=== PATIENT | female | born 1980 | race Caucasian/White ===

== ENCOUNTER 2023-05-12 13:14 | Emergency (ER) | payer OTHER, SELFPAY ==
[2023-05-12 13:31] VITALS: BP 154/104; PULSE 82; RESP 18; TEMP 36.6; O2SAT 97; BMI 54.9
--- NOTE | 2023-05-12 15:59 | ED_ITS ---
HPI - Back Pain/Injury General Chief Complaint: Back Pain/Injury Stated Complaint: BACK PAIN Time Seen by Provider: 05/12/23 15:51 Source: patient Mode of arrival: Wheelchair Limitations: no limitations History of Present Illness HPI Narrative: Patient presents to emergency department complaining of Pain. Patient states pain is worse today. Pain radiates down to the sacroiliac junction on the right side. Patient also states she has a hernia in the middle of her abdomen. She has nausea but denies any vomiting, or diarrhea. Patient has not seen a surgeon. Patient denies any hematuria, dysuria. She denies any fever, chills, cough, chest, shortness of breath. He does not radiate anywhere. She denies any rashes. She denies any trauma. She has not taking anything other than Tylenol at home for the pain. Patient has a history of chronic kidney disease. Related Data Previous Rx's Medication Instructions Recorded cyclobenzaprine 10 mg tablet 10 mg PO TID PRN muscle spasm 5 05/12/23 days #14 tabs Allergies Allergy/AdvReac Type Severity Reaction Status Date / Time Penicillins Allergy Intermediate Verified 05/12/23 13:34 Review of Systems ROS Status of ROS 10 or more systems reviewed and unremarkable except as noted in history and below Exam Narrative Exam Narrative: Nurses notes and vital signs reviewed and patient is not hypoxic. General: Nontoxic, Well-appearing and in no apparent distress. Skin: Warm, dry, no pallor noted. No Rash Head: Normocephalic, atraumatic. Neck: Supple, non-tender. Eye: Pupils are equal, round and EOMI. No scleral icterus. Ears, Nose, Mouth, and Throat: TM clear, no posterior oropharynx erythema or nasal mucosal hypertrophy, uvula is mid-line Oral mucosa is moist Cardiovascular: Regular Rate and Rhythm without murmur, gallop or rub. Respiratory: No accessory muscle use or respiratory distress. Lungs are clear to auscultation, no wheezing, rales or rhonchi Chest Wall: no tenderness Back: No midline thoracic or lumbar vertebral tenderness.Right-sided muscle spasms noted. There is no erythema, signs of trauma, infection. There is no crepitance. Range of motion is limited by pain. No CVA tenderness Musculoskeletal: normal ROM, no calf or popliteal tenderness, no lower extremity edema/swelling GI: obese, Abdomen is soft, non-distended. Normal bowel sounds. No masses appreciated. No tenderness to palpation. No rebound, guarding, or rigidity noted. Neurological: A&O x4. No cranial nerve dysfunction observed. No truncal ataxia. Moves all extremities. Sensation intact. Psychiatric: Cooperative and interactive. Normal mood and affect. Constitutional Vital Signs, click to edit/add: Last Vital Signs Temp 98 F 05/12/23 13:31 Pulse 82 05/12/23 13:31 Resp 18 05/12/23 13:31 BP 154/104 H 05/12/23 13:31 Pulse Ox 97 05/12/23 13:31 O2 Del Method Room Air 05/12/23 13:31 Course Vital Signs Vital signs: Vital Signs Temperature 98 F 05/12/23 13:31 Pulse Rate 82 05/12/23 13:31 Respiratory Rate 18 05/12/23 13:31 Blood Pressure 154/104 H 05/12/23 13:31 Pulse Oximetry 97 05/12/23 13:31 Oxygen Delivery Method Room Air 05/12/23 13:31 Temperature 98 F 05/12/23 13:31 Pulse Rate 82 05/12/23 13:31 Respiratory Rate 18 05/12/23 13:31 Blood Pressure 154/104 H 05/12/23 13:31 Pulse Oximetry 97 05/12/23 13:31 Oxygen Delivery Method Room Air 05/12/23 13:31 MDM - Back Pain/Injury MDM Narrative Medical decision making narrative: Patient had an IV established given IV fluids and analgesics. Symptoms improved. Results were discussed with patient. The patient is given a prescription for Flexeril. She is follow-up with her primary care doctor, Surgeon, and kidney doctor. At this time the patient is without objective evidence of an acute process requiring hospitalization or inpatient management. The patient has remained hemodynamically stable. No additional indication for emergent studies at this time. I answered all questions. Discussed discharge instructions including standard anticipatory guidance and what should prompt a return to the emergency department, including if they get worse are not getting better or develops any new or concerning symptoms. I've given them specific time frame in which to follow-up, and who to follow-up with. The patient demonstrates understanding. Patient is nontoxic and stable for discharge with outpatient follow-up. This note was created with the assistance of a speech recognition program. Although the intention is to generate documents that actually reflects the content of the visit, no guarantees can be provided that every mistake has been identified and corrected by editing. Lab Data Attestation: I reviewed the patient's lab results. Labs: Lab Results 05/12/23 05/12/23 Range/Units 15:59 16:20 WBC 7.1 (4.0-11.0) 10^3/uL RBC 5.12 (4.20-5.40) 10^6/uL Hgb 13.2 (12.0-16.0) g/dL Hct 41.4 (36.0-48.0) % MCV 80.9 L (81.0-99.0) fL MCH 25.8 L (26.7-34.0) pg MCHC 31.9 (29.9-35.2) g/dL RDW 15.3 H (11.0-15.0) % Plt Count 291 (150-450) 10^3/uL MPV 9.0 L (9.5-13.5) fL Neut % (Auto) 67.5 (43.0-75.0) % Lymph % (Auto) 23.2 (20.5-60.0) % [place] % (Auto) 4.2 (1.7-12.0) % Eos % (Auto) 4.1 (0.9-7.0) % Baso % (Auto) 0.7 (0.2-2.0) % Neut # (Auto) 4.8 (1.4-6.5) 10^3/uL Lymph # (Auto) 1.6 (1.2-3.8) 10^3/uL [place] # (Auto) 0.3 (0.3-0.8) 10^3/uL Eos # (Auto) 0.3 (0.0-0.7) 10^3/uL Baso # (Auto) 0.1 (0.0-0.1) 10^3/uL Abs Immat Gran (auto) 0.02 (0.00-0.03) 10^3/uL Imm/Tot Granulo (auto) 0.3 (0.0-0.5) % Sodium 137 (136-145) mmol/L Potassium 4.4 (3.5-5.1) mmol/L Chloride 103 (98-107) mmol/L Carbon Dioxide 27.3 (21.0-32.0) mmol/L Anion Gap 11.1 BUN 26.0 H (7.0-18.0) mg/dL Creatinine 2.35 H (0.55-1.02) mg/dL Est GFR ( Amer) 27 L (>=60) Est GFR (Non-Af Amer) 23 L (>=60) BUN/Creatinine Ratio 11.1 Glucose 135 H (74-106) mg/dL Calcium 9.5 (8.5-10.1) mg/dL Total Bilirubin 0.4 (0.2-1.0) mg/dL AST 20 (15-37) U/L ALT 35 (14-59) U/L Alkaline Phosphatase 80 (46-116) U/L Total Protein 8.4 H (6.4-8.2) g/dL Albumin 4.0 (3.4-5.0) g/dL Globulin 4.4 g/dL Albumin/Globulin Ratio 0.9 Urine Color Yellow (YELLOW) Urine Clarity Clear (CLEAR) Urine pH 5.5 (5.0-9.0) Ur Specific [place] 1.025 (1.005-1.025) Urine Protein >=300 A (NEG/TRACE) mg/dL Urine Glucose (UA) Negative (NEGATIVE) mg/dL Urine Ketones Negative (NEGATIVE) mg/dL Urine Occult Blood Negative (NEGATIVE) Urine Nitrite Negative (NEGATIVE) Urine Bilirubin Negative (NEGATIVE) Urine Urobilinogen 0.2 (0.2-1.0) EU/dL Ur Leukocyte Esterase Negative (NEGATIVE) Urine RBC 0-2 (0-2) #/HPF Urine WBC 0-2 A (NONE SEEN) #/HPF Ur Squamous Epith Cells Rare (NONE/RARE) #/LPF Urine Crystals None seen (None Seen) #/HPF Urine Bacteria Trace A (NONE SEEN) #/HPF Urine Casts None seen (NONE SEEN) #/LPF Urine Mucus None seen (NONE SEEN) Ur Culture Indicated? No Discharge Plan Discharge Chief Complaint: Back Pain/Injury Clinical Impression: Back pain, Ventral hernia, Chronic kidney disease (CKD) Patient Disposition: Home, Self-Care Time of Disposition Decision: 17:34 Condition: Good Mode of Transportation: Private Vehicle Prescriptions / Home Meds: New cyclobenzaprine 10 mg tablet 10 mg PO TID PRN (Reason: muscle spasm) 5 Days Qty: 14 0RF Instructions: Chronic Kidney Disease (ED), Flank Pain (ED) Stand Alone Forms: Portal Instructions Referrals: JAYESH DAVE [Primary Care Provider] - 1 week Discharge Date/Time: 05/12/23 17:57
--- NOTE | 2023-05-12 16:01 | CT_ITS ---
[address] [address] Patient Name: GUERRERO LEON MRN: [id number] date: 1980 Sex: F Assigned Patient Location: ER Current Patient Location: ER Accession/Order Number: [id number] Exam Date: 05/12/2023 16:22 Report Date: 05/12/2023 16:56 At the request of: KAIA MCDANIELS Procedure: CT abdomen pelvis wo con EXAMINATION: CT abdomen pelvis wo con, 05/12/2023 4:22 PM EDT HISTORY: abd pain, r flank pain COMPARISON: None. TECHNIQUE: CT scan of the abdomen and pelvis was performed without IV contrast. CT dose reduction technique was used, including Automated Exposure Control. FINDINGS: LOWER CHEST: The visualized lungs are clear. LIVER: There is hepatomegaly and diffuse hepatic steatosis. GALLBLADDER AND BILIARY SYSTEM: Status post cholecystectomy. SPLEEN: 13.3 cm in craniocaudal dimension. PANCREAS: Mild diffuse atrophy of the pancreas. No pancreatic ductal dilatation. ADRENAL GLANDS: Unremarkable. KIDNEYS AND URETERS: Severe atrophy of the left kidney. Moderate to severe atrophy of the right kidney. Both kidneys have a lobulated appearance with multiple lesions which are not adequately characterized on this study. There is a 1.5 cm lesion in the right kidney with peripheral calcification. No ureteral calculus. No hydronephrosis. There is a 2 mm nonobstructing calculus in the left kidney. BLADDER: Under distended. GASTROINTESTINAL TRACT: No evidence of bowel obstruction or colitis. Normal appendix. VASCULATURE: The abdominal aorta is normal in caliber. RETROPERITONEUM: No lymphadenopathy. PERITONEUM/MESENTERY: No abdominal ascites. No free air. PELVIS: No pelvic ascites or lymphadenopathy. BODY WALL: There is a large upper abdominal ventral hernia containing a portion of the transverse colon and small bowel loops. Small to moderate supraumbilical ventral hernia containing fat. There is a large umbilical hernia containing fat and nonobstructed loops of small bowel. BONES: No acute abnormality. CT/CT abdomen pelvis wo con IMPRESSION: 1. Ventral hernias as described. No evidence of bowel obstruction. 2. Nonobstructing 2 mm calculus in the left kidney. Bilateral renal atrophy. 3. Hepatomegaly and diffuse hepatic steatosis. 4. Splenomegaly. Electronically authenticated by: MARIA DEL ROSARIO HERNANDEZ Date: 05/12/2023 16:56
--- NOTE | 2023-05-12 16:01 | PC.NURSE ---
Patient here with multiple complaints. Patient c/o left sided back pain and pain at her hernia. patient states her surgeon will not fix the hernia until she loses weight. patient also states she has vertigo all the time, to where i can barely walk, but was able to drive self here.
[2023-05-12] MEDS: MORPHINE SULFATE 4 MG/ML VIAL IV (16:13)
[2023-05-12 16:27] LABS: Bilirubin Urine NEGATIVE (NEGATIVE); Blood Urine NEGATIVE (NEGATIVE); Clarity Urine CLEAR (CLEAR); Color Urine YELLOW (YELLOW); Glucose Urine UA NEGATIVE (NEGATIVE); Ketones Urine NEGATIVE (NEGATIVE); Leukocyte Esterase Urine NEGATIVE (NEGATIVE); Nitrite Urine NEGATIVE (NEGATIVE); Protein Urine >=300 mg/dL (NEG/TRACE); Specific Gravity Urine 1.025 (1.005-1.025); Urobilinogen Urine 0.2 EU/dL (0.2-1.0); pH Urine 5.5 (5.0-9.0)
[2023-05-12 16:28] LABS: Urine Microscopic Indicated YES
[2023-05-12 16:30] LABS: Basophils Absolute Auto 0.1 10^3/uL (0.0-0.1); Basophils Percent Auto 0.7 % (0.2-2.0); Eosinophils Absolute Auto 0.3 10^3/uL (0.0-0.7); Eosinophils Percent Auto 4.1 % (0.9-7.0); Hematocrit 41.4 % (36.0-48.0); Hemoglobin 13.2 g/dL (12.0-16.0); Immature Granulocytes Abs Auto 0.02 10^3/uL (0.00-0.03); Immature Granulocytes Pct Auto 0.3 % (0.0-0.5); Lymphocytes Absolute Auto 1.6 10^3/uL (1.2-3.8); Lymphocytes Percent Auto 23.2 % (20.5-60.0); Mean Corpuscular HGB Conc 31.9 g/dL (29.9-35.2); Mean Corpuscular Hemoglobin 25.8 pg (26.7-34.0); Mean Corpuscular Volume 80.9 fL (81.0-99.0); Monocytes Absolute Auto 0.3 10^3/uL (0.3-0.8); Monocytes Percent Auto 4.2 % (1.7-12.0); Neutrophils Absolute Auto 4.8 10^3/uL (1.4-6.5); Neutrophils Percent Auto 67.5 % (43.0-75.0); Platelet Count 291 10^3/uL (150-450); Red Blood Count 5.12 10^6/uL (4.20-5.40); Red Cell Distribution Width 15.3 % (11.0-15.0); White Blood Count 7.1 10^3/uL (4.0-11.0)
[2023-05-12 16:37] LABS: Bacteria Urine TRACE #/HPF (NONE SEEN); Cast Seen? NONE SEEN #/LPF (NONE SEEN); Crystals Seen? None Seen #/HPF (None Seen); Mucus Urine NONE SEEN (NONE SEEN); RBC Urine 0-2 #/HPF (0-2); Squamous Epithelial Cell Urine RARE #/LPF (NONE/RARE); Urine Culture Indicated NO; WBC Urine 0-2 #/HPF (NONE SEEN)
[2023-05-12 16:42] LABS: Alanine Aminotransferase 35 U/L (14-59); Albumin Globulin Ratio 0.9; Alkaline Phosphatase 80 U/L (46-116); Anion Gap 11.1; Aspartate Amino Transferase 20 U/L (15-37); BUN Creatinine Ratio 11.1; Bilirubin Total 0.4 mg/dL (0.2-1.0); Calcium 9.5 mg/dL (8.5-10.1); Carbon Dioxide 27.3 mmol/L (21.0-32.0); Chloride 103 mmol/L (98-107); Estimated GFR (African America 27 (>=60); Estimated GFR (Non-African Ame 23 (>=60); Globulin 4.4 g/dL; Glucose 135 mg/dL (74-106); Potassium 4.4 mmol/L (3.5-5.1); Sodium 137 mmol/L (136-145); Total Protein 8.4 g/dL (6.4-8.2)
== END 2023-05-12 17:57 | disposition home or self-care (01) ==
PROVIDERS: Emergency Provider Emergency Medicine; PCP Internal Medicine
DX: M54.9 Dorsalgia, unspecified (principal); K43.9 Ventral hernia without obstruction or gangrene; N18.9 Chronic kidney disease, unspecified
CPT/HCPCS: 36415; 74176; 80053; 81003; 81015; 85025; 96374; 99285

== ENCOUNTER 2023-06-23 15:48 | Emergency (ER) | payer OTHER, SELFPAY ==
[2023-06-23 15:53] VITALS: BP 138/86; PULSE 76; RESP 20; TEMP 36.4; BMI 55.7
--- NOTE | 2023-06-23 16:00 | CT_ITS ---
[address] [address] Patient Name: GUERRERO LEON MRN: [id number] date: 1980 Sex: F Assigned Patient Location: ER Current Patient Location: Accession/Order Number: [id number] Exam Date: 06/23/2023 16:25 Report Date: 06/23/2023 17:19 At the request of: MIGUEL ÁNGEL ALVARENGA Procedure: CT abdomen pelvis wo con EXAM: CT abdomen pelvis wo con Comparison: 05/12/2023 CLINICAL INDICATION: Right flank pain, kidney stone. TECHNIQUE: Axial images through the abdomen and pelvis were obtained without intravenous contrast. Coronal and sagittal reconstructions were obtained. Dose reduction techniques were achieved by using automated exposure control and/or adjustment of mA and/or kV according to patient size and/or use of iterative reconstruction technique. FINDINGS: Please note that evaluation of the viscera/vascular structures, and sensitivity for detection of focal lesions, is limited without intravenous contrast. LOWER CHEST: The visualized portions of the lung bases are clear. LIVER: Hepatic steatosis and hepatomegaly up to 21 cm again seen. GALLBLADDER: Prior cholecystectomy. BILE DUCTS: Unremarkable. PANCREAS: Unremarkable. SPLEEN: Splenomegaly up to 14.5 cm again seen. ADRENALS: Unremarkable. KIDNEYS/URETERS: Severe atrophy of the left kidney and moderate atrophy of the right kidney again seen. Areas of chronic cortical scarring again seen. Punctate 2 mm nonobstructing left kidney stone. Unchanged small right kidney lesion with associated small peripheral calcification. No ureteral stones. No hydronephrosis. BLADDER: Bladder is incompletely distended and not well evaluated. No bladder stones. PELVIC STRUCTURES: Unremarkable. GI TRACT: Evaluation of bowel limited by fecal contents and lack of distention. No evidence of bowel obstruction. Normal appendix. Nonspecific diffuse gaseous distention of the colon and to a lesser extent small bowel with scattered air-fluid levels, may suggest ileus. VASCULAR STRUCTURES: Unremarkable. LYMPH NODES: No pathologic lymphadenopathy by CT size criteria. PERITONEUM: No free air. No abscess. SOFT TISSUES: Large upper abdominal ventral hernia again seen containing a portion of the transverse colon and small bowel loops. Supraumbilical fat-containing ventral hernia formation again seen. Large umbilical hernia containing loops of bowel again seen. No evidence of bowel obstruction. OSSEOUS STRUCTURES: No acute osseous abnormality. No suspicious osseous lesions. 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 CT/CT abdomen pelvis wo con IMPRESSION: 1. Ventral hernias containing loops of small and large bowel again seen as described above. No evidence of bowel obstruction. 2. Nonobstructing 2 mm left kidney stone again seen. Left more severe than right renal atrophy and bilateral cortical scarring again seen. No evidence of obstructive uropathy. 3. Unchanged small right kidney lesion with associated small peripheral calcification. 4. Hepatosplenomegaly and hepatic steatosis again seen. 5. Normal appendix. 6. Nonspecific diffuse gaseous distention of the colon and to a lesser extent small bowel with scattered air-fluid levels, may suggest ileus. Electronically authenticated by: CARON OREILLY Date: 06/23/2023 17:19
--- NOTE | 2023-06-23 16:06 | ED_ITS ---
HPI - General Adult General Chief complaint: Abdominal Pain Stated complaint: RT FLANK PAIN Time Seen by Provider: 06/23/23 15:49 Source: patient Mode of arrival: Wheelchair Limitations: no limitations History of Present Illness HPI narrative: patient is a 42-year-old female presents to the emergency department for the evaluation of right flank pain that began today. She reports nausea and diarrhea but no vomiting. She denies urinary symptoms. She has had a previous cholecystectomy and previous colon resection secondary to colon cancer. She does not receive any other treatment for this. She has a ventral hernia that has not been surgically repaired. She has had no other upper respiratory symptoms. She denies any pain to the middlee the back. She is not concerned for and has had a previous Essure procedure. Related Data Previous Rx's Medication Instructions Recorded cyclobenzaprine 10 mg tablet 10 mg PO TID PRN muscle spasm 5 05/12/23 days #14 tabs dicyclomine 20 mg tablet 20 mg PO QID PRN abdominal pain 06/23/23 #12 tabs ondansetron 4 mg disintegrating 4 mg PO Q6H PRN nausea and 06/23/23 tablet vomiting #12 tabs Allergies Allergy/AdvReac Type Severity Reaction Status Date / Time Penicillins Allergy Intermediate Verified 05/12/23 13:34 Review of Systems ROS Constitutional Denies: fever or chills Ears, nose, mouth, and throat Denies: throat pain or neck pain Cardiovascular Denies: chest pain Respiratory Denies: shortness of breath or cough Gastrointestinal Reports: abdominal pain, nausea and diarrhea; Denies: vomiting Genitourinary Denies: painful urination or urinary frequency Musculoskeletal Denies: back pain or neck pain Endocrine Denies: excessive urination PFSH PFSH Social History Smoking status: Never smoker Exam Narrative Exam Narrative: Gen.: Awake, alert, in no distress Head: Normocephalic, atraumatic ENT: Moist mucous membranes Respiratory: No respiratory distress Gastrointestinal: abdomen is soft and obese, diffusely mildly tender to palpation in the right lateral abdomen with no guarding or rebound Extremities: Moves extremities equally Psych: Normal mood and affect Neuro: No focal neuro deficit Skin: Warm, dry, intact Constitutional Vital Signs, click to edit/add: Last Vital Signs Temp 97.6 F 06/23/23 15:53 Pulse 76 06/23/23 15:53 Resp 20 06/23/23 15:53 BP 138/86 06/23/23 15:53 O2 Del Method Room Air 06/23/23 15:53 Course Vital Signs Vital signs: Vital Signs Temperature 97.6 F 06/23/23 15:53 Pulse Rate 76 06/23/23 15:53 Respiratory Rate 20 06/23/23 15:53 Blood Pressure 138/86 06/23/23 15:53 Oxygen Delivery Method Room Air 06/23/23 15:53 Temperature 97.6 F 06/23/23 15:53 Pulse Rate 76 06/23/23 15:53 Respiratory Rate 20 06/23/23 15:53 Blood Pressure 138/86 06/23/23 15:53 Oxygen Delivery Method Room Air 06/23/23 15:53 Medical Decision Making MDM Narrative Medical decision making narrative: patient with plans to drive herself up from the emergency department. She was treated with IV fluids, Zofran, Levsin. Lab studies are stable, improved from previous kidney function one month ago. Urine with no evidence of infection. CT scan shows nonobstructive bowel gas pattern. No other acute abnormalities with chronic incidental findings. Patient will be discharged home on a clear liquid diet, Zofran and Bentyl given for home. Follow-up with PCP and return to the Emergency Room if symptoms change or worsen. Medical Records Medical records reviewed: Yes I reviewed the patient's medical records Lab Data Lab results reviewed: Yes I reviewed the patient's lab results Labs: Lab Results 06/23/23 06/23/23 Range/Units 16:07 16:11 WBC 5.7 (4.0-11.0) 10^3/uL RBC 4.79 (4.20-5.40) 10^6/uL Hgb 12.5 (12.0-16.0) g/dL Hct 38.6 (36.0-48.0) % MCV 80.6 L (81.0-99.0) fL MCH 26.1 L (26.7-34.0) pg MCHC 32.4 (29.9-35.2) g/dL RDW 14.4 (11.0-15.0) % Plt Count 201 (150-450) 10^3/uL MPV 9.0 L (9.5-13.5) fL Neut % (Auto) 63.7 (43.0-75.0) % Lymph % (Auto) 25.2 (20.5-60.0) % [place] % (Auto) 5.9 (1.7-12.0) % Eos % (Auto) 4.4 (0.9-7.0) % Baso % (Auto) 0.5 (0.2-2.0) % Neut # (Auto) 3.6 (1.4-6.5) 10^3/uL Lymph # (Auto) 1.4 (1.2-3.8) 10^3/uL [place] # (Auto) 0.3 (0.3-0.8) 10^3/uL Eos # (Auto) 0.3 (0.0-0.7) 10^3/uL Baso # (Auto) 0.0 (0.0-0.1) 10^3/uL Abs Immat Gran (auto) 0.02 (0.00-0.03) 10^3/uL Imm/Tot Granulo (auto) 0.3 (0.0-0.5) % Sodium 135 L (136-145) mmol/L Potassium 4.1 (3.5-5.1) mmol/L Chloride 106 (98-107) mmol/L Carbon Dioxide 26.6 (21.0-32.0) mmol/L Anion Gap 6.5 BUN 24.0 H (7.0-18.0) mg/dL Creatinine 2.02 H (0.55-1.02) mg/dL Est GFR ( Amer) 33 L (>=60) Est GFR (Non-Af Amer) 27 L (>=60) BUN/Creatinine Ratio 11.9 Glucose 172 H (74-106) mg/dL Lactate 0.8 (0.4-2.0) mmol/L Calcium 9.4 (8.5-10.1) mg/dL Total Bilirubin 0.3 (0.2-1.0) mg/dL AST 18 (15-37) U/L ALT 30 (14-59) U/L Alkaline Phosphatase 70 (46-116) U/L Total Protein 7.2 (6.4-8.2) g/dL Albumin 3.3 L (3.4-5.0) g/dL Globulin 3.9 g/dL Albumin/Globulin Ratio 0.8 Lipase 109.0 (73.0-393.0) U/L Serum HCG, Qual Negative (NEGATIVE) Urine Color Lt. yellow (YELLOW) Urine Clarity Clear (CLEAR) Urine pH 6.0 (5.0-9.0) Ur Specific [place] 1.025 (1.005-1.025) Urine Protein >=300 A (NEG/TRACE) mg/dL Urine Glucose (UA) Negative (NEGATIVE) mg/dL Urine Ketones Negative (NEGATIVE) mg/dL Urine Occult Blood Trace-i (NEGATIVE) Urine Nitrite Negative (NEGATIVE) Urine Bilirubin Negative (NEGATIVE) Urine Urobilinogen 0.2 (0.2-1.0) EU/dL Ur Leukocyte Esterase Negative (NEGATIVE) Urine RBC None seen (0-2) #/HPF Urine WBC None seen (NONE SEEN) #/HPF Ur Squamous Epith Cells Few A (NONE/RARE) #/LPF Urine Crystals None seen (None Seen) #/HPF Urine Bacteria None seen (NONE SEEN) #/HPF Urine Casts Seen A (NONE SEEN) #/LPF Fine Granular Casts Rare Urine Mucus None seen (NONE SEEN) Ur Culture Indicated? No Imaging Data CT scan - abdomen: Attestation: I have reviewed the pertinent imaging results. Radiologist's impression: Procedure: CT abdomen pelvis wo con EXAM: CT abdomen pelvis wo con Comparison: 05/12/2023 CLINICAL INDICATION: Right flank pain, kidney stone. TECHNIQUE: Axial images through the abdomen and pelvis were obtained without intravenous contrast. Coronal and sagittal reconstructions were obtained. Dose reduction techniques were achieved by using automated exposure control and/or adjustment of mA and/or kV according to patient size and/or use of iterative reconstruction technique. FINDINGS: Please note that evaluation of the viscera/vascular structures, and sensitivity for detection of focal lesions, is limited without intravenous contrast. LOWER CHEST: The visualized portions of the lung bases are clear. LIVER: Hepatic steatosis and hepatomegaly up to 21 cm again seen. GALLBLADDER: Prior cholecystectomy. BILE DUCTS: Unremarkable. PANCREAS: Unremarkable. SPLEEN: Splenomegaly up to 14.5 cm again seen. ADRENALS: Unremarkable. KIDNEYS/URETERS: Severe atrophy of the left kidney and moderate atrophy of the right kidney again seen. Areas of chronic cortical scarring again seen. Punctate 2 mm nonobstructing left kidney stone. Unchanged small right kidney lesion with associated small peripheral calcification. No ureteral stones. No hydronephrosis. BLADDER: Bladder is incompletely distended and not well evaluated. No bladder stones. PELVIC STRUCTURES: Unremarkable. GI TRACT: Evaluation of bowel limited by fecal contents and lack of distention. No evidence of bowel obstruction. Normal appendix. Nonspecific diffuse gaseous distention of the colon and to a lesser extent small bowel with scattered air-fluid levels, may suggest ileus. VASCULAR STRUCTURES: Unremarkable. LYMPH NODES: No pathologic lymphadenopathy by CT size criteria. PERITONEUM: No free air. No abscess. SOFT TISSUES: Large upper abdominal ventral hernia again seen containing a portion of the transverse colon and small bowel loops. Supraumbilical fat-containing ventral hernia formation again seen. Large umbilical hernia containing loops of bowel again seen. No evidence of bowel obstruction. OSSEOUS STRUCTURES: No acute osseous abnormality. No suspicious osseous lesions. 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 IMPRESSION: 1. Ventral hernias containing loops of small and large bowel again seen as described above. No evidence of bowel obstruction. 2. Nonobstructing 2 mm left kidney stone again seen. Left more severe than right renal atrophy and bilateral cortical scarring again seen. No evidence of obstructive uropathy. 3. Unchanged small right kidney lesion with associated small peripheral calcification. 4. Hepatosplenomegaly and hepatic steatosis again seen. 5. Normal appendix. 6. Nonspecific diffuse gaseous distention of the colon and to a lesser extent small bowel with scattered air-fluid levels, may suggest ileus. Electronically authenticated by: CARON OREILLY Date: 06/23/2023 17:19 Discharge Plan Discharge Chief Complaint: Abdominal Pain Clinical Impression: Abdominal pain, Nausea Patient Disposition: Home, Self-Care Time of Disposition Decision: 17:24 Condition: Good Prescriptions / Home Meds: New dicyclomine 20 mg tablet 20 mg PO QID PRN (Reason: abdominal pain) Qty: 12 0RF ondansetron 4 mg tablet,disintegrating 4 mg PO Q6H PRN (Reason: nausea and vomiting) Qty: 12 0RF No Action cyclobenzaprine 10 mg tablet 10 mg PO TID PRN (Reason: muscle spasm) 5 Days Qty: 14 0RF Instructions: Clear Liquid Diet (ED), Acute Nausea and Vomiting (ED), Abdominal Pain (ED) Stand Alone Forms: Portal Instructions Referrals: JAYESH DAVE [Primary Care Provider] - 1 week
[2023-06-23 16:17] LABS: Bilirubin Urine NEGATIVE (NEGATIVE); Blood Urine TRACE-I (NEGATIVE); Clarity Urine CLEAR (CLEAR); Color Urine LT. YELLOW (YELLOW); Glucose Urine UA NEGATIVE (NEGATIVE); Ketones Urine NEGATIVE (NEGATIVE); Leukocyte Esterase Urine NEGATIVE (NEGATIVE); Nitrite Urine NEGATIVE (NEGATIVE); Protein Urine >=300 mg/dL (NEG/TRACE); Specific Gravity Urine 1.025 (1.005-1.025); Urobilinogen Urine 0.2 EU/dL (0.2-1.0)
[2023-06-23 16:18] LABS: Basophils Percent Auto 0.5 % (0.2-2.0); Eosinophils Absolute Auto 0.3 10^3/uL (0.0-0.7); Eosinophils Percent Auto 4.4 % (0.9-7.0); Hematocrit 38.6 % (36.0-48.0); Hemoglobin 12.5 g/dL (12.0-16.0); Immature Granulocytes Abs Auto 0.02 10^3/uL (0.00-0.03); Immature Granulocytes Pct Auto 0.3 % (0.0-0.5); Lymphocytes Absolute Auto 1.4 10^3/uL (1.2-3.8); Lymphocytes Percent Auto 25.2 % (20.5-60.0); Mean Corpuscular HGB Conc 32.4 g/dL (29.9-35.2); Mean Corpuscular Hemoglobin 26.1 pg (26.7-34.0); Mean Corpuscular Volume 80.6 fL (81.0-99.0); Monocytes Absolute Auto 0.3 10^3/uL (0.3-0.8); Monocytes Percent Auto 5.9 % (1.7-12.0); Neutrophils Absolute Auto 3.6 10^3/uL (1.4-6.5); Neutrophils Percent Auto 63.7 % (43.0-75.0); Platelet Count 201 10^3/uL (150-450); Red Blood Count 4.79 10^6/uL (4.20-5.40); Red Cell Distribution Width 14.4 % (11.0-15.0); White Blood Count 5.7 10^3/uL (4.0-11.0)
[2023-06-23 16:19] LABS: Urine Microscopic Indicated YES
[2023-06-23 16:23] LABS: Bacteria Urine NONE SEEN #/HPF (NONE SEEN); Cast Seen? SEEN #/LPF (NONE SEEN); Crystals Seen? None Seen #/HPF (None Seen); Mucus Urine NONE SEEN (NONE SEEN); RBC Urine NONE SEEN #/HPF (0-2); Squamous Epithelial Cell Urine FEW #/LPF (NONE/RARE); WBC Urine NONE SEEN #/HPF (NONE SEEN)
[2023-06-23 16:24] LABS: Fine Granular Casts Urine RARE; Urine Culture Indicated NO
[2023-06-23 16:30] LABS: HCG Qualitative NEGATIVE (NEGATIVE)
[2023-06-23 16:31] LABS: Alanine Aminotransferase 30 U/L (14-59); Albumin Globulin Ratio 0.8; Albumin Level 3.3 g/dL (3.4-5.0); Alkaline Phosphatase 70 U/L (46-116); Anion Gap 6.5; Aspartate Amino Transferase 18 U/L (15-37); BUN Creatinine Ratio 11.9; Bilirubin Total 0.3 mg/dL (0.2-1.0); Calcium 9.4 mg/dL (8.5-10.1); Carbon Dioxide 26.6 mmol/L (21.0-32.0); Chloride 106 mmol/L (98-107); Estimated GFR (African America 33 (>=60); Estimated GFR (Non-African Ame 27 (>=60); Globulin 3.9 g/dL; Glucose 172 mg/dL (74-106); Potassium 4.1 mmol/L (3.5-5.1); Sodium 135 mmol/L (136-145); Total Protein 7.2 g/dL (6.4-8.2)
[2023-06-23 16:33] LABS: Lactate/Lactic Acid 0.8 mmol/L (0.4-2.0)
[2023-06-23] MEDS: HYOSCYAMINE SULFATE 0.125 MG TAB.SUBL SL (17:10)
[2023-06-23] MEDS: ONDANSETRON PF 4 MG/2 ML VIAL IV (17:10)
[2023-06-23] MEDS: 0.9 % SODIUM CHLORIDE 1,000 ML 999 ML IV (17:11)
== END 2023-06-23 18:29 | disposition home or self-care (01) ==
PROVIDERS: Physician Assistant; Emergency Provider Emergency Medicine Emergency Medical Services; PCP Internal Medicine
DX: R10.9 Unspecified abdominal pain (principal); R11.0 Nausea; Z90.49 Acquired absence of other specified parts of digestive tract; Z85.038 Personal history of other malignant neoplasm of large intestine
CPT/HCPCS: 36415; 74176; 80053; 81001; 83605; 83690; 84703; 85025; 96374; 99285

== ENCOUNTER 2025-03-04 12:12 | Outpatient (OUT) | payer OTHER, SELFPAY ==
[2025-03-04 12:36] LABS: Hematocrit 36.5 % (36.0-48.0); Hemoglobin 11.3 g/dL (12.0-16.0); Mean Corpuscular Volume 77.7 fL (81.0-99.0); Mean Platelet Volume 9.1 fL (9.5-13.5); Platelet Count 293 10^3/uL (150-450); Red Cell Distribution Width 15.1 % (11.0-15.0); White Blood Count 5.6 10^3/uL (4.0-11.0)
[2025-03-04 12:44] LABS: Bilirubin Urine NEGATIVE (NEGATIVE); Blood Urine NEGATIVE (NEGATIVE); Clarity Urine CLEAR (CLEAR); Color Urine LT. YELLOW (YELLOW); Glucose Urine UA >=1000 mg/dL (NEGATIVE); Ketones Urine NEGATIVE (NEGATIVE); Leukocyte Esterase Urine NEGATIVE (NEGATIVE); Nitrite Urine NEGATIVE (NEGATIVE); Protein Urine 30 mg/dL (NEG/TRACE); Specific Gravity Urine <=1.005 (1.005-1.025); Urobilinogen Urine 0.2 EU/dL (0.2-1.0)
[2025-03-04 12:51] LABS: Bacteria Urine SMALL #/HPF (NONE SEEN); RBC Urine 0-2 #/HPF (0-2); WBC Urine 0-2 #/HPF (NONE SEEN)
[2025-03-04 12:52] LABS: Cast Seen? NONE SEEN #/LPF (NONE SEEN); Crystals Seen? None Seen #/HPF (None Seen); Mucus Urine NONE SEEN (NONE SEEN); Squamous Epithelial Cell Urine MANY #/LPF (NONE/RARE)
[2025-03-04 13:13] LABS: Albumin Level 3.3 g/dL (3.4-5.0); Anion Gap 9.5; BUN Creatinine Ratio 13.7; Calcium 9.1 mg/dL (8.5-10.1); Carbon Dioxide 28.3 mmol/L (21.0-32.0); Chloride 101 mmol/L (98-107); Estimated GFR (African America 19 (>=60 mL/min/1.73m^2); Estimated GFR (Non-African Ame 16 (>=60 mL/min/1.73m^2); Glucose 238 mg/dL (74-106); Magnesium 1.9 mg/dL (1.8-2.4); Phosphorus 3.9 mg/dL (2.6-4.7); Potassium 3.8 mmol/L (3.5-5.1); Sodium 135 mmol/L (136-145)
[2025-03-04 13:34] LABS: Creatinine Urine Random 56.63 mg/dL (20.00-300.00); Protein Creatinine Ratio Urine 1.08; Total Protein Urine Random 61.3 mg/dL (<=11.9)
[2025-03-05 12:08] LABS: PTH, Intact 103 pg/mL (15-65)
[2025-03-06 14:11] LABS: Albumin 3.6 g/dL (2.9-4.4); Alpha-1-Globulin 0.2 g/dL (0.0-0.4); Alpha-2-Globulin 0.8 g/dL (0.4-1.0); Free Kappa Lt Chains,S 65.2 mg/L (3.3-19.4); Free Lambda Lt Chains,S 39.5 mg/L (5.7-26.3); Gamma Globulin 0.9 g/dL (0.4-1.8); Immunoglobulin A, Qn, Serum 316 mg/dL (87-352); Immunoglobulin G, Qn, Serum 974 mg/dL (586-1602); Immunoglobulin M, Qn, Serum 66 mg/dL (26-217); Kappa/Lambda Ratio,S 1.65 (0.26-1.65); Protein, Total 6.6 g/dL (6.0-8.5)
== END 2025-03-04 12:13 | disposition home or self-care (01) ==
PROVIDERS: PCP Nurse Practitioner; Visit Provider Internal Medicine
DX: R80.9 Proteinuria, unspecified (principal); N20.0 Calculus of kidney; E78.5 Hyperlipidemia, unspecified; N25.81 Secondary hyperparathyroidism of renal origin; N18.9 Chronic kidney disease, unspecified; D63.1 Anemia in chronic kidney disease
CPT/HCPCS: 36415; 80069; 81001; 82306; 82570; 82784; 83521; 83735; 83970; 84155; 84156; 84165; 84166; 84550; 85027; 86334; 86335

== ENCOUNTER 2025-06-09 12:28 | Outpatient (OUT) | payer OTHER, SELFPAY ==
--- OUTSIDE RECORDS SUMMARY | 2025-06-09 12:33 | XMS_ITS | Encounter Summary ---
Author Organization [employer] Address [id number] [address] [place] [address] Care Team Providers Care Supervisor Furnace Process Name Role Phone Amina Holcomb LAWYER-ECONOMIC ANALYST Primary Care Provider + Encounter Details Date Type Department Care Team (Late st Contact Info) Description 03/03/2025 Telephone [facility] Internal Medicine - Family Medicine [address] [place] [address] Leda Perez CMA Social History Tobacco Use Types Packs/Day Years Used Date Smoking Tobacco: Never Smokeless Tobacco: Never Alcohol Use Standard Drinks/Week Comments No 0 (1 standard drink = 0.6 oz pur e alcohol) PHQ-2 Answer Date Recorded Total Score 0 03/04/2025 Childcare Answer Date Recorded Childcare Unknown 04/09/2019 Employment Answer Date Recorded Employment Unknown 04/09/2019 Hunger Screening Answer Date Recorded Within the past 12 months we worried whether our food would run out before we got money to buy more. Never True 03/04/2025 Within the past 12 months th e food we bought just didn't last and we didn't have money to get more. Never True 03/04/2025 Purpose - Life Answer Date Recorded Purpose and direction in life Unknown Comments Unknown Sex and Gender Information Value Date Recorded Sex Assigned at Not on file Legal Sex Female 11:39 AM EDT Gender Identity Not on file Sexual Orientation Not on file documented as of this encounter Miscellaneous Notes * Telephone Encounter - Leda Perez CMA - 03/03/2025 1:10 PM EDT Marin called wanting to know that your aware that you have the pt on 2 medications for bladder ? The myrbetriq and toterodine * Telephone Encounter - ALESSIO Parsons - 03/03/2025 1:10 PM EDT Yes, she has been on both for years. documented in this encounter Plan of Treatment Upcoming Encounters Date Type Department Care Team (Late st Contact Info) Description 07/17/2025 9:20 AM EDT Office Visit [facility] - Family Medicine [address] [place] [address] Amina Holcomb APRN-CNP [address] [place] [address] documented as of this encounter Visit Diagnoses Not on filedocumented in this encounter Additional Health Concerns Assessment Noted Time PHQ-9 Depression Total Score: 0 02/18/20 9:34 AM EDT A Body Mass Index follow-up plan has been documented for the patient 02/17/2025 10:09 AM EDT documented as of this encounter Care Teams Supervisor Furnace Process Relationship Specialty Start Date End Date Amina Holcomb APRN-CNP [address] [place] [address] PCP - General Family Medicine 04/24/25 documented as of this encounter
--- OUTSIDE RECORDS SUMMARY | 2025-06-09 12:33 | XMS_ITS | Patient Health Record ---
Author Organization [facility] Address [address] [place] [address] [place] [address] Care Team Providers Care Sales Support Associate Name Role Phone Aleksandr Phan Unavailable [phone] Allergies Allergen (clinical drug ingredient) Drug/Non Drug Allergy documented on EMR Reaction Allergy Type Onset Date Status penicillin V Penicillin V Potassium Unknown Drug Allergy Active Reason For Referral No Information Medications Medication SIG (Take, Route, Fr equency, Duration) Notes Start Date End Date Status Thyroid Active Zoloft 50 MG 1 tablet Orally Once a day Active Nefazodone HCl 100 MG 2 tablets Orally Twice a day Active Social History Tobacco Use: Social History Observation Description Date Details (start date - stop date) Never Smoker NA - NA tobacco use Question Answer Notes Patient is a: non smoker Problems Problem Type SNOMED Code ICD Code Onset Dates Problem Status W/U Status Risk Notes Problem Pain in left foot (26107228649 9107) Pain in left foot (M79.672) Active confirmed Problem Sprain of left ankle ([id number] [id number]) Sprain of other ligament of left ankle, initial encounter (S93.492A) Active confirmed Plan Of Treatment No Information Insurance Providers Payer Name Payer Address Payer Phone Subscriber Number Group Number Insured Name Patient Relationship to Insured Coverage Start Date Coverage End Date [employer] [address] [place] [address] [id number] Carina Ramos Self - patient is the insured Medical (General) History Medical History History ICD Code thyroid disease vertigo Surgical History Surgery Date(Month/Year) gallbladder 2013 Hospitalization History Reason Date(Month/Year) lgallbladder 2013
--- OUTSIDE RECORDS SUMMARY | 2025-06-09 12:33 | XMS_ITS | Encounter Summary ---
Author Organization [facility] Address [address] [place] [address] Care Team Providers Care Skein Yard Drier Name Role Phone Dawood Clemente Unavailable [phone] Haley Melgar Unavailable Source Comments In the event this information is protected by the Federal Confidentiality of Alcohol and Drug AbusePatient Records regulations: The Federal rules restrict any use of the information to criminally investigate or prosecute any alcohol or drug abuse patient.[facility] Encounter Details Date Type Department Care Team (Late st Contact Info) Description 04/10/2024 Patient Msg General Surgery [address] [place], [place] [id number] Provider, [facility] BMI appointment reminder Social History Tobacco Use Types Packs/Day Years Used Date Smoking Tobacco: Never Smokeless Tobacco: Never Area Deprivation Index Answer Date Kvng rded National Score (1-100), lower number is lower ri sk 88 04/10/2024 State Score (1-10), lower number is lower risk 8 04/10/2024 Data from: https://www.neighborhoodatlas.medicine.[facility].edu/. Last address used for calculation [address] [place] [address] 04/10/2024 Comments No Sex and Gender Information Value Date Recorded Sex Assigned at Not on file Legal Sex Female 10:36 AM EDT Gender Identity Not on file Sexual Orientation Not on file documented as of this encounter Plan of Treatment Not on file documented as of this encounter Visit Diagnoses Not on filedocumented in this encounter Care Teams Skein Yard Drier Relationship Specialty Start Date End Date Dawood Clemente [address] [place] [address] [place] [address] Referring General Surgery 03/07/24 Allison Melgar MD [address] [place] [address] Referring Internal Medicine 04/06/25 documented as of this encounter
--- OUTSIDE RECORDS SUMMARY | 2025-06-09 12:33 | XMS_ITS | Clinical Summary ---
Author Organization [facility] Address [address] [place] [address] Care Team Providers Care Meeting Specialist Name Role Phone Dawood Clemente Unavailable [phone] Haley Melgar Unavailable Allergies Active Allergy Reactions Criticality Noted Date Comments Penicillins Rash 04/10/2024 Medications ALPRAZolam (XANAX) 0.25 mg tablet Take 0.25 mg by mouth at bedtime as needed. Active levothyroxine 75 mcg cap Take 75 mcg by mouth daily before breakfast. Active meclizine (ANTIVERT) 25 mg tab Take 25 mg by mouth three times a day. Active amLODIPine (NORVASC) 2.5 mg tablet Take by mouth once daily. Active ondansetron HCl (ZOFRAN ORAL) Take by mouth as needed. Active insulin glargine,hum.rec .anlog (TOUJEO MAX U-300 SOLOSTAR SUBCUTANEOUS) Inject subcutaneously. Active tolterodine (DETROL) 2 mg tablet Take 2 mg by mouth two times a day. Active rosuvastatin (CRESTOR) 20 mg tablet Take 20 mg by mouth once daily. Active sertraline (ZOLOFT) 50 mg tablet Take 50 mg by mouth once daily. Active ergocalciferol 50,000 unit capsule (VITAMIN D2, DRISDOL) Take 50,000 Units by mouth one time a week. Active traZODone (DESYREL) 100 mg tablet Take 100 mg by mouth two times a day. Active liraglutide (VICTOZA) 0.6 mg/ 0.1 ml subcutaneous pen injectorIndicati ons:Type 2 diabetes mellitus with chronic kidney disease, with long-term current use of insulin, unspecified CKD stage (HCC) Inject 1.8 mg subcutaneously once daily. 27 mL 03/05/20 25 Active Active Problems Problem Noted Date Diagnosed Date S/P repair of ventral hernia 01/14/2025 Acute post-operative pain 01/14/2025 Electrolyte imbalance 01/14/2025 Morbid obesity with BMI of 50.0-59.9, adult 12/27 History of ventral hernia 01/13/2025 Hernia, incisional 01/12/2025 Assessment & Plan (01/12/2025 9:59 AM EDT): Scheduled for repair. Class 3 severe obesity due t o excess calories with serious comorbidity and body mass index (BMI) of 50.0 to 59.9 in adult 05/26/2024 Assessment & Plan (01/12/2025 9:58 AM EDT): BMI 51 Snoring 05/26/2024 HTN (hypertension) Overview (01/12/2025): Managed on amlodipine Assessment & Plan (01/12/2025 9:56 AM EDT): Managed on amlodipine HLD (hyperlipidemia) Assessment & Plan (01/12/2025 9:57 AM EDT): On statin CKD (chronic kidney disease) Assessment & Plan (01/12/2025 9:57 AM EDT): Most recent sCr 2.43 from 08/2024. Electrolytes within normal limits. Will repeat BMP. Never on dialysis. Hypothyroidism Assessment & Plan (01/12/2025 9:58 AM EDT): Managed on synthroid. Encounters Date Type Department Care Team Description 04/08/2025 Telephone Transplant Center [address] [place] [address] Coordinators, Kidney Txp Return Call Request 04/08/2025 Telephone Transplant Center [address] [place] [address] Coordinators, Kidney Txp Referral - Kidney Txp 04/08/2025 Telephone Transplant Center [address] [address] Coordinators, Kidney Txp Referral - Kidney Txp from Last 3 Months Social History Tobacco Use Types Packs/Day Years Used Date Smoking Tobacco: Never Passive Smoke Exposure: Current Smokeless Tobacco: Never Tobacco Cessation:Counseling Given: Not Answered Passive Exposure Comments:Parents smoke per pt 01/12/2025 Alcohol Use Standard Drinks/Week Comments Not Currently 0 (1 standard drink = 0.6 oz pur e alcohol) Area Deprivation Index Answer Date Kvng rded National Score (1-100), lower number is lower ri sk 88 04/10/2024 State Score (1-10), lower number is lower risk 8 04/10/2024 Data from: https://www.neighborhoodatlas.medicine.[facility]/. Last address used for calculation [address] [facility] 04/10/2024 Comments No Sex and Gender Information Value Date Recorded Sex Assigned at Not on file Legal Sex Female 10:36 AM EDT Gender Identity Not on file Sexual Orientation Not on file Last Filed Vital Signs Vital Sign Reading Time Taken Comments Blood Pressure 124/84 02/13/2025 10:27 AM EDT Pulse 90 02/13/2025 10:27 AM EDT Temperature 35.8 C (96.4 F) 02/13/2025 10:27 AM EDT Respiratory Rate 20 02/13/2025 10:2 7 AM EDT Oxygen Saturation 98% 02/13/2025 10: 27 AM EDT Room Air Inhaled Oxygen Concentration - - Weight 130.3 kg (287 lb 3.2 oz) 02/13/2025 10:27 AM EDT Shoes on for balance Height 160 cm (5' 3 ) 02/13/2025 10:27 AM EDT Body Mass Index 50.88 02/13/2025 10:27 AM EDT Plan of Treatment Health Maintenance Due Date Last Done Comments Diabetic Foot Exam 1989 Dilated Retinal Exam 1989 Annual PCP Team Chronic Dise ase Visit 1997 Anxiety Screening 1997 Depression Screening 1997 HIV Screening 1997 Hepatitis C Screening 1997 LDL Cholesterol 1997 DTaP,Tdap,Td Vaccine (1 - Tdap) 1998 Hepatitis B Vaccine (1 of 3 - 19+ 3-dose series) 1998 Pneumococcal Vaccine (1 of 2 - PCV) 1998 Cervical Cancer Screening 2000 HPV Vaccine (1 - 3-dose SCDM series) 2006 Mammogram Screening 03/21/2022 03/21/2021, 03/21/2021, 03/21/2021 CT Colonography 2024 Cologuard (FIT-DNA) 2024 Colonoscopy 2024 04/01/2019 Colorectal Cancer Screening 2024 Fecal Occult Blood 2024 Sigmoidoscopy 2024 Influenza Vaccine (#1) 2025 HbA1C 10/01/2025 04/01/2025, 12/27, 12/17/2024, Additional history exists Hemoglobin/Hematocrit 01/16/2026 01/16/2025 , 01/15/2025, 01/14/2025, Additional history exists Serum Creatinine 01/16/2026 01/16/2025, , 01/14/2025, Additional history exists Medical Devices Implanted Type Area Lining Maker Device Identifier Shelf Expiration Date Model / Serial / Lot Mesh Vicryl Woven 12x12 - [id number] Implanted:Qty: 1 on 01/13/2025 at [facility] Mesh [employer] ETHICON VWML / / Mesh Prolene Square Flat [id number] Surgical Knit Nonabsorbable Nonreactive - [id number] Implanted:Qty: 1 on 01/13/2025 at [facility] Mesh N/A: Abdomen ELLEN AND ELLEN 06/28/2029 PML / / [id number] Mesh Prolene Square Flat [id number] Surgical Knit Nonabsorbable Nonreactive - [id number] Implanted:Qty: 1 on 01/13/2025 at [facility] Mesh N/A: Abdomen ELLEN AND ELLEN 06/28/2029 PML / / [id number] Mesh Prolene Square Flat [id number] Surgical Knit Nonabsorbable Nonreactive - [id number] Implanted:Qty: 1 on 01/13/2025 at [facility] Mesh N/A: Abdomen ELLEN AND ELLEN 06/28/2029 PML / / [id number] Mesh Prolene Square Flat [id number] Surgical Knit Nonabsorbable Nonreactive - [id number] Implanted:Qty: 1 on 01/13/2025 at [facility] Mesh N/A: Abdomen ELLEN AND ELLEN 06/28/2029 PML / / [id number] Mesh Prolene Square Flat [id number] Surgical Knit Nonabsorbable Nonreactive - [id number] Implanted:Qty: 1 on 01/13/2025 at [facility] Mesh N/A: Abdomen ELLEN AND ELLEN 06/28/2029 PML / / [id number] Mesh Vicryl Flat Polyglactin 910 Woven 6x6in Surgical Knit Hernia Repair - [id number] Implanted:Qty: 1 on 01/13/2025 at [facility] Mesh N/A: Abdomen J&J ETHICON DRAIN MESH 01/27/2028 [id number] / / [id number] Procedures Procedure Name Priority Date/Time Associated Diagnosis Comments COMPLETE BLOOD COUNT Routine 01/16/2025 10:53 PM EDT BASIC METABOLIC PANEL Routine 01/16/2025 10:53 PM EDT HEMOGLOBIN A1C Add-on 01/13/2025 10:39 PM EDT from Last 3 Months or Most Recently Relevant to Health Maintenance Results * (ABNORMAL) COMPLETE BLOOD COUNT (01/16/2025 10:53 PM EDT) WBC 6.18 3.70 - 11.00 k/uL 01/16/2025 11:55 PM EDT [facility] RBC 3.29(L) 3.90 - 5.20 m/uL 01/16/2025 11:55 PM EDT [facility] Hemoglobin 8.2(L) 11.5 - 15.5 g/dL 01/16/2025 11:55 PM EDT [facility] Hematocrit 27.1(L) 36.0 - 46.0 % 01/16/2025 11:55 PM EDT [facility] MCV 82.4 80.0 - 100.0 fL 01/16/2025 11:55 PM EDT [facility] MCH 24.9(L) 26.0 - 34.0 pg 01/16/2025 11:55 PM EDT [facility] MCHC 30.3(L) 30.5 - 36.0 g/dL 01/16/2025 11:55 PM EDT [facility] RDW-CV 15.4(H) 11.5 - 15.0 % 01/16/2025 11:55 PM EDT [facility] Platelet Count 218 150 - 400 k/uL 01/16/2025 11:55 PM EDT [facility] MPV 9.6 9.0 - 12.7 fL 01/16/2025 11:55 PM EDT [facility] Absolute nRBC <0.01 <0.01 k/uL 01/16/2025 11:55 PM EDT [facility] Blood BLOOD SPECIMEN / Unknown Venipuncture / Unknown 01/16/2025 10:53 PM EDT 01/16/2025 11:45 PM EDT us Alexis Nieto MD LABORATORY Final Resu lt [facility] [address] [place] [address], * (ABNORMAL) BASIC METABOLIC PANEL (01/16/2025 10:53 PM EDT) [facility] Glucose 229(H) 74 - 99 mg/dL 01/17/2025 12:57 AM EDT [facility] Comment: The [place] Diabetes Association (ADA) provides guidance for cutoff values for fasting glucose and random glucose. The ADA defines fasting as no caloric intake for at least 8 hours. Fasting plasma glucose results between 100 to 125 mg/dL indicate increased risk for diabetes (prediabetes). Fasting plasma glucose results greater than or equal to 126 mg/dL meet the criteria for diagnosis of diabetes. In the absence of unequivocal hyperglycemia, results should be confirmed by repeat testing. In a patient with classic symptoms of hyperglycemia or hyperglycemic crisis, random plasma glucose results greater than or equal to 200 mg/dL meet the criteria for diagnosis of diabetes. Reference: Standards of Medical Care in Diabetes 2016, [place] Diabetes Association. Diabetes Care. 2016.39(Suppl 1). BUN 32(H) 7 - 21 mg/dL 01/17/2025 12:57 AM EDT [facility] Creatinine 2.46(H) 0.58 - 0.96 mg/dL 01/17/2025 12:57 AM T [facility] Sodium 140 136 - 144 mmol/L 01/17/2025 12:57 AM EDT [facility] Potassium 4.0 3.7 - 5.1 mmol/L 01/17/2025 12:57 AM EDT [facility] Chloride 106 98 - 107 mmol/L 01/17/2025 12:57 AM T [facility] CO2 25 22 - 30 mmol/L 01/17/2025 12:57 AM T [facility] Anion Gap 9 8 - 15 mmol/L 01/17/2025 12:57 AM EDT [facility] Calcium, Total 9.1 8.5 - 10.2 mg/dL 01/17/2025 12:57 AM T [facility] Estimated Glomerular Filtration Rate 24(L) >=60 mL/min/1. 73m 01/17/2025 12:[address] [facility] Comment:Estimated Glomerular Filtration Rate (eGFR) is calculated using the 2020 CKD-EPI creatinine equation. This equation utilizes serum creatinine, sex, and age as parameters. The creatinine assay has traceable calibration to isotope dilution- mass spectrometry. Refer to KDIGO guidelines for clinical interpretation. In patients with unstable renal function, e.g. those with acute kidney injury, the eGFR may not accurately reflect actual GFR. Blood BLOOD SPECIMEN / Unknown Venipuncture / Unknown 01/16/2025 10:53 PM EDT 01/16/2025 11:44 PM EDT us Alexis Nieto MD LABORATORY Final Resu lt [facility] [address] [address], [place] * (ABNORMAL) HEMOGLOBIN A1C (01/13/2025 10:39 PM EDT) Hemoglobin A1C 6.1(H) 4.3 - 5.6 % 01/14/2025 5:36 PM EDT [facility] Comment:[place] Diabetes As sociation guidelines indicate that patients with HgbA1c in the range 5.7-6.4% are at increased risk for development of diabetes, and intervention by lifestyle modification may be beneficial. HgbA1c greater or equal to 6.5% is considered diagnostic of diabetes. Estimated Average Glucose 128 mg/dL 01/14/2025 5:36 PM EDT [facility] Comment:eAG: (Estimated aver age glucose) is a calculated value from HgbA1c and is circulation representative of the average blood glucose level in the last 2-3 month period. Blood BLOOD SPECIMEN / Unknown Venipuncture / Unknown 01/13/2025 10:39 PM EDT 01/13/2025 11:14 PM EDT us Rosa Cazares TRANSPORT TECHNICIAN.[facility] Final Result [facility] [address] [place] [address], from Last 3 Months or Most Recently Relevant to Health Maintenance Insurance [facility] [id number] Care Teams Meeting Specialist Relationship Specialty Start Date End Date Dawood Clemente [address] [place] [address] [place] [address] Referring General Surgery 03/07/24 Allison Melgar MD [address] [place] [address] Referring Internal Medicine 04/06/25
--- OUTSIDE RECORDS SUMMARY | 2025-06-09 12:33 | XMS_ITS | Encounter Summary ---
Author Organization [employer] Address [id number] [address] [place] [address] Care Team Providers Care Grey Roll Worker Name Role Phone Amina Holcomb HOUSEKEEPING/LAUNDRY SUPERVISOR-LIFT SUPERVISOR Primary Care Provider + Reason for Visit * Reason Onset Date Comments Med Refill 04/29/2024 Encounter Details Date Type Department Care Team (Late st Contact Info) Description 04/29/2024 Refill [facility] Internal Medicine - Family Medicine [address] [place] [address] Mami Rosales HOUSEKEEPING/LAUNDRY SUPER[facility] [address] LEFT PM 04/27/25 [place] [id number] Social anxiety disorder Social History Tobacco Use Types Packs/Day Years Used Date Smoking Tobacco: Never Smokeless Tobacco: Never Alcohol Use Standard Drinks/Week Comments No 0 (1 standard drink = 0.6 oz pur e alcohol) PHQ-2 Answer Date Recorded Total Score 0 02/21/2024 Childcare Answer Date Recorded Childcare Unknown 04/09/2019 Employment Answer Date Recorded Employment Unknown 04/09/2019 Hunger Screening Answer Date Recorded Within the past 12 months we worried whether our food would run out before we got money to buy more. Never True 02/21/2024 Within the past 12 months th e food we bought just didn't last and we didn't have money to get more. Never True 02/21/2024 Purpose - Life Answer Date Recorded Purpose and direction in life Unknown Comments Unknown Sex and Gender Information Value Date Recorded Sex Assigned at Not on file Legal Sex Female 11:39 AM EDT Gender Identity Not on file Sexual Orientation Not on file documented as of this encounter Miscellaneous Notes * Telephone Encounter - ALESSIO Parsons - 04/29/2024 1:29 PM EDT Already reordered documented in this encounter Plan of Treatment Upcoming Encounters Date Type Department Care Team (Late st Contact Info) Description 07/17/2025 9:20 AM EDT Office Visit [facility] - Family Medicine [address] [place] [address] Amina Holcomb APRN-CNP [address] [place] [address] documented as of this encounter Visit Diagnoses Diagnosis Social anxiety disorder Social phobia documented in this encounter Additional Health Concerns Assessment Noted Time PHQ-9 Depression Total Score: 0 02/21/20 24 11:07 AM EDT A Body Mass Index follow-up plan has been documented for the patient 02/05/2024 7:50 AM EDT documented as of this encounter Care Teams Grey Roll Worker Relationship Specialty Start Date End Date Amina Holcomb APRN-CNP [address] [place] [address] PCP - General Family Medicine 04/24/25 documented as of this encounter
--- OUTSIDE RECORDS SUMMARY | 2025-06-09 12:33 | XMS_ITS | Encounter Summary ---
Author Organization [facility] Address [facility] [place] [address] Care Team Providers Care Wastewater Supervisor Name Role Phone Dwaood Clemente Unavailable [phone] Haley Melgar Unavailable Source Comments In the event this information is protected by the Federal Confidentiality of Alcohol and Drug AbusePatient Records regulations: The Federal rules restrict any use of the information to criminally investigate or prosecute any alcohol or drug abuse patient.[facility] Reason for Visit * Reason Comments Return Call Request Encounter Details Date Type Department Care Team (Late st Contact Info) Description 04/08/2025 Telephone Transplant Center [address] [address] Coordinators, Kidney Txp [address] [place] [address] Return Call Request Social History Tobacco Use Types Packs/Day Years Used Date Smoking Tobacco: Never Passive Smoke Exposure: Current Smokeless Tobacco: Never Passive Exposure Comments:Pa rents smoke per pt 01/12/2025 Alcohol Use Standard Drinks/Week Comments Not Currently 0 (1 standard drink = 0.6 oz pur e alcohol) Area Deprivation Index Answer Date Kvng rded National Score (1-100), lower number is lower ri sk 88 04/10/2024 State Score (1-10), lower number is lower risk 8 04/10/2024 Data from: https://www.neighborhoodatlas.medicine.[facility] [place].[facility]/. Last address used for calculation [address] 04/10/2024 Comments No Sex and Gender Information Value Date Recorded Sex Assigned at Not on file Legal Sex Female 10:36 AM EDT Gender Identity Not on file Sexual Orientation Not on file documented as of this encounter Functional Status * Are you deaf or do you have serious difficulty hearing? Answer Date of Assessment Author No 01/17/2025 10:13 AM Martha Mcneil RN * Are you blind or do you have serious difficulty seeing, even when wearing glasses? Answer Date of Assessment Author No 01/17/2025 10:13 AM Martha Mcneil RN * Do you have serious difficulty walking or climbing stairs? Answer Date of Assessment Author No 01/17/2025 10:13 AM Martha Mcneil RN * Do you have difficulty dressing or bathing? Answer Date of Assessment Author Yes 01/17/2025 10:13 AM Martha Mcneil RN * Because of a physical, mental, or emotional condition, do you have difficulty doing errands alone such as visiting a doctor's office or shopping? Answer Date of Assessment Author Yes 01/17/2025 10:13 AM Martha Mcneil RN documented as of this encounter Mental Status * Because of a physical, mental, or emotional condition, do you have serious difficulty concentrating, remembering, or making decisions? Answer Entry Date Author No 01/17/2025 10:13 AM Martha Mcneil RN documented in this encounter Miscellaneous Notes * Telephone Encounter - Galilea Duran - 04/08/2025 4:02 PM EDT Carina called in stating that she was returning a call for kidney intake. Carina hung up before Icould transfer her. documented in this encounter Plan of Treatment Not on file documented as of this encounter Visit Diagnoses Not on filedocumented in this encounter Care Teams Wastewater Supervisor Relationship Specialty Start Date End Date Dawood Clemente [address] [address] Referring General Surgery 03/07/24 Allison Melgar MD [facility] [place] [address] Referring Internal Medicine 04/06/25 documented as of this encounter
--- OUTSIDE RECORDS SUMMARY | 2025-06-09 12:33 | XMS_ITS | Clinical Summary ---
Author Organization [facility] Address [address] [place] [address] Care Team Providers Care Manager Research Development Name Role Phone Unavailable Primary Care Provider Unavailabl e Encounters Date Type Department Care Team Description 03/24/2025 Telephone [facility] Transplant [address] [place] [address] Danni Mercer RN 03/20/2025 Telephone [facility] Transplant [address] [place] [address] Lay Monahan MA Referral - Kidney Txp from Last 3 Months Social History Tobacco Use Types Packs/Day Years Used Date Smoking Tobacco: Never Assessed Comments Unknown Sex and Gender Information Value Date Recorded Sex Assigned at Not on file Legal Sex Female 11:39 PM EDT Gender Identity Not on file Sexual Orientation Not on file Last Filed Vital Signs Vital Sign Reading Time Taken Comments Blood Pressure 132/76 08/29/2019 8:59 AM EDT Pulse 78 08/29/2019 8:59 AM EDT Temperature 36.7 C (98.1 F) 03/06/2019 8:43 AM EDT Respiratory Rate - - Oxygen Saturation - - Inhaled Oxygen Concentration - - Weight 154 kg (339 lb 15.9 oz) 04/28/2021 7:39 A M EDT Height 165.1 cm (5' 5 ) 05/04/2021 8:14 AM EDT Body Mass Index 56.58 04/28/2021 7:39 AM EDT Plan of Treatment Health Maintenance Due Date Last Done Comments CT Colonography 1979 Diabetes: Hemoglobin A1C 1979 FIT-DNA 1979 FIT 1979 FOBT 1979 Sigmoidoscopy 1979 Diabetes: Retinopathy Screening 1989 Depression Screening 1991 Hepatitis B Vaccines (1 of 3 - 19+ 3-dose series) 1998 Pap Smear 2000 Adult Tetanus 2001 Cervical Cancer Screening 2009 HPV/Cotest 2009 Mammogram 03/21/2023 03/21/2021 COVID-19 Vaccine (2023-2 5 season) 2024 Diabetes: Urine Protein Screening 06/23/2025 024 Influenza Vaccine (#1) 2025 Colonoscopy 04/01/2029 04/01/2019 Colorectal Cancer Screening 04/01/2029 Zoster Vaccines (1 of 2) 2029 HIB Vaccines Aged Out No longer eligi ble based on patient's age to complete this topic HPV Vaccines Aged Out No longer eligi ble based on patient's age to complete this topic IPV Vaccines Aged Out No longer eligi ble based on patient's age to complete this topic Meningococcal B Vaccine Aged Out No l onger eligible based on patient's age to complete this topic Meningococcal Vaccine Aged Out No bobby jacky eligible based on patient's age to complete this topic Pneumococcal Vaccine: Pediat rics (0 to 5 Years) and At-Risk Patients (6 to 64 Years) Aged Out No longer eligi ble based on patient's age to complete this topic Rotavirus Vaccines Aged Out No longer eligible based on patient's age to complete this topic Insurance GENERIC COMMERCIAL
--- OUTSIDE RECORDS SUMMARY | 2025-06-09 12:33 | XMS_ITS | Encounter Summary ---
Author Organization [employer] Address [id number] [address] [place] [address] Care Team Providers Care Computer Hardware Engineer Name Role Phone Amina Holcomb CAPTAIN CANNERY TENDER-ELECTRON GUN INSPECTOR Primary Care Provider + Reason for Visit * Reason Onset Date Comments Med Refill 04/13/2025 Encounter Details Date Type Department Care Team (Late st Contact Info) Description 04/13/2025 Refill [facility] Internal Medicine - Family Medicine [address] [place] [address] Jadyn Styles CMA Social anxiety disorder; Vertigo Social History Tobacco Use Types Packs/Day Years Used Date Smoking Tobacco: Never Smokeless Tobacco: Never Alcohol Use Standard Drinks/Week Comments No 0 (1 standard drink = 0.6 oz pur e alcohol) PHQ-2 Answer Date Recorded Total Score 0 04/01/2025 Childcare Answer Date Recorded Childcare Unknown 04/09/2019 Employment Answer Date Recorded Employment Unknown 04/09/2019 Hunger Screening Answer Date Recorded Within the past 12 months we worried whether our food would run out before we got money to buy more. Never True 04/01/2025 Within the past 12 months th e food we bought just didn't last and we didn't have money to get more. Never True 04/01/2025 Purpose - Life Answer Date Recorded Purpose and direction in life Unknown Comments Unknown Sex and Gender Information Value Date Recorded Sex Assigned at Not on file Legal Sex Female 11:39 AM EDT Gender Identity Not on file Sexual Orientation Not on file documented as of this encounter Plan of Treatment Upcoming Encounters Date Type Department Care Team (Late st Contact Info) Description 07/17/2025 9:20 AM EDT Office Visit [facility] - Family Medicine [address] [place] [address] Amina Holcomb APRN-CNP [address] [place] [address] documented as of this encounter Visit Diagnoses Diagnosis Social anxiety disorder Social phobia Vertigo Dizziness and giddiness documented in this encounter Additional Health Concerns Assessment Noted Time PHQ-9 Depression Total Score: 0 04/01/20 1:28 PM EDT A Body Mass Index follow-up plan has been documented for the patient 04/01/2025 2:12 PM EDT documented as of this encounter Care Teams Computer Hardware Engineer Relationship Specialty Start Date End Date Amina Holcomb APRN-CNP [address] [place] [address] PCP - General Family Medicine 04/24/25 documented as of this encounter
--- OUTSIDE RECORDS SUMMARY | 2025-06-09 12:33 | XMS_ITS | Encounter Summary ---
Author Organization [employer] Address [id number] [address] [place] [address] Care Team Providers Care Etl Bi Developer Name Role Phone Amina Holcomb SHIPPING WEIGHER-SURFACER OPERATOR Primary Care Provider + Encounter Details Date Type Department Care Team (Late st Contact Info) Description 01/19/2025 Telephone [facility] - Family Medicine [address] [place] [address] Leda Perez CMA Social History Tobacco Use Types Packs/Day Years Used Date Smoking Tobacco: Never Smokeless Tobacco: Never Alcohol Use Standard Drinks/Week Comments No 0 (1 standard drink = 0.6 oz pur e alcohol) PHQ-2 Answer Date Recorded Total Score 0 12/17/2024 Childcare Answer Date Recorded Childcare Unknown 04/09/2019 Employment Answer Date Recorded Employment Unknown 04/09/2019 Hunger Screening Answer Date Recorded Within the past 12 months we worried whether our food would run out before we got money to buy more. Never True 12/17/2024 Within the past 12 months th e food we bought just didn't last and we didn't have money to get more. Never True 12/17/2024 Purpose - Life Answer Date Recorded Purpose and direction in life Unknown Comments Unknown Sex and Gender Information Value Date Recorded Sex Assigned at Not on file Legal Sex Female 11:39 AM EDT Gender Identity Not on file Sexual Orientation Not on file documented as of this encounter Miscellaneous Notes * Telephone Encounter - Leda Perez CMA - 01/19/2025 12:24 PM EDT documented in this encounter Plan of Treatment Upcoming Encounters Date Type Department Care Team (Late st Contact Info) Description 07/17/2025 9:20 AM EDT Office Visit [facility] - Family Medicine [address] [place] [address] Amina Holcomb, SHIPPING WEIGHER-SURFACER OPERATOR [address] [place] [address] documented as of this encounter Visit Diagnoses Not on filedocumented in this encounter Additional Health Concerns Assessment Noted Time PHQ-9 Depression Total Score: 0 12/17/19 25 2:26 PM EST A Body Mass Index follow-up plan has been documented for the patient 12/17/2024 4:32 PM EST documented as of this encounter Care Teams Etl Bi Developer Relationship Specialty Start Date End Date Amina Holcomb, SHIPPING WEIGHER-SURFACER OPERATOR [address] [facility] [place] [address] PCP - General Family Medicine 04/24/25 documented as of this encounter
--- OUTSIDE RECORDS SUMMARY | 2025-06-09 12:33 | XMS_ITS | Encounter Summary ---
Author Organization [employer] Address [id number] [address] [place] [address] Care Team Providers Care Temporary Receptionist Name Role Phone Amina Holcomb CONTACT AND SERVICE CLERKS SUPERVISOR-AUTOMATIC CHIEF Primary Care Provider + Encounter Details Date Type Department Care Team (Late st Contact Info) Description 09/09/2024 Orders Only [facility] Internal [facility] - Family Medicine [address] [place] [address] Mami Rosales, CONTACT AND SERVICE CLERKS SUPERVISOR-AUTOMATIC CHIEF [address] LEFT PM 04/27/25 [place] [id number] Social History Tobacco Use Types Packs/Day Years Used Date Smoking Tobacco: Never Smokeless Tobacco: Never Alcohol Use Standard Drinks/Week Comments No 0 (1 standard drink = 0.6 oz pur e alcohol) PHQ-2 Answer Date Recorded Total Score 0 05/05/2024 Childcare Answer Date Recorded Childcare Unknown 04/09/2019 Employment Answer Date Recorded Employment Unknown 04/09/2019 Hunger Screening Answer Date Recorded Within the past 12 months we worried whether our food would run out before we got money to buy more. Never True 06/23/2024 Within the past 12 months th e food we bought just didn't last and we didn't have money to get more. Never True 06/23/2024 Purpose - Life Answer Date Recorded Purpose [...] Medicine - Family Medicine [address] [place] [address] Amina Holcomb APRN-CNP [address] [place] [address] documented as of this encounter Visit Diagnoses Not on filedocumented in this encounter Additional Health Concerns Assessment Noted Time PHQ-9 Depression Total Score: 0 05/05/20 24 9:42 AM EDT A Body Mass Index follow-up plan has been documented for the patient 08/25/2024 1:47 PM EDT documented as of this encounter Care Teams Temporary Receptionist Relationship Specialty Start Date End Date Amina Holcomb APRN-CNP [address] [place] [address] PCP - General Family Medicine 04/24/25 documented as of this encounter
--- OUTSIDE RECORDS SUMMARY | 2025-06-09 12:33 | XMS_ITS | Clinical Summary ---
Author Organization [facility] Address [address] [place] [address] Care Team Providers Care Hvac Maintenance Technician Name Role Phone Mami Rosales Unavailable [phone] Allergies Active Allergy Reactions Criticality Noted Date Comments Penicillin G Rash Low 03/15/2023 Penicillins Hives,Rash Low 03/09/2017 Medications traMADol (Ultram) 50 MG tablet Take 50 mg by mouth every 8 (eight) hours if needed. 10/03/20 22 Active Continuous Blood Gluc Clinical Nursing Director (Dexcom G7 Clinical Nursing Director) device USE DIRECTED 02/16/20 23 Active rosuvastatin (Crestor) 20 MG tabletIndications: Combined hyperlipidemia Take 1 tablet by mouth once daily 100 tablet 4 04/23/20 23 Active ReliOn Pen Armstrong 31G X 6 MM misc USE 1 PEN ONCE DAILY IN THE MORNING 05/10/20 23 Active sertraline (Zoloft) 50 MG tabletIndications: Panic disorder Take 1 tablet (50 mg) by mouth in the morning. 90 tablet 3 06/28/20 23 Active Continuous Blood Gluc Sensor (Dexcom G7 Sensor) misc APPLY 1 SENSOR EVERY 10 DAYS DIRECTED 06/17/20 23 Active tiZANidine (Zanaflex) 4 MG tabletIndications: Contracture, right ankle Take 1 tablet (4 mg) by mouth as needed at bedtime for muscle spasms. 30 tablet 2 07/09/20 23 Active traZODone (Desyrel) 100 MG tabletIndications: Social anxiety disorder TAKE 2 TABLETS BY MOUTH IN THE MORNING AND 2 AT BEDTIME 120 tablet 5 09/23/20 23 Active ALPRAZolam (Xanax) 0.5 MG tabletIndications: Panic disorder TAKE 1 TABLET BY MOUTH TWICE DAILY (MORNING AND BEFORE BEDTIME) 60 tablet 3 10/01/20 23 Active insulin glargine (Toujeo Max Solostar, 2 unit dial,) 300 UNIT/ML injectionIndicatio ns:Diabetes mellitus without complication (HCC) Inject 18 Units under the skin at bedtime 3 mL 3 12/12/19 24 Active tolterodine (Detrol) 2 MG tabletIndications: Overactive bladder Take 1 tablet by mouth twice daily 60 tablet 12/27/19 24 Active amLODIPine (Norvasc) 2.5 MG tablet Daily 02/14/20 24 Active levothyroxine (Synthroid, Levoxyl) 75 MCG tablet Take 75 mcg by mouth in the morning. 01/05/20 24 Active ondansetron ODT (Zofran-ODT) 4 MG disintegrating tablet 12/26/19 24 Active Mounjaro 2.5 MG/0.5ML solution pen-injector Inject 2.5 mg under the skin once a week 02/08/20 24 Active meclizine (Antivert) 25 MG tabletIndications: Ataxia TAKE 1 TABLET BY MOUTH 4 TIMES DAILY NEEDED 120 tablet 04/28/20 24 Active ergocalciferol (Vitamin D2) 1.25 MG (23984 UT) capsuleIndications :Vitamin D deficiency TAKE 1 CAPSULE BY MOUTH ONCE A WEEK EVERY SUNDAY 12 capsule 3 09/17/20 24 Active empagliflozin (Jardiance) 25 MG Take by mouth Active methylPREDNISolone (Medrol Dospak) 4 MG tabletsIndications :Peroneal tendinitis, left Follow schedule on MEDROL PACK package instructions to be used as directed 21 tablet 11/11/19 25 Active Active Problems Problem Noted Date Diagnosed Date Acute hyperglycemia 02/25/2024 Acute kidney injury superimposed on chronic kidn ey disease 02/25/2024 Acute rhinosinusitis 02/25/2024 BMI 60.0-69.9, adult 02/25/2024 Bowel obstruction 02/25/2024 Decreased bowel sounds 02/25/2024 Dizziness 02/25/2024 Partial small bowel obstruction 02/25/2024 Proteinuria 02/25/2024 Secondary hyperparathyroidism 02/25/2024 Incisional hernia, without obstruction or gangre ne 05/29/2023 Upper abdominal pain 05/29/2023 Uncontrolled type 2 diabetes mellitus with hyper glycemia 05/29/2023 Acquired absence of other sp ecified parts of digestive tract 03/15/2023 Adenocarcinoma of transverse colon 03/15/2023 Anemia, unspecified 03/15/2023 Panic disorder 03/15/2023 Ataxia 03/15/2023 Benign paroxysmal positional vertigo 03/15/2023 Chronic constipation 03/15/2023 Chronic fatigue syndrome 03/15/2023 Combined hyperlipidemia 03/15/2023 Contracture, right ankle 03/15/2023 Type 2 diabetes mellitus wit h diabetic chronic kidney disease 03/15/2023 GERD without esophagitis 03/15/2023 Hypothyroidism 03/15/2023 Intussusception of colon 03/15/2023 Loss of balance 03/15/2023 Mild recurrent major depression 03/15/2023 Morbid obesity with BMI of 50.0-59.9, adult 02/26 Nephrolithiasis 03/15/2023 OAB (overactive bladder) 03/15/2023 Obstructive sleep apnea syndrome 03/15/2023 Osteochondritis dissecans of left ankle 03/15/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 Polycystic ovaries 03/15/2023 Renal atrophy, left 03/15/2023 Renal mass 03/15/2023 Social anxiety disorder 03/15/2023 Stage 3 chronic kidney disease 03/15/2023 Sudden attack of loss of normal tone or strength 03/15/2023 Vertigo of central origin 03/15/2023 Vestibular dysfunction 03/15/2023 Vitamin D deficiency 03/15/2023 Hernia of abdominal wall 12/22/2021 Overview (05/23/2023): ileus Nephrosclerosis 08/29/2018 Iron deficiency anemia due to chronic blood loss 11/15/2017 Lower abdominal pain 10/11/2017 Malignant neoplasm of transverse colon 7 History of excision of intestinal structure 08/31 History of malignant neoplasm of colon 7 Non-refractory idiopathic generalized epilepsy 0 04/12/2017 Resolved Problems Problem Noted Date Diagnosed Date Resolved Date Anxiety disorder 03/15/2023 04/05/2023 Encounters Date Type Department Care Team Description 06/08/2025 Abstract [facility] [address] [place] [address] Unallocated, Vicky Barrera MD 06/08/2025 Abstract [facility] [address] [place] [address] Unallocated, Vicky Barrera MD 06/08/2025 Abstract [facility] [address] [place] [address] Arpit Escalante MD from Last 3 Months Family History Medical History Relation Name Comments Cancer Father Edgard wu Hypertension Mother Pascale wu Torticollis Mother Pascale wu htn Mother Pascale wu Relation Name Status Comments Father Edgard wu Alive Mother Pascale wu Alive Sister 1 Alive Social History Tobacco Use Types Packs/Day Years Used Date Smoking Tobacco: Never Smokeless Tobacco: Never Tobacco Cessation:Counseling Given: Yes Alcohol Use Standard Drinks/Week Comments Never 0 (1 standard drink = 0.6 oz pure alcohol) Caffeine intake: >4 cups per day soda, chocolate Humiliation, Afraid, Rape, and Kick questionnair e Answer Date Recorded Within the last year, have y ou been afraid of your partner or ex-partner? No 07/03/2023 Within the last year, have y ou been humiliated or emotionally abused in other ways by your partner or ex-partner? No Within the last year, have y ou been kicked, hit, slapped, or otherwise physically hurt by your partner or ex-partner? No 07/03/2023 Within the last year, have y ou been raped or forced to have any kind of sexual activity by your partner or ex-partner? No 07/03/2023 Social Connection and Isolation Panel [NHANES] A nswer Date Recorded In a typical week, how many times do you talk on the phone with family, friends, or neighbors? Three times a week 07/03/2023 How often do you get togethe r with friends or relatives? Never 07/03/2023 How often do you attend chur ch or orthodox services? Never 07/03/2023 Do you belong to any clubs o r organizations such as lutheran groups, unions, fraternal or athletic groups, or school groups? No 07/03/2023 How often do you attend meet ings of the clubs or organizations you belong to? Never 07/03/2023 Are you , , di vorced, , never , or living with a partner? 07/03/2023 AUDIT-C Answer Date Recorded Q1: How often do you have a drink containing alc ohol? Patient declined 07/03/2023 Q2: How many drinks containi ng alcohol do you have on a typical day when you are drinking? Patient declined 07/03/2023 Q3: How often do you have si x or more drinks on one occasion? Patient declined 07/03/2023 Overall Financial Resource Strain (CARDIA) Answe r Date Recorded How hard is it for you to pa y for the very basics like food, housing, medical care, and heating? Somewhat hard 07/03/2023 PHQ-2 Answer Date Recorded Patient Health Questionnaire-2 Score 1 05/21/2023 [facility] - Occupational Stress Questionnaire Answer Date Recorded Do you feel stress - tense, restless, nervous, or anxious, or unable to sleep at night because your mind is troubled all the time - these days? Not at all 07/03/2023 Exercise Vital Sign Answer Date Recorde d On average, how many days pe r week do you engage in moderate to strenuous exercise (like a brisk walk)? 0 days 07/03/2023 On average, how many minutes do you engage in exercise at this level? 0 min 07/03/2023 Hunger Vital Sign Answer Date Recorded Within the past 12 months, y ou worried that your food would run out before you got the money to buy more. Never true 07/03/20 23 Within the past 12 months, t he food you bought just didn't last and you didn't have money to get more. Never true 07/03/2023 PRAPARE - Transportation Answer Date Re corded In the past 12 months, has l ack of transportation kept you from medical appointments or from getting medications? No 02/2023 In the past 12 months, has l ack of transportation kept you from meetings, work, or from getting things needed for daily living? No 07/03/2023 Housing Stability Vital Sign Answer Ez e Recorded In the last 12 months, was t here a time when you were not able to pay the mortgage or rent on time? Patient refused 07/03/20 23 [address] of [address] Lived in the Last Year Not on f ile 07/03/2023 In the last 12 months, was t here a time when you did not have a steady place to sleep or slept in a intermediate (including now)? Patient refused 07/03/2023 Comments Unknown Sex and Gender Information Value Date Recorded Sex Assigned at Not on file Legal Sex Female 6:38 PM EDT Gender Identity Not on file Sexual Orientation Not on file Last Filed Vital Signs Vital Sign Reading Time Taken Comments Blood Pressure 146/92 02/25/2024 9:44 AM EDT Pulse 76 12/12/2023 9:32 AM EST Temperature 37.1 C (98.8 F) 07/09/2023 2:00 PM EDT Respiratory Rate 16 11/11/2024 9:54 AM EST Oxygen Saturation 95% 12/12/2023 9:32 AM EST Inhaled Oxygen Concentration - - Weight 137 kg (302 lb) 11/11/2024 9:54 AM EST Height 160 cm (5' 3 ) 11/11/2024 9:54 AM EST Body Mass Index 53.5 11/11/2024 9:54 AM EST Plan of Treatment Health Maintenance Due Date Last Done Comments CT Colonography 1979 FIT-DNA 1979 FIT 1979 FOBT 1979 Sigmoidoscopy 1979 Pap Smear 2000 Cervical Cancer Screening 2009 HPV/Cotest 2009 Mammogram 03/21/2022 03/21/2021 Influenza Vaccine (#1) 2025 Colonoscopy 04/01/2029 04/01/2019 Colorectal Cancer Screening 04/01/2029 Procedures Procedure Name Priority Date/Time Associated Diagnosis Comments BI MAMMOGRAM SCREENING TOMOSYNTHESIS BILATERAL Routine 03/21/2021 COLONOSCOPY Routine 04/01/2019 12:00 PM EDT from Last 3 Months or Most Recently Relevant to Health Maintenance Results * Bilateral screening mammogram with tomosynthesis (03/21/2021) Anatomical Region Laterality Modality Breast Bilateral Mammography Narrative 03/21/2021 12:00 AM EDT PERFORMED AT [facility] LOCATION:[place] [address] Patient: CAROLYN Juarez. Exam Date: 03/21/2021 : 1980 Gender:F Ordering : DR ARPIT ESCALANTE M.D. Admission #: [id number] Family : Order #: [id number] CLICK HERE TO VIEW EXAM RADIOLOGY REPORT PROCEDURE: MAMMOGRAM SCREENING 3D BILATERAL CAD COMPARISON: None. INDICATIONS: Screening mammography Calculator Name NCI Breast Cancer Risk Assessment Tool 5 Year Breast Cancer Risk 0.80% Lifetime Breast Cancer Risk 12.40% Personal Breast Cancer No Personal Ovarian Cancer No Treatments None Family Cancers Father with colon cancer at age 60. LOCATION: [facility] BREAST COMPOSITION: Scattered areas fibroglandular density. FINDINGS: DIAGNOSTIC CATEGORY 2--BENIGN FINDING: Scattered benign-appearing nodules are present. Scattered benign-appearing calcifications are present. Scattered benign-appearing lymph nodes are present. RIGHT BREAST: No significant suspicious finding. LEFT BREAST: No significant suspicious finding. RECOMMENDATIONS: ROUTINE MAMMOGRAM AND CLINICAL EVALUATION IN 12 MONTHS. PLEASE NOTE: A NORMAL MAMMOGRAM DOES NOT EXCLUDE THE POSSIBILITY OF BREAST CANCER. A CLINICALLY SUSPICIOUS PALPABLE LUMP SHOULD BE BIOPSIED. Dictated by: Audi Chatterjee MD on 03/21/2021 at 10:58 Approved by: Audi Chatterjee MD on 03/21/2021 at 11:12 Procedure Note CONVERSION, GENERIC - 05/04/2023 PERFORMED AT [facility] LOCATION:[place] [id number] [address] Patient: CAROLYN Juarez. Exam Date: 03/21/2021 : 1980 Gender:F Ordering : DR ARPIT ESCALANTE M.D. Admission #: [id number] Family : Order #: [id number] CLICK HERE TO VIEW EXAM RADIOLOGY REPORT PROCEDURE: MAMMOGRAM SCREENING 3D BILATERAL CAD COMPARISON: None. INDICATIONS: Screening mammography Calculator Name NCI Breast Cancer Risk Assessment Tool 5 Year Breast Cancer Risk 0.80% Lifetime Breast Cancer Risk 12.40% Personal Breast Cancer No Personal Ovarian Cancer No Treatments None Family Cancers Father with colon cancer at age 60. LOCATION: [facility] BREAST COMPOSITION: Scattered areas fibroglandular density. FINDINGS: DIAGNOSTIC CATEGORY 2--BENIGN FINDING: Scattered benign-appearing nodules are present. Scatteredbenign-appearing calcifications are present. Scattered benign-appearing lymph nodes are present. RIGHT BREAST: No significant suspicious finding. LEFT BREAST: No significant suspicious finding. RECOMMENDATIONS: ROUTINE MAMMOGRAM AND CLINICAL EVALUATION IN 12 MONTHS. PLEASE NOTE: A NORMAL MAMMOGRAM DOES NOT EXCLUDE THE POSSIBILITY OFBREAST CANCER. A CLINICALLY SUSPICIOUS PALPABLE LUMP SHOULD BE BIOPSIED. Dictated by: Audi Chatterjee MD on 03/21/2021 at 10:58 Approved by: Audi Chatterjee MD on 03/21/2021 at 11:12 Arpit Escalante MD IMG BI PROCEDURES Final Result * Colonoscopy (04/01/2019 12:00 PM EDT) Anatomical Region Laterality Modality Endoscopy 04/01/2019 12:0 0 PM EDT Narrative 04/01/2019 12:00 PM EDT PERFORMED AT [facility] LOCATION:[id number] Procedure Note CONVERSION, GENERIC - 03/14/2023 PERFORMED AT [facility] LOCATION:[id number] Kesha MARSHALL ENDOSCOPY PROCEDURE ORDERABLES Final Result from Last 3 Months or Most Recently Relevant to Health Maintenance Insurance [employer] Care Teams Hvac Maintenance Technician Relationship Specialty Start Date End Date Mami Rosales CRNP Referring Physician Nurse Practitioner 11/11/24
--- OUTSIDE RECORDS SUMMARY | 2025-06-09 12:33 | XMS_ITS | Encounter Summary ---
Author Organization [facility] [employer] [facility] [employer] Address [facility] [id number] [address] [place] [address] Care Team Providers Care Traffic Engineer Name Role Phone Amina Holcomb FIRMWARE ARCHITECT-PROPERTY CLERK Primary Care Provider + Encounter Details Date Type Department Care Team (Late Contact Info) Description 02/23/2024 Orders Only [facility] [address] [place] [id number] External, Scanning Provider Pain (Primary Dx) Social History Tobacco Use Types Packs/Day Years [...] Encounters Date Type Department Care Team (Late Contact Info) Description 07/17/2025 9:20 AM EDT Office Visit [facility] [address] [place] [address] Amina Holcomb APRN-ROBI [address] [place] [address] documented as of this encounter Results * X-ray abdomen complete series with pa chest (02/10/2024 7:10 AM EDT) us Scanning Provider External IMG DIAGNOSTIC IMAGIN G ORDERABLES Final Result * X-ray abdomen complete series with pa chest (02/09/2024 8:30 AM EDT) us Scanning Provider External IMG DIAGNOSTIC IMAGIN G ORDERABLES Final Result documented in this encounter Visit Diagnoses Diagnosis Pain- Primary Generalized pain documented in this encounter Additional Health Concerns Assessment Noted Time PHQ-9 Depression Total Score: 0 02/21/20 11:07 AM EDT A Body Mass Index follow-up plan has been documented for the patient 02/05/2024 7:50 AM EDT documented as of this encounter Care Teams Traffic Engineer Relationship Specialty Start Date End Date Amina Holcomb APRN-CNP [address] [place] [address] PCP - General Family Medicine 04/24/25 documented as of this encounter
--- OUTSIDE RECORDS SUMMARY | 2025-06-09 12:33 | XMS_ITS | Encounter Summary ---
Author Organization [facility] Address [address] [place] [address] Care Team Providers Care Yard Crane Operator Name Role Phone Mami Rosales Unavailable [phone] Encounter Details Date Type Department Care Team (Late st Contact Info) Description 04/04/2023 Abstract [facility] [address] [facility] [address] [place] [address] Arpit Escalante MD [address] [facility] [address] [place] [address] Social History Tobacco Use Types Packs/Day Years Used Date Smoking Tobacco: Never Smokeless Tobacco: Never Tobacco Cessation:Counseling Given: Not Answered Alcohol Use Standard Drinks/Week Comments Never 0 (1 standard drink = 0.6 oz pure alcohol) Caffeine intake: >4 cups per day soda, chocolate PHQ-2 Answer Date Recorded Patient Health Questionnaire-2 Score 0 04/05/2023 Comments Unknown Sex and Gender Information Value Date Recorded Sex Assigned at Not on file Legal Sex Female 6:38 PM EDT Gender Identity Not on file Sexual Orientation Not on file COVID-19 Exposure Response Date Recorded In the last 10 days, have yo u been in contact with someone who was confirmed or suspected to have Coronavirus/COVID-19? No / Unsure 03/13/2023 1:59 PM EDT documented as of this encounter Functional Status * Over the past 2 weeks, how often have you been bothered by any of the following problems? Question Answer Date of Assessment Author Little interest or pleasure in doing things Not at all 04/05/2023 1:35 PM EDT Oriana Granger LP N Feeling down, depressed, or hopeless Not at all 04/05/2023 1:35 PM JESICAT Oriana Granger LP N Patient Health Questionnaire -2 Score 0 04/05/2023 1:35 PM JESICAT Oriana Granger LP N documented as of this encounter Plan of Treatment Not on file documented as of this encounter Visit Diagnoses Not on filedocumented in this encounter Care Teams Yard Crane Operator Relationship Specialty Start Date End Date Mami Rosales CRNP Referring Physician Nurse Practitioner 11/11/24 documented as of this encounter
--- OUTSIDE RECORDS SUMMARY | 2025-06-09 12:33 | XMS_ITS | Encounter Summary ---
Author Organization [facility] Address [address] [place] [address] Care Team Providers Care Invasive Cardiovascular Technologist Name Role Phone Dawood Clemente Unavailable [phone] Haley Melgar Unavailable Source Comments In the event this information is protected by the Federal Confidentiality of Alcohol and Drug AbusePatient Records regulations: The Federal rules restrict any use of the information to criminally investigate or prosecute any alcohol or drug abuse patient.[facility] Encounter Details Date Type Department Care Team (Late st Contact Info) Description 02/14/2025 Get Medical Advice General Surgery [address] [address] Kayleen Lee, DEBORAH.INTERACTIVE DEVELOPER [address] [address] Carina Ramos Social History Tobacco Use Types Packs/Day Years [...] is lower risk 8 04/10/2024 Data from: https://www.neighborhoodatlas.medicine.[facility]/. Last address used for calculation [address] 04/10/2024 Comments No Sex and Gender Information [...] Martha Mcneil RN documented in this encounter Plan of Treatment Not on file documented as of this encounter Visit Diagnoses Not on filedocumented in this encounter Care Teams Invasive Cardiovascular Technologist Relationship Specialty Start Date End Date Dawood Clemente [address] [facility] [address] [place] [address] Referring General Surgery 03/07/24 Allison Melgar MD [address] [place] [address] Referring Internal Medicine 04/06/25 documented as of this encounter
--- OUTSIDE RECORDS SUMMARY | 2025-06-09 12:34 | XMS_ITS | Encounter Summary ---
Author Organization [facility] Address [address] [place] [address] Care Team Providers Care Tubular Riveter Name Role Phone Mami Rosales Unavailable [phone] Encounter Details Date Type Department Care Team (Late st Contact Info) Description 06/08/2025 Abstract [facility] [address] [place] [id number] Unallocated, [facility] Provider, [address] [place], [place] [id number] Social History Tobacco Use Types Packs/Day Years Used Date Smoking Tobacco: Never Smokeless Tobacco: Never Alcohol Use Standard Drinks/Week Comments Never 0 [...] often do you attend chur ch or holiness services? Never 07/03/2023 Do you belong to any clubs o r organizations such as christianity groups, unions, fraternal or athletic groups, or [...] Recorded Patient Health Questionnaire-2 Score 1 05/21/2023 [facility] - Occupational Stress Questionnaire Answer Date Recorded [...] place to sleep or slept in a retirement (including now)? Patient refused 07/03/2023 Comments Unknown Sex and Gender Information Value Date Recorded Sex Assigned at Not on file Legal Sex Female 6:38 PM EDT Gender Identity Not on file Sexual Orientation Not on file documented as of this encounter Plan of Treatment Not on file documented as of this encounter Visit Diagnoses Not on filedocumented in this encounter Care Teams Tubular Riveter Relationship Specialty Start Date End Date Mami Rosales CRNP Referring Physician Nurse Practitioner 11/11/24 documented as of this encounter
--- OUTSIDE RECORDS SUMMARY | 2025-06-09 12:34 | XMS_ITS | Encounter Summary ---
Author Organization [employer] Address [facility] [id number] [address] [place] [address] Care Team Providers Care Fruit Packer Face And Fill Name Role Phone Amina Holcomb BURR FILER-CUPOLA CHARGER INSULATION Primary Care Provider + Encounter Details Date Type Department Care Team (Late st Contact Info) Description 06/08/2025 Telephone [facility] [address] [place] [address] Edwina Jones CMA Social History Tobacco Use Types Packs/Day [...] encounter Miscellaneous Notes * Telephone Encounter - Edwina Jones CMA - 06/08/2025 11:18 AM EDT Pt called and stated that she is having issues with controlling her bowels. Pt has been to the ER [facility] and they are not finding anything. She will wake up covered in feces and doesn't know if she needs to see a specialist or what you suggest. * Telephone Encounter - ALESSIO Lindsey - 06/08/2025 11:18 AM EDT Please set her up with a provider. Possibly [facility] in case she needs scope. documented in this encounter Plan of Treatment Upcoming Encounters Date Type Department Care Team (Late st Contact Info) Description 07/17/2025 9:20 AM EDT Office Visit [facility] [address] [place] [address] Amina Holcomb APRN-CNP [address] [place] [address] documented as of this encounter Visit Diagnoses Not on filedocumented in this encounter Additional Health Concerns Assessment Noted Time PHQ-9 Depression Total Score: 0 04/01/20 1:28 PM EDT A Body Mass Index follow-up plan has been documented for the patient 04/01/2025 2:12 PM EDT documented as of this encounter Care Teams Fruit Packer Face And Fill Relationship Specialty Start Date End Date Amina Holcomb APRN-CNP [address] [place] [address] PCP - General Family Medicine 04/24/25 documented as of this encounter
--- OUTSIDE RECORDS SUMMARY | 2025-06-09 12:34 | XMS_ITS | Encounter Summary ---
Author Organization [facility] Address [facility] [place] [address] Care Team Providers Care Pushcart Peddler Name Role Phone Clemente, Dawood Tam Unavailable [phone] Haley Melgar Unavailable Source Comments In the event this information is protected by the Federal Confidentiality of Alcohol and Drug AbusePatient Records regulations: The Federal rules restrict any use of the information to criminally investigate or prosecute any alcohol or drug abuse patient.[facility] Encounter Details Date Type Department Care Team (Late st Contact Info) Description 01/06/2025 Get Medical Advice General Surgery [address] [address] Alexis Nieto MD [address] [place] [address] Carina ramos Social History Tobacco Use Types Packs/Day Years Used Date Smoking Tobacco: Never Smokeless Tobacco: Never Area Deprivation Index Answer Date Kvng rded National Score (1-100), lower number is lower ri sk 88 04/10/2024 State Score (1-10), lower number is lower risk 8 04/10/2024 Data from: https://www.neighborhoodatlas.[facility].edu/. Last address used for calculation [address] 04/10/2024 Comments No Sex and Gender Information Value Date Recorded Sex Assigned at Not on file Legal Sex Female 10:36 AM EDT Gender Identity Not on file Sexual Orientation Not on file documented as of this encounter Plan of Treatment Not on file documented as of this encounter Visit Diagnoses Not on filedocumented in this encounter Care Teams Pushcart Peddler Relationship Specialty Start Date End Date Dawood Clemente [address] [address] Referring General Surgery 03/07/24 Allison Melgar MD [address] [facility] [place] [address] Referring Internal Medicine 04/06/25 documented as of this encounter
--- OUTSIDE RECORDS SUMMARY | 2025-06-09 12:34 | XMS_ITS | Encounter Summary ---
Author Organization [facility] Address [address] [place] [address] Care Team Providers Care Mail Examiner Name Role Phone Mami Rosales Unavailable [phone] Encounter Details Date Type Department Care Team (Late st Contact Info) Description 09/15/2024 Abstract [facility] [address] [place] [id number] Unallocated, Noms Provider, [address] [place], [place] [id number] Social History Tobacco Use Types Packs/Day Years [...] often do you attend chur ch or sikhism services? Never 07/03/2023 Do you belong to any clubs o r organizations such as latter day groups, unions, fraternal or athletic groups, or [...] Recorded Patient Health Questionnaire-2 Score 1 05/21/2023 [facility] - Occupational Stress Questionnaire Answer Date Recorded [...] place to sleep or slept in a residential (including now)? Patient refused 07/03/2023 Comments Unknown Sex and Gender Information Value Date Recorded Sex Assigned at Not on file Legal Sex Female 6:38 PM EDT Gender Identity Not on file Sexual Orientation Not on file documented as of this encounter Plan of Treatment Not on file documented as of this encounter Visit Diagnoses Not on filedocumented in this encounter Care Teams Mail Examiner Relationship Specialty Start Date End Date Mami Rosales CRNP Referring Physician Nurse Practitioner 11/11/24 documented as of this encounter
--- OUTSIDE RECORDS SUMMARY | 2025-06-09 12:34 | XMS_ITS | Encounter Summary ---
Author Organization [facility] Address [address] [place] [address] Care Team Providers Care College Or University Department Head Name Role Phone Mami Rosales Unavailable [phone] Encounter Details Date Type Department Care Team (Late st Contact Info) Description 09/15/2024 Abstract [facility] [address] [place] [id number] Unallocated, Noms Provider, [address] [place], [place] [id number] Social History Tobacco Use Types Packs/Day Years [...] often do you attend chur ch or christianity services? Never 07/03/2023 Do you belong to any clubs o r organizations such as islam groups, unions, fraternal or athletic groups, or [...] Recorded Patient Health Questionnaire-2 Score 1 05/21/2023 [facility] - Occupational Stress Questionnaire Answer Date Recorded [...] place to sleep or slept in a nursing home (including now)? Patient refused 07/03/2023 Comments Unknown Sex and Gender Information Value Date Recorded Sex Assigned at Not on file Legal Sex Female 6:38 PM EDT Gender Identity Not on file Sexual Orientation Not on file documented as of this encounter Plan of Treatment Not on file documented as of this encounter Visit Diagnoses Not on filedocumented in this encounter Care Teams College Or University Department Head Relationship Specialty Start Date End Date Mami Rosales CRNP Referring Physician Nurse Practitioner 11/11/24 documented as of this encounter
--- OUTSIDE RECORDS SUMMARY | 2025-06-09 12:34 | XMS_ITS | Clinical Summary ---
Author Organization [facility] Address [address] [place] [address], [address] [place] [address] Care Team Providers Care Loan Service Officer Name Role Phone Dedrick Gilliland MD Primary Care Provider Social History Tobacco Use Types Packs/Day Years Used Date Smoking Tobacco: Never Assessed Comments Unknown Sex and Gender Information Value Date Recorded Sex Assigned at Not on file Legal Sex Female 9:24 AM EST Gender Identity Not on file Sexual Orientation Not on file Plan of Treatment Not on file Care Teams Loan Service Officer Relationship Specialty Start Date End Date Dedrick Gilliland MD [address] [place] [address] PCP - General 11/05/12
--- OUTSIDE RECORDS SUMMARY | 2025-06-09 12:34 | XMS_ITS | Encounter Summary ---
Author Organization [facility] Address [address] [place] [address] Care Team Providers Care Fish Cutting Machine Operator Name Role Phone Mami Rosales Unavailable [phone] Encounter Details Date Type Department Care Team (Late st Contact Info) Description 09/17/[address] [facility] [address] [place] [phone] Unallocated, Noms Provider, [address] [place], [place] [id number] Social History Tobacco Use Types Packs/Day Years [...] often do you attend chur ch or yarsani services? Never 07/03/2023 Do you belong to any clubs o r organizations such as moravian groups, unions, fraternal or athletic groups, or [...] Recorded Patient Health Questionnaire-2 Score 1 05/21/2023 [facility] - Occupational Stress Questionnaire Answer [...] place to sleep or slept in a [place] health care facility (including now)? Patient refused 07/03/2023 Comments Unknown Sex and Gender Information Value Date Recorded Sex Assigned at Not on file Legal Sex Female 6:38 PM EDT Gender Identity Not on file Sexual Orientation Not on file documented as of this encounter Plan of Treatment Not on file documented as of this encounter Visit Diagnoses Not on filedocumented in this encounter Care Teams Fish Cutting Machine Operator Relationship Specialty Start Date End Date Mami Rosales CRNP Referring Physician Nurse Practitioner 11/11/24 documented as of this encounter
--- OUTSIDE RECORDS SUMMARY | 2025-06-09 12:34 | XMS_ITS | Encounter Summary ---
Author Organization [facility] Address [address] [place] [address] Care Team Providers Care Tire Bladder Maker Name Role Phone Mami Rosales Unavailable [phone] Encounter Details Date Type Department Care Team (Late st Contact Info) Description 12/10/2023 Orders Only [facility] [address] [place] [phone] A, Unknown Practice [address] [phone] Social History Tobacco Use Types Packs/Day Years [...] any clubs o r organizations such as denominational groups, unions, fraternal or athletic groups, or [...] Recorded Patient Health Questionnaire-2 Score 1 05/21/2023 [facility] - Occupational Stress Questionnaire Answer Date [...] on file documented as of this encounter Procedures Procedure Name Priority Date/Time Associated Diagnosis Comments CT ABDOMEN & PELVIS WO Routine 12/07/2023 11:07 AM EST XR CHEST 1 VIEW Routine 12/07/2023 10:17 AM EST SCANNED LABS Routine 12/06/2023 10:14 AM EST SCANNED LABS Routine 12/06/2023 10:11 AM EST documented in this encounter Results * CT ABDOMEN & PELVIS WO (12/07/2023 11:07 AM EST) Anatomical Region Laterality Modality Radiographic Elizabeth ging us Unknown Practice A IMG XR PROCEDURES Final Resul t * XR chest 1 view (12/07/2023 10:17 AM EST) Anatomical Region Laterality Modality Chest Radiographic Elizabeth ging us Unknown Practice A IMG XR PROCEDURES Final Resul t * SCANNED LABS (12/06/2023 10:14 AM EST) us Unknown Practice A LAB CHG PERFORMABLES Final Re sult * SCANNED LABS (12/06/2023 10:11 AM EST) us Unknown Practice A LAB CHG PERFORMABLES Final Re sult documented in this encounter Visit Diagnoses Not on filedocumented in this encounter Care Teams Tire Bladder Maker Relationship Specialty Start Date End Date Mami Rosales CRNP Referring Physician Nurse Practitioner 11/11/24 documented as of this encounter
--- OUTSIDE RECORDS SUMMARY | 2025-06-09 12:34 | XMS_ITS | Encounter Summary ---
Author Organization [facility] Address [address] [place] [address] Care Team Providers Care Human Relations Teacher Name Role Phone Mami Rosales Unavailable [phone] Encounter Details Date Type Department Care Team (Late st Contact Info) Description 12/10/2023 Abstract [facility] [address] [facility] [address] [place] [address] Arpit Escalante MD [address] [place] [facility] [address] [place] [address] Social History Tobacco Use Types Packs/Day Years [...] often do you attend chur ch or episcopal services? Never 07/03/2023 Do you belong to any clubs o r organizations such as roman catholic groups, unions, fraternal or athletic groups, or [...] Recorded Patient Health Questionnaire-2 Score 1 05/21/2023 [facility] - Occupational Stress Questionnaire [...] on filedocumented in this encounter Care Teams Human Relations Teacher Relationship Specialty Start Date End Date Mami Rosales CRNP Referring Physician Nurse Practitioner 11/11/24 documented as of this encounter
--- OUTSIDE RECORDS SUMMARY | 2025-06-09 12:34 | XMS_ITS | Encounter Summary ---
Author Organization [facility] Address [facility] [place] [address] Care Team Providers Care Resident Care Spec Name Role Phone Dawood Clemente Unavailable [phone] Haley Melgar Unavailable Source Comments In the event this information is protected by the Federal Confidentiality of Alcohol and Drug AbusePatient Records regulations: The Federal rules restrict any use of the information to criminally investigate or prosecute any alcohol or drug abuse patient.[facility] Encounter Details Date Type Department Care Team (Late st Contact Info) Description 12/17/2024 [place] [address] Provider, [facility] [employer] [facility] Social History Tobacco Use Types Packs/Day Years Used Date Smoking Tobacco: Never Smokeless Tobacco: Never Area Deprivation Index Answer Date Kvng rded National Score (1-100), lower number is lower ri sk 88 04/10/2024 State Score (1-10), lower number is lower risk 8 04/10/2024 Data from: https://www.neighborhoodatlas.medicine.[facility].edu/. Last address used for calculation [address] [place] [address] 04/10/2024 Comments No Sex and Gender Information Value Date Recorded Sex Assigned at Not on file Legal Sex Female 10:36 AM EDT Gender Identity Not on file Sexual Orientation Not on file documented as of this encounter Plan of Treatment Not on file documented as of this encounter Visit Diagnoses Not on filedocumented in this encounter Care Teams Resident Care Spec Relationship Specialty Start Date End Date Dawood Clemente [address] Var[address] [address] Referring General Surgery 03/07/24 Allison Melgar MD [address] [place] [address] Referring Internal Medicine 04/06/25 documented as of this encounter
--- OUTSIDE RECORDS SUMMARY | 2025-06-09 12:34 | XMS_ITS | Encounter Summary ---
Author Organization [facility] Address [address] [place] [address] Care Team Providers Care Metal Finisher Name Role Phone Dawood Clemente Unavailable [phone] Haley Melgar Unavailable Source Comments In the event this information is protected by the Federal Confidentiality of Alcohol and Drug AbusePatient Records regulations: The Federal rules restrict any use of the information to criminally investigate or prosecute any alcohol or drug abuse patient.[facility] Encounter Details Date Type Department Care Team (Late st Contact Info) Description 12/18/2024 Patient Msg General Surgery [address] [place], [place] [phone] Kayleen Lee APRN.BALANCE AND HAIRSPRING ASSEMBLER [address] [place] [address] Appointment Request Social History Tobacco Use Types Packs/Day Years Used Date Smoking Tobacco: Never Smokeless Tobacco: Never Area Deprivation Index Answer Date Kvng rded National Score (1-100), lower number is lower ri sk 88 04/10/2024 State Score (1-10), lower number is lower risk 8 04/10/2024 Data from: https://www.neighborhoodatlas.[facility].edu/. Last address used for calculation [address] 04/10/2024 Comments No Sex and Gender Information Value Date Recorded Sex Assigned at Not on file Legal Sex Female 10:36 AM EDT Gender Identity Not on file Sexual Orientation Not on file documented as of this encounter Plan of Treatment Not on file documented as of this encounter Visit Diagnoses Not on filedocumented in this encounter Care Teams Metal Finisher Relationship Specialty Start Date End Date Dawood Clemente [address] [address] Referring General Surgery 03/07/24 Allison Melgar MD [address] [facility] [place] [place] [address] Referring Internal Medicine 04/06/25 documented as of this encounter
--- OUTSIDE RECORDS SUMMARY | 2025-06-09 12:34 | XMS_ITS | Clinical Summary ---
Author Organization [facility] Address [address] [place] [phone] Phone Care Team Providers Care Rust Proofer Name Role Phone Unavailable Primary Care Provider Unavailabl e Encounters Date Type Department Care Team Description 04/27/2025 Documentation [facility] [address] [facility] [address] [place] [phone] Sonja Hoyos 04/21/2025 Telephone [facility] [address] [facility] [address] [place] [phone] Sonja Hoyos 04/21/2025 Documentation [facility] [address] [facility] [address] [place] [phone] Sonja Hoyos from Last 3 Months Social History Tobacco Use Types Packs/Day Years Used Date Smoking Tobacco: Never Assessed Comments Unknown Sex and Gender Information Value Date Recorded Sex Assigned at Not on file Legal Sex Female 6:58 PM EST Gender Identity Not on file Sexual Orientation Not on file Last Filed Vital Signs Vital Sign Reading Time Taken Comments Blood Pressure - - Pulse - - Temperature - - Respiratory Rate - - Oxygen Saturation - - Inhaled Oxygen Concentration - - Weight 134 kg (295 lb) 04/21/2025 9:00 AM EDT Height 160 cm (5' 3 ) 04/21/2025 9:00 AM EDT Body Mass Index 52.26 04/21/2025 9:00 AM EDT Plan of Treatment Not on file
--- OUTSIDE RECORDS SUMMARY | 2025-06-09 12:34 | XMS_ITS | Encounter Summary ---
Author Organization [facility] Address [address] [place] [address] Care Team Providers Care Americanization Teacher Name Role Phone Mami Rosales Unavailable [phone] Encounter Details Date Type Department Care Team (Late st Contact Info) Description 06/08/[address] [facility] [address] [facility] [address] [place] [address] Arpit Escalante MD [address] [facility] [address] [place] [address] Social History Tobacco Use Types Packs/Day Years Used Date Smoking Tobacco: Never Smokeless Tobacco: Never Alcohol Use Standard Drinks/Week Comments Never 0 (1 standard drink = 0.6 oz pure alcohol) Caffeine intake: >4 cups per day soda, chocolate PHQ-2 Answer Date Recorded Patient Health Questionnaire-2 Score 1 05/21/2023 Comments Unknown Sex and Gender Information Value Date Recorded Sex Assigned at Not on file Legal Sex Female 6:38 PM EDT Gender Identity Not on file Sexual Orientation Not on file COVID-19 Exposure Response Date Recorded In the last 10 days, have yo u been in contact with someone who was confirmed or suspected to have Coronavirus/COVID-19? No / Unsure 05/28/2023 11:12 AM EDT documented as of this encounter Plan of Treatment Not on file documented as of this encounter Visit Diagnoses Not on filedocumented in this encounter Care Teams Americanization Teacher Relationship Specialty Start Date End Date Mami Rosales CRNP Referring Physician Nurse Practitioner 11/11/24 documented as of this encounter
--- OUTSIDE RECORDS SUMMARY | 2025-06-09 12:34 | XMS_ITS | Clinical Summary ---
Author Organization [facility] [facility] Address [id number] [place] [address] Care Team Providers Care Safe Expert Name Role Phone Amina Holcomb DEBORAH-BLOW MOLD OPERATOR Primary Care Provider + Allergies Active Allergy Reactions Criticality Noted Date Comments Penicillins Hives,Rash Low 03/09/2017 Medications tiZANidine (ZANAFLEX) 4 mg tablet Take 1 tablet (4 mg total) by mouth daily as needed. 07/09/20 23 Active ergocalciferol (DRISDOL) 1,250 mcg (50,000 unit) capsuleIndication s:Vitamin D deficiency TAKE 1 CAPSULE BY MOUTH EVERY SUNDAY 12 capsule 01/01/20 24 Active amLODIPine (NORVASC) 2.5 mg tablet 02/14/20 24 Active ondansetron (ZOFRAN) 4 mg tabletIndications :Nausea Take 1 tablet (4 mg total) by mouth every 8 (eight) hours as needed for nausea or vomiting. 20 tablet 2 02/21/20 24 Active rosuvastatin (CRESTOR) 20 mg tabletIndications :Mixed hyperlipidemia TAKE 1 TABLET BY MOUTH ONCE DAILY 90 tablet 3 07/23/20 24 Active ibuprofen (MOTRIN) 800 mg tablet Take 1 tablet (800 mg total) by mouth every 8 (eight) hours as needed for pain. 21 tablet 11/06/19 25 Active pen needle, diabetic 31 gauge x 1/4 needleIndications :Uncontrolled type 2 diabetes mellitus with hyperglycemia (CMS-HCC) Inject 1 Pen Needle into the skin in the morning. 90 each 3 01/20/20 25 Active docusate sodium (COLACE) 100 mg capsule 1 capsule (100 mg total). Take for 7 days 01/18/20 25 Active phentermine (ADIPEX-P) 37.5 mg tabletIndications :Morbid obesity with BMI of 50.0-59.9, adult [place] Take 1 tablet (37.5 mg total) by mouth every morning before breakfast. 30 tablet 02/05/20 25 Active sertraline (ZOLOFT) 50 mg tabletIndications :Current mild episode of major depressive disorder, unspecified whether recurrent Take 1 tablet (50 mg total) by mouth in the morning. 90 tablet 1 02/10/20 25 Active levothyroxine (SYNTHROID, LEVOTHROID) 88 MCG tabletIndications :Acquired hypothyroidism Take 1 tablet (88 mcg total) by mouth in the morning. 90 tablet 1 02/10/20 25 Active liraglutide (VICTOZA) 0.6 mg/0.1 mL (18 mg/3 mL) pen injector Inject 1.8 mg under the skin once daily. 27 mL 6 03/16/20 25 Active TOUJEO MAX U-300 SOLOSTAR 300 unit/mL (3 mL) insulin penIndications:Ty pe 2 diabetes mellitus with stage 3 chronic kidney disease, unspecified whether custodial insulin use, unspecified whether stage 3a or 3b CKD [place] Inject 30 Units under the skin in the morning. 15 mL 3 03/31/20 25 Active empagliflozin (JARDIANCE) 10 mg tablet tabletIndications :Type 2 diabetes mellitus with hyperglycemia, with long-term current use of insulin ([facility] Take 1 tablet (10 mg total) by mouth in the morning. 90 tablet 2 04/01/20 25 Active DEXCOM G7 SENSOR deviceIndications :Type 2 diabetes mellitus with hyperglycemia, without long-term current use of insulin ([facility] APPLY 1 SENSOR EVERY 10 DAYS DIRECTED 3 each 6 04/10/20 25 Active meclizine (ANTIVERT) 25 mg tabletIndications :Vertigo TAKE 1 TABLET BY MOUTH THREE TIMES DAILY NEEDED FOR DIZZINESS 90 tablet 1 04/13/20 25 Active ALPRAZolam (XANAX) 0.25 mg tabletIndications :Social anxiety disorder Take 1 tablet (0.25 mg total) by mouth nightly as needed for anxiety. 30 tablet 05/14/20 25 Active mirabegron (MYRBETRIQ) 25 mg tablet extended release 24 hrIndications:Ove ractive bladder Take 1 tablet (25 mg total) by mouth in the morning. 90 tablet 1 05/14/20 25 Active traZODone (DESYREL) 100 mg tabletIndications :Current mild episode of major depressive disorder, unspecified whether recurrent,Vertigo TAKE 2 TABLETS BY MOUTH TWICE DAILY (IN THE MORNING AND BEFORE BEDTIME) 120 tablet 05/25/20 25 Active tolterodine (DETROL) 2 mg tabletIndications :Overactive bladder TAKE 1 TABLET BY MOUTH TWICE DAILY (IN THE MORNING AND BEFORE BEDTIME) 60 tablet 05/25/20 25 Active mirabegron (MYRBETRIQ) 25 mg tablet extended release 24 hrIndications:Ove ractive bladder Take 1 tablet (25 mg total) by mouth in the morning. 90 tablet 1 11/10/19 25 2024 Discontinued(R eorder) tolterodine (DetroL) 2 mg tabletIndications :Overactive bladder Take 1 tablet (2 mg total) by mouth in the morning and 1 tablet (2 mg total) before bedtime. 180 tablet 1 11/10/19 25 2024 Discontinued traZODone (DESYREL) 100 mg tabletIndications :Current mild episode of major depressive disorder, unspecified whether recurrent,Vertigo Take 2 tablets (200 mg total) by mouth in the morning and 2 tablets (200 mg total) before bedtime. 360 tablet 1 11/10/19 25 2024 Discontinued ALPRAZolam (XANAX) 0.25 mg tabletIndications :Social anxiety disorder TAKE 1 TABLET BY MOUTH ONCE DAILY NEEDED FOR ANXIETY 30 tablet 04/13/20 25 2024 Discontinued(R eorder) Active Problems Problem Noted Date Diagnosed Date Secondary hyperparathyroidism 02/25/2024 Partial small bowel obstruction 02/25/2024 Incisional hernia 02/04/2024 Renal insufficiency 02/04/2024 Malignant neoplasm of transverse colon Overview (01/01/2024): Onset Date: Dec 14, 2015 Onset Date: Jan 09, 2017 Onset Date: Jan 09, 2017 Acquired absence of other sp ecified parts of digestive tract 03/15/2023 Anemia, unspecified 03/15/2023 Ataxia 03/15/2023 Benign paroxysmal positional vertigo 03/15/2023 Chronic constipation 03/15/2023 Chronic fatigue syndrome 03/15/2023 Combined hyperlipidemia 03/15/2023 Contracture, right ankle 03/15/2023 GERD without esophagitis 03/15/2023 Hypothyroidism 03/15/2023 Intussusception of colon 03/15/2023 Mild recurrent major depression 03/15/2023 Nephrolithiasis 03/15/2023 OAB (overactive bladder) 03/15/2023 Obstructive sleep apnea syndrome 03/15/2023 Osteochondritis dissecans of left ankle 03/15/20 Polycystic ovaries 03/15/2023 Renal atrophy, left 03/15/2023 Renal mass 03/15/2023 Social anxiety disorder 03/15/2023 Stage 3 chronic kidney disease 03/15/2023 Type 2 diabetes mellitus wit h diabetic chronic kidney disease 03/15/2023 Vertigo of central origin 03/15/2023 Vestibular dysfunction 03/15/2023 Vitamin D deficiency 03/15/2023 Iron deficiency anemia due to chronic blood loss 11/15/2017 History of excision of intestinal structure 08/31 Malignant neoplasm of transverse colon 7 Cancer Staging:Clinical:Stage IIB(T4a, N0, M0) - Signed by Candelario Sanchez MD on 05/10/2017 Encounters Date Type Department Care Team Description 06/08/2025 Telephone [facility] [address] [place] [phone] Edwina Jones CMA 05/21/2025 Refill [facility] [address] [place] [address] Jadyn Styles CMA Overactive bladder; Current mild episode of major depressive disorder, unspecified whether recurrent; Vertigo 05/20/2025 Refill [facility] [address] [place] [address] Mami Rosales, SINK CUTTER-BLOW MOLD OPERATOR Overactive bladder 05/19/2025 Refill [facility] [address] [place] [address] Mami Rosales APRN-ROBI Current mild episode of major depressive disorder, unspecified whether recurrent; Vertigo 05/19/2025 Orders Only [facility] [address] [place] [address] Ref Prov, Not In System 05/14/2025 Orders Only [facility] [address] [place] [address] Amina Holcomb APRN-ROBI 05/13/2025 Refill [facility] [address] [place] [address] Susannah Conde, [facility] Social anxiety disorder; Overactive bladder 04/13/2025 Refill [facility] [address] [place] [address] Jadyn Styles, [facility] Social anxiety disorder; Vertigo 04/11/2025 Refill [facility] [address] [place] [address] Mami Rosales APRN-ROBI Social anxiety disorder; Vertigo 04/10/2025 Refill [facility] [address] [place] [address] Mami Rosales APRN-ROBI Type 2 diabetes mellitus with hyperglycemia, without long-term current use of insulin ([facility]) 04/01/2025 1:40 PM EDT Office Visit [facility] [address] [place] [address] Mami Rosales APRN-ROBI Type 2 diabetes mellitus with stage 3 chronic kidney disease, unspecified whether vehicle painter insulin use, unspecified whether stage 3a or 3b CKD [place] [place] (Primary Dx) 04/01/2025 Travel 04/01/2025 Refill [facility] [address] [place] [address] Jadyn Styles CMA Type 2 diabetes mellitus with hyperglycemia, with long-term current use of insulin ([facility] [place] 03/31/2025 Orders Only [facility] [address] [place] [address] Mami Rosales APRN-ROBI Type 2 diabetes mellitus with stage 3 chronic kidney disease, unspecified whether custodial insulin use, unspecified whether stage 3a or 3b CKD ([facility] (Primary Dx) 03/17/2025 Orders Only [facility] [address] [place] [address] Mami Rosales APRN-ROBI 03/16/2025 Refill [facility] [address] [place] [address] Mami Rosales APRN-ROBI Social anxiety disorder 03/10/2025 Refill [facility] [address] [place] [address] Mami Rosales APRN-ROBI from Last 3 Months Family History Medical History Relation Name Comments Colon cancer Father Throat cancer Father Lung cancer Maternal Grandfather Prostate cancer Paternal Grandfather Colon cancer Paternal Uncle Relation Name Status Comments Father Alive Maternal Grandfather Maternal Uncle Mother Alive Paternal Grandfather Paternal Uncle Social History Tobacco Use Types Packs/Day Years Used Date Smoking Tobacco: Never Smokeless Tobacco: Never Tobacco Cessation:Counseling Given: Not Answered Alcohol Use Standard Drinks/Week Comments No 0 [...] Sign Reading Time Taken Comments Blood Pressure 138/84 04/01/2025 1:28 PM EDT Pulse 80 04/01/2025 1:28 PM EDT Temperature 36.3 C (97.4 F) 04/01/2025 1:28 PM EDT Respiratory Rate 18 04/01/2025 1:28 PM EDT Oxygen Saturation 97% 04/01/2025 1:28 PM EDT Inhaled Oxygen Concentration - - Weight 131.5 kg (290 lb) 04/01/2025 1:28 PM EDT Height 160 cm (5' 2.99 ) 04/01/2025 1:28 PM EDT Body Mass Index 51.38 04/01/2025 1:28 PM EDT Plan of Treatment Upcoming Encounters Date Type Department Care Team (Late st Contact Info) Description 07/17/2025 9:20 AM EDT Office Visit [facility] [address] [place] [phone] Amina Holcomb, SINK CUTTER-BLOW MOLD OPERATOR [address] [place] [address] Health Maintenance Due Date Last Done Comments Diabetic Ophthalmology Exam 1979 DTaP,Tdap and Td Vaccines (1 - Tdap) 1998 Pap Smear 2000 Mammogram 03/21/2022 03/21/2021 COVID-19 Vaccine ( season) 2024 11/07/2021, 04/19/2021, 03/21/2021 Diabetic Foot Exam 05/05/2025 05/05/2024 Influenza Vaccine 06/29/2025 Adult BMI Follow Up Plan 04/01/2026 04/01/2025 Adult BMI Screening 04/01/2026 04/01/2025 Depression Screening 04/01/2026 04/01/2025 Tobacco Screening 04/01/2026 04/01/2025 Medical Devices Not on file Procedures Procedure Name Priority Date/Time Associated Diagnosis Comments , URINE Routine 04/29/2025 8:51 AM EDT POCT HEMOGLOBIN A1C Routine 04/01/2025 2 :11 PM EDT Type 2 diabetes mellitus with stage 3 chronic kidney disease, unspecified whether vehicle painter insulin use, unspecified whether stage 3a or 3b CKD ([facility]) from Last 3 Months Results * , urine (04/29/2025 8:51 AM EDT) us Not In System Ref Prov URINE ORDERABLES Final Re sult Performing Organization Address City/[facility]/ZIP Co de Phone Number MANUALLY TRANSCRIBED RESULTS * POCT Hemoglobin A1c (04/01/2025 2:11 PM EDT) External Poct Hgb A1C 6.0 4 - 7 % MANUALLY TRANSCRIBED RESULTS Blood 04/01/2025 2:11 PM EDT us Mami Rosales APRN-BLOW MOLD OPERATOR POINT OF CARE TEST O RDERABLES Final Result Performing Organization Address City/[facility]/ZIP Co de Phone Number MANUALLY TRANSCRIBED RESULTS from Last 3 Months Insurance [employer] Care Teams Safe Expert Relationship Specialty Start Date End Date Amina Holcomb, SINK CUTTER-BLOW MOLD OPERATOR [address] [place] [address] PCP - General Family Medicine 04/24/25
--- OUTSIDE RECORDS SUMMARY | 2025-06-09 12:34 | XMS_ITS | Encounter Summary ---
Author Organization [facility] Address [address] [place] [address] Care Team Providers Care Rigging Supervisor Name Role Phone Mami Rosales Unavailable [phone] Encounter Details Date Type Department Care Team (Late st Contact Info) Description 05/14/2023 Orders Only [facility] [address] [place] [address] Gilda Alvarez, [address] [place] [address] Social History Tobacco Use Types Packs/Day Years Used Date Smoking Tobacco: Never Smokeless Tobacco: Never Alcohol Use Standard Drinks/Week Comments Never 0 (1 standard drink = 0.6 oz pure alcohol) Caffeine intake: >4 cups per day soda, chocolate PHQ-2 Answer Date Recorded Patient Health Questionnaire-2 Score 1 04/09/2023 Comments Unknown Sex and Gender Information Value Date Recorded Sex Assigned at Not on file Legal Sex Female 6:38 PM EDT Gender Identity Not on file Sexual Orientation Not on file documented as of this encounter Plan of Treatment Not on file documented as of this encounter Procedures Procedure Name Priority Date/Time Associated Diagnosis Comments CT ABDOMEN & PELVIS WO Routine 05/12/2023 11:57 AM EDT documented in this encounter Results * CT ABDOMEN & PELVIS WO (05/12/2023 11:57 AM EDT) Anatomical Region Laterality Modality Radiographic Elizabeth ging us Gilda Alvarez DO IMG XR PROCEDURES Final Resu lt documented in this encounter Visit Diagnoses Not on filedocumented in this encounter Care Teams Rigging Supervisor Relationship Specialty Start Date End Date Mami Rosales CRNP Referring Physician Nurse Practitioner 11/11/24 documented as of this encounter
--- OUTSIDE RECORDS SUMMARY | 2025-06-09 12:34 | XMS_ITS | Encounter Summary ---
Author Organization [employer] Address [id number] [address] [place] [address] Care Team Providers Care Agricultural Chemicals Inspector Name Role Phone Amina Holcomb BLACKING MACHINE OPERATOR-BILINGUAL MANAGER Primary Care Provider + Reason for Visit * Reason Onset Date Comments Med Refill 05/21/2025 Encounter Details Date Type Department Care Team (Late st Contact Info) Description 05/21/2025 Refill [facility] [address] [place] [address] Jadyn Styles CMA Overactive bladder; Current mild episode of major depressive disorder, unspecified whether recurrent; Vertigo Social History Tobacco Use Types Packs/Day [...] Medicine - Family Medicine [address] [place] [address] Amina Holcomb APRN-BILINGUAL MANAGER [address] [place] [address] documented as of this encounter Visit Diagnoses Diagnosis Overactive bladder Hypertonicity of bladder Current mild episode of major depressive disorder, unspecified whether recurrent Vertigo Dizziness and giddiness documented in this encounter Additional Health Concerns Assessment Noted Time PHQ-9 Depression Total Score: 0 04/01/20 1:28 PM EDT A Body Mass Index follow-up plan has been documented for the patient 04/01/2025 2:12 PM EDT documented as of this encounter Care Teams Agricultural Chemicals Inspector Relationship Specialty Start Date End Date Amina Holcomb, DEBORAH-BILINGUAL MANAGER [address] [place] [address] PCP - General Family Medicine 04/24/25 documented as of this encounter
--- OUTSIDE RECORDS SUMMARY | 2025-06-09 12:34 | XMS_ITS | Encounter Summary ---
Author Organization [facility] Address [address] [place] [address] Care Team Providers Care Assistant Center Manager Name Role Phone Dawood Clemente Unavailable Haley Melgar Unavailable Source Comments In the event this information is protected by the Federal Confidentiality of Alcohol and Drug AbusePatient Records regulations: The Federal rules restrict any use of the information to criminally investigate or prosecute any alcohol or drug abuse patient.[facility] Encounter Details Date Type Department Care Team (Late st Contact Info) Description 12/17/2024 Patient Msg General Surgery [address] [place], [place] [id number] Kayleen Lee APRN.PLATE STRAIGHTENER [address] [place] [address] Appointment Request Social History Tobacco Use Types Packs/Day Years Used Date Smoking Tobacco: Never Smokeless Tobacco: Never Area Deprivation Index Answer Date Kvng rded National Score (1-100), lower number is lower ri sk 88 04/10/2024 State Score (1-10), lower number is lower risk 8 04/10/2024 Data from: https://www.neighborhoodatlas.[facility].edu/. Last address used for calculation [address] 04/10/2024 Comments No Sex and Gender Information Value Date Recorded Sex Assigned at Not on file Legal Sex Female 10:36 AM EDT Gender Identity Not on file Sexual Orientation Not on file documented as of this encounter Plan of Treatment Not on file documented as of this encounter Visit Diagnoses Not on filedocumented in this encounter Care Teams Assistant Center Manager Relationship Specialty Start Date End Date Dawood Clemente [address] [address] Referring General Surgery 03/07/24 Allison Melgar MD [address] [facility] [address] Referring Internal Medicine 04/06/25 documented as of this encounter
--- OUTSIDE RECORDS SUMMARY | 2025-06-09 12:34 | XMS_ITS | Encounter Summary ---
Author Organization [facility] Address [address] [place] [address] Care Team Providers Care Cardiovascular Technician Name Role Phone Dawood Clemente Unavailable [phone] Haley Melgar Unavailable Source Comments In the event this information is protected by the Federal Confidentiality of Alcohol and Drug AbusePatient Records regulations: The Federal rules restrict any use of the information to criminally investigate or prosecute any alcohol or drug abuse patient.[facility] Encounter Details Date Type Department Care Team (Late st Contact Info) Description 11/21/2024 Patient Msg Neurology [address] [place], [place] [phone] Provider, [facility] sleep study Social History Tobacco Use Types Packs/Day Years Used Date Smoking Tobacco: Never Smokeless Tobacco: Never Area Deprivation Index Answer Date Kvng rded National Score (1-100), lower number is lower ri sk 88 04/10/2024 State Score (1-10), lower number is lower risk 8 04/10/2024 Data from: https://www.neighborhoodatlas.medicine.[facility].edu/. Last address used for calculation [address] [place] [address] 04/10/2024 Comments No Sex and Gender Information Value Date Recorded Sex Assigned at Not on file Legal Sex Female 10:36 AM EDT Gender Identity Not on file Sexual Orientation Not on file documented as of this encounter Plan of Treatment Not on file documented as of this encounter Visit Diagnoses Not on filedocumented in this encounter Care Teams Cardiovascular Technician Relationship Specialty Start Date End Date Dawood Clemente [address] [address] [place] [address] Referring General Surgery 03/07/24 Allison Melgar MD [address] [place] [address] Referring Internal Medicine 04/06/25 documented as of this encounter
--- OUTSIDE RECORDS SUMMARY | 2025-06-09 12:34 | XMS_ITS | Encounter Summary ---
Author Organization [facility] Address [address] [place] [address] Care Team Providers Care Edge Stainer Name Role Phone Dawood Clemente Unavailable [phone] Haley Melgar Unavailable Source Comments In the event this information is protected by the Federal Confidentiality of Alcohol and Drug AbusePatient Records regulations: The Federal rules restrict any use of the information to criminally investigate or prosecute any alcohol or drug abuse patient.[facility] Encounter Details Date Type Department Care Team (Late st Contact Info) Description 12/08/2024 Get Medical Advice General Surgery [address] [place] [address] Kayleen Lee APRN.PROGRAM EVALUATOR [address] [address] Carina ramos Social History Tobacco Use Types Packs/Day Years Used Date Smoking Tobacco: Never Smokeless Tobacco: Never Area Deprivation Index Answer Date Kvng rded National Score (1-100), lower number is lower ri sk 88 04/10/2024 State Score (1-10), lower number is lower risk 8 04/10/2024 Data from: https://www.neighborhoodatlas.medicine.[facility]/. Last address used for calculation [address] 04/10/2024 Comments No Sex and Gender Information Value Date Recorded Sex Assigned at Not on file Legal Sex Female 10:36 AM EDT Gender Identity Not on file Sexual Orientation Not on file documented as of this encounter Plan of Treatment Not on file documented as of this encounter Visit Diagnoses Not on filedocumented in this encounter Care Teams Edge Stainer Relationship Specialty Start Date End Date Dawood Clemente [address] [place] [address] [place] [address] Referring General Surgery 03/07/24 Allison Melgar MD [address] [facility] [address] Referring Internal Medicine 04/06/25 documented as of this encounter
--- OUTSIDE RECORDS SUMMARY | 2025-06-09 12:34 | XMS_ITS | Encounter Summary ---
Author Organization [facility] Address [address] [place] [address] Care Team Providers Care Hydraulic Lift Operator Name Role Phone Mami Rosales Unavailable [phone] Encounter Details Date Type Department Care Team (Late st Contact Info) Description 12/26/2023 Abstract [facility] [address] [facility] [address] [place] [address] Arpit Escalante MD [address] [place] [address] [place] [address] Social History Tobacco Use Types Packs/Day Years [...] often do you attend chur ch or taoism services? Never 07/03/2023 Do you belong to any clubs o r organizations such as nondenominational groups, unions, fraternal or athletic groups, or [...] Recorded Patient Health Questionnaire-2 Score 1 [facility]20[facility] - [facility]ational Stress Questionnaire Answer [...] place to sleep or slept in a half-way (including now)? Patient refused 07/03/2023 Comments Unknown Sex and Gender Information Value Date Recorded Sex Assigned at Not on file Legal Sex Female 6:38 PM EDT Gender Identity Not on file Sexual Orientation Not on file documented as of this encounter Plan of Treatment Not on file documented as of this encounter Visit Diagnoses Not on filedocumented in this encounter Care Teams Hydraulic Lift Operator Relationship Specialty Start Date End Date Mami Rosales CRNP Referring Physician Nurse Practitioner 11/11/24 documented as of this encounter
--- OUTSIDE RECORDS SUMMARY | 2025-06-09 12:34 | XMS_ITS | Encounter Summary ---
Author Organization [facility] Address [address] [place] [address] Care Team Providers Care Focuser Name Role Phone Mami Rosales Unavailable [phone] Encounter Details Date Type Department Care Team (Late st Contact Info) Description 02/10/2024 External Result Encounter [facility] External Department Unsolicited Dawood Clemente MD [address] [address] Social History Tobacco Use Types Packs/Day Years [...] often do you attend chur ch or bahai services? Never 07/03/2023 Do you belong to any clubs o r organizations such as worship groups, unions, fraternal or athletic groups, or [...] Recorded Patient Health Questionnaire-2 Score 1 05/21/2023 [facility] - Occupational Stress Questionnaire Answer Date Recorded [...] place to sleep or slept in a senior living (including now)? Patient refused 07/03/2023 Comments Unknown Sex and Gender Information Value Date Recorded Sex Assigned at Not on file Legal Sex Female 6:38 PM EDT Gender Identity Not on file Sexual Orientation Not on file documented as of this encounter Plan of Treatment Not on file documented as of this encounter Procedures Procedure Name Priority Date/Time Associated Diagnosis Comments XR ABDOMEN 2 VIEW 02/10/2024 8:4 2 AM EDT documented in this encounter Results * XR ABDOMEN 2 VIEW (02/10/2024 8:42 AM EDT) Anatomical Region Laterality Modality Abdomen Radiographic Elizabeth ging 02/10/2024 8:42 AM EDT Impressions 02/10/2024 8:46 AM EDT Dilated air-filled colon is redemonstrated with a few mildly prominent loops of small bowel. Stool and bowel gas reaches the rectum. The enteric tube is in satisfactory position. Impression dictated by: Chaz Fitzgerald M.D.02/10/2024 8:44 AM Dictation Location: [place] [address] Transcribed By: [facility] 02/10/24843 Dictated By: Chaz Fitzgerald II, MD 02/10/24841 Signed By: <Electronically signed by Chaz Fitzgerald II, MD in OV> 02/10/24843 Narrative 02/10/2024 8:46 AM EDT [address] [address] XRay Report Signed Patient: Carina Ramos MR#: [id number] 102 : 1980 Acct:[id number] Age/Sex: 43 / F ADM Date: 02/08/24 Loc: 4N Room: [address] [place] [address] Type: ADM IN Attending Dr: Jayro Bucio MD Copies to: MD Jayro Gilmore MD Ordering Provider: Dawood Clemente MD Date of Service: 02/10/24 XR/XR abdomen min 2V: Follow-up bowel obstruction XR abdomen min 2V 02/09/2024 1:00 PM SIGNS AND SYMPTOMS: Follow-up bowel obstruction PROTOCOL: Frontal radiograph of the abdomen COMPARISON: 02/09/2024 FINDINGS: Dilated air-filled colon is redemonstrated with a few mildly prominent loops of small bowel. Stool and bowel gas reaches the rectum. Vascular calcifications are present in the pelvis. There is evidence of prior cholecystectomy. Enteric tube is in satisfactory position. XR/XR abdomen min 2V Procedure Note Radiology, Radiologist, MD - 02/10/2024 [place] [address] XRay Report Signed Patient: Carina Ramos AMR#: [id number] 102 : 1980Acct:[id number] Age/Sex: 43 / FADM Date: 02/08/24 Loc: 4N Room: [id number]: ADM IN Attending Dr: Jayro Bucio MD Copies to: MD Jayro Gilmore MD Ordering Provider: Dawood Clemente MD Date of Service: 02/10/24 XR/XR abdomen min 2V: Follow-up bowelobstruction XR abdomen min 2V 02/09/2024 1:00 PM SIGNS AND SYMPTOMS: Follow-up bowel obstruction PROTOCOL: Frontal radiograph of the abdomen COMPARISON: 02/09/2024 FINDINGS: Dilated air-filled colon is redemonstrated with a few mildly prominentloops of small bowel. Stool and bowel gas reaches the rectum. Vascular calcifications are present inthe pelvis. There is evidence of prior cholecystectomy. Enteric tube is in satisfactoryposition. XR/XR abdomen min 2V IMPRESSION: Dilated air-filled colon is redemonstrated with a few mildly prominentloops of small bowel. Stool and bowel gas reaches the rectum. The enteric tube is in satisfactory position. Impression dictated by: Chaz Fitzgerald M.D.02/10/2024 8:44 AM Dictation Location: [place] [address] Transcribed By: [facility] 02/10/24 0844 Dictated By: Chaz Fitzgerald II, MD 02/10/24 0842 Signed By: <Electronically signed by Chaz Fitzgerald II, MD inOV> 02/10/24 0844 Dawood Quiroz MD IMG XR PROCEDURES Final Resu lt documented in this encounter Visit Diagnoses Not on filedocumented in this encounter Care Teams Focuser Relationship Specialty Start Date End Date Mami Rosales CRNP Referring Physician Nurse Practitioner 11/11/24 documented as of this encounter
--- OUTSIDE RECORDS SUMMARY | 2025-06-09 12:34 | XMS_ITS | Encounter Summary ---
Author Organization [employer] Address [facility] [id number] [address] [place] [address] Care Team Providers Care Ror Engineer Name Role Phone Amina Holcomb BLASTING HELPER-ONLINE MERCHANDISING COORDINATOR Primary Care Provider + Encounter Details Date Type Department Care Team (Late Contact Info) Description 05/19/2025 Orders Only [facility] - Family Medicine [address] [place] [address] Ref Prov, [place] [address] Social History Tobacco Use Types Packs/Day Years [...] Medicine - Family Medicine [address] [place] [address] Amina Holcomb APRN-CNP [address] [place] [address] documented as of this encounter Procedures Procedure Name Priority Date/Time Associated Diagnosis Comments , URINE Routine 04/29/2025 8:51 AM EDT documented in this encounter Results * , urine (04/29/2025 8:51 AM EDT) us Not In System Ref Prov URINE ORDERABLES Final Re sult MANUALLY TRANSCRIBED RESULTS documented in this encounter Visit Diagnoses Not on filedocumented in this encounter Additional Health Concerns Assessment Noted Time PHQ-9 Depression Total Score: 0 04/01/20 1:28 PM EDT A Body Mass Index follow-up plan has been documented for the patient 04/01/2025 2:12 PM EDT documented as of this encounter Care Teams Ror Engineer Relationship Specialty Start Date End Date Amina Holcomb APRN-CNP [address] [place] [address] PCP - General Family Medicine 04/24/25 documented as of this encounter
--- OUTSIDE RECORDS SUMMARY | 2025-06-09 12:34 | XMS_ITS | Encounter Summary ---
Author Organization [facility] Address [address] [place] [address] Care Team Providers Care Program Management Specialist Name Role Phone Dawood Clemente Unavailable [phone] Haley Melgar Unavailable Source Comments In the event this information is protected by the Federal Confidentiality of Alcohol and Drug AbusePatient Records regulations: The Federal rules restrict any use of the information to criminally investigate or prosecute any alcohol or drug abuse patient.[facility] Encounter Details Date Type Department Care Team (Late st Contact Info) Description 12/08/2024 Get Medical Advice General Surgery [address] [place] [address] Kayleen Lee APRN.COCONUT CANDY MAKER [address] [address] Carina Ramos Social History Tobacco Use Types Packs/Day Years Used Date Smoking Tobacco: Never Smokeless Tobacco: Never Area Deprivation Index Answer Date Kvng rded National Score (1-100), lower number is lower ri sk 88 04/10/2024 State Score (1-10), lower number is lower risk 8 04/10/2024 Data from: https://www.neighborhoodatlas.medicine.[facility]/. Last address used for calculation [address] 04/10/2024 Comments No Sex and Gender Information Value Date Recorded Sex Assigned at Not on file Legal Sex Female 10:36 AM EDT Gender Identity Not on file Sexual Orientation Not on file documented as of this encounter Plan of Treatment Not on file documented as of this encounter Visit Diagnoses Not on filedocumented in this encounter Care Teams Program Management Specialist Relationship Specialty Start Date End Date Dawood Clemente [address] [place] [address] [place] [address] Referring General Surgery 03/07/24 Allison Melgar MD [address] [facility] [place] [address] Referring Internal Medicine 04/06/25 documented as of this encounter
--- OUTSIDE RECORDS SUMMARY | 2025-06-09 12:34 | XMS_ITS | Encounter Summary ---
Author Organization [facility] Address [address] [place] [address] Care Team Providers Care Tire Trucker Name Role Phone Mami Rosales Unavailable [phone] Encounter Details Date Type Department Care Team (Late st Contact Info) Description 08/21/2023 Abstract [facility] [address] [facility] [address] [place] [address] Arpit Escalante MD [address] [place] [facility] 110 [place] [address] Social History Tobacco Use Types Packs/Day Years [...] any clubs o r organizations such as hoahaoism groups, unions, fraternal or athletic groups, or [...] Recorded Patient Health Questionnaire-2 Score 1 05/21/2023 [facility] - Occupational Stress Questionnaire Answer Date [...] place to sleep or slept in a usp (including now)? Patient refused 07/03/2023 Comments Unknown Sex and Gender Information Value Date Recorded Sex Assigned at Not on file Legal Sex Female 6:38 PM EDT Gender Identity Not on file Sexual Orientation Not on file documented as of this encounter Plan of Treatment Not on file documented as of this encounter Visit Diagnoses Not on filedocumented in this encounter Care Teams Tire Trucker Relationship Specialty Start Date End Date Mami Rosales CRNP Referring Physician Nurse Practitioner 11/11/24 documented as of this encounter
--- OUTSIDE RECORDS SUMMARY | 2025-06-09 12:34 | XMS_ITS | Encounter Summary ---
Author Organization [employer] Address [id number] [address] [place] [address] Care Team Providers Care Transformer Molder Name Role Phone Amina Holcomb VENETIAN BLIND CLEANER-STILL TENDER Primary Care Provider + Encounter Details Date Type Department Care Team (Late st Contact Info) Description 08/27/2024 Telephone [facility] [address] [place] [address] Susannah Conde CMA Social History Tobacco Use Types Packs/Day [...] encounter Miscellaneous Notes * Telephone Encounter - Susannah Conde CMA - 08/27/2024 8:36 AM EDT ----- Message from ALESSIO Sharma sent at 08/26/2024 8:24 AM EDT ----- Reviewed. Inform patient TSH is 4.45, right at the border of abnormal. I sent over new order to increase levothyroxine to 88 mcg oral daily documented in this encounter Plan of Treatment Upcoming Encounters Date Type Department Care Team (Late st Contact Info) Description 07/17/2025 9:20 AM EDT Office Visit [facility] Internal Medicine - Family Medicine [address] [place] [address] Amina Holcomb APRN-CNP [address] [place] [address] documented as of this encounter Visit Diagnoses Not on filedocumented in this encounter Additional Health Concerns Assessment Noted Time PHQ-9 Depression Total Score: 0 05/05/20 24 9:42 AM EDT A Body Mass Index follow-up plan has been documented for the patient 08/25/2024 1:47 PM EDT documented as of this encounter Care Teams Transformer Molder Relationship Specialty Start Date End Date Amina Holcomb APRN-CNP [address] [place] [address] PCP - General Family Medicine 04/24/25 documented as of this encounter
--- OUTSIDE RECORDS SUMMARY | 2025-06-09 12:34 | XMS_ITS | Encounter Summary ---
Author Organization [facility] Address [address] [place] [address] Care Team Providers Care Automatic Vulcanizing Lead Operator Name Role Phone Mami Rosales Unavailable [phone] Encounter Details Date Type Department Care Team (Late st Contact Info) Description 12/06/2023 Abstract [facility] [address] [facility] 110 [place] [address] Arpit Escalante MD [address] [place] [facility] 110 [place] [address] Social History Tobacco Use Types Packs/Day Years [...] often do you attend chur ch or restoration services? Never 07/03/2023 Do you belong to any clubs o r organizations such as scientology groups, unions, fraternal or athletic groups, or [...] Recorded Patient Health Questionnaire-2 Score 1 05/21/2023 [facility] - Occupational Stress Questionnaire Answer Date [...] place to sleep or slept in a alf (including now)? Patient refused 07/03/2023 Comments Unknown Sex and Gender Information Value Date Recorded Sex Assigned at Not on file Legal Sex Female 6:38 PM EDT Gender Identity Not on file Sexual Orientation Not on file documented as of this encounter Plan of Treatment Not on file documented as of this encounter Visit Diagnoses Not on filedocumented in this encounter Care Teams Automatic Vulcanizing Lead Operator Relationship Specialty Start Date End Date Mami Rosales CRNP Referring Physician Nurse Practitioner 11/11/24 documented as of this encounter
--- OUTSIDE RECORDS SUMMARY | 2025-06-09 12:34 | XMS_ITS | Encounter Summary ---
Author Organization [facility] Address [address] [place] [address] Care Team Providers Care Graining Press Operator Name Role Phone Mami Rosales Unavailable [phone] Encounter Details Date Type Department Care Team (Late st Contact Info) Description 06/08/2025 Abstract [facility] [address] [place] [address] [place] [address] Unallocated, Noms Provider, [address] [place], [place] [address] Social History Tobacco Use Types Packs/Day Years [...] Recorded Patient Health Questionnaire-2 Score 1 05/21/2023 [facility] - Occupational Stress Questionnaire Answer [...] on filedocumented in this encounter Care Teams Graining Press Operator Relationship Specialty Start Date End Date Mami Rosales CRNP Referring Physician Nurse Practitioner 11/11/24 documented as of this encounter
--- OUTSIDE RECORDS SUMMARY | 2025-06-09 12:34 | XMS_ITS | Encounter Summary ---
Author Organization [facility] Address [address] [place] [address] Care Team Providers Care Sanding Line Operator Name Role Phone Mami Rosales Unavailable [phone] Encounter Details Date Type Department Care Team (Late st Contact Info) Description 09/16/2024 Abstract [facility] [address] [place] [address] [place] [address] Unallocated, Noms Provider, [address] [place], [place] [address] Social History Tobacco Use Types Packs/Day Years [...] any clubs o r organizations such as yarsanism groups, unions, fraternal or athletic groups, or [...] Recorded Patient Health Questionnaire-2 Score 1 05/21/2023 [facility] - Occupational Stress Questionnaire Answer [...] place to sleep or slept in a correction (including now)? Patient refused 07/03/2023 Comments Unknown Sex and Gender Information Value Date Recorded Sex Assigned at Not on file Legal Sex Female 6:38 PM EDT Gender Identity Not on file Sexual Orientation Not on file documented as of this encounter Plan of Treatment Not on file documented as of this encounter Visit Diagnoses Not on filedocumented in this encounter Care Teams Sanding Line Operator Relationship Specialty Start Date End Date Mami oRsales CRNP Referring Physician Nurse Practitioner 11/11/24 documented as of this encounter
--- OUTSIDE RECORDS SUMMARY | 2025-06-09 12:34 | XMS_ITS | Encounter Summary ---
Author Organization [facility] Address [address] [place] [address] Care Team Providers Care Security Rep Name Role Phone Mami Rosales Unavailable [phone] Encounter Details Date Type Department Care Team (Late st Contact Info) Description 02/09/2024 External Result Encounter [facility] External Department Unsolicited Dawood Clemente MD [address] [address] Social History Tobacco Use Types Packs/Day Years [...] often do you attend chur ch or zoroastrianism services? Never 07/03/2023 Do you belong to any clubs o r organizations such as rastafarian groups, unions, fraternal or athletic groups, or [...] Recorded Patient Health Questionnaire-2 Score 1 05/21/2023 [facility] [...] Associated Diagnosis Comments XR ABDOMEN 2 VIEW 02/09/2024 10: 57 AM EDT documented in this encounter Results * XR ABDOMEN 2 VIEW (02/09/2024 10:57 AM EDT) Anatomical Region Laterality Modality Abdomen Radiographic Elizabeth ging 02/09/2024 10:5 7 AM EDT Impressions 02/09/2024 11:02 AM EDT Satisfactory positioning of the enteric tube. Redemonstration of air-filled loops of dilated colon. Impression dictated by: Chaz Fitzgerald M.D.02/09/2024 10:59 AM Dictation Location: [place] [address] Transcribed By: [facility] 02/09/24 1059 Dictated By: Chaz Fitzgerald II, MD 02/09/24 1057 Signed By: <Electronically signed by Chaz Fitzgerald II, MD in OV> 02/09/24 1059 Narrative 02/09/2024 11:02 AM EDT [facility] [place] [id number] XRay Report Signed Patient: Carina Ramos MR#: [id number] 102 : 1980 Acct:[id number] Age/Sex: 43 / F ADM Date: 02/08/24 Loc: 4N Room: [address] [place] [address] Type: ADM IN Attending Dr: Jayro Bucio MD Copies to: MD Jayro Gilmore MD Ordering Provider: Dawood Clemente MD Date of Service: 02/09/24 XR/XR abdomen min 2V: Follow-up bowel obstruction XR abdomen min 2V 02/08/2024 5:23 PM SIGNS AND SYMPTOMS: Enteric tube placement PROTOCOL: Frontal radiographs of the abdomen and pelvis COMPARISON: 02/08/2024 FINDINGS: The enteric tube has been placed with the tip in the left upper quadrant satisfactory position. Dilated loops of air-filled colon are redemonstrated. There is no radiographic evidence of free air. Surgical clips are noted in the right upper quadrant consistent with prior cholecystectomy. XR/XR abdomen min 2V Procedure Note Radiology, Radiologist, - 02/09/2024 [facility] [place] [address] [place], [place] [address] XRay Report Signed Patient: Carina Ramos AMR#: [id number] 102 : 1980Acct:[id number] Age/Sex: 43 / FADM Date: 02/08/24 Loc: 4N Room: [id number]: ADM IN Attending Dr: Jayro Bucio MD Copies to: MD Jayro Gilmore MD Ordering Provider: Dawood Clemente MD Date of Service: 02/09/24 XR/XR abdomen min 2V: Follow-up bowelobstruction XR abdomen min 2V 02/08/2024 5:23 PM SIGNS AND SYMPTOMS: Enteric tube placement PROTOCOL: Frontal radiographs of the abdomen and pelvis COMPARISON: 02/08/2024 FINDINGS: The enteric tube has been placed with the tip in the left upper quadrantsatisfactory position. Dilated loops of air-filled colon are redemonstrated. There is noradiographic evidence of free air. Surgical clips are noted in the right upper quadrant consistent with priorcholecystectomy. XR/XR abdomen min 2V IMPRESSION: Satisfactory positioning of the enteric tube. Redemonstration of air-filled loops of dilated colon. Impression dictated by: Chaz Fitzgerald M.D.02/09/2024 10:59 AM Dictation Location: [place] [address] Transcribed By: [facility] 02/09/24 1059 Dictated By: Chaz Fitzgerald II, MD 02/09/24 1057 Signed By: <Electronically signed by Chaz Fitzgerald II, MD inOV> 02/09/24 1059 us Dawood Quiroz MD IMG XR PROCEDURES Final Resu lt documented in this encounter Visit Diagnoses Not on filedocumented in this encounter Care Teams Security Rep Relationship Specialty Start Date End Date Mami Rosales CRNP Referring Physician Nurse Practitioner 11/11/24 documented as of this encounter
--- OUTSIDE RECORDS SUMMARY | 2025-06-09 12:34 | XMS_ITS | Encounter Summary ---
Author Organization [facility] Address [address] [place] [address] Care Team Providers Care Customs Appraiser Name Role Phone Mami Rosales Unavailable [phone] Encounter Details Date Type Department Care Team (Late st Contact Info) Description 06/27/2023 Abstract [facility] [address] [facility] 110 [place] [address] Arpit Escalante MD [address] [facility] 110 [place] [address] Social History Tobacco Use Types Packs/Day Years [...] on filedocumented in this encounter Care Teams Customs Appraiser Relationship Specialty Start Date End Date Mami Rosales CRNP Referring Physician Nurse Practitioner 11/11/24 documented as of this encounter
--- OUTSIDE RECORDS SUMMARY | 2025-06-09 12:34 | XMS_ITS | Encounter Summary ---
Author Organization [employer] Address [id number] [address] [place] [address] Care Team Providers Care Manager Athletics Name Role Phone Amina Holcomb WIND POWER PROJECT MANAGER-HOURLY MANAGER Primary Care Provider + Encounter Details Date Type Department Care Team (Late st Contact Info) Description 09/10/2024 Telephone [facility] Internal Medicine - Family Medicine [address] [place] [address] Susannah Conde CMA Social History Tobacco Use [...] Telephone Encounter - Susannah Conde CMA - 09/10/2024 2:45 PM EST Message from ALESSIO Sharma sent at 08/26/2024 [...] Medicine - Family Medicine [address] [place] [address] Amina Holcomb APRN-CNP [address] [place] [address] documented as of this encounter Visit Diagnoses Not on filedocumented in this encounter Additional Health Concerns Assessment Noted Time PHQ-9 Depression Total Score: 0 05/05/20 24 9:42 AM EDT A Body Mass Index follow-up plan has been documented for the patient 08/25/2024 1:47 PM EDT documented as of this encounter Care Teams Manager Athletics Relationship Specialty Start Date End Date Amina Holcomb APRN-CNP [address] [place] [address] PCP - General Family Medicine 04/24/25 documented as of this encounter
--- OUTSIDE RECORDS SUMMARY | 2025-06-09 12:34 | XMS_ITS | Encounter Summary ---
Author Organization [facility] Address [address] [place] [address] Care Team Providers Care Patternmaker Pressure Cast Name Role Phone Mami Rosales Unavailable [phone] Encounter Details Date Type Department Care Team (Late st Contact Info) Description 06/25/2023 Orders Only [facility] [address] [place] [address] [place] [address] A, Unknown Practice [address] [place] [phone] Social History Tobacco Use Types Packs/Day Years [...] Comments CT ABDOMEN & PELVIS WO Routine 06/23/2023 1:38 PM EDT documented in this encounter Results * CT ABDOMEN & PELVIS WO (06/23/2023 1:38 PM EDT) Anatomical Region Laterality Modality Radiographic Elizabeth ging us Unknown Practice A IMG XR PROCEDURES Final Resul t documented in this encounter Visit Diagnoses Not on filedocumented in this encounter Care Teams Patternmaker Pressure Cast Relationship Specialty Start Date End Date Mami Rosales CRNP Referring Physician Nurse Practitioner 11/11/24 documented as of this encounter
--- OUTSIDE RECORDS SUMMARY | 2025-06-09 12:34 | XMS_ITS | Encounter Summary ---
Author Organization [facility] Address [address] [place] [address] Care Team Providers Care Cash Application Representative Name Role Phone Mami Rosales Unavailable [phone] Encounter Details Date Type Department Care Team (Late st Contact Info) Description 06/08/2025 Abstract [facility] [address] [facility] 110 [place] [address] Arpit Escalante MD [address] [place] [facility] 110 [place] [address] Social History Tobacco Use Types Packs/Day Years [...] any clubs o r organizations such as jewish groups, unions, fraternal or athletic groups, or [...] Recorded Patient Health Questionnaire-2 Score 1 05/21/2023 [facility] - Occupational Stress Questionnaire Answer Date Recorded [...] on filedocumented in this encounter Care Teams Cash Application Representative Relationship Specialty Start Date End Date Mami Rosales CRNP Referring Physician Nurse Practitioner 11/11/24 documented as of this encounter
--- OUTSIDE RECORDS SUMMARY | 2025-06-09 12:34 | XMS_ITS | Encounter Summary ---
Author Organization [facility] Address [address] [place] [address] Care Team Providers Care Terrazzo Mechanic Name Role Phone Mami Rosales Unavailable [phone] Encounter Details Date Type Department Care Team (Late st Contact Info) Description 12/26/2023 Orders Only [facility] [address] [place] [id number] Unallocated, N[facility] Provider, [address] [place], [place] [id number] Social History Tobacco Use Types Packs/Day Years [...] often do you attend chur ch or catholic services? Never 07/03/2023 Do you belong to any clubs o r organizations such as pentecostalism groups, unions, fraternal or athletic groups, or [...] Recorded Patient Health Questionnaire-2 Score 1 05/21/2023 [facility] - Occupational Stress Questionnaire Answer Date [...] place to sleep or slept in a longterm (including now)? Patient refused 07/03/2023 Comments Unknown Sex and Gender Information Value Date Recorded Sex Assigned at Not on file Legal Sex Female 6:38 PM EDT Gender Identity Not on file Sexual Orientation Not on file documented as of this encounter Plan of Treatment Not on file documented as of this encounter Procedures Procedure Name Priority Date/Time Associated Diagnosis Comments SCANNED LABS Routine 12/26/2023 2:11 PM EST documented in this encounter Results * SCANNED LABS (12/26/2023 2:11 PM EST) us Noms Provider Unallocated MD LAB CHG PERFORMABLE S Final Result documented in this encounter Visit Diagnoses Not on filedocumented in this encounter Care Teams Terrazzo Mechanic Relationship Specialty Start Date End Date Mami Rosales CRNP Referring Physician Nurse Practitioner 11/11/24 documented as of this encounter
--- OUTSIDE RECORDS SUMMARY | 2025-06-09 12:35 | XMS_ITS | Encounter Summary ---
Author Organization [facility] Address [address] [place] [address] Care Team Providers Care Wire Frame Lamp Shade Maker Name Role Phone Mami Rosales Unavailable [phone] Encounter Details Date Type Department Care Team ([facility] st Contact Info) Description 11/13/2023 Abstract [facility] [address] [facility] [address] [place] [id number] Allen Majano, DPAnastasiia [address] [facility] [address] [place] [address] Social History Tobacco Use Types Packs/Day Years [...] often do you attend chur ch or adventism services? Never 07/03/2023 Do you belong to any clubs o r organizations such as faith groups, unions, fraternal or athletic groups, or [...] Patient Health Questionnaire-2 Score 1 05/21/2023 [facility] - Occupational Stress Questionnaire Answer Date [...] place to sleep or slept in a assisted (including now)? Patient refused 07/03/2023 Comments Unknown Sex and Gender Information Value Date Recorded Sex Assigned at Not on file Legal Sex Female 6:38 PM EDT Gender Identity Not on file Sexual Orientation Not on file documented as of this encounter Plan of Treatment Not on file documented as of this encounter Visit Diagnoses Not on filedocumented in this encounter Care Teams Wire Frame Lamp Shade Maker Relationship Specialty Start Date End Date Mami Rosales CRNP Referring Physician Nurse Practitioner 11/11/24 documented as of this encounter
--- OUTSIDE RECORDS SUMMARY | 2025-06-09 12:35 | XMS_ITS ---
Author Organization [facility] Address [address] [place] [address] Care Team Providers Care Occasional Babysitter Name Role Phone Unavailable Primary Care Provider Unavailabl e Transplant Episode Kidney Candidate [facility] ([place], [place]) - [facility] Referred on 03/19/2025 Marked as Deferred on 04/06/2025 Reason: Financial/Insurance Complications Kidney CoordinatorLay Monahan MA Phone: N/A Fax: N/A Email: N/A Scores Score Value Updated Exceptions/Reas ons CPRA Not available EPTS (Calc) 12 06/09/2025 Care Team Name Role Phone Fax Email Lay Monahan MA Kidney Coordinator N/A N/A N/A Allison Melgar MD Referring Physician [phone] N/A Events Pre-Transplant Referred: 03/19/2025
--- OUTSIDE RECORDS SUMMARY | 2025-06-09 12:59 | XMS_ITS | CCD ---
Author Organization [facility] Care Team Providers Care Inside Sales Advisor Name Role Phone GAYLA ROQUE Admitting Unavailable GAYLA ROQUE Attending Unavailable MIREYA LANDERS Referring Unavailable [place] Procedure Practitioner Unavailab GAYLA Diamond Surgeon Unavailable KESHA FISHMAN Primary Care Unavailab le [place] Procedure Practitioner Unavailab MILAGROS Berg Surgeon Unavailable JAYESH ESCALANTE Primary Care Physician Gayla Paris Unavailable HARIS Escalante Primary Care Provider MING Paris Attending Provider DO Ham Castano Emergency Provider Jocelyn Garland Unavailable DR JAYESH ESCALANTE Primary Care Unavailable ARSLAN .KAIA Admitting Unavailable ARSLAN Rolon, KAIA Attending Unavailable ROLANDO RIVERA Consulting UnavailSHRUTHI Turner Consulting Unavailable DR JAYESH ESCALANTE Admitting Unavailable JOLIE, DR MCCONNELL Attending Unavailable JOLEI, DR MCCONNELL Primary Care Unavailable DR JAYESH ESCALANTE Consulting Unavailable DR CARYN DOYLE Consulting Unavailable DR JAYESH ESCALANTE Primary Care Unavailable ANIKET Rolon, DR LANCE Admitting Unavailable ANIKET Rolon, DR LANCE Attending Unavailable ANIKET Rolon, DR LANCE Consulting Unavailable Allison Melgar Unavailable HARIS Escalante Primary Care Provider [phone] KIERA Rose Emergency Provider Jayesh Escalante MD Primary Care Provider [phone] DO Jorge Doshi Emergency Provider NON STAFF Primary Care Provider UnavailMD Jayro Hirsch Admit Provider MD Jayro Bucio Attending Provider DO Bhavin Calderón Other Provider MD Dawood Clemente Other Provider DO Charbel Patel Other Provider MD Jocelyn Garland Other Provider NANCY Vargas Other Provider Unavailable MD Allison Melgar Other Provider MD Hector Cornejo Other Provider MD Steph Rollins Attending Provider NNACY Rosales Primary Care Provider Dawood Clemente Unavailable DO Cem De Souza Emergency Provider NANCY Rosales Primary Care Provider MD Marcelle Simmons Emergency Provider MD Jayro Bucio Admit Provider MD Jayro Bucio Attending Provider MD Marcelle Simmons Emergency Provider MD Jayro Bucio Admit Provider MD Allison Melgar Other Provider DO Dontae Hernandez Attending Provider LILY ROSALES Referring Unavailable LILY ROSALES Primary Care Unavailable DANIEL VILLAGOMEZ Attending Unavailable KARSTEN MACEDO Referring Unavailable LILY ROSALES Primary Care Unavailable LILY ROSALES Referring Unavailable ROSALES, LILY J Primary Care Unavailable ROSALES, LILY J Referring Unavailable ROSALES, LILY J Primary Care Unavailable Rosales HOSPICE DIRECTOR-TAN ROOM SUPERVISOR, Lily J Primary Care Provid er Thomas Ferrera Attending Unavailable Fernando Espinoza Attending Unavailable Manuel Shaikh Attending Unavailable Hossein Hoyos Attending Unavailable Rosales TOY ELECTRIC TRAIN REPAIRER-C, Lily Sims Primary Care Provider Marcelle Simmons MD Emergency Provider [phone] Hossein Hoyos Attending Unavailable Unavailable Primary Care Provider UnavailVlad MATA, Lily Unavailable ROSALES, LILY J Referring Unavailable ROSALES, LILY J Primary Care Unavailable KATH VILLAGOMEZ Referring Unavailable ROSALES, LILY J Primary Care Unavailable ROSALES, LILY J Primary Care Unavailable ADELAIDE SOLORIO Attending Unavailable ALLEN ROCHA Attending Unavailable LAINA TREVIZO Attending Unavailable DAWOOD PAZ Attending Unavailable REBECCA SCHRADER Attending Unavailable REBECCA SCHRADER Referring Unavailable ALLEN ROCHA Attending Unavailable Rosales HOSPICE DIRECTOR-TAN ROOM SUPERVISOR, Lily Sims Primary Care Provid er Bobby TOY ELECTRIC TRAIN REPAIRER-C, Lily Bethany Primary Care Provider Ernie Herrera MD Emergency Provider [phone] Allison Melgar MD Attending Provider KAILYN ROSALESERIE J Attending Unavailable ROSALES, LILY J Referring Unavailable ROSALES, LILY J Primary Care Unavailable ROSALES, LILY J Attending Unavailable ROSALES, LILY J Referring Unavailable ROSALES, LILY J Primary Care Unavailable ROSALES, LILY J Attending Unavailable ROSALES, LILY J Referring Unavailable ROSALES, LILY J Primary Care Unavailable ROSALES, LILY J Attending Unavailable ROSALES, LILY J Referring Unavailable ROSALES, LILY J Primary Care Unavailable ROSALES, LILY J Attending Unavailable ROSALES, LILY J Referring Unavailable ROSALES, LILY J Primary Care Unavailable ROSALES, LILY J Attending Unavailable ROSALES, LILY J Referring Unavailable ROSALES, LILY J Primary Care Unavailable ROSALES, LILY J Attending Unavailable ROSALES, LILY J Referring Unavailable ROSALES, LILY J Primary Care Unavailable ROSALES, LILY J Attending Unavailable ROSALES, LILY J Referring Unavailable ROSALES, LILY J Primary Care Unavailable ROSALES, LILY J Attending Unavailable ROSALES, LILY J Referring Unavailable ROSALES, LILY J Primary Care Unavailable ROSALES, LILY J Attending Unavailable ROSALES, LILY J Referring Unavailable ROSALES, LILY J Primary Care Unavailable ROSALES, LILY J Attending Unavailable ROSALES, LILY J Referring Unavailable RSOALES, LILY J Primary Care Unavailable ROSALES, LILY J Attending Unavailable ROSALES, LILY J Referring Unavailable ROSALES, LILY J Primary Care Unavailable ROSALES, LILY J Attending Unavailable ROSALES, LILY J Referring Unavailable ROSALES, LILY J Primary Care Unavailable Rosales HOSPICE DIRECTOR-TAN ROOM SUPERVISOR, Lily J Primary Care Provid er Allison Melgar MD Unavailable MIGUEL ÁNGEL HOPSON Attending Unavailable SATHYA CAZARES Referring Unavailable MARK ANTHONY, MIGUEL ÁNGEL Referring Unavailable JERAMIE FRANCO Admitting Unavailable JERAMIE FRANCO Attending Unavailable MARK ANTHONY, MIGUEL ÁNGEL Referring Unavailable MARK ANTHONY, MIGUEL ÁNGEL Attending Unavailable MARK ANTHONY, MIGUEL ÁNGEL Referring Unavailable MARK ANTHONY, MIGUEL ÁNGEL Attending Unavailable JERAMIE FRANCO Referring Unavailable MARK ANTHONY, MIGUEL ÁNGEL Attending Unavailable MARK ANTHONY, MIGUEL ÁNGEL Attending Unavailable JERAMIE FRANCO Referring Unavailable MARK ANTHONY, MIGUEL ÁNGEL Attending Unavailable SELF Referring Unavailable MARK ANTHONY, MIGUEL ÁNGEL Referring Unavailable SELF Referring Unavailable JERAMIE FRANCO Attending Unavailable JODI ZHOU Attending Unavailable DEANNE BUTLER Referring Unavailable MARK NATHONY, MIGUEL ÁNGEL Referring Unavailable Allison Melgar MD Attending Provider Vega Neville MD Attending Provider Vega Neville MD Other Provider [phone] Zhang HOSPICE DIRECTOR-TAN ROOM SUPERVISORAmina Primary Care Provider Bobby TOY ELECTRIC TRAIN REPAIRER-C, Lily Sims Primary Care Provider Marcelle Smimons MD Emergency Provider Lily Rosales Primary Care Unavailable MelogeevidalJayro Admitting UnavailDontae Nicholson Attending Unavailabl e Talia, Allison Consulting Unavailable Marcelle Simmons Admitting Unavailable Marcelle Simmons Attending Unavailable Lily Rosales Primary Care Unavailable Lily Rosales Primary Care Unavailable Ernie Herrera Admitting Unavailable Ernie Herrera Attending Unavailable Marcelle Simmons Admitting Unavailable Lily Rosales Primary Care Unavailable Marcelle Simmons Attending Unavailable Lily Rosales Primary Care Unavailable Talia, Allison Admitting Unavailable Talia, Allison Attending Unavailable Vega Neville Admitting Unavailable Vega Neville Attending Unavailable Lily Rosales Primary Care Unavailable Vega Neville Admitting Unavailable Vega Neville Attending Unavailable Lily Rosales Primary Care Unavailable Elias Bryant Attending Unavailable Elias Bryant Attending Unavailable Allergies Allergy Classification Reported Allergen(s) Allergy Type Date of Onset Reaction(s) Facility (17 sources) Penicillins; Translations: [PENICILLINS] Drug allergy (disorder) 3 Rash, Hives [facility] Repository (17 sources) Penicillin; Translations: [penicillin] Drug Allergy [facility] (9 sources) Penicillin G Drug Allergy 3 Rash [facility] (9 sources) Penicillins Drug Allergy 7 Hives, Rash [facility] (17 sources) Penicillins Drug Intolerance 7 Rash, Hives [facility] (20 sources) Penicillins Propensity to adverse reactions to drug 7 Hives, Rash [facility] (1 source) Penicillins Drug allergy (disorder) 5 [facility] Repository Medications Current Medications Medication Drug Class(es) Dates Sig (Normalized) Sig (Original) 3 ML semaglutide 1.34 MG/ML Pen Injector [Ozempic] (8 sources) Start: 10-25-2022 Ozempic (1 mg dose) 4 mg/3 mL subcutaneous solution Refills(s) 0, Blood glucose Start Date: 10/25/22 Status: Ordered Start: 10-25-2022 Ozempic (1 mg dose) 4 mg/3 mL subcutaneous solution Refills(s) 0 Start Date: 10/25/22 Status: Ordered acetaminophen 325 mg oral tablet (9 sources) Start: 09-16-2024 take 2 tablets by mouth every six hours as needed for pain ALPRAZolam 0.25 mg oral tablet (20 sources) Benzodiazepine Start: 10-08-2024 End: 05-13-2025 take 1 tablet by mouth once daily as needed for anxiety ALPRAZolam (XANAX) 0.25 mg tablet Indications: Social anxiety disorder Take 1 tablet (0.25 mg total) by mouth nightly as needed for anxiety. 30 tablet 05/14/2025 Active Start: 09-09-2024 take 1 tablet by shagufta th once daily in the morning as needed for anxiety ALPRAZolam (XANAX) 0.25 mg tablet Indications: Social anxiety disorder TAKE 1 TABLET BY MOUTH ONCE DAILY IN THE MORNING NEEDED FOR ANXIETY FOR 30 DAYS 30 tablet 09/09/2024 Active Start: 06-19-2024 take 1 tablet by shagufta th once daily in the morning Start: 10-01-2023 take 1 tablet by shagufta th twice daily at bedtime ALPRAZolam (Xanax) 0.5 MG tablet Indications: Panic disorder (CMS/HCC) TAKE 1 TABLET BY MOUTH TWICE DAILY (MORNING AND BEFORE BEDTIME) 60 tablet 3 10/01/2023 Active Start: 10-25-2022 take 1 tablet by shagufta th three times daily as needed for anxiety alprazolam 0.5 mg Tab 0.5 mg = 1 tab(s), Oral, TID, PRN for anxiety, Refills(s) 0, Anxiety Start Date: 10/25/22 Status: Ordered Start: 09-23-2017 End: 06-19-2024 take 1 tablet by mouth once daily Alprazolam (Xanax) 0.5 mg Tablet Discontinued 0.5 MG PO Daily September 23, 2017 1:00am June 19, 2024 10:06am Start: 09-23-2017 take 1 tablet by shagufta th twice daily Alprazolam (Xanax) 0.5 mg Tablet Active 0.5 MG PO Twice daily September 23, 2017 1:00am amLODIPine 2.5 mg oral tablet (20 sources) Dihydropyridine Calcium Channel Shabnam Start: 03-16-2025 take 1 tablet by mouth once daily Start: 09-14-2024 End: 03-12-2025 take 1 tablet by mouth once daily Amlodipine 2.5 mg tablet Discontinued 0 .ROUTE .COMPLEX 90 September 14, 2024 1:17pm March 12, 2025 12:55pm Take 1 tablet by mouth once daily Start: 02-14-2024 End: 03-16-2025 take 1 tablet by mouth once daily Amlodipine 2.5 mg tablet Discontinued 2.5 MG PO Daily March 12, 2025 12:54pm March 16, 2025 9:37am bisacodyl 5 mg delayed release oral tablet (2 sources) Stimulant Laxative Start: 08-24-2022 take 1 tablet by mouth every twenty-four hours Bisacodyl EC 5 MG 1 tab(s) Orally Once a day for 30 day(s) Jul, Active cephalexin 500 mg oral capsule (1 source) Cephalosporin Antibacterial Start: 09-14-2024 End: 09-21-2024 take 1 capsule by mouth every twelve hours Keflex 500 mg Cap 500 mg = 1 cap(s), Oral, q12hr, X 7 day(s), # 14 cap(s), Refills(s) 0, Pharmacy: [id number], 160, cm, 09/13/24 21:52:00 EST, Height/Length Dosing, 141, kg, 09/13/24 21:52:00 EST, Weight Dosing Start Date: 09/14/24 Stop Date: 09/21/24 Status: Ordered ciprofloxacin 500 mg oral tablet (2 sources) Quinolone Antimicrobial Start: 12-12-2023 End: 12-22-2023 take 1 tablet by mouth in the morning ciprofloxacin (Cipro) 500 MG tablet Indications: Acute cystitis with hematuria Take 1 tablet (500 mg) by mouth in the morning and 1 tablet (500 mg) before bedtime. Do all this for 10 days. 20 tablet 0 12/12/2023 12/22/2023 Active Continuous Blood Gluc Epic Prelude Analyst (Dexcom G7 Epic Prelude Analyst) device (9 sources) Start: 02-15-2023 Continuous Blood Gluc Epic Prelude Analyst (Dexcom G7 Epic Prelude Analyst) device USE DIRECTED 02/15/2023 Active Start: 02-15-2023 Continuous Blo od Gluc Epic Prelude Analyst (Dexcom G7 Epic Prelude Analyst) device USE DIRECTED 0 02/15/2023 Active Continuous Blood Gluc Sensor (Dexcom G7 Sensor) misc (9 sources) Start: 06-17-2023 Continuous Blo od Gluc Sensor (Dexcom G7 Sensor) misc APPLY 1 SENSOR EVERY 10 DAYS DIRECTED 06/17/2023 Active Start: 06-17-2023 Continuous Blo od Gluc Sensor (Dexcom G7 Sensor) misc APPLY 1 SENSOR EVERY 10 DAYS DIRECTED 0 06/17/2023 Active DEXCOM G7 SENSOR device (20 sources) Start: 04-10-2025 DEXCOM G7 SENS OR device Indications: Type 2 diabetes mellitus with hyperglycemia, without long-term current use of insulin ([facility]) APPLY 1 SENSOR EVERY 10 DAYS DIRECTED 3 each 6 04/10/2025 Active Start: 09-02-2024 End: 04-10-2025 DEXCOM G7 SENSOR device Nayeli cations: Type 2 diabetes mellitus with hyperglycemia, without long-term current use of insulin ([facility]) APPLY 1 SENSOR EVERY 10 DAYS DIRECTED 3 each 6 09/02/2024 04/10/2025 Discontinued (Reorder) Start: 09-02-2024 DEXCOM G7 SENS OR device Indications: Type 2 diabetes mellitus with hyperglycemia, without long-term current use of insulin ([facility]) APPLY 1 SENSOR EVERY 10 DAYS DIRECTED 3 each 6 09/02/2024 Active dicyclomine hydrochloride 20 mg oral tablet (7 sources) Anticholinergic Start: 12-26-2023 take 1 tablet by mouth four times daily dicyclomine 20 mg Tab 20 mg = 1 tab(s), Oral, QID, # 12 tab(s), Refills(s) 0, Pharmacy: [id number], 164, cm, 12/25/23 22:51:00 EST, Height/Length Dosing, 158.7, kg, 12/25/23 22:51:00 EST, Weight Dosing Start Date: 12/26/23 Status: Ordered Start: 12-07-2023 End: 12-14-2023 take 1 capsule by mouth four times daily Bentyl 10 mg Cap 10 mg = 1 cap(s), Oral, QID, X 7 day(s), # 14 cap(s), Refills(s) 0, Pharmacy: [id number], 165, cm, 12/06/23 22:28:00 EST, Height/Length Dosing, 153.6, kg, 12/06/23 22:32:00 EST, Weight Dosing Start Date: 12/07/23 Stop Date: 12/14/23 Status: Ordered Start: 01-19-2023 End: 01-26-2023 take 1 capsule by mouth four times daily Bentyl 10 mg Cap 10 mg = 1 cap(s), Oral, QID, X 7 day(s), # 28 cap(s), Refills(s) 0, Pharmacy: [id number], 165, cm, 01/19/23 9:55:00 EDT, Height/Length Dosing, 150, kg, 01/19/23 9:55:00 EDT, Weight Dosing Start Date: 01/19/23 Stop Date: 01/26/23 Status: Ordered Start: 10-23-2022 End: 11-02-2022 take 1 tablet by mouth four times daily dicyclomine 20 mg Tab 20 mg = 1 tab(s), Oral, QID, X 10 day(s), # 40 tab(s), Refills(s) 0, Pharmacy: [id number], 165, cm, 10/23/22 10:00:00 EST, Height/Length Dosing, 151, kg, 10/23/22 10:00:00 EST, Weight Dosing Start Date: 10/23/22 Stop Date: 11/02/22 Status: Ordered Start: 04-14-2022 End: 04-21-2022 take 1 tablet by mouth three times daily dicyclomine 20 mg Tab 20 mg = 1 tab(s), Oral, TID, X 7 day(s), # 21 tab(s), Refills(s) 0, Pharmacy: [id number], 165, cm, 04/14/22 12:06:00 EDT, Height/Length Dosing, 151, kg, 04/14/22 12:06:00 EDT, Weight Dosing Start Date: 04/14/22 Stop Date: 04/21/22 Status: Ordered docusate sodium 100 mg oral capsule (18 sources) Start: 01-16-2025 End: 01-23-2025 docusate sodium (COLACE) 100 mg capsule 1 capsule (100 mg total). Take for 7 days 01/17/2025 Active ergocalciferol 1.25 mg oral capsule (20 sources) Provitamin D2 Compound Start: 01-01-2024 take 1 capsule by mouth once ergocalciferol (DRISDOL) 1,250 mcg (50,000 unit) capsule Indications: Vitamin D deficiency TAKE 1 CAPSULE BY MOUTH EVERY SUNDAY 12 capsule 01/01/2024 Active Start: 08-20-2023 take 1 capsule by mo uth every week Start: 10-25-2022 ergocalciferol 50,000 intl units Cap Refills(s) 0, Prophylaxis Start Date: 10/25/22 Status: Ordered Start: 10-25-2022 ergocalciferol 50,000 intl units Cap Refills(s) 0, Prophylaxis Start Date: 10/25/22 Status: Ordered Start: 09-23-2017 End: 08-20-2022 take 1 capsule by mouth every week Ergocalciferol (Vitamin D2) (Vitamin D2) 50,000 unit Capsule Discontinued 29876 UNIT PO every week September 23, 2017 1:00am August 20, 2022 5:02pm famotidine 20 mg oral tablet (2 sources) Histamine-2 Receptor Antagonist Start: 12-26-2023 take 1 tablet by mouth twice daily Pepcid 20 mg Tab 20 mg = 1 tab(s), Oral, BID, # 15 tab(s), Refills(s) 0, Pharmacy: [id number], 164, cm, 12/25/23 22:51:00 EST, Height/Length Dosing, 158.7, kg, 12/25/23 22:51:00 EST, Weight Dosing Start Date: 12/26/23 Status: Ordered fluticasone propionate 0.05 mg/actuat metered dose nasal spray (3 sources) Corticosteroid Start: 10-26-2023 End: 12-12-2023 take 2 spray(s) nasal route in the morning fluticasone (Flonase) 50 MCG/ACT nasal spray Indications: Non-recurrent acute serous otitis media of right ear Administer 2 sprays into each nostril in the morning for 15 days. Shake gently. Before first use, prime pump. After use, clean tip and replace cap.. 16 g 0 10/26/2023 12/12/2023 Discontinued (Other) ibuprofen 600 mg oral tablet (20 sources) Nonsteroidal Anti-inflammatory Drug Start: 11-06-2024 take 1 tablet by mouth every eight hours as needed for pain ibuprofen (MOTRIN) 800 mg tablet Take 1 tablet (800 mg total) by mouth every 8 (eight) hours as needed for pain. 21 tablet 11/06/2024 Active Start: 09-16-2024 take 1 tablet by mouth every s ix hours as needed for pain 3 ml insulin glargine 300 unt/ml pen injector (20 sources) Insulin Analog Start: 03-31-2025 TOUJEO MAX U-3 00 SOLOSTAR 300 unit/mL (3 mL) insulin pen Indications: Type 2 diabetes mellitus with stage 3 chronic kidney disease, unspecified whether roasterman insulin use, unspecified whether stage 3a or 3b CKD ([facility]) Inject 30 Units under the skin in the morning. 15 mL 3 03/31/2025 Active Start: 09-29-2024 inject 30 [IU] by mart bcutaneous injection once daily in the morning Start: 09-22-2024 End: 03-31-2025 inject 30 [IU] by subcutaneous injection in the morning insulin glargine U-300 conc (TOUJEO MAX U-300 SOLOSTAR) 300 unit/mL (3 mL) insulin pen Indications: Type 2 diabetes mellitus with hyperglycemia, with long-term current use of insulin ([facility]) Inject 30 Units under the skin in the morning. 15 mL 3 01/22/2025 03/31/2025 Discontinued Start: 05-05-2024 insulin glargi ne U-300 conc (TOUJEO MAX U-300 SOLOSTAR) 300 unit/mL (3 mL) insulin pen Indications: Uncontrolled type 2 diabetes mellitus with hyperglycemia ([facility]) Inject 50 Units under the skin in the morning. 15 mL 1 05/05/2024 Active Start: 12-12-2023 End: 01-15-2025 inject 18 [IU] by subcutaneous injection at bedtime insulin glargine (Toujeo Max Solostar, 2 unit dial,) 300 UNIT/ML injection Indications: Diabetes mellitus without complication ([facility]) Inject 18 Units under the skin at bedtime 3 mL 3 12/12/2023 01/15/2025 Active Start: 10-08-2023 End: 11-11-2024 inject 15 [IU] by subcutaneous injection at bedtime insulin glargine (Toujeo Max Solostar, 2 unit dial,) 300 UNIT/ML injection Indications: Diabetes mellitus without complication (CMS/HCC) Inject 15 Units under the skin at bedtime 3 mL 3 10/08/2023 12/12/2023 Discontinued (Reorder) Start: 08-20-2023 End: 09-29-2024 Insulin Glargine U-300 Conc (Toujeo Solostar U-300 Insulin) 300 unit/mL (1.5 mL) Insulin Pen Discontinued 50 UNIT SUBCUT Daily August 20, 2023 12:00am September 29, 2024 11:12am Start: 08-20-2023 inject 10 [IU] by mart bcutaneous injection once daily Insulin Glargine U-300 Conc (Toujeo Solostar U-300 Insulin) 300 unit/mL (1.5 mL) Insulin Pen Active 10 UNIT SUBCUT Daily August 20, 2023 12:00am inject 10 [IU] by mart bcutaneous injection once daily Toujeo Max SoloStar 300 UNIT/ML as directed Subcutaneous 10 UNITS ONCE A DAY Active Insulin Glargine U-300 Conc (Toujeo Solostar U-300 Insulin) 300 unit/mL (1.5 mL) insulin pen (4 sources) Start: 09-29-2024 inject 30 [IU] by subcutaneous injection once daily Insulin Glargine U-300 Conc (Toujeo Solostar U-300 Insulin) 300 unit/mL (1.5 mL) insulin pen Active 30 UNIT SUBCUT Daily September 29, 2024 11:10am insulin glargine,hum.rec.anlo g (TOUJEO MAX U-300 SOLOSTAR SUBCUTANEOUS) (17 sources) insulin glargine,hum.rec.anl og (TOUJEO MAX U-300 SOLOSTAR SUBCUTANEOUS) Inject subcutaneously. Active insulin glargine ,hum.rec.anlog (TOUJEO MAX U-300 SOLOSTAR SUBCUTANEOUS) Inject subcutaneously. 0 Active levothyroxine sodium 0.088 m g oral capsule (20 sources) l-Thyroxine Start: 09-29-2024 take 1 capsule by [facility] once daily Start: 08-26-2024 End: 02-08-2025 take 1 tablet by mouth in the morning levothyroxine (SYNTHROID, LEVOTHROID) 88 MCG tablet Indications: Acquired hypothyroidism Take 1 tablet (88 mcg total) by mouth in the morning. 90 tablet 1 02/09/2025 Active Start: 01-05-2024 End: 09-29-2024 take 1 tablet by mouth once daily in the morning Levothyroxine 75 mcg tablet Discontinued 75 MCG PO Every morning February 08, 2024 12:00am September 29, 2024 11:11am Start: 09-23-2017 End: 08-20-2022 take 1 tablet by mouth once daily Levothyroxine (Synthroid) 75 mcg Tablet Discontinued 75 MCG PO Daily September 23, 2017 1:00am August 20, 2022 5:02pm take 1 capsule by [facility] once daily before breakfast levothyroxine 75 mcg cap Take 75 mcg by mouth daily before breakfast. Active take 1 tablet by [facility] once daily in the morning Levothyroxine Sodium 75 MCG 1 tablet on an empty stomach in the morning Orally Once a day for 30 day(s) Active lidocaine 0.05 mg/mg medicated patch (1 source) Antiarrhythmic, Amide Local Anesthetic Start: 05-29-2025 apply 1 dose topically once daily 3 ml liraglutide 6 mg/ml pen injector (20 sources) GLP-1 Receptor Agonist Start: 09-29-2024 Liraglutide (Victoza 2-Fantasma) 0.6 mg/0.1 mL (18 mg/3 mL) pen injector Active 0.6 MG SUBCUT Daily September 29, 2024 1:00am Start: 09-03-2024 End: 03-16-2025 Start: 07-30-2024 End: 08-29-2024 liraglutide (VICTOZA) 0.6 mg / 0.1 ml subcutaneous pen injector Indications: Class 3 severe obesity due to excess calories with serious comorbidity and body mass index (BMI) of 50.0 to 59.9 in adult (HCC) , Type 2 diabetes mellitus with chronic kidney disease, with long-term current use of insulin, unspecified CKD stage ([facility]) Inject 1.2 mg subcutaneously once daily. 6 mL 07/30/2024 08/29/2024 Active Start: 07-07-2024 End: 08-06-2024 liraglutide (VICTOZA) 0.6 mg / 0.1 ml subcutaneous pen injector Indications: Class 3 severe obesity due to excess calories with serious comorbidity and body mass index (BMI) of 50.0 to 59.9 in adult ([facility]) , Type 2 diabetes mellitus with chronic kidney disease, with long-term current use of insulin, unspecified CKD stage ([facility]) Inject 0.6 mg subcutaneously once daily. 3 mL 07/07/2024 07/30/2024 Discontinued {2 (480 ML Magnesium Sulfate 0.0277 MEQ/ML / potassium sulfate 0.0374 MEQ/ML / sodium sulfate 0.257 MEQ/ML Oral Solution) } Pack [Suprep Bowel Prep Kit] (2 sources) Start: 10-25-2022 Suprep Bowel P rep Kit oral liquid See Instructions, 1 kit(s), Refill(s) 0, 177 mL Oral As Directed 2 dose(s), [facility], 165, cm, 10/25/22 13:49:00 EST, Height/Length Dosing, 157.9, kg, 10/25/22 13:49:00 EST, Weight Dosing Start Date: 10/25/22 Status: Ordered meclizine hydrochloride 25 mg oral tablet (20 sources) Antiemetic Start: 04-28-2024 take 1 tablet by mouth four times daily as needed meclizine (Antivert) 25 MG tablet Indications: Ataxia TAKE 1 TABLET BY MOUTH 4 TIMES DAILY NEEDED 120 tablet 04/28/2024 Active Start: 11-19-2023 take 1 tablet by shagufta th four times daily as needed meclizine (Antivert) 25 MG tablet Indications: Ataxia TAKE 1 TABLET BY MOUTH 4 TIMES DAILY NEEDED 120 tablet 0 11/19/2023 Active Start: 10-25-2022 End: 04-13-2025 take 1 tablet by mouth three times daily as needed for dizziness meclizine (ANTIVERT) 25 mg tablet Indications: Vertigo TAKE 1 TABLET BY MOUTH THREE TIMES DAILY NEEDED FOR DIZZINESS 90 tablet 1 04/13/2025 Active Start: 10-25-2022 meclizine 25 m g Tab Refills(s) 0, Dizziness Start Date: 10/25/22 Status: Ordered Start: 10-25-2022 meclizine 25 m g Tab Refills(s) 0 Start Date: 10/25/22 Status: Ordered Start: 09-23-2017 take 1 tablet by shagufta th twice daily Start: 09-23-2017 take 25 mg by mouth four times daily Meclizine Active 25 MG PO Four times daily September 23, 2017 1:00am take 1 tablet by shagufta th every six hours Meclizine HCl 25 MG 1 tablet as needed Orally day 4 times a day for 30 day(s) taking twice daily Active methylPREDNISolone (3 sources) Corticosteroid Start: 11-11-2024 methylPREDNISo lone (Medrol Dospak) 4 MG tablets Indications: Peroneal tendinitis, left Follow schedule on MEDROL PACK package instructions to be used as directed 21 tablet 11/11/2024 Active Start: 06-05-2022 methylPREDNISo lone 4 MG as directed Orally Once a day for 6 days May, Active 24 hr mirabegron 25 mg extended release oral tablet (20 sources) beta3-Adrenergic Agonist Start: 02-08-2024 take 1 tablet b y mouth once daily Start: 12-12-2023 End: 05-13-2025 take 1 tablet by mouth every twenty-four hours in the morning mirabegron (MYRBETRIQ) 25 mg tablet extended release 24 hr Indications: Overactive bladder Take 1 tablet (25 mg total) by mouth in the morning. 90 tablet 1 05/14/2025 Active Mounjaro 2.5 MG/0.5ML solution pen-injector (6 sources) Start: 02-08-2024 inject 2.5 mg by subcutaneous injection every week Mounjaro 2.5 MG/0.5ML solution pen-injector Inject 2.5 mg under the skin once a week 02/08/2024 Active Pen Needle, Diabetic (7 sources) Start: 02-08-2024 Pen Needle, Diabetic Active EACH MISCELLANE February 08, 2024 12:00am phentermine hydrochloride 37.5 mg oral tablet (20 sources) Sympathomimetic Amine Anorectic Start: 10-20-2024 End: 02-04-2025 take 1 tablet by mouth once daily before breakfast phentermine (ADIPEX-P) 37.5 mg tablet Indications: Morbid obesity with BMI of 50.0-59.9, adult (CMS-HCC) Take 1 tablet (37.5 mg total) by mouth every morning before breakfast. 30 tablet 02/04/2025 Active Start: 08-25-2024 take 1 tablet by shagufta th once daily before breakfast phentermine (ADIPEX-P) 37.5 mg tablet Indications: Morbid obesity with BMI of 50.0-59.9, adult (CMS-HCC) Take 1 tablet (37.5 mg total) by mouth every morning before breakfast. 30 tablet 08/25/2024 Active Start: 06-12-2024 End: 04-15-2025 Phentermine 37.5 mg tablet Discontinued 18.75 MG PO Daily June 12, 2024 12:00am April 15, 2025 11:45am Start: 06-12-2024 take 18.75 mg by shagufta th once daily Phentermine Active 18.75 MG PO Daily June 12, 2024 12:00am polyethylene glycol [id number] mg powder for oral solution (11 sources) Osmotic Laxative Start: 09-16-2024 End: 04-15-2025 promethazine hydrochloride 25 mg oral tablet (6 sources) Phenothiazine Start: 12-26-2023 take 1 tablet by mouth every four hours as needed for nausea promethazine 25 mg Tab 25 mg = 1 tab(s), Oral, q4hr, PRN for nausea/vomiting, # 10 tab(s), Refills(s) 0, Pharmacy: [id number], 164, cm, 12/25/23 22:51:00 EST, Height/Length Dosing, 158.7, kg, 12/25/23 22:51:00 EST, Weight Dosing Start Date: 12/26/23 Status: Ordered Start: 02-25-2023 take 1 tablet by shagufta th every four hours promethazine 12.5 mg oral tablet 12.5 mg = 1 tab(s), Oral, q4hr, # 60 tab(s), Refills(s) 0, Pharmacy: [id number], 165, cm, 02/25/23 14:45:00 EDT, Height/Length Dosing, 150, kg, 02/25/23 14:45:00 EDT, Weight Dosing Start Date: 02/25/23 Status: Ordered pseudoephedrine hydrochloride 60 mg oral tablet (3 sources) alpha-Adrenergic Agonist Start: 10-26-2023 End: 12-12-2023 take 1 tablet by mouth once pseudoephedrine (Sudafed) 60 MG tablet Indications: Non-recurrent acute serous otitis media of right ear Take 1 tablet (60 mg) by mouth every 12 (twelve) hours for 15 days 30 tablet 0 10/26/2023 12/12/2023 Discontinued (Other) rosuvastatin calcium 20 mg oral tablet (20 sources) HMG-CoA Reductase Inhibitor Start: 08-20-2022 take 1 tablet by mouth at bedtime tiZANidine 4 mg oral tablet (20 sources) Central alpha-2 Adrenergic Agonist Start: 07-09-2023 take 1 tablet by mouth once daily as needed tiZANidine (ZANAFLEX) 4 mg tablet Take 1 tablet (4 mg total) by mouth daily as needed. 07/09/2023 Active tolterodine tartrate 2 mg oral tablet (20 sources) Cholinergic Muscarinic Antagonist Start: 05-25-2025 take 1 tablet by mouth twice daily at bedtime tolterodine (DETROL) 2 mg tablet Indications: Overactive bladder TAKE 1 TABLET BY MOUTH TWICE DAILY (IN THE MORNING AND BEFORE BEDTIME) 60 tablet 05/25/2025 Active Start: 12-27-2023 End: 05-25-2025 take 1 tablet by mouth twice daily Start: 10-25-2022 End: 12-12-2023 tolterodine (Detrol) 2 MG ta blet traMADol hydrochloride 50 mg oral tablet (17 sources) Opioid Agonist Start: 10-03-2022 take 1 tablet by mouth every eight hours as needed traMADol (Ultram) 50 MG tablet Take 50 mg by mouth every 8 (eight) hours if needed. 10/03/2022 Active traZODone hydrochloride 100 mg oral tablet (20 sources) Serotonin Reuptake Inhibitor Start: 05-25-2025 take 2 tablets by mouth twice daily at bedtime traZODone (DESYREL) 100 mg tablet Indications: Current mild episode of major depressive disorder, unspecified whether recurrent , Vertigo TAKE 2 TABLETS BY MOUTH TWICE DAILY (IN THE MORNING AND BEFORE BEDTIME) 120 tablet 05/25/2025 Active Start: 05-25-2025 take 2 tablets by mo ut twice daily at bedtime traZODone (DESYREL) 100 mg tablet Indications: Current mild episode of major depressive disorder, unspecified whether recurrent , Vertigo TAKE 2 TABLETS BY MOUTH TWICE DAILY (IN THE MORNING AND BEFORE BEDTIME) 120 tablet 05/25/2025 Active Start: 08-20-2022 End: 05-25-2025 take 2 tablets by mouth twice daily Start: 08-20-2022 traZODONE 100 mg Tab Refills(s) 0, Sleep Start Date: 10/25/22 Status: Ordered Start: 08-20-2022 take 200 mg by mouth twice daily Trazodone Active 200 MG PO Twice daily August 20, 2022 12:00am take 1 tablet by shagufta th twice daily traZODone (DESYREL) 100 mg tablet Take 100 mg by mouth two times a day. Active Zofran ODT 4 mg Tab-Dis (20 sources) Start: 12-26-2023 take 1 tablet by mouth every eight hours Zofran ODT 4 mg Tab-Dis 4 mg = 1 tab(s), Oral, q8hr, # 10 tab(s), Refills(s) 0, Pharmacy: [id number], 164, cm, 12/25/23 22:51:00 EST, Height/Length Dosing, 158.7, kg, 12/25/23 22:51:00 EST, Weight Dosing Start Date: 12/26/23 Status: Ordered Start: 12-07-2023 take 1 tablet by shagufta th every eight hours Zofran ODT 4 mg Tab-Dis 4 mg = 1 tab(s), Oral, q8hr, # 12 tab(s), Refills(s) 0, Pharmacy: [id number], 165, cm, 12/06/23 22:28:00 EST, Height/Length Dosing, 153.6, kg, 12/06/23 22:32:00 EST, Weight Dosing Start Date: 12/07/23 Status: Ordered Start: 10-23-2022 take 1 tablet by shagufta th every eight hours as needed for nausea Zofran ODT 4 mg Tab-Dis 4 mg = 1 tab(s), Oral, q8hr, PRN Nausea/Vomiting, # 12 tab(s), Refills(s) 0, Pharmacy: [id number], 165, cm, 10/23/22 10:00:00 EST, Height/Length Dosing, 151, kg, 10/23/22 10:00:00 EST, Weight Dosing Start Date: 10/23/22 Status: Ordered Start: 04-14-2022 take 1 tablet by shagufta th three times daily Zofran ODT 4 mg Tab-Dis 4 mg = 1 tab(s), Oral, TID, # 15 tab(s), Refills(s) 0, Pharmacy: [id number], 165, cm, 04/14/22 12:06:00 EDT, Height/Length Dosing, 151, kg, 04/14/22 12:06:00 EDT, Weight Dosing Start Date: 04/14/22 Status: Ordered Completed/Discontinued Medications Medication Drug Class(es) Dates Sig (Normalized) Sig (Original) acetaminophen 325 mg / HYDROcodone bitartrate 5 mg oral tablet (20 sources) Opioid Agonist Start: 07-06-2018 End: 07-09-2018 Hydrocodone-Acetami nophen (Teaberry) 5-325 mg tablet Discontinued 1 TAB PO every 6 to 8 hours as needed for pain 10 July 06, 2018 July 08, 2018 12:00am July 09, 2018 12:04am Start: 09-23-2017 End: 07-06-2018 take 1 tablet by mouth every four hours Hydrocodone-Acetaminophen (Teaberry) 5-325 mg tablet Discontinued 1 TAB PO Q4H September 23, 2017 1:00am July 06, 2018 5:49pm cefdinir 300 mg oral capsule (14 sources) Cephalosporin Antibacterial Start: 02-11-2024 End: 05-10-2024 take 1 capsule by mouth twice daily Cefdinir 300 mg capsule Discontinued 300 MG PO Twice daily 6 February 11, 2024 12:00am May 10, 2024 9:09pm cyclobenzaprine hydrochloride 10 mg oral tablet (20 sources) Muscle Relaxant Start: 09-14-2024 End: 12-17-2024 take 1 tablet by mouth three times daily as needed for pain cyclobenzaprine (FLEXERIL) 10 mg tablet TAKE 1 TABLET BY MOUTH THREE TIMES DAILY FOR 5 DAYS NEEDED FOR MUSCLE PAIN 09/14/2024 12/17/2024 Discontinued (Therapy completed) Start: 12-02-2018 End: 01-16-2019 take 1 tablet by mouth three times daily as needed for muscle spasms Cyclobenzaprine 10 mg tablet Discontinued 10 MG PO Three times daily as needed for muscle spasm December 02, 2018 1:00am January 16, 2019 9:28am dapagliflozin 10 mg oral tablet (5 sources) Sodium-Glucose Cotransporter 2 Inhibitor take 1 tablet by mouth every twenty-four hours Farxiga 10 MG 1 tablet Orally Once a day Not-Taking empagliflozin 10 mg oral tablet (20 sources) Sodium-Glucose Cotransporter 2 Inhibitor Start: 024 End: 025 take 1 tablet by mouth once daily in the morning Empagliflozin (Jardiance) 10 mg tablet Discontinued 10 MG PO Every morning May 10, 2024 12:00am April 15, 2025 11:43am empagliflozin (J ardiance) 25 MG Take by mouth Active ferrous sulfate 325 mg oral tablet (19 sources) Start: 09-23-2017 End: 08-20-2022 take 1 tablet by mouth once daily Ferrous Sulfate (Feosol) 325 mg (65 mg iron) Tablet Discontinued 1 TAB PO Daily September 23, 2017 1:00am August 20, 2022 5:02pm take 1 tablet by shagufta th every twenty-four hours Feosol 200 (65 Fe) MG 1 tablet Orally once daily Not-Taking Insulin Glargine U-300 Conc (Toujeo Solostar U-300 Insulin) 300 unit/mL (1.5 mL) Insulin Pen (12 sources) Start: 08-20-2023 End: 09-29-2024 Insulin Glargine U-300 Conc (Toujeo Solostar U-300 Insulin) 300 unit/mL (1.5 mL) Insulin Pen Discontinued 50 UNIT SUBCUT Daily August 20, 2023 12:00am September 29, 2024 11:12am Start: 08-20-2023 Insulin Glargi ne U-300 Conc (Toujeo Solostar U-300 Insulin) 300 unit/mL (1.5 mL) Insulin Pen Active 50 UNIT SUBCUT Daily August 19, 2023 11:00pm Start: 08-20-2023 Insulin Glargi ne U-300 Conc (Toujeo Solostar U-300 Insulin) 300 unit/mL (1.5 mL) Insulin Pen Active 50 UNIT SUBCUT Daily August 20, 2023 12:00am Start: 08-20-2023 inject 30 [IU] by mart bcutaneous injection once daily Insulin Glargine U-300 Conc (Toutrinidad Solostar U-300 Insulin) 300 unit/mL (1.5 mL) Insulin Pen Active 30 UNIT SUBCUT Daily August 20, 2023 12:00am lisinopril 5 mg oral tablet (17 sources) Angiotensin Converting Enzyme Inhibitor Start: 08-20-2022 End: 08-20-2022 take 1 tablet by mouth once daily Lisinopril 5 mg tablet Discontinued 5 MG PO Daily August 20, 2022 12:00am August 20, 2022 7:12pm meloxicam 7.5 mg oral tablet (20 sources) Nonsteroidal Anti-inflammatory Drug Start: 06-12-2024 End: 06-16-2024 take 1 tablet by mouth once daily Meloxicam 7.5 mg tablet Discontinued 7.5 MG PO Daily June 12, 2024 12:00am June 16, 2024 12:14pm Start: 02-08-2024 End: 02-11-2024 take 1 tablet by mouth once daily in the morning Meloxicam 7.5 mg tablet Discontinued 7.5 MG PO Every morning February 08, 2024 12:00am February 11, 2024 2:44pm Start: 12-12-2023 End: 12-11-2024 take 0.5 tablet by mouth in the morning meloxicam (Mobic) 15 MG tablet Indications: Primary osteoarthritis of left knee Take 0.5 tablets (7.5 mg) by mouth in the morning. 45 tablet 3 12/12/2023 12/11/2024 Active Meloxicam 7.5 mg /5 mL susp Take by mouth. Active nefazodone hydrochloride 250 mg oral tablet (19 sources) Serotonin Reuptake Inhibitor Start: 09-23-2017 End: 08-20-2022 take 1 tablet by mouth twice daily Nefazodone 250 mg Tablet Discontinued 250 MG PO Twice daily September 23, 2017 1:00am August 20, 2022 5:02pm omeprazole 40 mg delayed release oral capsule (19 sources) Proton Pump Inhibitor Start: 09-23-2017 End: 08-20-2022 take 1 capsule by mouth once daily Omeprazole 40 mg Capsule,Delayed Release(/Ec) Discontinued 40 MG PO Daily September 23, 2017 1:00am August 20, 2022 5:02pm ondansetron 4 mg oral tablet (20 sources) Serotonin-3 Receptor Antagonist Start: 12-26-2023 ondansetron ODT (Zofran-ODT) 4 MG disintegrating tablet 12/26/2023 Active Start: 01-19-2023 End: 04-15-2025 take 1 tablet by mouth every eight hours Ondansetron Hcl 4 mg tablet Discontinued 4 MG PO Every 8 hours 6 2 September 16, 2024 1:00am April 15, 2025 11:47am Start: 08-16-2018 End: 08-19-2018 take 1 tablet by mouth every eight hours as needed for nausea and vomiting Ondansetron (Zofran Odt) 4 mg tablet,disintegrating Discontinued 4 MG PO Q8H as needed for nausea and vomiting 3 August 16, 2018 12:00am August 18, 2018 12:00am August 19, 2018 12:01am Start: 09-23-2017 End: 07-09-2018 take 1 tablet by mouth every eight hours Ondansetron (Zofran Odt) 4 mg tablet,disintegrating Discontinued 4 MG PO Q8H 9 July 06, 2018 12:00am July 08, 2018 12:00am July 09, 2018 12:04am ondansetron HCl (ZOFRAN ORAL) Take by mouth as needed. Active ondansetron HCl (ZOFRAN ORAL) Take by mouth as needed. 0 Active oseltamivir 30 mg oral capsule (18 sources) Neuraminidase Inhibitor Start: 01-16-2019 End: 01-21-2019 take 1 capsule by mouth twice daily Oseltamivir (Tamiflu) 30 mg capsule Discontinued 30 MG PO Twice daily 10 January 16, 2019 12:00am January 20, 2019 12:00am January 21, 2019 12:02am pravastatin sodium 80 mg oral tablet (19 sources) HMG-CoA Reductase Inhibitor Start: 09-23-2017 End: 08-20-2022 take 1 tablet by mouth once daily Pravastatin 80 mg Tablet Discontinued 80 MG PO Daily September 23, 2017 1:00am August 20, 2022 5:02pm 1 mg dose 1.5 ml semaglutide 1.34 mg/ml pen injector (11 sources) Start: 05-24-2020 End: 08-20-2022 inject 1 mg by subcutaneous injection every week Semaglutide (Ozempic) 1 mg/dose (2 mg/1.5 mL) Pen Injector Discontinued 1 MG SUBCUT every week May 23, 2020 11:00pm August 20, 2022 4:02pm Semaglutide (Ozempic) 1 mg/dose (2 mg/1.5 mL) Pen Injector (7 sources) Start: 05-24-2020 End: 08-20-2022 inject 1 mg by subcutaneous injection every week Semaglutide (Ozempic) 1 mg/dose (2 mg/1.5 mL) Pen Injector Discontinued 1 MG SUBCUT every week May 24, 2020 12:00am August 20, 2022 5:02pm sertraline 50 mg oral tablet (20 sources) Serotonin Reuptake Inhibitor Start: 09-23-2017 End: 02-08-2025 take 1 tablet by mouth once daily Sertraline 50 mg tablet Discontinued 50 MG PO Daily February 08, 2024 12:00am February 11, 2024 2:44pm SITagliptin 25 mg oral tablet (20 sources) Dipeptidyl Peptidase 4 Inhibitor Start: 11-23-2022 End: 02-14-2024 take 1 tablet by mouth once daily Sitagliptin Phosphate (Januvia) 25 mg tablet Discontinued 25 MG PO Daily August 20, 2023 12:00am February 14, 2024 10:00am Tirzepatide (15 sources) Start: 02-08-2024 End: 05-10-2024 Tirzepatide (Mounjaro) 2.5 mg/0.5 mL pen injector Discontinued 2.5 MG SUBCUT every week February 07, 2024 11:00pm May 10, 2024 8:10pm Start: 02-08-2024 End: 05-10-2024 Tirzepatide (Mounjaro) 2.5 m g/0.5 mL pen injector Discontinued 2.5 MG SUBCUT every week February 08, 2024 12:00am May 10, 2024 9:10pm Start: 02-08-2024 Tirzepatide (M ouvictor hugojaro) 2.5 mg/0.5 mL pen injector Active 2.5 MG SUBCUT every week February 08, 2024 12:00am Problems Active Problems Problem Classification Problem Date Documented Date Episodic/Chronic Abdominal hernia (20 sources) Incisional hernia; Translations: [Incisional hernia without obstruction or gangrene] Onset: 2 Episodic Administrative/social admission (7 sources) Patient encounter status; Translations: [Dietary counseling and surveillance] Onset: 4 07-07-2024 Episodic Anxiety disorders (20 sources) Panic disorder; Translations: [Panic disorder [episodic paroxysmal anxiety]] Onset: 3 Resolved: 3 03-15-2023 Chronic Calculus of urinary tract (20 sources) Kidney stone; Translations: [Calculus of kidney] Onset: 3 Episodic Cancer of colon (20 sources) Adenocarcinoma of large intestine; Translations: [Malignant neoplasm of transverse colon] Onset: 5 03-15-2023 Chronic Cancer of colon (20 sources) History of malignant neoplasm of colon; Translations: [Personal history of other malignant neoplasm of large intestine] Onset: 7 Episodic Chronic kidney disease (20 sources) Chronic kidney disease stage 4; Translations: [Chronic kidney disease, stage 4 (severe)] Onset: 2 Chronic Chronic kidney disease (3 sources) Chronic kidney disease; Translations: [Chronic kidney disease, stage 3 unspecified] Onset: 4 Conditions associated with dizziness or vertigo (20 sources) Dizziness; Translations: [Dizziness and giddiness] Onset: 3 08-20-2023 Episodic Deficiency and other anemia (20 sources) Iron deficiency anemia due to blood loss; Translations: [Iron deficiency anemia secondary to blood loss (chronic)] Onset: 8 03-23-2023 Chronic Diabetes mellitus with complications (20 sources) Disorder of kidney due to diabetes mellitus; Translations: [Type 2 diabetes mellitus with diabetic nephropathy] Onset: 2 Chronic Diabetes mellitus without complication (16 sources) Diabetes mellitus without complication; Translations: [Type 2 diabetes mellitus without complications] Onset: 4 12-12-2023 Chronic Diabetes mellitus without complication (20 sources) Acute hyperglycemia; Translations: [Hyperglycemia, unspecified] Onset: 4 08-20-2023 Episodic Disorders of lipid metabolism (20 sources) Dyslipidemia; Translations: [Hyperlipidemia, unspecified] Onset: 3 Chronic Epilepsy; convulsions (18 sources) Generalized idiopathic epilepsy and epileptic syndromes, not intractable, without status epilepticus; Translations: [Generalized nonconvulsive epilepsy, without mention of intractable epilepsy] Onset: 7 03-15-2023 Chronic Esophageal disorders (20 sources) Gastroesophageal reflux disease without esophagitis; Translations: [Gastro-esophageal reflux disease without esophagitis] Onset: 3 03-15-2023 Chronic Essential hypertension (13 sources) Hypertensive disorder; Translations: [Essential (primary) hypertension] 07-07-2024 Chronic Genitourinary congenital anomalies (9 sources) Congenital anomaly of the kidney; Translations: [Other specified congenital malformations of kidney] Onset: 3 03-15-2023 Chronic Genitourinary symptoms and ill-defined conditions (20 sources) Proteinuria; Translations: [Proteinuria, unspecified] Onset: 4 02-09-2024 Episodic Headache; including migraine (4 sources) Headache; including migraine; Translations: [HEADACHE UNSPECIFIED] Onset: 2 Hypertension with complications and secondary hypertension (20 sources) Chronic kidney disease due to hypertension; Translations: [Hypertensive chronic kidney disease with stage 1 through stage 4 chronic kidney disease, or unspecified chronic kidney disease] Onset: 8 Chronic Intestinal obstruction without hernia (20 sources) Intussusception of colon; Translations: [Intussusception] Onset: 3 03-15-2023 Episodic Malaise and fatigue (20 sources) Chronic fatigue syndrome; Translations: [Chronic fatigue syndrome] Onset: 3 03-15-2023 Chronic Mood disorders (20 sources) Recurrent major depressive episodes, mild ; Translations: [Major depressive disorder, recurrent, mild] Onset: 3 03-15-2023 Chronic Mycoses (2 sources) Pain in toe; Translations: [Tinea unguium] 11-11-2024 Episodic Nausea and vomiting (3 sources) Nausea; Translations: [Nausea] Onset: 3 Episodic Nephritis; nephrosis; renal sclerosis (20 sources) Atrophy of left kidney; Translations: [Atrophy of kidney (terminal)] Onset: 3 03-15-2023 Chronic Nutritional deficiencies (20 sources) Vitamin D deficiency; Translations: [Vitamin D deficiency, unspecified] Onset: 3 03-15-2023 Chronic Osteoarthritis (6 sources) Osteoarthritis of left knee joint; Translations: [Unilateral primary osteoarthritis, left knee] 12-12-2023 Chronic Other acquired deformities (20 sources) Contracture of joint of right ankle; Translations: [Contracture, right ankle] Onset: 3 03-15-2023 Chronic Other acquired deformities (2 sources) Contracture of joint of left ankle; Translations: [Contracture, left ankle] 11-11-2024 Chronic Other aftercare (1 source) Postoperative visit; Translations: [Encounter for other specified surgical aftercare] 02-13-2025 Episodic Other aftercare (2 sources) custodial (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; Translations: [parts counterman (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] Onset: 5 Episodic Other aftercare (1 source) Encounter for other specified surgical aftercare; Translations: [Postoperative visit] Onset: 5 Episodic Other bone disease and musculoskeletal deformities (20 sources) Osteochondritis dissecans of left ankle; Translations: [Osteochondritis dissecans, left ankle and joints of left foot] Onset: 3 03-15-2023 Chronic Other connective tissue disease (2 sources) Tendinitis of right posterior tibial tendon; Translations: [Posterior tibial tendinitis, right leg] 10-03-2024 Episodic Other connective tissue disease (2 sources) Peroneal tendinitis of left lower limb; Translations: [Peroneal tendinitis, left leg] 11-11-2024 Episodic Other diseases of bladder and urethra (20 sources) Overactive bladder; Translations: [Overactive bladder] Onset: 3 03-15-2023 Chronic Other diseases of bladder and urethra (1 source) Overactive bladder; Translations: [Overactive bladder] Onset: 4 Chronic Other diseases of kidney and ureters (20 sources) Secondary hyperparathyroidism; Translations: [Secondary hyperparathyroidism of renal origin] Onset: 4 02-14-2024 Chronic Other diseases of kidney and ureters (9 sources) Secondary hyperparathyroidism of renal origin; Translations: [Secondary hyperparathyroidism (of renal origin)] Onset: 4 Chronic Other diseases of kidney and ureters (20 sources) Renal mass; Translations: [Other specified disorders of kidney and ureter] Onset: 3 03-15-2023 Chronic Other diseases of kidney and ureters (1 source) Disorder of kidney and/or ureter; Translations: [Disorder of kidney and ureter, unspecified] Onset: 2 Episodic Other diseases of kidney and ureters (20 sources) Renal impairment; Translations: [Disorder of kidney and ureter, unspecified] Onset: 4 09-23-2017 Episodic Other endocrine disorders (20 sources) Polycystic ovary; Translations: [Polycystic ovarian syndrome] Onset: 3 03-15-2023 Chronic Other gastrointestinal disorders (20 sources) Decreased bowel sounds; Translations: [Other abnormal bowel sounds] Onset: 4 05-24-2020 Episodic Other gastrointestinal disorders (13 sources) Constipation; Translations: [Constipation, unspecified] 09-16-2024 Episodic Other gastrointestinal disorders (6 sources) H/O: abdominal hernia; Translations: [Personal history of other diseases of the digestive system] Onset: 5 01-14-2025 Episodic Other gastrointestinal disorders (1 source) Diarrhea; Translations: [Diarrhea, unspecified] 05-29-2025 Episodic Other nervous system disorders (6 sources) Acute postoperative pain; Translations: [Other acute postprocedural pain] Onset: 5 01-14-2025 Episodic Other nervous system disorders (1 source) Postoperative pain ; Translations: [Other acute postprocedural pain] 02-17-2025 Episodic Other nervous system disorders (1 source) Other acute postprocedural pain; Translations: [Acute post-operative pain] Onset: 5 Episodic Other non-traumatic joint disorders (4 sources) Sinus tarsi syndrome of right ankle; Translations: [Pain in right ankle and joints of right foot] 10-03-2024 Episodic Other non-traumatic joint disorders (4 sources) Instability of joint of right ankle; Translations: [Other instability, right ankle] 10-03-2024 Episodic Other non-traumatic joint disorders (1 source) Pain in right ankle and joints of right foot; Translations: [Pain in right ankle and joints of right foot] Onset: 5 Episodic Other non-traumatic joint disorders (1 source) Ankle pain Onset: 5 Episodic Other nutritional; endocrine; and metabolic disorders (20 sources) Body mass index 40+ - severely obese; Translations: [Body mass index (BMI) 50.0-59.9, adult] Onset: 3 Chronic Other nutritional; endocrine; and metabolic disorders (16 sources) Morbid obesity; Translations: [Morbid (severe) obesity due to excess calories] Onset: 4 02-08-2024 Chronic Other nutritional; endocrine; and metabolic disorders (2 sources) Body mass index (BMI) 60.0-69.9, adult; Translations: [Body Mass Index 60.0-69.9, adult] 02-11-2024 Chronic Other nutritional; endocrine; and metabolic disorders (20 sources) Severe obesity; Translations: [Morbid (severe) obesity due to excess calories] Onset: 4 05-26-2024 Chronic Other nutritional; endocrine; and metabolic disorders (6 sources) Body mass index (BMI) 50.0-59.9, adult; Translations: [Body Mass Index 50.0-59.9, adult] Onset: 4 06-16-2024 Chronic Other nutritional; endocrine; and metabolic disorders (3 sources) Morbid (severe) obesity due to excess calories; Translations: [Morbid (severe) obesity due to excess calories] Onset: 4 Chronic Other upper respiratory infections (20 sources) Acute rhinosinusitis; Translations: [Acute sinusitis, unspecified] Onset: 4 08-20-2023 Episodic Residual codes; unclassified (20 sources) Obstructive sleep apnea syndrome; Translations: [Obstructive sleep apnea (adult) (pediatric)] Onset: 3 03-15-2023 Chronic Residual codes; unclassified (2 sources) Family history of malignant neoplasm of digestive organ; Translations: [Family history of malignant neoplasm of digestive organs] Onset: 2 Episodic Residual codes; unclassified (8 sources) Family history of cancer of colon 10-25-2022 Episodic Residual codes; unclassified (6 sources) History of hernia repair; Translations: [Other specified postprocedural states] Onset: 5 01-14-2025 Episodic Residual codes; unclassified (3 sources) History of cardiovascular surgery; Translations: [Other specified postprocedural states] 05-19-2025 Episodic Spondylosis; intervertebral disc disorders; other back problems (9 sources) Backache; Translations: [Dorsalgia, unspecified] Onset: 4 Episodic Syncope (1 source) Syncope and collapse; Translations: [Syncope and collapse] Onset: 4 Episodic Thyroid disorders (20 sources) Hypothyroidism, unspecified; Translations: [Hypothyroidism] Onset: 2 03-15-2023 Chronic Unclassified (4 sources) Cyclical vomiting syndrome unrelated to migraine; Translations: [CYCLICL VOMTNG SYN UNRELTD MIGRAINE] Onset: 3 Unclassified (1 source) New Patient Onset: 4 Unclassified (1 source) EMS Onset: 5 Unclassified (1 source) Weight Check Onset: 4 Unclassified (1 source) narcotic agreement Onset: 4 Unclassified (1 source) Class 3 severe obesity due to excess calories with serious comorbidity and body mass index (BMI) of 50.0 to 59.9 in adult (HCC); Translations: [Class 3 severe obesity due to excess calories with serious comorbidity and body mass index (BMI) of 50.0 to 59.9 in adult (HCC)] Onset: 4 Unclassified (3 sources) Call for appointment. I would like to see you in 2 to 3 weeks if no problems before hand Unclassified (1 source) Low back pain, unspecified; Translations: [Low back pain, unspecified] Onset: 5 Past or Other Problems Problem Classification Problem Date Documented Da te Episodic/Chronic Abdominal pain (20 sources) Abdominal pain; Translations: [Unspecified abdominal pain] Onset: 10-11-2017 Episodic Acute and unspecified renal failure (20 sources) Acute renal failure syndrome; Translations: [Acute kidney failure, unspecified] Onset: 02-25-2024 08-20-2022 Episodic Bacterial infection; unspecified site (1 source) Bacterial infection, unspecified; Translations: [Bacterial infection, unspecified] Onset: 06-14-2024 Episodic Contraceptive and procreative management (1 source) Tubal ligation status; Translations: [TUBAL LIGATION STATUS] Onset: 08-01-2022 Episodic Deficiency and other anemia (20 sources) Anemia; Translations: [Anemia, unspecified] Onset: 03-15-2023 03-15-2023 Episodic Fluid and electrolyte disorders (19 sources) Dehydration; Translations: [Dehydration] Onset: 06-14-2024 06-13-2024 Episodic Malaise and fatigue (1 source) Other fatigue; Translations: [Other fatigue] Onset: 01-28-2024 Episodic Mood disorders (20 sources) Mood disorders Onset: 05-05-2024 Resolved: 04-01-2025 05-05-2024 Other connective tissue disease (1 source) Enthesopathy, unspecified Onset: 06-05-2022 Resolved: 06-05-2022 Episodic Other gastrointestinal disorders (6 sources) Constipation, unspecified; Translations: [CONSTIPATION UNSPECIFIED] Onset: 07-30-2022 Episodic Other gastrointestinal disorders (20 sources) Chronic constipation; Translations: [Other constipation] Onset: 03-15-2023 03-15-2023 Episodic Other injuries and conditions due to external causes (1 source) Unspecified injury of right wrist, hand and finger(s), initial encounter Onset: 06-05-2022 Resolved: 06-05-2022 Episodic Other injuries and conditions due to external causes (1 source) History of falling; Translations: [HISTORY OF FALLING] Onset: 08-28-2022 Episodic Other lower respiratory disease (18 sources) Snoring; Translations: [Snoring] Onset: 05-26-2024 05-26-2024 Episodic Other lower respiratory disease (1 source) Snoring; Translations: [Snoring] Onset: 05-26-2024 Episodic Other nervous system disorders (20 sources) Ataxia; Translations: [Ataxia, unspecified] Onset: 03-15-2023 03-15-2023 Episodic Other nervous system disorders (9 sources) Impairment of balance; Translations: [Other abnormalities of gait and mobility] Onset: 03-15-2023 03-15-2023 Episodic Other nutritional; endocrine; and metabolic disorders (1 source) Weight loss Onset: 07-21-2024 Episodic Residual codes; unclassified (1 source) Patient's other noncompliance with medication regimen; Translations: [PT OTH NONCOMPLIANCE W/ MED REGIMEN] Onset: 08-28-2022 Episodic Residual codes; unclassified (1 source) Acquired absence of other specified parts of digestive tract; Translations: [ACQ ABSENCE OTH PART DIGESTV TRACT] Onset: 08-01-2022 Episodic Residual codes; unclassified (20 sources) Disorder of digestive tract; Translations: [Acquired absence of other specified parts of digestive tract] Onset: 03-15-2023 03-15-2023 Episodic Residual codes; unclassified (20 sources) History of excision of intestinal structure; Translations: [Other specified postprocedural states] Onset: 09-27-2017 03-23-2023 Episodic Unclassified (20 sources) Onset: 08-25-2024 Resolved: 04-01-2025 08-25-2024 Urinary tract infections (20 sources) Acute cystitis; Translations: [Acute cystitis with hematuria] Onset: 06-14-2024 12-12-2023 Episodic Results Test Name Value Interpretation Reference Range Facility CT Abdomen/Pelvis w/o Contra ston 06-08-2025 CT Abdomen/Pelvis w/o Contrast Exam Date/Time: 06/07/2025 21:44 EDT Reason for Exam: ABDOMINAL PAIN, ACUTE, NONLOCALIZED;Other (please specify) Report IMPRESSION: No acute process in the unenhanced abdomen/pelvis. Interval postsurgical changes of repair of the prior ventral hernias. HISTORY: Diarrhea. Abdominal pain. Dizziness. History of hernia, cholecystectomy, colon cancer. TECHNIQUE: Non-IV contrast imaging of the abdomen and pelvis was performed. Unenhanced imaging is limited for the evaluation of some intra-abdominal and pelvic pathology. Unless otherwise stated, incidental findings in this report do not require further routine follow-up imaging. All CT scans at this facility use dose modulation, iterative reconstruction, and/or weight based dosing when appropriate to reduce radiation dose to as low as reasonably achievable. COMPARISON: CT 09/13/2024. RESULT: Liver: Unenhanced liver grossly unremarkable. Biliary: Cholecystectomy. No abnormal bile duct dilation. Pancreas: Unremarkable. Spleen: No splenomegaly. Adrenals: Tiny benign-appearing left adrenal nodule, unchanged. Right jugular gland unremarkable. Kidneys and urinary tract: Severe atrophy involving both kidneys with lobular contour and areas of parenchymal thinning, similar to prior. Multiple simple appearing bilateral renal cysts, grossly unchanged. No hydronephrosis. Possible small left renal calculus. GI Tract: No bowel dilation. Appendix unremarkable. No evidence for diverticulitis. Lymph Nodes: No lymphadenopathy. Mesentery/peritoneum/retr operitoneum: No ascites or mass. Vasculature: Mild arterial atherosclerotic disease without aneurysm. Pelvis: No significant free fluid. Bladder unremarkable. Coils in the adnexal Report regions. Bones/Soft Tissues: No acute osseous findings. Degenerative changes. DISH. Interval postsurgical changes involving the ventral tissues with the prior ventral hernias no longer visualized. Minimal areas of stranding within the ventral tissues, likely postsurgical. Lower thorax: Unremarkable. Tech Comments: Rectal Contrast Given? No Ordering Provider: Elias Bryant FINAL REPORT Dictated: 06/08/2025 8:59 am Jayesh Araya MD Signed (Electronic Signature): 06/08/2025 8:59 am Signed by: Jayesh Araya MD Transcribed by: ORIN Technologist: WILSON Breaux [facility] ED Clinical Summaryon 2024 ED Clinical Summary ED Clinical Summary [place] [id number] ED Clinical Summary Person Information Name: GUERRERO RAMOS/[facility] Age: 44 Years : 1980 Sex: Female Language: Syrian PCP: JAYESH ESCALANTE MD Marital Status: Single Visit Id: Visit Reason: Dizziness; Diarrhea; Abdominal pain; DIZZINESS, ACID REFLUX, LOOSE BOWELS Speciality: Acuity: 3 Enc Type: Emergency Med Service: Emergency Arrival: 06/07/2025 20:42:19 Discharge: 06/08/2025 02:49:15 LOS: 000 06:07 Checkin: 06/07/2025 20:42:19 Checkout: 06/08/2025 02:49:15 Dispo Type: Home (Routine DC) EVENTS: Event Name Event Status Request Date/Time Start Date/Time Complete Date/Time Arrive Complete 06/07/2025 20:42:19 06/07/2025 20:42:19 06/07/2025 20:42:19 Document Home Meds Request 06/07/2025 20:42:19 Triage Complete 06/07/2025 20:42:19 06/07/2025 20:51:51 06/07/2025 20:51:51 Bed Assign Complete 06/07/2025 20:45:39 06/07/2025 20:45:39 06/07/2025 20:45:39 Dr Exam Complete 06/07/2025 20:45:39 06/07/2025 20:53:42 06/07/2025 20:53:42 RN Exam Complete 06/07/2025 20:45:39 06/07/2025 21:35:13 06/07/2025 21:35:13 EKG Complete 06/07/2025 20:50:09 06/07/2025 20:58:20 Registration Complete 06/07/2025 20:53:15 06/07/2025 20:53:15 06/07/2025 20:53:15 Reg Complete Request 06/07/2025 20:53:15 Reg Bed Request Complete 06/07/2025 20:53:15 06/07/2025 20:53:15 06/07/2025 20:53:15 Registration Request 06/07/2025 20:53:42 Pending Labs Complete 06/07/2025 20:58:12 06/07/2025 20:58:12 06/07/2025 20:58:12 Dr Exam Complete 06/07/2025 20:59:07 06/07/2025 20:59:07 06/07/2025 20:59:07 CT Complete 06/07/2025 21:12:09 06/07/2025 21:29:27 06/07/2025 21:44:29 NPO Request 06/07/2025 21:12:09 Meds Admin Complete 06/07/2025 21:12:09 06/07/2025 21:26:00 Pending Labs Complete 06/07/2025 21:12:09 06/08/2025 01:55:58 Lab Complete 06/07/2025 21:12:09 06/07/2025 21:54:39 Pending Labs Request 06/07/2025 21:12:21 Pending Labs Complete 06/07/2025 21:15:46 06/07/2025 21:15:46 06/07/2025 21:44:07 Lab Complete 06/07/2025 21:15:46 06/07/2025 21:15:46 06/07/2025 21:44:07 Meds Admin Request 06/07/2025 21:17:46 EKG Complete 06/07/2025 22:12:39 06/07/2025 22:20:50 Pending Labs Complete 06/08/2025 00:59:15 06/08/2025 00:59:15 06/08/2025 00:59:15 Pending Labs Collected 06/08/2025 01:55:58 06/08/2025 01:55:58 Lab Collected 06/08/2025 01:55:58 06/08/2025 01:55:58 Discharge Complete 06/08/2025 02:32:51 06/08/2025 02:49:20 06/08/2025 02:49:20 Transfer Complete 06/08/2025 02:49:20 06/08/2025 02:49:20 06/08/2025 02:49:20 ADDRESS: [address] [place] [phone] PHYS DOC NOTES: MEDICAL INFORMATION: Prescriptions Given: New Medications [facility] [id number] [address] [phone], [phone] simethicone (simethicone 125 mg oral capsule) 1 Capsules By Mouth 4 times a day. Refills: 0. Medications to Continue Taking That Have Changed [facility] [id number] [place] [phone], [phone] START: ondansetron (Zofran 4 mg Tab) 1 Tablets By Mouth every 8 hours as needed Nausea/Vomiting. Refills: 0. Other Medications START: ondansetron (Zofran 4 mg Tab) 1 Tablets By Mouth every 8 hours as needed Nausea/Vomiting. Refills: 0. START: ondansetron (Zofran ODT 4 mg Tab-Dis) 1 Tablets By Mouth every 8 hours. Refills: 0. START: ondansetron (Zofran ODT 4 mg Tab-Dis) 1 Tablets By Mouth every 8 hours as needed Nausea/Vomiting. Refills: 0. START: ondansetron (Zofran ODT 4 mg Tab-Dis) 1 Tablets By Mouth every 8 hours. Refills: 0. START: ondansetron (Zofran ODT 4 mg Tab-Dis) 1 Tablets By Mouth 3 times a day. Refills: 0. Medications to Continue with No Changes Other Medications alprazolam (alprazolam 0.5 mg Tab) 1 Tablets By Mouth 3 times a day as needed for anxiety. dicyclomine (dicyclomine 20 mg Tab) 1 Tablets By Mouth 4 times a day. Refills: 0. ergocalciferol (ergocalciferol 50,000 intl units Cap) famotidine (Pepcid 20 mg Tab) 1 Tablets By Mouth 2 times a day. Refills: 0. meclizine (meclizine 25 mg Tab) promethazine (promethazine 12.5 mg oral tablet) 1 Tablets By Mouth every 4 hours. Refills: 0. promethazine (promethazine 25 mg Tab) 1 Tablets By Mouth every 4 hours as needed for nausea/vomiting. Refills: 0. rosuvastatin (rosuvastatin 20 mg Tab) semaglutide (Ozempic (1 mg dose) 4 mg/3 mL subcutaneous solution) sertraline (sertraline 50 mg Tab) tramadol (traMADOL 50 mg Tab) trazodone (traZODONE 100 mg Tab) PATIENT EDUCATION INFORMATION: Instructions: Abdominal Pain, Adult; Diarrhea, Adult Follow up: With: Address: When: JAYESH ESCALANTE [address] [place] [id number] Business (1) In 3 days DIAGNOSIS: 1:Abdominal pain; 2:Diarrhea; 3:Nausea Normal [facility] ED Note-Physicianon 06-08-20 ED Note-Physician ED Note-Physician Basic Information Time Seen: Elias Bryant DO 06/07/2025 20:53 Chief Complaint pt presetns through triage from home with c/o diarrhea, abd pain, and acid reflux that started last night. pt also has c/o dizziness that started this afternoon. History of Present Illness Patient is a 44-year-old female history of stage IV chronic kidney disease of colon cancer status post partial colectomy, colon cancer reportedly in remission, history of reported ventral hernia status post surgical repair status post cholecystectomy. Presenting for evaluation of symptoms of right upper quadrant abdominal pain that is radiating down to her right lower abdomen. Started last night. She admits to nausea but no vomiting with this. No fevers or chills. Pain has been constant since it started. She admits to moderate intensity pain. She also admits to having loose stool mostly in the morning for about a couple of weeks now. Denies any melena hematochezia. Denies any chest pain or shortness of breath. Patient admits that she is in the process of following with Dr. Maloney for dialysis for her chronic kidney disease. She did have a fistula created in the left upper extremity and she is following with vascular, I do not going to have some imaging done in a couple of weeks to see if it is ready to use. She has not yet had any dialysis. Review of Systems Constitutional: no fever, no chills, no sweats, no weakness HEENT: no sore throat, ear pain, sinus congestion Respiratory: no SOB, no cough, no orthopnea, no wheezing Cardiovascular: no chest pain, no palpitations, no edema Abdomen: Positive for abdominal pain, nausea and diarrhea Extremities: no swelling Neurological: no dizziness, confusion, headache Additional ROS info: Except as noted above in the above review of systems and in the history of present illness all other systems have been reviewed and are negative or noncontributory Physical Exam Vitals & Measurements T: 36.8 ???C(Oral) HR: 86(Peripheral) RR: 20 BP: 164/94 SpO2: 98% HT: 160.02 cm WT: 142.2 kg BMI: 55.53 Constitutional: No acute distress, nontoxic, non ill appearing Heart: Regular rate and rhythm without murmurs, gallops or rubs Lungs: clear to auscultation bilaterally without wheezes, rales or rhonchi Abdomen: Soft, distended, minimally tender in the right upper quadrant right lower quadrant. Negative Rao sign. Extremities: warm and dry bilaterally without pitting edema Neurological: awake, alert answers questions appropriately Medical Decision Making Patient given 500 mL of IV fluid for hydration, Zofran for nausea and quadrant pain. Will obtain lab work and CT scan abdomen pelvis to evaluate for any evidence of obstruction intra-abdominal infectious etiology. Will see if she is able to give a stool sample to check for C. difficile colitis. Labs showing anemia, new compared to prior study in August 2024 likely secondary to chronic kidney disease. Kidney function is stable. LFTs and lipase unremarkable. CAT scan of the pelvis not show any acute pathology. Awaiting patient's urinalysis testing results. Discussed results of the workup. She can follow-up with her primary care physician for outpatient stool testing to check for C. difficile colitis. No acute emergent conditions were identified. Will treat her abdominal discomfort with Gas-X and give her prescription for Zofran for nausea. She is agreeable with plan. Urinalysis does not show any evidence of infection. Patient discharged home. Assessment/Plan 1. Abdominal pain (R10.9: Unspecified abdominal pain) 2. Diarrhea (R19.7: Diarrhea, unspecified) 3. Nausea (R11.0: Nausea) Orders: HYDROmorphone, 0.5 mg = 0.5 mL, Injection, IV Push, Once, Stop date 06/07/25 21:11:00 EDT, STAT, Start date 06/07/25 21:11:00 EDT, 06/07/25 21:11:00 EDT ondansetron, 4 mg = 2 mL, Injection, IV Push, Once, Stop date 06/07/25 21:11:00 EDT, STAT, Start date 06/07/25 21:11:00 EDT, 06/07/25 21:11:00 EDT ondansetron, 4 mg = 1 tab(s), Oral, q8hr, PRN Nausea/Vomiting, # 12 tab(s), Refills(s) 0, Pharmacy: [facility] 1429, 160, cm, 06/07/25 20:51:00 EDT, Height/Length Dosing, 142.2, kg, 06/07/25 20:51:00 EDT, Weight Dosing simethicone, 125 mg = 1 cap(s), Oral, QID, # 30 cap(s), Refills(s) 0, Pharmacy: [facility], 160, cm, 06/07/25 20:51:00 EDT, Height/Length Dosing, 142.2, kg, 06/07/25 20:51:00 EDT, Weight Dosing Sodium Chloride 0.9% intravenous solution 500 mL, 500 mL, IV, 1,000 mL/hr, STAT, Start date 06/07/25 21:17:00 EDT, 0.5 hour(s), Total volume (mL): 500, 142.2 kg, 2.51, m2 Basic Metabolic Panel Capillary Glucose POC CBC w/ Auto Diff Clostridium Difficile PCR CT Abdomen/Pelvis w/o Contrast ECG 12 Lead Adult eGFR Extra Blue Tube Hepatic Function Panel Lipase Level NPO Diet UA with Cult Rflx Urine Culture Disposition Plan Discharge Prescription List Prescriptions No active prescription medications Follow-up No qualifying data available (more content not included)... Normal [facility] Comment on above: Result Comment: Elec tronically Signed By: Elias Bryant DO\.br\Date and Time Signed: 06/08/25 02:33 EDT ED Patient Summaryon 025 ED Patient Summary ED Patient Summary [place] [id number] Patient Discharge Instructions Person Information Name: GUERRERO RAMOS Age: 44 Years Arrival Date: 06/07/2025 20:42:19 Discharge Diagnosis: 1:Abdominal pain; 2:Diarrhea; 3:Nausea Primary Care Physician: JAYESH ESCALANTE MD Provider Information Primary Provider: Elias Bryant DO Advanced Office Cashier:None The exam and treatment you received in the Emergency Department were for an urgent problem and are not intended as complete care. It is important that you follow up with a doctor, nurse practitioner, or physician???s surgical assistant certified for ongoing care. If your symptoms become worse or you do not improve as expected and you are unable to reach your usual health care provider, you should return to the Emergency Department. We are available 24 hours a day. GUERRERO RAMOS has been given the following list of patient education materials, prescriptions and follow-up instructions: Follow-up Instructions: With: Address: When: JAYESH ESCALANTE [address] [place] [id number] Business (1) In 3 days In the event that this physician does not participate in your insurance network, please consult with your insurance company to find a nearby participating provider. Patient Education Materials: Abdominal Pain, Adult; Diarrhea, Adult A MESSAGE TO ALL PATIENTS REGARDING OPIOIDS PRESCRIPTION OPIOIDS: WHAT YOU NEED TO KNOW Prescription opioids can be used to help relieve [id number] pain and are often prescribed following a surgery or injury, or for certain health conditions. These medications can be an important part of the treatment but also come with serious risks. It is important to work with your healthcare provider to make sure you are getting the safest, most effective care. WHAT ARE THE RISKS AND SIDE EFFECTS OF OPIOID USE? Prescription opioids carry serious risks of addiction and overdose, especially with prolonged use. An opioid overdose, often marked by slowed breathing, can cause sudden . The use of prescription opioids can have a number of side effects as well, even when taken as directed: ??? Tolerance???meaning you might need to take more of the medication for the same pain relief ??? Physical dependence???meaning you have symptoms of withdrawal when a medication is stopped ??? Increased sensitivity to pain ??? Constipation ??? Nausea, vomiting, and dry mouth ??? Sleepiness and dizziness ??? Confusion ??? Depression ??? Low levels of testosterone that can result in lower sex drive, energy, and strength ??? Itching and sweating RISKS ARE GREATER WITH: ??? History of drug misuse, substance use disorder, or overdose ??? Mental health conditions (such as depression or anxiety) ??? Sleep apnea ??? Older age (65 years and older) ??? Avoid alcohol while taking prescription opioids. Also, unless specifically advised by your health care provider, medications to avoid include: ??? Benzodiazepines (such as Xanax or Valium) ??? Muscle relaxants (such as Soma or Flexeril) ??? Hypnotics (such as Ambien or Lunesta) ??? Other prescription opioids KNOW YOUR OPTIONS Talk to your health care provider about ways to manage your pain that don???t involve prescription opioids. Some of these options may actually work better and have fewer risks and side effects. Options may include: ??? Pain relievers such as acetaminophen, ibuprofen, and naproxen ??? Some medication that are also used for depression or seizures ??? Physical therapy and exercise ??? Cognitive behavioral therapy, a psychological, goal-directed approach, in which patients learn how to modify physical, behavioral, and emotional triggers of pain and stress. IF YOU ARE PRESCRIBED OPIOIDS FOR PAIN: ??? Never take opioids in greater amounts or more often than prescribed. ??? Follow up with your primary health care provider. o Work together to create a plan on how to manage your pain. o Talk about ways to help manage your pain that don???t involve prescription opioids. o Talk about any and all concerns and side effects. ??? Help prevent misuse and abuse o Never sell or share prescription opioids. o Never use another person???s prescription opioids. ??? Store prescription opioids in a secure place and out of reach of others (this may include visitors, children, friends, and family). ??? Safely dispose of unused prescription opioids: Find your community drug take-back program or your pharmacy mail-back program, or flush them down the toilet, following guidance from the Food and Drug Administration (www.fda.gov/Drugs/Resour cesForYou). ??? Visit www.cdc.gov/drugoverdose to learn about the risks of opioids abuse and overdose. ??? If you believe you may be struggling with addiction, tell your health care profession (more content not included)... Normal [facility] Extra Blueon 06-08-2025 Tube Collected Plasma Yes Invalid Interpretation Code [facility] Comment on above: Performed By: #### [id number] #### [facility] [address] [place] [address] UA with Cult Rflxon 06-08-20 25 Color (U) Light-Yellow Normal Yellow [facility] Comment on above: Result Comment: Micr oscopic readings are only performed on those samples that meet specific criteria set forth by [facility]. Performed By: #### 4 [id number] #### [facility] [address] [place] [address] Glucose (U) [Mass/Vol] Negative Normal Negative Fi [facility] Comment on above: Performed By: #### 4 [id number] #### [facility] [address] [place] [address] Ketones Ql (U) Negative Normal Negative [facility] Comment on above: Performed By: #### 4 [id number] #### [facility] [address] [place] [address] UA Blood Negative Normal Negative [facility] Comment on above: Performed By: #### 4 [id number] #### [facility] [address] [place] [address] UA Amorph Jessica Present Abnormal [facility] Comment on above: Performed By: #### 4 [id number] #### [facility] [address] [place] [address] UA Bacteria 2+ /HPF Abnormal Trace [facility] Comment on above: Performed By: #### 4 [id number] #### [facility] [address] [place] [address] UA Clarity Clear Normal Clear [facility] Comment on above: Performed By: #### 4 [id number] #### [facility] [address] [place] [address] UA Leuk Est Negative Normal Negative [facility] Comment on above: Performed By: #### 4 [id number] #### [facility] [address] [place] [address] UA Mucous Trace Normal Negative [facility] Comment on above: Performed By: #### 4 [id number] #### [facility] [address] [place] [address] UA Nitrite Negative Normal Negative [facility] Comment on above: Performed By: #### 4 [id number] #### [facility] [address] [place] [address] UA pH 6.0 Invalid Interpretation Code 5.0-9.0 [facility] Comment on above: Performed By: #### 4 [id number] #### [facility] [address] [place] [address] UA Protein 2+ mg/dL Abnormal Negative [facility] Comment on above: Performed By: #### 4 [id number] #### [facility] [address] [place] [address] UA RBC 0-3 Normal 0-3 [facility] Comment on above: Performed By: #### 4 [id number] #### [facility] [address] [place] [address] UA Spec Grav 1.014 Invalid Interpretation Code 1.005-1.03 0 [facility] Comment on above: Performed By: #### 4 [id number] #### [facility] [address] [place] [address] UA Squam Epithelial 5-8 Invalid Interpretation Code [facility] Comment on above: Performed By: #### 4 [id number] #### [facility] [address] [place] [address] UA Urobilinogen Negative Normal Negative [facility] Comment on above: Performed By: #### 4 [id number] #### [facility] [address] [place] [address] UA WBC 0-5 Normal 0-5 [facility] Comment on above: Performed By: #### 4 [id number] #### [facility] [address] [place] [address] Urobilinogen (U) [Mass/Vol] Negative Normal Negative [facility] Comment on above: Performed By: #### 4 [id number] #### [facility] [address] [place] [address] BMPon 06-07-2025 Anion gap [Moles/Vol] 12 mmol/L Normal 6-16 [facility] Comment on above: Performed By: #### 2 [id number] #### [facility] [address] [place] [address] BUN/Creat Ratio 13 No Units Normal 10-20 [facility] Comment on above: Performed By: #### 2 [id number] #### [facility] [address] [place] [address] Calcium [Mass/Vol] 8.8 mg/dL Low 8.9-11.1 [facility] Comment on above: Performed By: #### 2 [id number] #### [facility] [address] [place] [address] Chloride [Moles/Vol] 108 mmol/L Normal 101-111 [facility] Comment on above: Performed By: #### 2 [id number] #### [facility] [address] [place] [address] CO2 [Moles/Vol] 20 mmol/L Low 21-31 [facility] Comment on above: Performed By: #### 2 [id number] #### [facility] [address] [place] [address] Creatinine [Mass/Vol] 2.2 mg/dL High 0.5-1.3 [facility] Comment on above: Performed By: #### 2 [id number] #### [facility] [address] [place] [address] Glucose [Mass/Vol] 177 mg/dL Normal 55-199 [facility] Comment on above: Performed By: #### 2 [id number] #### [facility] [address] [place] [address] Potassium [Moles/Vol] 3.8 mmol/L Normal 3.5-5.3 [facility] Comment on above: Performed By: #### 2 [id number] #### [facility] [address] [place] [address] Sodium [Moles/Vol] 136 mmol/L Normal 135-145 [facility] Comment on above: Performed By: #### 2 [id number] #### [facility] [address] [place] [address] Urea nitrogen [Mass/Vol] 29 mg/dL High 5-21 [facility] Comment on above: Performed By: #### 2 [id number] #### [facility] [address] [place] [address] CBC w/ Auto Diffon 5 Anisocytosis Ql (Bld) PRESENT Invalid Interpretation [facility] Comment on above: Performed By: #### 2 [id number] #### [facility] [address] [place] [address] Basophil Absolute 0.0 E9/L Normal 0.0-0.2 [facility] Comment on above: Performed By: #### 2 [id number] #### [facility] [address] [place] [address] Basophils/100 WBC (Bld) 0.5 % Normal 0.0-2.0 [facility] Comment on above: Performed By: #### 2 [id number] #### [facility] [address] [place] [address] Eos Absolute 0.3 E9/L Normal 0.0-0.5 [facility] Comment on above: Performed By: #### 2 [id number] #### [facility] [address] [place] [address] Eosinophils/100 WBC (Bld) 4.2 % Normal 0.0-8.0 [facility] Comment on above: Performed By: #### 2 [id number] #### [facility] [address] [place] [address] Erythrocyte distribution width (RBC) [Ratio] 17.2 % High 10.9-14.2 [facility] Comment on above: Performed By: #### 2 [id number] #### [facility] [address] [place] [address] Hematocrit (Bld) [Volume fraction] 33.0 % Low 34.0-46.0 [facility] Comment on above: Performed By: #### 2 [id number] #### [facility] [address] [place] [address] Hemoglobin (Bld) [Mass/Vol] 10.9 g/dL Low 12.0-16.0 [facility] Comment on above: Performed By: #### 2 [id number] #### [facility] [address] [place] [address] Lymph Absolute 1.9 E9/L Normal 1.0-4.0 [facility] Comment on above: Performed By: #### 2 [id number] #### [facility] [address] [place] [address] Lymphocytes/100 WBC (Bld) 26.6 % Normal 14.0-50.0 [facility] Comment on above: Performed By: #### 2 [id number] #### [facility] [address] [place] [address] MCH (RBC) [Entitic mass] 23.9 pg Low 27.0-34.0 [facility] Comment on above: Performed By: #### 2 [id number] #### [facility] [address] [place] [address] MCHC (RBC) [Mass/Vol] 33.2 g/dL Normal 31.4-36.0 [facility] Comment on above: Performed By: #### 2 [id number] #### [facility] [address] [place] [address] MCV (RBC) [Entitic vol] 72.1 fL Low 80.0-100.0 [facility] Comment on above: Performed By: #### 2 [id number] #### [facility] [address] [place] [address] Microcyte PRESENT Invalid Interpretation Code [facility] Comment on above: Performed By: #### 2 [id number] #### [facility] [address] [place] [address] [place] Absolute 0.5 E9/L Normal 0.2-1.[address] [facility] Comment on above: Performed By: #### 2 [id number] #### [facility] [address] [place] [address] Monocytes/100 WBC (Bld) 6.6 % Normal 4.0-14.0 [facility] Comment on above: Performed By: #### 2 [id number] #### [facility] [address] [place] [address] Neutro Absolute 4.5 E9/L Normal 2.0-7.5 [facility] Comment on above: Performed By: #### 2 [id number] #### [facility] [address] [place] [address] Neutro Auto 62.1 % Normal 36.0-75.0 [facility] Comment on above: Performed By: #### 2 [id number] #### [facility] [address] [place] [address] Platelet 264.0 E9/L Normal 150.0-500. 0 [facility] Comment on above: Performed By: #### 2 [id number] #### [facility] [address] [place] [address] Platelet mean volume (Bld) [Entitic vol] 7.0 fL Normal 6.4-10.8 [facility] Comment on above: Performed By: #### 2 [id number] #### [facility] [address] [place] [address] RBC 4.6 E12/L Normal 4.3-5.9 [facility] Comment on above: Performed By: #### 2 [id number] #### [facility] [address] [place] [address] RBC morphology finding Nom (Bld) SEE MORPHOLOGY Invalid Interpretation Code [facility] Comment on above: Performed By: #### 2 [id number] #### [facility] [address] [place] [address] WBC 7.3 E9/L Normal 4.0-11.0 [facility] Comment on above: Performed By: #### 2 [id number] #### [facility] [address] [place] [address] Capillary Glucose POCon 05-29 Glucose [Mass/Vol] 165 mg/dL High 55-99 [facility] Comment on above: Result Comment: Chai gutiérrez RN/ Performed By: #### 2 [id number] #### [facility] [address] [place] [address] Hep Func Panelon 06-07-2025 Albumin [Mass/Vol] 3.9 g/dL Normal 3.3-5.0 [facility] Comment on above: Performed By: #### 2 [id number] #### [facility] [address] [place] [address] Albumin/Globulin [Mass ratio] 1.3 {ratio} Normal 1.1-2.2 [facility] Comment on above: Performed By: #### 2 [id number] #### [facility] [address] [place] [address] Alk Phos 77 Int._Unit/L Normal 21-98 [facility] Comment on above: Performed By: #### 2 [id number] #### [facility] [address] [place] [address] ALT 13 Int._Unit/L Normal 6-46 [facility] Comment on above: Performed By: #### 2 [id number] #### [facility] [address] [place] [address] AST 13 Int._Unit/L Normal 5-43 [facility] Comment on above: Performed By: #### 2 [id number] #### [facility] [address] [place] [address] Bili Direct 0.1 mg/dL Normal 0.0-0.4 [facility] Comment on above: Performed By: #### 2 [id number] #### [facility] [address] [place] [address] Bili Indirect 0.2 mg/dL Normal 0.1-0.[address] [facility] Comment on above: Performed By: #### 2 [id number] #### [facility] [address] [place] [address] Bili Total 0.3 mg/dL Normal 0.0-1.1 [facility] Comment on above: Performed By: #### 2 [id number] #### [facility] [address] [place] [address] Globulin (S) [Mass/Vol] 3.1 g/dL Normal 1.4-4.0 [facility] Comment on above: Performed By: #### 2 [id number] #### [facility] [address] [place] [address] Protein [Mass/Vol] 7.0 g/dL Normal 6.0-7.8 [facility] Comment on above: Performed By: #### 2 [id number] #### [facility] [address] [place] [address] Lipase Levelon 06-07-2025 Lipase Lvl 28 unit/L Normal 13-58 [facility] Comment on above: Performed By: #### 2 [id number] #### [facility] [address] [place] [address] UA with Cult Rflxon 06-07-20 25 UA Spec Desc Clean Catch Normal [facility] Comment on above: Performed By: #### 4 [id number] #### [facility] [address] [place] [address] eGFRon 06-07-2025 eGFR 27 mL/min/1.73 m2 Low >=59 [facility] Comment on above: Performed By: #### 1 [id number] #### [facility] [address] [place] [address] Alanine aminotransferase [En zymatic activity/volume] in Serum or PlasmaOrdered By: Marcelle Simmons on 05-29-2025 ALT [Catalytic activity/Vol] 19 U/L Normal 7-52 [facility] Comment on above: Performed By: #### P TT, MG, CBC, PT, CMP #### [facility] [address] [place] [id number] [place] Albumin [Mass/volume] in Ser um or Plasma by Bromocresol green (BCG) dye binding methoOrdered By: Marcelle Simmons on 05-29-2025 Albumin BCG dye [Mass/Vol] 3.5 g/dL 3.5-5.7 [facility] Alkaline phosphatase [Enzyma tic activity/volume] in Serum or PlasmaOrdered By: Marcelle Simmons on 05-29-2025 ALP [Catalytic activity/Vol] 84 U/L Normal 34-104 [facility] Comment on above: Performed By: #### P TT, MG, CBC, PT, CMP #### [facility] [address] [place] [id number] [place] Appearance of UrineOrdered B y: Marcelle Simmons on 05-29-2025 Appearance (U) Clear Normal Clear [facility] Comment on above: Order Comment: Name Collection Type:: Clean-Voided Midstream Performed By: #### G LUWAN #### Point of Care testing , Aspartate aminotransferase [ Enzymatic activity/volume] in Serum or PlasmaOrdered By: Marcelle Simmons on 05-29-2025 AST [Catalytic activity/Vol] 20 U/L Normal 13-39 [facility] Comment on above: Performed By: #### P TT, MG, CBC, PT, CMP #### [facility] [address] [place] [address] [place] BNP ser/plasOrdered By: Jean Simmons on 05-29-2025 Natriuretic peptide B (Bld) [Mass/Vol] 72.0 pg/mL Normal 5-100 [facility] Comment on above: Result Comment: PERF ORMED BY: [facility] [address] [place] [address] PATHOLOGIST PRODUCTION CHECKER DARA ZEPEDA M.D. Performed By: #### P TT, MG, CBC, PT, CMP #### [facility] [address] [place] [address] [place] Bacteria [Presence] in Urine by AutomatedOrdered By: Marcelle Simmons on 05-29-2025 Bacteria Auto Ql (U) 1+ [HPF] High None Seen [facility] Basophils [#/volume] in Bloo d by Automated countOrdered By: Marcelle Simmons on 05-29-2025 Basophils (Bld) [#/Vol] 0.1 10*3/uL Normal 0.0-0.2 [facility] Comment on above: Result Comment: PERF ORMED BY: [facility] [address] [place] [address] PATHOLOGIST PRODUCTION CHECKER DARA ZEPEDA M.D. Performed By: #### P TT, MG, CBC, PT, CMP #### [facility] [address] [place] [address] [place] Basophils/100 leukocytes in Blood by Automated countOrdered By: Marcelle Simmons on 05-29-2025 Basophils/100 WBC (Bld) 0.9 % Normal . [facility] Comment on above: Performed By: #### P TT, MG, CBC, PT, CMP #### [facility] [address] Bilirubin Test strip Ql (U)O rdered By: Marcelle Simmons on 05-29-2025 Bilirubin Ql (U) Negative Negative [facility] Bilirubin.total [Mass/volume ] in Serum or PlasmaOrdered By: Marcelle Simmons on 05-29-2025 Bilirubin [Mass/Vol] 0.4 mg/dL Normal 0.3-1.0 [facility] Comment on above: Performed By: #### P TT, MG, CBC, PT, CMP #### [facility] [address] [place] [address] CT abdomen pelvis wo conon 0 05-29-2025 CT abdomen pelvis wo con [facility] [place] [address] [place] [address] CT Scan Report Signed Patient: Guerrero Ramos MR#: [id number] : 1980 Acct:[id number] Age/Sex: 44 / F ADM Date: 05/29/25 Loc: ER Room: Type: [facility] ER Attending Dr: Copies to: Marcelle Simmons MD Ordering Provider: Marcelle Simmons MD Date of Service: 05/29/25 CT/CT abdomen pelvis wo con: r/o stone, R flank pain CT ABDOMEN AND PELVIS WITHOUT INTRAVENOUS CONTRAST: CLINICAL HISTORY: Right-sided flank pain COMPARISON: 09/16/2024 TECHNIQUE: Spiral images were obtained through the abdomen and pelvis without intravenous contrast. This CT exam was performed using one or more following dose reduction techniques: Automated exposure control, adjustment of the mA and/or kV according to patient size, or use of iterative reconstruction technique. FINDINGS: Lung Bases: [Hypoventilatory changes greatest left lung base.] Organs:Gallbladder absent. Liver, spleen, right adrenal gland and pancreas are unremarkable. Left adrenal nodule likely adenoma. Lobular appearance of the kidneys. Left renal calculus, nonobstructive. No hydronephrosis. No definite ureterolithiasis.[ GI: Mild retained stool colon. No bowel obstruction. Appendix is normal.[ Pelvis:[Mild bladder distention. Uterus grossly unremarkable. No suspicious adnexal mass. Tubal ligation devices.] Peritoneum/Retroperitoneu m:No free air or free fluid. Mild to moderate aortic vascular disease.[ Abd wall/Bones:Interval ventral abdominal wall herniorrhaphy. No suspicious osseous lesion.[ CT/CT abdomen pelvis wo con IMPRESSION: Negative acute inflammatory process or bowel obstruction. Left-sided calculus, nonobstructive. No hydronephrosis or obstructive uropathy. Impression dictated by: Fabian Mike M.D. 05/29/2025 3:05 PM Dictation Location: [place] [address] Transcribed By: [facility] 05/29/25 1505 Dictated By: Fabian Mike MD 05/29/25 1501 Signed By: 05/29/25 1505 Normal [facility] Calcium [Mass/volume] in Ser um or PlasmaOrdered By: Marcelle Simmons on 05-29-2025 Calcium [Mass/Vol] 9.1 mg/dL Normal 8.6-10.3 [facility] Comment on above: Performed By: #### P TT, MG, CBC, PT, CMP #### [facility] [address] [place] [address] [place] Carbon dioxide, total [Moles /volume] in Serum or PlasmaOrdered By: Marcelle Simmons on 05-29-2025 CO2 [Moles/Vol] 25.1 mmol/L Normal 21.0-31.0 [facility] Comment on above: Performed By: #### P TT, MG, CBC, PT, CMP #### [facility] [address] [place] [address] [place] Chloride [Moles/volume] in S prabhjot or PlasmaOrdered By: Marcelle Simmons on 05-29-2025 Chloride [Moles/Vol] 107 mmol/L Normal 98-107 [facility] Comment on above: Performed By: #### P TT, MG, CBC, PT, CMP #### [facility] [address] [place] [address] [place] Choriogonadotropin.beta subu nit [Units/volume] in Serum or PlasmaOrdered By: Marcelle Simmons on 08-01-2025 HCG.beta subunit Qn Negative [facility] Color of Urine by AutoOrdere d By: Marcelle Simmons on 05-29-2025 Color (U) Light-yellow Normal Yellow [facility] Comment on above: Order Comment: Name Collection Type:: Clean-Voided Midstream Performed By: #### G DANE #### Point of Care testing , Complete Blood Count Auto Di ffon 05-29-2025 Mean Corpuscular HGB Conc 33.6 g/dL Normal 32.0-35.0 [facility] Comment on above: Performed By: #### P TT, MG, CBC, PT, CMP #### [address] Monocytes/100 WBC (Bld) 17.76 % Normal 0.00-20.00 [facility] Comment on above: Performed By: #### P TT, MG, CBC, PT, CMP #### [address] NRBC% 0.1 /100{WBC} Normal 0-0.5 [facility] Comment on above: Performed By: #### P TT, MG, CBC, PT, CMP #### [address] White Blood Count 6.4 [CFU]/mL Normal 3.8-11.6 [facility] Comment on above: Performed By: #### P TT, MG, CBC, PT, CMP #### [facility] [address] [place] [address] Comprehensive Metabolic Pane bobby 05-29-2025 Albumin [Mass/Vol] 3.5 g/dL Normal 3.5-5.7 [facility] Comment on above: Performed By: #### P TT, MG, CBC, PT, CMP #### [address] Creatinine Clr Calc Pharmacy 49.06 Normal [facility] Comment on above: Performed By: #### P TT, MG, CBC, PT, CMP #### [place] [address] [place] GFR/1.73 sq M.predicted MDRD (S/P/Bld) [Vol rate/Area] 32.164 mL/min/{1.73_m2} Normal [facility] Comment on above: Performed By: #### P TT, MG, CBC, PT, CMP #### [facility] [address] [place] [address] [place] Creatinine [Mass/volume] in Serum or PlasmaOrdered By: Marcelle Simmons on 05-29-2025 Creatinine [Mass/Vol] 1.93 mg/dL High 0.60-1.20 [facility] Comment on above: Performed By: #### P TT, MG, CBC, PT, CMP #### [facility] [address] Dipstick and Microscopicon 0 05-29-2025 Bacteria,Urine 1+ [HPF] Normal None Seen [facility] Comment on above: Order Comment: Name Collection Type:: Clean-Voided Midstream Performed By: #### G LULS #### Point of Care testing , Bilirubin,Urine Negative Normal Negative [facility] Comment on above: Order Comment: Name Collection Type:: Clean-Voided Midstream Performed By: #### G LULS #### Point of Care testing , Glucose Ql (U) Normal Normal Normal [facility] Comment on above: Order Comment: Name Collection Type:: Clean-Voided Midstream Performed By: #### G LULS #### Point of Care testing , Hyaline Casts,Urine None Normal 0-8 [facility] Comment on above: Order Comment: Name Collection Type:: Clean-Voided Midstream Result Comment: PERF ORMED BY: [place] [address] PATHOLOGIST PRODUCTION CHECKER DARA ZEPEDA M.D. Performed By: #### G LULS #### Point of Care testing , Nitrite,Urine Negative Normal Negative [facility] Comment on above: Order Comment: Name Collection Type:: Clean-Voided Midstream Performed By: #### G LULS #### Point of Care testing , Occult Blood,Urine Negative Normal Negative [facility] Comment on above: Order Comment: Name Collection Type:: Clean-Voided Midstream Result Comment: PERF ORMED BY: [place] [address] PATHOLOGIST PRODUCTION CHECKER DARA ZEPEDA M.D. Performed By: #### G LULS #### Point of Care testing , RBC,Urine 1-2 Normal 0-4 [facility] Comment on above: Order Comment: Name Collection Type:: Clean-Voided Midstream Performed By: #### G LULS #### Point of Care testing , Specificy [place],Urine 1.010 Normal 1.001-1.03 0 [facility] Comment on above: Order Comment: Name Collection Type:: Clean-Voided Midstream Performed By: #### G LULS #### Point of Care testing , Squamous Epithelial Cell,Urine 3-4 Normal 0-2 [facility] Comment on above: Order Comment: Name Collection Type:: Clean-Voided Midstream Performed By: #### G LULS #### Point of Care testing , Urobilinogen,Urine Normal Normal Normal [facility] Comment on above: Order Comment: Name Collection Type:: Clean-Voided Midstream Performed By: #### G LULS #### Point of Care testing , WBC,Urine 1-2 Normal 0-4 [facility] Comment on above: Order Comment: Name Collection Type:: Clean-Voided Midstream Performed By: #### G LULS #### Point of Care testing , ECG 12 lead ECGon 05-29-2025 ECG 12 lead ECG [facility] [place] [address] Electrocardiograph Report Signed Patient: Guerrero Ramos MR#: [id number] 102 : 1980 Acct:[id number] Age/Sex: 44 / F ADM Date: 05/29/25 Loc: ER Room: Type: [facility] ER Attending Dr: Ordering Provider: Marcelle Simmons MD Date of Service: 05/29/2511/22/1254 ECG/ECG 12 lead ECG: Back Pain/Injury Copies to: Test Reason : Blood Pressure : 134/77 mmHG Vent. Rate : 78 BPM Atrial Rate : 78 BPM P-R Int : 160 ms QRS Dur : 82 ms QT Int : 404 ms P-R-T Axes : 46 16 21 degrees QTcB Int : 460 ms Normal sinus rhythm Confirmed by Marcelle Simmons MD ([id number]) on 05/29/2025 6:21:45 PM Referred By: Electronically Signed By: Marcelle Simmons MD Transcribed By: MUS Signed By Marcelle Simmons MD 11/22 1821 Normal [facility] Eosinophils [#/volume] in Bl ood by Automated countOrdered By: Marcelle Simmons on 05-29-2025 Eosinophils (Bld) [#/Vol] 0.3 10*3/uL Normal 0.0-0.45 [facility] Comment on above: Performed By: #### P TT, MG, CBC, PT, CMP #### [facility] [address] [place] [address] Eosinophils/100 leukocytes i n Blood by Automated countOrdered By: Marcelle Simmons on 05-29-2025 Eosinophils/100 WBC (Bld) 4.2 % Normal . [facility] Comment on above: Performed By: #### P TT, MG, CBC, PT, CMP #### [facility] [address] Epithelial cells.squamous [# /area] in Urine sediment by Automated countOrdered By: Marcelle Simmons on 05-29-2025 Epithelial cells.squamous Auto (Urine sed) [#/Area] 3-4 [HPF] High 0-2 [facility] Erythrocyte distribution wid th [Ratio] by Automated countOrdered By: Marcelle Simmons on 05-29-2025 Erythrocyte distribution width (RBC) [Ratio] 17.3 % High 11.9-15.3 [facility] Comment on above: Performed By: #### P TT, MG, CBC, PT, CMP #### [facility] [address] [place] [address] [place] Erythrocytes [#/area] in Uri ne sediment by Automated countOrdered By: Marcelle Simmons on 05-29-2025 RBC Auto (Urine sed) [#/Area] 1-2 [HPF] 0-4 [facility] Erythrocytes [#/volume] in B lood by Automated countOrdered By: Marcelle Simmons on 05-29-2025 RBC (Bld) [#/Vol] 4.60 10*6/uL Normal 3.60-5.00 [facility] Comment on above: Performed By: #### P TT, MG, CBC, PT, CMP #### [facility] [address] Glucose [Mass/volume] in Ser um or PlasmaOrdered By: Marcelle Simmons on 05-29-2025 Glucose [Mass/Vol] 96 mg/dL Normal 70-100 [facility] Comment on above: ADA recommended refe rence rangeRandom Glucose Reference Range is dependent on time and content of last meal. Glucose of more than 200 mg/dL in a nonstressed, ambulatory subject supports the diagnosis of Diabetes Mellitus. Result Comment: [place] Glucose Reference Range is dependent on time and content of last meal. Glucose of more than 200 mg/dL in a nonstressed, ambulatory subject supports the diagnosis of Diabetes Mellitus. ADA recommended reference range Performed By: #### P TT, MG, CBC, PT, CMP #### [facility] [address] Glucose [Mass/volume] in Uri ne by Test stripOrdered By: Marcelle Simmons on 05-29-2025 Glucose Test strip (U) [Mass/Vol] Normal mg/dL Normal [facility] HCG,Qualitative Serumon HCG,Qualitative Serum Negative Normal [facility] Comment on above: Result Comment: PERF ORMED BY: [facility] [address] [place] [address] PATHOLOGIST PRODUCTION CHECKER DARA ZEPEDA M.D. Performed By: #### P TT, MG, CBC, PT, CMP #### [facility] [address] Hematocrit [Volume Fraction] of Blood by Automated countOrdered By: Marcelle Simmons on 05-29-2025 Hematocrit (Bld) [Volume fraction] 33.3 % Low 34.0-46.4 [facility] Comment on above: Performed By: #### P TT, MG, CBC, PT, CMP #### [facility] [address] [place] [address] [place] Hemoglobin Test strip Ql (U) Ordered By: Marcelle Simmons on 05-29-2025 Hemoglobin Ql (U) Negative Negative [facility] Hemoglobin [Mass/volume] in BloodOrdered By: Marcelle Simmons on 05-29-2025 Hemoglobin (Bld) [Mass/Vol] 11.2 g/dL Low 11.8-15.4 [facility] Comment on above: Performed By: #### P TT, MG, CBC, PT, CMP #### [facility] [address] [place] [address] [place] Hyaline casts [#/area] in Ur ine sediment by Automated countOrdered By: Marcelle Simmons on 05-29-2025 Hyaline casts Auto (Urine sed) [#/Area] None [LPF] 0-8 [facility] Ketones [Presence] in Urine by Test stripOrdered By: Marcelle Simmons on 05-29-2025 Ketones Ql (U) Negative Normal Negative [facility] Comment on above: Order Comment: Name Collection Type:: Clean-Voided Midstream Performed By: #### G DANE #### Point of Care testing , Leukocyte esterase [Presence ] in Urine by Test stripOrdered By: Marcelle Simmons on 05-29-2025 Leukocyte esterase Test strip Ql (U) Negative Normal Negative [facility] Comment on above: Order Comment: Name Collection Type:: Clean-Voided Midstream Performed By: #### G LUWAN #### Point of Care testing , Leukocytes [#/area] in Urine sediment by Automated countOrdered By: Marcelle Simmons on 05-29-2025 WBC Auto (Urine sed) [#/Area] 1-2 [HPF] 0-4 [facility] Leukocytes [#/volume] correc macros for nucleated erythrocytes in Blood by Automated counOrdered By: Marcelle Simmons on 05-29-2025 WBC corrected for nucl RBC Auto (Bld) [#/Vol] 6.4 10*3/uL 3.8-11.6 [facility] Leukocytes [#/volume] in Blo od by Automated countOrdered By: Marcelle Simmons on 05-29-2025 WBC (Bld) [#/Vol] 6.4 10*3/uL Normal 3.8-11.6 [facility] Comment on above: Performed By: #### P TT, MG, CBC, PT, CMP #### [address] Lymphocytes [#/volume] in Bl ood by Automated countOrdered By: Marcelle Simmons on 05-29-2025 Lymphocytes (Bld) [#/Vol] 1.5 10*3/uL Normal 1.00-4.8 [facility] Comment on above: Performed By: #### P TT, MG, CBC, PT, CMP #### [address] Lymphocytes/100 leukocytes i n Blood by Automated countOrdered By: Marcelle Simmons on 05-29-2025 Lymphocytes/100 WBC (Bld) 23.0 % Normal . [facility] Comment on above: Performed By: #### P TT, MG, CBC, PT, CMP #### [address] MCH [Entitic mass] by Automa marcos countOrdered By: Marcelle Simmons on 05-29-2025 MCH (RBC) [Entitic mass] 24.3 pg Low 24.7-34.3 [facility] Comment on above: Performed By: #### P TT, MG, CBC, PT, CMP #### [address] MCHC Auto (RBC) [Mass/Vol]Or dered By: Marcelle Simmons on 05-29-2025 MCHC (RBC) [Mass/Vol] 33.6 g/dL 32.0-35.0 [facility] MCV [Entitic volume] by Auto mated countOrdered By: Marcelle Simmons on 05-29-2025 MCV (RBC) [Entitic vol] 72.5 fL Low 80-100 [facility] Comment on above: Performed By: #### P TT, MG, CBC, PT, CMP #### [address] Monocyte distribution width [Entitic volume] in Blood by AutomatedOrdered By: Marcelle Simmons on 05-29-2025 Monocyte distribution width Auto (Bld) [Entitic vol] 17.76 % 0.00-20.00 [facility] Monocytes [#/volume] in Bloo d by Automated countOrdered By: Marcelle Simmons on 05-29-2025 Monocytes (Bld) [#/Vol] 0.3 10*3/uL Normal 0.0-0.8 [facility] Comment on above: Performed By: #### P TT, MG, CBC, PT, CMP #### [address] Monocytes/100 leukocytes in Blood by Automated countOrdered By: Marcelle Simmons on 05-29-2025 Monocytes/100 WBC (Bld) 5.4 % Normal . [facility] Comment on above: Performed By: #### P TT, MG, CBC, PT, CMP #### [address] Neutrophils [#/volume] in Bl ood by Automated countOrdered By: Marcelle Simmons on 05-29-2025 Neutrophils (Bld) [#/Vol] 4.3 10*3/uL Normal 1.8-7.7 [facility] Comment on above: Performed By: #### P TT, MG, CBC, PT, CMP #### [address] Neutrophils/100 leukocytes i n Blood by Automated countOrdered By: Marcelle Simmons on 05-29-2025 Neutrophils/100 WBC (Bld) 66.5 % Normal . [facility] Comment on above: Performed By: #### P TT, MG, CBC, PT, CMP #### [address] Nitrite Test strip Ql (U)Ord ered By: Marcelle Simmons on 05-29-2025 Nitrite Ql (U) Negative Negative [facility] No Panel InformationOrdered By: Marcelle Simmons on 05-29-2025 Estimated GFR (CKD-EPI) 32.164 mL/Min [facility] Creatinine Clearance (Chem 49.06 [facility] Nucleated erythrocytes [Pres ence] in Blood by Automated countOrdered By: Marcelle Simmons on 05-29-2025 Nucleated RBC Auto Ql (Bld) 0.1 /100{WBC} 0-0.5 [facility] Platelet mean volume [Entiti c volume] in Blood by Automated countOrdered By: Marcelle Simmons on 05-29-2025 Platelet mean volume (Bld) [Entitic vol] 6.9 fL Normal 6.3-10.7 [facility] Comment on above: Performed By: #### P TT, MG, CBC, PT, CMP #### [facility] [address] [place] [address] [place] Platelets [#/volume] in Bloo d by Automated countOrdered By: Marcelle Simmons on 05-29-2025 Platelets (Bld) [#/Vol] 241 10*3/uL Normal 150-450 [facility] Comment on above: Performed By: #### P TT, MG, CBC, PT, CMP #### [facility] [address] [place] [address] [place] Potassium [Moles/volume] in Serum or PlasmaOrdered By: Marcelle Simmons on 05-29-2025 Potassium [Moles/Vol] 4.1 mmol/L Normal 3.5-5.1 [facility] Comment on above: Performed By: #### P TT, MG, CBC, PT, CMP #### [facility] [address] [place] [address] [place] Protein [Mass/volume] in Ser um or PlasmaOrdered By: Marcelle Simmons on 05-29-2025 Protein [Mass/Vol] 6.7 g/dL Normal 6.4-8.9 [facility] Comment on above: Performed By: #### P TT, MG, CBC, PT, CMP #### [facility] [address] [place] [address] [place] Protein [Mass/volume] in Uri ne by Test stripOrdered By: Marcelle Simmons on 05-29-2025 Protein (U) [Mass/Vol] 100 mg/dL Normal Negative [facility] Comment on above: Order Comment: Name Collection Type:: Clean-Voided Midstream Performed By: #### G LULS #### Point of Care testing , Serum globulin measurement b y calculation (mass/volume)Ordered By: Marcelel Simmons on 05-29-2025 Globulin (S) [Mass/Vol] 3.2 g/dL [facility] Comment on above: Performed By: #### P TT, MG, CBC, PT, CMP #### [facility] [address] [place] [address] Serum or plasma albumin/glob ulin mass ratioOrdered By: Marcelle Simmons on 05-29-2025 Albumin/Globulin [Mass ratio] 1.1 {ratio} [facility] Comment on above: Performed By: #### P TT, MG, CBC, PT, CMP #### [facility] [address] [place] [address] Serum or plasma anion gap de terminationOrdered By: Marcelle Simmons on 05-29-2025 Anion gap [Moles/Vol] 10.0 mmol/L Normal 6.0-15.0 [facility] Comment on above: Performed By: #### P TT, MG, CBC, PT, CMP #### [facility] [address] [place] [address] Sodium [Moles/volume] in Ser um or PlasmaOrdered By: Marcelle Simmons on 05-29-2025 Sodium [Moles/Vol] 138 mmol/L Normal 136-145 [facility] Comment on above: Performed By: #### P TT, MG, CBC, PT, CMP #### [facility] [address] [place] [address] Specific gravity Test strip (U) [Rel density]Ordered By: Marcelle Simmons on 05-29-2025 Specific gravity (U) [Rel density] 1.010 1.001-1.03 0 [facility] Stool Occult Blood (Guaiac)o n 05-29-2025 Stool Occult Blood (Guaiac) Occult Blood Negative for Occult Blood by Guaiac Methodology ---- Reference range = Negative PERFORMED BY: [place] [address] PATHOLOGIST PRODUCTION CHECKER DARA ZEPEDA M.D. Normal [facility] Comment on above: Performed By: #### P TT, MG, CBC, PT, CMP #### [facility] [address] [place] [address] Stool gastrointestinal hemog lobin detectionOrdered By: Marcelle Simmons on 05-29-2025 Hemoglobin.gastrointes tinal Ql (Stl) [facility] Troponin I High Sensitivityo n 05-29-2025 Troponin I High Sensitivity <3 Normal 0-15 [facility] Comment on above: Result Comment: The Troponin units of report have been changed to meet the Chest Pain Accreditation requirement, element EC5.M1l2. Troponin units are changed from pg/ml to ng/L. Also, the decimal is removed and results are in whole numbers. PERFORMED BY: [place] [address] PATHOLOGIST PRODUCTION CHECKER DARA ZEPEDA M.D. Performed By: #### P TT, MG, CBC, PT, CMP #### [address] Troponin I.cardiac [Mass/vol ume] in Serum or Plasma by Detection limit <= 0.01 ng/mLOrdered By: Marcelle Simmons on 05-29-2025 Troponin I.cardiac DL <= 0.01 ng/mL [Mass/Vol] < 3 ng/L 0-15 [facility] Comment on above: The Troponin units o f report have been changed to meet the Chest Pain Accreditation requirement, element EC5.M1l2. Troponin units are changed from pg/ml to ng/L. Also, the decimal is removed and results are in whole numbers. Urea nitrogen [Mass/volume] in Serum or PlasmaOrdered By: Marcelle Simmons on 05-29-2025 Urea nitrogen [Mass/Vol] 23 mg/dL Normal 7-25 [facility] Comment on above: Performed By: #### P TT, MG, CBC, PT, CMP #### [address] Urobilinogen Test strip (U) [Mass/Vol]Ordered By: Marcelle Simmons on 05-29-2025 Urobilinogen (U) [Mass/Vol] Normal mg/dL Normal [facility] X-ray reportOrdered By: Jarrod Mike on 05-29-2025 Study report [facility] [place] [address] XRay Report Signed Patient: Guerrero Ramos MR#: [id number] : 1980 Acct:[id number] Age/Sex: 44 / F ADM Date: 5 Loc: ER Room: Type: [facility] ER Attending Dr: Copies to: Marcelle Simmons MD~ Ordering Provider: Marcelle Simmons MD Date of Service: 05/29/25 XR/XR chest 2V*: Back Pain/Injury PA AND LATERAL CHEST: CLINICAL HISTORY: Back pain status post injury COMPARISON: 02/14/2025 FINDINGS: Unremarkable cardiomediastinal. Lungs clear. No effusion or pneumothorax. XR/XR chest 2V* IMPRESSION: NO ACUTE CARDIOPULMONARY ABNORMALITY. Impression dictated by: Fabian Mike M.D. 05/29/2025 3:17 PM Dictation Location: [place] [address] Transcribed By: [facility] 05/29/25 151 Dictated By: Fabian Mike MD 05/29/25 151 Signed By: 05/29/25 [facility] Work Phone: XR chest 2V*on 05-29-2025 XR chest 2V* [facility] [place] [address] XRay Report Signed Patient: Guerrero Ramos MR#: [id number] 102 : 1980 Acct:[id number] Age/Sex: 44 / F ADM Date: 05/29/25 Loc: ER Room: Type: [facility] ER Attending Dr: Copies to: Marcelle Simmons MD Ordering Provider: Marcelle Simmons MD Date of Service: 05/29/25 XR/XR chest 2V*: Back Pain/Injury PA AND LATERAL CHEST: CLINICAL HISTORY: Back pain status post injury COMPARISON: 02/14/2025 FINDINGS: Unremarkable cardiomediastinal. Lungs clear. No effusion or pneumothorax. XR/XR chest 2V* IMPRESSION: NO ACUTE CARDIOPULMONARY ABNORMALITY. Impression dictated by: Fabian Mike M.D. 05/29/2025 3:17 PM Dictation Location: [facility]- Transcribed By: TREMAYNE 05/29/251516 Dictated By: Fabian Mike MD 05/29/251515 Signed By: 05/29/251516 Normal [facility] pH of Urine by Test stripOrd ered By: Marcelle Simmons on 05-29-2025 pH (U) 6.0 [pH] Normal 5.0-9.0 [facility] Comment on above: Order Comment: Name Collection Type:: Clean-Voided Midstream Performed By: #### G LULS #### Point of Care testing , Glucose Poct Glucometerson 0 04-29-2025 Commemt1 Glu2: Cleaned Meter Normal [facility] Comment on above: Result Comment: PERF ORMED BY: [place] [address] PATHOLOGIST PRODUCTION CHECKER DARA ZEPEDA M.D. Performed By: #### P TT, MG, CBC, PT, CMP #### [facility] [address] [place] [address] Glucose [Mass/Vol] 153 mg/dL Normal [facility] Comment on above: Result Comment: [place] Glucose Reference Range is dependent on time and content of last meal. Glucose of more than 200 mg/dL in a nonstressed, ambulatory subject supports the diagnosis of Diabetes Mellitus. Performed By: #### P TT, MG, CBC, PT, CMP #### [facility] [address] [place] [address] Glucose [Mass/Vol] 116 mg/dL Normal [facility] Comment on above: Result Comment: [place] Glucose Reference Range is dependent on time and content of last meal. Glucose of more than 200 mg/dL in a nonstressed, ambulatory subject supports the diagnosis of Diabetes Mellitus. PERFORMED BY: [place] [address] PATHOLOGIST PRODUCTION CHECKER DARA ZEPEDA M.D. Performed By: #### P TT, MG, CBC, PT, CMP #### [facility] [address] [place] [address] HCG,Urineon 04-29-2025 Beta HCG ( test) Ql (U) Negative Normal [facility] Comment on above: Result Comment: PERF ORMED BY: [place] [address] PATHOLOGIST PRODUCTION CHECKER DARA ZEPEDA M.D. Performed By: #### P TT, MG, CBC, PT, CMP #### [address] Basic Metabolic Panelon 03-29 GFR/1.73 sq M.predicted MDRD (S/P/Bld) [Vol rate/Area] 21.215 mL/min/{1.73_m2} Normal [facility] Comment on above: Performed By: #### G LULS #### Point of Care testing , Basophils [#/volume] in Bloo d by Automated countOrdered By: Vega Neville on 04-15-2025 Basophils (Bld) [#/Vol] 0.1 10*3/uL Normal 0.0-0.2 [facility] Comment on above: Result Comment: PERF ORMED BY: [place] [address] PATHOLOGIST PRODUCTION CHECKER DARA ZEPEDA M.D. Performed By: #### G LULS #### Point of Care testing , Basophils/100 leukocytes in Blood by Automated countOrdered By: Vega Neville on 04-15-2025 Basophils/100 WBC (Bld) 1.1 % Normal . [facility] Comment on above: Performed By: #### G LULS #### Point of Care testing , Calcium [Mass/volume] in Ser um or PlasmaOrdered By: Vega Neville on 04-15-2025 Calcium [Mass/Vol] 9.4 mg/dL Normal 8.6-10.3 [facility] Comment on above: Result Comment: PERF ORMED BY: [facility] [place] [address] PATHOLOGIST PRODUCTION CHECKER DARA ZEPEDA M.D. Performed By: #### G LULS #### Point of Care testing , Carbon dioxide, total [Moles /volume] in Serum or PlasmaOrdered By: Vega Neville on 04-15-2025 CO2 [Moles/Vol] 25.8 mmol/L Normal 21.0-31.0 [facility] Comment on above: Performed By: #### G LULS #### Point of Care testing , Chloride [Moles/volume] in S prabhjot or PlasmaOrdered By: Vega Neville on 04-15-2025 Chloride [Moles/Vol] 109 mmol/L High 98-107 [facility] Comment on above: Performed By: #### G LULS #### Point of Care testing , Complete Blood Count Auto Di ffon 04-15-2025 Mean Corpuscular HGB Conc 32.6 g/dL Normal 32.0-35.0 [facility] Comment on above: Performed By: #### G LULS #### Point of Care testing , NRBC% 0.1 /100{WBC} Normal 0-0.5 [facility] Comment on above: Performed By: #### G LULS #### Point of Care testing , White Blood Count 5.2 [CFU]/mL Normal 3.8-11.6 [facility] Comment on above: Performed By: #### G LULS #### Point of Care testing , Creatinine [Mass/volume] in Serum or PlasmaOrdered By: Vega Neville on 04-15-2025 Creatinine [Mass/Vol] 2.73 mg/dL High 0.60-1.20 [facility] Comment on above: Performed By: #### G LULS #### Point of Care testing , Eosinophils [#/volume] in Bl ood by Automated countOrdered By: Vega Neville on 04-15-2025 Eosinophils (Bld) [#/Vol] 0.3 10*3/uL Normal 0.0-0.45 [facility] Comment on above: Performed By: #### G LULS #### Point of Care testing , Eosinophils/100 leukocytes i n Blood by Automated countOrdered By: Vega Neville on 04-15-2025 Eosinophils/100 WBC (Bld) 5.1 % Normal . [facility] Comment on above: Performed By: #### G LULS #### Point of Care testing , Erythrocyte distribution wid th [Ratio] by Automated countOrdered By: Vega Neville on 04-15-2025 Erythrocyte distribution width (RBC) [Ratio] 16.9 % High 11.9-15.3 [facility] Comment on above: Performed By: #### G LULS #### Point of Care testing , Erythrocytes [#/volume] in B lood by Automated countOrdered By: Vega Neville on 04-15-2025 RBC (Bld) [#/Vol] 5.12 10*6/uL High 3.60-5.00 [facility] Comment on above: Performed By: #### G LULS #### Point of Care testing , Glucose [Mass/volume] in Ser um or PlasmaOrdered By: Vega Neville on 04-15-2025 Glucose [Mass/Vol] 95 mg/dL Normal 70-100 [facility] Comment on above: ADA recommended refe rence rangeRandom Glucose Reference Range is dependent on time and content of last meal. Glucose of more than 200 mg/dL in a nonstressed, ambulatory subject supports the diagnosis of Diabetes Mellitus. Result Comment: [place] Glucose Reference Range is dependent on time and content of last meal. Glucose of more than 200 mg/dL in a nonstressed, ambulatory subject supports the diagnosis of Diabetes Mellitus. ADA recommended reference range Performed By: #### G LULS #### Point of Care testing , Hematocrit [Volume Fraction] of Blood by Automated countOrdered By: Vega Neville on 04-15-2025 Hematocrit (Bld) [Volume fraction] 37.6 % Normal 34.0-46.4 [facility] Comment on above: Performed By: #### G DANE #### Point of Care testing , Hemoglobin [Mass/volume] in BloodOrdered By: Vega Neville on 04-15-2025 Hemoglobin (Bld) [Mass/Vol] 12.3 g/dL Normal 11.8-15.4 [facility] Comment on above: Performed By: #### G HAROLDOLS #### Point of Care testing , Leukocytes [#/volume] correc marcos for nucleated erythrocytes in Blood by Automated counOrdered By: Vega Neville on 04-15-2025 WBC corrected for nucl RBC Auto (Bld) [#/Vol] 5.2 10*3/uL 3.8-11.6 [facility] Leukocytes [#/volume] in Blo od by Automated countOrdered By: Vega Neville on 04-15-2025 WBC (Bld) [#/Vol] 5.2 10*3/uL Normal 3.8-11.6 [facility] Comment on above: Performed By: #### G DANE #### Point of Care testing , Lymphocytes [#/volume] in Bl ood by Automated countOrdered By: Vega Neville on 04-15-2025 Lymphocytes (Bld) [#/Vol] 1.3 10*3/uL Normal 1.00-4.8 [facility] Comment on above: Performed By: #### G HAROLDOLS #### Point of Care testing , Lymphocytes/100 leukocytes i n Blood by Automated countOrdered By: Vega Neville on 04-15-2025 Lymphocytes/100 WBC (Bld) 25.0 % Normal . [facility] Comment on above: Performed By: #### G HAROLDOLS #### Point of Care testing , MCH [Entitic mass] by Automa marcos countOrdered By: Vega Neville on 04-15-2025 MCH (RBC) [Entitic mass] 24.0 pg Low 24.7-34.3 [facility] Comment on above: Performed By: #### G LULS #### Point of Care testing , MCHC Auto (RBC) [Mass/Vol]Or dered By: Vega Neville on 04-15-2025 MCHC (RBC) [Mass/Vol] 32.6 g/dL 32.0-35.0 [facility] MCV [Entitic volume] by Auto mated countOrdered By: Vega Neville on 04-15-2025 MCV (RBC) [Entitic vol] 73.5 fL Low 80-100 [facility] Comment on above: Performed By: #### G LULS #### Point of Care testing , Monocytes [#/volume] in Bloo d by Automated countOrdered By: Vega Neville on 04-15-2025 Monocytes (Bld) [#/Vol] 0.3 10*3/uL Normal 0.0-0.8 [facility] Comment on above: Performed By: #### G LULS #### Point of Care testing , Monocytes/100 leukocytes in Blood by Automated countOrdered By: Vega Neville on 04-15-2025 Monocytes/100 WBC (Bld) 5.3 % Normal . [facility] Comment on above: Performed By: #### G LULS #### Point of Care testing , Neutrophils [#/volume] in Bl ood by Automated countOrdered By: Vega Neville on 04-15-2025 Neutrophils (Bld) [#/Vol] 3.3 10*3/uL Normal 1.8-7.7 [facility] Comment on above: Performed By: #### G LULS #### Point of Care testing , Neutrophils/100 leukocytes i n Blood by Automated countOrdered By: Vega Neville on 04-15-2025 Neutrophils/100 WBC (Bld) 63.5 % Normal . [facility] Comment on above: Performed By: #### G LULS #### Point of Care testing , No Panel InformationOrdered By: Vega Neville on 04-15-2025 Estimated GFR (CKD-EPI) 21.215 mL/Min [facility] Creatinine Clearance (Chem N/A [facility] Nucleated erythrocytes [Pres ence] in Blood by Automated countOrdered By: Vega Neville on 04-15-2025 Nucleated RBC Auto Ql (Bld) 0.1 /100{WBC} 0-0.5 [facility] Platelet mean volume [Entiti c volume] in Blood by Automated countOrdered By: Vega Neville on 04-15-2025 Platelet mean volume (Bld) [Entitic vol] 7.0 fL Normal 6.3-10.7 [facility] Comment on above: Performed By: #### G LULS #### Point of Care testing , Platelets [#/volume] in Bloo d by Automated countOrdered By: Vega Neville on 04-15-2025 Platelets (Bld) [#/Vol] 249 10*3/uL Normal 150-450 [facility] Comment on above: Performed By: #### G LULS #### Point of Care testing , Potassium [Moles/volume] in Serum or PlasmaOrdered By: Vega Neville on 04-15-2025 Potassium [Moles/Vol] 4.6 mmol/L Normal 3.5-5.1 [facility] Comment on above: Performed By: #### G LULS #### Point of Care testing , Serum or plasma anion gap de terminationOrdered By: Vega Neville on 04-15-2025 Anion gap [Moles/Vol] 9.8 mmol/L Normal 6.0-15.0 [facility] Comment on above: Performed By: #### G LULS #### Point of Care testing , Sodium [Moles/volume] in Ser um or PlasmaOrdered By: Vega Neville on 04-15-2025 Sodium [Moles/Vol] 140 mmol/L Normal 136-145 [facility] Comment on above: Performed By: #### G LULS #### Point of Care testing , Urea nitrogen [Mass/volume] in Serum or PlasmaOrdered By: Vega Neville on 04-15-2025 Urea nitrogen [Mass/Vol] 39 mg/dL High 7-25 [facility] Comment on above: Performed By: #### G DANE #### Point of Care testing , Venus 04-08-2025 CNPVictor Hugo Telephone (TXCTGL) ----- GUERRERO RAMOS ([id number]) 1980 F Date Time Provider Department 04/08[facility] During your visit today, we recorded the following information about you: Isis Coburn 04/08/2025 4:09 PM Signed Patient call back to get started with the kidney intake, however patients BMI is 51.4. Pt did explain that her BMI was to high for the [facility] program. Pt understood. Referral closed. Isis Allergies As of Date: 04/08/2025 Noted Allergy Reaction PENICILLINS 04/10/2024 2 - Rash Date Reviewed: 02/13/2025 Reviewed by: Jian Snell LPN - Fully Assessed Reason for Visit: Referral - Kidney Txp [[id number]] Prescriptions as of 04/08/2025 - liraglutide (VICTOZA) 0.6 mg/ 0.1 ml subcutaneous pen injector Inject 1.8 mg subcutaneously once daily. - traZODone (DESYREL) 100 mg tablet Take 100 mg by mouth two times a day. - ALPRAZolam (XANAX) 0.25 mg tablet Take 0.25 mg by mouth at bedtime as needed. - levothyroxine 75 mcg cap Take 75 mcg by mouth daily before breakfast. - meclizine (ANTIVERT) 25 mg tab Take 25 mg by mouth three times a day. - amLODIPine (NORVASC) 2.5 mg tablet Take by mouth once daily. - ondansetron HCl (ZOFRAN ORAL) Take by mouth as needed. - insulin glargine,hum.rec.anlog (TOUJEO MAX U-300 SOLOSTAR SUBCUTANEOUS) Inject subcutaneously. - tolterodine (DETROL) 2 mg tablet Take 2 mg by mouth two times a day. - rosuvastatin (CRESTOR) 20 mg tablet Take 20 mg by mouth once daily. - sertraline (ZOLOFT) 50 mg tablet Take 50 mg by mouth once daily. - ergocalciferol 50,000 unit capsule (VITAMIN D2, DRISDOL) Take 50,000 Units by mouth one time a week. Problem List As Of Date 04/08/2025 Noted Resolved Class 3 severe obesity due to excess calories w*05/26/2024 Snoring [R06.83] 05/26/2024 HTN (hypertension) [I10] HLD (hyperlipidemia) [E78.5] CKD (chronic kidney disease) [N18.9] Hypothyroidism [E03.9] Hernia, incisional [K43.2] 01/12/2025 History of ventral hernia [Z87.19] 01/13/2025 S/P repair of ventral hernia [Z98.890, Z87.19] 01/14/2025 Acute post-operative pain [G89.18] 01/14/2025 Electrolyte imbalance [E87.8] 01/14/2025 Morbid obesity with BMI of 50.0-59.9, adult (HC*01/14/2025 Encounter Status:Closed by ISIS COBURN on 04/08/25 [facility] Telephone (TXCTGL) ----- GUERRERO RAMOS ([id number]) 1980 F Date Time Provider Department 04/08/25 KIDNEY TXP COORDINATORS [facility] During your visit today, we recorded the following information about you: Isis Coburn 04/08/2025 3:57 PM Signed I called patient to start the kidney referral intake process. I left a voicemail for patient to call us back. Isis Allergies As of Date: 04/08/2025 Noted Allergy Reaction PENICILLINS 04/10/2024 2 - Rash Date Reviewed: 02/13/2025 Reviewed by: Jian Snell LPN - Fully Assessed Reason for Visit: Referral - Kidney Txp [[id number]] Prescriptions as of 04/08/2025 - liraglutide (VICTOZA) 0.6 mg/ 0.1 ml subcutaneous pen injector Inject 1.8 mg subcutaneously once daily. - traZODone (DESYREL) 100 mg tablet Take 100 mg by mouth two times a day. - ALPRAZolam (XANAX) 0.25 mg tablet Take 0.25 mg by mouth at bedtime as needed. - levothyroxine 75 mcg cap Take 75 mcg by mouth daily before breakfast. - meclizine (ANTIVERT) 25 mg tab Take 25 mg by mouth three times a day. - amLODIPine (NORVASC) 2.5 mg tablet Take by mouth once daily. - ondansetron HCl (ZOFRAN ORAL) Take by mouth as needed. - insulin glargine,hum.rec.anlog (TOUJEO MAX U-300 SOLOSTAR SUBCUTANEOUS) Inject subcutaneously. - tolterodine (DETROL) 2 mg tablet Take 2 mg by mouth two times a day. - rosuvastatin (CRESTOR) 20 mg tablet Take 20 mg by mouth once daily. - sertraline (ZOLOFT) 50 mg tablet Take 50 mg by mouth once daily. - ergocalciferol 50,000 unit capsule (VITAMIN D2, DRISDOL) Take 50,000 Units by mouth one time a week. Problem List As Of Date 04/08/2025 Noted Resolved Class 3 severe obesity due to excess calories w*05/26/2024 Snoring [R06.83] 05/26/2024 HTN (hypertension) [I10] HLD (hyperlipidemia) [E78.5] CKD (chronic kidney disease) [N18.9] Hypothyroidism [E03.9] Hernia, incisional [K43.2] 01/12/2025 History of ventral hernia [Z87.19] 01/13/2025 S/P repair of ventral hernia [Z98.890, Z87.19] 01/14/2025 Acute post-operative pain [G89.18] 01/14/2025 Electrolyte imbalance [E87.8] 01/14/2025 Morbid obesity with BMI of 50.0-59.9, adult (HC*01/14/2025 Encounter Status:Closed by [employer] COBURN on 04/08/25 Normal [facility] POCT Hemoglobin A1con 2024 HbA1c (Bld) [Mass fraction] 6 % 4 - 7 % [facility] US map hemodial access BILon 03-27-2025 US map hemodial access LIANET [facility] Main [place] [address] [place] [address] Ultrasound Report Signed Patient: Guerrero Ramos MR#: [id number] : 1980 Acct:[id number] Age/Sex: 44 / F ADM Date: 03/26/25 Loc: Room: Type: [facility] Attending Dr: Allison Melgar MD Ordering Provider: Allison Melgar MD Date of Service: 03/26/25 US/US map hemodial access LIANET: N18.4 - Chronic kidney disease, stage 4 (severe) Copies to: Allison Melgar MD Bilateral upper cavity vein mapping examination Indication for study: Renal failure with need for dialysis access PROCEDURE: B-mode imaging is used to to interrogate the venous anatomy of both upper extremities. In the patient's right arm the forearm basilic and cephalic veins are less than 2 mm. The upper arm cephalic vein is 3 mm throughout its course and potentially usable for creation of a fistula. The upper arm basilic vein is 3 to 4 mm and also potential usable for fistula. Brachial artery is small at just under 4 mm. The radial artery is less than 2 mm. The axillary and subclavian veins are patent. In the patient's left upper extremity again the forearm vessels are less than 2 mm. Left upper arm cephalic vein is fairly good throughout its course at 3 mm. The first portion of the left upper extremity basilic vein is smaller but distally becomes 3 to 4 mm. Brachial artery is again quite small at 3 mm and the radial artery is less than 2 mm. The subclavian and axillary veins are patent. US/US map hemodial access LIANET IMPRESSION: Options for creation of autologous fistula in this patient include the right basilic vein or upper arm cephalic vein. These would require an antecubital level anastomosis. The left upper extremity cephalic vein is somewhat better particularly at the antecubital space and is probably the best conduit for creation of a fistula. Left upper arm basilic vein is potential usable but smaller proximally. Impression dictated by: Vega Neville M.D. 03/27/2025 10:35 AM Dictation Location: [place] [address] Tech: Marcelle Cardozo Transcribed By: TREMAYNE 03/27/25 1035 Dictated By: Vega Neville MD 03/27/25 1033 Signed By: 03/27/25 1035 Normal [facility] Albumin [Mass/volume] in Ser um or Plasmaon 03-04-2025 Albumin [Mass/Vol] Albumin [Mass/volume ] in Serum or Plasma 2.9-4.4 [facility] Albumin [Mass/Vol] 3.6 g/dL 2.9-4.4 [facility] Erythrocyte distribution wid th Auto (RBC) [Ratio]on 03-04-2025 Erythrocyte distribution width (RBC) [Ratio] Erythrocyte distribution width [Ratio] by Automated count High 11.0-15.0 [facility] Erythrocyte distribution width (RBC) [Ratio] 15.1 % High 11.0-15.0 [facility] Estimated glomerular filtrat ion rate (GFR) non- Americanon 03-04-2025 GFR/1.73 sq M.predicted among non-blacks MDRD (S/P/Bld) [Vol rate/Area] Estimated glomerular filtration rate (GFR) non- Low >=60 mL/min/1.7 3m 2 [facility] GFR/1.73 sq M.predicted among non-blacks MDRD (S/P/Bld) [Vol rate/Area] 16 mL/min/{1.73_m2} Low >=60 mL/min/1.7 3m 2 [facility] Hematocrit Auto (Bld) [Volum e fraction]on 03-04-2025 Hematocrit (Bld) [Volume fraction] Hematocrit [Volume Fraction] of Blood by Automated count 36.0-48.0 [facility] Hematocrit (Bld) [Volume fraction] 36.5 % 36.0-48.0 [facility] Hemoglobin [Mass/volume] in Bloodon 03-04-2025 Hemoglobin (Bld) [Mass/Vol] Hemoglobin [Mass/volume] in Blood Low 12.0-16.0 [facility] Hemoglobin (Bld) [Mass/Vol] 11.3 g/dL Low 12.0-16.0 [facility] IgA [Mass/volume] in Serum o r Plasmaon 03-04-2025 IgA [Mass/Vol] IgA [Mass/volume] in Serum or Plasma 87-352 [facility] IgA [Mass/Vol] 316 mg/dL 87-352 [facility] IgG [Mass/volume] in Serum o r Plasmaon 03-04-2025 IgG [Mass/Vol] IgG [Mass/volume] in Serum or Plasma 586-1602 [facility] IgG [Mass/Vol] 974 mg/dL 586-1602 [facility] IgM [Mass/volume] in Serum o r Plasmaon 03-04-2025 IgM [Mass/Vol] IgM [Mass/volume] in Serum or Plasma 26-217 [facility] IgM [Mass/Vol] 66 mg/dL -217 [facility] Immunofixation for Urineon 0 03-04-2025 Interpretation Immunofixation (U) [Interp] Immunofixation for Urine . [facility] Comment on above: No monoclonality det ected.Performed at: [employer] [address] [id number] Director: Everardo Hernandez PhD, Phone: [phone] Interpretation Immunofixation (U) [Interp] Comment . [facility] Comment on above: No monoclonality det ected.Performed at: [employer] [address] [id number] Director: Everardo Hernandez PhD, Phone: [phone] Immunoglobulin light chains. kappa.free [Mass/volume] in Serumon 03-04-2025 Immunoglobulin light chains.kappa.free (S) [Mass/Vol] Immunoglobulin light chains.kappa.free [Mass/volume] in Serum Abnormal 3.3-19.4 [facility] Immunoglobulin light chains.kappa.free (S) [Mass/Vol] 65.2 mg/L Abnormal 3.3-19.4 [facility] Immunoglobulin light chains. kappa.free/Immunoglobulin light chains.lambda.free [[place]rington 03-04-2025 Immunoglobulin light chains.kappa.free/Immu noglobulin light chains.lambda.free (S) [Mass ratio] Immunoglobulin light chains.kappa.free/Immunog lobulin light chains.lambda.free [Mass 0.26-1.65 [facility] Comment on above: Performed at: [employer] [place] [address] [id number] Director: Everardo Hernandez PhD, Phone: [employer] Immunoglobulin light chains.kappa.free/Immu noglobulin light chains.lambda.free (S) [Mass ratio] 1.65 0.26-1.65 [facility] Comment on above: Performed at: [employer] [place] [address] [id number] Director: Everardo Hernandez PhD, Phone: [employer] Immunoglobulin light chains. lambda.free [Mass/volume] in Serum or Plasmaon 03-04-2025 Immunoglobulin light chains.lambda.free [Mass/Vol] Immunoglobulin light chains.lambda.free [Mass/volume] in Serum or Plasma Abnormal 5.7-26.3 [facility] Immunoglobulin light chains.lambda.free [Mass/Vol] 39.5 mg/L Abnormal 5.7-26.3 [facility] Laboratory - Chemistry and C hemistry - challengeon 03-04-2025 Albumin [Mass/Vol] 3.3 g/dL Low 3.4-5.0 [facility] Calcium [Mass/Vol] 9.1 mg/dL 8.5-10.1 [facility] Chloride [Moles/Vol] 101 mmol/L 98-107 [facility] CO2 [Moles/Vol] 28.3 mmol/L 21.0-32.0 [facility] Creatinine [Mass/Vol] 3.14 mg/dL High 0.55-1.02 [facility] GFR/1.73 sq M.predicted MDRD (S/P/Bld) [Vol rate/Area] 19 mL/min/{1.73_m2} Low >=60 mL/min/1.7 3m 2 [facility] Glucose [Mass/Vol] 238 mg/dL High 74-106 [facility] Magnesium [Mass/Vol] 1.9 mg/dL 1.8-2.4 [facility] Potassium [Moles/Vol] 3.8 mmol/L 3.5-5.1 [facility] Sodium [Moles/Vol] 135 mmol/L Low 136-145 [facility] Urate [Mass/Vol] 8.0 mg/dL High 2.6-6.0 [facility] Urea nitrogen [Mass/Vol] 43.0 mg/dL High 7.0-18.0 [facility] Urea nitrogen/Creatinine [Mass ratio] 13.7 mg/mg [facility] Bilirubin Ql (U) Negative NEGATIVE [facility] Glucose (U) [Mass/Vol] mg/dL Abnormal NEGATIVE [facility] Ketones Ql (U) Negative NEGATIVE [facility] pH (U) 6.0 [pH] 5.0-9.0 [facility] Specific gravity (U) [Rel density] <=1.005 Abnormal 1.005-1.02 5 [facility] Urobilinogen Qn (U) 0.2 {Jesu'U}/dL 0.2-1.0 [facility] Laboratory - Specimen inform ationon 03-04-2025 Appearance (U) CLEAR CLEAR [facility] Color (U) LT. YELLOW YELLOW [facility] Laboratory - Urinalysison Leukocyte esterase Test strip Ql (U) Negative NEGATIVE [facility] Mucus Ql (Urine sed) NONE SEEN NONE SEEN [facility] Nitrite Ql (U) Negative NEGATIVE [facility] Protein (U) [Mass/Vol] 61.3 mg/dL High <=11.9 [facility] Protein Ql (U) 30 mg/dL Abnormal NEG/TRACE [facility] Leukocytes [#/volume] correc marcos for nucleated erythrocytes in Blood by Automated counon 03-04-2025 WBC corrected for nucl RBC Auto (Bld) [#/Vol] Leukocytes [#/volume] corrected for nucleated erythrocytes in Blood by Automated coun 4.0-11.0 [facility] WBC corrected for nucl RBC Auto (Bld) [#/Vol] 5.6 10 3/uL 4.0-11.0 [facility] MCH Auto (RBC) [Entitic mass ]on 03-04-2025 MCH (RBC) [Entitic mass] MCH [Entitic mass] by Automated count Low 26.7-34.0 [facility] MCH (RBC) [Entitic mass] 24.0 pg Low 26.7-34.0 [facility] MCHC Auto (RBC) [Mass/Vol]on 03-04-2025 MCHC (RBC) [Mass/Vol] MCHC [Mass/volume] by Automated count 29.9-35.2 [facility] MCHC (RBC) [Mass/Vol] 31.0 g/dL 29.9-35.2 [facility] MCV Auto (RBC) [Entitic vol] on 03-04-2025 MCV (RBC) [Entitic vol] MCV [Entitic volume] by Automated count Low 81.0-99.0 [facility] MCV (RBC) [Entitic vol] 77.7 fL Low 81.0-99.0 [facility] No Panel Informationon 03-04 25-Hydroxy Vitamin D Total 32.8 ng/mL [facility] Comment on above: <20 ng/mL Vit D defi cient20-<30 ng/mL Vit D [id number] ng/mL Vit D sufficient>100 ng/mL Potential Toxicity Parathyroid Hormone (Intact) 103 pg/mL Abnormal 15-65 [facility] Comment on above: Performed at: - [facility] [employer] [address] [id number] Director: Everardo Hernandez PhD, Phone: [phone] Phosphorus Level 3.9 mg/dL 2.6-4.7 [facility] Protein Electrophoresis M-Payam Not Observed g/dL Not Observed [facility] Protein Electrophoresis Note Comment . [facility] Comment on above: Protein electrophore sis scan will follow via computer,mail, or tactical debriefer delivery. Urine Bacteria SMALL #/HPF Abnormal NONE SEEN [facility] Urine Occult Blood Negative NEGATIVE [facility] Urine Other Casts NONE SEEN #/LPF NONE SEEN [facility] Urine Other Crystals None Seen #/HPF None Seen [facility] Urine Random Creatinine 56.63 mg/dL 20.00-300. 00 [facility] Urine RBC 0-2 #/HPF 0-2 [facility] Urine Squamous Epithelial Cells MANY #/LPF Abnormal NONE/RARE [facility] Urine WBC 0-2 #/HPF Abnormal NONE SEEN [facility] Platelet mean volume Auto (B ld) [Entitic vol]on 03-04-2025 Platelet mean volume (Bld) [Entitic vol] Platelet mean volume [Entitic volume] in Blood by Automated count Low 9.5-13.5 [facility] Platelet mean volume (Bld) [Entitic vol] 9.1 fL Low 9.5-13.5 [facility] Platelets Auto (Bld) [#/Vol] on 03-04-2025 Platelets (Bld) [#/Vol] Platelets [#/volume] in Blood by Automated count 150-450 [facility] Platelets (Bld) [#/Vol] 293 10 3/uL 150-450 [facility] Protein [Mass/volume] in Ser um or Plasmaon 03-04-2025 Protein [Mass/Vol] Protein [Mass/volume ] in Serum or Plasma 6.0-8.5 [facility] Protein [Mass/Vol] 6.6 g/dL 6.0-8.5 [facility] RBC Auto (Bld) [#/Vol]on RBC (Bld) [#/Vol] Erythrocytes [#/volu me] in Blood by Automated count 4.20-5.40 [facility] RBC (Bld) [#/Vol] 4.70 10 6/uL 4.20-5.40 [facility] Serum globulin measurement ( mass/volume)on 03-04-2025 Globulin (S) [Mass/Vol] Serum globulin measurement (mass/volume) 2.2-3.9 [facility] Globulin (S) [Mass/Vol] 3.0 g/dL 2.2-3.9 [facility] Serum or plasma albumin/glob ulin mass ratioon 03-04-2025 Albumin/Globulin [Mass ratio] Serum or plasma albumin/globulin mass ratio 0.7-1.7 [facility] Albumin/Globulin [Mass ratio] 1.3 {ratio} 0.7-1.7 [facility] Serum or plasma alpha 1 glob ulin measurement by electrophoresis (mass/volume)on 03-04-2025 Alpha 1 globulin Elph [Mass/Vol] Serum or plasma alpha 1 globulin measurement by electrophoresis (mass/volume) 0.0-0.4 [facility] Alpha 1 globulin Elph [Mass/Vol] 0.2 g/dL 0.0-0.4 [facility] Serum or plasma alpha 2 glob ulin measurement by electrophoresis (mass/volume)on 03-04-2025 Alpha 2 globulin Elph [Mass/Vol] Serum or plasma alpha 2 globulin measurement by electrophoresis (mass/volume) 0.4-1.0 [facility] Alpha 2 globulin Elph [Mass/Vol] 0.8 g/dL 0.4-1.0 [facility] Serum or plasma anion gap de terminationon 03-04-2025 Anion gap [Moles/Vol] Serum or plasma an ion gap determination [facility] Anion gap [Moles/Vol] 9.5 mmol/L [facility] Serum or plasma beta globuli n measurement by electrophoresis (mass/volume)on 03-04-2025 Beta globulin Elph [Mass/Vol] Serum or plasma beta globulin measurement by electrophoresis (mass/volume) 0.7-1.3 [facility] Beta globulin Elph [Mass/Vol] 1.1 g/dL 0.7-1.3 [facility] Serum or plasma gamma globul in measurement by electrophoresis (mass/volume)on 03-04-2025 Gamma globulin Elph [Mass/Vol] Serum or plasma gamma globulin measurement by electrophoresis (mass/volume) 0.4-1.8 [facility] Gamma globulin Elph [Mass/Vol] 0.9 g/dL 0.4-1.8 [facility] Serum or plasma immunoelectr ophoresis interpretationon 03-04-2025 Interpretation IEP [Interp] Serum or plasma immunoelectrophoresis interpretation . [facility] Comment on above: No monoclonality det ected. Interpretation IEP [Interp] Comment . [facility] Comment on above: No monoclonality det ected. Urine protein/creatinine vineet gomez 03-04-2025 Protein/Creatinine (U) [Ratio] Urine protein/creatinine ratio [facility] Protein/Creatinine (U) [Ratio] 1.08 [facility] X-ray reportOrdered By: Waqas Zepeda on 02-15-2025 Study report [facility] [place] [address] XRay Report Signed Patient: Guerrero Ramos MR#: [id number] : 1980 Acct:[id number] Age/Sex: 44 / F ADM Date: 5 Loc: ER Room: Type: DEP ER Attending Dr: Copies to: Ernie Herrera MD~ Ordering Provider: Ernie Herrera MD Date of Service: 02/14/25 XR/XR chest 2V*: Dizziness Chest 2 views CLINICAL HISTORY: Dizziness shortness of breath low back pain fever. COMPARISON: Chest 01/16/2019 FINDINGS: Heart normal in size. Lungs are clear. No free air. XR/XR chest 2V* IMPRESSION: NO ACUTE CARDIOPULMONARY ABNORMALITY. Impression dictated by: Tod Zepeda Jr., D.O.02/15/2025 8:54 AM Dictation Location: [place] [address] Transcribed By: [facility] 02/15/25 0854 Dictated By: Tod Zepeda Jr, DO 02/15/25 0853 Signed By: 02/15/25 0854 [facility] XR chest 2V*on 02-15-2025 XR chest 2V* [facility] [place] [address] XRay Report Signed Patient: Guerrero Ramos MR#: [id number] : 1980 Acct:[id number] Age/Sex: 44 / F ADM Date: 02/14/25 Loc: ER Room: Type: DEP ER Attending Dr: Copies to: Ernie Herrera MD Ordering Provider: Ernie Herrera MD Date of Service: 02/14/25 XR/XR chest 2V*: Dizziness Chest 2 views CLINICAL HISTORY: Dizziness shortness of breath low back pain fever. COMPARISON: Chest 01/16/2019 FINDINGS: Heart normal in size. Lungs are clear. No free air. XR/XR chest 2V* IMPRESSION: NO ACUTE CARDIOPULMONARY ABNORMALITY. Impression dictated by: Tod Zepeda Jr., D.OОльга02/15/2025 8:54 AM Dictation Location: [facility] Transcribed By: [facility] 02/15/25 0854 Dictated By: Tod Zepeda Jr, DO 02/15/25 0853 Signed By: 02/15/25 0854 Normal [facility] Alanine aminotransferase [En zymatic activity/volume] in Serum or PlasmaOrdered By: Ernie Herrera on 02-14-2025 ALT [Catalytic activity/Vol] Alanine aminotransferase [Enzymatic activity/volume] in Serum or Plasma [facility] ALT [Catalytic activity/Vol] 13 U/L Normal [facility] Comment on above: Performed By: #### C K, CMP, HS TROP, CBC ####[facility] [id number] Albumin [Mass/volume] in Ser um or Plasma by Bromocresol green (BCG) dye binding methoOrdered By: Ernie Herrera on 02-14-2025 Albumin BCG dye [Mass/Vol] Albumin [Mass/volume] in Serum or Plasma by Bromocresol green (BCG) dye binding metho 3.5-5.7 [facility] Albumin BCG dye [Mass/Vol] 4.1 g/dL 3.5-5.7 [facility] Alkaline phosphatase [Enzyma tic activity/volume] in Serum or PlasmaOrdered By: Ernie Herrera on 02-14-2025 ALP [Catalytic activity/Vol] Alkaline phosphatase [Enzymatic activity/volume] in Serum or Plasma 34-104 [facility] [facility] ALP [Catalytic activity/Vol] 84 U/L Normal 34-104 [facility] Comment on above: Performed By: #### C K, CMP, HS TROP, CBC ####[facility] Appearance of UrineOrdered B y: Ernie Herrera on 02-14-2025 Appearance (U) Urine appearance Abnormal Clear [facility] Appearance (U) Cloudy Critically abnormal Clear [facility] Comment on above: Order Comment: Name Collection Type:: Clean-Voided Midstream Performed By: #### P TT, MG, CBC, PT, CMP #### [facility] [address] Aspartate aminotransferase [ Enzymatic activity/volume] in Serum or PlasmaOrdered By: Ernie Herrera on 02-14-2025 AST [Catalytic activity/Vol] Aspartate aminotransferase [Enzymatic activity/volume] in Serum or Plasma [address] [place] [address] AST [Catalytic activity/Vol] 19 U/L Normal [address] [place] [address] Comment on above: Performed By: #### C K, CMP, HS TROP, CBC ####[address] [place] [address] [place] Bacteria [Presence] in Urine by AutomatedOrdered By: Ernie Herrera on 02-14-2025 Bacteria Auto Ql (U) Bacteria [Presence] in Urine by Automated High None Seen [facility] Bacteria Auto Ql (U) 1+ [HPF] High None Seen [facility] Basophils Auto (Bld) [#/Vol] Ordered By: Ernie Herrera on 02-14-2025 Basophils (Bld) [#/Vol] Automated basophil count 0.0-0.2 [facility] Basophils [#/volume] in Bloo d by Automated countOrdered By: Ernie Herrera on 02-14-2025 Basophils (Bld) [#/Vol] 0.1 10*3/uL Normal 0.0-0.2 [facility] Comment on above: Result Comment: PERF ORMED BY: [facility] [address] [place] [address] PATHOLOGIST PRODUCTION CHECKER MATHEW ESPARZA M.D. Performed By: #### C K, CMP, HS TROP, CBC #### [facility] [address] [place] [address] [place] Basophils/100 WBC Auto (Bld) Ordered By: Ernie Herrera on 02-14-2025 Basophils/100 WBC (Bld) Automated basophil % . [facility] Basophils/100 leukocytes in Blood by Automated countOrdered By: Ernie Herrera on 02-14-2025 Basophils/100 WBC (Bld) 0.9 % Normal . [facility] Comment on above: Performed By: #### C K, CMP, HS TROP, CBC #### [facility] [address] Bilirubin Test strip Ql (U)O rdered By: Ernie eHrrera on 02-14-2025 Bilirubin Ql (U) Bilirubin.total [Presence] in Urine by Test strip Negative [facility] Bilirubin Ql (U) Negative Negative [facility] Bilirubin.total [Mass/volume ] in Serum or PlasmaOrdered By: Ernie Herrera on 02-14-2025 Bilirubin [Mass/Vol] Bilirubin.total [Mass/volume] in Serum or Plasma 0.3-1.0 [facility] Bilirubin [Mass/Vol] 0.3 mg/dL Normal 0.3-1.0 [facility] Comment on above: Performed By: #### C K, CMP, HS TROP, CBC ####[facility] Bap[address] Calcium [Mass/volume] in Ser um or PlasmaOrdered By: Ernie Herrera on 02-14-2025 Calcium [Mass/Vol] Calcium [Mass/volume ] in Serum or Plasma 8.6-10.3 [facility] Calcium [Mass/Vol] 9.8 mg/dL Normal 8.6-10.3 [facility] Comment on above: Performed By: #### C K, CMP, HS TROP, CBC ####[facility] Ayr[address] Capillary blood glucose darryn urement by glucometer (mass/volume)Ordered By: FLASH GARRETT on 02-14-2025 Glucose [Mass/Vol] 147 mg/dL Normal [facility] Comment on above: Random Glucose Refer ence Range is dependent on time and content of last meal. Glucose of more than 200 mg/dL in a nonstressed, ambulatory subject supports the diagnosis of Diabetes Mellitus. Result Comment: [facility] [place] Glucose Reference Range is dependent on time and content of last meal. Glucose of more than 200 mg/dL in a nonstressed, ambulatory subject supports the diagnosis of Diabetes Mellitus. PERFORMED BY: [facility] [address] [place] [address] PATHOLOGIST PRODUCTION CHECKER MATHEW ESPARZA M.D. Performed By: #### G LULS ####Point of Care testing, Carbon dioxide, total [Moles /volume] in Serum or PlasmaOrdered By: Ernie Herrera on 02-14-2025 CO2 [Moles/Vol] Carbon dioxide, tota l [Moles/volume] in Serum or Plasma 21.0-31.0 [facility] CO2 [Moles/Vol] 22.1 mmol/L Normal 21.0-31.0 [facility] Comment on above: Performed By: #### C K, CMP, HS TROP, CBC ####[facility] Dev[address] Chloride [Moles/volume] in S prabhjot or PlasmaOrdered By: Ernie Herrera on 02-14-2025 Chloride [Moles/Vol] Chloride [Moles/vol ume] in Serum or Plasma 98-107 [facility] Chloride [Moles/Vol] 103 mmol/L Normal 98-107 [facility] Comment on above: Performed By: #### C K, CMP, HS TROP, CBC ####[place] [id number] Color Auto (U)Ordered By: Vy Herrera on 02-14-2025 Color (U) Color of Urine by Auto Yellow [facility] Color of Urine by AutoOrdere d By: Ernie Herrera on 02-14-2025 Color (U) Yellow Normal Yellow [facility] Comment on above: Order Comment: Name Collection Type:: Clean-Voided Midstream Performed By: #### P TT, MG, CBC, PT, CMP #### [facility] [address] Complete Blood Count Auto Di ffon 02-14-2025 Mean Corpuscular HGB Conc 33.5 g/dL Normal 32.0-35.0 [facility] Comment on above: Performed By: #### C K, CMP, HS TROP, CBC #### [address] Monocytes/100 WBC (Bld) 18.24 % Normal 0.00-20.00 [facility] Comment on above: Performed By: #### C K, CMP, HS TROP, CBC #### [address] NRBC% 0.2 /100{WBC} Normal 0-0.5 [facility] Comment on above: Performed By: #### C K, CMP, HS TROP, CBC #### [address] Comprehensive Metabolic Pane bobby 02-14-2025 Albumin [Mass/Vol] 4.1 g/dL Normal 3.5-5.7 [facility] Comment on above: Performed By: #### C K, CMP, HS TROP, CBC ####[address] Creatinine Clr Calc Pharmacy 30.12 Normal [facility] Comment on above: Result Comment: PERF ORMED BY: [place] [address] PATHOLOGIST PRODUCTION CHECKER MATHEW ESPARZA M.D. Performed By: #### C K, CMP, HS TROP, CBC ####[address] Estimated GFR 18.143 mL/Min Normal [facility] Comment on above: Performed By: #### C K, CMP, HS TROP, CBC ####[address] Creatine kinase [Enzymatic a ctivity/volume] in Serum or PlasmaOrdered By: Ernie Herrera on 02-14-2025 CK [Catalytic activity/Vol] Creatine kinase [Enzymatic activity/volume] in Serum or Plasma 30-223 [facility] CK [Catalytic activity/Vol] 56 U/L Normal 30-223 [facility] Comment on above: Performed By: #### C K, CMP, HS TROP, CBC ####[facility] [place] [address] Creatinine [Mass/volume] in Serum or PlasmaOrdered By: Ernie Herrera on 02-14-2025 Creatinine [Mass/Vol] Creatinine [Mass/v olume] in Serum or Plasma High 0.60-1.20 [facility] Creatinine [Mass/Vol] 3.11 mg/dL High 0.60-1.20 [facility] Comment on above: Performed By: #### C K, CMP, HS TROP, CBC ####[facility] [place] [address] Dipstick and Microscopicon 0 02-14-2025 Bacteria,Urine 1+ High None Seen [facility] Comment on above: Order Comment: Name Collection Type:: Clean-Voided Midstream Performed By: #### P TT, MG, CBC, PT, CMP #### [facility] [address] Bilirubin,Urine Negative Normal Negative [facility] Comment on above: Order Comment: Name Collection Type:: Clean-Voided Midstream Performed By: #### P TT, MG, CBC, PT, CMP #### [address] Glucose Ql (U) >= High Normal [facility] Comment on above: Order Comment: Name Collection Type:: Clean-Voided Midstream Performed By: #### P TT, MG, CBC, PT, CMP #### [facility] [address] Hyaline Casts,Urine None Normal 0-8 [facility] Comment on above: Order Comment: Name Collection Type:: Clean-Voided Midstream Performed By: #### P TT, MG, CBC, PT, CMP #### [address] Mucus,Urine Rare Normal [facility] Comment on above: Order Comment: Name Collection Type:: Clean-Voided Midstream Result Comment: PERF ORMED BY: [facility] [address] [place] [address] PATHOLOGIST PRODUCTION CHECKER MATHEW ESPARZA M.D. Performed By: #### P TT, MG, CBC, PT, CMP #### [address] Nitrite,Urine Negative Normal Negative [facility] Comment on above: Order Comment: Name Collection Type:: Clean-Voided Midstream Performed By: #### P TT, MG, CBC, PT, CMP #### [address] Occult Blood,Urine Negative Normal Negative [facility] Comment on above: Order Comment: Name Collection Type:: Clean-Voided Midstream Result Comment: PERF ORMED BY: [place] [address] PATHOLOGIST PRODUCTION CHECKER MATHEW ESPARZA M.D. Performed By: #### P TT, MG, CBC, PT, CMP #### [address] RBC,Urine 1-2 Normal 0-4 [facility] Comment on above: Order Comment: Name Collection Type:: Clean-Voided Midstream Performed By: #### P TT, MG, CBC, PT, CMP #### [address] Specificy [place],Urine 1.018 Normal 1.001-1.03 0 [facility] Comment on above: Order Comment: Name Collection Type:: Clean-Voided Midstream Performed By: #### P TT, MG, CBC, PT, CMP #### [address] Squamous Epithelial Cell,Urine 5-9 High 0-2 [facility] Comment on above: Order Comment: Name Collection Type:: Clean-Voided Midstream Performed By: #### P TT, MG, CBC, PT, CMP #### [address] Urobilinogen,Urine Normal Normal Normal [facility] Comment on above: Order Comment: Name Collection Type:: Clean-Voided Midstream Performed By: #### P TT, MG, CBC, PT, CMP #### [address] WBC,Urine 3-4 Normal 0-4 [facility] Comment on above: Order Comment: Name Collection Type:: Clean-Voided Midstream Performed By: #### P TT, MG, CBC, PT, CMP #### [facility] [address] [place] [address] ECG 12 lead ECGon 02-14-2025 ECG 12 lead ECG [facility] Main [place] [address] [place] [address] Electrocardiograph Report Signed Patient: Guerrero Ramos MR#: [id number] 102 : 1980 Acct:[id number] Age/Sex: 44 / F ADM Date: 02/14/25 Loc: ER Room: Type: [facility] ER Attending Dr: Ordering Provider: Ernie Herrera MD Date of Service: 02/14/25 ECG/ECG 12 lead ECG: Dizziness Copies to: Test Reason : Blood Pressure : */* mmHG Vent. Rate : 89 BPM Atrial Rate : 89 BPM P-R Int : 154 ms QRS Dur : 80 ms QT Int : 362 ms P-R-T Axes : 38 17 29 degrees QTcB Int : 440 ms Normal sinus rhythm Low voltage QRS Cannot rule out Anterior infarct (cited on or before 20-Aug-2023) Abnormal ECG When compared with ECG of 20-Aug-2023 15:38, Nonspecific T wave abnormality no longer evident in Anterolateral leads Confirmed by ERNIE HERRERA MD ([id number]) on 02/15/2025 1:18:15 AM Referred By: Electronically Signed By: ERNIE HERRERA MD Transcribed By: MUS Signed By Ernie Herrera MD 01/28 0118 Normal [facility] Eosinophils Auto (Bld) [#/Vo l]Ordered By: Ernie Herrera on 02-14-2025 Eosinophils (Bld) [#/Vol] Automated eosinophil count 0.0-0.45 [facility] Eosinophils [#/volume] in Bl ood by Automated countOrdered By: Ernie Herrera on 02-14-2025 Eosinophils (Bld) [#/Vol] 0.2 10*3/uL Normal 0.0-0.45 [facility] Comment on above: Performed By: #### C K, CMP, HS TROP, CBC #### [facility] [address] Eosinophils/100 WBC Auto (Bl d)Ordered By: Ernie Herrera on 02-14-2025 Eosinophils/100 WBC (Bld) Automated eosinophil % . [facility] Eosinophils/100 leukocytes i n Blood by Automated countOrdered By: Ernie Herrera on 02-14-2025 Eosinophils/100 WBC (Bld) 1.8 % Normal . [facility] Comment on above: Performed By: #### C K, CMP, HS TROP, CBC #### [facility] [address] Epithelial cells.squamous [# /area] in Urine sediment by Automated countOrdered By: Ernie Herrera on 02-14-2025 Epithelial cells.squamous Auto (Urine sed) [#/Area] Epithelial cells.squamous [#/area] in Urine sediment by Automated count High 0-2 [facility] Epithelial cells.squamous Auto (Urine sed) [#/Area] 5-9 [HPF] High 0-2 [facility] Erythrocyte distribution wid th Auto (RBC) [Ratio]Ordered By: Ernie Herrera on 02-14-2025 Erythrocyte distribution width (RBC) [Ratio] Erythrocyte distribution width [Ratio] by Automated count High 11.9-15.3 [facility] Erythrocyte distribution wid th [Ratio] by Automated countOrdered By: Ernie Herrera on 02-14-2025 Erythrocyte distribution width (RBC) [Ratio] 16.8 % High 11.9-15.3 [facility] Comment on above: Performed By: #### C K, CMP, HS TROP, CBC #### [facility] [address] Erythrocytes [#/area] in Uri ne sediment by Automated countOrdered By: Ernie Herrera on 02-14-2025 RBC Auto (Urine sed) [#/Area] Erythrocytes [#/area] in Urine sediment by Automated count 0-4 [facility] RBC Auto (Urine sed) [#/Area] 1-2 [HPF] 0-4 [facility] Erythrocytes [#/volume] in B lood by Automated countOrdered By: Ernie Herrera on 02-14-2025 RBC (Bld) [#/Vol] 4.90 10*6/uL Normal 3.60-5.00 [facility] Comment on above: Performed By: #### C K, CMP, HS TROP, CBC #### [facility] [address] Globulin Calc (S) [Mass/Vol] Ordered By: Ernie Herrera on 02-14-2025 Globulin (S) [Mass/Vol] Serum globulin measurement by calculation (mass/volume) [facility] Glucose Glucometer (BldC) [M ass/Vol]Ordered By: FLASH GARRETT on 02-14-2025 Glucose [Mass/Vol] Capillary blood gluc ose measurement by glucometer (mass/volume) [facility] Comment on above: Random Glucose Refer ence Range is dependent on time and content of last meal. Glucose of more than 200 mg/dL in a nonstressed, ambulatory subject supports the diagnosis of Diabetes Mellitus. Glucose [Mass/volume] in Ser um or PlasmaOrdered By: Ernie Herrera on 02-14-2025 Glucose [Mass/Vol] Glucose [Mass/volume ] in Serum or Plasma High 70-100 [facility] Comment on above: ADA recommended refe rence rangeRandom Glucose Reference Range is dependent on time and content of last meal. Glucose of more than 200 mg/dL in a nonstressed, ambulatory subject supports the diagnosis of Diabetes Mellitus. Glucose [Mass/Vol] 137 mg/dL High 70-100 [facility] Comment on above: ADA recommended refe rence rangeRandom Glucose Reference Range is dependent on time and content of last meal. Glucose of more than 200 mg/dL in a nonstressed, ambulatory subject supports the diagnosis of Diabetes Mellitus. Result Comment: [place] Glucose Reference Range is dependent on time and content of last meal. Glucose of more than 200 mg/dL in a nonstressed, ambulatory subject supports the diagnosis of Diabetes Mellitus. ADA recommended reference range Performed By: #### C K, CMP, HS TROP, CBC ####[facility] Kvf[address] Glucose [Mass/volume] in Uri ne by Test stripOrdered By: Ernie Herrera on 02-14-2025 Glucose Test strip (U) [Mass/Vol] Glucose [Mass/volume] in Urine by Test strip High Normal [facility] Glucose Test strip (U) [Mass/Vol] >=1000 mg/dL High Normal [facility] Hematocrit Auto (Bld) [Volum e fraction]Ordered By: Ernie Herrera on 02-14-2025 Hematocrit (Bld) [Volume fraction] Hematocrit [Volume Fraction] of Blood by Automated count 34.0-46.4 [facility] Hematocrit [Volume Fraction] of Blood by Automated countOrdered By: Ernie Herrera on 02-14-2025 Hematocrit (Bld) [Volume fraction] 36.7 % Normal 34.0-46.4 [facility] Comment on above: Performed By: #### C K, CMP, HS TROP, CBC #### [facility] [address] Hemoglobin Test strip Ql (U) Ordered By: Ernie Herrera on 02-14-2025 Hemoglobin Ql (U) Hemoglobin [Presence ] in Urine by Test strip Negative [facility] Hemoglobin Ql (U) Negative Negative [facility] Hemoglobin [Mass/volume] in BloodOrdered By: Ernie Herrera on 02-14-2025 Hemoglobin (Bld) [Mass/Vol] Hemoglobin [Mass/volume] in Blood 11.8-15.4 [facility] Hemoglobin (Bld) [Mass/Vol] 12.3 g/dL Normal 11.8-15.4 [facility] Comment on above: Performed By: #### C K, CMP, HS TROP, CBC #### [facility] [address] Hyaline casts [#/area] in Ur ine sediment by Automated countOrdered By: Ernie Herrera on 02-14-2025 Hyaline casts Auto (Urine sed) [#/Area] Hyaline casts [#/area] in Urine sediment by Automated count 0-8 [facility] Hyaline casts Auto (Urine sed) [#/Area] None [LPF] 0-8 [facility] Ketones Test strip Ql (U)Ord ered By: Ernie Herrera on 02-14-2025 Ketones Ql (U) Ketones [Presence] i n Urine by Test strip Negative [facility] Ketones [Presence] in Urine by Test stripOrdered By: Ernie Herrera on 02-14-2025 Ketones Ql (U) Negative Normal Negative [facility] Comment on above: Order Comment: Name Collection Type:: Clean-Voided Midstream Performed By: #### P TT, MG, CBC, PT, CMP #### [facility] [address] Leukocyte esterase [Presence ] in Urine by Test stripOrdered By: Ernie Herrera on 02-14-2025 Leukocyte esterase Test strip Ql (U) Leukocyte esterase [Presence] in Urine by Test strip Negative [facility] Leukocyte esterase Test strip Ql (U) Negative Normal Negative [facility] Comment on above: Order Comment: Name Collection Type:: Clean-Voided Midstream Performed By: #### P TT, MG, CBC, PT, CMP #### [facility] [address] Leukocytes [#/area] in Urine sediment by Automated countOrdered By: Ernie Herrera on 02-14-2025 WBC Auto (Urine sed) [#/Area] Leukocytes [#/area] in Urine sediment by Automated count 0-4 [facility] WBC Auto (Urine sed) [#/Area] 3-4 [HPF] 0-4 [facility] Leukocytes [#/volume] correc marcos for nucleated erythrocytes in Blood by Automated counOrdered By: Ernie Herrera on 02-14-2025 WBC corrected for nucl RBC Auto (Bld) [#/Vol] Leukocytes [#/volume] corrected for nucleated erythrocytes in Blood by Automated coun 3.8-11.6 [facility] WBC corrected for nucl RBC Auto (Bld) [#/Vol] 8.9 10*3/uL 3.8-11.6 [facility] Leukocytes [#/volume] in Blo od by Automated countOrdered By: Ernie Herrera on 02-14-2025 WBC (Bld) [#/Vol] 8.9 10*3/uL Normal 3.8-11.6 [facility] Comment on above: Performed By: #### C K, CMP, HS TROP, CBC #### [facility] [address] Lymphocytes Auto (Bld) [#/Vo l]Ordered By: Ernie Herrera on 02-14-2025 Lymphocytes (Bld) [#/Vol] Lymphocytes [#/volume] in Blood by Automated count 1.00-4.8 [facility] Lymphocytes [#/volume] in Bl ood by Automated countOrdered By: Ernie Herrera on 02-14-2025 Lymphocytes (Bld) [#/Vol] 1.8 10*3/uL Normal 1.00-4.8 [facility] Comment on above: Performed By: #### C Alex, CMP, HS TROP, CBC #### [address] Lymphocytes/100 WBC Auto (Bl d)Ordered By: Ernie Herrera on 02-14-2025 Lymphocytes/100 WBC (Bld) Lymphocytes/100 leukocytes in Blood by Automated count . [facility] Lymphocytes/100 leukocytes i n Blood by Automated countOrdered By: Ernie Herrera on 02-14-2025 Lymphocytes/100 WBC (Bld) 19.7 % Normal . [facility] Comment on above: Performed By: #### C Alex, CMP, HS TROP, CBC #### [address] MCH Auto (RBC) [Entitic mass ]Ordered By: Ernie Herrera on 02-14-2025 MCH (RBC) [Entitic mass] MCH [Entitic mass] by Automated count 24.7-34.3 [facility] MCH [Entitic mass] by Automa marcos countOrdered By: Ernie Herrera on 02-14-2025 MCH (RBC) [Entitic mass] 25.1 pg Normal 24.7-34.3 [facility] Comment on above: Performed By: #### C K, CMP, HS TROP, CBC #### [address] MCHC Auto (RBC) [Mass/Vol]Or dered By: Ernie Herrera on 02-14-2025 MCHC (RBC) [Mass/Vol] MCHC [Mass/volume] by Automated count 32.0-35.0 [facility] MCHC (RBC) [Mass/Vol] 33.5 g/dL 32.0-35.0 [facility] MCV Auto (RBC) [Entitic vol] Ordered By: Ernie Herrera on 02-14-2025 MCV (RBC) [Entitic vol] MCV [Entitic volume] by Automated count Low 80-100 [facility] MCV [Entitic volume] by Auto mated countOrdered By: Ernie Herrera on 02-14-2025 MCV (RBC) [Entitic vol] 74.9 fL Low 80-100 [facility] Comment on above: Performed By: #### C K, CMP, HS TROP, CBC #### [facility] [address] Monocyte distribution width [Entitic volume] in Blood by AutomatedOrdered By: Ernie Herrera on 02-14-2025 Monocyte distribution width Auto (Bld) [Entitic vol] Monocyte distribution width [Entitic volume] in Blood by Automated 0.00-20.00 [facility] Monocyte distribution width Auto (Bld) [Entitic vol] 18.24 % 0.00-20.00 [facility] Monocytes Auto (Bld) [#/Vol] Ordered By: Ernie Herrera on 02-14-2025 Monocytes (Bld) [#/Vol] Automated blood monocyte count 0.0-0.8 [facility] Monocytes [#/volume] in Bloo d by Automated countOrdered By: Ernie Herrera on 02-14-2025 Monocytes (Bld) [#/Vol] 0.5 10*3/uL Normal 0.0-0.8 [facility] Comment on above: Performed By: #### C K, CMP, HS TROP, CBC #### [facility] [address] [place] [address] [place] Monocytes/100 WBC Auto (Bld) Ordered By: Ernie Herrera on 02-14-2025 Monocytes/100 WBC (Bld) Automated monocyte % . [facility] Monocytes/100 leukocytes in Blood by Automated countOrdered By: Ernie Herrera on 02-14-2025 Monocytes/100 WBC (Bld) 5.5 % Normal . [facility] Comment on above: Performed By: #### C K, CMP, HS TROP, CBC #### [facility] [address] Mucus [Presence] in Urine by AutomatedOrdered By: Ernie Herrera on 02-14-2025 Mucus Auto Ql (U) Mucus [Presence] in Urine by Automated [facility] Mucus Auto Ql (U) Rare [LPF] [facility] Neutrophils Auto (Bld) [#/Vo l]Ordered By: Ernie Herrera on 02-14-2025 Neutrophils (Bld) [#/Vol] Neutrophils [#/volume] in Blood by Automated count 1.8-7.7 [facility] Neutrophils [#/volume] in Bl ood by Automated countOrdered By: Ernie Herrera on 02-14-2025 Neutrophils (Bld) [#/Vol] 6.4 10*3/uL Normal 1.8-7.7 [facility] Comment on above: Performed By: #### C K, CMP, HS TROP, CBC #### [facility] [address] [place] [address] Neutrophils/100 WBC Auto (Bl d)Ordered By: Ernie Herrera on 02-14-2025 Neutrophils/100 WBC (Bld) Automated neutrophil % . [facility] Neutrophils/100 leukocytes i n Blood by Automated countOrdered By: Ernie Herrera on 02-14-2025 Neutrophils/100 WBC (Bld) 72.1 % Normal . [facility] Comment on above: Performed By: #### C K, CMP, HS TROP, CBC #### [facility] [facility] [address] [place] [address] Nitrite Test strip Ql (U)Ord ered By: Ernie Herrera on 02-14-2025 Nitrite Ql (U) Nitrite [Presence] i n Urine by Test strip Negative [facility] Nitrite Ql (U) Negative Negative [facility] No Panel InformationOrdered By: Ernie Herrera on 02-14-2025 Estimated GFR (CKD-EPI) 18.143 mL/Min [facility] Creatinine Clearance (Chem 30.12 [facility] Nucleated erythrocytes [Pres ence] in Blood by Automated countOrdered By: Ernie Herrera on 02-14-2025 Nucleated RBC Auto Ql (Bld) Nucleated erythrocytes [Presence] in Blood by Automated count 0-0.5 [facility] Nucleated RBC Auto Ql (Bld) 0.2 /100{WBC} 0-0.5 [facility] Platelet mean volume Auto (B ld) [Entitic vol]Ordered By: Ernie Herrera on 02-14-2025 Platelet mean volume (Bld) [Entitic vol] Platelet mean volume [Entitic volume] in Blood by Automated count 6.3-10.7 [facility] Platelet mean volume [Entiti c volume] in Blood by Automated countOrdered By: Ernie Herrera on 02-14-2025 Platelet mean volume (Bld) [Entitic vol] 7.5 fL Normal 6.3-10.7 [facility] Comment on above: Performed By: #### C K, CMP, HS TROP, CBC #### [facility] [address] Platelets Auto (Bld) [#/Vol] Ordered By: Ernie Herrera on 02-14-2025 Platelets (Bld) [#/Vol] Platelets [#/volume] in Blood by Automated count 150-450 [facility] Platelets [#/volume] in Bloo d by Automated countOrdered By: Ernie Herrera on 02-14-2025 Platelets (Bld) [#/Vol] 227 10*3/uL Normal 150-450 [facility] Comment on above: Performed By: #### C K, CMP, HS TROP, CBC #### [facility] [address] [place] [address] [place] Potassium [Moles/volume] in Serum or PlasmaOrdered By: Ernie Herrera on 02-14-2025 Potassium [Moles/Vol] Potassium [Moles/v olume] in Serum or Plasma 3.5-5.1 [facility] Potassium [Moles/Vol] 4.3 mmol/L Normal 3.5-5.1 [facility] Comment on above: Performed By: #### C K, CMP, HS TROP, CBC ####[facility] [id number] [address] Protein Test strip (U) [Mass /Vol]Ordered By: Ernie Herrera on 02-14-2025 Protein (U) [Mass/Vol] Protein [Mass/vol ume] in Urine by Test strip High Negative [facility] Protein [Mass/volume] in Ser um or PlasmaOrdered By: Ernie Herrera on 02-14-2025 Protein [Mass/Vol] Protein [Mass/volume ] in Serum or Plasma 6.4-8.9 [facility] Protein [Mass/Vol] 8.0 g/dL Normal 6.4-8.9 [facility] Comment on above: Performed By: #### C K, CMP, HS TROP, CBC ####[place] [id number] [address] Protein [Mass/volume] in Uri ne by Test stripOrdered By: Ernie Herrera on 02-14-2025 Protein (U) [Mass/Vol] 200 mg/dL High Negative [facility] Comment on above: Order Comment: Name Collection Type:: Clean-Voided Midstream Performed By: #### P TT, MG, CBC, PT, CMP #### [facility] [address] RBC Auto (Bld) [#/Vol]Ordere d By: Ernie Herrera on 02-14-2025 RBC (Bld) [#/Vol] Erythrocytes [#/volu me] in Blood by Automated count 3.60-5.00 [facility] Serum globulin measurement b y calculation (mass/volume)Ordered By: Ernie Herrera on 02-14-2025 Globulin (S) [Mass/Vol] 3.9 g/dL Normal [facility] Comment on above: Performed By: #### C K, CMP, HS TROP, CBC ####[facility] [id number] Serum or plasma albumin/glob ulin mass ratioOrdered By: Ernie Herrera on 02-14-2025 Albumin/Globulin [Mass ratio] Serum or plasma albumin/globulin mass ratio [facility] Albumin/Globulin [Mass ratio] 1.1 {ratio} [facility] Comment on above: Performed By: #### C K, CMP, HS TROP, CBC ####[facility] [address] Serum or plasma anion gap de terminationOrdered By: Ernie Herrera on 02-14-2025 Anion gap [Moles/Vol] Serum or plasma an ion gap determination 6.0-15.0 [facility] Anion gap [Moles/Vol] 14.2 mmol/L Normal 6.0-15.0 [facility] Comment on above: Performed By: #### C K, CMP, HS TROP, CBC ####[address] Sodium [Moles/volume] in Ser um or PlasmaOrdered By: Ernie Herrera on 02-14-2025 Sodium [Moles/Vol] Sodium [Moles/volume ] in Serum or Plasma Low 136-145 [facility] Sodium [Moles/Vol] 135 mmol/L Low 136-145 [facility] Comment on above: Performed By: #### C K, CMP, HS TROP, CBC ####[address] Specific gravity Test strip (U) [Rel density]Ordered By: Ernie Herrera on 02-14-2025 Specific gravity (U) [Rel density] Specific gravity of Urine by Test strip 1.001-1.03 0 [facility] Specific gravity (U) [Rel density] 1.018 1.001-1.03 0 [facility] Troponin I High Sensitivityo n 02-14-2025 Troponin I High Sensitivity 4 Normal 0-15 [facility] Comment on above: Result Comment: The Troponin units of report have been changed to meet the Chest Pain Accreditation requirement, element EC5.M1l2. Troponin units are changed from pg/ml to ng/L. Also, the decimal is removed and results are in whole numbers. PERFORMED BY: [facility] [address] [place] [address] PATHOLOGIST PRODUCTION CHECKER MATHEW ESPARZA M.D. Performed By: #### C K, CMP, HS TROP, CBC ####[address] Troponin I.cardiac [Mass/vol ume] in Serum or Plasma by Detection limit <= 0.01 ng/Ordered By: Ernie Herrera on 02-14-2025 Troponin I.cardiac DL <= 0.01 ng/mL [Mass/Vol] Troponin I.cardiac [Mass/volume] in Serum or Plasma by Detection limit <= 0.01 ng/ 015 [facility] Comment on above: The Troponin units o f report have been changed to meet the Chest Pain Accreditation requirement, element EC5.M1l2. Troponin units are changed from pg/ml to ng/L. Also, the decimal is removed and results are in whole numbers. Troponin I.cardiac [Mass/vol ume] in Serum or Plasma by Detection limit <= 0.01 ng/mLOrdered By: Ernie Herrera on 02-14-2025 Troponin I.cardiac DL <= 0.01 ng/mL [Mass/Vol] 4 ng/L [facility] Comment on above: The Troponin units o f report have been changed to meet the Chest Pain Accreditation requirement, element EC5.M1l2. Troponin units are changed from pg/ml to ng/L. Also, the decimal is removed and results are in whole numbers. Urea nitrogen [Mass/volume] in Serum or PlasmaOrdered By: Ernie Herrera on 02-14-2025 Urea nitrogen [Mass/Vol] Urea nitrogen [Mass/volume] in Serum or Plasma High 7-25 [facility] Urea nitrogen [Mass/Vol] 43 mg/dL High 7-25 [facility] Comment on above: Performed By: #### C K, CMP, HS TROP, CBC ####[facility] [id number] [place] [id number] [facility] Urobilinogen Test strip (U) [Mass/Vol]Ordered By: Ernie Herrera on 02-14-2025 Urobilinogen (U) [Mass/Vol] Urobilinogen [Mass/volume] in Urine by Test strip Normal [facility] Urobilinogen (U) [Mass/Vol] Normal mg/dL Normal [facility] WBC Auto (Bld) [#/Vol]Ordere d By: Ernie Herrera on 02-14-2025 WBC (Bld) [#/Vol] Leukocytes [#/volume ] in Blood by Automated count 3.8-11.6 [facility] pH Test strip (U)Ordered By: Ernie Herrera on 02-14-2025 pH (U) pH of Urine by Test strip 5.0-9.0 [facility] pH of Urine by Test stripOrd ered By: Ernie Herrera on 02-14-2025 pH (U) 5.5 [pH] Normal 5.0-9.0 [facility] Comment on above: Order Comment: Name Collection Type:: Clean-Voided Midstream Performed By: #### P TT, MG, CBC, PT, CMP #### [facility] [address] CNOVon 02-13-2025 CNOV Office Visit (GENSMN ) ----- GUERRERO RAMOS ([id number]) 1980 F Date Time Provider Department 02/13/25 10:30 AM MIGUEL ÁNGEL HOPSON During your visit today, we recorded the following information about you: Temperature Pulse Respiration Blood pressure 96.4 degrees 90/minute 20/minute 124/84 Weight Height Last Period 130.3 kg 1.6 m 01/14/25 Jian Snell LPN 02/13/2025 12:28 PM Signed What is the reason for your visit today? Follow Up/Post Op Who is your referring physician? N/A Are you having poor oral intake? YES Have you had unintentional weight loss of 15 lbs/7 Kg in the last 3-6 months? NO Bowels: constipated or regular Wound: clean AND dry,no openings on incisional line Temperature: No Drains: No CHARAN Greene Kimberly, APRN.TAN ROOM SUPERVISOR 02/13/2025 12:28 PM Signed [facility] Clinic Date: February 13, 2025 Guerrero Ramos 44 year old female CHIEF COMPLAINT: Patient presents for follow up from surgery. HPI: Here for follow up after open bilateral TAR, incisional hernia repair with mesh on 01/13/[address] Franco. Doing well overall, and post operative recovery has been uncomplicated. On exam, the incision(s) is/are doing well and there is no evidence of infection or hernia recurrence. Patient is pleased with repair. Pain: Denies Incisional Drainage: Denies Incisional Erythema: Denies Fever/Chills: Denies Increased Heart Rate: Denies Constipation: Endorses - stool softener Diarrhea: Denies Nausea/Vomiting: Denies Difficulty Voiding: Denies Decreased Urine Output: Denies Shortness of Breath: Denies Cough / Wheezing: Denies Calf/Thigh pain or swelling: Denies Current Diet: Regular Present Activity level: Walking - plans to return to work tomorrow Surgery Date and Procedure: 01/13/2025 1. Open right myofascial advancement flap 2. Open left myofascial advancement flap 3. Repair of incarcerated incisional hernia Randomized Controlled Trial: Preoperative weight loss for open abdominal wall reconstruction Current Medications: Current Outpatient Medications Medication Sig Dispense Refill traZODone (DESYREL) 100 mg tablet Take 100 mg by mouth two times a day. ALPRAZolam (XANAX) 0.25 mg tablet Take 0.25 mg by mouth at bedtime as needed. levothyroxine 75 mcg cap Take 75 mcg by mouth daily before breakfast. meclizine (ANTIVERT) 25 mg tab Take 25 mg by mouth three times a day. amLODIPine (NORVASC) 2.5 mg tablet Take by mouth once daily. ondansetron HCl (ZOFRAN ORAL) Take by mouth as needed. insulin glargine,hum.rec.anlog (TOUJEO MAX U-300 SOLOSTAR SUBCUTANEOUS) Inject subcutaneously. tolterodine (DETROL) 2 mg tablet Take 2 mg by mouth two times a day. rosuvastatin (CRESTOR) 20 mg tablet Take 20 mg by mouth once daily. sertraline (ZOLOFT) 50 mg tablet Take 50 mg by mouth once daily. ergocalciferol 50,000 unit capsule (VITAMIN D2, DRISDOL) Take 50,000 Units by mouth one time a week. No current facility-administered medications for this visit. REVIEW OF SYSTEMS: CONSTITUTIONAL: Patient denies fevers, chills, sweats CARDIOVASCULAR: Patient denies chest pains, palpitations RESPIRATORY: No dyspnea on exertion, no wheezing or cough. GI: No diarrhea. Constipation. No nausea/vomiting. MUSCULOSKELETAL: No new myalgias or arthralgias. DERMATOLOGIC: Patient denies any rashes or skin changes. PHYSICAL EXAM: BP 124/84 (BP Site: Left Arm, BP Position: Sitting, BP Cuff Size: Large Adult) Pulse 90 Temp (!) 35.8 ?C (96.4 ?F) (Tympanic) Resp 20 Ht 160 cm (5' 3 ) Wt 130.3 kg (287 lb 3.2 oz) LMP 01/14/2025 (Approximate) SpO2 98% BMI 50.88 kg/m? GENERAL: No apparent distress. Pt is alert and oriented x3. LUNGS: Lungs clear and equal. No wheezing HEART: Regular rate and rhythm without murmur. No leg edema ABDOMEN: Soft, nontender, and nondistended. Positive bowel sounds. EXTREMITIES: Without any cyanosis, clubbing, rash, lesions or edema. INCISIONS: Clean, dry, intact, well approximated. No s/s of infection. SURGICAL PATHOLOGY: N/A ASSESSMENT/PLAN: 1. Postoperative visit - ICD9: V58.49, ICD10: Z48.89 (primary diagnosis) -Recovering appropriately, incision healing well -Increase activity as tolerated -Encouraged to try Miralax daily for constipation -Plan for follow up in 1 year, CT abd/pel to be completed prior to appointment 2. Type 2 diabetes mellitus with chronic kidney disease, with long-term current use of insulin, unspecified CKD stage (HCC) - ICD9: 250.40, 585.9, V58.67, ICD10: E11.22, Z79.4 -Controlled -Last hba1c was 6.1 (12/2024) - LIRAGLUTIDE 0.6 MG/0.1 ML (18 MG/3 ML) SUBCUTANEOUS PEN INJECTOR -Follow up in 3 months virtually Miguel Ángel Hopson, MSN, TAN ROOM SUPERVISOR February 13, 2025 Referring Provider: SATHYA CAZARES [[id number]] Allergies As of Date: 02/13/2025 Noted Allergy Reaction PENICIL (more content not included)... Normal [facility] CNPNon 01-23-2025 CNPN Telephone ([employer]) ----- GUERRERO RAMOS ([id number]) 1980 F Date Time Provider Department 01/23/25 SATHYA CAZARES During your visit today, we recorded the following information about you: Allergies As of Date: 01/23/2025 Noted Allergy Reaction PENICILLINS 04/10/2024 2 - Rash Date Reviewed: 01/17/2025 Reviewed by: Radha Franco RN - Fully Assessed Prescriptions as of 01/23/2025 - docusate sodium (COLACE) 100 mg capsule Take 1 capsule by mouth two times a day for 7 days. - traZODone (DESYREL) 100 mg tablet Take 100 mg by mouth two times a day. - ALPRAZolam (XANAX) 0.25 mg tablet Take 0.25 mg by mouth at bedtime as needed. - levothyroxine 75 mcg cap Take 75 mcg by mouth daily before breakfast. - meclizine (ANTIVERT) 25 mg tab Take 25 mg by mouth three times a day. - amLODIPine (NORVASC) 2.5 mg tablet Take by mouth once daily. - ondansetron HCl (ZOFRAN ORAL) Take by mouth as needed. - insulin glargine,hum.rec.anlog (TOUJEO MAX U-300 SOLOSTAR SUBCUTANEOUS) Inject subcutaneously. - tolterodine (DETROL) 2 mg tablet Take 2 mg by mouth two times a day. - rosuvastatin (CRESTOR) 20 mg tablet Take 20 mg by mouth once daily. - sertraline (ZOLOFT) 50 mg tablet Take 50 mg by mouth once daily. - ergocalciferol 50,000 unit capsule (VITAMIN D2, DRISDOL) Take 50,000 Units by mouth one time a week. Problem List As Of Date 01/23/2025 Noted Resolved Class 3 severe obesity due to excess calories w*05/26/2024 Snoring [R06.83] 05/26/2024 HTN (hypertension) [I10] HLD (hyperlipidemia) [E78.5] CKD (chronic kidney disease) [N18.9] Hypothyroidism [E03.9] Hernia, incisional [K43.2] 01/12/2025 History of ventral hernia [Z87.19] 01/13/2025 S/P repair of ventral hernia [Z98.890, Z87.19] 01/14/2025 Acute post-operative pain [G89.18] 01/14/2025 Electrolyte imbalance [E87.8] 01/14/2025 Morbid obesity with BMI of 50.0-59.9, adult (HC*01/14/2025 Encounter Status:Closed by SATHYA CA[facility]ARES [facility]23/[facility] HNO ID: [id number] Author: JERAMIE FRANCO MD Service: General Surgery Author Type: Resident Type: Discharge Summary Filed: 01/24/2025 17:01 Note Text: ----- Attestation signed by Jeramie Franco MD at 01/24/2025 5:01 PM Jeramie Franco MD ----- GENERAL SURGERY DISCHARGE SUMMARY PATIENT NAME: Guerrero Ramos ADMISSION DATE: 01/13/2025 DISCHARGE DATE: 01/17/2025 ATTENDING PHYSICIAN: Jeramie Franco MD Code Status: Not on file Highest Readmission Risk Score: 17 The 30 day readmissions risk score is derived from an internally validated risk model which evaluates patient level characteristics, utilization history, medication orders and lab results up until the day of discharge. Patients with a score of 39 or above are considered highest risk for readmission. Specific patient level drivers will be listed at the bottom of the summary. REASON FOR HOSPITALIZATION: Elective hernia repair OPERATIONS DURING HOSPITALIZATION: 1. Open right myofascial advancement flap 2. Open left myofascial advancement flap 3. Repair of incarcerated incisional hernia PROCEDURES DURING HOSPITALIZATION: IV access Intubation for surgery Anesthesia administration HOSPITAL COURSE: Guerrero Ramos is a 44 yo F with morbid obesity (BMI 52), CKD (baseline scr 2.4), HTN, hypothyroidism who presented 01/13/25 for a bilateral TAR by Dr. Franco. The patient tolerated the procedure well, and surgery went as expected. See separate operative report for full OR details. The patient recovered in the PACU, and then was transferred to a [facility]. Hospital course as follows: 01/14- POD 1. Duncan removed. Started on bariatric DVT ppx dosing. PT/OT consulted. Advanced to CLD. 01/15- Passing flatus, advanced to full liquids in AM and GIS in PM. Transitioned to PO pain medications. 01/16- Tolerating GIS diet. Given suppository. Weaning O2. Planning for discharge home tomorrow. 01/17- Stable for discharge home. JENI x3 removed. Active Hospital Problems Diagnosis Date Noted S/P repair of ventral hernia 01/14/2025 Acute post-operative pain 01/14/2025 Electrolyte imbalance 01/14/2025 Morbid obesity with BMI of 50.0-59.9, adult (HCC) 01/14/2025 HTN (hypertension) Overview Note: Managed on amlodipine Hypothyroidism Resolved Hospital Problems No resolved problems to display. Transitions of Care Critical Issues: - Follow up in 2-4 weeks. LABS AND PROCEDURES PENDING AT DISCHARGE: No pending results. CONSULTING TEAMS DURING HOSPITALIZATION: None Treatment Team: Attending Provider: Jeramie Franco MD Primary Service: MULUGETA REA PATIENT CONDITION AT DISCHARGE: Stable DISCHARGE DISPOSITION: Home with family INFORMATION PROVIDED TO PATIENT: DCI DIET: Low soft-fiber diet: No fresh fruits, whole grains, foods difficult to digest, or vegetables (unless they are well-cooked) ACTIVITY: Lifting restricted to < 10 lbs for 4-6 weeks May shower, do not scrub incision No driving while on narcotics May walk and use stairs as tolerated WOUND/SURGICAL SITE CARE: None ALLERGIES Allergen Reactions Penicillins Rash DISCHARGE MEDICATION: Medication List START taking these medications acetaminophen 500 mg tablet Commonly known as: TYLENOL Take 2 tablets by mouth every 6 hours as needed for pain for up to 5 days. docusate sodium 100 mg capsule Commonly known as: COLACE Take 1 capsule by mouth two times a day for 7 days. oxyCODONE IR 5 mg immediate release tablet Commonly known as: ROXICODONE Take 1 tablet by mouth every 6 hours as needed for up to 5 days. CONTINUE taking these medications ALPRAZolam 0.25 mg tablet Commonly known as: XANAX amLODIPine 2.5 mg tablet Commonly known as: NORVASC ergocalciferol (vitamin D2) 50,000 unit capsule Commonly known as: DRISDOL levothyroxine 75 mcg Cap meclizine 25 mg Tab Commonly known as: ANTIVERT rosuvastatin 20 mg tablet Commonly known as: CRESTOR sertraline 50 mg tablet Commonly known as: ZOLOFT tolterodine 2 mg tablet Commonly known as: DETROL TOUJEO MAX U-300 SOLOSTAR SUBCUTANEOUS traZODone 100 mg tablet Commonly known as: DESYREL ZOFRAN ORAL STOP taking these medications Meloxicam 7.5 mg/5 mL Susp MYRBETRIQ 25 mg Tb24 Generic drug: mirabegron Where to Get Your Medications These medications were sent to [facility] [address] [place] [address] [address] [phone] [facility]ly [facility], [facility] [place] [id number] docusate sodium 100 mg capsule oxyCODONE IR 5 mg immediate release tablet You can get these medications from any pharmacy You don't need a prescription for these medications acetaminophen 500 mg tablet PLAN OF CARE: Plan of care discussed with Provider, RN, Patient and Care Management FUTURE APPOINTME (more content not included)... Normal [facility] THERAPY NTon 01-17-2025 THERAPY NT HNO ID: [id number] Author: JANIE ACUÑA, AIR BRUSH DECORATOR Service: ? Author Type: Respiratory Therapist Type: Therapy (PT/OT/Speech/Resp) Filed: 01/17/2025 11:26 Note Text: 01/17/25 1115 Procedures Procedure Type A-M Home Oxygen Qualification Test Home Oxygen Qualification Test $Home Oxygen Qualification Test $Performed Patient Currently On Home Oxygen No Baseline SpO2 at Rest on Room Air 92 SpO2 < or = to 88% at Rest on RA No Patient Ambulated on Room Air? Yes SpO2 < or = to 88% when Ambulating on Room Air No Lowest SpO2 while Ambulating on Room Air 90 Based on Medicare Guidelines Patient Does Not Qualify For home oxygen Total Time Spent for Home Oxygen Qualification Test 15 minutes RESPIRATORY THERAPY PROGRESS NOTE SERVICE DATE: 01/17/2025 SERVICE TIME: SIGNATURE: Janie Acuña RRT PATIENT NAME: Guerrero Ramos DATE: January 17, 2025 TIME: 11:26 AM PAGER/CONTACT #: Normal [facility] Basic metabolic 2000 panelon 01-16-2025 Anion gap [Moles/Vol] 9 mmol/L Normal 8-15 [facility] Comment on above: Order Comment: Speci men Type: BLOOD SPECIMENOrdering Facility: [facility] Address: [address] [place] [address] Performed By: #### 1 9123-9, 63148-4, 27704-28 ####[facility] LABCLIA [id number] [place] [address] [place] Calcium [Mass/Vol] 9.1 mg/dL Normal 8.5-10.2 [facility] Comment on above: Order Comment: Speci men Type: BLOOD SPECIMENOrdering Facility: [facility] Address: [address] [place] [address] Performed By: #### 1 9123-9, 55664-0, 27704-28 ####[facility] LABCLIA [id number] [place] [id number] [place] Chloride [Moles/Vol] 106 mmol/L Normal 98-107 [facility] Comment on above: Order Comment: Speci men Type: BLOOD SPECIMENOrdering Facility: [facility] Address: [address] [place] [address] Performed By: #### 1 9123-9, 60353-8, 277- ####[facility] LABCLIA [id number] [place] [id number] [place] CO2 [Moles/Vol] 25 mmol/L Normal 22-30 [facility] Comment on above: Order Comment: Speci men Type: BLOOD SPECIMENOrdering Facility: [facility] Address: [address] [place] [address] Performed By: #### 1 9123-9, 94650-4, 2776- ####[facility] LABIA [id number] [address] [address] [place] Creatinine [Mass/Vol] 2.46 mg/dL High 0.58-0.96 [facility] Comment on above: Order Comment: Speci men Type: BLOOD SPECIMENOrdering Facility: [facility] Address: [address] [place] [address] Performed By: #### 1 91239, , 2776-10 ####[facility] [id number] [place] [address] [place] Creatinine and Glomerular filtration rate.predicted panel (S/P/Bld) 24 mL/min/1.73m??? Low >=60 [facility] Comment on above: Order Comment: Speci men Type: BLOOD SPECIMENOrdering Facility: [facility] Address: [address] [place] [address] Result Comment: Flori mated Glomerular Filtration Rate (eGFR) is calculated using the 2020 CKD-EPI creatinine equation. This equation utilizes serum creatinine, sex, and age as parameters. The creatinine assay has traceable calibration to isotope dilution-mass spectrometry. Refer to KDIGO guidelines for clinical interpretation. In patients with unstable renal function, e.g. those with acute kidney injury, the eGFR may not accurately reflect actual GFR. Performed By: #### 1 9123-9, 81447-8, 2776-10 ####[facility] LABIA [id number] [address] [address] [place] Glucose [Mass/Vol] 229 mg/dL High 74-99 [facility] Comment on above: Order Comment: Speci men Type: BLOOD SPECIMENOrdering Facility: [facility] Address: [address] [place] [address] Result Comment: The [place] Diabetes [employer] (ADA) provides guidance for cutoff [...] Standards of Medical Care in Diabetes 2016, [place] [employer]. Diabetes Care. 2016.39(Suppl 1). Performed By: #### 1 9123-9, 04342-1, 2776- ####[facility] LABCLIA [id number] [place] [address] [place] Potassium [Moles/Vol] 4.0 mmol/L Normal 3.7-5.1 [facility] Comment on above: Order Comment: Jigneshi men Type: BLOOD SPECIMENOrdering Facility: [facility] Address: [address] [place] [address] Performed By: #### 1 9123-9, 10562-4, 2776-10 ####[facility] LABCLIA [id number] [place] [address] [place] Sodium [Moles/Vol] 140 mmol/L Normal 136-144 [facility] Comment on above: Order Comment: Speci men Type: BLOOD SPECIMENOrdering Facility: [facility] Address: [address] [place] [address] Performed By: #### 1 9123-9, 26228-0, 2776- ####[facility] LABCLIA [id number] [place] [address] [place] Urea nitrogen [Mass/Vol] 32 mg/dL High 7- [facility] Comment on above: Order Comment: Speci men Type: BLOOD SPECIMENOrdering Facility: [facility] Address: [address] [place] [address] Performed By: #### 1 9123-9, 48979-2, 2777-1 ####[facility] LABCLIA [id number] [place] [address] [place] CBC panel Auto (Bld)on 01-16 Erythrocyte distribution width (RBC) [Ratio] 15.4 % High 11.5-15.0 [facility] Comment on above: Order Comment: Speci men Type: BLOOD SPECIMENOrdering Facility: [facility] Address: [address] [place] [address] Performed By: #### 5 8410-2 ####[facility] LABCLIA [id number] [place] [address] [place] Hematocrit (Bld) [Volume fraction] 27.1 % Low 36.0-46.0 [facility] Comment on above: Order Comment: Speci men Type: BLOOD SPECIMENOrdering Facility: [facility] Address: [address] [place] [address] Performed By: #### 5 8410-2 ####[facility] LABCLIA [id number] [place] [address] [place] Hemoglobin (Bld) [Mass/Vol] 8.2 g/dL Low 11.5-15.5 [facility] Comment on above: Order Comment: Speci men Type: BLOOD SPECIMENOrdering Facility: [facility] Address: [address] [place] [address] Performed By: #### 5 8410-2 ####[facility] LABCLIA [id number] [facility] [place] [id number] [place] MCH (RBC) [Entitic mass] 24.9 pg Low 26.0-34.0 [facility] Comment on above: Order Comment: Speci men Type: BLOOD SPECIMENOrdering Facility: [facility] Address: [address] [place] [address] Performed By: #### 5 8410-2 ####[facility] LABIA [id number] [place] [address] [place] MCHC (RBC) [Mass/Vol] 30.3 g/dL Low 30.5-36.0 [facility] Comment on above: Order Comment: Speci men Type: BLOOD SPECIMENOrdering Facility: [facility] Address: [address] [place] [address] Performed By: #### 5 8410-2 ####[facility] LABIA [id number] [place] [address] [place] MCV (RBC) [Entitic vol] 82.4 fL Normal 80.0-100.0 [facility] Comment on above: Order Comment: Speci men Type: BLOOD SPECIMENOrdering Facility: [facility] Address: [address] [place] [address] Performed By: #### 5 8410-2 ####[facility] LABIA [id number] [place] [address] [place] Nucleated RBC (Bld) [#/Vol] 10*3/uL Normal <0.01 [facility] Comment on above: Order Comment: Speci men Type: BLOOD SPECIMENOrdering Facility: [facility] Address: [address] [place] [address] Performed By: #### 5 8410-2 ####[facility] LABIA [id number] [place] [address] [place] Platelet mean volume (Bld) [Entitic vol] 9.6 fL Normal 9.0-12.7 [facility] Comment on above: Order Comment: Speci men Type: BLOOD SPECIMENOrdering Facility: [facility] Address: [address] [place] [address] Performed By: #### 5 8410-2 ####[facility] LABCLIA [id number] [address] [address] [place] Platelets (Bld) [#/Vol] 218 10*3/uL Normal 150-400 [facility] Comment on above: Order Comment: Speci men Type: BLOOD SPECIMENOrdering Facility: [facility] Address: [address] [place] [address] Performed By: #### 5 8410-2 ####[facility] LABCLIA [id number] [address] [address] [place] RBC (Bld) [#/Vol] 3.29 10*6/uL Low 3.90-5.20 [facility] Comment on above: Order Comment: Speci men Type: BLOOD SPECIMENOrdering Facility: [facility] Address: [address] [place] [address] Performed By: #### 5 8410-2 ####[facility] LABIA [id number] [place] [address] [place] WBC (Bld) [#/Vol] 6.18 10*3/uL Normal 3.70-11.00 [facility] Comment on above: Order Comment: Speci men Type: BLOOD SPECIMENOrdering Facility: [facility] Address: [address] [place] [address] Performed By: #### 5 8410-2 ####[facility] LABIA [id number] [place] [id number] [place] Magnesium SerPl-mCncon 01-16 Magnesium [Mass/Vol] 1.9 mg/dL Normal 1.7-2.3 [facility] Comment on above: Order Comment: Speci men Type: BLOOD SPECIMENOrdering Facility: [facility] Address: [address] [place] [address] Performed By: #### 1 9123-9, 55207-4, 2777-1 ####[facility] LABCLIA [id number] [place] [id number] [place] Phosphate SerPl-mCncon 01-16 Phosphate [Mass/Vol] 2.4 mg/dL Low 2.7-4.8 [facility] Comment on above: Order Comment: Speci men Type: BLOOD SPECIMENOrdering Facility: [facility] Address: [address] [place] [address] Performed By: #### 1 9123-9, 74340-0, 2777-1 ####[facility] LABCLIA [id number] [address] [facility] THERAPY NTon 01-16-2025 THERAPY NT HNO ID: [id number] Author: JASON KAUR, PT Service: Physical Therapy Author Type: Physical Therapist Type: Therapy (PT/OT/Speech/Resp) Filed: 01/16/2025 13:57 Note Text: Physical Therapy Treatment Summary SERVICE DATE: 01/16/2025 SERVICE TIME: 1330 to 1353 ROOM: [place] [address] PT 6 Clicks Score: 22 DISCHARGE RECOMMENDATIONS Home Recommended Discharge Disposition Comments: pending progression with mobility and stairs training Anticipated Discharge Needs: Physical Assist at Home Physical Assist at Home for: Transportation, Cleaning, Laundry, Shopping Recommended Discharge Equipment: To Be Determined ASSESSMENT Response to Therapy Interventions: Good Participation in Activities Patient tolerated therapy visit well. Patient completed ~150ft ambulation bout with FWW and Supervision. Patient progressed to stair training this date which was completed at Supervision level. PT reviewed log roll bed mobility technique with patient which was performed well. PRECAUTIONS Abdominal CURRENT HOSPITAL COURSE Admitted on 01/13 for Open right myofascial advancement flap, open left myofascial advancement flap, Repair of incarcerated incisional hernia Relevant Past Medical History: 44 yo female with PMH of ventral hernia, HTN, hypothyroidism, electrolyte imbalance HOME LIVING Patient Lives With: Family (mom and dad) Assistance Available: 24-Hour Entry To Home: Stairs, With Rail Number Of Stairs Into Home: 3 Number Of Stairs To Bed/Bath: stays on the first floor Tub/Shower Type: tub shower with a grab bar Laundry: family can assist Equipment Owned: Rollator PRIOR FUNCTIONAL LEVEL Within Functional Limits FABRIC NORMALIZER, patient IND with ADLs and iADLs. 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 Lives with parents who can assist post op. Lesvia has a rollator at home that she used PRN prior to surgery SUBJECTIVE Patient agreeable to PT. THERAPY DIAGNOSIS Reduced mobility-other TREATMENT INTERVENTIONS Therapeutic Activity (17799), Gait Training (04555) Timed Code Treatment (minutes): 23 Skilled Treatment Time (minutes): 23 TRAINING AND EDUCATION PROVIDED Assistive Device Use, Bed Mobility, Discharge Planning, Energy Conservation, Equipment, Falls Prevention, Home Safety THERAPEUTIC SKILLS USED Cuing Tactile, Cuing Verbal, Movement Facilitation, Physical Assist FUNCTIONAL STATUS Bed Mobility Rolling: Supervision Supine To Sit: Supervision Sit to Supine: Supervision Scooting: Moderate Assistance Transfers Sit To Stand: Supervision Stand To Sit: Supervision Bed to Chair Gait Supervision Gait Device: Wheeled Walker General Deviations/Observations: Ramandeep decreased Gait Distance (feet): 150ft Stairs Supervision Stairs Device: Rail Number of Stairs: 3 GOALS Patient will demonstrate progress with functional mobility to allow safe discharge to home with available support and/or physical assistance. Rehab Potential: Excellent Progress Toward Goals: Progressing as expected PLAN PT Frequency: 3 Times Per Week Treatment Interventions: Education, Strengthening, Functional Mobility Training Plan for Next Visit: Gait Training, Stair Training SIGNATURE: Jason Kaur PT PATIENT NAME: Guerrero Ramos DATE: January 16, 2025 TIME: 1:57 PM Normal [facility] Basic metabolic 2000 panelon 01-15-2025 Anion gap [Moles/Vol] 9 mmol/L Normal 8-15 [facility] Comment on above: Order Comment: Speci men Type: BLOOD SPECIMENOrdering Facility: [facility] Address: [address] [place] [address] Performed By: #### 2 777-1, 71650-1, 03424-0 ####[facility] LABCLIA [id number] [place] [address] [place] Calcium [Mass/Vol] 8.9 mg/dL Normal 8.5-10.2 [facility] Comment on above: Order Comment: Speci men Type: BLOOD SPECIMENOrdering Facility: [facility] Address: [address] [place] [address] Performed By: #### 2 777-1, , ####[facility] LABCLIA [id number] [address] [address] [place] Chloride [Moles/Vol] 104 mmol/L Normal 98-107 [facility] Comment on above: Order Comment: Speci men Type: BLOOD SPECIMENOrdering Facility: [facility] Address: [address] [place], [place] [address] Performed By: #### 2 777-1, , ####[facility] LABCLIA [id number] [place] [id number] [place] CO2 [Moles/Vol] 24 mmol/L Normal 22-30 [facility] Comment on above: Order Comment: Speci men Type: BLOOD SPECIMENOrdering Facility: [facility] Address: [address] [place], [place] [address] Performed By: #### 2 777-1, , ####[facility] LABIA [id number] [place] [id number] [place] Creatinine [Mass/Vol] 2.46 mg/dL High 0.58-0.96 [facility] Comment on above: Order Comment: Speci men Type: BLOOD SPECIMENOrdering Facility: [facility] Address: [address] [place], [place] [address] Performed By: #### 2 777-1, , ####[facility] LABIA [id number] [address] [address] [place] Creatinine and Glomerular filtration rate.predicted panel (S/P/Bld) 24 mL/min/1.73m??? Low >=60 [facility] Comment on above: Order Comment: Speci men Type: BLOOD SPECIMENOrdering Facility: [facility] Address: [address] [place] [address] Result Comment: Flori mated Glomerular Filtration Rate (eGFR) is calculated using the 2020 CKD-EPI creatinine equation. This equation utilizes serum creatinine, sex, and age as parameters. The creatinine assay has traceable calibration to isotope dilution-mass spectrometry. Refer to KDIGO guidelines for clinical interpretation. In patients with unstable renal function, e.g. those with acute kidney injury, the eGFR may not accurately reflect actual GFR. Performed By: #### 2 777-1, 27559-0, ####[facility] LABCLIA [id number] [address] [address] [place] Glucose [Mass/Vol] 190 mg/dL High 74-99 [facility] Comment on above: Order Comment: Speci men Type: BLOOD SPECIMENOrdering Facility: [facility] Address: [address] [place] [address] Result Comment: The [place] [employer] (ADA) provides guidance for cutoff [...] Standards of Medical Care in Diabetes 2016, [place] [employer]. Diabetes Care. 2016.39(Suppl 1). Performed By: #### 2 777-1, 75263-2, ####[facility] LABCLIA [id number] [address] [address] [place] Potassium [Moles/Vol] 4.3 mmol/L Normal 3.7-5.1 [facility] Comment on above: Order Comment: Speci men Type: BLOOD SPECIMENOrdering Facility: [facility] Address: [address] [place] [id number] Performed By: #### 2 777-1, 49793-2, ####[facility] LABCLIA [id number] [address] [address] [place] Sodium [Moles/Vol] 137 mmol/L Normal 136-144 [facility] Comment on above: Order Comment: Speci men Type: BLOOD SPECIMENOrdering Facility: [facility] Address: [address] [place] [address] Performed By: #### 2 777-1, 09528-6, ####[facility] LABIA [id number] [place] [address] [place] Urea nitrogen [Mass/Vol] 33 mg/dL High 7-21 [facility] Comment on above: Order Comment: Speci men Type: BLOOD SPECIMENOrdering Facility: [facility] Address: [address] [place] [address] Performed By: #### 2 777-1, 52488-4, ####[facility] LABIA [id number] [place] [id number] [place] CBC panel Auto (Bld)on 01-15 Erythrocyte distribution width (RBC) [Ratio] 15.2 % High 11.5-15.0 [facility] Comment on above: Order Comment: Speci men Type: BLOOD SPECIMENOrdering Facility: [facility] Address: [address] [place] [address] Performed By: #### 5 8410-2 ####[facility] LABIA [id number] [address] [address] [place] Hematocrit (Bld) [Volume fraction] 29.0 % Low 36.0-46.0 [facility] Comment on above: Order Comment: Speci men Type: BLOOD SPECIMENOrdering Facility: [facility] Address: [address] [place] [address] Performed By: #### 5 8410-2 ####[facility] LABIA [id number] [place] [address] [place] Hemoglobin (Bld) [Mass/Vol] 9.0 g/dL Low 11.5-15.5 [facility] Comment on above: Order Comment: Speci men Type: BLOOD SPECIMENOrdering Facility: [facility] Address: [address] [place] [address] Performed By: #### 5 8410-2 ####[facility] LABIA [id number] [place] [address] [place] MCH (RBC) [Entitic mass] 25.4 pg Low 26.0-34.0 [facility] Comment on above: Order Comment: Speci men Type: BLOOD SPECIMENOrdering Facility: [facility] Address: [address] [place] [address] Performed By: #### 5 8410-2 ####[facility] [id number] [place] [address] [place] MCHC (RBC) [Mass/Vol] 31.0 g/dL Normal 30.5-36.0 [facility] Comment on above: Order Comment: Speci men Type: BLOOD SPECIMENOrdering Facility: [facility] Address: [address] [place] [address] Performed By: #### 5 8410-2 ####[facility] LABIA [id number] [place] [address] [place] MCV (RBC) [Entitic vol] 81.9 fL Normal 80.0-100.0 [facility] Comment on above: Order Comment: Speci men Type: BLOOD SPECIMENOrdering Facility: [facility] Address: [address] [place] [address] Performed By: #### 5 8410-2 ####[facility] [id number] [place] [address] [place] Nucleated RBC (Bld) [#/Vol] 10*3/uL Normal <0.01 [facility] Comment on above: Order Comment: Speci men Type: BLOOD SPECIMENOrdering Facility: [facility] Address: [address] [place] [address] Performed By: #### 5 8410-2 ####[facility] LABCLIA [id number] [place] [address] [place] Platelet mean volume (Bld) [Entitic vol] 9.9 fL Normal 9.0-12.7 [facility] Comment on above: Order Comment: Speci men Type: BLOOD SPECIMENOrdering Facility: [facility] Address: [address] [place] [address] Performed By: #### 5 8410-2 ####[facility] LABCLIA [id number] [place] [address] [place] Platelets (Bld) [#/Vol] 222 10*3/uL Normal 150-400 [facility] Comment on above: Order Comment: Speci men Type: BLOOD SPECIMENOrdering Facility: [facility] Address: [address] [place] [address] Performed By: #### 5 8410-2 ####[facility] LABCLIA [id number] [place] [address] [place] RBC (Bld) [#/Vol] 3.54 10*6/uL Low 3.90-5.20 [facility] Comment on above: Order Comment: Speci men Type: BLOOD SPECIMENOrdering Facility: [facility] Address: [address] [place] [address] Performed By: #### 5 8410-2 ####[facility] LABCLIA [id number] [place] [address] [place] WBC (Bld) [#/Vol] 7.82 10*3/uL Normal 3.70-11.00 [facility] Comment on above: Order Comment: Speci men Type: BLOOD SPECIMENOrdering Facility: [facility] Address: [address] [place] [address] Performed By: #### 5 8410-2 ####[facility] LABIA [id number] [place] [id number] [facility] Magnesium SerPl-ncon 01-15 Magnesium [Mass/Vol] 1.8 mg/dL Normal 1.7-2.3 [facility] Comment on above: Order Comment: Speci men Type: BLOOD SPECIMENOrdering Facility: [facility] Address: [address] [place] [address] Performed By: #### 2 777-1, 84538-4, 02563-0 ####[facility] [id number] [place] [id number] [facility] Phosphate SerPl-ncon 01-15 Phosphate [Mass/Vol] 2.9 mg/dL Normal 2.7-4.8 [facility] Comment on above: Order Comment: Speci men Type: BLOOD SPECIMENOrdering Facility: [facility] Address: [address] [place] [address] Performed By: #### 2 777-1, 81932-7, ####[facility] [id number] [place] [id number] [facility] THERAPY NTon 01-15-2025 THERAPY NT HNO ID: [id number] Author: JACKSON MAC OTR/L Service: Occupational Therapy Author Type: Occupational Therapist Type: Therapy (PT/OT/Speech/Resp) Filed: 01/15/2025 14:14 Note Text: OCCUPATIONAL THERAPY MISSED VISIT SERVICE DATE: 01/15/2025 SERVICE TIME: 1413 ROOM: [place] [address] Patient not seen due to Clinical Appropriateness. No skilled needs. SIGNATURE: GENO Bright PATIENT NAME: Guerrero Ramos DATE: January 15, 2025 TIME: 2:14 PM Normal [facility] THERAPY NT HNO ID: [id number] Author: TASIA ROWLEY, PT Service: Physical Therapy Author Type: Physical Therapist Type: Therapy (PT/OT/Speech/Resp) Filed: 01/15/2025 12:19 Note Text: Physical Therapy Evaluation Summary SERVICE DATE: 01/15/2025 SERVICE TIME: 1037 to 1101 ROOM: [place] [address] PT 6 Clicks Score: 19 DISCHARGE RECOMMENDATIONS Home Recommended Discharge Disposition Comments: pending progression with mobility and stairs training Anticipated Discharge Needs: Physical Assist at Home Physical Assist at Home for: Transportation, Cleaning, Laundry, Shopping Recommended Discharge Equipment: To Be Determined ASSESSMENT Response to Therapy Interventions: Good Participation in Activities RN approves of PT session. Patient able to ambulate to bathroom and in hallway with PT with close SBA for safety. Patient preferring to use IV pole vs walker this date. Will need to perform stairs training prior to DC home. PRECAUTIONS Abdominal, Fall Risk CURRENT HOSPITAL COURSE Admitted on 01/13 for Open right myofascial advancement flap, open left myofascial advancement flap, Repair of incarcerated incisional hernia Relevant Past Medical History: 44 yo female with PMH of ventral hernia, HTN, hypothyroidism, electrolyte imbalance HOME LIVING Patient Lives With: Family (mom and dad) Assistance Available: 24-Hour Entry To Home: Stairs, With Rail Number Of Stairs Into Home: 3 Number Of Stairs To Bed/Bath: stays on the first floor Tub/Shower Type: tub shower with a grab bar Laundry: family can assist Equipment Owned: Rollator PRIOR FUNCTIONAL LEVEL Within Functional Limits FABRIC NORMALIZER, patient IND with ADLs and iADLs. 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 Lives with parents who can assist post op. Lesvia has a rollator at home that she used PRN prior to surgery SUBJECTIVE Agreeable to eval THERAPY DIAGNOSIS Reduced mobility-other TREATMENT INTERVENTIONS Evaluation, Therapeutic Activity (32696) Timed Code Treatment (minutes): 9 Skilled Treatment Time (minutes): 24 TRAINING AND EDUCATION PROVIDED Advanced Balance Activities, Anatomy and Impact on Deficits, Assistive Device Use, Bed Mobility, Discharge Planning, Equipment, Exercise Program, Falls Prevention, Handout Issued, Modalities, Precautions/Restrictions, Pre-gait Activities, Sitting Balance, Standing Balance, Transfers THERAPEUTIC SKILLS USED Cuing Tactile, Cuing Verbal, Cuing Visual, Cues for Sequencing/Proper Technique for Activity, Activity Dosing, Management of Critical Lines, Tubes and/or Drains, Physical Assist, Teach-Back for Education FUNCTIONAL STATUS Bed Mobility Supine To Sit: Minimal Assistance Sit to Supine: Contact Guard Assistance Scooting: Moderate Assistance Transfers Sit To Stand: Stand By Assistance Stand To Sit: Stand By Assistance Bed to Chair Gait Stand By Assistance Gait Device: Wheeled Walker General Deviations/Observations: Raamndeep decreased, Flexed trunk posture, Path Deviation Gait Distance (feet): 150 feet Stairs GOALS Patient will demonstrate progress with functional mobility to allow safe discharge to home with available support and/or physical assistance. Rehab Potential: Excellent PLAN PT Frequency: 3 Times Per Week Treatment Interventions: Education, Strengthening, Functional Mobility Training Plan for Next Visit: Stair Training SIGNATURE: Tasia Rowlye PT PATIENT NAME: Guerrero Ramos DATE: January 15, 2025 TIME: 12:19 PM Normal [facility] Basic metabolic 2000 panelon 01-14-2025 Anion gap [Moles/Vol] 9 mmol/L Normal 8-15 [facility] Comment on above: Order Comment: Speci men Type: BLOOD SPECIMENOrdering Facility: [facility] Address: [address] [place] [address] Performed By: #### 1 988-5, 2777-1, , 05342-3 ####[facility] LABCLIA [id number] [place] [id number] [place] Calcium [Mass/Vol] 9.1 mg/dL Normal 8.5-10.2 [facility] Comment on above: Order Comment: Speci men Type: BLOOD SPECIMENOrdering Facility: [facility] Address: [address] [place] [address] Performed By: #### 1 988-5, 2777-1, , 89720-8 ####[facility] LABCLIA [id number] [address] [address] [place] Chloride [Moles/Vol] 104 mmol/L Normal 98-107 [facility] Comment on above: Order Comment: Speci men Type: BLOOD SPECIMENOrdering Facility: [facility] Address: [address] [place], [place] [address] Performed By: #### 1 988-5, 2777-1, , 96650-2 ####[facility] LABIA [id number] [address] [address] [place] CO2 [Moles/Vol] 23 mmol/L Normal 22-30 [facility] Comment on above: Order Comment: Speci men Type: BLOOD SPECIMENOrdering Facility: [facility] Address: [address] [place], [place] [address] Performed By: #### 1 988-5, 2777-1, , 26324-7 ####[facility] LABIA [id number] [address] [address] [place] Creatinine [Mass/Vol] 2.52 mg/dL High 0.58-0.96 [facility] Comment on above: Order Comment: Speci men Type: BLOOD SPECIMENOrdering Facility: [facility] Address: [address] [place], [place] [address] Performed By: #### 1 988-5, 2777-1, , 29413-0 ####[facility] [id number] [address] [address] [place] Creatinine and Glomerular filtration rate.predicted panel (S/P/Bld) 23 mL/min/1.73m??? Low >=60 [facility] Comment on above: Order Comment: Speci men Type: BLOOD SPECIMENOrdering Facility: [facility] Address: [address] [place] [address] Result Comment: Flori mated Glomerular Filtration Rate (eGFR) is calculated using the 2020 CKD-EPI creatinine equation. This equation utilizes serum creatinine, sex, and age as parameters. The creatinine assay has traceable calibration to isotope dilution-mass spectrometry. Refer to KDIGO guidelines for clinical interpretation. In patients with unstable renal function, e.g. those with acute kidney injury, the eGFR may not accurately reflect actual GFR. Performed By: #### 1 988-5, 2777-, , 57089-5 ####[facility] LABCLIA [id number] [address] [address] [place] Glucose [Mass/Vol] 169 mg/dL High 74-99 [facility] Comment on above: Order Comment: Speci sharan Type: BLOOD SPECIMENOrdering Facility: [facility] Address: [address] [place] [address] Result Comment: The [place] [employer] (ADA) provides guidance for cutoff [...] Standards of Medical Care in Diabetes 2016, [place] [employer]. Diabetes Care. 2016.39(Suppl 1). Performed By: #### 1 988-5, 2777-, , 94286-0 ####[facility] LABCLIA [id number] [address] [address] [place] Potassium [Moles/Vol] 3.9 mmol/L Normal 3.7-5.1 [facility] Comment on above: Order Comment: Speci men Type: BLOOD SPECIMENOrdering Facility: [facility] Address: [address] [place] [address] Performed By: #### 1 988-5, 2777-, , 06292-7 ####[facility] LABCLIA [id number] [address] [address] [place] Sodium [Moles/Vol] 136 mmol/L Normal 136-144 [facility] Comment on above: Order Comment: Speci men Type: BLOOD SPECIMENOrdering Facility: [facility] Address: [address] [place] [address] Performed By: #### 1 988-5, 2777-1, , 95228-3 ####[facility] LABCLIA [id number] [address] [address] [place] Urea nitrogen [Mass/Vol] 29 mg/dL High 7-21 [facility] Comment on above: Order Comment: Speci men Type: BLOOD SPECIMENOrdering Facility: [facility] Address: [address] [place] [address] Performed By: #### 1 988-5, 2777-1, , 15565-0 ####[facility] LABCLIA [id number] [address] [address] [place] Anion gap [Moles/Vol] 10 mmol/L Normal 8-15 [facility] Comment on above: Order Comment: Speci men Type: BLOOD SPECIMENOrdering Facility: [facility] Address: [address] [place], [place] [address] Performed By: #### 2 4321-2, HSTNT ####[facility] LABCLIA [id number] [address] [address] [place] Calcium [Mass/Vol] 9.5 mg/dL Normal 8.5-10.2 [facility] Comment on above: Order Comment: Speci men Type: BLOOD SPECIMENOrdering Facility: [facility] Address: [address] [place] [id number] Performed By: #### 2 4321-2, HSTNT ####[facility] LABCLIA [id number] [address] [address] [place] Chloride [Moles/Vol] 104 mmol/L Normal 98-107 [facility] Comment on above: Order Comment: Speci men Type: BLOOD SPECIMENOrdering Facility: [facility] Address: [address] [place] [address] Performed By: #### 2 4321-2, HSTNT ####[facility] LABCLIA [id number] [place] [id number] [place] CO2 [Moles/Vol] 24 mmol/L Normal 22-30 [facility] Comment on above: Order Comment: Speci men Type: BLOOD SPECIMENOrdering Facility: [facility] Address: [address] [place] [address] Performed By: #### 2 4321-2, HSTNT ####[facility] LABIA [id number] [place] [address] [place] Creatinine [Mass/Vol] 2.61 mg/dL High 0.58-0.96 [facility] Comment on above: Order Comment: Speci men Type: BLOOD SPECIMENOrdering Facility: [facility] Address: [address] [place] [address] Performed By: #### 2 4321-2, HSTNT ####[facility] LABIA [id number] [address] STATES OF [facility] Creatinine and Glomerular filtration rate.predicted panel (S/P/Bld) 22 mL/min/1.73m??? Low >=60 [facility] Comment on above: Order Comment: Speci men Type: BLOOD SPECIMENOrdering Facility: [facility] Address: [address] [place] [address] Result Comment: Flori mated Glomerular Filtration Rate (eGFR) is calculated using the 2020 CKD-EPI creatinine equation. This equation utilizes serum creatinine, sex, and age as parameters. The creatinine assay has traceable calibration to isotope dilution-mass spectrometry. Refer to KDIGO guidelines for clinical interpretation. In patients with unstable renal function, e.g. those with acute kidney injury, the eGFR may not accurately reflect actual GFR. Performed By: #### 2 4321-2, HSTNT ####[facility] LABCLIA [id number] [place] [id number] [place] Glucose [Mass/Vol] 175 mg/dL High 74-99 [facility] Comment on above: Order Comment: Speci men Type: BLOOD SPECIMENOrdering Facility: [facility] Address: [address] [place] [address] Result Comment: The [place] Diabetes Association (ADA) provides guidance for cutoff [...] Standards of Medical Care in Diabetes 2016, [place] [employer]. Diabetes Care. 2016.39(Suppl 1). Performed By: #### 2 4321-2, HSTNT ####[facility] LABCLIA [id number] [place] [address] [place] Potassium [Moles/Vol] 4.6 mmol/L Normal 3.7-5.1 [facility] Comment on above: Order Comment: Speci men Type: BLOOD SPECIMENOrdering Facility: [facility] Address: [address] [place] [address] Performed By: #### 2 4321-2, HSTNT ####[facility] LABCLIA [id number] [place] [address] [place] Sodium [Moles/Vol] 138 mmol/L Normal 136-144 [facility] Comment on above: Order Comment: Speci men Type: BLOOD SPECIMENOrdering Facility: [facility] Address: [address] [place] [address] Performed By: #### 2 4321-2, HSTNT ####[facility] LABCLIA [id number] [place] [address] [place] Urea nitrogen [Mass/Vol] 31 mg/dL High 7-21 [facility] Comment on above: Order Comment: Speci men Type: BLOOD SPECIMENOrdering Facility: [facility] Address: [address] [place] [address] Performed By: #### 2 4321-2, HSTNT ####[facility] LABCLIA [id number] [place] [address] [place] CBC W Auto Differential pane l (Bld)on 01-14-2025 Basophils (Bld) [#/Vol] 0.03 10*3/uL Normal <0.11 [facility] Comment on above: Order Comment: Speci men Type: BLOOD SPECIMENOrdering Facility: [facility] Address: [address] [place] [address] Performed By: #### 5 7021-8 ####[facility] LABCLIA [id number] [place] [address] [place] Basophils/100 WBC (Bld) 0.4 % Normal [facility] Comment on above: Order Comment: Speci men Type: BLOOD SPECIMENOrdering Facility: [facility] Address: [address] [place] [address] Performed By: #### 5 7021-8 ####[facility] LABCLIA [id number] [place] [address] [place] Differential cell count method Nom (Bld) Auto Normal [facility] Comment on above: Order Comment: Speci men Type: BLOOD SPECIMENOrdering Facility: [facility] Address: [address] [place] [address] Performed By: #### 5 7021-8 ####[facility] LABCLIA [id number] [place] [address] [place] Eosinophils (Bld) [#/Vol] 0.08 10*3/uL Normal <0.46 [facility] Comment on above: Order Comment: Speci men Type: BLOOD SPECIMENOrdering Facility: [facility] Address: [address] [place] [address] Performed By: #### 5 7021-8 ####[facility] LABIA [id number] [place] [address] [place] Eosinophils/100 WBC (Bld) 1.0 % Normal [facility] Comment on above: Order Comment: Speci men Type: BLOOD SPECIMENOrdering Facility: [facility] Address: [address] [place] [address] Performed By: #### 5 7021-8 ####[facility] LABIA [id number] [place] [address] [place] Erythrocyte distribution width (RBC) [Ratio] 15.2 % High 11.5-15.0 [facility] Comment on above: Order Comment: Speci men Type: BLOOD SPECIMENOrdering Facility: [facility] Address: [address] [place] [address] Performed By: #### 5 7021-8 ####[facility] LABIA [id number] [place] [address] [place] Hematocrit (Bld) [Volume fraction] 29.8 % Low 36.0-46.0 [facility] Comment on above: Order Comment: Speci men Type: BLOOD SPECIMENOrdering Facility: [facility] Address: [address] [place] [address] Performed By: #### 5 7021-8 ####[facility] LABIA [id number] [place] [address] [place] Hemoglobin (Bld) [Mass/Vol] 9.1 g/dL Low 11.5-15.5 [facility] Comment on above: Order Comment: Speci men Type: BLOOD SPECIMENOrdering Facility: [facility] Address: [address] [place] [address] Performed By: #### 5 7021-8 ####[facility] LABIA [id number] [place] [address] [place] Immature granulocytes (Bld) [#/Vol] 0.05 10*3/uL Normal <0.10 [facility] Comment on above: Order Comment: Speci men Type: BLOOD SPECIMENOrdering Facility: [facility] Address: [address] [place] [address] Performed By: #### 5 7021-8 ####[facility] LABCLIA [id number] [place] [address] [place] Immature granulocytes/100 WBC (Bld) 0.6 % Normal [facility] Comment on above: Order Comment: Speci men Type: BLOOD SPECIMENOrdering Facility: [facility] Address: [address] [place] [address] Performed By: #### 5 7021-8 ####[facility] LABCLIA [id number] [place] [address] [place] Lymphocytes (Bld) [#/Vol] 1.21 10*3/uL Normal 1.00-4.00 [facility] Comment on above: Order Comment: Speci men Type: BLOOD SPECIMENOrdering Facility: [facility] Address: [address] [place] [address] Performed By: #### 5 7021-8 ####[facility] LABCLIA [id number] [place] [address] [place] Lymphocytes/100 WBC (Bld) 14.9 % Normal [facility] Comment on above: Order Comment: Speci men Type: BLOOD SPECIMENOrdering Facility: [facility] Address: [address] [place] [address] Performed By: #### 5 7021-8 ####[facility] LABCLIA [id number] [place] [address] [place] MCH (RBC) [Entitic mass] 25.3 pg Low 26.0-34.0 [facility] Comment on above: Order Comment: Speci men Type: BLOOD SPECIMENOrdering Facility: [facility] Address: [address] [place] [address] Performed By: #### 5 7021-8 ####[facility] LABCLIA [id number] [place] [address] [place] MCHC (RBC) [Mass/Vol] 30.5 g/dL Normal 30.5-36.0 [facility] Comment on above: Order Comment: Speci men Type: BLOOD SPECIMENOrdering Facility: [facility] Address: [address] [place] [address] Performed By: #### 5 7021-8 ####[facility] LABCLIA [id number] [place] [address] [place] MCV (RBC) [Entitic vol] 82.8 fL Normal 80.0-100.0 [facility] Comment on above: Order Comment: Speci men Type: BLOOD SPECIMENOrdering Facility: [facility] Address: [address] [place] [address] Performed By: #### 5 7021-8 ####[facility] LABIA [id number] [place] [address] [place] Monocytes (Bld) [#/Vol] 0.52 10*3/uL Normal <0.87 [facility] Comment on above: Order Comment: Speci men Type: BLOOD SPECIMENOrdering Facility: [facility] Address: [address] [place] [address] Performed By: #### 5 7021-8 ####[facility] LABCLIA [id number] [place] [address] [place] Monocytes/100 WBC (Bld) 6.4 % Normal [facility] Comment on above: Order Comment: Speci men Type: BLOOD SPECIMENOrdering Facility: [facility] Address: [address] [place] [address] Performed By: #### 5 7021-8 ####[facility] LABCLIA [id number] [address] [address] [place] Neutrophils (Bld) [#/Vol] 6.21 10*3/uL Normal 1.45-7.50 [facility] Comment on above: Order Comment: Speci men Type: BLOOD SPECIMENOrdering Facility: [facility] Address: [address] [place] [address] Performed By: #### 5 7021-8 ####[facility] LABCLIA [id number] [place] [address] [place] Neutrophils/100 WBC (Bld) 76.7 % Normal [facility] Comment on above: Order Comment: Speci men Type: BLOOD SPECIMENOrdering Facility: [facility] Address: [address] [place] [address] Performed By: #### 5 7021-8 ####[facility] LABCLIA [id number] [place] [address] [place] Nucleated RBC (Bld) [#/Vol] 10*3/uL Normal <0.01 [facility] Comment on above: Order Comment: Speci men Type: BLOOD SPECIMENOrdering Facility: [facility] Address: [address] [place] [address] Performed By: #### 5 7021-8 ####[facility] LABCLIA [id number] [place] [address] [place] Nucleated RBC/100 WBC (Bld) [Ratio] 0.0 /100 WBC Normal [facility] Comment on above: Order Comment: Speci men Type: BLOOD SPECIMENOrdering Facility: [facility] Address: [address] [place] [address] Performed By: #### 5 7021-8 ####[facility] LABCLIA [id number] [address], [facility] [place] Platelet mean volume (Bld) [Entitic vol] 9.5 fL Normal 9.0-12.7 [facility] Comment on above: Order Comment: Speci men Type: BLOOD SPECIMENOrdering Facility: [facility] Address: [address] [place] [address] Performed By: #### 5 7021-8 ####[facility] LABCLIA [id number] [place] [address] [place] Platelets (Bld) [#/Vol] 197 10*3/uL Normal 150-400 [facility] Comment on above: Order Comment: Speci men Type: BLOOD SPECIMENOrdering Facility: [facility] Address: [address] [place] [address] Performed By: #### 5 7021-8 ####[facility] LABCLIA [id number] [place] [address] [place] RBC (Bld) [#/Vol] 3.60 10*6/uL Low 3.90-5.20 [facility] Comment on above: Order Comment: Speci men Type: BLOOD SPECIMENOrdering Facility: [facility] Address: [address] [place] [address] Performed By: #### 5 7021-8 ####[facility] LABCLIA [id number] [place] [address] [place] WBC (Bld) [#/Vol] 8.10 10*3/uL Normal 3.70-11.00 [facility] Comment on above: Order Comment: Speci men Type: BLOOD SPECIMENOrdering Facility: [facility] Address: [address] [place] [address] Performed By: #### 5 7021-8 ####[facility] LABCLIA [id number] [place] [address] [place] CRP SerPl-mCncon 01-14-2025 CRP [Mass/Vol] 19.6 mg/dL High <0.9 [facility] Comment on above: Order Comment: Speci men Type: BLOOD SPECIMENOrdering Facility: [facility] Address: [address] [place] [address] Performed By: #### 1 988-5, 2777-1, , 14015-5 ####[facility] LABCLIA [id number] [place] [id number] [place] HIGH SENSITIVITY TROPONIN To n 01-14-2025 Troponin T.cardiac High sensitivity method [Mass/Vol] 8 ng/L Normal <12 [facility] Comment on above: Order Comment: Speci men Type: BLOOD SPECIMENOrdering Facility: [facility] Address: [address] [place] [address] Performed By: #### 2 4321-2, HSTNT ####[facility] LABIA [id number] [place] [id number] [place] Magnesium SerPl-ncon 01-14 Magnesium [Mass/Vol] 1.8 mg/dL Normal 1.7-2.3 [facility] Comment on above: Order Comment: Speci men Type: BLOOD SPECIMENOrdering Facility: [facility] Address: [address] [place] [address] Performed By: #### 1 988-5, 2777, , 47105-2 ####[facility] LABIA [id number] [place] [id number] [place] Phosphate SerPl-mCncon 01-14 Phosphate [Mass/Vol] 3.3 mg/dL Normal 2.7-4.8 [facility] Comment on above: Order Comment: Speci men Type: BLOOD SPECIMENOrdering Facility: [facility] Address: [address] [place] [address] Performed By: #### 1 988-5, 2777-1, , ####[facility] LABCLIA [id number] [place] [id number] [place] ANES POSTPROC EVALon 025 ANES POSTPROC EVAL HNO ID: [id number] Author: DRAKE HAGEN MD Service: ? Author Type: Anesthesiologist Type: Anesthesia Postprocedure Evaluation Filed: 01/13/2025 13:27 Note Text: POST ANESTHESIA EVALUATION NOTE : 1980 Procedure Summary Date: 01/13/25 Room / Location: [address] [facility] Anesthesia Start: 720 Anesthesia Stop: 1058 Procedure: HERNIORRHAPHY VENTRAL RECURRENT REDUCIBLE GREATER THAN 10cm (Abdomen) Diagnosis: Preoperative examination Incisional hernia, without obstruction or gangrene (Preoperative examination [Z01.818]) (Incisional hernia, without obstruction or gangrene [K43.2]) Surgeons: Jeramie Franco MD Responsible Provider: Drake Hagen MD Anesthesia Type: general ASA Status: 3 Anesthesia Type: general Airway Type: ETT Last Vitals Vitals Value Taken Time BP 106/63 01/13/25 1315 Temp 36.8 ?C (98.2 ?F) 01/13/25 1058 Pulse 86 01/13/25 1324 Resp 15 01/13/25 1324 SpO2 97 % 01/13/25 1324 Vitals shown include unfiled device data. Post Anesthesia Patient Status Patient Evaluation: PACU. PACU/ICU Patient Condition: stable. Anticipated Disposition: phase 2 then home. Neurological Status: sleepy but arousable. Pulmonary Status: breathing comfortably on supplemental oxygen Airway Control: returned to baseline unsupported. Cardiovascular Status: stable. Pain Management: clinically adequate Postoperative Hydration: acceptable. Intraoperative Events: no significant anesthesia events Post Operative Nausea/Vomiting Status: no significant post operative nausea or vomiting Recommendation: continue current plan of care. Anesthesia Observations No Documentation SIGNATURE: Drake Hagen MD PATIENT NAME: Guerrero Ramos DATE: January 13, 2025 TIME: 1:26 PM CSN: [id number] Normal [facility] ANES PRE-OPon 01-13-2025 ANES PRE-OP HNO ID: [id number] Author: DRAKE HAGEN MD Service: ? Author Type: Anesthesiologist Type: Anesthesia Preprocedure Evaluation Filed: 01/13/2025 06:42 Note Text: ANESTHESIOLOGY DAY OF SURGERY NOTE : 1980 Procedure Information Date/Time: 01/13/25 0730 Procedure: HERNIORRHAPHY VENTRAL RECURRENT REDUCIBLE GREATER THAN 10cm (Abdomen) Location: [facility] Surgeons: Jeramie Franco MD Estimated body mass index is 51.74 kg/m? as calculated from the following: Height as of 01/12/25: 160 cm (5' 3 ). Weight as of 01/12/25: 132.5 kg (292 lb 1.8 oz). Most recent hematocrit and potassium results: Hematocrit 41.9 01/12/2025 Potassium 5.0 01/12/2025 Relevant Problems CARDIO (+) HTN (hypertension) ENDO (+) Hypothyroidism -RENAL (+) CKD (chronic kidney disease) NEURO-PSYCH (+) History of ventral hernia I - PHYSICAL EVALUATION AIRWAY Patient intubated: No. Tracheostomy tube not present Mallampati: III. TM distance: >3 FB. Neck ROM: full ROM without neurological symptoms. Mouth opening: adequate. Short neck: yes. Thick neck: yes Bain present: no Microretrognathia/Microna gthia/Recessed Chin: No DENTAL Dental findings: missing tooth/teeth and teeth intact. Additional exam findings: yes. Other findings: denies regurg, reflux, anesthesia problems or motion sickness did not take glargine this morning, off Victoza for almost one month glucose 184 this AM HTN controlled on meds creat 2.58, CKD since ? per patient, never n dialysis . II - ANESTHESIA PLAN ASA Score: 3 Anesthetic Plan: general Airway type: ETT The patient is not a current smoker. NPO Status: adequate Beta Shabnam Monitoring Plan Monitoring plan: standard ASA. Post Procedure Analgesic Plan Postoperative analgesic plan: parenteral or oral opioids. Informed Consent Anesthetic risks, benefits, alternatives, personnel and consent discussed: yes. Patient / Responsible Alliance Party agrees to proceed: yes Patient / Surrogate agrees to blood products: Yes Significant changes in the patient condition since the History and Physical, not otherwise documented in primary service progress note: no. Potential Anesthesia issues that may suggest increased risk of complications or contraindication to planned procedure: potential difficult intubation. No vitals data found for the desired time range. Facility-Administered Medications as of 01/13/2025 Medication Dose Route Frequency [COMPLETED] lidocaine (PF) 10 mg/mL (1 %) 1-2 mg injection (XYLOCAINE) 0.1-0.2 mL INTRADERMAL PRN Or [COMPLETED] lidocaine 1% 0.25 mL subcutaneous j-tip syringe (XYLOCAINE) 0.25 mL SUBCUTANEOUS PRN lactated ringers iv infusion 5-30 mL/hr INTRAVENOUS CONTINUOUS NaCl 0.9% iv flush bag 20 mL INTRAVENOUS PRN vancomycin iv piggyback 1.5 g in D5W 300 mL (VANCOCIN) 1.5 g INTRAVENOUS Pre-Op Once heparin 5,000 Units injection 5,000 Units SUBCUTANEOUS ONCE [COMPLETED] acetaminophen 1,000 mg tab(s) (TYLENOL) 1,000 mg ORAL Pre-Op Once [COMPLETED] promethazine 12.5 mg tab(s) (PHENERGAN) 12.5 mg ORAL Pre-Op Once Outpatient Medications as of 01/13/2025 Medication Sig traZODone (DESYREL) 100 mg tablet Take 100 mg by mouth two times a day. ALPRAZolam (XANAX) 0.25 mg tablet Take 0.25 mg by mouth at bedtime as needed. levothyroxine 75 mcg cap Take 75 mcg by mouth daily before breakfast. meclizine (ANTIVERT) 25 mg tab Take 25 mg by mouth three times a day. amLODIPine (NORVASC) 2.5 mg tablet Take by mouth once daily. ondansetron HCl (ZOFRAN ORAL) Take by mouth as needed. insulin glargine,hum.rec.anlog (TOUJEO MAX U-300 SOLOSTAR SUBCUTANEOUS) Inject subcutaneously. tolterodine (DETROL) 2 mg tablet Take 2 mg by mouth two times a day. rosuvastatin (CRESTOR) 20 mg tablet Take 20 mg by mouth once daily. sertraline (ZOLOFT) 50 mg tablet Take 50 mg by mouth once daily. ergocalciferol 50,000 unit capsule (VITAMIN D2, DRISDOL) Take 50,000 Units by mouth one time a week. Meloxicam 7.5 mg/5 mL susp Take by mouth. mirabegron (MYRBETRIQ) 25 mg Tb24 Take by mouth. (Patient not taking: Reported on 01/12/2025) I have interviewed and examined the patient. I have reviewed the medical record and/or the pre-anesthesia evaluation, pertinent labs, and test results. This contains updated information obtained within 48 hours of Surgery/Procedure. SIGNATURE: Drake Hagen MD PATIENT NAME: Guerrero Ramos DATE: January 13, 2025 TIME: 6:40 AM CSN: [id number] Normal [facility] Basic metabolic 2000 panelon 01-13-2025 Anion gap [Moles/Vol] 14 mmol/L Normal 8-15 [facility] Comment on above: Order Comment: Speci men Type: BLOOD SPECIMENOrdering Facility: [facility] Address: [address] [place] [address] Performed By: #### 1 988-5, 71264-9, 2777-1, 89642-0 ####[facility] LABCLIA [id number] [place] [address] [place] Calcium [Mass/Vol] 9.3 mg/dL Normal 8.5-10.2 [facility] Comment on above: Order Comment: Speci men Type: BLOOD SPECIMENOrdering Facility: [facility] Address: [address] [place] [address] Performed By: #### 1 988-5, 49610-5, 2777-1, 91075-8 ####[facility] LABCLIA [id number] [place] [address] [place] Chloride [Moles/Vol] 104 mmol/L Normal 98-107 [facility] Comment on above: Order Comment: Speci men Type: BLOOD SPECIMENOrdering Facility: [facility] Address: [address] [place] [address] Performed By: #### 1 988-5, 20349-5, 2777-1, 07980-8 ####[facility] LABCLIA [id number] [place] [id number] [place] CO2 [Moles/Vol] 20 mmol/L Low 22-30 [facility] Comment on above: Order Comment: Speci men Type: BLOOD SPECIMENOrdering Facility: [facility] Address: [address] [place] [address] Performed By: #### 1 988-5, 88574-6, 2777-1, 39835-8 ####[facility] [id number] [place] [id number] [place] Creatinine [Mass/Vol] 2.42 mg/dL High 0.58-0.96 [facility] Comment on above: Order Comment: Speci men Type: BLOOD SPECIMENOrdering Facility: [facility] Address: [address] [place] [address] Performed By: #### 1 988-5, 16914-3, 2777-, 22942-4 ####[facility] [id number] [place] [address] [place] Creatinine and Glomerular filtration rate.predicted panel (S/P/Bld) 25 mL/min/1.73m??? Low >=60 [facility] Comment on above: Order Comment: Jigneshi men Type: BLOOD SPECIMENOrdering Facility: [facility] Address: [address] [place] [address] Result Comment: Flori mated Glomerular Filtration Rate (eGFR) is calculated using the 2020 CKD-EPI creatinine equation. This equation utilizes serum creatinine, sex, and age as parameters. The creatinine assay has traceable calibration to isotope dilution-mass spectrometry. Refer to KDIGO guidelines for clinical interpretation. In patients with unstable renal function, e.g. those with acute kidney injury, the eGFR may not accurately reflect actual GFR. Performed By: #### 1 988-5, 03520-6, 2777-, 98373-7 ####[facility] [id number] [place] [id number] [place] Glucose [Mass/Vol] 193 mg/dL High 74-99 [facility] Comment on above: Order Comment: Jigneshi men Type: BLOOD SPECIMENOrdering Facility: [facility] Address: [address] [place] [address] Result Comment: The [place] Diabetes Association (ADA) provides guidance for cutoff [...] Standards of Medical Care in Diabetes 2016, [place] Diabetes Association. Diabetes Care. 2016.39(Suppl 1). Performed By: #### 1 988-5, 02229-7, 2777-1, 77588-7 ####[facility] LABIA [id number] [place] [address] [place] Potassium [Moles/Vol] 5.2 mmol/L High 3.7-5.1 [facility] Comment on above: Order Comment: Speci men Type: BLOOD SPECIMENOrdering Facility: [facility] Address: [address] [place] [address] Performed By: #### 1 988-5, 92679-1, 277-, 78801-9 ####[facility] [id number] [place] [address] [place] Sodium [Moles/Vol] 138 mmol/L Normal 136-144 [facility] Comment on above: Order Comment: Speci men Type: BLOOD SPECIMENOrdering Facility: [facility] Address: [address] [place] [address] Performed By: #### 1 988-5, 48249-5, 2777-, 67950-2 ####[facility] LABIA [id number] [place] [address] [place] Urea nitrogen [Mass/Vol] 31 mg/dL High 7-21 [facility] Comment on above: Order Comment: Speci men Type: BLOOD SPECIMENOrdering Facility: [facility] Address: [address] [place] [address] Performed By: #### 1 988-5, 06690-4, 2777-1, 28661-5 ####[facility] LABCLIA [id number] [address], [place] [address] [place] CBC W Auto Differential pane l (Bld)on 01-13-2025 Basophils (Bld) [#/Vol] 10*3/uL Normal <0.11 [facility] Comment on above: Order Comment: Speci men Type: BLOOD SPECIMENOrdering Facility: [facility] Address: [address] [place] [address] Performed By: #### 5 7021-8, 96814-7 ####[facility] LABCLIA [id number] [place] [address] [place] Basophils/100 WBC (Bld) 0.2 % Normal [facility] Comment on above: Order Comment: Speci men Type: BLOOD SPECIMENOrdering Facility: [facility] Address: [address] [place] [address] Performed By: #### 5 7021-8, 62899-1 ####[facility] LABCLIA [id number] [place] [address] [place] Differential cell count method Nom (Bld) Auto Normal [facility] Comment on above: Order Comment: Speci men Type: BLOOD SPECIMENOrdering Facility: [facility] Address: [address] [place] [address] Performed By: #### 5 7021-8, 41168-8 ####[facility] LABCLIA [id number] [place] [id number] [place] Eosinophils (Bld) [#/Vol] 10*3/uL Normal <0.46 [facility] Comment on above: Order Comment: Speci men Type: BLOOD SPECIMENOrdering Facility: [facility] Address: [address] [place] [address] Performed By: #### 5 7021-8, 45694-6 ####[facility] LABIA [id number] [place] [address] [place] Eosinophils/100 WBC (Bld) 0.0 % Normal [facility] Comment on above: Order Comment: Speci men Type: BLOOD SPECIMENOrdering Facility: [facility] Address: [address] [place] [address] Performed By: #### 5 7021-8, 64116-0 ####[facility] LABIA [id number] [place] [address] [place] Erythrocyte distribution width (RBC) [Ratio] 15.3 % High 11.5-15.0 [facility] Comment on above: Order Comment: Speci men Type: BLOOD SPECIMENOrdering Facility: [facility] Address: [address] [place] [address] Performed By: #### 5 7021-8, 51621-8 ####[facility] LABIA [id number] [place] [address] [place] Hematocrit (Bld) [Volume fraction] 34.6 % Low 36.0-46.0 [facility] Comment on above: Order Comment: Speci men Type: BLOOD SPECIMENOrdering Facility: [facility] Address: [address] [place] [address] Performed By: #### 5 7021-8, 42535-4 ####[facility] LABIA [id number] [place] [id number] [place] Hemoglobin (Bld) [Mass/Vol] 10.8 g/dL Low 11.5-15.5 [facility] Comment on above: Order Comment: Speci men Type: BLOOD SPECIMENOrdering Facility: [facility] Address: [address] [place] [address] Performed By: #### 5 7021-8, 32473-8 ####[facility] LABCLIA [id number] [address] [place] Immature granulocytes (Bld) [#/Vol] 0.03 10*3/uL Normal <0.10 [facility] Comment on above: Order Comment: Speci men Type: BLOOD SPECIMENOrdering Facility: [facility] Address: [address] [place] [address] Performed By: #### 5 7021-8, 71277-3 ####[facility] LABCLIA [id number] [address] [place] Immature granulocytes/100 WBC (Bld) 0.3 % Normal [facility] Comment on above: Order Comment: Speci men Type: BLOOD SPECIMENOrdering Facility: [facility] Address: [address] [place] [address] Performed By: #### 5 7021-8, 49425-9 ####[facility] LABCLIA [id number] [place] [address] [place] Lymphocytes (Bld) [#/Vol] 0.55 10*3/uL Low 1.00-4.00 [facility] Comment on above: Order Comment: Speci men Type: BLOOD SPECIMENOrdering Facility: [facility] Address: [address] [place] [address] Performed By: #### 5 7021-8, 95473-5 ####[facility] LABCLIA [id number] [place] [address] [place] Lymphocytes/100 WBC (Bld) 5.3 % Normal [facility] Comment on above: Order Comment: Speci men Type: BLOOD SPECIMENOrdering Facility: [facility] Address: [address] [place] [address] Performed By: #### 5 7021-8, 00069-0 ####[facility] LABCLIA [id number] [place] [address] [place] MCH (RBC) [Entitic mass] 25.3 pg Low 26.0-34.0 [facility] Comment on above: Order Comment: Speci men Type: BLOOD SPECIMENOrdering Facility: [facility] Address: [address] [place] [address] Performed By: #### 5 7021-8, 10796-7 ####[facility] LABCLIA [id number] [place] [address] [place] MCHC (RBC) [Mass/Vol] 31.2 g/dL Normal 30.5-36.0 [facility] Comment on above: Order Comment: Speci men Type: BLOOD SPECIMENOrdering Facility: [facility] Address: [address] [place] [address] Performed By: #### 5 7021-8, 48124-9 ####[facility] LABCLIA [id number] [place] [address] [place] MCV (RBC) [Entitic vol] 81.0 fL Normal 80.0-100.0 [facility] Comment on above: Order Comment: Speci men Type: BLOOD SPECIMENOrdering Facility: [facility] Address: [address] [place] [address] Performed By: #### 5 7021-8, 48534-1 ####[facility] LABIA [id number] [place] [address] [place] Monocytes (Bld) [#/Vol] 0.61 10*3/uL Normal <0.87 [facility] Comment on above: Order Comment: Speci men Type: BLOOD SPECIMENOrdering Facility: [facility] Address: [address] [place] [address] Performed By: #### 5 7021-8, 94493-5 ####[facility] LABCLIA [id number] [place] [address] [place] Monocytes/100 WBC (Bld) 5.9 % Normal [facility] Comment on above: Order Comment: Speci men Type: BLOOD SPECIMENOrdering Facility: [facility] Address: [address] [place] [address] Performed By: #### 5 7021-8, 91846-0 ####[facility] LABCLIA [id number] [place] [address] [place] Neutrophils (Bld) [#/Vol] 9.16 10*3/uL High 1.45-7.50 [facility] Comment on above: Order Comment: Speci men Type: BLOOD SPECIMENOrdering Facility: [facility] Address: [address] [place] [address] Performed By: #### 5 7021-8, 37592-0 ####[facility] LABCLIA [id number] [place] [address] [place] Neutrophils/100 WBC (Bld) 88.3 % Normal [facility] Comment on above: Order Comment: Speci men Type: BLOOD SPECIMENOrdering Facility: [facility] Address: [address] [place] [address] Performed By: #### 5 7021-8, 30858-9 ####[facility] LABIA [id number] [place] [address] [place] Nucleated RBC (Bld) [#/Vol] 10*3/uL Normal <0.01 [facility] Comment on above: Order Comment: Speci men Type: BLOOD SPECIMENOrdering Facility: [facility] Address: [address] [place] [address] Performed By: #### 5 7021-8, 61254-6 ####[facility] LABCLIA [id number] [place] [address] [place] Nucleated RBC/100 WBC (Bld) [Ratio] 0.0 /100 WBC Normal [facility] Comment on above: Order Comment: Speci men Type: BLOOD SPECIMENOrdering Facility: [facility] Address: [address] [place] [address] Performed By: #### 5 7021-8, 73715-5 ####[facility] LABCLIA [id number] [place] [id number] [place] Platelet mean volume (Bld) [Entitic vol] 9.7 fL Normal 9.0-12.7 [facility] Comment on above: Order Comment: Speci men Type: BLOOD SPECIMENOrdering Facility: [facility] Address: [address] [place] [address] Performed By: #### 5 7021-8, 94797-7 ####[facility] LABIA [id number] [place] [address] [place] Platelets (Bld) [#/Vol] 234 10*3/uL Normal 150-400 [facility] Comment on above: Order Comment: Speci men Type: BLOOD SPECIMENOrdering Facility: [facility] Address: [address] [place] [address] Performed By: #### 5 7021-8, 42424-4 ####[facility] [id number] [place] [address] [place] RBC (Bld) [#/Vol] 4.27 10*6/uL Normal 3.90-5.20 [facility] Comment on above: Order Comment: Speci men Type: BLOOD SPECIMENOrdering Facility: [facility] Address: [address] [place] [address] Performed By: #### 5 7021-8, 62010-7 ####[facility] LABIA [id number] [place] [id number] [place] WBC (Bld) [#/Vol] 10.37 10*3/uL Normal 3.70-11.00 [facility] Comment on above: Order Comment: Speci men Type: BLOOD SPECIMENOrdering Facility: [facility] Address: [address] [place] [address] Performed By: #### 5 7021-8, 06389-7 ####[facility] LABIA [id number] [place] [id number] [place] CRP SerPl-mCncon 01-13-2025 CRP [Mass/Vol] 7.7 mg/dL High <0.9 [facility] Comment on above: Order Comment: Speci men Type: BLOOD SPECIMENOrdering Facility: [facility] Address: [address] [place] [address] Performed By: #### 1 988-5, 55590-3, 2777-1, 75528-4 ####[facility] LABIA [id number] [address] [place] HIGH SENSITIVITY TROPONIN To n 01-13-2025 Troponin T.cardiac High sensitivity method [Mass/Vol] 7 ng/L Normal <12 [facility] Comment on above: Order Comment: Speci men Type: BLOOD SPECIMENOrdering Facility: [facility] Address: [address] [place] [address] Performed By: #### H STNT ####[facility] [id number] [place] [address] [place] HbA1c (Bld)on 01-13-2025 Average glucose Estimated from glycated hemoglobin (Bld) [Mass/Vol] 128 mg/dL Normal [facility] Comment on above: Order Comment: Speci men Type: BLOOD SPECIMENOrdering Facility: [facility] Address: [address] [place] [address] Result Comment: eAG: (Estimated average glucose) is a calculated value from HgbA1c and is unit support representative of the average blood glucose level in the last 2-3 month period. Performed By: #### 5 7021-8, 19857-0 ####[facility] LABIA [id number] [place] [id number] [place] HbA1c (Bld) [Mass fraction] 6.1 % High 4.3-5.6 [facility] Comment on above: Order Comment: Speci men Type: BLOOD SPECIMENOrdering Facility: [facility] Address: [address] [place] [address] Result Comment: [place] Diabetes Association guidelines indicate that patients with HgbA1c in the range 5.7-6.4% are at increased risk for development of diabetes, and intervention by lifestyle modification may be beneficial. HgbA1c greater or equal to 6.5% is considered diagnostic of diabetes. Performed By: #### 5 7021-8, 06533-2 ####[facility] LABCLIA [id number] [place] [address] [place] Magnesium SerPl-mCncon 01-13 Magnesium [Mass/Vol] 1.9 mg/dL Normal 1.7-2.3 [facility] Comment on above: Order Comment: Sandy tsang Type: BLOOD SPECIMENOrdering Facility: [facility] Address: [address] [place] [address] Performed By: #### 1 988-5, 98090-5, 2777-1, 36289-3 ####[facility] LABCLIA [id number] [place] [address] [place] OPERATIVE NOon 01-13-2025 OPERATIVE NO HNO ID: [id number] Author: JERAMIE FRANCO MD Service: General Surgery Author Type: Physician Type: Operative Report Filed: 01/13/2025 10:15 Note Text: OPERATIVE REPORT Name: Guerrero Ramos : 1980 MR#: [id number] Date of service: January 13, 2025 Start time: 0800 Stop time: 1013 Surgeon(s): Jeramie Franco MD [employer] Operator(s): Roger Bueno MD Procedure(s): 1. Open right myofascial advancement flap 2. Open left myofascial advancement flap 3. Repair of incarcerated incisional hernia Anesthesia: general Pre-Op/Pre-Procedure Diagnosis: incarcerated incisional hernia Post-Op/Post-Procedure Diagnosis: incarcerated incisional hernia Operative Findings: Incisional hernia measuring 15 cm wide by 26 cm long Omental adhesions to the anterior abdominal wall Estimated Blood Loss: 100 mL Specimens: none Implantable Devices: 30 cm x 30 cm Prolene mesh Drains: 2 retromuscular drains, 1 subcutaneous drain Complications: none Indication for Operation: Guerrero Ramos is a 44 year old female who presents with a symptomatic incisional hernia, having undergone no previous repairs. Current symptoms include pain and a bulge. We discussed the risks and benefits of the operation and the patient agreed to proceed. They were enrolled in the weight loss trial. Procedure Details: The patient was transported to the operating room and placed supine on the operating table. A preoperative safety huddle was performed. The patient received pre-operative IV antibiotics and subcutaneous heparin. Sequential compression devices were placed on the patient's lower extremities. General anesthesia was induced and an endotracheal tube was placed in the patient's airway. A Duncan catheter was placed in the bladder. The patient was then appropriately positioned with padding and safety belts. The abdomen was prepped and draped in a sterile fashion. A time out was performed before incision. We began with a midline incision, entering the abdomen sharply. The bowel and omentum were taken down off of the anterior abdominal wall. Intra-abdominal adhesions were mostly omentum. There were no serosal tears or enterotomies. After carefully inspecting the bowel, a towel was placed over the viscera. The defect was 15 cm wide by 26 cm long. The fascia would not come back together primarily, so we performed posterior components separation. We started on the right side. The posterior rectus sheath was incised and from the rectus muscle, carefully preserving lateral neurovascular bundles. The posterior lamella of the internal oblique aponeuroris and transversus abdominis muscle were divided to enter the preperitoneal plane. The dissection continued laterally, superiorly along the costal margin to the xiphoid, and into the space of Retzius inferiorly. This gave us excellent advancement of the fascial elements. Next, the same dissection was performed on the contralateral side. The posterior rectus sheath was incised and from the rectus muscle, carefully preserving lateral neurovascular bundles. The posterior lamella of the internal oblique aponeuroris and transversus abdominis muscle were divided to enter the preperitoneal plane. The dissection continued laterally, superiorly along the costal margin to the xiphoid, and into the space of Retzius inferiorly. This gave us excellent advancement of the fascial elements. We then closed posterior rectus sheath with running 2-0 Vicryl, completely excluding the viscera from the large preperitoneal pocket. We policed for hemostasis. A 30 cm x 30 cm Prolene mesh was placed in a ines configuration in the retromuscular space, tucking it under the xiphoid, pubis, and costal margins. This gave us excellent mesh coverage of the defect. Two drains were placed above the mesh and secured at the skin before closing the anterior fascia. The midline was closed with interrupted [id number] sutures using #1 PDS. Excess skin and hernia sac was removed. A subcutaneous drain was placed. After confirming that all final counts were correct, the skin was closed in two layers with a 3-0 chromic and a 4-0 Monocryl in a running, subcuticular fashion. Skin glue and sterile dressings were applied. Anesthesia was reversed and the patient was taken to the recovery room in stable condition. Please note, Dr. Jeramie Franco, the attending surgeon was present and scrubbed for the procedure. Normal [facility] Phosphate SerPl-mCncon 01-13 Phosphate [Mass/Vol] 3.9 mg/dL Normal 2.7-4.8 [facility] Comment on above: Order Comment: Speci men Type: BLOOD SPECIMENOrdering Facility: [facility] Address: [address] [place] [address] Performed By: #### 1 988-5, 11719-3, 2777-1, 57039-8 ####[facility] LABIA [id number] [place] [address] [place] CBC W Auto Differential pane l (Bld)on 01-12-2025 Basophils (Bld) [#/Vol] 0.05 10*3/uL Normal <0.11 [facility] Comment on above: Order Comment: Speci men Type: BLOOD SPECIMENOrdering Facility: [facility] Address: [address] [place] [address] Performed By: #### 5 7021-8 ####[facility] LABIA [id number] [address] [place] Basophils/100 WBC (Bld) 0.6 % Normal [facility] Comment on above: Order Comment: Speci men Type: BLOOD SPECIMENOrdering Facility: [facility] Address: [address] [place] [address] Performed By: #### 5 7021-8 ####[facility] LABCLIA [id number] [place] [address] [place] Differential cell count method Nom (Bld) Auto Normal [facility] Comment on above: Order Comment: Speci men Type: BLOOD SPECIMENOrdering Facility: [facility] Address: [address] [place] [address] Performed By: #### 5 7021-8 ####[facility] LABCLIA [id number] [place] [address] [place] Eosinophils (Bld) [#/Vol] 0.22 10*3/uL Normal <0.46 [facility] Comment on above: Order Comment: Speci men Type: BLOOD SPECIMENOrdering Facility: [facility] Address: [address] [place] [address] Performed By: #### 5 7021-8 ####[facility] LABCLIA [id number] [address] [place] Eosinophils/100 WBC (Bld) 2.6 % Normal [facility] Comment on above: Order Comment: Speci men Type: BLOOD SPECIMENOrdering Facility: [facility] Address: [address] [place] [address] Performed By: #### 5 7021-8 ####[facility] LABCLIA [id number] [place] [address] [place] Erythrocyte distribution width (RBC) [Ratio] 15.3 % High 11.5-15.0 [facility] Comment on above: Order Comment: Speci men Type: BLOOD SPECIMENOrdering Facility: [facility] Address: [address] [place] [address] Performed By: #### 5 7021-8 ####[facility] LABCLIA [id number] [address], [place] [address] [place] Hematocrit (Bld) [Volume fraction] 41.9 % Normal 36.0-46.0 [facility] Comment on above: Order Comment: Speci men Type: BLOOD SPECIMENOrdering Facility: [facility] Address: [address] [place] [address] Performed By: #### 5 7021-8 ####[facility] LABCLIA [id number] [address], [place] [address] [place] Hemoglobin (Bld) [Mass/Vol] 13.1 g/dL Normal 11.5-15.5 [facility] Comment on above: Order Comment: Speci men Type: BLOOD SPECIMENOrdering Facility: [facility] Address: [address] [place] [address] Performed By: #### 5 7021-8 ####[facility] LABIA [id number] [address], [place] [address] [place] Immature granulocytes (Bld) [#/Vol] 10*3/uL Normal <0.10 [facility] Comment on above: Order Comment: Speci men Type: BLOOD SPECIMENOrdering Facility: [facility] Address: [address] [place] [address] Performed By: #### 5 7021-8 ####[facility] LABCLIA [id number] [place] [address] [place] Immature granulocytes/100 WBC (Bld) 0.2 % Normal [facility] Comment on above: Order Comment: Speci men Type: BLOOD SPECIMENOrdering Facility: [facility] Address: [address] [place] [address] Performed By: #### 5 7021-8 ####[facility] LABCLIA [id number] [address], [facility]95 [place] Lymphocytes (Bld) [#/Vol] 1.65 10*3/uL Normal 1.00-4.00 [facility] Comment on above: Order Comment: Speci men Type: BLOOD SPECIMENOrdering Facility: [facility] Address: [address] [place] [address] Performed By: #### 5 7021-8 ####[facility] LABIA [id number] [place] [address] [place] Lymphocytes/100 WBC (Bld) 19.6 % Normal [facility] Comment on above: Order Comment: Speci men Type: BLOOD SPECIMENOrdering Facility: [facility] Address: [address] [place] [address] Performed By: #### 5 7021-8 ####[facility] LABIA [id number] [place] [address] [place] MCH (RBC) [Entitic mass] 24.9 pg Low 26.0-34.0 [facility] Comment on above: Order Comment: Speci men Type: BLOOD SPECIMENOrdering Facility: [facility] Address: [address] [place] [address] Performed By: #### 5 7021-8 ####[facility] LABIA [id number] [place] [address] [place] MCHC (RBC) [Mass/Vol] 31.3 g/dL Normal 30.5-36.0 [facility] Comment on above: Order Comment: Speci men Type: BLOOD SPECIMENOrdering Facility: [facility] Address: [address] [place] [address] Performed By: #### 5 7021-8 ####[facility] LABIA [id number] [place] [address] [place] MCV (RBC) [Entitic vol] 79.7 fL Low 80.0-100.0 [facility] Comment on above: Order Comment: Speci men Type: BLOOD SPECIMENOrdering Facility: [facility] Address: [address] [place] [address] Performed By: #### 5 7021-8 ####[facility] LABCLIA [id number] [address], [facility]95 [place] Monocytes (Bld) [#/Vol] 0.35 10*3/uL Normal <0.87 [facility] Comment on above: Order Comment: Speci men Type: BLOOD SPECIMENOrdering Facility: [facility] Address: [address] [place] [address] Performed By: #### 5 7021-8 ####[facility] LABCLIA [id number] [address], [facility]95 [place] Monocytes/100 WBC (Bld) 4.2 % Normal [facility] Comment on above: Order Comment: Speci men Type: BLOOD SPECIMENOrdering Facility: [facility] Address: [address] [place] [address] Performed By: #### 5 7021-8 ####[facility] LABCLIA [id number] [address], [facility]95 [place] Neutrophils (Bld) [#/Vol] 6.12 10*3/uL Normal 1.45-7.50 [facility] Comment on above: Order Comment: Speci men Type: BLOOD SPECIMENOrdering Facility: [facility] Address: [address] [place] [address] Performed By: #### 5 7021-8 ####[facility] LABCLIA [id number] [address], [facility]95 [place] Neutrophils/100 WBC (Bld) 72.8 % Normal [facility] Comment on above: Order Comment: Speci men Type: BLOOD SPECIMENOrdering Facility: [facility] Address: [address] [place] [address] Performed By: #### 5 7021-8 ####[facility] LABCLIA [id number] [address] [place] [address] [place] Nucleated RBC (Bld) [#/Vol] 10*3/uL Normal <0.01 [facility] Comment on above: Order Comment: Speci men Type: BLOOD SPECIMENOrdering Facility: [facility] Address: [address] [place] [address] Performed By: #### 5 7021-8 ####[facility] LABCLIA [id number] [place] [address] [place] Nucleated RBC/100 WBC (Bld) [Ratio] 0.0 /100 WBC Normal [facility] Comment on above: Order Comment: Speci men Type: BLOOD SPECIMENOrdering Facility: [facility] Address: [address] [place] [address] Performed By: #### 5 7021-8 ####[facility] LABIA [id number] [place] [address] [place] Platelet mean volume (Bld) [Entitic vol] 9.0 fL Normal 9.0-12.7 [facility] Comment on above: Order Comment: Speci men Type: BLOOD SPECIMENOrdering Facility: [facility] Address: [address] [place] [address] Performed By: #### 5 7021-8 ####[facility] [id number] [place] [address] [place] Platelets (Bld) [#/Vol] 267 10*3/uL Normal 150-400 [facility] Comment on above: Order Comment: Speci men Type: BLOOD SPECIMENOrdering Facility: [facility] Address: [address] [place] [address] Performed By: #### 5 7021-8 ####[facility] LABIA [id number] [place] [address] [place] RBC (Bld) [#/Vol] 5.26 10*6/uL High 3.90-5.20 [facility] Comment on above: Order Comment: Speci men Type: BLOOD SPECIMENOrdering Facility: [facility] Address: [address] [place] [address] Performed By: #### 5 7021-8 ####[facility] LABCLIA [id number] [place] [address] [place] WBC (Bld) [#/Vol] 8.41 10*3/uL Normal 3.70-11.00 [facility] Comment on above: Order Comment: Speci men Type: BLOOD SPECIMENOrdering Facility: [facility] Address: [address] [place] [address] Performed By: #### 5 7021-8 ####[facility] LABCLIA [id number] [place] [address] [place] CONFIRM BLOOD TYPEon 025 ABO O Normal [facility] Comment on above: Order Comment: Speci men Type: BLOOD SPECIMENOrdering Facility: [facility] Address: [address] [place] [address] Performed By: #### C ONABO ####[facility] BLO[facility] BANKCLIA [id number] [place] [address] [place] Rh Nom (Bld) Positive Normal [facility] Comment on above: Order Comment: Speci men Type: BLOOD SPECIMENOrdering Facility: [facility] Address: [address] [place] [address] Performed By: #### C ONABO ####[facility] BLOOD BANKCLIA [id number] [place] [address] [place] Comprehensive metabolic 2000 panelon 01-12-2025 Albumin [Mass/Vol] 4.2 g/dL Normal 3.9-4.9 [facility] Comment on above: Order Comment: Speci men Type: BLOOD SPECIMENOrdering Facility: [facility] Address: [address] [place] [address] Performed By: #### 2 4323-8 ####[facility] LABCLIA [id number] [facility] [address] [place] [address] [place] ALP [Catalytic activity/Vol] 89 U/L Normal 34-123 [facility] Comment on above: Order Comment: Speci men Type: BLOOD SPECIMENOrdering Facility: [facility] Address: [address] [place] [address] Performed By: #### 2 4323-8 ####[facility] LABCLIA [id number] [facility] [address] [place] [address] [place] ALT [Catalytic activity/Vol] 14 U/L Normal 7-38 [facility] Comment on above: Order Comment: Speci men Type: BLOOD SPECIMENOrdering Facility: [facility] Address: [address] [place] [address] Performed By: #### 2 4323-8 ####[facility] LABCLIA [id number] [address], [facility]95 [place] Anion gap [Moles/Vol] 9 mmol/L Normal 8-15 [facility] Comment on above: Order Comment: Speci men Type: BLOOD SPECIMENOrdering Facility: [facility] Address: [address] [place] [address] Performed By: #### 2 4323-8 ####[facility] LABCLIA [id number] [address], [facility]95 [place] AST [Catalytic activity/Vol] 20 U/L Normal 13-35 [facility] Comment on above: Order Comment: Speci men Type: BLOOD SPECIMENOrdering Facility: [facility] Address: [address] [place], [place] [address] Performed By: #### 2 4323-8 ####[facility] LABCLIA [id number] [place] [id number] [place] Bilirubin [Mass/Vol] 0.3 mg/dL Normal 0.2-1.3 [facility] Comment on above: Order Comment: Speci men Type: BLOOD SPECIMENOrdering Facility: [facility] Address: [address] [place] [address] Performed By: #### 2 4323-8 ####[facility] LABCLIA [id number] [address] [place] [address] [place] Calcium [Mass/Vol] 10.0 mg/dL Normal 8.5-10.2 [facility] Comment on above: Order Comment: Speci men Type: BLOOD SPECIMENOrdering Facility: [facility] Address: [address] [place] [id number] Performed By: #### 2 4323-8 ####[facility] LABCLIA [id number] [facility] [address] [place] [address] [place] Chloride [Moles/Vol] 102 mmol/L Normal 98-107 [facility] Comment on above: Order Comment: Speci men Type: BLOOD SPECIMENOrdering Facility: [facility] Address: [address] [place] [address] Performed By: #### 2 4323-8 ####[facility] LABCLIA [id number] [facility] [address] [place] [address] [place] CO2 [Moles/Vol] 26 mmol/L Normal 22-30 [facility] Comment on above: Order Comment: Speci men Type: BLOOD SPECIMENOrdering Facility: [facility] Address: [address] [place] [address] Performed By: #### 2 4323-8 ####[facility] LABCLIA [id number] [facility] [address] [place] [address] [place] Creatinine [Mass/Vol] 2.58 mg/dL High 0.58-0.96 [facility] Comment on above: Order Comment: Speci men Type: BLOOD SPECIMENOrdering Facility: [facility] Address: [address] [place] [address] Performed By: #### 2 4323-8 ####[facility] LABCLIA [id number] [facility] [place] [address] [place] Creatinine and Glomerular filtration rate.predicted panel (S/P/Bld) 23 mL/min/1.73m??? Low >=60 [facility] Comment on above: Order Comment: Sandy tsang Type: BLOOD SPECIMENOrdering Facility: [facility] Address: [address] [place] [address] Result Comment: Flori mated Glomerular Filtration Rate (eGFR) is calculated using the 2020 CKD-EPI creatinine equation. This equation utilizes serum creatinine, sex, and age as parameters. The creatinine assay has traceable calibration to isotope dilution-mass spectrometry. Refer to KDIGO guidelines for clinical interpretation. In patients with unstable renal function, e.g. those with acute kidney injury, the eGFR may not accurately reflect actual GFR. Performed By: #### 2 4323-8 ####[facility] LABCLIA [id number] [place] [address] [place] Glucose [Mass/Vol] 149 mg/dL High 74-99 [facility] Comment on above: Order Comment: Sandy tsang Type: BLOOD SPECIMENOrdering Facility: [facility] Address: [address] [place] [address] Result Comment: The [place] [employer] (ADA) provides guidance for cutoff [...] Standards of Medical Care in Diabetes 2016, [place] [employer]. Diabetes Care. 2016.39(Suppl 1). Performed By: #### 2 4323-8 ####[facility] LABCLIA [id number] [place] [id number] [place] Potassium [Moles/Vol] 5.0 mmol/L Normal 3.7-5.1 [facility] Comment on above: Order Comment: Speci men Type: BLOOD SPECIMENOrdering Facility: [facility] Address: [address] [place] [address] Performed By: #### 2 4323-8 ####[facility] LABCLIA [id number] [address] [place] [address] [place] Protein [Mass/Vol] 7.7 g/dL Normal 6.3-8.0 [facility] Comment on above: Order Comment: Speci men Type: BLOOD SPECIMENOrdering Facility: [facility] Address: [address] [place] [address] Performed By: #### 2 4323-8 ####[facility] LABCLIA [id number] [address] [address] [place] Sodium [Moles/Vol] 137 mmol/L Normal 136-144 [facility] Comment on above: Order Comment: Speci men Type: BLOOD SPECIMENOrdering Facility: [facility] Address: [address] [place] [address] Performed By: #### 2 4323-8 ####[facility] LABCLIA [id number] [place] [id number] [place] Urea nitrogen [Mass/Vol] 28 mg/dL High 7-21 [facility] Comment on above: Order Comment: Speci men Type: BLOOD SPECIMENOrdering Facility: [facility] Address: [address] [place] [address] Performed By: #### 2 4323-8 ####[facility] LABCLIA [id number] [address] [place] [address] [place] ECG COMPLETEon 01-12-2025 ECG COMPLETE Ventricular Rate : 8 4 BPM Atrial Rate : 84 BPM P-R Interval : 142 ms QRS Duration : 80 ms Q-T Interval : 374 ms QTC Calculation(Bazett) : 441 ms Calculated P [place] : 28 degrees Calculated R [place] : -1 degrees Calculated T [place] : 17 degrees NORMAL SINUS RHYTHM NORMAL ECG Confirmed by ЮЛИЯ RESENDEZ MD ([id number]) on 02/10/2025 10:36:26 PM NAME : GUERRERO RAMOS PID : [id number] : 1980 Gender : Female Race : Unknown ORD : [id number] Procedure Date : Jan 12 2025 08:31:48 Edit Date : Feb 10 2025 22:36:28 Diagnosis: NORMAL SINUS RHYTHM NORMAL ECG Confirmed by ЮЛИЯ RESENDEZ MD ([id number]) on 02/10/2025 10:36:26 PM Test Reason : Location : 119 : A17 A17 Overread By : ЮЛИЯ RESENDEZ MD Edited By : ЮЛИЯ RESENDEZ MD Referred By : MIGUEL ÁNGEL HOPSON Acquired by : MIREYA LANGE [facility] HISTORY PHYSICALon HISTORY PHYSICAL HNO ID: [id number] Author: DAGMAR DIAZ MD Service: ? Author Type: Resident Type: H&P Filed: 01/12/2025 12:26 Note Text: [facility] HISTORY AND PHYSICAL EXAMINATION SERVICE DATE: 01/12/2025 SERVICE TIME: 9:59 AM PRIMARY CARE PHYSICIAN: No primary care provider on file. Assessment Patient has the following medical conditions which may affect annie-operative course: HTN (hypertension) Managed on amlodipine HLD (hyperlipidemia) On statin CKD (chronic kidney disease) Most recent sCr 2.43 from 08/2024. Electrolytes within normal limits. Will repeat BMP. Never on dialysis. Hypothyroidism Managed on synthroid. Class 3 severe obesity due to excess calories with serious comorbidity and body mass index (BMI) of 50.0 to 59.9 in adult (HCC) BMI 51 Hernia, incisional Scheduled for repair. ANESTHESIA FINDINGS: Intubation History: No history of difficult intubation Significant Anesthesia Considerations: none Airway History: No history of difficult airway Oakley Activity Status Index: METS: Walk indoors, such as around the house (1.75 METs) Cannot do light work around the house, such as dusting or washing dishes Cannot take care of self; that is eating, dressing, bathing, using the toilet Cannot walk a block or two on level ground Cannot do moderate work around the house, such as vacuuming, sweeping floors, or carrying in groceries Cannot do yardwork, such as raking leaves, weeding, or pushing a power mower DASI Score: 1.75 Patient is limited most or all of the time (uses scooter, mobility device). Clinical Frailty Scale: 6. Moderately frail STOP-Bang Score: Has or is being treated for high blood pressure BMI greater than 35 kg/m2 Denies snoring loudly Denies feeling tired, fatigued, or sleepy during the daytime Has not been observed to stop breathing or choking/gasping during sleep Patient 50 years old or younger Non-male patient STOP-Bang Score: 2 I - PHYSICAL EVALUATION AIRWAY Patient intubated: No. Tracheostomy tube not present Mallampati: III. TM distance: >3 FB. Neck ROM: full ROM without neurological symptoms. Mouth opening: adequate. Short neck: no. Thick neck: no Bain present: no DENTAL Dental findings: teeth intact. II - ANESTHESIA PLAN Anesthetic plan additional comments: *PACC/TCI - anesthesia choice. Beta Shabnam Monitoring Plan Post Procedure Analgesic Plan Prepared for Surgery: optimally prepared for surgery, pending [see comment]. Labs per surgical service CONSULTS: Patient does not require consults for optimization at this time Planned Anesthetic: anesthesia choice The Following Tests/Procedures Have Been Initiated: No orders of the defined types were placed in this encounter. REASON FOR VISIT: Guerrero Ramos is a 44 year old female who is scheduled for Procedure(s): HERNIORRHAPHY VENTRAL RECURRENT REDUCIBLE GREATER THAN 10cm (N/A) at the request of @REFPROV2@ for consultation. My final recommendation will be communicated back to the requesting physician by way of shared medical record or letter. Subjective The patient has the following: COVID-19 Immunization Status Current Care Gaps Covid-19 Vaccine ( season) Overdue since 06/29/2024 11/07/2021 Imm Admin: COVID-19 original vaccine, full dose, monovalent (MODERNA) 04/19/2021 Imm Admin: COVID-19 original vaccine, full dose, monovalent (MODERNA) 03/21/2021 Imm Admin: COVID-19 original vaccine, full dose, monovalent (MODERNA) Only the first 3 history entries have been loaded, but more history exists. CHIEF COMPLAINT: Pre-op evaluation HPI: Patient is a 44 year old year old female who is scheduled for above case on 01/13/2025. Patient has two hernias that have been causing pain, no rescheduled for repair. Denies any fevers, chills, nausea, vomiting, SOB or chest pain. REVIEW OF SYSTEMS: General: Negative for: weight loss >10% of BW in last 6 months, malaise and fever. Neurological: Negative for: delirium, dementia, headaches, seizures, TIA and strokes. Respiratory: Negative for: asthma, COPD, current cough, dyspnea, home oxygen, pneumonia within 6 weeks, tobacco use and obstructive sleep apnea. Cardiovascular: Negative for: angina, arrhythmia, CAD, chest pain, CHF, DVT/PE, hypertension, recent SC, murmur/valvular heart disease and PVD. GI: Negative for: abdominal pain, GERD, heartburn, hepatitis, inflammatory bowel disease, liver disease and ETOH >2 drinks/day. : Negative for: on dialysis, dysuria, hematuria and nephrolithiasis. Endocrine: Negative for: diabetes mellitus, hyperthyroidism, hypothyroidism and steroid for chronic problem. Hematology: Negative for: anemia, thrombocytopenia and chronic anti-coagulation/platelet meds. Oncology: Colon cancer in 2016. Psych: Negative for: ADD, anxiety, bipolar disorder, depression and drug depend (more content not included)... Normal [facility] PT panel Coag (PPP)on 2024 INR Coag (PPP) [Relative time] 1.0 {INR} Normal 0.9-1.3 [facility] Comment on above: Order Comment: Speci men Type: BLOOD SPECIMENOrdering Facility: [facility] Address: [address] [place] [address] Result Comment: Svetlana min K Antagonist (VKA) Therapeutic Range: INR 2 to 3 (Target INR of 2.5) Note: For patients treated with VKA drugs, such as warfarin, the [place] [employer] 2012 Guideline recommends a therapeutic INR range of 2 to 3 (target INR of 2.5). This recommendation includes high-risk patients with antiphospholipid syndrome with previous arterial or venous thromboembolism, current-generation mechanical or bioprosthetic aortic heart valve replacement. Note: Patients with mechanical aortic valve replacement and additional risk factors for thromboembolic events (atrial fibrillation, previous thromboembolism, LV dysfunction, hypercoagulable conditions) or an older generation mechanical AVR (i.e., ball in-Cage) or any mechanical MVR should have a INR therapeutic range of 2.5 to 3.5 (target INR of 3). Matilda GH, et al. Chest 2012, 141:7S-47S Cassandra RA, et al. [facility] 2017, 70: 252-289 Performed By: #### 3 4528-0, 40174-3 ####[facility] [id number] [place] [id number] [place] PT Coag (PPP) [Time] 10.9 s Normal 9.7-13.0 [facility] Comment on above: Order Comment: Speci men Type: BLOOD SPECIMENOrdering Facility: [facility] Address: [address] [place] [address] Performed By: #### 3 4528-0, 78153-2 ####[facility] [id number] [place] [id number] [place] aPTT PPPon 01-12-2025 aPTT Coag (PPP) [Time] 27.4 s Normal 23.0-32.4 [facility] Comment on above: Order Comment: Speci men Type: BLOOD SPECIMENOrdering Facility: [facility] Address: [address] [place] [address] Performed By: #### 3 4528-0, 01596-9 ####[facility] [id number] [place] [address] [place] POCT Hemoglobin A1con 2024 HbA1c (Bld) [Mass fraction] 5.8 % 4 - 7 % [employer] XR ANKLE RT MIN 3 VWSon XR ANKLE RT MIN 3 VWS XR ANKLE RT MIN 3 VWS Exam: 3 views of the right ankle dated 11/06/2024. HISTORY: Lateral right ankle pain and foot for 2 days. No known injury COMPARISON: Right foot radiographs obtained on the same day FINDINGS: No acute fractures or dislocations of the right ankle. Contours of the tibial plafond and the talar dome are normal. Ankle mortise is intact. Small enthesophyte formation at the calcaneal attachment sites of Achilles tendon and plantar fascia. Possible cortical erosions along the inferior cuboid of indeterminate etiology. IMPRESSION: Possible cortical erosions along the inferior cuboid of indeterminate etiology. Finalized by Claudia Farrar MD on 11/06/2024 9:09 PM Normal [facility] XR FOOT RT MIN 3 VWSon 11-06 XR FOOT RT MIN 3 VWS XR FOOT RT MIN 3 VW S EXAM: 3 views of the right foot dated 11/06/2024. HISTORY: Pain in the base of the right fifth metatarsal. COMPARISON: None. FINDINGS: No radiographic evidence for acute fractures in the right foot. No dislocations. Mild degenerative changes in the mid foot. Small enthesophyte formation at the calcaneal attachment sites of plantar fascia and Achilles tendon. Possible cortical erosions along the inferior cuboid. IMPRESSION: No acute osseous abnormalities in the right foot. Possible cortical erosions along the inferior cuboid. Finalized by Claudia Farrar MD on 11/06/2024 9:08 PM Normal [facility] XR Foot - right 3 [facility] Result: 3 views foot: AP, MO, and lateral of the right foot were taken and show no fractures or dislocations. There is Joint space narrowing with dorsal osteophyte formation noted at the 4th tarsometatarsal joint, navicular cuneiform joint, talonavicular joint. Incidental finding of accessory ossicle noted at the cuboid groove. Mild degenerative changes noted of the subtalar joint. Decrease in calcaneal pitch. Patient guarding on lateral view, not fully weight-bearing. [facility] Study observation (narrative) [facility] CBC AND AUTO DIFFon 09-23-20 Erythrocyte distribution width (RBC) [Ratio] 16.0 % High 11.5-15.0 [facility] Comment on above: Performed By: #### 3 084-1, CBCA, 81760-0, FEPR, 2276-4, 2731- 8, 35612-6 #### [facility] ([id number]) [address], [address] [place] [address] Hematocrit (Bld) [Volume fraction] 39.8 % Normal 35-47 [facility] Comment on above: Performed By: #### 3 084-1, CBCA, 21422-4, FEPR, 2276-4, 2731- 8, 40181-9 #### [facility] ([id number]) [address], [facility] [address] [place] [address] Hemoglobin (Bld) [Mass/Vol] 13.1 g/dL Normal 11.7-15.5 [facility] Comment on above: Performed By: #### 3 084-1, CBCA, 83756-8, FEPR, 2276-4, 2731- 8, 46137-4 #### [facility] ([id number]) [address] [facility] [address] [place] [address] MCH (RBC) [Entitic mass] 25.6 pg Low 27-34 [facility] Comment on above: Performed By: #### 3 084-1, CBCA, 55754-5, FEPR, 2276-4, 2731- 8, 79342-4 #### [facility] ([id number]) [address] [facility] [address] [place] [address] MCHC (RBC) [Mass/Vol] 32.8 g/dL Normal 32-36 [facility] Comment on above: Performed By: #### 3 084-1, CBCA, 53206-8, FEPR, 2276-4, 2731- 8, 17417-7 #### [facility] ([id number]) [address] [facility] [address] [place] [address] MCV (RBC) [Entitic vol] 78 fL Low 80-100 [facility] Comment on above: Performed By: #### 3 084-1, CBCA, 36442-9, FEPR, 2276-4, 2731- 8, 05211-9 #### [facility] ([id number]) [address], [address] [place] [address] Platelet mean volume (Bld) [Entitic vol] 7.6 fL Normal 7-12 [facility] Comment on above: Performed By: #### 3 084-1, CBCA, 17081-5, FEPR, 2276-4, 2731- 8, 42515-8 #### [facility] ([id number]) [address], [address] [place] [address] Platelets (Bld) [#/Vol] 281 10*3/uL Normal 150-450 [facility] Comment on above: Performed By: #### 3 084-1, CBCA, 58115-3, FEPR, 2276-4, 2731- 8, 91024-6 #### [facility] ([id number]) [address], [address] [place] [address] RBC COUNT 5.12 X10E12/L Normal 3.80-5.20 [facility] Comment on above: Performed By: #### 3 084-1, CBCA, 01295-7, FEPR, 2276-4, 2731- 8, 14352-9 #### [facility] ([id number]) [address], [facility] [address] [place] [address] WBC (Bld) [#/Vol] 6.3 10*3/uL Normal 4.0-11.0 [facility] Comment on above: Performed By: #### 3 084-1, CBCA, 69328-3, FEPR, 2276-4, 2731- 8, 59460-0 #### [facility] ([id number]) [address], [address] [place] [address] FERRITINon 09-23-2024 Ferritin [Mass/Vol] 38 ng/mL Normal 11-307 [facility] Comment on above: Performed By: #### 3 5365-6, 64022-9, RENAL, 3084-1, 2731-8, CBC #### [facility] ([id number]) [address], [address] [place] [address] IRON PROFILEon 09-23-2024 Iron [Mass/Vol] 37 ug/dL Low 50-170 [facility] Comment on above: Performed By: #### 3 084-1, CBCA, 56851-1, FEPR, 2276-4, 2731- 8, 20618-8 #### [facility] ([id number]) [address], [address] [place] [address] IRON BINDING 322 ug/dL Normal 250-425 [facility] Comment on above: Performed By: #### 3 084-1, CBCA, 07845-4, FEPR, 2276-4, 1- 8, 17854-7 #### [facility] ([id number]) [address], [address] [place] [address] IRON SATURATION 11 % SATURATION Low 15-50 [facility] Comment on above: Performed By: #### 3 084-1, CBCA, 40899-2, FEPR, 2276-4, 2730- 8, 79755-0 #### [facility] ([id number]) [address], [address] [place] [address] MAGNESIUMon 09-23-2024 Magnesium [Mass/Vol] 1.9 mg/dL Normal 1.8-2.6 [facility] Comment on above: Performed By: #### 3 5365-6, 39724-2, RENAL, 4-1, 2731-8, CBC #### [facility] ([id number]) [address], [address] [place] [address] PROTEIN CREAT RATIOon 2023 RANDOM URINE PROTEIN 1480 mg/L High <120 [facility] Comment on above: Performed By: #### 3 5365-6, 24526-4, RENAL, 4-1, 2731-8, CBC #### [facility] ([id number]) [address], [address] [place] [address] U/PRO/BRILLIANDEER LOOPER RATIO CALC 1.63 High <0.2 [facility] Comment on above: Result Comment: Neph rotic Syndrome is associated with ratios >3.5 Performed By: #### 3 5365-6, 92833-2, RENAL, 4-1, 2730-8, CBC #### [facility] ([id number]) [address], [address] [place] [address] URINE CREATININE,RDM 90.72 mg/dL Normal [facility] Comment on above: Performed By: #### 3 5365-6, 66245-8, RENAL, 3083-, 2730-8, CBC #### [facility] ([id number]) [address], [address] [place] [address] Parathyrin.intact [Mass/Vol] on 09-23-2024 PTH INTACT 91 pg/mL High 12-88 [facility] Comment on above: Performed By: #### 3 5365-6, 55149-8, RENAL, 3083-, 2730-8, CBC #### [facility] ([id number]) [address], [address] [place] [address] RENAL PANELon 09-23-2024 Albumin [Mass/Vol] 4.1 g/dL Normal 3.2-5.3 [facility] Comment on above: Performed By: #### 3 5365-6, 75498-2, RENAL, 3083-, 2730-8, CBC #### [facility] ([id number]) [address], [address] [place] [address] Anion gap [Moles/Vol] 7 mmol/L Normal 5-15 [facility] Comment on above: Performed By: #### 3 5365-6, 62402-4, RENAL, 3083-, 2730-8, CBC #### [facility] ([id number]) [address], [address] [place] [address] Calcium [Mass/Vol] 9.8 mg/dL Normal 8.5-10.5 [facility] Comment on above: Performed By: #### 3 5365-6, 84193-1, RENAL, 3084-1, 2731-8, CBC #### [facility] ([id number]) [address], [address] [place] [address] Chloride [Moles/Vol] 108 mmol/L Normal 98-109 [facility] Comment on above: Performed By: #### 3 5365-6, 32644-4, RENAL, 3084-1, 2731-8, CBC #### [facility] ([id number]) [address], [address] [place] [address] CO2 [Moles/Vol] 24 mmol/L Normal 22-32 [facility] Comment on above: Performed By: #### 3 5365-6, 46915-1, RENAL, 3084-1, 2731-8, CBC #### [facility] ([id number]) [address], [address] [place] [address] Creatinine [Mass/Vol] 2.43 mg/dL High 0.40-1.00 [facility] Comment on above: Result Comment: METH OD TRACEABLE TO IDMS STANDARD Performed By: #### 3 5365-6, 97666-2, RENAL, 3084-1, 2731-8, CBC #### [facility] ([id number]) [address], [address] [place] [address] GFR/1.73 sq M.predicted among non-blacks MDRD (S/P/Bld) [Vol rate/Area] 24 mL/min/{1.73_m2} Low >59 [facility] Comment on above: Result Comment: Reported eGFR is based on the CKD-EPI 2020 equation that does not use a race coefficient. Performed By: #### 3 5365-6, 58590-9, RENAL, 3084-1, 2731-8, CBC #### [facility] ([id number]) [address] [place] [address] Glucose [Mass/Vol] 113 mg/dL High 65-99 [facility] Comment on above: Performed By: #### 3 5365-6, 51869-8, RENAL, 3084-1, 2731-8, CBC #### [facility] ([id number]) [address], [address] [place] [address] Phosphate [Mass/Vol] 3.8 mg/dL Normal 2.4-4.9 [facility] Comment on above: Performed By: #### 3 5365-6, 65977-1, RENAL, 3084-1, 2731-8, CBC #### [facility] ([id number]) [address], [address] [place] [address] Potassium [Moles/Vol] 4.8 mmol/L Normal 3.5-5.0 [facility] Comment on above: Performed By: #### 3 5365-6, 36685-8, RENAL, 4-1, 2731-8, CBC #### [facility] ([id number]) [address], [address] [place] [address] Sodium [Moles/Vol] 139 mmol/L Normal 134-146 [facility] Comment on above: Performed By: #### 3 5365-6, 84840-2, RENAL, 3084-1, 2731-8, CBC #### [facility] ([id number]) [address], [address] [place] [address] Urea nitrogen [Mass/Vol] 26 mg/dL High 5-23 [facility] Comment on above: Performed By: #### 3 5365-6, 25837-0, RENAL, 3084-1, 2731-8, CBC #### [facility] ([id number]) [address], [address] [place] [address] URIC ACIDon 09-23-2024 Urate [Mass/Vol] 8.3 mg/dL High 2.6-7.2 [facility] Comment on above: Performed By: #### 3 5365-6, 22637-9, RENAL, 3084-1, 2731-8, CBC #### [facility] ([id number]) [address], [address] [place] [address] URINALYSISon 09-23-2024 Bilirubin Ql (U) Negative Normal NEG [facility] Comment on above: Performed By: #### 3 5365-6, 40834-4, RENAL, 3084-1, 2731-8, CBC #### [facility] ([id number]) [address], [address] [place] [address] BLOOD/HGB Negative Normal NEG [facility] Comment on above: Performed By: #### 3 5365-6, 35052-4, RENAL, 3084-1, 2731-8, CBC #### [facility] ([id number]) [address], [address] [place] [address] Color (U) YELLOW Normal YELLOW [facility] Comment on above: Performed By: #### 3 5365-6, 39427-4, RENAL, 3084-1, 2731-8, CBC #### [facility] ([id number]) [address], [address] [place] [address] Glucose Ql (U) 100 mg/dL Abnormal NEG [facility] Comment on above: Performed By: #### 3 5365-6, 11310-3, RENAL, 3084-1, 2731-8, CBC #### [facility] ([id number]) [address], [address] [place] [address] Ketones Ql (U) Negative Normal NEG [facility] Comment on above: Performed By: #### 3 5365-6, 00836-8, RENAL, 3084-1, 2731-8, CBC #### [facility] ([id number]) [address], [address] [place] [address] Leukocyte esterase Test strip Ql (U) Negative Normal NEG [facility] Comment on above: Performed By: #### 3 5365-6, 00272-3, RENAL, 3084-1, 2731-8, CBC #### [facility] ([id number]) [address], [address] [place] [address] MUCOUS PRESENT Abnormal NONE [facility] Comment on above: Performed By: #### 3 5365-6, 28337-7, RENAL, 3084-1, 2731-8, CBC #### [facility] ([id number]) [address], [address] [place] [address] Nitrite Ql (U) Negative Normal NEG [facility] Comment on above: Performed By: #### 3 5365-6, 60906-8, RENAL, 3084-1, 2731-8, CBC #### [facility] ([id number]) [address], [facility] [address] [place] [address] pH (U) 6.0 [pH] Normal 5.0-8.5 [facility] Comment on above: Performed By: #### 3 5365-6, 63327-6, RENAL, 3084-1, 2731-8, CBC #### [facility] ([id number]) [address], [address] [place] [address] Protein Ql (U) 100 mg/dL Abnormal NEG [facility] Comment on above: Performed By: #### 3 5365-6, 67470-1, RENAL, 3084-1, 2731-8, CBC #### [facility] ([id number]) [address], [address] [place] [address] R.B.CELLS 0 /hpf Normal 0-5 [facility] Comment on above: Performed By: #### 3 5365-6, 53485-3, RENAL, 3084-1, 2731-8, CBC #### [facility] ([id number]) [address], [address] [place] [address] Specific gravity (U) [Rel density] 1.015 Normal 1.003-1.03 5 [facility] Comment on above: Performed By: #### 3 5365-6, 98483-5, RENAL, 3084-1, 2731-8, CBC #### [facility] ([id number]) [address], [address] [place] [address] SQUAMOUS EPITHELIUM 8 /hpf High 0-5 [facility] Comment on above: Performed By: #### 3 5365-6, 96342-1, RENAL, 3084-1, 2731-8, CBC #### [facility] ([id number]) [address], [address] [place] [address] TURBIDITY CLEAR Normal CLEAR [facility] Comment on above: Performed By: #### 3 5365-6, 63365-6, RENAL, 3084-1, 2731-8, CBC #### [facility] ([id number]) [address], [address] [place] [address] Urobilinogen (U) [Mass/Vol] mg/dL Normal <1.1 [facility] Comment on above: Performed By: #### 3 5365-6, 37596-8, RENAL, 3084-1, 2731-8, CBC #### [facility] ([id number]) [address], [address] [place] [address] W.B.CELLS 2 /hpf Normal 0-5 [facility] Comment on above: Performed By: #### 3 5365-6, 14663-1, RENAL, 3084-1, 2731-8, CBC #### [facility] ([id number]) [address] [place] [address], [address] [place] [address] Vitamin D+Metabolites [Mass/ Vol]on 09-23-2024 VITAMIN D 25 HYD TOT 48.5 ng/mL Normal 30-100 [facility] Comment on above: Result Comment: Vitamin D status 25 [place] Vitamin D Deficiency <20 ng/mL Insufficiency 20-29 ng/mL Sufficiency 30-100 ng/mL Toxicity >100 ng/mL NOTE: A pediatric reference range has not been established by the prefabricator of this kit. The [place] [employer] [employer] recommends a Vitamin D level of = or >20ng/mL in infants and children. Performed By: #### 3 5365-6, 24013-9, RENAL, 3084-1, 2731-8, CBC #### [facility] ([id number]) [address] [place] [address], [address] [place] [address] C Urineon 09-16-2024 Bacteria identified Cx Nom (U) Microbiology PROCEDURE: Urine Culture [R1] SOURCE: U CleanCatch BODY SITE: COLLECTED DATE/TIME: 09/14/2024 01:00 EST RECEIVED DATE/TIME: 09/14/2024 03:55 EST START DATE/TIME: 09/14/2024 03:55 EST FREE TEXT SOURCE: Hossein Hoyos DO, DO, Kevin M. FINAL REPORTS Final Report [] Verified Date/Time: 09/16/2024 10:05 EST <10,000 cfu/ml Mixed skin contaminants Performing Locations R1: This test was performed at: [facility], [address] [place] [address], [address]- , , [facility] Comment on above: Performed By: #### 2 [id number] #### [facility] [address] [place] [address] abdomen pelvis w con[facility] CT [facility] [place] [address] [place] [address] CT Scan Report Signed Patient: Guerrero Ramos MR#: [id number] 102 : 1980 Acct:[id number] Age/Sex: 44 / F ADM Date: 09/15/24 Loc: ER Room: Type: [facility] ER Attending Dr: Copies to: Marcelle Simmons MD Ordering Provider: Marcelle Simmons MD Date of Service: 09/15/24 CT/CT abdomen pelvis w con: constipation, flank pain, r/o obstruction CT ABDOMEN AND PELVIS WITH CONTRAST COMPARISON: 06/12/2024 CLINICAL DATA: Flank pain and constipation. Spiral images were obtained through the abdomen and pelvis following 90 mL Isovue-300. This CT exam was performed using one or more following dose reduction techniques: Automated exposure control, adjustment of the mA and/or kV according to patient size, or use of iterative reconstruction technique. Limited cuts through the lung bases show no contributory findings. There is some artifact related to large body habitus and technique. The gallbladder is surgically absent. The liver, spleen and pancreas show no acute findings. There is thickening of the right and slight nodularity to the left adrenal limbs. The left kidney is atrophic. The kidneys are lobulated bilaterally. No renal stones or hydronephrosis are seen. The abdominal aorta is normal caliber. There are small lymph nodes. No ascites is present. There is redemonstration of a large upper abdominal ventral wall hernia containing fat, knuckle of transverse colon and nondistended small bowel loops. There is also a second small supraumbilical ventral hernia containing only fat. The intra-abdominal small bowel loops are not distended. There is stool at the right colon. The left colon is decompressed. There is slight levoscoliotic curvature and degenerative changes at the spine. Images through the pelvis show no appendiceal inflammation. There is no dilated small bowel. There is mild distal colonic stool. No diverticular disease is present. There is an additional infraumbilical, multi lobulated ventral hernia containing mostly fat though there is also a nondistended small bowel loop. There are Essure sterilization inserts. The urinary bladder is not well distended for assessment. No free fluid is seen. CT/CT abdomen pelvis w con IMPRESSION: MULTIPLE VENTRAL HERNIAS SOME OF WHICH CONTAIN NONDISTENDED BOWEL, SIMILAR TO THE PRIOR. ATROPHIC LEFT KIDNEY AND BILATERAL RENAL LOBULATION. NO OBSTRUCTIVE UROPATHY. NO ACUTE FINDINGS. Impression dictated by: Kesha Andre M.D.09/16/2024 12:10 AM Dictation Location: [place] [address] Transcribed By: [facility] 09/16/24 001 Dictated By: Kesha Andre MD 09/16/24 0004 Signed By: 09/16/249 Normal [facility] Alanine aminotransferase [En zymatic activity/volume] in Serum or PlasmaOrdered By: Marcelle Simmons on 09-15-2024 ALT [Catalytic activity/Vol] Alanine aminotransferase [Enzymatic activity/volume] in Serum or Plasma 7-52 [facility] Albumin [Mass/volume] in Ser um or Plasma by Bromocresol green (BCG) dye binding methoOrdered By: Marcelle Simmons on 09-15-2024 Albumin BCG dye [Mass/Vol] Albumin [Mass/volume] in Serum or Plasma by Bromocresol green (BCG) dye binding metho 3.5-5.7 [facility] Alkaline phosphatase [Enzyma tic activity/volume] in Serum or PlasmaOrdered By: Marcelle Simmons on 09-15-2024 ALP [Catalytic activity/Vol] Alkaline phosphatase [Enzymatic activity/volume] in Serum or Plasma 34-104 [facility] Appearance of UrineOrdered B y: Marcelle Simmons on 09-15-2024 Appearance (U) Urine appearance Abnormal Clear [facility] Aspartate aminotransferase [ Enzymatic activity/volume] in Serum or PlasmaOrdered By: Marcelle Simmons on 09-15-2024 AST [Catalytic activity/Vol] Aspartate aminotransferase [Enzymatic activity/volume] in Serum or Plasma 13-39 [facility] Bacteria [Presence] in Urine by AutomatedOrdered By: Marcelle Simmons on 09-15-2024 Bacteria Auto Ql (U) Bacteria [Presence] in Urine by Automated None Seen [facility] Basic Metabolic Panelon 08-29 Anion gap [Moles/Vol] 12.4 mmol/L Normal 6.0-15.0 [facility] Comment on above: Performed By: #### P TT, MG, CBC, PT, CMP #### [facility] [address] Calcium [Mass/Vol] 9.5 mg/dL Normal 8.6-10.3 [facility] Comment on above: Performed By: #### P TT, MG, CBC, PT, CMP #### [facility] [address] Chloride [Moles/Vol] 107 mmol/L Normal 98-107 [facility] Comment on above: Performed By: #### P TT, MG, CBC, PT, CMP #### [address] CO2 [Moles/Vol] 22.6 mmol/L Normal 21.0-31.0 [facility] Comment on above: Performed By: #### P TT, MG, CBC, PT, CMP #### [address] Creatinine [Mass/Vol] 2.50 mg/dL High 0.60-1.20 [facility] Comment on above: Performed By: #### P TT, MG, CBC, PT, CMP #### [address] Creatinine Clr Calc Pharmacy 39.34 Normal [facility] Comment on above: Performed By: #### P TT, MG, CBC, PT, CMP #### [address] Estimated GFR 23.578 mL/Min Normal [facility] Comment on above: Performed By: #### P TT, MG, CBC, PT, CMP #### [address] Glucose [Mass/Vol] 95 mg/dL Normal 70-100 [facility] Comment on above: Result Comment: [place] Glucose Reference Range is dependent on time and content of last meal. Glucose of more than 200 mg/dL in a nonstressed, ambulatory subject supports the diagnosis of Diabetes Mellitus. ADA recommended reference range Performed By: #### P TT, MG, CBC, PT, CMP #### [address] Potassium [Moles/Vol] 4.0 mmol/L Normal 3.5-5.1 [facility] Comment on above: Performed By: #### P TT, MG, CBC, PT, CMP #### [facility] [address] Sodium [Moles/Vol] 138 mmol/L Normal 136-145 [facility] Comment on above: Performed By: #### P TT, MG, CBC, PT, CMP #### [facility] [address] Urea nitrogen [Mass/Vol] 28 mg/dL High 7-25 [facility] Comment on above: Performed By: #### P TT, MG, CBC, PT, CMP #### [facility] [address] Basophils Auto (Bld) [#/Vol] Ordered By: Marcelle Simmons on 09-15-2024 Basophils (Bld) [#/Vol] Automated basophil count 0.0-0.2 [facility] Basophils/100 WBC Auto (Bld) Ordered By: Marcelle Simmons on 09-15-2024 Basophils/100 WBC (Bld) Automated basophil % . [facility] Bilirubin Test strip Ql (U)O rdered By: Marcelle Simmons on 09-15-2024 Bilirubin Ql (U) Bilirubin.total [Presence] in Urine by Test strip Negative [facility] Bilirubin.direct [Mass/volum e] in Serum or PlasmaOrdered By: Marcelle Simmons on 09-15-2024 Bilirubin.direct [Mass/Vol] Bilirubin.direct [Mass/volume] in Serum or Plasma 0.03-0.18 [facility] Bilirubin.total [Mass/volume ] in Serum or PlasmaOrdered By: Marcelle Simmons on 09-15-2024 Bilirubin [Mass/Vol] Bilirubin.total [Mass/volume] in Serum or Plasma 0.3-1.0 [facility] Calcium [Mass/volume] in Ser um or PlasmaOrdered By: Marcelle Simmons on 09-15-2024 Calcium [Mass/Vol] Calcium [Mass/volume ] in Serum or Plasma 8.6-10.3 [facility] Carbon dioxide, total [Moles /volume] in Serum or PlasmaOrdered By: Marcelle Simmons on 09-15-2024 CO2 [Moles/Vol] Carbon dioxide, tota l [Moles/volume] in Serum or Plasma 21.0-31.0 [facility] Chloride [Moles/volume] in S prabhjot or PlasmaOrdered By: Marcelle Simmons on 09-15-2024 Chloride [Moles/Vol] Chloride [Moles/vol ume] in Serum or Plasma 98-107 [facility] Color Auto (U)Ordered By: As dennise Simmons on 09-15-2024 Color (U) Color of Urine by Auto Yellow [facility] Complete Blood Count Auto Di ffon 09-15-2024 Basophils (Bld) [#/Vol] 0.1 10*3/uL Normal 0.0-0.2 [facility] Comment on above: Result Comment: PERF ORMED BY: [facility] [address] [place] [address] PATHOLOGIST PRODUCTION CHECKER MATHEW ESPARZA M.D. Performed By: #### P TT, MG, CBC, PT, CMP #### [facility] [address] Basophils/100 WBC (Bld) 0.8 % Normal . [facility] [facility] Comment on above: Performed By: #### P TT, MG, CBC, PT, CMP #### [facility] [address] [place] [address] [place] Eosinophils (Bld) [#/Vol] 0.2 10*3/uL Normal 0.0-0.45 [facility] Comment on above: Performed By: #### P TT, MG, CBC, PT, CMP #### [facility] [address] [place] [address] [place] Eosinophils/100 WBC (Bld) 3.0 % Normal . [facility] Comment on above: Performed By: #### P TT, MG, CBC, PT, CMP #### [facility] [address] Erythrocyte distribution width (RBC) [Ratio] 15.5 % High 11.9-15.3 [facility] Comment on above: Performed By: #### P TT, MG, CBC, PT, CMP #### [address] Hematocrit (Bld) [Volume fraction] 37.0 % Normal 34.0-46.4 [facility] Comment on above: Performed By: #### P TT, MG, CBC, PT, CMP #### [address] Hemoglobin (Bld) [Mass/Vol] 12.4 g/dL Normal 11.8-15.4 [facility] Comment on above: Performed By: #### P TT, MG, CBC, PT, CMP #### [address] Lymphocytes (Bld) [#/Vol] 1.7 10*3/uL Normal 1.00-4.8 [facility] Comment on above: Performed By: #### P TT, MG, CBC, PT, CMP #### [address] Lymphocytes/100 WBC (Bld) 22.9 % Normal . [facility] Comment on above: Performed By: #### P TT, MG, CBC, PT, CMP #### [address] MCH (RBC) [Entitic mass] 25.4 pg Normal 24.7-34.3 [facility] Comment on above: Performed By: #### P TT, MG, CBC, PT, CMP #### [address] MCV (RBC) [Entitic vol] 76.0 fL Low 80-100 [facility] Comment on above: Performed By: #### P TT, MG, CBC, PT, CMP #### [address] Mean Corpuscular HGB Conc 33.5 g/dL Normal 32.0-35.0 [facility] Comment on above: Performed By: #### P TT, MG, CBC, PT, CMP #### [address] Monocytes (Bld) [#/Vol] 0.4 10*3/uL Normal 0.0-0.8 [facility] Comment on above: Performed By: #### P TT, MG, CBC, PT, CMP #### [address] Monocytes/100 WBC (Bld) 17.35 % Normal 0.00-20.00 [facility] Comment on above: Performed By: #### P TT, MG, CBC, PT, CMP #### [place] [address] [place] Monocytes/100 WBC (Bld) 5.5 % Normal . [facility] Comment on above: Performed By: #### P TT, MG, CBC, PT, CMP #### [address] Neutrophils (Bld) [#/Vol] 4.9 10*3/uL Normal 1.8-7.7 [facility] Comment on above: Performed By: #### P TT, MG, CBC, PT, CMP #### [address] Neutrophils/100 WBC (Bld) 67.8 % Normal . [facility] Comment on above: Performed By: #### P TT, MG, CBC, PT, CMP #### [address] NRBC% 0.2 /100{WBC} Normal 0-0.5 [facility] Comment on above: Performed By: #### P TT, MG, CBC, PT, CMP #### [address] Platelet mean volume (Bld) [Entitic vol] 7.0 fL Normal 6.3-10.7 [facility] Comment on above: Performed By: #### P TT, MG, CBC, PT, CMP #### [place] [address] [place] Platelets (Bld) [#/Vol] 244 10*3/uL Normal 150-450 [facility] Comment on above: Performed By: #### P TT, MG, CBC, PT, CMP #### [facility] [address] RBC (Bld) [#/Vol] 4.87 10*6/uL Normal 3.60-5.00 [facility] Comment on above: Performed By: #### P TT, MG, CBC, PT, CMP #### [facility] [address] WBC (Bld) [#/Vol] 7.2 10*3/uL Normal 3.8-11.6 [facility] Comment on above: Performed By: #### P TT, MG, CBC, PT, CMP #### [address] Creatinine [Mass/volume] in Serum or PlasmaOrdered By: Marcelle Simmons on 09-15-2024 Creatinine [Mass/Vol] Creatinine [Mass/v olume] in Serum or Plasma High 0.60-1.20 [facility] Crystals [Presence] in Urine by AutomatedOrdered By: Marcelle Simmons on 09-15-2024 Crystals Auto Ql (U) Crystals [Presence] in Urine by Automated [facility] Dipstick and Microscopicon 1 11-15-2023 Appearance (U) Cloudy Critically abnormal Clear [facility] Comment on above: Order Comment: Name Collection Type:: Clean-Voided Midstream Performed By: #### G LULS #### Point of Care testing , Bacteria,Urine None Seen Normal None Seen [facility] Comment on above: Order Comment: Name Collection Type:: Clean-Voided Midstream Performed By: #### G LULS #### Point of Care testing , Bilirubin,Urine Negative Normal Negative [facility] Comment on above: Order Comment: Name Collection Type:: Clean-Voided Midstream Performed By: #### G LULS #### Point of Care testing , Color (U) Yellow Normal Yellow [facility] Comment on above: Order Comment: Name Collection Type:: Clean-Voided Midstream Performed By: #### G LULS #### Point of Care testing , Glucose Ql (U) >= High Normal [facility] Comment on above: Order Comment: Name Collection Type:: Clean-Voided Midstream Performed By: #### G LULS #### Point of Care testing , Hyaline Casts,Urine None Normal 0-8 [facility] Comment on above: Order Comment: Name Collection Type:: Clean-Voided Midstream Performed By: #### G LULS #### Point of Care testing , Ketones Ql (U) Negative Normal Negative [facility] Comment on above: Order Comment: Name Collection Type:: Clean-Voided Midstream Performed By: #### G LULS #### Point of Care testing , Leukocyte esterase Test strip Ql (U) 2+ High Negative [facility] Comment on above: Order Comment: Name Collection Type:: Clean-Voided Midstream Performed By: #### G LULS #### Point of Care testing , Mucus,Urine Rare Normal [facility] Comment on above: Order Comment: Name Collection Type:: Clean-Voided Midstream Performed By: #### G LULS #### Point of Care testing , Nitrite,Urine Negative Normal Negative [facility] Comment on above: Order Comment: Name Collection Type:: Clean-Voided Midstream Performed By: #### G LULS #### Point of Care testing , Occult Blood,Urine 3+ High Negative [facility] Comment on above: Order Comment: Name Collection Type:: Clean-Voided Midstream Performed By: #### G LULS #### Point of Care testing , Othe Crystals,Urine 1+ Normal [facility] Comment on above: Order Comment: Name Collection Type:: Clean-Voided Midstream Performed By: #### G LULS #### Point of Care testing , pH (U) 6.0 [pH] Normal 5.0-9.0 [facility] Comment on above: Order Comment: Name Collection Type:: Clean-Voided Midstream Performed By: #### G LULS #### Point of Care testing , Protein (U) [Mass/Vol] 200 mg/dL High Negative [facility] Comment on above: Order Comment: Name Collection Type:: Clean-Voided Midstream Performed By: #### G LULS #### Point of Care testing , RBC,Urine Innumerable High 0-4 [facility] Comment on above: Order Comment: Name Collection Type:: Clean-Voided Midstream Performed By: #### G LULS #### Point of Care testing , Specificy [place],Urine 1.016 Normal 1.001-1.03 0 [facility] Comment on above: Order Comment: Name Collection Type:: Clean-Voided Midstream Performed By: #### G LULS #### Point of Care testing , Squamous Epithelial Cell,Urine 3 [HPF] High 0-2 [facility] Comment on above: Order Comment: Name Collection Type:: Clean-Voided Midstream Performed By: #### G LULS #### Point of Care testing , Urobilinogen,Urine Normal Normal Normal [facility] Comment on above: Order Comment: Name Collection Type:: Clean-Voided Midstream Performed By: #### G LULS #### Point of Care testing , WBC,Urine 20 [HPF] High 0-4 [facility] Comment on above: Order Comment: Name Collection Type:: Clean-Voided Midstream Performed By: #### G LULS #### Point of Care testing , Eosinophils Auto (Bld) [#/Vo l]Ordered By: Marcelle Simmons on 09-15-2024 Eosinophils (Bld) [#/Vol] Automated eosinophil count 0.0-0.45 [facility] Eosinophils/100 WBC Auto (Bl d)Ordered By: Marcelle Simmons on 09-15-2024 Eosinophils/100 WBC (Bld) Automated eosinophil % . [facility] Epithelial cells.squamous [# /area] in Urine sediment by Automated countOrdered By: Marcelle Simmons on 09-15-2024 Epithelial cells.squamous Auto (Urine sed) [#/Area] Epithelial cells.squamous [#/area] in Urine sediment by Automated count High 0-2 [facility] Erythrocyte distribution wid th Auto (RBC) [Ratio]Ordered By: Marcelle Simmons on 09-15-2024 Erythrocyte distribution width (RBC) [Ratio] Erythrocyte distribution width [Ratio] by Automated count High 11.9-15.3 [facility] Erythrocytes [#/area] in Uri ne sediment by Automated countOrdered By: Marcelle Simmons on 09-15-2024 RBC Auto (Urine sed) [#/Area] Erythrocytes [#/area] in Urine sediment by Automated count High 0-4 [facility] Globulin Calc (S) [Mass/Vol] Ordered By: Marcelle Simmons on 09-15-2024 Globulin (S) [Mass/Vol] Serum globulin measurement by calculation (mass/volume) [facility] Glucose [Mass/volume] in Ser um or PlasmaOrdered By: Marcelle Simmons on 09-15-2024 Glucose [Mass/Vol] Glucose [Mass/volume ] in Serum or Plasma 70-100 [facility] Comment on above: ADA recommended refe rence rangeRandom Glucose Reference Range is dependent on time and content of last meal. Glucose of more than 200 mg/dL in a nonstressed, ambulatory subject supports the diagnosis of Diabetes Mellitus. Glucose [Mass/volume] in Uri ne by Test stripOrdered By: Marcelle Simmons on 09-15-2024 Glucose Test strip (U) [Mass/Vol] Glucose [Mass/volume] in Urine by Test strip High Normal [facility] HCG ( test) IA.rapi d Ql (U)Ordered By: Marcelle Simmons on 09-15-2024 HCG ( test) Ql (U) Urine human chorionic gonadotropin (hCG) detection by immunoassay [facility] HCG,Urineon 09-15-2024 Beta HCG ( test) Ql (U) Negative Normal [facility] Comment on above: Order Comment: Name Collection Type:: Clean-Voided Midstream Result Comment: PERF ORMED BY: [address] [place] [address] PATHOLOGIST PRODUCTION CHECKER MATHEW ESPARZA M.D. Performed By: #### P TT, MG, CBC, PT, CMP #### [address] Hematocrit Auto (Bld) [Volum e fraction]Ordered By: Marcelle Simmons on 09-15-2024 Hematocrit (Bld) [Volume fraction] Hematocrit [Volume Fraction] of Blood by Automated count 34.0-46.4 [facility] Hemoglobin Test strip Ql (U) Ordered By: Marcelle Troy on 09-15-2024 Hemoglobin Ql (U) Hemoglobin [Presence ] in Urine by Test strip High Negative [facility] Hemoglobin [Mass/volume] in BloodOrdered By: Marcelle Simmons on 09-15-2024 Hemoglobin (Bld) [Mass/Vol] Hemoglobin [Mass/volume] in Blood 11.8-15.4 [facility] Hepatic Panelon 09-15-2024 Albumin [Mass/Vol] 4.1 g/dL Normal 3.5-5.7 [facility] Comment on above: Performed By: #### P TT, MG, CBC, PT, CMP #### [facility] [address] Albumin/Globulin [Mass ratio] 1.2 {ratio} Normal [facility] Comment on above: Performed By: #### P TT, MG, CBC, PT, CMP #### [facility] [address] [place] [address] [place] ALP [Catalytic activity/Vol] 73 U/L Normal 34-104 [facility] Comment on above: Performed By: #### P TT, MG, CBC, PT, CMP #### [facility] [address] [place] [address] [place] ALT [Catalytic activity/Vol] 17 U/L Normal 7-52 [facility] Comment on above: Performed By: #### P TT, MG, CBC, PT, CMP #### [facility] [address] [place] [id number] [place] AST [Catalytic activity/Vol] 17 U/L Normal 13-39 [facility] Comment on above: Performed By: #### P TT, MG, CBC, PT, CMP #### [facility] [address] [place] [address] [place] Bilirubin [Mass/Vol] 0.4 mg/dL Normal 0.3-1.0 [facility] Comment on above: Performed By: #### P TT, MG, CBC, PT, CMP #### [facility] [address] Bilirubin,Indirect 0.3 mg/dL Normal [facility] Comment on above: Performed By: #### P TT, MG, CBC, PT, CMP #### [facility] [address] Bilirubin.indirect [Mass/Vol] 0.10 mg/dL Normal 0.03-0.18 [facility] Comment on above: Performed By: #### P TT, MG, CBC, PT, CMP #### [facility] [address] Globulin (S) [Mass/Vol] 3.3 g/dL Normal [facility] Comment on above: Performed By: #### P TT, MG, CBC, PT, CMP #### [facility] [address] Protein [Mass/Vol] 7.4 g/dL Normal 6.4-8.9 [facility] Comment on above: Performed By: #### P TT, MG, CBC, PT, CMP #### [facility] [address] Hyaline casts [#/area] in Ur ine sediment by Automated countOrdered By: Marcelle Simmons on 09-15-2024 Hyaline casts Auto (Urine sed) [#/Area] Hyaline casts [#/area] in Urine sediment by Automated count 0-8 [facility] Ketones Test strip Ql (U)Ord ered By: Marcelle Simmons on 09-15-2024 Ketones Ql (U) Ketones [Presence] i n Urine by Test strip Negative [facility] Leukocyte esterase [Presence ] in Urine by Test stripOrdered By: Marcelle Simmons on 09-15-2024 Leukocyte esterase Test strip Ql (U) Leukocyte esterase [Presence] in Urine by Test strip High Negative [facility] Leukocytes [#/area] in Urine sediment by Automated countOrdered By: Marcelle Simmons on 09-15-2024 WBC Auto (Urine sed) [#/Area] Leukocytes [#/area] in Urine sediment by Automated count High 0-4 [facility] Leukocytes [#/volume] correc marcos for nucleated erythrocytes in Blood by Automated counOrdered By: Marcelle Simmons on 09-15-2024 WBC corrected for nucl RBC Auto (Bld) [#/Vol] Leukocytes [#/volume] corrected for nucleated erythrocytes in Blood by Automated coun 3.8-11.6 [facility] Lipaseon 09-15-2024 Lipase [Catalytic activity/Vol] 13.0 U/L Normal 11.0-82.0 [facility] Comment on above: Result Comment: PERF ORMED BY: [place] [address] PATHOLOGIST PRODUCTION CHECKER MATHEW ESPARZA M.D. Performed By: #### P TT, MG, CBC, PT, CMP #### [address] Lipase [Enzymatic activity/v olume] in Serum or PlasmaOrdered By: Marcelle Simmons on 09-15-2024 Lipase [Catalytic activity/Vol] Lipase [Enzymatic activity/volume] in Serum or Plasma 11.0-82.0 [facility] Lymphocytes Auto (Bld) [#/Vo l]Ordered By: Marcelle Simmons on 09-15-2024 Lymphocytes (Bld) [#/Vol] Lymphocytes [#/volume] in Blood by Automated count 1.00-4.8 [facility] Lymphocytes/100 WBC Auto (Bl d)Ordered By: Marcelle Simmons on 09-15-2024 Lymphocytes/100 WBC (Bld) Lymphocytes/100 leukocytes in Blood by Automated count . [facility] MCH Auto (RBC) [Entitic mass ]Ordered By: Marcelle Simmons on 09-15-2024 MCH (RBC) [Entitic mass] MCH [Entitic mass] by Automated count 24.7-34.3 [facility] MCHC Auto (RBC) [Mass/Vol]Or dered By: Marcelle Simmons on 09-15-2024 MCHC (RBC) [Mass/Vol] MCHC [Mass/volume] by Automated count 32.0-35.0 [facility] MCV Auto (RBC) [Entitic vol] Ordered By: Marcelle Simmons on 09-15-2024 MCV (RBC) [Entitic vol] MCV [Entitic volume] by Automated count Low 80-100 [facility] Monocyte distribution width [Entitic volume] in Blood by AutomatedOrdered By: Marcelle Simmons on 09-15-2024 Monocyte distribution width Auto (Bld) [Entitic vol] Monocyte distribution width [Entitic volume] in Blood by Automated 0.00-20.00 [facility] Monocytes Auto (Bld) [#/Vol] Ordered By: Marcelle Simmons on 09-15-2024 Monocytes (Bld) [#/Vol] Automated blood monocyte count 0.0-0.8 [facility] Monocytes/100 WBC Auto (Bld) Ordered By: Marcelle Simmons on 09-15-2024 Monocytes/100 WBC (Bld) Automated monocyte % . [facility] Mucus [Presence] in Urine by AutomatedOrdered By: Marcelle Simmons on 09-15-2024 Mucus Auto Ql (U) Mucus [Presence] in Urine by Automated [facility] Neutrophils Auto (Bld) [#/Vo l]Ordered By: Marcelle Simmons on 09-15-2024 Neutrophils (Bld) [#/Vol] Neutrophils [#/volume] in Blood by Automated count 1.8-7.7 [facility] Neutrophils/100 WBC Auto (Bl d)Ordered By: Marcelle Simmons on 09-15-2024 Neutrophils/100 WBC (Bld) Automated neutrophil % . [facility] Nitrite Test strip Ql (U)Ord ered By: Marcelle Simmons on 09-15-2024 Nitrite Ql (U) Nitrite [Presence] i n Urine by Test strip Negative [facility] No Panel InformationOrdered By: Marcelle Simmons on 09-15-2024 Estimated GFR (CKD-EPI) 23.578 mL/Min [facility] Creatinine Clearance (Chem 39.34 [facility] Nucleated erythrocytes [Pres ence] in Blood by Automated countOrdered By: Marcelle Simmons on 09-15-2024 Nucleated RBC Auto Ql (Bld) Nucleated erythrocytes [Presence] in Blood by Automated count 0-0.5 [facility] Platelet mean volume Auto (B ld) [Entitic vol]Ordered By: Marcelle Simmons on 09-15-2024 Platelet mean volume (Bld) [Entitic vol] Platelet mean volume [Entitic volume] in Blood by Automated count 6.3-10.7 [facility] Platelets Auto (Bld) [#/Vol] Ordered By: Marcelle Simmons on 09-15-2024 Platelets (Bld) [#/Vol] Platelets [#/volume] in Blood by Automated count 150-450 [facility] Potassium [Moles/volume] in Serum or PlasmaOrdered By: Marcelle Simmons on 09-15-2024 Potassium [Moles/Vol] Potassium [Moles/v olume] in Serum or Plasma 3.5-5.1 [facility] Protein Test strip (U) [Mass /Vol]Ordered By: Marcelle Simmons on 09-15-2024 Protein (U) [Mass/Vol] Protein [Mass/vol ume] in Urine by Test strip High Negative [facility] Protein [Mass/volume] in Ser um or PlasmaOrdered By: Marcelle Simmons on 09-15-2024 Protein [Mass/Vol] Protein [Mass/volume ] in Serum or Plasma 6.4-8.9 [facility] RBC Auto (Bld) [#/Vol]Ordere d By: Marcelle Simmons on 09-15-2024 RBC (Bld) [#/Vol] Erythrocytes [#/volu me] in Blood by Automated count 3.60-5.00 [facility] Serum or plasma albumin/glob ulin mass ratioOrdered By: Marcelle Simmons on 09-15-2024 Albumin/Globulin [Mass ratio] Serum or plasma albumin/globulin mass ratio [facility] Serum or plasma anion gap de terminationOrdered By: Marcelle Simmons on 09-15-2024 Anion gap [Moles/Vol] Serum or plasma an ion gap determination 6.0-15.0 [facility] Serum or plasma non-glucuron idated bilirubin measurement (mass/volume)Ordered By: Marcelle Simmons on 09-15-2024 Bilirubin.indirect [Mass/Vol] Serum or plasma non-glucuronidated bilirubin measurement (mass/volume) [facility] Sodium [Moles/volume] in Ser um or PlasmaOrdered By: Marcelle Simmons on 09-15-2024 Sodium [Moles/Vol] Sodium [Moles/volume ] in Serum or Plasma 136-145 [facility] Specific gravity Test strip (U) [Rel density]Ordered By: Marcelle Simmons on 09-15-2024 Specific gravity (U) [Rel density] Specific gravity of Urine by Test strip 1.001-1.03 0 [facility] Urea nitrogen [Mass/volume] in Serum or PlasmaOrdered By: Marcelle Simmons on 09-15-2024 Urea nitrogen [Mass/Vol] Urea nitrogen [Mass/volume] in Serum or Plasma High 7-25 [facility] Urine Cultureon 09-15-2024 Bacteria identified Cx Nom (U) <9,000 colonies/ml mixed bacterial skin contaminants 2 Days PERFORMED BY: [place] [address] PATHOLOGIST PRODUCTION CHECKER MATHEW ESPARZA M.D. Normal [facility] Comment on above: Performed By: #### P TT, MG, CBC, PT, CMP #### [address] Urobilinogen Test strip (U) [Mass/Vol]Ordered By: Marcelle Simmons on 09-15-2024 Urobilinogen (U) [Mass/Vol] Urobilinogen [Mass/volume] in Urine by Test strip Normal [facility] WBC Auto (Bld) [#/Vol]Ordere d By: Marcelle Simmons on 09-15-2024 WBC (Bld) [#/Vol] Leukocytes [#/volume ] in Blood by Automated count 3.8-11.6 [facility] pH Test strip (U)Ordered By: Marcelle Simmons on 09-15-2024 pH (U) pH of Urine by Test strip 5.0-9.[address] [facility] [address] Abdomen/Pelvis w/o Contra ston 09-14-2024 CT Abdomen/Pelvis w/o Contrast Exam Date/Time: 09/13/2024 23:32 EST Reason for Exam: ABDOMINAL PAIN, ACUTE, NONLOCALIZED;Other (please specify) Report IMPRESSION: MULTIPLE VENTRAL WALL HERNIAS DISCUSSED, CONTAINING FAT, SMALL BOWEL, AND COLON. INTERVAL DEVELOPMENT OF SMALL BOWEL DILATATION PROXIMAL TO SUPRAUMBILICAL HERNIA WITH TRANSITION OCCURRING WITHIN HERNIA. FINDINGS SUGGESTIVE OF SMALL BOWEL OBSTRUCTION. SMALL BILATERAL KIDNEYS, LEFT GREATER THAN RIGHT, UNCHANGED. NONOBSTRUCTING LEFT RENAL CALCULUS, UNCHANGED. CHOLECYSTECTOMY. CT OF THE ABDOMEN AND PELVIS WITHOUT INTRAVENOUS CONTRAST MEDIUM. HISTORY: ABDOMINAL PAIN, ACUTE, NONLOCALIZED. BILATERAL BACK PAIN RADIATING TO BILATERAL FLANK PAIN. Technical Factors: CT imaging of the abdomen and pelvis were obtained and formatted as 5 mm contiguous axial images from the domes of the diaphragm to the symphysis pubis. Sagittal and coronal reconstructions were also obtained. Oral contrast medium: None. Intravenous contrast medium: None. Comparison: CT abdomen pelvis, December 07, 2023 Findings: Lower chest: Lung bases clear. Cardiac size normal. No pericardial. No coronary artery calcified. Liver: Normal in size, shape, and attenuation. Bile Ducts: Normal in caliber. Gallbladder: Surgically absent. Pancreas: Normal without masses, cysts, ductal dilatation or calcification. Spleen: Normal in size without masses or calcifications. No splenules. Kidneys: Cranial caudal dimensions right and left kidneys, 2 cm, and 6.1 cm, unchanged. No hydronephrosis, or masses. 2 mm calculus, mid pole left kidney, unchanged.. Adrenals: Normal. Small bowel: Normal in caliber. Report Appendix: Normal. Colon: Normal in caliber. Peritoneum: No ascites, free air, or fluid collections. Vessels: Aorta normal in course and caliber. Lymph nodes: Retroperitoneal: No enlarged retroperitoneal lymph nodes. Mesenteric: No enlarged mesenteric lymph nodes. Pelvic: No enlarged pelvic lymph nodes. Ureters: Normal in course and caliber. No calcifications. Bladder: No wall thickening. Reproductive organs: No pelvic masses. Bilateral Essure devices. Abdominal Wall: Supraumbilical fat-containing 1 cm ventral wall defect, unchanged. Supraumbilical 6.3 cm ventral wall defect just inferior to aforementioned finding containing fat, small bowel, and in colon. Small bowel dilatation. Proximal to entering ventral wall hernia and transition occurring within ventral wall hernia. Supraumbilical fat-containing 6.3 cm defect, containing fat, just inferior to aforementioned finding, unchanged. 7.2 cm periumbilical anterior abdominal wall defect containing fat and small bowel, unchanged. No associated bowel dilatation or fat stranding with above findings. No diastasis of rectus musculature. No edema or masses. Bones: No bone lesions. No degenerative changes. No post operative changes. All CT scans at this facility use dose modulation, iterative reconstruction, and/or weight based dosing when appropriate to reduce radiation dose to as low as reasonably achievable. Ordering Provider: Hossein Hoyos FINAL REPORT Dictated: 09/14/2024 12:32 pm Jeramie Hare MD Signed (Electronic Signature): 09/14/2024 12:32 pm Signed by: Jeramie Hare MD Transcribed by: ORIN Technologist: OLIVIA Technical Comments Rectal Contrast Given? No Oral contrast amount in ml's: 0 Normal [facility] ED Clinical Summaryon 2023 ED Clinical Summary ED Clinical Summary [place] [id number] ED Clinical Summary Person Information Name: GUERRERO RAMOS/[facility] Age: 44 Years : 1980 Sex: Female Language: Syrian PCP: JAYESH ESCALANTE MD Marital Status: Single Visit Id: Visit Reason: Abdominal pain; Flank pain; BACK PAIN Speciality: Acuity: 3 Enc Type: Emergency Med Service: Emergency Arrival: 09/13/2024 21:44:00 Discharge: 09/14/2024 01:45:20 LOS: 000 04:01 Checkin: 09/13/2024 21:44:00 Checkout: 09/14/2024 01:45:20 Dispo Type: Home (Routine DC) EVENTS: Event Name Event Status Request Date/Time Start Date/Time Complete Date/Time Arrive Complete 09/13/2024 21:44:00 09/13/2024 21:44:00 09/13/2024 21:44:00 Document Home Meds Request 09/13/2024 21:44:00 Triage Complete 09/13/2024 21:44:00 09/13/2024 21:52:09 09/13/2024 21:52:09 Bed Assign Complete 09/13/2024 21:54:00 09/13/2024 21:54:00 09/13/2024 21:54:00 Dr Exam Complete 09/13/2024 21:54:00 09/13/2024 21:56:02 09/13/2024 21:56:02 RN Exam Complete 09/13/2024 21:54:00 09/13/2024 23:00:59 09/13/2024 23:00:59 Registration Complete 09/13/2024 21:56:02 09/13/2024 22:33:49 09/13/2024 22:33:49 Reg Complete Request 09/13/2024 22:33:49 Reg Bed Request Complete 09/13/2024 22:33:49 09/13/2024 22:33:49 09/13/2024 22:33:49 CT Complete 09/13/2024 22:43:55 09/13/2024 23:22:58 09/13/2024 23:32:03 Pending Labs Complete 09/13/2024 22:43:55 09/14/2024 01:14:48 Lab Complete 09/13/2024 22:43:55 09/13/2024 23:33:42 Meds Admin Complete 09/13/2024 22:43:55 09/13/2024 22:58:11 Pending Labs Complete 09/13/2024 23:03:09 09/13/2024 23:03:09 09/13/2024 23:33:42 Lab Complete 09/13/2024 23:03:09 09/13/2024 23:03:09 09/13/2024 23:33:42 Meds Admin Request 09/13/2024 23:40:20 Pending Labs Collected 09/14/2024 01:14:48 09/14/2024 01:14:48 Lab Collected 09/14/2024 01:14:48 09/14/2024 01:14:48 Meds Admin Complete 09/14/2024 01:21:23 09/14/2024 01:39:02 Discharge Complete 09/14/2024 01:21:28 09/14/2024 01:45:26 09/14/2024 01:45:26 Transfer Complete 09/14/2024 01:45:26 09/14/2024 01:45:26 09/14/2024 01:45:26 ADDRESS: [address] [place] [id number] PHYS DOC NOTES: MEDICAL INFORMATION: Prescriptions Given: New Medications [facility] [address] [place], [place] [id number], [phone] cephalexin (Keflex 500 mg Cap) 1 Capsules By Mouth every 12 hours for 7 Days. Refills: 0. cyclobenzaprine (cyclobenzaprine 10 mg Tab) 1 Tablets By Mouth 3 times a day as needed Muscle pain for 5 Days. Refills: 0. Medications to Continue with No Changes Other Medications alprazolam (alprazolam 0.5 mg Tab) 1 Tablets By Mouth 3 times a day as needed for anxiety. dicyclomine (dicyclomine 20 mg Tab) 1 Tablets By Mouth 4 times a day. Refills: 0. ergocalciferol (ergocalciferol 50,000 intl units Cap) famotidine (Pepcid 20 mg Tab) 1 Tablets By Mouth 2 times a day. Refills: 0. meclizine (meclizine 25 mg Tab) ondansetron (Zofran 4 mg Tab) 1 Tablets By Mouth every 8 hours as needed Nausea/Vomiting. Refills: 0. ondansetron (Zofran ODT 4 mg Tab-Dis) 1 Tablets By Mouth every 8 hours. Refills: 0. ondansetron (Zofran ODT 4 mg Tab-Dis) 1 Tablets By Mouth every 8 hours. Refills: 0. ondansetron (Zofran ODT 4 mg Tab-Dis) 1 Tablets By Mouth every 8 hours as needed Nausea/Vomiting. Refills: 0. ondansetron (Zofran ODT 4 mg Tab-Dis) 1 Tablets By Mouth 3 times a day. Refills: 0. promethazine (promethazine 12.5 mg oral tablet) 1 Tablets By Mouth every 4 hours. Refills: 0. promethazine (promethazine 25 mg Tab) 1 Tablets By Mouth every 4 hours as needed for nausea/vomiting. Refills: 0. rosuvastatin (rosuvastatin 20 mg Tab) semaglutide (Ozempic (1 mg dose) 4 mg/3 mL subcutaneous solution) sertraline (sertraline 50 mg Tab) tramadol (traMADOL 50 mg Tab) trazodone (traZODONE 100 mg Tab) PATIENT EDUCATION INFORMATION: Instructions: Dehydration, Adult; Urinary Tract Infection, Adult Follow up: With: Address: When: JAYESH ESCALANTE [address] [place] [id number] Business (1) In 3 days 09/17/2024 Comments: Call the office of your primary care doctor to arrange for follow-up within the above-stated timeframe. Follow-up with your primary care doctor about this ED visit. You should review your labs, imaging, and diagnoses from this ED visit with your primary care physician. There are occasionally non-emergent findings that require additional follow-up after your ED visit. If you were prescribed medications you should discuss possible side-effects and drug interactions with your pharmacist. Call 911 or go to the nearest Emergency Department if you develop any new or worsening symptoms. Seek immediate medical attention if you develop: worsening abdominal pain, new or worsening nausea, new or worsening vomiting, new or worsening diarrhea, chest pain, sh (more content not included)... Normal [facility] ED Note-Physicianon 09-14-20 24 ED Note-Physician ED Note-Physician Basic Information Time Seen: Hossein Hoyos DO 09/13/2024 21:56 Chief Complaint Bilateral back pain with radiation to bilateral flanks. Denies urinary complaints. States hospitalization in the past for kidney issues, unsure of specifics. History of Present Illness 44-year-old female to the emergency department chief complaint of bilateral flank pain. She reports the symptoms began over the last 2 to 3 days. She denies any nausea or vomiting. She denies any fever, sweats, chills. Is worse when she moves. She has normal intake. She is having bowel movements and passing gas. She denies any chest pain or shortness of breath. She reports she has some chronic kidney disease. Review of Systems A 10 point review of systems is negative except as noted above. Medical and Surgical History: Reviewed and noted Social history: Lives at home Tobacco: Denies Physical Exam Vitals & Measurements T: 36.3 ???C(Oral) HR: 75(Monitored) RR: 20 BP: 167/114 SpO2: 94% HT: 160 cm WT: 141 kg BMI: 55.08 VITALS: I have reviewed the triage vital signs. GENERAL: Well developed, well appearing adult in no acute distress. NEURO: Alert and oriented. Moves all extremities. Face is symmetric and expressive. EYES: PERRL. No scleral icterus or conjunctival injection. No discharge. HENT: Normocephalic, atraumatic. Hearing is grossly intact. Nares grossly patent and without discharge. Mucous membranes moist. NECK: No JVD. Patient moves neck without restriction. CARDIO: Rhythm regular. Normal rate. No murmur, rub, or gallop. Pulses equal bilaterally in the upper and lower extremity. No lower extremity edema. PULM: Lungs clear to auscultation in all osborn. No wheezes, rales, or rhonchi. No conversational dyspnea. No splinting, stridor, or accessory muscle use. GI/: Abdomen is soft and non-tender. Normoactive bowel sounds. EXTREMITIES: Symmetric muscle bulk. No joint swelling. No clubbing, cyanosis, or deformity. Bilateral lower lumbar tenderness/increased tone. SKIN: Warm and dry. Normal turgor. No rash or lesions appreciated. PSYCH: Mood, affect, and interaction is appropriate to the setting. Medical Decision Making 44-year-old female to the emergency department chief complaint of back pain. Vital stable, the patient is afebrile. Her abdominal examination is benign. She has reducible hernias ventrally. CT scan to rule out stone. Basic labs. Patient agrees with this plan. She did drive, Toradol for discomfort. CBC and chemistry are unremarkable. She does have some renal insufficiency at baseline, slightly worse today although her previous labs were months ago. Fluids were ordered for the patient. Recommended repeat renal function test with her primary care doctor as an outpatient to establish current baseline. UA questionable for UTI. CT scan without acute findings. There is a question of some dilated loop of small bowel and a ventral hernia cannot exclude small bowel obstruction. Clinically the patient is not obstructed. She has no nausea or vomiting. She is having bowel movements. She has no pain in this area. The hernia is easily reducible and nontender. Findings were discussed with the patient. We will treat her for UTI given the flank pain and questionable urinalysis. I do not believe this represents pyelonephritis however. She is allergic to penicillin, had a flat rash mild reaction. She is appropriate for cephalosporin use. I do not want to put her on Bactrim or Cipro due to her renal function. Patient agrees with this plan. First dose given in the ER. I do believe that the back pain seems more musculoskeletal by history and exam. Will try a course of Flexeril to see if this helps. Return precautions were discussed. All questions were answered. The patient was discharged home. Assessment/Plan Acute bilateral back pain (M54.9: Dorsalgia, unspecified) Acute urinary tract infection (N39.0: Urinary tract infection, site not specified) Orders: cephalexin, 500 mg = 1 cap(s), Cap, Oral, Once, Stop date 09/14/24 1:21:00 EST, STAT, Start date 09/14/24 1:21:00 EST, 09/14/24 1:21:00 EST cephalexin, 500 mg = 1 cap(s), Oral, q12hr, X 7 day(s), # 14 cap(s), Refills(s) 0, Pharmacy: [facility], 160, cm, 09/13/24 21:52:00 EST, Height/Length Dosing, 141, kg, 09/13/24 21:52:00 EST, Weight Dosing cyclobenzaprine, 10 mg = 1 tab(s), Oral, TID, PRN Muscle pain, X 5 day(s), # 15 tab(s), Refills(s) 0, Pharmacy: [facility], 160, cm, 09/13/24 21:52:00 EST, Height/Length Dosing, 141, kg, 09/13/24 21:52:00 EST, Weight Dosing ketorolac, 60 mg = 2 mL, Injection, IntraMuscular, Once, Stop date 09/13/24 22:43:00 EST, STAT, Start date 09/13/24 22:43:00 EST, 09/13/24 22:43:00 EST Sodium Chloride 0.9% intravenous solution 1,000 mL, 1,000 mL, IV, 999 mL/hr, STAT, Start date 09/13/24 23:40:00 EST, 1 hour(s), Total volume (mL): 1,000, 141 kg, 2.5, m2 Basic Metabolic Panel Beta hCG Qual CBC w/ Auto Diff CT Abdomen/Pelvis w/o Contrast eGFR (more content not included)... Normal [facility] Comment on above: Result Comment: Elec tronically Signed By: Hossein Hoyos DO\.br\Date and Time Signed: 09/14/24 01:36 EST ED Patient Summaryon 024 ED Patient Summary ED Patient Summary [address] [address] Patient Discharge Instructions Person Information Name: GUERRERO RAMOS Age: 44 Years Arrival Date: 09/13/2024 21:44:00 Discharge Diagnosis: Acute bilateral back pain; Acute urinary tract infection Primary Care Physician: JOLIE GUZMAN, JAYESH Foss Provider Information Primary Provider: Hossein Hoyos DO Advanced Office Cashier:Ankur The exam and treatment you received in the Emergency Department were for an urgent problem and are not intended as complete care. It is important that you follow up with a doctor, nurse practitioner, or physician???s surgical assistant certified for ongoing care. If your symptoms become worse or you do not improve as expected and you are unable to reach your usual health care provider, you should return to the Emergency Department. We are available 24 hours a day. GUERRERO RAMOS has been given the following list of patient education materials, prescriptions and follow-up instructions: Follow-up Instructions: With: Address: When: JAYESH ESCALANTE [address] [place] [id number] [facility] (1) In 3 days 09/17/2024 Comments: Call the office of your primary care doctor to arrange for follow-up within the above-stated timeframe. Follow-up with your primary care doctor about this ED visit. You should review your labs, imaging, and diagnoses from this ED visit with your primary care physician. There are occasionally non-emergent findings that require additional follow-up after your ED visit. If you were prescribed medications you should discuss possible side-effects and drug interactions with your pharmacist. Call 911 or go to the nearest Emergency Department if you develop any new or worsening symptoms. Seek immediate medical attention if you develop: worsening abdominal pain, new or worsening nausea, new or worsening vomiting, new or worsening diarrhea, chest pain, shortness of breath, pain with urination, problems urinating, fever, chills, weakness, or any new or worsening symptoms. Take antibiotic as prescribed. Follow-up with your doctor to discuss your ED visit. He will need repeat renal function testing within the next week. In the event that this physician does not participate in your insurance network, please consult with your insurance company to find a nearby participating provider. Patient Education Materials: Dehydration, Adult; Urinary Tract Infection, Adult A MESSAGE TO ALL PATIENTS REGARDING OPIOIDS PRESCRIPTION OPIOIDS: WHAT YOU NEED TO KNOW Prescription opioids can be used to help relieve ieqviweh-uc-mxjijy pain and are often prescribed following a surgery or injury, or for certain health conditions. These medications can be an important part of the treatment but also come with serious risks. It is important to work with your healthcare provider to make sure you are getting the safest, most effective care. WHAT ARE THE RISKS AND SIDE EFFECTS OF OPIOID USE? Prescription opioids carry serious risks of addiction and overdose, especially with prolonged use. An opioid overdose, often marked by slowed breathing, can cause sudden . The use of prescription opioids can have a number of side effects as well, even when taken as directed: ??? Tolerance???meaning you might need to take more of the medication for the same pain relief ??? Physical dependence???meaning you have symptoms of withdrawal when a medication is stopped ??? Increased sensitivity to pain ??? Constipation ??? Nausea, vomiting, and dry mouth ??? Sleepiness and dizziness ??? Confusion ??? Depression ??? Low levels of testosterone that can result in lower sex drive, energy, and strength ??? Itching and sweating RISKS ARE GREATER WITH: ??? History of drug misuse, substance use disorder, or overdose ??? Mental health conditions (such as depression or anxiety) ??? Sleep apnea ??? Older age (65 years and older) ??? Avoid alcohol while taking prescription opioids. Also, unless specifically advised by your health care provider, medications to avoid include: ??? Benzodiazepines (such as Xanax or Valium) ??? Muscle relaxants (such as Soma or Flexeril) ??? Hypnotics (such as Ambien or Lunesta) ??? Other prescription opioids KNOW YOUR OPTIONS Talk to your health care provider about ways to manage your pain that don???t involve prescription opioids. Some of these options may actually work better and have fewer risks and side effects. Options may include: ??? Pain relievers such as acetaminophen, ibuprofen, and naproxen ??? Some medication that are also used for depression or seizures ??? Physical therapy and exercise ??? Cognitive behavioral therapy, a psychological, goal-directed approach, in which patients learn how to modify physical, behavioral, and emotional triggers of pain and stress. IF YOU ARE (more content not included)... Normal [facility] UA with Cult Rflxon 09-14-20 24 Bacteria Auto Ql (U) 1+ /HPF Abnormal Trace Fish er [facility] Comment on above: Performed By: #### 4 [id number] #### [facility] [address] [place] [address] Clarity (U) Clear Normal Clear [facility] Comment on above: Performed By: #### 4 [id number] #### [facility] [address] [place] [address] Color (U) Light-Yellow Normal Yellow [facility] Comment on above: Result Comment: Micr oscopic readings are only performed on those samples that meet specific criteria set forth by [facility]. Performed By: #### 4 [id number] #### [facility] [address] [place] [address] Epithelial cells.squamous Auto (Urine sed) [#/Area] 3-4 Invalid Interpretation Code [facility] Comment on above: Performed By: #### 4 [id number] #### [facility] [address] [place] [address] Glucose Ql (U) 3+ mg/dL Abnormal Negative [facility] Comment on above: Performed By: #### 4 [id number] #### [facility] [address] [place] [address] Leukocyte esterase Auto test strip Ql (U) 75 Waylon/uL Abnormal Negative [facility] Comment on above: Performed By: #### 4 [id number] #### [facility] [address] [place] [address] pH (U) 6.0 [pH] Invalid Interpretation Code 5.0-9.0 [facility] Comment on above: Performed By: #### 4 [id number] #### [facility] [address] [place] [address] Protein Ql (U) 2+ mg/dL Abnormal Negative [facility] Comment on above: Performed By: #### 4 [id number] #### [facility] [address] [place] [address] RBC Ql (U) 0-3 Normal 0-3 [facility] Comment on above: Performed By: #### 4 [id number] #### [facility] [address] [place] [address] Specific gravity (U) [Rel density] 1.016 Invalid Interpretation Code 1.005-1.03 0 [facility] Comment on above: Performed By: #### 4 [id number] #### [facility] [address] [place] [address] WBC Auto (Urine sed) [#/Area] 31-75 Abnormal 0-5 [facility] Comment on above: Performed By: #### 4 [id number] #### [facility] [address] [place] [address] UA with Cult RflxOrdered By: SYSTEM SYSTEM on 09-14-2024 Bilirubin Ql (U) Negative Normal Negative [facility] UA Auto SS Comment on above: Performed By: #### 4 [id number] #### [facility] [address] [place] [address] Hemoglobin Auto test strip (U) [Mass/Vol] Negative Normal Negative [facility] UA Aut o SS Comment on above: Performed By: #### 4 [id number] #### [facility] [address] [place] [address] Ketones Auto test strip Ql (U) Negative Normal Negative [facility] UA Auto SS Comment on above: Performed By: #### 4 [id number] #### [facility] [address] [place] [address] Mucus Auto Ql (U) Negative Normal Negative [facility] UA Auto SS Comment on above: Performed By: #### 4 [id number] #### [facility] [address] [place] [address] Nitrite Auto test strip Ql (U) Negative Normal Negative [facility] UA Auto SS Comment on above: Performed By: #### 4 [id number] #### [facility] [address] [place] [address] Urobilinogen (U) [Mass/Vol] Negative Normal Negative [facility]A Auto SS Comment on above: Performed By: #### 4 [id number] #### [facility] [address] [place] [address] URINALYSISOrdered By: SYSTEM SYSTEM on 09-14-2024 Bacteria Auto Ql (U) 1+ /HPF Invalid Interpretation Code Trace/HPF [facility] UA Auto SS Clarity (U) Clear (09/14/24 1:00 AM) Normal Clear [facility] UA Auto SS Color (U) Light-Yellow 1 (09/14/24 1:00 AM) Normal Yellow [facility] UA Auto SS Comment on above: Interpretive Data: M icroscopic readings are only performed on those samples that meet specific criteria set forth by [facility]. Epithelial cells.squamous Auto (Urine sed) [#/Area] 3-4 graded/HPF Invalid Interpretation Code FT UA Auto SS Glucose Ql (U) 3+ mg/dL Invalid Interpretation Code Negativemg /dL [facility] UA Auto SS Leukocyte esterase Auto test strip Ql (U) 75 Waylon/uL Waylon/uL Invalid Interpretation Code NegativeLe u/uL FT UA Auto SS pH (U) 6.0 *NA* (09/14/24 1:00 AM) Invalid Interpretation Code 5.0 - 9.0 [facility] UA Auto SS Protein Ql (U) 2+ mg/dL Invalid Interpretation Code Negativemg /dL FT UA Auto SS RBC Ql (U) 0-3 graded/HPF Normal 0-3graded/ HPF [facility] UA Auto SS Specific gravity (U) [Rel density] 1.016 *NA* (09/14/24 1:00 AM) Invalid Interpretation Code 1.005 - 1.030 [facility] UA Auto SS WBC Auto (Urine sed) [#/Area] 31-75 graded/HPF Invalid Interpretation Code 0-5graded/ HPF [facility] UA Auto SS URINALYSISOrdered By: Hossein Hoyos on 09-14-2024 UA Spec Desc Clean Catch (09/14/24 1:00 AM) Normal [facility] UA Auto SS B hCG Qualon 09-13-2024 Beta HCG ( test) Ql Negative Normal [facility] Comment on above: Performed By: #### 2 [id number] #### [facility] [address] [facility] [place] [address] BMPon 09-13-2024 Anion gap [Moles/Vol] 13 mmol/L Normal 6-16 [facility] Comment on above: Performed By: #### 2 [id number] #### [facility] [address] [facility] [place] [address] Calcium [Mass/Vol] 9.5 mg/dL Normal 8.9-11.1 [facility] Comment on above: Performed By: #### 2 [id number] #### [facility] [address] [place] [address] Chloride [Moles/Vol] 104 mmol/L Normal 101-111 [facility] Comment on above: Performed By: #### 2 [id number] #### [facility] [address] [place] [address] CO2 [Moles/Vol] 25 mmol/L Normal 21-31 [facility] Comment on above: Performed By: #### 2 [id number] #### [facility] [address] [place] [address] Creatinine [Mass/Vol] 2.6 mg/dL High 0.5-1.3 [facility] Comment on above: Performed By: #### 2 [id number] #### [facility] [address] [place] [address] Glucose [Mass/Vol] 97 mg/dL Normal 55-199 [facility] Comment on above: Performed By: #### 2 [id number] #### [facility] [address] [facility] [place] [address] Potassium [Moles/Vol] 3.8 mmol/L Normal 3.5-5.3 [facility] Comment on above: Performed By: #### 2 [id number] #### [facility] [address] [place] [address] Sodium [Moles/Vol] 138 mmol/L Normal 135-145 [facility] Comment on above: Performed By: #### 2 [id number] #### [facility] [address] [place] [address] Urea nitrogen [Mass/Vol] 35 mg/dL High 5-21 [facility] Comment on above: Performed By: #### 2 [id number] #### [facility] [address] [place] [address] Urea nitrogen/Creatinine [Mass ratio] 14 No Units Normal 10-20 [facility] Comment on above: Performed By: #### 2 [id number] #### [facility] [address] [place] [address] CBC w/ Auto Diffon 4 Basophils/100 WBC (Bld) 0.8 % Normal 0.0-2.0 [facility] Comment on above: Performed By: #### 2 [id number] #### [facility] [address] [place] [address] Basophils/Leukocytes Auto (Bld) [Pure # fraction] 0.1 E9/L Normal 0.0-0.2 [facility] Comment on above: Performed By: #### 2 [id number] #### [facility] [address] [place] [address] Eosinophils (Bld) [#/Vol] 0.2 E9/L Normal 0.0-0.5 [facility] Comment on above: Performed By: #### 2 [id number] #### [facility] [address] [place] [address] Eosinophils/100 WBC (Bld) 2.5 % Normal 0.0-8.0 [facility] Comment on above: Performed By: #### 2 [id number] #### [facility] [address] [place] [address] Erythrocyte distribution width (RBC) [Ratio] 15.9 % High 10.9-14.2 [facility] Comment on above: Performed By: #### 2 780330 #### [facility] [address] [place] [address] Hematocrit (Bld) [Volume fraction] 37.1 % Normal 34.0-46.0 [facility] Comment on above: Performed By: #### 2 [id number] #### [facility] [address] [place] [address] Hemoglobin (Bld) [Mass/Vol] 12.5 g/dL Normal 12.0-16.0 [facility] Comment on above: Performed By: #### 2 [id number] #### [facility] [address] [place] [address] Lymphocytes (Bld) [#/Vol] 1.7 E9/L Normal 1.0-4.0 [facility] Comment on above: Performed By: #### 2 [id number] #### [facility] [address] [place] [address] Lymphocytes/100 WBC (Bld) 21.8 % Normal 14.0-50.0 [facility] Comment on above: Performed By: #### 2 [id number] #### [facility] [address] [place] [address] MCH (RBC) [Entitic mass] 26.0 pg Low 27.0-34.0 [facility] Comment on above: Performed By: #### 2 [id number] #### [facility] [address] [place] [address] MCHC (RBC) [Mass/Vol] 33.8 g/dL Normal 31.4-36.0 [facility] Comment on above: Performed By: #### 2 [id number] #### [facility] [address] [place] [address] MCV (RBC) [Entitic vol] 77.0 fL Low 80.0-100.0 [facility] Comment on above: Performed By: #### 2 [id number] #### [facility] [address] [place] [address] Monocytes (Bld) [#/Vol] 0.4 E9/L Normal 0.2-1.0 [facility] Comment on above: Performed By: #### 2 [id number] #### [facility] [address] [place] [address] Neutrophils (Bld) [#/Vol] 5.5 E9/L Normal 2.0-7.5 [facility] Comment on above: Performed By: #### 2 [id number] #### [facility] [address] [place] [address] Neutrophils/100 WBC (Bld) 69.6 % Normal 36.0-75.0 [facility] Comment on above: Performed By: #### 2 [id number] #### [facility] [address] [place] [address] Platelet mean volume (Bld) [Entitic vol] 7.2 fL Normal 6.4-10.8 [facility] Comment on above: Performed By: #### 2 [id number] #### [facility] [address] [place] [address] Platelets (Bld) [#/Vol] 243.0 E9/L Normal 150.0-500. 0 [facility] Comment on above: Performed By: #### 2 143911 #### [facility] [address] [place] [address] RBC (Bld) [#/Vol] 4.8 E12/L Normal 4.3-5.9 [facility] Comment on above: Performed By: #### 2 [id number] #### [facility] [address] [place] [address] WBC corrected for nucl RBC Auto (Bld) [#/Vol] 7.9 E9/L Normal 4.0-11.0 [facility] Comment on above: Performed By: #### 2 [id number] #### [facility] [address] [place] [address] CHEMISTRYOrdered By: Milton hidalgo on 09-13-2024 Anion gap [Moles/Vol] 13 mmol/L Normal 6 - 16 mEq/L Remisol Chem Calcium [Mass/Vol] 9.5 mg/dL Normal 8.9 - 11. 1 mg/dL [facility] Chloride [Moles/Vol] 104 mmol/L Normal 101 - 1 11 mmol/L [facility] CO2 [Moles/Vol] 25 mmol/L Normal 21 - 31 mmol/L [facility] Creatinine [Mass/Vol] 2.6 mg/dL High 0.5 - 1.3 mg/dL [facility] Chem eGFR 22 mL/min/1.73 m2 Low >=59mL/min /1.73 m2 [facility] Glucose [Mass/Vol] 97 mg/dL Normal 55 - 199 mg/dL [facility] Potassium [Moles/Vol] 3.8 mmol/L Normal 3.5 - 5.3 mmol/L [facility] Sodium [Moles/Vol] 138 mmol/L Normal 135 - 145 mmol/L [facility] Chem Urea nitrogen [Mass/Vol] 35 mg/dL High 5 - 21 mg/dL [facility] Urea nitrogen/Creatinine [Mass ratio] 14 mg/mg Normal 10 - 20 Rem[facility] Chem HEMATOLOGYOrdered By: SYSTEM SYSTEM on 09-13-2024 Basophils/100 WBC (Bld) 0.8 % Normal 0.0 - 2.0 % Remisol Heme Basophils/Leukocytes Auto (Bld) [Pure # fraction] 0.1 E9/L Normal 0.0 - 0.2 E9/L Remisol Heme Eosinophils (Bld) [#/Vol] 0.2 E9/L Normal 0.0 - 0.5 E9/L Remisol Heme Eosinophils/100 WBC (Bld) 2.5 % Normal 0.0 - 8.0 % Remisol Heme Erythrocyte distribution width (RBC) [Ratio] 15.9 % High 10.9 - 14.2 % Remisol Heme Hematocrit (Bld) [Volume fraction] 37.1 % Normal 34.0 - 46.0 % Remisol Heme Hemoglobin (Bld) [Mass/Vol] 12.5 g/dL Normal 12.0 - 16.0 gm/dL [facility] Heme Lymphocytes (Bld) [#/Vol] 1.7 E9/L Normal 1.0 - 4.0 E9/L Rem[facility] Heme Lymphocytes/100 WBC (Bld) 21.8 % Normal 14.0 - 50.0 % Remisol Heme MCH (RBC) [Entitic mass] 26.0 pg Low 27.0 - 34.0 pg Remisol Heme MCHC (RBC) [Mass/Vol] 33.8 g/dL Normal 31.4 - 36.0 gm/dL Remisol Heme MCV (RBC) [Entitic vol] 77.0 fL Low 80.0 - 100.0 fL Remisol Heme Monocytes (Bld) [#/Vol] 0.4 E9/L Normal 0.2 - 1.0 E9/L Remisol Heme Monocytes/100 WBC (Bld) 5.3 % Normal 4.0 - 14.0 % Rem[facility] Heme Neutrophils (Bld) [#/Vol] 5.5 E9/L Normal 2.0 - 7.5 E9/L Rem[facility] Heme Neutrophils/100 WBC (Bld) 69.6 % Normal 36.0 - 75.0 % [facility] Heme Platelet mean volume (Bld) [Entitic vol] 7.2 fL Normal 6.4 - 10.8 fL Remisol Heme Platelets (Bld) [#/Vol] 243.0 E9/L Normal 150.0 - 500.0 E9/L Remisol Heme RBC (Bld) [#/Vol] 4.8 E12/L Normal 4.3 - 5.9 E12/L Remisol Heme WBC corrected for nucl RBC Auto (Bld) [#/Vol] 7.9 E9/L Normal 4.0 - 11.0 E9/L Remisol Heme SEROLOGYOrdered By: Milton weber on 09-13-2024 Beta HCG ( test) Ql Negative (09/13/24 10:55 PM) Normal [facility] Man Sero UA with Cult Rflxon 09-13-20 Type of Urine collection method Clean Catch Normal [facility] Comment on above: Performed By: #### 4 [id number] #### [facility] [address] [place] [address] eGFRon 09-13-2024 eGFR 22 mL/min/1.73 m2 Low >=59 [facility] Comment on above: Performed By: #### 1 [id number] #### [facility] [address] [place] [address] TSH Qnon 08-25-2024 TSH 4.45 uIU/mL Normal 0.49-4.67 [facility] Comment on above: Performed By: #### 3 016-3 #### [facility] ([id number]) [address], [address] [place] [address] 25(OH)D3 SerPl-mCncon 2023 25-hydroxyvitamin D3 [Mass/Vol] 48.1 ng/mL Normal 31.0-80.0 [facility] Comment on above: Order Comment: Speci men Type: BLOOD SPECIMENOrdering Facility: [facility] Address: [address] [place] [address] Performed By: #### 1 989-3 ####[facility] LABCLIA [id number] [facility] [id number] [id number] [place] 25-hydroxyvitamin D3 [Mass/V ol]on 07-07-2024 Interpretation and review of laboratory results Normal [facility] CNOVon 07-07-2024 CNOV Office Visit (GENNAOMIN ) ----- GUERRERO RAMOS ([id number]) 1980 F Date Time Provider Department 07/07/24 8:50 AM JERAMIE FRANCO During your visit today, we recorded the following information about you: Temperature Pulse Blood pressure Weight 98.1 degrees 93/minute 150/83 141.1 kg Height 1.6 m Tessa Desai MA 07/07/2024 8:18 AM Signed What is the reason for your visit today? Est Who is your referring physician? Dr. Franco Are you having poor oral intake? NO Have you had unintentional weight loss of 15 lbs/7 Kg in the last 3-6 months? NO Bowels: regular Wound: clean AND dry Temperature: No Drains: No Rashida Joyner MD 07/07/2024 10:01 AM Signed [facility] Abdominal [facility] - HISTORY AND PHYSICAL Chief Complaint: Two incisional hernias- abdominal pain HPI: Guerrero Ramos is a 43 year old female who presents for a follow-up appointment with Dr Franco for the management of two incisional ventral hernias associated with moderate abdominal pain. Patient history is significant for BMI 59, T2DM, Colon cancer c/b intussusception s/p L. Hemicolectomy and partial omentectomy (2015) and lap cholecystectomy (2004) . The patient came to the clinic on 03/2024 for the management of a 10 x 10cm R. Epigastric hernia lateral to midline incision of her colectomy as well as another incisional/umbilical hernia. A CT A/P at the time confirmed two ventral hernias containing fat and bowel. Due to her high BMI, patient was counseled to follow-up with the [facility] for BMI optimization (Goal BMI 55) and follow-up in 3 months for further evaluation. Since then, her course has been complicated by an admission to an OSH ED for lower abdominal pain in 05/2024 which she tought was related to her hernias. She was diagnosed with an UTI and was discharged. No other complications related to her hernias. The patient reports she is now tolerating Phentermine 18.75 mg with a weight loss estimated at 20 lbs. Of note, she had a hx of not tolerating other weight loss medications such as Ozempic, Farxega and Mounjaro due to GI upset. She is motivated to lose more weight and reports there has been no changes in her symptoms. CT A/P from her admission in May showed no changes in hernia size or number. Current BMI 55.09 (311 lbs). Relevant previous operations include: Colon cancer c/b intussusception s/p L. Hemicolectomy and partial omentectomy (2015), lap cholecystectomy (2004) No history of Psychiatric Disorders or Opioid Use Independent Light physical labor Sporadic (once/month) Diabetes Mellitus History of open abdomen No past medical history on file. No past surgical history on file. Social History Tobacco Use Smoking status: Never Smokeless tobacco: Never Additional social history not relevant to the patient's HPI No family history on file. Additional family history not relevant to the patient's HPI ALLERGIES Allergen Reactions Penicillins Rash Current Outpatient Medications Medication Sig Dispense Refill ALPRAZolam (XANAX) 0.25 mg tablet Take 0.25 mg by mouth at bedtime as needed. Meloxicam 7.5 mg/5 mL susp Take by mouth. levothyroxine 75 mcg cap Take 75 mcg by mouth daily before breakfast. meclizine (ANTIVERT) 25 mg tab Take 25 mg by mouth three times a day. amLODIPine (NORVASC) 2.5 mg tablet Take by mouth once daily. ondansetron HCl (ZOFRAN ORAL) Take by mouth as needed. insulin glargine,hum.rec.anlog (TOUJEO MAX U-300 SOLOSTAR SUBCUTANEOUS) Inject subcutaneously. tolterodine (DETROL) 2 mg tablet Take 2 mg by mouth two times a day. mirabegron (MYRBETRIQ) 25 mg Tb24 Take by mouth. rosuvastatin (CRESTOR) 20 mg tablet Take 20 mg by mouth once daily. sertraline (ZOLOFT) 50 mg tablet Take 50 mg by mouth once daily. ergocalciferol 50,000 unit capsule (VITAMIN D2, DRISDOL) Take 50,000 Units by mouth one time a week. No current facility-administered medications for this visit. REVIEW OF SYSTEMS GENERAL: No fevers. RESPIRATORY: No cough or shortness of breath CARDIOVASCULAR: No chest pain GI: No nausea, vomiting, or diarrhea The remainder of the review of systems is negative. BP 150/83 Pulse 93 Temp 36.7 ?C (98.1 ?F) (Oral) Ht 160 cm (5' 3 ) Wt (!) 141.1 kg (311 lb) LMP 03/24/2024 (Approximate) BMI 55.09 kg/m? Physical findings of this patient are as follows (COMPLETE 10 INCLUDING HEART AND LUNG EXAM OR CHOOSE NORMAL EXAM IF APPROPRIATE): Physical Exam Physical Exam Constitutional: The patient is well-developed and in no distress. Cardiovascular: Regular rate. Pulmonary/Chest: Effort normal and breathing comfortably on room air. Abdominal: Soft, mildly tender on palpation of the hernias, non distended Neurological: Alert. Skin: Skin is warm and dry. Psychiatric: Affect and judgment normal. Relevant Hernia Findings - 10 x 10cm R. Epigas (more content not included)... Normal [facility] CNOV Office Visit (GENSMN ) ----- GUERRERO RAMOS ([id number]) 1980 F Date Time Provider Department 07/07/24 MIGUEL ÁNGEL GARZA During your visit today, we recorded the following information about you: Temperature Pulse Blood pressure Weight 98.1 degrees 93/minute 150/83 141.1 kg Height 1.6 m Miguel Ángel Garza APRN.[facility] 07/07/2024 11:53 AM Signed BMI Obesity Medicine Consultation Date of Service: 07/07/24 Reason for Consultation: Obesity. CC/HPI: Subjective Guerrero Ramos is a 43 year old female with obesity who presents to the [facility] for an initial evaluation of her obesity. Primary reason for wanting obesity treatment: Hernia surgery. Treatment options of interest: Medical. Overall goal: 250 lbs. Have you tried weight loss medications? If so, which ones? Greg Tirado Weight History: Causes of Weight Gain: Family history of obesity:No Post weight retention: No Menopause associated weight gain:N/A Past/Current medication-induced weight gain: No Tobacco cessation associated weight gain:No Weight gain associated with reduced physical activity:Yes Adult or Childhood Obesity: Adult Lifestyle Factors: Diet: 24 Hour Recall: Breakfast: Special K Cereal Lunch: Lean Cuisine Dinner: Fruit Snacks: 1 month ago - cut out Water: 3 bottles per day Do you think that you have a healthy diet? No. Overall characterization of present diet:Unstructured, unhealthy snacking, evening snacking, and skip meals. How have you tried to lose weight in the past? Yes. What worked? Kassandra. Exercise: Do you exercise ? No Are you able to walk up a flight of stairs or a small hill? No If no, why not? Vertigo. Have you tried exercise programs in the past for weight loss? Self-directed What worked? None Stress: Stress level during the last year: 0 out of ten. Sleep: Inadequate sleep duration(<6hr/night): No. 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 Poor quality, unrestful sleep:Yes. Wakes: 9 AM Bedtime: 11:30 PM LOUIS: Yes CPAP: Tried in the past and had claustrophobia Past Medical and Surgical History: ACTIVE PROBLEM LIST Class 3 Severe Obesity Due to Excess Calories With Serious Comorbidity and Body Mass Index (Bmi) of 50.0 to 59.9 in Adult (Hcc) Snoring No past surgical history on file. Obesity Related Comorbidities/ROS/ FHx: Fatigue: No h/o shortness of breath, BAHENA, PND, edema: No h/o uncontrolled blood pressure: No h/o palpitations/cardiac arrhythmia: No h/o chest pain: No h/o CV event (SC, arrhythmias, CVA, TIA): No h/o of PE, bleeding diathesis, hypercoaguable syndrome, excessive bleeding, > 1 DVT, on chronic anticoagulation:No. Stress incontinence:No. GERD: Occasionally .- Once every 6 months Fatty liver disease:No. Migraine MORSE and visual changes:No. Glaucoma: No Seizures: No. h/o: hyperthyroidism: No h/o drug or alcohol abuse: No MAOIs use: No Loop diuretic use: No h/o kidney disease: Renal insufficiency h/o kidney stones: Yes h/o pancreatitis: No h/o gallstones: No Sexually Active? No Gastroparesis: No Medullary thyroid cancern or MEN-2? No Symptoms of diabetes: Hba1c was 7.2 (06/2024) . Symptoms of hypothyroidism: On Synthroid . Symptoms of Cushings disease:No. Symptoms of PCOS:No. Family history of diabetes: Grandma Family history of cancer: Throat Cancer and Colon Cancer . Family history of blood clots/ blood disorder:No. 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 Current Smoker w/in 1 year:No. Vital Signs BP 150/83 Pulse 93 Temp 36.7 ?C (98.1 ?F) Ht 160 cm (5' 3 ) Wt (!) 141.1 kg (311 lb) LMP 03/24/2024 (Approximate) BMI 55.09 kg/m? PE: NAD:Mixed central and gluteofemoral adiposity. No acanthosis, no lipoma, no pallor. No supraclavicular adiposity. No dorsal adiposity. PERRL. Tongue moist, pink. No OP crowding. Good dental hygiene Lungs: Lungs clear to auscultation. No wheezing, rhonchi, rales Heart: RRR without murmur, gallop, or rubs. No ectopy Abdomen: Soft:Large pannus No striae. Nontender. Non distended. Peripheral pulses: Normal Extremities: No clubbing, cyanosis, or edema. Results: reviewed with the patient No visits with results within 3 Month(s) from this visit. Latest known visit with results is: No results found for any previous visit. Impression: Guerrero Ramos is a 43 year old female with Class III obesity who presents to the [facility] and interested in the combination of behavioral and pharmacological for treatment. She has adult onset obesity with several periods of weight loss followed by weight gain . The causes of her obesity are multifactorial and may include increased consumption of high calorie/process foods, irregular eating pat (more content not included)... Normal [facility] THYROID STIMULATING HORMONEo n 07-07-2024 TSH Qn 6.110 m[IU]/L High [facility] Comment on above: If the patient is pr egnant, TSH reference range varies by gestational period: First Trimester (weeks 9-12): 0.180-2.990 mIU/L Second Trimester: 0.110-3.980 mIU/L Third Trimester: 0.480-4.710 mIU/L Vicente Nash et al. A Practical Approach for the Verifications and Determination of Site- and Trimester-Specific Reference Intervals for Thyroid Function tests in . Thyroid, 2019:29:3:412-420. Ham E, et al. 2017 Guidelines of the [place] Thyroid Association for the Diagnosis and Management of Thyroid Disease during and the . Thyroid, 2017:27:3:315-389. TSH Qnon 07-07-2024 Interpretation and review of laboratory results Abnormal [facility] TSH SerPl-aCncon 07-07-2024 TSH Qn 6.110 m[IU]/L High 0.270-4.20 0 [facility] Comment on above: Order Comment: Speci men Type: BLOOD SPECIMENOrdering Facility: [facility] Address: [address] [place] [address] Result Comment: If t he patient is , TSH reference range varies by gestational period: First Trimester (weeks 9-12): 0.180-2.990 mIU/L Second Trimester: 0.110-3.980 mIU/L Third Trimester: 0.480-4.710 mIU/L Vicente Nash et al. A Practical Approach for the Verifications and Determination of Site- and Trimester-Specific Reference Intervals for Thyroid Function tests in . Thyroid, 2019:29:3:412-420. Ham E, et al. 2017 Guidelines of the [place] Thyroid Association for the Diagnosis and Management of Thyroid Disease during and the . Thyroid, 2017:27:3:315-389. Performed By: #### 3 016-3 ####[facility] LABCLIA [id number] [place] [id number] [place] VITAMIN D 25 HYDROXYon 07-07 25-hydroxyvitamin D3 [Mass/Vol] 48.1 ng/mL 31.0 - 80.0 ng/mL [facility] MICROALBUMIN - ALBUMIN:CREAT ININE URINE RATIOon 06-23-2024 ALB/CREAT RATIO 2061.0 mg/g creat High 0.0-30.0 Pr [facility] Comment on above: Performed By: #### M ALBU #### [facility] ([id number]) [address] [place] [address] Albumin DL <= 20 mg/L (U) [Mass/Vol] 177.7 mg/dL High 0.0-1.9 [facility] Comment on above: Performed By: #### M ALBU #### [facility] ([id number]) [address] [place] [address] URINE CREAT 86.22 mg/dL Normal [facility] Comment on above: Performed By: #### M ALBU #### [facility] ([id number]) [address] [place] [address] Automated basophil %Ordered By: Libra Li on 06-16-2024 Basophils/100 WBC (Bld) 0.7 % Normal . [facility] Comment on above: Performed By: #### P TT, MG, CBC, PT, CMP #### [address] Automated basophil countOrde red By: Libra Li on 06-16-2024 Basophils (Bld) [#/Vol] 0.0 10*3/uL Normal 0.0-0.2 [facility] Comment on above: Result Comment: PERF ORMED BY: [place] [address] PATHOLOGIST PRODUCTION CHECKER HELDER CASTELLANOS M.D. Performed By: #### P TT, MG, CBC, PT, CMP #### [address] Automated blood monocyte cou ntOrdered By: Libra Li on 06-16-2024 Monocytes (Bld) [#/Vol] 0.4 10*3/uL Normal 0.0-0.8 [facility] Comment on above: Performed By: #### P TT, MG, CBC, PT, CMP #### [address] Automated eosinophil %Ordere d By: Libra Li on 06-16-2024 Eosinophils/100 WBC (Bld) 4.9 % Normal . [facility] Comment on above: Performed By: #### P TT, MG, CBC, PT, CMP #### [address] Automated eosinophil countOr dered By: Libra Li on 06-16-2024 Eosinophils (Bld) [#/Vol] 0.3 10*3/uL Normal 0.0-0.45 [facility] Comment on above: Performed By: #### P TT, MG, CBC, PT, CMP #### [address] Automated monocyte %Ordered By: Libra Li on 06-16-2024 Monocytes/100 WBC (Bld) 6.4 % Normal . [facility] Comment on above: Performed By: #### P TT, MG, CBC, PT, CMP #### [address] Automated neutrophil %Ordere d By: Libravictor hugo Li on 06-16-2024 Neutrophils/100 WBC (Bld) 60.7 % Normal . [facility] Comment on above: Performed By: #### P TT, MG, CBC, PT, CMP #### [address] Basic Metabolic Panelon 05-29 Creatinine Clr Calc Pharmacy 44.42 Normal [facility] Comment on above: Result Comment: PERF ORMED BY: [place] [address] PATHOLOGIST PRODUCTION CHECKER HELDER CASTELLANOS M.D. Performed By: #### P TT, MG, CBC, PT, CMP #### [address] GFR/1.73 sq M.predicted MDRD (S/P/Bld) [Vol rate/Area] 25.168 mL/min/{1.73_m2} Normal [facility] Comment on above: Performed By: #### P TT, MG, CBC, PT, CMP #### [address] Calcium [Mass/volume] in Ser um or PlasmaOrdered By: Libra Li on 06-16-2024 Calcium [Mass/Vol] 8.8 mg/dL Normal 8.6-10.3 [facility] Comment on above: Performed By: #### P TT, MG, CBC, PT, CMP #### [address] Capillary blood glucose darryn urement by glucometer (mass/volume)Ordered By: Dontae Hernandez on 06-16-2024 Glucose [Mass/Vol] 175 mg/dL Normal [facility] Comment on above: Random Glucose Refer ence Range is dependent on time and content of last meal. Glucose of more than 200 mg/dL in a nonstressed, ambulatory subject supports the diagnosis of Diabetes Mellitus. Result Comment: [facility] Glucose Reference Range is dependent on time and content of last meal. Glucose of more than 200 mg/dL in a nonstressed, ambulatory subject supports the diagnosis of Diabetes Mellitus. PERFORMED BY: [place] [address] PATHOLOGIST PRODUCTION CHECKER HELDER CASTELLANOS M.D. Performed By: #### P TT, MG, CBC, PT, CMP #### [address] Carbon dioxide, total [Moles /volume] in Serum or PlasmaOrdered By: Libra Li on 06-16-2024 CO2 [Moles/Vol] 23.2 mmol/L Normal 21.0-31.0 [facility] Comment on above: Performed By: #### P TT, MG, CBC, PT, CMP #### [address] Chloride [Moles/volume] in S prabhjot or PlasmaOrdered By: Libra Li on 06-16-2024 Chloride [Moles/Vol] 113 mmol/L High 98-107 [facility] Comment on above: Performed By: #### P TT, MG, CBC, PT, CMP #### [address] Complete Blood Count Auto Di ffon 06-16-2024 Mean Corpuscular HGB Conc 33.5 g/dL Normal 32.0-35.0 [facility] Comment on above: Performed By: #### P TT, MG, CBC, PT, CMP #### [address] NRBC% 0.1 /100{WBC} Normal 0-0.5 [facility] Comment on above: Performed By: #### P TT, MG, CBC, PT, CMP #### [address] [address] Creatinine [Mass/volume] in Serum or PlasmaOrdered By: Libra Li on 06-16-2024 Creatinine [Mass/Vol] 2.38 mg/dL High 0.60-1.20 [facility] Comment on above: Performed By: #### P TT, MG, CBC, PT, CMP #### [facility] [address] Erythrocyte distribution wid th [Ratio] by Automated countOrdered By: Libra Li on 06-16-2024 Erythrocyte distribution width (RBC) [Ratio] 16.0 % High 11.9-15.3 [facility] Comment on above: Performed By: #### P TT, MG, CBC, PT, CMP #### [facility] [address] Erythrocytes [#/volume] in B lood by Automated countOrdered By: Libra Corea on 06-16-2024 RBC (Bld) [#/Vol] 4.19 10*6/uL Normal 3.60-5.00 [facility] Comment on above: Performed By: #### P TT, MG, CBC, PT, CMP #### [facility] [address] Glucose Poct Glucometerson 0 06-16-2024 Glucose [Mass/Vol] 121 mg/dL Normal [facility] Comment on above: Result Comment: [place] Glucose Reference Range is dependent on time and content of last meal. Glucose of more than 200 mg/dL in a nonstressed, ambulatory subject supports the diagnosis of Diabetes Mellitus. PERFORMED BY: [place] [address] PATHOLOGIST PRODUCTION CHECKER HELDER CASTELLANOS M.D. Performed By: #### P TT, MG, CBC, PT, CMP #### [facility] [address] Glucose [Mass/volume] in Ser um or PlasmaOrdered By: Libra Li on 06-16-2024 Glucose [Mass/Vol] 102 mg/dL High 70-100 [facility] Comment on above: ADA recommended refe rence rangeRandom Glucose Reference Range is dependent on time and content of last meal. Glucose of more than 200 mg/dL in a nonstressed, ambulatory subject supports the diagnosis of Diabetes Mellitus. Result Comment: [facility] Glucose Reference Range is dependent on time and content of last meal. Glucose of more than 200 mg/dL in a nonstressed, ambulatory subject supports the diagnosis of Diabetes Mellitus. ADA recommended reference range Performed By: #### P TT, MG, CBC, PT, CMP #### [facility] [address] [place] [address] Hematocrit [Volume Fraction] of Blood by Automated countOrdered By: Libra Li on 06-16-2024 Hematocrit (Bld) [Volume fraction] 33.4 % Low 34.0-46.4 [facility] Comment on above: Performed By: #### P TT, MG, CBC, PT, CMP #### [address] Hemoglobin [Mass/volume] in BloodOrdered By: Libra Li on 06-16-2024 Hemoglobin (Bld) [Mass/Vol] 11.2 g/dL Low 11.8-15.4 [facility] Comment on above: Performed By: #### P TT, MG, CBC, PT, CMP #### [address] Leukocytes [#/volume] correc marcos for nucleated erythrocytes in Blood by Automated counOrdered By: Libra Li on 06-16-2024 WBC corrected for nucl RBC Auto (Bld) [#/Vol] 5.6 10*3/uL 3.8-11.6 [facility] Leukocytes [#/volume] in Blo od by Automated countOrdered By: Libra Corea on 06-16-2024 WBC (Bld) [#/Vol] 5.6 10*3/uL Normal 3.8-11.6 [facility] Comment on above: Performed By: #### P TT, MG, CBC, PT, CMP #### [place] [address] [place] Lymphocytes [#/volume] in Bl ood by Automated countOrdered By: Libra Corea on 06-16-2024 Lymphocytes (Bld) [#/Vol] 1.5 10*3/uL Normal 1.00-4.8 [facility] Comment on above: Performed By: #### P TT, MG, CBC, PT, CMP #### [facility] [address] Lymphocytes/100 leukocytes i n Blood by Automated countOrdered By: Libra Li on 06-16-2024 Lymphocytes/100 WBC (Bld) 27.3 % Normal . [facility] Comment on above: Performed By: #### P TT, MG, CBC, PT, CMP #### [address] MCH [Entitic mass] by Automa marcos countOrdered By: Libra Li on 06-16-2024 MCH (RBC) [Entitic mass] 26.7 pg Normal 24.7-34.3 [facility] Comment on above: Performed By: #### P TT, MG, CBC, PT, CMP #### [address] MCHC Auto (RBC) [Mass/Vol]Or dered By: Libra Li on 06-16-2024 MCHC (RBC) [Mass/Vol] 33.5 g/dL 32.0-35.0 [facility] MCV [Entitic volume] by Auto mated countOrdered By: Libra Li on 06-16-2024 MCV (RBC) [Entitic vol] 79.7 fL Low 80-100 [facility] Comment on above: Performed By: #### P TT, MG, CBC, PT, CMP #### [facility] [address] [place] [address] Neutrophils [#/volume] in Bl ood by Automated countOrdered By: Libra Corea on 06-16-2024 Neutrophils (Bld) [#/Vol] 3.4 10*3/uL Normal 1.8-7.7 [facility] Comment on above: Performed By: #### P TT, MG, CBC, PT, CMP #### [facility] [address] No Panel InformationOrdered By: Libra Li on 06-16-2024 Estimated GFR (CKD-EPI) 25.168 mL/Min [facility] Creatinine Clearance (Chem 44.42 [facility] Nucleated erythrocytes [Pres ence] in Blood by Automated countOrdered By: Libra Li on 06-16-2024 Nucleated RBC Auto Ql (Bld) 0.1 /100{WBC} 0-0.5 [facility] Platelet mean volume [Entiti c volume] in Blood by Automated countOrdered By: Libra Li on 06-16-2024 Platelet mean volume (Bld) [Entitic vol] 7.5 fL Normal 6.3-10.7 [facility] Comment on above: Performed By: #### P TT, MG, CBC, PT, CMP #### [facility] [address] [place] [address] Platelets [#/volume] in Bloo d by Automated countOrdered By: Libra Li on 06-16-2024 Platelets (Bld) [#/Vol] 197 10*3/uL Normal 150-450 [facility] Comment on above: Performed By: #### P TT, MG, CBC, PT, CMP #### [address] Potassium [Moles/volume] in Serum or PlasmaOrdered By: Libra Li on 06-16-2024 Potassium [Moles/Vol] 3.9 mmol/L Normal 3.5-5.1 [facility] Comment on above: Performed By: #### P TT, MG, CBC, PT, CMP #### [facility] [address] [place] [address] Serum or plasma anion gap de terminationOrdered By: Libra Li on 06-16-2024 Anion gap [Moles/Vol] 8.7 mmol/L Normal 6.0-15.0 [facility] Comment on above: Performed By: #### P TT, MG, CBC, PT, CMP #### [facility] [address] Sodium [Moles/volume] in Ser um or PlasmaOrdered By: Libra Guillermo on 06-16-2024 Sodium [Moles/Vol] 141 mmol/L Normal 136-145 [facility] Comment on above: Performed By: #### P TT, MG, CBC, PT, CMP #### [facility] [address] [place] [address] Urea nitrogen [Mass/volume] in Serum or PlasmaOrdered By: Libravictor hugo Li on 06-16-2024 Urea nitrogen [Mass/Vol] 25 mg/dL Normal 7-25 [facility] Comment on above: Performed By: #### P TT, MG, CBC, PT, CMP #### [address] A1C with Estimated Average Nicolas tirado 06-15-2024 Glucose [Mass/Vol] 160 mg/dL Normal [facility] Comment on above: Result Comment: PERF ORMED BY: [place] [address] PATHOLOGIST PRODUCTION CHECKER HELDER CASTELLANOS M.D. Performed By: #### P TT, MG, CBC, PT, CMP #### [address] Basic Metabolic Panelon 05-29 Anion gap [Moles/Vol] 11.7 mmol/L Normal 6.0-15.0 [facility] Comment on above: Performed By: #### G LULS #### Point of Care testing , Calcium [Mass/Vol] 8.6 mg/dL Normal 8.6-10.3 [facility] Comment on above: Performed By: #### G LULS #### Point of Care testing , Chloride [Moles/Vol] 110 mmol/L High 98-107 [facility] Comment on above: Performed By: #### G LULS #### Point of Care testing , CO2 [Moles/Vol] 22.2 mmol/L Normal 21.0-31.0 [facility] Comment on above: Performed By: #### G LULS #### Point of Care testing , Creatinine [Mass/Vol] 2.48 mg/dL High 0.60-1.20 [facility] Comment on above: Performed By: #### G LULS #### Point of Care testing , Creatinine Clr Calc Pharmacy 42.30 Normal [facility] Comment on above: Result Comment: PERF ORMED BY: [facility] [place] [address] PATHOLOGIST PRODUCTION CHECKER HELDER CASTELLANOS M.D. Performed By: #### G LULS #### Point of Care testing , GFR/1.73 sq M.predicted MDRD (S/P/Bld) [Vol rate/Area] 23.956 mL/min/{1.73_m2} Normal [facility] Comment on above: Performed By: #### G LULS #### Point of Care testing , Glucose [Mass/Vol] 96 mg/dL Normal 70-100 [facility] Comment on above: Result Comment: [facility] Glucose Reference Range is dependent on time and content of last meal. Glucose of more than 200 mg/dL in a nonstressed, ambulatory subject supports the diagnosis of Diabetes Mellitus. ADA recommended reference range Performed By: #### G LULS #### Point of Care testing , Potassium [Moles/Vol] 3.9 mmol/L Normal 3.5-5.1 [facility] Comment on above: Performed By: #### G LULS #### Point of Care testing , Sodium [Moles/Vol] 140 mmol/L Normal 136-145 [facility] Comment on above: Performed By: #### G LULS #### Point of Care testing , Urea nitrogen [Mass/Vol] 28 mg/dL High 7-25 [facility] Comment on above: Performed By: #### G LULS #### Point of Care testing , Complete Blood Count Auto Di ffon 06-15-2024 Basophils (Bld) [#/Vol] 0.0 10*3/uL Normal 0.0-0.2 [facility] Comment on above: Result Comment: PERF ORMED BY: [facility] [place] [address] PATHOLOGIST PRODUCTION CHECKER HELDER CASTELLANOS M.D. Performed By: #### B MP, CBC ####[address] Basophils/100 WBC (Bld) 0.4 % Normal . [facility] Comment on above: Performed By: #### B MP, CBC ####[address] Eosinophils (Bld) [#/Vol] 0.2 10*3/uL Normal 0.0-0.45 [facility] Comment on above: Performed By: #### B MP, CBC ####[address] Eosinophils/100 WBC (Bld) 4.1 % Normal . [facility] Comment on above: Performed By: #### B MP, CBC ####[address] Erythrocyte distribution width (RBC) [Ratio] 15.4 % High 11.9-15.3 [facility] Comment on above: Performed By: #### B MP, CBC ####[address] Hematocrit (Bld) [Volume fraction] 34.5 % Normal 34.0-46.4 [facility] Comment on above: Performed By: #### B MP, CBC ####[address] Hemoglobin (Bld) [Mass/Vol] 11.6 g/dL Low 11.8-15.4 [facility] Comment on above: Performed By: #### B MP, CBC ####[address] Lymphocytes (Bld) [#/Vol] 1.4 10*3/uL Normal 1.00-4.8 [facility] Comment on above: Performed By: #### B MP, CBC ####[address] Lymphocytes/100 WBC (Bld) 24.1 % Normal . [facility] Comment on above: Performed By: #### B MP, CBC ####[address] MCH (RBC) [Entitic mass] 27.2 pg Normal 24.7-34.3 [facility] Comment on above: Performed By: #### B MP, CBC ####[address] MCV (RBC) [Entitic vol] 81.0 fL Normal 80-100 [facility] Comment on above: Performed By: #### B MP, CBC ####[address] Mean Corpuscular HGB Conc 33.6 g/dL Normal 32.0-35.0 [facility] Comment on above: Performed By: #### B MP, CBC ####[address] Monocytes (Bld) [#/Vol] 0.3 10*3/uL Normal 0.0-0.8 [facility] Comment on above: Performed By: #### B MP, CBC ####[address] Monocytes/100 WBC (Bld) 6.2 % Normal . [facility] Comment on above: Performed By: #### B MP, CBC ####[address] Neutrophils (Bld) [#/Vol] 3.7 10*3/uL Normal 1.8-7.7 [facility] Comment on above: Performed By: #### B MP, CBC ####[address] Neutrophils/100 WBC (Bld) 65.2 % Normal . [facility] Comment on above: Performed By: #### B MP, CBC ####[address] NRBC% 0.1 /100{WBC} Normal 0-0.5 [facility] Comment on above: Performed By: #### B MP, CBC ####[place] [id number] [facility] Platelet mean volume (Bld) [Entitic vol] 7.4 fL Normal 6.3-10.7 [facility] Comment on above: Performed By: #### B MP, CBC ####[place] [id number] [facility] Platelets (Bld) [#/Vol] 190 10*3/uL Normal 150-450 [facility] Comment on above: Performed By: #### B MP, CBC ####[address] RBC (Bld) [#/Vol] 4.26 10*6/uL Normal 3.60-5.00 [facility] Comment on above: Performed By: #### B MP, CBC ####[place] [id number] [facility] WBC (Bld) [#/Vol] 5.6 10*3/uL Normal 3.8-11.6 [facility] Comment on above: Performed By: #### B MP, CBC ####[place] [id number] [facility] Glucose Poct Glucometerson 0 06-15-2024 Glucose [Mass/Vol] 132 mg/dL Normal [facility] Comment on above: Result Comment: [facility] [place] Glucose Reference Range is dependent on time and content of last meal. Glucose of more than 200 mg/dL in a nonstressed, ambulatory subject supports the diagnosis of Diabetes Mellitus. PERFORMED BY: [facility] [address] [place] [id number] PATHOLOGIST PRODUCTION CHECKER HELDER CASTELLANOS M.D. Performed By: #### G DANE ####Point of Care testing, Glucose [Mass/Vol] 135 mg/dL Normal [facility] Comment on above: Result Comment: [facility] Glucose Reference Range is dependent on time and content of last meal. Glucose of more than 200 mg/dL in a nonstressed, ambulatory subject supports the diagnosis of Diabetes Mellitus. PERFORMED BY: [facility] [address] [place] [address] PATHOLOGIST PRODUCTION CHECKER HELDER CASTELLANOS M.D. Performed By: #### G LULS ####Point of Care testing, Glucose [Mass/Vol] 166 mg/dL Normal [facility] Comment on above: Result Comment: [facility] Glucose Reference Range is dependent on time and content of last meal. Glucose of more than 200 mg/dL in a nonstressed, ambulatory subject supports the diagnosis of Diabetes Mellitus. PERFORMED BY: [address] [place] [address] PATHOLOGIST PRODUCTION CHECKER HELDER CASTELLANOS M.D. Performed By: #### G LULS ####Point of Care testing, Glucose [Mass/Vol] 105 mg/dL Normal [facility] Comment on above: Result Comment: [facility] Glucose Reference Range is dependent on time and content of last meal. Glucose of more than 200 mg/dL in a nonstressed, ambulatory subject supports the diagnosis of Diabetes Mellitus. PERFORMED BY: [place] [address] [place] [address] PATHOLOGIST PRODUCTION CHECKER HELDER CASTELLANOS M.D. Performed By: #### G LULS #### Point of Care testing , Glucose mean value [Mass/vol ume] in Blood Estimated from glycated hemoglobinOrdered By: Libra Li on 06-15-2024 Average glucose Estimated from glycated hemoglobin (Bld) [Mass/Vol] 160 mg/dL [facility] Hemoglobin A1c percentageOrd ered By: Libra Li on 06-15-2024 HbA1c (Bld) [Mass fraction] 7.2 % High 4.3-5.6 [facility] Comment on above: Increased risk for d iabetes: 5.7 - 6.4diabetes: >6.4glycemic control for adults with diabetes: <7.0 Result Comment: Incr eased risk for diabetes: 5.7 - 6.4 diabetes: >6.4 glycemic control for adults with diabetes: <7.0 Performed By: #### P TT, MG, CBC, PT, CMP #### [address] Basic Metabolic Panelon 08 Anion gap [Moles/Vol] Not performed Normal 6.0-15.0 [facility] Comment on above: Performed By: #### P TT, MG, CBC, PT, CMP #### [address] Calcium [Mass/Vol] 9.2 mg/dL Normal 8.6-10.3 [facility] Comment on above: Performed By: #### P TT, MG, CBC, PT, CMP #### [address] Chloride [Moles/Vol] 108 mmol/L High 98-107 [facility] Comment on above: Performed By: #### P TT, MG, CBC, PT, CMP #### [address] CO2 [Moles/Vol] 24.0 mmol/L Normal 21.0-31.0 [facility] Comment on above: Performed By: #### P TT, MG, CBC, PT, CMP #### [address] Creatinine [Mass/Vol] 2.83 mg/dL High 0.60-1.20 [facility] Comment on above: Performed By: #### P TT, MG, CBC, PT, CMP #### [address] Creatinine Clr Calc Pharmacy 36.99 Normal [facility] Comment on above: Result Comment: PERF ORMED BY: [place] [address] PATHOLOGIST PRODUCTION CHECKER HELDER CASTELLANOS M.D. Performed By: #### P TT, MG, CBC, PT, CMP #### [address] GFR/1.73 sq M.predicted MDRD (S/P/Bld) [Vol rate/Area] 20.446 mL/min/{1.73_m2} Normal [facility] Comment on above: Performed By: #### P TT, MG, CBC, PT, CMP #### [address] Glucose [Mass/Vol] 110 mg/dL High 70-100 [facility] Comment on above: Result Comment: [place] Glucose Reference Range is dependent on time and content of last meal. Glucose of more than 200 mg/dL in a nonstressed, ambulatory subject supports the diagnosis of Diabetes Mellitus. ADA recommended reference range Performed By: #### P TT, MG, CBC, PT, CMP #### [address] Potassium Normal 3.5-5.1 [facility] Comment on above: Result Comment: Spec imen hemolyzed, redraw requested Results called at [phone] on 06/14/24 Performed By: #### P TT, MG, CBC, PT, CMP #### [address] Sodium [Moles/Vol] 137 mmol/L Normal 136-145 [facility] Comment on above: Performed By: #### P TT, MG, CBC, PT, CMP #### [address] Urea nitrogen [Mass/Vol] 37 mg/dL High 7-25 [facility] Comment on above: Performed By: #### P TT, MG, CBC, PT, CMP #### [address] Complete Blood Count Auto Di ffon 06-14-2024 Basophils (Bld) [#/Vol] 0.0 10*3/uL Normal 0.0-0.2 [facility] Comment on above: Result Comment: PERF ORMED BY: [place] [address] PATHOLOGIST PRODUCTION CHECKER HELDER CASTELLANOS M.D. Performed By: #### P TT, MG, CBC, PT, CMP #### [address] Basophils/100 WBC (Bld) 0.7 % Normal . [facility] Comment on above: Performed By: #### P TT, MG, CBC, PT, CMP #### [address] Eosinophils (Bld) [#/Vol] 0.3 10*3/uL Normal 0.0-0.45 [facility] Comment on above: Performed By: #### P TT, MG, CBC, PT, CMP #### [address] Eosinophils/100 WBC (Bld) 4.4 % Normal . [facility] Comment on above: Performed By: #### P TT, MG, CBC, PT, CMP #### [address] Erythrocyte distribution width (RBC) [Ratio] 15.5 % High 11.9-15.3 [facility] Comment on above: Performed By: #### P TT, MG, CBC, PT, CMP #### [address] Hematocrit (Bld) [Volume fraction] 37.1 % Normal 34.0-46.4 [facility] Comment on above: Performed By: #### P TT, MG, CBC, PT, CMP #### [address] Hemoglobin (Bld) [Mass/Vol] 12.4 g/dL Normal 11.8-15.4 [facility] Comment on above: Performed By: #### P TT, MG, CBC, PT, CMP #### [address] Lymphocytes (Bld) [#/Vol] 1.5 10*3/uL Normal 1.00-4.8 [facility] Comment on above: Performed By: #### P TT, MG, CBC, PT, CMP #### [place] [address] [place] Lymphocytes/100 WBC (Bld) 25.7 % Normal . [facility] Comment on above: Performed By: #### P TT, MG, CBC, PT, CMP #### [address] MCH (RBC) [Entitic mass] 26.8 pg Normal 24.7-34.3 [facility] Comment on above: Performed By: #### P TT, MG, CBC, PT, CMP #### [address] MCV (RBC) [Entitic vol] 80.0 fL Normal 80-100 [facility] Comment on above: Performed By: #### P TT, MG, CBC, PT, CMP #### [address] Mean Corpuscular HGB Conc 33.5 g/dL Normal 32.0-35.0 [facility] Comment on above: Performed By: #### P TT, MG, CBC, PT, CMP #### [address] Monocytes (Bld) [#/Vol] 0.4 10*3/uL Normal 0.0-0.8 [facility] Comment on above: Performed By: #### P TT, MG, CBC, PT, CMP #### [address] Monocytes/100 WBC (Bld) 6.9 % Normal . [facility] Comment on above: Performed By: #### P TT, MG, CBC, PT, CMP #### [address] Neutrophils (Bld) [#/Vol] 3.7 10*3/uL Normal 1.8-7.7 [facility] Comment on above: Performed By: #### P TT, MG, CBC, PT, CMP #### [address] Neutrophils/100 WBC (Bld) 62.3 % Normal . [facility] Comment on above: Performed By: #### P TT, MG, CBC, PT, CMP #### [address] NRBC% 0.4 /100{WBC} Normal 0-0.5 [facility] Comment on above: Performed By: #### P TT, MG, CBC, PT, CMP #### [address] Platelet mean volume (Bld) [Entitic vol] 7.4 fL Normal 6.3-10.7 [facility] Comment on above: Performed By: #### P TT, MG, CBC, PT, CMP #### [address] Platelets (Bld) [#/Vol] 197 10*3/uL Normal 150-450 [facility] Comment on above: Performed By: #### P TT, MG, CBC, PT, CMP #### [address] RBC (Bld) [#/Vol] 4.63 10*6/uL Normal 3.60-5.00 [facility] Comment on above: Performed By: #### P TT, MG, CBC, PT, CMP #### [address] WBC (Bld) [#/Vol] 6.0 10*3/uL Normal 3.8-11.6 [facility] Comment on above: Performed By: #### P TT, MG, CBC, PT, CMP #### [address] Glucose Poct Glucometerson 0 - Glucose [Mass/Vol] 127 mg/dL Normal [facility] Comment on above: Result Comment: [place] Glucose Reference Range is dependent on time and content of last meal. Glucose of more than 200 mg/dL in a nonstressed, ambulatory subject supports the diagnosis of Diabetes Mellitus. PERFORMED BY: [place] [address] PATHOLOGIST PRODUCTION CHECKER HELDER CASTELLANOS M.D. Performed By: #### P TT, MG, CBC, PT, CMP #### [address] Glucose [Mass/Vol] 138 mg/dL Normal [facility] Comment on above: Result Comment: [place] om Glucose Reference Range is dependent on time and content of last meal. Glucose of more than 200 mg/dL in a nonstressed, ambulatory subject supports the diagnosis of Diabetes Mellitus. PERFORMED BY: [place] [address] PATHOLOGIST PRODUCTION CHECKER HELDER CASTELLANOS M.D. Performed By: #### P TT, MG, CBC, PT, CMP #### [address] Glucose [Mass/Vol] 137 mg/dL Normal [facility] Comment on above: Result Comment: [place] om Glucose Reference Range is dependent on time and content of last meal. Glucose of more than 200 mg/dL in a nonstressed, ambulatory subject supports the diagnosis of Diabetes Mellitus. PERFORMED BY: [place] [address] PATHOLOGIST PRODUCTION CHECKER HELDER CASTELLANOS M.D. Performed By: #### P TT, MG, CBC, PT, CMP #### [address] Glucose [Mass/Vol] 125 mg/dL Normal [facility] Comment on above: Result Comment: [place] Glucose Reference Range is dependent on time and content of last meal. Glucose of more than 200 mg/dL in a nonstressed, ambulatory subject supports the diagnosis of Diabetes Mellitus. PERFORMED BY: [place] [address] PATHOLOGIST PRODUCTION CHECKER HELDER CASTELLANOS M.D. Performed By: #### G LULS #### Point of Care testing , Redraw Potassiumon 4 Potassium [Moles/Vol] 4.4 mmol/L Normal 3.5-5.1 [facility] Comment on above: Result Comment: Hemo lysis is present at a level that could interfere with the result. Contact lab if redraw is required PERFORMED BY: [place] [address] PATHOLOGIST PRODUCTION CHECKER HELDER CASTELLANOS M.D. Performed By: #### P TT, MG, CBC, PT, CMP #### [address] Activated partial thrombopla stin time (aPTT) in platelet poor plasma by coagulation aOrdered By: Jayro Bucio on 06-13-2024 aPTT Coag (PPP) [Time] 30.8 s 25.1-36.5 [facility] Comment on above: A hematocrit value g reater than 55% may lead to inaccurate results in coagulation testing. Patients having hematocrit values >55% require a special collection tube for coagulation studies. Please contact the laboratory at [phone] for redraw instructions. Alanine aminotransferase [En zymatic activity/volume] in Serum or PlasmaOrdered By: Jayro Bucio on 06-13-2024 ALT [Catalytic activity/Vol] 20 U/L Normal 7-52 [facility] Comment on above: Performed By: #### P TT, MG, CBC, PT, CMP #### [facility] [address] [place] [address] [place] Albumin [Mass/volume] in Ser um or Plasma by Bromocresol green (BCG) dye binding methoOrdered By: Jayro Bucio on 06-13-2024 Albumin BCG dye [Mass/Vol] 3.5 g/dL 3.5-5.7 [facility] Alkaline phosphatase [Enzyma tic activity/volume] in Serum or PlasmaOrdered By: Jayro Bucio on 06-13-2024 ALP [Catalytic activity/Vol] 50 U/L Normal 34-104 [facility] Comment on above: Performed By: #### P TT, MG, CBC, PT, CMP #### [facility] [address] [place] [address] [place] Aspartate aminotransferase [ Enzymatic activity/volume] in Serum or PlasmaOrdered By: Jayro Bucio on 06-13-2024 AST [Catalytic activity/Vol] 18 U/L Normal 13-39 [facility] Comment on above: Performed By: #### P TT, MG, CBC, PT, CMP #### [address] Bilirubin.total [Mass/volume ] in Serum or PlasmaOrdered By: Jayro Bucio on 06-13-2024 Bilirubin [Mass/Vol] 0.4 mg/dL Normal 0.3-1.0 [facility] Comment on above: Performed By: #### P TT, MG, CBC, PT, CMP #### [address] Complete Blood Count Auto Di ffon 06-13-2024 Basophils (Bld) [#/Vol] 0.0 10*3/uL Normal 0.0-0.2 [facility] Comment on above: Result Comment: PERF ORMED BY: [place] [address] PATHOLOGIST PRODUCTION CHECKER HELDER CASTELLANOS M.D. Performed By: #### P TT, MG, CBC, PT, CMP #### [address] Basophils/100 WBC (Bld) 0.5 % Normal . [facility] Comment on above: Performed By: #### P TT, MG, CBC, PT, CMP #### [address] Eosinophils (Bld) [#/Vol] 0.2 10*3/uL Normal 0.0-0.45 [facility] Comment on above: Performed By: #### P TT, MG, CBC, PT, CMP #### [address] Eosinophils/100 WBC (Bld) 3.9 % Normal . [facility] Comment on above: Performed By: #### P TT, MG, CBC, PT, CMP #### [address] Erythrocyte distribution width (RBC) [Ratio] 15.2 % Normal 11.9-15.3 [facility] Comment on above: Performed By: #### P TT, MG, CBC, PT, CMP #### [address] Hematocrit (Bld) [Volume fraction] 35.0 % Normal 34.0-46.4 [facility] Comment on above: Performed By: #### P TT, MG, CBC, PT, CMP #### [address] Hemoglobin (Bld) [Mass/Vol] 11.6 g/dL Low 11.8-15.4 [facility] Comment on above: Performed By: #### P TT, MG, CBC, PT, CMP #### [address] Lymphocytes (Bld) [#/Vol] 1.7 10*3/uL Normal 1.00-4.8 [facility] Comment on above: Performed By: #### P TT, MG, CBC, PT, CMP #### [address] Lymphocytes/100 WBC (Bld) 32.9 % Normal . [facility] Comment on above: Performed By: #### P TT, MG, CBC, PT, CMP #### [address] MCH (RBC) [Entitic mass] 26.6 pg Normal 24.7-34.3 [facility] Comment on above: Performed By: #### P TT, MG, CBC, PT, CMP #### [address] MCV (RBC) [Entitic vol] 79.9 fL Low 80-100 [facility] Comment on above: Performed By: #### P TT, MG, CBC, PT, CMP #### [address] Mean Corpuscular HGB Conc 33.3 g/dL Normal 32.0-35.0 [facility] Comment on above: Performed By: #### P TT, MG, CBC, PT, CMP #### [address] Monocytes (Bld) [#/Vol] 0.3 10*3/uL Normal 0.0-0.8 [facility] Comment on above: Performed By: #### P TT, MG, CBC, PT, CMP #### [address] Monocytes/100 WBC (Bld) 6.4 % Normal . [facility] Comment on above: Performed By: #### P TT, MG, CBC, PT, CMP #### [address] Neutrophils (Bld) [#/Vol] 2.8 10*3/uL Normal 1.8-7.7 [facility] Comment on above: Performed By: #### P TT, MG, CBC, PT, CMP #### [address] Neutrophils/100 WBC (Bld) 56.3 % Normal . [facility] Comment on above: Performed By: #### P TT, MG, CBC, PT, CMP #### [address] NRBC% 0.0 /100{WBC} Normal 0-0.5 [facility] Comment on above: Performed By: #### P TT, MG, CBC, PT, CMP #### [address] Platelet mean volume (Bld) [Entitic vol] 7.3 fL Normal 6.3-10.7 [facility] Comment on above: Performed By: #### P TT, MG, CBC, PT, CMP #### [address] Platelets (Bld) [#/Vol] 202 10*3/uL Normal 150-450 [facility] Comment on above: Performed By: #### P TT, MG, CBC, PT, CMP #### [address] RBC (Bld) [#/Vol] 4.37 10*6/uL Normal 3.60-5.00 [facility] Comment on above: Performed By: #### P TT, MG, CBC, PT, CMP #### [address] WBC (Bld) [#/Vol] 5.1 10*3/uL Normal 3.8-11.6 [facility] Comment on above: Performed By: #### P TT, MG, CBC, PT, CMP #### [address] Comprehensive Metabolic Pane bobby 06-13-2024 Albumin [Mass/Vol] 3.5 g/dL Normal 3.5-5.7 [facility] Comment on above: Performed By: #### P TT, MG, CBC, PT, CMP #### [address] Anion gap [Moles/Vol] 10.3 mmol/L Normal 6.0-15.0 [facility] Comment on above: Performed By: #### P TT, MG, CBC, PT, CMP #### [address] Calcium [Mass/Vol] 8.4 mg/dL Low 8.6-10.3 [facility] Comment on above: Performed By: #### P TT, MG, CBC, PT, CMP #### [address] Chloride [Moles/Vol] 108 mmol/L High 98-107 [facility] Comment on above: Performed By: #### P TT, MG, CBC, PT, CMP #### [address] CO2 [Moles/Vol] 23.0 mmol/L Normal 21.0-31.0 [facility] Comment on above: Performed By: #### P TT, MG, CBC, PT, CMP #### [address] Creatinine [Mass/Vol] 2.54 mg/dL High 0.60-1.20 [facility] Comment on above: Performed By: #### P TT, MG, CBC, PT, CMP #### [address] Creatinine Clr Calc Pharmacy 41.07 Normal [facility] Comment on above: Performed By: #### P TT, MG, CBC, PT, CMP #### [place] [address] [place] GFR/1.73 sq M.predicted MDRD (S/P/Bld) [Vol rate/Area] 23.278 mL/min/{1.73_m2} Normal [facility] Comment on above: Performed By: #### P TT, MG, CBC, PT, CMP #### [address] Glucose [Mass/Vol] 116 mg/dL High 70-100 [facility] Comment on above: Result Comment: [place] Glucose Reference Range is dependent on time and content of last meal. Glucose of more than 200 mg/dL in a nonstressed, ambulatory subject supports the diagnosis of Diabetes Mellitus. ADA recommended reference range Performed By: #### P TT, MG, CBC, PT, CMP #### [address] Potassium [Moles/Vol] 4.3 mmol/L Normal 3.5-5.1 [facility] Comment on above: Performed By: #### P TT, MG, CBC, PT, CMP #### [address] Sodium [Moles/Vol] 137 mmol/L Normal 136-145 [facility] Comment on above: Performed By: #### P TT, MG, CBC, PT, CMP #### [address] Urea nitrogen [Mass/Vol] 36 mg/dL High 7-25 [facility] Comment on above: Performed By: #### P TT, MG, CBC, PT, CMP #### [address] Glucose Poct Glucometerson 0 06-13-2024 Glucose [Mass/Vol] 142 mg/dL Normal [facility] Comment on above: Result Comment: [place] Glucose Reference Range is dependent on time and content of last meal. Glucose of more than 200 mg/dL in a nonstressed, ambulatory subject supports the diagnosis of Diabetes Mellitus. PERFORMED BY: [place] [address] PATHOLOGIST PRODUCTION CHECKER HELDER CASTELLANOS M.D. Performed By: #### P TT, MG, CBC, PT, CMP #### [address] Commemt1 Glu2: Cleaned Meter Normal [facility] Comment on above: Result Comment: PERF ORMED BY: [place] [address] PATHOLOGIST PRODUCTION CHECKER HELDER CASTELLANOS M.D. Performed By: #### P TT, MG, CBC, PT, CMP #### [address] Glucose [Mass/Vol] 156 mg/dL Normal [facility] Comment on above: Result Comment: [facility] [place] Glucose Reference Range is dependent on time and content of last meal. Glucose of more than 200 mg/dL in a nonstressed, ambulatory subject supports the diagnosis of Diabetes Mellitus. Performed By: #### P TT, MG, CBC, PT, CMP #### [address] Commemt1 Glu2: Cleaned Meter Normal [facility] Comment on above: Result Comment: PERF ORMED BY: [place] [address] PATHOLOGIST PRODUCTION CHECKER HELDER CASTELLANOS M.D. Performed By: #### P TT, MG, CBC, PT, CMP #### [address] Glucose [Mass/Vol] 158 mg/dL Normal [facility] Comment on above: Result Comment: [place] Glucose Reference Range is dependent on time and content of last meal. Glucose of more than 200 mg/dL in a nonstressed, ambulatory subject supports the diagnosis of Diabetes Mellitus. Performed By: #### P TT, MG, CBC, PT, CMP #### [facility] [address] Glucose [Mass/Vol] 134 mg/dL Normal [facility] Comment on above: Result Comment: [facility] [place] Glucose Reference Range is dependent on time and content of last meal. Glucose of more than 200 mg/dL in a nonstressed, ambulatory subject supports the diagnosis of Diabetes Mellitus. PERFORMED BY: [place] [address] PATHOLOGIST PRODUCTION CHECKER HELDER CASTELLANOS M.D. Performed By: #### P TT, MG, CBC, PT, CMP #### [address] INR in Platelet poor plasma by Coagulation assayOrdered By: Jayro Bucio on 06-13-2024 INR Coag (PPP) [Relative time] 1.0 {INR} Normal [facility] Comment on above: INR Therapeutic Rang e A) Pre- and Peroperative OAT started two weeks before surgery. NOT HIP SURGERY: 1.5 - 2.5 HIP SURGERY: 2 - 3B) Primary and secondary prevention of venous THROMBOSIS: 2 - 3C) Active venous thrombosis, pulmonary embolismand prevention of recurrent venous thrombosis: 2 - 3D) Prevention of arterial thromboembolismincluding patients with mechanical heart valves: 3 - 4.5 Result Comment: INR Therapeutic Range A) Pre- and Peroperative OAT started two weeks before surgery. NOT HIP SURGERY: 1.5 - 2.5 HIP SURGERY: 2 - 3 B) Primary and secondary prevention of venous THROMBOSIS: 2 - 3 C) Active venous thrombosis, pulmonary embolism and prevention of recurrent venous thrombosis: 2 - 3 D) Prevention of arterial thromboembolism including patients with mechanical heart valves: 3 - 4.5 Performed By: #### P TT, MG, CBC, PT, CMP #### [facility] [address] Lactate [Moles/volume] in Se rum or PlasmaOrdered By: Jayro Bucio on 06-13-2024 Lactate [Moles/Vol] 0.5 mmol/L Normal 0.5-2.2 [facility] Comment on above: Result Comment: PERF ORMED BY: [place] [address] PATHOLOGIST PRODUCTION CHECKER HELDER CASTELLANOS M.D. Performed By: #### P TT, MG, CBC, PT, CMP #### [facility] [address] [place] [address] Magnesium [Mass/volume] in S prabhjot or PlasmaOrdered By: Jayro Bucio on 06-13-2024 Magnesium [Mass/Vol] 1.9 mg/dL Normal 1.9-2.7 [facility] Comment on above: Result Comment: PERF ORMED BY: [place] [address] PATHOLOGIST PRODUCTION CHECKER HELDER CASTELLANOS M.D. Performed By: #### P TT, MG, CBC, PT, CMP #### [facility] [address] [place] [address] No Panel InformationOrdered By: Promise Nova on 06-13-2024 Bedside Glucose Comment Glu2: cleaned meter [facility] Partial Thromboplastin Timeo n 06-13-2024 aPTT Coag (Bld) [Time] 30.8 s Normal 25.1-36.5 [facility] Comment on above: Result Comment: A he matocrit value greater than 55% may lead to inaccurate results in coagulation testing. Patients having hematocrit values >55% require a special collection tube for coagulation studies. Please contact the laboratory at [phone] for redraw instructions. PERFORMED BY: [place] [address] PATHOLOGIST PRODUCTION CHECKER HELDER CASTELLANOS M.D. Performed By: #### P TT, MG, CBC, PT, CMP #### [facility] [address] [place] [address] Protein [Mass/volume] in Ser um or PlasmaOrdered By: Jayro Bucio on 06-13-2024 Protein [Mass/Vol] 6.1 g/dL Low 6.4-8.9 [facility] Comment on above: Performed By: #### P TT, MG, CBC, PT, CMP #### [address] Prothrombin time (PT)Ordered By: Jayro Bucio on 06-13-2024 PT Coag (PPP) [Time] 11.3 s Normal 9.0-12.9 [facility] Comment on above: A hematocrit value g reater than 55% may lead to inaccurate results in coagulation testing. Patients having hematocrit values >55% require a special collection tube for coagulation studies. Please contact the laboratory at [phone] for redraw instructions. Result Comment: A he matocrit value greater than 55% may lead to inaccurate results in coagulation testing. Patients having hematocrit values >55% require a special collection tube for coagulation studies. Please contact the laboratory at [phone] for redraw instructions. Performed By: #### P TT, MG, CBC, PT, CMP #### [address] Serum globulin measurement b y calculation (mass/volume)Ordered By: Jayro Bucio on 06-13-2024 Globulin (S) [Mass/Vol] 2.6 g/dL Normal [facility] Comment on above: Performed By: #### P TT, MG, CBC, PT, CMP #### [address] Serum or plasma albumin/glob ulin mass ratioOrdered By: Jayro Bucio on 06-13-2024 Albumin/Globulin [Mass ratio] 1.3 {ratio} [facility] Comment on above: Performed By: #### P TT, MG, CBC, PT, CMP #### [address] Alanine aminotransferase [En zymatic activity/volume] in Serum or PlasmaOrdered By: Marcelle Simmons on 06-12-2024 ALT [Catalytic activity/Vol] 25 U/L Normal 7-52 [facility] Comment on above: Performed By: #### G LULS #### Point of Care testing , Albumin [Mass/volume] in Ser um or Plasma by Bromocresol green (BCG) dye binding methoOrdered By: Marcelle Simmons on 06-12-2024 Albumin BCG dye [Mass/Vol] 4.1 g/dL 3.5-5.7 [facility] Alkaline phosphatase [Enzyma tic activity/volume] in Serum or PlasmaOrdered By: Marcelle Simmons on 06-12-2024 ALP [Catalytic activity/Vol] 58 U/L Normal 34-104 [facility] Comment on above: Performed By: #### G LULS #### Point of Care testing , Aspartate aminotransferase [ Enzymatic activity/volume] in Serum or PlasmaOrdered By: Marcelle Simmons on 06-12-2024 AST [Catalytic activity/Vol] 19 U/L Normal 13-39 [facility] Comment on above: Performed By: #### G LULS #### Point of Care testing , Automated basophil %Ordered By: Marcelle Simmons on 06-12-2024 Basophils/100 WBC (Bld) 0.6 % Normal . [facility] Comment on above: Performed By: #### G LULS #### Point of Care testing , Automated basophil countOrde red By: Marcelle Simmons on 06-12-2024 Basophils (Bld) [#/Vol] 0.0 10*3/uL Normal 0.0-0.2 [facility] Comment on above: Result Comment: PERF ORMED BY: [facility] [address] [place] [address] PATHOLOGIST PRODUCTION CHECKER HELDER CASTELLANOS M.D. Performed By: #### G LULS #### Point of Care testing , Automated blood monocyte cou ntOrdered By: Marcelle Simmons on 06-12-2024 Monocytes (Bld) [#/Vol] 0.4 10*3/uL Normal 0.0-0.8 [facility] Comment on above: Performed By: #### G LULS #### Point of Care testing , Automated eosinophil %Ordere d By: Marcelle Simmons on 06-12-2024 Eosinophils/100 WBC (Bld) 3.2 % Normal . [facility] Comment on above: Performed By: #### G LULS #### Point of Care testing , Automated eosinophil countOr dered By: Marcelle Simmons on 06-12-2024 Eosinophils (Bld) [#/Vol] 0.2 10*3/uL Normal 0.0-0.45 [facility] Comment on above: Performed By: #### G LULS #### Point of Care testing , Automated monocyte %Ordered By: Marcelle Simmons on 06-12-2024 Monocytes/100 WBC (Bld) 6.4 % Normal . [facility] Comment on above: Performed By: #### G LULS #### Point of Care testing , Automated neutrophil %Ordere d By: Marcelle Simmons on 06-12-2024 Neutrophils/100 WBC (Bld) 65.5 % Normal . [facility] Comment on above: Performed By: #### G LULS #### Point of Care testing , Bacteria [Presence] in Urine by AutomatedOrdered By: Marcelle Simmons on 06-12-2024 Bacteria Auto Ql (U) 1+ [HPF] High None Seen [facility] Basic Metabolic Panelon 05-29 Creatinine Clr Calc Pharmacy 36.30 Normal [facility] Comment on above: Performed By: #### G LULS #### Point of Care testing , GFR/1.73 sq M.predicted MDRD (S/P/Bld) [Vol rate/Area] 20.708 mL/min/{1.73_m2} Normal [facility] Comment on above: Performed By: #### G LULS #### Point of Care testing , Bilirubin Test strip Ql (U)O rdered By: Marcelle Simmons on 06-12-2024 Bilirubin Ql (U) Negative Negative [facility] Bilirubin.direct [Mass/volum e] in Serum or PlasmaOrdered By: Marcelle Simmons on 06-12-2024 Bilirubin.direct [Mass/Vol] 0.10 mg/dL 0.03-0.18 [facility] Bilirubin.total [Mass/volume ] in Serum or PlasmaOrdered By: Marcelle Simmons on 06-12-2024 Bilirubin [Mass/Vol] 0.5 mg/dL Normal 0.3-1.0 [facility] Comment on above: Performed By: #### G DANE #### Point of Care testing , CT abdomen pelvis w conon CT abdomen pelvis w [facility] [place] [address] [place] [address] CT Scan Report Signed Patient: Guerrero Ramos MR#: [id number] : 1980 Acct:[id number] Age/Sex: 43 / F ADM Date: 06/12/24 Loc: ER Room: Type: [facility] ER Attending Dr: Copies to: Marcelle Simmons MD Ordering Provider: Marcelle Simmons MD Date of Service: 06/12/24 CT/CT abdomen pelvis w con: abd umbilical hernia, evaluate for strangulation CT abdomen pelvis w con 06/12/2024 6:22 PM SIGNS AND SYMPTOMS: Back pain, generalized abdominal and pelvic pain with nausea TECHNIQUE: Multidetector ct axial images of the abdomen and pelvis were obtained with IV contrast. Multiplanar reformats were performed and reviewed to further define anatomy and possible pathology. CT was performed with one or more of the following dose reduction techniques: Automated exposure control, adjustment of the mA and/or kV according to patient size, or use of iterative reconstruction technique. COMPARISON: 05/11/2024 FINDINGS: Lower Chest: Within normal limits. ABDOMEN: Liver: Within normal limits. Bile Ducts: Normal caliber. Gallbladder: Previously removed Pancreas: Within normal limits. Spleen: Within normal limits. Adrenals: There is an 11 mm nodule within the left adrenal gland which is unchanged. Kidneys: There is renal cortical atrophy bilaterally. Pelvis: Reproductive Organs: No pelvic masses. Ureters: Within normal limits. Bladder: Within normal limits. Bowel: Normal caliber. There is a normal appendix in the right lower quadrant. Mesenteric Lymph Nodes: No enlarged mesenteric lymph nodes. Peritoneum: No ascites or free air, no fluid collection. Vessels: Atherosclerotic changes are noted in the abdominal aorta and its branches. Retroperitoneum: Within normal limits. Abdominal Wall: There is a ventral wall hernia to the left of midline containing intraperitoneal fat and nonobstructed loop of bowel. The ostium measures 6.2 x 6.6 cm in greatest dimension. The hernia sac measures 17.0 x 5.7 x 14.0 cm in greatest dimension. Above this along the ventral wall to the left of midline is a second hernia containing a nonobstructed loop of colon. The ostium measures 6.7 x 5.8 cm in greatest dimension. The hernia sac measures 10.0 x 13.5 x 6.2 cm in greatest dimension. Bones: Degenerative changes are noted in the thoracolumbar spine and sacroiliac joints. CT/CT abdomen pelvis w con IMPRESSION: No bowel obstruction or obstructive uropathy. Similar ventral wall hernias are noted containing nonobstructed loops of bowel and intraperitoneal fat. Impression dictated by: Chaz Fitzgerald M.D.06/12/2024 9:00 PM Dictation Location: [place] [address] Transcribed By: [facility] 06/12/242099 Dictated By: Chaz Fitzgerald II, MD 06/12/242050 Signed By: 06/12/242099 Normal [facility] Calcium [Mass/volume] in Ser um or PlasmaOrdered By: Marcelle Simmons on 06-12-2024 Calcium [Mass/Vol] 9.6 mg/dL Normal 8.6-10.3 [facility] Comment on above: Performed By: #### G LULS #### Point of Care testing , Carbon dioxide, total [Moles /volume] in Serum or PlasmaOrdered By: Marcelle Simmons on 06-12-2024 CO2 [Moles/Vol] 27.2 mmol/L Normal 21.0-31.0 [facility] Comment on above: Performed By: #### G LULS #### Point of Care testing , Chloride [Moles/volume] in S prabhjot or PlasmaOrdered By: Marcelle Simmons on 06-12-2024 Chloride [Moles/Vol] 103 mmol/L Normal 98-107 [facility] Comment on above: Performed By: #### G LULS #### Point of Care testing , Color of Urine by AutoOrdere d By: Marcelle Simmons on 06-12-2024 Color (U) Light-yellow Normal Yellow [facility] Comment on above: Order Comment: Name Collection Type:: Clean-Voided Midstream Performed By: #### P TT, MG, CBC, PT, CMP #### [facility] [address] Complete Blood Count Auto Di ffon 06-12-2024 Mean Corpuscular HGB Conc 33.7 g/dL Normal 32.0-35.0 [facility] Comment on above: Performed By: #### G LULS #### Point of Care testing , Monocytes/100 WBC (Bld) 18.31 % Normal 0.00-20.00 [facility] Comment on above: Performed By: #### G LULS #### Point of Care testing , NRBC% 0.2 /100{WBC} Normal 0-0.5 [facility] Comment on above: Performed By: #### G HAROLDOLS #### Point of Care testing , Creatinine [Mass/volume] in Serum or PlasmaOrdered By: Marcelle Simmons on 06-12-2024 Creatinine [Mass/Vol] 2.80 mg/dL High 0.60-1.20 [facility] Comment on above: Performed By: #### G LULS #### Point of Care testing , Dipstick and Microscopicon 0 06-12-2024 Bacteria,Urine 1+ High None Seen [facility] Comment on above: Order Comment: Name Collection Type:: Clean-Voided Midstream Performed By: #### P TT, MG, CBC, PT, CMP #### [facility] [address] Bilirubin,Urine Negative Normal Negative [facility] Comment on above: Order Comment: Name Collection Type:: Clean-Voided Midstream Performed By: #### P TT, MG, CBC, PT, CMP #### [facility] [address] Glucose Ql (U) >=1000 High Normal [facility] Comment on above: Order Comment: Name Collection Type:: Clean-Voided Midstream Performed By: #### P TT, MG, CBC, PT, CMP #### [facility] [address] [place] [address] [place] Hyaline Casts,Urine None Normal 0-8 [facility] Comment on above: Order Comment: Name Collection Type:: Clean-Voided Midstream Performed By: #### P TT, MG, CBC, PT, CMP #### [address] Mucus,Urine Rare Normal [facility] Comment on above: Order Comment: Name Collection Type:: Clean-Voided Midstream Performed By: #### P TT, MG, CBC, PT, CMP #### [address] Nitrite,Urine Negative Normal Negative [facility] Comment on above: Order Comment: Name Collection Type:: Clean-Voided Midstream Performed By: #### P TT, MG, CBC, PT, CMP #### [address] Occult Blood,Urine Negative Normal Negative [facility] Comment on above: Order Comment: Name Collection Type:: Clean-Voided Midstream Performed By: #### P TT, MG, CBC, PT, CMP #### [address] RBC,Urine 1-2 Normal 0-4 [facility] Comment on above: Order Comment: Name Collection Type:: Clean-Voided Midstream Performed By: #### P TT, MG, CBC, PT, CMP #### [address] Specificy [place],Urine 1.018 Normal 1.001-1.03 0 [facility] Comment on above: Order Comment: Name Collection Type:: Clean-Voided Midstream Performed By: #### P TT, MG, CBC, PT, CMP #### [address] Squamous Epithelial Cell,Urine 5-9 High 0-2 [facility] Comment on above: Order Comment: Name Collection Type:: Clean-Voided Midstream Performed By: #### P TT, MG, CBC, PT, CMP #### [address] Urobilinogen,Urine Normal Normal Normal [facility] Comment on above: Order Comment: Name Collection Type:: Clean-Voided Midstream Performed By: #### P TT, MG, CBC, PT, CMP #### [facility] [address] WBC CLUMP, Urine Few High None Seen [facility] Comment on above: Order Comment: Name Collection Type:: Clean-Voided Midstream Performed By: #### P TT, MG, CBC, PT, CMP #### [facility] [address] WBC,Urine 20-49 High 0-4 [facility] Comment on above: Order Comment: Name Collection Type:: Clean-Voided Midstream Performed By: #### P TT, MG, CBC, PT, CMP #### [facility] [address] Epithelial cells.squamous [# /area] in Urine sediment by Automated countOrdered By: Marcelle Simmons on 06-12-2024 Epithelial cells.squamous Auto (Urine sed) [#/Area] 5-9 [HPF] High 0-2 [facility] Erythrocyte distribution wid th [Ratio] by Automated countOrdered By: Marcelle Simmons on 06-12-2024 Erythrocyte distribution width (RBC) [Ratio] 15.6 % High 11.9-15.3 [facility] Comment on above: Performed By: #### G LULS #### Point of Care testing , Erythrocytes [#/area] in Uri ne sediment by Automated countOrdered By: Marcelle Simmons on 06-12-2024 RBC Auto (Urine sed) [#/Area] 1-2 [HPF] 0-4 [facility] Erythrocytes [#/volume] in B lood by Automated countOrdered By: Marcelle Simmons on 06-12-2024 RBC (Bld) [#/Vol] 4.88 10*6/uL Normal 3.60-5.00 [facility] Comment on above: Performed By: #### G LULS #### Point of Care testing , Glucose [Mass/volume] in Ser um or PlasmaOrdered By: Marcelle Simmons on 06-12-2024 Glucose [Mass/Vol] 126 mg/dL High 70-100 [facility] Comment on above: ADA recommended refe rence rangeRandom Glucose Reference Range is dependent on time and content of last meal. Glucose of more than 200 mg/dL in a nonstressed, ambulatory subject supports the diagnosis of Diabetes Mellitus. Result Comment: [place] Glucose Reference Range is dependent on time and content of last meal. Glucose of more than 200 mg/dL in a nonstressed, ambulatory subject supports the diagnosis of Diabetes Mellitus. ADA recommended reference range Performed By: #### G LULS #### Point of Care testing , Glucose [Mass/volume] in Uri ne by Test stripOrdered By: Marcelle Simmons on 06-12-2024 Glucose Test strip (U) [Mass/Vol] >=1000 mg/dL High Normal [facility] HCG ( test) IA.rapi d Ql (U)Ordered By: Marcelle Simmons on 06-12-2024 HCG ( test) Ql (U) Negative [facility] HCG,Urineon 06-12-2024 Beta HCG ( test) Ql (U) Negative Normal [facility] Comment on above: Order Comment: Name Collection Type:: Clean-Voided Midstream Result Comment: PERF ORMED BY: [place] [address] PATHOLOGIST PRODUCTION CHECKER HELDER CASTELLANOS M.D. Performed By: #### P TT, MG, CBC, PT, CMP #### [facility] [address] [place] [address] Hematocrit [Volume Fraction] of Blood by Automated countOrdered By: Marcelle Simmons on 06-12-2024 Hematocrit (Bld) [Volume fraction] 38.5 % Normal 34.0-46.4 [facility] Comment on above: Performed By: #### G LULS #### Point of Care testing , Hemoglobin Test strip Ql (U) Ordered By: Marcelle Simmons on 06-12-2024 Hemoglobin Ql (U) Negative Negative [facility] Hemoglobin [Mass/volume] in BloodOrdered By: Marcelle Simmons on 06-12-2024 Hemoglobin (Bld) [Mass/Vol] 13.0 g/dL Normal 11.8-15.4 [facility] Comment on above: Performed By: #### G LULS #### Point of Care testing , Hepatic Panelon 06-12-2024 Albumin [Mass/Vol] 4.1 g/dL Normal 3.5-5.7 [facility] Comment on above: Performed By: #### G LULS #### Point of Care testing , Bilirubin,Indirect 0.4 mg/dL Normal [facility] Comment on above: Performed By: #### G LULS #### Point of Care testing , Bilirubin.indirect [Mass/Vol] 0.10 mg/dL Normal 0.03-0.18 [facility] Comment on above: Performed By: #### G LULS #### Point of Care testing , Hyaline casts [#/area] in Ur ine sediment by Automated countOrdered By: Marcelle Simmons on 06-12-2024 Hyaline casts Auto (Urine sed) [#/Area] None [LPF] 0-8 [facility] Ketones [Presence] in Urine by Test stripOrdered By: Marcelle Simmons on 06-12-2024 Ketones Ql (U) Negative Normal Negative [facility] Comment on above: Order Comment: Name Collection Type:: Clean-Voided Midstream Performed By: #### P TT, MG, CBC, PT, CMP #### [facility] [address] Leukocyte clumps [Presence] in Urine by AutomatedOrdered By: Marcelle Simmons on 06-12-2024 Leukocyte clumps Auto Ql (U) Few [LPF] High None Seen [facility] Leukocyte esterase [Presence ] in Urine by Test stripOrdered By: Marcelle Simmons on 06-12-2024 Leukocyte esterase Test strip Ql (U) 3+ High Negative [facility] Comment on above: Order Comment: Name Collection Type:: Clean-Voided Midstream Performed By: #### P TT, MG, CBC, PT, CMP #### [facility] [address] [place] [address] [place] Leukocytes [#/area] in Urine sediment by Automated countOrdered By: Marcelle Simmons on 06-12-2024 WBC Auto (Urine sed) [#/Area] 20-49 [HPF] High 0-4 [facility] Leukocytes [#/volume] correc marcos for nucleated erythrocytes in Blood by Automated counOrdered By: Marcelle Simmons on 06-12-2024 WBC corrected for nucl RBC Auto (Bld) [#/Vol] 6.4 10*3/uL 3.8-11.6 [facility] Leukocytes [#/volume] in Blo od by Automated countOrdered By: Marcelle Simmons on 06-12-2024 WBC (Bld) [#/Vol] 6.4 10*3/uL Normal 3.8-11.6 [facility] Comment on above: Performed By: #### G LULS #### Point of Care testing , Lipase [Enzymatic activity/v olume] in Serum or PlasmaOrdered By: Marcelle Simmons on 06-12-2024 Lipase [Catalytic activity/Vol] 28.0 U/L Normal 11.0-82.0 [facility] Comment on above: Result Comment: PERF ORMED BY: [facility] [address] [place] [address] PATHOLOGIST PRODUCTION CHECKER HELDER CASTELLANOS M.D. Performed By: #### G LULS #### Point of Care testing , Lymphocytes [#/volume] in Bl ood by Automated countOrdered By: Marcelle Simmons on 06-12-2024 Lymphocytes (Bld) [#/Vol] 1.5 10*3/uL Normal 1.00-4.8 [facility] Comment on above: Performed By: #### G LULS #### Point of Care testing , Lymphocytes/100 leukocytes i n Blood by Automated countOrdered By: Marcelle Simmons on 06-12-2024 Lymphocytes/100 WBC (Bld) 24.3 % Normal . [facility] Comment on above: Performed By: #### G LULS #### Point of Care testing , MCH [Entitic mass] by Automa marcos countOrdered By: Marcelle Simmons on 06-12-2024 MCH (RBC) [Entitic mass] 26.5 pg Normal 24.7-34.3 [facility] Comment on above: Performed By: #### G LULS #### Point of Care testing , MCHC Auto (RBC) [Mass/Vol]Or dered By: Marcelle Simmons on 06-12-2024 MCHC (RBC) [Mass/Vol] 33.7 g/dL 32.0-35.0 [facility] MCV [Entitic volume] by Auto mated countOrdered By: Marcelle Simmons on 06-12-2024 MCV (RBC) [Entitic vol] 78.8 fL Low 80-100 [facility] Comment on above: Performed By: #### G LULS #### Point of Care testing , Monocyte distribution width [Entitic volume] in Blood by AutomatedOrdered By: Marcelle Simmons on 06-12-2024 Monocyte distribution width Auto (Bld) [Entitic vol] 18.31 % 0.00-20.00 [facility] Mucus [Presence] in Urine by AutomatedOrdered By: Marcelle Simmons on 06-12-2024 Mucus Auto Ql (U) Rare [LPF] [facility] Neutrophils [#/volume] in Bl ood by Automated countOrdered By: Marcelle Simmons on 06-12-2024 Neutrophils (Bld) [#/Vol] 4.2 10*3/uL Normal 1.8-7.7 [facility] Comment on above: Performed By: #### G LULS #### Point of Care testing , Nitrite Test strip Ql (U)Ord ered By: Marcelle Simmons on 06-12-2024 Nitrite Ql (U) Negative Negative [facility] No Panel InformationOrdered By: Marcelle Simmons on 06-12-2024 Estimated GFR (CKD-EPI) 20.708 mL/Min [facility] Creatinine Clearance (Chem 36.30 [facility] Nucleated erythrocytes [Pres ence] in Blood by Automated countOrdered By: Marcelle Simmons on 06-12-2024 Nucleated RBC Auto Ql (Bld) 0.2 /100{WBC} 0-0.5 [facility] Platelet mean volume [Entiti c volume] in Blood by Automated countOrdered By: Marcelle Simmons on 06-12-2024 Platelet mean volume (Bld) [Entitic vol] 7.4 fL Normal 6.3-10.7 [facility] Comment on above: Performed By: #### G LULS #### Point of Care testing , Platelets [#/volume] in Bloo d by Automated countOrdered By: Marcelle Simmons on 06-12-2024 Platelets (Bld) [#/Vol] 221 10*3/uL Normal 150-450 [facility] Comment on above: Performed By: #### G LULS #### Point of Care testing , Potassium [Moles/volume] in Serum or PlasmaOrdered By: Marcelle Simmons on 06-12-2024 Potassium [Moles/Vol] 4.1 mmol/L Normal 3.5-5.1 [facility] Comment on above: Performed By: #### G LULS #### Point of Care testing , Protein [Mass/volume] in Ser um or PlasmaOrdered By: Marcelle Simmons on 06-12-2024 Protein [Mass/Vol] 7.2 g/dL Normal 6.4-8.9 [facility] Comment on above: Performed By: #### G LULS #### Point of Care testing , Protein [Mass/volume] in Uri ne by Test stripOrdered By: Marcelle Simmons on 06-12-2024 Protein (U) [Mass/Vol] 200 mg/dL High Negative [facility] Comment on above: Order Comment: Name Collection Type:: Clean-Voided Midstream Performed By: #### P TT, MG, CBC, PT, CMP #### [address] Serum globulin measurement b y calculation (mass/volume)Ordered By: Marcelle Simomns on 06-12-2024 Globulin (S) [Mass/Vol] 3.1 g/dL [facility] Comment on above: Performed By: #### G LULS #### Point of Care testing , Serum or plasma albumin/glob ulin mass ratioOrdered By: Marcelle Simmons on 06-12-2024 Albumin/Globulin [Mass ratio] 1.3 {ratio} [facility] Comment on above: Performed By: #### G LULS #### Point of Care testing , Serum or plasma anion gap de terminationOrdered By: Marcelle Simmons on 06-12-2024 Anion gap [Moles/Vol] 11.9 mmol/L Normal 6.0-15.0 [facility] Comment on above: Performed By: #### G LULS #### Point of Care testing , Serum or plasma non-glucuron idated bilirubin measurement (mass/volume)Ordered By: Marcelle Simmons on 06-12-2024 Bilirubin.indirect [Mass/Vol] 0.4 mg/dL [facility] Sodium [Moles/volume] in Ser um or PlasmaOrdered By: Marcelle Simmons on 06-12-2024 Sodium [Moles/Vol] 138 mmol/L Normal 136-145 [facility] Comment on above: Performed By: #### G LULS #### Point of Care testing , Specific gravity Test strip (U) [Rel density]Ordered By: Marcelle Simmons on 06-12-2024 Specific gravity (U) [Rel density] 1.018 1.001-1.03 0 [facility] Urea nitrogen [Mass/volume] in Serum or PlasmaOrdered By: Marcelle Simmons on 06-12-2024 Urea nitrogen [Mass/Vol] 38 mg/dL High 7-25 [facility] Comment on above: Performed By: #### G LULS #### Point of Care testing , Urine Cultureon 06-12-2024 Bacteria identified Cx Nom (U) 30,000 colonies/ml mixed bacterial skin contaminants including mixed gram negative bacilli - 2 Days PERFORMED BY: [place] [address] PATHOLOGIST PRODUCTION CHECKER HELDER CASTELLANOS M.D. Normal [facility] Comment on above: Performed By: #### P TT, MG, CBC, PT, CMP #### [facility] [address] [place] [address] Urine appearanceOrdered By: Marcelle Smimons on 06-12-2024 Appearance (U) Cloudy Critically abnormal Clear [facility] Comment on above: Order Comment: Name Collection Type:: Clean-Voided Midstream Performed By: #### P TT, MG, CBC, PT, CMP #### [facility] [address] Urine culture routineOrdered By: Marcelle Simmons on 06-12-2024 Bacteria identified Cx Nom (U) bacilli - 2 Days [facility] Urobilinogen Test strip (U) [Mass/Vol]Ordered By: Marcelle Simmons on 06-12-2024 Urobilinogen (U) [Mass/Vol] Normal mg/dL Normal [facility] pH of Urine by Test stripOrd ered By: Marcelle Simmons on 06-12-2024 pH (U) 6.0 [pH] Normal 5.0-9.0 [facility] Comment on above: Order Comment: Name Collection Type:: Clean-Voided Midstream Performed By: #### P TT, MG, CBC, PT, CMP #### [facility] [address] Alanine aminotransferase [En zymatic activity/volume] in Serum or PlasmaOrdered By: Cem De Souza on 05-11-2024 ALT [Catalytic activity/Vol] 28 U/L 7-52 [facility] Albumin [Mass/volume] in Ser um or Plasma by Bromocresol green (BCG) dye binding methoOrdered By: Cem De Souza on 05-11-2024 Albumin BCG dye [Mass/Vol] 3.9 g/dL 3.5-5.7 [facility] Alkaline phosphatase [Enzyma tic activity/volume] in Serum or PlasmaOrdered By: Cem De Souza on 05-11-2024 ALP [Catalytic activity/Vol] 57 U/L 34-104 [facility] Aspartate aminotransferase [ Enzymatic activity/volume] in Serum or PlasmaOrdered By: Cem De Souza on 05-11-2024 AST [Catalytic activity/Vol] 27 U/L 13-39 [facility] Basophils Auto (Bld) [#/Vol] Ordered By: Cem De Souza on 05-11-2024 Basophils (Bld) [#/Vol] 0.1 10*3/uL 0.0-0.2 [facility] Basophils/100 WBC Auto (Bld) Ordered By: Cem De Souza on 05-11-2024 Basophils/100 WBC (Bld) 0.8 % . [facility] Bilirubin.direct [Mass/volum e] in Serum or PlasmaOrdered By: Cem De Souza on 05-11-2024 Bilirubin.direct [Mass/Vol] 0.10 mg/dL 0.03-0.18 [facility] Bilirubin.total [Mass/volume ] in Serum or PlasmaOrdered By: Cem De Souza on 05-11-2024 Bilirubin [Mass/Vol] 0.5 mg/dL 0.3-1.0 [facility] Calcium [Mass/volume] in Ser um or PlasmaOrdered By: Cem De Souza on 05-11-2024 Calcium [Mass/Vol] 9.6 mg/dL 8.6-10.3 [facility] Carbon dioxide, total [Moles /volume] in Serum or PlasmaOrdered By: Cem De Souza on 05-11-2024 CO2 [Moles/Vol] 23.6 mmol/L 21.0-31.0 [facility] Chloride [Moles/volume] in S prabhjot or PlasmaOrdered By: Cem De Souza on 05-11-2024 Chloride [Moles/Vol] 103 mmol/L 98-107 [facility] Creatinine [Mass/volume] in Serum or PlasmaOrdered By: Cem De Souza on 05-11-2024 Creatinine [Mass/Vol] 2.35 mg/dL High 0.60-1.20 [facility] Eosinophils Auto (Bld) [#/Vo l]Ordered By: Cem De Souza on 05-11-2024 Eosinophils (Bld) [#/Vol] 0.3 10*3/uL 0.0-0.45 [facility] Eosinophils/100 WBC Auto (Bl d)Ordered By: Cem De Souza on 05-11-2024 Eosinophils/100 WBC (Bld) 3.6 % . [facility] Erythrocyte distribution wid th Auto (RBC) [Ratio]Ordered By: Cem De Souza on 05-11-2024 Erythrocyte distribution width (RBC) [Ratio] 15.8 % High 11.9-15.3 [facility] Globulin Calc (S) [Mass/Vol] Ordered By: Cem De Souza 05-11-2024 Globulin (S) [Mass/Vol] 3.3 g/dL [facility] Glucose [Mass/volume] in Ser um or PlasmaOrdered By: Cem De Souza 05-11-2024 Glucose [Mass/Vol] 175 mg/dL High 70-100 [facility] Comment on above: ADA recommended refe rence rangeRandom Glucose Reference Range is dependent on time and content of last meal. Glucose of more than 200 mg/dL in a nonstressed, ambulatory subject supports the diagnosis of Diabetes Mellitus. Hematocrit Auto (Bld) [Volum e fraction]Ordered By: Cem De Souza on 05-11-2024 Hematocrit (Bld) [Volume fraction] 38.1 % 34.0-46.4 [facility] Hemoglobin [Mass/volume] in BloodOrdered By: Cem De Souza on 05-11-2024 Hemoglobin (Bld) [Mass/Vol] 12.9 g/dL 11.8-15.4 [facility] Leukocytes [#/volume] correc marcos for nucleated erythrocytes in Blood by Automated counOrdered By: Cem De Souza on 05-11-2024 WBC corrected for nucl RBC Auto (Bld) [#/Vol] 7.3 10*3/uL 3.8-11.6 [facility] Lipase [Enzymatic activity/v olume] in Serum or PlasmaOrdered By: Cem De Souza on 05-11-2024 Lipase [Catalytic activity/Vol] 26.0 U/L 11.0-82.0 [facility] Lymphocytes Auto (Bld) [#/Vo l]Ordered By: Cem De Souza on 05-11-2024 Lymphocytes (Bld) [#/Vol] 2.1 10*3/uL 1.00-4.8 [facility] Lymphocytes/100 WBC Auto (Bl d)Ordered By: Cem De Souza on 05-11-2024 Lymphocytes/100 WBC (Bld) 29.3 % . [facility] MCH Auto (RBC) [Entitic mass ]Ordered By: Cem De Souza on 05-11-2024 MCH (RBC) [Entitic mass] 26.4 pg 24.7-34.3 [facility] MCHC Auto (RBC) [Mass/Vol]Or dered By: Cem De Souza on 05-11-2024 MCHC (RBC) [Mass/Vol] 33.8 g/dL 32.0-35.0 [facility] MCV Auto (RBC) [Entitic vol] Ordered By: Cem De Souza on 05-11-2024 MCV (RBC) [Entitic vol] 78.1 fL Low 80-100 [facility] Monocyte distribution width [Entitic volume] in Blood by AutomatedOrdered By: Cem De Souza on 05-11-2024 Monocyte distribution width Auto (Bld) [Entitic vol] 19.06 % 0.00-20.00 [facility] Monocytes Auto (Bld) [#/Vol] Ordered By: Cem De Souza on 05-11-2024 Monocytes (Bld) [#/Vol] 0.4 10*3/uL 0.0-0.8 [facility] Monocytes/100 WBC Auto (Bld) Ordered By: Cem De Souza on 05-11-2024 Monocytes/100 WBC (Bld) 5.8 % . [facility] Neutrophils Auto (Bld) [#/Vo l]Ordered By: Cem De Souza on 05-11-2024 Neutrophils (Bld) [#/Vol] 4.4 10*3/uL 1.8-7.7 [facility] Neutrophils/100 WBC Auto (Bl d)Ordered By: Cem De Souza on 05-11-2024 Neutrophils/100 WBC (Bld) 60.5 % . [facility] No Panel InformationOrdered By: Cem De Souza on 05-11-2024 Estimated GFR (CKD-EPI) 25.555 mL/Min [facility] Creatinine Clearance (Chem 44.56 [facility] Nucleated erythrocytes [Pres ence] in Blood by Automated countOrdered By: Cem De Souza on 05-11-2024 Nucleated RBC Auto Ql (Bld) 0.2 /100{WBC} 0-0.5 [facility] Platelet mean volume Auto (B ld) [Entitic vol]Ordered By: Cem De Souza on 05-11-2024 Platelet mean volume (Bld) [Entitic vol] 7.3 fL 6.3-10.7 [facility] Platelets Auto (Bld) [#/Vol] Ordered By: Cem De Souza on 05-11-2024 Platelets (Bld) [#/Vol] 216 10*3/uL 150-450 [facility] Potassium [Moles/volume] in Serum or PlasmaOrdered By: Cem De Souza on 05-11-2024 Potassium [Moles/Vol] 4.6 mmol/L 3.5-5.1 [facility] Protein [Mass/volume] in Ser um or PlasmaOrdered By: Cem De Souza on 05-11-2024 Protein [Mass/Vol] 7.2 g/dL 6.4-8.9 [facility] RBC Auto (Bld) [#/Vol]Ordere d By: Cem De Souza on 05-11-2024 RBC (Bld) [#/Vol] 4.88 10*6/uL 3.60-5.00 [facility] Serum or plasma albumin/glob ulin mass ratioOrdered By: Cem De Souza on 05-11-2024 Albumin/Globulin [Mass ratio] 1.2 {ratio} [facility] Serum or plasma anion gap de terminationOrdered By: Cem De Souza on 05-11-2024 Anion gap [Moles/Vol] 13.0 mmol/L 6.0-15.0 [facility] Serum or plasma non-glucuron idated bilirubin measurement (mass/volume)Ordered By: Cem De Souza on 05-11-2024 Bilirubin.indirect [Mass/Vol] 0.4 mg/dL [facility] Sodium [Moles/volume] in Ser um or PlasmaOrdered By: Cem De Souza on 05-11-2024 Sodium [Moles/Vol] 135 mmol/L Low 136-145 [facility] Urea nitrogen [Mass/volume] in Serum or PlasmaOrdered By: Cem De Souza on 05-11-2024 Urea nitrogen [Mass/Vol] 37 mg/dL High 7-25 [facility] WBC Auto (Bld) [#/Vol]Ordere d By: Cem De Souza on 05-11-2024 WBC (Bld) [#/Vol] 7.3 10*3/uL 3.8-11.6 [facility] Bacteria [Presence] in Urine by AutomatedOrdered By: Cem De Souza on 05-10-2024 Bacteria Auto Ql (U) None seen [HPF] None Seen [facility] Bilirubin Test strip Ql (U)O rdered By: Cem De Souza on 05-10-2024 Bilirubin Ql (U) Negative Negative [facility] Color Auto (U)Ordered By: Rolando De Souza on 05-10-2024 Color (U) Light-yellow Yellow [facility] Epithelial cells.squamous [# /area] in Urine sediment by Automated countOrdered By: Cem De Souza on 05-10-2024 Epithelial cells.squamous Auto (Urine sed) [#/Area] 1-2 [HPF] 0-2 [facility] Erythrocytes [#/area] in Uri ne sediment by Automated countOrdered By: Cem De Souza on 05-10-2024 RBC Auto (Urine sed) [#/Area] 1-2 [HPF] 0-4 [facility] Glucose Glucometer (BldC) [M ass/Vol]Ordered By: FLASH GARRETT on 05-10-2024 Glucose [Mass/Vol] 255 mg/dL [facility] Comment on above: Random Glucose Refer ence Range is dependent on time and content of last meal. Glucose of more than 200 mg/dL in a nonstressed, ambulatory subject supports the diagnosis of Diabetes Mellitus. Glucose [Mass/volume] in Uri ne by Test stripOrdered By: Cem De Souza on 05-10-2024 Glucose Test strip (U) [Mass/Vol] >=1000 mg/dL High Normal [facility] HCG ( test) IA.rapi d Ql (U)Ordered By: FLASH GARRETT on 05-10-2024 HCG ( test) Ql (U) Negative [facility] Hemoglobin Test strip Ql (U) Ordered By: Cem De Souza on 05-10-2024 Hemoglobin Ql (U) Negative Negative [facility] Hyaline casts [#/area] in Ur ine sediment by Automated countOrdered By: Cem De Souza on 05-10-2024 Hyaline casts Auto (Urine sed) [#/Area] None [LPF] 0-8 [facility] Ketones Test strip Ql (U)Ord ered By: Cem De Souza on 05-10-2024 Ketones Ql (U) Negative Negative [facility] Leukocyte clumps [Presence] in Urine by AutomatedOrdered By: Cem De Souza on 05-10-2024 Leukocyte clumps Auto Ql (U) Few [LPF] High None Seen [facility] Leukocyte esterase [Presence ] in Urine by Test stripOrdered By: Cem De Souza on 05-10-2024 Leukocyte esterase Test strip Ql (U) Negative Negative [facility] Leukocytes [#/area] in Urine sediment by Automated countOrdered By: Cem De Souza on 05-10-2024 WBC Auto (Urine sed) [#/Area] 5-9 [HPF] High 0-4 [facility] Nitrite Test strip Ql (U)Ord ered By: Cem De Souza on 05-10-2024 Nitrite Ql (U) Negative Negative [facility] Protein Test strip (U) [Mass /Vol]Ordered By: Cem De Souza on 05-10-2024 Protein (U) [Mass/Vol] 100 mg/dL High Negative [facility] Specific gravity Test strip (U) [Rel density]Ordered By: Cem De Souza on 05-10-2024 Specific gravity (U) [Rel density] 1.020 1.001-1.03 0 [facility] Urine appearanceOrdered By: Cem De Souza on 05-10-2024 Appearance (U) Clear Clear [facility] Urobilinogen Test strip (U) [Mass/Vol]Ordered By: Cem De Souza on 05-10-2024 Urobilinogen (U) [Mass/Vol] Normal mg/dL Normal [facility] pH Test strip (U)Ordered By: Cem De Souza on 05-10-2024 pH (U) 6.0 [pH] 5.0-9.0 [facility] Alanine aminotransferase [En zymatic activity/volume] in Serum or PlasmaOrdered By: Jayro Bucio on 02-11-2024 ALT [Catalytic activity/Vol] 24 U/L 7-52 [facility] Albumin [Mass/volume] in Ser um or Plasma by Bromocresol green (BCG) dye binding methoOrdered By: Jayro Bucio on 02-11-2024 Albumin BCG dye [Mass/Vol] 3.3 g/dL Low 3.5-5.7 [facility] Alkaline phosphatase [Enzyma tic activity/volume] in Serum or PlasmaOrdered By: Jayro Bucio on 02-11-2024 ALP [Catalytic activity/Vol] 62 U/L 34-104 [facility] Aspartate aminotransferase [ Enzymatic activity/volume] in Serum or PlasmaOrdered By: Jayro Bucio on 02-11-2024 AST [Catalytic activity/Vol] 30 U/L 13-39 [facility] Basophils Auto (Bld) [#/Vol] Ordered By: Jayro Bucio on 02-11-2024 Basophils (Bld) [#/Vol] 0.0 10*3/uL 0.0-0.2 [facility] Basophils/100 WBC Auto (Bld) Ordered By: Jayro Bucio on 02-11-2024 Basophils/100 WBC (Bld) 0.5 % . [facility] Bilirubin.total [Mass/volume ] in Serum or PlasmaOrdered By: Jayro Bucio on 02-11-2024 Bilirubin [Mass/Vol] 0.4 mg/dL 0.3-1.0 [facility] Calcium [Mass/volume] in Ser um or PlasmaOrdered By: Jayro Bucio on 02-11-2024 Calcium [Mass/Vol] 8.5 mg/dL Low 8.6-10.3 [facility] Carbon dioxide, total [Moles /volume] in Serum or PlasmaOrdered By: Jayro Bucio on 02-11-2024 CO2 [Moles/Vol] 27.9 mmol/L 21.0-31.0 [facility] Chloride [Moles/volume] in S prabhjot or PlasmaOrdered By: Jayro Bucio on 02-11-2024 Chloride [Moles/Vol] 106 mmol/L 98-107 [facility] Creatinine [Mass/volume] in Serum or PlasmaOrdered By: Jayro Bucio on 02-11-2024 Creatinine [Mass/Vol] 2.00 mg/dL High 0.60-1.20 [facility] Comment on above: Delta: 3.06 on 02/09 Eosinophils Auto (Bld) [#/Vo l]Ordered By: Jayro Bucio on 02-11-2024 Eosinophils (Bld) [#/Vol] 0.3 10*3/uL 0.0-0.45 [facility] Eosinophils/100 WBC Auto (Bl d)Ordered By: Jayro Bucio on 02-11-2024 Eosinophils/100 WBC (Bld) 4.9 % . [facility] Erythrocyte distribution wid th Auto (RBC) [Ratio]Ordered By: Jayro Bucio on 02-11-2024 Erythrocyte distribution width (RBC) [Ratio] 14.5 % 11.9-15.3 [facility] Globulin Calc (S) [Mass/Vol] Ordered By: Jayro Bucio on 02-11-2024 Globulin (S) [Mass/Vol] 3.0 g/dL [facility] Glucose Glucometer (BldC) [M ass/Vol]Ordered By: Jayro Bucio on 02-11-2024 Glucose [Mass/Vol] 156 mg/dL [facility] Comment on above: Random Glucose Refer ence Range is dependent on time and content of last meal. Glucose of more than 200 mg/dL in a nonstressed, ambulatory subject supports the diagnosis of Diabetes Mellitus. Glucose [Mass/volume] in Ser um or PlasmaOrdered By: Jayro Bucio on 02-11-2024 Glucose [Mass/Vol] 147 mg/dL High 70-100 [facility] Comment on above: ADA recommended refe rence rangeRandom Glucose Reference Range is dependent on time and content of last meal. Glucose of more than 200 mg/dL in a nonstressed, ambulatory subject supports the diagnosis of Diabetes Mellitus. Hematocrit Auto (Bld) [Volum e fraction]Ordered By: Jayro Bucio on 02-11-2024 Hematocrit (Bld) [Volume fraction] 33.3 % Low 34.0-46.4 [facility] Hemoglobin [Mass/volume] in BloodOrdered By: Jayro Bucio on 02-11-2024 Hemoglobin (Bld) [Mass/Vol] 11.3 g/dL Low 11.8-15.4 [facility] Leukocytes [#/volume] correc marcos for nucleated erythrocytes in Blood by Automated counOrdered By: Jayro Bucio on 02-11-2024 WBC corrected for nucl RBC Auto (Bld) [#/Vol] 5.4 10*3/uL 3.8-11.6 [facility] Lymphocytes Auto (Bld) [#/Vo l]Ordered By: Jayro Bucio on 02-11-2024 Lymphocytes (Bld) [#/Vol] 1.2 10*3/uL 1.00-4.8 [facility] Lymphocytes/100 WBC Auto (Bl d)Ordered By: Jayro Bucio on 02-11-2024 Lymphocytes/100 WBC (Bld) 21.4 % . [facility] MCH Auto (RBC) [Entitic mass ]Ordered By: Jayro Bucio on 02-11-2024 MCH (RBC) [Entitic mass] 26.4 pg 24.7-34.3 [facility] MCHC Auto (RBC) [Mass/Vol]Or dered By: Jayro Bucio on 02-11-2024 MCHC (RBC) [Mass/Vol] 33.8 g/dL 32.0-35.0 [facility] MCV Auto (RBC) [Entitic vol] Ordered By: Jayro Bucio on 02-11-2024 MCV (RBC) [Entitic vol] 78.0 fL Low 80-100 [facility] Monocytes Auto (Bld) [#/Vol] Ordered By: Jayro Bucio on 02-11-2024 Monocytes (Bld) [#/Vol] 0.4 10*3/uL 0.0-0.8 [facility] Monocytes/100 WBC Auto (Bld) Ordered By: Jayro Bucio on 02-11-2024 Monocytes/100 WBC (Bld) 6.9 % . [facility] Neutrophils Auto (Bld) [#/Vo l]Ordered By: Jayro Bucio on 02-11-2024 Neutrophils (Bld) [#/Vol] 3.6 10*3/uL 1.8-7.7 [facility] Neutrophils/100 WBC Auto (Bl d)Ordered By: Jayro Bucio on 02-11-2024 Neutrophils/100 WBC (Bld) 66.3 % . [facility] No Panel InformationOrdered By: Jayro Bucio on 02-11-2024 Estimated GFR (CKD-EPI) 31.010 mL/Min [facility] Creatinine Clearance (Chem 53.15 [facility] Nucleated erythrocytes [Pres ence] in Blood by Automated countOrdered By: Jayro Bucio on 02-11-2024 Nucleated RBC Auto Ql (Bld) 0.3 /100{WBC} 0-0.5 [facility] Platelet mean volume Auto (B ld) [Entitic vol]Ordered By: Jayro Bucio on 02-11-2024 Platelet mean volume (Bld) [Entitic vol] 7.2 fL 6.3-10.7 [facility] Platelets Auto (Bld) [#/Vol] Ordered By: Jayro Bucio on 02-11-2024 Platelets (Bld) [#/Vol] 209 10*3/uL 150-450 [facility] Potassium [Moles/volume] in Serum or PlasmaOrdered By: Jayro Bucio on 02-11-2024 Potassium [Moles/Vol] 3.4 mmol/L Low 3.5-5.1 [facility] Protein [Mass/volume] in Ser um or PlasmaOrdered By: Jayro Bucio on 02-11-2024 Protein [Mass/Vol] 6.3 g/dL Low 6.4-8.9 [facility] RBC Auto (Bld) [#/Vol]Ordere d By: Jayro Bucio on 02-11-2024 RBC (Bld) [#/Vol] 4.27 10*6/uL 3.60-5.00 [facility] Serum or plasma albumin/glob ulin mass ratioOrdered By: Jayro Bucio on 02-11-2024 Albumin/Globulin [Mass ratio] 1.1 {ratio} [facility] Serum or plasma anion gap de terminationOrdered By: Jayro Bucio on 02-11-2024 Anion gap [Moles/Vol] 9.5 mmol/L 6.0-15.0 [facility] Sodium [Moles/volume] in Ser um or PlasmaOrdered By: Jayro Bucio on 02-11-2024 Sodium [Moles/Vol] 140 mmol/L 136-145 [facility] Urea nitrogen [Mass/volume] in Serum or PlasmaOrdered By: Jayro Bucio on 02-11-2024 Urea nitrogen [Mass/Vol] 20 mg/dL 7-25 [facility] WBC Auto (Bld) [#/Vol]Ordere d By: Jayro Bucio on 02-11-2024 WBC (Bld) [#/Vol] 5.4 10*3/uL 3.8-11.6 [facility] Activated partial thrombopla stin time (aPTT) in platelet poor plasma by coagulation aOrdered By: Jayro Bucio on 02-09-2024 aPTT Coag (PPP) [Time] 31.5 s 25.1-36.5 [facility] Comment on above: A hematocrit value g reater than 55% may lead to inaccurate results in coagulation testing. Patients having hematocrit values >55% require a special collection tube for coagulation studies. Please contact the laboratory at [phone] for redraw instructions. Glucose mean value [Mass/vol ume] in Blood Estimated from glycated hemoglobinOrdered By: Jayro Bucio on 02-09-2024 Average glucose Estimated from glycated hemoglobin (Bld) [Mass/Vol] 214 mg/dL [facility] Hemoglobin A1c percentageOrd ered By: Jayro Bucio on 02-09-2024 HbA1c (Bld) [Mass fraction] 9.1 % High 4.3-5.6 [facility] Comment on above: Increased risk for d iabetes: 5.7 - 6.4diabetes: >6.4glycemic control for adults with diabetes: <7.0 INR in Platelet poor plasma by Coagulation assayOrdered By: Jayro Bucio on 02-09-2024 INR Coag (PPP) [Relative time] 1.0 {INR} [facility] Comment on above: INR Therapeutic Rang e A) Pre- and Peroperative OAT started two weeks before surgery. NOT HIP SURGERY: 1.5 - 2.5 HIP SURGERY: 2 - 3B) Primary and secondary prevention of venous THROMBOSIS: 2 - 3C) Active venous thrombosis, pulmonary embolismand prevention of recurrent venous thrombosis: 2 - 3D) Prevention of arterial thromboembolismincluding patients with mechanical heart valves: 3 - 4.5 Prothrombin time (PT)Ordered By: Jayro Bucio on 02-09-2024 PT Coag (PPP) [Time] 12.0 s 9.0-12.9 [facility] Comment on above: A hematocrit value g reater than 55% may lead to inaccurate results in coagulation testing. Patients having hematocrit values >55% require a special collection tube for coagulation studies. Please contact the laboratory at [phone] for redraw instructions. Alanine aminotransferase [En zymatic activity/volume] in Serum or PlasmaOrdered By: Jorge Doshi on 02-08-2024 ALT [Catalytic activity/Vol] 40 U/L 7-52 [facility] Albumin [Mass/volume] in Ser um or Plasma by Bromocresol green (BCG) dye binding methoOrdered By: Jorge Doshi on 02-08-2024 Albumin BCG dye [Mass/Vol] 3.8 g/dL 3.5-5.7 [facility] Alkaline phosphatase [Enzyma tic activity/volume] in Serum or PlasmaOrdered By: Jorge Doshi on 02-08-2024 ALP [Catalytic activity/Vol] 65 U/L 34-104 [facility] Aspartate aminotransferase [ Enzymatic activity/volume] in Serum or PlasmaOrdered By: Jorge Doshi on 02-08-2024 AST [Catalytic activity/Vol] 47 U/L 13-39 [facility] Automated erythrocytes count in urine sediment (number/area)Ordered By: Jorge Doshi on 02-08-2024 RBC Auto (Urine sed) [#/Area] 3-4 [HPF] 0-4 [facility] Automated leukocytes count i n urine sediment (number/area)Ordered By: Jorge Doshi on 02-08-2024 WBC Auto (Urine sed) [#/Area] 20-49 [HPF] High 0-4 [facility] Automated urine hyaline cast s count (number/volume)Ordered By: Jorge Doshi on 02-08-2024 Hyaline casts Auto (U) [#/Vol] None seen [LPF] 0-1 [facility] Basophils Auto (Bld) [#/Vol] Ordered By: Jorge Doshi on 02-08-2024 Basophils (Bld) [#/Vol] 0.1 10*3/uL 0.0-0.2 [facility] Basophils/100 WBC Auto (Bld) Ordered By: Jorge Doshi on 02-08-2024 Basophils/100 WBC (Bld) 0.9 % . [facility] Bilirubin Test strip Ql (U)O rdered By: Jogre Doshi on 02-08-2024 Bilirubin Ql (U) Negative Negative [facility] Bilirubin.direct [Mass/volum e] in Serum or PlasmaOrdered By: Jorge Doshi on 02-08-2024 Bilirubin.direct [Mass/Vol] 0.10 mg/dL 0.03-0.18 [facility] Bilirubin.total [Mass/volume ] in Serum or PlasmaOrdered By: Jorge Doshi on 02-08-2024 Bilirubin [Mass/Vol] 0.5 mg/dL 0.3-1.0 [facility] COVID CepheidOrdered By: Dayana Doshi on 02-08-2024 SARS-CoV-2 (COVID-19) Ab IA Ql Negative Negative [facility] Comment on above: This is a duplicate [employer] Xpert Xpress CoV-2/Flu/RSV Plus RNA by RT-PCR result to be used for statistical tracking purpose only. SARS-CoV-2 (COVID-19) RNA DANIEL+probe Ql (Unsp spec) [facility] Calcium [Mass/volume] in Ser um or PlasmaOrdered By: Jorge Doshi on 02-08-2024 Calcium [Mass/Vol] 9.6 mg/dL 8.6-10.3 [facility] Carbon dioxide, total [Moles /volume] in Serum or PlasmaOrdered By: Jorge Doshi on 02-08-2024 CO2 [Moles/Vol] 29.9 mmol/L 21.0-31.0 [facility] Casts typing in urine sedime nt by light microscopyOrdered By: Jorge Doshi on 02-08-2024 Casts LM Nom (Urine sed) None seen [LPF] None Seen [facility] Chloride [Moles/volume] in S prabhjot or PlasmaOrdered By: Jorge Doshi on 02-08-2024 Chloride [Moles/Vol] 101 mmol/L 98-107 [facility] Color Auto (U)Ordered By: Jorge Doshi on 02-08-2024 Color (U) Yellow Yellow [facility] Creatinine (Bld) [Mass/Vol]O rdered By: Jorge Doshi on 02-08-2024 Creatinine [Mass/Vol] 2.3 mg/dL High 0.6-1.3 [facility] Comment on above: ER/ESD physician is notified/shown all ISTAT results.Critical values may be confirmed by laboratory testing ifdeemed necessary by ER attending doctor. Creatinine [Mass/volume] in Serum or PlasmaOrdered By: Jorge Doshi on 02-08-2024 Creatinine [Mass/Vol] 2.12 mg/dL 0.60-1.20 [facility] Eosinophils Auto (Bld) [#/Vo l]Ordered By: Jorge Doshi on 02-08-2024 Eosinophils (Bld) [#/Vol] 0.3 10*3/uL 0.0-0.45 [facility] Eosinophils/100 WBC Auto (Bl d)Ordered By: Jorge Doshi on 02-08-2024 Eosinophils/100 WBC (Bld) 4.1 % . [facility] Erythrocyte distribution wid th Auto (RBC) [Ratio]Ordered By: Jorge Doshi on 02-08-2024 Erythrocyte distribution width (RBC) [Ratio] 14.5 % 11.9-15.3 [facility] Globulin Calc (S) [Mass/Vol] Ordered By: Jorge Doshi on 02-08-2024 Globulin (S) [Mass/Vol] 3.5 g/dL [facility] Glucose [Mass/volume] in Ser um or PlasmaOrdered By: Jorge Doshi on 02-08-2024 Glucose [Mass/Vol] 164 mg/dL 70-100 [facility] Comment on above: ADA recommended refe rence rangeRandom Glucose Reference Range is dependent on time and content of last meal. Glucose of more than 200 mg/dL in a nonstressed, ambulatory subject supports the diagnosis of Diabetes Mellitus. HCG ( test) IA.rapi d Ql (U)Ordered By: Jorge Doshi on 02-08-2024 HCG ( test) Ql (U) Negative [facility] Hematocrit Auto (Bld) [Volum e fraction]Ordered By: Jorge Doshi on 02-08-2024 Hematocrit (Bld) [Volume fraction] 40.5 % 34.0-46.4 [facility] Hemoglobin [Mass/volume] in BloodOrdered By: Jorge Doshi on 02-08-2024 Hemoglobin (Bld) [Mass/Vol] 13.5 g/dL 11.8-15.4 [facility] INR in Platelet poor plasma by Coagulation assayOrdered By: Jorge Doshi on 02-08-2024 INR Coag (PPP) [Relative time] 1.0 {INR} [facility] Comment on above: INR Therapeutic Rang e A) Pre- and Peroperative OAT started two weeks before surgery. NOT HIP SURGERY: 1.5 - 2.5 HIP SURGERY: 2 - 3B) Primary and secondary prevention of venous THROMBOSIS: 2 - 3C) Active venous thrombosis, pulmonary embolismand prevention of recurrent venous thrombosis: 2 - 3D) Prevention of arterial thromboembolismincluding patients with mechanical heart valves: 3 - 4.5 Ketones Auto test strip (U) [Mass/Vol]Ordered By: Jorge Doshi on 02-08-2024 Ketones (U) [Mass/Vol] Trace High [facility] Leukocytes [#/volume] correc marcos for nucleated erythrocytes in Blood by Automated counOrdered By: Jorge Doshi on 02-08-2024 WBC corrected for nucl RBC Auto (Bld) [#/Vol] 7.1 10*3/uL 3.8-11.6 [facility] Lipase [Enzymatic activity/v olume] in Serum or PlasmaOrdered By: Jorge Doshi on 02-08-2024 Lipase [Catalytic activity/Vol] 8.0 U/L Low 11.0-82.0 [facility] Lymphocytes Auto (Bld) [#/Vo l]Ordered By: Jorge Doshi on 02-08-2024 Lymphocytes (Bld) [#/Vol] 1.5 10*3/uL 1.00-4.8 [facility] Lymphocytes/100 WBC Auto (Bl d)Ordered By: Jorge Doshi on 02-08-2024 Lymphocytes/100 WBC (Bld) 21.6 % . [facility] MCH Auto (RBC) [Entitic mass ]Ordered By: Jorge Doshi on 02-08-2024 MCH (RBC) [Entitic mass] 26.1 pg 24.7-34.3 [facility] MCHC Auto (RBC) [Mass/Vol]Or dered By: Jorge Doshi on 02-08-2024 MCHC (RBC) [Mass/Vol] 33.4 g/dL 32.0-35.0 [facility] MCV Auto (RBC) [Entitic vol] Ordered By: Jorge Doshi on 02-08-2024 MCV (RBC) [Entitic vol] 78.2 fL 80-100 [facility] Monocyte distribution width [Entitic volume] in Blood by AutomatedOrdered By: Jorge Doshi on 02-08-2024 Monocyte distribution width Auto (Bld) [Entitic vol] 17.42 % 0.00-20.00 [facility] Monocytes Auto (Bld) [#/Vol] Ordered By: Jorge Doshi on 02-08-2024 Monocytes (Bld) [#/Vol] 0.4 10*3/uL 0.0-0.8 [facility] Monocytes/100 WBC Auto (Bld) Ordered By: Jorge Doshi on 02-08-2024 Monocytes/100 WBC (Bld) 5.1 % . [facility] Neutrophils Auto (Bld) [#/Vo l]Ordered By: Jorge Doshi on 02-08-2024 Neutrophils (Bld) [#/Vol] 4.8 10*3/uL 1.8-7.7 [facility] Neutrophils/100 WBC Auto (Bl d)Ordered By: Jorge Doshi on 02-08-2024 Neutrophils/100 WBC (Bld) 68.3 % . [facility] Nitrite Test strip Ql (U)Ord ered By: Jorge Doshi on 02-08-2024 Nitrite Ql (U) Negative Negative [facility] No Panel InformationOrdered By: Jorge Doshi on 02-08-2024 Bedside Estimated GFR (eGFR) 26.222 [facility] Estimated GFR (CKD-EPI) 28.916 mL/Min [facility] Creatinine Clearance (Chem 49.79 [facility] Nucleated erythrocytes [Pres ence] in Blood by Automated countOrdered By: Jorge Doshi on 02-08-2024 Nucleated RBC Auto Ql (Bld) 0.3 /100{WBC} 0-0.5 [facility] Platelet mean volume Auto (B ld) [Entitic vol]Ordered By: Jorge Doshi on 02-08-2024 Platelet mean volume (Bld) [Entitic vol] 7.5 fL 6.3-10.7 [facility] Platelets Auto (Bld) [#/Vol] Ordered By: Jorge Doshi on 02-08-2024 Platelets (Bld) [#/Vol] 259 10*3/uL 150-450 [facility] Potassium [Moles/volume] in Serum or PlasmaOrdered By: Jorge Doshi on 02-08-2024 Potassium [Moles/Vol] 4.0 mmol/L 3.5-5.1 [facility] Protein Auto test strip (U) [Mass/Vol]Ordered By: Jorge Doshi on 02-08-2024 Protein (U) [Mass/Vol] mg/dL High Negative [facility] Protein [Mass/volume] in Ser um or PlasmaOrdered By: Jorge Doshi on 02-08-2024 Protein [Mass/Vol] 7.3 g/dL 6.4-8.9 [facility] Prothrombin time (PT)Ordered By: Jorge Doshi on 02-08-2024 PT Coag (PPP) [Time] 11.4 s 9.0-12.9 [facility] Comment on above: A hematocrit value g reater than 55% may lead to inaccurate results in coagulation testing. Patients having hematocrit values >55% require a special collection tube for coagulation studies. Please contact the laboratory at [phone] for redraw instructions. RBC Auto (Bld) [#/Vol]Ordere d By: Jorge Doshi on 02-08-2024 RBC (Bld) [#/Vol] 5.18 10*6/uL 3.60-5.00 [facility] Serum or plasma albumin/glob ulin mass ratioOrdered By: Jorge Doshi on 02-08-2024 Albumin/Globulin [Mass ratio] 1.1 {ratio} [facility] Serum or plasma anion gap de terminationOrdered By: Jorge Doshi on 02-08-2024 Anion gap [Moles/Vol] 11.1 mmol/L 6.0-15.0 [facility] Serum or plasma non-glucuron idated bilirubin measurement (mass/volume)Ordered By: Jorge Doshi on 02-08-2024 Bilirubin.indirect [Mass/Vol] 0.4 mg/dL [facility] Sodium [Moles/volume] in Ser um or PlasmaOrdered By: Jorge Doshi on 02-08-2024 Sodium [Moles/Vol] 138 mmol/L 136-145 [facility] Specific gravity Auto test s trip (U) [Rel density]Ordered By: Jorge Doshi on 02-08-2024 Specific gravity (U) [Rel density] 1.025 1.001-1.03 0 [facility] Squamous epithelial cells de tection in urine sediment by light microscopyOrdered By: Jorge Doshi on 02-08-2024 Epithelial cells.squamous LM Ql (Urine sed) 10-19 [HPF] High 0-2 [facility] Urea nitrogen [Mass/volume] in Serum or PlasmaOrdered By: Jorge Doshi on 02-08-2024 Urea nitrogen [Mass/Vol] 26 mg/dL 7-25 [facility] Urine bacteria detection by automated methodOrdered By: Jorge Doshi on 02-08-2024 Bacteria Auto Ql (U) 2+ High None Seen [facility] Urine clarity by refractomet ry automatedOrdered By: Jorge Doshi on 02-08-2024 Clarity Refractometry automated (U) Cloudy Abnormal Clear [facility] Urine culture routineOrdered By: Jorge Doshi on 02-08-2024 Bacteria identified Cx Nom (U) Proteus mirabilis Abnormal [facility] Urine glucose measurement by automated test strip (mass/volume)Ordered By: Jorge Doshi on 02-08-2024 Glucose Auto test strip (U) [Mass/Vol] Normal mg/dL Normal [facility] Urine hemoglobin detection b y automated test stripOrdered By: Jorge Doshi on 02-08-2024 Hemoglobin Auto test strip Ql (U) Negative Negative [facility] Urine leukocyte esterase det ection by automated test stripOrdered By: Jorge Doshi on 02-08-2024 Leukocyte esterase Auto test strip Ql (U) 2+ High Negative [facility] Urobilinogen Auto test strip (U) [Mass/Vol]Ordered By: Jorge Doshi on 02-08-2024 Urobilinogen (U) [Mass/Vol] Normal mg/dL Normal [facility] WBC Auto (Bld) [#/Vol]Ordere d By: Jorge Doshi on 02-08-2024 WBC (Bld) [#/Vol] 7.1 10*3/uL 3.8-11.6 [facility] pH Auto test strip (U)Ordere d By: Jorge Doshi on 02-08-2024 pH (U) 5.5 [pH] 5.0-9.0 [facility] COMPLETE BLOOD COUNTon 02-04 Erythrocyte distribution width (RBC) [Ratio] 14.8 % Normal 11.5-15.0 [facility] Comment on above: Performed By: #### 3 5365-6, 43686-1, RENAL, 3084-1, 2731-8, CBC #### [facility] ([id number]) [address], [address] [place] [address] Hematocrit (Bld) [Volume fraction] 36.4 % Normal 35-47 [facility] Comment on above: Performed By: #### 3 5365-6, 04693-0, RENAL, 3084-1, 2731-8, CBC #### [facility] ([id number]) [address], [address] [place] [address] Hemoglobin (Bld) [Mass/Vol] 12.2 g/dL Normal 11.7-15.5 [facility] Comment on above: Performed By: #### 3 5365-6, 02014-5, RENAL, 3084-1, 2731-8, CBC #### [facility] ([id number]) [address], [address] [place] [address] MCH (RBC) [Entitic mass] 26.6 pg Low 27-34 [facility] Comment on above: Performed By: #### 3 5365-6, 59676-1, RENAL, 3083-, 2730-8, CBC #### [facility] ([id number]) [address], [facility] [address] [place] [address] MCHC (RBC) [Mass/Vol] 33.5 g/dL Normal 32-36 [facility] Comment on above: Performed By: #### 3 5365-6, 29823-5, RENAL, 3083-10, 2730-, CBC #### [facility] ([id number]) [address], [facility] [address] [place] [address] MCV (RBC) [Entitic vol] 80 fL Normal 80-100 [facility] Comment on above: Performed By: #### 3 5365-6, 64131-3, RENAL, 3083-10, 2731-05, CBC #### [facility] ([id number]) [address], [address] [place] [address] Platelet mean volume (Bld) [Entitic vol] 7.8 fL Normal 7-12 [facility] Comment on above: Performed By: #### 3 5365-6, 92860-8, RENAL, 3083-10, 2731-05, CBC #### [facility] ([id number]) [address], [facility] [address] [place] [address] Platelets (Bld) [#/Vol] 197 10*3/uL Normal 150-450 [facility] Comment on above: Performed By: #### 3 5365-6, 38229-2, RENAL, 3083-, 2730-, CBC #### [facility] ([id number]) [address], [facility] [address] [place] [address] RBC COUNT 4.58 X10E12/L Normal 3.80-5.20 [facility] Comment on above: Performed By: #### 3 5365-6, 96980-4, RENAL, 3084-1, 2731-8, CBC #### [facility] ([id number]) [address], [address] [place] [address] WBC (Bld) [#/Vol] 4.7 10*3/uL Normal 4.0-11.0 [facility] Comment on above: Performed By: #### 3 5365-6, 37788-5, RENAL, 3084-1, 2731-8, CBC #### [facility] ([id number]) [address], [address] [place] [address] MAGNESIUMon 02-05-2024 Magnesium [Mass/Vol] 1.6 mg/dL Low 1.8-2.6 [facility] Comment on above: Performed By: #### 3 5365-6, 03555-9, RENAL, 3083-, 2730-8, CBC #### [facility] ([id number]) [address], [address] [place] [address] PROTEIN CREAT RATIOon 2023 RANDOM URINE PROTEIN 3210 mg/L High <120 [facility] Comment on above: Performed By: #### U PCR #### [facility] ([id number]) [address], [address] [place] [address] U/PRO/BRILLIANDEER LOOPER RATIO CALC 4.82 High <0.2 [facility] Comment on above: Result Comment: Neph rotic Syndrome is associated with ratios >3.5 Performed By: #### U PCR #### [facility] ([id number]) [address], [address] [place] [address] URINE CREATININE,RDM 66.63 mg/dL Normal [facility] Comment on above: Performed By: #### U PCR #### [facility] ([id number]) [address], [address] [place] [address] Parathyrin.intact [Mass/Vol] on 02-05-2024 PTH INTACT 117 pg/mL High 12-88 [facility] Comment on above: Performed By: #### 3 5365-6, 83197-0, RENAL, 3084-1, 2731-8, CBC #### [facility] ([id number]) [address], [address] [place] [address] RENAL PANELon 02-05-2024 Albumin [Mass/Vol] 3.5 g/dL Normal 3.2-5.3 [facility] Comment on above: Performed By: #### 3 5365-6, 15776-3, RENAL, 3084-1, 2731-8, CBC #### [facility] ([id number]) [address], [address] [place] [address] Anion gap [Moles/Vol] 10 mmol/L Normal 5-15 [facility] Comment on above: Performed By: #### 3 5365-6, 40748-5, RENAL, 3084-1, 2731-8, CBC #### [facility] ([id number]) [address], [address] [place] [address] Calcium [Mass/Vol] 9.1 mg/dL Normal 8.5-10.5 [facility] Comment on above: Performed By: #### 3 5365-6, 91909-3, RENAL, 3084-1, 2731-8, CBC #### [facility] ([id number]) [address], [address] [place] [address] Chloride [Moles/Vol] 105 mmol/L Normal 98-109 [facility] Comment on above: Performed By: #### 3 5365-6, 91312-7, RENAL, 3084-1, 2731-8, CBC #### [facility] ([id number]) [address], [address] [place] [address] CO2 [Moles/Vol] 24 mmol/L Normal 22-32 [facility] Comment on above: Performed By: #### 3 5365-6, 07979-3, RENAL, 3084-1, 2731-8, CBC #### [facility] ([id number]) [address], [address] [place] [address] Creatinine [Mass/Vol] 2.02 mg/dL High 0.40-1.00 [facility] Comment on above: Result Comment: METH OD TRACEABLE TO IDMS STANDARD Performed By: #### 3 5365-6, 22106-4, RENAL, 3084-1, 2731-8, CBC #### [facility] ([id number]) [address], [address] [place] [address] GFR/1.73 sq M.predicted among non-blacks MDRD (S/P/Bld) [Vol rate/Area] 31 mL/min/{1.73_m2} Low >59 [facility] Comment on above: Result Comment: Reported eGFR is based on the CKD-EPI 2020 equation that does not use a race coefficient. Performed By: #### 3 5365-6, 03535-3, RENAL, 3084-1, 2731-8, CBC #### [facility] ([id number]) [address], [address] [place] [address] Glucose [Mass/Vol] 223 mg/dL High 65-99 [facility] Comment on above: Performed By: #### 3 5365-6, 20448-9, RENAL, 3084-1, 2731-8, CBC #### [facility] ([id number]) [address], [address] [place] [address] Phosphate [Mass/Vol] 4.2 mg/dL Normal 2.4-4.9 [facility] Comment on above: Performed By: #### 3 5365-6, 56503-2, RENAL, 3084-1, 2731-8, CBC #### [facility] ([id number]) [address], [address] [place] [address] Potassium [Moles/Vol] 4.6 mmol/L Normal 3.5-5.0 [facility] Comment on above: Performed By: #### 3 5365-6, 76462-9, RENAL, 3084-1, 2731-8, CBC #### [facility] ([id number]) [address], [address] [place] [address] Sodium [Moles/Vol] 139 mmol/L Normal 134-146 [facility] Comment on above: Performed By: #### 3 5365-6, 06529-6, RENAL, 3084-1, 2731-8, CBC #### [facility] ([id number]) [address], [address] [place] [address] Urea nitrogen [Mass/Vol] 40 mg/dL High 5-23 [facility] Comment on above: Performed By: #### 3 5365-6, 06450-9, RENAL, 3084-1, 2731-8, CBC #### [facility] ([id number]) [address], [address] [place] [address] URIC ACIDon 02-05-2024 Urate [Mass/Vol] 9.1 mg/dL High 2.6-7.2 [facility] Comment on above: Performed By: #### 3 5365-6, 32466-3, RENAL, 3084-1, 2731-8, CBC #### [facility] ([id number]) [address], [address] [place] [address] URINALYSISon 02-05-2024 Bilirubin Ql (U) Negative Normal NEG [facility] BLOOD/HGB Negative Normal NEG [facility] Color (U) YELLOW Normal YELLOW [facility] Glucose Ql (U) 50 mg/dL Abnormal NEG [facility] Ketones Ql (U) Negative Normal NEG [facility] Leukocyte esterase Test strip Ql (U) Negative Normal NEG [facility] Nitrite Ql (U) Negative Normal NEG [facility] pH (U) 6.5 [pH] Normal 5.0-8.5 [facility] Protein Ql (U) 300 mg/dL Abnormal NEG [facility] R.B.CELLS 0 /hpf Normal 0-5 [facility] Specific gravity (U) [Rel density] 1.012 Normal 1.003-1.03 5 [facility] SQUAMOUS EPITHELIUM 7 /hpf High 0-5 [facility] TURBIDITY CLEAR Normal CLEAR [facility] Urobilinogen (U) [Mass/Vol] mg/dL Normal <1.1 [facility] W.B.CELLS 7 /hpf High 0-5 [facility] Vitamin D+Metabolites [Mass/ Vol]on 02-05-2024 VITAMIN D 25 HYD TOT 23.7 ng/mL Low 30-100 [facility] Comment on above: Result Comment: Vitamin D status 25 [place] Vitamin D Deficiency <20 ng/mL Insufficiency 20-29 ng/mL Sufficiency 30-100 ng/mL Toxicity >100 ng/mL NOTE: A pediatric reference range has not been established by the prefabricator of this kit. The [place] [employer] [employer] recommends a Vitamin D level of = or >20ng/mL in infants and children. Performed By: #### 3 5365-6, 37981-7, RENAL, 3084-1, 2731-8, CBC #### [facility] ([id number]) [address] [place] [address] FREE T3on 01-01-2024 Free T3 [Mass/Vol] 2.45 pg/mL Low 2.50-3.90 [facility] Comment on above: Performed By: #### T HYR, 3051-0, 2-9, 22538-7 #### [facility] ([id number]) [address], [address] [place] [address] HGB A1C (GLYCO-HGB)on 2023 Glucose [Mass/Vol] 200 mg/dL Normal [facility] Comment on above: Performed By: #### T MARIA TERESAR, 0, 2132-06, 79878-3 #### [facility] ([id number]) [address], [facility] [address] [place] [address] HbA1c (Bld) [Mass fraction] 8.6 % High 4.4-5.6 [facility] Comment on above: Result Comment: NOTE ADA Guidelines Result HgbA1c Normal : less than 5.7 % Prediabetes : 5.7 % to 6.4 % Diabetes : > 6.4 % Use with caution in patients with abnormal hemoglobin variants as the half-life of red blood cells and in vivo glycation rates are affected. Performed By: #### T TRI, 0, 2132-06, 11437-6 #### [facility] ([id number]) [address], [facility] [address] [place] [address] THYROID PROFILEon 01-01-2024 Free T4 [Mass/Vol] 0.64 ng/dL Normal 0.61-1.60 [facility] Comment on above: Performed By: #### T MARIA TERESAR, 0, 2132-06, 27050-3 #### [facility] ([id number]) [address], [address] [place] [address] TSH 10.83 uIU/mL High 0.49-4.67 [facility] Comment on above: Performed By: #### T HYR, 0, 2132-06, 53375-3 #### [facility] ([id number]) [address], [address] [place] [address] VITAMIN B12on 01-01-2024 Cobalamin (Vitamin B12) [Mass/Vol] 301 pg/mL Normal 180-914 [facility] Comment on above: Performed By: #### Adrianne MORELMarietta, 3050-0, 2132-06, 81575-5 #### [facility] ([id number]) [address] [place] [address], [address] [place] [address] Vitamin D+Metabolites [Mass/ Vol]on 01-01-2024 VITAMIN D 25 HYD TOT 29.0 ng/mL Low 30-100 [facility] Comment on above: Result Comment: Vitamin D status 25 [place] Vitamin D Deficiency <20 ng/mL Insufficiency 20-29 ng/mL Sufficiency 30-100 ng/mL Toxicity >100 ng/mL NOTE: A pediatric reference range has not been established by the prefabricator of this kit. The [place] [employer] recommends a Vitamin D level of = or >20ng/mL in infants and children. Performed By: #### Adrianne TRI, 3050-0, 2132-06, 98206-0 #### [facility] ([id number]) [address] [place] [address], [address] [place] [address] Amylaseon 12-26-2023 Amylase [Catalytic activity/Vol] 27 U/L Normal 25-157 [facility] Comment on above: Performed By: #### 2 885392, 9640224, 46164547, 311264221, 4053154, 1396835, 0895717 ####[facility] [address] [place] [address] BMPon 12-26-2023 Anion gap [Moles/Vol] 12 mmol/L Normal 6-16 [facility] Comment on above: Performed By: #### 2 471516, 6141185, 70018056, 312044295, 2965838, 1674546, 7708392 ####[facility] [address] [place] [address] Calcium [Mass/Vol] 9.1 mg/dL Normal 8.9-11.1 [facility] Comment on above: Performed By: #### 2 724294, 4558548, 99404270, 917658343, 8236404, 3918191, 5062690 ####[facility] [address] [place] [address] Chloride [Moles/Vol] 102 mmol/L Normal 101-111 [facility] Comment on above: Performed By: #### 2 299468, 4599870, 78111184, 044000014, 9890457, 1460946, 0530765 ####[facility] [address] [place] [address] CO2 [Moles/Vol] 27 mmol/L Normal 21-31 [facility] Comment on above: Performed By: #### 2 660775, 0341310, 73584802, 502419614, 4427926, 1037706, 7870747 ####[facility] [address] [place] [address] Creatinine [Mass/Vol] 2.1 mg/dL High 0.5-1.3 [facility] Comment on above: Performed By: #### 2 486852, 1241367, 22398869, 008772361, 8439028, 6476096, 7524347 ####[facility] [address] [place] [address] Glucose [Mass/Vol] 259 mg/dL High 55-199 [facility] Comment on above: Performed By: #### 2 816139, 5935322, 87011128, 602181464, 1001924, 7277055, 5575302 ####[facility] [address] [place] [address] Potassium [Moles/Vol] 4.0 mmol/L Normal 3.5-5.3 [facility] Comment on above: Performed By: #### 2 223347, 3229460, 58039183, 694096346, 9641693, 4244436, 7135037 ####[facility] [address] [place] [address] Sodium [Moles/Vol] 137 mmol/L Normal 135-145 [facility] Comment on above: Performed By: #### 2 391577, 9037211, 73396618, 614105217, 6291112, 9120182, 5778789 ####[facility] [address] [place] [address] Urea nitrogen [Mass/Vol] 33 mg/dL High 5-21 [facility] Comment on above: Performed By: #### 2 629433, 3204455, 08987413, 438789394, 9268192, 6488946, 2189334 ####[facility] [address] [place] [address] Urea nitrogen/Creatinine [Mass ratio] 16 No Units Normal 10-20 [facility] Comment on above: Performed By: #### 2 819162, 0513844, 50899194, 713305373, 7633521, 9349860, 6454053 ####[address] [place] [address] BOHBon 12-26-2023 Beta HB Qnt 0.10 mmol/L Normal 0.02-0.27 [facility] Comment on above: Performed By: #### 2 097777, 2159691, 35507791, 829198988, 4703670, 2785306, 6616375 ####[address] [place] [address] Discharge Instructionson Discharge Instructions [id number] Normal [facility] ED Clinical Summaryon 2023 ED Clinical Summary (Inserted Image. Kendal ble to display) [address] [address] ED Clinical Summary Person Information Name: GUERRERO RAMOS/[place] Age: 43 Years : 1980 Sex: Female Language: Syrian PCP: ESCALANTE MD, JAYESH B Marital Status: Single Visit Id: Visit Reason: Nausea; Abdominal pain; ABD PAIN, MID BACK PAIN Speciality: Acuity: 3 Enc Type: Emergency Med Service: Emergency Arrival: 12/25/2023 22:43:16 Discharge: 12/26/2023 02:07:55 LOS: 000 03:24 Checkin: 12/25/2023 22:43:16 Checkout: 12/26/2023 02:07:55 Dispo Type: Home (Routine DC) EVENTS: Event Name Event Status Request Date/Time Start Date/Time Complete Date/Time Arrive Complete 12/25/2023 22:43:16 12/25/2023 22:43:16 12/25/2023 22:43:16 Document Home Meds Request 12/25/2023 22:43:16 Triage Complete 12/25/2023 22:43:16 12/25/2023 22:51:48 12/25/2023 22:51:48 Registration Complete 12/25/2023 22:47:03 12/25/2023 22:47:03 12/25/2023 22:47:03 Reg Complete Request 12/25/2023 22:47:03 Reg Bed Request Complete 12/25/2023 22:47:03 12/25/2023 22:47:03 12/25/2023 22:47:03 Bed Assign Complete 12/25/2023 22:52:02 12/25/2023 22:52:02 12/25/2023 22:52:02 Dr Exam Complete 12/25/2023 22:52:02 12/25/2023 23:46:55 12/25/2023 23:46:55 RN Exam Complete 12/25/2023 22:52:02 12/26/2023 00:54:51 12/26/2023 00:54:51 Pending Labs Complete 12/25/2023 23:45:35 12/26/2023 00:05:38 Lab Complete 12/25/2023 23:45:35 12/26/2023 00:05:38 Meds Admin Complete 12/25/2023 23:46:24 12/25/2023 23:49:42 Registration Request 12/25/2023 23:46:55 Pending Labs Complete 12/25/2023 23:53:49 12/25/2023 23:53:49 12/26/2023 00:05:38 Lab Complete 12/25/2023 23:53:49 12/25/2023 23:53:49 12/26/2023 00:05:38 Meds Admin Complete 12/25/2023 23:55:14 12/26/2023 00:05:37 Pending Labs Request 12/25/2023 23:55:14 Lab Request 12/25/2023 23:55:14 Urine Collect Request 12/25/2023 23:55:14 Pending Labs Complete 12/26/2023 00:02:26 12/26/2023 00:02:26 12/26/2023 00:18:22 Lab Complete 12/26/2023 00:02:26 12/26/2023 00:02:26 12/26/2023 00:18:09 Meds Admin Request 12/26/2023 01:41:09 Discharge Complete 12/26/2023 01:55:39 12/26/2023 02:08:06 12/26/2023 02:08:06 Transfer Complete 12/26/2023 02:08:06 12/26/2023 02:08:06 12/26/2023 02:08:06 ADDRESS: [address] [place] [id number] PHYS DOC NOTES: MEDICAL INFORMATION: Prescriptions Given: New Medications [facility] [address] [id number], [phone] dicyclomine (dicyclomine 20 mg Tab) 1 Tablets By Mouth 4 times a day. Refills: 0. famotidine (Pepcid 20 mg Tab) 1 Tablets By Mouth 2 times a day. Refills: 0. Medications to Continue Taking That Have Changed [facility] [address] [phone], [phone] START: ondansetron (Zofran ODT 4 mg Tab-Dis) 1 Tablets By Mouth every 8 hours. Refills: 0. START: promethazine (promethazine 25 mg Tab) 1 Tablets By Mouth every 4 hours as needed for nausea/vomiting. Refills: 0. Other Medications START: ondansetron (Zofran 4 mg Tab) 1 Tablets By Mouth every 8 hours as needed Nausea/Vomiting. Refills: 0. START: ondansetron (Zofran ODT 4 mg Tab-Dis) 1 Tablets By Mouth every 8 hours as needed Nausea/Vomiting. Refills: 0. START: ondansetron (Zofran ODT 4 mg Tab-Dis) 1 Tablets By Mouth 3 times a day. Refills: 0. START: ondansetron (Zofran ODT 4 mg Tab-Dis) 1 Tablets By Mouth every 8 hours. Refills: 0. START: promethazine (promethazine 12.5 mg oral tablet) 1 Tablets By Mouth every 4 hours. Refills: 0. Medications to Continue with No Changes Other Medications alprazolam (alprazolam 0.5 mg Tab) 1 Tablets By Mouth 3 times a day as needed for anxiety. ergocalciferol (ergocalciferol 50,000 intl units Cap) meclizine (meclizine 25 mg Tab) rosuvastatin (rosuvastatin 20 mg Tab) semaglutide (Ozempic (1 mg dose) 4 mg/3 mL subcutaneous solution) sertraline (sertraline 50 mg Tab) tramadol (traMADOL 50 mg Tab) trazodone (traZODONE 100 mg Tab) PATIENT EDUCATION INFORMATION: Instructions: Nausea, Adult; Abdominal Pain, Adult, Zivt-pl-Ebyv Follow up: With: Address: When: JAYESH ESCALANTE [address] [place] [address] Business (1) Within 1 to 2 days DIAGNOSIS: 1:Right upper quadrant abdominal pain; 2:Nausea in adult Normal [facility] ED Note-Physicianon 12-26-19 ED Note-Physician Basic Information Time Seen: Manuel Shaikh MD 12/25/2023 23:46 Chief Complaint abd pain for a couple days. nausea. denies vomiting or fever. History of Present Illness 43-year-old female presents with a complaint of right upper quadrant abdominal pain and nausea. Patient states that the pain started about 3 days ago and the nausea shortly thereafter. There has been no vomiting but her appetite is diminished. She states that she is still having bowel movements but has to strain to some degree. She states that the pain is located at her ventral hernia. The ventral hernia was postsurgical when she had colon resection for colon cancer about 10 years ago. Her only other abdominal surgery was a cholecystectomy. There are no plans to operate on her hernia. Patient is a diabetic. She has renal disease. She denies heart disease. There is no complaint of any dysuria here. Patient states that she does have nausea medicine at home and it has not helped. Review of Systems A 10 point review of systems is negative except as noted above. Medical and Surgical History: Reviewed and noted Social history: Lives at home Tobacco: Denies Physical Exam Vitals & Measurements T: 36.8 ?C(Oral) HR: 72(Monitored) RR: 16 BP: 120/87 SpO2: 96% HT: 164 cm WT: 158.7 kg BMI: 59.01 This is a pleasant morbidly obese 43-year-old female she is alert and oriented skin is warm and dry color is pink on room air. Heart sounds are somewhat distant but regular. Breath sounds again somewhat diminished but equal left and right without adventitious sounds. There is no respiratory guarding. The abdomen is obese there is a palpable hernia in the right upper quadrant that appears to be soft mildly tender but without induration it does not appear to be incarcerated. The remainder the abdomen is relatively nontender. Medical Decision Making Patient's laboratory studies are at baseline. I reviewed her chart from December 07 with similar complaints at that time. Patient had a CT abdomen and pelvis did not show any evidence of obstruction. Patient is feeling better here we will continue hydration and then consider discharge on Bentyl Zofran and or Phenergan. Patient feels much improved and successfully passed a fluid challenge. Assessment/Plan 1. Right upper quadrant abdominal pain (R10.11: Right upper quadrant pain) 2. Nausea in adult (R11.0: Nausea) Orders: dicyclomine, 20 mg = 2 mL, Injection, IntraMuscular, Once, Stop date 12/25/23 23:54:00 EST, STAT, Start date 12/25/23 23:54:00 EST, 12/25/23 23:54:00 EST dicyclomine, 20 mg = 1 tab(s), Oral, QID, # 12 tab(s), Refills(s) 0, Pharmacy: [facility], 164, cm, 12/25/23 22:51:00 EST, Height/Length Dosing, 158.7, kg, 12/25/23 22:51:00 EST, Weight Dosing famotidine, 20 mg = 2 mL, Soln-IV, IV Push, Once, Stop date 12/25/23 23:54:00 EST, STAT, Start date 12/25/23 23:54:00 EST, 12/25/23 23:54:00 EST famotidine, 20 mg = 1 tab(s), Oral, BID, # 15 tab(s), Refills(s) 0, Pharmacy: [facility], 164, cm, 12/25/23 22:51:00 EST, Height/Length Dosing, 158.7, kg, 12/25/23 22:51:00 EST, Weight Dosing ondansetron, 4 mg = 1 tab(s), Oral, q8hr, # 10 tab(s), Refills(s) 0, Pharmacy: [facility], 164, cm, 12/25/23 22:51:00 EST, Height/Length Dosing, 158.7, kg, 12/25/23 22:51:00 EST, Weight Dosing ondansetron, 4 mg = 2 mL, Injection, IV Push, Once, Stop date 12/25/23 23:46:00 EST, STAT, Start date 12/25/23 23:46:00 EST, 12/25/23 23:46:00 EST promethazine, 25 mg = 1 tab(s), Oral, q4hr, PRN for nausea/vomiting, # 10 tab(s), Refills(s) 0, Pharmacy: [facility], 164, cm, 12/25/23 22:51:00 EST, Height/Length Dosing, 158.7, kg, 12/25/23 22:51:00 EST, Weight Dosing promethazine, 25 mg = 1 tab(s), Tab, Oral, q4hr PRN Nausea, STAT, Start date 12/26/23 1:40:00 EST, 12/26/23 1:40:00 EST Sodium Chloride 0.9% intravenous solution, 1,000 mL, Soln-IV, IV, Once, Stop date 12/25/23 23:54:00 EST, STAT, Start date 12/25/23 23:54:00 EST, Infuse over 61, minute(s) Amylase Level Basic Metabolic Panel Beta-hydroxybutyrate CBC w/ Auto Diff eGFR Hepatic Function Panel Lipase Level UA With Cult Reflex Medications Administered Given dicyclomine 10 mg/mL Inj, 20 mg, IntraMuscular famotidine 10 mg/mL IV Lisa, 20 mg, IV Push NS 1000 ml Bolus, 1000 mL, IV Zofran 4 mg/2 mL Injection, 4 mg, IV Push Disposition Plan Patient Discharge Condition Improved Discharge Disposition Home Discharge Prescription List Prescriptions dicyclomine 20 mg Tab, 20 mg= 1 tab(s), Oral, QID Pepcid 20 mg Tab, 20 mg= 1 tab(s), Oral, BID promethazine 25 mg Tab, 25 mg= 1 tab(s), Oral, q4hr, PRN Zofran ODT 4 mg Tab-Dis, 4 mg= 1 tab(s), Oral, q8hr Follow-up With When Contact Information JAYESH JOLIE Within 1 to 2 days [address] [place] [address] [facility] (1) Additional Instructions: Patient Education Nausea, Adult Abdominal Pain, Adult, Ppos-cx-Uecr Problem List/Past Medical History Ongoing Abdominal pain (more content not included)... Normal [facility] Comment on above: Result Comment: Elec tronically Signed By: Neel GUZMAN, Manuel\.br\Date and Time Signed: 12/26/23 01:56 EST ED Patient Education Noteon 12-26-2023 ED Patient Education Note Gastroenterology Nausea, Adult Nausea is the feeling of having an upset stomach or that you are about to vomit. Nausea on its own is not usually a serious concern, but it may be an early sign of a more serious medical problem. As nausea gets worse, it can lead to vomiting. If vomiting develops, or if you are not able to drink enough fluids, you are at risk of becoming dehydrated. Dehydration can make you tired and thirsty, cause you to have a dry mouth, and decrease how often you urinate. Older adults and people with other diseases or a weak disease-fighting system (immune system) are at higher risk for dehydration. The main goals of treating your nausea are: ? To relieve your nausea. ? To limit repeated nausea episodes. ? To prevent vomiting and dehydration. Follow these instructions at home: Watch your symptoms for any changes. Tell your health care provider about them. Eating and drinking ? Take an oral rehydration solution (ORS). This is a drink that is sold at pharmacies and retail stores. ? Drink clear fluids slowly and in small amounts as you are able. Clear fluids include water, ice chips, low-calorie sports drinks, and fruit juice that has water added (diluted fruit juice). ? Eat bland, stlv-ml-pruuhl foods in small amounts as you are able. These foods include bananas, applesauce, rice, lean meats, toast, and crackers. ? Avoid drinking fluids that contain a lot of sugar or caffeine, such as energy drinks, sports drinks, and soda. ? Avoid alcohol. ? Avoid spicy or fatty foods. General instructions ? Take qcza-fzr-hantawz and prescription medicines only as told by your health care provider. ? Rest at home while you recover. ? Drink enough fluid to keep your urine pale yellow. ? Breathe slowly and deeply when you feel nauseous. ? Avoid smelling things that have strong odors. ? Wash your hands often using soap and water for at least 20 seconds. If soap and water are not available, use hand nurse infection control. ? Make sure that everyone in your household washes their hands well and often. ? Keep all follow-up visits. This is important. Contact a health care provider if: ? Your nausea gets worse. ? Your nausea does not go away after two days. ? You vomit multiple times. ? You cannot drink fluids without vomiting. ? You have any of the following: ? New symptoms. ? A fever. ? A headache. ? Muscle cramps. ? A rash. ? Pain while urinating. ? You feel light-headed or dizzy. Get help right away if: ? You have pain in your chest, neck, arm, or jaw. ? You feel extremely weak or you faint. ? You have vomit that is bright red or looks like coffee grounds. ? You have bloody or black stools (feces) or stools that look like tar. ? You have a severe headache, a stiff neck, or both. ? You have severe pain, cramping, or bloating in your abdomen. ? You have difficulty breathing or are breathing very quickly. ? Your heart is beating very quickly. ? Your skin feels cold and clammy. ? You feel confused. ? You have signs of dehydration, such as: ? Dark urine, very little urine, or no urine. ? Cracked lips. ? Dry mouth. ? Sunken eyes. ? Sleepiness. ? Weakness. These symptoms may be an emergency. Get help right away. Call 911. ? Do not wait to see if the symptoms will go away. ? Do not drive yourself to the hospital. Summary ? Nausea is the feeling that you have an upset stomach or that you are about to vomit. Nausea on its own is not usually a serious concern, but it may be an early sign of a more serious medical problem. ? If vomiting develops, or if you are not able to drink enough fluids, you are at risk of becoming dehydrated. ? Follow recommendations for eating and drinking and take oetj-beb-sujliaw and prescription medicines only as told by your health care provider. ? Contact a health care provider right away if your symptoms worsen or you have new symptoms. ? Keep all follow-up visits. This is important. This information is not intended to replace advice given to you by your health care provider. Make sure you discuss any questions you have with your health care provider. Document Revised: 04/21/2022 Document Reviewed: 04/21/2022 [employer] Patient Education ? 2022 [employer] Abdominal Pain, Adult Many things can cause belly (abdominal) pain. Most times, belly pain is not dangerous. Many cases of belly pain can be watched and treated at home. Sometimes, though, belly pain is serious. Your doctor will try to find the cause of your belly pain. Follow these instructions at home: Medicines ? Take joec-phu-zrykeaz and prescription medicines only as told by your doctor. ? Do not take medicines that help you poop (laxatives) unless told by your doctor. General instructions ? Watch your belly pain for any changes. ? Drink enough fluid to keep your pee (urine) pale yellow. ? (more content not included)... Normal [facility] ED Patient Summaryon 024 ED Patient Summary (Inserted Image. Ekndal ble to display) [address] [address] Patient Discharge Instructions Person Information Name: GUERRERO RAMOS Age: 43 Years Arrival Date: 12/25/2023 22:43:16 Discharge Diagnosis: 1:Right upper quadrant abdominal pain; 2:Nausea in adult Primary Care Physician: JYAESH ESCALANTE MD Provider Information Primary Provider: Manuel Shaikh MD Advanced Office Cashier:None The exam and treatment you received in the Emergency Department were for an urgent problem and are not intended as complete care. It is important that you follow up with a doctor, nurse practitioner, or physician?s surgical assistant certified for ongoing care. If your symptoms become worse or you do not improve as expected and you are unable to reach your usual health care provider, you should return to the Emergency Department. We are available 24 hours a day. GUERRERO RAMOS has been given the following list of patient education materials, prescriptions and follow-up instructions: Follow-up Instructions: With: Address: When: JAYESH ESCALANTE [address] [place] [address] [facility] (1) Within 1 to 2 days In the event that this physician does not participate in your insurance network, please consult with your insurance company to find a nearby participating provider. Patient Education Materials: Nausea, Adult; Abdominal Pain, Adult, Gxom-il-Rtpj A MESSAGE TO ALL PATIENTS REGARDING OPIOIDS PRESCRIPTION OPIOIDS: WHAT YOU NEED TO KNOW Prescription opioids can be used to help relieve uevnmhec-kl-kqhpau pain and are often prescribed following a surgery or injury, or for certain health conditions. These medications can be an important part of the treatment but also come with serious risks. It is important to work with your healthcare provider to make sure you are getting the safest, most effective care. WHAT ARE THE RISKS AND SIDE EFFECTS OF OPIOID USE? Prescription opioids carry serious risks of addiction and overdose, especially with prolonged use. An opioid overdose, often marked by slowed breathing, can cause sudden . The use of prescription opioids can have a number of side effects as well, even when taken as directed: ? Tolerance?meaning you might need to take more of the medication for the same pain relief ? Physical dependence?meaning you have symptoms of withdrawal when a medication is stopped ? Increased sensitivity to pain ? Constipation ? Nausea, vomiting, and dry mouth ? Sleepiness and dizziness ? Confusion ? Depression ? Low levels of testosterone that can result in lower sex drive, energy, and strength ? Itching and sweating RISKS ARE GREATER WITH: ? History of drug misuse, substance use disorder, or overdose ? Mental health conditions (such as depression or anxiety) ? Sleep apnea ? Older age (65 years and older) ? Avoid alcohol while taking prescription opioids. Also, unless specifically advised by your health care provider, medications to avoid include: ? Benzodiazepines (such as Xanax or Valium) ? Muscle relaxants (such as Soma or Flexeril) ? Hypnotics (such as Ambien or Lunesta) ? Other prescription opioids KNOW YOUR OPTIONS Talk to your health care provider about ways to manage your pain that don?t involve prescription opioids. Some of these options may actually work better and have fewer risks and side effects. Options may include: ? Pain relievers such as acetaminophen, ibuprofen, and naproxen ? Some medication that are also used for depression or seizures ? Physical therapy and exercise ? Cognitive behavioral therapy, a psychological, goal-directed approach, in which patients learn how to modify physical, behavioral, and emotional triggers of pain and stress. IF YOU ARE PRESCRIBED OPIOIDS FOR PAIN: ? Never take opioids in greater amounts or more often than prescribed. ? Follow up with your primary health care provider. o Work together to create a plan on how to manage your pain. o Talk about ways to help manage your pain that don?t involve prescription opioids. o Talk about any and all concerns and side effects. ? Help prevent misuse and abuse o Never sell or share prescription opioids. o Never use another person?s prescription opioids. ? Store prescription opioids in a secure place and out of reach of others (this may include visitors, children, friends, and family). ? Safely dispose of unused prescription opioids: Find your community drug take-back program or your pharmacy mail-back program, or flush them down the toilet, following guidance from the Food and Drug Administration (www.fda.gov/Drugs/Resour cesForYou). ? Visit www.cdc.gov/drugoverdose to learn about the risks of opioids abuse and overdose. ? If you believe you may be struggling with addiction, tell your health healthcare network consultant and ask for guidance or call SAMHSA?S National Helpline at 1 (more content not included)... Normal [facility] Hep Func Panelon 12-26-2023 Albumin [Mass/Vol] 3.7 g/dL Normal 3.3-5.0 [facility] Comment on above: Performed By: #### 2 731946, 8443505, 90695145, 833531206, 8773494, 6214263, 2219493 ####[facility] [address] [place] [address] Albumin/Globulin (S) [Mass conc ratio] 1.1 Normal 1.1-2.2 [facility] Comment on above: Performed By: #### 2 396065, 6146329, 04778275, 034043036, 7237359, 8124720, 6686799 ####[address] [place] [address] ALP [Catalytic activity/Vol] 64 Int._Unit/L Normal 21-98 [facility] Comment on above: Performed By: #### 2 547088, 0697545, 31084084, 579526783, 4567602, 4018017, 6242218 ####[address] [address] ALT No additional P-5'-P [Catalytic activity/Vol] 44 Int._Unit/L Normal 6-46 [facility] Comment on above: Performed By: #### 2 906289, 3201023, 99174279, 713997615, 7789192, 9630435, 7442304 ####[address] [place] [address] AST [Catalytic activity/Vol] 42 Int._Unit/L Normal 5-43 [facility] Comment on above: Performed By: #### 2 060510, 9643225, 06297752, 941534835, 9218997, 8017137, 5045867 ####[address] [place] [address] Bili Direct 0.1 mg/dL Normal 0.0-0.4 [facility] Comment on above: Performed By: #### 2 954777, 8668721, 47028058, 150995775, 0139348, 7435807, 5901228 ####[facility] [address] [place] [address] Bili Indirect 0.3 mg/dL Normal 0.1-0.[address] [facility] Comment on above: Performed By: #### 2 530136, 6794349, 99826524, 129847909, 9681543, 8854559, 2665628 ####[facility] [address] [place] [address] Bilirubin [Mass/Vol] 0.4 mg/dL Normal 0.0-1.1 [facility] Comment on above: Performed By: #### 2 348766, 0892925, 27991861, 511274880, 3831315, 6743244, 6376671 ####[facility] [address] [place] [address] Globulin (S) [Mass/Vol] 3.3 g/dL Normal 1.4-4.0 [facility] Comment on above: Performed By: #### 2 660424, 5673693, 19640860, 653283724, 4021197, 2232210, 9206862 ####[facility] [address] [place] [address] Protein [Mass/Vol] 7.0 g/dL Normal 6.0-7.8 [facility] Comment on above: Performed By: #### 2 320200, 4953472, 26465263, 567033333, 6201401, 8424193, 7945312 ####[facility] [address] [place] [address] Lipase Levelon 12-26-2023 Lipase Lvl 18 unit/L Normal 13-58 [facility] Comment on above: Performed By: #### 2 834862, 2384884, 15358383, 173765273, 6967912, 9576567, 5126810 ####[facility] [address] [place] [address] eGFRon 12-26-2023 eGFR 29 mL/min/1.73 m2 Low >=59 [facility] Comment on above: Order Comment: Order added by Discern Expert. Performed By: #### 2 744369, 5169697, 24071918, 954170669, 1887522, 7831364, 5692260 ####[address] [address] CBC w/ Auto Diffon 4 Basophils/100 WBC (Bld) 0.4 % Normal 0.0-2.0 [facility] Comment on above: Performed By: #### 2 770913, 5430660, 74134692, 912379935, 6273132, 6020748, 0632651 ####[address] [address] Basophils/Leukocytes Auto (Bld) [Pure # fraction] 0.0 E9/L Normal 0.0-0.2 [facility] Comment on above: Performed By: #### 2 068420, 3162978, 34934808, 575701853, 4408292, 2379923, 8836856 ####[address] [address] Eosinophils (Bld) [#/Vol] 0.3 E9/L Normal 0.0-0.5 [facility] Comment on above: Performed By: #### 2 697374, 7863841, 26482217, 513826292, 8253453, 6677581, 4514151 ####[address] [address] Eosinophils/100 WBC (Bld) 4.9 % Normal 0.0-8.0 [facility] Comment on above: Performed By: #### 2 398016, 4792492, 08997897, 326251589, 2292812, 8968576, 0046779 ####[address] [address] Erythrocyte distribution width (RBC) [Ratio] 15.1 % High 10.9-14.2 [facility] Comment on above: Performed By: #### 2 527911, 8708294, 27548098, 754338664, 7889320, 1061533, 7208706 ####[address] [place] [address] Hematocrit (Bld) [Volume fraction] 37.1 % Normal 34.0-46.0 [facility] Comment on above: Performed By: #### 2 491027, 1051522, 93681996, 421891178, 9831602, 8610622, 0561704 ####[address] [address] Hemoglobin (Bld) [Mass/Vol] 12.3 g/dL Normal 12.0-16.0 [facility] Comment on above: Performed By: #### 2 120303, 3251023, 91625815, 527310181, 4792769, 0879591, 4718659 ####[address] [address] Lymphocytes (Bld) [#/Vol] 1.2 E9/L Normal 1.0-4.0 [facility] Comment on above: Performed By: #### 2 249283, 1319530, 75366355, 279467587, 8988770, 4491797, 4620085 ####[address] [address] Lymphocytes/100 WBC (Bld) 20.8 % Normal 14.0-50.0 [facility] Comment on above: Performed By: #### 2 821567, 9528784, 21621843, 114073500, 6174539, 6429076, 3283434 ####[address] [address] MCH (RBC) [Entitic mass] 26.2 pg Low 27.0-34.0 [facility] Comment on above: Performed By: #### 2 945984, 2701879, 20761162, 730233631, 6942991, 9109507, 3733779 ####[address] [address] MCHC (RBC) [Mass/Vol] 33.1 g/dL Normal 31.4-36.0 [facility] Comment on above: Performed By: #### 2 508962, 5810552, 31704764, 206582072, 0033027, 9933678, 1919124 ####[facility] [address] [place] [address] MCV (RBC) [Entitic vol] 79.0 fL Low 80.0-100.0 [facility] Comment on above: Performed By: #### 2 354657, 8314211, 35458043, 528723814, 2600199, 2242577, 5858773 ####[address] [address] Monocytes (Bld) [#/Vol] 0.4 E9/L Normal 0.2-1.0 [facility] Comment on above: Performed By: #### 2 306459, 2707618, 77659626, 977888928, 2978662, 0353698, 6154229 ####[address] [address] Neutro Absolute 4.0 E9/L Normal 2.0-7.5 [facility] Comment on above: Performed By: #### 2 365813, 4236911, 52537549, 411069221, 2143442, 0515649, 4101106 ####[address] [address] Neutro Auto 67.5 % Normal 36.0-75.0 [facility] Comment on above: Performed By: #### 2 324265, 9291218, 73704907, 697225386, 0010757, 6172510, 0881219 ####[address] [place] [address] Platelet 192.0 E9/L Normal 150.0-500. 0 [facility] Comment on above: Performed By: #### 2 596745, 3720410, 67788099, 354393438, 5195173, 3182306, 3440654 ####[facility] [address] [place] [address] Platelet mean volume (Bld) [Entitic vol] 7.4 fL Normal 6.4-10.8 [facility] Comment on above: Performed By: #### 2 988366, 0642322, 10116673, 606213329, 8960989, 5534290, 0180980 ####[facility] [address] [place] [address] RBC 4.7 E12/L Normal 4.3-5.9 [facility] Comment on above: Performed By: #### 2 309227, 8670657, 20250234, 324681494, 4338336, 1922135, 7878412 ####[facility] [address] [place] [address] WBC 5.9 E9/L Normal 4.0-11.0 [facility] Comment on above: Performed By: #### 2 235544, 1918186, 34592638, 213218353, 3644463, 2303969, 4493105 ####[facility] [address] [place] [address] CHEMISTRYOrdered By: SYSTEM SYSTEM on 12-25-2023 Albumin [Mass/Vol] 3.7 g/dL Normal 3.3 - 5.0 gm/dL Remisol Chem Albumin/Globulin [Mass ratio] 1.1 {ratio} Normal 1.1 - 2.2 [facility] ALP [Catalytic activity/Vol] 64 [iU]/d Normal 21 - 98 Int._Unit/ L Rem[facility] Chem ALT No additional P-5'-P [Catalytic activity/Vol] 44 [iU]/d Normal 6 - 46 Int._Unit/ L [facility] Amylase [Catalytic activity/Vol] 27 U/L Normal 25 - 157 unit/L [facility] Anion gap [Moles/Vol] 12 mmol/L Normal 6 - 16 mEq/L [facility] AST [Catalytic activity/Vol] 42 [iU]/d Normal 5 - 43 Int._Unit/ L [facility] Beta HB Qnt 0.10 mmol/L Normal 0.02 - 0.27 mmol/L [facility] Bili Direct 0.1 mg/dL Normal 0.0 - 0.4 mg/dL [facility] Bili Indirect 0.3 mg/dL Normal 0.1 - 0.9 mg/dL [facility] Bilirubin [Mass/Vol] 0.4 mg/dL Normal 0.0 - 1 .1 mg/dL [facility] Calcium [Mass/Vol] 9.1 mg/dL Normal 8.9 - 11. 1 mg/dL [facility] Chloride [Moles/Vol] 102 mmol/L Normal 101 - 1 11 mmol/L [facility] CO2 [Moles/Vol] 27 mmol/L Normal 21 - 31 mmol/L [facility] Creatinine [Mass/Vol] 2.1 mg/dL High 0.5 - 1.3 mg/dL [facility] eGFR 29 mL/min/1.73 m2 Low >=59mL/min /1.73 m2 [facility] Globulin (S) [Mass/Vol] 3.3 g/dL Normal 1.4 - 4.0 gm/dL [facility] Glucose [Mass/Vol] 259 mg/dL High 55 - 199 mg/dL [facility] Lipase Lvl 18 unit/L Normal 13 - 58 unit/L [facility] Potassium [Moles/Vol] 4.0 mmol/L Normal 3.5 - 5.3 mmol/L [facility] Protein [Mass/Vol] 7.0 g/dL Normal 6.0 - 7.8 gm/dL [facility] Sodium [Moles/Vol] 137 mmol/L Normal 135 - 145 mmol/L [facility] Urea nitrogen [Mass/Vol] 33 mg/dL High 5 - 21 mg/dL [facility] Urea nitrogen/Creatinine [Mass ratio] 16 mg/mg Normal 10 - 20 Rem[facility] Chem Consent for Treatmenton 11-30 Consent for Treatment [id number] Normal [facility] HEMATOLOGYOrdered By: SYSTEM SYSTEM on 12-25-2023 Basophils/100 WBC (Bld) 0.4 % Normal 0.0 - 2.0 % Remisol Heme Basophils/Leukocytes Auto (Bld) [Pure # fraction] 0.0 E9/L Normal 0.0 - 0.2 E9/L Remisol Heme Eosinophils (Bld) [#/Vol] 0.3 E9/L Normal 0.0 - 0.5 E9/L Remisol Heme Eosinophils/100 WBC (Bld) 4.9 % Normal 0.0 - 8.0 % Remisol Heme Erythrocyte distribution width (RBC) [Ratio] 15.1 % High 10.9 - 14.2 % Rem[facility] Heme Hematocrit (Bld) [Volume fraction] 37.1 % Normal 34.0 - 46.0 % Rem[facility] Heme Hemoglobin (Bld) [Mass/Vol] 12.3 g/dL Normal 12.0 - 16.0 gm/dL Remisol Heme Lymphocytes (Bld) [#/Vol] 1.2 E9/L Normal 1.0 - 4.0 E9/L Rem[facility] Heme Lymphocytes/100 WBC (Bld) 20.8 % Normal 14.0 - 50.0 % Remisol Heme MCH (RBC) [Entitic mass] 26.2 pg Low 27.0 - 34.0 pg Remisol Heme MCHC (RBC) [Mass/Vol] 33.1 g/dL Normal 31.4 - 36.0 gm/dL Remisol Heme MCV (RBC) [Entitic vol] 79.0 fL Low 80.0 - 100.0 fL Rem[facility] Heme Monocytes (Bld) [#/Vol] 0.4 E9/L Normal 0.2 - 1.0 E9/L Rem[facility] Heme Monocytes/100 WBC (Bld) 6.4 % Normal 4.0 - 14.0 % Rem[facility] Heme Neutro Absolute 4.0 E9/L Normal 2.0 - 7.5 E9/L Remisol Heme Neutro Auto 67.5 % Normal 36.0 - 75.0 % Rem[facility] Heme Platelet 192.0 E9/L Normal 150.0 - 500.0 E9/L Remisol Heme Platelet mean volume (Bld) [Entitic vol] 7.4 fL Normal 6.4 - 10.8 fL Remisol Heme RBC 4.7 E12/L Normal 4.3 - 5.9 E12/L Remisol Heme WBC 5.9 E9/L Normal 4.0 - 11.0 E9/L Remisol Heme C Urineon 12-09-2023 Bacteria identified Cx Nom (U) Microbiology PROCEDURE: Urine Culture [R1] SOURCE: U CleanCatch BODY SITE: COLLECTED DATE/TIME: 12/07/2023 00:00 EST RECEIVED DATE/TIME: 12/07/2023 00:52 EST START DATE/TIME: 12/07/2023 00:52 EST FREE TEXT SOURCE: Thomas Ferrera DO, DO, Kaylinn A FINAL REPORTS Final Report [] Verified Date/Time: 12/09/2023 09:56 EST <10,000 cfu/ml Mixed skin contaminants Performing Locations R1: This test was performed at: [facility], [address] [place] [address], [address] [place] [address], [facility] Comment on above: Performed By: #### 2 010765, [id number] ####[facility] [address] [place] [address] ED Note-Physicianon 12-08-19 ED Note-Physician Basic Information Time Seen: Vidya Macario PA-C 12/07/2023 15:55 Chief Complaint Pt reports she feels like she is going to pass out. She reports it happened yest and she was evaluated in ED overnight but s/s have not subsided. Denies chest pain/SOB/blurry vision/speech changes. History of Present Illness This patient presents emergency department chief complaint of feeling like she is in a pass out. She states she was evaluated here in the ER last night. She states that today the symptoms returned again. The patient is a diabetic. She states her blood sugars have been running high. She denies any fevers chills or sweats. She denies any nausea or vomiting. She denies any urinary or bowel complaints. She denies any chest pain or shortness of breath. The patient does not smoke, drink alcohol, or use any street drugs. She lives with her parents. Review of Systems Constitutional: Denies weight loss, fevers, chills, sweats, malaise Eyes: Denies visual changes, eye pain, double vision, scotomas, floaters ENT: Denies runny nose, epistaxis, sinus pain, ear pain, ringing in ears, tooth ache, sore throat, pain with swallowing Cardiovascular: Denies chest pain, shortness of breath, orthopnea, edema, palpitations, loss of consciousness, claudication Respiratory: Denies cough, sputum production, wheezing, hemoptysis, shortness of breath, dyspnea on exertion Gastrointestinal: Denies abdominal pain, unintentional weight loss, difficulty swallowing, indigestion, bloating, cramping, loss of appetite, nausea, vomiting, diarrhea, constipation, hematochezia, melena Genitourinary: Denies any incontinence of urine, dysuria, hematuria, nocturia, polyuria, hesitancy, frequency, urgency, burning Musculoskeletal: Denies joint pain, morning stiffness, joint swelling, decreased range of motion, crepitus Integumentary: Denies any pruritus, rashes, lesions, wounds, petechiae Neurologic: Denies any changes in sight, smell, hearing, taste, seizures, headache, paresthesia, numbness, weakness, balance disturbance Psychiatric denies any depression, change in sleep patterns, anxiety, difficulty concentrating, paranoia, anhedonia, lack of energy, sophia Hematologic/lymphatic: Denies any purpura, petechiae, excessive bleeding, bruising Physical Exam Vitals & Measurements T: 36.7 ?C(Oral) HR: 82(Monitored) RR: 16 BP: 157/94 SpO2: 97% HT: 165.1 cm WT: 150 kg BMI: 55.03 Vital signs and nursing notes reviewed. General: Awake, alert, NAD. Obese. HEENT: Head is normocephalic, atraumatic. PERRL. EOMI. Sclerae are anicteric. External ears are normal. TMs are intact bilaterally. Canals are clear bilaterally. Nares are patent bilaterally. Oral mucosa is pink and moist. No lesions noted. Tongue protrudes in midline. Uvula rises with phonation. Neck is supple, no no palpable adenopathy. No JVD. Trachea is midline. Thorax: Symmetrical rise and fall Lungs: Clear to auscultation throughout all osborn, no wheezes, no crackles Heart: Regular rate and rhythm. No murmur, gallop, or rub Abdomen: No tenderness on palpation. Bowel sounds are present active and normal. No organomegaly. No palpable masses. No CVA tenderness. Extremities: Motor sensory pulses intact x4 extremities. No lower extremity edema. Skin: No lesions, rashes, ulcerations. No bruising or petechiae. Color appropriate, warm and dry Neuro: No oriented x3, no focal neuro deficits Psych: Mood and affect are normal Medical Decision Making MEDICAL DECISION MAKING Number and Complexity of Problems Differential Diagnosis: Dehydration, DKA, acute lower urinary tract infection, electrolyte imbalance MDM Data External documents reviewed: Not applicable My EKG interpretation: Noted in chart if applicable My CT interpretation: Noted in chart if applicable My X-ray interpretation: Noted in chart if applicable My Ultrasound interpretation: Not applicable Decision rules/scores evaluated: Noted in chart if applicable Discussed with not applicable: Treatment and Disposition ED Course: Patient was interviewed and examined. The appropriate ER workup was initiated. EKG was sinus rhythm rate 81, no STEMI white blood count 6.1, hemoglobin 13.2, hematocrit 41.0, platelets 261. Pro time 10.9, INR 1.0, PTT 34.2, troponin 3.40. Sodium 137, potassium 4.1, chloride 105, CO2 24, BUN 30, creatinine 2.0, glucose 226, calcium 8.9. Troponin 3.40. Patient was given a total of 2 L of normal saline wide open. UA was unremarkable for ketones, there was 3+ protein, trace blood. Repeat troponin at 3 hours 3.0, at 6-hour it was 2.80. Chest x-ray is no active lung disease. Discussed the results of the workup with the patient. The patient will be discharged home in stable condition. She is to follow-up with her primary care physician. She is to return to the emergency department for any further problems or concerns. Shared decision making: I discussed the discharge diagnosis and plan of care with the patient. She is in agreement with the p (more content not included)... Normal [facility] Comment on above: Result Comment: Elec tronically Signed By: Vidya Macario PA-C\.br\Date and Time Signed: 12/07/23 23:52 EST\.br\Electronically Co-Signed By: Fernando Espinoza DO\.tristen\Date and Time Co-Signed: 12/08/23 07:12 EST BMPon 12-07-2023 Anion gap [Moles/Vol] 12 mmol/L Normal 6-16 [facility] Comment on above: Performed By: #### 2 801917, 22709800, 7236882, 09104197, 37404500 ####[facility] [address] [place] [address] BUN/Creat Ratio 15 No Units Normal 10-20 [facility] Comment on above: Performed By: #### 2 832789, 54469027, 7096488, 75861280, 97120728 ####[facility] [address] [place] [address] Calcium [Mass/Vol] 8.9 mg/dL Normal 8.9-11.1 [facility] Comment on above: Performed By: #### 2 556047, 91912956, 4212968, 66321387, 38574952 ####[facility] [address] [place] [address] Chloride [Moles/Vol] 105 mmol/L Normal 101-111 [facility] Comment on above: Performed By: #### 2 441739, 88090697, 4437943, 15973813, 82465911 ####[facility] [address] [place] [address] CO2 [Moles/Vol] 24 mmol/L Normal 21-31 [facility] Comment on above: Performed By: #### 2 776597, 35555913, 3048970, 45057663, 57241379 ####[facility] [address] [place] [address] Creatinine [Mass/Vol] 2.0 mg/dL High 0.5-1.3 [facility] Comment on above: Performed By: #### 2 772486, 45589025, 9842528, 12655461, 77457699 ####[facility] [address] [place] [address] Glucose [Mass/Vol] 226 mg/dL High 55-199 [facility] Comment on above: Performed By: #### 2 726812, 73835911, 1290847, 43240040, 26659081 ####[facility] [address] [place] [address] Potassium [Moles/Vol] 4.1 mmol/L Normal 3.5-5.3 [facility] Comment on above: Performed By: #### 2 643857, 25898081, 8942967, 94363086, 45708316 ####[place] [address] [place] [address] Sodium [Moles/Vol] 137 mmol/L Normal 135-145 [facility] Comment on above: Performed By: #### 2 713106, 05096668, 3952288, 18876031, 30812856 ####[address] [address] Urea nitrogen [Mass/Vol] 30 mg/dL High 5-21 [facility] Comment on above: Performed By: #### 2 451819, 84348170, 5863800, 68771523, 83095041 ####[address] [address] BUN/Creat Ratio 15 No Units Normal 10-20 [facility] Comment on above: Performed By: #### 2 015450, 8196201, 5391493, 2084736, 83852359, 7261072 ####[address] [address] BMPOrdered By: SYSTEM SYSTEM on 12-07-2023 Anion gap [Moles/Vol] 13 mmol/L Normal 6-16 [facility] Comment on above: Performed By: #### 2 638356, 2624468, 6262764, 8741227, 11676618, 9835125 ####[address] [place] [address] Calcium [Mass/Vol] 9.5 mg/dL Normal 8.9-11.1 [facility] Comment on above: Performed By: #### 2 991588, 9102874, 4658772, 1788675, 16054680, 8168896 ####[address] [place] [address] Chloride [Moles/Vol] 98 mmol/L Low 101-111 [facility] Comment on above: Performed By: #### 2 527130, 2915943, 6685650, 4179046, 00478988, 3921458 ####[address] [address] CO2 [Moles/Vol] 25 mmol/L Normal 21-31 [facility] Comment on above: Performed By: #### 2 813250, 7902509, 1105892, 0294431, 85501249, 6108898 ####[address] [address] Creatinine [Mass/Vol] 2.1 mg/dL High 0.5-1.3 [facility] Comment on above: Performed By: #### 2 450714, 1441345, 4507160, 1643397, 51787216, 4743802 ####[address] [address] Glucose [Mass/Vol] 358 mg/dL High 55-199 [facility] Comment on above: Performed By: #### 2 635966, 6465652, 0027377, 2160163, 83428747, 4961298 ####[address] [address] Potassium [Moles/Vol] 4.1 mmol/L Normal 3.5-5.3 [facility] Comment on above: Performed By: #### 2 341775, 3222818, 2501667, 7436843, 66607394, 2659045 ####[facility] [address] [place] [address] Sodium [Moles/Vol] 132 mmol/L Low 135-145 [facility] Comment on above: Performed By: #### 2 527387, 7144694, 0301676, 0813873, 23023270, 7777182 ####[address] [address] Urea nitrogen [Mass/Vol] 32 mg/dL High 5-21 [facility] Comment on above: Performed By: #### 2 570887, 1796544, 5322110, 6946861, 64170927, 3687369 ####[facility] [address] [place] [address] CBC w/ Auto Diffon 4 Basophil Absolute 0.0 E9/L Normal 0.0-0.2 [facility] Comment on above: Performed By: #### 2 533786, 60168683, 1258049, 63931911, 18094372 ####[facility] [address] [place] [address] Basophils/100 WBC (Bld) 0.6 % Normal 0.0-2.0 [facility] Comment on above: Performed By: #### 2 610435, 89494709, 8419247, 46796866, 40128950 ####[address] [address] Eos Absolute 0.2 E9/L Normal 0.0-0.5 [facility] Comment on above: Performed By: #### 2 516948, 95821524, 9593852, 16177198, 47730961 ####[address] [address] Eosinophils/100 WBC (Bld) 3.6 % Normal 0.0-8.0 [facility] Comment on above: Performed By: #### 2 610110, 02134264, 4275861, 96348461, 27242908 ####[facility] [address] [place] [address] Erythrocyte distribution width (RBC) [Ratio] 15.4 % High 10.9-14.2 [facility] Comment on above: Performed By: #### 2 199422, 01900208, 7242741, 25927683, 12615076 ####[address] [place] [address] Hematocrit (Bld) [Volume fraction] 41.0 % Normal 34.0-46.0 [facility] Comment on above: Performed By: #### 2 557264, 51671362, 1730699, 53324140, 93042951 ####[facility] [address] [place] [address] Hemoglobin (Bld) [Mass/Vol] 13.2 g/dL Normal 12.0-16.0 [facility] Comment on above: Performed By: #### 2 598513, 21033762, 6859299, 20171593, 26110727 ####[facility] [address] [place] [address] Lymph Absolute 1.4 E9/L Normal 1.0-4.0 [facility] Comment on above: Performed By: #### 2 243630, 70158546, 3475752, 22705813, 92662007 ####[address] [address] Lymphocytes/100 WBC (Bld) 22.3 % Normal 14.0-50.0 [facility] Comment on above: Performed By: #### 2 837207, 81578023, 4569306, 68275251, 65420123 ####[facility] [address] [place] [address] MCH (RBC) [Entitic mass] 26.0 pg Low 27.0-34.0 [facility] Comment on above: Performed By: #### 2 653070, 49246354, 2205140, 06183981, 52627218 ####[facility] [address] [place] [address] MCHC (RBC) [Mass/Vol] 32.6 g/dL Normal 31.4-36.0 [facility] Comment on above: Performed By: #### 2 020868, 83653728, 2264187, 01954232, 12259444 ####[facility] [address] [place] [address] MCV (RBC) [Entitic vol] 79.8 fL Low 80.0-100.0 [facility] Comment on above: Performed By: #### 2 368300, 16968283, 3731369, 42920053, 83954427 ####[facility] [address] [place] [address] [place] Absolute 0.3 E9/L Normal 0.2-1.[address] [facility] Comment on above: Performed By: #### 2 061481, 05481866, 0682833, 48087593, 24674074 ####[facility] [address] [place] [address] Monocytes/100 WBC (Bld) 5.6 % Normal 4.0-14.0 [facility] Comment on above: Performed By: #### 2 110922, 07417996, 5214521, 65818625, 77802968 ####[address] [address] Neutro Absolute 4.2 E9/L Normal 2.0-7.5 [facility] Comment on above: Performed By: #### 2 040084, 85588096, 7042612, 88169805, 77807624 ####[facility] [address] [place] [address] Neutro Auto 67.9 % Normal 36.0-75.0 [facility] Comment on above: Performed By: #### 2 857859, 24739561, 8942982, 81929450, 57263549 ####[facility] [address] [place] [address] Platelet 261.0 E9/L Normal 150.0-500. 0 [facility] Comment on above: Performed By: #### 2 500575, 50450292, 4907426, 05098531, 60420662 ####[facility] [address] [place] [address] Platelet mean volume (Bld) [Entitic vol] 6.9 fL Normal 6.4-10.8 [facility] Comment on above: Performed By: #### 2 036375, 29342122, 1250482, 36405479, 19434234 ####[address] [address] RBC 5.1 E12/L Normal 4.3-5.9 [facility] Comment on above: Performed By: #### 2 639180, 25824433, 3253436, 86324148, 13155790 ####[address] [address] WBC 6.1 E9/L Normal 4.0-11.0 [facility] Comment on above: Performed By: #### 2 259639, 43093028, 3408717, 52270400, 22246267 ####[address] [address] CBC w/ Auto DiffOrdered By: SYSTEM SYSTEM on 12-07-2023 Basophil Absolute 0.1 E9/L Normal 0.0-0.2 [facility] Comment on above: Performed By: #### 2 449100, 1653028, 3780038, 6061142, 96335521, 0857488 ####[address] [address] Basophils/100 WBC (Bld) 0.8 % Normal 0.0-2.0 [facility] Comment on above: Performed By: #### 2 199144, 8032755, 4410432, 8875161, 96526491, 2920756 ####[address] [address] Eos Absolute 0.2 E9/L Normal 0.0-0.5 [facility] Comment on above: Performed By: #### 2 631553, 5028193, 8313252, 1645902, 02322262, 9774577 ####[address] [address] Eosinophils/100 WBC (Bld) 2.0 % Normal 0.0-8.0 [facility] Comment on above: Performed By: #### 2 270616, 8977980, 7130095, 0512386, 54171334, 9451487 ####[address] [address] Erythrocyte distribution width (RBC) [Ratio] 15.2 % High 10.9-14.2 [facility] Comment on above: Performed By: #### 2 866939, 5192880, 8484763, 7559266, 36772725, 4187800 ####[place] [address] Hematocrit (Bld) [Volume fraction] 41.0 % Normal 34.0-46.0 [facility] Comment on above: Performed By: #### 2 284470, 1049594, 8619695, 7749438, 77002006, 8460982 ####[address] [address] Hemoglobin (Bld) [Mass/Vol] 13.8 g/dL Normal 12.0-16.0 [facility] Comment on above: Performed By: #### 2 861384, 0568019, 3764877, 9474197, 66975350, 6537155 ####[address] [address] Lymph Absolute 1.8 E9/L Normal 1.0-4.0 [facility] Comment on above: Performed By: #### 2 067274, 1246893, 7622860, 6258058, 11546696, 5380548 ####[address] [address] Lymphocytes/100 WBC (Bld) 16.7 % Normal 14.0-50.0 [facility] Comment on above: Performed By: #### 2 837475, 1501292, 9767438, 2345817, 30866917, 6115704 ####[address] [address] MCH (RBC) [Entitic mass] 26.4 pg Low 27.0-34.0 [facility] Comment on above: Performed By: #### 2 436186, 6562287, 4838004, 2023752, 14051701, 6920534 ####[place] [address] MCHC (RBC) [Mass/Vol] 33.5 g/dL Normal 31.4-36.0 [facility] Comment on above: Performed By: #### 2 802722, 2930360, 5653157, 1398844, 85892405, 5953551 ####[place] [address] MCV (RBC) [Entitic vol] 78.6 fL Low 80.0-100.0 [facility] Comment on above: Performed By: #### 2 196109, 5728756, 1968439, 0595420, 94317932, 1391731 ####[place] [address] [place] Absolute 0.5 E9/L Normal 0.2-1.0 [facility] Comment on above: Performed By: #### 2 653939, 9794865, 7365975, 9312914, 98783065, 6716901 ####[place] [address] Monocytes/100 WBC (Bld) 4.3 % Normal 4.0-14.0 [facility] Comment on above: Performed By: #### 2 906393, 8147619, 0846001, 8951694, 06704288, 2621877 ####[place] [address] Neutro Absolute 8.4 E9/L High 2.0-7.5 [facility] Comment on above: Performed By: #### 2 119207, 7090222, 2430974, 4318831, 08527367, 6071292 ####[address] [address] Neutro Auto 76.2 % High 36.0-75.0 [facility] Comment on above: Performed By: #### 2 942341, 0787932, 5181194, 8927571, 54892943, 5696593 ####[facility] [address] [place] [address] Platelet 327.0 E9/L Normal 150.0-500. 0 [facility] Comment on above: Performed By: #### 2 692361, 0861950, 0466119, 1871073, 31238095, 4729271 ####[facility] [address] [place] [address] Platelet mean volume (Bld) [Entitic vol] 7.3 fL Normal 6.4-10.8 [facility] Comment on above: Performed By: #### 2 076511, 4679511, 0420335, 5547852, 90748094, 4220540 ####[facility] [address] [place] [address] RBC 5.2 E12/L Normal 4.3-5.9 [facility] Comment on above: Performed By: #### 2 997018, 7488289, 9374901, 1962701, 89571072, 3891312 ####[facility] [address] [place] [address] WBC 11.1 E9/L High 4.0-11.0 [facility] Comment on above: Performed By: #### 2 035458, 8519140, 8793820, 2848836, 17533386, 8159444 ####[facility] [address] [place] [address] CHEMISTRYOrdered By: SYSTEM SYSTEM on 12-07-2023 Troponin 2.80 pg/mL Low 10.10 - 27.10 pg/mL [facility] Comment on above: Interpretive Data: T he 95% CI (Confidence Interval) PPV (Positive Predictive Value) for myocardial infarction in females is 38 pg/mL, in males 51 pg/mL. The results should be used in conjunction with clinical conditions of myocardial infarction. (Access High Sensitivity Troponin I Instructions For Use, Josse Megan, May 2018) Troponin 3.00 pg/mL Low 10.10 - 27.10 pg/mL [facility] Comment on above: Interpretive Data: T he 95% CI (Confidence Interval) PPV (Positive Predictive Value) for myocardial infarction in females is 38 pg/mL, in males 51 pg/mL. The results should be used in conjunction with clinical conditions of myocardial infarction. (Access High Sensitivity Troponin I Instructions For Use, [place], May 2018) Anion gap [Moles/Vol] 12 mmol/L Normal 6 - 16 mEq/L [facility] Calcium [Mass/Vol] 8.9 mg/dL Normal 8.9 - 11. 1 mg/dL [facility] Chloride [Moles/Vol] 105 mmol/L Normal 101 - 1 11 mmol/L [facility] CO2 [Moles/Vol] 24 mmol/L Normal 21 - 31 mmol/L [facility] Creatinine [Mass/Vol] 2.0 mg/dL High 0.5 - 1.3 mg/dL [facility] eGFR 31 mL/min/1.73 m2 Low >=59mL/min /1.73 m2 [facility] Glucose [Mass/Vol] 226 mg/dL High 55 - 199 mg/dL [facility] Potassium [Moles/Vol] 4.1 mmol/L Normal 3.5 - 5.3 mmol/L [facility] Sodium [Moles/Vol] 137 mmol/L Normal 135 - 145 mmol/L [facility] Troponin 3.40 pg/mL Low 10.10 - 27.10 pg/mL [facility] Comment on above: Interpretive Data: T he 95% CI (Confidence Interval) PPV (Positive Predictive Value) for myocardial infarction in females is 38 pg/mL, in males 51 pg/mL. The results should be used in conjunction with clinical conditions of myocardial infarction. (Access High Sensitivity Troponin I Instructions For Use, [place], May 2018) Urea nitrogen [Mass/Vol] 30 mg/dL High 5 - 21 mg/dL [facility] Urea nitrogen/Creatinine [Mass ratio] 15 mg/mg Normal 10 - 20 [facility] Alk Phos 78 [iU]/d Normal 21 - 98 Int._Unit/ L [facility] ALT 34 [iU]/d Normal 6 - 46 Int._Unit/ L [facility] AST 27 [iU]/d Normal 5 - 43 Int._Unit/ L [facility] Urea nitrogen/Creatinine [Mass ratio] 15 mg/mg Normal 10 - 20 [facility] COAGULATIONOrdered By: Jhoana Cash on 12-07-2023 aPTT Coag (PPP) [Time] 34.2 s Normal 25.1 - 36.5 second(s) [facility] Auto Coag Comment on above: Interpretive Data: Cathryn valdivia 15 days - 4 weeks 1 - 5 months 6 - 11 months 1 - 5 years 6 - 10 years 11 - 17 years PTT Mean: 35.4 (27.6-45.6) Mean: 33.5 (24.8-40.7) Mean: 32.4 (25.1-40.7) Mean: 31.6 (24.0-39.2) Mean: 31.6 (26.9-38.7) Mean: 31.0 (24.6-38.4) Pediatric Reference ranges were obtained from a study by sergei Garcia prepared from 1437 samples obtained at 7 different centers using the same coagulation reagent and instrumentation as [facility]. Currently there are no coagulation studies available worldwide for children to 14 days, and no normal ranges. Heparin therapeutic range (represented by Anti-Factor Xa activity of 0.2 - 0.4 U/mL) corresponds to PTT of 56.6 - 109.0 sec. INR Coag (PPP) [Relative time] 1.0 {INR} Invalid Interpretation Code [facility] Auto Coag Comment on above: Interpretive Data: I NR results are specifically intended to assess patients stabilized on long-term Anticoagulation therapy suggested INR s Less Intensive Anticoagulation 2.0 3.0 Conventional Range 3.0 4.5 PT Coag (PPP) [Time] 10.9 s Normal 9.4 - 1 2.5 second(s) [facility] Auto Coag Comment on above: Interpretive Data: 1 5 days - 4 weeks 1 - 5 months 6 -11 months 1 5 years 6 10 years 11 -17 years Mean: 11.2 (9.5 12.6) Mean: 11.0 (9.7 12.8) Mean: 11.0 (9.8 13.0) Mean: 11.3 (9.9 13.4) Mean: 11.7 (10.0 14.6) Mean: 11.8 (10.0 - 14.1) Pediatric Reference ranges were obtained from a study by sergei Garcia prepared from 1437 samples obtained at 7 different centers using the same coagulation reagent and instrumentation as [facility]. Currently there are no coagulation studies available worldwide for children to 14 days, and no normal ranges. CT Abdomen/Pelvis w/o Gennaro lozano 12-07-2023 CT Abdomen/Pelvis w/o Contrast Exam Date/Time: 12/07/2023 01:02 EST Reason for Exam: Abdominal pain, acute, nonlocalized Report IMPRESSION: MULTIPLE VENTRAL WALL HERNIAS CONTAINING FAT, SMALL BOWEL, AND COLON IS DISCUSSED. NO CT EVIDENCE OF INCARCERATION OR OBSTRUCTION. SMALL BILATERAL KIDNEYS WITH CORTICAL ATROPHY, GREATER ON LEFT, UNCHANGED. CHOLECYSTECTOMY. 3.0 CM RIGHT ADNEXAL CYST, MOST LIKELY OVARIAN IN ETIOLOGY. CT OF THE ABDOMEN AND PELVIS WITHOUT INTRAVENOUS CONTRAST MEDIUM. History: Abdominal pain, acute, nonlocalized. Painful hernia. No change in appearance. Technical Factors: CT imaging of the abdomen and pelvis were obtained and formatted as 5 mm contiguous axial images from the domes of the diaphragm to the symphysis pubis. Sagittal and coronal reconstructions were also obtained. Oral contrast medium: None. Intravenous contrast medium: None. Comparison: CT abdomen and pelvis, January 19, 2023 Findings: Lungs: Lung bases are clear. Liver: Normal in size, shape, and attenuation. Bile Ducts: Normal in caliber. Gallbladder: Surgically absent. Pancreas: Normal without masses, cysts, ductal dilatation or calcification. Spleen: Normal in size without masses or calcifications. No splenules. Kidneys: Cranial caudal dimensions, right left kidneys, 7.4 cm, and spine 7 cm, respectively. 1.9 cm cortical cyst mid pole right kidney with eccentric 1.2 mm calcification, unchanged. Left kidney shows diffuse cortical irregularity and thinning, greater in mid and upper poles, stable. 2 mm calculus, upper pole left kidney unchanged. No hydronephrosis bilaterally. Adrenals: Normal. Small bowel: Normal in caliber. Report Appendix: Normal. Colon: Normal in caliber. Peritoneum: No ascites, free air, or fluid collections. Vessels: Aorta normal in course and caliber. Lymph nodes: Retroperitoneal: No enlarged retroperitoneal lymph nodes. Mesenteric: No enlarged mesenteric lymph nodes. Pelvic: No enlarged pelvic lymph nodes. Ureters: Normal in course and caliber. No calcifications. Bladder: Shiley decompressed. Reproductive organs: 3 centimeter right adnexal cyst. Abdominal Wall: Left paramedian periumbilical anterior abdominal wall defect containing small bowel and fat (series 2, image 66). Supraumbilical left paramedian fat-containing abdominal wall defect measuring 3.2 cm (series 2, image 99). Left upper paramedian 5.6 cm abdominal wall defect containing fat and transverse colon (series 2, image 36). No associated bowel dilatation or fat stranding identified. No diastasis of rectus musculature. No edema or masses. Bones: No bone lesions. No degenerative changes. No post operative changes. All CT scans at this facility use dose modulation, iterative reconstruction, and/or weight based dosing when appropriate to reduce radiation dose to as low as reasonably achievable. Ordering Provider: Thomas Ferrera FINAL REPORT Dictated: 12/07/2023 9:46 am Jeramie Hare MD Signed (Electronic Signature): 12/07/2023 9:46 am Signed by: Jeramie Hare MD Transcribed by: ORIN Technologist: FRED Technical Comments GFR (mL/min/1/73m2) na Contrast: None Contrast amount in ml's: 0 Rectal Contrast Given? No Normal [facility] Consent for Treatmenton Consent for Treatment [id number] Normal [facility] Discharge Instructionson Discharge Instructions [id number] Normal [facility] Discharge Instructions [id number] Normal [facility] ED Clinical Summaryon 2023 ED Clinical Summary (Inserted Image. Kendal ble to display) [place] [id number] ED Clinical Summary Person Information Name: GUERRERO RAMOS/[place] Age: 43 Years : 1980 Sex: Female Language: Syrian PCP: JAYESH ESCALANTE MD Marital Status: Single Visit Id: Visit Reason: Syncope/Near syncope; NEAR SYNCOPE Speciality: Acuity: 3 Enc Type: Emergency Med Service: Emergency Arrival: 12/07/2023 14:31:10 Discharge: 12/07/2023 20:47:55 LOS: 000 06:16 Checkin: 12/07/2023 14:31:10 Checkout: 12/07/2023 20:47:55 Dispo Type: Home (Routine DC) EVENTS: Event Name Event Status Request Date/Time Start Date/Time Complete Date/Time Arrive Complete 12/07/2023 14:31:10 12/07/2023 14:31:10 12/07/2023 14:31:10 Document Home Meds Request 12/07/2023 14:31:10 Triage Complete 12/07/2023 14:31:10 12/07/2023 14:45:19 12/07/2023 14:45:19 Registration Complete 12/07/2023 14:33:07 12/07/2023 14:33:07 12/07/2023 14:33:07 Reg Complete Request 12/07/2023 14:33:07 Reg Bed Request Complete 12/07/2023 14:33:07 12/07/2023 14:33:07 12/07/2023 14:33:07 EKG Complete 12/07/2023 14:42:09 12/07/2023 14:46:51 Pending Labs Request 12/07/2023 14:46:00 Lab Complete 12/07/2023 14:46:00 12/07/2023 15:35:43 X-Ray Complete 12/07/2023 14:46:00 12/07/2023 15:07:31 12/07/2023 16:24:40 Pending Labs Complete 12/07/2023 14:58:07 12/07/2023 14:58:07 12/07/2023 15:35:43 Lab Complete 12/07/2023 14:58:07 12/07/2023 14:58:07 12/07/2023 15:35:43 Pending Labs Complete 12/07/2023 14:58:48 12/07/2023 14:58:48 12/07/2023 14:58:49 Bed Assign Complete 12/07/2023 15:54:46 12/07/2023 15:54:46 12/07/2023 15:54:46 Dr Exam Complete 12/07/2023 15:54:46 12/07/2023 15:55:00 12/07/2023 15:55:00 RN Exam Complete 12/07/2023 15:54:46 12/07/2023 16:06:39 12/07/2023 16:06:39 Registration Complete 12/07/2023 15:55:00 12/07/2023 17:19:15 12/07/2023 17:19:15 Dr Exam Complete 12/07/2023 15:56:00 12/07/2023 15:56:00 12/07/2023 15:56:00 Wet Read Complete 12/07/2023 16:24:40 12/07/2023 16:44:41 12/07/2023 16:44:41 Meds Admin Request 12/07/2023 16:46:22 Meds Admin Request 12/07/2023 19:00:05 Pending Labs Complete 12/07/2023 19:13:49 12/07/2023 20:08:46 Lab Complete 12/07/2023 19:13:49 12/07/2023 20:08:46 Urine Collect Complete 12/07/2023 19:13:49 12/07/2023 20:08:46 Discharge Complete 12/07/2023 20:24:35 12/07/2023 20:48:02 12/07/2023 20:48:02 Transfer Complete 12/07/2023 20:48:02 12/07/2023 20:48:02 12/07/2023 20:48:02 ADDRESS: [address] [place] [id number] [facility] DOC NOTES: MEDICAL INFORMATION: Prescriptions Given: Medications to Continue with No Changes Other Medications alprazolam (alprazolam 0.5 mg Tab) 1 Tablets By Mouth 3 times a day as needed for anxiety. dicyclomine (Bentyl 10 mg Cap) 1 Capsules By Mouth 4 times a day for 7 Days. Refills: 0. ergocalciferol (ergocalciferol 50,000 intl units Cap) meclizine (meclizine 25 mg Tab) ondansetron (Zofran 4 mg Tab) 1 Tablets By Mouth every 8 hours as needed Nausea/Vomiting. Refills: 0. ondansetron (Zofran ODT 4 mg Tab-Dis) 1 Tablets By Mouth every 8 hours. Refills: 0. ondansetron (Zofran ODT 4 mg Tab-Dis) 1 Tablets By Mouth every 8 hours as needed Nausea/Vomiting. Refills: 0. ondansetron (Zofran ODT 4 mg Tab-Dis) 1 Tablets By Mouth 3 times a day. Refills: 0. promethazine (promethazine 12.5 mg oral tablet) 1 Tablets By Mouth every 4 hours. Refills: 0. rosuvastatin (rosuvastatin 20 mg Tab) semaglutide (Ozempic (1 mg dose) 4 mg/3 mL subcutaneous solution) sertraline (sertraline 50 mg Tab) tramadol (traMADOL 50 mg Tab) trazodone (traZODONE 100 mg Tab) PATIENT EDUCATION INFORMATION: Instructions: Near-Syncope, Lisc-tu-Hpkc Follow up: With: Address: When: JAYESH ESCALANTE [address] [place] [address] [employer] (1) In 3 days 12/10/2023 DIAGNOSIS: 1:Near syncope Normal [facility] ED Clinical Summary (Inserted Image. Kendal ble to display) [place] [id number] ED Clinical Summary Person Information [facility]: [facility] Age[facility] 43 Years : 1980 Sex: Female Language: Syrian PCP: JAYESH ESCALANTE MD Marital Status: Single Visit Id: Visit Reason: Abdominal pain; Nausea; Dizziness; NAUSEA, BACK PAIN, DIZZINESS Speciality: Acuity: 3 Enc Type: Emergency Med Service: Emergency Arrival: 12/06/2023 22:03:34 Discharge: 12/07/2023 04:47:05 LOS: 000 06:44 Checkin: 12/06/2023 22:03:34 Checkout: 12/07/2023 04:47:05 Dispo Type: Home (Routine DC) EVENTS: Event Name Event Status Request Date/Time Start Date/Time Complete Date/Time Arrive Complete 12/06/2023 22:03:34 12/06/2023 22:03:34 12/06/2023 22:03:34 Document Home Meds Request 12/06/2023 22:03:34 Triage Complete 12/06/2023 22:03:34 12/06/2023 22:28:03 12/06/2023 22:28:03 EKG Complete 12/06/2023 22:26:46 12/06/2023 22:31:16 Registration Complete 12/06/2023 22:29:43 12/06/2023 22:29:43 12/06/2023 22:29:43 Reg Complete Request 12/06/2023 22:29:43 Reg Bed Request Complete 12/06/2023 22:29:43 12/06/2023 22:29:43 12/06/2023 22:29:43 Meds Admin Request 12/06/2023 23:26:22 Pending Labs Complete 12/06/2023 23:26:22 12/07/2023 00:38:02 Lab Complete 12/06/2023 23:26:22 12/07/2023 00:38:02 Urine Collect Complete 12/06/2023 23:26:22 12/07/2023 00:29:05 Bed Assign Complete 12/06/2023 23:47:29 12/06/2023 23:47:29 12/06/2023 23:47:29 Dr Exam Complete 12/06/2023 23:47:29 12/06/2023 23:51:21 12/06/2023 23:51:21 RN Exam Complete 12/06/2023 23:47:29 12/07/2023 00:12:16 12/07/2023 00:12:16 Registration Request 12/06/2023 23:51:21 Fall Risk Request 12/07/2023 00:12:17 Pending Labs Complete 12/07/2023 00:12:56 12/07/2023 00:12:56 12/07/2023 00:37:56 Lab Complete 12/07/2023 00:12:56 12/07/2023 00:12:56 12/07/2023 00:37:56 CT Cancel 12/07/2023 00:17:35 12/07/2023 00:24:00 12/07/2023 00:52:23 Meds Admin Request 12/07/2023 00:17:35 Pending Labs Inlab 12/07/2023 00:29:06 12/07/2023 00:29:06 Lab Inlab 12/07/2023 00:29:06 12/07/2023 00:29:06 CT Complete 12/07/2023 00:52:19 12/07/2023 00:52:19 12/07/2023 01:02:07 Pending Labs Complete 12/07/2023 00:53:58 12/07/2023 00:53:58 12/07/2023 00:53:58 Pending Labs Complete 12/07/2023 00:54:59 12/07/2023 00:54:59 12/07/2023 00:55:00 Discharge Complete 12/07/2023 02:53:54 12/07/2023 04:47:15 12/07/2023 04:47:15 Transfer Complete 12/07/2023 04:47:15 12/07/2023 04:47:15 12/07/2023 04:47:15 ADDRESS: [address] [place] [id number] [facility] DOC NOTES: MEDICAL INFORMATION: Prescriptions Given: New Medications [place] [phone] [address] [phone], [phone] dicyclomine (Bentyl 10 mg Cap) 1 Capsules By Mouth 4 times a day for 7 Days. Refills: 0. Medications to Continue Taking That Have Changed [facility] [address] [facility] [address] [place] [phone], [phone] START: ondansetron (Zofran ODT 4 mg Tab-Dis) 1 Tablets By Mouth every 8 hours. Refills: 0. Other Medications START: ondansetron (Zofran 4 mg Tab) 1 Tablets By Mouth every 8 hours as needed Nausea/Vomiting. Refills: 0. START: ondansetron (Zofran ODT 4 mg Tab-Dis) 1 Tablets By Mouth every 8 hours as needed Nausea/Vomiting. Refills: 0. START: ondansetron (Zofran ODT 4 mg Tab-Dis) 1 Tablets By Mouth 3 times a day. Refills: 0. Medications to Continue with No Changes Other Medications promethazine (promethazine 12.5 mg oral tablet) 1 Tablets By Mouth every 4 hours. Refills: 0. PATIENT EDUCATION INFORMATION: Instructions: Nausea and Vomiting, Adult, Ntvt-ki-Wszl; Abdominal Pain, Adult, Tdpl-md-Ianj Follow up: With: Address: When: JAYESH ESCALANTE [address] [place] [id number] [employer] ([employer] In 3 days 12/10/2023 Comments: You can Use the Bentyl, Zofran as prescribed as needed for nausea and vomiting. Please follow-up with your primary care doctor in the next 2 to 3 days for further evaluation management. Please return to the ED for any new or worsening symptoms. DIAGNOSIS: Abdominal pain, acute; Hyperglycemia; N&V (nausea and vomiting) Normal [facility] ED Note-Physicianon 12-07-19 ED Note-Physician Basic Information Time Seen: Thomas Ferrera DO 12/06/2023 23:51 Chief Complaint States hernia is painful since this afternoon. Denies any change in appearance. Nausea, vomiting, and dizziness since this afternoon. History of Present Illness Patient is a 43-year-old female with past medical history of diabetes, hypertension, incisional hernia presenting to the ED for evaluation of abdominal pain, nausea vomiting and dizziness. Patient states that symptoms started this afternoon, has progressively worsened. Patient states that she has not noted any change in the size of the hernia. Patient denies any chest pain or shortness of breath. Patient states she has seen a surgeon for the hernia however they have not offered operative intervention at this time. Review of Systems A 10 point review of systems is negative except as noted above. Medical and Surgical History: Reviewed and noted Social history: Lives at home Tobacco: Denies Physical Exam Vitals & Measurements T: 36.6 ?C(Oral) HR: 68(Monitored) RR: 16 BP: 167/106 SpO2: 95% HT: 165 cm WT: 153.6 kg BMI: 56.42 General: Well developed, non toxic appearing, no acute distress HEENT: Head atraumatic, Mucosa moist, hearing grossly normal Neck: No JVD, tracheal deviation Cardiac: Regular rate, rhythm, no murmurs, or gallops, 2+ radial pulses Respiratory: Lungs clear to auscultation B/L, normal respiratory effort Abdomen: Soft diffuse abdominal tenderness on examination there is a soft reducible hernia noted just to the right of the midline, no rebound or guarding, no peritoneal signs Extremities: No edema noted in the LE B/L, no tenderness to palpation Neurologic: Alert and oriented, speech clear Skin: No rashes or lesions Psych: Appropriate mood and behavior Medical Decision Making MEDICAL DECISION MAKING Number and Complexity of Problems Differential Diagnosis: [] [facility] Data External documents reviewed: [] My EKG interpretation: [] My CT interpretation: [] My X-ray interpretation: [] My Ultrasound interpretation: [] Decision rules/scores evaluated: [] Discussed with: [] Treatment and Disposition ED Course: Patient is a 43-year-old female presenting to the ED for evaluation of abdominal pain, nausea, dizziness. Patient is nontoxic-appearing on arrival, no acute distress. Laboratory evaluation is obtained, CT and pelvis is ordered. Patient is given morphine, Zofran, IV fluids. Patient's laboratory evaluation reveals slight leukocytosis with a white blood cell count of 11.1, glucose is elevated at 350 however patient does have history of diabetes. Patient's creatinine is 2.1 on review this is patient's baseline. Urinalysis without signs of infection. CT of the abdomen pelvis is obtained which shows findings consistent with a hernia but no evidence of bowel obstruction, strangulation. There are atrophic appearance of the kidneys that are unchanged. Otherwise no acute intra-abdominal pathology. Discussed findings with patient she is comfortable with discharge home. Patient is discharged home with prescription for Bentyl, Zofran. She is to follow-up with her primary care doctor in the next 2 to 3 days. She is to return to ED for any new or worsening symptoms. Shared decision making: [] Code status: [] Assessment/Plan Abdominal pain, acute (R10.9: Unspecified abdominal pain) Hyperglycemia (R73.9: Hyperglycemia, unspecified) N&V (nausea and vomiting) (R11.2: Nausea with vomiting, unspecified) Orders: dicyclomine, 10 mg = 1 cap(s), Oral, QID, X 7 day(s), # 14 cap(s), Refills(s) 0, Pharmacy: [id number], 165, cm, 12/06/23 22:28:00 EST, Height/Length Dosing, 153.6, kg, 12/06/23 22:32:00 EST, Weight Dosing morphine, 4 mg = 1 mL, Injection, IV Push, Once, Stop date 12/07/23 0:17:00 EST, STAT, Start date 12/07/23 0:17:00 EST, 12/07/23 0:17:00 EST ondansetron, 4 mg = 2 mL, Injection, IV Push, Once, Stop date 12/07/23 0:17:00 EST, STAT, Start date 12/07/23 0:17:00 EST, 12/07/23 0:17:00 EST ondansetron, 4 mg = 1 tab(s), Oral, q8hr, # 12 tab(s), Refills(s) 0, Pharmacy: [id number], 165, cm, 12/06/23 22:28:00 EST, Height/Length Dosing, 153.6, kg, 12/06/23 22:32:00 EST, Weight Dosing Sodium Chloride 0.9% intravenous solution 1,000 mL, 1,000 mL, IV, 20 mL/hr, STAT, Start date 12/06/23 23:25:00 EST, 50 hour(s), Total volume (mL): 1,000, 153.6 kg, 2.65, m2 Sodium Chloride 0.9% intravenous solution 1,000 mL, 1,000 mL, IV, 983.61 mL/hr, for 30 day(s), Stop date 01/06/24 0:16:00 EST, STAT, Start date 12/07/23 0:17:00 EST, 61 minute(s), Total volume (mL): 1,000, 153.6 kg, 2.65, m2 Basic Metabolic Panel CBC w/ Auto Diff CT Abdomen/Pelvis w/o Contrast eGFR Extra Blue Tube Extra SST Tube Hepatic Function Panel Lactic Acid Lipase Level UA With Cult Reflex Urine Culture Medications Administered Given Sodium Chloride 0.9% IV Lisa 1000 mL 1,000 mL, 1000 mL, IV morphine 4 mg/mL Inj, 4 mg, IV Push Zofran 4 m (more content not included)... Normal [facility] Comment on above: Result Comment: Inge toyally Signed By: Thomas Ferrera DO.tristen\Date and Time Signed: 12/07/23 03:56 EST ED Patient Education Noteon 12-07-2023 ED Patient Education Note Neurology Near-Syncope Near-syncope is when you suddenly feel like you might pass out or faint. This may also be called presyncope. During an episode of near-syncope, you may: ? Feel dizzy, weak, or light-headed. It may feel like the room is spinning. ? Feel like you may vomit (nauseous). ? See spots or see all white or all black. ? Have cold, clammy skin. ? Feel warm and sweaty. ? Hear ringing in your ears. This condition is caused by a sudden decrease in blood flow to the brain. This can result from many causes, but most of those causes are not dangerous. However, near-syncope may be a sign of a serious medical problem, so it is important to seek medical care. Follow these instructions at home: Medicines ? Take koop-pqy-mwzwlmk and prescription medicines only as told by your doctor. ? If you are taking blood pressure or heart medicine, get up slowly and spend many minutes getting ready to sit and then stand. This can help with dizziness. Lifestyle ? Do not drive, use machinery, or play sports until your doctor says it is okay. ? Do not drink alcohol. ? Do not smoke or use any products that contain nicotine or tobacco. If you need help quitting, ask your doctor. ? Avoid hot tubs and saunas. General instructions ? Be aware of any changes in your symptoms. ? Talk with your doctor about your symptoms. You may need to have testing to help find the cause. ? If you start to feel like you might pass out, sit or lie down right away. If sitting, lower your head down between your legs. If lying down, raise (elevate) your feet above the level of your heart. ? Breathe deeply and steadily. Wait until all of the symptoms are gone. ? Have someone stay with you until you feel better. ? Drink enough fluid to keep your pee (urine) pale yellow. ? Avoid standing for a long time. If you must stand for a long time, do movements such as: ? Moving your legs. ? Crossing your legs. ? Flexing and stretching your leg muscles. ? Squatting. ? Keep all follow-up visits. Contact a doctor if: ? You continue to have episodes of near fainting. Get help right away if: ? You pass out or faint. ? You have any of these symptoms: ? Fast or uneven heartbeats (palpitations). ? Pain in your chest, belly, or back. ? Shortness of breath. ? You have a seizure. ? You have a very bad headache. ? You are confused. ? You have trouble seeing. ? You are very weak. ? You have trouble walking. ? You are bleeding from your mouth or butt. ? You have black or tarry poop (stool). These symptoms may be an emergency. Get help right away. Call your local emergency services (911 in the [place] ? Do not wait to see if the symptoms will go away. ? Do not drive yourself to the hospital. Summary ? Near-syncope is when you suddenly feel like you might pass out or faint. ? This condition is caused by a sudden decrease in blood flow to the brain. ? Near-syncope may be a sign of a serious medical problem, so it is important to seek medical care. ? If you start to feel like you might pass out, sit or lie down right away. If sitting, lower your head down between your legs. If lying down, raise (elevate) your feet above the level of your heart. ? Talk with your doctor about your symptoms. You may need to have testing to help find the cause. This information is not intended to replace advice given to you by your health care provider. Make sure you discuss any questions you have with your health care provider. Document Revised: 02/23/2022 Document Reviewed: 02/23/2022 Elsevier Patient Education ? 2022 [employer]. [facility] ED Patient Education Note Gastroenterology Nausea and Vomiting, Adult Nausea is feeling that you have an upset stomach and that you are about to vomit. Vomiting is when food in your stomach forcefully comes out of your mouth. Vomiting can make you feel weak. If you vomit, or if you are not able to drink enough fluids, you may not have enough water in your body (get dehydrated). If you do not have enough water in your body, you may: ? Feel tired. ? Feel thirsty. ? Have a dry mouth. ? Have cracked lips. ? Pee (urinate) less often. Older adults and people with other diseases or a weak body defense system (immune system) are at higher risk for not having enough water in the body. If you feel like you may vomit or you vomit, it is important to follow instructions from your doctor about how to take care of yourself. Follow these instructions at home: Watch your symptoms for any changes. Tell your doctor about them. Eating and drinking ? Take an ORS (oral rehydration solution). This is a drink that is sold at pharmacies and stores. ? Drink clear fluids in small amounts as you are able, such as: ? Water. ? Ice chips. ? Fruit juice that has water added (diluted fruit juice). ? Low-calorie sports drinks. ? Eat bland, omdc-da-fgarna foods in small amounts as you are able, such as: ? Bananas. ? Applesauce. ? Rice. ? Low-fat (lean) meats. ? [place]. ? Crackers. ? Avoid drinking fluids that have a lot of sugar or caffeine in them. This includes energy drinks, sports drinks, and soda. ? Avoid alcohol. ? Avoid spicy or fatty foods. General instructions ? Take qovp-cfc-bwjtehk and prescription medicines only as told by your doctor. ? Drink enough fluid to keep your pee (urine) pale yellow. ? Wash your hands often with soap and water for at least 20 seconds. If you cannot use soap and water, use hand nurse infection control. ? Make sure that everyone in your home washes their hands well and often. ? Rest at home until you feel better. ? Watch your condition for any changes. ? Take slow and deep breaths when you feel like you may vomit. ? Keep all follow-up visits. Contact a doctor if: ? Your symptoms get worse. ? You have new symptoms. ? You have a fever. ? You cannot drink fluids without vomiting. ? You feel like you may vomit for more than 2 days. ? You feel light-headed or dizzy. ? You have a headache. ? You have muscle cramps. ? You have a rash. ? You have pain while peeing. Get help right away if: ? You have pain in your chest, neck, arm, or jaw. ? You feel very weak or you faint. ? You vomit again and again. ? You have vomit that is bright red or looks like black coffee grounds. ? You have bloody or black poop (stools) or poop that looks like tar. ? You have a very bad headache, a stiff neck, or both. ? You have very bad pain, cramping, or bloating in your belly (abdomen). ? You have trouble breathing. ? You are breathing very quickly. ? Your heart is beating very quickly. ? Your skin feels cold and clammy. ? You feel confused. ? You have signs of losing too much water in your body, such as: ? Dark pee, very little pee, or no pee. ? Cracked lips. ? Dry mouth. ? Sunken eyes. ? Sleepiness. ? Weakness. These symptoms may be an emergency. Get help right away. Call 911. ? Do not wait to see if the symptoms will go away. ? Do not drive yourself to the hospital. Summary ? Nausea is feeling that you have an upset stomach and that you are about to vomit. Vomiting is when food in your stomach comes out of your mouth. ? Follow instructions from your doctor about eating and drinking. ? Take desb-ubk-eaqpekw and prescription medicines only as told by your doctor. ? Contact your doctor if your symptoms get worse or you have new symptoms. ? Keep all follow-up visits. This information is not intended to replace advice given to you by your health care provider. Make sure you discuss any questions you have with your health care provider. Document Revised: 04/21/2022 Document Reviewed: 04/21/2022 [employer] Patient Education ? 2022 [employer] Abdominal Pain, Adult Many things can cause belly (abdominal) pain. Most times, belly pain is not dangerous. Many cases of belly pain can be watched and treated at home. Sometimes, though, belly pain is serious. Your doctor will try to find the cause of your belly pain. Follow these instructions at home: Medicines ? Take niim-yry-wvhsnce and prescription medicines only as told by your doctor. ? Do not take medicines that help you poop (laxatives) unless told by your doctor. General instructions ? Watch your belly pain for any changes. ? Drink enough fluid to keep your pee (urine) pale yellow. ? Keep all follow-up visits as told by your doctor. This is important. Contact a doctor if: ? Your belly pain changes or gets worse. ? You are not hungry, or y (more content not included)... Normal [facility] ED Patient Summaryon 024 ED Patient Summary (Inserted Image. Kendal ble to display) [address] [id number] Patient Discharge Instructions Person Information Name: GUERRERO RAMOS Age: 43 Years Arrival Date: 12/07/2023 14:31:10 Discharge Diagnosis: 1:Near syncope Primary Care Physician: JAYESH ESCALANTE MD Provider Information Primary Provider: Fernando Espinoza DO Advanced Office Cashier:None The exam and treatment you received in the Emergency Department were for an urgent problem and are not intended as complete care. It is important that you follow up with a doctor, nurse practitioner, or physician?s surgical assistant certified for ongoing care. If your symptoms become worse or you do not improve as expected and you are unable to reach your usual health care provider, you should return to the Emergency Department. We are available 24 hours a day. GUERRERO RAMOS has been given the following list of patient education materials, prescriptions and follow-up instructions: Follow-up Instructions: With: Address: When: JAYESH ESCALANTE [address] [place] [id number] [facility] (1) In 3 days 12/10/2023 In the event that this physician does not participate in your insurance network, please consult with your insurance company to find a nearby participating provider. Patient Education Materials: Near-Syncope, Zacm-dj-Huvl A MESSAGE TO ALL PATIENTS REGARDING OPIOIDS PRESCRIPTION OPIOIDS: WHAT YOU NEED TO KNOW Prescription opioids can be used to help relieve pajhfaar-mz-sawimi pain and are often prescribed following a surgery or injury, or for certain health conditions. These medications can be an important part of the treatment but also come with serious risks. It is important to work with your healthcare provider to make sure you are getting the safest, most effective care. WHAT ARE THE RISKS AND SIDE EFFECTS OF OPIOID USE? Prescription opioids carry serious risks of addiction and overdose, especially with prolonged use. An opioid overdose, often marked by slowed breathing, can cause sudden . The use of prescription opioids can have a number of side effects as well, even when taken as directed: ? Tolerance?meaning you might need to take more of the medication for the same pain relief ? Physical dependence?meaning you have symptoms of withdrawal when a medication is stopped ? Increased sensitivity to pain ? Constipation ? Nausea, vomiting, and dry mouth ? Sleepiness and dizziness ? Confusion ? Depression ? Low levels of testosterone that can result in lower sex drive, energy, and strength ? Itching and sweating RISKS ARE GREATER WITH: ? History of drug misuse, substance use disorder, or overdose ? Mental health conditions (such as depression or anxiety) ? Sleep apnea ? Older age (65 years and older) ? Avoid alcohol while taking prescription opioids. Also, unless specifically advised by your health care provider, medications to avoid include: ? Benzodiazepines (such as Xanax or Valium) ? Muscle relaxants (such as Soma or Flexeril) ? Hypnotics (such as Ambien or Lunesta) ? Other prescription opioids KNOW YOUR OPTIONS Talk to your health care provider about ways to manage your pain that don?t involve prescription opioids. Some of these options may actually work better and have fewer risks and side effects. Options may include: ? Pain relievers such as acetaminophen, ibuprofen, and naproxen ? Some medication that are also used for depression or seizures ? Physical therapy and exercise ? Cognitive behavioral therapy, a psychological, goal-directed approach, in which patients learn how to modify physical, behavioral, and emotional triggers of pain and stress. IF YOU ARE PRESCRIBED OPIOIDS FOR PAIN: ? Never take opioids in greater amounts or more often than prescribed. ? Follow up with your primary health care provider. o Work together to create a plan on how to manage your pain. o Talk about ways to help manage your pain that don?t involve prescription opioids. o Talk about any and all concerns and side effects. ? Help prevent misuse and abuse o Never sell or share prescription opioids. o Never use another person?s prescription opioids. ? Store prescription opioids in a secure place and out of reach of others (this may include visitors, children, friends, and family). ? Safely dispose of unused prescription opioids: Find your community drug take-back program or your pharmacy mail-back program, or flush them down the toilet, following guidance from the Food and Drug Administration (www.fda.gov/Drugs/Resour cesForYou). ? Visit www.cdc.gov/drugoverdose to learn about the risks of opioids abuse and overdose. ? If you believe you may be struggling with addiction, tell your health healthcare network consultant and ask for guidance or call [facility]?S National Helpline at 7-291-502-SourceNinja. H?REL Source: [facility] [facility] [place] [facility] (more content not included)... Normal [facility] ED Patient Summary (Inserted Image. Kendal ble to display) [address] [address] Patient Discharge Instructions Person Information Name: GUERRERO RAMOS Age: 43 Years Arrival Date: 12/06/2023 22:03:34 Discharge Diagnosis: Abdominal pain, acute; Hyperglycemia; N&V (nausea and vomiting) Primary Care Physician: JAYESH ESCALANTE MD Provider Information Primary Provider: Thomas Ferrera DO Advanced Office Cashier:None The exam and treatment you received in the Emergency Department were for an urgent problem and are not intended as complete care. It is important that you follow up with a doctor, nurse practitioner, or physician?s surgical assistant certified for ongoing care. If your symptoms become worse or you do not improve as expected and you are unable to reach your usual health care provider, you should return to the Emergency Department. We are available 24 hours a day. GUERRERO RAMOS has been given the following list of patient education materials, prescriptions and follow-up instructions: Follow-up Instructions: With: Address: When: JAYESH ESCALANTE [address] [place] [id number] Business (1) In 3 days 12/10/2023 Comments: You can Use the Bentyl, Zofran as prescribed as needed for nausea and vomiting. Please follow-up with your primary care doctor in the next 2 to 3 days for further evaluation management. Please return to the ED for any new or worsening symptoms. In the event that this physician does not participate in your insurance network, please consult with your insurance company to find a nearby participating provider. Patient Education Materials: Nausea and Vomiting, Adult, Spoi-xy-Mgci; Abdominal Pain, Adult, Fyqt-qs-Twqs A MESSAGE TO ALL PATIENTS REGARDING OPIOIDS PRESCRIPTION OPIOIDS: WHAT YOU NEED TO KNOW Prescription opioids can be used to help relieve lnsybpyy-hw-gopvky pain and are often prescribed following a surgery or injury, or for certain health conditions. These medications can be an important part of the treatment but also come with serious risks. It is important to work with your healthcare provider to make sure you are getting the safest, most effective care. WHAT ARE THE RISKS AND SIDE EFFECTS OF OPIOID USE? Prescription opioids carry serious risks of addiction and overdose, especially with prolonged use. An opioid overdose, often marked by slowed breathing, can cause sudden . The use of prescription opioids can have a number of side effects as well, even when taken as directed: ? Tolerance?meaning you might need to take more of the medication for the same pain relief ? Physical dependence?meaning you have symptoms of withdrawal when a medication is stopped ? Increased sensitivity to pain ? Constipation ? Nausea, vomiting, and dry mouth ? Sleepiness and dizziness ? Confusion ? Depression ? Low levels of testosterone that can result in lower sex drive, energy, and strength ? Itching and sweating RISKS ARE GREATER WITH: ? History of drug misuse, substance use disorder, or overdose ? Mental health conditions (such as depression or anxiety) ? Sleep apnea ? Older age (65 years and older) ? Avoid alcohol while taking prescription opioids. Also, unless specifically advised by your health care provider, medications to avoid include: ? Benzodiazepines (such as Xanax or Valium) ? Muscle relaxants (such as Soma or Flexeril) ? Hypnotics (such as Ambien or Lunesta) ? Other prescription opioids KNOW YOUR OPTIONS Talk to your health care provider about ways to manage your pain that don?t involve prescription opioids. Some of these options may actually work better and have fewer risks and side effects. Options may include: ? Pain relievers such as acetaminophen, ibuprofen, and naproxen ? Some medication that are also used for depression or seizures ? Physical therapy and exercise ? Cognitive behavioral therapy, a psychological, goal-directed approach, in which patients learn how to modify physical, behavioral, and emotional triggers of pain and stress. IF YOU ARE PRESCRIBED OPIOIDS FOR PAIN: ? Never take opioids in greater amounts or more often than prescribed. ? Follow up with your primary health care provider. o Work together to create a plan on how to manage your pain. o Talk about ways to help manage your pain that don?t involve prescription opioids. o Talk about any and all concerns and side effects. ? Help prevent misuse and abuse o Never sell or share prescription opioids. o Never use another person?s prescription opioids. ? Store prescription opioids in a secure place and out of reach of others (this may include visitors, children, friends, and family). ? Safely dispose of unused prescription opioids: Find your community drug take-back program or your pharmacy mail-back program, or flush them down the toilet, following guidance from the Food and D (more content not included)... Normal [facility] HEMATOLOGYOrdered By: SYSTEM SYSTEM on 12-07-2023 Basophil Absolute 0.0 E9/L Normal 0.0 - 0.2 E9/L Remisol Heme Basophils/100 WBC (Bld) 0.6 % Normal 0.0 - 2.0 % Remisol Heme Eos Absolute 0.2 E9/L Normal 0.0 - 0.5 E9/L Remisol Heme Eosinophils/100 WBC (Bld) 3.6 % Normal 0.0 - 8.0 % Remisol Heme Erythrocyte distribution width (RBC) [Ratio] 15.4 % High 10.9 - 14.2 % Remisol Heme Hematocrit (Bld) [Volume fraction] 41.0 % Normal 34.0 - 46.0 % Remisol Heme Hemoglobin (Bld) [Mass/Vol] 13.2 g/dL Normal 12.0 - 16.0 gm/dL Remisol Heme Lymph Absolute 1.4 E9/L Normal 1.0 - 4.0 E9/L Remisol Heme Lymphocytes/100 WBC (Bld) 22.3 % Normal 14.0 - 50.0 % Remisol Heme MCH (RBC) [Entitic mass] 26.0 pg Low 27.0 - 34.0 pg Remisol Heme MCHC (RBC) [Mass/Vol] 32.6 g/dL Normal 31.4 - 36.0 gm/dL Remisol Heme MCV (RBC) [Entitic vol] 79.8 fL Low 80.0 - 100.0 fL Remisol Heme [place] Absolute 0.3 E9/L Normal 0.2 - 1.0 E9/L Remisol Heme Monocytes/100 WBC (Bld) 5.6 % Normal 4.0 - 14.0 % Remisol Heme Neutro Absolute 4.2 E9/L Normal 2.0 - 7.5 E9/L Remisol Heme Neutro Auto 67.9 % Normal 36.0 - 75.0 % Remisol Heme Platelet 261.0 E9/L Normal 150.0 - 500.0 E9/L Remisol Heme Platelet mean volume (Bld) [Entitic vol] 6.9 fL Normal 6.4 - 10.8 fL Remisol Heme RBC 5.1 E12/L Normal 4.3 - 5.9 E12/L Remisol Heme WBC 6.1 E9/L Normal 4.0 - 11.0 E9/L Remisol Heme Hep Func PanelOrdered By: [employer] SYSTEM on 12-07-2023 Albumin [Mass/Vol] 4.0 g/dL Normal 3.3-5.0 Remiso l Chem Comment on above: Performed By: #### 2 236824, 7495143, 5282001, 5424195, 88593369, 4257201 ####[facility] [address] [place] [address] Albumin/Globulin [Mass ratio] 1.0 {ratio} Low 1.1-2.2 Remisol Chem Comment on above: Performed By: #### 2 231224, 0596051, 7944864, 0085155, 15952967, 8791012 ####[facility] [address] [place] [address] Bili Direct 0.1 mg/dL Normal 0.0-0.4 Remisol Chem Comment on above: Performed By: #### 2 937853, 3588618, 5052011, 6209968, 85876135, 9071306 ####[facility] [address] [place] [address] Bili Indirect 0.3 mg/dL Normal 0.1-0.9 Remisol Harini m Comment on above: Performed By: #### 2 351965, 6881517, 6483566, 9255373, 12000737, 0644329 ####[facility] [address] [place] [address] Bili Total 0.4 mg/dL Normal 0.0-1.1 Remisol Chem Comment on above: Performed By: #### 2 638470, 6987046, 4770938, 8288817, 48393558, 2636068 ####[place] [place] [address] Globulin (S) [Mass/Vol] 3.9 g/dL Normal 1.4-4.0 Remisol Chem Comment on above: Performed By: #### 2 222409, 5531352, 0715353, 9801673, 20756246, 8292522 ####[address] [address] Protein [Mass/Vol] 7.9 g/dL High 6.0-7.8 Remiso l Chem Comment on above: Performed By: #### 2 725446, 3888484, 2229299, 8909550, 16964617, 0814959 ####[address] [address] Hep Func Panelon 12-07-2023 Alk Phos 78 Int._Unit/L Normal 21-98 [facility] Comment on above: Performed By: #### 2 827859, 2534918, 9728052, 8302121, 77680564, 7620187 ####[address] [place] [address] ALT 34 Int._Unit/L Normal 6-46 [facility] Comment on above: Performed By: #### 2 933549, 1373442, 0067189, 3097689, 70835848, 7491420 ####[address] [place] [address] AST 27 Int._Unit/L Normal 5-43 [facility] Comment on above: Performed By: #### 2 137600, 6247166, 3552595, 4022718, 39786524, 4496294 ####[facility] [address] [place] [address] Lactic AcidOrdered By: Carilo[employer]E [employer] SYSTEM on 12-07-2023 Lactic Acid Lvl 1.2 mmol/L Normal 0.5-2.2 Remisol C hem Comment on above: Performed By: #### 2 229190, 6215257, 9910157, 4674571, 29797811, 3315764 ####[facility] [address] [place] [address] Lipase LevelOrdered By: Cariloop EM SYSTEM on 12-07-2023 Lipase Lvl 24 unit/L Normal 13-58 Remisol Chem Comment on above: Performed By: #### 2 213431, 6711233, 5948288, 2203568, 02844977, 0425671 ####[facility] [address] [place] [address] PT & PTTon 12-07-2023 aPTT Coag (PPP) [Time] 34.2 second(s) Normal 25.1-36.5 [facility] Comment on above: Result Comment: Para meter 15 days - 4 weeks 1 - 5 months 6 - 11 months 1 - 5 years 6 - 10 years 11 - 17 years PTT Mean: 35.4 (27.6-45.6) Mean: 33.5 (24.8-40.7) Mean: 32.4 (25.1-40.7) Mean: 31.6 (24.0-39.2) Mean: 31.6 (26.9-38.7) Mean: 31.0 (24.6-38.4) Pediatric Reference ranges were obtained from a study by Karlos Goyal et al. prepared from 1437 samples obtained at 7 different centers using the same coagulation reagent and instrumentation as [facility]. Currently there are no coagulation studies available worldwide for children to 14 days, and no normal ranges. Heparin therapeutic range (represented by Anti-Factor Xa activity of 0.2 - 0.4 U/mL) corresponds to PTT of 56.6 - 109.0 sec. Performed By: #### 2 837941, 23492889, 5787710, 36119826, 21899575 ####[facility] [address] [place] [address] INR Coag (PPP) [Relative time] 1.0 {INR} Invalid Interpretation Code [facility] Comment on above: Result Comment: INR results are specifically intended to assess patients stabilized on long-term Anticoagulation therapy suggested INR?s ?Less Intensive Anticoagulation? 2.0 ? 3.0 Conventional Range 3.0 ? 4.5 Performed By: #### 2 084178, 44965022, 5608506, 84387986, 74391923 ####[facility] [address] [place] [address] PT Coag (PPP) [Time] 10.9 second(s) Normal 9.4-12.5 [facility] Comment on above: Result Comment: 15 d ays - 4 weeks 1 - 5 months 6 -11 months 1 ? 5 years 6 ? 10 years 11 -17 years Mean: 11.2 (9.5 ? 12.6) Mean: 11.0 (9.7 ? 12.8) Mean: 11.0 (9.8 ? 13.0) Mean: 11.3 (9.9 ? 13.4) Mean: 11.7 (10.0 ? 14.6) Mean: 11.8 (10.0 - 14.1) Pediatric Reference ranges were obtained from a study by Karlos Goyal et al. prepared from 1437 samples obtained at 7 different centers using the same coagulation reagent and instrumentation as [facility]. Currently there are no coagulation studies available worldwide for children to 14 days, and no normal ranges. Performed By: #### 2 470507, 26347626, 3870077, 12594139, 17364597 ####[facility] [address] [place] [address] RAD - Preliminary Cat Scan R eporton 12-07-2023 RAD - Preliminary Cat Scan Report [id number] Normal [facility] Troponin 0 Hr.on 12-07-2023 Troponin 3.40 pg/mL Low 10.10-27.1 0 [facility] Comment on above: Result Comment: The 95% CI (Confidence Interval) PPV (Positive Predictive Value) for myocardial infarction in females is 38 pg/mL, in males 51 pg/mL. The results should be used in conjunction with clinical conditions of myocardial infarction. (Access High Sensitivity Troponin I Instructions For Use, [place], May 2018) Performed By: #### 2 586045, 96832646, 6666915, 36851395, 90337116 ####[facility] [address] [place] [address] Troponin 3 Hr.on 12-07-2023 Troponin 3.00 pg/mL Low 10.10-27.1 0 [facility] Comment on above: Result Comment: The 95% CI (Confidence Interval) PPV (Positive Predictive Value) for myocardial infarction in females is 38 pg/mL, in males 51 pg/mL. The results should be used in conjunction with clinical conditions of myocardial infarction. (Access High Sensitivity Troponin I Instructions For Use, [place], May 2018) Performed By: #### 1 3509817 ####[address] [address] Troponin 6 Hr.on 12-07-2023 Troponin 2.80 pg/mL Low 10.10-27.1 0 [facility] Comment on above: Result Comment: The 95% CI (Confidence Interval) PPV (Positive Predictive Value) for myocardial infarction in females is 38 pg/mL, in males 51 pg/mL. The results should be used in conjunction with clinical conditions of myocardial infarction. (Access High Sensitivity Troponin I Instructions For Use, [place], May 2018) Performed By: #### 1 [id number] ####[address] [address] UA With Cult Reflexon 2023 Bacteria LM Ql (Urine sed) TRACE Normal Trace [facility] Comment on above: Performed By: #### 1 7124379 ####[address] [address] Bilirubin Ql (U) Negative Normal Negative [facility] Comment on above: Performed By: #### 1 9847050 ####[facility] [address] [place] [address] Clarity (U) CLEAR Normal Clear [facility] Comment on above: Performed By: #### 1 7235340 ####[facility] [address] [place] [address] Color (U) YELLOW Normal Yellow [facility] Comment on above: Performed By: #### 1 3130182 ####[facility] [address] [place] [address] Crystals LM Ql (Urine sed) Present Normal [facility] Comment on above: Performed By: #### 1 4898026 ####[address] [address] Epithelial cells.squamous LM.HPF (Urine sed) [#/Area] 0-2 Normal 0-[address] [facility] Comment on above: Performed By: #### 1 0393263 ####[address] [address] Glucose Test strip (U) [Mass/Vol] Negative Normal Negative [facility] Comment on above: Performed By: #### 1 1265032 ####[address] [address] Hemoglobin Ql (U) TRACE Abnormal Negative [facility] Comment on above: Performed By: #### 1 0055160 ####[facility] [address] [place] [address] Ketones (U) [Mass/Vol] Negative Normal Negative Fi [facility] Comment on above: Performed By: #### 1 3853402 ####[address] [address] [place].plasma/[place] .RBC (Bld) [Mass ratio] 0-3 Normal 0-3 [facility] Comment on above: Performed By: #### 1 3636272 ####[facility] [address] [place] [address] Nitrite Ql (U) Negative Normal Negative [facility] Comment on above: Performed By: #### 1 1825684 ####[facility] [address] [place] [address] pH (U) 6.0 [pH] Invalid Interpretation Code 5.0-9.0 [facility] Comment on above: Performed By: #### 1 3927214 ####[facility] [address] [place] [address] Protein (U) [Mass/Vol] 3+ Abnormal Negative Fi [facility] Comment on above: Performed By: #### 1 7214564 ####[address] [address] Specific gravity (U) [Rel density] 1.020 Invalid Interpretation Code 1.005-1.03 0 [facility] Comment on above: Performed By: #### 1 2707434 ####[address] [address] Type of Urine collection method Clean Catch Normal [facility] Comment on above: Performed By: #### 1 4256444 ####[address] [address] Urobilinogen Qn (U) 0.2 {Jesu'U}/dL Normal 0.0-1.0 [facility] Comment on above: Performed By: #### 1 7430033 ####[address] [address] WBC Auto Ql (U) Negative Normal Negative [facility] Comment on above: Performed By: #### 1 1133661 ####[address] [address] WBC LM.HPF (Urine sed) [#/Area] 0-5 Normal 0-5 [facility] Comment on above: Performed By: #### 1 7877818 ####[facility] [address] [place] [address] Bacteria LM Ql (Urine sed) TRACE Normal Trace [facility] Comment on above: Performed By: #### 2 316195, 27877756 ####[address] [address] Bilirubin Ql (U) Negative Normal Negative [facility] Comment on above: Performed By: #### 2 205219, 05548803 ####[address] [place] [address] Clarity (U) CLEAR Normal Clear [facility] Comment on above: Performed By: #### 2 542330, 95383010 ####[facility] [address] [place] [address] Color (U) YELLOW Normal Yellow [facility] Comment on above: Performed By: #### 2 215143, 02670274 ####[facility] [address] [place] [address] Crystals LM Ql (Urine sed) Present Normal [facility] Comment on above: Performed By: #### 2 496228, 83566405 ####[address] [address] Epithelial cells.squamous LM.HPF (Urine sed) [#/Area] 3-4 Normal 0-[address] [facility] Comment on above: Performed By: #### 2 539890, 02972135 ####[address] [address] Fine Granular Casts LM Ql (Urine sed) 0-3 Normal [facility] Comment on above: Performed By: #### 2 300682, 40930897 ####[facility] [address] [place] [address] Glucose Test strip (U) [Mass/Vol] 2+ Abnormal Negative [facility] Comment on above: Performed By: #### 2 933457, 98470532 ####[facility] [address] [place] [address] Hemoglobin Ql (U) TRACE Abnormal Negative [facility] Comment on above: Performed By: #### 2 431354, 39344600 ####[facility] [address] [place] [address] Ketones (U) [Mass/Vol] Negative Normal Negative Fi [facility] Comment on above: Performed By: #### 2 790309, 92719357 ####[address] [address] [place].plasma/[place] .RBC (Bld) [Mass ratio] 0-3 Normal 0-3 [facility] Comment on above: Performed By: #### 2 281803, 72621575 ####[address] [address] Nitrite Ql (U) Negative Normal Negative [facility] Comment on above: Performed By: #### 2 924406, 42360447 ####[address] [address] pH (U) 5.5 [pH] Invalid Interpretation Code 5.0-9.0 [facility] Comment on above: Performed By: #### 2 491057, 75114898 ####[place] [address] Protein (U) [Mass/Vol] 3+ Abnormal Negative [facility] Comment on above: Performed By: #### 2 081932, 86068229 ####[place] [address] Specific gravity (U) [Rel density] 1.025 Invalid Interpretation Code 1.005-1.03 0 [facility] Comment on above: Performed By: #### 2 191205, 33866390 ####[place] [address] Type of Urine collection method Clean Catch Normal [facility] Comment on above: Performed By: #### 2 964688, 23995152 ####[address] [address] Urobilinogen Qn (U) 0.2 {Jesu'U}/dL Normal 0.0-1.0 [facility] Comment on above: Performed By: #### 2 448396, 76194966 ####[address] [address] WBC Auto Ql (U) Negative Normal Negative [facility] Comment on above: Performed By: #### 2 939628, 90944100 ####[address] [address] WBC casts LM.LPF (Urine sed) [#/Area] 0-[address] [facility] Comment on above: Performed By: #### 2 841168, 22838130 ####[facility] [address] [place] [address] WBC LM.HPF (Urine sed) [#/Area] 6-15 Abnormal 0-5 [facility] Comment on above: Performed By: #### 2 247337, 13272231 ####[facility] [address] [place] [address] URINALYSISOrdered By: Milton Williamson on 12-07-2023 Bacteria LM Ql (Urine sed) Trace /HPF Normal Trace/HPF [facility] UA Auto SS Bilirubin Ql (U) Negative (12/07/23 7:39 PM) Normal Negative [facility] UA Auto SS Clarity (U) Clear (12/07/23 7:39 PM) Normal Clear [facility] UA Auto SS Color (U) Yellow (12/07/23 7:39 PM) Normal Yellow [facility] UA Auto SS Crystals LM Ql (Urine sed) Present (12/07/23 7:39 PM) Normal [facility] UA Auto SS Epithelial cells.squamous LM.HPF (Urine sed) [#/Area] 0-2 /HPF Normal 0-2/HPF [facility] UA Aut o SS Glucose Test strip (U) [Mass/Vol] Negative (12/07/23 7:39 PM) Normal Negative [facility] UA Auto SS Hemoglobin Ql (U) Trace *ABN* (12/07/23 7:39 PM) Invalid Interpretation Code Negative [facility] UA Auto SS Ketones (U) [Mass/Vol] Negative (12/07/23 7:39 PM) Normal Negative [facility] UA Auto SS [place].plasma/[place] .RBC (Bld) [Mass ratio] 0-3 /HPF Normal 0-3/HPF [facility] UA Auto SS Nitrite Ql (U) Negative (12/07/23 7:39 PM) Normal Negative [facility] UA Auto SS pH (U) 6.0 *NA* (12/07/23 7:39 PM) Invalid Interpretation Code 5.0 - 9.0 [facility] UA Auto SS Protein (U) [Mass/Vol] 3+ *ABN* (12/07/23 7:39 PM) Invalid Interpretation Code Negative [facility] UA Auto SS Specific gravity (U) [Rel density] 1.020 *NA* (12/07/23 7:39 PM) Invalid Interpretation Code 1.005 - 1.030 [facility] UA Auto SS UA Spec Desc Clean Catch (12/07/23 7:39 PM) Normal [facility] UA Auto SS Urobilinogen Qn (U) 0.5417248 {Jesu'U}/dL Normal 0.0 - 1.0 EU/dL [facility] UA Auto SS WBC Auto Ql (U) Negative (12/07/23 7:39 PM) Normal Negative [facility] UA Auto SS WBC LM.HPF (Urine sed) [#/Area] 0-5 /HPF Normal 0-5/HPF [facility] UA Auto SS URINALYSISOrdered By: Neo Arriaga on 12-07-2023 Bacteria LM Ql (Urine sed) Trace /HPF Normal Trace/HPF [facility] UA Auto SS Bilirubin Ql (U) Negative (12/07/23 12:00 AM) Normal Negative [facility] UA Auto SS Clarity (U) Clear (12/07/23 12:00 AM) Normal Clear [facility] UA Auto SS Color (U) Yellow (12/07/23 12:00 AM) Normal Yellow [facility] UA Auto SS Crystals LM Ql (Urine sed) Present (12/07/23 12:00 AM) Normal [facility] UA Auto SS Epithelial cells.squamous LM.HPF (Urine sed) [#/Area] 3-4 /HPF Normal 0-2/HPF [facility] UA Aut o SS Fine Granular Casts LM Ql (Urine sed) 0-3 (12/07/23 12:00 AM) Normal [facility] UA Auto SS Glucose Test strip (U) [Mass/Vol] 2+ *ABN* (12/07/23 12:00 AM) Invalid Interpretation Code Negative [facility] UA Auto SS Hemoglobin Ql (U) Trace *ABN* (12/07/23 12:00 AM) Invalid Interpretation Code Negative [facility] UA Auto SS Ketones (U) [Mass/Vol] Negative (12/07/23 12:00 AM) Normal Negative [facility] UA Auto SS [place].plasma/[place] .RBC (Bld) [Mass ratio] 0-3 /HPF Normal 0-3/HPF [facility] UA Auto SS Nitrite Ql (U) Negative (12/07/23 12:00 AM) Normal Negative [facility] UA Auto SS pH (U) 5.5 *NA* (12/07/23 12:00 AM) Invalid Interpretation Code 5.0 - 9.0 [facility] UA Auto SS Protein (U) [Mass/Vol] 3+ *ABN* (12/07/23 12:00 AM) Invalid Interpretation Code Negative [facility] UA Auto SS Specific gravity (U) [Rel density] 1.025 *NA* (12/07/23 12:00 AM) Invalid Interpretation Code 1.005 - 1.030 [facility] UA Auto SS UA Spec Desc Clean Catch (12/07/23 12:00 AM) Normal [facility] UA Auto SS Urobilinogen Qn (U) [id number] {Jesu'U}/dL Normal 0.0 - 1.0 EU/dL [facility] UA Auto SS WBC Auto Ql (U) Negative (12/07/23 12:00 AM) Normal Negative [facility] UA Auto SS WBC casts LM.LPF (Urine sed) [#/Area] 0-3 (12/07/23 12:00 AM) Normal [facility] UA Auto SS WBC LM.HPF (Urine sed) [#/Area] 6-15 /HPF Invalid Interpretation Code 0-5/HPF [facility] UA Auto SS XR Chest Single Viewon 12-07 XR Chest Single View Exam Date/Time: 12/07/2023 16:24 EST Reason for Exam: Chest pain Report IMPRESSION: NO EVIDENCE OF ACTIVE CARDIOPULMONARY DISEASE, BY PORTABLE CHEST RADIOGRAPHY. EXAM: XR Chest Single View DATE: 12/07/2023 4:12 PM CLINICAL HISTORY: Chest pain. COMPARISON: CT abdomen and pelvis from earlier 12/07/2023. TECHNIQUE: A portable upright AP radiograph of the chest was obtained. FINDINGS: There is no significant pulmonary infiltrate, cardiomegaly, vascular congestion, sizable pleural effusion, pneumothorax, or displaced fractures identified. Ordering Provider: Fernando Espinoza FINAL REPORT Dictated: 12/07/2023 5:13 pm Daniel Sinha MD Signed (Electronic Signature): 12/07/2023 5:13 pm Signed by: Daniel Sinha MD Transcribed by: ORIN Technologist: MICHELLE Technical Comments Radiation Dose: Kar in mGy = na DAP = na Normal [facility] eGFRon 12-07-2023 eGFR 31 mL/min/1.73 m2 Low >=59 [facility] Comment on above: Order Comment: Order added by Discern Expert. Performed By: #### [id number] ####[facility] [id number] [place] [address] eGFROrdered By: SYSTEM SYSTE M on 12-07-2023 eGFR 29 mL/min/1.73 m2 Low >=59 [facility] Comment on above: Order Comment: Order added by Discern Expert. Performed By: #### [id number] ####[facility] [id number] [place] [address] Consent for Treatmenton Consent for Treatment [id number] Normal [facility] Activated partial thrombopla stin time (aPTT) in platelet poor plasma by coagulation aOrdered By: Noé Rose on 08-20-2023 aPTT Coag (PPP) [Time] 20.8 s 25.1-36.5 [facility] Comment on above: A hematocrit value g reater than 55% may lead to inaccurate results in coagulation testing. Patients having hematocrit values >55% require a special collection tube for coagulation studies. Please contact the laboratory at [phone] for redraw instructions. Alanine aminotransferase [En zymatic activity/volume] in Serum or PlasmaOrdered By: Noé Rose on 08-20-2023 ALT [Catalytic activity/Vol] 26 U/L 7-52 [facility] Albumin [Mass/volume] in Ser um or Plasma by Bromocresol green (BCG) dye binding methoOrdered By: Noé Rose on 08-20-2023 Albumin BCG dye [Mass/Vol] 3.6 g/dL 3.5-5.7 [facility] Alkaline phosphatase [Enzyma tic activity/volume] in Serum or PlasmaOrdered By: Noé Rose on 08-20-2023 ALP [Catalytic activity/Vol] 70 U/L 34-104 [facility] Aspartate aminotransferase [ Enzymatic activity/volume] in Serum or PlasmaOrdered By: Noé Rose on 08-20-2023 AST [Catalytic activity/Vol] 25 U/L 13-39 [facility] Automated erythrocytes count in urine sediment (number/area)Ordered By: Noé Rose on 08-20-2023 RBC Auto (Urine sed) [#/Area] 3-4 [HPF] 0-4 [facility] Automated leukocytes count i n urine sediment (number/area)Ordered By: Noé Rose on 08-20-2023 WBC Auto (Urine sed) [#/Area] 5-9 [HPF] 0-4 [facility] Basophils Auto (Bld) [#/Vol] Ordered By: Noé Rose on 08-20-2023 Basophils (Bld) [#/Vol] 0.1 10*3/uL 0.0-0.2 [facility] Basophils/100 WBC Auto (Bld) Ordered By: Noé Rose on 08-20-2023 Basophils/100 WBC (Bld) 1.1 % . [facility] Beta hydroxybutyrate [Moles/ volume] in Serum or PlasmaOrdered By: Noé Rose on 08-20-2023 Beta hydroxybutyrate [Moles/Vol] < 0.10 mmol/L 0.02-0.27 [facility] Bilirubin Test strip Ql (U)O rdered By: Noé Rose on 08-20-2023 Bilirubin Ql (U) Negative Negative [facility] Bilirubin.total [Mass/volume ] in Serum or PlasmaOrdered By: Noé Rose on 08-20-2023 Bilirubin [Mass/Vol] 0.4 mg/dL 0.3-1.0 [facility] COVID CepheidOrdered By: Rickey Rose on 08-20-2023 SARS-CoV-2 (COVID-19) Ab IA Ql Negative Negative [facility] Comment on above: This is a duplicate Explore[employer]To [employer] Xpert Xpress CoV-2/Flu/RSV Plus RNA by RT-PCR result to be used for statistical tracking purpose only. SARS-CoV-2 (COVID-19) RNA DANIEL+probe Ql (Unsp spec) [facility] Calcium [Mass/volume] in Ser um or PlasmaOrdered By: Noé Rose on 08-20-2023 Calcium [Mass/Vol] 9.1 mg/dL 8.6-10.3 [facility] Carbon dioxide, total [Moles /volume] in Serum or PlasmaOrdered By: Noé Rose on 08-20-2023 CO2 [Moles/Vol] 27.7 mmol/L 21.0-31.0 [facility] Chloride [Moles/volume] in S prabhjot or PlasmaOrdered By: Noé Rose on 08-20-2023 Chloride [Moles/Vol] 99 mmol/L 98-107 [facility] Color Auto (U)Ordered By: Enrike Rose on 08-20-2023 Color (U) Yellow Yellow [facility] Creatine kinase [Enzymatic a ctivity/volume] in Serum or PlasmaOrdered By: Noé Rose on 08-20-2023 CK [Catalytic activity/Vol] 42 U/L 30-223 [facility] Creatinine [Mass/volume] in Serum or PlasmaOrdered By: Noé Rose on 08-20-2023 Creatinine [Mass/Vol] 1.83 mg/dL 0.60-1.20 [facility] Eosinophils Auto (Bld) [#/Vo l]Ordered By: Noé Rose on 08-20-2023 Eosinophils (Bld) [#/Vol] 0.3 10*3/uL 0.0-0.45 [facility] Eosinophils/100 WBC Auto (Bl d)Ordered By: Noé Rose on 08-20-2023 Eosinophils/100 WBC (Bld) 3.2 % . [facility] Erythrocyte distribution wid th Auto (RBC) [Ratio]Ordered By: Noé Rose on 08-20-2023 Erythrocyte distribution width (RBC) [Ratio] 15.2 % 11.9-15.3 [facility] Globulin Calc (S) [Mass/Vol] Ordered By: Noé Rose on 08-20-2023 Globulin (S) [Mass/Vol] 3.7 g/dL [facility] Glucose Glucometer (BldC) [M ass/Vol]Ordered By: Noé Rose on 08-20-2023 Glucose [Mass/Vol] 150 mg/dL [facility] Comment on above: Random Glucose Refer ence Range is dependent on time and content of last meal. Glucose of more than 200 mg/dL in a nonstressed, ambulatory subject supports the diagnosis of Diabetes Mellitus. Glucose [Mass/volume] in Ser um or PlasmaOrdered By: Noé Rose on 08-20-2023 Glucose [Mass/Vol] 222 mg/dL 70-100 [facility] Comment on above: ADA recommended refe rence rangeRandom Glucose Reference Range is dependent on time and content of last meal. Glucose of more than 200 mg/dL in a nonstressed, ambulatory subject supports the diagnosis of Diabetes Mellitus. Hematocrit Auto (Bld) [Volum e fraction]Ordered By: Noé Rose on 08-20-2023 Hematocrit (Bld) [Volume fraction] 38.2 % 34.0-46.4 [facility] Hemoglobin [Mass/volume] in BloodOrdered By: Noé Rose on 08-20-2023 Hemoglobin (Bld) [Mass/Vol] 13.0 g/dL 11.8-15.4 [facility] INR in Platelet poor plasma by Coagulation assayOrdered By: Noé Rose on 08-20-2023 INR Coag (PPP) [Relative time] 0.9 {INR} [facility] Comment on above: INR Therapeutic Rang e A) Pre- and Peroperative OAT started two weeks before surgery. NOT HIP SURGERY: 1.5 - 2.5 HIP SURGERY: 2 - 3B) Primary and secondary prevention of venous THROMBOSIS: 2 - 3C) Active venous thrombosis, pulmonary embolismand prevention of recurrent venous thrombosis: 2 - 3D) Prevention of arterial thromboembolismincluding patients with mechanical heart valves: 3 - 4.5 Ketones Auto test strip (U) [Mass/Vol]Ordered By: Noé Rose on 08-20-2023 Ketones (U) [Mass/Vol] Negative Negative [facility] - UrinalysisOrder ed By: Noé Rose on 08-20-2023 Hyaline casts LM Ql (Urine sed) 0-8 [LPF] 0-8 [facility] Leukocytes [#/volume] correc marcos for nucleated erythrocytes in Blood by Automated counOrdered By: Noé Rose on 08-20-2023 WBC corrected for nucl RBC Auto (Bld) [#/Vol] 9.1 10*3/uL 3.8-11.6 [facility] Lymphocytes Auto (Bld) [#/Vo l]Ordered By: Noé Rose on 08-20-2023 Lymphocytes (Bld) [#/Vol] 1.8 10*3/uL 1.00-4.8 [facility] Lymphocytes/100 WBC Auto (Bl d)Ordered By: Noé Rose on 08-20-2023 Lymphocytes/100 WBC (Bld) 19.3 % . [facility] MCH Auto (RBC) [Entitic mass ]Ordered By: Noé Rose on 08-20-2023 MCH (RBC) [Entitic mass] 26.3 pg 24.7-34.3 [facility] MCHC Auto (RBC) [Mass/Vol]Or dered By: Noé Rose on 08-20-2023 MCHC (RBC) [Mass/Vol] 33.9 g/dL 32.0-35.0 [facility] MCV Auto (RBC) [Entitic vol] Ordered By: Noé Rose on 08-20-2023 MCV (RBC) [Entitic vol] 77.6 fL 80-100 [facility] Monocyte distribution width [Entitic volume] in Blood by AutomatedOrdered By: Noé Rose on 08-20-2023 Monocyte distribution width Auto (Bld) [Entitic vol] 20.00 % 0.00-20.00 [facility] Monocytes Auto (Bld) [#/Vol] Ordered By: Noé Rose on 08-20-2023 Monocytes (Bld) [#/Vol] 0.4 10*3/uL 0.0-0.8 [facility] Monocytes/100 WBC Auto (Bld) Ordered By: Noé Rose on 08-20-2023 Monocytes/100 WBC (Bld) 4.8 % . [facility] Neutrophils Auto (Bld) [#/Vo l]Ordered By: Noé Rose on 08-20-2023 Neutrophils (Bld) [#/Vol] 6.5 10*3/uL 1.8-7.7 [facility] Neutrophils/100 WBC Auto (Bl d)Ordered By: Noé Rose on 08-20-2023 Neutrophils/100 WBC (Bld) 71.6 % . [facility] Nitrite Test strip Ql (U)Ord ered By: Noé Rose on 08-20-2023 Nitrite Ql (U) Negative Negative [facility] No Panel InformationOrdered By: Noé Rose on 08-20-2023 Estimated GFR (CKD-EPI) 34.499 mL/Min [facility] Creatinine Clearance (Chem 59.28 [facility] No Panel InformationOrdered By: PROVIDER TEMP on 08-20-2023 Bedside Glucose Comment See comment [facility] Comment on above: Glu2: WILL NOTIFY /RN Nucleated erythrocytes [Pres ence] in Blood by Automated countOrdered By: Noé Rose on 08-20-2023 Nucleated RBC Auto Ql (Bld) 0.4 /100{WBC} 0-0.5 [facility] Platelet adequacy [Presence] in Blood by Light microscopyOrdered By: Noé Rose on 08-20-2023 Platelets LM Ql (Bld) Normal Normal [facility] Platelet mean volume Auto (B ld) [Entitic vol]Ordered By: Noé Rose on 08-20-2023 Platelet mean volume (Bld) [Entitic vol] 7.7 fL 6.3-10.7 [facility] Platelet morphology finding [Identifier] in BloodOrdered By: Noé Rose on 08-20-2023 Platelet morphology finding Nom (Bld) Normal Normal [facility] Platelets Auto (Bld) [#/Vol] Ordered By: Noé Rose on 08-20-2023 Platelets (Bld) [#/Vol] 226 10*3/uL 150-450 [facility] Potassium [Moles/volume] in Serum or PlasmaOrdered By: Noé Rose on 08-20-2023 Potassium [Moles/Vol] 4.2 mmol/L 3.5-5.1 [facility] Protein Auto test strip (U) [Mass/Vol]Ordered By: Noé Rose on 08-20-2023 Protein (U) [Mass/Vol] 300 mg/dL Negative [facility] Protein [Mass/volume] in Ser um or PlasmaOrdered By: Noé Rose on 08-20-2023 Protein [Mass/Vol] 7.3 g/dL 6.4-8.9 [facility] Prothrombin time (PT)Ordered By: Noé Rose on 08-20-2023 PT Coag (PPP) [Time] 11.2 s 9.0-12.9 [facility] Comment on above: A hematocrit value g reater than 55% may lead to inaccurate results in coagulation testing. Patients having hematocrit values >55% require a special collection tube for coagulation studies. Please contact the laboratory at [phone] for redraw instructions. RBC Auto (Bld) [#/Vol]Ordere d By: Noé Rose on 08-20-2023 RBC (Bld) [#/Vol] 4.93 10*6/uL 3.60-5.00 [facility] RBC morphologyOrdered By: Enrike Rose on 08-20-2023 RBC morphology finding Nom (Bld) Normal Normal [facility] Serum or plasma albumin/glob ulin mass ratioOrdered By: Noé Rose on 08-20-2023 Albumin/Globulin [Mass ratio] 1.0 {ratio} [facility] Serum or plasma anion gap de terminationOrdered By: Noé Rose on 08-20-2023 Anion gap [Moles/Vol] 11.5 mmol/L 6.0-15.0 [facility] Sodium [Moles/volume] in Ser um or PlasmaOrdered By: Noé Rose on 08-20-2023 Sodium [Moles/Vol] 134 mmol/L 136-145 [facility] Specific gravity Auto test s trip (U) [Rel density]Ordered By: Noé Rose on 08-20-2023 Specific gravity (U) [Rel density] 1.013 1.001-1.03 0 [facility] Squamous epithelial cells de tection in urine sediment by light microscopyOrdered By: Noé Rose on 08-20-2023 Epithelial cells.squamous LM Ql (Urine sed) 1-2 [HPF] 0-2 [facility] Troponin I.cardiac [Mass/vol ume] in Serum or Plasma by Detection limit <= 0.01 ng/Ordered By: Noé Rose on 08-20-2023 Troponin I.cardiac DL <= 0.01 ng/mL [Mass/Vol] < 2.3 pg/mL 0.0-15.0 [facility] Urea nitrogen [Mass/volume] in Serum or PlasmaOrdered By: Noé Rose on 08-20-2023 Urea nitrogen [Mass/Vol] 24 mg/dL 7-25 [facility] Urine bacteria detection by automated methodOrdered By: Noé Rose on 08-20-2023 Bacteria Auto Ql (U) 1+ None Seen [facility] Urine clarity by refractomet ry automatedOrdered By: Noé Rose on 08-20-2023 Clarity Refractometry automated (U) Clear Clear [facility] Urine glucose measurement by automated test strip (mass/volume)Ordered By: Noé Rose on 08-20-2023 Glucose Auto test strip (U) [Mass/Vol] Normal mg/dL Normal [facility] Urine hemoglobin detection b y automated test stripOrdered By: Noé Rose on 08-20-2023 Hemoglobin Auto test strip Ql (U) Negative Negative [facility] Urine leukocyte esterase det ection by automated test stripOrdered By: Noé Rose on 08-20-2023 Leukocyte esterase Auto test strip Ql (U) Negative Negative [facility] Urobilinogen Auto test strip (U) [Mass/Vol]Ordered By: Noé Rose on 08-20-2023 Urobilinogen (U) [Mass/Vol] Normal mg/dL Normal [facility] WBC Auto (Bld) [#/Vol]Ordere d By: Noé Rose on 08-20-2023 WBC (Bld) [#/Vol] 10.4 10*3/uL 3.8-11.6 [facility] pH Auto test strip (U)Ordere d By: Noé Rose on 08-20-2023 pH (U) 6.0 [pH] 5.0-9.0 [facility] NM GASTRIC EMPTYon 3 NM GASTRIC EMPTY EXAMINATION: NM FRANSISCO TSERING EMPTY HISTORY: Cyclical vomiting syndrome ; abdominal pain, nausea and vomiting after eating COMPARISON: No relevant comparison available. TECHNIQUE: The patient ingested 0.9 mCi Tc-99m sulfur colloid mixed with egg. Anterior and posterior images were obtained at one minute intervals. Data were acquired for plotting and determination of gastric emptying. FINDINGS: STOMACH: Normal appearance. Gastric retention: 88% at 30 minutes 30% at 1 hour 9% at 2 hours IMPRESSION: 1. Normal gastric emptying. Electronically authenticated by: CARYN DOYLE Date: 2023-03-06 10:05 Normal [facility] CHEMISTRYOrdered By: SYSTEM SYSTEM on 01-19-2023 Albumin [Mass/Vol] 3.7 g/dL Normal 3.3 - 5.0 gm/dL [facility] Remisol Albumin/Globulin [Mass ratio] 0.9 {ratio} Low 1.1 - 2.2 [facility] ALP [Catalytic activity/Vol] 76 [iU]/d Normal 21 - 98 Int._Unit/ L [facility] ALT No additional P-5'-P [Catalytic activity/Vol] 27 [iU]/d Normal 6 - 46 Int._Unit/ L [facility] Anion gap [Moles/Vol] 12 mmol/L Normal 6 - 16 mEq/L [facility] AST [Catalytic activity/Vol] 25 [iU]/d Normal 5 - 43 Int._Unit/ L [facility] Bilirubin [Mass/Vol] 0.5 mg/dL Normal 0.0 - 1 .1 mg/dL [facility] Bilirubin.direct [Mass/Vol] 0.1 mg/dL Normal 0.1 - 0.4 mg/dL [facility] Bilirubin.indirect [Mass or moles/Vol] 0.4 mg/dL Normal 0.1 - 0.9 mg/dL [facility] Calcium [Mass/Vol] 9.3 mg/dL Normal 8.9 - 11. 1 mg/dL [facility] Chloride [Moles/Vol] 100 mmol/L Low 101 - 1 11 mmol/L [facility] CO2 [Moles/Vol] 25 mmol/L Normal 21 - 31 mmol/L [facility] Creatinine [Mass/Vol] 1.8 mg/dL High 0.5 - 1.3 mg/dL [facility] GFR/1.73 sq M.predicted among blacks MDRD (S/P/Bld) [Vol rate/Area] 37 mL/min/1.73 m2 Low >=59mL/min /1.73 m2 [facility] Chem S GFR/1.73 sq M.predicted among non-blacks MDRD (S/P/Bld) [Vol rate/Area] 31 mL/min/1.73 m2 Low >=59mL/min /1.73 m2 [facility] Chem S Globulin (S) [Mass/Vol] 4.2 g/dL High 1.4 - 4.0 gm/dL [facility] Glucose [Mass/Vol] 219 mg/dL High 55 - 199 mg/dL [facility] Lipase [Catalytic activity/Vol] 34 U/L Normal 13 - 58 unit/L [facility] Potassium [Moles/Vol] 4.3 mmol/L Normal 3.5 - 5.3 mmol/L [facility] Protein [Mass/Vol] 7.9 g/dL High 6.0 - 7.8 gm/dL [facility] Sodium [Moles/Vol] 133 mmol/L Low 135 - 145 mmol/L [facility] Urea nitrogen [Mass/Vol] 27 mg/dL High 5 - 21 mg/dL [facility] Urea nitrogen/Creatinine [Mass ratio] 15 mg/mg Normal 10 - 20 [facility] HEMATOLOGYOrdered By: SYSTEM SYSTEM on 01-19-2023 Basophils/100 WBC (Bld) 0.8 % Normal 0.0 - 2.0 % [facility] HemeAutoSS Basophils/Leukocytes Auto (Bld) [Pure # fraction] 0.1 E9/L Normal 0.0 - 0.2 E9/L [facility] HemeAutoSS Eosinophils/100 WBC (Bld) 2.1 % Normal 0.0 - 8.0 % [facility] HemeAutoSS Eosinophils/Leukocytes Auto (Bld) [Pure # fraction] 0.2 E9/L Normal 0.0 - 0.5 E9/L [facility]eAutoSS Lymphocytes/100 WBC (Bld) 16.1 % Normal 14.0 - 50.0 % [facility] HemeAutoSS Lymphocytes/Leukocytes Auto (Bld) [Pure # fraction] 1.3 E9/L Normal 1.0 - 4.0 E9/L [facility] HemeAutoSS Monocytes/100 WBC (Bld) 4.7 % Normal 4.0 - 14.0 % [facility] HemeAutoSS Monocytes/Leukocytes Auto (Bld) [Pure # fraction] 0.4 E9/L Normal 0.2 - 1.0 E9/L [facility]eAutoSS Neutrophils/100 WBC (Bld) 76.3 % High 36.0 - 75.0 % [facility] HemeAutoSS Neutrophils/Leukocytes Auto (Bld) [Pure # fraction] 6.3 E9/L Normal 2.0 - 7.5 E9/L [facility] HemeAutoSS HEMATOLOGYOrdered By: Carmela Lloyd on 01-19-2023 Erythrocyte distribution width (RBC) [Ratio] 15.5 % High 10.9 - 14.2 % [facility] HemeAutoSS Hematocrit (Bld) [Volume fraction] 40.2 % Normal 34.0 - 46.0 % [facility] HemeAutoSS Hemoglobin (Bld) [Mass/Vol] 13.2 g/dL Normal 12.0 - 16.0 gm/dL [facility]eAutoSS MCH (RBC) [Entitic mass] 24.9 pg Low 27.0 - 34.0 pg [facility]eAutoSS MCHC (RBC) [Mass/Vol] 32.7 g/dL Normal 31.4 - 36.0 gm/dL [facility]eAutoSS MCV (RBC) [Entitic vol] 76.2 fL Low 80.0 - 100.0 fL [facility]eAutoSS Platelet mean volume (Bld) [Entitic vol] 7.0 fL Normal 6.4 - 10.8 fL [facility]eAutoSS Platelets (Bld) [#/Vol] 264.0 E9/L Normal 150.0 - 500.0 E9/L [facility]eAutoSS RBC (Bld) [#/Vol] 5.3 E12/L Normal 4.3 - 5.9 E12/L [facility]eAutoSS WBC corrected for nucl RBC Auto (Bld) [#/Vol] 8.3 E9/L Normal 4.0 - 11.0 E9/L [facility]eAutoSS SEROLOGYOrdered By: Althea larry on 01-19-2023 Beta hCG Ql Negative (01/19/23 10:11 AM) Normal [facility] URINALYSISOrdered By: Althea Cespedes on 01-19-2023 Bacteria LM Ql (Urine sed) Trace /HPF Normal Trace/HPF [facility] UA Auto SS Bilirubin Ql (U) Negative (01/19/23 10:44 AM) Normal Negative [facility] UA Auto SS Clarity (U) Clear (01/19/23 10:44 AM) Normal Clear [facility] UA Auto SS Color (U) Yellow (01/19/23 10:44 AM) Normal Yellow [facility] UA Auto SS Epithelial cells.squamous LM.HPF (Urine sed) [#/Area] 3-4 /HPF Normal 0-2/HPF [facility] UA Aut o SS Glucose Test strip (U) [Mass/Vol] Negative (01/19/23 10:44 AM) Normal Negative [facility] UA Auto SS Hemoglobin Ql (U) Trace *ABN* (01/19/23 10:44 AM) Invalid Interpretation Code Negative [facility] UA Auto SS Ketones (U) [Mass/Vol] Negative (01/19/23 10:44 AM) Normal Negative [facility] UA Auto SS [place].plasma/[place] .RBC (Bld) [Mass ratio] 0-3 /HPF Normal 0-3/HPF [facility] UA Auto SS Nitrite Ql (U) Negative (01/19/23 10:44 AM) Normal Negative [facility] UA Auto SS pH (U) 6.0 *NA* (01/19/23 10:44 AM) Invalid Interpretation Code 5.0 - 9.0 [facility] UA Auto SS Protein (U) [Mass/Vol] 3+ *ABN* (01/19/23 10:44 AM) Invalid Interpretation Code Negative [facility] UA Auto SS Specific gravity (U) [Rel density] 1.025 *NA* (01/19/23 10:44 AM) Invalid Interpretation Code 1.005 - 1.030 [facility] UA Auto SS UA Spec Desc Clean Catch (01/19/23 10:44 AM) Normal [facility] UA Auto SS Urobilinogen Qn (U) 0.0877506 {Jesu'U}/dL Normal 0.0 - 1.0 EU/dL [facility] UA Auto SS WBC Auto Ql (U) Negative (01/19/23 10:44 AM) Normal Negative [facility] UA Auto SS WBC LM.HPF (Urine sed) [#/Area] 0-5 /HPF Normal 0-5/HPF [facility] UA Auto SS Activated partial thrombopla stin time (aPTT) in platelet poor plasma by coagulation aOrdered By: Ham Castano on 08-20-2022 aPTT Coag (PPP) [Time] 33.1 s 25.1-36.5 [facility] Albumin [Mass/volume] in Ser um or PlasmaOrdered By: Ham Castano on 08-20-2022 Albumin [Mass/Vol] 4.0 g/dL 3.2-5.5 [facility] Automated erythrocytes count in urine sediment (number/area)Ordered By: Ham Castano on 08-20-2022 RBC Auto (Urine sed) [#/Area] 1-2 [HPF] 0-4 [facility] Automated leukocytes count i n urine sediment (number/area)Ordered By: Ham Castano on 08-20-2022 WBC Auto (Urine sed) [#/Area] 10-19 [HPF] 0-4 [facility] Automated urine hyaline cast s count (number/volume)Ordered By: Ham Castano on 08-20-2022 Hyaline casts Auto (U) [#/Vol] None seen [LPF] 0-1 [facility] Basophils Auto (Bld) [#/Vol] Ordered By: Ham Castano on 08-20-2022 Basophils (Bld) [#/Vol] 0.1 10*3/uL 0.0-0.2 [facility] Basophils/100 WBC Auto (Bld) Ordered By: Ham Castano on 08-20-2022 Basophils/100 WBC (Bld) 0.9 % . [facility] Bilirubin Test strip Ql (U)O rdered By: Ham Castano on 08-20-2022 Bilirubin Ql (U) Negative Negative [facility] Casts typing in urine sedime nt by light microscopyOrdered By: Ham Castano on 08-20-2022 Casts LM Nom (Urine sed) None seen [LPF] None Seen [facility] Color Auto (U)Ordered By: Bro Castano on 08-20-2022 Color (U) Yellow Yellow [facility] Creatinine and Glomerular fi ltration rate.predicted panel (S/P/Bld)Ordered By: Ham Castano on 08-20-2022 Creatinine [Mass/Vol] 3.11 mg/dL 0.44-1.03 [facility] Direct bilirubin measurement Ordered By: Ham Castano on 08-20-2022 Bilirubin.direct [Mass/Vol] mg/dL 0.0-0.4 [facility] Eosinophils Auto (Bld) [#/Vo l]Ordered By: Ham Castano on 08-20-2022 Eosinophils (Bld) [#/Vol] 0.2 10*3/uL 0.0-0.45 [facility] Eosinophils/100 WBC Auto (Bl d)Ordered By: Ham Castano on 08-20-2022 Eosinophils/100 WBC (Bld) 1.7 % . [facility] Erythrocyte distribution wid th Auto (RBC) [Ratio]Ordered By: Ham Castano on 08-20-2022 Erythrocyte distribution width (RBC) [Ratio] 15.1 % 11.9-15.3 [facility] Estimated glomerular filtrat ion rate (GFR) non- AmericanOrdered By: Ham Castano on 08-20-2022 GFR/1.73 sq M.predicted among non-blacks MDRD (S/P/Bld) [Vol rate/Area] 16 mL/Min [facility] Globulin Calc (S) [Mass/Vol] Ordered By: Ham Castano on 08-20-2022 Globulin (S) [Mass/Vol] 4.2 g/dL [facility] HCG ( test) IA.rapi d Ql (U)Ordered By: Ham Castano on 08-20-2022 HCG ( test) Ql (U) Negative [facility] Hematocrit Auto (Bld) [Volum e fraction]Ordered By: Ham Castano on 08-20-2022 Hematocrit (Bld) [Volume fraction] 41.5 % 34.0-46.4 [facility] Hemoglobin [Mass/volume] in BloodOrdered By: Ham Castano on 08-20-2022 Hemoglobin (Bld) [Mass/Vol] 13.6 g/dL 11.8-15.4 [facility] Ketones Auto test strip (U) [Mass/Vol]Ordered By: Ham Castano on 08-20-2022 Ketones (U) [Mass/Vol] Trace Negative [facility] - Chemistry and C hemistry - challengeOrdered By: Ham Castano on 08-20-2022 Lipase [Catalytic activity/Vol] 36.0 U/L [facility] Laboratory - CoagulationOrde red By: Ham Castano on 08-20-2022 PT Coag (PPP) [Time] 12.1 s 9.0-12.9 [facility] - Hematology and Cell countsOrdered By: Ham Castano on 08-20-2022 Nucleated RBC/100 WBC (Bld) [Ratio] 0.2 % 0-0.5 [facility] Leukocytes [#/volume] in Blo od by Automated countOrdered By: Ham Castano on 08-20-2022 WBC (Bld) [#/Vol] 10.4 10*3/uL 4.5-11.0 [facility] Lymphocytes Auto (Bld) [#/Vo l]Ordered By: Ham Castano on 08-20-2022 Lymphocytes (Bld) [#/Vol] 2.1 10*3/uL 1.00-4.8 [facility] Lymphocytes/100 WBC Auto (Bl d)Ordered By: Ham Castano on 08-20-2022 Lymphocytes/100 WBC (Bld) 20.6 % . [facility] MCH Auto (RBC) [Entitic mass ]Ordered By: Ham Castano on 08-20-2022 MCH (RBC) [Entitic mass] 26.2 pg 24.7-34.3 [facility] MCHC Auto (RBC) [Mass/Vol]Or dered By: Ham Castano on 08-20-2022 MCHC (RBC) [Mass/Vol] 32.7 g/dL 32.0-35.0 [facility] MCV Auto (RBC) [Entitic vol] Ordered By: Ham Castano on 08-20-2022 MCV (RBC) [Entitic vol] 80.0 fL 80-100 [facility] Monocytes Auto (Bld) [#/Vol] Ordered By: Ham Castano on 08-20-2022 Monocytes (Bld) [#/Vol] 0.6 10*3/uL 0.0-0.8 [facility] Monocytes/100 WBC Auto (Bld) Ordered By: Ham Castano on 08-20-2022 Monocytes/100 WBC (Bld) 5.3 % . [facility] Neutrophils Auto (Bld) [#/Vo l]Ordered By: Ham Castano on 08-20-2022 Neutrophils (Bld) [#/Vol] 7.4 10*3/uL 1.8-7.7 [facility] Neutrophils/100 WBC Auto (Bl d)Ordered By: aHm Castano on 08-20-2022 Neutrophils/100 WBC (Bld) 71.5 % . [facility] Nitrite Test strip Ql (U)Ord ered By: Ham Castano on 08-20-2022 Nitrite Ql (U) Negative Negative [facility] No Panel InformationOrdered By: Ham Castano on 08-20-2022 Estimated GFR () 20 mL/Min [facility] Comment on above: GFR estimated refere nce range: According to KDOQI guidelines, <60 ml/min/1.73m2 is sufficient to diagnose a patient with chronic kidney disease. Pharmacy Creatinine Clearance (Chem 34.64 [facility] Platelet mean volume Auto (B ld) [Entitic vol]Ordered By: Ham Castano on 08-20-2022 Platelet mean volume (Bld) [Entitic vol] 7.2 fL 6.3-10.7 [facility] Platelet poor plasma interna tional normalized ratio (INR) by coagulation assay (relatOrdered By: Ham Castano on 08-20-2022 INR Coag (PPP) [Relative time] 1.1 {INR} [facility] Comment on above: INR Therapeutic Rang e A) Pre- and Peroperative OAT started two weeks before surgery. NOT HIP SURGERY: 1.5 - 2.5 HIP SURGERY: 2 - 3B) Primary and secondary prevention of venous THROMBOSIS: 2 - 3C) Active venous thrombosis, pulmonary embolismand prevention of recurrent venous thrombosis: 2 - 3D) Prevention of arterial thromboembolismincluding patients with mechanical heart valves: 3 - 4.5 Platelets Auto (Bld) [#/Vol] Ordered By: Ham Castano on 08-20-2022 Platelets (Bld) [#/Vol] 342 10*3/uL 150-450 [facility] Protein Auto test strip (U) [Mass/Vol]Ordered By: Ham Castano on 08-20-2022 Protein (U) [Mass/Vol] 100 mg/dL Negative [facility] Protein [Mass/volume] in Ser um or PlasmaOrdered By: Ham Castano on 08-20-2022 Protein [Mass/Vol] 8.2 g/dL 6.1-7.9 [facility] RBC Auto (Bld) [#/Vol]Ordere d By: Ham Castano on 08-20-2022 RBC (Bld) [#/Vol] 5.19 10*6/uL 3.60-5.00 [facility] Serum or plasma alanine pfeiffer otransferase measurement without P-5'-P (enzymatic activiOrdered By: Ham Castano on 08-20-2022 ALT No additional P-5'-P [Catalytic activity/Vol] 22 U/L [facility] Serum or plasma albumin/glob ulin mass ratioOrdered By: Ham Castano on 08-20-2022 Albumin/Globulin [Mass ratio] 1.0 {ratio} [facility] Serum or plasma alkaline julien sphatase measurement (enzymatic activity/volume)Ordered By: Ham Castano on 08-20-2022 ALP [Catalytic activity/Vol] 72 U/L 32-92 [facility] Serum or plasma anion gap de terminationOrdered By: Ham Castano on 08-20-2022 Anion gap [Moles/Vol] 15.0 mmol/L 6.0-15.0 [facility] Serum or plasma aspartate am inotransferase measurement (enzymatic activity/volume)Ordered By: Ham Castano on 08-20-2022 AST [Catalytic activity/Vol] 18 U/L [facility] Serum or plasma calcium darryn urement (mass/volume)Ordered By: Ham Castano on 08-20-2022 Calcium [Mass/Vol] 9.9 mg/dL 8.2-10.2 [facility] Serum or plasma chloride anil surement (moles/volume)Ordered By: Ham Castano on 08-20-2022 Chloride [Moles/Vol] 102 mmol/L 95-114 [facility] Serum or plasma glucose darryn urement (mass/volume)Ordered By: Ham Castano on 08-20-2022 Glucose [Mass/Vol] 126 mg/dL 70-100 [facility] Comment on above: ADA recommended refe rence rangeRandom Glucose Reference Range is dependent on time and content of last meal. Glucose of more than 200 mg/dL in a nonstressed, ambulatory subject supports the diagnosis of Diabetes Mellitus. Serum or plasma non-glucuron idated bilirubin measurement (mass/volume)Ordered By: Ham Castano on 08-20-2022 Bilirubin.indirect [Mass/Vol] TNP [facility] Comment on above: Test not performed Serum or plasma potassium me asurement (moles/volume)Ordered By: Ham Castano on 08-20-2022 Potassium [Moles/Vol] 4.0 mmol/L 3.5-5.1 [facility] Serum or plasma sodium measu rement (moles/volume)Ordered By: Ham Castano on 08-20-2022 Sodium [Moles/Vol] 137 mmol/L 136-146 [facility] Serum or plasma total biliru bin measurement (mass/volume)Ordered By: Ham Castano on 08-20-2022 Bilirubin [Mass/Vol] 0.6 mg/dL 0.3-1.2 [facility] Serum or plasma total carbon dioxide measurement (moles/volume)Ordered By: Ham Castano on 08-20-2022 CO2 [Moles/Vol] 24.0 mmol/L 22.0-30.0 [facility] Serum or plasma urea nitroge n measurement (mass/volume)Ordered By: Ham Castano on 08-20-2022 Urea nitrogen [Mass/Vol] 38 mg/dL 07-21 [facility] Specific gravity Auto test s trip (U) [Rel density]Ordered By: Ham Castano on 08-20-2022 Specific gravity (U) [Rel density] 1.020 1.001-1.03 0 [facility] Squamous epithelial cells de tection in urine sediment by light microscopyOrdered By: Ham Castano on 08-20-2022 Epithelial cells.squamous LM Ql (Urine sed) 5-9 [HPF] 0-2 [facility] Urine bacteria detection by automated methodOrdered By: Ham Castano on 08-20-2022 Bacteria Auto Ql (U) 1+ None Seen [facility] Urine clarity by refractomet ry automatedOrdered By: Ham Castano on 08-20-2022 Clarity Refractometry automated (U) Clear Clear [facility] Urine glucose measurement by automated test strip (mass/volume)Ordered By: Ham Castano on 08-20-2022 Glucose Auto test strip (U) [Mass/Vol] >=1000 mg/dL Normal [facility] Urine hemoglobin detection b y automated test stripOrdered By: Ham Castano on 08-20-2022 Hemoglobin Auto test strip Ql (U) Negative Negative [facility] Urine leukocyte esterase det ection by automated test stripOrdered By: Ham Castano on 08-20-2022 Leukocyte esterase Auto test strip Ql (U) 1+ Negative [facility] Urobilinogen Auto test strip (U) [Mass/Vol]Ordered By: Ham Castano on 08-20-2022 Urobilinogen (U) [Mass/Vol] Normal mg/dL Normal [facility] pH Auto test strip (U)Ordere d By: Ham Castano on 08-20-2022 pH (U) 5.5 [pH] 5.0-9.0 [facility] CBC AUTO DIFFon 08-14-2022 BASO # 0.0 103/ul Normal 0.0-0.1 [facility] Comment on above: Performed By: #### C BC #### [facility] [address] [place] [address] Dr. Carolann Palomino Basophils/100 WBC (Bld) 0.3 % Normal 0.2-2.0 [facility] Comment on above: Performed By: #### C BC #### [facility] [address] [place] [address] Dr. Carolann Palomino EO # 0.2 103/ul Normal 0.0-0.7 [facility] Comment on above: Performed By: #### C BC #### [facility] [address] [place] [address] Dr. Carolann Palomino Eosinophils/100 WBC (Bld) 2.3 % Normal 0.9-7.0 [facility] Comment on above: Performed By: #### C BC #### [facility] [address] [place] [address] Dr. Carolann Palomino Erythrocyte distribution width (RBC) [Ratio] 14.9 % Normal 11.0-15.0 [facility] Comment on above: Performed By: #### C BC #### [facility] [address] [place] [address] Dr. Carolann Palomino Hematocrit (Bld) [Volume fraction] 40.5 % Normal 36.0-48.0 [facility] Comment on above: Performed By: #### C BC #### [facility] [address] [place] [address] Dr. Carolann Palomino Hemoglobin (Bld) [Mass/Vol] 12.8 g/dL Normal 12.0-16.0 [facility] Comment on above: Performed By: #### C BC #### [facility] [address] [place] [address] Dr. Carolann Palomino IG # 0.01 10e3/ul Normal 0.00-0.03 [facility] Comment on above: Performed By: #### C BC #### [facility] [address] [place] [address] Dr. Carolann Palomino IG % 0.1 % Normal 0.0-0.5 [facility] Comment on above: Performed By: #### C BC #### [facility] [address] [place] [address] Dr. Carolann Palomino LYMPH # 1.2 103/ul Normal 1.2-3.8 [facility] Comment on above: Performed By: #### C BC #### [facility] [address] [place] [address] Dr. Carolann Palomino Lymphocytes/100 WBC (Bld) 17.6 % Critically low 20.5-60.0 [facility] Comment on above: Performed By: #### C BC #### [facility] [address] [place] [address] Dr. Carolann Palomino MANUAL DIFF REQ NO Normal [facility] Comment on above: Performed By: #### C BC #### [facility] [address] [place] [address] Dr. Carolann Palomino MCH (RBC) [Entitic mass] 26.3 pg Critically low 26.7-34.0 [facility] Comment on above: Performed By: #### C BC #### [facility] [address] [place] [address] Dr. Carolann Palomino MCHC (RBC) [Mass/Vol] 31.6 g/dL Normal 29.9-35.2 [facility] Comment on above: Performed By: #### C BC #### [facility] [address] [place] [address] Dr. Carolann Palomino MCV (RBC) [Entitic vol] 83.3 fL Normal 81.0-99.0 [facility] Comment on above: Performed By: #### C BC #### [facility] [address] [place] [address] Dr. Carolann Palomino MONO # 0.4 103/ul Normal 0.3-0.8 [facility] Comment on above: Performed By: #### C BC #### [facility] [address] [place] [address] Dr. Carolann Palomino Monocytes/100 WBC (Bld) 5.8 % Normal 1.7-12.0 [facility] Comment on above: Performed By: #### C BC #### [facility] [address] [place] [address] Dr. Carolann Palomino NEUT # 5.1 103/ul Normal 1.4-6.5 [facility] Comment on above: Performed By: #### C BC #### [facility] [address] [place] [address] Dr. Carolann Palomino Neutrophils/100 WBC (Bld) 73.9 % Normal 43.0-75.0 [facility] Comment on above: Performed By: #### C BC #### [facility] [address] [place] [address] Dr. Carolann Palomino Platelet mean volume (Bld) [Entitic vol] 9.2 fL Critically low 9.5-13.5 [facility] Comment on above: Performed By: #### C BC #### [facility] [address] [place] [address] Dr. Carolann Palomino PLT 226 103/ul Normal 150-450 [facility] Comment on above: Performed By: #### C BC #### [facility] [address] [place] [address] Dr. Carolann Palomino RBC 4.86 106/ul Normal 4.20-5.40 [facility] Comment on above: Performed By: #### C BC #### [facility] [address] [place] [address] Dr. Carolann Palomino WBC 7.0 103/ul Normal 4.0-11.0 [facility] Comment on above: Performed By: #### C BC #### [facility] [address] [place] [address] Dr. Carolann Palomino PROF 14(COMP METB)on 022 Albumin [Mass/Vol] 3.6 g/dL Normal 3.4-5.0 [facility] Comment on above: Performed By: #### C MP #### [facility] [address] [place] [address] Dr. Carolann Palomino Albumin/Globulin [Mass ratio] 0.9 {ratio} Normal [facility] Comment on above: Performed By: #### C MP #### [facility] [address] [place] [address] Dr. Carolann Palomino ALP [Catalytic activity/Vol] 78 U/L Normal 46-116 [facility] Comment on above: Performed By: #### C MP #### [facility] [address] [place] [address] Dr. Carolann Palomino ALT [Catalytic activity/Vol] 28 U/L Normal 14-59 [facility] Comment on above: Performed By: #### C MP #### [facility] [address] [place] [address] Dr. Carolann Palomino Anion gap [Moles/Vol] 10.9 mmol/L Normal [facility] Comment on above: Performed By: #### C MP #### [facility] [address] [place] [address] Dr. Carolann Palomino AST [Catalytic activity/Vol] 14 U/L Critically low 15-37 [facility] Comment on above: Performed By: #### C MP #### [facility] [address] [place] [address] Dr. Carolann Palomino Bilirubin [Mass/Vol] 0.3 mg/dL Normal 0.2-1.0 [facility] Comment on above: Performed By: #### C MP #### [facility] [address] [address] [address] Carolann Palomino Calcium [Mass/Vol] 9.0 mg/dL Normal 8.5-10.1 [facility] Comment on above: Performed By: #### C MP #### [facility] [address] [address] [address] Carolann Palomino Chloride [Moles/Vol] 104 mmol/L Normal 98-107 [facility] Comment on above: Performed By: #### C MP #### [facility] [address] [address] [address] Carolann Palomino CO2 [Moles/Vol] 26.9 mmol/L Normal 21.0-32.0 [facility] Comment on above: Performed By: #### C MP #### [facility] [address] [address] [address] Carolann Palomino Creatinine [Mass/Vol] 2.81 mg/dL Critically high 0.55-1.02 [facility] Comment on above: Performed By: #### C MP #### [facility] [address] [address] [address] Carolann Palomino EGFR-AF TUVALUAN 22 mL/min/1.73m2 Critically low >=60 [facility] Comment on above: Performed By: #### C MP #### [facility] [address] [address] [address] Carolann Palomino EGFR-NON AF TUVALUAN 18 mL/min/1.73m2 Critically low >=60 [facility] Comment on above: Performed By: #### C MP #### [facility] [address] [address] [address] Carolann Palomino Globulin (S) [Mass/Vol] 4.0 g/dL Normal [facility] Comment on above: Performed By: #### C MP #### [facility] [address] [address] [address] Carolann Palomino Glucose [Mass/Vol] 190 mg/dL Critically high 74-[address] [facility] Comment on above: Performed By: #### C MP #### [facility] [address] [address] [address] Carolann Palomino Potassium [Moles/Vol] 4.8 mmol/L Normal 3.5-5.1 [facility] Comment on above: Performed By: #### C MP #### [facility] [address] [address] [address] Carolann Palomino Protein [Mass/Vol] 7.6 g/dL Normal 6.4-8.2 [facility] Comment on above: Performed By: #### C MP #### [facility] [address] [address] [address] Carolann Palomino Sodium [Moles/Vol] 137 mmol/L Normal 136-145 [facility] Comment on above: Performed By: #### C MP #### [facility] [address] [place] [address] Dr. Carolann Palomino Urea nitrogen [Mass/Vol] 41.0 mg/dL Critically high 7.0-18.0 [facility] Comment on above: Performed By: #### C MP #### [facility] [address] [place] [address] Dr. Carolann Palomino Urea nitrogen/Creatinine [Mass ratio] 14.6 mg/mg Normal [facility] Comment on above: Performed By: #### C MP #### [facility] [address] [place] [address] Dr. Carolann Palomino CBC AUTO DIFFon 07-30-2022 BASO # 0.0 103/ul Normal 0.0-0.1 [facility] Comment on above: Performed By: #### C BC #### [facility] [address] [place] [address] Dr. Carolann Palomino Basophils/100 WBC (Bld) 0.5 % Normal 0.2-2.0 [facility] Comment on above: Performed By: #### C BC #### [facility] [address] [place] [address] Dr. Carolann Palomino EO # 0.2 103/ul Normal 0.0-0.7 [facility] Comment on above: Performed By: #### C BC #### [facility] [address] [place] [address] Dr. Carolann Palomino Eosinophils/100 WBC (Bld) 2.8 % Normal 0.9-7.0 [facility] Comment on above: Performed By: #### C BC #### [facility] [address] [place] [address] Dr. Carolann Palomino Erythrocyte distribution width (RBC) [Ratio] 15.1 % Critically high 11.0-15.0 [facility] Comment on above: Performed By: #### C BC #### [facility] [address] [place] [address] Dr. Carolann Palomino Hematocrit (Bld) [Volume fraction] 39.2 % Normal 36.0-48.0 [facility] Comment on above: Performed By: #### C BC #### [facility] [address] [place] [address] Dr. Carolann Palomino Hemoglobin (Bld) [Mass/Vol] 12.1 g/dL Normal 12.0-16.0 [facility] Comment on above: Performed By: #### C BC #### [facility] [address] [place] [address] Dr. Carolann Palomino IG # 0.02 10e3/ul Normal 0.00-0.03 [facility] Comment on above: Performed By: #### C BC #### [facility] [address] [place] [address] Dr. Carolann Palomino IG % 0.3 % Normal 0.0-0.5 [facility] Comment on above: Performed By: #### C BC #### [facility] [address] [place] [address] Dr. Carolann Palomino LYMPH # 1.5 103/ul Normal 1.2-3.8 [facility] Comment on above: Performed By: #### C BC #### [facility] [address] [place] [address] Dr. Carolann Palomino Lymphocytes/100 WBC (Bld) 19.9 % Critically low 20.5-60.0 [facility] Comment on above: Performed By: #### C BC #### [facility] [address] [place] [address] Dr. Carolann Palomino MANUAL DIFF REQ NO Normal [facility] Comment on above: Performed By: #### C BC #### [facility] [address] [place] [address] Dr. Carolann Palomino MCH (RBC) [Entitic mass] 26.0 pg Critically low 26.7-34.0 [facility] Comment on above: Performed By: #### C BC #### [facility] [address] [place] [address] Dr. Carolann Palomino MCHC (RBC) [Mass/Vol] 30.9 g/dL Normal 29.9-35.2 [facility] Comment on above: Performed By: #### C BC #### [facility] [address] [place] [address] Dr. Carolann Palomino MCV (RBC) [Entitic vol] 84.1 fL Normal 81.0-99.0 [facility] Comment on above: Performed By: #### C BC #### [facility] [address] [place] [address] Dr. Carolann Palomino MONO # 0.4 103/ul Normal 0.3-0.8 [facility] Comment on above: Performed By: #### C BC #### [facility] [address] [place] [address] Dr. Carolann Palomnio Monocytes/100 WBC (Bld) 5.7 % Normal 1.7-12.0 [facility] Comment on above: Performed By: #### C BC #### [facility] [address] [place] [address] Dr. Carolann Palomino NEUT # 5.5 103/ul Normal 1.4-6.5 [facility] Comment on above: Performed By: #### C BC #### [facility] [address] [place] [address] Dr. Carolann Palomino Neutrophils/100 WBC (Bld) 70.8 % Normal 43.0-75.0 [facility] Comment on above: Performed By: #### C BC #### [facility] [address] [place], [place] [id number] Dr. Carolann Palomino Platelet mean volume (Bld) [Entitic vol] 9.0 fL Critically low 9.5-13.5 [facility] Comment on above: Performed By: #### C BC #### [facility] [address] [place] [address] Dr. Carolann Palomino PLT 215 103/ul Normal 150-450 [facility] Comment on above: Performed By: #### C BC #### [facility] [address] [place] [address] Dr. Carolann Palomino RBC 4.66 106/ul Normal 4.20-5.40 [facility] Comment on above: Performed By: #### C BC #### [facility] [address] [place] [address] Dr. Carolann Palomino WBC 7.7 103/ul Normal 4.0-11.0 [facility] Comment on above: Performed By: #### C BC #### [facility] [address] [place] [address] ABD/PELVIS WO CONon 07-30 CT ABD/PELVIS WO CON EXAMINATION: CT ABD/PELVIS WO CON, 07/30/2022 4:28 PM EDT HISTORY: Constipation , no bowel movement for 4 weeks COMPARISON: 12/22/2021 TECHNIQUE: CT scan of the abdomen and pelvis was performed without IV contrast. CT dose reduction technique was used, including Automated Exposure Control. FINDINGS: There is considerable artifact given apposition of patient to the CT gantry. CT ABDOMEN: No acute lower lung pathology is evident. The liver, adrenal glands, spleen and pancreas demonstrate normal noncontrast morphology. The stomach is nondistended. Mild calcified plaque normal size aorta is seen. Inferior vena cava unremarkable. There is lobular parenchymal scarring the kidneys bilaterally. Study is nondiagnostic for differentiation of renal parenchymal lobulation and isodense cortical mass. 1.8 cm indeterminate midpole right kidney lesion with 0.9 cm calcification is stable. Nephrolithiasis, urinary tract calculus, obstructive uropathy is not evident. There are multiple abdominal wall hernias, no incarceration or obstructive pattern is evident.; * Ventral midline supraumbilical, fat-containing, 4.1 x 1.6 x 5.4 cm, 1.8 x 3.9 cm hiatus * Right periumbilical, containing nondistended colon and small bowel, 6.8 x 5 cm hiatus. * Lower left periumbilical, fat-containing, 3.7 x 2.2 x 5 cm. 3.2 x 3.6 cm hiatus * Left infraumbilical, containing small bowel and fat, 16.7 x 7.2 x 13.2 cm, 6.2 x 7[address] PELVIS: Urinary bladder is unremarkable. Uterus deviated to the left. Bilateral tubal occlusion devices are seen. Convincing adnexal pathology is not evident. Pelvic phleboliths are seen. Localized distention of the mid sigmoid colon with stool up to 6.9 x 5.9 cm. Previous partial left colectomy, primary anastomosis. Normal appendix. Bowel pattern nonobstructive. Lymphadenopathy, free fluid, abscess, ectopic gas are not evident. 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 Lower thoracic, lumbosacral disc degeneration spondylosis is seen. Acute osseous pathology is not evident. Gallbladder surgically absent. Biliary tree normal. IMPRESSION: 1. Rectal fecal stasis with stool filled rectosigmoid junction up to 6.9 cm. Bowel pattern nonobstructive. 2. Severe lobular morphology of the kidneys bilaterally with areas of parenchymal scarring. There is stable morphology. 1.8 cm midpole right kidney lesion with mural calcification noted. This study cannot differentiate persistent lobular parenchymal scarring versus multiple isoechoic solid renal masses. MRI renal mass protocol recommended in this regard. 3. Multiple abdominal wall hernias as described without incarceration or obstructive pattern 4. Nonspecific bilateral sacroiliac arthropathy Electronically authenticated by: SHRUTHI GAYTAN Date: 2022-07-30 17:27 Normal [facility] LIPASEon 07-30-2022 Lipase [Catalytic activity/Vol] 148.0 U/L Normal 73.0-393.0 [facility] Comment on above: Performed By: #### L IPA, CMP #### [facility] [address] [place], [place] [address] Dr. Carolann Palomino PREG HCG QUALon 07-30-2022 , QUAL Negative Normal NEGATIVE [facility] Comment on above: Performed By: #### P REG #### [facility] [address] [address] [address] Carolann Palomino PROF 14(COMP METB)on 022 Albumin [Mass/Vol] 3.9 g/dL Normal 3.4-5.0 [facility] Comment on above: Performed By: #### L IPA, CMP #### [facility] [address] [place] [address] Dr. Carolann Palomino Albumin/Globulin [Mass ratio] 0.9 {ratio} Normal [facility] Comment on above: Performed By: #### L IPA, CMP #### [facility] [address] [place] [address] Dr. Carolann Palomino ALP [Catalytic activity/Vol] 72 U/L Normal 46-116 [facility] Comment on above: Performed By: #### L IPA, CMP #### [facility] [address] [place] [address] Dr. Carolann Palomino ALT [Catalytic activity/Vol] 17 U/L Normal 14-59 [facility] Comment on above: Performed By: #### L IPA, CMP #### [facility] [address] [place] [address] Dr. Carolann Palomino Anion gap [Moles/Vol] 15.0 mmol/L Normal [facility] Comment on above: Performed By: #### L IPA, CMP #### [facility] [address] [place] [address] Dr. Carolann Palomino AST [Catalytic activity/Vol] 10 U/L Critically low 15-37 [facility] Comment on above: Performed By: #### L IPA, CMP #### [facility] [address] [place] [address] Dr. Carolann Palomino Bilirubin [Mass/Vol] 0.2 mg/dL Normal 0.2-1.0 [facility] Comment on above: Performed By: #### L IPA, CMP #### [facility] [address] [place] [address] Dr. Carolann Palomino Calcium [Mass/Vol] 9.3 mg/dL Normal 8.5-10.1 [facility] Comment on above: Performed By: #### L IPA, CMP #### [facility] [address] [address] [address] Carolann Palomino Chloride [Moles/Vol] 107 mmol/L Normal 98-107 [facility] Comment on above: Performed By: #### L IPA, CMP #### [facility] [address] [address] [address] Carolann Palomino CO2 [Moles/Vol] 23.7 mmol/L Normal 21.0-32.0 [facility] Comment on above: Performed By: #### L IPA, CMP #### [facility] [address] [address] [address] Carolann Palomino Creatinine [Mass/Vol] 2.90 mg/dL Critically high 0.55-1.02 [facility] Comment on above: Performed By: #### L IPA, CMP #### [facility] [address] [place] [address] Dr. Carolann Palomino EGFR-AF TUVALUAN 22 mL/min/1.73m2 Critically low >=60 [facility] Comment on above: Performed By: #### L IPA, CMP #### [facility] [address] [place] [address] Dr. Carolann Palomino EGFR-NON AF TUVALUAN 18 mL/min/1.73m2 Critically low >=60 [facility] Comment on above: Performed By: #### L IPA, CMP #### [facility] [address] [place] [address] Dr. Carolann Palomino Globulin (S) [Mass/Vol] 4.3 g/dL Normal [facility] Comment on above: Performed By: #### L IPA, CMP #### [facility] [address] [place] [address] Dr. Carolann Palomino Glucose [Mass/Vol] 118 mg/dL Critically high 74-[address] [facility] Comment on above: Performed By: #### L IPA, CMP #### [facility] [address] [address] [address] Carolann Palomino Potassium [Moles/Vol] 4.7 mmol/L Normal 3.5-5.1 [facility] Comment on above: Performed By: #### L IPA, CMP #### [facility] [address] [address] [address] Carolann Palomino Protein [Mass/Vol] 8.2 g/dL Normal 6.4-8.2 [facility] Comment on above: Performed By: #### L IPA, CMP #### [facility] [address] [address] [address] Carolann Plaomino Sodium [Moles/Vol] 141 mmol/L Normal 136-145 [facility] Comment on above: Performed By: #### L IPA, CMP #### [facility] [address] [address] [address] Carolann Palomino Urea nitrogen [Mass/Vol] 40.0 mg/dL Critically high 7.0-18.0 [facility] Comment on above: Performed By: #### L IPA, CMP #### [facility] [address] [address] [address] Carolann Palomino Urea nitrogen/Creatinine [Mass ratio] 13.8 mg/mg Normal [facility] Comment on above: Performed By: #### L IPA, CMP #### [facility] [address] [address] [address] Carolann Palomino XR hand RT min 3V*on 022 XR hand RT min 3V* [facility] [employer] [place] Other XR hand RT min 3V* [facility] [employer] [place] Other XR hand RT min 3V* [address] [place] [address] [employer] [place] Other XR hand RT min 3V* [address] [employer] [place] Other XR hand RT min 3V* XRay Report [employer] Other XR hand RT min 3V* Signed [employer] Other XR hand RT min 3V* Patient: To Ramos MR#: [id number] [facility] [employer] [place] Other XR hand RT min 3V* 102 [employer] Other XR hand RT min 3V* : 1980 Acct:[id number] [employer] Other XR hand RT min 3V* Age/Sex: 41 / F ADM Date: 06/05/22 [employer] Other XR hand RT min 3V* Loc: XDUCLY Room: Ty pe: REG CLI [employer] Other XR hand RT min 3V* Attending Dr: Merna Paris [facility] [employer] Other XR hand RT min 3V* Copies to: GAYLA PARIS [employer] Other XR hand RT min 3V* Ordering Provider: GAYLA PARIS [facility] [employer] Other XR hand RT min 3V* Date of Service: 06/05/22 [employer] Other XR hand RT min 3V* XR/XR hand RT min 3V*: Injury of right hand, initial encounter [employer] Other XR hand RT min 3V* RIGHT HAND - 3 views [employer] Other XR hand RT min 3V* REASON FOR EXAM: Neelima n right hand for 10 days. No known injury. [employer] Other XR hand RT min 3V* COMPARISON: None [employer] Other XR hand RT min 3V* FINDINGS: [employer] Other XR hand RT min 3V* No focal soft tissue abnormality. No acute bony process is seen. There appears to be negative ulnar [employer] Other XR hand RT min 3V* variance of approxim ately 3 mm. Joint spaces appear maintained without bony erosion. [employer] Other XR hand RT min 3V* X R/XR hand RT min 3V* [employer] Other XR hand RT min 3V* IMPRESSION: [employer] Other XR hand RT min 3V* NO ACUTE BONY PROCESS. [employer] Other XR hand RT min 3V* Impression dictated by: Tod Zepeda Jr., D.O.06/05/2022 12:25 PM [employer] Other XR hand RT min 3V* Dictation Location: [facility]- [employer] Other XR hand RT min 3V* Transcribed By: [facility] 06/05/22 1225 [employer] Other XR hand RT min 3V* Dictated By: Tod Zepeda Jr, DO 06/05/22 1223 [employer] Other XR hand RT min 3V* Signed By: [employer] Other XR hand RT min 3V* 06/05/[address] [place] [address] [employer] Other CHEMISTRYOrdered By: SYSTEM SYSTEM on 04-14-2022 Albumin [Mass/Vol] 4.1 g/dL Normal 3.3 - 5.0 gm/dL [facility] Albumin/Globulin [Mass ratio] 1.0 {ratio} Low 1.1 - 2.2 [facility] ALP [Catalytic activity/Vol] 64 [iU]/d Normal 21 - 98 Int._Unit/ L [facility] ALT No additional P-5'-P [Catalytic activity/Vol] 18 [iU]/d Normal 6 - 46 Int._Unit/ L [facility] Anion gap [Moles/Vol] 13 mmol/L Normal 6 - 16 mEq/L [facility] AST [Catalytic activity/Vol] 18 [iU]/d Normal 5 - 43 Int._Unit/ L [facility] Bilirubin [Mass/Vol] 0.7 mg/dL Normal 0.0 - 1 .1 mg/dL [facility] Bilirubin.direct [Mass/Vol] 0.1 mg/dL Normal 0.1 - 0.4 mg/dL [facility] Bilirubin.indirect [Mass or moles/Vol] 0.6 mg/dL Normal 0.1 - 0.9 mg/dL [facility] Calcium [Mass/Vol] 9.4 mg/dL Normal 8.9 - 11. 1 mg/dL [facility] Chloride [Moles/Vol] 102 mmol/L Normal 101 - 1 11 mmol/L [facility] CO2 [Moles/Vol] 24 mmol/L Normal 21 - 31 mmol/L [facility] Creatinine [Mass/Vol] 2.2 mg/dL High 0.5 - 1.3 mg/dL [facility] GFR/1.73 sq M.predicted among blacks MDRD (S/P/Bld) [Vol rate/Area] 30 mL/min/1.73 m2 Low >=59mL/min /1.73 m2 [facility] Chem S GFR/1.73 sq M.predicted among non-blacks MDRD (S/P/Bld) [Vol rate/Area] 24 mL/min/1.73 m2 Low >=59mL/min /1.73 m2 [facility] Chem S Globulin (S) [Mass/Vol] 4.0 g/dL Normal 1.4 - 4.0 gm/dL [facility] Glucose [Mass/Vol] 111 mg/dL Normal 55 - 199 mg/dL [facility] Lipase [Catalytic activity/Vol] 36 U/L Normal 13 - 58 unit/L [facility] Potassium [Moles/Vol] 4.5 mmol/L Normal 3.5 - 5.3 mmol/L [facility] Protein [Mass/Vol] 8.1 g/dL High 6.0 - 7.8 gm/dL [facility] Sodium [Moles/Vol] 134 mmol/L Low 135 - 145 mmol/L [facility] Urea nitrogen [Mass/Vol] 28 mg/dL High 5 - 21 mg/dL [facility] Urea nitrogen/Creatinine [Mass ratio] 13 mg/mg Normal 10 - 20 [facility] HEMATOLOGYOrdered By: SYSTEM SYSTEM on 04-14-2022 Basophils/100 WBC (Bld) 0.6 % Normal 0.0 - 2.0 % [facility] Basophils/Leukocytes Auto (Bld) [Pure # fraction] 0.1 E9/L Normal 0.0 - 0.2 E9/L [facility] Eosinophils/100 WBC (Bld) 1.8 % Normal 0.0 - 8.0 % [facility] Eosinophils/Leukocytes Auto (Bld) [Pure # fraction] 0.2 E9/L Normal 0.0 - 0.5 E9/L [facility] Lymphocytes/100 WBC (Bld) 17.2 % Normal 14.0 - 50.0 % [facility] Lymphocytes/Leukocytes Auto (Bld) [Pure # fraction] 1.4 E9/L Normal 1.0 - 4.0 E9/L [facility] Monocytes/100 WBC (Bld) 4.8 % Normal 4.0 - 14.0 % [facility] Monocytes/Leukocytes Auto (Bld) [Pure # fraction] 0.4 E9/L Normal 0.2 - 1.0 E9/L [facility] Neutrophils/100 WBC (Bld) 75.6 % High 36.0 - 75.0 % [facility] Neutrophils/Leukocytes Auto (Bld) [Pure # fraction] 6.4 E9/L Normal 2.0 - 7.5 E9/L [facility] HEMATOLOGYOrdered By: Franca Angelo on 04-14-2022 Erythrocyte distribution width (RBC) [Ratio] 14.8 % High 10.9 - 14.2 % [facility] Hematocrit (Bld) [Volume fraction] 38.1 % Normal 34.0 - 46.0 % [facility] Hemoglobin (Bld) [Mass/Vol] 12.7 g/dL Normal 12.0 - 16.0 gm/dL [facility] MCH (RBC) [Entitic mass] 26.1 pg Low 27.0 - 34.0 pg [facility] MCHC (RBC) [Mass/Vol] 33.4 g/dL Normal 31.4 - 36.0 gm/dL [facility] MCV (RBC) [Entitic vol] 78.3 fL Low 80.0 - 100.0 fL [facility] Platelet mean volume (Bld) [Entitic vol] 7.2 fL Normal 6.4 - 10.8 fL [facility] Platelets (Bld) [#/Vol] 252.0 E9/L Normal 150.0 - 500.0 E9/L [facility] RBC (Bld) [#/Vol] 4.9 E12/L Normal 4.3 - 5.9 E12/L [facility] WBC corrected for nucl RBC Auto (Bld) [#/Vol] 8.4 E9/L Normal 4.0 - 11.0 E9/L [facility] SEROLOGYOrdered By: Paula evans on 04-14-2022 Beta hCG Ql Negative (04/14/22 12:45 PM) Normal [facility] URINALYSISOrdered By: Gerald vaughn on 04-14-2022 Bilirubin Ql (U) Negative (04/14/22 2:35 PM) Normal Negative [facility] UA Auto SS Clarity (U) Clear (04/14/22 2:35 PM) Normal Clear [facility]A Auto SS Color (U) Yellow (04/14/22 2:35 PM) Normal Yellow [facility] UA Auto SS Crystals LM Ql (Urine sed) Present (04/14/22 2:35 PM) Normal [facility] UA Auto SS Epithelial cells.squamous LM.HPF (Urine sed) [#/Area] 5-8 /HPF Normal 0-2/HPF [facility] UA Aut o SS Glucose Test strip (U) [Mass/Vol] Negative (04/14/22 2:35 PM) Normal Negative [facility] UA Auto SS Hemoglobin Ql (U) Negative (04/14/22 2:35 PM) Normal Negative [facility] UA Auto SS Ketones (U) [Mass/Vol] Negative (04/14/22 2:35 PM) Normal Negative [facility] UA Auto SS [place].plasma/[place] .RBC (Bld) [Mass ratio] 0-3 /HPF Normal 0-3/HPF [facility] UA Auto SS Nitrite Ql (U) Negative (04/14/22 2:35 PM) Normal Negative [facility] UA Auto SS pH (U) 6.0 *NA* (04/14/22 2:35 PM) Invalid Interpretation Code 5.0 - 9.0 [facility] UA Auto SS Protein (U) [Mass/Vol] 2+ *ABN* (04/14/22 2:35 PM) Invalid Interpretation Code Negative [facility] UA Auto SS Specific gravity (U) [Rel density] 1.010 *NA* (04/14/22 2:35 PM) Invalid Interpretation Code 1.005 - 1.030 [facility] UA Auto SS UA Spec Desc Clean Catch (04/14/22 2:35 PM) Normal [facility] UA Auto SS Urobilinogen Qn (U) [id number] {Jesu'U}/dL Normal 0.0 - 1.0 EU/dL [facility] UA Auto SS WBC Auto Ql (U) Negative (04/14/22 2:35 PM) Normal Negative [facility] UA Auto SS WBC LM.HPF (Urine sed) [#/Area] 0-5 /HPF Normal 0-5/HPF [facility] UA Auto SS Q - COMPREHENSIVE METABOLIC PANEL W/EGFRon 04-05-2022 Albumin [Mass/Vol] 3.9 g/dL Normal 3.6-5.1 [facility] [employer] Comment on above: Order Comment: [facility] Testing performed at: [employer] [facility], [address] [place] [address], [address] [place] [address], [address] [place] [address], Septic Tank Setter: Jam Quintana MD [facility] Date/Time: [facility] Results Received Date/Time: [facility] Reported Date/Time: Performed By: #### 1 [id number], [id number], [id number] #### [facility] Default [address] [place] [address] Albumin/Globulin [Mass ratio] 1.4 {ratio} Normal 1.0-2.5 [facility] [employer] Comment on above: Order Comment: [facility] performed at: [employer] [facility], [facility], [address] [place] [address], [address] [place] [address], Septic Tank Setter: Jam Quintana MD [facility] Date/Time: [facility] Results Received Date/Time: [facility] Reported Date/Time: Performed By: #### 1 [id number], 968T, [id number] #### [facility] Default [address] [place] [address] ALP [Catalytic activity/Vol] 63 U/L Normal 31-125 [facility] Comment on above: Order Comment: [facility] performed at: [employer] [facility], [address] [place] [address], [address] [place] [address], [address] [place] [address], Septic Tank Setter: Jam Quintana MD [facility] Date/Time: [facility] Results Received Date/Time: [facility] Reported Date/Time: Performed By: #### 1 [id number], 968T, [id number] #### [facility] Default [address] [place] [address] ALT [Catalytic activity/Vol] 15 U/L Normal 6-29 [facility] Specialist Comment on above: Order Comment: [facility] performed at: [employer] [facility], [address] [place] [address], [address] [place] [address], [address] [place] [address], Septic Tank Setter: Jma Quintana MD [facility] Date/Time: [facility] Results Received Date/Time: [facility] Reported Date/Time: Performed By: #### 1 [id number], 968T, [id number] #### [facility] Default [address] [place] [address] AST [Catalytic activity/Vol] 14 U/L Normal 10-30 [facility] Specialist Comment on above: Order Comment: [facility] performed at: [employer] [facility], [address] [place] [address], [address] [place] [address], [address] [place] [address], [employer] Tank Setter: Jam Quintana MD [facility] Date/Time: [facility] Results Received Date/Time: [facility] Reported Date/Time: Performed By: #### 1 0231A, 968T, [id number] #### [facility] Default [address] [place] [address] Bilirubin [Mass/Vol] 0.4 mg/dL Normal 0.2-1.2 [facility] Comment on above: Order Comment: [facility] performed at: [employer] [facility], [address], [address] [place] [address], [phone], Septic Tank Setter: Jam Quintana MD [facility] Date/Time: [facility] Results Received Date/Time: [facility] Reported Date/Time: Performed By: #### 1 [id number], 968T, [id number] #### [facility] Default [address] [place] [address] Calcium [Mass/Vol] 9.2 mg/dL Normal 8.6-10.2 [facility] Specialist Comment on above: Order Comment: [facility] performed at: [employer] [facility], [address] , [address] [place] [address], [phone], Septic Tank Setter: Jam Quintana MD [facility] Date/Time: [facility] Results Received Date/Time: [facility] Reported Date/Time: Performed By: #### 1 0231A, 968T, [id number] #### [facility] Default [address] [place] [address] Chloride [Moles/Vol] 107 mmol/L Normal 98-110 [facility] Specialist Comment on above: Order Comment: [facility] performed at: [employer] [facility], [address], [address] [place] [address], [phone], Septic Tank Setter: Jam Quintana MD [facility] Date/Time: [facility] Results Received Date/Time: [facility] Reported Date/Time: Performed By: #### 1 0231A, 968T, [id number] #### [facility] Default [address] [place] [address] CO2 [Moles/Vol] 28 mmol/L Normal 20-32 [facility] [employer] Comment on above: Order Comment: [facility] performed at: [employer] [facility], [address] , [address] [place] [address], [address] [place] [address], Septic Tank Setter: Jam Quintana MD [facility] Date/Time: [facility] Results Received Date/Time: [facility] Reported Date/Time: Performed By: #### 1 0231A, 968T, [id number] #### [facility] Default [address] [place] [address] Creatinine [Mass/Vol] 1.92 mg/dL High 0.50-1.10 [facility] [employer] Comment on above: Order Comment: [facility] performed at: [employer] [facility], [address] [facility], [address] [place] [address], , Septic Tank Setter: Jam Quintana MD [facility] Date/Time: [facility] Results Received Date/Time: [facility] Reported Date/Time: Performed By: #### 1 0231A, 968T, [id number] #### [facility] Default [address] [place] [address] eGFRAA ([facility]) 37 mL/min/1.73m2 Low > OR = 60 [facility] [employer] Comment on above: Order Comment: [facility] performed at: [employer] [facility], [address] [place] [address], [address] [place] [address], [phone], Septic Tank Setter: Jam Quintana MD [facility] Date/Time: [facility] Results Received Date/Time: [facility] Reported Date/Time: Performed By: #### 1 0231A, 968T, [id number] #### [facility] Default [address] [place] [address] eGFRNAA ([facility]) 32 mL/min/1.73m2 Low > OR = 60 [facility] [employer] Comment on above: Order Comment: [facility] performed at: [employer] [facility], [address] , [address] [place] [address], [phone], Septic Tank Setter: Jam Quintana MD [facility] Date/Time: [facility] Results Received Date/Time: [facility] Reported Date/Time: Performed By: #### 1 0231A, 968T, [id number] #### [facility] Default [address] [place] [address] Globulin (S) [Mass/Vol] 2.8 g/dL Normal 1.9-3.7 [facility] Specialist Comment on above: Order Comment: [facility] performed at: [employer] [facility], [address] [facility], [address] [place] [address], [address] [place] [address], Septic Tank Setter: Jam Quintana MD [facility] Date/Time: [facility] Results Received Date/Time: [facility] Reported Date/Time: Performed By: #### 1 0231A, 968T, [id number] #### [facility] Default [address] [place] [address] Glucose [Mass/Vol] 129 mg/dL High 65-99 [facility] Comment on above: Order Comment: [facility] performed at: [employer] [facility], [facility], [address] [place] [address], [address] [place] [address], Septic Tank Setter: Jam Quintana MD [facility] Date/Time: [facility] Results Received Date/Time: [facility] Reported Date/Time: Result Comment: Fasting reference interval For someone without known diabetes, a glucose value >125 mg/dL indicates that they may have diabetes and this should be confirmed with a follow-up test. Performed By: #### 1 0231A, 968T, [id number] #### [facility] Default [address] [place] [address] Potassium [Moles/Vol] 4.9 mmol/L Normal 3.5-5.3 [facility] Specialist Comment on above: Order Comment: [facility] performed at: [employer] [facility], [address] [facility], [address] [place] [address], [address] [place] [address], [employer]ic Tank Setter: Jam Quintana MD [facility] Date/Time: [facility] Results Received Date/Time: [facility] Reported Date/Time: Performed By: #### 1 0231A, 968T, [id number] #### [facility] Default [address] [place] [address] Protein [Mass/Vol] 6.7 g/dL Normal 6.1-8.1 [facility] [place] [employer] Comment on above: Order Comment: [facility] performed at: [employer] [facility], [address] [facility], [address] [place] [address], [address] [place] [address], [employer]ic Tank Setter: Jam Quintana MD [facility] Date/Time: [facility] Results Received Date/Time: [facility] Reported Date/Time: Performed By: #### 1 0231A, 968T, [id number] #### [facility] Default [address] [place] [address] Sodium [Moles/Vol] 140 mmol/L Normal 135-146 [facility] [place] [employer] Comment on above: Order Comment: [facility] performed at: [facility], [address] [place] [address], [address] [place] [address], [address] [place] [address], [employer] Setter: Jam Quintana MD [facility] Date/Time: [facility] Results Received Date/Time: [facility] Reported Date/Time: Performed By: #### 1 [id number], 968T, [id number] #### [facility] Default [address] [place] [address] Urea nitrogen [Mass/Vol] 21 mg/dL Normal 7-25 [facility] [employer] Comment on above: Order Comment: [facility] performed at: [facility], [facility], [address] [place] [address], [address] [place] [address], [employer] Setter: Jam Quintana MD [facility] Date/Time: [facility] Results Received Date/Time: [facility] Reported Date/Time: Performed By: #### 1 [id number], 968T, [id number] #### [facility] Default [address] [place] [address] Urea nitrogen/Creatinine [Mass ratio] 11 mg/mg Normal 6-22 [facility] [employer] Comment on above: Order Comment: [facility] performed at: [employer] [facility], [address] , [address] [place] [address], [address] [place] [address], Septic Tank Setter: Jam Quintana MD [facility] Collection Date/Time: [facility] Results Received Date/Time: [facility] Reported Date/Time: Performed By: #### 1 0231A, 968T, [id number] #### [facility] [address] [place] [address] Q - Lipid Panelon 04-05-2022 Cholesterol [Mass/Vol] 139 mg/dL Normal <200 No [facility] [place] Comment on above: Order Comment: [facility] Testing performed at: [facility], [address] , [address] [place] [address], [address] [place] [address], Septic Tank Setter: Jam Quintana MD [facility] Collection Date/Time: [facility] Results Received Date/Time: [facility] Reported Date/Time: Performed By: #### 1 0231A, 968T, [id number] #### [facility] Default [address] [place] [address] Cholesterol in HDL [Mass/Vol] 43 mg/dL Low > OR = 50 [facility] Specialist Comment on above: Order Comment: [facility] Testing performed at: [facility], [address] , [address] [place] [address], [phone], Septic Tank Setter: Jam Quintana MD [facility] Collection Date/Time: [facility] Results Received Date/Time: [facility] Reported Date/Time: Performed By: #### 1 0231A, 968T, [id number] #### [facility] Default [address] [place] [address] Cholesterol in LDL [Mass/Vol] 74 mg/dL Normal [facility] [employer] Comment on above: Order Comment: [facility] Testing performed at: [employer], [employer] [facility], [address] [facility], [address] [place] [address], [address], Septic Tank Setter: Jam Quitnana MD [facility] Collection Date/Time: [facility] Results Received Date/Time: [facility] Reported Date/Time: Result Comment: Refe rence range: <100 Desirable range <100 mg/dL for primary prevention; <70 mg/dL for patients with CHD or diabetic patients with > or = 2 CHD risk factors. LDL-C is now calculated using the Nora calculation, which is a validated novel method providing better accuracy than the Friedewald equation in the estimation of LDL-C. Aleksandr ROSA et al. JAEL. 2013;310(19): 4459-1609 (http://education.[employer] That Talk.[employer]/faq/ZFC105) Performed By: #### 1 0231A, 968T, 6517X #### [facility] Default [address] [place] [address] Cholesterol.total/Chol esterol in HDL [Mass ratio] 3.2 {ratio} Normal <5.0 [facility] [employer] Comment on above: Order Comment: [facility] Testing performed at: [employer], [employer] [facility], [address] [facility], [address] [place] [address], [address], Septic Tank Setter: Jam Quintana MD [facility] Collection Date/Time: [facility] Results Received Date/Time: [facility] Reported Date/Time: Performed By: #### 1 0231A, 968T, [id number] #### [facility] Default [address] [place] [address] NON HDL CHOLESTEROL 96 mg/dL (calc) Normal <130 [facility] [employer] Comment on above: Order Comment: [facility] Testing performed at: [employer], [employer] [facility], [address] , [address] [place], [address], Septic Tank Setter: Jam Quintana MD [facility] Collection Date/Time: [facility] Results Received Date/Time: [facility] Reported Date/Time: Result Comment: For patients with diabetes plus 1 major ASCVD risk factor, treating to a non-HDL-C goal of <100 mg/dL (LDL-C of <70 mg/dL) is considered a therapeutic option. Performed By: #### 1 0231A, 968T, [id number] #### [facility] Default [address] [place] [address] Triglyceride [Mass/Vol] 135 mg/dL Normal <150 [facility] [employer] Comment on above: Order Comment: [facility] Testing performed at: [facility], [address] [place] [address], [address] [place] [address], [address] [place] [address], Septic Tank Setter: Jam Quintana MD [facility] Collection Date/Time: [facility] Results Received Date/Time: [facility] Reported Date/Time: Performed By: #### 1 0231A, 968T, [id number] #### [facility] Default [address] [place] [address] Q - MICROALBUMIN,RANDOM URIN E (W/CREAT)on 04-05-2022 Albumin DL <= 20 mg/L (U) [Mass/Vol] 85.3 mg/dL Normal See Note: [facility] [employer] Comment on above: Order Comment: [facility] Testing performed at: [facility], [address] [place] [address], [address] [place] [address], [address] [place] [address], Septic Tank Setter: Jam Quintana MD [facility] Collection Date/Time: [facility] Results Received Date/Time: [facility] Reported Date/Time: Result Comment: Refe rence Range: Reference Range Not established Results verified by repeat analysis on dilution. Performed By: #### 1 0231A, 968T, [id number] #### [facility] Default [address] [place] [address] Creatinine (U) [Mass/Vol] 99 mg/dL Normal 20-275 [place] [employer] Comment on above: Order Comment: [facility] Testing performed at: [employer], [employer] [facility], [address] [place] [address], [address] [place] [address], [phone], Septic Tank Setter: Jam Quintana MD [facility] Collection Date/Time: [id number] [facility] Results Received Date/Time: [facility] Reported Date/Time: Performed By: #### 1 0231A, 968T, [id number] #### [facility] Default [address] [place] [address] MICROALBUMIN/CREATININ E RATIO, RANDOM URINE 862 mcg/mg creat High <30 [facility] [employer] Comment on above: Order Comment: [facility] Testing performed at: [employer], [employer] [facility], [address] [place] [address], [address] [place] [address], [phone], Septic Tank Setter: Jam Quintana MD [facility] Collection Date/Time: [facility] Results Received Date/Time: [facility] Reported Date/Time: Result Comment: The ADA defines abnormalities in albumin excretion as follows: Albuminuria Category Result (mcg/mg creatinine) Normal to Mildly increased <30 Moderately increased 30-299 Severely increased > OR = 300 The ADA recommends that at least two of three specimens collected within a 3-6 month period be abnormal before considering a patient to be within a diagnostic category. Performed By: #### 1 0231A, 968T, [id number] #### [facility] Default [address] [place] [address] Q - SUREPATH PAP AND HPV E6/ E7 REFL HPV 16/18/45on 03-07-2022 CLINICAL INFORMATION: None given Normal Nor [facility] [place] Comment on above: Order Comment: [facility] Testing performed at: [place], [address] [place] [address], [address] [place] [address] [place], [address], Septic Tank Setter: Jam Quintana MD Testing performed at: [facility], [facility], [address] [place] [address], [phone], Septic Tank Setter: Vega Alfaro MD [facility] Collection Date/Time: [id number] [facility] Results Received Date/Time: [facility] Reported Date/Time: Result Comment: [QAC ] Performed By: #### 1 8829 #### [facility] Default [address] [place] [address] COMMENT SEE NOTE Normal [facility] [employer] Comment on above: Order Comment: [facility] Testing performed at: [facility], [address] [place] [address], [address] [place] [address], [address] [place] [address], Septic Tank Setter: Jam Quintana MD Testing performed at: [facility], [facility])-[address], [address], Septic Tank Setter: Vega Alfaro MD [facility] Collection Date/Time: [facility] Results Received Date/Time: [facility] Reported Date/Time: Result Comment: EXPL ANATORY NOTE: The Pap is a screening test for cervical cancer. It is not a diagnostic test and is subject to false negative and false positive results. It is most reliable when a satisfactory sample, regularly obtained, is submitted with relevant clinical findings and history, and when the Pap result is evaluated along with historic and current clinical information. [QAC] Performed By: #### 1 [id number] #### [facility] Default [address] [place] [address] COMMENT: This Pap test has be en evaluated with computer assisted technology. Normal [facility] [employer] Comment on above: Order Comment: [facility] Testing performed at: [employer], [employer], [address] [place] [address], [address] [place] [address], [phone], Septic Tank Setter: Jam Quintana MD Testing performed at: [facility], [facility], [address], Septic Tank Setter: Vega Alfaro MD [facility] Collection Date/Time: [facility] Results Received Date/Time: [facility] Reported Date/Time: Result Comment: [QAC ] Performed By: #### 1 [id number] #### [facility] Default [address] [place] [address] TRAINING PROGRAM MANAGER: SEE NOTE Normal [facility] Comment on above: Order Comment: [facility] Testing performed at: [facility], [address], Septic Tank Setter: Jam Quintana MD Testing performed at: [facility], [facility], , Septic Tank Setter: Vega Alfaro MD [facility] Collection Date/Time: [facility] Results Received Date/Time: [facility] Reported Date/Time: Result Comment: MARIFER TORRES(ASCP) For informational purposes: All Cytology specimens are processed and screened at [facility]. [address] [place] [address] [[facility]] Performed By: #### 1 [id number] #### [facility] Default [address] [place] [address] HPV mRNA E6/E7, SUREPATH VIAL Not detected Normal NOT DETECTED [facility] Comment on above: Order Comment: [facility] Testing performed at: [facility], [address], Septic Tank Setter: Jam Quintana MD Testing performed at: [facility], , Septic Tank Setter: Vega Alfaro MD [facility] Collection Date/Time: [facility] Results Received Date/Time: [facility] Reported Date/Time: Result Comment: Meth odology: An Employee Sponsor Or Advocate And-Mediated Amplification This assay detects E6/E7 viral messenger RNA (mRNA) from 14 high-risk HPV types (16,18,31,33,35,39,45,51,52,56,58,59,66,68). The analytical performance characteristics of this assay have been determined by [employer]. The modifications have not been cleared or approved by the FDA. This assay has been validated pursuant to the CLIA regulations and is used for clinical purposes. For additional information, please refer to http://education.[employer]/faq/CAA093p4 (This link if provided for information/ educational purposes only.) [O6K] Performed By: #### 1 [id number] #### [facility] Default [address] [place] [address] INTERPRETATION/RESULT: Negative Normal [facility] Comment on above: Order Comment: [facility] Testing performed at: [facility], [address] [place] [address], [address] [place] [address], Septic Tank Setter: Jma Quintana MD Testing performed at: [facility], [address], Septic Tank Setter: Vega Alfaro MD [facility] Collection Date/Time: [facility] Results Received Date/Time: [facility] Reported Date/Time: Result Comment: [QAC ] Performed By: #### 1 [id number] #### [facility] Default [address] [place] [id number] LMP: None given Normal [facility] Comment on above: Order Comment: [facility] Testing performed at: [facility], [address] [place] [address], [address] [place] [address], [address] [place] [address], Septic Tank Setter: Jam Quintana MD Testing performed at: [facility], [address], Septic Tank Setter: Vega Alfaro MD [facility] Collection Date/Time: [facility] Results Received Date/Time: [facility] Reported Date/Time: Result Comment: [QAC ] Performed By: #### 1 [id number] #### [facility] Default [address] [place] [address] PREV. BX: None given Normal [facility] Comment on above: Order Comment: [facility] Testing performed at: [facility], [address] [place] [address], [address] [place] [address], [address], Septic Tank Setter: Jam Quintaan MD Testing performed at: [facility], [facility], [address], Septic Tank Setter: Vega Alfaro MD [facility] Collection Date/Time: [facility] Results Received Date/Time: [facility] Reported Date/Time: Result Comment: [QAC ] Performed By: #### 1 [id number] #### [facility] Default [address] [place] [address] PREV. PAP: None given Normal [facility] Comment on above: Order Comment: [facility] Testing performed at: [employer], [address], Septic Tank Setter: Jam Quintana MD Testing performed at: [facility], , Septic Tank Setter: Vega Alfaro MD [facility] Collection Date/Time: [facility] Results Received Date/Time: [facility] Reported Date/Time: Result Comment: [QAC ] Performed By: #### 1 [id number] #### [facility] Default [address] [place] [address] SOURCE: None given Normal [facility] Comment on above: Order Comment: [facility] Testing performed at: [employer]-[address], [address], Septic Tank Setter: Jam Quintana MD Testing performed at: [facility], , Septic Tank Setter: Vega Alfaro MD [facility] Collection Date/Time: [facility] Results Received Date/Time: [facility] Reported Date/Time: Result Comment: [QAC ] Performed By: #### 1 [id number] #### [facility] Default [address] [place] [address] STATEMENT OF ADEQUACY: SEE NOTE Normal No [facility] [place] [employer] Comment on above: Order Comment: [facility] Testing performed at: [employer], [facility], [address] [place] [address], [address] [place] [address], [phone], Septic Tank Setter: Jam Quintana MD Testing performed at: [facility], [facility], [address], Septic Tank Setter: Vega Alfaro MD [facility] Collection Date/Time: [facility] Results Received Date/Time: [id number] [facility] Reported Date/Time: Result Comment: Sati sfactory for evaluation. Endocervical/transformation zone component absent. [QA] Performed By: #### 1 [id number] #### [facility] Default [address] [place] [address] Free T4on 01-31-2022 Free T4 [Mass/Vol] 1.0 ng/dL Normal 0.8-1.8 [facility] [place] [facility] [facility] Comment on above: Order Comment: [facility] Testing performed at: [employer], [employer] [facility], [address] [place] [address], [phone], Septic Tank Setter: Jam Quintana MD [facility] Collection Date/Time: [facility] Results Received Date/Time: [facility] Reported Date/Time: Performed By: #### F T4, TSH #### [facility] Default [address] [place] [address] TSHon 01-31-2022 TSH Qn 1.97 m[IU]/L Normal [facility] [employer] Comment on above: Order Comment: [facility] Testing performed at: [employer], [employer] [facility], [address] [place] [address], [address] [place] [address], [address], Septic Tank Setter: Jam Quintana MD [facility] Collection Date/Time: [facility] Results Received Date/Time: [facility] Reported Date/Time: Result Comment: Refe rence Range > or = 20 Years 0.40-4.50 Ranges First trimester 0.26-2.66 Second trimester 0.55-2.73 Third trimester 0.43-2.91 Performed By: #### F T4, TSH #### [facility] Default [address] [place] [address] Complete Blood Counton 12-08 Erythrocyte distribution width (RBC) [Ratio] 14.0 % Normal 11.0-15.0 [facility] [employer] Comment on above: Order Comment: [facility] Testing performed at: [employer], [employer] [facility], [address] [place] [address], [address] [place] [address], [address] [place] [address], Septic Tank Setter: Jam Quintana MD [facility] Collection Date/Time: [facility] Results Received Date/Time: [facility] Reported Date/Time: Performed By: #### F T4, TSH #### [facility] Default [address] [place] [address] Hematocrit (Bld) [Volume fraction] 36.9 % Normal 35.0-45.0 [facility] [employer] Comment on above: Order Comment: [facility] Testing performed at: [facility], [address] [place] [address], [address] [place] [address], [address] [place] [address], Septic Tank Setter: Jam Quintana MD [facility] Collection Date/Time: [facility] Results Received Date/Time: [facility] Reported Date/Time: Performed By: #### F T4, TSH #### [facility] Default [address] [place] [address] Hemoglobin (Bld) [Mass/Vol] 12.2 g/dL Normal 11.7-15.5 [facility] [employer] Comment on above: Order Comment: [facility] Testing performed at: [facility], [address] [place] [address], [address] [place] [address], [address], Septic Tank Setter: Jam Quintana MD [facility] Collection Date/Time: [facility] Results Received Date/Time: [facility] Reported Date/Time: Performed By: #### F T4, TSH #### [facility] Default [address] [place] [address] MCH (RBC) [Entitic mass] 26.8 pg Low 27.0-33.0 [facility] Specialist Comment on above: Order Comment: [facility] Testing performed at: [employer], [employer] [facility], [facility], [address] [place] [address], [address] [place] [address], Septic Tank Setter: Jam Quintana MD [facility] Collection Date/Time: [facility] Results Received Date/Time: [facility] Reported Date/Time: Performed By: #### F T4, TSH #### [facility] Default [address] [place] [address] MCHC (RBC) [Mass/Vol] 33.1 g/dL Normal 32.0-36.0 [facility] Comment on above: Order Comment: [facility] Testing performed at: [employer], [employer] [facility], [facility], [address] [place] [address], [address] [place] [address], Septic Tank Setter: Jam Quintana MD [facility] Collection Date/Time: [facility] Results Received Date/Time: [facility] Reported Date/Time: Performed By: #### F T4, TSH #### [facility] Default [address] [place] [address] MCV (RBC) [Entitic vol] 80.9 fL Normal 80.0-100.0 [facility] [employer] Comment on above: Order Comment: [facility] Testing performed at: [employer], [employer] [facility], [address] [place] [address], [address] [place] [address], [address] [place] [address], Septic Tank Setter: Jam Quintana MD [facility] Collection Date/Time: [facility] Results Received Date/Time: [facility] Reported Date/Time: Performed By: #### F T4, TSH #### [facility] Default [address] [place] [address] Platelet mean volume (Bld) [Entitic vol] 9.5 fL Normal 7.5-12.5 [facility] Comment on above: Order Comment: [facility] Testing performed at: [employer], [employer] [facility], [address] [facility], [address] [place] [address], [address] [place] [address], Septic Tank Setter: Jam Quintana MD [facility] Collection Date/Time: [facility] Results Received Date/Time: [facility] Reported Date/Time: Performed By: #### F T4, TSH #### [facility] Default [address] [place] [address] Platelets (Bld) [#/Vol] 330 10*3/uL Normal 140-400 [facility] Comment on above: Order Comment: [facility] Testing performed at: [employer], [employer] [facility], [address] [place] [address], [address] [place] [address], [address] [place] [address], Septic Tank Setter: Jam Quintana MD [facility] Collection Date/Time: [facility] Results Received Date/Time: [facility] Reported Date/Time: Performed By: #### F T4, TSH #### [facility] Default [address] [place] [address] RBC (Bld) [#/Vol] 4.56 10*6/uL Normal 3.80-5.10 [facility] Comment on above: Order Comment: [facility] Testing performed at: [facility], [address] [facility], [address] [place] [address], [address] [place] [address], Septic Tank Setter: Jam Quintana MD [facility] Collection Date/Time: [facility] Results Received Date/Time: [facility] Reported Date/Time: Performed By: #### F T4, TSH #### [facility] Default [address] [place] [address] WBC (Bld) [#/Vol] 6.8 10*3/uL Normal 3.8-10.8 [facility] [place] [facility] [facility] Comment on above: Order Comment: [facility] Testing performed at: [employer], [employer] [facility], [address] [place] [address], [address] [place] [address], [address] [place] [address], Septic Tank Setter: Jam Quintana MD [facility] Collection Date/Time: [facility] Results Received Date/Time: [facility] Reported Date/Time: Performed By: #### F T4, TSH #### [facility] Default [address] [place] [address] Comprehensive Metabolic Pane [facility] 12-08-2021 Albumin [Mass/Vol] 4.2 g/dL Normal 3.6-5.1 [facility] [employer] Comment on above: Order Comment: [facility] Testing performed at: [employer], [employer] [facility], [address] [place] [address], [address] [place] [address], [address] [place] [address], Septic Tank Setter: Jam Quintana MD [facility] Date/Time: [facility] Results Received Date/Time: [facility] Reported Date/Time: Performed By: #### F T4, FT3, CMP, CBC, TSH #### [facility] Default [address] [place] [address] Albumin/Globulin [Mass ratio] 1.4 {ratio} Normal 1.0-2.5 [facility] [employer] Comment on above: Order Comment: [facility] Testing performed at: [employer], [employer] [facility], [address] [place] [address], [address] [place] [address], [address] [place] [address], Septic Tank Setter: Jam Quintana MD [facility] Date/Time: [facility] Results Received Date/Time: [facility] Reported Date/Time: Performed By: #### F T4, FT3, CMP, CBC, TSH #### [facility] Default [address] [place] [address] ALP [Catalytic activity/Vol] 62 U/L Normal 31-125 [facility] [employer] Comment on above: Order Comment: [facility] Testing performed at: [employer], [employer] [facility], [address] [place] [address], [address] [place] [address], [address] [place] [address], Septic Tank Setter: Jam Quintana MD [facility] Collection Date/Time: [facility] Results Received Date/Time: [facility] Reported Date/Time: Performed By: #### F T4, FT3, CMP, CBC, TSH #### [facility] Default [address] [place] [address] ALT [Catalytic activity/Vol] 22 U/L Normal 6-29 [facility] [employer] Comment on above: Order Comment: [facility] Testing performed at: [employer], [employer] [facility], [address] [place] [address], [address] [place] [address], [address] [place] [address], Septic Tank Setter: Jam Quintana MD [facility] Collection Date/Time: [facility] Results Received Date/Time: [facility] Reported Date/Time: Performed By: #### F T4, FT3, CMP, CBC, TSH #### [facility] Default [address] [place] [address] Anion gap [Moles/Vol] 15 mmol/L Normal 12-20 [facility] Comment on above: Order Comment: [facility] Testing performed at: [employer], [employer] [facility], [address] [place] [address], [address] [place] [address], [address] [place] [address], Septic Tank Setter: Jam Quintana MD [facility] Date/Time: [facility] Results Received Date/Time: [facility] Reported Date/Time: Result Comment: Effe ctive 11/03/2019 reference range changed. Performed By: #### F T4, FT3, CMP, CBC, TSH #### [facility] Default [address] [place] [address] AST [Catalytic activity/Vol] 20 U/L Normal 10-30 [facility] Doll Wig Maker Comment on above: Order Comment: [facility] Testing performed at: [employer] [facility], [address] [place] [address], [address] [place] [address], [address] [place] [address], Septic Tank Setter: Jam Quintana MD [facility] Date/Time: [facility] Results Received Date/Time: [facility] Reported Date/Time: Performed By: #### F T4, FT3, CMP, CBC, TSH #### [facility] Default [address] [place] [address] Bilirubin [Mass/Vol] 0.4 mg/dL Normal 0.2-1.2 [facility] Doll Wig Maker Comment on above: Order Comment: [facility] Testing performed at: [employer] [facility], [address] [place] [address], [address] [place] [address], [address] [place] [address], Septic Tank Setter: Jam Quintana MD [facility] Date/Time: [facility] Results Received Date/Time: [facility] Reported Date/Time: Performed By: #### F T4, FT3, CMP, CBC, TSH #### [facility] [address] [place] [address] Calcium [Mass/Vol] 9.7 mg/dL Normal 8.6-10.2 [facility] Specialist Comment on above: Order Comment: [facility] Testing performed at: [employer] [facility], [address] [place] [address], [address] [place] [address], [address] [place] [address], Septic Tank Setter: Jam Quintana MD [facility] Date/Time: [facility] Results Received Date/Time: [facility] Reported Date/Time: Performed By: #### F T4, FT3, CMP, CBC, TSH #### [facility] [address] [place] [address] Chloride [Moles/Vol] 108 mmol/L Normal 98-110 [facility] Doll Wig Maker Comment on above: Order Comment: [facility] Testing performed at: [employer] [facility], [address] [place] [address], [address] [place] [address], [address] [place] [address], Septic Tank Setter: Jam Quintana MD [facility] Date/Time: [facility] Results Received Date/Time: [facility] Reported Date/Time: Performed By: #### F T4, FT3, CMP, CBC, TSH #### [facility] Default [address] [place] [address] CO2 [Moles/Vol] 21 mmol/L Normal 20-32 [facility] Specialist Comment on above: Order Comment: [facility] Testing performed at: [employer] [facility], [facility] [facility], [address] [place] [address], [address] [place] [address], Septic Tank Setter: Jam Quintana MD [facility] Date/Time: [facility] Results Received Date/Time: [facility] Reported Date/Time: Performed By: #### F T4, FT3, CMP, CBC, TSH #### [facility] Default [address] [place] [address] Creatinine [Mass/Vol] 2.60 mg/dL High 0.50-1.10 [facility] Comment on above: Order Comment: [facility] Testing performed at: [employer] [facility], [address] [place] [address], [address] [place] [address], [address] [place] [address], Septic Tank Setter: Jam Quintana MD [facility] Date/Time: [facility] Results Received Date/Time: [facility] Reported Date/Time: Performed By: #### F T4, FT3, CMP, CBC, TSH #### [facility] Default [address] [place] [address] eGFRAA 24 mL/min/1.73m2 Low > OR = 60 [facility] Specialist Comment on above: Order Comment: [facility] Testing performed at: [employer] [facility], [address] [place] [address], [address] [place] [address], [address] [place] [address], Septic Tank Setter: Jam Quintana MD [facility] Date/Time: [facility] Results Received Date/Time: [facility] Reported Date/Time: Performed By: #### F T4, FT3, CMP, CBC, TSH #### [facility] Default [address] [place] [address] eGFRNAA 20 mL/min/1.73m2 Low > OR = 60 [facility] Specialist Comment on above: Order Comment: [facility] Testing performed at: [employer] [facility], [address] [place] [address], [address] [place] [address], [address] [place] [address], Septic Tank Setter: Jam Quintana MD [facility] Date/Time: [facility] Results Received Date/Time: [facility] Reported Date/Time: Performed By: #### F T4, FT3, CMP, CBC, TSH #### [facility] Default [address] [place] [address] Globulin (S) [Mass/Vol] 3.0 g/dL Normal 1.9-3.7 [facility] Specialist Comment on above: Order Comment: [facility] Testing performed at: [employer] [facility], [address] [place] [address], [address] [place] [address], [address] [place] [address], Septic Tank Setter: Jam Quintana MD [facility] Date/Time: [facility] Results Received Date/Time: [facility] Reported Date/Time: Performed By: #### F T4, FT3, CMP, CBC, TSH #### [facility] Default [address] [place] [address] Glucose [Mass/Vol] 100 mg/dL High 65-99 [facility] Comment on above: Order Comment: [facility] performed at: [employer] [facility], [address] [place] [address], [address] [place] [address], [address] [place] [address], Septic Tank Setter: Jam Quintana MD [facility] Date/Time: [facility] Results Received Date/Time: [facility] Reported Date/Time: Result Comment: Fasting reference interval For someone without known diabetes, a glucose value between 100 and 125 mg/dL is consistent with prediabetes and should be confirmed with a follow-up test. Performed By: #### F T4, FT3, CMP, CBC, TSH #### [facility] Default [address] [place] [address] Potassium [Moles/Vol] 4.7 mmol/L Normal 3.5-5.3 Rishi mireles [place] Doll [facility]ig Maker Comment on above: Order Comment: [facility] Testing performed at: [employer] [facility], [address] [place] [address], [address] [place] [address], [address] [place] [address], Septic Tank Setter: Jam Quintana MD [facility] Date/Time: [facility] Results Received Date/Time: [facility] Reported Date/Time: Performed By: #### F T4, FT3, CMP, CBC, TSH #### [facility] Default [address] [place] [address] Protein [Mass/Vol] 7.2 g/dL Normal 6.1-8.1 [facility] m[facility] [place] [employer] Maker Comment on above: Order Comment: [facility] Testing performed at: [employer] [facility], [address] [place] [address], [address] [place] [address], [address] [place] [address], Septic Tank Setter: Jam Quintana MD [facility] Date/Time: [facility] Results Received Date/Time: [facility] Reported Date/Time: Performed By: #### F T4, FT3, CMP, CBC, TSH #### [facility] Default [address] [place] [address] Sodium [Moles/Vol] 139 mmol/L Normal 135-146 [facility] m[facility] [place] [employer] Maker Comment on above: Order Comment: [facility] Testing performed at: [employer] [facility], [address] [place] [address], [address] [place] [address], [address] [place] [address], Septic Tank Setter: Jam Quintana MD [facility] Date/Time: [facility] Results Received Date/Time: [facility] Reported Date/Time: Performed By: #### F T4, FT3, CMP, CBC, TSH #### [facility] Default [address] [place] [address] Urea nitrogen [Mass/Vol] 47 mg/dL High 7-25 [facility] Doll [employer] Maker Comment on above: Order Comment: [facility] Testing performed at: [employer] [facility], [address] [place] [address], [address] [place] [address], [address] [place] [address], Septic Tank Setter: Jam Quintana MD [facility] Date/Time: [facility] Results Received Date/Time: [facility] Reported Date/Time: Performed By: #### F T4, FT3, CMP, CBC, TSH #### [facility] Default [address] [place] [address] Urea nitrogen/Creatinine [Mass ratio] 18 mg/mg Normal 6-22 [facility] Doll Wig Maker Comment on above: Order Comment: [facility] Testing performed at: [employer] [facility], [address] [place] [address], [address] [place] [address], [address] [place] [address], Septic Tank Setter: Jam Quintana MD [facility] Date/Time: [facility] Results Received Date/Time: [facility] Reported Date/Time: Performed By: #### F T4, FT3, CMP, CBC, TSH #### [facility] Default [address] [place] [address] Free T3on 12-08-2021 Free T3 [Mass/Vol] 2.6 pg/mL Normal 2.3-4.2 [facility] Doll Wig Maker Comment on above: Order Comment: [facility] Testing performed at: [employer] [facility], [address] [place] [address], [address] [place] [address], [address] [place] [address], Septic Tank Setter: Jam Quintana MD [facility] Date/Time: [facility] Results Received Date/Time: [facility] Reported Date/Time: Performed By: #### F T4, FT3, CMP, CBC, TSH #### [facility] Default [address] [place] [address] Free T4on 12-08-2021 Free T4 [Mass/Vol] 0.8 ng/dL Normal 0.8-1.8 [facility] mendez [place] [employer] Maker Comment on above: Order Comment: [facility] performed at: [employer] [facility], [address] [place] [address], [address] [place], [address], Septic Tank Setter: Jam Quintana MD [facility] Date/Time: [facility] Results Received Date/Time: [facility] Reported Date/Time: Performed By: #### F T4, FT3, CMP, CBC, TSH #### [facility] Default [address] [place] [address] TSHon 12-08-2021 TSH Qn 10.37 m[IU]/L [facility] Doll [employer]ig Maker Comment on above: Order Comment: [facility] Testing performed at: [employer] [facility], [facility], [address] [place] [address], [address], Septic Tank Setter: Jam Quintana MD [facility] Date/Time: [facility] Results Received Date/Time: [facility] Reported Date/Time: Result Comment: Refe rence Range > or = 20 Years 0.40-4.50 Ranges First trimester 0.26-2.66 Second trimester 0.55-2.73 Third trimester 0.43-2.91 Performed By: #### F T4, FT3, CMP, CBC, TSH #### [facility] Default [address] [place] [address] Operative Reporton 9 Operative Report MR#: [id number] S [facility] Pt. Name: Guerrero Ramos Room #: 0 Discharge Date: Birthdate: 1980 OPERATIVE REPORT DATE OF SURGERY: 04/01/2019 SURGEON: Gayla Roque MD PREOPERATIVE DIAGNOSIS: Colon cancer. POSTOPERATIVE DIAGNOSIS: Normal surgical change. PROCEDURE: Diagnostic colonoscopy. ESTIMATED BLOOD LOSS: Zero. ANESTHESIA: MAC. COMPLICATIONS: None. INDICATION FOR PROCEDURE: This is a 38-year-old female, who had a left colectomy with Dr. Landers 3 years ago. I scoped her last year and it was normal. She did not have her followup chemotherapy after surgery like she was instructed for a T4 lesion, so she is on a rigorous screening schedule. Her father has a history of colon cancer, but she has not been genetically tested. She was scheduled for colonoscopy. DESCRIPTION OF PROCEDURE: Preoperatively, consent was obtained. She was brought to the operating room and placed in the left lateral decubitus position under MAC anesthesia. On digital rectal exam, no other masses or lesions were palpated. On entrance of the scope, the patient has a fair prep. She had normal postsurgical changes for the left colectomy and the cecum was reached without difficulty. On removal of the scope, no other masses or lesions were seen. She was taken to postanesthesia care unit in stable condition. We will repeat scope in 3 years. Electronically Signed by: Gayla Roque MD 04/02/2019 02:06 P Gayla Roque MD Date Dict: 04/01/2019/10:02 Larry/Gayla Roque MD Date Trans: 04/01/2019 11:10 Larry/rich [id number] cc: Kesha Fishman, N.P. [address] [place] [address] A [facility] [address] Mireya Landers MD [address] [facility] [address] Normal [facility] POC URINE PREGNANCYon 2018 HCG.beta subunit ( test) Ql (U) Negative Normal NEGATIVE [facility] Comment on above: Result Comment: Perf ormed in PACU Performed By: #### [id number] #### [facility] [address] [facility]. [address] Vital Signs Date Time Vital Sign Value Performing Clinician Facility 05-29-2025 18:00-0400 Diastolic blood pressure 100 mm[Hg] Lily Rosales NP-C Work Phone: [facility] 05-29-2025 18:00-0400 Heart rate 77 /min Lily Rosales TOY ELECTRIC TRAIN REPAIRER-C Work Phone: [facility] 05-29-2025 18:00-0400 Respiratory rate 16 /min Lily Rosales NP-C Work Phone: [facility] 05-29-2025 18:00-0400 SaO2% (BldA) [Mass fraction] 97 % Lily Rosales TOY ELECTRIC TRAIN REPAIRER-C Work Phone: [facility] 05-29-2025 18:00-0400 Systolic blood pressure 164 mm[Hg] Lily Rosales TOY ELECTRIC TRAIN REPAIRER-C Work Phone: [facility] 05-29-2025 12:08-0400 Body height 160.02 cm Lily Rosales TOY ELECTRIC TRAIN REPAIRER-C Work Phone: [facility] 05-29-2025 12:08-0400 Body temperature 98.1 [degF] Lily Rosales TOY ELECTRIC TRAIN REPAIRER-C Work Phone: [facility] 05-29-2025 12:08-0400 Body weight 132.44 kg Lily Rosales TOY ELECTRIC TRAIN REPAIRER-C Work Phone: [facility] 05-19-2025 10:36-0400 Body temperature 97.4 [degF] Lily Rosales TOY ELECTRIC TRAIN REPAIRER-C Work Phone: [facility] 05-19-2025 10:36-0400 Diastolic blood pressure 78 mm[Hg] Lily Rosales TOY ELECTRIC TRAIN REPAIRER-C Work Phone: [facility] 05-19-2025 10:36-0400 Heart rate 83 /min Lily Rosales TOY ELECTRIC TRAIN REPAIRER-C Work Phone: [facility] 05-19-2025 10:36-0400 SaO2% (BldA) [Mass fraction] 94 % Lily Rosales TOY ELECTRIC TRAIN REPAIRER-C Work Phone: [facility] 05-19-2025 10:36-0400 Systolic blood pressure 138 mm[Hg] Lily Rosales TOY ELECTRIC TRAIN REPAIRER-C Work Phone: [facility] 04-29-2025 13:21-0400 Diastolic blood pressure 91 mm[Hg] Lily Rosales TOY ELECTRIC TRAIN REPAIRER-C Work Phone: [facility] 04-29-2025 13:21-0400 Heart rate 71 /min Lily Rosales TOY ELECTRIC TRAIN REPAIRER-C Work Phone: [facility] 04-29-2025 13:21-0400 Respiratory rate 16 /min Lily Rosales TOY ELECTRIC TRAIN REPAIRER-C Work Phone: [facility] 04-29-2025 13:21-0400 SaO2% (BldA) [Mass fraction] 99 % Lily Rosales TOY ELECTRIC TRAIN REPAIRER-C Work Phone: [facility] 04-29-2025 13:21-0400 Systolic blood pressure 150 mm[Hg] Lily Rosales TOY ELECTRIC TRAIN REPAIRER-C Work Phone: [facility] 04-29-2025 12:06-0400 Inhaled oxygen flow rate 6 L/min Lily Rosales TOY ELECTRIC TRAIN REPAIRER-C Work Phone: [facility] 04-29-2025 08:15-0400 Body height 160.02 cm Lily Rosales TOY ELECTRIC TRAIN REPAIRER-C Work Phone: [facility] 04-29-2025 08:15-0400 Body temperature 98.1 [degF] Lily Rosales TOY ELECTRIC TRAIN REPAIRER-C Work Phone: [facility] 04-29-2025 08:15-0400 Body weight 132.44 kg Lily Rosales TOY ELECTRIC TRAIN REPAIRER-C Work Phone: [facility] 04-06-2025 14:13-0400 Body height 160.02 cm Lily Rosales TOY ELECTRIC TRAIN REPAIRER-C Work Phone: [facility] 04-06-2025 14:13-0400 Body mass index (BMI) [Ratio] 51.3 kg/m2 Lily Rosales TOY ELECTRIC TRAIN REPAIRER-C Work Phone: [facility] 04-06-2025 14:13-0400 Body temperature 97.8 [degF] Lily Rosales TOY ELECTRIC TRAIN REPAIRER-C Work Phone: [facility] 04-06-2025 14:130400 Body weight 131.54 kg Lilysoledad Kovacsillo TOY ELECTRIC TRAIN REPAIRER-C Work Phone: [facility] 04-06-2025 14:13-0400 Diastolic blood pressure 78 mm[Hg] Lily Rosales TOY ELECTRIC TRAIN REPAIRER-C Work Phone: [facility] 04-06-2025 14:130400 Heart rate 95 /min Lily Rosales TOY ELECTRIC TRAIN REPAIRER-C Work Phone: [facility] 04-06-2025 14:130400 SaO2% (BldA) [Mass fraction] 97 % Lily Rosales TOY ELECTRIC TRAIN REPAIRER-C Work Phone: [facility] 04-06-2025 14:130400 Systolic blood pressure 136 mm[Hg] Lily Rosales TOY ELECTRIC TRAIN REPAIRER-C Work Phone: [facility] 04-01-2025 13:28-0400 Body height 160 cm Lily Rosales HOSPICE DIRECTOR-TAN ROOM SUPERVISOR Work Phone: [facility] 04-01-2025 13:28-0400 Body mass index (BMI) [Ratio] 51.38 kg/m2 Lily Rosales HOSPICE DIRECTOR-TAN ROOM SUPERVISOR Work Phone: [facility] 04-01-2025 13:28-0400 Body temperature 97.39 [degF] Lily Rosales HOSPICE DIRECTOR-TAN ROOM SUPERVISOR Work Phone: [facility] 04-01-2025 13:28-0400 Body weight 131.54 kg Lily Rosales HOSPICE DIRECTOR-TAN ROOM SUPERVISOR Work Phone: [facility] 04-01-2025 13:28-0400 Diastolic blood pressure 84 mm[Hg] Lily Rosales HOSPICE DIRECTOR-TAN ROOM SUPERVISOR Work Phone: [facility] 04-01-2025 13:28-0400 Heart rate 80 /min Lily Rosales HOSPICE DIRECTOR-TAN ROOM SUPERVISOR Work Phone: [facility] 04-01-2025 13:28-0400 Respiratory rate 18 /min Lilysoledad Kovacsillo HOSPICE DIRECTOR-TAN ROOM SUPERVISOR Work Phone: [facility] 04-01-2025 13:28-0400 SaO2% (BldA) [Mass fraction] 97 % Lily Rosales HOSPICE DIRECTOR-TAN ROOM SUPERVISOR Work Phone: [facility] 04-01-2025 13:28-0400 Systolic blood pressure 138 mm[Hg] Lily Rosales HOSPICE DIRECTOR-TAN ROOM SUPERVISOR Work Phone: [facility] 03-12-2025 12:51-0400 Body height 160.02 cm Lily Rosales TOY ELECTRIC TRAIN REPAIRER-C Work Phone: [facility] 03-12-2025 12:51-0400 Body mass index (BMI) [Ratio] 52.2 kg/m2 Lily Rosales TOY ELECTRIC TRAIN REPAIRER-C Work Phone: [facility] 03-12-2025 12:51-0400 Body temperature 96.5 [degF] Lily Rosales TOY ELECTRIC TRAIN REPAIRER-C Work Phone: [facility] 03-12-2025 12:51-0400 Body weight 133.8 kg Lily Rosales TOY ELECTRIC TRAIN REPAIRER-C Work Phone: [facility] 03-12-2025 12:51-0400 Diastolic blood pressure 77 mm[Hg] Lily Rosales TOY ELECTRIC TRAIN REPAIRER-C Work Phone: [facility] 03-12-2025 12:51-0400 Heart rate 76 /min Lily Rosales TOY ELECTRIC TRAIN REPAIRER-C Work Phone: [facility] 03-12-2025 12:51-0400 Respiratory rate 18 /min Lily Rosales TOY ELECTRIC TRAIN REPAIRER-C Work Phone: [facility] 03-12-2025 12:51-0400 SaO2% (BldA) [Mass fraction] 95 % Lily Rosales TOY ELECTRIC TRAIN REPAIRER-C Work Phone: [facility] 03-12-2025 12:51-0400 Systolic blood pressure 126 mm[Hg] Lily Rosales TOY ELECTRIC TRAIN REPAIRER-C Work Phone: [facility] 03-04-2025 13:34-0400 Body height 160 cm Lily Rosales HOSPICE DIRECTOR-TAN ROOM SUPERVISOR Work Phone: [facility] 03-04-2025 13:34-0400 Body mass index (BMI) [Ratio] 51.03 kg/m2 Lily Rosales HOSPICE DIRECTOR-TAN ROOM SUPERVISOR Work Phone: [facility] 03-04-2025 13:34-0400 Body temperature 97.39 [degF] Lily Rosales HOSPICE DIRECTOR-TAN ROOM SUPERVISOR Work Phone: [facility] 03-04-2025 13:34-0400 Body weight 130.64 kg Lily Rosales HOSPICE DIRECTOR-TAN ROOM SUPERVISOR Work Phone: [facility] 03-04-2025 13:34-0400 Diastolic blood pressure 68 mm[Hg] Lily Kovacsillo HOSPICE DIRECTOR-TAN ROOM SUPERVISOR Work Phone: [facility] 03-04-2025 13:34-0400 Heart rate 85 /min Lily Rosales HOSPICE DIRECTOR-TAN ROOM SUPERVISOR Work Phone: [facility] 03-04-2025 13:34-0400 Respiratory rate 18 /min Lily Rosales HOSPICE DIRECTOR-TAN ROOM SUPERVISOR Work Phone: [facility] 03-04-2025 13:34-0400 SaO2% (BldA) [Mass fraction] 94 % Lily Kovacsillo HOSPICE DIRECTOR-TAN ROOM SUPERVISOR Work Phone: [facility] 03-04-2025 13:34-0400 Systolic blood pressure 128 mm[Hg] Lily Rosales HOSPICE DIRECTOR-TAN ROOM SUPERVISOR Work Phone: [facility] 02-17-2025 09:34-0400 Body height 160 cm Lily Rosales HOSPICE DIRECTOR-TAN ROOM SUPERVISOR Work Phone: [facility] 02-17-2025 09:34-0400 Body mass index (BMI) [Ratio] 51.21 kg/m2 Lily Kovacsillo HOSPICE DIRECTOR-TAN ROOM SUPERVISOR Work Phone: [facility] 02-17-2025 09:34-0400 Body temperature 98.6 [degF] Lily Kovacsillo HOSPICE DIRECTOR-TAN ROOM SUPERVISOR Work Phone: [facility] 02-17-2025 09:34-0400 Body weight 131.09 kg Lily Kovacsillo HOSPICE DIRECTOR-TAN ROOM SUPERVISOR Work Phone: [facility] 02-17-2025 09:34-0400 Diastolic blood pressure 80 mm[Hg] Lily Rosales HOSPICE DIRECTOR-TAN ROOM SUPERVISOR Work Phone: [facility] 02-17-2025 09:34-0400 Heart rate 79 /min Lily Rosales HOSPICE DIRECTOR-TAN ROOM SUPERVISOR Work Phone: [facility] 02-17-2025 09:34-0400 Respiratory rate 18 /min Lily Rosales HOSPICE DIRECTOR-TAN ROOM SUPERVISOR Work Phone: [facility] 02-17-2025 09:34-0400 SaO2% (BldA) [Mass fraction] 92 % Lily Rosales HOSPICE DIRECTOR-TAN ROOM SUPERVISOR Work Phone: [facility] 02-17-2025 09:34-0400 Systolic blood pressure 130 mm[Hg] Lily Rosales HOSPICE DIRECTOR-TAN ROOM SUPERVISOR Work Phone: [facility] 02-15-2025 00:13-0400 Diastolic blood pressure 80 mm[Hg] Lily Rosales TOY ELECTRIC TRAIN REPAIRER-C Work Phone: [facility] 02-15-2025 00:13-0400 Heart rate 70 /min Lily Rosales TOY ELECTRIC TRAIN REPAIRER-C Work Phone: [facility] 02-15-2025 00:13-0400 Respiratory rate 20 /min Lily Rosales TOY ELECTRIC TRAIN REPAIRER-C Work Phone: [facility] 02-15-2025 00:13-0400 SaO2% (BldA) [Mass fraction] 98 % Lily Kovacsillo TOY ELECTRIC TRAIN REPAIRER-C Work Phone: [facility] 02-15-2025 00:13-0400 Systolic blood pressure 149 mm[Hg] Lily Kovacsillo TOY ELECTRIC TRAIN REPAIRER-C Work Phone: [facility] 02-14-2025 19:33-0400 Body height 160.02 cm Lily Rosales TOY ELECTRIC TRAIN REPAIRER-C Work Phone: [facility] 02-14-2025 19:33-0400 Body temperature 98 [degF] Lily Rosales TOY ELECTRIC TRAIN REPAIRER-C Work Phone: [facility] 02-14-2025 19:33-0400 Body weight 130.18 kg Lily Rosales TOY ELECTRIC TRAIN REPAIRER-C Work Phone: [facility] 02-13-2025 10:27-0400 Body height 160 cm Miguel Ángel Miles HOSPICE DIRECTOR.TAN ROOM SUPERVISOR Work Phone: [facility] 02-13-2025 10:27-0400 Body mass index (BMI) [Ratio] 50.88 kg/m2 Miguel Ángel Miles HOSPICE DIRECTOR.TAN ROOM SUPERVISOR Work Phone: [facility] 02-13-2025 10:27-0400 Body temperature 96.4 [degF] Miguel Ángel Miles HOSPICE DIRECTOR.TAN ROOM SUPERVISOR Work Phone: [facility] 02-13-2025 10:27-0400 Body weight 130.27 kg Miguel Ángel Miles HOSPICE DIRECTOR.TAN ROOM SUPERVISOR Work Phone: [facility] Comment on above: Shoes on for balance 02-13-2025 10:27-0400 Diastolic blood pressure 84 mm[Hg] Miguel Ángel Miles HOSPICE DIRECTOR.TAN ROOM SUPERVISOR Work Phone: [facility] 02-13-2025 10:27-0400 Heart rate 90 /min Miguel Ángel Miles HOSPICE DIRECTOR.TAN ROOM SUPERVISOR Work Phone: [facility] 02-13-2025 10:27-0400 Respiratory rate 20 /min Miguel Ángel Hopson APRN.TAN ROOM SUPERVISOR Work Phone: [facility] 02-13-2025 10:27-0400 SaO2% (BldA) [Mass fraction] 98 % Miguel Ángel Hopson APRN.TAN ROOM SUPERVISOR Work Phone: [facility] Comment on above: [employer] 02-13-2025 10:27-0400 Systolic blood pressure 124 mm[Hg] Miguel Ángel Hopson APRN.TAN ROOM SUPERVISOR Work Phone: [facility] 02-04-2025 13:00-0400 Body height 160 cm Lily Rosales HOSPICE DIRECTOR-TAN ROOM SUPERVISOR Work Phone: [facility] 02-04-2025 13:00-0400 Body mass index (BMI) [Ratio] 51.07 kg/m2 Lily Rosales HOSPICE DIRECTOR-TAN ROOM SUPERVISOR Work Phone: [facility] 02-04-2025 13:00-0400 Body temperature 98.01 [degF] Lily Rosales HOSPICE DIRECTOR-TAN ROOM SUPERVISOR [facility]-04-[facility] 13:00-0400 Body weight 130.73 kg Lily Rosales HOSPICE DIRECTOR-TAN ROOM SUPERVISOR [facility] Phone: [facility] 02-04-2025 13:00-0400 Diastolic blood pressure 70 mm[Hg] Lily Rosales HOSPICE DIRECTOR-TAN ROOM SUPERVISOR Work Phone: [facility] 02-04-2025 13:00-0400 Heart rate 95 /min Lily Rosales HOSPICE DIRECTOR-TAN ROOM SUPERVISOR [facility] 02-04-2025 13:00-0400 Respiratory rate 18 /min Lily Rosales HOSPICE DIRECTOR-TAN ROOM SUPERVISOR Work Phone: [facility] 02-04-2025 13:00-0400 SaO2% (BldA) [Mass fraction] 98 % Lily Rosales HOSPICE DIRECTOR-TAN ROOM SUPERVISOR Work Phone: [facility] 02-04-2025 13:00-0400 Systolic blood pressure 124 mm[Hg] Lily Rosales HOSPICE DIRECTOR-TAN ROOM SUPERVISOR Work Phone: [facility] 01-12-2025 09:11-0400 Body height 160 cm Pacc 8 Work Phone: [facility] 01-12-2025 09:11-0400 Body mass index (BMI) [Ratio] 51.74 kg/m2 Pacc 8 Work Phone: [facility] 01-12-2025 09:11-0400 Body temperature 98.01 [degF] Pacc 8 Work Phone: [facility] 01-12-2025 09:11-0400 Body weight 132.5 kg Pacc 8 Work Phone: [facility] 01-12-2025 09:11-0400 Diastolic blood pressure 76 mm[Hg] Pacc 8 Work Phone: [facility] 01-12-2025 09:11-0400 Heart rate 81 /min Pacc 8 Work Phone: [facility] 01-12-2025 09:11-0400 SaO2% (BldA) [Mass fraction] 98 % Pac 8 Work Phone: [facility] 01-12-2025 09:11-0400 Systolic blood pressure 132 mm[Hg] Pac 8 Work Phone: [facility] 12-31-2024 09:53-0500 Body height 160 cm [employer] HOSPICE DIRECTOR.TAN ROOM SUPERVISOR Work Phone: [facility] 12-31-2024 09:53-0500 Body mass index (BMI) [Ratio] 50.84 kg/m2 [employer] HOSPICE DIRECTOR.TAN ROOM SUPERVISOR Work Phone: [facility] 12-31-2024 09:53-0500 Body weight 130.18 kg [employer] HOSPICE DIRECTOR.TAN ROOM SUPERVISOR Work Phone: [facility] 12-31-2024 09:53-0500 Diastolic blood pressure 80 mm[Hg] Miguel Ángel Hopson APRN.TAN ROOM SUPERVISOR Work Phone: [facility] 12-31-2024 09:53-0500 Heart rate 70 /min Miguel Ángel Hopson APRN.TAN ROOM SUPERVISOR Work Phone: [facility] 12-31-2024 09:53-0500 Systolic blood pressure 110 mm[Hg] Miguel Ángel Hopson APRN.TAN ROOM SUPERVISOR Work Phone: [facility] 12-17-2024 14:27-0500 Body height 160 cm Lily Rosales APRN-TAN ROOM SUPERVISOR Work Phone: [facility] 12-17-2024 14:27-0500 Body mass index (BMI) [Ratio] 51.58 kg/m2 Lily Rosales APRN-TAN ROOM SUPERVISOR Work Phone: [facility] 12-17-2024 14:27-0500 Body temperature 97.7 [degF] Lily Rosales APRN-TAN ROOM SUPERVISOR Work Phone: [facility] 12-17-2024 14:27-0500 Body weight 132.09 kg Lily Rosales APRN-TAN ROOM SUPERVISOR Work Phone: [facility] 12-17-2024 14:27-0500 Diastolic blood pressure 80 mm[Hg] Lily Rosales HOSPICE DIRECTOR-TAN ROOM SUPERVISOR Work Phone: [facility] 12-17-2024 14:27-0500 Heart rate 86 /min Lily Rosales APRN-TAN ROOM SUPERVISOR Work Phone: [facility] 12-17-2024 14:27-0500 Respiratory rate 16 /min Lily Rosales HOSPICE DIRECTOR-TAN ROOM SUPERVISOR Work Phone: [facility] 12-17-2024 14:27-0500 SaO2% (BldA) [Mass fraction] 97 % Lily Rosales HOSPICE DIRECTOR-TAN ROOM SUPERVISOR Work Phone: [facility] 12-17-2024 14:27-0500 Systolic blood pressure 110 mm[Hg] Lily Rosales APRN-TAN ROOM SUPERVISOR Work Phone: [facility] 11-19-2024 14:35-0500 Body height 160 cm Lily Rosales APRN-TAN ROOM SUPERVISOR Work Phone: [facility] 11-19-2024 14:35-0500 Body mass index (BMI) [Ratio] 51.76 kg/m2 Lily Rosales APRN-TAN ROOM SUPERVISOR Work Phone: [facility] 11-19-2024 14:35-0500 Body temperature 97.7 [degF] Lily Rosales APRN-TAN ROOM SUPERVISOR Work Phone: [facility] 11-19-2024 14:35-0500 Body weight 132.54 kg Lily Rosales APRN-TAN ROOM SUPERVISOR Work Phone: [facility] 11-19-2024 14:35-0500 Diastolic blood pressure 80 mm[Hg] Lily Rosales APRN-TAN ROOM SUPERVISOR Work Phone: [facility] 11-19-2024 14:35-0500 Heart rate 80 /min Lily Rosales APRN-TAN ROOM SUPERVISOR Work Phone: [facility] 11-19-2024 14:35-0500 Respiratory rate 18 /min Lily Rosales APRN-TAN ROOM SUPERVISOR Work Phone: [facility] 11-19-2024 14:35-0500 SaO2% (BldA) [Mass fraction] 96 % Lily Rosales APRN-TAN ROOM SUPERVISOR Work Phone: [facility] 11-19-2024 14:35-0500 Systolic blood pressure 110 mm[Hg] Lily Rosales HOSPICE DIRECTOR-TAN ROOM SUPERVISOR Work Phone: [facility] 11-11-2024 09:54-0500 Body height 160 cm Allen Rocha [facility] Work Phone: [facility] 11-11-2024 09:54-0500 Body mass index (BMI) [Ratio] 53.5 kg/m2 Allen Melecio DPM Work Phone: [facility] 11-11-2024 09:54-0500 Body weight 136.99 kg Allen Melecio DPM Work Phone: [facility] 11-11-2024 09:54-0500 Respiratory rate 16 /min Allen Melecio DPM Work Phone: [facility] 11-07-2024 11:40-0500 Body height 160 cm Miguel Ángel Miles HOSPICE DIRECTOR.TAN ROOM SUPERVISOR Work Phone: [facility] 11-07-2024 11:40-0500 Body mass index (BMI) [Ratio] 51.02 kg/m2 Miguel Ángel Miles HOSPICE DIRECTOR.TAN ROOM SUPERVISOR Work Phone: [facility] 11-07-2024 11:40-0500 Body weight 130.64 kg Miguel Ángel Miles HOSPICE DIRECTOR.TAN ROOM SUPERVISOR Work Phone: [facility] 10-08-2024 12:57-0500 Body height 160 cm Miguel Ángel Greg HOSPICE DIRECTOR.TAN ROOM SUPERVISOR Work Phone: [facility] 10-08-2024 12:57-0500 Body mass index (BMI) [Ratio] 53.5 kg/m2 Miguel Ángel Greg HOSPICE DIRECTOR.TAN ROOM SUPERVISOR Work Phone: [facility] 10-08-2024 12:57-0500 Body weight 136.99 kg Miguel Ángel Greg HOSPICE DIRECTOR.TAN ROOM SUPERVISOR Work Phone: [facility] 10-08-2024 12:57-0500 Diastolic blood pressure 70 mm[Hg] Miguel Ángel Greg HOSPICE DIRECTOR.TAN ROOM SUPERVISOR Work Phone: [facility] 10-08-2024 12:57-0500 Systolic blood pressure 110 mm[Hg] Miguel Ángel Greg HOSPICE DIRECTOR.TAN ROOM SUPERVISOR Work Phone: [facility] 10-03-2024 08:53-0500 Body height 160 cm Rebecca Schrader DPM Work Phone: [facility] 10-03-2024 08:53-0500 Body mass index (BMI) [Ratio] 53.5 kg/m2 Rebecca Schrader DPM Work Phone: [facility] 10-03-2024 08:53-0500 Body weight 136.99 kg Rebecca Schrader DPM Work Phone: [facility] 09-16-2024 01:15-0500 Diastolic blood pressure 66 mm[Hg] Lily Rosales TOY ELECTRIC TRAIN REPAIRER-C Work Phone: [facility] 09-16-2024 01:15-0500 Heart rate 73 /min Lily Rosales TOY ELECTRIC TRAIN REPAIRER-C Work Phone: [facility] 09-16-2024 01:15-0500 SaO2% (BldA) [Mass fraction] 95 % Lily Rosales TOY ELECTRIC TRAIN REPAIRER-C Work Phone: [facility] 09-16-2024 01:15-0500 Systolic blood pressure 160 mm[Hg] Lily Rosales TOY ELECTRIC TRAIN REPAIRER-C Work Phone: [facility] 09-15-2024 22:02-0500 Body height 160.02 cm Lily Rosales TOY ELECTRIC TRAIN REPAIRER-C Work Phone: [facility] 09-15-2024 22:02-0500 Body temperature 97.9 [degF] Lily Rosales TOY ELECTRIC TRAIN REPAIRER-C Work Phone: [facility] 09-15-2024 22:02-0500 Body weight 140.61 kg Lily Rosales TOY ELECTRIC TRAIN REPAIRER-C Work Phone: [facility] 09-15-2024 22:02-0500 Respiratory rate 20 /min Lily Rosales TOY ELECTRIC TRAIN REPAIRER-C Work Phone: [facility] 09-14-2024 01:30-0500 Blood Pressure Location Hossein Hoyos [facility] 09-14-2024 01:30-0500 Diastolic blood pressure 79 mm[Hg] Hossein Hoyos [facility] 09-14-2024 01:30-0500 Heart rate 76 /min Hossein Romain [facility] 09-14-2024 01:30-0500 Mean blood pressure 111 mm[Hg] Hossein Romain [facility] 09-14-2024 01:30-0500 Respiratory rate 18 /min Hossein Romain [facility] 09-14-2024 01:30-0500 SaO2% (BldA) [Mass fraction] 98 % Hossein Romain [facility] 09-14-2024 01:30-0500 Systolic blood pressure 176 mm[Hg] Hossein Romain [facility] 09-14-2024 01:00-0500 Diastolic blood pressure 137 mm[Hg] Hossein Romain [facility] 09-14-2024 01:00-0500 Heart rate 72 /min Hossein Romain [facility] 09-14-2024 01:00-0500 Mean blood pressure 169 mm[Hg] Hossein Romain [facility] 09-14-2024 01:00-0500 Respiratory rate 20 /min Hossein Romain [facility] 09-14-2024 01:00-0500 SaO2% (BldA) [Mass fraction] 100 % Hossein Romain [facility] 09-14-2024 01:00-0500 Systolic blood pressure 234 mm[Hg] Hossein Romain [facility] 09-14-2024 00:00-0500 Diastolic blood pressure 114 mm[Hg] Hossein Romain [facility] 09-14-2024 00:00-0500 Heart rate 75 /min Hossein Hoyos [facility] 09-14-2024 00:00-0500 Mean blood pressure 132 mm[Hg] Hossein Hoyos [facility] 09-14-2024 00:00-0500 SaO2% (BldA) [Mass fraction] 94 % Hossein Hoyos [facility] 09-14-2024 00:00-0500 Systolic blood pressure 167 mm[Hg] Hossein Hoyos [facility] 09-13-2024 21:47-0500 Body temperature 97.34 [degF] Hossein Hoyos [facility] 09-13-2024 21:47-0500 Heart rate 80 /min Hossein Hoyos [facility] 09-03-2024 10:57-0500 Body height 160 cm Miguel Ángel Greg HOSPICE DIRECTOR.TAN ROOM SUPERVISOR Work Phone: [facility] 09-03-2024 10:57-0500 Body mass index (BMI) [Ratio] 54.38 kg/m2 Miguel Ángel Greg HOSPICE DIRECTOR.TAN ROOM SUPERVISOR Work Phone: [facility] 09-03-2024 10:57-0500 Body weight 139.25 kg Miguel Ángel Greg HOSPICE DIRECTOR.TAN ROOM SUPERVISOR Work Phone: [facility] 09-03-2024 10:57-0500 Diastolic blood pressure 70 mm[Hg] Miguel Ángel Greg HOSPICE DIRECTOR.TAN ROOM SUPERVISOR Work Phone: [facility] 09-03-2024 10:57-0500 Heart rate 85 /min Miguel Ángel Greg HOSPICE DIRECTOR.TAN ROOM SUPERVISOR Work Phone: [facility] 09-03-2024 10:57-0500 Systolic blood pressure 110 mm[Hg] Miguel Ángel Greg HOSPICE DIRECTOR.TAN ROOM SUPERVISOR Work Phone: [facility] 07-30-2024 11:44-0400 Body height 160 cm Miguel Ángel Greg HOSPICE DIRECTOR.TAN ROOM SUPERVISOR Work Phone: [facility] 07-30-2024 11:44-0400 Body mass index (BMI) [Ratio] 54.56 kg/m2 Miguel Ángel Greg HOSPICE DIRECTOR.TAN ROOM SUPERVISOR Work Phone: [facility] 07-30-2024 11:44-0400 Body weight 139.71 kg Miguel Ángel Greg HOSPICE DIRECTOR.TAN ROOM SUPERVISOR Work Phone: [facility] 07-07-2024 09:17-0400 Body height 160 cm Miguel Ángel Greg HOSPICE DIRECTOR.TAN ROOM SUPERVISOR Work Phone: [facility] 07-07-2024 09:17-0400 Body mass index (BMI) [Ratio] 55.09 kg/m2 Miguel Ángel Greg HOSPICE DIRECTOR.TAN ROOM SUPERVISOR Work Phone: [facility] 07-07-2024 09:17-0400 Body temperature 98.1 [degF] Miguel Ángel Greg HOSPICE DIRECTOR.TAN ROOM SUPERVISOR Work Phone: [facility] 07-07-2024 09:17-0400 Body weight 141.07 kg Miguel Ángel Greg HOSPICE DIRECTOR.TAN ROOM SUPERVISOR Work Phone: [facility] 07-07-2024 09:17-0400 Diastolic blood pressure 83 mm[Hg] Miguel Ángel Greg HOSPICE DIRECTOR.TAN ROOM SUPERVISOR Work Phone: [facility] 07-07-2024 09:17-0400 Heart rate 93 /min Miguel Ángel Greg HOSPICE DIRECTOR.TAN ROOM SUPERVISOR Work Phone: [facility] 07-07-2024 09:17-0400 Systolic blood pressure 150 mm[Hg] Miguel Ángel Greg HOSPICE DIRECTOR.TAN ROOM SUPERVISOR Work Phone: [facility] 07-07-2024 08:14-0400 Body height 160 cm Jeramie Franco MD Work Phone: [facility] 07-07-2024 08:14-0400 Body mass index (BMI) [Ratio] 55.09 kg/m2 Jeramie Franco MD Work Phone: [facility] 07-07-2024 08:14-0400 Body temperature 98.1 [degF] Jeramie Franco MD Work Phone: [facility] 07-07-2024 08:14-0400 Body weight 141.07 kg Jeramie Franco MD Work Phone: [facility] 07-07-2024 08:14-0400 Diastolic blood pressure 83 mm[Hg] Jeramie Franco MD Work Phone: [facility] 07-07-2024 08:14-0400 Heart rate 93 /min Jeramie Franco MD Work Phone: [facility] 07-07-2024 08:14-0400 Systolic blood pressure 150 mm[Hg] Jeramie Franco MD Work Phone: [facility] 06-19-2024 10:04-0400 Body height 160.02 cm TOY ELECTRIC TRAIN REPAIRER-C Lily Rosales Work Phone: [facility] 06-19-2024 10:04-0400 Body mass index (BMI) [Ratio] 57.2 kg/m2 TOY ELECTRIC TRAIN REPAIRER-C Lily Rosales Work Phone: [facility] 06-19-2024 10:04-0400 Body temperature 96.2 [degF] TOY ELECTRIC TRAIN REPAIRER-C Lily Rosales Work Phone: [facility] 06-19-2024 10:04-0400 Body weight 146.62 kg TOY ELECTRIC TRAIN REPAIRER-C Lily Rosales Work Phone: [facility] 06-19-2024 10:04-0400 Diastolic blood pressure 91 mm[Hg] TOY ELECTRIC TRAIN REPAIRER-C Lily Rosales Work Phone: [facility] 06-19-2024 10:04-0400 Heart rate 83 /min TOY ELECTRIC TRAIN REPAIRER-C Lily Rosales Work Phone: [facility] 06-19-2024 10:04-0400 Respiratory rate 18 /min TOY ELECTRIC TRAIN REPAIRER-C Lily Rosales Work Phone: [address]22-2024 10:04-0400 SaO2% (BldA) [Mass fraction] 97 % TOY ELECTRIC TRAIN REPAIRER-C Lily Rosales Work Phone: [facility] 06-19-2024 10:04-0400 Systolic blood pressure 139 mm[Hg] TOY ELECTRIC TRAIN REPAIRER-C Lily Rosales Work Phone: [facility] 06-16-2024 11:51-0400 Diastolic blood pressure 85 mm[Hg] TOY ELECTRIC TRAIN REPAIRER-C Lily Rosales Work Phone: [facility] 06-16-2024 11:51-0400 Heart rate 77 /min TOY ELECTRIC TRAIN REPAIRER-C Lily Rosales Work Phone: [facility] 06-16-2024 11:51-0400 Respiratory rate 20 /min TOY ELECTRIC TRAIN REPAIRER-C Lily Rosales Work Phone: [facility] 06-16-2024 11:51-0400 SaO2% (BldA) [Mass fraction] 98 % TOY ELECTRIC TRAIN REPAIRER-C Lily Rosales Work Phone: [facility] 06-16-2024 11:51-0400 Systolic blood pressure 131 mm[Hg] TOY ELECTRIC TRAIN REPAIRER-C Lily Rosales Work Phone: [facility] 06-16-2024 08:21-0400 Body temperature 98 [degF] TOY ELECTRIC TRAIN REPAIRER-C Lily Rosales Work Phone: [facility] 06-16-2024 06:00-0400 Body weight 154.6 kg TOY ELECTRIC TRAIN REPAIRER-C Lily Rosales Work Phone: [facility] 06-12-2024 22:47-0400 Body height 160.02 cm TOY ELECTRIC TRAIN REPAIRER-C Lily Rosales Work Phone: [facility] 06-12-2024 22:47-0400 Body temperature 97.6 [degF] TOY ELECTRIC TRAIN REPAIRER-C Lily Rosales Work Phone: [facility] 06-12-2024 22:47-0400 Body weight 150.8 kg TOY ELECTRIC TRAIN REPAIRER-C Lily Rosales Work Phone: [facility] 06-12-2024 22:47-0400 Diastolic blood pressure 90 mm[Hg] TOY ELECTRIC TRAIN REPAIRER-C Lily Rosales Work Phone: [facility] 06-12-2024 22:47-0400 Heart rate 89 /min TOY ELECTRIC TRAIN REPAIRER-C Lily Rosales Work Phone: [facility] 06-12-2024 22:47-0400 Respiratory rate 18 /min TOY ELECTRIC TRAIN REPAIRER-C Lily Rosales Work Phone: [facility] 06-12-2024 22:47-0400 SaO2% (BldA) [Mass fraction] 100 % TOY ELECTRIC TRAIN REPAIRER-C Lily Rosales Work Phone: [facility] 06-12-2024 22:47-0400 Systolic blood pressure 145 mm[Hg] TOY ELECTRIC TRAIN REPAIRER-C Lily Rosales Work Phone: [facility] 06-12-2024 19:26-0400 Inhaled oxygen flow rate 2 L/min TOY ELECTRIC TRAIN REPAIRER-C Lily Rosales Work Phone: [facility] 05-20-2024 08:05-0400 Body mass index (BMI) [Ratio] 59.52 kg/m2 Jodi Zhou APRN.TAN ROOM SUPERVISOR Work Phone: [facility] 05-20-2024 08:05-0400 Body weight 152.41 kg Jodi Zhou APRN.TAN ROOM SUPERVISOR Work Phone: [facility] 05-11-2024 05:52-0400 Diastolic blood pressure 85 mm[Hg] DO Jorge Doshi Work Phone: [facility] 05-11-2024 05:52-0400 Heart rate 74 /min DO Jorge Doshi Work Phone: [facility] 05-11-2024 05:52-0400 Respiratory rate 18 /min DO Jorge Doshi Work Phone: [facility] 05-11-2024 05:52-0400 SaO2% (BldA) [Mass fraction] 94 % DO Jorge Doshi Work Phone: [facility] 05-11-2024 05:52-0400 Systolic blood pressure 177 mm[Hg] DO Jorge Doshi Work Phone: [facility] 05-10-2024 21:10-0400 Body height 160.02 cm DO Jorge Doshi Work Phone: [facility] 05-10-2024 21:10-0400 Body temperature 97.9 [degF] DO Jorge Doshi Work Phone: [facility] 05-10-2024 21:10-0400 Body weight 152.4 kg DO Jorge Doshi Work Phone: [facility] 04-10-2024 09:07-0400 Body height 160 cm Jeramie Franco MD Work Phone: [facility] 04-10-2024 09:07-0400 Body mass index (BMI) [Ratio] 59.38 kg/m2 Jeramie Franco MD Work Phone: [facility] 04-10-2024 09:07-0400 Body temperature 97.5 [degF] Jeramie Franco MD Work Phone: [facility] 04-10-2024 09:07-0400 Body weight 152.05 kg Jeramie Franco MD Work Phone: [facility] 04-10-2024 09:07-0400 Diastolic blood pressure 77 mm[Hg] Jeramie Franco MD Work Phone: [facility] 04-10-2024 09:07-0400 Heart rate 82 /min Jeramie Franco MD Work Phone: [facility] 04-10-2024 09:07-0400 Systolic blood pressure 145 mm[Hg] Jeramie Franco MD Work Phone: [facility] 02-14-2024 09:57-0400 Body height 160.02 cm DO Jorge Doshi Work Phone: [facility] 02-14-2024 09:57-0400 Body mass index (BMI) [Ratio] 60.7 kg/m2 DO Jorge Doshi Work Phone: [facility] 02-14-2024 09:57-0400 Body temperature 97 [degF] DO Jorge Doshi Work Phone: [facility] 02-14-2024 09:57-0400 Body weight 155.58 kg DO Jorge Doshi Work Phone: [facility] 02-14-2024 09:57-0400 Diastolic blood pressure 90 mm[Hg] DO Jorge Doshi Work Phone: [facility] 02-14-2024 09:57-0400 Heart rate 97 /min DO Jorge Doshi Work Phone: [facility] 02-14-2024 09:57-0400 Respiratory rate 18 /min DO Jorge Doshi Work Phone: [facility] 02-14-2024 09:57-0400 SaO2% (BldA) [Mass fraction] 97 % DO Jorge Doshi Work Phone: [facility] 02-14-2024 09:57-0400 Systolic blood pressure 152 mm[Hg] DO Jorge Doshi Work Phone: [facility] 02-11-2024 10:45-0400 Body height 160.02 cm DO Jorge Doshi Work Phone: [facility] 02-11-2024 10:26-0400 Body temperature 98 [degF] DO Jorge Doshi Work Phone: [facility] 02-11-2024 10:26-0400 Diastolic blood pressure 100 mm[Hg] DO Jorge Doshi Work Phone: [facility] 02-11-2024 10:26-0400 Heart rate 87 /min DO Jorge Doshi Work Phone: [facility] 02-11-2024 10:26-0400 SaO2% (BldA) [Mass fraction] 97 % DO Jorge Doshi Work Phone: [facility] 02-11-2024 10:26-0400 Systolic blood pressure 159 mm[Hg] DO Jorge Doshi Work Phone: [facility] 02-11-2024 08:00-0400 Inhaled oxygen flow rate 2 L/min DO Jorge Doshi Work Phone: [facility] 02-11-2024 06:00-0400 Body weight 155.9 kg DO Jorge Doshi Work Phone: [facility] 02-11-2024 03:11-0400 Respiratory rate 17 /min DO Jorge Doshi Work Phone: [facility] 02-08-2024 16:04-0400 Diastolic blood pressure 98 mm[Hg] DO Jorge Doshi Work Phone: [facility] 02-08-2024 16:04-0400 Heart rate 88 /min DO Jorge Doshi Work Phone: [facility] 02-08-2024 16:04-0400 Respiratory rate 20 /min DO Jorge Doshi Work Phone: [facility] 02-08-2024 16:04-0400 SaO2% (BldA) [Mass fraction] 92 % DO Jorge Doshi Work Phone: [facility] 02-08-2024 16:04-0400 Systolic blood pressure 180 mm[Hg] DO Jorge Doshi Work Phone: [facility] 02-08-2024 14:27-0400 Inhaled oxygen flow rate 2 L/min DO Jorge Doshi Work Phone: [facility] 02-08-2024 10:05-0400 Body height 160.02 cm DO Jorge Doshi Work Phone: [facility] 02-08-2024 10:05-0400 Body temperature 97.9 [degF] DO Jorge Doshi Work Phone: [facility] 02-08-2024 10:05-0400 Body weight 154.22 kg DO Jorge Doshi Work Phone: [facility] 12-26-2023 01:54-0500 Diastolic blood pressure 87 mm[Hg] Manuel Neel [facility] 12-26-2023 01:54-0500 Heart rate 72 /min Manuel Neel [facility] 12-26-2023 01:54-0500 Mean blood pressure 98 mm[Hg] Manuel Neel [facility] 12-26-2023 01:54-0500 SaO2% (BldA) [Mass fraction] 96 % Manuel Neel [facility] 12-26-2023 01:54-0500 Systolic blood pressure 120 mm[Hg] Manuel Neel [facility] 12-26-2023 01:00-0500 Diastolic blood pressure 78 mm[Hg] Manuel Neel [facility] 12-26-2023 01:00-0500 Heart rate 67 /min Manuel Neel [facility] 12-26-2023 01:00-0500 Mean blood pressure 96 mm[Hg] Manuel Neel [facility] 12-26-2023 01:00-0500 SaO2% (BldA) [Mass fraction] 94 % Manuel Neel [facility] 12-26-2023 01:00-0500 Systolic blood pressure 132 mm[Hg] Manuel Neel [facility] 12-26-2023 00:00-0500 Diastolic blood pressure 73 mm[Hg] Manuel Neel [facility] 12-26-2023 00:00-0500 Heart rate 68 /min Manuel Shiakh [facility] 12-26-2023 00:00-0500 Mean blood pressure 93 mm[Hg] Manuel Shaikh [facility] 12-25-2023 22:48-0500 Body temperature 98.24 [degF] Manuel Shaikh [facility] 12-25-2023 22:48-0500 Heart rate 77 /min Manuel Shaikh [facility] 12-25-2023 22:48-0500 Respiratory rate 16 /min Manuel Shaikh [facility] 12-12-2023 09:32-0500 Body mass index (BMI) [Ratio] 57.04 kg/m2 Laina Trevizo TOY ELECTRIC TRAIN REPAIRER Work Phone: [facility] 12-12-2023 09:32-0500 Body weight 155.49 kg Laina Trevizo TOY ELECTRIC TRAIN REPAIRER Work Phone: [facility] 12-12-2023 09:32-0500 Diastolic blood pressure 73 mm[Hg] Laina Trevizo TOY ELECTRIC TRAIN REPAIRER Work Phone: [facility] 12-12-2023 09:32-0500 Heart rate 76 /min Laina Trevizo TOY ELECTRIC TRAIN REPAIRER Work Phone: [facility] 12-12-2023 09:32-0500 Respiratory rate 14 /min Laina Trevizo TOY ELECTRIC TRAIN REPAIRER Work Phone: [facility] 12-12-2023 09:32-0500 SaO2% (BldA) [Mass fraction] 95 % Laina Trevizo TOY ELECTRIC TRAIN REPAIRER Work Phone: [facility] 12-12-2023 09:32-0500 Systolic blood pressure 135 mm[Hg] Laina Trevizo TOY ELECTRIC TRAIN REPAIRER Work Phone: [facility] 12-07-2023 20:26-0500 Diastolic blood pressure 94 mm[Hg] Fernando Alexis [facility] 12-07-2023 20:26-0500 Heart rate 82 /min Fernando Alexis [facility] 12-07-2023 20:26-0500 Mean blood pressure 115 mm[Hg] Fernando Alexis [facility] 12-07-2023 20:26-0500 Respiratory rate 16 /min Fernando Alexis [facility] 12-07-2023 20:26-0500 SaO2% (BldA) [Mass fraction] 97 % Fernando Alexis [facility] 12-07-2023 20:26-0500 Systolic blood pressure 157 mm[Hg] Fernando Alexis [facility] 12-07-2023 19:40-0500 Diastolic blood pressure 108 mm[Hg] Fernando Alexis [facility] 12-07-2023 19:40-0500 Heart rate 80 /min Fernando Alexis [facility] 12-07-2023 19:40-0500 Hourly Rounding Fernando Craige [facility] 12-07-2023 19:40-0500 Mean blood pressure 123 mm[Hg] Fernando Craige [facility] 12-07-2023 19:40-0500 Promise to Return Fernando Craige [facility] 12-07-2023 19:40-0500 Respiratory rate 16 /min Fernando Craige [facility] 12-07-2023 19:40-0500 SaO2% (BldA) [Mass fraction] 92 % Fernando Alexis [facility] 12-07-2023 19:40-0500 Systolic blood pressure 152 mm[Hg] Fernando Alexis [facility] 12-07-2023 18:40-0500 Diastolic blood pressure 107 mm[Hg] Fernando Alexis [facility] 12-07-2023 18:40-0500 Heart rate 73 /min Fernando Alexis [facility] 12-07-2023 18:40-0500 Hourly Rounding Fernando Alexis [facility] 12-07-2023 18:40-0500 Mean blood pressure 125 mm[Hg] Fernando Alexis [facility] 12-07-2023 18:40-0500 Respiratory rate 16 /min Fernando Alexis [facility] 12-07-2023 18:40-0500 SaO2% (BldA) [Mass fraction] 97 % Fernando Alexis [facility] 12-07-2023 18:40-0500 Systolic blood pressure 161 mm[Hg] Fernando Alexis [facility] 12-07-2023 17:40-0500 Heart rate 82 /min Fernando Alexis [facility] 12-07-2023 17:40-0500 Hourly Rounding Fernando Craige [facility] 12-07-2023 16:40-0500 Heart rate 80 /min Fernando Alexis [facility] 12-07-2023 16:40-0500 Promise to Return Fernando Alexis [facility] 12-07-2023 15:40-0500 Heart rate 80 /min Fernando Alexis [facility] 12-07-2023 14:40-0500 Body temperature 98.06 [degF] Fernando Alexis [facility] 12-07-2023 04:43-0500 Diastolic blood pressure 126 mm[Hg] Kaylinn Dokken [facility] 12-07-2023 04:43-0500 Heart rate 65 /min Kaylinn Dokken [facility] 12-07-2023 04:43-0500 Mean blood pressure 143 mm[Hg] Kaylinn Dokken [facility] 12-07-2023 04:43-0500 SaO2% (BldA) [Mass fraction] 93 % Kaylinn Dokken [facility] 12-07-2023 04:43-0500 Systolic blood pressure 177 mm[Hg] Kaylinn Dokken [facility] 12-07-2023 04:00-0500 Diastolic blood pressure 100 mm[Hg] Kaylinn Dokken [facility] 12-07-2023 04:00-0500 Heart rate 60 /min Kaylinn Dokken [facility] 12-07-2023 04:00-0500 Mean blood pressure 118 mm[Hg] Kaylinn Dokken [facility] 12-07-2023 04:00-0500 SaO2% (BldA) [Mass fraction] 95 % Kaylinn Dokken [facility] 12-07-2023 04:00-0500 Systolic blood pressure 154 mm[Hg] Kaylinn Dokken [facility] 12-07-2023 03:00-0500 Diastolic blood pressure 106 mm[Hg] Kaylinn Dokken [facility] 12-07-2023 03:00-0500 Heart rate 68 /min Kaylinn Dokken [facility] 12-07-2023 03:00-0500 Mean blood pressure 126 mm[Hg] Kaylinn Dokken [facility] 12-07-2023 03:00-0500 Systolic blood pressure 167 mm[Hg] Kaylinn Dokken [facility] 12-07-2023 00:30-0500 Respiratory rate 16 /min Kaylinn Dokken [facility] 12-07-2023 00:04-0500 gluc 300 mg/dL Kaylinn Dokken [facility] 12-07-2023 00:04-0500 gluc Kaylinn Dokken [facility] 12-06-2023 22:24-0500 Body temperature 97.88 [degF] Kaylinn Dokken [facility] 12-06-2023 22:24-0500 Heart rate 89 /min Kaylinn Dokken [facility] 12-06-2023 22:24-0500 Respiratory rate 16 /min Kaylinn Dokken [facility] 08-20-2023 20:47-0400 Diastolic blood pressure 89 mm[Hg] II Jayesh Escalante Work Phone: [facility] 08-20-2023 20:47-0400 Heart rate 69 /min II Jayesh Escalante Work Phone: [facility] 08-20-2023 20:47-0400 Respiratory rate 18 /min II Jayesh Escalante Work Phone: [facility] 08-20-2023 20:47-0400 SaO2% (BldA) [Mass fraction] 98 % II Jayesh Escalante Work Phone: [facility] 08-20-2023 20:47-0400 Systolic blood pressure 157 mm[Hg] II Jayesh Escalante Work Phone: [facility] 08-20-2023 15:36-0400 Body height 165.1 cm II Jayesh Escalante Work Phone: [facility] 08-20-2023 15:36-0400 Body weight 153.8 kg II Jayesh Escalante Work Phone: [facility] 08-20-2023 15:35-0400 Body temperature 99.1 [degF] II Jayesh Escalante Work Phone: [facility] 06-07-2023 14:40-0400 Body height 165.1 cm Allison Talia Other [employer] Other 06-07-2023 14:40-0400 Body mass index (BMI) [Ratio] 55.77 kg/m2 Allison Talia Other [employer] Other 06-07-2023 14:40-0400 Body temperature 96.9 [degF] Allison Talia Other [employer] Other 06-07-2023 14:40-0400 Body weight 152.05 kg Allison Talia Other [employer] Other 06-07-2023 14:40-0400 Diastolic blood pressure 83 mm[Hg] Allison Talia Other [employer] Other 06-07-2023 14:40-0400 Respiratory rate 20 /min Allison Talia Other [employer] Other 06-07-2023 14:40-0400 SaO2% (BldA) [Mass fraction] 93 % Allison Talia Other [facility] Other 06-07-2023 14:40-0400 Systolic blood pressure 131 mm[Hg] Allison Talia Other [facility] Other 01-19-2023 12:05-0400 Diastolic blood pressure 85 mm[Hg] [facility] 01-19-2023 12:05-0400 Heart rate 70 /min [facility] 01-19-2023 12:05-0400 Mean blood pressure 104 mm[Hg] [facility] 01-19-2023 12:05-0400 Respiratory rate 18 /min [facility] 01-19-2023 12:05-0400 SaO2% (BldA) [Mass fraction] 93 % [facility] 01-19-2023 12:05-0400 Systolic blood pressure 143 mm[Hg] [facility] 01-19-2023 11:00-0400 Diastolic blood pressure 83 mm[Hg] [facility] 01-19-2023 11:00-0400 Heart rate 76 /min [facility] 01-19-2023 11:00-0400 Mean blood pressure 103 mm[Hg] [facility] 01-19-2023 11:00-0400 Respiratory rate 20 /min [facility] 01-19-2023 11:00-0400 SaO2% (BldA) [Mass fraction] 95 % [facility] 01-19-2023 09:52-0400 Body temperature 98.42 [degF] [facility] 01-19-2023 09:52-0400 Diastolic blood pressure 100 mm[Hg] [facility] 01-19-2023 09:52-0400 Heart rate 84 /min [facility] 01-19-2023 09:52-0400 Respiratory rate 18 /min [facility] 01-19-2023 09:52-0400 SaO2% (BldA) [Mass fraction] 97 % [facility] 01-19-2023 09:52-0400 Systolic blood pressure 129 mm[Hg] [facility] 11-27-2022 16:10-0500 Diastolic blood pressure 92 mm[Hg] Pryor SALAM [facility] 11-27-2022 16:10-0500 Heart rate 69 /min Pryor SALAM [facility] 11-27-2022 16:10-0500 Mean blood pressure 115 mm[Hg] Pryor SALAM [facility] 11-27-2022 16:10-0500 Respiratory rate 26 /min Pryor SALAM [facility] 11-27-2022 16:10-0500 SaO2% (BldA) [Mass fraction] 98 % Pryor SALAM [facility] 11-27-2022 16:10-0500 Systolic blood pressure 161 mm[Hg] Pryor SALAM [facility] 11-27-2022 16:00-0500 Diastolic blood pressure 103 mm[Hg] Pryor SALAM [facility] 11-27-2022 16:00-0500 Heart rate 68 /min Pryor SALAM [facility] 11-27-2022 16:00-0500 Mean blood pressure 121 mm[Hg] Pryor SALAM [facility] 11-27-2022 16:00-0500 Respiratory rate 14 /min Pryor SALAM [facility] 11-27-2022 16:00-0500 SaO2% (BldA) [Mass fraction] 100 % Pryor SALAM [facility] 11-27-2022 16:00-0500 Systolic blood pressure 156 mm[Hg] Pryor SALAM [facility] 11-27-2022 15:55-0500 Diastolic blood pressure 93 mm[Hg] Pryor SALAM [facility] 11-27-2022 15:55-0500 Heart rate 67 /min Pryor SALAM [facility] 11-27-2022 15:55-0500 Mean blood pressure 114 mm[Hg] Pryor SALAM [facility] 11-27-2022 15:55-0500 Respiratory rate 29 /min Pryor SALAM [facility] 11-27-2022 15:55-0500 SaO2% (BldA) [Mass fraction] 97 % Pryor SALAM [facility] 11-27-2022 15:55-0500 Systolic blood pressure 157 mm[Hg] Pryor SALAM [facility] 11-27-2022 15:45-0500 Body temperature 97.16 [degF] Pryor SALAM [facility] 11-27-2022 13:32-0500 Blood Pressure Location Pryor SALAM [facility] 11-27-2022 13:32-0500 Body temperature 97.16 [degF] Pryor SALAM [facility] 11-13-2022 11:24-0500 Blood Pressure Location Fernando Culverkev [facility] [place] 11-13-2022 11:24-0500 Diastolic blood pressure 87 mm[Hg] Fernando Geena [facility] [place] 11-13-2022 11:24-0500 Heart rate 78 /min Fernando Geena [facility] [place] 11-13-2022 11:24-0500 SaO2% (BldA) [Mass fraction] 96 % Fernando Geena [facility] [place] 11-13-2022 11:24-0500 Systolic blood pressure 138 mm[Hg] Fernando Geena [facility] 10-25-2022 13:43-0500 Blood Pressure Location Alysia Pulido [facility] 10-25-2022 13:43-0500 Body temperature 97.16 [degF] Alysia Pulido [facility] 10-25-2022 13:43-0500 Diastolic blood pressure 89 mm[Hg] Alysia Pricez [facility] 10-25-2022 13:43-0500 Heart rate 79 /min Alysia Pulido [facility] 10-25-2022 13:43-0500 Systolic blood pressure 136 mm[Hg] Alysia Pulido [facility] 09-14-2022 16:00-0500 Body height 165.1 cm Jocelyn Garland Other [employer] Other 09-14-2022 16:00-0500 Body mass index (BMI) [Ratio] 55.57 kg/m2 Jocelyn Garland Other [employer] Other 09-14-2022 16:00-0500 Body temperature 98 [degF] Jocelyn Garland Other [employer] Other 09-14-2022 16:00-0500 Body weight 151.5 kg Jocelyn Garland Other [employer] Other 09-14-2022 16:00-0500 Diastolic blood pressure 77 mm[Hg] Jocelyn Garland Other [employer] Other 09-14-2022 16:00-0500 Respiratory rate 20 /min Jocelyn Garland Other [employer] Other 09-14-2022 16:00-0500 SaO2% (BldA) [Mass fraction] 96 % Jocelyn Garland Other [employer] Other 09-14-2022 16:00-0500 Systolic blood pressure 123 mm[Hg] Jocelyn Garland Other [employer] Other 08-24-2022 13:20-0400 Body height 165.1 cm Jocelyn Garland Other [employer] Other 08-24-2022 13:20-0400 Body mass index (BMI) [Ratio] 54.28 kg/m2 Jocelyn Garland Other [employer] Other 08-24-2022 13:20-0400 Body temperature 96.8 [degF] Jocelyn Garland Other [employer] Other 08-24-2022 13:20-0400 Body weight 147.96 kg Jocelyn Garland Other [employer] Other 08-24-2022 13:20-0400 Diastolic blood pressure 84 mm[Hg] Jocelyn Garland Other [employer] Other 08-24-2022 13:20-0400 Respiratory rate 20 /min Jocelyn Garland Other [employer] Other 08-24-2022 13:20-0400 SaO2% (BldA) [Mass fraction] 98 % Jocelyn Garland Other [employer] Other 08-24-2022 13:20-0400 Systolic blood pressure 117 mm[Hg] Jocelyn Garland Other [employer] Other 08-20-2022 19:00-0400 Diastolic blood pressure 70 mm[Hg] II Jayesh Escalante Work Phone: [facility] 08-20-2022 19:00-0400 Heart rate 80 /min II Jayesh Escalante Work Phone: [facility] 08-20-2022 19:00-0400 Respiratory rate 16 /min II Jayesh Escalante Work Phone: [facility] 08-20-2022 19:00-0400 SaO2% (BldA) [Mass fraction] 96 % II Jayesh Escalante Work Phone: [facility] 08-20-2022 19:00-0400 Systolic blood pressure 149 mm[Hg] II Jayesh Escalante Work Phone: [facility] 08-20-2022 14:52-0400 Body height 165.1 cm II Jayesh Escalante Work Phone: [facility] 08-20-2022 14:52-0400 Body temperature 97.8 [degF] II Jayesh Escalante Work Phone: [facility] 08-20-2022 14:52-0400 Body weight 149.68 kg II Jayesh Escalante Work Phone: [facility] 06-05-2022 11:50-0400 Body height 165.1 cm Gayla Goldbergault Other [employer] Other 06-05-2022 11:50-0400 Body mass index (BMI) [Ratio] 54.91 kg/m2 Gayla Goldbergault Other [employer] Other 06-05-2022 11:50-0400 Body temperature 98 [degF] Gayla Wellington Other [employer] Other 06-05-2022 11:50-0400 Body weight 149.69 kg Gayla Wellington Other [employer] Other 06-05-2022 11:50-0400 Diastolic blood pressure 65 mm[Hg] Gayla Wellington Other [employer] Other 06-05-2022 11:50-0400 Respiratory rate 18 /min Gayla Wellington Other [employer] Other 06-05-2022 11:50-0400 SaO2% (BldA) [Mass fraction] 94 % Gayla Goldbergault Other [employer] Other 06-05-2022 11:50-0400 Systolic blood pressure 130 mm[Hg] Gayla Wellington Other [employer] Other 04-14-2022 15:30-0400 Diastolic blood pressure 91 mm[Hg] Fernando Espinoza [facility] 04-14-2022 15:30-0400 Heart rate 75 /min Fernando Craige [facility] 04-14-2022 15:30-0400 Mean blood pressure 110 mm[Hg] Fernando Craige [facility] 04-14-2022 15:30-0400 SaO2% (BldA) [Mass fraction] 93 % Fernando Alexis [facility] 04-14-2022 15:30-0400 Systolic blood pressure 147 mm[Hg] Fernando Craige [facility] 04-14-2022 15:00-0400 Diastolic blood pressure 93 mm[Hg] Fernando Craige [facility] 04-14-2022 15:00-0400 Heart rate 78 /min Fernando Craige [facility] 04-14-2022 15:00-0400 SaO2% (BldA) [Mass fraction] 94 % Fernando Craige [facility] 04-14-2022 15:00-0400 Systolic blood pressure 145 mm[Hg] Fernando Craige [facility] 04-14-2022 14:33-0400 Nursing Progress Note Reason Other: pt up to restroom at this time with nurse to obtain urine sample. Fernando Craige [facility] 04-14-2022 14:05-0400 Diastolic blood pressure 75 mm[Hg] Fernando Craige [facility] 04-14-2022 14:05-0400 Heart rate 80 /min Fernando Craige [facility] 04-14-2022 14:05-0400 Mean blood pressure 95 mm[Hg] Fernando Craige [facility] 04-14-2022 14:05-0400 Respiratory rate 18 /min Fernando Espinoza [facility] 04-14-2022 14:05-0400 SaO2% (BldA) [Mass fraction] 96 % Fernando Espinoza [facility] 04-14-2022 14:05-0400 Systolic blood pressure 135 mm[Hg] Fernando Espinoza [facility] 04-14-2022 12:01-0400 Body temperature 97.88 [degF] Fernando Espinoza [facility] 04-14-2022 12:01-0400 Heart rate 93 /min Fernando Espinoza [facility] Encounters Encounter Date Encounter Type Care Provider Facility Start: 06-07-2025 End: 06-08-2025 Emergency department patient visit Elias Bryant Facility:[facility] Start: 05-29-2025 End: 05-29-2025 Emergency department patient visit Lily Rosales TOY ELECTRIC TRAIN REPAIRER-C Work Phone: -Emergency Room Work Phone: Start: 05-20-2025 End: 05-25-2025 Refill Lily Rosales HOSPICE DIRECTOR-TAN ROOM SUPERVISOR Work Phone: [facility] Comment on above: Overactive bladder Start: 05-19-2025 End: 05-25-2025 ambulatory Lily Rosales TOY ELECTRIC TRAIN REPAIRER-C Work Phone: [facility] Work Phone: Comment on above: Current mild episode of major depressive disorder, unspecified whether recurrent; Vertigo Start: 05-19-2025 End: 05-19-2025 Patient encounter procedure Vega Neville MD -[facility] Work Phone: Start: 05-14-2025 End: 05-14-2025 Orders Only Amina Holcomb HOSPICE DIRECTOR-TAN ROOM SUPERVISOR [facility] Phone: [facility] Start: 05-13-2025 End: 05-14-2025 Refill Susannah Conde CMA [facility] Comment on above: Social anxiety disor judson; Overactive bladder Start: 04-29-2025 End: 04-29-2025 ambulatory Vega Neville Facility:[facility] Start: 04-29-2025 Non-patient / Non-visit Vega monreal MD -[facility] Work Phone: Start: 04-15-2025 End: 04-15-2025 Patient encounter procedure Vega Neville MD -Pre-Surgical Testing Work Phone: Start: 04-15-2025 End: 04-15-2025 ambulatory Vega Neville Facility:[facility] Start: 04-15-2025 Encounter for preprocedural laboratory examination Vega Neville [facility] Start: 04-11-2025 End: 04-13-2025 Refill Lily Rosales HOSPICE DIRECTOR-TAN ROOM SUPERVISOR Work Phone: [facility] Comment on above: Social anxiety disor judson; Vertigo Start: 04-10-2025 End: 04-10-2025 Refill Lily Rosales HOSPICE DIRECTOR-TAN ROOM SUPERVISOR Work Phone: [facility] Comment on above: Type 2 diabetes sweta itus with hyperglycemia, without long-term current use of insulin ([facility]) Start: 04-08-2025 End: 04-08-2025 Telephone encounter Kidney Txp Coordinators Work Phone: [facility] Comment on above: Referral - Kidney Tx p Start: 04-06-2025 End: 04-06-2025 ambulatory Lily Rosales NP-C Work Phone: [facility] Work Phone: Start: 04-06-2025 End: 04-06-2025 Patient encounter procedure Lily CRUZ Work Phone: [facility] [place] Work Phone: Start: 04-01-2025 End: 04-01-2025 Office outpatient visit 25 minutes Lily Rosales HOSPICE DIRECTOR-TAN ROOM SUPERVISOR Work Phone: [facility] Comment on above: Type 2 diabetes sweta itus with stage 3 chronic kidney disease, unspecified whether prison insulin use, unspecified whether stage 3a or 3b CKD ([facility]) (Primary Dx) Start: 04-01-2025 End: 04-01-2025 ambulatory LILY ROSALES [facility] Comment on above: Type 2 diabetes sweta itus with hyperglycemia, with long-term current use of insulin ([facility]) Start: 03-31-2025 End: 03-31-2025 Orders Only Lily Rosales HOSPICE DIRECTOR-TAN ROOM SUPERVISOR Work Phone: [facility] Comment on above: Type 2 diabetes sweta itus with stage 3 chronic kidney disease, unspecified whether roasterman insulin use, unspecified whether stage 3a or 3b CKD ([facility]) (Primary Dx) Start: 03-26-2025 End: 03-26-2025 Patient encounter procedure Lily Rosales NP-C Work Phone: [facility] [place] Work Phone: Start: 03-26-2025 End: 03-26-2025 ambulatory Lily Rosales TOY ELECTRIC TRAIN REPAIRER-C Work Phone: [facility] Work Phone: Start: 03-17-2025 End: 03-17-2025 Orders Only Lily Rosales HOSPICE DIRECTOR-TAN ROOM SUPERVISOR Work Phone: [facility] Start: 03-16-2025 End: 03-17-2025 Refill Lily Rosales HOSPICE DIRECTOR-TAN ROOM SUPERVISOR Work Phone: [facility] Comment on above: Social anxiety disor judson Start: 03-12-2025 End: 03-12-2025 ambulatory Lily Rosales TOY ELECTRIC TRAIN REPAIRER-C Work Phone: [facility] Work Phone: Start: 03-12-2025 End: 03-12-2025 Patient encounter procedure Lily Rosales TOY ELECTRIC TRAIN REPAIRER-C Work Phone[facility] Work Phone: Start: 03-10-2025 End: 03-16-2025 Refill Lily Rosales HOSPICE DIRECTOR-TAN ROOM SUPERVISOR Work Phone: [facility] Start: 03-05-2025 End: 03-05-2025 Orders Only Miguel Ángeledison Hopson HOSPICE DIRECTOR.TAN ROOM SUPERVISOR Work Phone: General Surgery Comment on above: Type 2 diabetes sweta itus with chronic kidney disease, with long-term current use of insulin, unspecified CKD stage ([facility]) Start: 03-04-2025 End: 03-04-2025 Office outpatient visit 15 minutes Lily Rosales HOSPICE DIRECTOR-TAN ROOM SUPERVISOR Work Phone: [facility] Comment on above: Morbid obesity with BMI of 50.0-59.9, adult ([facility]) Start: 03-04-2025 End: 03-04-2025 ambulatory [facility] Start: 03-04-2025 Non-patient / Non-visit Ellie Rosales TOY ELECTRIC TRAIN REPAIRER-C Work Phone: [facility] Work Phone: Start: 02-17-2025 End: 02-17-2025 Office outpatient visit 15 minutes Lily Rosales HOSPICE DIRECTOR-TAN ROOM SUPERVISOR Work Phone: [facility] Comment on above: Right upper quadrant abdominal pain (Primary Dx); Status post surgery; Pain at surgical site Start: 02-17-2025 End: 02-17-2025 ambulatory [facility] Start: 02-16-2025 End: 02-16-2025 Orders Only Jeramie Franco MD Work Phone: General Surgery Comment on above: Incisional hernia, w ithout obstruction or gangrene (Primary Dx) Start: 02-14-2025 End: 02-15-2025 Emergency department patient visit Lily HARDYC Work Phone: [facility] Work Phone: Start: 02-13-2025 End: 02-13-2025 Patient encounter procedure Miguel Ángel Hopson HOSPICE DIRECTOR.TAN ROOM SUPERVISOR Work Phone: General Surgery Comment on above: Postoperative visit (Primary Dx); Type 2 diabetes mellitus with chronic kidney disease, with long-term current use of insulin, unspecified CKD stage ([facility]) Start: 02-13-2025 End: 02-13-2025 ambulatory MIGUEL ÁNGEL HOPSON Facility:[facility] Start: 02-09-2025 End: 02-09-2025 Orders Only Lily Rosales HOSPICE DIRECTOR-TAN ROOM SUPERVISOR Work Phone: [facility] Start: 02-08-2025 End: 02-09-2025 Refill Lily Rosales HOSPICE DIRECTOR-TAN ROOM SUPERVISOR Work Phone: [facility] Comment on above: Current mild episode of major depressive disorder, unspecified whether recurrent; Acquired hypothyroidism; Social anxiety disorder Start: 02-04-2025 End: 02-04-2025 Office outpatient visit 15 minutes Lily Rosales HOSPICE DIRECTOR-TAN ROOM SUPERVISOR Work Phone: [facility] Comment on above: Morbid obesity with BMI of 50.0-59.9, adult ([facility]) Start: 02-04-2025 End: 02-04-2025 ambulatory LILYSOLEDAD ROSALES [facility] Start: 01-23-2025 End: 01-23-2025 Telephone encounter Sathya Cazares HOSPICE DIRECTOR.TAN ROOM SUPERVISOR Work Phone: General Surgery Start: 01-22-2025 End: 01-22-2025 Refill Lily Rosales HOSPICE DIRECTOR-TAN ROOM SUPERVISOR Work Phone: [facility] Comment on above: Type 2 diabetes sweta itus with hyperglycemia, with long-term current use of insulin ([facility]) Start: 01-19-2025 End: 01-19-2025 Refill Lily Rosales HOSPICE DIRECTOR-TAN ROOM SUPERVISOR Work Phone: [facility] Medicine - Family Medicine Comment on above: Uncontrolled type 2 diabetes mellitus with hyperglycemia ([facility]) Start: 01-13-2025 End: 01-17-2025 Evaluation and management of inpatient JERAMIE FRANCO Facility:[facility] Start: 01-12-2025 End: 01-12-2025 ambulatory [facility] Facility:[facility] Start: 01-12-2025 Encounter for other preprocedural examination MIGUEL ÁNGEL [facility] Start: 01-12-2025 End: 01-12-2025 Admission to establishment Pacc Main 8 Work Phone: Pre Anesthesia Start: 01-12-2025 End: 01-12-2025 Anesthesia consultation Pac Main 8 Work Phone: Pre Anesthesia Comment on above: Pre-op evaluation (P rimary Dx); Snoring; Class 3 severe obesity due to excess calories with serious comorbidity and body mass index (BMI) of 50.0 to 59.9 in adult ([facility]); Secondary hypertension; Hyperlipidemia, unspecified hyperlipidemia type; Stage 4 chronic kidney disease ([facility]); Hypothyroidism, unspecified type; Incisional hernia, without obstruction or gangrene Start: 01-12-2025 End: 01-12-2025 Preprocedural examination done Pac Main 8 Work Phone: [facility] Work Phone: Start: 01-12-2025 Encounter for other preprocedural examination MIGUEL ÁNGEL HOPSON [facility] Start: 01-12-2025 End: 01-12-2025 ambulatory [facility] Facility:[facility] Start: 01-08-2025 End: 01-08-2025 Refill Lily Rosales HOSPICE DIRECTOR-TAN ROOM SUPERVISOR Work Phone: [facility] Internal Medicine - Family Medicine Comment on above: Social anxiety disor judson Start: 12-31-2024 End: 12-31-2024 Admission to same day surgery center Miguel Ángel Hopson MAGGI Work Phone: General Surgery Comment on above: Class 3 severe obesi ty due to excess calories with serious comorbidity and body mass index (BMI) of 50.0 to 59.9 in adult ([facility]) (Primary Dx); Type 2 diabetes mellitus with chronic kidney disease, with long-term current use of insulin, unspecified CKD stage ([facility]); Dietary counseling and surveillance; Hypertension, unspecified type Start: 12-31-2024 End: 12-31-2024 ambulatory MIGUEL ÁNGEL HOPSON Facility:[facility] Start: 12-31-2024 End: 12-31-2024 Telemedicine consultation with patient Miguel Ángel Hopson APRSusieTAN ROOM SUPERVISOR Work Phone: General Surgery Start: 12-17-2024 End: 12-17-2024 Office outpatient visit 25 minutes Lily Rosales APRN-TAN ROOM SUPERVISOR Work Phone: [facility] Internal Medicine - Family Medicine Comment on above: Type 2 diabetes sweta itus with hyperglycemia, with long-term current use of insulin ([facility]) (Primary Dx); Morbid obesity with BMI of 50.0-59.9, adult ([facility]); Acquired hypothyroidism; Type 2 diabetes mellitus with stage 3 chronic kidney disease, unspecified whether prison insulin use, unspecified whether stage 3a or 3b CKD ([facility]); Mild recurrent major depression ([facility]); Social anxiety disorder; Mixed hyperlipidemia; Overactive bladder Start: 12-17-2024 End: 12-17-2024 ambulatory LILY ROSALES [facility] Start: 12-10-2024 End: 12-10-2024 Orders Only Lily Rosales APRN-TAN ROOM SUPERVISOR Work Phone: [facility] Internal Medicine - Family Medicine Start: 12-09-2024 End: 12-10-2024 Refill Lily Rosales APRN-TAN ROOM SUPERVISOR Work Phone: [facility] Internal Medicine - Family Medicine Comment on above: Social anxiety disor judson Start: 11-26-2024 End: 12-09-2024 Telephone encounter Lily Rosales APRN-TAN ROOM SUPERVISOR Work Phone: [facility] Internal Medicine - Family Medicine Start: 11-19-2024 End: 11-19-2024 Office outpatient visit 15 minutes Lily Rosales HOSPICE DIRECTOR-TAN ROOM SUPERVISOR Work Phone: [facility] Internal Medicine - Family Medicine Comment on above: Morbid obesity with BMI of 50.0-59.9, adult ([facility]); Vertigo Start: 11-19-2024 End: 11-19-2024 ambulatory LILY J ROSALES [facility] Start: 11-11-2024 End: 11-11-2024 Bamboo flowsheet Allen Rocha DPM Work Phone: [facility] Start: 11-11-2024 End: 11-11-2024 Bamboo flowsheet Allen Rocha DPM Work Phone: [facility] Start: 11-11-2024 End: 11-11-2024 Office outpatient visit 15 minutes Allen Rocha DPM Work Phone: [facility] Comment on above: Sinus tarsi syndrome , right (Primary Dx); DJD (degenerative joint disease), ankle and foot, right; Diabetes mellitus due to underlying condition with diabetic polyneuropathy, unspecified whether prison insulin use ([facility]); Pain due to onychomycosis of toenails of both feet; Ankle instability, right; Peroneal tendinitis, left; Contracture of left ankle Start: 11-11-2024 End: 11-11-2024 ambulatory ALLEN ROCHA Not Available Start: 11-09-2024 End: 11-10-2024 Refill Lily Rosales HOSPICE DIRECTOR-TAN ROOM SUPERVISOR Work Phone: [facility] Internal Medicine - Family Medicine Comment on above: Overactive bladder; Current mild episode of major depressive disorder, unspecified whether recurrent ([facility]); Vertigo; Social anxiety disorder Start: 11-07-2024 End: 11-07-2024 Admission to same day surgery center Miguel Ángel Hopson APRN.TAN ROOM SUPERVISOR Work Phone: General Surgery Comment on above: Class 3 severe obesi ty due to excess calories with serious comorbidity and body mass index (BMI) of 50.0 to 59.9 in adult (HCC) (Primary Dx); Type 2 diabetes mellitus with chronic kidney disease, with long-term current use of insulin, unspecified CKD stage (HCC); Dietary counseling and surveillance; Hypertension, unspecified type Start: 11-07-2024 End: 11-07-2024 ambulatory MIGUEL ÁNGEL MARK ANTHONY Facility:[facility] Start: 11-07-2024 End: 11-07-2024 Telemedicine consultation with patient Miguel Ángel Hopson APRN.TAN ROOM SUPERVISOR Work Phone: General Surgery Start: 11-06-2024 End: 11-06-2024 Emergency department patient visit [facility] Start: 11-03-2024 End: 11-13-2024 Telephone encounter Abdiaziz Girard DO Work Phone: [facility] Internal Medicine - Family Medicine Start: 10-20-2024 End: 10-20-2024 ambulatory [facility] Start: 10-08-2024 End: 10-08-2024 Admission to same day surgery center Miguel Ángel Garza APRN.TAN ROOM SUPERVISOR Work Phone: General Surgery Comment on above: Class 3 severe obesi ty due to excess calories with serious comorbidity and body mass index (BMI) of 50.0 to 59.9 in adult (HCC) (Primary Dx); Type 2 diabetes mellitus with chronic kidney disease, with long-term current use of insulin, unspecified CKD stage (HCC); Dietary counseling and surveillance; Hypertension, unspecified type Start: 10-08-2024 End: 10-08-2024 ambulatory JERAMIE FRANCO Facility:[facility] Start: 10-08-2024 End: 10-08-2024 Telemedicine consultation with patient Miguel Ángel Garza APRN.TAN ROOM SUPERVISOR Work Phone: General Surgery Start: 10-03-2024 End: 10-03-2024 Bamboo flowsheet Rebecca Lencho Schrader DPM Work Phone: [facility] Start: 10-03-2024 End: 10-03-2024 Bamboo flowsheet Rebecca Musa Schrader DPM Work Phone: [facility] Start: 10-03-2024 End: 10-03-2024 ambulatory REBECCAJOSE MARRE Not Available Start: 10-03-2024 End: 10-03-2024 Office outpatient visit 25 minutes Rebeccajose Schrader DPM Work Phone: [facility] Comment on above: Sinus tarsi syndrome , right (Primary Dx); Ankle instability, right; DJD (degenerative joint disease), ankle and foot, right; Posterior tibial tendonitis, right; Type II or unspecified type diabetes mellitus with neurological manifestations, not stated as uncontrolled(250.60) ([facility]) Start: 10-03-2024 End: 10-03-2024 ambulatory REBECCAJOSE SCHRADER Not Available Start: 09-23-2024 End: 09-23-2024 ambulatory TROY Victor Hugo [facility] Start: 09-22-2024 End: 09-22-2024 ambulatory [facility] Start: 09-15-2024 End: 09-16-2024 Emergency department patient visit Lily Rosales TOY ELECTRIC TRAIN REPAIRER-C Work Phone: [facility] Work Phone: Start: 09-13-2024 End: 09-14-2024 Emergency department patient visit Hossein Hoyos [facility] Start: 09-08-2024 End: 09-09-2024 Refill Lily Rosales APRN-TAN ROOM SUPERVISOR Work Phone: [facility] Internal Medicine - Family Medicine Comment on above: Social anxiety disor judson Start: 09-03-2024 End: 09-03-2024 Admission to same day surgery center Miguel Ángel Garza APRN.TAN ROOM SUPERVISOR Work Phone: General Surgery Comment on above: Class 3 severe obesi ty due to excess calories with serious comorbidity and body mass index (BMI) of 50.0 to 59.9 in adult (HCC) (Primary Dx); Type 2 diabetes mellitus with chronic kidney disease, with long-term current use of insulin, unspecified CKD stage (HCC); Dietary counseling and surveillance; Hypertension, unspecified type Start: 09-03-2024 End: 09-03-2024 ambulatory [facility] Facility:[facility] Start: 09-03-2024 End: 09-03-2024 Telemedicine consultation with patient Miguel Ángel Garza APRNОльгаTAN ROOM SUPERVISOR Work Phone: General Surgery Start: 08-25-2024 End: 08-25-2024 [facility] Start: 08-25-2024 End: 08-25-2024 ambulatory [facility] Start: 07-30-2024 End: 07-30-2024 Admission to same day surgery center Miguel Ángel Garza APRSusieTAN ROOM SUPERVISOR Work Phone: General Surgery Comment on above: Class 3 severe obesi ty due to excess calories with serious comorbidity and body mass index (BMI) of 50.0 to 59.9 in adult (HCC) (Primary Dx); Type 2 diabetes mellitus with chronic kidney disease, with long-term current use of insulin, unspecified CKD stage (HCC); Dietary counseling and surveillance; Hypertension, unspecified type Start: 07-30-2024 End: 07-30-2024 ambulatory [facility] Facility:[facility] Start: 07-30-2024 End: 07-30-2024 Telemedicine consultation with patient Miguel Ángel Garza APRNОльгаTAN ROOM SUPERVISOR Work Phone: General Surgery Start: 07-21-2024 End: 07-21-2024 ambulatory [facility] Start: 07-08-2024 End: 07-08-2024 ambulatory Jeramie Franco MD Work Phone: [facility] Comment on above: 01.13.25 Cure (Open Complex AWR 5 hours los 4) Start: 07-08-2024 End: 07-08-2024 Preprocedural examination done Jeramie Franco MD Work Phone: [facility] Start: 07-07-2024 End: 07-07-2024 ambulatory MIGUEL ÁNGEL HOPSON Facility:[facility] Start: 07-07-2024 End: 07-07-2024 ambulatory SELF Facility:[facility] Start: 07-07-2024 End: 07-07-2024 Patient encounter procedure Jeramie Franco MD Work Phone: General Surgery Comment on above: Incisional hernia, w ithout obstruction or gangrene (Primary Dx) Class 3 severe obesi ty due to excess calories with serious comorbidity and body mass index (BMI) of 50.0 to 59.9 in adult ([facility]) (Primary Dx); Type 2 diabetes mellitus with chronic kidney disease, with long-term current use of insulin, unspecified CKD stage ([facility]); Dietary counseling and surveillance; Hypertension, unspecified type; Obstructive sleep apnea; Vitamin D deficiency Start: 06-23-2024 End: 06-23-2024 ambulatory [facility] Start: 06-23-2024 End: 06-23-2024 ambulatory [facility] Start: 06-19-2024 End: 06-19-2024 ambulatory TOY ELECTRIC TRAIN REPAIRER-C Lily Rosales Work Phone: [facility] Work Phone: Start: 06-19-2024 End: 06-19-2024 Patient encounter procedure TOY ELECTRIC TRAIN REPAIRER-Lis Rosales Work Phone: [facility] Work Phone: Start: 06-14-2024 Non-patient / Non-visit TOY ELECTRIC TRAIN REPAIRER-C Gabriella Rosales Work Phone: [facility] Work Phone: Start: 06-14-2024 End: 06-16-2024 Evaluation and management of inpatient TOY ELECTRIC TRAIN REPAIRER-C Lily Rosales Work Phone: [facility] [place] [facility] Work Phone: Start: 06-12-2024 Evaluation and management of inpatient TOY ELECTRIC TRAIN REPAIRER-C Lily Rosales Work Phone: [facility] [place] [facility] Work Phone: Start: 06-12-2024 observation encounter TOY ELECTRIC TRAIN REPAIRER-C Kailyn Rosales Work Phone: [facility] Work Phone: Start: 05-21-2024 End: 05-21-2024 ambulatory [facility] Start: 05-20-2024 End: 05-20-2024 Admission to same day surgery center Jodi Zhou TAN ROOM SUPERVISOR Work Phone: General Surgery Comment on above: Class 3 severe obesi ty due to excess calories with serious comorbidity and body mass index (BMI) of 50.0 to 59.9 in adult (HCC) (Primary Dx); Snoring Start: 05-20-2024 End: 05-20-2024 Telemedicine consultation with patient Jodi Zhou DEBORAH.TAN ROOM SUPERVISOR Work Phone: General Surgery Start: 05-20-2024 End: 05-20-2024 ambulatory JODI ZHOU Facility:[facility] Start: 05-10-2024 End: 05-11-2024 Emergency department patient visit DO Jorge Doshi Work Phone: [facility] Work Phone: Start: 05-05-2024 End: 05-05-2024 ambulatory [facility] Start: 04-10-2024 End: 04-10-2024 Patient encounter procedure Jeramie Franco MD Work Phone: General Surgery Comment on above: Incisional hernia, w ithout obstruction or gangrene (Primary Dx) Start: 02-25-2024 End: 02-25-2024 ambulatory DAWOOD CLEMENTE V Not Available Start: 02-14-2024 End: 02-14-2024 ambulatory DO Jorge Doshi Work Phone: [facility] Work Phone: Start: 02-14-2024 End: 02-14-2024 Patient encounter procedure DO Jorge Doshi Work Phone: [facility] Work Phone: Start: 02-09-2024 Non-patient / Non-visit DO Dayana c Doshi Work Phone: [facility] Work Phone: Start: 02-08-2024 Non-patient / Non-visit DO Dayana c Doshi Work Phone: [facility] Work Phone: Start: 02-08-2024 End: 02-11-2024 Evaluation and management of inpatient DO Jorge Doshi Work Phone: [facility] [place] [facility] Work Phone: Start: 02-05-2024 End: 02-05-2024 ambulatory [facility] Start: 01-28-2024 ambulatory [facility] Start: 01-28-2024 Encounter for other preprocedural examination [facility] Start: 01-01-2024 End: 01-01-2024 ambulatory [facility] Start: 12-25-2023 End: 12-26-2023 Emergency department patient visit Manuel Shaikh [facility] Start: 12-12-2023 Chart abstracting Laina luis TOY ELECTRIC TRAIN REPAIRER Work Phone: [facility] Start: 12-12-2023 End: 12-12-2023 Office outpatient visit 25 minutes Laina Trevizo NP Work Phone: [facility] Comment on above: Acute cystitis with hematuria (Primary Dx); Diabetes mellitus without complication ([facility]); Primary osteoarthritis of left knee; Overactive bladder Start: 12-12-2023 End: 12-12-2023 ambulatory LAINA TREVIZO Not Available Start: 12-07-2023 End: 12-07-2023 Emergency department patient visit Fernando Espinoza [facility] Start: 12-06-2023 End: 12-07-2023 Emergency department patient visit Thomas Juarez Dogriselda [facility] Start: 11-19-2023 End: 11-19-2023 ambulatory ALLEN ROCHA Not Available Start: 08-20-2023 End: 08-20-2023 Emergency department patient visit II Jayesh Escalante Work Phone: [facility] Work Phone: Start: 06-07-2023 End: 06-07-2023 ambulatory Allison Talia Other [employer] Other Start: 06-07-2023 Office outpatient vi sit 25 minutes Allison Talia [facility] Start: 03-06-2023 End: 03-07-[address] JAYESH ESCALANTE Facility: Start: 02-27-2023 End: 02-27-2023 ambulatory Jocelyn Garland Other [employer] Other Start: 02-27-2023 Telephone encounter Jocelyn Garland [facility] [employer] [employer] Start: 01-19-2023 End: 01-19-2023 Emergency department patient visit Chip Buchanan [facility] Start: 11-27-2022 End: 11-27-2022 Patient encounter procedure Konstantin ROCHE [facility] Start: 11-13-2022 End: 11-13-2022 Patient encounter procedure Fernando Seay [facility] [place] Start: 10-25-2022 End: 10-25-2022 Patient encounter procedure Alysia Pulido [facility] Start: 09-14-2022 End: 09-14-2022 ambulatory Essam Elashi Other [employer] Other Start: 09-14-2022 Office outpatient vi sit 25 minutes Essam Elashi [facility] Start: 09-07-2022 End: 09-07-2022 ambulatory Essam Elashi Other [employer] Other Start: 09-07-2022 Telephone encounter Essam Elashi [facility] [employer] Start: 08-24-2022 End: 08-24-2022 ambulatory Essam Elashi Other [employer] Other Start: 08-24-2022 Office outpatient ne w 45 minutes Essam Elashi [facility] Start: 08-20-2022 End: 08-20-2022 Emergency department patient visit II Jayesh Escalante Work Phone: [facility] Start: 08-14-2022 End: 08-14-[address] JAYESH ESCALANTE Facility:[facility] Start: 07-30-2022 End: 07-30-[address] JAYESH ESCALANTE Facility:[facility] Start: 06-05-2022 End: 06-05-2022 ambulatory Gayla Paris Other [employer] Other Start: 06-05-2022 Office outpatient ne w 20 minutes Gayla Paris [facility] Start: 06-05-2022 End: 06-05-2022 Patient encounter procedure II Jayesh Escalante Work Phone: [facility] Start: 04-14-2022 End: 04-14-2022 Emergency department patient visit Fernando Espinoza [facility] Start: 04-01-2019 End: 04-02-2019 Patient encounter procedure GAYLA ROQUE Facility:[facility] Procedures Date Procedure Procedure Detail Performing Clinician Start: 05-29-2025 Screening for occult blood in feces Lily Rosales TOY ELECTRIC TRAIN REPAIRER-C Work Phone: Start: 05-29-2025 CT of abdomen and pelvis without contrast Lily Rosales TOY ELECTRIC TRAIN REPAIRER-C Work Phone: Start: 05-29-2025 Plain chest X-ray Lily Rosalse TOY ELECTRIC TRAIN REPAIRER- C Work Phone: Start: 04-01-2025 Hemoglobin glycosylated a1c Lily Sims Yi stillo HOSPICE DIRECTOR-TAN ROOM SUPERVISOR Work Phone: Start: 04-01-2025 Adult depression screening assessment Lily Rosales HOSPICE DIRECTOR-TAN ROOM SUPERVISOR Work Phone: Start: 03-26-2025 US angiography Lily Rosales TOY ELECTRIC TRAIN REPAIRER- C Work Phone: Start: 03-04-2025 Adult depression screening assessment Lily Rosales HOSPICE DIRECTOR-TAN ROOM SUPERVISOR Work Phone: Start: 02-17-2025 Adult depression screening assessment Lily Rosales HOSPICE DIRECTOR-TAN ROOM SUPERVISOR Work Phone: Start: 02-14-2025 Plain chest X-ray Lily Rosales TOY ELECTRIC TRAIN REPAIRER- C Work Phone: Start: 02-04-2025 Adult depression screening assessment Lily Rosales HOSPICE DIRECTOR-TAN ROOM SUPERVISOR Work Phone: Start: 12-17-2024 Hemoglobin glycosylated a1c Lily Bethany Richmond stillo HOSPICE DIRECTOR-TAN ROOM SUPERVISOR Work Phone: Start: 12-17-2024 Adult depression screening assessment Lily Roslaes HOSPICE DIRECTOR-TAN ROOM SUPERVISOR Work Phone: Start: 10-03-2024 Radex foot complete minimum 3 views Rebecca Marre DPM Work Phone: Start: 09-15-2024 Computed tomography of abdomen and pelvis with contrast Lily Rosales TOY ELECTRIC TRAIN REPAIRER-C Work Phone: Start: 06-23-2024 Microalbumin [Mass/volume] in Urine by Test strip Lily Rosales HOSPICE DIRECTOR-TAN ROOM SUPERVISOR Work Phone: Start: 06-12-2024 Computed tomography of abdomen and pelvis with contrast TOY ELECTRIC TRAIN REPAIRER-C Lily Rosales Work Phone: Start: 06-12-2024 Urine culture TOY ELECTRIC TRAIN REPAIRER-C Lily Kovacsamandeep o Work Phone: Start: 05-21-2024 Follow-up visit Follow-up LILY ROSALES Start: 05-11-2024 CT of abdomen and pelvis without contrast TOY ELECTRIC TRAIN REPAIRER-C Lily Rosales Work Phone: Start: 05-05-2024 Adult depression screening assessment Lily Rosales HOSPICE DIRECTOR-TAN ROOM SUPERVISOR Work Phone: Start: 02-10-2024 Plain X-ray abdomen DO Jorge Doshi Work Phone: Start: 02-09-2024 Plain X-ray abdomen DO Jorge Doshi Work Phone: Start: 02-08-2024 Diagnostic radiography of abdomen DO Jorge Doshi Work Phone: Start: 02-08-2024 SARS-CoV-2, Influenza & RSV (PCR) DO Jorge Doshi Work Phone: Start: 02-08-2024 Urine culture DO Jorge Doshi Work Phone: Start: 02-08-2024 CT of abdomen and pelvis without contrast DO Jorge Doshi Work Phone: Start: 08-20-2023 SARS-CoV-2, Influenza & RSV (PCR) II Jayesh Escalante Work Phone: Start: 11-27-2022 Colonoscopy Konstantin ROCHE Start: 08-20-2022 CT of abdomen and pelvis without contrast II Jayesh Escalante Work Phone: Start: 06-05-2022 Plain X-ray of right hand II Jayesh Barton y Work Phone: Start: 03-21-2021 Mammography Laina Trevizo TOY ELECTRIC TRAIN REPAIRER Work Phone: Start: 04-01-2019 ANES LWR INTST SCR COLSC MILAGROS MCKEON Start: 04-01-2019 Colorectal scrn; hi risk ind GAYLA Laurent MYA Start: 04-01-2019 Colonoscopy Miguel Ángeledison Garza HOSPICE DIRECTOR.TAN ROOM SUPERVISOR Work Phone: Cholecystectomy Alysia Head tz Colonoscopy Alysia Lastmetz H/O: surgery Status post surgery Lily Rosales HOSPICE DIRECTOR-TAN ROOM SUPERVISOR Work Phone: Operation on colon Alysia Raúl escobedo Plan of Treatment Date Care Activity Detail Author Start: 04-01-2029 Screening for malign ant neoplasm of colon [facility] Start: 04-01-2026 Adult BMI Follow Up Plan Adult BMI F ollow Up Plan [facility] Start: 04-01-2026 Adult BMI Screening Adult BMI Screen ing [facility] Start: 04-01-2026 Depression Screening Depression Scre ening [facility] Start: 04-01-2026 Tobacco Screening Tobacco Screening [facility] Start: 03-04-2026 Adult BMI Follow Up Plan Adult BMI F ollow Up Plan [facility] Start: 03-04-2026 Adult BMI Screening Adult BMI Screen ing [facility] Start: 03-04-2026 Depression Screening Depression Scre ening [facility] Start: 03-04-2026 Tobacco Screening Tobacco Screening [facility] Start: 02-17-2026 Adult BMI Screening Adult BMI Screen ing [facility] Start: 02-17-2026 Depression Screening Depression Scre ening [facility] Start: 02-17-2026 Tobacco Screening Tobacco Screening [facility] Start: 02-04-2026 Adult BMI Follow Up Plan Adult BMI F ollow Up Plan [facility] Start: 02-04-2026 Adult BMI Screening Adult BMI Screen ing [facility] Start: 02-04-2026 Depression Screening Depression Scre ening [facility] Start: 02-04-2026 Tobacco Screening Tobacco Screening [facility] Start: 01-16-2026 Complete blood count Hemoglobin/Edd [facility] Start: 01-16-2026 Creatinine measurement Serum Creatin ine [facility] Start: 01-12-2026 Complete blood count Hemoglobin/Edd tocnvt [facility] Start: 01-12-2026 Creatinine measurement Serum Creatin ine [facility] Start: 12-17-2025 Adult BMI Follow Up Plan Adult BMI F ollow Up Plan [facility] [facility] Start: 12-17-2025 Adult BMI Screening Adult BMI Screen ing [facility] Start: 12-17-2025 Depression Screening Depression Scre ing [facility] Start: 12-17-2025 Tobacco Screening Tobacco Screening [facility] Start: 11-19-2025 Adult BMI Follow Up Plan Adult BMI F ollow Up Plan [facility] Start: 11-19-2025 Adult BMI Screening Adult BMI Screen ing [facility] Start: 11-19-2025 Tobacco Screening Tobacco Screening [facility] Start: 11-06-2025 Adult BMI Screening Adult BMI Screen ing [facility] Start: 11-06-2025 Tobacco Screening Tobacco Screening [facility] Start: 10-20-2025 Adult BMI Follow Up Plan Adult BMI F ollow Up Plan [facility] Start: 10-08-2025 BP Controlled (<130/80) BP Controlle d (<130/80) [facility] Start: 09-23-2025 Creatinine measurement Serum Creatin ine [facility] Start: 09-23-2025 Hepatitis B screening Urine Al bumin:Creatinine Ratio [facility] Start: 08-25-2025 Adult BMI Follow Up Plan Adult BMI F ollow Up Plan [facility] Start: 08-25-2025 Adult BMI Screening Adult BMI Screen ing [facility] Start: 08-25-2025 Tobacco Screening Tobacco Screening [facility] Start: 08-06-2025 End: 08-06-2025 Patient encounter procedure 08/06/2025 10:40 AM EDT Office Visit [facility] [address] [place] [address] Amina Holcomb, HOSPICE DIRECTOR-TAN ROOM SUPERVISOR [address] [place] [address] [facility] Start: 07-17-2025 End: 07-17-2025 Patient encounter procedure 07/17/2025 9:20 AM EDT [facility] [address] [place] [address] Amina Holcomb, HOSPICE DIRECTOR-TAN ROOM SUPERVISOR [address] [place] [address] [facility] Start: 07-16-2025 Hemoglobin A1c measurement HbA1C [facility] Start: 06-29-2025 Influenza vaccination [facility] Start: 06-23-2025 Hepatitis B screening Urine Al bumin:Creatinine Ratio [facility] Start: 06-23-2025 Urine screening for protein Urine Microalbumin [facility] Start: 06-16-2025 Hemoglobin A1c measurement HbA1C [facility] Start: 05-29-2025 [facility] Start: 05-12-2025 End: 05-12-2025 Admission to same day surgery center 05/12/2025 11:30 AM EDT [facility] General Surgery [address] [id number] Miguel Ángel Hopson, HOSPICE DIRECTOR.TAN ROOM SUPERVISOR [address] [address] Virtual/Zoom Weight General Surgery Comment on above: Virtual/Zoom Weight Start: 05-05-2025 Depression Screening Depression Scre ening [facility] Start: 05-05-2025 Diabetic foot examination Diabetic Foot Exam [facility] Start: 04-29-2025 End: 04-29-2025 [facility] Start: 04-01-2025 End: 04-01-2025 Patient encounter procedure 04/01/2025 1:40 PM EDT Office Visit [facility] [address] [place] [address] Lily Rosales, HOSPICE DIRECTOR-TAN ROOM SUPERVISOR [address] [place] [address] [facility] Start: 03-26-2025 Ultrasound (US) dopp ler flow mapping of vein of upper limb US venous mapping [facility] Start: 03-26-2025 US Upper extremity v ein - [facility] Start: 03-12-2025 Patient referral [facility] Work Phone: Start: 03-04-2025 End: 03-04-2025 Patient encounter procedure 03/04/2025 1:40 PM EDT Office Visit [facility] [address] [place] [address] Lily Rosales, HOSPICE DIRECTOR-TAN ROOM SUPERVISOR [address] [place] [address] [facility] Start: 02-23-2025 Hemoglobin A1c measurement HbA1C [facility] Start: 02-14-2025 Plain chest X-ray XR chest 2V* [facility] Start: 02-14-2025 XR Chest 2 Views [facility] Start: 02-13-2025 End: 02-13-2025 Patient encounter procedure 02/13/2025 10:30 AM EDT Office Visit General Surgery [address] [id number] Miguel Ángel Hopson APRN.TAN ROOM SUPERVISOR [address] [id number] 3-[address] Franco or Michaela Hopson General Surgery Comment on above: 3-[address] Gerson Hopson Start: 02-04-2025 Creatinine measurement Serum Creatin ine [facility] Start: 02-04-2025 End: 02-04-2025 Patient encounter procedure 02/04/2025 1:00 PM EDT Office Visit [facility] [address] [place] [phone] Lily Rosales, HOSPICE DIRECTOR-TAN ROOM SUPERVISOR [address] [place] [phone] [facility] - Family [facility] Start: 01-13-2025 End: 01-13-2025 Admission to same day surgery center 01/13/2025 7:30 AM EDT - 01/13/2025 12:45 PM EDT Surgery Admitting [address] [place] [address] Jeramie Franco MD [address] [place] [address] HERNIORRHAPHY VENTRAL RECURRENT REDUCIBLE GREATER THAN 10cm Admitting Comment on above: HERNIORRHAPHY VENTRA L RECURRENT REDUCIBLE GREATER THAN 10cm Start: 01-13-2025 End: 01-13-2025 HERNIORRHAPHY VENTRAL RECURRENT REDUCIBLE GREATER THAN 10cm HERNIORRHAPHY VENTRAL RECURRENT REDUCIBLE GREATER THAN 10cm Preoperative examination Incisional hernia, without obstruction or gangrene 01/13/2025 7:30 AM EDT [facility] Start: 01-13-2025 Subsequent hospital visit by physician Admitting Comment on above: Preoperative examina tion [Z01.818] Start: 01-12-2025 End: 01-12-2025 Patient encounter procedure Cardiology Comment on above: pre op Start: 01-12-2025 End: 01-12-2025 Anesthesia consultation 01/12/2025 9:20 AM EDT PAT Pre Anesthesia [address] [place] [address] 8, Pacc [address] [place] [address] PACC Pre Anesthesia Comment on above: PACC Start: 12-17-2024 End: 12-17-2024 Patient encounter procedure 12/17/2024 2:40 PM EST Office Visit [facility] [address] [place] [address] Lily Rosales, HOSPICE DIRECTOR-TAN ROOM SUPERVISOR [address] [place] [address] [facility] Start: 11-30-2024 End: 02-17-2025 aPTT in Platelet poor plasma by Coagulation assay ACTIVATED PARTIAL THROMBOPLASTIN TIME Lab Routine Preoperative examination Incisional hernia, without obstruction or gangrene Expected: 11/30/2024, Expires: 02/17/2025 [facility] Comment on above: Expected: 11/30/2024 , Expires: 02/17/2025 Start: 11-30-2024 End: 02-17-2025 CBC W Auto Differential panel - Blood COMPLETE BLOOD COUNT AND DIFFERENTIAL Lab Routine Preoperative examination Incisional hernia, without obstruction or gangrene Expected: 11/30/2024, Expires: 02/17/2025 [facility] Comment on above: Expected: 11/30/2024 , Expires: 02/17/2025 Start: 11-30-2024 End: 02-17-2025 Comprehensive metabolic 2000 panel - Serum or Plasma COMPREHENSIVE METABOLIC PANEL Lab Routine Preoperative examination Incisional hernia, without obstruction or gangrene Expected: 11/30/2024, Expires: 02/17/2025 [facility] Comment on above: Expected: 11/30/2024 , Expires: 02/17/2025 Start: 11-30-2024 End: 02-17-2025 CONFIRM BLOOD TYPE CONFIRM BLOOD TYPE Blood Bank Routine Preoperative examination Incisional hernia, without obstruction or gangrene Expected: 11/30/2024, Expires: 02/17/2025 [facility] Comment on above: Expected: 11/30/2024 , Expires: 02/17/2025 Start: 11-30-2024 End: 02-17-2025 PT panel - Platelet poor plasma by Coagulation assay PROTHROMBIN TIME Lab Routine Preoperative examination Incisional hernia, without obstruction or gangrene Expected: 11/30/2024, Expires: 02/17/2025 [facility] Comment on above: Expected: 11/30/2024 , Expires: 02/17/2025 Start: 11-24-2024 End: 11-24-2024 Patient encounter procedure 11/24/2024 2:00 PM EST Office Visit [facility] [address] [place] [address] Yandel Charlton DPM [address] [place], [place] [phone] [facility] Start: 11-19-2024 End: 11-19-2024 Patient encounter procedure 11/19/2024 10:40 AM EST Office Visit [facility] [address] [place] [phone] Lily Rosales, HOSPICE DIRECTOR-TAN ROOM SUPERVISOR [address] [place] [phone] [facility] Start: 11-11-2024 End: 11-11-2024 Patient encounter procedure 11/11/2024 10:00 AM EST Office Visit [facility] [address] [place] [phone] Allen Rocha DPM [address] [address] Sinus tarsi syndrome, right (Primary Dx); DJD (degenerative joint disease), ankle and foot, right; Diabetes mellitus due to underlying condition with diabetic polyneuropathy, unspecified whether prison insulin use (CMS/HCC); Pain due to onychomycosis of toenails of both feet; Ankle instability, right [facility] Comment on above: Sinus tarsi syndrome , right (Primary Dx); DJD (degenerative joint disease), ankle and foot, right; Diabetes mellitus due to underlying condition with diabetic polyneuropathy, unspecified whether prison insulin use (CMS/HCC); Pain due to onychomycosis of toenails of both feet; Ankle instability, right Start: 11-06-2024 End: 11-06-2024 Patient encounter procedure 11/06/2024 8:30 AM EST Office Visit [facility] [address] [place] [phone] Rebecca Schrader, DPM [address] [place] [address] [facility] Start: 11-05-2024 Hemoglobin A1c measurement HbA1C [facility] Start: 10-03-2024 End: 10-03-2024 Patient encounter procedure 10/03/2024 9:00 AM EST Office Visit [facility] [address] [place] [address] Rebecca Schrader, DPM [address] [place], [place] [phone] Arrived [facility] Comment on above: Arrived Start: 09-22-2024 End: 09-22-2024 Patient encounter procedure 09/22/2024 1:00 PM EST Office Visit [facility] [address] [place] [address] Lily Rosales, HOSPICE DIRECTOR-TAN ROOM SUPERVISOR [address] [place] [address] [facility] Start: 09-15-2024 Urine culture [facility] Start: 09-15-2024 Bacteria identified in Urine by Culture Urine Culture [facility] Start: 2024 Screening for malign ant neoplasm of colon [facility] Start: 07-30-2024 End: 07-30-2024 Admission to same day surgery center 07/30/2024 11:30 AM EDT [facility] Surgery [address] [address] Miguel Ángel Garza, HOSPICE DIRECTOR.TAN ROOM SUPERVISOR [address] [address] Virtual/Zoom 4wk F/up Weight General Surgery Comment on above: Virtual/Zoom 4wk F/u p Weight Start: 07-07-2024 End: 07-07-2024 Patient encounter procedure 07/07/2024 8:50 AM EDT Office Visit General Surgery [address] [phone] Jeramie Franco MD [address] [place] [address] 3 MTH F/U for Incisional hernia, without obstruction or gangrene General Surgery Comment on above: 3 MTH F/U for Incisi onal hernia, without obstruction or gangrene Start: 06-29-2024 Covid-19 Vaccine ( season) Covid-19 Vaccine ( season) [facility] Start: 06-29-2024 Covid-19 Vaccine ( season) Covid-19 Vaccine ( season) [facility] Start: 06-29-2024 Influenza vaccination [facility] Start: 06-16-2024 [facility] Start: 06-14-2024 Referral to prepleater [facility] Start: 06-12-2024 Hospital admission [facility] Start: 06-12-2024 Bacteria identified in Urine by Culture [facility] Start: 05-20-2024 End: 05-20-2024 Admission to same day surgery center 05/20/2024 8:00 AM EDT [facility] General Surgery [address] [phone] Jodi Zhou APRN.TAN ROOM SUPERVISOR [address] [place], [place] [phone] Per Bul General Surgery Comment on above: Per Bulow Start: 05-11-2024 CT Abdomen and Pelvi s WO contrast [facility] Start: 05-11-2024 CT of abdomen and pe lvis without contrast CT abdomen pelvis wo con [facility] Start: 04-27-2024 Influenza vaccination Influenza Vacc ine (#1) [facility] Comment on above: Postponed from 06/29 (Patient Refused) Start: 02-11-2024 End: 02-11-2024 [facility] Start: 02-10-2024 Comprehensive metabo lic 1999 panel - Serum or Plasma [facility] Start: 02-10-2024 [facility] Start: 02-09-2024 Referral to prepleater [facility] Start: 02-09-2024 aPTT in Platelet poo r plasma by Coagulation assay [facility] Start: 02-09-2024 Comprehensive metabo lic 1999 panel - Serum or Plasma [facility] Start: 02-09-2024 [facility] Start: 02-08-2024 Physical therapy procedure [facility] Start: 02-08-2024 Referral to general surgeon [facility] Start: 02-08-2024 Referral to occupati onal therapist [facility] Start: 02-08-2024 Hospital admission [facility] Start: 02-08-2024 [facility] Start: 02-08-2024 Bacteria identified in Urine by Culture [facility] Start: 01-28-2024 End: 01-28-2024 Patient encounter procedure 01/28/2024 9:30 AM EDT Office Visit [facility] [address] [place] [phone] Allen Rocha DPM [address] [facility] [address] [place] [address] [facility] Start: 01-09-2024 End: 01-09-2024 Patient encounter procedure 01/09/2024 10:00 AM EDT Office Visit [facility] [address] [facility] [address] [place] [address] Jayesh Escalante MD [address] [place] [facility] [address] [place] [address] [facility] Start: 01-07-2024 Hemoglobin A1c measurement Diabetes: Hemoglobin A1C [facility] Start: 12-12-2023 End: 12-12-2023 Patient encounter procedure 12/12/2023 9:30 AM EST Office [facility] [address] [facility] [address] [place] [address] Laina Trevizo NP [address] [place] [facility] [address] [place] [address] [facility] Start: 10-29-2023 Behavioral Health Screening Behavioral Health Screening [facility] Start: 06-29-2023 Covid-19 Vaccine () Covid-19 Vaccine () [facility] Start: 03-21-2022 Screening for malign ant neoplasm of breast [facility] Start: 2009 Screening for malign ant neoplasm of cervix [facility] Start: 2000 Screening for malign ant neoplasm of cervix [facility] Start: 1998 DTaP,Tdap and Td Vaccines (1 - Tdap) DTaP,Tdap and Td Vaccines (1 - Tdap) [facility] Start: 1998 Hepatitis B Vaccine (1 of 3 - 19+ 3-dose series) Hepatitis B Vaccine (1 of 3 - 19+ 3-dose series) [facility] Start: 1998 Pneumococcal vaccination Pneum ococcal Vaccine (1 of 2 - PCV) [facility] Start: 1998 Urine microalbumin profile DTaP,Tdap,Td Vaccine (1 - Tdap) [facility] Start: 1997 Annual PCP Team [employer] Consultant heather Disease Visit Annual PCP Team Chronic Disease Visit [facility] Start: 1997 Anxiety Screening Anxiety Screening [facility] Start: 1997 BP Controlled (<130/80) BP Controlle d (<130/80) [facility] Start: 1997 Depression Screening Depression Scre ening [facility] Start: 1997 Hepatitis B surface antibody level LDL Cholesterol [facility] Start: 1997 Hepatitis C screening Hepatitis C Sc rosario [facility] Start: 1997 HIV screening HIV Screening [facility] Start: 1989 Diabetic foot examination Diabetic Foot Exam [facility] Start: 1989 Glaucoma screening [facility] Start: 1985 Pneumococcal vaccination Pneum ococcal Vaccine (1 of 2 - PCV) [facility] Start: 1979 Glaucoma screening Diabetic Op hthalmology Exam [facility] Start: 1979 Screening for malign ant neoplasm of colon [facility] Bacteria identified in Urine by Culture [facility] End: 03-18-2026 CT Abdomen and Pelvis WO contrast CT ABD/PEL WO IVCON Radiology Routine Incisional hernia, without obstruction or gangrene 1 Occurrences starting 02/16/2025 until 03/18/2026 [facility] Work Phone: Comment on above: 1 Occurrences starti ng 02/16/2025 until 03/18/2026 End: 07-08-2025 ECG COMPLETE ECG COMPLETE ECG Routine Preoperative examination Incisional hernia, without obstruction or gangrene 1 Occurrences starting 07/08/2024 until 07/08/2025 [facility] Comment on above: 1 Occurrences starti ng 07/08/2024 until 07/08/2025 HERNIORRHAPHY VENTRA L RECURRENT REDUCIBLE GREATER THAN 10cm HERNIORRHAPHY VENTRAL RECURRENT REDUCIBLE GREATER THAN 10cm Preoperative examination Incisional hernia, without obstruction or gangrene [facility] End: 05-26-2025 HOME SLEEP APNEA TEST (HSAT) HOME SLEEP APNEA TEST (HSAT) Procedures Routine Snoring 1 Occurrences starting 05/26/2024 until 05/26/2025 [facility] Work Phone: Comment on above: 1 Occurrences starti ng 05/26/2024 until 05/26/2025 Immunofixation for Urine [facility] Patient Education [facility] Work Phone: Patient referral [facility] Work Phone: REFER FOR ADMIT INTERVIEW REFER FOR ADMIT INTERVIEW Procedures Routine Preoperative examination Incisional hernia, without obstruction or gangrene Ordered: 07/08/2024 [facility] Work Phone: Comment on above: Ordered: 07/08/2024 Renal function 2000 panel - Serum or Plasma [facility] Renal function 1999 panel - Serum or Plasma [facility] Renal function 2000 panel - Serum or Plasma [facility] US AV fistula [facility] Immunizations Immunization Date Immunization Notes Care Provider Diana cantu 11-07-2021 SARS-CoV-2 (COVID-19 ) mRNA-1273 vaccine Alysia Pricez [facility] 04-19-2021 SARS-CoV-2 (COVID-19 ) mRNA-1273 vaccine Alysia Pulido [facility] 03-21-2021 SARS-CoV-2 (COVID-19 ) mRNA-1273 vaccine Alysia Pulido [facility] NEGATED: Highlighted row has not occurred!11-13-2022 influenza virus vaccine, unspecified formulation Fernando Seay [facility] [place] NEGATED: Highlighted row has not occurred!10-25-2022 influenza virus vaccine, unspecified formulation Alysia Pulido [facility] Payers Date Payer Category Payer Unknown [id number] 2 2024 Self-pay [id number] 2024 Unknown [id number] 2024 Unknown [id number] 2023 Managed Care Other (unspecified) [employer] Member Subscriber Plan / Payer (Effective 2023-Present) Name: Guerrero Ramos Relation to Subscriber: Self Name: Guerrero Ramos Payer ID: Not on file Type: Not on file Address: [place] [id number] 2022 Private Health Insurance [id number] .[id number]. [id number] 2015 Unknown 1.2.840.368724. 1.13.693.2. 7.3.022287.315 1979 Unknown [id number] 2.16.840.1.930127.3.579.2. 647 1979 Unknown [id number] 2.16.840.1.146391.3.579.2. 593 1979 Unknown [id number] 2.16.840.1.403302.3.579.2. 593 1979 Unknown [id number] 2.16.840.1.586524.3.579.2. 593 1979 Unknown [id number] 2.16.840.1.925860.3.579.2. 1286 1979 Unknown [id number] 2.16.840.1.203988.3.579.2. 1286 1979 Unknown [id number] 2.16.840.1.511305.3.579.2. 1286 1979 Unknown [id number] 2.16.840.1.022352.3.579.2. 1286 1979 Unknown [id number] 2.16.840.1.895601.3.579.2. 727 1979 Unknown [id number] 2.16.840.1.070206.3.579.2. 727 1979 Unknown [id number] 2.16.840.1.014505.3.579.2. 727 1979 Unknown [id number] 2.16.840.1.074580.3.579.2. 727 1979 Unknown [id number] 2.16.840.1.392391.3.579.2. 727 1979 Unknown [id number] 2.16.840.1.530736.3.579.2. 1286 1979 Unknown [id number] 2.16.840.1.612070.3.579.2. 1286 1979 Unknown [id number] 2.16.840.1.562208.3.579.2. 1286 1979 Unknown [id number] 2.16.840.1.233847.3.579.2. 1259 1979 Unknown [id number] 2.16.840.1.350990.3.579.2. 1259 1979 Unknown [id number] 2.16.840.1.436718.3.579.2. 1259 1979 Unknown [id number] 2.16.840.1.373980.3.579.2. 9 1979 Unknown [id number] 2.16.840.1.750883.3.579.2. 1259 1979 Unknown [id number] 2.16.840.1.992363.3.579.2. 1259 1979 Unknown [id number] 2.16.840.1.731739.3.579.2. 1286 1979 Unknown [id number] 2.16.840.1.213321.3.579.2. 1286 1979 Unknown [id number] 2.16.840.1.096330.3.579.2. 1286 1979 Unknown [id number] 2.16.840.1.254681.3.579.2. 1286 1979 Unknown [id number] 2.16.840.1.223570.3.579.2. 1286 1979 Unknown [id number] 2.16.840.1.800516.3.579.2. 1286 1979 Unknown [id number] 2.16.840.1.191508.3.579.2. 1286 1979 Unknown [id number] 2.16.840.1.262469.3.579.2. 1286 1979 Unknown [id number] 2.16.840.1.563371.3.579.2. 1286 1979 Unknown [id number] 2.16.840.1.732910.3.579.2. 1286 1979 Unknown [id number] 2.16.840.1.593082.3.579.2. 1286 1979 Unknown [id number] 2.16.840.1.052173.3.579.2. 1286 1979 Unknown [id number] 2.16.840.1.448085.3.579.2. 1286 1979 Unknown [id number] 2..840.1.936463.3.579.2. 727 1979 Unknown [id number] 2..840.1.055655.3.579.2. 727 1959 Unknown [id number] 1959 Unknown [id number] Unknown Regular Insurance [id number] Unknown [id number] Unknown Regular Insurance [id number] Unknown [id number] 2.16.840.1.005584.3.579.2. 531 Unknown [id number] 2.16.840.1.728767.3.579.2. 531 Unknown [id number] 2.16.840.1.822669.3.579.2. 531 Unknown [id number] 2.16.840.1.793724.3.579.2. 531 Unknown [id number] 2.16.840.1.745596.3.579.2. 531 Unknown [id number] 2.16.840.1.246182.3.579.2. 531 Unknown [id number] 2.16.840.1.002038.3.579.2. 531 Social History Date Type Detail Facility Tobacco smoking status No Smoking Status Entered [facility] Comment on above: denies Denies. Start: 12-09-2020 End: 07-03-2023 Sex Assigned At Female [facility] Start: 05-24-2020 End: 05-29-2025 Tobacco smoking status MDIS Never smoked tobacco (finding) [facility] Start: 1979 Sex Assigned At Female F [facility] Tobacco smoking status Never [facility] Tobacco smoking status No Smoking Status Entered [facility] Start: 03-23-2023 End: 01-01-2024 Tobacco use and exposure Smokeless tobacco non-user [facility] Start: 11-19-2023 End: 11-11-2024 Alcohol intake Lifetime non-drinker (finding) [facility] Start: 12-09-2020 End: 07-03-2023 History of Social function [facility] Within the last year , have you been afraid of your partner or ex-partner? No [facility] Are you now , , , , never or living with a partner? [facility] How hard is it for you to pay for the very basics like food, housing, medical care, and heating Somewhat hard [facility] Do you feel stress - tense, restless, nervous, or anxious, or unable to sleep at night because your mind is troubled all the time - these days [OSQ] Not at all [facility] (I/We) worried whether (my/our) food would run out before (I/we) got money to buy more. Never true [facility] Start: 04-04-2023 Alcohol Comment Caffeine intak e: >4 cups per day soda, chocolate [facility] Start: 1980 Sex Assigned At Not on file [facility] Start: 08-25-2024 End: 04-01-2025 Alcoholic beverage intake Current non-drinker of alcohol (finding) [facility] Start: 06-03-2015 End: 04-06-2025 Sex Female (finding) [facility] History of tobacco use Passive smoker [facility] [facility] Start: 01-12-2025 Alcoholic beverage intake Ex-drinker (finding) [facility] NEGATED: Highlighted row [facility] NEGATED: Highlighted row N [facility] Medical Equipment Procedure Code Equipment Code Equipment Origin al Text Equipment Identifier Dates USE 1 PEN ONCE D AILY IN THE MORNING [id number] Start: 05-10-2023 Inject 1 Pen Nee dle into the skin in the morning. [id number] Start: 07-07-2024 End: 01-19-2025 Pen Needle, Diab etic 31 gauge x 15/64 needle Start: 02-08-2024 Inject 1 Pen Nee dle into the skin in the morning. [id number] Start: 01-19-2025 Mesh Vicryl Wove n 12x12 - [id number] Start: 01-13-2025 Mesh Prolene Squ are Flat 45p78gq Surgical Knit Nonabsorbable Nonreactive - [id number] Start: 01-13-2025 Mesh Prolene Squ are Flat 88p51hh Surgical Knit Nonabsorbable Nonreactive - [id number] Start: 01-13-2025 Mesh Prolene Squ are Flat 57n48pw Surgical Knit Nonabsorbable Nonreactive - [id number] Start: 01-13-2025 Mesh Prolene Squ are Flat 13n28jn Surgical Knit Nonabsorbable Nonreactive - [id number] Start: 01-13-2025 Mesh Prolene Squ are Flat 04m24dv Surgical Knit Nonabsorbable Nonreactive - [id number] Start: 01-13-2025 Mesh Vicryl Flat Polyglactin 910 Woven 6x6in Surgical Knit Hernia Repair - [id number] Start: 01-13-2025 Pen Needle, Diab etic 31 gauge x 15/64 needle Start: 02-08-2024 Pen Needle, Diab etic 31 gauge x 15/64 needle Start: 02-08-2024 Pen Needle, Diab etic 31 gauge x 15/64 needle Start: 02-08-2024 Pen Needle, Diab etic 31 gauge x 15/64 needle Start: 02-08-2024 Pen Needle, Diab etic 31 gauge x 15/64 needle Start: 02-08-2024 Pen Needle, Diab etic 31 gauge x 15/64 needle Start: 02-08-2024 Pen Needle, Diab etic 31 gauge x 15/64 needle Start: 02-08-2024 Goals Date Patient Goal Desired Activity /State Functional Status Date Assessment Result Facility 01-17-2025 Are you deaf, or do you have serious difficulty hearing No 01/17/2025 10:13 AM Kath Mcneil, RN No [facility] 01-17-2025 Are you blind, or do you have serious difficulty seeing, even when wearing glasses No 01/17/2025 10:13 AM Kath Mcneil, RN No [facility] 01-17-2025 Do you have serious difficulty walking or climbing stairs No 01/17/2025 10:13 AM Kath Mcneil, RN No [facility] 01-17-2025 Do you have difficul ty dressing or bathing Yes 01/17/2025 10:13 AM Kath Mcneil, RN Yes [facility] 01-17-2025 Because of a physica l, mental, or emotional condition, do you have difficulty doing errands alone such as visiting a physician's office or shopping Yes 01/17/2025 10:13 AM Kath Mcneil, RN Yes [facility] 09-13-2024 Functional Status N/A [facility] 06-16-2024 Functional status Patient at Baseline [facility] Work Phone: 02-11-2024 Functional status Patient is Pro gressing Toward Baseline [facility] Work Phone: 02-08-2024 Functional status Patient at Baseline [facility] Work Phone: 12-25-2023 Functional Status N/A [facility] 12-07-2023 Functional Status N/A [facility] 12-06-2023 Functional Status N/A [facility] 01-19-2023 Functional Status N/A [facility] 11-27-2022 Functional Status N/A [facility] 11-13-2022 Functional Status N/A [facility] [place] 10-25-2022 Functional Status N/A [facility] 04-14-2022 Functional Status N/A [facility] Mental Status Date Assessment Result Facility 01-17-2025 Because of a physica l, mental, or emotional condition, do you have serious difficulty concentrating, remembering, or making decisions No 01/17/2025 10:13 AM EDT Kath Rocha RN No [facility] 06-16-2024 Cognitive function Cognitive Sta tus Patient at Baseline [facility] Work Phone: 02-11-2024 Cognitive function Cognitive Sta tus Patient is Progressing Toward Baseline [facility] Work Phone: 02-08-2024 Cognitive function Cognitive Sta tus Patient at Baseline [facility] Work Phone: Clinical Notes 04-14-2022 to 06-08-2025 ALESSIO Lindsey - 05/14/2025 1:13 PM EDTTelephone Encounter - ALESSIO Lindsey - 05/13/2025 10:31 AM EDTTelephone Encounter - ALESSIO Lindsey - 05/13/2025 10:31 AM EDT Note Date & Type Note Facility 06-08-2025 Note ED Patient Education Note Gastroenterology Abdominal Pain, Adult Pain in the abdomen (abdominal pain) can be caused by many things. In most cases, it gets better with no treatment or by being treated at home. But in some cases, it can be serious. Your health care provider will ask questions about your medical history and do a physical exam to try to figure out what is causing your pain. Follow these instructions at home: Medicines ??? Take clkq-pzq-fjpxgzo and prescription medicines only as told by your provider. ??? Do not take medicines that help you poop (laxatives) unless told by your provider. General instructions ??? Watch your condition for any changes. ??? Drink enough fluid to keep your pee (urine) pale yellow. Contact a health care provider if: ??? Your pain changes, gets worse, or lasts longer than expected. ??? You have severe cramping or bloating in your abdomen, or you vomit. ??? Your pain gets worse with meals, after eating, or with certain foods. ??? You are constipated or have diarrhea for more than 2?3 days. ??? You are not hungry, or you lose weight without trying. ??? You have signs of dehydration. These may include: ? Dark pee, very little pee, or no pee. ? Cracked lips or dry mouth. ? Sleepiness or weakness. ??? You have pain when you pee (urinate) or poop. ??? Your abdominal pain wakes you up at night. ??? You have blood in your pee. ??? You have a fever. Get help right away if: ??? You cannot stop vomiting. ??? Your pain is only in one part of the abdomen. Pain on the right side could be caused by appendicitis. ??? You have bloody or black poop (stool), or poop that looks like tar. ??? You have trouble breathing. ??? You have chest pain. These symptoms may be an emergency. Get help right away. Call 911. ??? Do not wait to see if the symptoms will go away. ??? Do not drive yourself to the hospital. This information is not intended to replace advice given to you by your health care provider. Make sure you discuss any questions you have with your health care provider. Document Revised: 08/01/2023 Document Reviewed: 08/01/2023 [employer] Patient Education ? 2023 [employer] Infectious Disease Diarrhea, Adult Diarrhea is frequent loose and sometimes watery bowel movements. Diarrhea can make you feel weak and cause you to become dehydrated. Dehydration is a condition in which there is not enough water or other fluids in the body. Dehydration can make you tired and thirsty, cause you to have a dry mouth, and decrease how often you urinate. Diarrhea typically lasts 2?3 days. However, it can last longer if it is a sign of something more serious. It is important to treat your diarrhea as told by your health care provider. Follow these instructions at home: Eating and drinking Follow these recommendations as told by your health care provider: ??? Take an oral rehydration solution (ORS). This is an uelv-aww-helvftj medicine that helps return your body to its normal balance of nutrients and water. It is found at pharmacies and retail stores. ??? Drink enough fluid to keep your urine pale yellow. ? Drink fluids such as water, diluted fruit juice, and low-calorie sports drinks. You can drink milk also, if desired. Sucking on ice chips is another way to get fluids. ? Avoid drinking fluids that contain a lot of sugar or caffeine, such as soda, energy drinks, and regular sports drinks. ? Avoid alcohol. ??? Eat bland, azaq-oz-svhwem foods in small amounts as you are able. These foods include bananas, applesauce, rice, lean meats, toast, and crackers. ??? Avoid spicy or fatty foods. Medicines ??? Take fame-uhy-nyxtjix and prescription medicines only as told by your health care provider. ??? If you were prescribed antibiotics, take them as told by your health care provider. Do not stop using the antibiotic even if you start to feel better. General instructions ??? Wash your hands often using soap and water for at least 20 seconds. If soap and water are not available, use hand nurse infection control. Others in the household should wash their hands as well. Hands should be washed: ? After using the toilet or changing a diaper. ? Before preparing, cooking, or serving food. ? While caring for a sick person or while visiting someone in a hospital. ??? Rest at home while you recover. ??? Take a warm bath to relieve any burning or pain from frequent diarrhea episodes. ??? Watch your condition for any changes. Contact a health care provider if: ??? You have a fever. ??? Your diarrhea gets worse. ??? You have new symptoms. ??? You vomit every time you eat or drink. ??? You feel light-headed, dizzy, or have a headache. ??? You have muscle cramps. ??? You have signs of dehydration, such as: ? Dark urine, very little urine, or no urine. ? C (more content not included)... [facility] 05-29-2025 Radiology Diagnostic study note [facility] Main [place] [address] [place] [id number] Scan Report Signed Patient: Guerrero Ramos MR#: [id number] : 1980 Acct:[id number] Age/Sex: 44 / F ADM Date: 5 Loc: ER Room: Type: [facility] ER Attending Dr: Copies to: Marcelle Simmons MD~ Ordering Provider: Marcelle Simmons MD Date of Service: 05/29/25 CT/CT abdomen pelvis wo con: r/o stone, R flank pain CT ABDOMEN AND PELVIS WITHOUT INTRAVENOUS CONTRAST: CLINICAL HISTORY: Right-sided flank pain COMPARISON: 09/16/2024 TECHNIQUE: Spiral images were obtained through the abdomen and pelvis without intravenous contrast. This CT exam was performed using one or more following dose reduction techniques: Automated exposure control, adjustment of the mA and/or kV according to patient size, or use of iterative reconstruction technique. FINDINGS: Lung Bases: [Hypoventilatory changes greatest left lung base.] Organs:Gallbladder absent. Liver, spleen, right adrenal gland and pancreas are unremarkable. Left adrenal nodule likely adenoma. Lobular appearance of the kidneys. Left renal calculus, nonobstructive. No hydronephrosis. No definite ureterolithiasis.[ GI: Mild retained stool colon. No bowel obstruction. Appendix is normal.[ Pelvis:[Mild bladder distention. Uterus grossly unremarkable. No suspicious adnexal mass. Tubal ligation devices.] Peritoneum/Retroperitoneum:No free air or free fluid. Mild to moderate aortic vascular disease.[ Abd wall/Bones:Interval ventral abdominal wall herniorrhaphy. No suspicious osseous lesion.[ CT/CT abdomen pelvis wo con IMPRESSION: Negative acute inflammatory process or bowel obstruction. Left-sided calculus, nonobstructive. No hydronephrosis or obstructive uropathy. Impression dictated by: Fabian Mike M.D. 05/29/2025 3:05 PM Dictation Location: [place] [address] Transcribed By: TREMAYNE 05/29/25 1505 Dictated By: Fabian Mike MD 05/29/25 1501 Signed By: 05/29/25 1505 [facility] Work Phone: 05-14-2025 History of Presen t illness Narrative The OARRS/MAPPS database was reviewed today and found to be appropriate. No indication of medication diversion, or non compliance. ALESSIO Lindsey 05/14/25 1313 documented in this encounter [facility] 05-13-2025 Miscellaneous Notes Pt is due for controlled substance visit in Sept - needs appt moved up documented in this encounter [facility] 05-13-2025 Telephone encounter Note Pt is due for controlled substance visit in Sept - needs appt moved up [facility] 04-08-2025 Telephone encounter Note Patient call back to get started with the kidney intake, however patients BMI is 51.4. Pt did explain that her BMI was to high for the [facility] program. Pt understood. Referral closed. Isis [facility] 04-08-2025 Miscellaneous Notes Patient call back to get started with the kidney intake, however patients BMI is 51.4. Pt did explain that her BMI was to high for the [facility] program. Pt understood. Referral closed. Isis documented in this encounter [facility] 04-08-2025 Telephone encounter Note I called patient to start the kidney referral intake process. I left a voicemail for patient to call us back. Isis [facility] 04-08-2025 Miscellaneous Notes I called patient to start the kidney referral intake process. I left a voicemail for patient to call us back. Isis documented in this encounter [facility] 04-01-2025 History of Presen t illness Narrative Images from the original note were not included. [address] [place] [address] SUBJECTIVE: Patient ID: Guerrero Ramos is a 44 y.o. female. Chief Complaint Patient presents with Diabetes weight She is currently at 46 pounds weight loss since starting phentermine 37.5 mg 1/2 tablet. Has gained two pounds this month. She is also being monitored by [facility] weight loss monthly She states her kidneys have worsened. She is monitored by nephrology, Dr Melgar. States her kidney is only functioning at 17% currently. She is preparing to go on the transplant list in [place]. Blood sugars are reported as being stable. She uses Dexcom 7 for blood glucose monitoring. Diabetes She presents for her follow-up diabetic visit. She has type 2 diabetes mellitus. Her disease course has been fluctuating. Hypoglycemia symptoms include nervousness/anxiousness. There are no diabetic associated symptoms. Pertinent negatives for diabetes include no chest pain. There are no hypoglycemic complications. Symptoms are stable. There are no diabetic complications. Risk factors for coronary artery disease include diabetes mellitus, dyslipidemia, family history and obesity. Current diabetic treatment includes intensive insulin program. She is compliant with treatment most of the time. She is following a generally healthy diet. When asked about meal planning, she reported none. She participates in exercise intermittently. Her breakfast blood glucose range is generally 140-180 mg/dl. (Dexcom) Anxiety Presents for follow-up visit. Symptoms include decreased concentration, nervous/anxious behavior and palpitations. Patient reports no chest pain or shortness of breath. Symptoms occur occasionally. The severity of symptoms is moderate. The quality of sleep is good. Nighttime awakenings: none. The following portions of the patient's history were reviewed and updated as appropriate: allergies, current medications, past family history, past medical history, past social history, past surgical history and problem list. Past Surgical History: Procedure Laterality Date CHOLECYSTECTOMY COLECTOMY 10/29/2015 HEMICOLECTOMY AND PARTIAL OMENTECTOMY PER DR. MAYFIELD COLONOSCOPY 03/29/2016 in [facility] HIATAL HERNIA REPAIR 01/13/2025 Past Medical History: Diagnosis Date Colon cancer ([facility]) 10/29/2015 STAGE II-B, PT4, N0, M0 ADENOCARCINOMA OF TRANSVERSE COLON 6.5CM AND 32 LYMPH NODES WERE NEGATIVE FOR METASTASIS Colon cancer ([facility]) 04/09/2017 Depression Disease of thyroid gland HYPOTHYROIDISM Dizziness Hernia of abdominal wall 11/09/2015 colon cancer Iron deficiency Vertigo Immunization History Administered Date(s) Administered COVID-19, mRNA, LNP-S, PF, 100mcg/0.5mL Dose 03/21/2021, 04/19/2021, 11/07/2021 REVIEW OF SYSTEMS: Review of Systems Constitutional: Negative for chills and fever. HENT: Negative. Eyes: Negative for visual disturbance. Respiratory: Negative for chest tightness and shortness of breath. Cardiovascular: Negative for palpitations. Gastrointestinal: Negative. Endocrine: Negative. Genitourinary: Negative for menstrual problem and pelvic pain. Musculoskeletal: Negative. Skin: Negative. Allergic/Immunologic: Negative. Neurological: Negative for syncope and facial asymmetry. Hematological: Does not bruise/bleed easily. Psychiatric/Behavioral: Negative. PHYSICAL EXAMINATION: Vitals: 04/01/25 1328 BP: 138/84 BP Site: Right Arm BP Postition: Sitting BP CUFF SIZE: L (13-17 inches) Pulse: 80 Resp: 18 Temp: 36.3 C (97.4 F) TempSrc: Tympanic SpO2: 97% Weight: 131.5 kg (290 lb) Height: 160 cm (5' 2.99 ) Patient noted to have elevated BMI and the following intervention(s) were applied: encouragement to exercise. Physical Exam Vitals and nursing note reviewed. Constitutional: General: She is not in acute distress. Appearance: She is well-developed. She is not diaphoretic. HENT: Head: Normocephalic and atraumatic. Right Ear: Tympanic membrane and external ear normal. Left Ear: Tympanic membrane and external ear normal. Nose: Nose normal. Mouth/Throat: Mouth: Mucous membranes are moist. Pharynx: No oropharyngeal exudate. Eyes: General: Right eye: No discharge. Left eye: No discharge. Conjunctiva/sclera: Conjunctivae normal. Pupils: Pupils are equal, round, and reactive to light. Neck: Thyroid: No thyromegaly. Vascular: No JVD. Cardiovascular: Rate and Rhythm: Normal rate and regular rhythm. Heart sounds: Normal heart sounds. No murmur heard. No friction rub. No gallop. Pulmonary: Effort: Pulmonary effort is normal. Breath sounds: Normal breath sounds. Abdominal: General: Bowel sounds are normal. There is no distension. Palpations: Abdomen is soft. There is no mass. Tenderness: There is no abdominal tenderness. Musculoskeletal: General: Normal range of motion. Cervical back: Normal range of motion and neck supple. Lymphadenopathy: Cervical: No cervical adenopathy. Skin: General: Skin is warm and dry. Capillary Refill: Capillary refill takes less than 2 seconds. Neurological: Mental Status: She is alert and oriented to person, place, and time. Deep Tendon Reflexes: Reflexes are normal and symmetric. Psychiatric: Mood and Affect: Mood normal. Behavior: Behavior normal. Thought Content: Thought content normal. Judgment: Judgment normal. ASSESSMENT/PLAN: Guerrero was seen today for diabetes. Diagnoses and all orders for this visit: Type 2 diabetes mellitus with stage 3 chronic kidney disease, unspecified whether roasterman insulin use, unspecified whether stage 3a or 3b CKD ([facility]) - POCT Hemoglobin A1c Type 2 DM A1c 6%, doing very well with blood sugars. Continue Toujeo to 30 units subcutaneous daily and Jardiance 10 mg oral daily Continue Victoza 1.8 mg daily Encourage routine home blood sugar monitoring, diet modification, and exercise regimen. Has DEXCOM Encourage yearly eye exams or as directed by eye provider Daily self skin foot exams Is taking statin. Depression With social anxiety disorder Continue sertraline 50 mg oral daily Alprazolam 0.25 mg oral daily The OARRS/MAPPS database was reviewed today and found to be appropriate. No indication of medication diversion, or non compliance. Discussed today about phentermine, is no longer losing weight. Discontinue phentermine. CKD She states her kidneys have worsened. She is monitored by nephrology, Dr Melgar. States her kidney is only functioning at 17% currently. She is preparing to go on the transplant list in [place]. ALL QUESTIONS ANSWERED Total time spent was 30 minutes: Preparing to see the patient (e.g., review of tests) Obtaining and/or reviewing separately obtained history Performing a medically appropriate examination and/or evaluation Counseling and educating the patient/family/caregiver Ordering medications, tests, or procedures Follow-up: 4 months DM, Xanax contract ALESSIO Parsons 04/01/25 1412 documented in this encounter [facility] 03-27-2025 Radiology Diagnostic study note [facility] [place] [address] Ultrasound Report Signed Patient: Guerrero Ramos MR#: [id number] : 1980 Acct:[id number] Age/Sex: 44 / F ADM Date: 5 Loc: Room: Type: [facility] Attending Dr: Allison Melgar MD Ordering Provider: Allison Melgar MD Date of Service: 03/26/25 US/US map hemodial access LIANET: N18.4 - Chronic kidneydisease, stage 4 (severe) Copies to: Allison Melgar MD~ Bilateral upper cavity vein mapping examination Indication for study: Renal failure with need for dialysis access PROCEDURE: B-mode imaging is used to to interrogate the venous anatomy of both upper extremities. In the patient's right arm the forearm basilic and cephalic veins are less than 2 mm. The upper arm cephalic vein is 3 mm throughout its course and potentially usable for creation of a fistula. The upper arm basilic vein is 3 to 4 mm and also potential usable for fistula. Brachial artery is small at just under 4 mm. The radial artery is less than 2 mm. The axillary and subclavian veins are patent. In the patient's left upper extremity again the forearm vessels are less than 2 mm. Left upper arm cephalic vein is fairly good throughout its course at 3 mm. The first portion of the left upper extremity basilic vein is smaller but distally becomes 3 to 4 mm. Brachial artery is again quite small at 3 mm and theradial artery is less than 2 mm. The subclavian and axillary veins are patent. US/US map hemodial access LIANET IMPRESSION: Options for creation of autologous fistula in this patient include the right basilic vein or upper arm cephalic vein. These would require an antecubital level anastomosis. The left upper extremity cephalic vein is somewhat better particularly at the antecubital space and is probably the best conduit for creation of a fistula. Left upper arm basilic vein is potential usable but smaller proximally. Impression dictated by: Vega Neville M.D. 03/27/2025 10:35 AM Dictation Location: [id number] Tech: Marcelle Cardozo Transcribed By: TREMAYNE 03/27/25 1035 Dictated By: Vega Neville MD 03/27/25 1033 Signed By: 03/27/25 1035 [facility] Work Phone: 03-17-2025 History of Presen t illness Narrative The OARRS/MAPPS database was reviewed today and found to be appropriate. No indication of medication diversion, or non compliance. ALESSIO Parsons 03/17/25 0724 documented in this encounter [facility] 03-12-2025 Evaluation note Diagnosis Onset Date Resolution Anemia of renal disease acute M 2024 12:40pm CKD (chronic kidney disease) stage 4, GFR 15-29 ml/min acute March 12, 2025 12:40pm Hyperlipidemia acute March 12, 2025 12:40pm Secondary hyperparathyroidism acute March 12 12:40pm Hypertensive chronic kidney disease with stage 1 through stage 4 chronic ki chronic February 262024 12:40pm Nephrolithiasis chronic March 12, 2025 12:40pm Proteinuria chronic March 12 12:40pm Type 2 diabetes mellitus with diabetic chronic kidney disease chronic March 12, 2025 12:40pm [facility] Work Phone: 1(911) 742-859305-15-2025 Evaluation note* Diagnosis Onset Date Resolution Status Admit Date Anemia of renal disease acute M ay 2024 12:40pm CKD (chronic kidney disease) stage 4, GFR 15-29 ml/min acute March 12 12:40pm Hyperlipidemia acute March 12, 2025 12:40pm Secondary hyperparathyroidism acute March 12, 2025 12:40pm Hypertensive chronic kidney disease with stage 1 through stage 4 chronic ki chronic March 12, 2025 12:40pm Nephrolithiasis chronic March 12, 2025 12:40pm Proteinuria chronic March 12 12:40pm Type 2 diabetes mellitus wit h diabetic chronic kidney disease chronic March 12, 2025 12:40pm CKD (chronic kidney disease) stage 4, GFR 15-29 ml/min acute April 06 2:03pm [facility] Work Phone: 1(902) 764-637005-15-2025 Evaluation note* Diagnosis Onset Date Resolution Status Admit Date Anemia of renal disease acute M ay 2024 12:40pm CKD (chronic kidney disease) stage 4, GFR 15-29 ml/min acute March 12 12:40pm Hyperlipidemia acute March 12, 2025 12:40pm Secondary hyperparathyroidism acute March 12, 2025 12:40pm Hypertensive chronic kidney disease with stage 1 through stage 4 chronic ki chronic March 12, 2025 12:40pm Nephrolithiasis chronic March 12, 2025 12:40pm Proteinuria chronic March 12 12:40pm Type 2 diabetes mellitus wit h diabetic chronic kidney disease chronic March 12, 2025 12:40pm CKD (chronic kidney disease) stage 4, GFR 15-29 ml/min acute April 06 2:03pm S/P arteriovenous (AV) fistu la creation acute May 19, 2025 10:20am [facility] Work Phone: [phone]) 595-935605-07-2025 History of Present illness Narrative* Lily Rosales, DEBORAH-TAN ROOM SUPERVISOR - 03/04/2025 1:40 PM EDT Images from the original note were not included. [address] [place] [address] SUBJECTIVE: Patient ID: Guerrero Ramos is a 44 y.o. female. Presents for weight loss today. Has lost 1 pound this month. Total weight loss is 48 pounds since starting phentermine 37.5 mg 1/2 tablet per day. She admits she has not been as active the past 6 weeks. She had abdominal hernia repair in December. She just returned back to work this past week. She normally takes Victoza as well for DM / weight loss. This is prescribed by F weight loss. States she has not restarted this medication since her surgery, is on back order from the pharmacy. The following portions of the patient's history were reviewed and updated as appropriate: allergies, current medications, past family history, past medical history, past social history, past surgicalhistory and problem list. Past Surgical History: Procedure Laterality Date CHOLECYSTECTOMY COLECTOMY 10/29/2015 HEMICOLECTOMY AND PARTIAL OMENTECTOMY PER DR. MAYFIELD COLONOSCOPY 03/29/2016 in [facility] HIATAL HERNIA REPAIR 01/13/2025 Past Medical History: Diagnosis Date Colon cancer ([facility]) 10/29/2015 STAGE II-B, PT4, N0, M0 ADENOCARCINOMA OF TRANSVERSE COLON 6.5CM AND 32 LYMPH NODES WERE NEGATIVE FOR METASTASIS Colon cancer ([facility]) 04/09/2017 Depression Disease of thyroid gland HYPOTHYROIDISM Dizziness Hernia of abdominal wall 11/09/2015 colon cancer Iron deficiency Vertigo Immunization History Administered Date(s) Administered COVID-19, mRNA, LNP-S, PF, 100mcg/0.5mL Dose 03/21/2021, 04/19/2021, 11/07/2021 REVIEW OF SYSTEMS: Review of Systems Constitutional: Negative for chills and fever. HENT: Negative. Eyes: Negative for visual disturbance. Respiratory: Negative for chest tightness and shortness of breath. Cardiovascular: Negative for chest pain and palpitations. Gastrointestinal: Negative. Endocrine: Negative. Genitourinary: Negative for menstrual problem and pelvic pain. Musculoskeletal: Negative. Skin: Negative. Allergic/Immunologic: Negative. Neurological: Negative for syncope and facial asymmetry. Hematological: Does not bruise/bleed easily. Psychiatric/Behavioral: Negative. PHYSICAL EXAMINATION: Vitals: 03/04/25 1334 BP: 128/68 BP Site: Left Arm BP Postition: Sitting BP CUFF SIZE: L (13-17 inches) Pulse: 85 Resp: 18 Temp: 36.3 C (97.4 F) TempSrc: Tympanic SpO2: 94% Weight: 130.6 kg (288 lb) Height: 160 cm (5' 2.99 ) Patient noted to have elevated BMI and the following intervention(s) were applied: encouragement toexercise. Physical Exam Vitals and nursing note reviewed. Constitutional: General: She is not in acute distress. Appearance: She is well-developed. She is not diaphoretic. HENT: Head: Normocephalic and atraumatic. Right Ear: Tympanic membrane and external ear normal. Left Ear: Tympanic membrane and external ear normal. Nose: Nose normal. Mouth/Throat: Mouth: Mucous membranes are moist. Pharynx: No oropharyngeal exudate. Eyes: General: Right eye: No discharge. Left eye: No discharge. Conjunctiva/sclera: Conjunctivae normal. Pupils: Pupils are equal, round, and reactive to light. Neck: Thyroid: No thyromegaly. Vascular: No JVD. Cardiovascular: Rate and Rhythm: Normal rate and regular rhythm. Heart sounds: Normal heart sounds. No murmur heard. No friction rub. No gallop. Pulmonary: Effort: Pulmonary effort is normal. Breath sounds: Normal breath sounds. Abdominal: General: Bowel sounds are normal. There is no distension. Palpations: Abdomen is soft. There is no mass. Tenderness: There is no abdominal tenderness. Musculoskeletal: General: Normal range of motion. Cervical back: Normal range of motion and neck supple. Lymphadenopathy: Cervical: No cervical adenopathy. Skin: General: Skin is warm and dry. Capillary Refill: Capillary refill takes less than 2 seconds. Neurological: Mental Status: She is alert and oriented to person, place, and time. Deep Tendon Reflexes: Reflexes are normal and symmetric. Psychiatric: Mood and Affect: Mood normal. Behavior: Behavior normal. Thought Content: Thought content normal. Judgment: Judgment normal. ASSESSMENT/PLAN: Guerrero was seen today for weight check. Diagnoses and all orders for this visit: Morbid obesity with BMI of 50.0-59.9, adult ([facility]) Has lost 1 pound this month. Total weight loss is 48 pounds since starting phentermine 37.5 mg 1/2 tablet per day. She admits she has not been as active the past 6 weeks. She had abdominal hernia repair in December. She just returned back to work this past week. She normally takes Victoza as well for DM / weight loss. This is prescribed by F weight loss. States she has not restarted this medication since her surgery, is on back order from the pharmacy. The OARRS/MAPPS database was reviewed today and found to be appropriate. No indication of medication diversion, or non compliance. Continue phentermine 37.5 mg 1/2 tablet daily ALL QUESTIONS ANSWERED Total time spent was 25 minutes: Preparing to see the patient (e.g., review of tests) Obtaining and/or reviewing separately obtained history Performing a medically appropriate examination and/or evaluation Counseling and educating the patient/family/caregiver Ordering medications, tests, or procedures Follow-up: One month Weight check ALESSIO Parsons 03/04/25 1356 documented [facility] History of Present illness Narrative* ALESSIO Parsons - 02/17/2025 9:40 AM EDT Images from the original note were not included. [address] [facility] [id number] SUBJECTIVE: Patient ID: Guerrero Ramso is a 44 y.o. female. Chief Complaint Patient presents with Abdominal Pain X3 days Patient presents today for right upper abdominal surgical pain. In December, she had ventral hernia repair done by [facility]. She has been off work and returned on Sunday. She feels she went back to work too soon. On day of work, she developed right upper abdominal pain with radiation to right thoracic back. She did leave work early and went to [facility] for evaluation. She was discharged with prescription of Teaberry for the pain. She states medication was helpful but made her too sleepy. She is requesting extension of her FMLA for 2 additional weeks. She has notified her surgeon's office in regards to pain. She has upcoming CT of abdomen for further evaluation. The following portions of the patient's history were reviewed and updated as appropriate: allergies, current medications, past family history, past medical history, past social history, past surgicalhistory and problem list. Past Surgical History: Procedure Laterality Date CHOLECYSTECTOMY COLECTOMY 10/29/2015 HEMICOLECTOMY AND PARTIAL OMENTECTOMY PER DR. MAYFIELD COLONOSCOPY 03/29/2016 in [facility] HIATAL HERNIA REPAIR 01/13/2025 Past Medical History: Diagnosis Date Colon cancer ([facility]) 10/29/2015 STAGE II-B, PT4, N0, M0 ADENOCARCINOMA OF TRANSVERSE COLON 6.5CM AND 32 LYMPH NODES WERE NEGATIVE FOR METASTASIS Colon cancer ([facility]) 04/09/2017 Depression Disease of thyroid gland HYPOTHYROIDISM Dizziness Hernia of abdominal wall 11/09/2015 colon cancer Iron deficiency Vertigo Immunization History Administered Date(s) Administered COVID-19, mRNA, LNP-S, PF, 100mcg/0.5mL Dose 03/21/2021, 04/19/2021, 11/07/2021 REVIEW OF SYSTEMS: Review of Systems Constitutional: Negative for chills and fever. HENT: Negative. Eyes: Negative for visual disturbance. Respiratory: Negative for chest tightness and shortness of breath. Cardiovascular: Negative for chest pain and palpitations. Gastrointestinal: S/P ventral hernia repair pain Endocrine: Negative. Genitourinary: Negative for menstrual problem and pelvic pain. Musculoskeletal: Negative. Skin: Negative. Allergic/Immunologic: Negative. Neurological: Negative for syncope and facial asymmetry. Hematological: Does not bruise/bleed easily. PHYSICAL EXAMINATION: Vitals: 02/17/25 0934 BP: 130/80 BP Site: Left Arm BP Postition: Sitting Pulse: 79 Resp: 18 Temp: 37 C (98.6 F) TempSrc: Oral SpO2: 92% Weight: 131.1 kg (289 lb) Height: 160 cm (5' 2.99 ) Patient noted to have elevated BMI and the following intervention(s) were applied: encouragement toexercise. Physical Exam Vitals and nursing note reviewed. Constitutional: General: She is not in acute distress. Appearance: She is well-developed. She is not diaphoretic. HENT: Head: Normocephalic and atraumatic. Right Ear: Tympanic membrane and external ear normal. Left Ear: Tympanic membrane and external ear normal. Nose: Nose normal. Mouth/Throat: Mouth: Mucous membranes are moist. Pharynx: No oropharyngeal exudate. Eyes: General: Right eye: No discharge. Left eye: No discharge. Conjunctiva/sclera: Conjunctivae normal. Pupils: Pupils are equal, round, and reactive to light. Neck: Thyroid: No thyromegaly. Vascular: No JVD. Cardiovascular: Rate and Rhythm: Normal rate and regular rhythm. Heart sounds: Normal heart sounds. No murmur heard. No friction rub. No gallop. Pulmonary: Effort: Pulmonary effort is normal. Breath sounds: Normal breath sounds. Abdominal: General: Bowel sounds are normal. There is no distension. Palpations: Abdomen is soft. There is no mass. Tenderness: There is no abdominal tenderness. Comments: Right upper quadrant pain with palpation. She is S/P right ventral hernia repair. Musculoskeletal: General: Normal range of motion. Cervical back: Normal range of motion and neck supple. Lymphadenopathy: Cervical: No cervical adenopathy. Skin: General: Skin is warm and dry. Capillary Refill: Capillary refill takes less than 2 seconds. Neurological: Mental Status: She is alert and oriented to person, place, and time. Deep Tendon Reflexes: Reflexes are normal and symmetric. Psychiatric: Mood and Affect: Mood normal. Behavior: Behavior normal. Thought Content: Thought content normal. Judgment: Judgment normal. ASSESSMENT/PLAN: Guerrero was seen today for abdominal pain. Diagnoses and all orders for this visit: Right upper quadrant abdominal pain Status post surgery Pain at surgical site Pain has improved since she is not working. She has notified her surgeon. Has upcoming CT of abdomen. Scheduled at [place] to complete. She is requesting extension of her FMLA. She feels she returned back to work to soon. Job requires frequent bending, twisting, and lifting. Note off work for 2 weeks. Return to work on March 02, 2025. Body mass index is 51.21 kg/m . Patient noted to have elevated BMI and the following intervention(s) were applied: Discussed current weight today. Consider healthy food choices, portion control. Avoid sugary beverages and high concentrated sweets. Routine exercise regimen encouraged. ALL QUESTIONS ANSWERED Total time spent was 25 minutes: Preparing to see the patient (e.g., review of tests) Obtaining and/or reviewing separately obtained history Performing a medically appropriate examination and/or evaluation Counseling and educating the patient/family/caregiver Ordering medications, tests, or procedures Follow-up: One month ALESSIO Parsons 02/17/25 1009 documented in this encounterWilson [facility]04-18-2025 NoteHNO ID: [id number] Author: MIGUEL ÁNGEL HOPSON APRN.CNP Service: ? Author Type: Nurse Practitioner Type: Progress Notes Filed: 02/13/2025 12:28 Note Text: [facility] Clinic Date: February 13, 2025 Guerrero Ramos 44 year old female CHIEF COMPLAINT: Patient presents for follow up from surgery. HPI: Here for follow up after open bilateral TAR, incisional hernia repair with mesh on 01/13/[address] Franco. Doing well overall, and post operative recovery has been uncomplicated. On exam, the incision(s) is/are doing well and there is no evidence of infection or hernia recurrence. Patient is pleased with repair. Pain: Denies Incisional Drainage: Denies Incisional Erythema: Denies Fever/Chills: Denies Increased Heart Rate: Denies Constipation: Endorses - stool softener Diarrhea: Denies Nausea/Vomiting: Denies Difficulty Voiding: Denies Decreased Urine Output: Denies Shortness of Breath: Denies Cough / Wheezing: Denies Calf/Thigh pain or swelling: Denies Current Diet: Regular Present Activity level: Walking - plans to return to work tomorrow Surgery Date and Procedure: 01/13/2025 1. Open right myofascial advancement flap 2. Open left myofascial advancement flap 3. Repair of incarcerated incisional hernia Randomized Controlled Trial: Preoperative weight loss for open abdominal wall reconstruction Current Medications: Current Outpatient Medications Medication Sig Dispense Refill traZODone (DESYREL) 100 mg tablet Take 100 mg by mouth two times a day. ALPRAZolam (XANAX) 0.25 mg tablet Take 0.25 mg by mouth at bedtime as needed. levothyroxine 75 mcg cap Take 75 mcg by mouth daily before breakfast. meclizine (ANTIVERT) 25 mg tab Take 25 mg by mouth three times a day. amLODIPine (NORVASC) 2.5 mg tablet Take by mouth once daily. ondansetron HCl (ZOFRAN ORAL) Take by mouth as needed. insulin glargine,hum.rec.anlog (TOUJEO MAX U-300 SOLOSTAR SUBCUTANEOUS) Inject subcutaneously. tolterodine (DETROL) 2 mg tablet Take 2 mg by mouth two times a day. rosuvastatin (CRESTOR) 20 mg tablet Take 20 mg by mouth once daily. sertraline (ZOLOFT) 50 mg tablet Take 50 mg by mouth once daily. ergocalciferol 50,000 unit capsule (VITAMIN D2, DRISDOL) Take 50,000 Units by mouth one time a week. No current facility-administered medications for this visit. REVIEW OF SYSTEMS: CONSTITUTIONAL: Patient denies fevers, chills, sweats CARDIOVASCULAR: Patient denies chest pains, palpitations RESPIRATORY: No dyspnea on exertion, no wheezing or cough. GI: No diarrhea. Constipation. No nausea/vomiting. MUSCULOSKELETAL: No new myalgias or arthralgias. DERMATOLOGIC: Patient denies any rashes or skin changes. PHYSICAL EXAM: BP 124/84 (BP Site: Left Arm, BP Position: Sitting, BP Cuff Size: Large Adult) Pulse 90 Temp (!) 35.8 ?C (96.4 ?F) (Tympanic) Resp 20 Ht 160 cm (5' 3 ) Wt 130.3 kg (287 lb 3.2 oz) LMP 01/14/2025 (Approximate) SpO2 98% BMI 50.88 kg/m? GENERAL: No apparent distress. Pt is alert and oriented x3. LUNGS: Lungs clear and equal. No wheezing HEART: Regular rate and rhythm without murmur. No leg edema ABDOMEN: Soft, nontender, and nondistended. Positive bowel sounds. EXTREMITIES: Without any cyanosis, clubbing, rash, lesions or edema. INCISIONS: Clean, dry, intact, well approximated. No s/s of infection. SURGICAL PATHOLOGY: N/A ASSESSMENT/PLAN: 1. Postoperative visit - ICD9: V58.49, ICD10: Z48.89 (primary diagnosis) -Recovering appropriately, incision healing well -Increase activity as tolerated -Encouraged to try Miralax daily for constipation -Plan for follow up in 1 year, CT abd/pel to be completed prior to appointment 2. Type 2 diabetes mellitus with chronic kidney disease, with long-term current use of insulin, unspecified CKD stage (HCC) - ICD9: 250.40, 585.9, V58.67, ICD10: E11.22, Z79.4 -Controlled -Last hba1c was 6.1 (12/2024) - LIRAGLUTIDE 0.6 MG/0.1 ML (18 MG/3 ML) SUBCUTANEOUS PEN INJECTOR -Follow up in 3 months virtually Miguel Ángel Hopson, MSN, TAN ROOM SUPERVISOR [facility] 13[facility] History of Present illness Narrative* Miguel Ángel Hopson, HOSPICE DIRECTOR.TAN ROOM SUPERVISOR - 02/13/2025 11:12 AM EDT [facility] Clinic Date: February 13, 2025 Guerrero Ramos 44 year old female CHIEF COMPLAINT: Patient presents for follow up from surgery. HPI: Here for follow up after open bilateral TAR, incisional hernia repair with mesh on 01/13/2025 by . Doing well overall, and post operative recovery has been uncomplicated. On exam, the incision(s) is/are doing well and there is no evidence of infection or hernia recurrence. Patient is pleased with repair. Pain: Denies Incisional Drainage: Denies Incisional Erythema: Denies Fever/Chills: Denies Increased Heart Rate: Denies Constipation: Endorses - stool softener Diarrhea: Denies Nausea/Vomiting: Denies Difficulty Voiding: Denies Decreased Urine Output: Denies Shortness of Breath: Denies Cough / Wheezing: Denies Calf/Thigh pain or swelling: Denies Current Diet: Regular Present Activity level: Walking - plans to return to work tomorrow Surgery Date and Procedure: 01/13/2025 1. Open right myofascial advancement flap 2. Open left myofascial advancement flap 3. Repair of incarcerated incisional hernia Randomized Controlled Trial: Preoperative weight loss for open abdominal wall reconstruction Current Medications: Current Outpatient Medications Medication Sig Dispense Refill traZODone (DESYREL) 100 mg tablet Take 100 mg by mouth two times a day. ALPRAZolam (XANAX) 0.25 mg tablet Take 0.25 mg by mouth at bedtime as needed. levothyroxine 75 mcg cap Take 75 mcg by mouth daily before breakfast. meclizine (ANTIVERT) 25 mg tab Take 25 mg by mouth three times a day. amLODIPine (NORVASC) 2.5 mg tablet Take by mouth once daily. ondansetron HCl (ZOFRAN ORAL) Take by mouth as needed. insulin glargine,hum.rec.anlog (TOUJEO MAX U-300 SOLOSTAR SUBCUTANEOUS) Inject subcutaneously. tolterodine (DETROL) 2 mg tablet Take 2 mg by mouth two times a day. rosuvastatin (CRESTOR) 20 mg tablet Take 20 mg by mouth once daily. sertraline (ZOLOFT) 50 mg tablet Take 50 mg by mouth once daily. ergocalciferol 50,000 unit capsule (VITAMIN D2, DRISDOL) Take 50,000 Units by mouth one time a week. No current facility-administered medications for this visit. REVIEW OF SYSTEMS: CONSTITUTIONAL: Patient denies fevers, chills, sweats CARDIOVASCULAR: Patient denies chest pains, palpitations RESPIRATORY: No dyspnea on exertion, no wheezing or cough. GI: No diarrhea. Constipation. No nausea/vomiting. MUSCULOSKELETAL: No new myalgias or arthralgias. DERMATOLOGIC: Patient denies any rashes or skin changes. PHYSICAL EXAM: BP 124/84 (BP Site: Left Arm, BP Position: Sitting, BP Cuff Size: Large Adult) Pulse 90 Temp (!) 35.8 C (96.4 F) (Tympanic) Resp 20 Ht 160 cm (5' 3 ) Wt 130.3 kg (287 lb 3.2 oz) LMP 01/14/2025 (Approximate) SpO2 98% BMI 50.88 kg/m GENERAL: No apparent distress. Pt is alert and oriented x3. LUNGS: Lungs clear and equal. No wheezing HEART: Regular rate and rhythm without murmur. No leg edema ABDOMEN: Soft, nontender, and nondistended. Positive bowel sounds. EXTREMITIES: Without any cyanosis, clubbing, rash, lesions or edema. INCISIONS: Clean, dry, intact, well approximated. No s/s of infection. SURGICAL PATHOLOGY: N/A ASSESSMENT/PLAN: 1. Postoperative visit - ICD9: V58.49, ICD10: Z48.89 (primary diagnosis) -Recovering appropriately, incision healing well -Increase activity as tolerated -Encouraged to try Miralax daily for constipation -Plan for follow up in 1 year, CT abd/pel to be completed prior to appointment 2. Type 2 diabetes mellitus with chronic kidney disease, with long-term current use of insulin, unspecified CKD stage (HCC) - ICD9: 250.40, 585.9, V58.67, ICD10: E11.22, Z79.4 -Controlled -Last hba1c was 6.1 (12/2024) - LIRAGLUTIDE 0.6 MG/0.1 ML (18 MG/3 ML) SUBCUTANEOUS PEN INJECTOR -Follow up in 3 months virtually Miguel Ángel Hopson, MSN, TAN ROOM SUPERVISOR February 13, 2025 * Jian Snell LPN - 02/13/2025 10:19 AM EDT What is the reason for your visit today? Follow Up/Post Op Who is your referring physician? N/A Are you having poor oral intake? YES Have you had unintentional weight loss of 15 lbs/7 Kg in the last 3-6 months? NO Bowels: constipated or regular Wound: clean & dry,no openings on incisional line Temperature: No Drains: No Jian Snell LPN documented in this encounterWadsworth[facility]04-18-2025 NoteHNO ID: [id number] Author: JIAN SNELL LPN Service: ? Author Type: LICENSED NURSE Type: Progress Notes Filed: 02/13/2025 12:28 Note Text: What is the reason for your visit today? Follow Up/Post Op Who is your referring physician? N/A Are you having poor oral intake? YES Have you had unintentional weight loss of 15 lbs/7 Kg in the last 3-6 months? NO Bowels: constipated or regular Wound: clean AND dry,no openings on incisional line Temperature: No Drains: No [facility] History of Present illness Narrative* ALESSIO Parsons - 02/09/2025 8:28 AM EDT The OARRS/MAPPS database was reviewed today and found to be appropriate. No indication of medication diversion, or non compliance. ALESSIO Parsons 02/09/25 0829 documented in this encounterWilson [facility]04-09-2025 History of Present illness Narrative* ALESSIO Parsons - 02/04/2025 1:00 PM EDT Images from the original note were not [place] [id number] SUBJECTIVE: Patient ID: Guerrero Ramos is a 44 y.o. female. Chief Complaint Patient presents with BP / weight loss Presents for weight loss today. Has lost 3 pounds. Total weight loss is 47 pounds since starting phentermine 37.5 mg 1/2 tablet perday. Was off of phentermine for approximately 3 weeks this past month. Has restarted. She had abdominal wall hernia repair at the [facility] on 01/13/25. States she is doing well with recovery. The following portions of the patient's history were reviewed and updated as appropriate: allergies, current medications, past family history, past medical history, past social history, past surgicalhistory and problem list. Past Surgical History: Procedure Laterality Date CHOLECYSTECTOMY COLECTOMY 10/29/2015 HEMICOLECTOMY AND PARTIAL OMENTECTOMY PER DR. MAYFIELD COLONOSCOPY 03/29/2016 in [facility] HIATAL HERNIA REPAIR 01/13/2025 Past Medical History: Diagnosis Date Colon cancer ([facility]) 10/29/2015 STAGE II-B, PT4, N0, M0 ADENOCARCINOMA OF TRANSVERSE COLON 6.5CM AND 32 LYMPH NODES WERE NEGATIVE FOR METASTASIS Colon cancer ([facility]) 04/09/2017 Depression Disease of thyroid gland HYPOTHYROIDISM Dizziness Hernia of abdominal wall 11/09/2015 colon cancer Iron deficiency Vertigo Immunization History Administered Date(s) Administered COVID-19, mRNA, LNP-S, PF, 100mcg/0.5mL Dose 03/21/2021, 04/19/2021, 11/07/2021 REVIEW OF SYSTEMS: Review of Systems Constitutional: Negative for chills and fever. HENT: Negative. Eyes: Negative for visual disturbance. Respiratory: Negative for chest tightness and shortness of breath. Cardiovascular: Negative for chest pain and palpitations. Gastrointestinal: Negative. Endocrine: Negative. Genitourinary: Negative for menstrual problem and pelvic pain. Musculoskeletal: Negative. Skin: Negative. Allergic/Immunologic: Negative. Neurological: Negative for syncope and facial asymmetry. Hematological: Does not bruise/bleed easily. Psychiatric/Behavioral: Negative. PHYSICAL EXAMINATION: Vitals: 02/04/25 1300 BP: 124/70 BP Site: Left Arm BP Postition: Sitting BP CUFF SIZE: L (13-17 inches) Pulse: 95 Resp: 18 Temp: 36.7 C (98 F) TempSrc: Oral SpO2: 98% Weight: 130.7 kg (288 lb 3.2 oz) Height: 160 cm (5' 2.99 ) Patient noted to have elevated BMI and the following intervention(s) were applied: encouragement toexercise. Physical Exam Vitals and nursing note reviewed. Constitutional: General: She is not in acute distress. Appearance: She is well-developed. She is not diaphoretic. HENT: Head: Normocephalic and atraumatic. Right Ear: Tympanic membrane and external ear normal. Left Ear: Tympanic membrane and external ear normal. Nose: Nose normal. Mouth/Throat: Mouth: Mucous membranes are moist. Pharynx: No oropharyngeal exudate. Eyes: General: Right eye: No discharge. Left eye: No discharge. Conjunctiva/sclera: Conjunctivae normal. Pupils: Pupils are equal, round, and reactive to light. Neck: Thyroid: No thyromegaly. Vascular: No JVD. Cardiovascular: Rate and Rhythm: Normal rate and regular rhythm. Heart sounds: Normal heart sounds. No murmur heard. No friction rub. No gallop. Pulmonary: Effort: Pulmonary effort is normal. Breath sounds: Normal breath sounds. Abdominal: General: Bowel sounds are normal. There is no distension. Palpations: Abdomen is soft. There is no mass. Tenderness: There is no abdominal tenderness. Musculoskeletal: General: Normal range of motion. Cervical back: Normal range of motion and neck supple. Lymphadenopathy: Cervical: No cervical adenopathy. Skin: General: Skin is warm and dry. Capillary Refill: Capillary refill takes less than 2 seconds. Comments: Midline abdominal incision is well approximated. Scabbed. Neurological: Mental Status: She is alert and oriented to person, place, and time. Deep Tendon Reflexes: Reflexes are normal and symmetric. Psychiatric: Mood and Affect: Mood normal. Behavior: Behavior normal. Thought Content: Thought content normal. Judgment: Judgment normal. ASSESSMENT/PLAN: Guerrero was seen today for bp / weight loss. Diagnoses and all orders for this visit: Morbid obesity with BMI of 50.0-59.9, adult ([facility]) - phentermine (ADIPEX-P) 37.5 mg tablet; Take 1 tablet (37.5 mg total) by mouth every morning before breakfast. Body mass index is 51.07 kg/m . Patient noted to have elevated BMI and the following intervention(s) were applied: Discussed current weight today. Consider healthy food choices, portion control. Avoid sugary beverages and high concentrated sweets. Routine exercise regimen encouraged. -Has done very well with weight loss. She is currently at 47 pound weight loss since starting phentermine 37.5 mg 1/2 tablet. She wishes to continue phentermine ALL QUESTIONS ANSWERED Total time spent was 25 minutes: Preparing to see the patient (e.g., review of tests) Obtaining and/or reviewing separately obtained history Performing a medically appropriate examination and/or evaluation Counseling and educating the patient/family/caregiver Ordering medications, tests, or procedures Follow-up: One month ALESSIO Parsons 02/04/25 1327 documented in this encounterMed[facility] HospitalArk[id number] NoteHNO ID: [id number] Author: SATHYA CAZARES APRN.CNP Service: General Surgery Author Type: Nurse Practitioner Type: Progress Notes Filed: 01/19/2025 06:45 Note Text: Documentation Query Please clarify the Stage of Chronic Kidney Disease (CKD) Other unable to be determined with 3 day hospital stay This document will become part of the patient's medical record.[facility]03-22-2025 NoteHNO ID: [id number] Author: SATHYA CAZARES APRN.TAN ROOM SUPERVISOR Service: General Surgery Author Type: Nurse Practitioner Type: Progress Notes Filed: 01/19/2025 06:45 Note Text: Documentation Query Please clarify the diagnosis associated with the clinical indicators Acute blood loss anemia This document will become part of the patient's medical record.[facility]03-22-2025 NoteHNO ID: [id number] Author: GAYLA SAN MD Service: General Surgery Author Type: Resident Type: Progress Notes Filed: 01/17/2025 08:13 Note Text: GENERAL SURGERY PROGRESS NOTE Patient name: Guerrero Ramos Date of : 1980 Admission date: 01/13/2025 POD: 4 Days Post-Op Procedure(s) and Anesthesia Type: * HERNIORRHAPHY VENTRAL RECURRENT REDUCIBLE GREATER THAN 10cm - General ASSESSMENT AND PLAN: Guerrero Ramos is a 44 yo F with morbid obesity (BMI 52), CKD (baseline scr 2.4), HTN, hypothyroidism who presented 01/13/25 for a bilateral TAR by Dr. Franco. Now POD 4, recovering on RNF. - Continue GIS, MMP regimen per DEC. - PT/OT. Encouraged to continue walking today. - IS use, wean o2. Minimize prn use. - Daily labs, replete electrolytes prn. - SCDs, bariatric dosing DVT ppx (Heparin 5000u TID) - ACHS accuchecks, SSI insulin. - Keep JENI x3 for now. - D/c home today Patient Active Hospital Problem List: S/P repair of ventral hernia Date Noted: 01/14/2025 HTN (hypertension) Date Noted: Hypothyroidism Date Noted: Acute post-operative pain Date Noted: 01/14/2025 Electrolyte imbalance Date Noted: 01/14/2025 Morbid obesity with BMI of 50.0-59.9, adult (HCC) Date Noted: 01/14/2025 Above plan of care discussed with staff. Gayla San MD PGY5 Rotating Resident Noemi Service - [id number] SUBJECTIVE: NAEO. Tolerating GIS diet. Voiding freely. + BM. Walking frequently. On room air. OBJECTIVE: Physical Exam: BP 113/66 Pulse 84 Temp 37 ?C (98.6 ?F) (Oral) Resp 17 LMP 03/24/2024 (Approximate) SpO2 92% General: Resting in bed. No acute distress. Heart: Regular rate and rhythm. Lungs: Unlabored respirations on RA. Symmetric chest rise. Abdomen: Obese, non distended, appropriately tender. Incision C/D/I with surgical glue intact. JENI x3 SS. Intake and Output (past 24h): Intake/Output Summary (Last 24 hours) at 01/17/2025 0812 Last data filed at 01/17/2025 0609 Gross per 24 hour Intake 720 ml Output 491 ml Net 229 ml LDAs: Lines, Drains, and Airways Line Duration Peripheral 01/16/25 0135 [facility] Right Forearm 20 Gauge 1 day Drain Duration Drain/Tube 01/13/25 1004 Erich Villagomez Left Upper Quadrant Abdomen Drain #1 3 days Drain/Tube 01/13/25 1005 Erich Villagomez Left Lower Quadrant Abdomen Drain #2 3 days Drain/Tube 01/13/25 1005 Erich Villagomez Right Upper Quadrant Abdomen Drain #3 3 days Recent Labs: Recent Labs 01/16/25 2253 01/15/25 2343 01/14/25 2144 WBC 6.18 7.82 8.10 HB 8.2* 9.0* 9.1* HCT 27.1* 29.0* 29.8* PLT 218 222 197 NA 140 137 136 K 4.0 4.3 3.9 CHLOR 106 104 104 CO2 25 24 23 CREAT 2.46* 2.46* 2.52* BUN 32* 33* 29* GLUC 229* 190* 169* P 2.4* 2.9 3.3 MG 1.9 1.8 1.8 CA 9.1 8.9 9.1 CRP -- -- 19.6*[facility]03-21-2025 NoteHNO ID: [id number] Author: JAYESH MANZANO, DARIUS Service: Care Management Author Type: Registered Nurse Type: Care Mgt Progress Note Filed: 01/16/2025 11:55 Note Text: CARE MANAGEMENT WEEKEND PLANNING NOTE DISCHARGE OR POSSIBLE DISCHARGE Date/Time: Sunday Disposition: Home/Self-Care Transport: Car /Parents Other Concerns: No skilled needs anticipated. 44 year old female POD#3 bilateral TAR. CM met with patient at bedside. Per patient she was independent prior to admission. Owns a wheelchair and a walker. Patient uses the wheelchair for long distances due to Vertigo. Lives with parents. Per patient, parents will transport home. CM will continue to follow for transitional care needs. Weekend Angular Js Developer Pager #: Please see Treatment Team for Care Management Weekend/iday coverage. SIGNATURE: Jayesh Manzano RN PATIENT NAME: Guerrero Ramos DATE: January 16, 2025 TIME: 11:53 [facility]03-21-2025 NoteHNO ID: [id number] Author: SATHYA CAZARES APRN.TAN ROOM SUPERVISOR Service: General Surgery Author Type: Nurse Practitioner Type: Progress Notes Filed: 01/16/2025 10:23 Note Text: GENERAL SURGERY PROGRESS NOTE Patient name: Guerrero Ramos Date of : 1980 Admission date: 01/13/2025 POD: 3 Days Post-Op Procedure(s) and Anesthesia Type: * HERNIORRHAPHY VENTRAL RECURRENT REDUCIBLE GREATER THAN 10cm - General ASSESSMENT AND PLAN: Guerrero Ramos is a 44 yo F with morbid obesity (BMI 52), CKD (baseline scr 2.4), HTN, hypothyroidism who presented 01/13/25 for a bilateral TAR by Dr. Franco. Now POD 3, recovering on RNF. - Continue GIS, MMP regimen per DEC. - PT/OT. Encouraged to continue walking today. - IS use, wean o2. Minimize prn use. - Daily labs, replete electrolytes prn. - SCDs, bariatric dosing DVT ppx (Heparin 5000u TID) - ACHS accuchecks, SSI insulin. - Keep JENI x3 for now. - Suppository x1 DISPO: - Discharge home tomorrow. No needs. Patient Active Hospital Problem List: S/P repair of ventral hernia Date Noted: 01/14/2025 HTN (hypertension) Date Noted: Hypothyroidism Date Noted: Acute post-operative pain Date Noted: 01/14/2025 Electrolyte imbalance Date Noted: 01/14/2025 Morbid obesity with BMI of 50.0-59.9, adult (HCC) Date Noted: 01/14/2025 Above plan of care discussed with staff. Sathya Cazares MSN, HOSPICE DIRECTOR.[facility] General Surgery [id number] Noemi Service - [id number] SUBJECTIVE: NAEO. Tolerating GIS diet. Voiding freely. Passing flatus, no BM yet. Walking frequently. On room air. OBJECTIVE: Physical Exam: BP 136/69 Pulse 76 Temp 36.7 ?C (98.1 ?F) (Oral) Resp 18 LMP 03/24/2024 (Approximate) SpO2 96% General: Resting in bed. No acute distress. Heart: Regular rate and rhythm. Lungs: Unlabored respirations on RA. Symmetric chest rise. Abdomen: Obese, non distended, appropriately tender. Incision C/D/I with surgical glue intact. JENI x3 SS. Intake and Output (past 24h): Intake/Output Summary (Last 24 hours) at 01/16/2025 1022 Last data filed at 01/16/2025 0904 Gross per 24 hour Intake 918 ml Output 2865 ml Net -1947 ml LDAs: Lines, Drains, and Airways Line Duration Peripheral 01/16/25 0135 [facility] Right Forearm 20 Gauge <1 day Drain Duration Drain/Tube 01/13/25 1004 Erich Villagomez Left Upper Quadrant Abdomen Drain #1 3 days Drain/Tube 01/13/25 1005 Erich Villagomez Left Lower Quadrant Abdomen Drain #2 3 days Drain/Tube 01/13/25 1005 Erich Villagomez Right Upper Quadrant Abdomen Drain #3 3 days Recent Labs: Recent Labs 01/15/25 2343 01/14/25 2144 01/14/25 1544 01/13/25 2239 WBC 7.82 8.10 -- 10.37 HB 9.0* 9.1* -- 10.8* HCT 29.0* 29.8* -- 34.6* PLT 222 197 -- 234 NA 137 136 138 138 K 4.3 3.9 4.6 5.2* CHLOR 104 104 104 104 CO2 24 23 24 20* CREAT 2.46* 2.52* 2.61* 2.42* BUN 33* 29* 31* 31* GLUC 190* 169* 175* 193* P 2.9 3.3 -- 3.9 MG 1.8 1.8 -- 1.9 CA 8.9 9.1 9.5 9.3 CRP -- 19.6* -- 7.7*[facility]03-20-2025 NoteHNO ID: [id number] Author: JAYESH MANZANO RN Service: Care Management Author Type: Registered Nurse Type: Care Mgt Initial Assessment Filed: 01/15/2025 13:02 Note Text: CARE MANAGEMENT: ASSESSMENT AND DISCHARGE PLAN SERVICE DATE: January 15, 2025 SERVICE TIME: 12:55 PM PCP: No primary care provider on file. Primary Contact: Extended Emergency Contact Information Primary Emergency Contact: Pascale Zamora Mobile Relation: Mother Admission Status: Inpatient Insurance Provider: [facility] Discharge Planning requested by: Per Department Practice Potential Transition Plans To Be Determined Advance Directives Current Advance Directive: None Border Measurer Attempted to Assist with AD Completion: Yes Action: Education Provided Current Living Arrangements and Support Lives with: Parent Type of Residence: Private Residence (House) Does the patient have to climb stairs at home?: Yes, stairs outside the home, stairs within the home Support: Parent How do you manage to accomplish the following: Independent: Ambulation, Bathe/Shower, Dress, Meals/Meal Prep, Going to the bathroom, Medication Management Current Services/Equipment Current Post-Acute Service(s): DME Current DME Type: Walker, Wheelchair-manual Discharge Planning Patient Goal(s): General wellness, Be able to go home [place] of Choice Explained: [place] of Choice Given: No Reason Not Given: No placements necessary Are you interested in bedside delivery of your medications? No (not offered on H71) Discharge Planning Participant(s): Patient Caregiver Assessment: Caregiver is ready, willing and able to meet the patient's needs as recommended by the inter-professional team: Yes Name of Caregiver: Pascale Zamora ([facility]) Transport at Discharge: Transportation Arrangements: Car Destination: Home Needs Prior to Discharge: Needs Prior to Discharge: To Be Determined Post-Acute Discharge Plan: 44 year old female POD#2 bilateral TAR. CM met with patient at bedside. Per patient she was independent prior to admission. Owns a wheelchair and a walker. Patient uses the wheelchair for long distances due to Vertigo. Lives with parents. Per patient, parents will transport home. CM will continue to follow for transitional care needs. SIGNATURE: Jayesh Manzano RN PATIENT NAME: Guerrero Ramos DATE: January 15, 2025 TIME: 12:55 [facility]03-20-2025 NoteHNO ID: [id number] Author: SATHYA CAZARES APRN.TAN ROOM SUPERVISOR Service: General Surgery Author Type: Nurse Practitioner Type: Progress Notes Filed: 01/15/2025 08:45 Note Text: GENERAL SURGERY PROGRESS NOTE Patient name: Guerrero Ramos Date of : 1980 Admission date: 01/13/2025 POD: 2 Days Post-Op Procedure(s) and Anesthesia Type: * HERNIORRHAPHY VENTRAL RECURRENT REDUCIBLE GREATER THAN 10cm - General ASSESSMENT AND PLAN: Guerrero Ramos is a 44 yo F with morbid obesity (BMI 52), CKD (baseline scr 2.4), HTN, hypothyroidism who presented 01/13/25 for a bilateral TAR by Dr. Franco. Now POD 2, recovering on RNF. - Advance to full liquids this AM. GIS later on if feeling well. - Decrease mIVF - MMP regimen including PRECISION LENS GRINDER APPRENTICE per DEC~ wean PRECISION LENS GRINDER APPRENTICE with diet advancement. - Order placed for shower. - PT/OT. Encouraged to continue walking today. - IS use, wean o2. Minimize prn use. - Daily labs, replete electrolytes prn. - SCDs, bariatric dosing DVT ppx (Heparin 5000u TID) - ACHS accuchecks, SSI insulin. DISPO: - RNF care. Discharge in 1-2 days pending diet advancement. Patient Active Hospital Problem List: S/P repair of ventral hernia Date Noted: 01/14/2025 HTN (hypertension) Date Noted: Hypothyroidism Date Noted: Acute post-operative pain Date Noted: 01/14/2025 Electrolyte imbalance Date Noted: 01/14/2025 Morbid obesity with BMI of 50.0-59.9, adult (HCC) Date Noted: 01/14/2025 Above plan of care discussed with staff. Sathya Cazares MSN, HOSPICE DIRECTOR.[facility] General Surgery [id number] Noemi Service - [id number] SUBJECTIVE: - No acute events overnight - Pain well managed. - Passing flatus, no BM yet. - No nausea this morning. Tolerating clears - Walked in hallway yesterday. OBJECTIVE: Physical Exam: BP 120/69 Pulse 71 Temp 36.7 ?C (98.1 ?F) (Oral) Resp 18 LMP 03/24/2024 (Approximate) SpO2 100% General: Resting in bed. No acute distress. Heart: Regular rate and rhythm. Lungs: Unlabored respirations on 2L O2. Symmetric chest rise. Abdomen: Obese, non distended, appropriately tender. Incision C/D/I with surgical glue intact. JENI x3 SS. Intake and Output (past 24h): Intake/Output Summary (Last 24 hours) at 01/15/2025 0845 Last data filed at 01/15/2025 0829 Gross per 24 hour Intake 2113 ml Output 1795 ml Net 318 ml LDAs: Lines, Drains, and Airways Line Duration Peripheral 01/13/25 0630 Short Right Forearm 20 Gauge 2 days Peripheral 01/13/25 0737 Left 18 Gauge 2 days Drain Duration Drain/Tube 01/13/25 1004 Erich Villagomez Left Upper Quadrant Abdomen Drain #1 1 day Drain/Tube 01/13/25 1005 Erich Villagomez Left Lower Quadrant Abdomen Drain #2 1 day Drain/Tube 01/13/25 1005 Erich Villagomez Right Upper Quadrant Abdomen Drain #3 1 day Recent Labs: Recent Labs 01/14/25 2144 01/14/25 1544 01/13/25 2239 01/12/25 1003 WBC 8.10 -- 10.37 8.41 HB 9.1* -- 10.8* 13.1 HCT 29.8* -- 34.6* 41.9 PLT 197 -- 234 267 NA 136 138 138 137 K 3.9 4.6 5.2* 5.0 CHLOR 104 104 104 102 CO2 23 24 20* 26 CREAT 2.52* 2.61* 2.42* 2.58* BUN 29* 31* 31* 28* GLUC 169* 175* 193* 149* P 3.3 -- 3.9 -- TPROT -- -- -- 7.7 ALB -- -- -- 4.2 MG 1.8 -- 1.9 -- CA 9.1 9.5 9.3 10.0 ALKPHOS -- -- -- 89 TBILI -- -- -- 0.3 AST -- -- -- 20 ALT -- -- -- 14 CRP 19.6* -- 7.7* -- Recent Labs 01/12/25 1003 INR 1.0[facility]03-20-2025 NoteHNO ID: [id number] Author: SATHYA CAZARES APRN.TAN ROOM SUPERVISOR Service: General Surgery Author Type: Nurse Practitioner Type: Progress Notes Filed: 01/15/2025 08:39 Note Text: Documentation Query Please clarify the diagnosis associated with the clinical indicators for this patient Provider Response: Hyperkalemia This document will become part of the patient's medical record.[facility]03-19-2025 NoteHNO ID: [id number] Author: SATHYA CAZARES APRN.TAN ROOM SUPERVISOR Service: General Surgery Author Type: Nurse Practitioner Type: Progress Notes Filed: 01/14/2025 11:00 Note Text: GENERAL SURGERY PROGRESS NOTE Patient name: Guerrero Ramos Date of : 1980 Admission date: 01/13/2025 POD: 1 Day Post-Op Procedure(s) and Anesthesia Type: * HERNIORRHAPHY VENTRAL RECURRENT REDUCIBLE GREATER THAN 10cm - General ASSESSMENT AND PLAN: Guerrero Ramos is a 44 yo F with morbid obesity (BMI 52), CKD (baseline scr 2.4), HTN, hypothyroidism who presented 01/13/25 for a bilateral TAR by Dr. Franco. Now POD 1, recovering on RNF. - Advance to CLD. - Continue mIVF until adequate PO intake. - MMP regimen including PRECISION LENS GRINDER APPRENTICE per MAR - Discontinue duncan - PT/OT consults. - Discussed importance of mobilizing out of bed to chair today. - IS use, wean o2. Minimize prn use. - Daily labs, replete electrolytes prn. - SCDs, bariatric dosing DVT ppx (Heparin 5000u TID) - ACHS accuchecks, SSI insulin. Added HgB A1c to labs. DISPO: - RNF care. - Dispo plans TBD pending clinical course, therapy recs. Patient Active Hospital Problem List: S/P repair of ventral hernia Date Noted: 01/14/2025 HTN (hypertension) Date Noted: Hypothyroidism Date Noted: Acute post-operative pain Date Noted: 01/14/2025 Electrolyte imbalance Date Noted: 01/14/2025 Morbid obesity with BMI of 50.0-59.9, adult (HCC) Date Noted: 01/14/2025 Above plan of care discussed with staff. Sathya Cazares MSN, HOSPICE DIRECTOR.[facility] General Surgery [id number] [facility] Service - [id number] SUBJECTIVE: - No acute events overnight - Pain well controlled with PRECISION LENS GRINDER APPRENTICE - No N/V. No return of bowel function. - Has not been out of bed yet. OBJECTIVE: Physical Exam: BP 96/53 Pulse 72 Temp 36.5 ?C (97.7 ?F) (Oral) Resp 18 LMP 03/24/2024 (Approximate) SpO2 98% General: Resting in bed. No acute distress. Heart: Regular rate and rhythm. Lungs: Unlabored respirations on 3L O2. Symmetric chest rise. Abdomen: Obese, non distended, appropriately tender. Initial post op dressing intact. JENI x3 SS. Intake and Output (past 24h): Intake/Output Summary (Last 24 hours) at 01/14/2025 1100 Last data filed at 01/14/2025 0522 Gross per 24 hour Intake 300 ml Output 1465 ml Net -1165 ml LDAs: Lines, Drains, and Airways Line Duration Peripheral 01/13/25 0630 Short Right Forearm 20 Gauge 1 day Peripheral 01/13/25 0737 Left 18 Gauge 1 day Drain Duration Drain/Tube 01/13/25 1004 Erich Villagomez Left Upper Quadrant Abdomen Drain #1 1 day Drain/Tube 01/13/25 1005 Erich Villagomez Left Lower Quadrant Abdomen Drain #2 1 day Drain/Tube 01/13/25 1005 Erich Villagomez Right Upper Quadrant Abdomen Drain #3 1 day Indwelling Urinary Catheter 01/13/25 0735 [facility] Duncan 16 Fr 1 day Recent Labs: Recent Labs 01/13/25 2239 01/12/25 1003 WBC 10.37 8.41 HB 10.8* 13.1 HCT 34.6* 41.9 PLT 234 267 NA 138 137 K 5.2* 5.0 CHLOR 104 102 CO2 20* 26 CREAT 2.42* 2.58* BUN 31* 28* GLUC 193* 149* P 3.9 -- TPROT -- 7.7 ALB -- 4.2 MG 1.9 -- CA 9.3 10.0 ALKPHOS -- 89 TBILI -- 0.3 AST -- 20 ALT -- 14 CRP 7.7* -- Recent Labs 01/12/25 1003 INR 1.0[facility]03-18-2025 NoteHNO ID: [id number] Author: VIVEK MOREIRA APRN.FOREIGN EXCHANGE TRADER Service: ? Author Type: Nurse Steam Press Tender Type: Anesthesia Procedure Notes Filed: 01/13/2025 08:03 Note Text: ANESTHESIOLOGY PROCEDURE NOTE PIV General Information Procedure Start Time/Medication Administration: 01/13/2025 7:37 AM Procedure End Time: 01/13/2025 7:39 AM Patient Location: OR Staffing FOREIGN EXCHANGE TRADER: Vivek Moreira APRN.FOREIGN EXCHANGE TRADER Performed by: FOREIGN EXCHANGE TRADER Preparation Site Prep: alcohol Procedure Details Indication: need for IV access Needle Size/Type: 18 gauge angiocath Orientation: Left Location: Wrist SIGNATURE: Vivek Moreira APRN.FOREIGN EXCHANGE TRADER PATIENT NAME: Guerrero Ramos DATE: January 13, 2025 TIME: 8:02 AM CS[facility]: [id number] NoteHNO ID: [id number] Author: VIVEK MOREIRA APRN.FOREIGN EXCHANGE TRADER Service: ? Author Type: Nurse Steam Press Tender Type: Anesthesia Procedure Notes Filed: 01/13/2025 08:02 Note Text: ANESTHESIOLOGY PROCEDURE NOTE Airway General Information Procedure Start Time/Medication Administration: 01/13/2025 7:29 AM Procedure End Time: 01/13/2025 7:32 AM Patient location during procedure: OR Timeout Performed Pre-procedure: timeout performed Consent Obtained: Yes Patient identity confirmed: arm band and patient Staffing FOREIGN EXCHANGE TRADER: Vivek Moreira APRN.FOREIGN EXCHANGE TRADER Performed by: HUANG Indications and Patient Condition Indications for airway management: anesthesia Preoxygenated: yes anesthesia circuit Patient position: sniffing Method: asleep Difficult Mask: No Final Airway Details Final airway type: endotracheal airway Final Endotracheal Airway: ETT Cuffed: yes Successful intubation technique: video laryngoscopy Devices used: [employer] Endotracheal tube insertion site: oral Blade size: #3 ETT size (mm): 7.0 Measured from: lips Measurement (cm): 21 Placement verified by: capnometry Cormack-Lehane Classification: grade I - full view of glottis Number of attempts at approach: 1 Airway not difficult SIGNATURE: Vivek Moreira APRN.CRNA PATIENT NAME: Guerrero Ramos DATE: January 13, 2025 TIME: 8:02 AM CSN: [id number] Instructions* Patient Instructions* Yandel Stevens MD - 01/12/2025 9:45 AM EDT Images from the original note were not included. [facility] PATIENT PREOPERATIVE INSTRUCTIONS No ref. provider found has scheduled you for your procedure at this surgery center: [facility] OR Scheduling Office: [phone] --[address] [place] [address]. Please read below carefully for your personalized instructions. Dietary Restrictions: - No solid food after midnight. - You may have 12 ounces of clear liquids (water, clear juices such as apple juice or gatorade, carbonated beverages, clear tea, black coffee, jello) until 2 hours before scheduled arrival at facility. Medications: Unless instructed differently below, stay on all of your medications until your surgery. If you start any new medications after today's visit, please contact your surgeon. Pre-Surgery Med Instructions Medication Instructions ALPRAZolam (XANAX) 0.25 mg tablet Take the day of surgery with a small sip of water if need. levothyroxine 75 mcg cap Take the day of surgery with a small sip of water meclizine (ANTIVERT) 25 mg tab Take the day of surgery with a small sip of water if needed amLODIPine (NORVASC) 2.5 mg tablet Take the day of surgery with a small sip of water insulin glargine,hum.rec.anlog (TOUJEO MAX U-300 SOLOSTAR SUBCUTANEOUS) Do not take the day of surgery tolterodine (DETROL) 2 mg tablet Take the day of surgery with a small sip of water rosuvastatin (CRESTOR) 20 mg tablet Take the day of surgery with a small sip of water sertraline (ZOLOFT) 50 mg tablet Take the day of surgery with a small sip of water If you start any new medications after today's visit, please contact the surgeon's office. If you are currently using a sapo-svd-wrzm injectable or oral medication for diabetes or weight loss such as Dulaglutide (Trulicity), Exenatide (Byetta, Bydureon), Liraglutide (Victoza, Saxenda), Semaglutide (Ozempic, Wegovy, Rybelsus), or Tirzepatide (Mounjaro), the medicine should be stopped at least 7 days before surgery. These medicines can cause food to remain in your stomach for a very longtime and increase the risks from surgery and anesthesia. Not stopping the medication for a long enough time may result in your surgery being rescheduled. Blood Thinning Medications: - Stop NSAIDS (Ibuprofen, Advil, Aleve, Motrin, Celebrex, Mobic, etc.) 7 days before surgery, as directed by your surgeon. - Stop Aspirin 7 days before surgery, as directed by your surgeon. - Stop ALL herbal and dietary supplements 7 days before surgery. Important Reminders: - If you use CPAP/BIPAP, bring the machine with you to the surgery center. - Candy, mints, and tobacco products are NOT permitted the morning of surgery. - Hearing aids, dentures and glasses may be worn the morning of surgery. - NO jewelry, body piercings, makeup, hairpins or contacts are to be worn the day of surgery. If you develop symptoms such as a fever, cold, or flu, or have other changes to your health within TWO DAYS of scheduled surgery or the morning of surgery, please contact the surgery center above. Personal Belongings: -Please have photo ID and insurance cards. -If you do not have a copy of advance directives on file with us, please bring a copy with you on the day of surgery. - Leave ALL valuables and money at home or with family members. - Please bring high-quality footwear, such as sneakers, to the hospital for ambulating post-surgery. Arrival Time for Surgery: - To obtain your arrival time for surgery, call your physician's office the day before your surgery. - If you have received different instructions about finding out your arrival time from your surgeon, please follow those instructions. - If your surgery is scheduled for Sunday, call the Sunday before. Your surgeon s newswriter will tell you what time to call the office. - If you have not reached the departmental newswriter by 5 P.M., call [phone] after 5 P.M. the day before your surgery. Please be aware that emergency situations arise, which may delay or change your surgical time. If this happens, we will notify you as soon as possible and regret any inconvenience. If you already have an Advance Directive, please fax a copy to [phone] or email to for it to be added to your chart. If you do not have an Advance Directive, you can find the appropriate form and more information at [email or web address]. We recommend that youcomplete the Advance Directive form found on the website and bring it with you the day of your surgery. It can be witnessed and scanned into your chart that day. Yandel Stevens MD documented in this encounterW[facility] History and physical note * Yandel Stevens MD - 01/12/2025 9:28 AM EDT Images from the original note were not included. [facility] HISTORY AND PHYSICAL EXAMINATION SERVICE DATE: 01/12/2025 SERVICE TIME: 9:59 AM PRIMARY CARE PHYSICIAN: No primary care provider on file. Assessment Patient has the following medical conditions which may affect annie-operative course: HTN (hypertension) Managed on amlodipine HLD (hyperlipidemia) On statin CKD (chronic kidney disease) Most recent sCr 2.43 from 08/2024. Electrolytes within normal limits. Will repeat BMP. Never on dialysis. Hypothyroidism Managed on synthroid. Class 3 severe obesity due to excess calories with serious comorbidity and body mass index (BMI) of50.0 to 59.9 in adult (HCC) BMI 51 Hernia, incisional Scheduled for repair. ANESTHESIA FINDINGS: Intubation History: No history of difficult intubation Significant Anesthesia Considerations: none Airway History: No history of difficult airway [place] Activity Status Index: METS: Walk indoors, such as around the house (1.75 METs) Cannot do light work around the house, such as dusting or washing dishes Cannot take care of self; that is eating, dressing, bathing, using the toilet Cannot walk a block or two on level ground Cannot do moderate work around the house, such as vacuuming, sweeping floors, or carrying in groceries Cannot do yardwork, such as raking leaves, weeding, or pushing a power mower DASI Score: 1.75 Patient is limited most or all of the time (uses scooter, mobility device). Clinical Frailty Scale: 6. Moderately frail STOP-Bang Score: Has or is being treated for high blood pressure BMI greater than 35 kg/m^2 Denies snoring loudly Denies feeling tired, fatigued, or sleepy during the daytime Has not been observed to stop breathing or choking/gasping during sleep Patient 50 years old or younger Non-male patient STOP-Bang Score: 2 I - PHYSICAL EVALUATION AIRWAY Patient intubated: No. Tracheostomy tube not present Mallampati: III. TM distance: >3 FB. Neck ROM: full ROM without neurological symptoms. Mouth opening: adequate. Short neck: no. Thick neck: no Bain present: no DENTAL Dental findings: teeth intact. II - ANESTHESIA PLAN Anesthetic plan additional comments: *PACC/TCI - anesthesia choice. Beta Shabnam Monitoring Plan Post Procedure Analgesic Plan Prepared for Surgery: optimally prepared for surgery, pending [see comment]. Labs per surgical service CONSULTS: Patient does not require consults for optimization at this time Planned Anesthetic: anesthesia choice The Following Tests/Procedures Have Been Initiated: No orders of the defined types were placed in this encounter. REASON FOR VISIT: Guerrero Ramos is a 44 year old female who is scheduled for Procedure(s): HERNIORRHAPHY VENTRAL RECURRENT REDUCIBLE GREATER THAN 10cm (N/A) at the request of @REFPROV2@ for consultation. My final recommendation will be communicated back to the requesting physician by way of shared medical record or letter. Subjective The patient has the following: COVID-19 Immunization Status Current Care Gaps Covid-19 Vaccine () Overdue since 06/29/2024 11/07/2021 Imm Admin: COVID-19 original vaccine, full dose, monovalent (MODERNA) 04/19/2021 Imm Admin: COVID-19 original vaccine, full dose, monovalent (MODERNA) 03/21/2021 Imm Admin: COVID-19 original vaccine, full dose, monovalent (MODERNA) Only the first 3 history entries have been loaded, but more history exists. CHIEF COMPLAINT: Pre-op evaluation HPI: Patient is a 44 year old year old female who is scheduled for above case on 01/13/2025. Patienthas two hernias that have been causing pain, no rescheduled for repair. Denies any fevers, chills, nausea, vomiting, SOB or chest pain. REVIEW OF SYSTEMS: General: Negative for: weight loss >10% of BW in last 6 months, malaise and fever. Neurological: Negative for: delirium, dementia, headaches, seizures, TIA and strokes. Respiratory: Negative for: asthma, COPD, current cough, dyspnea, home oxygen, pneumonia within 6 weeks, tobacco use and obstructive sleep apnea. Cardiovascular: Negative for: angina, arrhythmia, CAD, chest pain, CHF, DVT/PE, hypertension, recent SC, murmur/valvular heart disease and PVD. GI: Negative for: abdominal pain, GERD, heartburn, hepatitis, inflammatory bowel disease, liver diseaseand ETOH >2 drinks/day. : Negative for: on dialysis, dysuria, hematuria and nephrolithiasis. Endocrine: Negative for: diabetes mellitus, hyperthyroidism, hypothyroidism and steroid for chronic problem. Hematology: Negative for: anemia, thrombocytopenia and chronic anti-coagulation/platelet meds. Oncology: Colon cancer in 2016. Psych: Negative for: ADD, anxiety, bipolar disorder, depression and drug dependency. Musculoskeletal: Negative for joint pain or swelling, back pain or muscle pain. Skin: Negative for lesions, rash and itching. PAST MEDICAL HISTORY Diagnosis Date CKD (chronic kidney disease) HLD (hyperlipidemia) HTN (hypertension) Hypothyroidism Obesity Overactive bladder PAST SURGICAL HISTORY Procedure Laterality Date PAST SURGICAL HISTORY OF Colon cancer resection PAST SURGICAL HISTORY OF gallbladder removal No family history on file. Social History Tobacco Use Smoking status: Never Passive exposure: Current (Parents smoke per pt 01/12/2025) Smokeless tobacco: Never Substance Use Topics Alcohol use: Not Currently Drug use: Never Prior to Admission medications as of 01/12/25 0953 Medication Sig Last Dose Taking ALPRAZolam (XANAX) 0.25 mg tablet Take 0.25 mg by mouth at bedtime as needed. Yes levothyroxine 75 mcg cap Take 75 mcg by mouth daily before breakfast. Yes meclizine (ANTIVERT) 25 mg tab Take 25 mg by mouth three times a day. Yes amLODIPine (NORVASC) 2.5 mg tablet Take by mouth once daily. Yes insulin glargine,hum.rec.anlog (TOUJEO MAX U-300 SOLOSTAR SUBCUTANEOUS) Inject subcutaneously. Yes tolterodine (DETROL) 2 mg tablet Take 2 mg by mouth two times a day. Yes rosuvastatin (CRESTOR) 20 mg tablet Take 20 mg by mouth once daily. Yes sertraline (ZOLOFT) 50 mg tablet Take 50 mg by mouth once daily. Yes Meloxicam 7.5 mg/5 mL susp Take by mouth. ondansetron HCl (ZOFRAN ORAL) Take by mouth as needed. mirabegron (MYRBETRIQ) 25 mg Tb24 Take by mouth. Patient not taking: Reported on 01/12/2025 ergocalciferol 50,000 unit capsule (VITAMIN D2, DRISDOL) Take 50,000 Units by mouth one time a week. No medication comments found. ALLERGIES Allergen Reactions Penicillins Rash Objective PHYSICAL EXAM: General: alert and oriented and healthy appearance. Pertinent negatives noted - not distressed. Skin: normal color, no rash or lesions. HEENT: pupils equal round. Pertinent negatives noted - no carotid bruit. Cardiovascular: regular rate and rhythm, normal S1 and S2, no rub, murmurs, or gallop. Respiratory: normal breath sounds, no wheezes or crackles. Abdomen: Non-distended.. Extremities: no deformity, no edema or tenderness, no joint swelling or clubbing. Neurological: normal cognition and motor skills. PAIN ASSESSMENT: VITALS: BP 132/76 Pulse 81 Temp (Src) 98 (Oral) Ht 5' 3 (1.60m) Wt 292 lb 1.8 oz (132.5kg) SpO2 98% LMP 12/21/2024 BMI 51.76 kg/(m^2). Diagnostic tests reviewed for today's visit: Lab Value Units Date High Low HB No results within date range. HCT No results within date range. WBC No results within date range. PLT No results within date range. NA No results within date range. K No results within date range. GLUC No results within date range. BUN No results within date range. CREAT No results within date range. PTSEC No results within date range. INR No results within date range. APTT No results within date range. ALT No results within date range. AST No results within date range. TBILI No results within date range. TSH No results within date range. Lab Value Units Date High Low HCGQT No results within date range. UHCG No results within date range. HCG, BODY* No results within date range. Lab Value Units Date High Low ABORHD No results within date range. ABSCREEN No results within date range. No results found for: HBA1C Recent Results (from the past 8760 hours) ECG COMPLETE Collection Time: 01/12/25 8:31 AM Result Value Ventricular Rate 84 Atrial Rate 84 P-R Interval 142 QRS Duration 80 QT Interval 374 QTC Calculation (Bazett) 441 Calculated P [place] 28 Calculated R [place] -1 Calculated T [place] 17 Impression NORMAL SINUS RHYTHM NORMAL ECG No results found for this or any previous visit (from the past 56849 hours). Instructions Given to Patient: Instructions located in the after visit summary. Patient given verbal and written preop instructions and voices comprehension and compliance. SIGNATURE: Yandel Stevens MD PATIENT NAME: Guerrero Ramos DATE: January 12, 2025 TIME: 9:28 AM PAGER/CONTACT #: Attending Note I evaluated the patient and personally participated in the zarate components. I agree with the resident's findings and plan as documented and have discussed the case and management of the patient's carewith the resident. Signature: Dagmar Diaz MD Date: 01/12/2025 Time: 12:26 PM [facility]03[facility] History and physical note* Yandel Stevens MD - 01/12/2025 9:28 AM EDT Images from the original note were not included. [facility] HISTORY AND PHYSICAL EXAMINATION SERVICE DATE: 01/12/2025 SERVICE TIME: 9:59 AM PRIMARY CARE PHYSICIAN: No primary care provider on file. Assessment Patient has the following medical conditions which may affect annie-operative course: HTN (hypertension) Managed on amlodipine HLD (hyperlipidemia) On statin CKD (chronic kidney disease) Most recent sCr 2.43 from 08/2024. Electrolytes within normal limits. Will repeat BMP. Never on dialysis. Hypothyroidism Managed on synthroid. Class 3 severe obesity due to excess calories with serious comorbidity and body mass index (BMI) of50.0 to 59.9 in adult (HCC) BMI 51 Hernia, incisional Scheduled for repair. ANESTHESIA FINDINGS: Intubation History: No history of difficult intubation Significant Anesthesia Considerations: none Airway History: No history of difficult airway [place] Activity Status Index: METS: Walk indoors, such as around the house (1.75 METs) Cannot do light work around the house, such as dusting or washing dishes Cannot take care of self; that is eating, dressing, bathing, using the toilet Cannot walk a block or two on level ground Cannot do moderate work around the house, such as vacuuming, sweeping floors, or carrying in groceries Cannot do yardwork, such as raking leaves, weeding, or pushing a power mower DASI Score: 1.75 Patient is limited most or all of the time (uses scooter, mobility device). Clinical Frailty Scale: 6. Moderately frail STOP-Bang Score: Has or is being treated for high blood pressure BMI greater than 35 kg/m^2 Denies snoring loudly Denies feeling tired, fatigued, or sleepy during the daytime Has not been observed to stop breathing or choking/gasping during sleep Patient 50 years old or younger Non-male patient STOP-Bang Score: 2 I - PHYSICAL EVALUATION AIRWAY Patient intubated: No. Tracheostomy tube not present Mallampati: III. TM distance: >3 FB. Neck ROM: full ROM without neurological symptoms. Mouth opening: adequate. Short neck: no. Thick neck: no Bain present: no DENTAL Dental findings: teeth intact. II - ANESTHESIA PLAN Anesthetic plan additional comments: *PACC/TCI - anesthesia choice. Beta Shabnam Monitoring Plan Post Procedure Analgesic Plan Prepared for Surgery: optimally prepared for surgery, pending [see comment]. Labs per surgical service CONSULTS: Patient does not require consults for optimization at this time Planned Anesthetic: anesthesia choice The Following Tests/Procedures Have Been Initiated: No orders of the defined types were placed in this encounter. REASON FOR VISIT: Guerrero Ramos is a 44 year old female who is scheduled for Procedure(s): HERNIORRHAPHY VENTRAL RECURRENT REDUCIBLE GREATER THAN 10cm (N/A) at the request of @REFPROV2@ for consultation. My final recommendation will be communicated back to the requesting physician by way of shared medical record or letter. Subjective The patient has the following: COVID-19 Immunization Status Current Care Gaps Covid-19 Vaccine ( season) Overdue since 06/29/2024 11/07/2021 Imm Admin: COVID-19 original vaccine, full dose, monovalent (MODERNA) 04/19/2021 Imm Admin: COVID-19 original vaccine, full dose, monovalent (MODERNA) 03/21/2021 Imm Admin: COVID-19 original vaccine, full dose, monovalent (MODERNA) Only the first 3 history entries have been loaded, but more history exists. CHIEF COMPLAINT: Pre-op evaluation HPI: Patient is a 44 year old year old female who is scheduled for above case on 01/13/2025. Patienthas two hernias that have been causing pain, no rescheduled for repair. Denies any fevers, chills, nausea, vomiting, SOB or chest pain. REVIEW OF SYSTEMS: General: Negative for: weight loss >10% of BW in last 6 months, malaise and fever. Neurological: Negative for: delirium, dementia, headaches, seizures, TIA and strokes. Respiratory: Negative for: asthma, COPD, current cough, dyspnea, home oxygen, pneumonia within 6 weeks, tobacco use and obstructive sleep apnea. Cardiovascular: Negative for: angina, arrhythmia, CAD, chest pain, CHF, DVT/PE, hypertension, recent SC, murmur/valvular heart disease and PVD. GI: Negative for: abdominal pain, GERD, heartburn, hepatitis, inflammatory bowel disease, liver diseaseand ETOH >2 drinks/day. : Negative for: on dialysis, dysuria, hematuria and nephrolithiasis. Endocrine: Negative for: diabetes mellitus, hyperthyroidism, hypothyroidism and steroid for chronic problem. Hematology: Negative for: anemia, thrombocytopenia and chronic anti-coagulation/platelet meds. Oncology: Colon cancer in 2016. Psych: Negative for: ADD, anxiety, bipolar disorder, depression and drug dependency. Musculoskeletal: Negative for joint pain or swelling, back pain or muscle pain. Skin: Negative for lesions, rash and itching. PAST MEDICAL HISTORY Diagnosis Date CKD (chronic kidney disease) HLD (hyperlipidemia) HTN (hypertension) Hypothyroidism Obesity Overactive bladder PAST SURGICAL HISTORY Procedure Laterality Date PAST SURGICAL HISTORY OF Colon cancer resection PAST SURGICAL HISTORY OF gallbladder removal No family history on file. Social History Tobacco Use Smoking status: Never Passive exposure: Current (Parents smoke per pt 01/12/2025) Smokeless tobacco: Never Substance Use Topics Alcohol use: Not Currently Drug use: Never Prior to Admission medications as of 01/12/25 0953 Medication Sig Last Dose Taking ALPRAZolam (XANAX) 0.25 mg tablet Take 0.25 mg by mouth at bedtime as needed. Yes levothyroxine 75 mcg cap Take 75 mcg by mouth daily before breakfast. Yes meclizine (ANTIVERT) 25 mg tab Take 25 mg by mouth three times a day. Yes amLODIPine (NORVASC) 2.5 mg tablet Take by mouth once daily. Yes insulin glargine,hum.rec.anlog (TOUJEO MAX U-300 SOLOSTAR SUBCUTANEOUS) Inject subcutaneously. Yes tolterodine (DETROL) 2 mg tablet Take 2 mg by mouth two times a day. Yes rosuvastatin (CRESTOR) 20 mg tablet Take 20 mg by mouth once daily. Yes sertraline (ZOLOFT) 50 mg tablet Take 50 mg by mouth once daily. Yes Meloxicam 7.5 mg/5 mL susp Take by mouth. ondansetron HCl (ZOFRAN ORAL) Take by mouth as needed. mirabegron (MYRBETRIQ) 25 mg Tb24 Take by mouth. Patient not taking: Reported on 01/12/2025 ergocalciferol 50,000 unit capsule (VITAMIN D2, DRISDOL) Take 50,000 Units by mouth one time a week. No medication comments found. ALLERGIES Allergen Reactions Penicillins Rash Objective PHYSICAL EXAM: General: alert and oriented and healthy appearance. Pertinent negatives noted - not distressed. Skin: normal color, no rash or lesions. HEENT: pupils equal round. Pertinent negatives noted - no carotid bruit. Cardiovascular: regular rate and rhythm, normal S1 and S2, no rub, murmurs, or gallop. Respiratory: normal breath sounds, no wheezes or crackles. Abdomen: Non-distended.. Extremities: no deformity, no edema or tenderness, no joint swelling or clubbing. Neurological: normal cognition and motor skills. PAIN ASSESSMENT: VITALS: BP 132/76 Pulse 81 Temp (Src) 98 (Oral) Ht 5' 3 (1.60m) Wt 292 lb 1.8 oz (132.5kg) SpO2 98% LMP 12/21/2024 BMI 51.76 kg/(m^2). Diagnostic tests reviewed for today's visit: Lab Value Units Date High Low HB No results within date range. HCT No results within date range. WBC No results within date range. PLT No results within date range. NA No results within date range. K No results within date range. GLUC No results within date range. BUN No results within date range. CREAT No results within date range. PTSEC No results within date range. INR No results within date range. APTT No results within date range. ALT No results within date range. AST No results within date range. TBILI No results within date range. TSH No results within date range. Lab Value Units Date High Low HCGQT No results within date range. UHCG No results within date range. HCG, BODY* No results within date range. Lab Value Units Date High Low ABORHD No results within date range. ABSCREEN No results within date range. No results found for: HBA1C Recent Results (from the past 8760 hours) ECG COMPLETE Collection Time: 01/12/25 8:31 AM Result Value Ventricular Rate 84 Atrial Rate 84 P-R Interval 142 QRS Duration 80 QT Interval 374 QTC Calculation (Bazett) 441 Calculated P [place] 28 Calculated R [place] -1 Calculated T [place] 17 Impression NORMAL SINUS RHYTHM NORMAL ECG No results found for this or any previous visit (from the past 74187 hours). Instructions Given to Patient: Instructions located in the after visit summary. Patient given verbal and written preop instructions and voices comprehension and compliance. SIGNATURE: Yandel Stevens MD PATIENT NAME: Guerrero Ramos DATE: January 12, 2025 TIME: 9:28 AM PAGER/CONTACT #: Attending Note I evaluated the patient and personally participated in the zarate components. I agree with the resident's findings and plan as documented and have discussed the case and management of the patient's carewith the resident. Signature: Dagmar Diaz MD Date: 01/12/2025 Time: 12:26 PM documented in this encounterWad[facility]03-[facility] History of Present illness Narrative* ALESSIO Parsons - 01/08/2025 12:23 PM EDT The OARRS/MAPPS database was reviewed today and found to be appropriate. No indication of medication diversion, or non compliance. ALESSIO Parsons 01/08/25 1225 [facility] in [facility]25 NoteHNO ID: [id number] Author: MIGUEL ÁNGEL HOPSON APRN.CNP Service: ? Author Type: Nurse Practitioner Type: Progress Notes Filed: 12/31/2024 10:26 Note Text: BMI Obesity Medicine Follow-Up Note- Distance Health Visit December 31, 2024 This Team Access Model visit is a virtual encounter. It required patient-provider interaction for the medical decision making as documented below. I have communicated my name and active licensure. The patient's identity and physical location were verified at the time of this visit. Either the patient or their legal unit support representative has been informed of the risks and benefits of -- and alternatives to -- treatment through a remote evaluation and consents to proceed with the evaluation remotely. Patient Summary: is a 44 year old female who presents for follow-up evaluation of her obesity and related complications to the [facility] [place]. Initial program weight: 311 lb (June 2024) Recent Weight history: Last Wt 12/31/24 : 130.2 kg (287 lb) 11/07/24 : 130.6 kg (288 lb) 10/08/24 : (!) 137 kg (302 lb) 09/03/24 : (!) 139.3 kg (307 lb) Assessement/plan from last visit: 1. Class 3 severe obesity due to excess calories with serious comorbidity and body mass index (BMI) of 50.0 to 59.9 in adult ([facility]) - ICD9: 278.01, V85.43, ICD10: E66.813, Z68.43, E66.01 (primary diagnosis) -Weight decreasing, TBW loss: 7.40% -Continue to increase physical activity with goal of 200 min/week (discussed adding in aerobic training) - LIRAGLUTIDE 0.6 MG/0.1 ML (18 MG/3 ML) SUBCUTANEOUS PEN INJECTOR -Continue Phentermine 37.5 mg daily as prescribed by PCP -Follow up in 4 weeks 2. Type 2 diabetes mellitus with chronic kidney disease, with long-term current use of insulin, unspecified CKD stage ([facility]) - ICD9: 250.40, 585.9, V58.67, ICD10: E11.22, Z79.4 -Last hba1c was 5.8 (08/25/2024) - LIRAGLUTIDE 0.6 MG/0.1 ML (18 MG/3 ML) SUBCUTANEOUS PEN INJECTOR -Continue with lifestyle changes -Will redraw before surgery with [facility] labs 3. Dietary counseling and surveillance - ICD9: V65.3, ICD10: Z71.3 -Continue to eat a high protein, low calorie, low carb eating plan -Continue with increase water intake with goal of 64 ounces per day -Continue with decreased snacking 4. Hypertension, unspecified type - ICD9: 401.9, ICD10: I10 -Controlled -Continue home medications Interval History: PT specifies the following items as new or significant updates since the last appointment: Last visit was with me in October. Reports weight is stable since last visit. Anti-obesity medications: Phentermine 37.5 mg daily Benefit: Appetite Suppressant Adverse effects: None No BP or HR issues : Controlled on BP meds Victoza 1.8 mg subq daily Benefits: DM - last hba1c was 5.8 (11/2024) Adverse effects: none *Completed but not refilling since she has surgery coming up Dietary changes: Continues to avoid snacking Breakfast: Eggs Lunch: Lean Cuisine Dinner: Healthier choices at work Water: About 4 bottles per day Barriers: Continues to have vertigo which affects aerobic physical activity Physical Activity: Barbell weights - (About 3x/week - 30 minutes). No change Stress: Stable Sleep: No change - Sleeping about 8-9 hours. No past medical history on file. Current Outpatient Medications Medication Sig Dispense Refill ALPRAZolam (XANAX) 0.25 mg tablet Take 0.25 mg by mouth at bedtime as needed. Meloxicam 7.5 mg/5 mL susp Take by mouth. levothyroxine 75 mcg cap Take 75 mcg by mouth daily before breakfast. meclizine (ANTIVERT) 25 mg tab Take 25 mg by mouth three times a day. amLODIPine (NORVASC) 2.5 mg tablet Take by mouth once daily. ondansetron HCl (ZOFRAN ORAL) Take by mouth as needed. insulin glargine,hum.rec.anlog (TOUJEO MAX U-300 SOLOSTAR SUBCUTANEOUS) Inject subcutaneously. tolterodine (DETROL) 2 mg tablet Take 2 mg by mouth two times a day. mirabegron (MYRBETRIQ) 25 mg Tb24 Take by mouth. rosuvastatin (CRESTOR) 20 mg tablet Take 20 mg by mouth once daily. sertraline (ZOLOFT) 50 mg tablet Take 50 mg by mouth once daily. ergocalciferol 50,000 unit capsule (VITAMIN D2, DRISDOL) Take 50,000 Units by mouth one time a week. No current facility-administered medications for this visit. Physical exam:BP 110/80 Pulse 70 Ht 160 cm (5' 3 ) Wt 130.2 kg (287 lb) LMP 03/24/2024 (Approximate) BMI 50.84 kg/m? VIDEO EXAM: (if done, performed via video enabled technology) NAD, physical assessment not performed. Results: recent labs reviewed with the patient. No results found for: GLUC , K , NA , CHLOR , CO2 , CREAT , BUN , ANION , CA , TPROT , ALB , TBILI , ALKPHOS , AST , ALT No results found for: WBC , RBC , HB , HCT , MCV , MCH , MCHC , RDWCV , PLT , MPV No results found for: CHOL , HDL , LDL , TG HBA1C No results found for: HBA1C Computed FIB-4 Calculation unavailable. One or more value (more content not included)...[facility]03-05-2025 History of Present illness Narrative* Miguel Ángel Hopson APRN.TAN ROOM SUPERVISOR - 12/31/2024 9:49 AM EST BMI Obesity Medicine Follow-Up Note- Distance Health Visit December 31, 2024 This Team Access Model visit is a virtual encounter. It required patient- provider interaction for the medical decision making as documented below. I have communicated my name and active licensure. The patient's identity and physical location were verified at the time of this visit. Either the patient or their legal unit support representative has been informed of the risks and benefits of -- and alternatives to -- treatment through a remote evaluation and consents to proceed with the evaluation remotely. Patient Summary: is a 44 year old female who presents for follow-up evaluation of her obesity and related complications to the [facility] [place]. Initial program weight: 311 lb (June 2024) Recent Weight history: Last Wt 12/31/24 : 130.2 kg (287 lb) 11/07/24 : 130.6 kg (288 lb) 10/08/24 : (!) 137 kg (302 lb) 09/03/24 : (!) 139.3 kg (307 lb) Assessement/plan from last visit: 1. Class 3 severe obesity due to excess calories with serious comorbidity and body mass index (BMI)of 50.0 to 59.9 in adult (HCC) - ICD9: 278.01, V85.43, ICD10: E66.813, Z68.43, E66.01 (primary diagnosis) -Weight decreasing, TBW loss: 7.40% -Continue to increase physical activity with goal of 200 min/week (discussed adding in aerobic training) - LIRAGLUTIDE 0.6 MG/0.1 ML (18 MG/3 ML) SUBCUTANEOUS PEN INJECTOR -Continue Phentermine 37.5 mg daily as prescribed by PCP -Follow up in 4 weeks 2. Type 2 diabetes mellitus with chronic kidney disease, with long-term current use of insulin, unspecified CKD stage (HCC) - ICD9: 250.40, 585.9, V58.67, ICD10: E11.22, Z79.4 -Last hba1c was 5.8 (08/25/2024) - LIRAGLUTIDE 0.6 MG/0.1 ML (18 MG/3 ML) SUBCUTANEOUS PEN INJECTOR -Continue with lifestyle changes -Will redraw before surgery with [facility] labs 3. Dietary counseling and surveillance - ICD9: V65.3, ICD10: Z71.3 -Continue to eat a high protein, low calorie, low carb eating plan -Continue with increase water intake with goal of 64 ounces per day -Continue with decreased snacking 4. Hypertension, unspecified type - ICD9: 401.9, ICD10: I10 -Controlled -Continue home medications Interval History: PT specifies the following items as new or significant updates since the last appointment: Last visit was with me in October. Reports weight is stable since last visit. Anti-obesity medications: Phentermine 37.5 mg daily Benefit: Appetite Suppressant Adverse effects: None No BP or HR issues : Controlled on BP meds Victoza 1.8 mg subq daily Benefits: DM - last hba1c was 5.8 (11/2024) Adverse effects: none *Completed but not refilling since she has surgery coming up Dietary changes: Continues to avoid snacking Breakfast: Eggs Lunch: Lean Cuisine Dinner: Healthier choices at work Water: About 4 bottles per day Barriers: Continues to have vertigo which affects aerobic physical activity Physical Activity: Barbell weights - (About 3x/week - 30 minutes). No change Stress: Stable Sleep: No change - Sleeping about 8-9 hours. No past medical history on file. Current Outpatient Medications Medication Sig Dispense Refill ALPRAZolam (XANAX) 0.25 mg tablet Take 0.25 mg by mouth at bedtime as needed. Meloxicam 7.5 mg/5 mL susp Take by mouth. levothyroxine 75 mcg cap Take 75 mcg by mouth daily before breakfast. meclizine (ANTIVERT) 25 mg tab Take 25 mg by mouth three times a day. amLODIPine (NORVASC) 2.5 mg tablet Take by mouth once daily. ondansetron HCl (ZOFRAN ORAL) Take by mouth as needed. insulin glargine,hum.rec.anlog (TOUJEO MAX U-300 SOLOSTAR SUBCUTANEOUS) Inject subcutaneously. tolterodine (DETROL) 2 mg tablet Take 2 mg by mouth two times a day. mirabegron (MYRBETRIQ) 25 mg Tb24 Take by mouth. rosuvastatin (CRESTOR) 20 mg tablet Take 20 mg by mouth once daily. sertraline (ZOLOFT) 50 mg tablet Take 50 mg by mouth once daily. ergocalciferol 50,000 unit capsule (VITAMIN D2, DRISDOL) Take 50,000 Units by mouth one time a week. No current facility-administered medications for this visit. Physical exam:BP 110/80 Pulse 70 Ht 160 cm (5' 3 ) Wt 130.2 kg (287 lb) LMP 03/24/2024 (Approximate) BMI 50.84 kg/m VIDEO EXAM: (if done, performed via video enabled technology) NAD, physical assessment not performed. Results: recent labs reviewed with the patient. No results found for: GLUC , K , NA , CHLOR , CO2 , CREAT , BUN , ANION , CA , TPROT , ALB , TBILI , ALKPHOS , AST , ALT No results found for: WBC , RBC , HB , HCT , MCV , MCH , MCHC , RDWCV , PLT , MPV No results found for: CHOL , HDL , LDL , TG HBA1C No results found for: HBA1C Computed FIB-4 Calculation unavailable. One or more values for this score either were not found within the given timeframe or did not fit some other criterion. ACTIVE PROBLEM LIST Class 3 Severe Obesity Due to Excess Calories With Serious Comorbidity and Body Mass Index (Bmi) of50.0 to 59.9 in Adult ([facility]) Snoring Assessment/Plan: 1. Class 3 severe obesity due to excess calories with serious comorbidity and body mass index (BMI)of 50.0 to 59.9 in adult ([facility]) - ICD9: 278.01, V85.43, ICD10: E66.813, Z68.43, E66.01 (primary diagnosis) -Weight decreasing, TBW loss: 7.7% -Continue to increase physical activity with goal of 200 min/week -Continue Phentermine 37.5 mg daily as prescribed by PCP (stop 1 week before surgery) -Follow up after hernia surgery to discuss restarting Victoza if desired 2. Type 2 diabetes mellitus with chronic kidney disease, with long-term current use of insulin, unspecified CKD stage (HCC) - ICD9: 250.40, 585.9, V58.67, ICD10: E11.22, Z79.4 -Last hba1c was 5.8 (11/2024) -Continue with lifestyle changes -will discuss restarting Victoza once hernia repair completed 3. Dietary counseling and surveillance - ICD9: V65.3, ICD10: Z71.3 -Continue to eat a high protein, low calorie, low carb eating plan -Continue with increase water intake with goal of 64 ounces per day 4. Hypertension, unspecified type - ICD9: 401.9, ICD10: I10 -Controlled -Continue home medications I spent a total of 15 minutes on the date of the service which included preparing to see the patient, [id number] patient care, completing clinical documentation, obtaining and/or reviewing separately obtained history, performing a medically appropriate examination, counseling and educating the pat ient/family/caregiver, and ordering medications, tests, or procedures. Weight Loss Trial: Today's weight management visit (1-6): 6 Today's date: 12/31/2024 Last weight (from last visit): 288 lb Medication regimen established at last visit: Victoza 1.8 mg subq daily and Phentermine 37.5 mg daily Any changes to regimen since last visit? If yes, please describe: - Today's weight: 287 lb Medication regimen established at the end of today's visit: Phentermine 37.5 mg daily Any changes to regimen? If yes, please describe: Stopped Victoza before surgery - Insurance/coverage notes: [facility] History of Present illness Narrative* ALESSIO Parsons - 12/17/2024 2:40 PM EST Images from the original note were not included. [address] [place] [id number] SUBJECTIVE: Patient ID: Guerrero Ramos is a 44 y.o. female. Chief Complaint Patient presents with Diabetes Weight Check She is currently at 44 pound weight loss since starting phentermine 37.5 mg 1/2 tablet. Has lost 1 pound this month. She is also being monitored by [facility] weight loss monthly States her blood sugars vary, depending on what she eats. She did have on low blood sugar of in the60's since last seen. She contributes this to not eating a bedtime snack. Diabetes She presents for her follow-up diabetic visit. She has type 2 diabetes mellitus. Her disease coursehas been fluctuating. Hypoglycemia symptoms include nervousness/anxiousness. There are no diabetic associated symptoms. Pertinent negatives for diabetes include no chest pain. There are no hypoglycemic complications. Symptoms are stable. There are no diabetic complications. Risk factors for coronary artery disease include diabetes mellitus, dyslipidemia, family history and obesity. Current diabetic treatment includes intensive insulin program. She is compliant with treatment most of the time. She is following a generally healthy diet. When asked about meal planning, she reported none. She participates in exercise intermittently. Her breakfast blood glucose range is generally 140-180 mg/dl. (Dexcom) Anxiety Presents for follow-up visit. Symptoms include decreased concentration, nervous/anxious behavior and palpitations. Patient reports no chest pain or shortness of breath. Symptoms occur occasionally. The severity of symptoms is moderate. The quality of sleep is good. Nighttime awakenings: none. The following portions of the patient's history were reviewed and updated as appropriate: allergies, current medications, past family history, past medical history, past social history, past surgicalhistory and problem list. Past Surgical History: Procedure Laterality Date CHOLECYSTECTOMY COLECTOMY 10/29/2015 HEMICOLECTOMY AND PARTIAL OMENTECTOMY PER DR. MAYFIELD COLONOSCOPY 03/29/2016 in [facility] Past Medical History: Diagnosis Date Colon cancer ([facility]) 10/29/2015 STAGE II-B, PT4, N0, M0 ADENOCARCINOMA OF TRANSVERSE COLON 6.5CM AND 32 LYMPH NODES WERE NEGATIVE FOR METASTASIS Colon cancer ([facility]) 04/09/2017 Depression Disease of thyroid gland HYPOTHYROIDISM Dizziness Hernia of abdominal wall 11/09/2015 colon cancer Iron deficiency Vertigo Immunization History Administered Date(s) Administered COVID-19, mRNA, LNP-S, PF, 100mcg/0.5mL Dose 03/21/2021, 04/19/2021, 11/07/2021 REVIEW OF SYSTEMS: Review of Systems Constitutional: Negative for chills and fever. HENT: Negative. Eyes: Negative for visual disturbance. Respiratory: Negative for chest tightness and shortness of breath. Cardiovascular: Negative for chest pain and palpitations. Gastrointestinal: Negative. Endocrine: Negative. Genitourinary: Negative for menstrual problem and pelvic pain. Musculoskeletal: Negative. Skin: Negative. Allergic/Immunologic: Negative. Neurological: Negative for syncope and facial asymmetry. Hematological: Does not bruise/bleed easily. Psychiatric/Behavioral: Negative. PHYSICAL EXAMINATION: Vitals: 12/17/24 1427 BP: 110/80 BP Site: Left Arm BP Postition: Sitting Pulse: 86 Resp: 16 Temp: 36.5 C (97.7 F) TempSrc: Tympanic SpO2: 97% Weight: 132.1 kg (291 lb 3.2 oz) Height: 160 cm (5' 3 ) Patient noted to have elevated BMI and the following intervention(s) were applied: encouragement toexercise. Physical Exam Vitals and nursing note reviewed. Constitutional: General: She is not in acute distress. Appearance: She is well-developed. She is not diaphoretic. HENT: Head: Normocephalic and atraumatic. Right Ear: Tympanic membrane and external ear normal. Left Ear: Tympanic membrane and external ear normal. Nose: Nose normal. Mouth/Throat: Mouth: Mucous membranes are moist. Pharynx: No oropharyngeal exudate. Eyes: General: Right eye: No discharge. Left eye: No discharge. Conjunctiva/sclera: Conjunctivae normal. Pupils: Pupils are equal, round, and reactive to light. Neck: Thyroid: No thyromegaly. Vascular: No JVD. Cardiovascular: Rate and Rhythm: Normal rate and regular rhythm. Heart sounds: Normal heart sounds. No murmur heard. No friction rub. No gallop. Pulmonary: Effort: Pulmonary effort is normal. Breath sounds: Normal breath sounds. Abdominal: General: Bowel sounds are normal. There is no distension. Palpations: Abdomen is soft. There is no mass. Tenderness: There is no abdominal tenderness. Musculoskeletal: General: Normal range of motion. Cervical back: Normal range of motion and neck supple. Lymphadenopathy: Cervical: No cervical adenopathy. Skin: General: Skin is warm and dry. Capillary Refill: Capillary refill takes less than 2 seconds. Neurological: Mental Status: She is alert and oriented to person, place, and time. Deep Tendon Reflexes: Reflexes are normal and symmetric. Psychiatric: Mood and Affect: Mood normal. Behavior: Behavior normal. Thought Content: Thought content normal. Judgment: Judgment normal. ASSESSMENT/PLAN: Guerrero was seen today for diabetes and weight check. Diagnoses and all orders for this visit: Type 2 diabetes mellitus with hyperglycemia, with long-term current use of insulin ([facility]) - POCT Hemoglobin A1c - empagliflozin (JARDIANCE) 10 mg tablet tablet; Take 1 tablet (10 mg total) by mouth in the morning. - insulin glargine U-300 conc (TOUJEO MAX U-300 SOLOSTAR) 300 unit/mL (3 mL) insulin pen; Inject 30Units under the skin in the morning. Morbid obesity with BMI of 50.0-59.9, adult ([facility]) - phentermine (ADIPEX-P) 37.5 mg tablet; Take 1 tablet (37.5 mg total) by mouth every morning before breakfast. Acquired hypothyroidism - levothyroxine (SYNTHROID, LEVOTHROID) 88 MCG tablet; Take 1 tablet (88 mcg total) by mouth in themorning. Type 2 diabetes mellitus with stage 3 chronic kidney disease, unspecified whether roasterman insulinuse, unspecified whether stage 3a or 3b CKD ([facility]) Mild recurrent major depression ([facility]) Social anxiety disorder Mixed hyperlipidemia Overactive bladder Type 2 DM A1c 5.8%. Was 9.3% April 2024. Doing very well with blood sugars. Continue Toujeo to 30 units subcutaneous daily and Jardiance 10 mg oral daily Encourage routine home blood sugar monitoring, diet modification, and exercise regimen. Has DEXCOM Encourage yearly eye exams or as directed by eye provider Daily self skin foot exams Is taking statin. Depression With social anxiety disorder Continue sertraline 50 mg oral daily Alprazolam 0.25 mg oral daily Overactive bladder Continue mirabegron and tolterodine Vertigo Continue trazodone 200 mg oral twice daily Meclizine 25 mg oral TID PRN Mixed hyperlipidemia Continue rosuvastatin 20 mg oral daily History of CKD. Is monitored by Dr. Melgar, nephrology Acquired hypothyroidism Continue levothyroxine 88 mcg oral daily Last TSH 4.45 Body mass index is 51.58 kg/m . Patient noted to have elevated BMI and the following intervention(s) were applied: Discussed current weight today. Consider healthy food choices, portion control. Avoid sugary beverages and high concentrated sweets. Routine exercise regimen encouraged. -Has done very well with weight loss. She is currently at 44 pound weight loss since starting phentermine 37.5 mg 1/2 tablet. She wishes to continue phentermine ALL QUESTIONS ANSWERED Total time spent was 30 minutes: Preparing to see the patient (e.g., review of tests) Obtaining and/or reviewing separately obtained history Performing a medically appropriate examination and/or evaluation Counseling and educating the patient/family/caregiver Ordering medications, tests, or procedures Follow-up: One month ALESSIO Parsons 12/17/24 1632 documented in this encounterWilson [facility] History of Present illness Narrative* ALESSIO Parsons - 12/10/2024 8:17 AM EST The OARRS/MAPPS database was reviewed today and found to be appropriate. No indication of medication diversion, or non compliance. ALESSIO Parsons 12/10/24 0817 documented in this encounterWilson Memorial Hospital01-29-2025 Miscellaneous Notes* Telephone Encounter - Sindy Torres - 11/26/2024 3:52 PM EST PATIENT CALLS, SHE IS HAVING TROUBLES AT WORK WITH STANDING AND HAVING TROUBLE BREATHING. SHE WAS WONDERING IF YOU WOULD BE ABLE TO GET HER A NOTE SO SHE WOULD BE ABLE TO SIT WHILE ON THE JOB documented in this encounterMount Ascutney HospitalStrongSteam [facility] [id number] Telephone encounter Note* Telephone Encounter - Sindy Melissa - 11/26/2024 3:52 PM EST PATIENT CALLS, SHE IS HAVING TROUBLES AT WORK WITH STANDING AND HAVING TROUBLE BREATHING. SHE WAS WONDERING IF YOU WOULD BE ABLE TO GET HER A NOTE SO SHE WOULD BE ABLE TO SIT WHILE ON THE JOB [facility] [id number] History of Present illness Narrative* Lily Rosales, DEBORAH-TAN ROOM SUPERVISOR - 11/19/2024 2:40 PM EST Images from the original note were not included. [address] [facility] [id number] SUBJECTIVE: Patient ID: Guerrero Ramos is a 44 y.o. female. Chief Complaint Patient presents with Weight Check Presents for follow up visit She is currently at 43 pound weight loss since starting phentermine 37.5 mg 1/2 tablet. Has lost 5 additional pounds this month. She is also being monitored by [facility] weight loss monthly. She is planning on having hernia repair by [facility] but she has to loose 30 pounds first. She has now reached this goal. Surgery is planned for January 13. States she is still doing her barbell exercises. Unable to to much more than this, due to chronic dizziness. The following portions of the patient's history were reviewed and updated as appropriate: allergies, current medications, past family history, past medical history, past social history, past surgicalhistory and problem list. Past Surgical History: Procedure Laterality Date CHOLECYSTECTOMY COLECTOMY 10/29/2015 HEMICOLECTOMY AND PARTIAL OMENTECTOMY PER DR. MAYFIELD COLONOSCOPY 03/29/2016 in [facility] Past Medical History: Diagnosis Date Colon cancer ([facility]) 10/29/2015 STAGE II-B, PT4, N0, M0 ADENOCARCINOMA OF TRANSVERSE COLON 6.5CM AND 32 LYMPH NODES WERE NEGATIVE FOR METASTASIS Colon cancer ([facility]) 04/09/2017 Depression Disease of thyroid gland HYPOTHYROIDISM Dizziness Hernia of abdominal wall 11/09/2015 colon cancer Iron deficiency Vertigo Immunization History Administered Date(s) Administered COVID-19, mRNA, LNP-S, PF, 100mcg/0.5mL Dose 03/21/2021, 04/19/2021, 11/07/2021 REVIEW OF SYSTEMS: Review of Systems Constitutional: Negative for chills and fever. HENT: Negative. Eyes: Negative for visual disturbance. Respiratory: Negative for chest tightness and shortness of breath. Cardiovascular: Negative for chest pain and palpitations. Gastrointestinal: Negative. Endocrine: Negative. Genitourinary: Negative for menstrual problem and pelvic pain. Musculoskeletal: Negative. Skin: Negative. Allergic/Immunologic: Negative. Neurological: Negative for syncope and facial asymmetry. Hematological: Does not bruise/bleed easily. Psychiatric/Behavioral: Negative. PHYSICAL EXAMINATION: Vitals: 11/19/24 1435 BP: 110/80 BP Site: Left Arm BP Postition: Sitting Pulse: 80 Resp: 18 Temp: 36.5 C (97.7 F) TempSrc: Oral SpO2: 96% Weight: 132.5 kg (292 lb 3.2 oz) Height: 160 cm (5' 3 ) Patient noted to have elevated BMI and the following intervention(s) were applied: encouragement toexercise. Physical Exam Vitals and nursing note reviewed. Constitutional: General: She is not in acute distress. Appearance: She is well-developed. She is not diaphoretic. HENT: Head: Normocephalic and atraumatic. Right Ear: Tympanic membrane and external ear normal. Left Ear: Tympanic membrane and external ear normal. Nose: Nose normal. Mouth/Throat: Mouth: Mucous membranes are moist. Pharynx: No oropharyngeal exudate. Eyes: General: Right eye: No discharge. Left eye: No discharge. Conjunctiva/sclera: Conjunctivae normal. Pupils: Pupils are equal, round, and reactive to light. Neck: Thyroid: No thyromegaly. Vascular: No JVD. Cardiovascular: Rate and Rhythm: Normal rate and regular rhythm. Heart sounds: Normal heart sounds. No murmur heard. No friction rub. No gallop. Pulmonary: Effort: Pulmonary effort is normal. Breath sounds: Normal breath sounds. Abdominal: General: Bowel sounds are normal. There is no distension. Palpations: Abdomen is soft. There is no mass. Tenderness: There is no abdominal tenderness. Musculoskeletal: General: Normal range of motion. Cervical back: Normal range of motion and neck supple. Lymphadenopathy: Cervical: No cervical adenopathy. Skin: General: Skin is warm and dry. Capillary Refill: Capillary refill takes less than 2 seconds. Neurological: Mental Status: She is alert and oriented to person, place, and time. Deep Tendon Reflexes: Reflexes are normal and symmetric. Psychiatric: Mood and Affect: Mood normal. Behavior: Behavior normal. Thought Content: Thought content normal. Judgment: Judgment normal. ASSESSMENT/PLAN: Guerrero was seen today for weight check. Diagnoses and all orders for this visit: Morbid obesity with BMI of 50.0-59.9, adult ([facility]) Body mass index is 51.76 kg/m . Patient noted to have elevated BMI and the following intervention(s) were applied: Discussed current weight today. Consider healthy food choices, portion control. Avoid sugary beverages and high concentrated sweets. Routine exercise regimen encouraged. She is currently at 43 pound weight loss since starting phentermine 37.5 mg 1/2 tablet. Has lost 5 additional pounds this month. She is also being monitored by [facility] weight loss monthly. [facility] is prescribing Victoza for additional weight loss. She is planning on having hernia repair by [facility] but she has to loose 30 pounds first. She has now reached this goal. Surgery is planned for January 13. States she is still doing her barbell exercises. Unable to to much more than this, due to chronic dizziness. ALL QUESTIONS ANSWERED Total time spent was 25 minutes: Preparing to see the patient (e.g., review of tests) Obtaining and/or reviewing separately obtained history Performing a medically appropriate examination and/or evaluation Counseling and educating the patient/family/caregiver Ordering medications, tests, or procedures Follow-up: One month Weight loss, DM ALESSIO Parsons 11/19/24 5569 documented in this encounterWilson Memorial Hospital01-14-2025 History of Present illness Narrative* lAlen Rocha DPM - 11/11/2024 10:00 AM EST Patient: Guerrero Ramos : 1980 PCP: No primary care provider on file. SUBJECTIVE Patient presents today for follow up of capsulitis and synovitis to the left ankle synovium Currently they rate their pain on a 1-10 scale a 3 States prior treatments of steroid injection and nsaids with positive relief and has wearing ankle brace with taking NSAIDs. States pain is aggrevated with WB. Patient is type 2 diabetic and states burning and tingling feet from time to time with some numbness with recent hospitalization for sugars over 400 mg/dL Patient also presents today with history of venous stasis and presents today for follow-up Patient presents today with a CC of elongated, thick nails. Pt states nails have been elongated and thick for many years and cause pain with ambulation in shoegear. Pt has tried previous treatment with minimal relief. Pt presents today for nail care and treatment. Patient is DM2 Patient also has pain to the outer aspect of her left foot that is painful with ambulation rates upto an 8/10 denies any trauma and states she is taking anti- inflammatories with minimal improvement hurts with 1st steps in the morning Allergies: Allergies Allergen Reactions Penicillin G Rash Penicillins Hives and Rash Past Medical History: Past Medical History: Diagnosis Date Anemia Anxiety Chronic kidney disease Colon cancer (CMS/HCC) 11/18/15 Depression (CMS/HCC) Diabetes mellitus (CMS/HCC) Disease of thyroid gland (CMS/HCC) Family history of cancer History of transfusion Hypercholesteremia (CMS/HCC) Intussusception of colon (CMS/HCC) R/P mass Mucinous adenocarcinoma of colon (HCC) (CMS/HCC) [address] [facility] gen surg [facility] Polycystic disease, ovaries Ventral hernia 12/22/2021 ileus Vertigo Vitamin D deficiency Medications: Current Outpatient Medications: ALPRAZolam (Xanax) 0.5 MG tablet, TAKE 1 TABLET BY MOUTH TWICE DAILY (MORNING AND BEFORE BEDTIME), Disp: 60 tablet, Rfl: 3 amLODIPine (Norvasc) 2.5 MG tablet, Daily, Disp: , Rfl: Continuous Blood Gluc Epic Prelude Analyst (Dexcom G7 Epic Prelude Analyst) device, USE DIRECTED, Disp: , Rfl: Continuous Blood Gluc Sensor (Dexcom G7 Sensor) mis, APPLY 1 SENSOR EVERY 10 DAYS DIRECTED, Disp: , Rfl: empagliflozin (Jardiance) 25 MG, Take by mouth, Disp: , Rfl: ergocalciferol (Vitamin D2) 1.25 MG (59526 UT) capsule, TAKE 1 CAPSULE BY MOUTH ONCE A WEEK EVERY SUNDAY, Disp: 12 capsule, Rfl: 3 insulin glargine (Toujeo Max Solostar, 2 unit dial,) 300 UNIT/ML injection, Inject 18 Units under the skin at bedtime, Disp: 3 mL, Rfl: 3 levothyroxine (Synthroid, Levoxyl) 75 MCG tablet, Take 75 mcg by mouth in the morning., Disp: , Rfl: meclizine (Antivert) 25 MG tablet, TAKE 1 TABLET BY MOUTH 4 TIMES DAILY NEEDED, Disp: 120 tablet, Rfl: 0 meloxicam (Mobic) 15 MG tablet, Take 0.5 tablets (7.5 mg) by mouth in the morning. (Patient not taking: Reported on 10/03/2024), Disp: 45 tablet, Rfl: 3 mirabegron ER (Myrbetriq) 25 MG 24 hr tablet, Take 1 tablet (25 mg) by mouth at bedtime Do not crush, chew, or split., Disp: 30 tablet, Rfl: 11 Mounjaro 2.5 MG/0.5ML solution pen-injector, Inject 2.5 mg under the skin once a week (Patient not taking: Reported on 10/03/2024), Disp: , Rfl: ondansetron ODT (Zofran-ODT) 4 MG disintegrating tablet, , Disp: , Rfl: ReliOn Pen [place] 31G X 6 MM [facility] [place], USE 1 PEN ONCE DAILY IN THE MORNING, Disp: , Rfl: rosuvastatin (Crestor) 20 MG tablet, Take 1 tablet by mouth once daily, Disp: 100 tablet, Rfl: 4 sertraline (Zoloft) 50 MG tablet, Take 1 tablet (50 mg) by mouth in the morning., Disp: 90 tablet, Rfl: 3 tiZANidine (Zanaflex) 4 MG tablet, Take 1 tablet (4 mg) by mouth as needed at bedtime for muscle spasms., Disp: 30 tablet, Rfl: 2 tolterodine (Detrol) 2 MG tablet, Take 1 tablet by mouth twice daily, Disp: 60 tablet, Rfl: 0 traMADol (Ultram) 50 MG tablet, Take 50 mg by mouth every 8 (eight) hours if needed. (Patient not taking: Reported on 10/03/2024), Disp: , Rfl: traZODone (Desyrel) 100 MG tablet, TAKE 2 TABLETS BY MOUTH IN THE MORNING AND 2 AT BEDTIME, Disp: 120 tablet, Rfl: 5 Social History: Social History Socioeconomic History Marital status: Legally Spouse name: Not on file Number of children: Not on file Years of education: Not on file Highest education level: Not on file Occupational History Not on file Tobacco Use Smoking status: Never Smokeless tobacco: Never Vaping Use Vaping status: Unknown Substance and Sexual Activity Alcohol use: Never Comment: Caffeine intake: >4 cups per day soda, chocolate Drug use: Never Sexual activity: Not Currently Partners: Decline to Answer control/protection: Surgical Other Topics Concern Not on file Social History Narrative Not on file Social Drivers of Health Financial Resource Strain: Medium Risk (07/03/2023) Overall Financial Resource Strain (CARDIA) Difficulty of Paying Living Expenses: Somewhat hard Food Insecurity: No Food Insecurity (11/06/2024) Received from [facility] Hunger Screening Within the past 12 months we worried whether our food would run out before we got money to buy more.: Never True Within the past 12 months the food we bought just didn't last and we didn't have money to get more.: Never True Transportation Needs: No Transportation Needs (07/03/2023) PRAPARE - Transportation Lack of Transportation (Medical): No Lack of Transportation (Non-Medical): No Physical Activity: Inactive (07/03/2023) Exercise Vital Sign Days of Exercise per Week: 0 days Minutes of Exercise per Session: 0 min Stress: No Stress Concern Present (07/03/2023) [employer] [place] [employer] - Occupational Stress Questionnaire Feeling of Stress : Not at all Social Connections: Socially Isolated (07/03/2023) Social Connection and Isolation Panel [NHANES] Frequency of Communication with Friends and Family: Three times a week Frequency of Social Gatherings with Friends and Family: Never Attends Quaker Services: Never Active Member of Clubs or Organizations: No Attends Club or Organization Meetings: Never Marital Status: Intimate Partner Violence: Not At Risk (07/03/2023) Humiliation, Afraid, Rape, and Kick questionnaire Fear of Current or Ex-Partner: No Emotionally Abused: No Physically Abused: No Sexually Abused: No Housing Stability: Unknown (07/03/2023) Housing Stability Vital Sign Unable to Pay for Housing in the Last Year: Patient refused Number of Places Lived in the Last Year: Not on file Unstable Housing in the Last Year: Patient refused ROS: GI: denies abdominal pain or ulcerations with anti-inflammatory medication OBJECTIVE LE EXAM: DERM: Elongated thick yellow crumbly nails digits 1 through 10. Diminished hair growth b/l feet. Plus one pitting edema to bilateral ankles VASC: Positive palpable pedal pulses bilaterally NEURO: 5.07 [place] Blank monofilament test intact to digits and forefoot bilaterally 125Hz tuning fork diminished to 1st MPJ bilaterally ORTHO: Ankle ROM less than 10 degrees b/l. Positive palpate patient to the anterior and left lateral tibiotalar joint capsule region Positive pain on palpation to the left peroneal tendon near insertion of the 5th metatarsal base ASSESSMENT 1. Sinus tarsi syndrome, right 2. DJD (degenerative joint disease), ankle and foot, right 3. Diabetes mellitus due to underlying condition with diabetic polyneuropathy, unspecified whether roasterman insulin use ([facility]) 4. Pain due to onychomycosis of toenails of both feet 5. Ankle instability, right 6. Peroneal tendinitis, left 7. Contracture of left ankle PLAN Patient to continue with oral anti - inflammatories as needed for pain and recommended OTC medications such as tylenol or Ibuprofen Discussed proper foot care with patient today. Debride nails in length and thickness digits 1 through 10 Patient educated today on proper diabetic foot care including monitoring feet daily for any signs of infection openings in the skin or irregularities to both feet. Patient had a diabetic neurologicalexam today to both their feet and discussed proper shoe gear. Patient placed on Medrol pack today Pt dispensed pneumatic CAM walker ([id number]) today to maintain 90 degree foot to ankle position. Pt informed to only remove walker when at rest or bathing. ABN signed and in chart for device if warranted. The boot was assembled and adjusted liner and straps and pneumatically inflated for proper customfitting by Allen Rocha DPM and staff. A verbal order was given for dispensing of device. The patient is ambulatory and may benefit functionally from this device. It may be used for the following conditions as noted per medical diagnosis. Allen Rocha DPM documented in this encounterCarondelet [id number] NoteHNO ID: [id number] Author: MIGUEL ÁNGEL HOPSON APRN.TAN ROOM SUPERVISOR Service: ? Author Type: Nurse Practitioner Type: Progress Notes Filed: 11/07/2024 12:42 Note Text: BMI Obesity Medicine Follow-Up Note- Distance Health Visit November 07, 2024 This Team Access Model visit is a virtual encounter. It required patient-provider interaction for the medical decision making as documented below. I have communicated my name and active licensure. The patient's identity and physical location were verified at the time of this visit. Either the patient or their legal unit support representative has been informed of the risks and benefits of -- and alternatives to -- treatment through a remote evaluation and consents to proceed with the evaluation remotely. Patient Summary: is a 44 year old female who presents for follow-up evaluation of her obesity and related complications to the [facility] [place]. Initial program weight: 311 lb (June 2024) Recent Weight history: Last Wt 10/08/24 : (!) 137 kg (302 lb) 09/03/24 : (!) 139.3 kg (307 lb) 07/30/24 : (!) 139.7 kg (308 lb) 07/07/24 : (!) 141.1 kg (311 lb) Assessement/plan from last visit: 1. Class 3 severe obesity due to excess calories with serious comorbidity and body mass index (BMI) of 50.0 to 59.9 in adult (HCC) - ICD9: 278.01, V85.43, ICD10: E66.813, Z68.43, E66.01 (primary diagnosis) -Weight decreasing, lost 1 pounds -Continue to increase physical activity with goal of 200 min/week (discussed adding in aerobic training) - LIRAGLUTIDE 0.6 MG/0.1 ML (18 MG/3 ML) SUBCUTANEOUS PEN INJECTOR -Continue Phentermine 37.5 mg daily as prescribed by PCP -Follow up in 4 weeks 2. Type 2 diabetes mellitus with chronic kidney disease, with long-term current use of insulin, unspecified CKD stage (HCC) - ICD9: 250.40, 585.9, V58.67, ICD10: E11.22, Z79.4 -Last hba1c was 5.8 (08/25/2024) - LIRAGLUTIDE 0.6 MG/0.1 ML (18 MG/3 ML) SUBCUTANEOUS PEN INJECTOR -Continue with lifestyle changes 3. Dietary counseling and surveillance - ICD9: V65.3, ICD10: Z71.3 -Continue to eat a high protein, low calorie, low carb eating plan -Discussed increasing her protein as she is only eating one meal with protein (idea of eggs and romanian yogurt in AM instead of Special K cereal) -Discussed decreasing 0 sugar pop intake and replacing with water intake 4. Hypertension, unspecified type - ICD9: 401.9, ICD10: I10 -Controlled -Continue home medications Interval History: PT specifies the following items as new or significant updates since the last appointment: Last visit was with me in September. Reports weight is decreased since last visit. Clothes are baggier. Anti-obesity medications: Phentermine 37.5 mg daily Benefit: Appetite Suppressant Adverse effects: None No BP or HR issues Victoza 1.8 mg subq daily Benefits: DM, not eating a lot. Adverse effects: none *No refill needed Dietary changes: Avoided snacks Couple bottles of water per day Breakfast: Eggs Lunch: Chicken breast, fruit Dinner: Random (what she can find at work but typically healthier choices) Barriers: Vertigo related to aerobic physical activity Physical Activity: Barbell weights - (About 3x/week - 30 minutes). No change since last visit Stress: Stable. Sleep: No changes. Sleeping about 8-9 hours. No past medical history on file. Current Outpatient Medications Medication Sig Dispense Refill liraglutide (VICTOZA) 0.6 mg/ 0.1 ml subcutaneous pen injector Inject 1.8 mg subcutaneously once daily. 9 mL 2 ALPRAZolam (XANAX) 0.25 mg tablet Take 0.25 mg by mouth at bedtime as needed. Meloxicam 7.5 mg/5 mL susp Take by mouth. levothyroxine 75 mcg cap Take 75 mcg by mouth daily before breakfast. meclizine (ANTIVERT) 25 mg tab Take 25 mg by mouth three times a day. amLODIPine (NORVASC) 2.5 mg tablet Take by mouth once daily. ondansetron HCl (ZOFRAN ORAL) Take by mouth as needed. insulin glargine,hum.rec.anlog (TOUJEO MAX U-300 SOLOSTAR SUBCUTANEOUS) Inject subcutaneously. tolterodine (DETROL) 2 mg tablet Take 2 mg by mouth two times a day. mirabegron (MYRBETRIQ) 25 mg Tb24 Take by mouth. rosuvastatin (CRESTOR) 20 mg tablet Take 20 mg by mouth once daily. sertraline (ZOLOFT) 50 mg tablet Take 50 mg by mouth once daily. ergocalciferol 50,000 unit capsule (VITAMIN D2, DRISDOL) Take 50,000 Units by mouth one time a week. No current facility-administered medications for this visit. Physical exam:[facility] 03/24/2024 (Approximate) VIDEO EXAM: (if done, performed via video enabled technology) NAD, physical assessment not performed. Results: recent labs reviewed with the patient. No results found for: GLUC , K , NA , CHLOR , CO2 , CREAT , BUN , ANION , CA , TPROT , ALB , TBILI , ALKPHOS , AST , ALT No results found for: WBC , RBC , HB , HCT , MCV , MCH , MCHC , RDWCV , PLT , MPV No results found for: CHOL , HDL , LDL , TG HBA (more content not included)...[facility]01-10-2025 History of Present illness Narrative* Miguel Ángel Hopson APRN.TAN ROOM SUPERVISOR - 11/07/2024 11:35 AM EST BMI Obesity Medicine Follow-Up Note- Distance Health Visit November 07, 2024 This Team Access Model visit is a virtual encounter. It required patient- provider interaction for the medical decision making as documented below. I have communicated my name and active licensure. The patient's identity and physical location were verified at the time of this visit. Either the patient or their legal unit support representative has been informed of the risks and benefits of -- and alternatives to -- treatment through a remote evaluation and consents to proceed with the evaluation remotely. Patient Summary: is a 44 year old female who presents for follow-up evaluation of her obesity and related complications to the [facility] [place]. Initial program weight: 311 lb (June 2024) Recent Weight history: Last Wt 10/08/24 : (!) 137 kg (302 lb) 09/03/24 : (!) 139.3 kg (307 lb) 07/30/24 : (!) 139.7 kg (308 lb) 07/07/24 : (!) 141.1 kg (311 lb) Assessement/plan from last visit: 1. Class 3 severe obesity due to excess calories with serious comorbidity and body mass index (BMI)of 50.0 to 59.9 in adult ([facility]) - ICD9: 278.01, V85.43, ICD10: E66.813, Z68.43, E66.01 (primary diagnosis) -Weight decreasing, lost 1 pounds -Continue to increase physical activity with goal of 200 min/week (discussed adding in aerobic training) - LIRAGLUTIDE 0.6 MG/0.1 ML (18 MG/3 ML) SUBCUTANEOUS PEN INJECTOR -Continue Phentermine 37.5 mg daily as prescribed by PCP -Follow up in 4 weeks 2. Type 2 diabetes mellitus with chronic kidney disease, with long-term current use of insulin, unspecified CKD stage ([facility]) - ICD9: 250.40, 585.9, V58.67, ICD10: E11.22, Z79.4 -Last hba1c was 5.8 (08/25/2024) - LIRAGLUTIDE 0.6 MG/0.1 ML (18 MG/3 ML) SUBCUTANEOUS PEN INJECTOR -Continue with lifestyle changes 3. Dietary counseling and surveillance - ICD9: V65.3, ICD10: Z71.3 -Continue to eat a high protein, low calorie, low carb eating plan -Discussed increasing her protein as she is only eating one meal with protein (idea of eggs and romanian yogurt in AM instead of Special K cereal) -Discussed decreasing 0 sugar pop intake and replacing with water intake 4. Hypertension, unspecified type - ICD9: 401.9, ICD10: I10 -Controlled -Continue home medications Interval History: PT specifies the following items as new or significant updates since the last appointment: Last visit was with me in September. Reports weight is decreased since last visit. Clothes are baggier. Anti-obesity medications: Phentermine 37.5 mg daily Benefit: Appetite Suppressant Adverse effects: None No BP or HR issues Victoza 1.8 mg subq daily Benefits: DM, not eating a lot. Adverse effects: none *No refill needed Dietary changes: Avoided snacks Couple bottles of water per day Breakfast: Eggs Lunch: Chicken breast, fruit Dinner: Random (what she can find at work but typically healthier choices) Barriers: Vertigo related to aerobic physical activity Physical Activity: Barbell weights - (About 3x/week - 30 minutes). No change since last visit Stress: Stable. Sleep: No changes. Sleeping about 8-9 hours. No past medical history on file. Current Outpatient Medications Medication Sig Dispense Refill liraglutide (VICTOZA) 0.6 mg/ 0.1 ml subcutaneous pen injector Inject 1.8 mg subcutaneously once daily. 9 mL 2 ALPRAZolam (XANAX) 0.25 mg tablet Take 0.25 mg by mouth at bedtime as needed. Meloxicam 7.5 mg/5 mL susp Take by mouth. levothyroxine 75 mcg cap Take 75 mcg by mouth daily before breakfast. meclizine (ANTIVERT) 25 mg tab Take 25 mg by mouth three times a day. amLODIPine (NORVASC) 2.5 mg tablet Take by mouth once daily. ondansetron HCl (ZOFRAN ORAL) Take by mouth as needed. insulin glargine,hum.rec.anlog (TOUJEO MAX U-300 SOLOSTAR SUBCUTANEOUS) Inject subcutaneously. tolterodine (DETROL) 2 mg tablet Take 2 mg by mouth two times a day. mirabegron (MYRBETRIQ) 25 mg Tb24 Take by mouth. rosuvastatin (CRESTOR) 20 mg tablet Take 20 mg by mouth once daily. sertraline (ZOLOFT) 50 mg tablet Take 50 mg by mouth once daily. ergocalciferol 50,000 unit capsule (VITAMIN D2, DRISDOL) Take 50,000 Units by mouth one time a week. No current facility-administered medications for this visit. Physical exam:[facility] 03/24/2024 (Approximate) VIDEO EXAM: (if done, performed via video enabled technology) NAD, physical assessment not performed. Results: recent labs reviewed with the patient. No results found for: GLUC , K , NA , CHLOR , CO2 , CREAT , BUN , ANION , CA , TPROT , ALB , TBILI , ALKPHOS , AST , ALT No results found for: WBC , RBC , HB , HCT , MCV , MCH , MCHC , RDWCV , PLT , MPV No results found for: CHOL , HDL , LDL , TG HBA1C No results found for: HBA1C Computed FIB-4 Calculation unavailable. One or more values for this score either were not found within the given timeframe or did not fit some other criterion. ACTIVE PROBLEM LIST Class 3 Severe Obesity Due to Excess Calories With Serious Comorbidity and Body Mass Index (Bmi) of50.0 to 59.9 in Adult ([facility]) Snoring Assessment/Plan: 1. Class 3 severe obesity due to excess calories with serious comorbidity and body mass index (BMI)of 50.0 to 59.9 in adult ([facility]) - ICD9: 278.01, V85.43, ICD10: E66.813, Z68.43, E66.01 (primary diagnosis) -Weight decreasing, TBW loss: 7.40% -Continue to increase physical activity with goal of 200 min/week (discussed adding in aerobic training) - LIRAGLUTIDE 0.6 MG/0.1 ML (18 MG/3 ML) SUBCUTANEOUS PEN INJECTOR -Continue Phentermine 37.5 mg daily as prescribed by PCP -Follow up in 4 weeks 2. Type 2 diabetes mellitus with chronic kidney disease, with long-term current use of insulin, unspecified CKD stage ([facility]) - ICD9: 250.40, 585.9, V58.67, ICD10: E11.22, Z79.4 -Last hba1c was 5.8 (08/25/2024) - LIRAGLUTIDE 0.6 MG/0.1 ML (18 MG/3 ML) SUBCUTANEOUS PEN INJECTOR -Continue with lifestyle changes -Will redraw before surgery with [facility] labs 3. Dietary counseling and surveillance - ICD9: V65.3, ICD10: Z71.3 -Continue to eat a high protein, low calorie, low carb eating plan -Continue with increase water intake with goal of 64 ounces per day -Continue with decreased snacking 4. Hypertension, unspecified type - ICD9: 401.9, ICD10: I10 -Controlled -Continue home medications I spent a total of 10 minutes on the date of the service which included preparing to see the patient, [id number] patient care, completing clinical documentation, obtaining and/or reviewing separately obtained history, performing a medically appropriate examination, counseling and educating the pat ient/family/caregiver, and ordering medications, tests, or procedures. Weight Loss Trial: Today's weight management visit (1-6): 5 Today's date: 11/07/2023 Last weight (from last visit): 302 lb Medication regimen established at last visit: Victoza 1.8 mg subq daily and Phentermine 37.5 mg daily Any changes to regimen since last visit? If yes, please describe: - Today's weight: 288 lb Medication regimen established at the end of today's visit: Victoza 1.8 mg subq daily and Phentermine 37.5 mg daily Any changes to regimen? If yes, please describe: - Insurance/coverage notes: [facility] Miscellaneous Notes* Telephone Encounter - Sindy Torres - 11/03/2024 3:39 PM EST Patient is vals, she called wanting time off work for mental health, she was crying on the phone saying that she can't do this anymore can we get her in or what should I do * Telephone Encounter - Abdiaziz Girard DO - 11/03/2024 3:39 PM EST See if Kailyn can do a telehealth appointment with her from home * Telephone Encounter - Sindy Torres - 11/03/2024 3:39 PM EST She's not answering messages * Telephone Encounter - Lily Rosales APRN-ROBI - 11/03/2024 3:39 PM EST I spoke with patient. She is having difficulties with work, employer, and her dizziness. She would like to start FMLA. I informed her she will need the information sent to the office for us to complete for her. * Telephone Encounter - Sindy Torres - 11/03/2024 3:39 PM EST Will start FMLA as soon as I get it, she comes in 11/19 to see you as well [facility] Tele[facility] encounter Note* Telephone Encounter - Sindy Torres - 11/03/2024 3:39 PM EST Patient is tito, she called wanting time off work for mental health, she was crying on the phone saying that she can't do this anymore can we get her in or what should I do [facility]01-06-2025 Telephone encounter Note* Telephone Encounter - Abdiaziz Girard DO - 11/03/2024 3:39 PM EST See if Kailyn can do a telehealth appointment with her from home [facility]01-06-2025 Telephone encounter Note* Telephone Encounter - Sindy Torres - 11/03/2024 3:39 PM EST She's not answering messages [facility]01-06-2025 Telephone encounter Note* Telephone Encounter - ALESSIO Parsons - 11/03/2024 3:39 PM EST I spoke with patient. She is having difficulties with work, employer, and her dizziness. She would like to start FMLA. I informed her she will need the information sent to the office for us to complete for her. [employer]01-06-2025 Telephone encounter Note* Telephone Encounter - Sindy Torres - 11/03/2024 3:39 PM EST Will start FMLA as soon as I get it, she comes in 11/19 to see you as well [employer]12-11-2024 NoteHNO ID: [id number] Author: MIGUEL ÁNGEL GARZA APRN.ROBI Service: ? Author Type: Nurse Practitioner Type: Progress Notes Filed: 10/08/2024 13:20 Note Text: BMI Obesity Medicine Follow-Up Note- Distance Health Visit October 08, 2024 This Team Access Model visit is a virtual encounter. It required patient-provider interaction for the medical decision making as documented below. I have communicated my name and active licensure. The patient's identity and physical location were verified at the time of this visit. Either the patient or their legal unit support representative has been informed of the risks and benefits of -- and alternatives to -- treatment through a remote evaluation and consents to proceed with the evaluation remotely. Patient Summary: is a 44 year old female who presents for follow-up evaluation of her obesity and related complications to the [facility] [place]. Initial program weight: 311 lb lb (June 2024) Recent Weight history: Last Wt 09/03/24 : (!) 139.3 kg (307 lb) 07/30/24 : (!) 139.7 kg (308 lb) 07/07/24 : (!) 141.1 kg (311 lb) 07/07/24 : (!) 141.1 kg (311 lb) Assessement/plan from last visit: 1. Class 3 severe obesity due to excess calories with serious comorbidity and body mass index (BMI) of 50.0 to 59.9 in adult (HCC) - ICD9: 278.01, V85.43, ICD10: E66.813, Z68.43, E66.01 (primary diagnosis) -Weight decreasing, lost 1 pounds -Continue to increase physical activity with goal of 200 min/week (discussed adding in aerobic training) - LIRAGLUTIDE 0.6 MG/0.1 ML (18 MG/3 ML) SUBCUTANEOUS PEN INJECTOR -Continue Phentermine 37.5 mg daily as prescribed by PCP -Follow up in 4 weeks 2. Type 2 diabetes mellitus with chronic kidney disease, with long-term current use of insulin, unspecified CKD stage (HCC) - ICD9: 250.40, 585.9, V58.67, ICD10: E11.22, Z79.4 -Last hba1c was 5.8 (08/25/2024) - LIRAGLUTIDE 0.6 MG/0.1 ML (18 MG/3 ML) SUBCUTANEOUS PEN INJECTOR -Continue with lifestyle changes 3. Dietary counseling and surveillance - ICD9: V65.3, ICD10: Z71.3 -Continue to eat a high protein, low calorie, low carb eating plan -Discussed increasing her protein as she is only eating one meal with protein (idea of eggs and romanian yogurt in AM instead of Special K cereal) -Discussed decreasing 0 sugar pop intake and replacing with water intake 4. Hypertension, unspecified type - ICD9: 401.9, ICD10: I10 -Controlled -Continue home medications Interval History: PT specifies the following items as new or significant updates since the last appointment: Last visit was with me in August. Reports weight is decreased since last visit. She feels that her clothes are feeling baggier since starting this program. Anti-obesity medications: Phentermine 37.5 mg daily Benefit: Appetite Suppressant Adverse effects: None No BP or HR issues Victoza 1.8 mg subq daily Benefits: DM, not eating a lot. Adverse effects: none Dietary changes: Breakfast: Eggs Lunch and dinner varies: Choosing healthier options - protein/vegetables No significant snacking Water about 3 bottles per day Barriers: No aerobic training due vertigo Physical Activity: Barbell weights - (About 3x/week - 30 minutes) Stress: Stable. Sleep: No changes. Sleeping about 8-9 hours. No past medical history on file. Current Outpatient Medications Medication Sig Dispense Refill liraglutide (VICTOZA) 0.6 mg/ 0.1 ml subcutaneous pen injector Inject 1.8 mg subcutaneously once daily. 9 mL 2 ALPRAZolam (XANAX) 0.25 mg tablet Take 0.25 mg by mouth at bedtime as needed. Meloxicam 7.5 mg/5 mL susp Take by mouth. levothyroxine 75 mcg cap Take 75 mcg by mouth daily before breakfast. meclizine (ANTIVERT) 25 mg tab Take 25 mg by mouth three times a day. amLODIPine (NORVASC) 2.5 mg tablet Take by mouth once daily. ondansetron HCl (ZOFRAN ORAL) Take by mouth as needed. insulin glargine,hum.rec.anlog (TOUJEO MAX U-300 SOLOSTAR SUBCUTANEOUS) Inject subcutaneously. tolterodine (DETROL) 2 mg tablet Take 2 mg by mouth two times a day. mirabegron (MYRBETRIQ) 25 mg Tb24 Take by mouth. rosuvastatin (CRESTOR) 20 mg tablet Take 20 mg by mouth once daily. sertraline (ZOLOFT) 50 mg tablet Take 50 mg by mouth once daily. ergocalciferol 50,000 unit capsule (VITAMIN D2, DRISDOL) Take 50,000 Units by mouth one time a week. No current facility-administered medications for this visit. Physical exam:[facility] 03/24/2024 (Approximate) VIDEO EXAM: (if done, performed via video enabled technology) NAD, physical assessment not performed. Results: recent labs reviewed with the patient. No results found for: GLUC , K , NA , CHLOR , CO2 , CREAT , BUN , ANION , CA , TPROT , ALB , TBILI , ALKPHOS , AST , ALT No results found for: WBC , RBC , HB , HCT , MCV , MCH , MCHC , RDWCV , PLT , MPV No results found for: CHOL , HDL , LDL , TG HBA1C No results found for: (more content not included)...[facility] 10-08-2024 History of Present illness Narrative* Miguel Ángel Garza APRN.TAN ROOM SUPERVISOR - 10/08/2024 12:54 PM EST BMI Obesity Medicine Follow-Up Note- Distance Health Visit October 08, 2024 This Team Access Model visit is a virtual encounter. It required patient- provider interaction for the medical decision making as documented below. I have communicated my name and active licensure. The patient's identity and physical location were verified at the time of this visit. Either the patient or their legal unit support representative has been informed of the risks and benefits of -- and alternatives to -- treatment through a remote evaluation and consents to proceed with the evaluation remotely. Patient Summary: is a 44 year old female who presents for follow-up evaluation of her obesity and related complications to the [facility] [place]. Initial program weight: 311 lb lb (June 2024) Recent Weight history: Last Wt 09/03/24 : (!) 139.3 kg (307 lb) 07/30/24 : (!) 139.7 kg (308 lb) 07/07/24 : (!) 141.1 kg (311 lb) 07/07/24 : (!) 141.1 kg (311 lb) Assessement/plan from last visit: 1. Class 3 severe obesity due to excess calories with serious comorbidity and body mass index (BMI)of 50.0 to 59.9 in adult ([facility]) - ICD9: 278.01, V85.43, ICD10: E66.813, Z68.43, E66.01 (primary diagnosis) -Weight decreasing, lost 1 pounds -Continue to increase physical activity with goal of 200 min/week (discussed adding in aerobic training) - LIRAGLUTIDE 0.6 MG/0.1 ML (18 MG/3 ML) SUBCUTANEOUS PEN INJECTOR -Continue Phentermine 37.5 mg daily as prescribed by PCP -Follow up in 4 weeks 2. Type 2 diabetes mellitus with chronic kidney disease, with long-term current use of insulin, unspecified CKD stage ([facility]) - ICD9: 250.40, 585.9, V58.67, ICD10: E11.22, Z79.4 -Last hba1c was 5.8 (08/25/2024) - LIRAGLUTIDE 0.6 MG/0.1 ML (18 MG/3 ML) SUBCUTANEOUS PEN INJECTOR -Continue with lifestyle changes 3. Dietary counseling and surveillance - ICD9: V65.3, ICD10: Z71.3 -Continue to eat a high protein, low calorie, low carb eating plan -Discussed increasing her protein as she is only eating one meal with protein (idea of eggs and romanian yogurt in AM instead of Special K cereal) -Discussed decreasing 0 sugar pop intake and replacing with water intake 4. Hypertension, unspecified type - ICD9: 401.9, ICD10: I10 -Controlled -Continue home medications Interval History: PT specifies the following items as new or significant updates since the last appointment: Last visit was with me in August. Reports weight is decreased since last visit. She feels that her clothes are feeling baggier since starting this program. Anti-obesity medications: Phentermine 37.5 mg daily Benefit: Appetite Suppressant Adverse effects: None No BP or HR issues Victoza 1.8 mg subq daily Benefits: DM, not eating a lot. Adverse effects: none Dietary changes: Breakfast: Eggs Lunch and dinner varies: Choosing healthier options - protein/vegetables No significant snacking Water about 3 bottles per day Barriers: No aerobic training due vertigo Physical Activity: Barbell weights - (About 3x/week - 30 minutes) Stress: Stable. Sleep: No changes. Sleeping about 8-9 hours. No past medical history on file. Current Outpatient Medications Medication Sig Dispense Refill liraglutide (VICTOZA) 0.6 mg/ 0.1 ml subcutaneous pen injector Inject 1.8 mg subcutaneously once daily. 9 mL 2 ALPRAZolam (XANAX) 0.25 mg tablet Take 0.25 mg by mouth at bedtime as needed. Meloxicam 7.5 mg/5 mL susp Take by mouth. levothyroxine 75 mcg cap Take 75 mcg by mouth daily before breakfast. meclizine (ANTIVERT) 25 mg tab Take 25 mg by mouth three times a day. amLODIPine (NORVASC) 2.5 mg tablet Take by mouth once daily. ondansetron HCl (ZOFRAN ORAL) Take by mouth as needed. insulin glargine,hum.rec.anlog (TOUJEO MAX U-300 SOLOSTAR SUBCUTANEOUS) Inject subcutaneously. tolterodine (DETROL) 2 mg tablet Take 2 mg by mouth two times a day. mirabegron (MYRBETRIQ) 25 mg Tb24 Take by mouth. rosuvastatin (CRESTOR) 20 mg tablet Take 20 mg by mouth once daily. sertraline (ZOLOFT) 50 mg tablet Take 50 mg by mouth once daily. ergocalciferol 50,000 unit capsule (VITAMIN D2, DRISDOL) Take 50,000 Units by mouth one time a week. No current facility-administered medications for this visit. Physical exam:[facility] 03/24/2024 (Approximate) VIDEO EXAM: (if done, performed via video enabled technology) NAD, physical assessment not performed. Results: recent labs reviewed with the patient. No results found for: GLUC , K , NA , CHLOR , CO2 , CREAT , BUN , ANION , CA , TPROT , ALB , TBILI , ALKPHOS , AST , ALT No results found for: WBC , RBC , HB , HCT , MCV , MCH , MCHC , RDWCV , PLT , MPV No results found for: CHOL , HDL , LDL , TG HBA1C No results found for: HBA1C Computed FIB-4 Calculation unavailable. One or more values for this score either were not found within the given timeframe or did not fit some other criterion. ACTIVE PROBLEM LIST Class 3 Severe Obesity Due to Excess Calories With Serious Comorbidity and Body Mass Index (Bmi) of50.0 to 59.9 in Adult ([facility]) Snoring Assessment/Plan: 1. Class 3 severe obesity due to excess calories with serious comorbidity and body mass index (BMI)of 50.0 to 59.9 in adult ([facility]) - ICD9: 278.01, V85.43, ICD10: E66.813, Z68.43, E66.01 (primary diagnosis) -Weight decreasing, TBW loss: 2.8% -Continue to increase physical activity with goal of 200 min/week (discussed adding in aerobic training) - LIRAGLUTIDE 0.6 MG/0.1 ML (18 MG/3 ML) SUBCUTANEOUS PEN INJECTOR -Continue Phentermine 37.5 mg daily as prescribed by PCP -Follow up in 4 weeks 2. Type 2 diabetes mellitus with chronic kidney disease, with long-term current use of insulin, unspecified CKD stage ([facility]) - ICD9: 250.40, 585.9, V58.67, ICD10: E11.22, Z79.4 -Last hba1c was 5.8 (08/25/2024) - LIRAGLUTIDE 0.6 MG/0.1 ML (18 MG/3 ML) SUBCUTANEOUS PEN INJECTOR -Continue with lifestyle changes -Will redraw before surgery with [facility] labs 3. Dietary counseling and surveillance - ICD9: V65.3, ICD10: Z71.3 -Continue to eat a high protein, low calorie, low carb eating plan -Discussed decreasing her root beer intake and increasing her water intake 4. Hypertension, unspecified type - ICD9: 401.9, ICD10: I10 -Controlled -Continue home medications I spent a total of 10 minutes on the date of the service which included preparing to see the patient, [id number] patient care, completing clinical documentation, obtaining and/or reviewing separately obtained history, performing a medically appropriate examination, counseling and educating the pat ient/family/caregiver, and ordering medications, tests, or procedures. Weight Loss Trial: Today's weight management visit (1-6): 4 Today's date: 10/08/2024 Last weight (from last visit): 307 lb Medication regimen established at last visit: Victoza 1.8 mg subq daily and Phentermine 37.5 mg daily Any changes to regimen since last visit? If yes, please describe: - Today's weight: 302 lb Medication regimen established at the end of today's visit: Victoza 1.8 mg subq daily and Phentermine 37.5 mg daily Any changes to regimen? If yes, please describe: - Insurance/coverage notes[facility] History of Present illness Narrative* Rebecca Schrader DPM - 10/03/2024 9:00 AM EST Images from the original note were not included. Subjective Patient ID: Guerrero Ramos is a 44 y.o. female who presents for Foot Pain (Guerrero Ramos 44yo, NewPatient presents with her Mother. Patient is type 2 diabetic and states burning and tingling in herright foot with weightbearing. Taking Tylenol prn. Started about 2 weeks ago. Patient relates vertigo problems since a teenager.BS 112 A1C 5.8 PCP Lily Rosales 09/22/24. SS11.5.). HPI Patient presents with her mother complaining of right lateral foot pain for 2-3 weeks. She denies injury, bruising, redness. 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 She wears tennis shoes at work and is typically barefoot at home. She has tried Tylenol with minimal relief. She is a diabetic with neuropathy. She typically sees Dr. Rocha for nail care, but that he was unable to see her due to his schedule. Review of Systems Medications Current Outpatient Medications: ALPRAZolam (Xanax) 0.5 MG tablet, TAKE 1 TABLET BY MOUTH TWICE DAILY (MORNING AND BEFORE BEDTIME), Disp: 60 tablet, Rfl: 3 amLODIPine (Norvasc) 2.5 MG tablet, Daily, Disp: , Rfl: Continuous Blood Gluc Epic Prelude Analyst (Dexcom G7 Epic Prelude Analyst) device, USE DIRECTED, Disp: , Rfl: Continuous Blood Gluc Sensor (Dexcom G7 Sensor) misc, APPLY 1 SENSOR EVERY 10 DAYS DIRECTED, Disp: , Rfl: empagliflozin (Jardiance) 25 MG, Take by mouth, Disp: , Rfl: ergocalciferol (Vitamin D2) 1.25 MG (02898 UT) capsule, TAKE 1 CAPSULE BY MOUTH ONCE A WEEK EVERY SUNDAY, Disp: 12 capsule, Rfl: 3 insulin glargine (Toujeo Max Solostar, 2 unit dial,) 300 UNIT/ML injection, Inject 18 Units under the skin at bedtime, Disp: 3 mL, Rfl: 3 levothyroxine (Synthroid, Levoxyl) 75 MCG tablet, Take 75 mcg by mouth in the morning., Disp: , Rfl: meclizine (Antivert) 25 MG tablet, TAKE 1 TABLET BY MOUTH 4 TIMES DAILY NEEDED, Disp: 120 tablet, Rfl: 0 meloxicam (Mobic) 15 MG tablet, Take 0.5 tablets (7.5 mg) by mouth in the morning. (Patient not taking: Reported on 10/03/2024), Disp: 45 tablet, Rfl: 3 mirabegron ER (Myrbetriq) 25 MG 24 hr tablet, Take 1 tablet (25 mg) by mouth at bedtime Do not crush, chew, or split., Disp: 30 tablet, Rfl: 11 Mounjaro 2.5 MG/0.5ML solution pen-injector, Inject 2.5 mg under the skin once a week (Patient not taking: Reported on 10/03/2024), Disp: , Rfl: ondansetron ODT (Zofran-ODT) 4 MG disintegrating tablet, , Disp: , Rfl: ReliOn Pen [place] 31G X 6 MM [facility] [place], USE 1 PEN ONCE DAILY IN THE MORNING, Disp: , Rfl: rosuvastatin (Crestor) 20 MG tablet, Take 1 tablet by mouth once daily, Disp: 100 tablet, Rfl: 4 sertraline (Zoloft) 50 MG tablet, Take 1 tablet (50 mg) by mouth in the morning., Disp: 90 tablet, Rfl: 3 tiZANidine (Zanaflex) 4 MG tablet, Take 1 tablet (4 mg) by mouth as needed at bedtime for muscle spasms., Disp: 30 tablet, Rfl: 2 tolterodine (Detrol) 2 MG tablet, Take 1 tablet by mouth twice daily, Disp: 60 tablet, Rfl: 0 traMADol (Ultram) 50 MG tablet, Take 50 mg by mouth every 8 (eight) hours if needed. (Patient not taking: Reported on 10/03/2024), Disp: , Rfl: traZODone (Desyrel) 100 MG tablet, TAKE 2 TABLETS BY MOUTH IN THE MORNING AND 2 AT BEDTIME, Disp: 120 tablet, Rfl: 5 Allergies Penicillin g and Penicillins Past Surgical History Past Surgical History: Procedure Laterality Date CHOLECYSTECTOMY COLECTOMY 10/2015 COLON SURGERY 2016 colectomy COLONOSCOPY 04/01/2019 COLONOSCOPY 2022 GALLBLADDER SURGERY IUD INSERTION 2007 mirena IUD INSERTION essure CA LAP,CHOLECYSTECTOMY 2013 Family History Family History Problem Relation Name Age of Onset Torticollis Mother Pascale zamora Other (htn) Mother Pascale zamora Hypertension Mother Pascale zamora Cancer Father Edgard zamora Objective Physical Exam Cardiovascular: Comments: Pedal pulses: DP 2/4 bilateral, PT 2/4 bilateral. Skin temp is warm to warm. Varicosities: absent Hair growth: sparse Moderate edema noted bilateral lower extremity Pulmonary: Effort: Pulmonary effort is normal. Musculoskeletal: General: No tenderness. Right lower leg: No edema. Left lower leg: No edema. Comments: ROM: Ankle joint dorsiflexion is limited with knee extended and improves with knee flexed, AJ ROM is non painful. STJ ROM is full, but painful. MUSCLE STRENGTH: 5/5 for dorsiflexion, plantarflexion, inversion, eversion. PAIN: Right foot: There is pain at the sinus tarsi, along metatarsals 2, 3, and 5th met head. Thereis pain at the tarsometatarsal joint line, most significantly at the 2nd, 3rd, 4th metatarsals. There is also pain at the talar navicular joint and navicular cuneiform joint. There is pain with palpation at the insertion of the posterior tibial tendon of the medial navicular. No pain at the posterior tibial tendon more proximally at the medial malleolus. Feet: Comments: Last diabetic foot exam: 10/03/2024 Skin: General: Skin is warm. Capillary Refill: Capillary refill takes 2 to 3 seconds. Findings: No bruising or erythema. Comments: SKIN FINDINGS: Webspaces are clean and dry. Skin is dry, turgor is diminished. HYPERKERATOSIS: hyperkeratotic tissue noted sub met head 1 right foot NAIL PATHOLOGY: multiple nails are fungal and dystrophic. Neurological: Mental Status: She is alert and oriented to person, place, and time. Comments: Light touch sensation intact Vibratory sensation: diminished IPJ, MPJ, intact at medial malleolus. [place] Blank monofilament: Intact at 10/10 sites Psychiatric: Mood and Affect: Mood normal. Behavior: Behavior normal. XR foot 3+ views right Imaging Result: 3 views foot: AP, MO, and lateral of the right foot were taken and show no fractures or dislocations. There is Joint space narrowing with dorsal osteophyte formation noted at the 4th tarsometatarsal joint, navicular cuneiform joint, talonavicular joint. Incidental finding of accessory ossicle notedat the cuboid groove. Mild degenerative changes noted of the subtalar joint. Decrease in calcaneal pitch. Patient guarding on lateral view, not fully weight-bearing. Assessment/Plan ICD-10-CM 1. 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 Ankle instability, right M25.371 3. DJD (degenerative joint disease), ankle and foot, right M19.071 XR foot 3+ views right 4. Posterior tibial tendonitis, right M76.821 XR foot 3+ views right 5. Type II or unspecified type diabetes mellitus with neurological manifestations, not stated as uncontrolled(250.60) (CMS/[facility]) E11.49 Patient was examined and evaluated. I reviewed radiographic and clinical findings with her. I discussed the diagnosis of midfoot arthritis, sinus tarsi syndrome, metatarsalgia, posterior tibial tendonitis. Patient reports the pain started at the lateral foot. This is likely the sinus tarsi pain andthe other issues she is experiencing today are likely due to gait prolonged compensation. Stress the importance of good supportive tie shoes. Advise no flip flops, slippers nor bare feet. Explain theanatomy of the involved structures. Patient tried Powerstep orthotics and will take them; they feltcomfortable. Reviewed break in period. After explaining the benefit of stabilization and limitationof motion of the ankle and rearfoot via the ASO ankle brace, patient agreed and was fitted for the appropriate brace. Goals of therapy include prevent further injury, stabilization, reduction of stress and pressure to the ankle joint, STJ, and tendon. Anticipated time of use - at least 6 months. Atthe time of dispensing it is suitable and not substandard. Patient is able to apply the brace independently. It is comfortable to walk and fits inside the shoe. Rest, ice, elevate. Wear inserts and ASO consistently until next appointment. Patient is unable to take NSAIDs due to her kidneys and unable to take prednisone due to diabetes. She is to take Tylenol as needed for discomfort. I also discussed the use of Voltaren gel as needed. I recommended pt follow up with Dr. Rocha in 1 month for this issue, she states she would prefer to follow up here, as it is closer to her house. RTO 4 weeks This note was created with the assistance of a speech recognition program. While intending to generate a timely document that accurately reflects the content of the visit, no guarantee can be provided that every grammatical or spelling mistake has been or will be identified or corrected. Thank you for your understanding. Rebecca Schrader DPM documented in this [facility]11-19-[address] [facility] [place] [address] [place] [address] CT Scan Report Signed Patient: Guerrero Ramos MR#: [id number] : 1980 Acct:[id number] Age/Sex: 44 / F ADM Date: 4 Loc: ER Room: Type: [facility] ER Attending Dr: Copies to: Marcelle Simmons MD~ Ordering Provider: Marcelle Simmons MD Date of Service: 09/15/24 CT/CT abdomen pelvis w con: constipation, flank pain,r/o obstruction CT ABDOMEN AND PELVIS WITH CONTRAST COMPARISON: 06/12/2024 CLINICAL DATA: Flank pain and constipation. Spiral images were obtained through the abdomen and pelvis following 90 mL Isovue-300. This CT examwas performed using one or more following dose reduction techniques: Automated exposure control, adjustment of the mA and/or kV accordingto patient size, or use of iterative reconstruction technique. Limited cuts through the lung bases show no contributory findings. There is some artifact related to large body habitus and technique. The gallbladder is surgically absent. The liver, spleen and pancreas show no acute findings. There is thickening of the right and slight nodularity to the left adrenal limbs. The left kidney is atrophic. The kidneys are lobulated bi laterally. No renal stones or hydronephrosis are seen. The abdominal aorta is normal caliber. Thereare small lymph nodes. No ascites is present. There is redemonstration of a large upper abdominal ventral wall hernia containing fat, knuckle of transverse colon and nondistended small bowel loops. There is also asecond small supraumbilical ventral hernia containing only fat. The intra- abdominal small bowel loops are not distended. There is stool at the right colon. The left colon is decompressed. There is slight levoscoliotic curvature and degenerative changes at the spine. Images through the pelvis show no appendiceal inflammation. There is no dilatedsmall bowel. There is mild distal colonic stool. No diverticular disease is present. There is an additional infraumbilical, multi lobulated ventral hernia containing mostly fat though there is also a nondistended small bowel loop. There are Essure sterilization inserts. The urinary bladder is not well distended for assessment. No free fluid is seen. CT/CT abdomen pelvis w con IMPRESSION: MULTIPLE VENTRAL HERNIAS SOME OF WHICH CONTAIN NONDISTENDED BOWEL, SIMILAR TO THE PRIOR. ATROPHIC LEFT KIDNEY AND BILATERAL RENAL LOBULATION. NO OBSTRUCTIVE UROPATHY. NO ACUTE FINDINGS. Impression dictated by: Kesha Andre M.D.09/16/2024 12:10 AM Dictation Location: [place] [address] Transcribed By: [facility] 09/16/24 001 Dictated By: Kesha Andre MD 09/16/24 0004 Signed By: 09/16/24 0010 [facility] Work Phone: [phone] 430-239711-17-2024 Evaluation + Plan noteExtracted from: Title:ED Note Author:Hossein Hoyos DO Date:11/14/23 Acute bilateral back pain (M 54.9: Dorsalgia, unspecified) Acute urinary tract infection (N39.0: Urinary tract infection, site not specified) Orders: cephalexin, 500 mg = 1 cap(s), Cap, Oral, Once, Stop date 09/14/24 1:21:00 EST, STAT, Start date 09/14/24 1:21:00 EST, 09/14/24 1:21:00 EST cephalexin, 500 mg = 1 cap(s), Oral, q12hr, X 7 day(s), # 14 cap(s), Refills(s) 0, Pharmacy: [id number], 160, cm, 09/13/24 21:52:00 EST, Height/Length Dosing, 141, kg, 09/13/24 21:52:00 EST, Weight Dosing cyclobenzaprine, 10 mg = 1 tab(s), Oral, TID, PRN Muscle pain, X 5 day(s), # 15 tab(s), Refills(s) 0, Pharmacy: [id number], 160, cm, 09/13/24 21:52:00 EST, Height/Length Dosing, 141, kg, 09/13/24 21:52:00 EST, Weight Dosing ketorolac, 60 mg = 2 mL, Injection, IntraMuscular, Once, Stop date 09/13/24 22:43:00 EST, STAT, Start date 09/13/24 22:43:00 EST, 09/13/24 22:43:00 EST Sodium Chloride 0.9% intravenous solution 1,000 mL, 1,000 mL, IV, 999 mL/hr, STAT, Start date 09/13/24 23:40:00 EST, 1 hour(s), Total volume (mL): 1,000, 141 kg, 2.5, m2 Basic Metabolic Panel Beta hCG Qual CBC w/ Auto Diff CT Abdomen/Pelvis w/o Contrast eGFR UA with Cult Rflx Urine Culture Diagnostic Tests Pending * Urine Culture 09/14/24 [facility] 11-17-2024 Hospital Discharge instructions Patient Education 09/14/2024 01:23:02 Dehydration, Adult Dehydration, Adult Dehydration is a condition in which there is not enough water or other fluids in the body. This happens when a person loses more fluids than they take in. Important organs, such as the kidneys, brain, and heart, cannot function without a proper amount of fluids. Any loss of fluids from the body canlead to dehydration. Dehydration can be mild, moderate, or severe. It should be treated right away to prevent it from becoming severe. What are the causes? Dehydration may be caused by: Health conditions, such as diarrhea, vomiting, fever, infection, or sweating or urinating a lot. Not drinking enough fluids. Certain medicines, such as medicines that remove excess fluid from the body (diuretics). Lack of safe drinking water. Not being able to get enough water and food. What increases the risk? The following factors may make you more likely to develop this condition: Having a long-term (chronic) illness that has not been treated properly, such as diabetes, heart disease, or kidney disease. Being 65 years of age or older. Having a disability. Living in a place that is high in altitude, where thinner, stock drier tender air causes more fluid loss. Doing exercises that put stress on your body for a long time (endurance sports). Being active in a hot climate. What are the signs or symptoms? Symptoms of dehydration depend on how severe it is. Mild or moderate dehydration Thirst. Dry lips or dry mouth. Dizziness or light-headedness. Muscle cramps. Dark urine. Urine may be the color of tea. Less urine or tears produced than usual. Headache. Severe dehydration Changes in skin. Your skin may be cold and clammy, blotchy, or pale. Your skin also may not return to normal after being lightly pinched and released. Little or no tears, urine, or sweat. Rapid breathing and low blood pressure. Your pulse may be weak or may be faster than 100 beats per minute when you are sitting still. Other changes, such as: ?Feeling very thirsty. ?Sunken eyes. ?Cold hands and feet. ?Confusion. ?Being very tired (lethargic) or having trouble waking from sleep. ?Short-term weight loss. ?Loss of consciousness. How is this diagnosed? This condition is diagnosed based on your symptoms and a physical exam. You may have blood and urine tests to help confirm the diagnosis. How is this treated? Treatment for this condition depends on how severe it is. Treatment should be started right away. Do not wait until dehydration becomes severe. Severe dehydration is an emergency and needs to be treated in a hospital. Mild or moderate dehydration can be treated at home. You may be asked to: ?Drink more fluids. ?Drink an oral rehydration solution (ORS). This drink restores fluids, salts, and minerals in the blood (electrolytes). ?Stop any activities that caused dehydration, such as exercise. ?Cool off with cool compresses, cool mist, or cool fluids, if heat or too much sweat caused your condition. ?Take medicine to treat fever, if fever caused your condition. ?Take medicine to treat nausea and diarrhea, if vomiting or diarrhea caused your condition. Severe dehydration can be treated: ?With IV fluids. ?By correcting abnormal levels of electrolytes in your body. ?By treating the underlying cause of dehydration. Follow these instructions at home: Oral rehydration solution If told by your health care provider, drink an ORS: Make an ORS by following instructions on the package. Start by drinking small amounts, about cup (120 mL) every 5 10 minutes. Slowly increase how much you drink until you have taken the amount recommended by your health care provider. Eating and drinking Drink enough clear fluid to keep your urine pale yellow. If you were told to drink an ORS, finish the ORS first and then start slowly drinking other clear fluids. Drink fluids such as: ?Water. Do not drink only water. Doing that can lead to hyponatremia, which is having too little salt (sodium) in the body. ?Water from ice chips you suck on. ?Diluted fruit juice. This is fruit juice that you have added water to. ?Low-calorie sports drinks. Eat foods that contain a healthy balance of electrolytes, such as bananas, oranges, potatoes, tomatoes, and spinach. Do not drink alcohol. Avoid the following: ?Drinks that contain a lot of sugar. These include high-calorie sports drinks, fruit juice that is not diluted, and soda. ?Caffeine. ?Foods that are greasy or contain a lot of fat or sugar. General instructions Take ydfk-lta-bjefpyq and prescription medicines only as told by your health care provider. Do not take sodium tablets. Doing that can lead to having too much sodium in the body (hypernatremia). Return to your normal activities as told by your health care provider. Ask your health care provider what activities are safe for you. Keep all follow-up visits. Your health care provider may need to check your progress and suggest new ways to treat your condition. Contact a health care provider if: You have muscle cramps, pain, or discomfort, such as: ?Pain in your abdomen and the pain gets worse or stays in one area. ?Stiff neck. You have a rash. You are more irritable than usual. You are sleepier or have a harder time waking. You feel weak or dizzy. You feel very thirsty. Get help right away if: You have symptoms of severe dehydration. You vomit every time you eat or drink. Your vomiting gets worse, does not go away, or includes blood or green matter (bile). You are getting treatment but symptoms are getting worse. You have a fever. You have a severe headache. You have: ?Diarrhea that gets worse or does not go away. ?Blood in your stool. This may cause stool to look black and tarry. ?Not urinating, or urinating only a small amount of very dark urine, within 6 8 hours. You have trouble breathing. These symptoms may be an emergency. Get help right away. Do not wait to see if the symptoms will go away. Do not drive yourself to the hospital. Call 911. This information is not intended to replace advice given to you by your health care provider. Make sure you discuss any questions you have with your health care provider. Document Revised: 05/14/2023 Document Reviewed: 05/14/2023 [employer] Patient Education 2023 [employer]. 09/14/2024 01:23:02 Urinary Tract Infection, Adult Urinary Tract Infection, Adult A urinary tract infection (UTI) is an infection of any part of the urinary tract. The urinary tractincludes the kidneys, ureters, bladder, and urethra. These organs make, store, and get rid of urinein the body. An upper UTI affects the ureters and kidneys. A lower UTI affects the bladder and urethra. What are the causes? Most urinary tract infections are caused by bacteria in your genital area around your urethra, where urine leaves your body. These bacteria grow and cause inflammation of your urinary tract. What increases the risk? You are more likely to develop this condition if: You have a urinary catheter that stays in place. You are not able to control when you urinate or have a bowel movement (incontinence). You are female and you: ?Use a spermicide or diaphragm for control. ?Have low estrogen levels. ?Are . You have certain genes that increase your risk. You are sexually active. You take antibiotic medicines. You have a condition that causes your flow of urine to slow down, such as: ?An enlarged prostate, if you are male. ?Blockage in your urethra. ?A kidney stone. ?A nerve condition that affects your bladder control (neurogenic bladder). ?Not getting enough to drink, or not urinating often. You have certain medical conditions, such as: ?Diabetes. ?A weak disease-fighting system (immunesystem). ?Sickle cell disease. ?Gout. ?Spinal cord injury. What are the signs or symptoms? Symptoms of this condition include: Needing to urinate right away (urgency). Frequent urination. This may include small amounts of urine each time you urinate. Pain or burning with urination. Blood in the urine. Urine that smells bad or unusual. Trouble urinating. Cloudy urine. Vaginal discharge, if you are female. Pain in the abdomen or the lower back. You may also have: Vomiting or a decreased appetite. Confusion. Irritability or tiredness. A fever or chills. Diarrhea. The first symptom in older adults may be confusion. In some cases, they may not have any symptoms until the infection has worsened. How is this diagnosed? This condition is diagnosed based on your medical history and a physical exam. You may also have other tests, including: Urine tests. Blood tests. Tests for STIs (sexually transmitted infections). If you have had more than one UTI, a cystoscopy or imaging studies may be done to determine the cause of the infections. How is this treated? Treatment for this condition includes: Antibiotic medicine. Jjsq-khd-ewpsaze medicines to treat discomfort. Drinking enough water to stay hydrated. If you have frequent infections or have other conditions such as a kidney stone, you may need to see a health care provider who specializes in the urinary tract (urologist). In rare cases, urinary tract infections can cause sepsis. Sepsis is a life- threatening condition that occurs when the body responds to an infection. Sepsis is treated in the hospital with IV antibiotics, fluids, and other medicines. Follow these instructions at home: Medicines Take yjof-rzu-nqbcdjp and prescription medicines only as told by your health care provider. If you were prescribed an antibiotic medicine, take it as told by your health care provider. Do notstop using the antibiotic even if you start to feel better. General instructions Make sure you: ?Empty your bladder often and completely. Do not hold urine for long periods of time. ?Empty your bladder after sex. ?Wipe from front to back after urinating or having a bowel movement if you are female. Use each tissue only one time when you wipe. Drink enough fluid to keep your urine pale yellow. Keep all follow-up visits. This is important. Contact a health care provider if: Your symptoms do not get better after 1 2 days. Your symptoms go away and then return. Get help right away if: You have severe pain in your back or your lower abdomen. You have a fever or chills. You have nausea or vomiting. Summary A urinary tract infection (UTI) is an infection of any part of the urinary tract, which includes the kidneys, ureters, bladder, and urethra. Most urinary tract infections are caused by bacteria in your genital area. Treatment for this condition often includes antibiotic medicines. If you were prescribed an antibiotic medicine, take it as told by your health care provider. Do notstop using the antibiotic even if you start to feel better. Keep all follow-up visits. This is important. This information is not intended to replace advice given to you by your health care provider. Make sure you discuss any questions you have with your health care provider. Document Revised: 05/22/2021 Document Reviewed: 05/27/2021 [employer] Patient Education 2023 [employer]. Follow Up Care 09/13/2024 21:45:06 With:JAYESH ESCALANTE Address: [address] [place] [address] [facility] (1) When:09/17/2024 Comments:Call the office of your primary care doctor to arrange for follow-up within the above-stated timeframe. Follow-up with your primary care doctor about this ED visit. You should review your labs, imaging, and diagnoses from this ED visit with your primary care physician. There are occasionally non-emergent findings that require additional follow-up after your ED visit. If you were prescribed medications you should discuss possible side-effects and drug interactions with your pharmacist. Call 911 or go to the nearest Emergency Department if you develop any new or worsening symptoms.Seek immediate medical attention if you develop:worsening abdominal pain, new or worsening nausea, new or worsening vomiting, new or worsening diarrhea, chest pain, shortness of breath, pain with urination, problems urinating, fever, chills, weakness, or any new or worsening symptoms.Take antibiotic as prescribed. Follow-up with your doctor to discuss your ED visit. He will need repeat renal function testing wi thin the next week. [facility] 11-17-2024 Hospital Discharge instructions Additional Instructions Please return to emergency department for any new or worrisome symptoms including any vomiting, fever, worsening abdominal pain, chest pain, shortness of breath. Continue to take all of your antibiotics as they were prescribed 2 days ago even if you start feeling better. Continue MiraLAX for the next 4 days as directed. Follow-up with your family physician within the next 1 to [address] Work Phone: [phone] 955-567811-17-2024 NoteED Patient Education Note Nutrition Dehydration, Adult Dehydration is a condition in which there is not enough water or other fluids in the body. This happens when a person loses more fluids than they take in. Important organs, such as the kidneys, brain, and heart, cannot function without a proper amount of fluids. Any loss of fluids from the body canlead to dehydration. Dehydration can be mild, moderate, or severe. It should be treated right away to prevent it from becoming severe. What are the causes? Dehydration may be caused by: ??? Health conditions, such as diarrhea, vomiting, fever, infection, or sweating or urinating a lot. ??? Not drinking enough fluids. ??? Certain medicines, such as medicines that remove excess fluid from the body (diuretics). ??? Lack of safe drinking water. ??? Not being able to get enough water and food. What increases the risk? The following factors may make you more likely to develop this condition: ??? Having a long-term (chronic) illness that has not been treated properly, such as diabetes, heart disease, or kidney disease. ??? Being 65 years of age or older. ??? Having a disability. ??? Living in a place that is high in altitude, where thinner, stock drier tender air causes more fluid loss. ??? Doing exercises that put stress on your body for a long time (endurance sports). ??? Being active in a hot climate. What are the signs or symptoms? Symptoms of dehydration depend on how severe it is. Mild or moderate dehydration ??? Thirst. ??? Dry lips or dry mouth. ??? Dizziness or light-headedness. ??? Muscle cramps. ??? Dark urine. Urine may be the color of tea. ??? Less urine or tears produced than usual. ??? Headache. Severe dehydration ??? Changes in skin. Your skin may be cold and clammy, blotchy, or pale. Your skin also may not return to normal after being lightly pinched and released. ??? Little or no tears, urine, or sweat. ??? Rapid breathing and low blood pressure. Your pulse may be weak or may be faster than 100 beats per minute when you are sitting still. ??? Other changes, such as: ? Feeling very thirsty. ? Sunken eyes. ? Cold hands and feet. ? Confusion. ? Being very tired (lethargic) or having trouble waking from sleep. ? Short-term weight loss. ? Loss of consciousness. How is this diagnosed? This condition is diagnosed based on your symptoms and a physical exam. You may have blood and urine tests to help confirm the diagnosis. How is this treated? Treatment for this condition depends on how severe it is. Treatment should be started right away. Do not wait until dehydration becomes severe. Severe dehydration is an emergency and needs to be treated in a hospital. ??? Mild or moderate dehydration can be treated at home. You may be asked to: ? Drink more fluids. ? Drink an oral rehydration solution (ORS). This drink restores fluids, salts, and minerals in the blood (electrolytes). ? Stop any activities that caused dehydration, such as exercise. ? Cool off with cool compresses, cool mist, or cool fluids, if heat or too much sweat caused your condition. ? Take medicine to treat fever, if fever caused your condition. ? Take medicine to treat nausea and diarrhea, if vomiting or diarrhea caused your condition. ??? Severe dehydration can be treated: ? With IV fluids. ? By correcting abnormal levels of electrolytes in your body. ? By treating the underlying cause of dehydration. Follow these instructions at home: Oral rehydration solution If told by your health care provider, drink an ORS: ??? Make an ORS by following instructions on the package. ??? Start by drinking small amounts, about ? cup (120 mL) every 5?10 minutes. ??? Slowly increase how much you drink until you have taken the amount recommended by your health care provider. Eating and drinking ??? Drink enough clear fluid to keep your urine pale yellow. If you were told to drink an ORS, finish the ORS first and then start slowly drinking other clear fluids. Drink fluids such as: ? Water. Do not drink only water. Doing that can lead to hyponatremia, which is having too little salt (sodium) in the body. ? Water from ice chips you suck on. ? Diluted fruit juice. This is fruit juice that you have added water to. ? Low-calorie sports drinks. ??? Eat foods that contain a healthy balance of electrolytes, such as bananas, oranges, potatoes, tomatoes, and spinach. ??? Do not drink alcohol. ??? Avoid the following: ? Drinks that contain a lot of sugar. These include high-calorie sports drinks, fruit juice that isnot diluted, and soda. ? Caffeine. ? Foods that are greasy or contain a lot of fat or sugar. General instructions ??? Take jxex-qfd-ymodvjd and prescription medicines only as told by your health care provider. ??? Do not take sodium tablets. Doing that can lead t (more content not included)...[facility]11-06-2024 NoteHNO ID: [id number] Author: MIGUEL ÁNGEL GARZA APRN.ROBI Service: ? Author Type: Nurse Practitioner Type: Progress Notes Filed: 09/03/2024 11:18 Note Text: BMI Obesity Medicine Follow-Up Note- Distance Health Visit September 03, 2024 This Team Access Model visit is a virtual encounter. It required patient-provider interaction for the medical decision making as documented below. I have communicated my name and active licensure. The patient's identity and physical location were verified at the time of this visit. Either the patient or their legal unit support representative has been informed of the risks and benefits of -- and alternatives to -- treatment through a remote evaluation and consents to proceed with the evaluation remotely. Patient Summary: is a 44 year old female who presents for follow-up evaluation of her obesity and related complications to the [facility] [place]. Initial program weight: 311 lb lb (June 2024) Recent Weight history: Last Wt 07/30/24 : (!) 139.7 kg (308 lb) 07/07/24 : (!) 141.1 kg (311 lb) 07/07/24 : (!) 141.1 kg (311 lb) 05/20/24 : (!) 152.4 kg (336 lb) Assessement/plan from last visit: 1. Class 3 severe obesity due to excess calories with serious comorbidity and body mass index (BMI) of 50.0 to 59.9 in adult ([facility]) - ICD9: 278.01, V85.43, ICD10: E66.813, Z68.43, E66.01 (primary diagnosis) -Weight decreasing, lost 3 pounds -Continue to increase physical activity with goal of 200 min/week (continue weights and and in food cycling) - LIRAGLUTIDE 0.6 MG/0.1 ML (18 MG/3 ML) SUBCUTANEOUS PEN INJECTOR -Continue Phentermine 37.5 mg daily as prescribed by PCP -Follow up in 4 weeks 2. Type 2 diabetes mellitus with chronic kidney disease, with long-term current use of insulin, unspecified CKD stage ([facility]) - ICD9: 250.40, 585.9, V58.67, ICD10: E11.22, Z79.4 -Last hba1c was 7.2 (06/2024) -PCP will draw next hba1c - LIRAGLUTIDE 0.6 MG/0.1 ML (18 MG/3 ML) SUBCUTANEOUS PEN INJECTOR 3. Dietary counseling and surveillance - ICD9: V65.3, ICD10: Z71.3 -Continue to eat a high protein, low calorie, low carb eating plan -Encouraged to increase protein intake to et to calorie intake of about 1,000-1,200 -Continue to aim for water intake of at least 64 ounces per day 4. Hypertension, unspecified type - ICD9: 401.9, ICD10: I10 -Controlled -Last BP: 140/82 and last HR: 77 at PCP office -Continue home medications Interval History: PT specifies the following items as new or significant updates since the last appointment: Last visit was with me in July. Reports weight is stable/decreased since the last visit. Nausea a lot from her hernia. Taking Zofran. Having bowel movements regularly. No laxatives or stool softeners. She really just is waiting until December for the hernia surgery. Discussed importance of continuing to try and lose weight to hopefully improve postsurgical outcomes. Anti-obesity medications: Phentermine 37.5 mg daily Benefit: Appetite Suppressant Adverse effects: None BP: 140/82 HR: 77 Victoza 1.2 mg subq daily Benefits: DM, not eating a lot. Adverse effects: none She would be interested in increasing the dose Dietary changes: -Special K cereal -A lot of frit -Protein for one meal -Water intake is about 3 bottles per day Barriers: Skipping dinner sometimes. No aerobic training. Physical Activity: Barbell weights (3x/week about 15 minutes) Stress: No stress. Sleep: No changes. Sleeping about 8-9 hours. Feeling rested. No past medical history on file. Current Outpatient Medications Medication Sig Dispense Refill ALPRAZolam (XANAX) 0.25 mg tablet Take 0.25 mg by mouth at bedtime as needed. Meloxicam 7.5 mg/5 mL susp Take by mouth. levothyroxine 75 mcg cap Take 75 mcg by mouth daily before breakfast. meclizine (ANTIVERT) 25 mg tab Take 25 mg by mouth three times a day. amLODIPine (NORVASC) 2.5 mg tablet Take by mouth once daily. ondansetron HCl (ZOFRAN ORAL) Take by mouth as needed. insulin glargine,hum.rec.anlog (TOUJEO MAX U-300 SOLOSTAR SUBCUTANEOUS) Inject subcutaneously. tolterodine (DETROL) 2 mg tablet Take 2 mg by mouth two times a day. mirabegron (MYRBETRIQ) 25 mg Tb24 Take by mouth. rosuvastatin (CRESTOR) 20 mg tablet Take 20 mg by mouth once daily. sertraline (ZOLOFT) 50 mg tablet Take 50 mg by mouth once daily. ergocalciferol 50,000 unit capsule (VITAMIN D2, DRISDOL) Take 50,000 Units by mouth one time a week. No current facility-administered medications for this visit. Physical exam:LMP 03/24/2024 (Approximate) VIDEO EXAM: (if done, performed via video enabled technology) NAD, physical assessment not performed. Results: recent labs reviewed with the patient. No results found for: GLUC , K , NA , CHLOR , CO2 , CREAT , BUN , ANION , CA , TPROT , ALB , TBILI , ALKPHOS , AST , ALT No results found for: WBC , RBC , HB , HCT , MCV , MCH , MCHC , (more content not included)...[facility]11-06-2024 History of Present illness Narrative* Miguel Ángel Garza APRN.TAN ROOM SUPERVISOR - 09/03/2024 10:53 AM EST BMI Obesity Medicine Follow-Up Note- Distance Health Visit September 03, 2024 This Team Access Model visit is a virtual encounter. It required patient- provider interaction for the medical decision making as documented below. I have communicated my name and active licensure. The patient's identity and physical location were verified at the time of this visit. Either the patient or their legal unit support representative has been informed of the risks and benefits of -- and alternatives to -- treatment through a remote evaluation and consents to proceed with the evaluation remotely. Patient Summary: is a 44 year old female who presents for follow-up evaluation of her obesity and related complications to the [facility] [place]. Initial program weight: 311 lb lb (June 2024) Recent Weight history: Last Wt 07/30/24 : (!) 139.7 kg (308 lb) 07/07/24 : (!) 141.1 kg (311 lb) 07/07/24 : (!) 141.1 kg (311 lb) 05/20/24 : (!) 152.4 kg (336 lb) Assessement/plan from last visit: 1. Class 3 severe obesity due to excess calories with serious comorbidity and body mass index (BMI)of 50.0 to 59.9 in adult ([facility]) - ICD9: 278.01, V85.43, ICD10: E66.813, Z68.43, E66.01 (primary diagnosis) -Weight decreasing, lost 3 pounds -Continue to increase physical activity with goal of 200 min/week (continue weights and and in foodcycling) - LIRAGLUTIDE 0.6 MG/0.1 ML (18 MG/3 ML) SUBCUTANEOUS PEN INJECTOR -Continue Phentermine 37.5 mg daily as prescribed by PCP -Follow up in 4 weeks 2. Type 2 diabetes mellitus with chronic kidney disease, with long-term current use of insulin, unspecified CKD stage ([facility]) - ICD9: 250.40, 585.9, V58.67, ICD10: E11.22, Z79.4 -Last hba1c was 7.2 (06/2024) -PCP will draw next hba1c - LIRAGLUTIDE 0.6 MG/0.1 ML (18 MG/3 ML) SUBCUTANEOUS PEN INJECTOR 3. Dietary counseling and surveillance - ICD9: V65.3, ICD10: Z71.3 -Continue to eat a high protein, low calorie, low carb eating plan -Encouraged to increase protein intake to et to calorie intake of about 1,000-1,200 -Continue to aim for water intake of at least 64 ounces per day 4. Hypertension, unspecified type - ICD9: 401.9, ICD10: I10 -Controlled -Last BP: 140/82 and last HR: 77 at PCP office -Continue home medications Interval History: PT specifies the following items as new or significant updates since the last appointment: Last visit was with me in July. Reports weight is stable/decreased since the last visit. Nausea a lot from her hernia. Taking Zofran. Having bowel movements regularly. No laxatives or stool softeners. She really just is waiting until December for the hernia surgery. Discussed importance of continuing to try and lose weight to hopefully improve postsurgical outcomes. Anti-obesity medications: Phentermine 37.5 mg daily Benefit: Appetite Suppressant Adverse effects: None BP: 140/82 HR: 77 Victoza 1.2 mg subq daily Benefits: DM, not eating a lot. Adverse effects: none She would be interested in increasing the dose Dietary changes: -Special K cereal -A lot of frit -Protein for one meal -Water intake is about 3 bottles per day Barriers: Skipping dinner sometimes. No aerobic training. Physical Activity: Barbell weights (3x/week about 15 minutes) Stress: No stress. Sleep: No changes. Sleeping about 8-9 hours. Feeling rested. No past medical history on file. Current Outpatient Medications Medication Sig Dispense Refill ALPRAZolam (XANAX) 0.25 mg tablet Take 0.25 mg by mouth at bedtime as needed. Meloxicam 7.5 mg/5 mL susp Take by mouth. levothyroxine 75 mcg cap Take 75 mcg by mouth daily before breakfast. meclizine (ANTIVERT) 25 mg tab Take 25 mg by mouth three times a day. amLODIPine (NORVASC) 2.5 mg tablet Take by mouth once daily. ondansetron HCl (ZOFRAN ORAL) Take by mouth as needed. insulin glargine,hum.rec.anlog (TOUJEO MAX U-300 SOLOSTAR SUBCUTANEOUS) Inject subcutaneously. tolterodine (DETROL) 2 mg tablet Take 2 mg by mouth two times a day. mirabegron (MYRBETRIQ) 25 mg Tb24 Take by mouth. rosuvastatin (CRESTOR) 20 mg tablet Take 20 mg by mouth once daily. sertraline (ZOLOFT) 50 mg tablet Take 50 mg by mouth once daily. ergocalciferol 50,000 unit capsule (VITAMIN D2, DRISDOL) Take 50,000 Units by mouth one time a week. No current facility-administered medications for this visit. Physical exam:[facility] 03/24/2024 (Approximate) VIDEO EXAM: (if done, performed via video enabled technology) NAD, physical assessment not performed. Results: recent labs reviewed with the patient. No results found for: GLUC , K , NA , CHLOR , CO2 , CREAT , BUN , ANION , CA , TPROT , ALB , TBILI , ALKPHOS , AST , ALT No results found for: WBC , RBC , HB , HCT , MCV , MCH , MCHC , RDWCV , PLT , MPV No results found for: CHOL , HDL , LDL , TG HBA1C No results found for: HBA1C Computed FIB-4 Calculation unavailable. One or more values for this score either were not found within the given timeframe or did not fit some other criterion. ACTIVE PROBLEM LIST Class 3 Severe Obesity Due to Excess Calories With Serious Comorbidity and Body Mass Index (Bmi) of50.0 to 59.9 in Adult ([facility]) Snoring Assessment/Plan: 1. Class 3 severe obesity due to excess calories with serious comorbidity and body mass index (BMI)of 50.0 to 59.9 in adult ([facility]) - ICD9: 278.01, V85.43, ICD10: E66.813, Z68.43, E66.01 (primary diagnosis) -Weight decreasing, lost 1 pounds -Continue to increase physical activity with goal of 200 min/week (discussed adding in aerobic training) - LIRAGLUTIDE 0.6 MG/0.1 ML (18 MG/3 ML) SUBCUTANEOUS PEN INJECTOR -Continue Phentermine 37.5 mg daily as prescribed by PCP -Follow up in 4 weeks 2. Type 2 diabetes mellitus with chronic kidney disease, with long-term current use of insulin, unspecified CKD stage (HCC) - ICD9: 250.40, 585.9, V58.67, ICD10: E11.22, Z79.4 -Last hba1c was 5.8 (08/25/2024) - LIRAGLUTIDE 0.6 MG/0.1 ML (18 MG/3 ML) SUBCUTANEOUS PEN INJECTOR -Continue with lifestyle changes 3. Dietary counseling and surveillance - ICD9: V65.3, ICD10: Z71.3 -Continue to eat a high protein, low calorie, low carb eating plan -Discussed increasing her protein as she is only eating one meal with protein (idea of eggs and romanian yogurt in AM instead of Special K cereal) -Discussed decreasing 0 sugar pop intake and replacing with water intake 4. Hypertension, unspecified type - ICD9: 401.9, ICD10: I10 -Controlled -Continue home medications I spent a total of 13 minutes on the date of the service which included preparing to see the patient, [id number] patient care, completing clinical documentation, obtaining and/or reviewing separately obtained history, performing a medically appropriate examination, counseling and educating the pat ient/family/caregiver, and ordering medications, tests, or procedures. Weight Loss Trial: Today's weight management visit (1-): 3 Today's date: 09/03/2024 - Last weight (from last visit): 308 lb Medication regimen established at last visit: Victoza 1.2 mg subq daily and Phentermine 37.5 mg daily Any changes to regimen since last visit? If yes, please describe: - Today's weight: 307 lb Medication regimen established at the end of today's visit: Victoza 1.8 mg subq daily and Phentermine 37.5 mg daily Any changes to regimen? If yes, please describe: - Insurance/coverage notes: [facility] NoteHNO ID: [id number] Author: MIGUEL ÁNGEL GARZA APRN.CNP Service: ? Author Type: Nurse Practitioner Type: Progress Notes Filed: 07/30/2024 12:30 Note Text: BMI Obesity Medicine Follow-Up Note- Distance Health Visit July 30, 2024 This Team Access Model visit is a virtual encounter. It required patient-provider interaction for the medical decision making as documented below. I have communicated my name and active licensure. The patient's identity and physical location were verified at the time of this visit. Either the patient or their legal unit support representative has been informed of the risks and benefits of -- and alternatives to -- treatment through a remote evaluation and consents to proceed with the evaluation remotely. Patient Summary: is a 43 year old female who presents for follow-up evaluation of her obesity and related complications to [facility] [place]. Initial program weight: 311 lb lb (June 2024) Recent Weight history: Last Wt 07/30/24 : (!) 139.7 kg (308 lb) 07/07/24 : (!) 141.1 kg (311 lb) 07/07/24 : (!) 141.1 kg (311 lb) 05/20/24 : (!) 152.4 kg (336 lb) Assessement/plan from last visit: 1. Class 3 severe obesity due to excess calories with serious comorbidity and body mass index (BMI) of 50.0 to 59.9 in adult (HCC) - ICD9: 278.01, V85.43, ICD10: E66.01, Z68.43 (primary diagnosis) -Adulthood onset of obesity -Discussed physical activity of at least 200 min/week (light weights while seating or foot pedaling due to vertigo) -Continue Phentermine at prescribed by PCP - THYROID STIMULATING HORMONE - VITAMIN D 25 HYDROXY - LIRAGLUTIDE 0.6 MG/0.1 ML (18 MG/3 ML) SUBCUTANEOUS PEN INJECTOR -Follow up in 4 weeks virtually 2. Type 2 diabetes mellitus with chronic kidney disease, with long-term current use of insulin, unspecified CKD stage ([facility]) - ICD9: 250.40, 585.9, V58.67, ICD10: E11.22, Z79.4 - Uncontrolled -Last hba1c was 7.2 (06/2024) -Continue home medications as prescribed by PCP - LIRAGLUTIDE 0.6 MG/0.1 ML (18 MG/3 ML) SUBCUTANEOUS PEN INJECTOR 3. Dietary counseling and surveillance - ICD9: V65.3, ICD10: Z71.3 -Discussed eating a high protein, low calorie, low carb eating plan -Discussed drinking at least 64 ounces of water per day -Discussed importance of no skipping meals 4. Hypertension, unspecified type - ICD9: 401.9, ICD10: I10 -Negatively affected by the disease of obesity -Controlled on medications -Continue to monitor HR and BP while on Phentermine -Continue home BP meds prescribed by PCP 5. Obstructive sleep apnea - ICD9: 327.23, ICD10: G47.33 -Diagnosed years ago -Cannot tolerate CPAP due to claustrophobia -Continue to work on weight loss/management for intervention of LOUIS 6. Vitamin D deficiency - ICD9: 268.9, ICD10: E55.9 -Last Vitamin D was 23.7 (02/05/2024) -Continue taking Vitamin D 50,000 units weekly - VITAMIN D 25 HYDROXY Interval History: PT specifies the following items as new or significant updates since the last appointment: Last visit was with me in June. Reports weight is decreased since the last visit. Anti-obesity medications: Phentermine 37.5 mg daily Benefit:Appetite Suppressant Adverse effects: None BP: 140/82 HR: 77 Victoza 0.6 mg subq daily Benefits: Appetite Suppresant Adverse effects: none She would be interested in increasing the dose Dietary changes: -Special K cereal for breakfast -Lean Cuisine for lunch -No skipping meals -Small portion sizes Barriers: Only eating about 800 calories. No aerobic training Physical Activity: Barbell weights (3x/week). Stress: No stress. Sleep: No changes. Sleeping about 9 hours. No past medical history on file. Current Outpatient Medications Medication Sig Dispense Refill liraglutide (VICTOZA) 0.6 mg/ 0.1 ml subcutaneous pen injector Inject 0.6 mg subcutaneously once daily. 3 mL 0 ALPRAZolam (XANAX) 0.25 mg tablet Take 0.25 mg by mouth at bedtime as needed. Meloxicam 7.5 mg/5 mL susp Take by mouth. levothyroxine 75 mcg cap Take 75 mcg by mouth daily before breakfast. meclizine (ANTIVERT) 25 mg tab Take 25 mg by mouth three times a day. amLODIPine (NORVASC) 2.5 mg tablet Take by mouth once daily. ondansetron HCl (ZOFRAN ORAL) Take by mouth as needed. insulin glargine,hum.rec.anlog (TOUJEO MAX U-300 SOLOSTAR SUBCUTANEOUS) Inject subcutaneously. tolterodine (DETROL) 2 mg tablet Take 2 mg by mouth two times a day. mirabegron (MYRBETRIQ) 25 mg Tb24 Take by mouth. rosuvastatin (CRESTOR) 20 mg tablet Take 20 mg by mouth once daily. sertraline (ZOLOFT) 50 mg tablet Take 50 mg by mouth once daily. ergocalciferol 50,000 unit capsule (VITAMIN D2, DRISDOL) Take 50,000 Units by mouth one time a week. No current facility-administered medications for this visit. Physical exam:Ht 160 cm (5' 3 ) Wt (!) 139.7 kg (308 lb) LMP 03/24/2024 (Approximate) BMI 54.56 kg/m? VIDEO EXAM: (if done, perform (more content not included)...[facility]10-02-2024 History of Present illness Narrative* Miguel Ángel Garza APRN.TAN ROOM SUPERVISOR - 07/30/2024 11:43 AM EDT BMI Obesity Medicine Follow-Up Note- Distance Health Visit July 30, 2024 This Team Access Model visit is a virtual encounter. It required patient- provider interaction for the medical decision making as documented below. I have communicated my name and active licensure. The patient's identity and physical location were verified at the time of this visit. Either the patient or their legal unit support representative has been informed of the risks and benefits of -- and alternatives to -- treatment through a remote evaluation and consents to proceed with the evaluation remotely. Patient Summary: is a 43 year old female who presents for follow-up evaluation of her obesity and related complications to the [facility] [place]. Initial program weight: 311 lb lb (June 2024) Recent Weight history: Last Wt 07/30/24 : (!) 139.7 kg (308 lb) 07/07/24 : (!) 141.1 kg (311 lb) 07/07/24 : (!) 141.1 kg (311 lb) 05/20/24 : (!) 152.4 kg (336 lb) Assessement/plan from last visit: 1. Class 3 severe obesity due to excess calories with serious comorbidity and body mass index (BMI)of 50.0 to 59.9 in adult ([facility]) - ICD9: 278.01, V85.43, ICD10: E66.01, Z68.43 (primary diagnosis) -Adulthood onset of obesity -Discussed physical activity of at least 200 min/week (light weights while seating or foot pedalingdue to vertigo) -Continue Phentermine at prescribed by PCP - THYROID STIMULATING HORMONE - VITAMIN D 25 HYDROXY - LIRAGLUTIDE 0.6 MG/0.1 ML (18 MG/3 ML) SUBCUTANEOUS PEN INJECTOR -Follow up in 4 weeks virtually 2. Type 2 diabetes mellitus with chronic kidney disease, with long-term current use of insulin, unspecified CKD stage ([facility]) - ICD9: 250.40, 585.9, V58.67, ICD10: E11.22, Z79.4 - Uncontrolled -Last hba1c was 7.2 (06/2024) -Continue home medications as prescribed by PCP - LIRAGLUTIDE 0.6 MG/0.1 ML (18 MG/3 ML) SUBCUTANEOUS PEN INJECTOR 3. Dietary counseling and surveillance - ICD9: V65.3, ICD10: Z71.3 -Discussed eating a high protein, low calorie, low carb eating plan -Discussed drinking at least 64 ounces of water per day -Discussed importance of no skipping meals 4. Hypertension, unspecified type - ICD9: 401.9, ICD10: I10 -Negatively affected by the disease of obesity -Controlled on medications -Continue to monitor HR and BP while on Phentermine -Continue home BP meds prescribed by PCP 5. Obstructive sleep apnea - ICD9: 327.23, ICD10: G47.33 -Diagnosed years ago -Cannot tolerate CPAP due to claustrophobia -Continue to work on weight loss/management for intervention of [place] 6. Vitamin D deficiency - ICD9: 268.9, ICD10: E55.9 -Last Vitamin D was 23.7 (02/05/2024) -Continue taking Vitamin D 50,000 units weekly - VITAMIN D 25 HYDROXY Interval History: PT specifies the following items as new or significant updates since the last appointment: Last visit was with me in June. Reports weight is decreased since the last visit. Anti-obesity medications: Phentermine 37.5 mg daily Benefit:Appetite Suppressant Adverse effects: None BP: 140/82 HR: 77 Victoza 0.6 mg subq daily Benefits: Appetite Suppresant Adverse effects: none She would be interested in increasing the dose Dietary changes: -Special K cereal for breakfast -Lean Cuisine for lunch -No skipping meals -Small portion sizes Barriers: Only eating about 800 calories. No aerobic training Physical Activity: Barbell weights (3x/week). Stress: No stress. Sleep: No changes. Sleeping about 9 hours. No past medical history on file. Current Outpatient Medications Medication Sig Dispense Refill liraglutide (VICTOZA) 0.6 mg/ 0.1 ml subcutaneous pen injector Inject 0.6 mg subcutaneously once daily. 3 mL 0 ALPRAZolam (XANAX) 0.25 mg tablet Take 0.25 mg by mouth at bedtime as needed. Meloxicam 7.5 mg/5 mL susp Take by mouth. levothyroxine 75 mcg cap Take 75 mcg by mouth daily before breakfast. meclizine (ANTIVERT) 25 mg tab Take 25 mg by mouth three times a day. amLODIPine (NORVASC) 2.5 mg tablet Take by mouth once daily. ondansetron HCl (ZOFRAN ORAL) Take by mouth as needed. insulin glargine,hum.rec.anlog (TOUJEO MAX U-300 SOLOSTAR SUBCUTANEOUS) Inject subcutaneously. tolterodine (DETROL) 2 mg tablet Take 2 mg by mouth two times a day. mirabegron (MYRBETRIQ) 25 mg Tb24 Take by mouth. rosuvastatin (CRESTOR) 20 mg tablet Take 20 mg by mouth once daily. sertraline (ZOLOFT) 50 mg tablet Take 50 mg by mouth once daily. ergocalciferol 50,000 unit capsule (VITAMIN D2, DRISDOL) Take 50,000 Units by mouth one time a week. No current facility-administered medications for this visit. Physical exam:Ht 160 cm (5' 3 ) Wt (!) 139.7 kg (308 lb) LMP 03/24/2024 (Approximate) BMI 54.56 kg/m VIDEO EXAM: (if done, performed via video enabled technology) NAD, physical assessment not performed. Results: recent labs reviewed with the patient. No results found for: GLUC , K , NA , CHLOR , CO2 , CREAT , BUN , ANION , CA , TPROT , ALB , TBILI , ALKPHOS , AST , ALT No results found for: WBC , RBC , HB , HCT , MCV , MCH , MCHC , RDWCV , PLT , MPV No results found for: CHOL , HDL , LDL , TG HBA1C No results found for: HBA1C Computed FIB-4 Calculation unavailable. One or more values for this score either were not found within the given timeframe or did not fit some other criterion. ACTIVE PROBLEM LIST Class 3 Severe Obesity Due to Excess Calories With Serious Comorbidity and Body Mass Index (Bmi) of50.0 to 59.9 in Adult ([facility]) Snoring Assessment/Plan: 1. Class 3 severe obesity due to excess calories with serious comorbidity and body mass index (BMI)of 50.0 to 59.9 in adult ([facility]) - ICD9: 278.01, V85.43, ICD10: E66.813, Z68.43, E66.01 (primary diagnosis) -Weight decreasing, lost 3 pounds -Continue to increase physical activity with goal of 200 min/week (continue weights and and in foodcycling) - LIRAGLUTIDE 0.6 MG/0.1 ML (18 MG/3 ML) SUBCUTANEOUS PEN INJECTOR -Continue Phentermine 37.5 mg daily as prescribed by PCP -Follow up in 4 weeks 2. Type 2 diabetes mellitus with chronic kidney disease, with long-term current use of insulin, unspecified CKD stage ([facility]) - ICD9: 250.40, 585.9, V58.67, ICD10: E11.22, Z79.4 -Last hba1c was 7.2 (06/2024) -PCP will draw next hba1c - LIRAGLUTIDE 0.6 MG/0.1 ML (18 MG/3 ML) SUBCUTANEOUS PEN INJECTOR 3. Dietary counseling and surveillance - ICD9: V65.3, ICD10: Z71.3 -Continue to eat a high protein, low calorie, low carb eating plan -Encouraged to increase protein intake to et to calorie intake of about 1,000-1,200 -Continue to aim for water intake of at least 64 ounces per day 4. Hypertension, unspecified type - ICD9: 401.9, ICD10: I10 -Controlled -Last BP: 140/82 and last HR: 77 at PCP office -Continue home medications I spent a total of 12 minutes on the date of the service which included preparing to see the patient, [id number] patient care, completing clinical documentation, obtaining and/or reviewing separately obtained history, performing a medically appropriate examination, counseling and educating the pat ient/family/caregiver, and ordering medications, tests, or procedures. Weight Loss Trial: Today's weight management visit (1-6): 2 Today's date: 07/30/2024 - Last weight (from last visit): 311 lb Medication regimen established at last visit: Victoza 0.6 mg subq daily and Phentermine 37.5 mg daily Any changes to regimen since last visit? If yes, please describe: - Today's weight: 308 lb Medication regimen established at the end of today's visit: Victoza 1.2 mg subq daily and Phentermine 37.5 mg daily Any changes to regimen? If yes, please describe: - Insurance/coverage notes: documented in this encounterW[facility] NoteHNO ID: [id number] Author: JERAMIE FRANCO MD Service: ? Author Type: Physician Type: Progress Notes Filed: 07/07/2024 10:01 Note Text: Guerrero Ramos is a 43 year old female who returns to clinic for incisional hernia after partial colectomy for colon cancer. She has lost 25 lbs and her BMI is now 55. She was randomized to weight loss. I have seen and evaluated the patient and discussed the case with the resident physician. I agree with the assessment and plan as documented in the resident?s note including a ROS that was reviewed and negative other than what was indicated in our notes. Patient consented for study? Yes STUDY TITLE: Preoperative weight loss for open abdominal wall reconstruction IRB NO.: #[id number] CUSTOMER SERVICE DISPATCHER: Jeramie Franco MD COORDINATOR/Research Nurse/Sprayer Insecticide: Daniel Hanson MD Phone/email: [phone], [email or web address] Consenting was performed by the attending surgeon, in a [id number] manner, during preoperative evaluation at the General Surgery clinic. The study protocol was discussed in detail with the patient. All study procedures were explained to the subject, including randomization, the two possible study interventions for all patients participating in the study. The importance of follow up compliance was stressed. The risks, benefits, alternatives to participation and potential costs were discussed. All patient questions were addressed and answered. Patient has read and understood the study procedures and requirements. Patient has agreed to proceed with trial participation and consent signed. Copy of the signed consent provided to the patient. INCLUSION CRITERIA Yes No 1. The patient is > 18 years of age [x] [] 2. Open retromuscular ventral hernia repair with an anticipated posterior component separation with transversus abdominis release and synthetic mesh [x] [] 3. BMI 40-55 kg/m2 [x] [] 4. The patient is willing and able to give written informed consent [x] [] EXCLUSION CRITERIA Yes No 1. The patient lacks Syrian language fluency or cannot understand the consent form/study procedures [] [x] 2. Urgent need for repair as determined by surgeon judgement [] [x] 3. Permanent stoma in place or isolated flank hernia [] [x] 4. Anticipated need for staged operation [] [x][facility] 07-07-2024 History of Present illness Narrative* Jeramie Franco MD - 07/07/2024 9:19 AM EDT Guerrero Ramos is a 43 year old female who returns to clinic for incisional hernia after partial colectomy for colon cancer. She has lost 25 lbs and her BMI is now 55. She was randomized to weight loss. I have seen and evaluated the patient and discussed the case with the resident physician. I agree with the assessment and plan as documented in the resident s note including a ROS that was reviewed and negative other than what was indicated in our notes. Patient consented for study? Yes STUDY TITLE: Preoperative weight loss for open abdominal wall reconstruction IRB NO.: #[id number] CUSTOMER SERVICE DISPATCHER: Jeramie Franco MD COORDINATOR/Research Nurse/Sprayer Insecticide: Daniel Hanson MD Phone/email: [phone], [email or web address] Consenting was performed by the attending surgeon, in a [id number] manner, during preoperative evaluation at the General Surgery clinic. The study protocol was discussed in detail with the patient. All study procedures were explained tothe subject, including randomization, the two possible study interventions for all patients participating in the study. \The importance of follow up compliance was stressed. The risks, benefits, alter natives to participation and potential costs were discussed. All patient questions were addressed and answered. Patient has read and understood the study procedures and requirements. Patient has agreed to proceed with trial participation and consent signed. Copy of the signed consent provided to the patient. INCLUSION CRITERIA Yes No 1. The patient is > 18 years of age [x] [] 2. Open retromuscular ventral hernia repair with an anticipated posterior component separation withtransversus abdominis release and synthetic mesh [x] [] 3. BMI 40-55 kg/m2 [x] [] 4. The patient is willing and able to give written informed consent [x] [] EXCLUSION CRITERIA Yes No 1. The patient lacks Syrian language fluency or cannot understand the consent form/study procedures [] [x] 2. Urgent need for repair as determined by surgeon judgement [] [x] 3. Permanent stoma in place or isolated flank hernia [] [x] 4. Anticipated need for staged operation [] [x] * Rashida Joyner MD - 07/07/2024 8:25 AM EDT [facility] - HISTORY AND PHYSICAL Chief Complaint: Two incisional hernias- abdominal pain HPI: Guerrero Ramos is a 43 year old female who presents for a follow-up appointment with Dr Franco for the management of two incisional ventral hernias associated with moderate abdominal pain. Patient history is significant for BMI 59, T2DM, Colon cancer c/b intussusception s/p L. Hemicolectomy andpartial omentectomy (2015) and lap cholecystectomy (2004) . The patient came to the clinic on 03/2024 for the management of a 10 x 10cm R. Epigastric hernia lateral to midline incision of her colectomy as well as another incisional/umbilical hernia. A CT A/P at the time confirmed two ventral hernias containing fat and bowel. Due to her high BMI, patient was counseled to follow-up with the [facility] for BMI optimization (Goal BMI 55) and follow-up in 3 months for further evaluation. Since then, her course has been complicated by an admission to an OSH ED for lower abdominal pain in 05/2024 which she tought was related to her hernias. She was diagnosed with an UTI and was discharged. No other complications related to her hernias. The patient reports she is now tolerating Phentermine 18.75 mg with a weight loss estimated at 20 lbs. Of note, she had a hx of not tolerating otherweight loss medications such as Ozempic, Farxega and Mounjaro due to GI upset. She is motivated to lose more weight and reports there has been no changes in her symptoms. CT A/P from her admission [facility] showed no changes in hernia size or number. Current BMI 55.09 (311 lbs). Relevant previous operations include: Colon cancer c/b intussusception s/p L. Hemicolectomy and partial omentectomy (2015), lap cholecystectomy (2004) No history of Psychiatric Disorders or Opioid Use Independent Light physical labor Sporadic (once/month) Diabetes Mellitus History of open abdomen No past medical history on file. No past surgical history on file. Social History Tobacco Use Smoking status: Never Smokeless tobacco: Never Additional social history not relevant to the patient's HPI No family history on file. Additional family history not relevant to the patient's HPI ALLERGIES Allergen Reactions Penicillins Rash Current Outpatient Medications Medication Sig Dispense Refill ALPRAZolam (XANAX) 0.25 mg tablet Take 0.25 mg by mouth at bedtime as needed. Meloxicam 7.5 mg/5 mL susp Take by mouth. levothyroxine 75 mcg cap Take 75 mcg by mouth daily before breakfast. meclizine (ANTIVERT) 25 mg tab Take 25 mg by mouth three times a day. amLODIPine (NORVASC) 2.5 mg tablet Take by mouth once daily. ondansetron HCl (ZOFRAN ORAL) Take by mouth as needed. insulin glargine,hum.rec.anlog (TOUJEO MAX U-300 SOLOSTAR SUBCUTANEOUS) Inject subcutaneously. tolterodine (DETROL) 2 mg tablet Take 2 mg by mouth two times a day. mirabegron (MYRBETRIQ) 25 mg Tb24 Take by mouth. rosuvastatin (CRESTOR) 20 mg tablet Take 20 mg by mouth once daily. sertraline (ZOLOFT) 50 mg tablet Take 50 mg by mouth once daily. ergocalciferol 50,000 unit capsule (VITAMIN D2, DRISDOL) Take 50,000 Units by mouth one time a week. No current facility-administered medications for this visit. REVIEW OF SYSTEMS GENERAL: No fevers. RESPIRATORY: No cough or shortness of breath CARDIOVASCULAR: No chest pain GI: No nausea, vomiting, or diarrhea The remainder of the review of systems is negative. BP 150/83 Pulse 93 Temp 36.7 C (98.1 F) (Oral) Ht 160 cm (5' 3 ) Wt (!) 141.1 kg (311 lb) LMP 03/24/2024 (Approximate) BMI 55.09 kg/m Physical findings of this patient are as follows (COMPLETE 10 INCLUDING HEART AND LUNG EXAM OR CHOOSE NORMAL EXAM IF APPROPRIATE): Physical Exam Physical Exam Constitutional: The patient is well-developed and in no distress. Cardiovascular: Regular rate. Pulmonary/Chest: Effort normal and breathing comfortably on room air. Abdominal: Soft, mildly tender on palpation of the hernias, non distended Neurological: Alert. Skin: Skin is warm and dry. Psychiatric: Affect and judgment normal. Relevant Hernia Findings - 10 x 10cm R. Epigastric hernia lateral to midline incision. Incision extends from sub-xiphoid to just inferior to umbilicus. Hernia is soft but mildly tender to palpation, LABS: No results found for: HBA1C IMAGING - Reviewed with staff CT - 1x 6cm ventral hernia containing fat and bowel, 1x 7cm ventral hernia containing fat and bowel Assessment: Guerrero Ramos is a 43 year old female who presents with two unchanged incisional ventral hernias. Patient asymptomatic. She is currently tolerating Phentermine and was able to lose 20 lbs. BMI optimization ongoing (currently BMI 55) is necessary prior to any surgical intervention. Plan: Discussed with the patient that she now meets criteria for surgical intervention She was randomized to the 6 months weight loss program and consented for abdominal wall reconstruction with Dr Franco. Rashida Joyner MD General Surgery PGY1 documented in this encounterWadsworth-[facility] NoteHNO ID: [id number] Author: MIGUEL ÁNGEL GARZA APRN.TAN ROOM SUPERVISOR Service: ? Author Type: Nurse Practitioner Type: Progress Notes Filed: 07/07/2024 11:53 Note Text: BMI Obesity Medicine Consultation Date of Service: 07/07/24 Reason for Consultation: Obesity. CC/HPI: Subjective Guerrero Ramos is a 43 year old female with obesity who [facility] [place] for an initial evaluation of her obesity. Primary reason for wanting obesity treatment: Hernia surgery. Treatment options of interest: Medical. Overall goal: 250 lbs. Have you tried weight loss medications? If so, which ones? Greg Tirado Weight History: Causes of Weight Gain: Family history of obesity:No Post weight retention: No Menopause associated weight gain:N/A Past/Current medication-induced weight gain: No Tobacco cessation associated weight gain:No Weight gain associated with reduced physical activity:Yes Adult or Childhood Obesity: Adult Lifestyle Factors: Diet: 24 Hour Recall: Breakfast: Special K Cereal Lunch: Lean Cuisine Dinner: Fruit Snacks: 1 month ago - cut out Water: 3 bottles per day Do you think that you have a healthy diet? No. Overall characterization of present diet:Unstructured, unhealthy snacking, evening snacking, and skip meals. How have you tried to lose weight in the past? Yes. What worked? Kassandra. Exercise: Do you exercise ? No Are you able to walk up a flight of stairs or a small hill? No If no, why not? Vertigo. Have you tried exercise programs in the past for weight loss? Self-directed What worked? None Stress: Stress level during the last year: 0 out of ten. Sleep: Inadequate sleep duration(<6hr/night): No. 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 Poor quality, unrestful sleep:Yes. Wakes: 9 AM Bedtime: 11:30 PM LOUIS: Yes CPAP: Tried in the past and had claustrophobia Past Medical and Surgical History: ACTIVE PROBLEM LIST Class 3 Severe Obesity Due to Excess Calories With Serious Comorbidity and Body Mass Index (Bmi) of 50.0 to 59.9 in Adult ([facility]) Snoring No past surgical history on file. Obesity Related Comorbidities/ROS/ FHx: Fatigue: No h/o shortness of breath, BAHENA, PND, edema: No h/o uncontrolled blood pressure: No h/o palpitations/cardiac arrhythmia: No h/o chest pain: No h/o CV event (SC, arrhythmias, CVA, TIA): No h/o of PE, bleeding diathesis, hypercoaguable syndrome, excessive bleeding, > 1 DVT, on chronic anticoagulation:No. Stress incontinence:No. GERD: Occasionally .- Once every 6 months Fatty liver disease:No. Migraine MORSE and visual changes:No. Glaucoma: No Seizures: No. h/o: hyperthyroidism: No h/o drug or alcohol abuse: No MAOIs use: No Loop diuretic use: No h/o kidney disease: Renal insufficiency h/o kidney stones: Yes h/o pancreatitis: No h/o gallstones: No Sexually Active? No Gastroparesis: No Medullary thyroid cancern or MEN-2? No Symptoms of diabetes: Hba1c was 7.2 (06/2024) . Symptoms of hypothyroidism: On Synthroid . Symptoms of Cushings disease:No. Symptoms of PCOS:No. Family history of diabetes: Grandma Family history of cancer: Throat Cancer and Colon Cancer . Family history of blood clots/ blood disorder:No. 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 Current Smoker w/in 1 year:No. Vital Signs BP 150/83 Pulse 93 Temp 36.7 ?C (98.1 ?F) Ht 160 cm (5' 3 ) Wt (!) 141.1 kg (311 lb) LMP 03/24/2024 (Approximate) BMI 55.09 kg/m? PE: NAD:Mixed central and gluteofemoral adiposity. No acanthosis, no lipoma, no pallor. No supraclavicular adiposity. No dorsal adiposity. PERRL. Tongue moist, pink. No OP crowding. Good dental hygiene Lungs: Lungs clear to auscultation. No wheezing, rhonchi, rales Heart: RRR without murmur, gallop, or rubs. No ectopy Abdomen: Soft:Large pannus No striae. Nontender. Non distended. Peripheral pulses: Normal Extremities: No clubbing, cyanosis, or edema. Results: reviewed with the patient No visits with results within 3 Month(s) from this visit. Latest known visit with results is: No results found for any previous visit. Impression: Guerrero Ramos is a 43 year old female with Class III obesity who presents to the [facility] and interested in the combination of behavioral and pharmacological for treatment. She has adult onset obesity with several periods of weight loss followed by weight gain . The causes of her obesity are multifactorial and may include increased consumption of high calorie/process foods, irregular eating patterns , and suboptimal physical activity. In addition to her obesity, there are few weight-related medical comorbidities which increase her cardiovascular mortality risk. New obesity comorbidities include the following:type 2 diabetes mellitus, hypertension, obstruct (more content not included)...[facility]09-09-2024 History of Present illness Narrative* Miguel Ángel Garza APRN.[facility] - 07/07/2024 9:17 AM EDT [facility] Obesity Medicine Consultation Date of Service: 07/07/24 Reason for Consultation: Obesity. CC/HPI: Subjective Guerrero Ramos is a 43 year old female with obesity who presents to the [facility] [place] for an initial evaluation of her obesity. Primary reason for wanting obesity treatment: Hernia surgery. Treatment options of interest: Medical. Overall goal: 250 lbs. Have you tried weight loss medications? If so, which ones? Greg Tirado Weight History: Causes of Weight Gain: Family history of obesity:No Post weight retention: No Menopause associated weight gain:N/A Past/Current medication-induced weight gain: No Tobacco cessation associated weight gain:No Weight gain associated with reduced physical activity:Yes Adult or Childhood Obesity: Adult Lifestyle Factors: Diet: 24 Hour Recall: Breakfast: Special K Cereal Lunch: Lean Cuisine Dinner: Fruit Snacks: 1 month ago - cut out Water: 3 bottles per day Do you think that you have a healthy diet? No. Overall characterization of present diet:Unstructured, unhealthy snacking, evening snacking, and skip meals. How have you tried to lose weight in the past? Yes. What worked? Ozempleti and Mounmarilinro. Exercise: Do you exercise ? No Are you able to walk up a flight of stairs or a small hill? No If no, why not? Vertigo. Have you tried exercise programs in the past for weight loss? Self-directed What worked? None Stress: Stress level during the last year: 0 out of ten. Sleep: Inadequate sleep duration(<6hr/night): No. 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 Poor quality, unrestful sleep:Yes. Wakes: 9 AM Bedtime: 11:30 PM LOUIS: Yes CPAP: Tried in the past and had claustrophobia Past Medical and Surgical History: ACTIVE PROBLEM LIST Class 3 Severe Obesity Due to Excess Calories With Serious Comorbidity and Body Mass Index (Bmi) of50.0 to 59.9 in Adult (Hcc) Snoring No past surgical history on file. Obesity Related Comorbidities/ROS/ FHx: Fatigue: No h/o shortness of breath, BAHENA, PND, edema: No h/o uncontrolled blood pressure: No h/o palpitations/cardiac arrhythmia: No h/o chest pain: No h/o CV event (SC, arrhythmias, CVA, TIA): No h/o of PE, bleeding diathesis, hypercoaguable syndrome, excessive bleeding, > 1 DVT, on chronic anticoagulation:No. Stress incontinence:No. GERD: Occasionally .- Once every 6 months Fatty liver disease:No. Migraine MORSE and visual changes:No. Glaucoma: No Seizures: No. h/o: hyperthyroidism: No h/o drug or alcohol abuse: No MAOIs use: No Loop diuretic use: No h/o kidney disease: Renal insufficiency h/o kidney stones: Yes h/o pancreatitis: No h/o gallstones: No Sexually Active? No Gastroparesis: No Medullary thyroid cancern or MEN-2? No Symptoms of diabetes: Hba1c was 7.2 (06/2024) . Symptoms of hypothyroidism: On Synthroid . Symptoms of Cushings disease:No. Symptoms of PCOS:No. Family history of diabetes: Grandma Family history of cancer: Throat Cancer and Colon Cancer . Family history of blood clots/ blood disorder:No. 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 Current Smoker w/in 1 year:No. Vital Signs BP 150/83 Pulse 93 Temp 36.7 C (98.1 F) Ht 160 cm (5' 3 ) Wt (!) 141.1 kg (311 lb) LMP 03/24/2024 (Approximate) BMI 55.09 kg/m PE: NAD:Mixed central and gluteofemoral adiposity. No acanthosis, no lipoma, no pallor. No supraclavicular adiposity. No dorsal adiposity. PERRL. Tongue moist, pink. No OP crowding. Good dental hygiene Lungs: Lungs clear to auscultation. No wheezing, rhonchi, rales Heart: RRR without murmur, gallop, or rubs. No ectopy Abdomen: Soft:Large pannus No striae. Nontender. Non distended. Peripheral pulses: Normal Extremities: No clubbing, cyanosis, or edema. Results: reviewed with the patient No visits with results within 3 Month(s) from this visit. Latest known visit with results is: No results found for any previous visit. Impression: Guerrero Ramos is a 43 year old female with Class III obesity who presents to the [facility] and interestedin the combination of behavioral and pharmacological for treatment. She has adult onset obesity with several periods of weight loss followed by weight gain . The causes of her obesity are multifactorial and may include increased consumption of high calorie/process foods, irregular eating patterns ,and suboptimal physical activity. In addition to her obesity, there are few weight-related medical comorbidities which increase her cardiovascular mortality risk. New obesity comorbidities include the following:type 2 diabetes mellitus, hypertension, obstructive sleep apnea, and vitamin D deficiency. In addition to the medical conditions, there are a few behavioral contributors . which include,foodcravings, grazing/irregular meal patterns, lack of motivation, and reduced physical activity. Patient has completed 6 months of comprehensive lifestyle interventions and has been unable to haveweight loss of at least 5% of body weight. Although there are areas in her diet that need improvement and the current physical activity is less than the recommended 150-200 min/ week, it is unlikely that behavioral modification alone will be effective in [place] weight loss. It is clear that her overall quality of life is compromised by her weight. Regardless, she is motivated to lose weight and open to our recommendations. Assessment/Plan: 1. Class 3 severe obesity due to excess calories with serious comorbidity and body mass index (BMI)of 50.0 to 59.9 in adult ([facility]) - ICD9: 278.01, V85.43, ICD10: E66.01, Z68.43 (primary diagnosis) -Adulthood onset of obesity -Discussed physical activity of at least 200 min/week (light weights while seating or foot pedalingdue to vertigo) -Continue Phentermine at prescribed by PCP - THYROID STIMULATING HORMONE - VITAMIN D 25 HYDROXY - LIRAGLUTIDE 0.6 MG/0.1 ML (18 MG/3 ML) SUBCUTANEOUS PEN INJECTOR -Follow up in 4 weeks virtually 2. Type 2 diabetes mellitus with chronic kidney disease, with long-term current use of insulin, unspecified CKD stage ([facility]) - ICD9: 250.40, 585.9, V58.67, ICD10: E11.22, Z79.4 - Uncontrolled -Last hba1c was 7.2 (06/2024) -Continue home medications as prescribed by PCP - LIRAGLUTIDE 0.6 MG/0.1 ML (18 MG/3 ML) SUBCUTANEOUS PEN INJECTOR 3. Dietary counseling and surveillance - ICD9: V65.3, ICD10: Z71.3 -Discussed eating a high protein, low calorie, low carb eating plan -Discussed drinking at least 64 ounces of water per day -Discussed importance of no skipping meals 4. Hypertension, unspecified type - ICD9: 401.9, ICD10: I10 -Negatively affected by the disease of obesity -Controlled on medications -Continue to monitor HR and BP while on Phentermine -Continue home BP meds prescribed by PCP 5. Obstructive sleep apnea - ICD9: 327.23, ICD10: G47.33 -Diagnosed years ago -Cannot tolerate CPAP due to claustrophobia -Continue to work on weight loss/management for intervention of LOUIS 6. Vitamin D deficiency - ICD9: 268.9, ICD10: E55.9 -Last Vitamin D was 23.7 (02/05/2024) -Continue taking Vitamin D 50,000 units weekly - VITAMIN D 25 HYDROXY I have communicated my name and active licensure. The patient's identity and physical location wereverified at the time of this visit. Either the patient or their legal unit support representative has been informed of the risks and benefits of -- and alternatives to -- treatment through a remote evaluation andconsents to proceed with the evaluation remotely. Miguel Ángel Garza, MSN, HOSPICE DIRECTOR, HERBARIUM CURATOR-C July 07, 2024 9:17 AM Weight Loss Trial: Today's weight management visit (1-6): 1 Today's date: 07/07/2024 - Last weight (from last visit): N/A Medication regimen established at last visit: Any changes to regimen since last visit? If yes, please describe: - Today's weight: 311 lb Medication regimen established at the end of today's visit: Victoza 0.6 mg subQ daily and Phentermine 37.5 mg daily Any changes to regimen? If yes, please describe: - Insurance/coverage notes: documented in this encounterWadsworth-[facility]09-09-2024 NoteHNO ID: [id number] Author: RASHIDA JOYNER MD Service: ? Author Type: Resident Type: Progress Notes Filed: 07/07/2024 10:01 Note Text: [facility] Abdominal Core [facility] - HISTORY AND PHYSICAL Chief Complaint: Two incisional hernias- abdominal pain HPI: Guerrero Ramos is a 43 year old female who presents for a follow-up appointment with Dr Franco for the management of two incisional ventral hernias associated with moderate abdominal pain. Patient history is significant for BMI 59, T2DM, Colon cancer c/b intussusception s/p L. Hemicolectomy and partial omentectomy (2015) and lap cholecystectomy (2004) . The patient came to the clinic on 03/2024 for the management of a 10 x 10cm R. Epigastric hernia lateral to midline incision of her colectomy as well as another incisional/umbilical hernia. A CT A/P at the time confirmed two ventral hernias containing fat and bowel. Due to her high BMI, patient was counseled to follow-up with the [facility] [place] for BMI optimization (Goal BMI 55) and follow-up in 3 months for further evaluation. Since then, her course has been complicated by an admission to an OSH ED for lower abdominal pain in 05/2024 which she tought was related to her hernias. She was diagnosed with an UTI and was discharged. No other complications related to her hernias. The patient reports she is now tolerating Phentermine 18.75 mg with a weight loss estimated at 20 lbs. Of note, she had a hx of not tolerating other weight loss medications such as Ozempic, Farxega and Mounjaro due to GI upset. She is motivated to lose more weight and reports there has been no changes in her symptoms. CT A/P from her admission in May showed no changes in hernia size or number. Current BMI 55.09 (311 lbs). Relevant previous operations include: Colon cancer c/b intussusception s/p L. Hemicolectomy and partial omentectomy (2015), lap cholecystectomy (2004) No history of Psychiatric Disorders or Opioid Use Independent Light physical labor Sporadic (once/month) Diabetes Mellitus History of open abdomen No past medical history on file. No past surgical history on file. Social History Tobacco Use Smoking status: Never Smokeless tobacco: Never Additional social history not relevant to the patient's HPI No family history on file. Additional family history not relevant to the patient's HPI ALLERGIES Allergen Reactions Penicillins Rash Current Outpatient Medications Medication Sig Dispense Refill ALPRAZolam (XANAX) 0.25 mg tablet Take 0.25 mg by mouth at bedtime as needed. Meloxicam 7.5 mg/5 mL susp Take by mouth. levothyroxine 75 mcg cap Take 75 mcg by mouth daily before breakfast. meclizine (ANTIVERT) 25 mg tab Take 25 mg by mouth three times a day. amLODIPine (NORVASC) 2.5 mg tablet Take by mouth once daily. ondansetron HCl (ZOFRAN ORAL) Take by mouth as needed. insulin glargine,hum.rec.anlog (TOUJEO MAX U-300 SOLOSTAR SUBCUTANEOUS) Inject subcutaneously. tolterodine (DETROL) 2 mg tablet Take 2 mg by mouth two times a day. mirabegron (MYRBETRIQ) 25 mg Tb24 Take by mouth. rosuvastatin (CRESTOR) 20 mg tablet Take 20 mg by mouth once daily. sertraline (ZOLOFT) 50 mg tablet Take 50 mg by mouth once daily. ergocalciferol 50,000 unit capsule (VITAMIN D2, DRISDOL) Take 50,000 Units by mouth one time a week. No current facility-administered medications for this visit. REVIEW OF SYSTEMS GENERAL: No fevers. RESPIRATORY: No cough or shortness of breath CARDIOVASCULAR: No chest pain GI: No nausea, vomiting, or diarrhea The remainder of the review of systems is negative. BP 150/83 Pulse 93 Temp 36.7 ?C (98.1 ?F) (Oral) Ht 160 cm (5' 3 ) Wt (!) 141.1 kg (311 lb) LMP 03/24/2024 (Approximate) BMI 55.09 kg/m? Physical findings of this patient are as follows (COMPLETE 10 INCLUDING HEART AND LUNG EXAM OR CHOOSE NORMAL EXAM IF APPROPRIATE): Physical Exam Physical Exam Constitutional: The patient is well-developed and in no distress. Cardiovascular: Regular rate. Pulmonary/Chest: Effort normal and breathing comfortably on room air. Abdominal: Soft, mildly tender on palpation of the hernias, non distended Neurological: Alert. Skin: Skin is warm and dry. Psychiatric: Affect and judgment normal. Relevant Hernia Findings - 10 x 10cm R. Epigastric hernia lateral to midline incision. Incision extends from sub-xiphoid to just inferior to umbilicus. Hernia is soft but mildly tender to palpation, LABS: No results found for: HBA1C IMAGING - Reviewed with staff CT - 1x 6cm ventral hernia containing fat and bowel, 1x 7cm ventral hernia containing fat and bowel Assessment: Guerrero Ramos is a 43 year old female who presents with two unchanged incisional ventral hernias. Patient asymptomatic. She is currently tolerating Phentermine and was able to lose 20 lbs. BMI optimization ongoing (currently BMI 55) is necessary prior to any surgical inter (more content not included)...[facility]09-09-2024 Nurse Note* Tessa Desai MA - 07/07/2024 8:14 AM EDT What is the reason for your visit today? Est Who is your referring physician? Dr. Franco Are you having poor oral intake? NO Have you had unintentional weight loss of 15 lbs/7 Kg in the last 3-6 months? NO Bowels: regular Wound: clean & dry Temperature: No Drains: No [facility]09-09-2024 Nurse Note* Tessa Desai MA - 07/07/2024 8:14 AM EDT What is the reason for your visit today? Est Who is your referring physician? Dr. Franco Are you having poor oral intake? NO Have you had unintentional weight loss of 15 lbs/7 Kg in the last 3-6 months? NO Bowels: regular Wound: clean & dry Temperature: No Drains: No documented in this encounterWadsworth-[facility]ittman [facility]08-22-20[facility] Evaluation note* Diagnosis Onset Date Resolution Status Admit Date Anemia of renal disease acute A ugust 2023 9:58am Hyperlipidemia acute May 9:58am Secondary hyperparathyroidism acute June 19, 2024 9:58am Nephrolithiasis chronic June 192023 9:58am Proteinuria chronic June 19, 2024 9:58am CKD (chronic kidney disease) stage 3, GFR 30-59 ml/min inactive June 19, 2024 9:58am Hypertensive chronic kidney disease with stage 1 through stage 4 chronic ki inactive June 19 9:58am Type 2 diabetes mellitus wit h diabetic chronic kidney disease inactive June 19, 2024 9:58am [facility] Work Phone: 1(600) 670-890808-19-2024 Progress note Author Jocelyn [facility] June 16, 2024 11:09am Note Date/Time June 16, 2024 11 :05am [facility] [address] [place] [address] Nephrology Progress Note Signed Patient: Guerrero Ramos MR#: [id number] : 1980 Acct:[id number] Age/Sex: 43 / F Adm Date: 4 Loc: Room: [address] [place] [address] Type: ADM IN Attending Dr: Dontae Hernandez DO Copies to: ~ Date of Service: 06/16/2024 Subjective Subjective Narrative: This is a 43-year-old female with history of CKD3 presented to the emergency room for abdominal pain ,nausea and vomiting. Patient has multiple comorbidities including morbid obesity, anxiety, depression, ventral hernia, DM,HTN, HLD, colon cancer s/p resection and secondary hyperparathyroidism. On evaluation in emergency room patient was found to have RIO with elevated serum creatinine 2.8 g/dL above her baseline 2.0 mg/dL. She had a CAT scan abdomen pelvis which did not show any bowel obstruction or obstructive uropathy. Patient was started on gentle fluid resuscitation by the admitting team. Her serum creatinine went down to 2.5 mg/dL with fluid resuscitation so it was stopped. Her serum creatinine went up again to 2.8 mg/dL so IV fluid was started and nephrology is consulted. Interim history Patient is up in the bed. She feels comfortable with no more nausea or vomiting. She stated that she is able to eat and drink. Patient still on IV fluid normal saline at rate of 60 cc/h. Renal function slowly improving down to 2.38 mg/dL closer to the baseline. Patient has reasonable urine output. Bladder scan showed no urine retention Exam Physical Exam Vital Signs: Temp Pulse Resp BP Pulse Ox O2 Del Method O2 Flow Rate 36.7 C 72 20 164/86 H 99 Room Air 2 06/16/24 08:21 06/16/24 08:21 06/16/24 08:21 06/16/24 08:21 06/16/24 08:21 06/16/24 08:21 06/12/24 19:26 Narrative: General: Morbidly obese, appears comfortable and not in distress Heart: Regular, S1-S2, no rub Lung: Bilateral air entry, no wheezing or crackles Abdomen: Soft, positive bowel sounds. No palpable organs or masses. No rebound. Extremities: 1+ edema Skin: No rashes , warm to touch PROJECT ACCOUNTANT: Awake,Alert, following simple command Musculoskeletal: No swelling or limitation of movement of the large joints Psychiatric: Cooperative, normal mood and affect Objective Intake and Output I&O: Intake & Output 06/13/24 06/14/24 06/15/24 06/16/24 23:59 23:59 23:59 23:59 Intake Total 550 / 550 1600 / 1600 3040 / 3040 1240 / 1240 Balance 550 / 550 1600 / 1600 3040 / 3040 1240 / 1240 Weight 151.5 kg 152.3 kg 152.8 kg 154.6 kg Meds and Allergies Meds: Active Medications Acetaminophen (Acetaminophen 325 Mg Tablet) 650 mg PO Q6HR PRN PRN Reason: Pain Scale 1 - 3 or fever Stop: 06/13/25 00:30 Last Admin: 06/15/24 09:01 Dose: 650 mg Alprazolam (Alprazolam 0.5 Mg Tablet) 0.5 mg PO DAILY [facility] Stop: 12/10/24 08:59 Last Admin: 06/16/24 09:08 Dose: 0.5 mg Amlodipine Besylate (Amlodipine 2.5 Mg Tablet) 2.5 mg PO DAILY [facility] Stop: 06/13/25 08:59 Last Admin: 06/16/24 09:08 Dose: 2.5 mg Atorvastatin Calcium (Atorvastatin 40 Mg Tablet) 40 mg PO HS [facility] Stop: 06/13/25 21:59 Last Admin: 06/15/24 21:13 Dose: 40 mg Calcium Carbonate (Calcium Carbonate 500 Mg Tab.Chew) 1,000 mg PO Q4H PRN PRN Reason: Dyspepsia Stop: 06/13/25 12:29 Dextrose (Dextrose 50% In Water 25 Gm/50 Ml Syringe) 0 gm IV-PUSH PRN PRN PRN Reason: Hypoglycemia Stop: 06/13/25 01:18 Empagliflozin (Empagliflozin 10 Mg Tablet) 10 mg PO QAM [facility]; Protocol Stop: 06/13/25 08:59 Last Admin: 06/16/24 09:08 Dose: 10 mg Enoxaparin Sodium (Enoxaparin 40 Mg/0.4 Ml Syringe) 40 mg SUBCUT DAILY@10 [facility] Stop: 06/13/25 09:59 Last Admin: 06/16/24 09:09 Dose: 40 mg Ergocalciferol (Ergocalciferol 1,250 Mcg (50,000 Units) Capsule) 1,250 mcg PO Mo@0800 [facility] Stop: 06/16/25 07:59 Last Admin: 06/16/24 09:08 Dose: 1,250 mcg Famotidine (Famotidine 20 Mg Tablet) 20 mg PO BID [facility] Stop: 06/13/25 12:44 Last Admin: 06/16/24 09:08 Dose: 20 mg Glucose (Dextrose 40% Gel 15 Gm Tube) 0 gm PO PRN PRN PRN Reason: Hypoglycemia Stop: 06/13/25 01:18 Magnesium Sulfate (Magnesium Sulf 2gm-*Swfi*) 2 gm in 50 mls @ 25 mls/hr IV DAILY PRN PRN Reason: Magnesium Level < 1.7 Stop: 06/13/25 00:33 Sodium Chloride (0.9% Sodium Chloride 1,000 Ml) 1,000 mls @ 75 mls/hr IV .[id number] [facility] Stop: 06/14/25 09:44 Last Admin: 06/16/24 03:04 Dose: 75 mls/hr Insulin Aspart (Insulin Aspart 300 Units/3 Ml Insuln.Pen) 0 units SUBCUT TID.WM.HS [facility]; Protocol Stop: 06/13/25 07:59 Last Admin: 06/16/24 09:07 Dose: Not Given Insulin Glargine (Insulin Glargine 300 Units/3 Ml Insuln.Pen) 40 units SUBCUT DAILY [facility] Stop: 06/13/25 08:59 Last Admin: 06/16/24 09:08 Dose: 40 units Levothyroxine Sodium (Levothyroxine 75 Mcg Tablet) 75 mcg PO DAILY.0630 [facility] Stop: 06/13/25 06:29 Last Admin: 06/16/24 06:32 Dose: 75 mcg Mirabegron (Mirabegron 25 Mg Tab.Er.24h) 25 mg PO DAILY [facility] Stop: 06/13/25 08:59 Last Admin: 06/16/24 09:08 Dose: 25 mg Ondansetron HCl (Ondansetron 4 Mg/2 Ml Vial) 4 mg IV-PUSH Q6H PRN PRN Reason: Nausea And Vomiting Stop: 06/13/25 00:33 Last Admin: 06/13/24 01:10 Dose: 4 mg Oxycodone/Acetaminophen (Oxycodone/Acetaminophen 5-325 Mg Tablet) 1 tab PO Q6H PRN PRN Reason: Pain Scale 4 - 7 Last Admin: 06/15/24 17:03 Dose: 1 tab Potassium Chloride (Potassium Chloride Er 20 Meq Tab.Er.Prt) 40 meq PO DAILY PRN PRN Reason: Hypokalemia Stop: 06/13/25 00:33 Sertraline HCl (Sertraline 50 Mg Tablet) 50 mg PO DAILY [facility] Stop: 06/13/25 08:59 Last Admin: 06/16/24 09:08 Dose: 50 mg Sodium Chloride (Sodium Chloride 0.9 % 10 Ml Syringe) 0 ml IV-PUSH PRN PRN PRN Reason: Flush Stop: 06/12/25 15:30 Last Admin: 06/13/24 01:02 Dose: 10 ml Sodium Chloride (Sodium Chloride 0.9 % 10 Ml Syringe) 0 ml IV-PUSH QSHIFT [facility] Stop: 06/13/25 05:59 Last Admin: 06/16/24 06:32 Dose: 10 ml Tolterodine Tartrate (Tolterodine 2 Mg Tablet) 2 mg PO BID [facility] Stop: 06/13/25 08:59 Last Admin: 06/16/24 09:08 Dose: 2 mg Trazodone HCl (Trazodone 100 Mg Tablet) 200 mg PO BID [facility] Stop: 06/13/25 08:59 Last Admin: 06/16/24 09:08 Dose: 200 mg Allergies Penicillins Allergy (Unknown, Verified 06/12/24 15:31) Hives Results - Nephrology Labs 06/16/24 06:40 06/16/24 06:40 Labs: 06/16/24 06:40 BUN 25 Creatinine 2.38 H Radiology Impressions Impressions - last 24 hours: Any impression(s) listed above is documentation that was entered by the reading physician into a diagnostic report(s) for Guerrero Ramos. I have reviewed the report(s) and am incorporating any findings in the treatment plan of this patient where applicable. A&P - Nephrology Assessment/Plan (1) Acute kidney injury superimposed on chronic kidney disease: Assessment/Problem Details: She has RIO likely due to the ATN in setting of prolonged hypovolemia. She has no evidence of obstructive uropathy on CAT scan. (2) CKD (chronic kidney disease) stage 3, GFR 30-59 ml/min: Assessment/Problem Details: She has a longstanding CKD due to DM and HTN baseline serum creatinine around 1.8 to 2.2 mg/dL. (3) Type 2 diabetes mellitus with diabetic chronic kidney disease: Assessment/Problem Details: She has insulin-dependent type 2 diabetes mellitus and takes insulin glargine athome. (4) Hypertensive chronic kidney disease with stage 1 through stage 4 chronic kidney disease, or unspecified chronic kidney disease: Assessment/Problem Details: Blood pressure is up with edema on IV fluid. She was taking amlodipine at home. Plan * Renal function is improving slowly over baseline. * Since blood pressure is elevated with edema, will stop IV fluid at this point. Patient stated that she is able to eat and drink. Advance diet as tolerated * Continue DM management as per the primary hospitalist team. The goal of blood sugar is between 100 to 150 mg/dL. * Continue amlodipine 2.5 mg daily, blood pressure is elevated however she still on IV fluid with edema. IV fluid was stopped. Amlodipine can be increased if systolic blood pressure still elevated after discontinuation of IV fluid Patient is able to eat and drink and she has no other symptoms. She can be discharged home from [facility] at any time and follow-up with Dr. Melgar in theoffice for CKD stage III/stage IV she may continue empagliflozin however will recommend discontinuation of meloxicam that she takes as outpatient Documented By: Jocelyn Garland MD 06/16/24 1051 Signed By: <Electronically signed by MD Jocelyn Garland> 06/16/24 1103 [facility] Work Phone: 1(371) 504-725708-18-2024 Progress note Author Promise Nova [facility] June 15, 2024 2:11pm Note Date/Time June 14, 2024 9: 38am [facility] [address] [place] [address] Hospitalist Progress Note Signed Patient: Guerrero Ramos MR#: [id number] : 1980 Acct:[id number] Age/Sex: 43 / F Adm Date: 4 Loc: Room: [address] [place] [address] Type: ADM IN Attending Dr: Promise Nova MD Copies to: ~ Date of Service: 06/14/2024 Subjective Subjective Narrative: Patient seen and examined. Today endorsing abdominal pain again. Lacking appetite and had only cereal for breakfast- no emesis or nausea. Does not complain of indigestions today. States passing flatus, last BM 06/12. No dysuria. Exam Physical Exam Vital Signs: Temp Pulse Resp BP Pulse Ox O2 Del Method O2 Flow Rate 97.8 F 79 18 146/99 H 99 Room Air 2 06/14/24 08:00 06/14/24 08:00 06/14/24 08:00 06/14/24 08:00 06/14/24 08:00 06/14/24 08:00 06/12/24 19:26 Narrative: CONST- alert, in bed, no distress at rest CARD- RRR no abnormal heart tones PULM- dimin without wheeze or rhonchi, RA ABD- S/NT, NABS, morbidly obese EXTREM- no edema BLE, calves nontender Objective Lab Results 06/14/24 04:59 06/14/24 06:46 Microbiology Results Microbiology 06/12/24 19:30 Urine - Clean-Voided Midstream Urine Culture - Final 30,000 colonies/ml mixed bacterial skin contaminants including mixed gram negative bacilli - 2 Days Meds Allergies and Active Meds Allergies Penicillins Allergy (Unknown, Verified 06/12/24 15:31) Hives Active Meds: Active Medications Generic Name Dose Route Start Last Admin Trade Name Freq PRN Reason Stop Dose Admin Acetaminophen 650 mg 06/13/24 00:31 06/14/24 09:11 Acetaminophen 325 Mg Tablet PO 06/13/25 00:30 650 mg Q6HR PRN Administration Pain Scale 1 - 3 or fever Alprazolam 0.5 mg 06/13/24 09:00 06/14/24 09:13 Alprazolam 0.5 Mg Tablet PO 12/10/24 08:59 0.5 mg DAILY [facility] Administration Amlodipine Besylate 2.5 mg 06/13/24 09:00 06/14/24 09:12 Amlodipine 2.5 Mg Tablet PO 06/13/25 08:59 2.5 mg DAILY [facility] Administration Atorvastatin Calcium 40 mg 06/13/24 22:00 06/13/24 21:10 Atorvastatin 40 Mg Tablet PO 06/13/25 21:59 40 mg HS [facility] Administration Calcium Carbonate 1,000 mg 06/13/24 12:30 Calcium Carbonate 500 Mg Tab.Chew PO 06/13/25 12:29 Q4H PRN Dyspepsia Dextrose 0 gm 06/13/24 01:19 Dextrose 50% In Water 25 Gm/50 Ml Syringe IV-PUSH 06/13/25 01:18 PRN PRN Hypoglycemia Empagliflozin 10 mg 06/13/24 09:00 06/14/24 09:12 Empagliflozin 10 Mg Tablet PO 06/13/25 08:59 10 mg QAM [facility] Administration Protocol Enoxaparin Sodium 40 mg 06/13/24 10:00 06/13/24 09:17 Enoxaparin 40 Mg/0.4 Ml Syringe SUBCUT 06/13/25 09:59 Not Given DAILY@10 [facility] Ergocalciferol 1,250 mcg 06/16/24 08:00 Ergocalciferol 1,250 Mcg (50,000 Units) Capsule PO 06/16/25 07:59 Mo@0800 [facility] Famotidine 20 mg 06/13/24 12:45 06/14/24 09:12 Famotidine 20 Mg Tablet PO 06/13/25 12:44 20 mg BID [facility] Administration Glucose 0 gm 06/13/24 01:19 Dextrose 40% Gel 15 Gm Tube PO 06/13/25 01:18 PRN PRN Hypoglycemia Magnesium Sulfate 2 gm in 50 mls @ 25 mls/hr 06/13/24 00:34 Magnesium Sulf 2gm-*Swfi* IV 06/13/25 00:33 DAILY PRN Magnesium Level < 1.7 Ceftriaxone Sodium 1 gm in 50 mls @ 100 mls/hr 06/13/24 09:00 06/14/24 09:14 Rocephin IV 100 mls/hr Q24H [facility] Administration Insulin Aspart 0 units 06/13/24 08:00 06/14/24 09:13 Insulin Aspart 300 Units/3 Ml Insuln.Pen SUBCUT 06/13/25 07:59 Not Given TID.WM.HS [facility] Protocol Insulin Glargine 40 units 06/13/24 09:00 06/14/24 09:15 Insulin Glargine 300 Units/3 Ml Insuln.Pen SUBCUT 06/13/25 08:59 40 units DAILY [facility] Administration Levothyroxine Sodium 75 mcg 06/13/24 06:30 06/14/24 05:34 Levothyroxine 75 Mcg Tablet PO 06/13/25 06:29 Not Given DAILY.0630 [facility] Mirabegron 25 mg 06/13/24 09:00 06/14/24 09:13 Mirabegron 25 Mg Tab.Er.24h PO 06/13/25 08:59 25 mg DAILY [facility] Administration Phentermine 37.5 Mg 18.75 mg 06/13/24 09:00 06/13/24 09:17 Tablet PO 06/13/25 08:59 Not Given DAILY [facility] Ondansetron HCl 4 mg 06/13/24 00:34 06/13/24 01:10 Ondansetron 4 Mg/2 Ml Vial IV-PUSH 06/13/25 00:33 4 mg Q6H PRN Administration Nausea And Vomiting Oxycodone/Acetaminophen 1 tab 06/13/24 00:34 06/14/24 05:03 Oxycodone/Acetaminophen 5-325 Mg Tablet PO 1 tab Q6H PRN Administration Pain Scale 4 - 7 Potassium Chloride 40 meq 06/13/24 00:34 Potassium Chloride Er 20 Meq Tab.Er.Prt PO 06/13/25 00:33 DAILY PRN Hypokalemia Sertraline HCl 50 mg 06/13/24 09:00 06/14/24 09:12 Sertraline 50 Mg Tablet PO 06/13/25 08:59 50 mg DAILY [facility] Administration Sodium Chloride 0 ml 06/12/24 15:31 06/13/24 01:02 Sodium Chloride 0.9 % 10 Ml Syringe IV-PUSH 06/12/25 15:30 10 ml PRN PRN Administration Flush Sodium Chloride 0 ml 06/13/24 06:00 06/14/24 05:04 Sodium Chloride 0.9 % 10 Ml Syringe IV-PUSH 06/13/25 05:59 10 ml QSHIFT [facility] Administration Tolterodine Tartrate 2 mg 06/13/24 09:00 06/13/24 20:36 Tolterodine 2 Mg Tablet PO 06/13/25 08:59 2 mg BID [facility] Administration Trazodone HCl 200 mg 06/13/24 09:00 06/14/24 09:12 Trazodone 100 Mg Tablet PO 06/13/25 08:59 200 mg BID [facility] Administration A&P - Hospitalist Assessment/Plan (1) Acute kidney injury superimposed on chronic kidney disease: (2) Dehydration: (3) UTI (urinary tract infection), bacterial: (4) GERD (gastroesophageal reflux disease): (5) BMI 50.0-59.9, adult: (6) Type 2 diabetes mellitus: Plan RIO on CKD stage IV baseline Cr~1.8 Dehydration -IVF restarted with worsening renal function, could be contrast induced, good POintake, trend labs -nephrology consult pending UTI ruled out Abdominal pain GERD Ventral hernia History of colon cancer s/p bowel resection -Ceftriaxone stopped- recd 3 doses. Note patient also on empagliflozin as well with glucosuria -pending surgery [facility] for ventral hernia once achieves 30# weight loss (last [facility] visit 04/10/24- follow up in June) -CT abd/pelvis- no bowel obstruction or obstructive uropathy, ventral wall hernias nonobstructed loops of bowel and intraperitoneal fat- similar to previous -Famotine and prn Tums Chronic conditions Morbid obesity (BMI 60)-phentermine held Anxiety/depression-alprazolam Hyperlipidemia- atorvastatin Hypertension- amlodipine. BP reveiwed and elevated today, pain may be contributory Diabetes- empagliflozin. check A1c Documented By: Libra Li APRN 05/29 05/21 0934 Signed By: <Electronically signed by DEBORAH Li> 06/14/24 1219 <Electronically signed by Promise Nova MD> 06/15/24 14[address] [facility] Work Phone: [phone]) 552-414908-18-2024 Progress note Author Promise Nova [facility] June 15, 2024 2:11pm Note Date/Time June 15, 2024 10 :50am [facility] [address] [place] [address] Hospitalist Progress Note Signed Patient: Guerrero Ramos MR#: [id number] : 1980 Acct:[id number] Age/Sex: 43 / F Adm Date: 4 Loc: Room: [address] [place] [address] Type: ADM IN Attending Dr: Promise Nova MD Copies to: ~ Date of Service: 06/15/2024 Subjective Subjective Narrative: Patient seen and examined. She is in bed, states she is only getting up for going to bathroom. Nursing indicates she sleeps alot. States she only ate cereal again today. Encouraged her to drink water, she has 2 cans of pop on table currently. Still with abdominal pain but improved from yesterday- generalized. Denies shortness of breath of chest pain. Exam Physical Exam Vital Signs: Temp Pulse Resp BP Pulse Ox O2 Del Method O2 Flow Rate 97.6 F 88 17 161/98 H 99 Room Air 2 06/15/24 08:00 06/15/24 08:00 06/15/24 08:00 06/15/24 08:00 06/15/24 08:00 06/15/24 08:00 06/12/24 19:26 Narrative: CONST- alert, in bed CARD- RRR no abnormal heart tones PULM- dimin without wheeze or rhonchi, RA ABD- Soft, generalized tenderness,, NABS, morbidly obese EXTREM- no edema BLE, calves nontender Objective Lab Results 06/15/24 06:24 06/15/24 06:24 Microbiology Results Microbiology 06/12/24 19:30 Urine - Clean-Voided Midstream Urine Culture - Final 30,000 colonies/ml mixed bacterial skin contaminants including mixed gram negative bacilli - 2 Days Meds Allergies and Active Meds Allergies Penicillins Allergy (Unknown, Verified 06/12/24 15:31) Hives Active Meds: Active Medications Generic Name Dose Route Start Last Admin Trade Name Freq PRN Reason Stop Dose Admin Acetaminophen 650 mg 06/13/24 00:31 06/15/24 09:01 Acetaminophen 325 Mg Tablet PO 06/13/25 00:30 650 mg Q6HR PRN Administration Pain Scale 1 - 3 or fever Alprazolam 0.5 mg 06/13/24 09:00 06/15/24 08:55 Alprazolam 0.5 Mg Tablet PO 12/10/24 08:59 0.5 mg DAILY [facility] Administration Amlodipine Besylate 2.5 mg 06/13/24 09:00 06/15/24 08:55 Amlodipine 2.5 Mg Tablet PO 06/13/25 08:59 2.5 mg DAILY [facility] Administration Atorvastatin Calcium 40 mg 06/13/24 22:00 06/14/24 21:08 Atorvastatin 40 Mg Tablet PO 06/13/25 21:59 40 mg HS [facility] Administration Calcium Carbonate 1,000 mg 06/13/24 12:30 Calcium Carbonate 500 Mg Tab.Chew PO 06/13/25 12:29 Q4H PRN Dyspepsia Dextrose 0 gm 06/13/24 01:19 Dextrose 50% In Water 25 Gm/50 Ml Syringe IV-PUSH 06/13/25 01:18 PRN PRN Hypoglycemia Empagliflozin 10 mg 06/13/24 09:00 06/15/24 08:54 Empagliflozin 10 Mg Tablet PO 06/13/25 08:59 10 mg QAM [facility] Administration Protocol Enoxaparin Sodium 40 mg 06/13/24 10:00 06/15/24 09:01 Enoxaparin 40 Mg/0.4 Ml Syringe SUBCUT 06/13/25 09:59 40 mg DAILY@10 [facility] Administration Ergocalciferol 1,250 mcg 06/16/24 08:00 Ergocalciferol 1,250 Mcg (50,000 Units) Capsule PO 06/16/25 07:59 Mo@0800 [facility] Famotidine 20 mg 06/13/24 12:45 06/15/24 08:55 Famotidine 20 Mg Tablet PO 06/13/25 12:44 20 mg BID [facility] Administration Glucose 0 gm 06/13/24 01:19 Dextrose 40% Gel 15 Gm Tube PO 06/13/25 01:18 PRN PRN Hypoglycemia Magnesium Sulfate 2 gm in 50 mls @ 25 mls/hr 06/13/24 00:34 Magnesium Sulf 2gm-*Swfi* IV 06/13/25 00:33 DAILY PRN Magnesium Level < 1.7 Sodium Chloride 1,000 mls @ 75 mls/hr 06/14/24 09:45 06/15/24 02:36 0.9% Sodium Chloride 1,000 Ml IV 06/14/25 09:44 125 mls/hr .[id number] [facility] Administration Insulin Aspart 0 units 06/13/24 08:00 06/15/24 08:53 Insulin Aspart 300 Units/3 Ml Insuln.Pen SUBCUT 06/13/25 07:59 Not Given TID.WM.HS [facility] Protocol Insulin Glargine 40 units 06/13/24 09:00 06/15/24 09:02 Insulin Glargine 300 Units/3 Ml Insuln.Pen SUBCUT 06/13/25 08:59 40 units DAILY [facility] Administration Levothyroxine Sodium 75 mcg 06/13/24 06:30 06/15/24 06:02 Levothyroxine 75 Mcg Tablet PO 06/13/25 06:29 75 mcg DAILY.0630 [facility] Administration Mirabegron 25 mg 06/13/24 09:00 06/15/24 08:53 Mirabegron 25 Mg Tab.Er.24h PO 06/13/25 08:59 25 mg DAILY [facility] Administration Ondansetron HCl 4 mg 06/13/24 00:34 06/13/24 01:10 Ondansetron 4 Mg/2 Ml Vial IV-PUSH 06/13/25 00:33 4 mg Q6H PRN Administration Nausea And Vomiting Oxycodone/Acetaminophen 1 tab 06/13/24 00:34 06/15/24 03:42 Oxycodone/Acetaminophen 5-325 Mg Tablet PO 1 tab Q6H PRN Administration Pain Scale 4 - 7 Potassium Chloride 40 meq 06/13/24 00:34 Potassium Chloride Er 20 Meq Tab.Er.Prt PO 06/13/25 00:33 DAILY PRN Hypokalemia Sertraline HCl 50 mg 06/13/24 09:00 06/15/24 08:55 Sertraline 50 Mg Tablet PO 06/13/25 08:59 50 mg DAILY [facility] Administration Sodium Chloride 0 ml 06/12/24 15:31 06/13/24 01:02 Sodium Chloride 0.9 % 10 Ml Syringe IV-PUSH 06/12/25 15:30 10 ml PRN PRN Administration Flush Sodium Chloride 0 ml 06/13/24 06:00 06/15/24 06:01 Sodium Chloride 0.9 % 10 Ml Syringe IV-PUSH 06/13/25 05:59 10 ml QSHIFT [facility] Administration Tolterodine Tartrate 2 mg 06/13/24 09:00 06/15/24 08:55 Tolterodine 2 Mg Tablet PO 06/13/25 08:59 2 mg BID [facility] Administration Trazodone HCl 200 mg 06/13/24 09:00 06/15/24 08:54 Trazodone 100 Mg Tablet PO 06/13/25 08:59 200 mg BID [facility] Administration A&P - Hospitalist Assessment/Plan (1) Acute kidney injury superimposed on chronic kidney disease: (2) Dehydration: (3) UTI (urinary tract infection), bacterial: (4) GERD (gastroesophageal reflux disease): (5) BMI 50.0-59.9, adult: (6) Type 2 diabetes mellitus: Plan RIO on CKD stage IV baseline Cr~1.8-2.2 Dehydration -IVF, could be contrast induced from 06/12, adequate PO intake, trend labs -nephrology consult appreciated UTI ruled out Abdominal pain GERD Ventral hernia History of colon cancer s/p bowel resection -Ceftriaxone stopped- recd 3 doses. Note patient also on empagliflozin as well with glucosuria -pending surgery [facility] for ventral hernia once achieves 30# weight loss (last [facility] visit 04/10/24- follow up in June) -CT abd/pelvis- no bowel obstruction or obstructive uropathy, ventral wall hernias nonobstructed loops of bowel and intraperitoneal fat- similar to previous -Famotine and prn Tums Chronic conditions Morbid obesity (BMI 60)-phentermine held Anxiety/depression-alprazolam Hyperlipidemia- atorvastatin Hypertension- amlodipine. BP reveiwed and elevated today, pain may be contributory Diabetes- empagliflozin. check A1c DISCHARGE planning- dependent on renal function, therapy ordered 06/15 with patient remaining in bed, previous plan was homegoing Documented By: Libra Li APRN 05/29 06/21 1050 Signed By: <Electronically signed by DEBORAH Li> 06/15/24 1235 <Electronically signed by Promise Nova MD> 06/15/24 1415 [facility] Work Phone: 1(113) 560-499508-18-2024 Progress note Author Allison Melgar [facility] June 15, 2024 12:07pm Note Date/Time June 15, 2024 12 :07pm [facility] [address] [place] [address] Nephrology Progress Note Signed Patient: Guerrero Ramos MR#: [id number] : 1980 Acct:[id number] Age/Sex: 43 / F Adm Date: 4 Loc: Room: [address] [place] [address] Type: ADM IN Attending Dr: Promise Nova MD Copies to: ~ Date of Service: 06/15/2024 Subjective Subjective Narrative: This is a 43-year-old female well-known to me from outpatient clinic follows in our office for CKD care was presented to the emergency room for abdominal pain nausea vomiting. Patient has multiple comorbidities including morbid obesity, anxiety depression, ventral hernia, DM, HTN, HLD, colon cancer s/p resection andsecondary hyperparathyroidism. On evaluation in emergency room patient was found to have RIO with elevated serum creatinine 2.8 g/dL above her baseline 2.0mg/dL. She had a CAT scan abdomen pelvis which did not show any bowel obstruction or obstructive uropathy. Patient was started on gentle fluid resuscitation by the admitting team. Her serum creatinine went down to 2.5 mg/dL with fluid resuscitation so it was stopped. Her serum creatinine went up again to 2.8 mg/dL so IV fluid was started and nephrology is consulted. Interim history Patient was seen and examined at bedside. As she is feeling better denies any chest pain palpation cough nausea vomit diarrhea and shortness of breath. She reported that she has voided multiple times. Her bladder scan showed no evidence of urinary retention. She likely has RIO due to the ATN in setting of prolonged hypovolemia. Renal function is slowly improving with IV fluid resuscitation. Exam Physical Exam Vital Signs: Temp Pulse Resp BP Pulse Ox O2 Del Method O2 Flow Rate 97.6 F 71 17 122/84 96 Room Air 2 06/15/24 08:00 06/15/24 11:11 06/15/24 11:11 06/15/24 11:11 06/15/24 11:11 06/15/24 11:11 06/12/24 19:26 Narrative: General: Appears comfortable and not in distress Heart: S1-S2, no rub Lung: Bilateral air entry, no wheezing or crackles Abdomen: Soft, positive bowel sounds Extremities: No edema, no cyanosis Head: Atraumatic, normocephalic Ear: No gross hearing Deficit or external ear redness Eyes: No pallor or redness Neck: No JVD or visible mass Skin: No rashes , warm to touch PROJECT ACCOUNTANT: Awake,Alert, following simple command Musculoskeletal: No swelling or limitation of movement of the large joints Psychiatric: Cooperative, normal mood and affect Objective Intake and Output I&O: Intake & Output 06/12/24 06/13/24 06/14/24 06/15/24 23:59 23:59 23:59 23:59 Intake Total 550 / 550 1600 / 1600 2240 / 2240 Balance 550 / 550 1600 / 1600 2240 / 2240 Weight 150.8 kg 151.5 kg 152.3 kg 152.8 kg Meds and Allergies Meds: Active Medications Acetaminophen (Acetaminophen 325 Mg Tablet) 650 mg PO Q6HR PRN PRN Reason: Pain Scale 1 - 3 or fever Stop: 06/13/25 00:30 Last Admin: 06/15/24 09:01 Dose: 650 mg Alprazolam (Alprazolam 0.5 Mg Tablet) 0.5 mg PO DAILY [facility]ANTASMA Stop: 12/10/24 08:59 Last Admin: 06/15/24 08:55 Dose: 0.5 mg Amlodipine Besylate (Amlodipine 2.5 Mg Tablet) 2.5 mg PO DAILY [facility] Stop: 06/13/25 08:59 Last Admin: 06/15/24 08:55 Dose: 2.5 mg Atorvastatin Calcium (Atorvastatin 40 Mg Tablet) 40 mg PO HS [facility] Stop: 06/13/25 21:59 Last Admin: 06/14/24 21:08 Dose: 40 mg Calcium Carbonate (Calcium Carbonate 500 Mg Tab.Chew) 1,000 mg PO Q4H PRN PRN Reason: Dyspepsia Stop: 06/13/25 12:29 Dextrose (Dextrose 50% In Water 25 Gm/50 Ml Syringe) 0 gm IV-PUSH PRN PRN PRN Reason: Hypoglycemia Stop: 06/13/25 01:18 Empagliflozin (Empagliflozin 10 Mg Tablet) 10 mg PO QAM [facility]; Protocol Stop: 06/13/25 08:59 Last Admin: 06/15/24 08:54 Dose: 10 mg Enoxaparin Sodium (Enoxaparin 40 Mg/0.4 Ml Syringe) 40 mg SUBCUT DAILY@10 [facility] Stop: 06/13/25 09:59 Last Admin: 06/15/24 09:01 Dose: 40 mg Ergocalciferol (Ergocalciferol 1,250 Mcg (50,000 Units) Capsule) 1,250 mcg PO Mo@0800 [facility] Stop: 06/16/25 07:59 Famotidine (Famotidine 20 Mg Tablet) 20 mg PO BID [facility] Stop: 06/13/25 12:44 Last Admin: 06/15/24 08:55 Dose: 20 mg Glucose (Dextrose 40% Gel 15 Gm Tube) 0 gm PO PRN PRN PRN Reason: Hypoglycemia Stop: 06/13/25 01:18 Magnesium Sulfate (Magnesium Sulf 2gm-*Swfi*) 2 gm in 50 mls @ 25 mls/hr IV DAILY PRN PRN Reason: Magnesium Level < 1.7 Stop: 06/13/25 00:33 Sodium Chloride (0.9% Sodium Chloride 1,000 Ml) 1,000 mls @ 75 mls/hr IV .[id number] [facility] Stop: 06/14/25 09:44 Last Admin: 06/15/24 11:10 Dose: 75 mls/hr Insulin Aspart (Insulin Aspart 300 Units/3 Ml Insuln.Pen) 0 units SUBCUT TID.WM.HS [facility]; Protocol Stop: 06/13/25 07:59 Last Admin: 06/15/24 08:53 Dose: Not Given Insulin Glargine (Insulin Glargine 300 Units/3 Ml Insuln.Pen) 40 units SUBCUT DAILY [facility] Stop: 06/13/25 08:59 Last Admin: 06/15/24 09:02 Dose: 40 units Levothyroxine Sodium (Levothyroxine 75 Mcg Tablet) 75 mcg PO DAILY.0630 [facility] Stop: 06/13/25 06:29 Last Admin: 06/15/24 06:02 Dose: 75 mcg Mirabegron (Mirabegron 25 Mg Tab.Er.24h) 25 mg PO DAILY [facility] Stop: 06/13/25 08:59 Last Admin: 06/15/24 08:53 Dose: 25 mg Ondansetron HCl (Ondansetron 4 Mg/2 Ml Vial) 4 mg IV-PUSH Q6H PRN PRN Reason: Nausea And Vomiting Stop: 06/13/25 00:33 Last Admin: 06/13/24 01:10 Dose: 4 mg Oxycodone/Acetaminophen (Oxycodone/Acetaminophen 5-325 Mg Tablet) 1 tab PO Q6H PRN PRN Reason: Pain Scale 4 - 7 Last Admin: 06/15/24 03:42 Dose: 1 tab Potassium Chloride (Potassium Chloride Er 20 Meq Tab.Er.Prt) 40 meq PO DAILY PRN PRN Reason: Hypokalemia Stop: 06/13/25 00:33 Sertraline HCl (Sertraline 50 Mg Tablet) 50 mg PO DAILY [facility] Stop: 06/13/25 08:59 Last Admin: 06/15/24 08:55 Dose: 50 mg Sodium Chloride (Sodium Chloride 0.9 % 10 Ml Syringe) 0 ml IV-PUSH PRN PRN PRN Reason: Flush Stop: 06/12/25 15:30 Last Admin: 06/13/24 01:02 Dose: 10 ml Sodium Chloride (Sodium Chloride 0.9 % 10 Ml Syringe) 0 ml IV-PUSH QSHIFT [facility] Stop: 06/13/25 05:59 Last Admin: 06/15/24 06:01 Dose: 10 ml Tolterodine Tartrate (Tolterodine 2 Mg Tablet) 2 mg PO BID [facility] Stop: 06/13/25 08:59 Last Admin: 06/15/24 08:55 Dose: 2 mg Trazodone HCl (Trazodone 100 Mg Tablet) 200 mg PO BID [facility] Stop: 06/13/25 08:59 Last Admin: 06/15/24 08:54 Dose: 200 mg Allergies Penicillins Allergy (Unknown, Verified 06/12/24 15:31) Hives Results - Nephrology Labs 06/15/24 06:24 06/15/24 06:24 Labs: 06/15/24 06:24 BUN 28 H Creatinine 2.48 H Radiology Impressions Impressions - last 24 hours: Any impression(s) listed above is documentation that was entered by the reading physician into a diagnostic report(s) for Guerrero Ramos. I have reviewed the report(s) and am incorporating any findings in the treatment plan of this patient where applicable. A&P - Nephrology Assessment/Plan (1) Acute kidney injury superimposed on chronic kidney disease: Assessment/Problem Details: She has RIO likely due to the ATN in setting of prolonged hypovolemia. She has no evidence of obstructive uropathy on CAT scan. (2) CKD (chronic kidney disease) stage 3, GFR 30-59 ml/min: Assessment/Problem Details: She has a longstanding CKD due to DM and HTN baseline serum creatinine around 1.8 to 2.2 mg/dL. (3) Type 2 diabetes mellitus with diabetic chronic kidney disease: Assessment/Problem Details: She has insulin-dependent type 2 diabetes mellitus and takes insulin glargine athome. (4) Hypertensive chronic kidney disease with stage 1 through stage 4 chronic kidney disease, or unspecified chronic kidney disease: Assessment/Problem Details: Blood pressure is controlled. She was taking amlodipine at home. Plan * Continue to fluid resuscitation but will reduce rate at 75 mL/h.. * Continue DM management as per the primary hospitalist team. The goal of blood sugar is between 100 to 150 mg/dL. * Continue amlodipine * Check renal function daily and monitor input output * Documented By: Allison Melgar MD 06/15/24 1202 Signed By: <Electronically signed by Allison Melgar MD> 06/15/24 1209 [facility] Work Phone: 1(852) 270-491008-17-2024 Consult note Author Allison Melgar [facility] June 14, 2024 10:59am Note Date/Time June 14, 2024 10 :37am [facility] [address] [place] [address] Nephrology Consult Note Signed Patient: Guerrero Ramos MR#: [id number] : 1980 Acct:[id number] Age/Sex: 43 / F Adm Date: 4 Loc: Room: [address] [place] [address] Type: ADM INOo Attending Dr: Promise Nova MD Copies to: MD Promise Person MD Valerie J Castillo NP-C~ Providers Consult Date: 06/14/24 Requesting Provider: Promise Nova MD Primary Care Provider: NANCY Sharma HPI Reason for Consult: RIO on CKD History of Present Illness: This is a 43-year-old female well-known to me from outpatient clinic follows in our office for CKD care was presented to the emergency room for abdominal pain nausea vomiting. Patient has multiple comorbidities including morbid obesity, anxiety depression, ventral hernia, DM, HTN, HLD, colon cancer s/p resection andsecondary hyperparathyroidism. On evaluation in emergency room patient was found to have RIO with elevated serum creatinine 2.8 g/dL above her baseline 2.0mg/dL. She had a CAT scan abdomen pelvis which did not show any bowel obstruction or obstructive uropathy. Patient was started on gentle fluid resuscitation by the admitting team. Her serum creatinine went down to 2.5 mg/dL with fluid resuscitation so it was stopped. Her serum creatinine went up again to 2.8 mg/dL so IV fluid was started and nephrology is consulted. Patientwas seen and examined at bedside reported that she is voiding to 3 times a day. Review of Systems Review of Systems All other systems reviewed & are negative unless noted below or in HPI Review of systems: General: denies any weakness, weight loss Cardiovascular: denies any chest pain, palpitation Pulmonary: denies any cough, hemoptysis Gastrointestinal: denies any nausea, vomiting, diarrhea Neurological :denies any headache, numbness, weakness Endocrine: denies any polyuria, polydipsia Musculoskeletal: denies any joint pain, muscle ache Dermatological: denies any itching or rash Psychological: Denies any suicidal homicidal ideation All the other review of systems were reviewed in detail and negative [facility] Medical History (Updated 06/14/24 @ 10:48 by Allison Melgar MD) Type 2 diabetes mellitus with diabetic chronic kidney disease CKD (chronic kidney disease) stage 3, GFR 30-59 ml/min Nephrolithiasis Anemia of renal disease BMI 50.0-59.9, adult Sleep apnea Proteinuria History of colon cancer Hyperlipidemia Anxiety Depression Vertigo Hernia of abdominal cavity Colon cancer 2016, currently in remission Surgical History Hx of cholecystectomy Family History Father Cancer Legacy FamHx Problem: Diagnosed with Cancer Mother Hypertension Social History Smoking Status: Never smoker Substance Use Type: None Meds Medications & Allergies Allergies Penicillins Allergy (Unknown, Verified 06/12/24 15:31) Hives Home Medications alprazolam 0.5 mg tablet (Xanax) 0.5 mg PO DAILY 09/23/17 [History Confirmed 06/12/24] meclizine 25 mg tablet 25 mg PO BID 09/23/17 [History Confirmed 06/12/24] sertraline 50 mg tablet (Zoloft) 50 mg PO DAILY 09/23/17 [History Confirmed 06/12/24] rosuvastatin 20 mg tablet 20 mg PO HS 08/20/22 [History Confirmed 06/12/24] trazodone 100 mg tablet 200 mg PO BID 08/20/22 [History Confirmed 06/12/24] ergocalciferol (vitamin D2) 1,250 mcg (50,000 unit) capsule 1,250 mcg PO QWEEK 08/20/23 [History Confirmed 06/12/24] insulin glargine U-300 conc 300 unit/mL (1.5 mL) subcutaneous pen (Toutrinidad SoloStar U-300 Insulin) 50 unit subcut DAILY 08/20/23 [History Confirmed 06/12/24] levothyroxine 75 mcg tablet 75 mcg PO QAM 02/08/24 [History Confirmed 06/12/24] mirabegron 25 mg tablet,extended release 24 hr (Myrbetriq) 25 mg PO DAILY 02/08/24 [History Confirmed 06/12/24] pen needle, diabetic 31 gauge x 15/64 02/08/24 [History Confirmed 06/12/24] tolterodine 2 mg tablet 2 mg PO BID 02/08/24 [History Confirmed 06/12/24] amlodipine 2.5 mg tablet 2.5 mg PO DAILY #90 tabs 02/14/24 [Rx Confirmed 06/12/24] empagliflozin 10 mg tablet (Jardiance) 10 mg PO QAM 05/10/24 [History Confirmed 06/12/24] meloxicam 7.5 mg tablet 7.5 mg PO DAILY 06/12/24 [History Confirmed 06/12/24] phentermine 37.5 mg tablet 18.75 mg PO DAILY 06/12/24 [History Confirmed 06/12/24] Active Medications: Active Medications Acetaminophen (Acetaminophen 325 Mg Tablet) 650 mg PO Q6HR PRN PRN Reason: Pain Scale 1 - 3 or fever Stop: 06/13/25 00:30 Last Admin: 06/14/24 09:11 Dose: 650 mg Alprazolam (Alprazolam 0.5 Mg Tablet) 0.5 mg PO DAILY [facility] Stop: 12/10/24 08:59 Last Admin: 06/14/24 09:13 Dose: 0.5 mg Amlodipine Besylate (Amlodipine 2.5 Mg Tablet) 2.5 mg PO DAILY [facility] Stop: 06/13/25 08:59 Last Admin: 06/14/24 09:12 Dose: 2.5 mg Atorvastatin Calcium (Atorvastatin 40 Mg Tablet) 40 mg PO HS [facility] Stop: 06/13/25 21:59 Last Admin: 06/13/24 21:10 Dose: 40 mg Calcium Carbonate (Calcium Carbonate 500 Mg Tab.Chew) 1,000 mg PO Q4H PRN PRN Reason: Dyspepsia Stop: 06/13/25 12:29 Dextrose (Dextrose 50% In Water 25 Gm/50 Ml Syringe) 0 gm IV-PUSH PRN PRN PRN Reason: Hypoglycemia Stop: 06/13/25 01:18 Empagliflozin (Empagliflozin 10 Mg Tablet) 10 mg PO [facility]; Protocol Stop: 06/13/25 08:59 Last Admin: 06/14/24 09:12 Dose: 10 mg Enoxaparin Sodium (Enoxaparin 40 Mg/0.4 Ml Syringe) 40 mg SUBCUT DAILY@10 [facility] Stop: 06/13/25 09:59 Last Admin: 06/14/24 10:04 Dose: 40 mg Ergocalciferol (Ergocalciferol 1,250 Mcg (50,000 Units) Capsule) 1,250 mcg PO Mo@0800 [facility] Stop: 06/16/25 07:59 Famotidine (Famotidine 20 Mg Tablet) 20 mg PO BID [facility] Stop: 06/13/25 12:44 Last Admin: 06/14/24 09:12 Dose: 20 mg Glucose (Dextrose 40% Gel 15 Gm Tube) 0 gm PO PRN PRN PRN Reason: Hypoglycemia Stop: 06/13/25 01:18 Magnesium Sulfate (Magnesium Sulf 2gm-*Swfi*) 2 gm in 50 mls @ 25 mls/hr IV DAILY PRN PRN Reason: Magnesium Level < 1.7 Stop: 06/13/25 00:33 Ceftriaxone Sodium (Rocephin) 1 gm in 50 mls @ 100 mls/hr IV Q24H [facility] Last Admin: 06/14/24 09:14 Dose: 100 mls/hr Sodium Chloride (0.9% Sodium Chloride 1,000 Ml) 1,000 mls @ 125 mls/hr IV .Q8H [facility] Stop: 06/14/25 09:44 Last Admin: 06/14/24 10:04 Dose: 125 mls/hr Insulin Aspart (Insulin Aspart 300 Units/3 Ml Insuln.Pen) 0 units SUBCUT TID..[facility]; Protocol Stop: 06/13/25 07:59 Last Admin: 06/14/24 09:13 Dose: Not Given Insulin Glargine (Insulin Glargine 300 Units/3 Ml Insuln.Pen) 40 units SUBCUT DAILY [facility] Stop: 06/13/25 08:59 Last Admin: 06/14/24 09:15 Dose: 40 units Levothyroxine Sodium (Levothyroxine 75 Mcg Tablet) 75 mcg PO DAILY.0630 [facility] Stop: 06/13/25 06:29 Last Admin: 06/14/24 05:34 Dose: Not Given Mirabegron (Mirabegron 25 Mg Tab.Er.24h) 25 mg PO DAILY [facility] Stop: 06/13/25 08:59 Last Admin: 06/14/24 09:13 Dose: 25 mg Ondansetron HCl (Ondansetron 4 Mg/2 Ml Vial) 4 mg IV-PUSH Q6H PRN PRN Reason: Nausea And Vomiting Stop: 06/13/25 00:33 Last Admin: 06/13/24 01:10 Dose: 4 mg Oxycodone/Acetaminophen (Oxycodone/Acetaminophen 5-325 Mg Tablet) 1 tab PO Q6H PRN PRN Reason: Pain Scale 4 - 7 Last Admin: 06/14/24 05:03 Dose: 1 tab Potassium Chloride (Potassium Chloride Er 20 Meq Tab.Er.Prt) 40 meq PO DAILY PRN PRN Reason: Hypokalemia Stop: 06/13/25 00:33 Sertraline HCl (Sertraline 50 Mg Tablet) 50 mg PO DAILY [facility] Stop: 06/13/25 08:59 Last Admin: 06/14/24 09:12 Dose: 50 mg Sodium Chloride (Sodium Chloride 0.9 % 10 Ml Syringe) 0 ml IV-PUSH PRN PRN PRN Reason: Flush Stop: 06/12/25 15:30 Last Admin: 06/13/24 01:02 Dose: 10 ml Sodium Chloride (Sodium Chloride 0.9 % 10 Ml Syringe) 0 ml IV-PUSH QSHIFT [facility] Stop: 06/13/25 05:59 Last Admin: 06/14/24 05:04 Dose: 10 ml Tolterodine Tartrate (Tolterodine 2 Mg Tablet) 2 mg PO BID [facility] Stop: 06/13/25 08:59 Last Admin: 06/14/24 10:03 Dose: 2 mg Trazodone HCl (Trazodone 100 Mg Tablet) 200 mg PO BID [facility] Stop: 06/13/25 08:59 Last Admin: 06/14/24 09:12 Dose: 200 mg Exam Physical Exam Vital Signs: Temp Pulse Resp BP Pulse Ox O2 Del Method O2 Flow Rate 97.8 F 79 18 146/99 H 99 Room Air 2 06/14/24 08:00 06/14/24 08:00 06/14/24 08:00 06/14/24 08:00 06/14/24 08:00 06/14/24 08:00 06/12/24 19:26 Narrative: General: Appears comfortable and not in distress Heart: S1-S2, no rub Lung: Bilateral air entry, no wheezing or crackles Abdomen: Soft, positive bowel sounds Extremities: No edema, no cyanosis Head: Atraumatic, normocephalic Ear: No gross hearing Deficit or external ear redness Eyes: No pallor or redness Neck: No JVD or visible mass Skin: No rashes , warm to touch PROJECT ACCOUNTANT: Awake,Alert, following simple command Musculoskeletal: No swelling or limitation of movement of the large joints Psychiatric: Cooperative, normal mood and affect Results - Nephrology Labs 06/14/24 04:59 06/14/24 06:46 Labs: 06/14/24 04:59 BUN 37 H Creatinine 2.83 H Radiology Impressions Impressions - last 24 hours: Any impression(s) listed above is documentation that was entered by the reading physician into a diagnostic report(s) for Guerrero Larry Ramos. I have reviewed the report(s) and am incorporating any findings in the treatment plan of this patient where applicable. A&P - Nephrology Assessment/Plan (1) Acute kidney injury superimposed on chronic kidney disease: Assessment/Problem Details: She has RIO possibly due to the hypovolemia in setting of poor oral intake or urinary retention. She has no evidence of obstructive uropathy on CAT scan. (2) CKD (chronic kidney disease) stage 3, GFR 30-59 ml/min: Assessment/Problem Details: She has a longstanding CKD due to DM and HTN baseline serum creatinine around 1.8 to 2.2 mg/dL. (3) Type 2 diabetes mellitus with diabetic chronic kidney disease: Assessment/Problem Details: She has insulin-dependent type 2 diabetes mellitus and takes insulin glargine athome. (4) Hypertensive chronic kidney disease with stage 1 through stage 4 chronic kidney disease, or unspecified chronic kidney disease: Assessment/Problem Details: Blood pressure is controlled. She was taking amlodipine at home. Plan * Agree with fluid resuscitation with normal saline. * Will check bladder scan to rule out urinary retention. * Continue DM management as per the primary hospitalist team. The goal of blood sugar is between 100 to 150 mg/dL. * Continue amlodipine * Check renal function daily and monitor input output * Thanks for consult. Will continue follow-up with you. Please feel free to call us with any question. Documented By: Allison Melgar MD 06/14/24 1028 Signed By: <Electronically signed by Allison Melgar MD> 06/14/[address] [facility] Work Phone: 1(300) 862-332108-17-2024 Progress note Author Promise Nova [facility] June 14, 2024 10:20am Note Date/Time June 13, 2024 2: 33pm [facility] [address] [place], [place] [id number] Hospitalist Progress Note Signed Patient: Guerrero Ramos MR#: [id number] : 1980 Acct:[id number] Age/Sex: 43 / F Adm Date: 4 Loc: 3T Room: [address] [place] [address] Type: ADM INOo Attending Dr: Promise Nova MD Copies to: ~ Date of Service: 06/13/2024 Subjective Subjective Narrative: Patient seen and examined. Recumbant in bed. Indicates prior nausea but no emesis, resolved. Now with reflux and burning symptoms- asking for med, does not routinely take at home. Abdominal pain resolved. No BM today. Eating well. Denies chest pain or dyspnea. Exam Physical Exam Vital Signs: Temp Pulse Resp BP Pulse Ox O2 Del Method O2 Flow Rate 97.8 F 76 18 133/85 98 Room Air 2 06/13/24 08:00 06/13/24 08:00 06/13/24 08:00 06/13/24 08:00 06/13/24 08:00 06/13/24 08:00 06/12/24 19:26 Narrative: CONST- alert, in bed, no distress at rest CARD- RRR no abnormal heart tones PULM- dimin without wheeze or rhonchi, RA ABD- S/NT, NABS, morbidly obese EXTREM- no edema BLE, calves nontender Objective Lab Results 06/14/24 04:59 06/14/24 06:46 Meds Allergies and Active Meds Allergies Penicillins Allergy (Unknown, Verified 06/12/24 15:31) Hives Active Meds: Active Medications Generic Name Dose Route Start Last Admin Trade Name Freq PRN Reason Stop Dose Admin Acetaminophen 650 mg 06/13/24 00:31 Acetaminophen 325 Mg Tablet PO 06/13/25 00:30 Q6HR PRN Pain Scale 1 - 3 or fever Alprazolam 0.5 mg 06/13/24 09:00 06/13/24 08:53 Alprazolam 0.5 Mg Tablet PO 12/10/24 08:59 0.5 mg DAILY FANTASMA Administration Amlodipine Besylate 2.5 mg 06/13/24 09:00 06/13/24 08:53 Amlodipine 2.5 Mg Tablet PO 06/13/25 08:59 2.5 mg DAILY FANTASMA Administration Atorvastatin Calcium 40 mg 06/13/24 22:00 Atorvastatin 40 Mg Tablet PO 06/13/25 21:59 HS [facility] Dextrose 0 gm 06/13/24 01:19 Dextrose 50% In Water 25 Gm/50 Ml Syringe IV-PUSH 06/13/25 01:18 PRN PRN Hypoglycemia Empagliflozin 10 mg 06/13/24 09:00 06/13/24 08:53 Empagliflozin 10 Mg Tablet PO 06/13/25 08:59 10 mg QAM FANTASMA Administration Protocol Enoxaparin Sodium 40 mg 06/13/24 10:00 06/13/24 09:17 Enoxaparin 40 Mg/0.4 Ml Syringe SUBCUT 06/13/25 09:59 Not Given DAILY@10 FANTASMA Ergocalciferol 1,250 mcg 06/16/24 08:00 Ergocalciferol 1,250 Mcg (50,000 Units) Capsule PO 06/16/25 07:59 Mo@0800 [facility] Glucose 0 gm 06/13/24 01:19 Dextrose 40% Gel 15 Gm Tube PO 06/13/25 01:18 PRN PRN Hypoglycemia Magnesium Sulfate 2 gm in 50 mls @ 25 mls/hr 06/13/24 00:34 Magnesium Sulf 2gm-*Swfi* IV 06/13/25 00:33 DAILY PRN Magnesium Level < 1.7 Ceftriaxone Sodium 1 gm in 50 mls @ 100 mls/hr 06/13/24 09:00 06/13/24 09:22 Rocephin IV Infused Q24H [facility] Infusion Insulin Aspart 0 units 06/13/24 08:00 06/13/24 08:53 Insulin Aspart 300 Units/3 Ml Insuln.Pen SUBCUT 06/13/25 07:59 Not Given TID.WM.HS [facility] Protocol Insulin Glargine 40 units 06/13/24 09:00 06/13/24 08:57 Insulin Glargine 300 Units/3 Ml Insuln.Pen SUBCUT 06/13/25 08:59 40 units DAILY FANTASMA Administration Levothyroxine Sodium 75 mcg 06/13/24 06:30 06/13/24 05:33 Levothyroxine 75 Mcg Tablet PO 06/13/25 06:29 75 mcg DAILY.0630 FANTASMA Administration Mirabegron 25 mg 06/13/24 09:00 06/13/24 08:53 Mirabegron 25 Mg Tab.Er.24h PO 06/13/25 08:59 25 mg DAILY [facility]ANTASMA Administration Phentermine 37.5 Mg 18.75 mg 06/13/24 09:00 06/13/24 09:17 Tablet PO 06/13/25 08:59 Not Given DAILY FANTASMA Ondansetron HCl 4 mg 06/13/24 00:34 06/13/24 01:10 Ondansetron 4 Mg/2 Ml Vial IV-PUSH 06/13/25 00:33 4 mg Q6H PRN Administration Nausea And Vomiting Oxycodone/Acetaminophen 1 tab 06/13/24 00:34 06/13/24 01:02 Oxycodone/Acetaminophen 5-325 Mg Tablet PO 1 tab Q6H PRN Administration Pain Scale 4 - 7 Potassium Chloride 40 meq 06/13/24 00:34 Potassium Chloride Er 20 Meq Tab.Er.Prt PO 06/13/25 00:33 DAILY PRN Hypokalemia Sertraline HCl 50 mg 06/13/24 09:00 06/13/24 08:53 Sertraline 50 Mg Tablet PO 06/13/25 08:59 50 mg DAILY FANTASMA Administration Sodium Chloride 0 ml 06/12/24 15:31 06/13/24 01:02 Sodium Chloride 0.9 % 10 Ml Syringe IV-PUSH 06/12/25 15:30 10 ml PRN PRN Administration Flush Sodium Chloride 0 ml 06/13/24 06:00 06/13/24 05:19 Sodium Chloride 0.9 % 10 Ml Syringe IV-PUSH 06/13/25 05:59 Not Given QSHIFT FANTASMA Tolterodine Tartrate 2 mg 06/13/24 09:00 06/13/24 08:53 Tolterodine 2 Mg Tablet PO 06/13/25 08:59 2 mg BID FANTASMA Administration Trazodone HCl 200 mg 06/13/24 09:00 06/13/24 08:53 Trazodone 100 Mg Tablet PO 06/13/25 08:59 200 mg BID [facility]ANTASMA Administration A&P - Hospitalist Assessment/Plan (1) Acute kidney injury superimposed on chronic kidney disease: (2) Dehydration: (3) UTI (urinary tract infection), bacterial: (4) GERD (gastroesophageal reflux disease): (5) BMI 50.0-59.9, adult: (6) Type 2 diabetes mellitus: Plan RIO on CKD stage III-IV Dehydration -IVF stopped, good PO intake, trend labs UTI Abdominal pain, resolved GERD Ventral hernia History of colon cancer status post bowel resection -Ceftriaxone -pending surgery outside hospital for ventral hernia once achieves 30# weight loss Chronic conditions Morbid obesity (BMI 60)-phentermine Anxiety/depression-alprazolam Hyperlipidemia- atorvastatin Hypertension- amlodipine Diabetes- empagliflozin Documented By: Libra Li APRN 05/29 04/21 1110 Signed By: <Electronically signed by DEBORAH Li> 06/14/24 0938 <Electronically signed by Promise Nova MD> 06/14/[address] [facility] Work Phone: 1(406) 788-871708-16-2024 History and physical note Author Jayro Bucio [facility] June 13, 2024 1:18am Note Date/Time June 13, 2024 12 :49am [facility] [address] [place] [address] Hospitalist H&P Signed with Addenda Patient: Guerrero Ramos MR#: [id number] : 1980 Acct:[id number] Age/Sex: 43 / F Adm Date: 4 Loc: Room: [address] [place] [address] Type: ADM INOo Attending Dr: Jayro Bucio MD Copies to: MD Lily Linares [employer] TRA[employer] REPAIRERAkbarC~ ADDENDUM1 Further assessment and plan: [id number] bolus insulin, corrective scale and Jardiance HTN?continue home BP meds Addendum Documented By: Jayro Bucio MD 06/13/24 0118 Addendum Signed By: <Electronically signed by Jayro Bucio MD> 06/13/24 0118 HPI DATE OF EXAMINATION: 06/12/24 CHIEF COMPLAINT: Abdominal pain, nausea HISTORY OF PRESENT ILLNESS: Ms. Ramos is a 43-year-old female with PMH of morbid obesity (BMI 60), anxiety/depression, ventral hernias, CKD stage III (baseline creatinine ~2.0), colon CA status post resection who presents to the emergency department with complaints of abdominal discomfort. Patient reports 1 day of bilateral lower abdominal radiating into the right upper quadrant sharp and cramping pain that increased throughout the last 24 hours. Patient has a history of multiple ventral hernias, but notes that this pain feels different than pain she has had when she had partial bowel obstructions related to her hernia in the recent past. She was admitted here in January of this year for partial bowel obstructionrelated to nonreducible hernia. She did have nausea and somewhat less of an appetite, but still able to eat 3 meals per day. She is passing gas and bowel movements, notes that the bowel movements are more loose today than in previous days. She denies any fever/chill, chest pain, shortness of breath, emesis, palpitations, dysuria, hematuria. In the emergency department, lab work noteworthy for BUN/creatinine above baseline at 38/2.8. Lipase within normal limits. Urinalysis did demonstrate WBCs, 3+ leuk esterase. CT imaging of the abdomen pelvis did not demonstrate acute bowel obstruction. Ventral hernias were noted with nonobstructed loops ofbowel and intraperitoneal fat. There was also no evidence of obstructive uropathy. Patient was started on oral Keflex per ED attending. Given that patient had some dehydration with creatinine above baseline, she was recommendedfor hospitalization. Case was discussed between myself and ED attending and patient was admitted to hospitalist service for further management. Review of Systems Review of Systems Review of systems: 10 point ROS reviewed and is negative except for that which is noted above in HPI [facility] Medical History Proteinuria Type 2 diabetes mellitus with diabetic chronic kidney disease CKD (chronic kidney disease) stage 3, GFR 30-59 ml/min BMI 60.0-69.9, adult History of colon cancer Bowel obstruction Pre-diabetes Hyperlipidemia Anxiety Depression Vertigo Hernia of abdominal cavity Colon cancer 2016, currently in remission Surgical History Hx of cholecystectomy Family History Father Cancer Legacy FamHx Problem: Diagnosed with Cancer Mother Hypertension Social History Smoking Status: Never smoker Substance Use Type: None Meds Medications and Allergies Allergies Penicillins Allergy (Unknown, Verified 06/12/24 15:31) Hives Home Medications alprazolam 0.5 mg tablet (Xanax) 0.5 mg PO DAILY 09/23/17 [History Confirmed 06/12/24] meclizine 25 mg tablet 25 mg PO BID 09/23/17 [History Confirmed 06/12/24] sertraline 50 mg tablet (Zoloft) 50 mg PO DAILY 09/23/17 [History Confirmed 06/12/24] rosuvastatin 20 mg tablet 20 mg PO HS 08/20/22 [History Confirmed 06/12/24] trazodone 100 mg tablet 200 mg PO BID 08/20/22 [History Confirmed 06/12/24] ergocalciferol (vitamin D2) 1,250 mcg (50,000 unit) capsule 1,250 mcg PO QWEEK 08/20/23 [History Confirmed 06/12/24] insulin glargine U-300 conc 300 unit/mL (1.5 mL) subcutaneous pen (Toujeo SoloStar U-300 Insulin) 50 unit subcut DAILY 08/20/23 [History Confirmed 06/12/24] levothyroxine 75 mcg tablet 75 mcg PO QAM 02/08/24 [History Confirmed 06/12/24] mirabegron 25 mg tablet,extended release 24 hr (Myrbetriq) 25 mg PO DAILY 02/08/24 [History Confirmed 06/12/24] pen needle, diabetic 31 gauge x 02/08/24 [History Confirmed 06/12/24] tolterodine 2 mg tablet 2 mg PO BID 02/08/24 [History Confirmed 06/12/24] amlodipine 2.5 mg tablet 2.5 mg PO DAILY #90 tabs 02/14/24 [Rx Confirmed 06/12/24] empagliflozin 10 mg tablet (Jardiance) 10 mg PO QAM 05/10/24 [History Confirmed 06/12/24] meloxicam 7.5 mg tablet 7.5 mg PO DAILY 06/12/24 [History Confirmed 06/12/24] phentermine 37.5 mg tablet 18.75 mg PO DAILY 06/12/24 [History Confirmed 06/12/24] Exam Physical Exam Vital Signs: Temp Pulse Resp BP Pulse Ox O2 Del Method O2 Flow Rate 97.6 F 89 18 145/90 H 100 Room Air 2 06/12/24 22:47 06/12/24 22:47 06/12/24 22:47 06/12/24 22:47 06/12/24 22:47 06/12/24 22:59 06/12/24 19:26 Narrative: Constitutional: Morbidly obese, middle-aged WF HEENT: Dry mucous membranes, neck supple Cardiovascular: RRR, no M/R/G, normal S1 and S2, no JVD Respiratory: Lungs clear to auscultation bilaterally, no wheezes, rales or rhonchi GI: Soft, ventral hernia is present. Patient with obese abdomen. Ventral hernias are soft and reasonably reducible. They are nontender. She does have tenderness in the right lower and right upper quadrants, but this is minimal. : Deferred Neuro: AAO x3, no focal deficits. CN III-XII grossly intact, Strength 5/5 throughout Extremities: Trace edema noted in the bilateral lower extremities distally Psych: Patient calm, cooperative and conversant Results - Hospitalist H&P Lab Results Labs: Laboratory Last Values Corrected WBC 6.4 X10E3/uL (3.8-11.6) 06/12/24 19:00 Uncorrected WBC Count 6.4 x10E3/uL (3.8-11.6) 06/12/24 19:00 RBC 4.88 X10E6/uL (3.60-5.00) 06/12/24 19:00 Hgb 13.0 g/dL (11.8-15.4) 06/12/24 19:00 Hct 38.5 % (34.0-46.4) 06/12/24 19:00 MCV 78.8 fl (80-100) L 06/12/24 19:00 MCH 26.5 pg (24.7-34.3) 06/12/24 19:00 MCHC 33.7 g/dL (32.0-35.0) 06/12/24 19:00 RDW 15.6 % (11.9-15.3) H 06/12/24 19:00 Plt Count 221 x10E3/uL (150-450) 06/12/24 19:00 MPV 7.4 fl (6.3-10.7) 06/12/24 19:00 Neut % (Auto) 65.5 % (.) 06/12/24 19:00 Lymph % (Auto) 24.3 % (.) 06/12/24 19:00 [place] % (Auto) 6.4 % (.) 06/12/24 19:00 Eos % (Auto) 3.2 % (.) 06/12/24 19:00 Baso % (Auto) 0.6 % (.) 06/12/24 19:00 Nucleat RBC Rel Count 0.2 /100 WBC (0-0.5) 06/12/24 19:00 Neut # (Auto) 4.2 x10E3/uL (1.8-7.7) 06/12/24 19:00 Lymph # (Auto) 1.5 x10E3/uL (1.00-4.8) 06/12/24 19:00 [place] # (Auto) 0.4 x10E3/uL (0.0-0.8) 06/12/24 19:00 Eos # (Auto) 0.2 x10E3/uL (0.0-0.45) 06/12/24 19:00 Baso # (Auto) 0.0 x10E3/uL (0.0-0.2) 06/12/24 19:00 Monocyte Dist Width 18.31 % (0.00-20.00) 06/12/24 19:00 PHA Creatinine Clear 36.30 06/12/24 19:00 Sodium 138 mmol/L (136-145) 06/12/24 19:00 Potassium 4.1 mmol/L (3.5-5.1) 06/12/24 19:00 Chloride 103 mmol/L (98-107) 06/12/24 19:00 Carbon Dioxide 27.2 mmol/L (21.0-31.0) 06/12/24 19:00 Anion Gap 11.9 mEq/L (6.0-15.0) 06/12/24 19:00 BUN 38 mg/dL (7-25) H 06/12/24 19:00 Creatinine 2.80 mg/dL (0.60-1.20) H 06/12/24 19:00 Est GFR (CKD-EPI) 20.708 mL/Min 06/12/24 19:00 Glucose 126 mg/dL (70-100) H 06/12/24 19:00 Calcium 9.6 mg/dL (8.6-10.3) 06/12/24 19:00 Total Bilirubin 0.5 mg/dl (0.3-1.0) 06/12/24 19:00 Direct Bilirubin 0.10 mg/dL (0.03-0.18) 06/12/24 19:00 Indirect Bilirubin 0.4 mg/dL 06/12/24 19:00 AST 19 U/L (13-39) 06/12/24 19:00 ALT 25 U/L (7-52) 06/12/24 19:00 Alkaline Phosphatase 58 U/L (34-104) 06/12/24 19:00 Total Protein 7.2 gm/dL (6.4-8.9) 06/12/24 19:00 Albumin 4.1 gm/dL (3.5-5.7) 06/12/24 19:00 Globulin 3.1 gm/dL 06/12/24 19:00 Albumin/Globulin Ratio 1.3 06/12/24 19:00 Lipase 28.0 U/L (11.0-82.0) 06/12/24 19:00 Urine Color Light-yellow (Yellow) 06/12/24 19:30 Urine Appearance Cloudy (Clear) A 06/12/24 19:30 Urine pH 6.0 (5.0-9.0) 06/12/24 19:30 Ur Specific [place] 1.018 (1.001-1.030) 06/12/24 19:30 Urine Protein 200 mg/dL (Negative) H 06/12/24 19:30 Urine Glucose (UA) >=1000 mg/dL (Normal) H 06/12/24 19:30 Urine Ketones Negative (Negative) 06/12/24 19:30 Urine Occult Blood Negative (Negative) 06/12/24 19:30 Urine Nitrite Negative (Negative) 06/12/24 19:30 Urine Bilirubin Negative (Negative) 06/12/24 19: Urine Urobilinogen Normal mg/dL (Normal) 06/12/24 19:30 Ur Leukocyte Esterase 3+ (Negative) H 06/12/24 19:30 Urine RBC 1-2 /HPF (0-4) 06/12/24 19:30 Urine WBC 20-49 /HPF (0-4) H 06/12/24 19:30 Urine WBC Clumps Few /LPF (None Seen) H 06/12/24 19:30 Ur Squamous Epith Cells 5-9 /HPF (0-2) H 06/12/24 19:30 Urine Bacteria 1+ /HPF (None Seen) H 06/12/24 19:30 Hyaline Casts None /LPF (0-8) 06/12/24 19:30 Urine Mucus Rare /LPF 06/12/24 19:30 Urine HCG, Qual Negative 06/12/24 19:30 Assessment & Plan Assessment/Plan (1) Acute kidney injury superimposed on chronic kidney disease: Plan RIO on CKD stage III-IV Dehydration In the setting of mild volume depletion. Patient did receive contrast with CT imaging in the ED as well. -IV hydration overnight -Monitor BMP closely Possible acute nonhemorrhagic cystitis Urinalysis does suggest UTI. Patient does not have dysuria, but does have suprapubic and right flank pain. No CVA tenderness. Given patient's generalized systemic and abdominal symptoms, could be related to infection -Continue with IV ceftriaxone for now -May need to reconsider Jardiance therapy if this is indeed another UTI Abdominal pain Ventral hernia History of colon cancer status post bowel resection Patient is passing flatus and bowel movements. She feels her abdominal pain is different than her previous partial bowel obstruction. Suspect this may be related to urinary tract infection, but may also be intermittent pains related to her chronic hernia issues -Monitor with serial abdominal examinations -Supportive care otherwise -Consider general surgery consult if patient no longer has flatus, bowel movements, increasing/persistent pain Chronic conditions, continue home regimens unless otherwise specified: Morbid obesity (BMI 60) Anxiety/depression Hyperlipidemia CODE STATUS: Full code IP vs OBS Justification Based on differential dx, clinical care plan, and risk of adverse events, if untreated, in my clinical judgement this patient requires an acute care setting as: OBSERVATION because of an expectation of an under 2 midnight stay. Estimated length of stay (# of days): 2 Documented By: Jayro Bucio MD [id number] Signed By: <Electronically signed by Jayro Bucio MD> 06/13/[address] [facility] Work Phone: [phone] [phone] Instructions* Patient Instructions* Jodi Zhou DEBORAH.TAN ROOM SUPERVISOR - 05/26/2024 2:33 PM EDT Images from the original note were not included. Goals: -- Eating Plan: [employer] MARBELLA - Log intake 3-4 days per week. Replace skipped meals with a protein supplement - check with prepleater due to impaired kidney function for protein recommendations. -- Schedule with one of our BMI dieticians. To schedule this appointment please call [phone] -- Diabetes Healthy Plate, see below. -- Activity: Apple Watch or FitBit tracker. Try to increase steps 5,000-8,000 steps per day. See a list of fitness resources below -- Sleep: Complete sleep study. The home study was ordered for you today. -- Stress: MARBELLA for meditation - Mindful Moments by [facility] Hairbobo. [email or web address]/health/mental-health/swl-ackodyfgod-tgfpfg-android-apps#our-picks -- Restart Mounjaro once insulin regime is discussed with PCP. We will closely monitor for GI side effects and treat them if needed. -- Schedule a follow up visit with me in 2 months. To schedule this appointment please call [phone] Fitness apps [employer] (WCG) club on OneEyeAnt It s not always easy to motivate yourself to exercise, but the optionto feel the burn and then directly transition into one of your favorite shows does have a certain appeal. And now, that s exactly what you can do: Just before the new year, OneEyeAnt members will be able to stream fitness content from [employer] Training Club for the first time ever. oBn Welcome to [employer], an independent global fitness resource. [employer] is a non-profit and also an ad-free and product placement-free website. Click here to get started. 7 Minute Workout: Professionally designed workouts that are short and effective. Workouts you can do anytime anywhere. 30 day Fitness Challenge: Workout at home, suited for anybody at any time. The 30 Day Fit ChallengeWorkout, designed by a professional middle school coach, and is scientifically proven to help improve fitness and health. Also, this marbella can synchronize with burned calorie data on [employer] GenieDB. Don't need to go to gym, just use your bodyweight and take a few minutes a day. Map My Fitness by Under [employer]gs: Do you love a sense of community? Then you re going to love this marbella. Not only is it free, but you can interact with other members, share completed workouts, and receive/give encouragement from people on similar fitness journeys. Plus, you can join challenges and compete with other members. Freeletics: Customize your daily workouts and decide how you d like to achieve your goals whether it s with gym equipment or using your own body weight. This free marbella allows you to have access to anddownload free HIIT routines which you can even monitor through your Apple watch. After creating a profile, you can start your journey working out wherever, whenever! HubHuman Marbella: You may not have a fancy HubHuman bike or treadmill, but there is still a lot for you on the HubHuman Marbella. Normally $12.99, but they offer the first month free. HubHuman offers a variety oflive fitness classes that you can filter by type, length, time and fitness level. You must registerwith a credit card, and will be charged after 30 days if you don't cancel. Chaz it on the calendar or set an alert for the trial period is up. If you aren't good at remembering to cancel after trial periods, you may want to skip this one. [employer] Training Club Marbella: Offering everything from bodyweight-only to full- equipment workouts for everyone at all fitness levels. There is a free plan with 200+ workouts, or a premium plan for $14.99/mo. Walkathome: The Walk at Home Marbella is a monthly calendar of workouts starting at $4.99 a month. Each month, receive a new set of workouts curated by the Walk at Home Team. It is made up of full-length titles, special edits, and exclusive content. You can swipe left or right and choose any workout youwant, all you do is tap and walk. ?FitOn: Fitness Workout Plans Marbella: Take your FREE workout wherever you go with the Filecubed marbella. Thereare live classes, on demand, challenges, and more. You can select time, intensity, target area and more. They'll even set up a fitness plan based on your goals and stats - with optional reminders so you can't just say that you forgot. [employer] Adjunct Professor Of [place]. History: SO MANY FREE workouts on Buedaer. You can narrow your search by choosing difficulty level, body focus, training type (HIIT, strength, pilates, cardio, etc), equipment available, length of time, and more! There are no excuses! You can ask for a 10 minute workout with no equipment, and you'll have 126 choices! Let's face it .you have 10 minutes these days. GoNoodle: Do kids need a break to get the wiggles our in between at-home school work or boredom? Turn on GoNoodle! The website and marbella provide movement and mindfulness videos created by child development experts to help get kids moving! You'll find creative movement, Kids Bop videos, kids Mayra, Think about It lessons, and more. We use the marbella on MEETiiN to stream the videos on our TV, and the kids LOVE dancing along. [place] Fitness Team Body Project: On demand workouts at home. Enjoy over 400 HIIT cardio, resistance, circuit, Pilates and boxing workouts. Programs that guarantee safe, healthy and sustainable fat loss and muscle tone with workouts that are easy to follow and fun. Also an marbella available. Yoga with Sharon: Her yoga is for all abilities, and is there is truly something for everyone. There are short and long options, yoga focusing on specific areas of the body, or that is for dealing with specific injuries or emotional needs. Pick any, or work your way through one of her 30 day programs. Exercising with Charbel Ayers: Inspiring the world to fitness in body, soul and spirit. There are workouts, stories of inspiration, courage and more. So subscribe now to be a better you. Burn Fat! BurnCalories! Lose weight! Face life challenges and be an overcomer. [employer] Systems: [employer] offers all types of workouts on [place], including Mayra, HIIT, Standing [place], Core, and more. Mireya Ovalle Fitness: This channel offers a HUGE library of fitness videos. You find all typesof workouts, including no-equipment, weights, kettlebell, yoga, Pilates, kickboxing, cardio, and somuch more. You can also join fitness challenges and use workout calendars that will tell you exactly what videos to do each day. Cosmic Kids Yoga: Fun themed yoga workouts for kids, including Frozen, Trolls, Star Wars, Animals, and kid-friendly resources for dealing with life situations and more! The workouts are around 30 minutes, and may hold school aged kids attention a little better. My 6 year old loves them, but my 4 year old only joins in occasionally. Adapted from: https://www.[employer]/bnom-qa-sjtm-workout-options/ Chair fitness Team body project https://www.SnapLayoutube.com/watch?v=w0jsQI-KuLk Charbel Ayers https://www.SnapLayoutube.com/watch?v=4bStn4wr8S7 Yoga with Sharon https://www.SnapLayoutube.com/watch?v=-Tm38DD5nVh Gaston Chi https://www.youTransfluentube.com/watch?v=XAi_6syHmlw Chair One- Fitness Choreography https://www.SnapLayoutube.com/watch?v=_b911Zezn2I Plate Method Dzxeoi-Vphc-Ysymw: Simplify Meal Planning with the Plate Method (diabetesfoodhub.org) documented in this [facility] NoteHNO ID: [id number] Author: JODI ZHOU APRN.ROBI Service: ? Author Type: Nurse Practitioner Type: Progress Notes Filed: 05/26/2024 14:38 Note Text: BMI Obesity Medicine Consult Distance Health Visit 05/20/24 I have communicated my name and active licensure. The patient's identity and physical location were verified at the time of this visit. Either the patient or their legal unit support representative has been informed of the risks and benefits of -- and alternatives to -- treatment through a remote evaluation and consents to proceed with the evaluation remotely. Patient Summary: Guerrero Ramos is a 43 year old female with obesity who presents to the [facility] [place] for an initial evaluation of her obesity and is interested in behavioral , pharmacological, and non-surgical weight loss approaches. Primary reason for wanting obesity treatment : to become healthier Overall goal: 200 lbs Needs to lose 30lbs for ventral hernia repair - Surgeon request BMI to be 55 or below to proceed. States that insurance will not cover weight loss surgery. History of uncontrolled type 2 diabetes - managed by her PCP Has tried Farxiga in the past, states she had intolerable side effects of falling. Tried Ozempic and Mounjaro as well. Unable to tolerate GI side effects. Current Diabetes Regime: - Jardiance 10 mg oral daily - Toujeo to 50 units subcutaneous daily Weight History: She reports no family history of obesity and early onset weight gain. She states her weight gain is related to the following factors, including unhealthy eating habits, lack of physical activity, sedentary lifestyle. States that she started struggling with her weight as early as her high school years - weight continued to gradually increase over the past several years with her current weight being 336 lbs, which is her highest weight point. Weight Graph: (please see graph scanned in chart) Obesigenic Medications: NO Diet: Quality of diet: 24hr recall suggests unhealthy diet. B: eggs or skips L: chicken sandwich or skips D: fruit Snacks: ice cream bar, oreos Beverages: root beer ETOH: denies Characterization of diet:Unstructured, unhealthy snacking, evening snacking, increased consumption of sugar sweetened beverages, and skip meals. Watch Repairer of impaired eating habits:mindlessness and boredom Eating Disorder no Diet History: Past weight loss attempts? self-directed and anti-obesity medications Semaglutide (Ozempic) and Tirzepatide (Mounjaro). Both GLP1s/GIPs - struggled with continuous nausea. Exercise: Regular exercise: No Strength/resistance exercise:No Barriers to regular exercise? Vertigo Work-related activity:Sedentary ?Sleep: Duration: 12 hours. LOUIS NO ; CPAP NO Quality:poor, Few awakenings :Sleep-wake cycle disruption:No Works 2pm-10pm STOP BANG 1. Snoring : Do you snore loudly (louder than talking, through closed doors)? YES 2. Tired : Do you often feel tired, fatigued, or sleepy during daytime? YES 3. Observed : Has anyone observed you stop breathing during sleep?NO 4. Blood Pressure: treated for high blood pressure?YES 5. BMI : BMI more than 35 kg/m2? YES 6. Age : Age over 50 yr old? NO 7. Neck circumference: Neck circumference greater than 40 cm?YES 8. Gender : Gender male? NO STOP BANG Score 5 , high ??Stress: None , Cause:None Obesity Related Comorbidities: Prior Weight Loss Surgery:No There is no problem list on file for this patient. PMH: Colon cancer ([facility] [place]) 10/29/2015 STAGE II-B, PT4, N0, M0 ADENOCARCINOMA OF TRANSVERSE COLON 6.5CM AND 32 LYMPH NODES WERE NEGATIVE FOR METASTASIS Colon cancer ([facility]) 04/09/2017 Depression Disease of thyroid gland HYPOTHYROIDISM Dizziness Hernia of abdominal wall 11/09/2015 colon cancer Iron deficiency No history of SC, COPD, asthma, peptic ulcer dx, +hyperlipidemia, +gallstones, +hypothyroidism, +hypertension, cancer, DVT, PE, CVA, T2DM, gout, kidney stones, +CKD and smoking history. History reviewed. No pertinent surgical history. CHOLECYSTECTOMY COLECTOMY 10/29/2015 HEMICOLECTOMY AND PARTIAL OMENTECTOMY PER DR. [facility] COLONOSCOPY 03/29/2016 [facility] Obesity ROS/ FHx GEN: Fatigue:+Yes CV: h/o palpitations/cardiac arrhythmia, CP:No PULM: Asthma:No GI: GERD:No; Gallstones: No; Fatty liver disease:No; H/o hernia:Yes, upper abdomen MSK: Joint Pain:+Yes, arthritis in bilateral knees : Nephrolithiasis:+Yes; Stress incontinence:No Symptoms of PCOS(women):No ENDO: +thyroid disorder (hypo) and diabetes NEURO: Migraines/MORSE:No; H/o seizures: No Glaucoma:No; Cataracts No Symptoms of pseudotumor cerebri:No The physical systems reviewed reveal no pathological symptoms that are pertinent to this visit History reviewed. No pertinent family history. PREV: PAP Not UTD, Mammogram Not UTD and Colonoscopy UTD Social History Social History Tobacco U (more content not included)...[place] [id number] History of Present illness Narrative* Jodi ZhouDEBORAH.TAN ROOM SUPERVISOR - 05/20/2024 8:04 AM EDT Images from the original note were not included. BMI Obesity Medicine Consult Distance Health Visit 05/20/24 I have communicated my name and active licensure. The patient's identity and physical location wereverified at the time of this visit. Either the patient or their legal unit support representative has been informed of the risks and benefits of -- and alternatives to -- treatment through a remote evaluation andconsents to proceed with the evaluation remotely. Patient Summary: Guerrero Ramos is a 43 year old female with obesity who presents to the [facility] [place] for an initial evaluation of her obesity and is interested in behavioral , pharmacological, and non-surgical weight loss approaches. Primary reason for wanting obesity treatment : to become healthier Overall goal: 200 lbs Needs to lose 30lbs for ventral hernia repair - Surgeon request BMI to be 55 or below to proceed. States that insurance will not cover weight loss surgery. History of uncontrolled type 2 diabetes - managed by her PCP Has tried Farxiga in the past, states she had intolerable side effects of falling. Tried Ozempic and Mounjaro as well. Unable to tolerate GI side effects. Current Diabetes Regime: - Jardiance 10 mg oral daily - Toujeo to 50 units subcutaneous daily Weight History: She reports no family history of obesity and early onset weight gain. She states her weight gain isrelated to the following factors, including unhealthy eating habits, lack of physical activity, sedentary lifestyle. States that she started struggling with her weight as early as her high school years - weight continued to gradually increase over the past several years with her current weight being 336 lbs, which is her highest weight point. Weight Graph: (please see graph scanned in chart) Obesigenic Medications: NO Diet: Quality of diet: 24hr recall suggests unhealthy diet. B: eggs or skips L: chicken sandwich or skips D: fruit Snacks: ice cream bar, oreos Beverages: root beer ETOH: denies Characterization of diet:Unstructured, unhealthy snacking, evening snacking, increased consumption of sugar sweetened beverages, and skip meals. Watch Repairer of impaired eating habits:mindlessness and boredom Eating Disorder no Diet History: Past weight loss attempts? self-directed and anti-obesity medications Semaglutide (Ozempic) and Tirzepatide (Mounjaro). Both GLP1s/GIPs - struggled with continuous nausea. Exercise: Regular exercise: No Strength/resistance exercise:No Barriers to regular exercise? Vertigo Work-related activity:Sedentary ?Sleep: Duration: 12 hours. LOUIS NO ; CPAP NO Quality:poor, Few awakenings :Sleep-wake cycle disruption:No Works 2pm-10pm [employer] 1. Snoring : Do you snore loudly (louder than talking, through closed doors)? YES 2. Tired : Do you often feel tired, fatigued, or sleepy during daytime? YES 3. Observed : Has anyone observed you stop breathing during sleep?NO 4. Blood Pressure: treated for high blood pressure?YES 5. BMI : BMI more than 35 kg/m2? YES 6. Age : Age over 50 yr old? NO 7. Neck circumference: Neck circumference greater than 40 cm?YES 8. Gender : Gender male? NO STOP BANG Score 5 , high ??Stress: None , Cause:None Obesity Related Comorbidities: Prior Weight Loss Surgery:No There is no problem list on file for this patient. PMH: Colon cancer ([facility] [place]) 10/29/2015 STAGE II-B, PT4, N0, M0 ADENOCARCINOMA OF TRANSVERSE COLON 6.5CM AND 32 LYMPH NODES WERE NEGATIVE FOR METASTASIS Colon cancer ([facility]) 04/09/2017 Depression Disease of thyroid gland HYPOTHYROIDISM Dizziness Hernia of abdominal wall 11/09/2015 colon cancer Iron deficiency No history of SC, COPD, asthma, peptic ulcer dx, +hyperlipidemia, +gallstones, +hypothyroidism, +hypertension, cancer, DVT, PE, CVA, T2DM, gout, kidney stones, +CKD and smoking history. History reviewed. No pertinent surgical history. CHOLECYSTECTOMY COLECTOMY 10/29/2015 HEMICOLECTOMY AND PARTIAL OMENTECTOMY PER DR. MAYFIELD COLONOSCOPY 03/29/2016 [facility] Obesity ROS/ FHx GEN: Fatigue:+Yes CV: h/o palpitations/cardiac arrhythmia, CP:No PULM: Asthma:No GI: GERD:No; Gallstones: No; Fatty liver disease:No; H/o hernia:Yes, upper abdomen MSK: Joint Pain:+Yes, arthritis in bilateral knees : Nephrolithiasis:+Yes; Stress incontinence:No Symptoms of PCOS(women):No ENDO: +thyroid disorder (hypo) and diabetes NEURO: Migraines/MORSE:No; H/o seizures: No Glaucoma:No; Cataracts No Symptoms of pseudotumor cerebri:No The physical systems reviewed reveal no pathological symptoms that are pertinent to this visit History reviewed. No pertinent family history. 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 Results: reviewed with the patient No visits with results within 3 Month(s) from this visit. Latest known visit with results is: No results found for any previous visit. Impression: Guerrero Ramos is a 43 year old female with Class III obesity (Body mass index is 59.52 kg/m .) who has early onset obesity with gradual weight gain. The causes of her obesity are multifactorial, biological, psychological and social and environmental. Specific factors include increased consumption of high calorie/process foods, irregular eating patterns , suboptimal physical activity, inadequate sleep duration, poor sleep quality, and circadian disruption. She has several weight-related medical comorbidities which increase her cardiovascular mortality risk. There are additional metabolic obesity complications including type 2 diabetes mellitus, dyslipidemia, hypertension, metabolic syndrome, and vitamin D deficiency. Other medical conditions as above. Regarding her lifestyle, as above, she has several behavioral contributors; her physical activity is non-existent. Overall, it is clear that her quality of life is severely compromised by her weight. It is likely acombination of weight loss therapies will be needed. She appears motivated today. Plan: -- Based on the severity and resistance of the obesity to more conservative weight loss approaches,I believe a combination of behavioral and pharmacological intervention is the best and most appropriate roasterman therapeutic option. -- We discussed several strategies to track food intake and increase mindfulness around eating. Shewas counseled on Food records, Meal replacements, Time restricted feeding, Intermittent fasting, and Low carbohydrate diet -- Encouraged the patient to improve her physical activity. Although cardiovascular exercise is most beneficial for weight loss initially, we discussed healthy muscle from a combination of resistancetraining and cardiovascular exercise is the best roasterman plan. An overall goal of 200 minutes perweek of exercise has been effective in weight loss and maintenance. -- Insurance does not cover bariatric surgery. She is limited on AOMs due to PMH and current medications. She has trialed many of the AOMs and had to discontinue due to intolerance. She is willing totry Mounjaro again if benefits outweigh risks, I explained the importance of having her PCP adjust insulin regime and will need to closely monitor for potential GI side effects and treat as needed. -- Will update lab work to screen for obesity related comorbidities / for medication management. All other lab work up to date and reviewed. - In discussion of anti-obesity medication options: Incretin agents such as GLP-1 RA/GIP [Mounjaro, Ozempic, Wegovy, Saxenda] are reasonable as she denies any personal or family history of medullary thyroid cancer or MEN 2, pancreatitis, cholecystitis, suicide attempt, or significant thyroid nodules. However, likely limited by insurance coverage/cost. She does have uncontrolled diabetes, however was unable to tolerate Ozempic or Mounjaro due to intolerable GI SE. Has not tried Trulicity Phentermine is contraindicated as she does not have history of hyperthyroidism, tachyarrhythmia, cardiac history, stroke/TIA, +anxiety disorder, +uncontrolled BP, bipolar or mood disorders, insomnia,or seizure disorder. Topiramate is reasonable as she does not have history of mood disorder, seizure disorder, renal dysfunction, glaucoma, or kidney stones. She is on anti- cholinergics - use in caution Bupropion/naltrexone is contraindicated as she does not have history of seizures, glaucoma, uncontrolled hypertension, anorexia nervosa, bulimia, drug or +opioid use, alcohol use, or mood/bipolar disorder. She has tried Metformin in the past and was unable to tolerate the GI side effects. She has a hx ofCKD- follows with OS prepleater - Shared decision made to re-start Mounjaro at low dose once discussing with Grinder Machine Setter as insulin regime will likely need adjusted to avoid hypoglycemia. She is checking blood glucoses frequently at home with DEXCOM. We discussed medication instructions, proper administration, potential side e ffects, cautions, and average potential weight loss in detail. Provided written medication information via [employer] and AVS. Patient will contact office if any issues with insurance coverage or cost. - Reviewed need for contraception with AOMs, patient is not and aware of this contraindication. - Advised to monitor BP and HR while initiating this medication provide updated readings at follow up visits. Instructed to hold medication and notify office if blood pressure is >140/90 or heart rate is >100 bpm. Provided written instructions on how to monitor this at home. Mutually Agreed Upon Goals: -- Eating Plan: [employer] MARBELLA - Log intake 3-4 days per week. Replace skipped meals with a protein supplement - she was encouraged to check with her prepleater due to impaired kidney function for protein recommendations. -- Schedule with one of our BMI dieticians. -- Diabetes Healthy Plate. -- Activity: Apple Watch or FitBit tracker. Try to increase steps 5,000-8,000 steps per day. -- Sleep: Complete sleep study -- Stress: MARBELLA for meditation - Mindful Moments by [facility] [employer]. [email or web address]-[email or web address] -- Restart Mounjaro once insulin regime is discussed with PCP -- follow-up visit for management of above interventions in 2 months I spent a total of 50 minutes on the date of the service which included preparing to see the patient, completing clinical documentation, obtaining and/or reviewing separately obtained history, counseling and educating the patient/family/caregiver, ordering medications, tests, or procedures, independ ently interpreting results (not separately reported), communicating results to the patient/family/caregiver, and care coordination (not separately reported). Jodi Zhou APRN.ROBI documented in this encounterWadsworth-[facility]man [facility]06-13-[facility]24 History of Present illness Narrative* Jeramie Franco MD - 04/10/2024 9:17 AM EDT Consultation requested by Dr. Dawood Clemente for an opinion regarding incisional hernia. My final recommendations will be communicated back to the requesting physician by way of shared medical record or letter via US mail. Guerrero Ramos is a 43 year old female who presents with incisional hernia after left colectomy for colon cancer. She has also undergone laparoscopic cholecystectomy. She has multiple midline defects on CT scan, the largest is about 8 cm. Her BMI is 59 today. We discussed weight loss and our weight loss trial. I will set up a referral to the weight loss clinic and see her back in 3 months. If we can get her BMI down to 55, we can enroll her in our weight loss trial. I have seen and evaluated the patient and discussed the case with the resident physician. I agree with the assessment and plan as documented in the resident s note including a ROS that was reviewed and negative other than what was indicated in our notes. Patient consented for study? Not applicable documented in this encounterWadsworth-[facility]06-13-2024 History and physical note * Christine Dorsey - 04/10/2024 9:13 AM EDT [facility] [place] - HISTORY AND PHYSICAL Chief Complaint: abdominal pain associated with bulge HPI: Guerrero Ramos is a 43 year old female who presents with an abdominal bulge associated with moderate pain. Patient history is significant for BMI 59, T2DM. Bulge first noticed 3 years ago but pain and size had gotten progressively worse in the past year. Hospitalized for SBO in 01/2024 managed non-operatively. Patient denies any nausea, vomiting, constipation since the hospitalization. 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 Weight loss has been refractory to diet and ozempic/ mounjaro (patient does not tolerate side effects), and bariatric surgery is not currently covered by insurance for patient. Relevant previous operations include: Colon cancer c/b intussusception s/p L. Hemicolectomy and partial omentectomy (2015), lap cholecystectomy (2004) No history of Psychiatric Disorders or Opioid Use Independent Light physical labor Sporadic (once/month) N/A No past medical history on file. No past surgical history on file. Social History Tobacco Use Smoking status: Never Smokeless tobacco: Never Additional social history not relevant to the patient's HPI No family history on file. Additional family history not relevant to the patient's HPI ALLERGIES Allergen Reactions Penicillins Rash Current Outpatient Medications Medication Sig Dispense Refill ALPRAZolam (XANAX) 0.25 mg tablet Take 0.25 mg by mouth at bedtime as needed. Meloxicam 7.5 mg/5 mL susp Take by mouth. levothyroxine 75 mcg cap Take 75 mcg by mouth daily before breakfast. meclizine (ANTIVERT) 25 mg tab Take 25 mg by mouth three times a day. amLODIPine (NORVASC) 2.5 mg tablet Take by mouth once daily. ondansetron HCl (ZOFRAN ORAL) Take by mouth as needed. insulin glargine,hum.rec.anlog (TOUJEO MAX U-300 SOLOSTAR SUBCUTANEOUS) Inject subcutaneously. tolterodine (DETROL) 2 mg tablet Take 2 mg by mouth two times a day. mirabegron (MYRBETRIQ) 25 mg Tb24 Take by mouth. rosuvastatin (CRESTOR) 20 mg tablet Take 20 mg by mouth once daily. sertraline (ZOLOFT) 50 mg tablet Take 50 mg by mouth once daily. ergocalciferol 50,000 unit capsule (VITAMIN D2, DRISDOL) Take 50,000 Units by mouth one time a week. No current facility-administered medications for this visit. BP 145/77 Pulse 82 Temp 36.4 C (97.5 F) (Temporal) Ht 160 cm (5' 3 ) Wt (!) 152 kg (335 lb 3.2 oz) LMP 03/24/2024 (Approximate) BMI 59.38 kg/m Physical Exam Constitutional: The patient is well-developed, well-nourished, and in no distress. Abdominal: Soft, non-distended, mildly tender to palpation over hernia. Musculoskeletal: Normal range of motion. Neurological: She is alert. GCS score is 15. Skin: Skin is warm and dry. Psychiatric: Affect and judgment normal. Relevant Hernia Findings - 10 x 10cm R. Epigastric hernia lateral to midline incision. Incision extends from sub-xiphoid to just inferior to umbilicus. Hernia is soft but mildly tender to palpation, LABS: No results found for: HBA1C IMAGING - Reviewed with staff CT - 1x 6cm ventral hernia containing fat and bowel, 1x 7cm ventral hernia containing fat and bowel Assessment: Guerrero Ramos is a 43 year old female who presents with two incisional ventral hernias.BMI optimization is necessary prior to any surgical intervention. Plan: - Refer patient to [facility] for BMI optimization (Goal BMI 55) - Follow up in 3 months for further evaluation. Patient was seen and discussed with the attending physician, Dr. Franco. Christine Loo, MS4 [facility]06-13-2024 History and physical note* Christine Dorsey - 04/10/2024 9:13 AM EDT [facility] - HISTORY AND PHYSICAL Chief Complaint: abdominal pain associated with bulge HPI: Guerrero Raoms is a 43 year old female who presents with an abdominal bulge associated with moderate pain. Patient history is significant for BMI 59, T2DM. Bulge first noticed 3 years ago but pain and size had gotten progressively worse in the past year. Hospitalized for SBO in 01/2024 managed non-operatively. Patient denies any nausea, vomiting, constipation since the hospitalization. 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 Weight loss has been refractory to diet and ozempic/ mounjaro (patient does not tolerate side effects), and bariatric surgery is not currently covered by insurance for patient. Relevant previous operations include: Colon cancer c/b intussusception s/p L. Hemicolectomy and partial omentectomy (2015), lap cholecystectomy (2004) No history of Psychiatric Disorders or Opioid Use Independent Light physical labor Sporadic (once/month) N/A No past medical history on file. No past surgical history on file. Social History Tobacco Use Smoking status: Never Smokeless tobacco: Never Additional social history not relevant to the patient's HPI No family history on file. Additional family history not relevant to the patient's HPI ALLERGIES Allergen Reactions Penicillins Rash Current Outpatient Medications Medication Sig Dispense Refill ALPRAZolam (XANAX) 0.25 mg tablet Take 0.25 mg by mouth at bedtime as needed. Meloxicam 7.5 mg/5 mL susp Take by mouth. levothyroxine 75 mcg cap Take 75 mcg by mouth daily before breakfast. meclizine (ANTIVERT) 25 mg tab Take 25 mg by mouth three times a day. amLODIPine (NORVASC) 2.5 mg tablet Take by mouth once daily. ondansetron HCl (ZOFRAN ORAL) Take by mouth as needed. insulin glargine,hum.rec.anlog (TOUJEO MAX U-300 SOLOSTAR SUBCUTANEOUS) Inject subcutaneously. tolterodine (DETROL) 2 mg tablet Take 2 mg by mouth two times a day. mirabegron (MYRBETRIQ) 25 mg Tb24 Take by mouth. rosuvastatin (CRESTOR) 20 mg tablet Take 20 mg by mouth once daily. sertraline (ZOLOFT) 50 mg tablet Take 50 mg by mouth once daily. ergocalciferol 50,000 unit capsule (VITAMIN D2, DRISDOL) Take 50,000 Units by mouth one time a week. No current facility-administered medications for this visit. BP 145/77 Pulse 82 Temp 36.4 C (97.5 F) (Temporal) Ht 160 cm (5' 3 ) Wt (!) 152 kg (335 lb 3.2 oz) LMP 03/24/2024 (Approximate) BMI 59.38 kg/m Physical Exam Constitutional: The patient is well-developed, well-nourished, and in no distress. Abdominal: Soft, non-distended, mildly tender to palpation over hernia. Musculoskeletal: Normal range of motion. Neurological: She is alert. GCS score is 15. Skin: Skin is warm and dry. Psychiatric: Affect and judgment normal. Relevant Hernia Findings - 10 x 10cm R. Epigastric hernia lateral to midline incision. Incision extends from sub-xiphoid to just inferior to umbilicus. Hernia is soft but mildly tender to palpation, LABS: No results found for: HBA1C IMAGING - Reviewed with staff CT - 1x 6cm ventral hernia containing fat and bowel, 1x 7cm ventral hernia containing fat and bowel Assessment: Guerrero Ramos is a 43 year old female who presents with two incisional ventral hernias.BMI optimization is necessary prior to any surgical intervention. Plan: - Refer patient to [facility] for BMI optimization (Goal BMI 55) - Follow up in 3 months for further evaluation. Patient was seen and discussed with the attending physician, Dr. Franco. JEY Ham documented in this encounterWadsworth-[facility]06-13-2024 Nurse Note* Gisele Case MA - 04/10/2024 9:00 AM EDT What is the reason for your visit today? Consult Who is your referring physician? Self Are you having poor oral intake? NO Have you had unintentional weight loss of 15 lbs/7 Kg in the last 3-6 months? NO Bowels: regular Wound: clean & dry Temperature: No Drains: No [facility]06-13-2024 Nurse Note* Gisele Case MA - 04/10/2024 9:00 AM EDT What is the reason for your visit today? Consult Who is your referring physician? Self Are you having poor oral intake? NO Have you had unintentional weight loss of 15 lbs/7 Kg in the last 3-6 months? NO Bowels: regular Wound: clean & dry Temperature: No Drains: No documented in this encounterWadsworth-[facility]04-15-2024 Progress note Author Dawood Clemente [facility] February 11, 2024 7:59am Note Date/Time February 11, 2024 7:5 9am [facility] [address] [place] [address] General Surgery Progress Note Signed Patient: Guerrero Ramos MR#: [id number] : 1980 Acct:[id number] Age/Sex: 43 / F Adm Date: 4 Loc: 4 Room: [address] [place] [address] Type: ADM IN Attending Dr: Jayro Bucio MD Copies to: ~ Date of Service: 02/11/2024 Subjective Subjective HPI: Patient being followed for bowel obstruction. Patient tolerating liquids. Denies nausea or vomiting. Passing flatus and having bowel movement. Allergies & Medications Medications and Allergies Allergies Penicillins Allergy (Unknown, Verified 02/08/24 10:19) Hives Home Medications alprazolam 0.5 mg tablet (Xanax) 0.5 mg PO DAILY 09/23/17 [History Confirmed 02/08/24] meclizine 25 mg tablet 25 mg PO BID 09/23/17 [History Confirmed 02/08/24] sertraline 50 mg tablet (Zoloft) 50 mg PO DAILY 09/23/17 [History Confirmed 02/08/24] rosuvastatin 20 mg tablet 20 mg PO HS 08/20/22 [History Confirmed 02/08/24] trazodone 100 mg tablet 200 mg PO BID 08/20/22 [History Confirmed 02/08/24] ergocalciferol (vitamin D2) 1,250 mcg (50,000 unit) capsule 1,250 mcg PO QWEEK 08/20/23 [History Confirmed 02/08/24] insulin glargine U-300 conc 300 unit/mL (1.5 mL) subcutaneous pen (Toujeo SoloStar U-300 Insulin) 30 unit subcut DAILY 08/20/23 [History Confirmed 02/08/24] sitagliptin phosphate 25 mg tablet (Januvia) 25 mg PO DAILY 08/20/23 [History Confirmed 02/08/24] levothyroxine 75 mcg tablet 75 mcg PO QAM 02/08/24 [History Confirmed 02/08/24] meloxicam 7.5 mg tablet 7.5 mg PO QAM 02/08/24 [History Confirmed 02/08/24] mirabegron 25 mg tablet,extended release 24 hr (Myrbetriq) 25 mg PO DAILY 02/08/24 [History Confirmed 02/08/24] pen needle, diabetic 31 gauge x 15/64 02/08/24 [History Confirmed 02/08/24] sertraline 50 mg tablet 50 mg PO DAILY 02/08/24 [History Confirmed 02/08/24] tirzepatide 2.5 mg/0.5 mL subcutaneous pen injector (Palomounmarilinro) 2.5 mg subcut QWEEK 02/08/24 [History Confirmed 02/08/24] tolterodine 2 mg tablet 2 mg PO BID 02/08/24 [History Confirmed 02/08/24] Active Medications Dextrose (Dextrose 50% In Water 25 Gm/50 Ml Syringe) 0 gm IV-PUSH PRN PRN PRN Reason: Hypoglycemia Stop: 02/07/25 15:24 Glucose (Dextrose 40% Gel 15 Gm Tube) 0 gm PO PRN PRN PRN Reason: Hypoglycemia Stop: 02/07/25 15:24 Heparin Sodium (Porcine) (Heparin 5,000 Unit/Ml Vial) 5,000 unit SUBCUT Q8HR FANTASMA Stop: 02/07/25 21:59 Last Admin: 02/11/24 06:05 Dose: 5,000 unit Hydromorphone HCl (Hydromorphone 0.5 Mg/0.5 Ml Syringe) 0.5 mg IV-PUSH Q4H PRN PRN Reason: Pain Scale 8 - 10 Last Admin: 02/09/24 15:55 Dose: 0.5 mg Magnesium Sulfate (Magnesium Sulf 2gm-*Swfi*) 2 gm in 50 mls @ 25 mls/hr IV DAILY PRN PRN Reason: Magnesium Level < 1.7 Stop: 02/07/25 15:21 Sodium Chloride (0.9% Sodium Chloride 1,000 Ml) 1,000 mls @ 125 mls/hr IV .Q8H [facility] Stop: 02/08/25 10:59 Last Admin: 02/11/24 02:36 Dose: 125 mls/hr Ceftriaxone Sodium (Rocephin) 1 gm in 50 mls @ 100 mls/hr IV Q24H [facility] Last Admin: 02/10/24 12:12 Dose: 100 mls/hr Insulin Aspart (Insulin Aspart 300 Units/3 Ml Insuln.Pen) 0 units SUBCUT ACHS [facility]; Protocol Stop: 02/09/25 16:29 Last Admin: 02/10/24 21:47 Dose: Not Given Insulin Glargine (Insulin Glargine 300 Units/3 Ml Insuln.Pen) 15 units SUBCUT DAILY [facility] Stop: 02/08/25 08:59 Last Admin: 02/10/24 10:46 Dose: Not Given Ondansetron HCl (Ondansetron 4 Mg/2 Ml Vial) 4 mg IV-PUSH Q4H PRN PRN Reason: Nausea And Vomiting Stop: 02/07/25 15:16 Potassium Chloride (Potassium Chloride Er 20 Meq Tab.Er.Prt) 40 meq PO DAILY PRN PRN Reason: Hypokalemia Stop: 02/07/25 15:21 Sodium Chloride (Sodium Chloride 0.9 % 10 Ml Syringe) 0 ml IV-PUSH PRN PRN PRN Reason: Flush Stop: 02/07/25 09:57 Last Admin: 02/09/24 15:56 Dose: 10 ml Sodium Chloride (Sodium Chloride 0.9 % 10 Ml Syringe) 0 ml IV-PUSH QSHIFT [facility] Stop: 02/07/25 21:59 Last Admin: 02/11/24 06:07 Dose: Not Given Exam Physical Exam Vital Signs: Temp Pulse Resp BP Pulse Ox O2 Del Method O2 Flow Rate 98.4 F 80 17 136/77 94 L Room Air 2 02/11/24 03:11 02/11/24 03:11 02/11/24 03:11 02/11/24 03:11 02/11/24 03:11 02/11/24 03:11 02/11/24 00:02 Const General: cooperative and no acute distress GI Palpation: soft, no guarding and tender (Minimal tenderness over her midline hernia) in the RUQ Neuro General: patient alert and patient awake Objective Pain Assessment Abdomen: Pain Intensity: 2 Head: Pain Description: Aching Pain Intensity: 5 Intake & Output 24 hour I&O: Intake & Output 02/10/24 02/10/24 02/11/24 15:59 23:59 07:59 Intake Total 1000 / 2000 800 / 2800 1300 / 1300 Output Total 400 / 800 750 / 750 Balance 1000 / 1600 400 / 2000 550 / 550 Weight 155.9 kg Labs 02/11/24 06:47 02/10/24 05:24 Laboratory Results - Last 48 hrs. 02/11/24 06:47: Corrected WBC 5.4, Uncorrected WBC Count 5.4, RBC 4.27, Hgb 11.3L, Hct 33.3 L, MCV 78.0 L, MCH 26.4, MCHC 33.8, RDW 14.5, Plt Count 209, MPV 7.2, Neut % (Auto) 66.3, Lymph % (Auto) 21.4, [place] % (Auto) 6.9, Eos % (Auto) 4.9, Baso % (Auto) 0.5, Nucleat RBC Rel Count 0.3, Neut # (Auto) 3.6, Lymph # (Auto) 1.2, [place] # (Auto) 0.4, Eos # (Auto) 0.3, Baso # (Auto) 0.0 02/10/24 21:35: POC Glucose 127 02/10/24 15:57: POC Glucose 160 02/10/24 12:00: POC Glucose 127 02/10/24 06:12: POC Glucose 140 02/10/24 05:24: Corrected WBC 5.3, Uncorrected WBC Count 5.3, RBC 4.35, Hgb 11.5L, Hct 34.4, MCV 79.0 L, MCH 26.4, MCHC 33.4, RDW 14.4, Plt Count 209, MPV 7.5, Neut % (Auto) 66.3, Lymph % (Auto) 20.8, [place] % (Auto) 7.4, Eos % (Auto) 5.0, Baso % (Auto) 0.5, Nucleat RBC Rel Count 0.3, Neut # (Auto) 3.5, Lymph # (Auto) 1.1, [place] # (Auto) 0.4, Eos # (Auto) 0.3, Baso # (Auto) 0.0, PHA Creatinine Clear 34.65, Sodium 145 D, Potassium 3.8, Chloride 106, Carbon Dioxide 29.9, Anion Gap 12.9, BUN 31 H, Creatinine 3.06 H, Est GFR (CKD-EPI) 18.615, Glucose 135 H, Calcium 8.3 L, Total Bilirubin 0.4, AST 25, ALT 27, Alkaline Phosphatase 62, Total Protein 5.8 L, Albumin 3.3 L, Globulin 2.5, Albumin/Globulin Ratio 1.3 02/09/24 23:58: POC Glucose 127 02/09/24 17:26: POC Glucose 138 02/09/24 12:00: POC Glucose 145 02/09/24 05:29: Estimat Average Glucose 214, Hemoglobin A1c 9.1 H Microbiology Microbiology 02/08/24 10:57 Urine - Clean-Voided Midstream Urine Culture - Final Proteus mirabilis A&P - General Surgery Assessment/Plan (1) Bowel obstruction: Qualifiers: Intestinal obstruction type: unspecified Intestinal obstruction extent:partial Qualified Code(s): K56.600 - Partial intestinal obstruction, unspecified as to cause (2) History of colon cancer: (3) BMI 60.0-69.9, adult: Plan Advance diet. If tolerates, can consider discharge. Continue to increase activity, ambulate. At some point, patient may require repair of her ventral hernias. Because of the multiple hernias and her size, this is probably best done at a tertiary [facility]. Documented By: Dawood Clemente MD 02/11/24 0758 Signed By: <Electronically signed by MD Dawood Clemente> 02/11/24 0759 [facility] Work Phone: 1([phone] Progress note Author Jayro Bucio [facility] February 10, 2024 12:18pm Note Date/Time February 10, 2024 12: 18pm [facility] [address] [place] [address] Hospitalist Progress Note Signed Patient: Guerrero Ramos MR#: [id number] : 1980 Acct:[id number] Age/Sex: 43 / F Adm Date: 4 Loc: Room: 6M6312-7 Type: ADM IN Attending Dr: Jayro Bucio MD Copies to: ~ Date of Service: 02/10/2024 Subjective Subjective Narrative: Patient feeling somewhat improved today. She is having small bowel movements and passing flatus. NG tube was removed today by general surgery. Patient notes no nausea or abdominal pain since NG tube was removed. She has been taking sips of water. Exam Physical Exam Vital Signs: Temp Pulse Resp BP Pulse Ox O2 Del Method O2 Flow Rate 97.9 F 83 20 147/95 H 94 L Nasal Cannula 2 02/10/24 07:40 02/10/24 07:40 02/10/24 07:40 02/10/24 07:40 02/10/24 07:40 02/10/24 08:44 02/10/24 00:00 Narrative: GEN: Alert, Oriented, No distress, elevated BMI HEAD: NC/AT, EOMI, Pupils equal and reactive NECK: Supple, non-tender, no meningismus CARDIO: RRR RESP: Clear bilaterally, no distress ABD: Right mid abdominal and upper abdominal pain with palpation, there is a palpable ventral hernia that is large no obvious signs of incarceration or strangulation, there is no skin discoloration over the abdomen BACK: No midline tenderness, no paraspinal tenderness EXT: Atraumatic, full ROM x4 extremities, palpable/symmetric DP/RP B/L Skin: No rash, intact NEURO: No focal neurologic deficits Objective Lab Results 02/10/24 05:24 02/10/24 05:24 Microbiology Results Microbiology 02/08/24 10:57 Urine - Clean-Voided Midstream Urine Culture - Final Proteus mirabilis Meds Allergies and Active Meds Allergies Penicillins Allergy (Unknown, Verified 02/08/24 10:19) Hives Active Meds: Active Medications Generic Name Dose Route Start Last Admin Trade Name Freq PRN Reason Stop Dose Admin Dextrose 0 gm 02/08/24 15:25 Dextrose 50% In Water 25 Gm/50 Ml Syringe IV-PUSH 02/07/25 15:24 PRN PRN Hypoglycemia Glucose 0 gm 02/08/24 15:25 Dextrose 40% Gel 15 Gm Tube PO 02/07/25 15:24 PRN PRN Hypoglycemia Heparin Sodium (Porcine) 5,000 unit 02/08/24 22:00 02/10/24 05:37 Heparin 5,000 Unit/Ml Vial SUBCUT 02/07/25 21:59 5,000 unit Q8HR FANTASMA Administration Hydromorphone HCl 0.5 mg 02/08/24 15:17 02/09/24 15:55 Hydromorphone 0.5 Mg/0.5 Ml Syringe IV-PUSH 0.5 mg Q4H PRN Administration Pain Scale 8 - 10 Magnesium Sulfate 2 gm in 50 mls @ 25 mls/hr 02/08/24 15:22 Magnesium Sulf 2gm-*Swfi* IV 02/07/25 15:21 DAILY PRN Magnesium Level < 1.7 Sodium Chloride 1,000 mls @ 125 mls/hr 02/09/24 11:00 02/10/24 05:36 0.9% Sodium Chloride 1,000 Ml IV 02/08/25 10:59 125 mls/hr .Q8H FANTASMA Administration Ceftriaxone Sodium 1 gm in 50 mls @ 100 mls/hr 02/09/24 12:00 02/09/24 12:06 Rocephin IV 100 mls/hr Q24H FANTASMA Administration Insulin Aspart 0 units 02/10/24 16:30 Insulin Aspart 300 Units/3 Ml Insuln.Pen SUBCUT 02/09/25 16:29 ACHS [facility] Protocol Insulin Glargine 15 units 02/09/24 09:00 02/10/24 10:46 Insulin Glargine 300 Units/3 Ml Insuln.Pen SUBCUT 02/08/25 08:59 Not Given DAILY FANTASMA Ondansetron HCl 4 mg 02/08/24 15:17 Ondansetron 4 Mg/2 Ml Vial IV-PUSH 02/07/25 15:16 Q4H PRN Nausea And Vomiting Potassium Chloride 40 meq 02/08/24 15:22 Potassium Chloride Er 20 Meq Tab.Er.Prt PO 02/07/25 15:21 DAILY PRN Hypokalemia Sodium Chloride 0 ml 02/08/24 09:58 02/09/24 15:56 Sodium Chloride 0.9 % 10 Ml Syringe IV-PUSH 02/07/25 09:57 10 ml PRN PRN Administration Flush Sodium Chloride 0 ml 02/08/24 22:00 02/10/24 05:38 Sodium Chloride 0.9 % 10 Ml Syringe IV-PUSH 02/07/25 21:59 10 ml QSHIFT FANTASMA Administration A&P - Hospitalist Assessment/Plan (1) Partial small bowel obstruction: Plan Partial Small Bowel Obstruction Multiple Ventral Hernias History of Colon Cancer s/p Resection NG tube removed today. Patient is passing bowel movements and flatus. -Serial abdominal examinations -Currently on liquid diet, advance as tolerated -Continue strict intake and output -Appreciate general surgery assessment and management Acute complicated UTI Initiated on IV ceftriaxone given Proteus growing in the urine. -Plan for 5-day course of IV ceftriaxone Other chronic medical conditions noted below, continue home regimens unless otherwise specified: Morbid obesity (BMI 60) Depressive disorder NOS HLD CKD III CODE STATUS: Full Code Documented By: Jayro Bucio MD 4 1210 Signed By: <Electronically signed by Jayro Bucio MD> 02/10/24 1218 [facility] Work Phone: 1(607) [phone] Progress note Author Allison Melgar [facility] February 10, 2024 11:50am Note Date/Time February 10, 2024 11: 49am [facility] [address] [place] [address] Nephrology Progress Note Signed Patient: Guerrero Ramos MR#: [id number] : 1980 Acct:[id number] Age/Sex: 43 / F Adm Date: 4 Loc: 4N Room: [address] [place] [address] Type: ADM IN Attending Dr: Jayro Bucio MD Copies to: ~ Date of Service: 02/10/2024 Subjective Subjective Narrative: This is a 43-year female with a medical history of CKD, colon cancer status postsurgical resection, multiple ventral hernias, HLD, CKD, DM and proteinuria was presented with intractable nausea and vomiting. In the emergency room patient had a CAT scan abdomen pelvis done which showed mild bowel distention of loop ofsmall bowel concerning for partial obstruction. General surgery was consulted and recommended NG tube decompression. Patient was also found to have elevated serum creatinine 2.1 mg/dL. She was started on gentle fluid situation and renalfunction continues decline and serum creatinine went up 3.5 mg/dL. Patient has a known history of CKD and follows in our office for CKD care. She recently missed her appointment. 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 Nephrology is consulted for RIO on CKD management. Interim history She has RIO likely due to the hypovolemia in setting of bowel obstruction. Renal function is improving with fluid resuscitation. She was followed by general surgery for SBO and NG decompression was discontinued today. She started on clear liquid. Patient seen and examined bedside. She is feeling better today denies any abdominal pain or nausea vomiting. She reported she passed gas. Denies any chest pain palpitation or shortness of breath. Exam Physical Exam Vital Signs: Temp Pulse Resp BP Pulse Ox O2 Del Method O2 Flow Rate 97.9 F 83 20 147/95 H 94 L Nasal Cannula 2 02/10/24 07:40 02/10/24 07:40 02/10/24 07:40 02/10/24 07:40 02/10/24 07:40 02/10/24 08:44 02/10/24 00:00 Narrative: General: Appears comfortable and not in distress Heart: S1-S2, no rub Lung: Bilateral air entry, no wheezing or crackles Abdomen: Soft, positive bowel sounds Extremities: No edema, no cyanosis Head: Atraumatic, normocephalic Ear: No gross hearing Deficit or external ear redness Eyes: No pallor or redness Neck: No JVD or visible mass Skin: No rashes , warm to touch PROJECT ACCOUNTANT: Awake,Alert, following simple command Musculoskeletal: No swelling or limitation of movement of the large joints Psychiatric: Cooperative, normal mood and affect Objective Intake and Output I&O: Intake & Output 02/07/24 02/08/24 02/09/24 02/10/24 23:59 23:59 23:59 23:59 Intake Total 2310 / 2310 1000 / 1000 Output Total 50 / 50 1750 / 1750 400 / 400 Balance -50 / -50 560 / 560 600 / 600 Weight 154.221 kg 156 kg 155.3 kg Meds and Allergies Meds: Active Medications Dextrose (Dextrose 50% In Water 25 Gm/50 Ml Syringe) 0 gm IV-PUSH PRN PRN PRN Reason: Hypoglycemia Stop: 02/07/25 15:24 Glucose (Dextrose 40% Gel 15 Gm Tube) 0 gm PO PRN PRN PRN Reason: Hypoglycemia Stop: 02/07/25 15:24 Heparin Sodium (Porcine) (Heparin 5,000 Unit/Ml Vial) 5,000 unit SUBCUT Q8HR [facility] Stop: 02/07/25 21:59 Last Admin: 02/10/24 05:37 Dose: 5,000 unit Hydromorphone HCl (Hydromorphone 0.5 Mg/0.5 Ml Syringe) 0.5 mg IV-PUSH Q4H PRN PRN Reason: Pain Scale 8 - 10 Last Admin: 02/09/24 15:55 Dose: 0.5 mg Magnesium Sulfate (Magnesium Sulf 2gm-*Swfi*) 2 gm in 50 mls @ 25 mls/hr IV DAILY PRN PRN Reason: Magnesium Level < 1.7 Stop: 02/07/25 15:21 Sodium Chloride (0.9% Sodium Chloride 1,000 Ml) 1,000 mls @ 125 mls/hr IV .Q8H [facility] Stop: 02/08/25 10:59 Last Admin: 02/10/24 05:36 Dose: 125 mls/hr Ceftriaxone Sodium (Rocephin) 1 gm in 50 mls @ 100 mls/hr IV Q24H [facility] Last Admin: 02/09/24 12:06 Dose: 100 mls/hr Insulin Aspart (Insulin Aspart 300 Units/3 Ml Insuln.Pen) 0 units SUBCUT Q6HR [facility]; Protocol Stop: 02/07/25 17:59 Last Admin: 02/10/24 08:59 Dose: Not Given Insulin Glargine (Insulin Glargine 300 Units/3 Ml Insuln.Pen) 15 units SUBCUT DAILY [facility] Stop: 02/08/25 08:59 Last Admin: 02/10/24 10:46 Dose: Not Given Ondansetron HCl (Ondansetron 4 Mg/2 Ml Vial) 4 mg IV-PUSH Q4H PRN PRN Reason: Nausea And Vomiting Stop: 02/07/25 15:16 Potassium Chloride (Potassium Chloride Er 20 Meq Tab.Er.Prt) 40 meq PO DAILY PRN PRN Reason: Hypokalemia Stop: 02/07/25 15:21 Sodium Chloride (Sodium Chloride 0.9 % 10 Ml Syringe) 0 ml IV-PUSH PRN PRN PRN Reason: Flush Stop: 02/07/25 09:57 Last Admin: 02/09/24 15:56 Dose: 10 ml Sodium Chloride (Sodium Chloride 0.9 % 10 Ml Syringe) 0 ml IV-PUSH QSHIFT FANTASMA Stop: 02/07/25 21:59 Last Admin: 02/10/24 05:38 Dose: 10 ml Allergies Penicillins Allergy (Unknown, Verified 02/08/24 10:19) Hives Results - Nephrology Labs 02/10/24 05:24 02/10/24 05:24 Labs: 02/10/24 05:24 BUN 31 H Creatinine 3.06 H Albumin 3.3 L Radiology Impressions Impressions - last 24 hours: Impressions Abdomen X-Ray 02/10/24 05:00 IMPRESSION: Dilated air-filled colon is redemonstrated with a few mildly prominent loops of small bowel. Stool and bowel gas reaches the rectum. The enteric tube is in satisfactory position. Impression dictated by: Chaz Fitzgerald M.D.02/10/2024 8:44 AM Dictation Location: [place] [address] Any impression(s) listed above is documentation that was entered by the reading physician into a diagnostic report(s) for Guerrero Juarez Ramos. I have reviewed the report(s) and am incorporating any findings in the treatment plan of this patient where applicable. A&P - Nephrology Assessment/Plan (1) Acute kidney injury superimposed on chronic kidney disease: Assessment/Problem Details: She has acute kidney injury likely due to hypovolemia in setting of bowel obstruction. She has no evidence of obstructive uropathy on CAT scan (2) CKD (chronic kidney disease) stage 3, GFR 30-59 ml/min: Assessment/Problem Details: She has a CKD due to the diabetic nephropathy and hypertensive nephrosclerosis with baseline serum creatinine 1.8 mg/dL. (3) Bowel obstruction: Assessment/Problem Details: Patient has a bowel obstruction and currently on NG decompression. General surgery has been following the patient. (4) Type 2 diabetes mellitus with diabetic chronic kidney disease: Assessment/Problem Details: She has insulin-dependent type 2 diabetes mellitus. She takes insulin glargine at home (5) Proteinuria: Assessment/Problem Details: She has a proteinuria likely due to diabetic kidney disease. Plan * Continue IV fluid to NS and increase the rate to 125 mL/h * Continue DM management as per the primary hospitalist team. * Check renal function daily and monitor input output * Continue management of the bowel obstruction as per the general surgery. * Documented By: Allison Melgar MD 02/10/24 1147 Signed By: <Electronically signed by Allison Melgar MD> 02/10/24 1150 [facility] Work Phone: [phone]) [phone] Progress note Author Dawood Clemente [facility] February 10, 2024 10:01am Note Date/Time February 10, 2024 10: 01am [facility] [address] [place] [address] General Surgery Progress Note Signed Patient: Guerrero Ramos MR#: [id number] : 1980 Acct:[id number] Age/Sex: 43 / F Adm Date: 4 Loc: 4N Room: [address] [place] [address] Type: ADM IN Attending Dr: Jayro Bucio MD Copies to: ~ Date of Service: 02/10/2024 Subjective Subjective HPI: Patient being followed by obstruction. Patient having less pain. Passing some flatus and had small bowel movement. Allergies & Medications Medications and Allergies Allergies Penicillins Allergy (Unknown, Verified 02/08/24 10:19) Hives Home Medications alprazolam 0.5 mg tablet (Xanax) 0.5 mg PO DAILY 09/23/17 [History Confirmed 02/08/24] meclizine 25 mg tablet 25 mg PO BID 09/23/17 [History Confirmed 02/08/24] sertraline 50 mg tablet (Zoloft) 50 mg PO DAILY 09/23/17 [History Confirmed 02/08/24] rosuvastatin 20 mg tablet 20 mg PO HS 08/20/22 [History Confirmed 02/08/24] trazodone 100 mg tablet 200 mg PO BID 08/20/22 [History Confirmed 02/08/24] ergocalciferol (vitamin D2) 1,250 mcg (50,000 unit) capsule 1,250 mcg PO QWEEK 08/20/23 [History Confirmed 02/08/24] insulin glargine U-300 conc 300 unit/mL (1.5 mL) subcutaneous pen (Toujeo SoloStar U-300 Insulin) 30 unit subcut DAILY 08/20/23 [History Confirmed 02/08/24] sitagliptin phosphate 25 mg tablet (Januvia) 25 mg PO DAILY 08/20/23 [History Confirmed 02/08/24] levothyroxine 75 mcg tablet 75 mcg PO QAM 02/08/24 [History Confirmed 02/08/24] meloxicam 7.5 mg tablet 7.5 mg PO QAM 02/08/24 [History Confirmed 02/08/24] mirabegron 25 mg tablet,extended release 24 hr (Myrbetriq) 25 mg PO DAILY 02/08/24 [History Confirmed 02/08/24] pen needle, diabetic 31 gauge x 15/64 02/08/24 [History Confirmed 02/08/24] sertraline 50 mg tablet 50 mg PO DAILY 02/08/24 [History Confirmed 02/08/24] tirzepatide 2.5 mg/0.5 mL subcutaneous pen injector (Mounjaro) 2.5 mg subcut QWEEK 02/08/24 [History Confirmed 02/08/24] tolterodine 2 mg tablet 2 mg PO BID 02/08/24 [History Confirmed 02/08/24] Active Medications Bisacodyl (Bisacodyl 10 Mg Supp.Rect) 10 mg CA ONCE ONE Stop: 02/10/24 09:59 Dextrose (Dextrose 50% In Water 25 Gm/50 Ml Syringe) 0 gm IV-PUSH PRN PRN PRN Reason: Hypoglycemia Stop: 02/07/25 15:24 Glucose (Dextrose 40% Gel 15 Gm Tube) 0 gm PO PRN PRN PRN Reason: Hypoglycemia Stop: 02/07/25 15:24 Heparin Sodium (Porcine) (Heparin 5,000 Unit/Ml Vial) 5,000 unit SUBCUT Q8HR [facility] Stop: 02/07/25 21:59 Last Admin: 02/10/24 05:37 Dose: 5,000 unit Hydromorphone HCl (Hydromorphone 0.5 Mg/0.5 Ml Syringe) 0.5 mg IV-PUSH Q4H PRN PRN Reason: Pain Scale 8 - 10 Last Admin: 02/09/24 15:55 Dose: 0.5 mg Magnesium Sulfate (Magnesium Sulf 2gm-*Swfi*) 2 gm in 50 mls @ 25 mls/hr IV DAILY PRN PRN Reason: Magnesium Level < 1.7 Stop: 02/07/25 15:21 Sodium Chloride (0.9% Sodium Chloride 1,000 Ml) 1,000 mls @ 125 mls/hr IV .Q8H [facility] Stop: 02/08/25 10:59 Last Admin: 02/10/24 05:36 Dose: 125 mls/hr Ceftriaxone Sodium (Rocephin) 1 gm in 50 mls @ 100 mls/hr IV Q24H [facility] Last Admin: 02/09/24 12:06 Dose: 100 mls/hr Insulin Aspart (Insulin Aspart 300 Units/3 Ml Insuln.Pen) 0 units SUBCUT Q6HR [facility]; Protocol Stop: 02/07/25 17:59 Last Admin: 02/10/24 08:59 Dose: Not Given Insulin Glargine (Insulin Glargine 300 Units/3 Ml Insuln.Pen) 15 units SUBCUT DAILY [facility] Stop: 02/08/25 08:59 Last Admin: 02/09/24 09:05 Dose: 15 units Ondansetron HCl (Ondansetron 4 Mg/2 Ml Vial) 4 mg IV-PUSH Q4H PRN PRN Reason: Nausea And Vomiting Stop: 02/07/25 15:16 Potassium Chloride (Potassium Chloride Er 20 Meq Tab.Er.Prt) 40 meq PO DAILY PRN PRN Reason: Hypokalemia Stop: 02/07/25 15:21 Sodium Chloride (Sodium Chloride 0.9 % 10 Ml Syringe) 0 ml IV-PUSH PRN PRN PRN Reason: Flush Stop: 02/07/25 09:57 Last Admin: 02/09/24 15:56 Dose: 10 ml Sodium Chloride (Sodium Chloride 0.9 % 10 Ml Syringe) 0 ml IV-PUSH QSHIFT [facility] Stop: 02/07/25 21:59 Last Admin: 02/10/24 05:38 Dose: 10 ml Exam Physical Exam Vital Signs: Temp Pulse Resp BP Pulse Ox O2 Del Method O2 Flow Rate 97.9 F 83 20 147/95 H 94 L Nasal Cannula 2 02/10/24 07:40 02/10/24 07:40 02/10/24 07:40 02/10/24 07:40 02/10/24 07:40 02/10/24 08:44 02/10/24 00:00 Const General: cooperative and no acute distress GI Inspection: obesity Palpation: soft, no guarding and tender (Much less tender over her midline hernia) in the RUQ Neuro General: patient alert and patient awake Objective Pain Assessment Abdomen: Pain Intensity: 2 Head: Pain Description: Aching Pain Intensity: 5 Intake & Output 24 hour I&O: Intake & Output 02/09/24 02/10/24 02/10/24 23:59 07:59 15:59 Intake Total 1160 / 2310 1000 / 1000 Output Total 1450 / 1750 400 / 400 Balance -290 / 560 600 / 600 Weight 155.3 kg Labs 02/10/24 05:24 02/10/24 05:24 Laboratory Results - Last 48 hrs. 02/10/24 06:12: POC Glucose 140 02/10/24 05:24: Corrected WBC 5.3, Uncorrected WBC Count 5.3, RBC 4.35, Hgb 11.5L, Hct 34.4, MCV 79.0 L, MCH 26.4, MCHC 33.4, RDW 14.4, Plt Count 209, MPV 7.5, Neut % (Auto) 66.3, Lymph % (Auto) 20.8, [place] % (Auto) 7.4, Eos % (Auto) 5.0, Baso % (Auto) 0.5, Nucleat RBC Rel Count 0.3, Neut # (Auto) 3.5, Lymph # (Auto) 1.1, [place] # (Auto) 0.4, Eos # (Auto) 0.3, Baso # (Auto) 0.0, PHA Creatinine Clear 34.65, Sodium 145 D, Potassium 3.8, Chloride 106, Carbon Dioxide 29.9, Anion Gap 12.9, BUN 31 H, Creatinine 3.06 H, Est GFR (CKD-EPI) 18.615, Glucose 135 H, Calcium 8.3 L, Total Bilirubin 0.4, AST 25, ALT 27, Alkaline Phosphatase 62, Total Protein 5.8 L, Albumin 3.3 L, Globulin 2.5, Albumin/Globulin Ratio 1.3 02/09/24 23:58: POC Glucose 127 02/09/24 17:26: POC Glucose 138 02/09/24 12:00: POC Glucose 145 02/09/24 05:29: Corrected WBC 6.8, Uncorrected WBC Count 6.8, RBC 4.91, Hgb 12.7, Hct 39.0, MCV 79.4 L, MCH 25.9, MCHC 32.6, RDW 14.7, Plt Count 231, MPV 7.5, Neut % (Auto) 62.6, Lymph % (Auto) 22.9, [place] % (Auto) 8.7, Eos % (Auto) 5.3, Baso % (Auto) 0.5, Nucleat RBC Rel Count 0.3, Neut # (Auto) 4.2, Lymph # (Auto) 1.6, [place] # (Auto) 0.6, Eos # (Auto) 0.4, Baso # (Auto) 0.0, PT 12.0, INR1.0, APTT 31.5, PHA Creatinine Clear 30.39, Sodium 139, Potassium 3.9, Chloride 100, Carbon Dioxide 31.6 H, Anion Gap 11.3, BUN 32 H, Creatinine 3.50 H D, Est GFR (CKD-EPI) 15.844, Glucose 154 H, Estimat Average Glucose 214, Hemoglobin A1c9.1 H, Calcium 9.1, Total Bilirubin 0.6, AST 35, ALT 36, Alkaline Phosphatase 70, Total Protein 6.4, Albumin 3.6, Globulin 2.8, Albumin/Globulin Ratio 1.3 02/09/24 05:28: POC Glucose 164 02/09/24 00:39: POC Glucose 165 02/08/24 17:39: POC Glucose 129 02/08/24 12:05: POC Creatinine 2.3 H, POC Estimated GFR (eGFR) 26.222 02/08/24 10:57: Urine Color Yellow, Urine Appearance Cloudy A, Urine pH 5.5, Ur Specific [place] 1.025, Urine Protein >=1000 H, Urine Glucose (UA) Normal, UrineKetones Trace H, Urine Occult Blood Negative, Urine Nitrite Negative, Urine Bilirubin Negative, Urine Urobilinogen Normal, Ur Leukocyte Esterase 2+ H, UrineRBC 3-4, Urine WBC 20-49 H, Ur Squamous Epith Cells 10-19 H, Urine Bacteria 2+ H, Hyaline Casts None seen, Other Casts None seen, Urine HCG, Qual Negative 02/08/24 10:55: SARS-CoV-2 Rap RNA(RT-PCR) Negative 02/08/24 10:15: Corrected WBC 7.1, Uncorrected WBC Count 7.1, RBC 5.18 H, Hgb 13.5, Hct 40.5, MCV 78.2 L, MCH 26.1, MCHC 33.4, RDW 14.5, Plt Count 259, MPV 7.5, Neut % (Auto) 68.3, Lymph % (Auto) 21.6, [place] % (Auto) 5.1, Eos % (Auto) 4.1, Baso % (Auto) 0.9, Nucleat RBC Rel Count 0.3, Neut # (Auto) 4.8, Lymph # (Auto) 1.5, [place] # (Auto) 0.4, Eos # (Auto) 0.3, Baso # (Auto) 0.1, Monocyte Dist Width 17.42, PT 11.4, INR 1.0, PHA Creatinine Clear 49.79, Sodium 138, Potassium 4.0, Chloride 101, Carbon Dioxide 29.9, Anion Gap 11.1, BUN 26 H, Creatinine 2.12 H, Est GFR (CKD-EPI) 28.916, Glucose 164 H, Calcium 9.6, Total Bilirubin 0.5, Direct Bilirubin 0.10, Indirect Bilirubin 0.4, AST 47 H, ALT 40, Alkaline Phosphatase 65, Total Protein 7.3, Albumin 3.8, Globulin 3.5, Albumin/Globulin Ratio 1.1, Lipase 8.0 L Microbiology Microbiology 02/08/24 10:57 Urine - Clean-Voided Midstream Urine Culture - Final Proteus mirabilis A&P - General Surgery Assessment/Plan (1) Bowel obstruction: Qualifiers: Intestinal obstruction type: unspecified Intestinal obstruction extent:partial Qualified Code(s): K56.600 - Partial intestinal obstruction, unspecified as to cause (2) History of colon cancer: (3) BMI 60.0-69.9, adult: Plan Discontinue nasogastric tube. Clear liquids. Continue to increase activity, ambulate. At some point, patient may require repair of her ventral hernias. Because of the multiple hernias and her size, this is probably best done at a tertiary [facility]. Documented By: Dawood Clemente MD 02/10/24 1000 Signed By: <Electronically signed by MD Dawood Clemente> 02/10/24 1001 [facility] Work Phone: [phone]) [phone] Progress note Author Jayro Bucio [facility] February 09, 2024 8:04pm Note Date/Time February 09, 2024 6:0 7pm [facility] [address] [place] [address] Hospitalist Progress Note Signed with Addenda Patient: Guerrero Ramos MR#: [id number] : 1980 Acct:[id number] Age/Sex: 43 / F Adm Date: 4 Loc: Room: [address] [place] [address] Type: ADM IN Attending Dr: Jayro Bucio MD Copies to: ~ ADDENDUM1 RIO on CKD Renal function worsened from baseline. Will start on IV antibiotic therapy for UTI. Consulted nephrology for comanagement including IV hydration recs Addendum Documented By: Jayro Bucio MD 02/09/242003 Addendum Signed By: <Electronically signed by Jayro Bucio MD> 02/09/242003 Date of Service: 02/09/2024 Subjective Subjective Narrative: NG tube in place, significant output still with approximately 600 cc from 6 AM to 4 PM. Patient did have bowel movement after enema today which was mostly liquid. Otherwise, pain is reasonably well-controlled at this time. Exam Physical Exam Vital Signs: Temp Pulse Resp BP Pulse Ox O2 Del Method O2 Flow Rate 98.7 F 92 20 114/41 L 92 L Room Air 2 02/09/24 15:47 02/09/24 15:47 02/09/24 15:47 02/09/24 15:47 02/09/24 15:47 02/09/24 16:00 02/09/24 11:35 Narrative: GEN: Alert, Oriented, No distress, elevated BMI HEAD: NC/AT, EOMI, Pupils equal and reactive NECK: Supple, non-tender, no meningismus CARDIO: RRR RESP: Clear bilaterally, no distress ABD: Right mid abdominal and upper abdominal pain with palpation, there is a palpable ventral hernia that is large no obvious signs of incarceration or strangulation, there is no skin discoloration over the abdomen BACK: No midline tenderness, no paraspinal tenderness EXT: Atraumatic, full ROM x4 extremities, palpable/symmetric DP/RP B/L Skin: No rash, intact NEURO: No focal neurologic deficits Objective Lab Results 02/09/24 05:29 02/09/24 05:29 Microbiology Results Microbiology 02/08/24 10:57 Urine - Clean-Voided Midstream Urine Culture - Preliminary Proteus mirabilis Meds Allergies and Active Meds Allergies Penicillins Allergy (Unknown, Verified 02/08/24 10:19) Hives Active Meds: Active Medications Generic Name Dose Route Start Last Admin Trade Name Freq PRN Reason Stop Dose Admin Dextrose 0 gm 02/08/24 15:25 Dextrose 50% In Water 25 Gm/50 Ml Syringe IV-PUSH 02/07/25 15:24 PRN PRN Hypoglycemia Glucose 0 gm 02/08/24 15:25 Dextrose 40% Gel 15 Gm Tube PO 02/07/25 15:24 PRN PRN Hypoglycemia Heparin Sodium (Porcine) 5,000 unit 02/08/24 22:00 02/09/24 14:21 Heparin 5,000 Unit/Ml Vial SUBCUT 02/07/25 21:59 5,000 unit Q8HR FANTASMA Administration Hydromorphone HCl 0.5 mg 02/08/24 15:17 02/09/24 15:55 Hydromorphone 0.5 Mg/0.5 Ml Syringe IV-PUSH 0.5 mg Q4H PRN Administration Pain Scale 8 - 10 Magnesium Sulfate 2 gm in 50 mls @ 25 mls/hr 02/08/24 15:22 Magnesium Sulf 2gm-*Swfi* IV 02/07/25 15:21 DAILY PRN Magnesium Level < 1.7 Sodium Chloride 1,000 mls @ 125 mls/hr 02/09/24 11:00 02/09/24 12:45 0.9% Sodium Chloride 1,000 Ml IV 02/08/25 10:59 125 mls/hr .Q8H FANTASMA Administration Ceftriaxone Sodium 1 gm in 50 mls @ 100 mls/hr 02/09/24 12:00 02/09/24 12:06 Rocephin IV 100 mls/hr Q24H FANTASMA Administration Insulin Aspart 0 units 02/08/24 18:00 02/09/24 17:51 Insulin Aspart 300 Units/3 Ml Insuln.Pen SUBCUT 02/07/25 17:59 Not Given Q6HR [facility] Protocol Insulin Glargine 15 units 02/09/24 09:00 02/09/24 09:05 Insulin Glargine 300 Units/3 Ml Insuln.Pen SUBCUT 02/08/25 08:59 15 units DAILY FANTASMA Administration Ondansetron HCl 4 mg 02/08/24 15:17 Ondansetron 4 Mg/2 Ml Vial IV-PUSH 02/07/25 15:16 Q4H PRN Nausea And Vomiting Potassium Chloride 40 meq 02/08/24 15:22 Potassium Chloride Er 20 Meq Tab.Er.Prt PO 02/07/25 15:21 DAILY PRN Hypokalemia Sodium Chloride 0 ml 02/08/24 09:58 02/09/24 15:56 Sodium Chloride 0.9 % 10 Ml Syringe IV-PUSH 02/07/25 09:57 10 ml PRN PRN Administration Flush Sodium Chloride 0 ml 02/08/24 22:00 02/09/24 14:23 Sodium Chloride 0.9 % 10 Ml Syringe IV-PUSH 02/07/25 21:59 10 ml QSHIFT FANTASMA Administration A&P - Hospitalist Assessment/Plan (1) Partial small bowel obstruction: Plan Partial Small Bowel Obstruction Multiple Ventral Hernias History of Colon Cancer s/p Resection NG tube in place. Patient continues to have a lot of NG tube output. -NG tube to low intermittent suction -Continue strict intake and output -Appreciate general surgery assessment and management Acute complicated UTI Initiated on IV ceftriaxone given Proteus growing in the urine. -Plan for 5-day course of IV ceftriaxone while inpatient Other chronic medical conditions noted below, continue home regimens unless otherwise specified: Morbid obesity (BMI 60) Depressive disorder NOS HLD CKD III CODE STATUS: Full Code Documented By: Jayro Bucio MD 4 [id number] Signed By: <Electronically signed by Jayro Bucio MD> 02/09/242000 [facility] Work Phone: 1(212) 276-128804-13-2024 Consult note Author Allison Melgar [facility] February 09, 2024 12:36pm Note Date/Time February 09, 2024 10: 56am [facility] [address] [place] [address] Nephrology Consult Note Signed Patient: Guerrero Ramos MR#: [id number] : 1980 Acct:[id number] Age/Sex: 43 / F Adm Date: 4 Loc: 4N Room: [address] [place] [address] Type: ADM IN Attending Dr: Jayro Bucio MD Copies to: NON STAFF MD Jayro Person MD~ Providers Consult Date: 02/09/24 Requesting Provider: Jayro Bucio MD Primary Care Provider: NON STAFF HPI Reason for Consult: RIO on CKD management History of Present Illness: This is a 43-year female with a medical history of CKD, colon cancer status postsurgical resection, multiple ventral hernias, HLD, CKD, DM and proteinuria was presented with intractable nausea and vomiting. In the emergency room patient had a CAT scan abdomen pelvis done which showed mild bowel distention of loop ofsmall bowel concerning for partial obstruction. General surgery was consulted and recommended NG tube decompression. Patient was also found to have elevated serum creatinine 2.1 mg/dL. She was started on gentle fluid situation and renalfunction continues decline and serum creatinine went up 3.5 mg/dL. Patient has a known history of CKD and follows in our office for CKD care. She recently missed her appointment. 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 Nephrology is consulted for RIO on CKD management. Patient was seen and examined at bedside reported to have some abdominal discomfort. She did not have a bowel movement or passing flatus. She reported she voided only once. Review of Systems Review of Systems All other systems reviewed & are negative unless noted below or in HPI Review of systems: Cardiovascular: denies any chest pain, palpitation Pulmonary: denies any cough, hemoptysis Gastrointestinal: Reported to have abdominal discomfort but denies any vomiting. Neurological :denies any headache, numbness, weakness Endocrine: denies any polyuria, polydipsia Dermatological: denies any itching or rash [facility] Medical History (Updated 02/09/24 @ 12:28 by Allison Melgar MD) Pre-diabetes Hyperlipidemia Anxiety Depression Vertigo Hernia of abdominal cavity Colon cancer 2016, currently in remission Surgical History Hx of cholecystectomy Family History Father Cancer Legacy FamHx Problem: Diagnosed with Cancer Mother Hypertension Social History Smoking Status: Never smoker Substance Use Type: None Meds Medications & Allergies Allergies Penicillins Allergy (Unknown, Verified 02/08/24 10:19) Hives Home Medications alprazolam 0.5 mg tablet (Xanax) 0.5 mg PO DAILY 09/23/17 [History Confirmed 02/08/24] meclizine 25 mg tablet 25 mg PO BID 09/23/17 [History Confirmed 02/08/24] sertraline 50 mg tablet (Zoloft) 50 mg PO DAILY 09/23/17 [History Confirmed 02/08/24] rosuvastatin 20 mg tablet 20 mg PO HS 08/20/22 [History Confirmed 02/08/24] trazodone 100 mg tablet 200 mg PO BID 08/20/22 [History Confirmed 02/08/24] ergocalciferol (vitamin D2) 1,250 mcg (50,000 unit) capsule 1,250 mcg PO QWEEK 08/20/23 [History Confirmed 02/08/24] insulin glargine U-300 conc 300 unit/mL (1.5 mL) subcutaneous pen (Toujeo SoloStar U-300 Insulin) 30 unit subcut DAILY 08/20/23 [History Confirmed 02/08/24] sitagliptin phosphate 25 mg tablet (Januvia) 25 mg PO DAILY 08/20/23 [History Confirmed 02/08/24] levothyroxine 75 mcg tablet 75 mcg PO QAM 02/08/24 [History Confirmed 02/08/24] meloxicam 7.5 mg tablet 7.5 mg PO QAM 02/08/24 [History Confirmed 02/08/24] mirabegron 25 mg tablet,extended release 24 hr (Myrbetriq) 25 mg PO DAILY 02/08/24 [History Confirmed 02/08/24] pen needle, diabetic 31 gauge x 15/64 02/08/24 [History Confirmed 02/08/24] sertraline 50 mg tablet 50 mg PO DAILY 02/08/24 [History Confirmed 02/08/24] tirzepatide 2.5 mg/0.5 mL subcutaneous pen injector (Mounjaro) 2.5 mg subcut QWEEK 02/08/24 [History Confirmed 02/08/24] tolterodine 2 mg tablet 2 mg PO BID 02/08/24 [History Confirmed 02/08/24] Active Medications: Active Medications Dextrose (Dextrose 50% In Water 25 Gm/50 Ml Syringe) 0 gm IV-PUSH PRN PRN PRN Reason: Hypoglycemia Stop: 02/07/25 15:24 Glucose (Dextrose 40% Gel 15 Gm Tube) 0 gm PO PRN PRN PRN Reason: Hypoglycemia Stop: 02/07/25 15:24 Heparin Sodium (Porcine) (Heparin 5,000 Unit/Ml Vial) 5,000 unit SUBCUT Q8HR [facility] Stop: 02/07/25 21:59 Last Admin: 02/09/24 06:08 Dose: 5,000 unit Hydromorphone HCl (Hydromorphone 0.5 Mg/0.5 Ml Syringe) 0.5 mg IV-PUSH Q4H PRN PRN Reason: Pain Scale 8 - 10 Last Admin: 02/09/24 08:57 Dose: 0.5 mg Lactated Ringer's (Lactated Ringers) 1,000 mls @ 75 mls/hr IV .[id number] [facility] Stop: 02/07/25 15:29 Last Admin: 02/09/24 05:01 Dose: 75 mls/hr Magnesium Sulfate (Magnesium Sulf 2gm-*Swfi*) 2 gm in 50 mls @ 25 mls/hr IV DAILY PRN PRN Reason: Magnesium Level < 1.7 Stop: 02/07/25 15:21 Insulin Aspart (Insulin Aspart 300 Units/3 Ml Insuln.Pen) 0 units SUBCUT Q6HR [facility]; Protocol Stop: 02/07/25 17:59 Last Admin: 02/09/24 06:21 Dose: 1 units Insulin Glargine (Insulin Glargine 300 Units/3 Ml Insuln.Pen) 15 units SUBCUT DAILY [facility] Stop: 02/08/25 08:59 Last Admin: 02/09/24 09:05 Dose: 15 units Ondansetron HCl (Ondansetron 4 Mg/2 Ml Vial) 4 mg IV-PUSH Q4H PRN PRN Reason: Nausea And Vomiting Stop: 02/07/25 15:16 Potassium Chloride (Potassium Chloride Er 20 Meq Tab.Er.Prt) 40 meq PO DAILY PRN PRN Reason: Hypokalemia Stop: 02/07/25 15:21 Sodium Chloride (Sodium Chloride 0.9 % 10 Ml Syringe) 0 ml IV-PUSH PRN PRN PRN Reason: Flush Stop: 02/07/25 09:57 Last Admin: 02/08/24 18:23 Dose: 10 ml Sodium Chloride (Sodium Chloride 0.9 % 10 Ml Syringe) 0 ml IV-PUSH QSHIFT [facility] Stop: 02/07/25 21:59 Last Admin: 02/09/24 06:09 Dose: 10 ml Exam Physical Exam Vital Signs: Temp Pulse Resp BP Pulse Ox O2 Del Method O2 Flow Rate 98.2 F 78 19 132/82 98 Nasal Cannula 2 02/09/24 07:54 02/09/24 07:54 02/09/24 07:54 02/09/24 07:54 02/09/24 07:54 02/09/24 08:00 02/09/24 08:00 Narrative: General: Appears comfortable and not in distress Heart: S1-S2, no rub Lung: Bilateral air entry, no wheezing or crackles Abdomen: Distended, tender to touch Extremities: No edema, no cyanosis Head: Atraumatic, normocephalic Ear: No gross hearing Deficit or external ear redness Eyes: No pallor or redness Neck: No JVD or visible mass Skin: No rashes , warm to touch PROJECT ACCOUNTANT: Awake,Alert, following simple command Musculoskeletal: No swelling or limitation of movement of the large joints Psychiatric: Cooperative, normal mood and affect Results - Nephrology Labs 02/09/24 05:29 02/09/24 05:29 Labs: 02/08/24 02/08/24 02/09/24 10:15 10:57 05:29 BUN 26 H 32 H Creatinine 2.12 H 3.50 H D Albumin 3.8 3.6 Urine Color Yellow Urine Appearance Cloudy A Urine pH 5.5 Ur Specific [place] 1.025 Urine Protein >=1000 H Urine Glucose (UA) Normal Urine Ketones Trace H Urine Occult Blood Negative Urine Nitrite Negative Ur Leukocyte Esterase 2+ H Urine RBC 3-4 Urine WBC 20-49 H Urine Bacteria 2+ H Radiology Impressions Impressions - last 24 hours: Impressions Abdomen/Pelvis CT 02/08/24 12:09 IMPRESSION: Multiple large anterior abdominal wall hernias as described above. Mild distention of loop of small bowel in the upper mid anterior wall hernia appears may suggest partial obstruction. Remaining small bowel nondistended. The gaseous distention of the ascending and transverse colon with transition in the distal portion of the descending colon. May consider at least partial obstruction in region of distal descending colon. Impression dictated by: Vega Pedraza M.D.02/08/2024 1:33 PM Dictation Location: [place] [address] Abdomen X-Ray 02/08/24 14:38 IMPRESSION: NG tube in stomach. Impression dictated by: Vega Pedraza M.D.02/08/2024 3:20 PM Dictation Location: [place] [address] Any impression(s) listed above is documentation that was entered by the reading physician into a diagnostic report(s) for Guerrero A Ramos. I have reviewed the report(s) and am incorporating any findings in the treatment plan of this patient where applicable. A&P - Nephrology Assessment/Plan (1) Acute kidney injury superimposed on chronic kidney disease: Assessment/Problem Details: She has acute kidney injury likely due to hypovolemia in setting of bowel obstruction. She has no evidence of obstructive uropathy on CAT scan (2) CKD (chronic kidney disease) stage 3, GFR 30-59 ml/min: Assessment/Problem Details: She has a CKD due to the diabetic nephropathy and hypertensive nephrosclerosis with baseline serum creatinine 1.8 mg/dL. (3) Bowel obstruction: Assessment/Problem Details: Patient has a bowel obstruction and currently on NG decompression. General surgery has been following the patient. (4) Type 2 diabetes mellitus with diabetic chronic kidney disease: Assessment/Problem Details: She has insulin-dependent type 2 diabetes mellitus. She takes insulin glargine at home (5) Proteinuria: Assessment/Problem Details: She has a proteinuria likely due to diabetic kidney disease. Plan * No need for emergent hemodialysis now. Will continue to assess its needs on regular basis. * Will give IV fluid bolus of normal saline. * Will change IV fluid to NS and increase the rate to 125 mL/h * Continue DM management as per the primary hospitalist team. * Check renal function daily and monitor input output * Continue management of the bowel obstruction as per the general surgery. * Thanks for consult. Will continue to follow with you. Please feel free to call us with any question. Documented By: Allison Melgar MD 02/09/24 1055 Signed By: <Electronically signed by Allison Melgar MD> 02/09/[address] [facility] Work Phone: [phone]) 955-850604-13-2024 Progress note Author Dawood Clemente [facility] February 09, 2024 10:40am Note Date/Time February 09, 2024 10: 39am [facility] [address] [place] [address] General Surgery Progress Note Signed Patient: Guerrero Ramos MR#: [id number] : 1980 Acct:[id number] Age/Sex: 43 / F Adm Date: 4 Loc: Room: [address] [place] [address] Type: ADM IN Attending Dr: Jayro Bucio MD Copies to: ~ Date of Service: 02/09/2024 Subjective Subjective HPI: Patient being followed by obstruction. There is about 100 cc out of NG recorded. Patient denies flatus or bowel movement. Denies nausea or vomiting. Abdominal x-rays still show some dilated bowel loops. Allergies & Medications Medications and Allergies Allergies Penicillins Allergy (Unknown, Verified 02/08/24 10:19) Hives Home Medications alprazolam 0.5 mg tablet (Xanax) 0.5 mg PO DAILY 09/23/17 [History Confirmed 02/08/24] meclizine 25 mg tablet 25 mg PO BID 09/23/17 [History Confirmed 02/08/24] sertraline 50 mg tablet (Zoloft) 50 mg PO DAILY 09/23/17 [History Confirmed 02/08/24] rosuvastatin 20 mg tablet 20 mg PO HS 08/20/22 [History Confirmed 02/08/24] trazodone 100 mg tablet 200 mg PO BID 08/20/22 [History Confirmed 02/08/24] ergocalciferol (vitamin D2) 1,250 mcg (50,000 unit) capsule 1,250 mcg PO QWEEK 08/20/23 [History Confirmed 02/08/24] insulin glargine U-300 conc 300 unit/mL (1.5 mL) subcutaneous pen (Toujeo SoloStar U-300 Insulin) 30 unit subcut DAILY 08/20/23 [History Confirmed 02/08/24] sitagliptin phosphate 25 mg tablet (Januvia) 25 mg PO DAILY 08/20/23 [History Confirmed 02/08/24] levothyroxine 75 mcg tablet 75 mcg PO QAM 02/08/24 [History Confirmed 02/08/24] meloxicam 7.5 mg tablet 7.5 mg PO QAM 02/08/24 [History Confirmed 02/08/24] mirabegron 25 mg tablet,extended release 24 hr (Myrbetriq) 25 mg PO DAILY 02/08/24 [History Confirmed 02/08/24] pen needle, diabetic 31 gauge x 15/64 02/08/24 [History Confirmed 02/08/24] sertraline 50 mg tablet 50 mg PO DAILY 02/08/24 [History Confirmed 02/08/24] tirzepatide 2.5 mg/0.5 mL subcutaneous pen injector (Palomounmarilinro) 2.5 mg subcut QWEEK 02/08/24 [History Confirmed 02/08/24] tolterodine 2 mg tablet 2 mg PO BID 02/08/24 [History Confirmed 02/08/24] Active Medications Bisacodyl (Bisacodyl 10 Mg Supp.Rect) 10 mg CA ONCE ONE Stop: 02/09/24 10:37 Dextrose (Dextrose 50% In Water 25 Gm/50 Ml Syringe) 0 gm IV-PUSH PRN PRN PRN Reason: Hypoglycemia Stop: 02/07/25 15:24 Glucose (Dextrose 40% Gel 15 Gm Tube) 0 gm PO PRN PRN PRN Reason: Hypoglycemia Stop: 02/07/25 15:24 Heparin Sodium (Porcine) (Heparin 5,000 Unit/Ml Vial) 5,000 unit SUBCUT Q8HR [facility] Stop: 02/07/25 21:59 Last Admin: 02/09/24 06:08 Dose: 5,000 unit Hydromorphone HCl (Hydromorphone 0.5 Mg/0.5 Ml Syringe) 0.5 mg IV-PUSH Q4H PRN PRN Reason: Pain Scale 8 - 10 Last Admin: 02/09/24 08:57 Dose: 0.5 mg Lactated Ringer's (Lactated Ringers) 1,000 mls @ 75 mls/hr IV .[id number] [facility] Stop: 02/07/25 15:29 Last Admin: 02/09/24 05:01 Dose: 75 mls/hr Magnesium Sulfate (Magnesium Sulf 2gm-*Swfi*) 2 gm in 50 mls @ 25 mls/hr IV DAILY PRN PRN Reason: Magnesium Level < 1.7 Stop: 02/07/25 15:21 Insulin Aspart (Insulin Aspart 300 Units/3 Ml Insuln.Pen) 0 units SUBCUT Q6HR [facility]; Protocol Stop: 02/07/25 17:59 Last Admin: 02/09/24 06:21 Dose: 1 units Insulin Glargine (Insulin Glargine 300 Units/3 Ml Insuln.Pen) 15 units SUBCUT DAILY [facility] Stop: 02/08/25 08:59 Last Admin: 02/09/24 09:05 Dose: 15 units Ondansetron HCl (Ondansetron 4 Mg/2 Ml Vial) 4 mg IV-PUSH Q4H PRN PRN Reason: Nausea And Vomiting Stop: 02/07/25 15:16 Potassium Chloride (Potassium Chloride Er 20 Meq Tab.Er.Prt) 40 meq PO DAILY PRN PRN Reason: Hypokalemia Stop: 02/07/25 15:21 Sodium Chloride (Sodium Chloride 0.9 % 10 Ml Syringe) 0 ml IV-PUSH PRN PRN PRN Reason: Flush Stop: 02/07/25 09:57 Last Admin: 02/08/24 18:23 Dose: 10 ml Sodium Chloride (Sodium Chloride 0.9 % 10 Ml Syringe) 0 ml IV-PUSH QSHIFT [facility] Stop: 02/07/25 21:59 Last Admin: 02/09/24 06:09 Dose: 10 ml Exam Physical Exam Vital Signs: Temp Pulse Resp BP Pulse Ox O2 Del Method O2 Flow Rate 98.2 F 78 19 132/82 98 Nasal Cannula 2 02/09/24 07:54 02/09/24 07:54 02/09/24 07:54 02/09/24 07:54 02/09/24 07:54 02/09/24 08:00 02/09/24 08:00 Const General: cooperative and no acute distress GI Inspection: obesity Palpation: soft, no guarding and tender (Upper midline over hernia) in the RUQ Neuro General: patient alert and patient awake Objective Pain Assessment Abdomen: Pain Intensity: 2 Intake & Output 24 hour I&O: Intake & Output 02/08/24 02/09/24 02/09/24 23:59 07:59 15:59 Intake Total 1150 / 1150 Output Total 50 / 50 300 / 300 Balance -50 / -50 850 / 850 Weight 156 kg Labs 02/09/24 05:29 02/09/24 05:29 Laboratory Results - Last 48 hrs. 02/09/24 05:29: Corrected WBC 6.8, Uncorrected WBC Count 6.8, RBC 4.91, Hgb 12.7, Hct 39.0, MCV 79.4 L, MCH 25.9, MCHC 32.6, RDW 14.7, Plt Count 231, MPV 7.5, Neut % (Auto) 62.6, Lymph % (Auto) 22.9, [place] % (Auto) 8.7, Eos % (Auto) 5.3, Baso % (Auto) 0.5, Nucleat RBC Rel Count 0.3, Neut # (Auto) 4.2, Lymph # (Auto) 1.6, [place] # (Auto) 0.6, Eos # (Auto) 0.4, Baso # (Auto) 0.0, PT 12.0, INR1.0, APTT 31.5, PHA Creatinine Clear 30.39, Sodium 139, Potassium 3.9, Chloride 100, Carbon Dioxide 31.6 H, Anion Gap 11.3, BUN 32 H, Creatinine 3.50 H D, Est GFR (CKD-EPI) 15.844, Glucose 154 H, Estimat Average Glucose 214, Hemoglobin A1c9.1 H, Calcium 9.1, Total Bilirubin 0.6, AST 35, ALT 36, Alkaline Phosphatase 70, Total Protein 6.4, Albumin 3.6, Globulin 2.8, Albumin/Globulin Ratio 1.3 02/09/24 05:28: POC Glucose 164 02/09/24 00:39: POC Glucose 165 02/08/24 17:39: POC Glucose 129 02/08/24 12:05: POC Creatinine 2.3 H, POC Estimated GFR (eGFR) 26.222 02/08/24 10:57: Urine Color Yellow, Urine Appearance Cloudy A, Urine pH 5.5, Ur Specific [place] 1.025, Urine Protein >=1000 H, Urine Glucose (UA) Normal, UrineKetones Trace H, Urine Occult Blood Negative, Urine Nitrite Negative, Urine Bilirubin Negative, Urine Urobilinogen Normal, Ur Leukocyte Esterase 2+ H, UrineRBC 3-4, Urine WBC 20-49 H, Ur Squamous Epith Cells 10-19 H, Urine Bacteria 2+ H, Hyaline Casts None seen, Other Casts None seen, Urine HCG, Qual Negative 02/08/24 10:55: SARS-CoV-2 Rap RNA(RT-PCR) Negative 02/08/24 10:15: Corrected WBC 7.1, Uncorrected WBC Count 7.1, RBC 5.18 H, Hgb 13.5, Hct 40.5, MCV 78.2 L, MCH 26.1, MCHC 33.4, RDW 14.5, Plt Count 259, MPV 7.5, Neut % (Auto) 68.3, Lymph % (Auto) 21.6, [place] % (Auto) 5.1, Eos % (Auto) 4.1, Baso % (Auto) 0.9, Nucleat RBC Rel Count 0.3, Neut # (Auto) 4.8, Lymph # (Auto) 1.5, [place] # (Auto) 0.4, Eos # (Auto) 0.3, Baso # (Auto) 0.1, Monocyte Dist Width 17.42, PT 11.4, INR 1.0, PHA Creatinine Clear 49.79, Sodium 138, Potassium 4.0, Chloride 101, Carbon Dioxide 29.9, Anion Gap 11.1, BUN 26 H, Creatinine 2.12 H, Est GFR (CKD-EPI) 28.916, Glucose 164 H, Calcium 9.6, Total Bilirubin 0.5, Direct Bilirubin 0.10, Indirect Bilirubin 0.4, AST 47 H, ALT 40, Alkaline Phosphatase 65, Total Protein 7.3, Albumin 3.8, Globulin 3.5, Albumin/Globulin Ratio 1.1, Lipase 8.0 L Microbiology Microbiology 02/08/24 10:55 Nasopharyngeal SARS-CoV-2, Influenza & RSV (PCR) - Final A&P - General Surgery Assessment/Plan (1) Bowel obstruction: Qualifiers: Intestinal obstruction type: unspecified Intestinal obstruction extent:partial Qualified Code(s): K56.600 - Partial intestinal obstruction, unspecified as to cause (2) History of colon cancer: (3) BMI 60.0-69.9, adult: Plan Continue nasogastric decompression. Follow abdominal exam, NG output. Will recheck abdominal x-rays again tomorrow. Increase activity. OT/PT. At some point, patient may require repair of her ventral hernias. Because of the multiple hernias and her size, this is probably best done at a [facility]. Documented By: Dawood Clemente MD 02/09/24 1038 Signed By: <Electronically signed by MD Dawood Clemente> 02/09/24 1040 [facility] Work Phone: 1(647) 478-455604-13-2024 History and physical note Author Jayro Bucio [facility] February 08, 2024 11:58pm Note Date/Time February 08, 2024 3:1 7pm [facility] [address] [place] [address] Hospitalist H&P Signed Patient: Guerrero Ramos MR#: [id number] : 1980 Acct:[id number] Age/Sex: 43 / F Adm Date: 4 Loc: 4N Room: [address] [place] [address] Type: ADM IN Attending Dr: Jayro Bucio MD Copies to: NON STAFF Jayro Bucio MD~ HPI DATE OF EXAMINATION: 02/08/24 CHIEF COMPLAINT: Intractable nausea and vomiting HISTORY OF PRESENT ILLNESS: Ms. Ramos is a 43yo F with PMH of morbid obesity (BMI 60), depressive disorder NOS colon cancer status post resection, multiple ventral hernias, HLD, CKDIII who presents to the emergency department with complaints of intractable nausea and vomiting over the last 3 days. Patient notes that she has a history of colonic resection for colon cancer approximately 8 years ago. Patient has been dealing with ventral hernias over the past few years. She was to have some of these hernias repaired at some point, but this did not occur, because she was unable to lose weight. Patient had right-sided upper abdominal pain associated with nausea and vomiting. She reports inability to take p.o. for 2 days. She she did have a liquid bowel movement in the emergency department earlier today but otherwise has not had a formed bowel movement in 1 week. In the emergency department, CBC does not demonstrate any acute changes suggestive of acute infection. UA is negative. Lipase is within normal limits. Viral panel is negative. Chemistry only notes mildly elevated creatinine abovebaseline at 2.1. CT imaging of the abdomen/pelvis notes the multiple abdominalwall hernias and there is mild distention of a loop of small bowel in the mid upper anterior wall hernia that suggests partial obstruction. Review of Systems Review of Systems Review of systems: 10 point ROS reviewed and is negative except for that which is noted above in HPI [facility] Medical History Anxiety Colon cancer 2016, currently in remission Depression Hernia of abdominal cavity Hyperlipidemia Pre-diabetes Vertigo Surgical History Hx of cholecystectomy Family History Father Cancer Legacy FamHx Problem: Diagnosed with Cancer Mother Hypertension Social History Smoking Status: Never smoker Substance Use Type: None Meds Medications and Allergies Allergies Penicillins Allergy (Unknown, Verified 02/08/24 10:19) Hives Home Medications alprazolam 0.5 mg tablet (Xanax) 0.5 mg PO DAILY 09/23/17 [History Confirmed 02/08/24] meclizine 25 mg tablet 25 mg PO BID 09/23/17 [History Confirmed 02/08/24] sertraline 50 mg tablet (Zoloft) 50 mg PO DAILY 09/23/17 [History Confirmed 02/08/24] rosuvastatin 20 mg tablet 20 mg PO HS 08/20/22 [History Confirmed 02/08/24] trazodone 100 mg tablet 200 mg PO BID 08/20/22 [History Confirmed 02/08/24] ergocalciferol (vitamin D2) 1,250 mcg (50,000 unit) capsule 1,250 mcg PO QWEEK 08/20/23 [History Confirmed 02/08/24] insulin glargine U-300 conc 300 unit/mL (1.5 mL) subcutaneous pen (Toujeo SoloStar U-300 Insulin) 30 unit subcut DAILY 08/20/23 [History Confirmed 02/08/24] sitagliptin phosphate 25 mg tablet (Januvia) 25 mg PO DAILY 08/20/23 [History Confirmed 02/08/24] levothyroxine 75 mcg tablet 75 mcg PO QAM 02/08/24 [History Confirmed 02/08/24] meloxicam 7.5 mg tablet 7.5 mg PO QAM 02/08/24 [History Confirmed 02/08/24] mirabegron 25 mg tablet,extended release 24 hr (Myrbetriq) 25 mg PO DAILY 02/08/24 [History Confirmed 02/08/24] pen needle, diabetic 31 gauge x 15/64 02/08/24 [History Confirmed 02/08/24] sertraline 50 mg tablet 50 mg PO DAILY 02/08/24 [History Confirmed 02/08/24] tirzepatide 2.5 mg/0.5 mL subcutaneous pen injector (Palomounmarilinro) 2.5 mg subcut QWEEK 02/08/24 [History Confirmed 02/08/24] tolterodine 2 mg tablet 2 mg PO BID 02/08/24 [History Confirmed 02/08/24] Exam Physical Exam Vital Signs: Temp Pulse Resp BP Pulse Ox O2 Del Method O2 Flow Rate 97.9 F 90 20 166/102 H 97 Nasal Cannula 2 02/08/24 10:05 02/08/24 14:27 02/08/24 12:17 02/08/24 14:27 02/08/24 14:27 02/08/24 14:27 02/08/24 14:27 Narrative: GEN: Alert, Oriented, No distress, elevated BMI HEAD: NC/AT, EOMI, Pupils equal and reactive NECK: Supple, non-tender, no meningismus CARDIO: RRR RESP: Clear bilaterally, no distress ABD: Right mid abdominal and upper abdominal pain with palpation, there is a palpable ventral hernia that is large no obvious signs of incarceration or strangulation, there is no skin discoloration over the abdomen BACK: No midline tenderness, no paraspinal tenderness EXT: Atraumatic, full ROM x4 extremities, palpable/symmetric DP/RP B/L Skin: No rash, intact NEURO: No focal neurologic deficits Results - Hospitalist H&P Lab Results Labs: Laboratory Last Values Corrected WBC 7.1 X10E3/uL (3.8-11.6) 02/08/24 10:15 Uncorrected WBC Count 7.1 x10E3/uL (3.8-11.6) 02/08/24 10:15 RBC 5.18 X10E6/uL (3.60-5.00) H 02/08/24 10:15 Hgb 13.5 g/dL (11.8-15.4) 02/08/24 10:15 Hct 40.5 % (34.0-46.4) 02/08/24 10:15 MCV 78.2 fl (80-100) L 02/08/24 10:15 MCH 26.1 pg (24.7-34.3) 02/08/24 10:15 MCHC 33.4 g/dL (32.0-35.0) 02/08/24 10:15 RDW 14.5 % (11.9-15.3) 02/08/24 10:15 Plt Count 259 x10E3/uL (150-450) 02/08/24 10:15 MPV 7.5 fl (6.3-10.7) 02/08/24 10:15 Neut % (Auto) 68.3 % (.) 02/08/24 10:15 Lymph % (Auto) 21.6 % (.) 02/08/24 10:15 [place] % (Auto) 5.1 % (.) 02/08/24 10:15 Eos % (Auto) 4.1 % (.) 02/08/24 10:15 Baso % (Auto) 0.9 % (.) 02/08/24 10:15 Nucleat RBC Rel Count 0.3 /100 WBC (0-0.5) 02/08/24 10:15 Neut # (Auto) 4.8 x10E3/uL (1.8-7.7) 02/08/24 10:15 Lymph # (Auto) 1.5 x10E3/uL (1.00-4.8) 02/08/24 10:15 [place] # (Auto) 0.4 x10E3/uL (0.0-0.8) 02/08/24 10:15 Eos # (Auto) 0.3 x10E3/uL (0.0-0.45) 02/08/24 10:15 Baso # (Auto) 0.1 x10E3/uL (0.0-0.2) 02/08/24 10:15 Monocyte Dist Width 17.42 % (0.00-20.00) 02/08/24 10:15 PT 11.4 Seconds (9.0-12.9) 02/08/24 10:15 INR 1.0 02/08/24 10:15 PHA Creatinine Clear 49.79 02/08/24 10:15 Sodium 138 mmol/L (136-145) 02/08/24 10:15 Potassium 4.0 mmol/L (3.5-5.1) 02/08/24 10:15 Chloride 101 mmol/L (98-107) 02/08/24 10:15 Carbon Dioxide 29.9 mmol/L (21.0-31.0) 02/08/24 10:15 Anion Gap 11.1 mEq/L (6.0-15.0) 02/08/24 10:15 BUN 26 mg/dL (7-25) H 02/08/24 10:15 Creatinine 2.12 mg/dL (0.60-1.20) H 02/08/24 10:15 POC Creatinine 2.3 mg/dl (0.6-1.3) H 02/08/24 12:05 POC Estimated GFR (eGFR) 26.222 02/08/24 12:05 Est GFR (CKD-EPI) 28.916 mL/Min 02/08/24 10:15 Glucose 164 mg/dL (70-100) H 02/08/24 10:15 Calcium 9.6 mg/dL (8.6-10.3) 02/08/24 10:15 Total Bilirubin 0.5 mg/dl (0.3-1.0) 02/08/24 10:15 Direct Bilirubin 0.10 mg/dL (0.03-0.18) 02/08/24 10:15 Indirect Bilirubin 0.4 mg/dL 02/08/24 10:15 AST 47 U/L (13-39) H 02/08/24 10:15 ALT 40 U/L (7-52) 02/08/24 10:15 Alkaline Phosphatase 65 U/L (34-104) 02/08/24 10:15 Total Protein 7.3 gm/dL (6.4-8.9) 02/08/24 10:15 Albumin 3.8 gm/dL (3.5-5.7) 02/08/24 10:15 Globulin 3.5 gm/dL 02/08/24 10:15 Albumin/Globulin Ratio 1.1 02/08/24 10:15 Lipase 8.0 U/L (11.0-82.0) L 02/08/24 10:15 Urine Color Yellow (Yellow) 02/08/24 10:57 Urine Appearance Cloudy (Clear) A 02/08/24 10:57 Urine pH 5.5 (5.0-9.0) 02/08/24 10:57 Ur Specific [place] 1.025 (1.001-1.030) 02/08/24 10:57 Urine Protein >=1000 mg/dL (Negative) H 02/08/24 10:57 Urine Glucose (UA) Normal mg/dL (Normal) 02/08/24 10:57 Urine Ketones Trace (Negative) H 02/08/24 10:57 Urine Occult Blood Negative (Negative) 02/08/24 10:57 Urine Nitrite Negative (Negative) 02/08/24 10:57 Urine Bilirubin Negative (Negative) 02/08/24 10:57 Urine Urobilinogen Normal mg/dL (Normal) 02/08/24 10:57 Ur Leukocyte Esterase 2+ (Negative) H 02/08/24 10:57 Urine RBC 3-4 /HPF (0-4) 02/08/24 10:57 Urine WBC 20-49 /HPF (0-4) H 02/08/24 10:57 Ur Squamous Epith Cells 10-19 /HPF (0-2) H 02/08/24 10:57 Urine Bacteria 2+ (None Seen) H 02/08/24 10:57 Hyaline Casts None seen /LPF (0-1) 02/08/24 10:57 Other Casts None seen /LPF (None Seen) 02/08/24 10:57 Urine HCG, Qual Negative 02/08/24 10:57 SARS-CoV-2 Rap RNA(RT-PCR) Negative (Negative) 02/08/24 10:55 Microbiology Results Micro: Microbiology - Results from entire visit 02/08/24 10:55 Nasopharyngeal SARS-CoV-2, Influenza & RSV (PCR) - Final Assessment & Plan Assessment/Plan (1) Partial small bowel obstruction: Plan Partial Small Bowel Obstruction Multiple ventral hernias History of colon cancer s/p resection NG tube in place -NG tube to low intermittent suction -General surgery to assist in management Other chronic medical conditions noted below, continue home regimens unless otherwise specified: Morbid obesity (BMI 60) Depressive disorder NOS HLD CKD III CODE STATUS: Full Code IP vs OBS Justification Based on differential dx, clinical care plan, and risk of adverse events, if untreated, in my clinical judgement this patient requires an acute care setting as: INPATIENT because of an expectation of an over 2 midnight stay. Estimated length of stay (# of days): 4 Documented By: Jayro Bucio MD [id number] Signed By: <Electronically signed by Jayro Bucio MD> 02/08/[address] [facility] Work Phone: [phone]) 216-503004-12-2024 Consult note Author Dawood Clemente [facility] February 08, 2024 5:31pm Note Date/Time February 08, 2024 5:2 8pm [facility] [address] [place] [address] General Surgery Consult Note Signed Patient: Guerrero Ramos MR#: [id number] : 1980 Acct:[id number] Age/Sex: 43 / F Adm Date: 4 Loc: 4N Room: 5B4530-2 Type: ADM IN Attending Dr: Jayro Bucio MD Copies to: NON STAFF MD Jayro Gilmore MD~ History of Present Illness Date of consult: 02/08/2024 Requesting/Attending Provider: Jayro Bucio MD History of present illness: The patient is a 43-year-old female who for the past several days has had right- sided abdominal pain associated with vomiting. Patient has known ventral hernias and also was having some pain at one of her hernia sites. Patient presented to the emergency room. CT scan showed upper midline abdominalhernia as well as a left lower quadrant abdominal hernia. There are some small bowel loops within the hernia sac but no definite evidence of obstruction. Patient has been having some loose bowel movements. Patient had colon surgery for colon cancer about 8 years ago. She states she had a colonoscopy about a year ago which was normal. By 5 years ago, patient developed a ventral hernias. She states she has seen surgeons in the past for these but then wanted to perform surgery on them, presumably until she lost someweight. Patient's BMI is about 60. Other medical problems include diabetes mellitus. Patient states her last hemoglobin A1c was around 8.5. Patient also has chronic renal insufficiency. Review of Systems Constitutional Constitutional: Denies fever(s) Cardiovascular Cardiovascular: Denies chest pain Respiratory Respiratory: Denies dyspnea Gastrointestinal Gastrointestinal: Reports abdominal pain and Reports vomiting Neurologic Neurologic: Denies syncope [facility] Medical History Anxiety Colon cancer 2016, currently in remission Depression Hernia of abdominal cavity Hyperlipidemia Pre-diabetes Vertigo Surgical History Hx of cholecystectomy Family History Father Cancer Legacy FamHx Problem: Diagnosed with Cancer Mother Hypertension Social History Smoking Status: Never smoker Substance Use Type: None Allergies & Medications Medications and Allergies Allergies Penicillins Allergy (Unknown, Verified 02/08/24 10:19) Hives Home Medications alprazolam 0.5 mg tablet (Xanax) 0.5 mg PO DAILY 09/23/17 [History Confirmed 02/08/24] meclizine 25 mg tablet 25 mg PO BID 09/23/17 [History Confirmed 02/08/24] sertraline 50 mg tablet (Zoloft) 50 mg PO DAILY 09/23/17 [History Confirmed 02/08/24] rosuvastatin 20 mg tablet 20 mg PO HS 08/20/22 [History Confirmed 02/08/24] trazodone 100 mg tablet 200 mg PO BID 08/20/22 [History Confirmed 02/08/24] ergocalciferol (vitamin D2) 1,250 mcg (50,000 unit) capsule 1,250 mcg PO QWEEK 08/20/23 [History Confirmed 02/08/24] insulin glargine U-300 conc 300 unit/mL (1.5 mL) subcutaneous pen (Toujeo SoloStar U-300 Insulin) 30 unit subcut DAILY 08/20/23 [History Confirmed 02/08/24] sitagliptin phosphate 25 mg tablet (Januvia) 25 mg PO DAILY 08/20/23 [History Confirmed 02/08/24] levothyroxine 75 mcg tablet 75 mcg PO QAM 02/08/24 [History Confirmed 02/08/24] meloxicam 7.5 mg tablet 7.5 mg PO QAM 02/08/24 [History Confirmed 02/08/24] mirabegron 25 mg tablet,extended release 24 hr (Myrbetriq) 25 mg PO DAILY 02/08/24 [History Confirmed 02/08/24] pen needle, diabetic 31 gauge x 15/64 02/08/24 [History Confirmed 02/08/24] sertraline 50 mg tablet 50 mg PO DAILY 02/08/24 [History Confirmed 02/08/24] tirzepatide 2.5 mg/0.5 mL subcutaneous pen injector (Greg) 2.5 mg subcut QWEEK 02/08/24 [History Confirmed 02/08/24] tolterodine 2 mg tablet 2 mg PO BID 02/08/24 [History Confirmed 02/08/24] Active Medications Dextrose (Dextrose 50% In Water 25 Gm/50 Ml Syringe) 0 gm IV-PUSH PRN PRN PRN Reason: Hypoglycemia Stop: 02/07/25 15:24 Glucose (Dextrose 40% Gel 15 Gm Tube) 0 gm PO PRN PRN PRN Reason: Hypoglycemia Stop: 02/07/25 15:24 Heparin Sodium (Porcine) (Heparin 5,000 Unit/Ml Vial) 5,000 unit SUBCUT Q8HR FANTASMA Stop: 02/07/25 21:59 Hydromorphone HCl (Hydromorphone 0.5 Mg/0.5 Ml Syringe) 0.5 mg IV-PUSH Q4H PRN PRN Reason: Pain Scale 8 - 10 Lactated Ringer's (Lactated Ringers) 1,000 mls @ 75 mls/hr IV .[id number] [facility] Stop: 02/07/25 15:29 Last Admin: 02/08/24 16:50 Dose: 75 mls/hr Magnesium Sulfate (Magnesium Sulf 2gm-*Swfi*) 2 gm in 50 mls @ 25 mls/hr IV DAILY PRN PRN Reason: Magnesium Level < 1.7 Stop: 02/07/25 15:21 Insulin Aspart (Insulin Aspart 300 Units/3 Ml Insuln.Pen) 0 units SUBCUT Q6HR [facility]; Protocol Stop: 02/07/25 17:59 Insulin Glargine (Insulin Glargine 300 Units/3 Ml Insuln.Pen) 15 units SUBCUT DAILY [facility] Stop: 02/08/25 08:59 Ondansetron HCl (Ondansetron 4 Mg/2 Ml Vial) 4 mg IV-PUSH Q4H PRN PRN Reason: Nausea And Vomiting Stop: 02/07/25 15:16 Potassium Chloride (Potassium Chloride Er 20 Meq Tab.Er.Prt) 40 meq PO DAILY PRN PRN Reason: Hypokalemia Stop: 02/07/25 15:21 Sodium Chloride (Sodium Chloride 0.9 % 10 Ml Syringe) 0 ml IV-PUSH PRN PRN PRN Reason: Flush Stop: 02/07/25 09:57 Last Admin: 02/08/24 10:52 Dose: 10 ml Sodium Chloride (Sodium Chloride 0.9 % 10 Ml Syringe) 0 ml IV-PUSH QSHIFT [facility] Stop: 02/07/25 21:59 Exam Physical Exam Vital Signs: Temp Pulse Resp BP Pulse Ox O2 Del Method O2 Flow Rate 97.9 F 88 20 180/98 H 92 L Room Air 2 02/08/24 10:05 02/08/24 16:04 02/08/24 16:04 02/08/24 16:04 02/08/24 16:04 02/08/24 17:10 02/08/24 14:27 Const General: cooperative and no acute distress HEENT Head: atraumatic Eyes Sclera: sclerae normal (Anicteric) Resp Auscultation: clear to auscultation bilaterally Cardio Rate: regular rate Rhythm: regular rhythm GI Inspection: obesity Palpation: soft, no guarding and tender (Upper midline over hernia) in the RUQ Skin Other: Warm, dry Neuro General: patient alert and patient awake Results - Gen. Surgery Intake and Output 24 hour I&O: Intake & Output 02/08/24 02/08/24 02/08/24 07:59 15:59 23:59 Output Total 50 / 50 Balance -50 / -50 Weight 154.221 kg Labs 02/08/24 10:15 02/08/24 10:15 Laboratory Results - last 72 hr 02/08/24 12:05: POC Creatinine 2.3 H, POC Estimated GFR (eGFR) 26.222 02/08/24 10:57: Urine Color Yellow, Urine Appearance Cloudy A, Urine pH 5.5, Ur Specific [place] 1.025, Urine Protein >=1000 H, Urine Glucose (UA) Normal, UrineKetones Trace H, Urine Occult Blood Negative, Urine Nitrite Negative, Urine Bilirubin Negative, Urine Urobilinogen Normal, Ur Leukocyte Esterase 2+ H, UrineRBC 3-4, Urine WBC 20-49 H, Ur Squamous Epith Cells 10-19 H, Urine Bacteria 2+ H, Hyaline Casts None seen, Other Casts None seen, Urine HCG, Qual Negative 02/08/24 10:55: SARS-CoV-2 Rap RNA(RT-PCR) Negative 02/08/24 10:15: Corrected WBC 7.1, Uncorrected WBC Count 7.1, RBC 5.18 H, Hgb 13.5, Hct 40.5, MCV 78.2 L, MCH 26.1, MCHC 33.4, RDW 14.5, Plt Count 259, MPV 7.5, Neut % (Auto) 68.3, Lymph % (Auto) 21.6, [place] % (Auto) 5.1, Eos % (Auto) 4.1, Baso % (Auto) 0.9, Nucleat RBC Rel Count 0.3, Neut # (Auto) 4.8, Lymph # (Auto) 1.5, [place] # (Auto) 0.4, Eos # (Auto) 0.3, Baso # (Auto) 0.1, Monocyte Dist Width 17.42, PT 11.4, INR 1.0, PHA Creatinine Clear 49.79, Sodium 138, Potassium 4.0, Chloride 101, Carbon Dioxide 29.9, Anion Gap 11.1, BUN 26 H, Creatinine 2.12 H, Est GFR (CKD-EPI) 28.916, Glucose 164 H, Calcium 9.6, Total Bilirubin 0.5, Direct Bilirubin 0.10, Indirect Bilirubin 0.4, AST 47 H, ALT 40, Alkaline Phosphatase 65, Total Protein 7.3, Albumin 3.8, Globulin 3.5, Albumin/Globulin Ratio 1.1, Lipase 8.0 L Microbiology Microbiology - Results from entire visit 02/08/24 10:55 Nasopharyngeal SARS-CoV-2, Influenza & RSV (PCR) - Final A&P - General Surgery (1) Bowel obstruction: Qualifiers: Intestinal obstruction type: unspecified Intestinal obstruction extent:partial Qualified Code(s): K56.600 - Partial intestinal obstruction, unspecified as to cause (2) History of colon cancer: (3) BMI 60.0-69.9, adult: Plan Patient currently does not have an acute surgical abdomen. Continue nasogastric decompression. Follow abdominal exam, NG output. Will recheck abdominal x-rays tomorrow. At some point, patient may require repair of her ventral hernias. Because of the multiple hernias and her size, this is probably best done at a [facility]. Documented By: Dawood Clemente MD 02/08/24 1722 Signed By: <Electronically signed by MD Dawood Clemente> 02/08/24 1731 [facility] Work Phone: 1(661) 683-263402-28-2024 Evaluation + Plan noteExtracted from: Title:ED Note Author:Neel GUZMAN, Manuel Date: 1. Right upper quadrant abdo jori pain (R10.11: Right upper quadrant pain) 2. Nausea in adult (R11.0: Nausea) Orders: dicyclomine, 20 mg = 2 mL, Injection, IntraMuscular, Once, Stop date 12/25/23 23:54:00 EST, STAT, Start date 12/25/23 23:54:00 EST, 12/25/23 23:54:00 EST dicyclomine, 20 mg = 1 tab(s), Oral, QID, # 12 tab(s), Refills(s) 0, Pharmacy: [id number], 164, cm, 12/25/23 22:51:00 EST, Height/Length Dosing, 158.7, kg, 12/25/23 22:51:00 EST, Weight Dosing famotidine, 20 mg = 2 mL, Soln-IV, IV Push, Once, Stop date 12/25/23 23:54:00 EST, STAT, Start date 12/25/23 23:54:00 EST, 12/25/23 23:54:00 EST famotidine, 20 mg = 1 tab(s), Oral, BID, # 15 tab(s), Refills(s) 0, Pharmacy: [facility], 164, cm, 12/25/23 22:51:00 EST, Height/Length Dosing, 158.7, kg, 12/25/23 22:51:00 EST, Weight Dosing ondansetron, 4 mg = 1 tab(s), Oral, q8hr, # 10 tab(s), Refills(s) 0, Pharmacy: [facility], 164, cm, 12/25/23 22:51:00 EST, Height/Length Dosing, 158.7, kg, 12/25/23 22:51:00 EST, Weight Dosing ondansetron, 4 mg = 2 mL, Injection, IV Push, Once, Stop date 12/25/23 23:46:00 EST, STAT, Start date 12/25/23 23:46:00 EST, 12/25/23 23:46:00 EST promethazine, 25 mg = 1 tab(s), Oral, q4hr, PRN for nausea/vomiting, # 10 tab(s), Refills(s) 0, Pharmacy: [facility], 164, cm, 12/25/23 22:51:00 EST, Height/Length Dosing, 158.7, kg, 12/25/23 22:51:00 EST, Weight Dosing promethazine, 25 mg = 1 tab(s), Tab, Oral, q4hr PRN Nausea, STAT, Start date 12/26/23 1:40:00 EST, 12/26/23 1:40:00 EST Sodium Chloride 0.9% intravenous solution, 1,000 mL, Soln-IV, IV, Once, Stop date 12/25/23 23:54:00 EST, STAT, Start date 12/25/23 23:54:00 EST, Infuse over 61, minute(s) Amylase Level Basic Metabolic Panel Beta-hydroxybutyrate CBC w/ Auto Diff eGFR Hepatic Function Panel Lipase Level UA With Cult Reflex [facility]02-28-2024 Hospital Discharge instructions Patient Education 12/26/2023 01:55:43 Nausea, Adult Nausea, Adult Nausea is the feeling of having an upset stomach or that you are about to vomit. Nausea on its own is not usually a serious concern, but it may be an early sign of a more serious medical problem. As nausea gets worse, it can lead to vomiting. If vomiting develops, or if you are not able to drink enough fluids, you are at risk of becoming dehydrated. Dehydration can make you tired and thirsty, cause you to have a dry mouth, and decrease how often you urinate. Older adults and people with other diseases or a weak disease-fighting system (immune system) are at higher risk for dehydration. The main goals of treating your nausea are: To relieve your nausea. To limit repeated nausea episodes. To prevent vomiting and dehydration. Follow these instructions at home: Watch your symptoms for any changes. Tell your health care provider about them. Eating and drinking Take an oral rehydration solution (ORS). This is a drink that is sold at pharmacies and retail stores. Drink clear fluids slowly and in small amounts as you are able. Clear fluids include water, ice chips, low-calorie sports drinks, and fruit juice that has water added (diluted fruit juice). Eat bland, uhcm-um-vvawoo foods in small amounts as you are able. These foods include bananas, applesauce, rice, lean meats, toast, and crackers. Avoid drinking fluids that contain a lot of sugar or caffeine, such as energy drinks, sports drinks, and soda. Avoid alcohol. Avoid spicy or fatty foods. General instructions Take mxfr-viw-nvqkagm and prescription medicines only as told by your health care provider. Rest at home while you recover. Drink enough fluid to keep your urine pale yellow. Breathe slowly and deeply when you feel nauseous. Avoid smelling things that have strong odors. Wash your hands often using soap and water for at least 20 seconds. If soap and water are not available, use hand nurse infection control. Make sure that everyone in your household washes their hands well and often. Keep all follow-up visits. This is important. Contact a health care provider if: Your nausea gets worse. Your nausea does not go away after two days. You vomit multiple times. You cannot drink fluids without vomiting. You have any of the following: ?New symptoms. ?A fever. ?A headache. ?Muscle cramps. ?A rash. ?Pain while urinating. You feel light-headed or dizzy. Get help right away if: You have pain in your chest, neck, arm, or jaw. You feel extremely weak or you faint. You have vomit that is bright red or looks like coffee grounds. You have bloody or black stools (feces) or stools that look like tar. You have a severe headache, a stiff neck, or both. You have severe pain, cramping, or bloating in your abdomen. You have difficulty breathing or are breathing very quickly. Your heart is beating very quickly. Your skin feels cold and clammy. You feel confused. You have signs of dehydration, such as: ?Dark urine, very little urine, or no urine. ?Cracked lips. ?Dry mouth. ?Sunken eyes. ?Sleepiness. ?Weakness. These symptoms may be an emergency. Get help right away. Call 911. Do not wait to see if the symptoms will go away. Do not drive yourself to the hospital. Summary Nausea is the feeling that you have an upset stomach or that you are about to vomit. Nausea on its own is not usually a serious concern, but it may be an early sign of a more serious medical problem. If vomiting develops, or if you are not able to drink enough fluids, you are at risk of becoming dehydrated. Follow recommendations for eating and drinking and take bbla-dly-guwpdrb and prescription medicinesonly as told by your health care provider. Contact a health care provider right away if your symptoms worsen or you have new symptoms. Keep all follow-up visits. This is important. This information is not intended to replace advice given to you by your health care provider. Make sure you discuss any questions you have with your health care provider. Document Revised: 04/21/2022 Document Reviewed: 04/21/2022 [employer] Patient Education 2022 [employer]. 12/26/2023 01:55:43 Abdominal Pain, Adult, Ljfx-ug-Fnaw Abdominal Pain, Adult Many things can cause belly (abdominal) pain. Most times, belly pain is not dangerous. Many cases of belly pain can be watched and treated at home. Sometimes, though, belly pain is serious. Your doctor will try to find the cause of your belly pain. Follow these instructions at home: Medicines Take lgoz-reb-hxqdaka and prescription medicines only as told by your doctor. Do not take medicines that help you poop (laxatives) unless told by your doctor. General instructions Watch your belly pain for any changes. Drink enough fluid to keep your pee (urine) pale yellow. Keep all follow-up visits as told by your doctor. This is important. Contact a doctor if: Your belly pain changes or gets worse. You are not hungry, or you lose weight without trying. You are having trouble pooping (constipated) or have watery poop (diarrhea) for more than 2 3 days. You have pain when you pee or poop. Your belly pain wakes you up at night. Your pain gets worse with meals, after eating, or with certain foods. You are vomiting and cannot keep anything down. You have a fever. You have blood in your pee. Get help right away if: Your pain does not go away as soon as your doctor says it should. You cannot stop vomiting. Your pain is only in areas of your belly, such as the right side or the left lower part of the belly. You have bloody or black poop, or poop that looks like tar. You have very bad pain, cramping, or bloating in your belly. You have signs of not having enough fluid or water in your body (dehydration), such as: ?Dark pee, very little pee, or no pee. ?Cracked lips. ?Dry mouth. ?Sunken eyes. ?Sleepiness. ?Weakness. You have trouble breathing or chest pain. Summary Many cases of belly pain can be watched and treated at home. Watch your belly pain for any changes. Take dslt-tge-ggqjeig and prescription medicines only as told by your doctor. Contact a doctor if your belly pain changes or gets worse. Get help right away if you have very bad pain, cramping, or bloating in your belly. This information is not intended to replace advice given to you by your health care provider. Make sure you discuss any questions you have with your health care provider. Document Revised: 02/23/2020 Document Reviewed: 02/23/2020 [employer] Patient Education 2022 [employer]. Follow Up Care 12/25/2023 22:45:20 With:JAYESH ESCALANTE Address: [facility] [place] [phone]- Business (1) When:1 to 2 days [facility]02-14-2024 History of Present illness Narrative* Laina Trevizo, [employer]PA[employer]ER - 12/12/2023 9:30 AM EST Subjective Patient ID: Guerrero Ramos is a 43 y.o. female who presents for an ER follow up in regards to her knee. Guerrero is present for a follow up on her recent ER visit due to feeling like passing out and wouldlike to know why it happened. Hasn't been sick. Her left knee gave out at work a few days ago, paincomes and goes and is achy and is 7/10. She does have vertigo and states that's been alright and going the same. Would like to know if tolterodine can be increased she feels as if its not working. Knee Pain Incident onset: No incident. There was no injury mechanism. The pain is present in the left knee. The quality of the pain is described as aching. The pain is at a severity of 7/10. The pain is moderate. The pain has been Intermittent since onset. Associated symptoms comments: Sometimes pt has severe pain and is not able to get up off of couch. She reports no foreign bodies present. The symptoms are aggravated by movement. She has tried acetaminophen for the symptoms. The treatment provided no relief. Current Outpatient Medications on File Prior to Visit Medication Sig Dispense Refill ALPRAZolam (Xanax) 0.5 MG tablet TAKE 1 TABLET BY MOUTH TWICE DAILY (MORNING AND BEFORE BEDTIME) 60tablet 3 Continuous Blood Gluc Epic Prelude Analyst (Dexcom G7 Epic Prelude Analyst) device USE DIRECTED Continuous Blood Gluc Sensor (Dexcom G7 Sensor) misc APPLY 1 SENSOR EVERY 10 DAYS DIRECTED ergocalciferol (Vitamin D2) 1.25 MG (83995 UT) capsule TAKE 1 CAPSULE BY MOUTH ONCE A WEEK EVERY SUNDAY 12 capsule 3 fluticasone (Flonase) 50 MCG/ACT nasal spray Administer 2 sprays into each nostril in the morning for 15 days. Shake gently. Before first use, prime pump. After use, clean tip and replace cap.. 16 g 0 insulin glargine (Maxx Max Solostar, 2 unit dial,) 300 UNIT/ML injection Inject 15 Units under the skin at bedtime 3 mL 3 meclizine (Antivert) 25 MG tablet TAKE 1 TABLET BY MOUTH 4 TIMES DAILY NEEDED 120 tablet 0 pseudoephedrine (Sudafed) 60 MG tablet Take 1 tablet (60 mg) by mouth every 12 (twelve) hours for 15 days 30 tablet 0 ReliOn Pen [place] 31G X 6 MM misc USE 1 PEN ONCE DAILY IN THE MORNING rosuvastatin (Crestor) 20 MG tablet Take 1 tablet by mouth once daily 100 tablet 4 sertraline (Zoloft) 50 MG tablet Take 1 tablet (50 mg) by mouth in the morning. 90 tablet 3 SITagliptin (Januvia) 25 MG tablet Take 25 mg by mouth in the morning. tiZANidine (Zanaflex) 4 MG tablet Take 1 tablet (4 mg) by mouth as needed at bedtime for muscle spasms. 30 tablet 2 tolterodine (Detrol) 2 MG tablet traMADol (Ultram) 50 MG tablet Take 50 mg by mouth every 8 (eight) hours if needed. traZODone (Desyrel) 100 MG tablet TAKE 2 TABLETS BY MOUTH IN THE MORNING AND 2 AT BEDTIME 120 tablet 5 No current facility-administered medications on file prior to visit. Allergies Allergen Reactions Penicillin G Rash Penicillins Hives and Rash Social History Tobacco Use Smoking status: Never Smokeless tobacco: Never Vaping Use Vaping Use: Unknown Substance Use Topics Alcohol use: Never Comment: Caffeine intake: >4 cups per day soda, chocolate Drug use: Never Family History Problem Relation Name Age of Onset Torticollis Mother Other (htn) Mother Hypertension Mother Cancer Father Edgard zamora Past Medical History: Diagnosis Date Anemia Anxiety Chronic kidney disease Colon cancer (CMS/HCC) 11/18/15 Depression (CMS/HCC) Diabetes mellitus (CMS/HCC) Disease of thyroid gland (CMS/HCC) Family history of cancer History of transfusion Hypercholesteremia (CMS/HCC) Intussusception of colon (CMS/HCC) R/P mass Mucinous adenocarcinoma of colon (HCC) (CMS/HCC) [address] [facility] gen surg [facility] Polycystic disease, ovaries Ventral hernia 12/22/2021 ileus Vertigo Vitamin D deficiency Past Surgical History: Procedure Laterality Date COLECTOMY 10/2015 COLON SURGERY 2016 colectomy COLONOSCOPY 04/01/2019 COLONOSCOPY 2022 GALLBLADDER SURGERY IUD INSERTION 2007 mirena IUD INSERTION essure CA LAP,CHOLECYSTECTOMY 2014 Visit Vitals Smoking Status Never Review of Systems Constitutional: Negative. HENT: Negative. Eyes: Negative. Respiratory: Negative. Gastrointestinal: Negative. Genitourinary: Positive for frequency. Musculoskeletal: Left knee pain Neurological: Positive for dizziness. Psychiatric/Behavioral: Negative. Endocrine: Negative. Objective Physical Exam Vitals reviewed. Constitutional: Appearance: Normal appearance. HENT: Head: Normocephalic. Nose: Nose normal. Mouth/Throat: Mouth: Mucous membranes are moist. Pharynx: Oropharynx is clear. Cardiovascular: Rate and Rhythm: Regular rhythm. Heart sounds: Normal heart sounds. Pulmonary: Breath sounds: Normal breath sounds. Abdominal: Palpations: Abdomen is soft. Musculoskeletal: Left knee: Swelling, effusion and bony tenderness present. Skin: General: Skin is warm and dry. Neurological: General: No focal deficit present. Mental Status: She is alert and oriented to person, place, and time. Psychiatric: Mood and Affect: Mood normal. Behavior: Behavior normal. Assessment/Plan Diagnoses and all orders for this visit: Acute cystitis with hematuria - ciprofloxacin (Cipro) 500 MG tablet; Take 1 tablet (500 mg) by mouth in the morning and 1 tablet (500 mg) before bedtime. Do all this for 10 days. Start the above medications as directed. Provided patient with prescription for Pyridium for symptomatic relief. Advised of potential side effects including discoloration of urine. Increase water intake, get plenty of rest. Advised patient that the urine will be sent out for culture. May need to change the antibiotic based on the culture results. Cranberry juice ok. Avoid bath tubs and hot tubs or use the restroom afterwards, always wipe front to back, avoid fragrance soaps in that area, urinate after intercourse if sexually active. Discussed if patient develops any N/V, fever/chills, or symptoms dramatically increase, the patient is to go to the ER. Otherwise follow up at our office if no improvement in one week. Diabetes mellitus without complication ([facility]) - insulin glargine (Toujeo Julio César Solostar, 2 unit dial,) 300 UNIT/ML injection; Inject 18 Units underthe skin at bedtime We discussed today, the importance of proper diabetic control. We increased your trujeo today. We discussed possible complications of diabetes, including loss of vision, renal failure, increased riskof heart attacks and strokes, blood vessel and/or nerve damage. We discussed the recommended changes to reduce your blood sugars and minimize the risk of these complications. We discussed diabetic goa ls, including keeping A1C <7.0% and blood pressure < 130/70. The plan for achieving these goals is adherence to medications, diet, and regular activity as discussed during today's visit. We discussed current barriers to achieving these goals. We discussed dietary goals. We discussed calorie counting, as well as decreasing carbohydrate and simple sugar intake. Reviewed portion control with the patient. If the patient still has questions on this, a referral to a Dietitian can be arranged. Ireviewed medications that aid in diabetic control. We discussed proper dosing and educated the patient on possible side effects and complications. The patient verbalized understanding of these instructions. Primary osteoarthritis of left knee - meloxicam (Mobic) 15 MG tablet; Take 0.5 tablets (7.5 mg) by mouth in the morning. Take medication as prescribed. This will help with the arthritic pain in your knees. Overactive bladder - mirabegron ER (Myrbetriq) 25 MG 24 hr tablet; Take 1 tablet (25 mg) by mouth at bedtime Do not crush, chew, or split. This will reduce the frequency and help control the incontinence. You could develop urinary retention due to the use of detrol. If you develop retention, call us immediately. No follow-ups on file. documented in this encounterCarondelet [id number] Hospital Discharge instructions Patient Education 12/07/2023 20:48:02 Near-Syncope, Nytb-fj-Bvhj Near-Syncope Near-syncope is when you suddenly feel like you might pass out or faint. This may also be called presyncope. During an episode of near-syncope, you may: Feel dizzy, weak, or light-headed. It may feel like the room is spinning. Feel like you may vomit (nauseous). See spots or see all white or all black. Have cold, clammy skin. Feel warm and sweaty. Hear ringing in your ears. This condition is caused by a sudden decrease in blood flow to the brain. This can result from manycauses, but most of those causes are not dangerous. However, near-syncope may be a sign of a serious medical problem, so it is important to seek medical care. Follow these instructions at home: Medicines Take jhbk-rgj-ekpxywc and prescription medicines only as told by your doctor. If you are taking blood pressure or heart medicine, get up slowly and spend many minutes getting ready to sit and then stand. This can help with dizziness. Lifestyle Do not drive, use machinery, or play sports until your doctor says it is okay. Do not drink alcohol. Do not smoke or use any products that contain nicotine or tobacco. If you need help quitting, ask your doctor. Avoid hot tubs and saunas. General instructions Be aware of any changes in your symptoms. Talk with your doctor about your symptoms. You may need to have testing to help find the cause. If you start to feel like you might pass out, sit or lie down right away. If sitting, lower your head down between your legs. If lying down, raise (elevate) your feet above the level of your heart. ?Breathe deeply and steadily. Wait until all of the symptoms are gone. ?Have someone stay with you until you feel better. Drink enough fluid to keep your pee (urine) pale yellow. Avoid standing for a long time. If you must stand for a long time, do movements such as: ?Moving your legs. ?Crossing your legs. ?Flexing and stretching your leg muscles. ?Squatting. Keep all follow-up visits. Contact a doctor if: You continue to have episodes of near fainting. Get help right away if: You pass out or faint. You have any of these symptoms: ?Fast or uneven heartbeats (palpitations). ?Pain in your chest, belly, or back. ?Shortness of breath. You have a seizure. You have a very bad headache. You are confused. You have trouble seeing. You are very weak. You have trouble walking. You are bleeding from your mouth or butt. You have black or tarry poop (stool). These symptoms may be an emergency. Get help right away. Call your local emergency services (911 inthe [place] Do not wait to see if the symptoms will go away. Do not drive yourself to the hospital. Summary Near-syncope is when you suddenly feel like you might pass out or faint. This condition is caused by a sudden decrease in blood flow to the brain. Near-syncope may be a sign of a serious medical problem, so it is important to seek medical care. If you start to feel like you might pass out, sit or lie down right away. If sitting, lower your head down between your legs. If lying down, raise (elevate) your feet above the level of your heart. Talk with your doctor about your symptoms. You may need to have testing to help find the cause. This information is not intended to replace advice given to you by your health care provider. Make sure you discuss any questions you have with your health care provider. Document Revised: 02/23/2022 Document Reviewed: 02/23/2022 [employer] Patient Education 2022 [employer]. Follow Up Care 12/07/2023 14:32:22 With:JAYESH ESCALANTE Address: [address] [place] [address] Business (1) When:12/10/2023 20:24:29 [facility]02-09-2024 Evaluation + Plan noteExtracted from: Title:ED Note Author:Thomas Ferrera DO Date :12/07/23 Abdominal pain, acute (R10.9 : Unspecified abdominal pain) Hyperglycemia (R73.9: Hyperglycemia, unspecified) N&V (nausea and vomiting) (R11.2: Nausea with vomiting, unspecified) Orders: dicyclomine, 10 mg = 1 cap(s), Oral, QID, X 7 day(s), # 14 cap(s), Refills(s) 0, Pharmacy: [id number], 165, cm, 12/06/23 22:28:00 EST, Height/Length Dosing, 153.6, kg, 12/06/23 22:32:00 EST, Weight Dosing morphine, 4 mg = 1 mL, Injection, IV Push, Once, Stop date 12/07/23 0:17:00 EST, STAT, Start date 12/07/23 0:17:00 EST, 12/07/23 0:17:00 EST ondansetron, 4 mg = 2 mL, Injection, IV Push, Once, Stop date 12/07/23 0:17:00 EST, STAT, Start date 12/07/23 0:17:00 EST, 12/07/23 0:17:00 EST ondansetron, 4 mg = 1 tab(s), Oral, q8hr, # 12 tab(s), Refills(s) 0, Pharmacy: [facility], 165, cm, 12/06/23 22:28:00 EST, Height/Length Dosing, 153.6, kg, 12/06/23 22:32:00 EST, Weight Dosing Sodium Chloride 0.9% intravenous solution 1,000 mL, 1,000 mL, IV, 20 mL/hr, STAT, Start date 12/06/23 23:25:00 EST, 50 hour(s), Total volume (mL): 1,000, 153.6 kg, 2.65, m2 Sodium Chloride 0.9% intravenous solution 1,000 mL, 1,000 mL, IV, 983.61 mL/hr, for 30 day(s), Stop date 01/06/24 0:16:00 EST, STAT, Start date 12/07/23 0:17:00 EST, 61 minute(s), Total volume (mL): 1,000, 153.6 kg, 2.65, m2 Basic Metabolic Panel CBC w/ Auto Diff CT Abdomen/Pelvis w/o Contrast eGFR Extra Blue Tube Extra SST Tube Hepatic Function Panel Lactic Acid Lipase Level UA With Cult Reflex Urine Culture Diagnostic Tests Pending * Urine Culture 12/07/23 [facility]02-09-2024 Hospital Discharge instructions Patient Education 12/07/2023 04:47:15 Nausea and Vomiting, Adult, Orfu-kc-Zrle Nausea and Vomiting, Adult Nausea is feeling that you have an upset stomach and that you are about to vomit. Vomiting is when food in your stomach forcefully comes out of your mouth. Vomiting can make you feel weak. If you vomit, or if you are not able to drink enough fluids, you may not have enough water in your body (get dehydrated). If you do not have enough water in your body, you may: Feel tired. Feel thirsty. Have a dry mouth. Have cracked lips. Pee (urinate) less often. Older adults and people with other diseases or a weak body defense system (immune system) are at higher risk for not having enough water in the body. If you feel like you may vomit or you vomit, it is important to follow instructions from your doctor about how to take care of yourself. Follow these instructions at home: Watch your symptoms for any changes. Tell your doctor about them. Eating and drinking Take an ORS (oral rehydration solution). This is a drink that is sold at pharmacies and stores. Drink clear fluids in small amounts as you are able, such as: ?Water. ?Ice chips. ?Fruit juice that has water added (diluted fruit juice). ?Low-calorie sports drinks. Eat bland, uxpo-lu-jqrupt foods in small amounts as you are able, such as: ?Bananas. ?Applesauce. ?Rice. ?Low-fat (lean) meats. ?[place]. ?Crackers. Avoid drinking fluids that have a lot of sugar or caffeine in them. This includes energy drinks, sports drinks, and soda. Avoid alcohol. Avoid spicy or fatty foods. General instructions Take fagt-ewn-onlrwxx and prescription medicines only as told by your doctor. Drink enough fluid to keep your pee (urine) pale yellow. Wash your hands often with soap and water for at least 20 seconds. If you cannot use soap and water, use hand nurse infection control. Make sure that everyone in your home washes their hands well and often. Rest at home until you feel better. Watch your condition for any changes. Take slow and deep breaths when you feel like you may vomit. Keep all follow-up visits. Contact a doctor if: Your symptoms get worse. You have new symptoms. You have a fever. You cannot drink fluids without vomiting. You feel like you may vomit for more than 2 days. You feel light-headed or dizzy. You have a headache. You have muscle cramps. You have a rash. You have pain while peeing. Get help right away if: You have pain in your chest, neck, arm, or jaw. You feel very weak or you faint. You vomit again and again. You have vomit that is bright red or looks like black coffee grounds. You have bloody or black poop (stools) or poop that looks like tar. You have a very bad headache, a stiff neck, or both. You have very bad pain, cramping, or bloating in your belly (abdomen). You have trouble breathing. You are breathing very quickly. Your heart is beating very quickly. Your skin feels cold and clammy. You feel confused. You have signs of losing too much water in your body, such as: ?Dark pee, very little pee, or no pee. ?Cracked lips. ?Dry mouth. ?Sunken eyes. ?Sleepiness. ?Weakness. These symptoms may be an emergency. Get help right away. Call 911. Do not wait to see if the symptoms will go away. Do not drive yourself to the hospital. Summary Nausea is feeling that you have an upset stomach and that you are about to vomit. Vomiting is when food in your stomach comes out of your mouth. Follow instructions from your doctor about eating and drinking. Take ivlb-lkh-vpcpgvr and prescription medicines only as told by your doctor. Contact your doctor if your symptoms get worse or you have new symptoms. Keep all follow-up visits. This information is not intended to replace advice given to you by your health care provider. Make sure you discuss any questions you have with your health care provider. Document Revised: 04/21/2022 Document Reviewed: 04/21/2022 [employer] Patient Education 2022 [employer]. 12/07/2023 04:47:15 Abdominal Pain, Adult, Bpts-zx-Nwox Abdominal Pain, Adult Many things can cause belly (abdominal) pain. Most times, belly pain is not dangerous. Many cases of belly pain can be watched and treated at home. Sometimes, though, belly pain is serious. Your doctor will try to find the cause of your belly pain. Follow these instructions at home: Medicines Take igbs-yvg-ehvcxoh and prescription medicines only as told by your doctor. Do not take medicines that help you poop (laxatives) unless told by your doctor. General instructions Watch your belly pain for any changes. Drink enough fluid to keep your pee (urine) pale yellow. Keep all follow-up visits as told by your doctor. This is important. Contact a doctor if: Your belly pain changes or gets worse. You are not hungry, or you lose weight without trying. You are having trouble pooping (constipated) or have watery poop (diarrhea) for more than 2 3 days. You have pain when you pee or poop. Your belly pain wakes you up at night. Your pain gets worse with meals, after eating, or with certain foods. You are vomiting and cannot keep anything down. You have a fever. You have blood in your pee. Get help right away if: Your pain does not go away as soon as your doctor says it should. You cannot stop vomiting. Your pain is only in areas of your belly, such as the right side or the left lower part of the belly. You have bloody or black poop, or poop that looks like tar. You have very bad pain, cramping, or bloating in your belly. You have signs of not having enough fluid or water in your body (dehydration), such as: ?Dark pee, very little pee, or no pee. ?Cracked lips. ?Dry mouth. ?Sunken eyes. ?Sleepiness. ?Weakness. You have trouble breathing or chest pain. Summary Many cases of belly pain can be watched and treated at home. Watch your belly pain for any changes. Take etug-ehx-pnmnjsa and prescription medicines only as told by your doctor. Contact a doctor if your belly pain changes or gets worse. Get help right away if you have very bad pain, cramping, or bloating in your belly. This information is not intended to replace advice given to you by your health care provider. Make sure you discuss any questions you have with your health care provider. Document Revised: 02/23/2020 Document Reviewed: 02/23/2020 [employer] Patient Education 2022 [employer]. Follow Up Care 12/06/2023 22:05:33 With:JAYESH ESCALANTE Address: [address] [place] [address] [place] [id number] Business (1) When:12/10/2023 Comments:You can Use the Bentyl, Zofran as prescribed as needed for nausea and vomiting. Please follow-up with your primary care doctor in the next 2 to 3 days for further evaluation management. Please returnto the ED for any new or worsening symptoms. [facility]08-10-2023 Evaluation note* Encounter Date Diagnosis Assessment Notes Treatment Notes Treatment Clinical Notes May, CKD (chronic kidney disease) stage 4, GFR 15-29 ml/min (ICD-10 - N18.4) Patient has CKD since 2017 with creatinine variable between 1.8 to 2.2 mg/dL. She has nephrolithiasis with no obstruction. I discussed with her the importance of good DM and HTN control disorders and progression of CKD. May, Nephrolithiasis (ICD -10 - N20.0) She denies any recent passage of the kidney stones. Advised her to adequately hydrate herself. 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 Her most recent hemoglobin A1c was within the target goal. She will taken off the lisinopril due to the RIO. She did not tolerate Farxiga and Ozempic due to the side effects. She can be tried on other SGLT 2 inhibitors including Jardiance or Invokana or GLP agonist like Victoza or Mounjaro. 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 She appears to be euvolemic. May, Secondary hyperparathyroidism (ICD-10 - N25.81) Calcium is within normal limit. Will check PTH and vitamin D May, Dyslipidemia (ICD-10 - E78.5) Continue rosuvastatin. Monitor lipid profile and LFTs. Likely. I would recommend to avoid higher dose of the rosuvastatin due to risk of progression of CKD and hematuria in advance CKD patient. [employer] Other 03-24-2023 Hospital Discharge instructions Patient Education 01/19/2023 12:09:19 Nausea, Adult, Xnpd-yf-Iadk Nausea, Adult Nausea is feeling sick to your stomach or feeling that you are about to throw up (vomit). Feeling sick to your stomach is usually not serious, but it may be an early sign of a more serious medical problem. As you feel sicker to your stomach, you may throw up. If you throw up, or if you are not able to drink enough fluids, there is a risk that you may lose too much water in your body (get dehydrated). If you lose too much water in your body, you may: Feel tired. Feel thirsty. Have a dry mouth. Have cracked lips. Go pee (urinate) less often. Older adults and people who have other diseases or a weak body defense system (immune system) have a higher risk of losing too much water in the body. The main goals of treating this condition are: To relieve your nausea. To ensure your nausea occurs less often. To prevent throwing up and losing too much fluid. Follow these instructions at home: Watch your symptoms for any changes. Tell your doctor about them. Follow these instructions as toldby your doctor. Eating and drinking Take an ORS (oral rehydration solution). This is a drink that is sold at pharmacies and stores. Drink clear fluids in small amounts as you are able. These include: ?Water. ?Ice chips. ?Fruit juice that has water added (diluted fruit juice). ?Low-calorie sports drinks. Eat bland, hfen-sn-smpzdy foods in small amounts as you are able, such as: ?Bananas. ?Applesauce. ?Rice. ?Low-fat (lean) meats. ?[place]. ?Crackers. Avoid drinking fluids that have a lot of sugar or caffeine in them. This includes energy drinks, sports drinks, and soda. Avoid alcohol. Avoid spicy or fatty foods. General instructions Take mtrj-dvz-djlcjsg and prescription medicines only as told by your doctor. Rest at home while you get better. Drink enough fluid to keep your pee (urine) pale yellow. Take slow and deep breaths when you feel sick to your stomach. Avoid food or things that have strong smells. Wash your hands often with soap and water. If you cannot use soap and water, use hand nurse infection control. Make sure that all people in your home wash their hands well and often. Keep all follow-up visits as told by your doctor. This is important. Contact a doctor if: You feel sicker to your stomach. You feel sick to your stomach for more than 2 days. You throw up. You are not able to drink fluids without throwing up. You have new symptoms. You have a fever. You have a headache. You have muscle cramps. You have a rash. You have pain while peeing. You feel light-headed or dizzy. Get help right away if: You have pain in your chest, neck, arm, or jaw. You feel very weak or you pass out (faint). You have throw up that is bright red or looks like coffee grounds. You have bloody or black poop (stools) or poop that looks like tar. You have a very bad headache, a stiff neck, or both. You have very bad pain, cramping, or bloating in your belly (abdomen). You have trouble breathing or you are breathing very quickly. Your heart is beating very quickly. Your skin feels cold and clammy. You feel confused. You have signs of losing too much water in your body, such as: ?Dark pee, very little pee, or no pee. ?Cracked lips. ?Dry mouth. ?Sunken eyes. ?Sleepiness. ?Weakness. These symptoms may be an emergency. Do not wait to see if the symptoms will go away. Get medical help right away. Call your local emergency services (911 in the [place] Do not drive yourself to the hospital. Summary Nausea is feeling sick to your stomach or feeling that you are about to throw up (vomit). If you throw up, or if you are not able to drink enough fluids, there is a risk that you may lose too much water in your body (get dehydrated). Eat and drink what your doctor tells you. Take idwb-icy-zepgdaz and prescription medicines only as told by your doctor. Contact a doctor right away if your symptoms get worse or you have new symptoms. Keep all follow-up visits as told by your doctor. This is important. This information is not intended to replace advice given to you by your health care provider. Make sure you discuss any questions you have with your health care provider. Document Released: 10/03/2012 Document Revised: 03/25/2019 Document Reviewed: 03/25/2019 [employer] Patient Education 2020 [employer] 01/19/2023 12:09:19 Abdominal Pain, Adult, Uodn-sv-Pexx Abdominal Pain, Adult Many things can cause belly (abdominal) pain. Most times, belly pain is not dangerous. Many cases of belly pain can be watched and treated at home. Sometimes, though, belly pain is serious. Your doctor will try to find the cause of your belly pain. Follow these instructions at home: Medicines Take mmzc-jsl-hkyglem and prescription medicines only as told by your doctor. Do not take medicines that help you poop (laxatives) unless told by your doctor. General instructions Watch your belly pain for any changes. Drink enough fluid to keep your pee (urine) pale yellow. Keep all follow-up visits as told by your doctor. This is important. Contact a doctor if: Your belly pain changes or gets worse. You are not hungry, or you lose weight without trying. You are having trouble pooping (constipated) or have watery poop (diarrhea) for more than 2 3 days. You have pain when you pee or poop. Your belly pain wakes you up at night. Your pain gets worse with meals, after eating, or with certain foods. You are vomiting and cannot keep anything down. You have a fever. You have blood in your pee. Get help right away if: Your pain does not go away as soon as your doctor says it should. You cannot stop vomiting. Your pain is only in areas of your belly, such as the right side or the left lower part of the belly. You have bloody or black poop, or poop that looks like tar. You have very bad pain, cramping, or bloating in your belly. You have signs of not having enough fluid or water in your body (dehydration), such as: ?Dark pee, very little pee, or no pee. ?Cracked lips. ?Dry mouth. ?Sunken eyes. ?Sleepiness. ?Weakness. You have trouble breathing or chest pain. Summary Many cases of belly pain can be watched and treated at home. Watch your belly pain for any changes. Take afol-ehb-ntfnuaj and prescription medicines only as told by your doctor. Contact a doctor if your belly pain changes or gets worse. Get help right away if you have very bad pain, cramping, or bloating in your belly. This information is not intended to replace advice given to you by your health care provider. Make sure you discuss any questions you have with your health care provider. Document Released: 04/02/2009 Document Revised: 02/23/2020 Document Reviewed: 02/23/2020 [employer]vier Patient Education 2020 [employer]. Follow Up Care 01/19/2023 09:33:05 With:JAYESH ESCALANTE Address: Derek Gu[address] Business (1) When:01/22/2023 11:35:46 Comments:Follow-up with your primary care provider in 3 to 5 days. If symptoms worsen, do not improve, or new symptoms arise please report back to emergency department for further evaluation. [facility]03-24-2023 Evaluation + Plan noteExtracted from: Title:ED Note Author:Alistair Correa PA-C te:01/19/23 Abdominal pain (R10.9: Unspe cified abdominal pain) Nausea (R11.0: Nausea) Orders: dicyclomine, 10 mg = 1 cap(s), Oral, QID, X 7 day(s), # 28 cap(s), Refills(s) 0, Pharmacy: [id number], 165, cm, 01/19/23 9:55:00 EDT, Height/Length Dosing, 150, kg, 01/19/23 9:55:00 EDT, Weight Dosing ketorolac, 30 mg = 1 mL, Injection, IV Push, Once, Stop date 01/19/23 10:00:00 EDT, STAT, Start date 01/19/23 10:00:00 EDT, 01/19/23 10:00:00 EDT ondansetron, 4 mg = 2 mL, Injection, IV Push, Once, Stop date 01/19/23 10:00:00 EDT, STAT, Start date 01/19/23 10:00:00 EDT, 01/19/23 10:00:00 EDT ondansetron, 4 mg = 1 tab(s), Oral, q8hr, PRN Nausea/Vomiting, # 12 tab(s), Refills(s) 0, Pharmacy: [id number], 165, cm, 01/19/23 9:55:00 EDT, Height/Length Dosing, 150, kg, 01/19/23 9:55:00 EDT, Weight Dosing Sodium Chloride 0.9% intravenous solution, 1,000 mL, Soln-IV, IV, Once, Stop date 01/19/23 10:00:00 EDT, STAT, Start date 01/19/23 10:00:00 EDT, mL/hr, Infuse over 61, minute(s) Automated Diff Basic Metabolic Panel Beta hCG Qual CBC w/ Auto Diff CT Abdomen/Pelvis w/ Contrast eGFR Hepatic Function Panel Lipase Level UA With Cult Reflex [facility]01-30-2023 Hospital Discharge instructions Patient Education 11/27/2022 15:50:29 Colonoscopy, Care After Surgery Salam (CUSTOM) Colonoscopy Care After Surgery Please read the instructions outlined below and refer to this sheet in the next few weeks. These discharge instructions provide you with general information on caring [facility] Your doctor may also give you specific instructions. While your treatment has been planned according to the most current medical practices available, unavoidable complications occasionally occur. If you have any problems or questions after discharge, please call your doctor. ACTIVITY You may resume your regular activity, but move at a slower pace for the next 24 hours. Take frequent rest periods for the next 24 hours. Walking will help get rid of the air and reduce the bloated feeling in your abdomen (belly). No driving for 24 hours (because of the anesthesia (medicine) used during the test). You may shower. Do not sign any important legal documents or operate any machinery for 24 hours (because of the anesthesia used during the test). NUTRITION Drink plenty of fluids. You may resume your normal diet as instructed by your doctor. Begin with a light meal and progress to your normal diet. Heavy or fried foods are harder to digestand may make you feel nauseated (sick to your stomach). Avoid alcoholic beverages for 24 hours or as instructed. MEDICATIONS You may resume your normal medications unless your doctor tells you otherwise. WHAT YOU CAN EXPECT TODAY Some feelings of bloating in the abdomen. Passage of more gas than usual. Spotting of blood in your stool or on the toilet paper. FOLLOW-UP Your doctor will discuss the results of your test with you. SEEK IMMEDIATE MEDICAL ATTENTION IF: There is more than a spotting of blood in your stool. There is abdominal distention (your abdomen is swollen). There is vomiting. You have a temperature over 101.5 F. There is abdominal pain or discomfort that is severe or gets worse throughout the day. Follow Up Care 10/25/2022 14:33:15 With:Konstantin ROCHE Address: [address] [place] [address] Business (1) When: only if needed Comments:Call for any problems. [facility]01-30-2023 Evaluation + Plan noteExtracted from: Title:ANES Pre-operative Note Author:Maxx GUZMAN, R cristobal Thomas. Date:11/27/22 Plan [place] [employer] Anesthesiologists (ASA) physical status classification: Class III. Anesthetic Preoperative Plan: Anesthesia General. [facility]01-16-2023 Hospital Discharge instructions Patient Education 11/13/2022 11:39:38 Obesity, Adult Obesity, Adult Obesity is the condition of having too much total body fat. Being overweight or obese means that your weight is greater than what is considered healthy for your body size. Obesity is determined by a measurement called BMI. BMI is an estimate of body fat and is calculated from height and weight. Foradults, a BMI of 30 or higher is considered obese. Obesity can lead to other health concerns and major illnesses, including: Stroke. Coronary artery disease (CAD). Type 2 diabetes. Some types of cancer, including cancers of the colon, breast, uterus, and gallbladder. Osteoarthritis. High blood pressure (hypertension). High cholesterol. Sleep apnea. Gallbladder stones. Infertility problems. What are the causes? Common causes of this condition include: Eating daily meals that are high in calories, sugar, and fat. Being born with genes that may make you more likely to become obese. Having a medical condition that causes obesity, including: ?Hypothyroidism. ?Polycystic ovarian syndrome (PCOS). ?Binge-eating disorder. ?Belcourt syndrome. Taking certain medicines, such as steroids, antidepressants, and seizure medicines. Not being physically active (sedentary lifestyle). Not getting enough sleep. Drinking high amounts of sugar-sweetened beverages, such as soft drinks. What increases the risk? The following factors may make you more likely to develop this condition: Having a family history of obesity. Being a woman of descent. Being a man of descent. Living in an area with limited access to: ?[place], recreation centers, or sidewalks. ?Healthy food choices, such as grocery stores and [employer] markets. What are the signs or symptoms? The main sign of this condition is having too much body fat. How is this diagnosed? This condition is diagnosed based on: Your BMI. If you are an adult with a BMI of 30 or higher, you are considered obese. Your waist circumference. This measures the distance around your waistline. Your skinfold thickness. Your health care provider may gently pinch a fold of your skin and measureit. You may have other tests to check for underlying conditions. How is this treated? Treatment for this condition often includes changing your lifestyle. Treatment may include some or all of the following: Dietary changes. This may include developing a healthy meal plan. Regular physical activity. This may include activity that causes your heart to beat faster (aerobicexercise) and strength training. Work with your health care provider to design an exercise program that works for you. Medicine to help you lose weight if you are unable to lose 1 pound a week after 6 weeks of healthy eating and more physical activity. Treating conditions that cause the obesity (underlying conditions). Surgery. Surgical options may include gastric banding and gastric bypass. Surgery may be done if: ?Other treatments have not helped to improve your condition. ?You have a BMI of 40 or higher. ?You have life-threatening health problems related to obesity. Follow these instructions at home: Eating and drinking Follow recommendations from your health care provider about what you eat and drink. Your health care provider may advise you to: ?Limit fast food, sweets, and processed snack foods. ?Choose low-fat options, such as low-fat milk instead of whole milk. ?Eat 5 or more servings of fruits or vegetables every day. ?Eat at home more often. This gives you more control over what you eat. ?Choose healthy foods when you eat out. ?Learn to read food labels. This will help you understand how much food is considered 1 serving. ?Learn what a healthy serving size is. ?Keep low-fat snacks available. ?Limit sugary drinks, such as soda, fruit juice, sweetened iced tea, and flavored milk. Drink enough water to keep your urine pale yellow. Do not follow a fad diet. Fad diets can be unhealthy and even dangerous. Physical activity Exercise regularly, as told by your health care provider. ?Most adults should get up to 150 minutes of moderate-intensity exercise every week. ?Ask your health care provider what types of exercise are safe for you and how often you should exercise. Warm up and stretch before being active. Cool down and stretch after being active. Rest between periods of activity. Lifestyle Work with your health care provider and a dietitian to set a weight-loss goal that is healthy and reasonable for you. Limit your screen time. Find ways to reward yourself that do not involve food. Do not drink alcohol if: ?Your health care provider tells you not to drink. ?You are , may be , or are planning to become . If you drink alcohol: ?Limit how much you use to: ?0 1 drink a day for women. ?0 2 drinks a day for men. ?Be aware of how much alcohol is in your drink. In the [place] one drink equals one 12 oz bottle of beer (355 mL), one 5 oz glass of wine (148 mL), or one 1 oz glass of hard liquor (44 mL). General instructions Keep a weight-loss journal to keep track of the food you eat and how much exercise you get. Take yown-apm-igwzzvv and prescription medicines only as told by your health care provider. Take vitamins and supplements only as told by your health care provider. Consider joining a support group. Your health care provider may be able to recommend a support group. Keep all follow-up visits as told by your health care provider. This is important. Contact a health care provider if: You are unable to meet your weight loss goal after 6 weeks of dietary and lifestyle changes. Get help right away if you are having: Trouble breathing. Suicidal thoughts or behaviors. Summary Obesity is the condition of having too much total body fat. Being overweight or obese means that your weight is greater than what is considered healthy for your body size. Work with your health care provider and a dietitian to set a weight-loss goal that is healthy and reasonable for you. Exercise regularly, as told by your health care provider. Ask your health care provider what types of exercise are safe for you and how often you should exercise. This information is not intended to replace advice given to you by your health care provider. Make sure you discuss any questions you have with your health care provider. Document Released: 11/22/2005 Document Revised: 06/19/2019 Document Reviewed: 06/19/2019 [employer] Patient Education 2020 [employer] [facility] 12-28-2022 Hospital Discharge instructions Patient Education 10/25/2022 14:08:53 Abdominal Pain, Adult Abdominal Pain, Adult Pain in the abdomen (abdominal pain) can be caused by many things. Often, abdominal pain is not serious and it gets better with no treatment or by being treated at home. However, sometimes abdominal pain is serious. Your health care provider will ask questions about your medical history and do a physical exam to try to determine the cause of your abdominal pain. Follow these instructions at home: Medicines Take awsv-wzi-deknlnc and prescription medicines only as told by your health care provider. Do not take a laxative unless told by your health care provider. General instructions Watch your condition for any changes. Drink enough fluid to keep your urine pale yellow. Keep all follow-up visits as told by your health care provider. This is important. Contact a health care provider if: Your abdominal pain changes or gets worse. You are not hungry or you lose weight without trying. You are constipated or have diarrhea for more than 2 3 days. You have pain when you urinate or have a bowel movement. Your abdominal pain wakes you up at night. Your pain gets worse with meals, after eating, or with certain foods. You are vomiting and cannot keep anything down. You have a fever. You have blood in your urine. Get help right away if: Your pain does not go away as soon as your health care provider told you to expect. You cannot stop vomiting. Your pain is only in areas of the abdomen, such as the right side or the left lower portion of the abdomen. Pain on the right side could be caused by appendicitis. You have bloody or black stools, or stools that look like tar. You have severe pain, cramping, or bloating in your abdomen. You have signs of dehydration, such as: ?Dark urine, very little urine, or no urine. ?Cracked lips. ?Dry mouth. ?Sunken eyes. ?Sleepiness. ?Weakness. You have trouble breathing or chest pain. Summary Often, abdominal pain is not serious and it gets better with no treatment or by being treated at home. However, sometimes abdominal pain is serious. Watch your condition for any changes. Take mecs-xdv-uqyruyn and prescription medicines only as told by your health care provider. Contact a health care provider if your abdominal pain changes or gets worse. Get help right away if you have severe pain, cramping, or bloating in your abdomen. This information is not intended to replace advice given to you by your health care provider. Make sure you discuss any questions you have with your health care provider. Document Released: 07/25/2006 Document Revised: 02/23/2020 Document Reviewed: 02/23/2020 [employer] Patient Education 2019 [employer]. Follow Up Care 10/24/2022 09:09:33 With:Alysia Pulido CNP Address: When:1 to 2 weeks Comments:Following colonoscopy. [facility] 11-17-2022 Evaluation note* Encounter Date Diagnosis Assessment Notes Treatment Notes Treatment Clinical Notes Aug, CKD (chronic kidney disease) stage 4, GFR 15-29 ml/min (ICD-10 - N18.4) Patient has CKD since 2016 with creatinine variable between 1.8 to 2.2 mg/dL. She had a creatinine up to 3.1 mg/dL in July however it is now back to baseline of lisinopril. Patient has bilateral atrophic kidneys with calcified cyst the reason of which is not clear. She has nephrolithiasis with no obstruction. Patient has low phosphorus 2.7 despite CKD. She has normal calcium and intact PTH. Possibility of primary hyperparathyroidism need to be ruled out. We will check 24-hour urine for calcium, creatinine and protein. We will consider parathyroid sestamibi scan if urinary calcium is elevated. Aug, Diabetes mellitus with diabetic nephropathy (ICD-10 - E11.21) Patient stated that she has borderline diabetes currently on Farxiga. She stated that she never been on insulin. She has a proteinuria. Diabetes is well controlled with A1c 5.7%. Aug, Constipation (ICD-10 - K59.00) She presented to the ER complaining with constipation and fecal impaction. I gave her a prescription for Dulcolax last admission and she was referred to GI. Patient stated that Dulcolax did not work well and she canceled GI appointment. She has no more GI complaints. [employer] Other 10-27-2022 Evaluation note* Encounter Date Diagnosis Assessment Notes Treatment Notes Treatment Clinical Notes Jul, CKD (chronic kidney disease) stage 4, GFR 15-29 ml/min (ICD-10 - N18.4) Patient presented with elevated serum creatinine 3.1 mg/dL on 08/20/2022 that has been slowly going up since 2017 with creatinine 1.8 mg/dL back then. Multiple CT scan of the abdomen showed bilateral atrophic kidneys with calcifications and history of kidney stones. No evidence of obstructive uropathy. Patient denies nonsteroidal anti-inflammatory drug use. 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 She has only 1 sister and she said that she is healthy. Patient is morbidly obese with prediabetes and glucosuria and there is a possibility that she has FSGS related to morbid obesity or diabetic nephropathy especially with current proteinuria. Will proceed with work-up for CKD including spot urine for protein and creatinine with further evaluation if she has nephrotic range proteinuria. It would be a challenge to have a kidney biopsy considering her BMI. The CT scan showed atrophic calcified kidneys and the chance to find a treatable disease is less likely. Unfortunately, patient may continue to have progressive CKD requiring dialysis in near future. Importance of weight loss and diabetes control has been addressed. Jul, Diabetes mellitus with diabetic nephropathy (ICD-10 - E11.21) Patient stated that she has borderline diabetes currently on Farxiga. She stated that she never been on insulin. She has a proteinuria. We will check A1c and lipid profile and adjust the medications as indicated. We will keep the patient off NAVA inhibitor at this point. We will stop Farxiga if GFR drops below 20 mill per minute. Jul, Constipation (ICD-10 - K59.00) She has been complaining from persistent constipation since ER visit with no improvement. She did try multiple vdcu-mgo-wgnxrhh stool softener and cathartics. We will add bisacodyl 5 mg daily and will refer to GI for further evaluation. [employer] Other 08-08-2022 Evaluation note* Encounter Date Diagnosis Assessment Notes Treatment Notes Treatment Clinical Notes May, Injury of right hand, initial encounter (ICD-10 - S69.91XA) May, Tendonitis (ICD-10 - M77.9) Use RICE therapy as discussed: Rest, Ice Compression, Elevate. Apply ice to affected area 3-4 times daily (Do not place ice source directly on skin, must cover with towel-like material). Take medication as directed. Rest and elevate sore extremity as much as possible. Do not take OTC medication pain relievers if prescription of medication given in office today. Contact office if no improvement of symptoms and we will help you get into a specialist. [employer] Other 06-17-2022 Hospital Discharge instructions Patient Education 04/14/2022 15:57:39 Abdominal Pain, Adult Abdominal Pain, Adult Pain in the abdomen (abdominal pain) can be caused by many things. Often, abdominal pain is not serious and it gets better with no treatment or by being treated at home. However, sometimes abdominal pain is serious. Your health care provider will ask questions about your medical history and do a physical exam to try to determine the cause of your abdominal pain. Follow these instructions at home: Medicines Take acbq-fxb-gbjglwq and prescription medicines only as told by your health care provider. Do not take a laxative unless told by your health care provider. General instructions Watch your condition for any changes. Drink enough fluid to keep your urine pale yellow. Keep all follow-up visits as told by your health care provider. This is important. Contact a health care provider if: Your abdominal pain changes or gets worse. You are not hungry or you lose weight without trying. You are constipated or have diarrhea for more than 2 3 days. You have pain when you urinate or have a bowel movement. Your abdominal pain wakes you up at night. Your pain gets worse with meals, after eating, or with certain foods. You are vomiting and cannot keep anything down. You have a fever. You have blood in your urine. Get help right away if: Your pain does not go away as soon as your health care provider told you to expect. You cannot stop vomiting. Your pain is only in areas of the abdomen, such as the right side or the left lower portion of the abdomen. Pain on the right side could be caused by appendicitis. You have bloody or black stools, or stools that look like tar. You have severe pain, cramping, or bloating in your abdomen. You have signs of dehydration, such as: ?Dark urine, very little urine, or no urine. ?Cracked lips. ?Dry mouth. ?Sunken eyes. ?Sleepiness. ?Weakness. You have trouble breathing or chest pain. Summary Often, abdominal pain is not serious and it gets better with no treatment or by being treated at home. However, sometimes abdominal pain is serious. Watch your condition for any changes. Take [id number] and prescription medicines only as told by your health care provider. Contact a health care provider if your abdominal pain changes or gets worse. Get help right away if you have severe pain, cramping, or bloating in your abdomen. This information is not intended to replace advice given to you by your health care provider. Make sure you discuss any questions you have with your health care provider. Document Released: 07/25/2006 Document Revised: 02/23/2020 Document Reviewed: 02/23/2020 [employer] Patient Education 2019 [employer]. Follow Up Care 04/14/2022 11:59:42 With:JAYESH ESCALANTE Address: [address] [place] [address] [place] [address] Business (1) When:04/17/2022 15:28:53 [facility]06-17-2022 Evaluation + Plan noteExtracted from: Title:ED Note Author:Edi Reagan PA-C te:04/14/22 Abdominal pain (R10.9: Unspe cified abdominal pain) Kidney disease (N28.9: Disorder of kidney and ureter, unspecified) Orders: acetaminophen-oxycodone, 1 tab(s), Tab, Oral, Once, Stop date 04/14/22 15:28:00 EDT, STAT, Start date 04/14/22 15:28:00 EDT dicyclomine, 20 mg = 1 tab(s), Oral, TID, X 7 day(s), # 21 tab(s), Refills(s) 0, Pharmacy: [id number], 165, cm, 04/14/22 12:06:00 EDT, Height/Length Dosing, 151, kg, 04/14/22 12:06:00 EDT, Weight Dosing dicyclomine, 20 mg = 1 tab(s), Tab, Oral, Once, Stop date 04/14/22 15:28:00 EDT, STAT, Start date 04/14/22 15:28:00 EDT, 04/14/22 15:28:00 EDT morphine, 4 mg = 2 mL, Injection, IV Push, Once, Stop date 04/14/22 12:06:00 EDT, STAT, Start date 04/14/22 12:06:00 EDT, 04/14/22 12:06:00 EDT ondansetron, 4 mg = 2 mL, Injection, IV Push, Once, Stop date 04/14/22 12:06:00 EDT, STAT, Start date 04/14/22 12:06:00 EDT, 04/14/22 12:06:00 EDT ondansetron, 4 mg = 1 tab(s), Oral, TID, # 15 tab(s), Refills(s) 0, Pharmacy: [id number], 165, cm, 04/14/22 12:06:00 EDT, Height/Length Dosing, 151, kg, 04/14/22 12:06:00 EDT, Weight Dosing Sodium Chloride 0.9% intravenous solution, 1,000 mL, Soln-IV, IV, Once, Stop date 04/14/22 12:06:00 EDT, STAT, Start date 04/14/22 12:06:00 EDT, mL/hr, Infuse over 61, minute(s) Automated Diff Basic Metabolic Panel Beta hCG Qual CBC w/ Auto Diff CT Abdomen/Pelvis w/o Contrast eGFR Extra Blue Tube Hepatic Function Panel Lipase Level UA With Cult Reflex [facility] Steph Rollins [facility] February 11, 2024 2:50pm Note Date/Time February 11, 2024 2:5 0pm [facility] [address] [place] [address] Discharge Summary Signed Patient: Guerrero Ramos MR#: [id number] : 1980 Acct:[id number] Age/Sex: 43 / F Adm Date: 4 Loc: 4N Room: 5A8329-[address]: Steph Rollins MD Copies to: MD Lily Schmidt [employer]Y [employer]LECT[employer] TRAIN REPAIRER-C~ Providers Date of Discharge: 02/11/24 Discharging Provider: Steph Rollins Primary Care Provider: Lily Rosales Consults: 02/08/24 15:22 Consult to General Surgery Routine Comment: Consulting Provider: [facility] Reason For Exam: Partial SBO Has Provider Been Notified: Yes Date of Notification: 02/08/24 Time of Notification: 16:16 Consult to Occupational Therapy Routine Comment: Physician Instructions: Consult to OT for:: Evaluation and Treat Consult to Physical Therapy Routine Comment: Physician Instructions: Consult to PT for:: Evaluation and Treat 02/09/24 10:25 Consult to Nephrology Routine Comment: Consulting Provider: JENNYFER - Nephrology Has Provider Been Notified: Yes Date of Notification: 02/09/24 Time of Notification: 10:37 Reason for Consult: Acute Kidney Injury Discharge Diagnosis (1) Bowel obstruction: (2) Type 2 diabetes mellitus with diabetic chronic kidney disease: (3) CKD (chronic kidney disease) stage 3, GFR 30-59 ml/min: (4) Partial small bowel obstruction: (5) Acute kidney injury superimposed on chronic kidney disease: (6) Proteinuria: (7) BMI 60.0-69.9, adult: (8) History of colon cancer: Final Diagnosis Final Discharge Diagnosis: as above Summary Hospital Course Hospital course: Ms. Ramos is a 43yo F with PMH of morbid obesity (BMI 60), depressive disorder NOS colon cancer status post resection, multiple ventral hernias, HLD, CKDIII who presented to the emergency department with complaints of intractable nausea and vomiting over 3 days. Patient notes that she has a history of colonic resection for colon cancer approximately 8 years ago. Patient has been dealing with ventral hernias over the past few years. She was to have some of these hernias repaired at some point, but this did not occur, because she was unable to lose weight. Patient had right-sided upper abdominal pain associated with nausea and vomiting. She reports inability to take p.o. for 2 days. She she did have a liquid bowel movement in the emergency department earlier today but otherwise has not had a formed bowel movement in 1 week. In the emergency department, CBC does not demonstrate any acute changes suggestive of acute infection. UA is negative. Lipase is within normal limits. Viral panel is negative. Chemistry only notes mildly elevated creatinine above baseline at 2.1. CT imaging of the abdomen/pelvis notes the multiple abdominal wall hernias and there is mild distention of a loop of small bowel in the mid upper anterior wall hernia that suggests partial obstruction. During hospital course, surgery team was consulted. Conservative management was followed. NG tube was placed and patient had a lot of output, she was weaned off and eventually NG tube was removed and patient tolerated clear liquids then was advanced today to soft GI diet which she tolerated well and cleared for discharge from surgical standpoint. Patient was started on IV antibiotics for acute complicated UTI she received couple of days of IV here will transition to oral antibiotics for 3 more days to complete 5-day course of treatment for UTI. Nephrology was consulted during hospital course and followed regarding her kidney functions and CKD stage III. Kidney function improved with IV fluids andseems to be stable. Discussed with patient at bedside, all question answered, patient is very eager and would like to go home today as she is feeling much better. Advised to maintain outpatient follow-ups as directed. Patient in agreement with this plan. Condition Condition at Discharge: Stable Time Spent with Patient Time spent providing/coordinating discharge services (# min): 34 Discharge Plan Discharge Plan Patient Disposition: Home Activity: Ambulate as Tolerated Diet: Other Comment: GI soft/low fiber diet Instructions: Abdominal Hernia (DC), Small Bowel Obstruction (DC) Stand Alone Forms: Work/School Release Form Prescriptions: New cefdinir 300 mg capsule 300 mg PO BID 3 Days Qty: 6 0RF Continued trazodone 100 mg tablet 200 mg PO BID Patient Comments: TAKE 2 TABLETS BY MOUTH TWICE DAILY rosuvastatin 20 mg tablet 20 mg PO HS Patient Comments: TAKE 1 TABLET BY MOUTH ONCE DAILY alprazolam [Xanax] 0.5 mg Tablet 0.5 mg PO DAILY meclizine 25 mg Tablet 25 mg PO BID sertraline [Zoloft] 50 mg Tablet 50 mg PO DAILY ergocalciferol (vitamin D2) 1,250 mcg (50,000 unit) capsule 1,250 mcg PO QWEEK Patient Comments: TAKE 1 CAPSULE BY MOUTH ONCE A WEEK EVERY SUNDAY Januvia 25 mg tablet 25 mg PO DAILY insulin glargine U-300 conc [Toujeo SoloStar U-300 Insulin] 300 unit/mL (1.5 mL) Insulin Pen 30 unit SUBCUT DAILY levothyroxine 75 mcg tablet 75 mcg PO QAM tolterodine 2 mg tablet 2 mg PO BID Myrbetriq 25 mg tablet extended release 24 hr 25 mg PO DAILY (DME) pen needle, diabetic 31 gauge x 15/64 needle MISCELLANEOUS Mounjaro 2.5 mg/0.5 mL pen injector 2.5 mg SUBCUT QWEEK Patient Comments: takes on tuesdays Discontinued meloxicam 7.5 mg tablet 7.5 mg PO QAM sertraline 50 mg tablet 50 mg PO DAILY Follow Up: Dawood Clemente MD [Active Staff] - 02/25/24 9:30 am () Lily Rosales NP-C [Primary Care Provider] - 02/21/24 11:20 am (Post hospital appointment. Please call to reschedule if needed.) Allison Melgar MD [Active Staff] - 02/14/24 10:00 am (Keep your appointment as already scheduled.) Exam Physical Exam Vital Signs: Temp Pulse Resp BP Pulse Ox O2 Del Method O2 Flow Rate 98.0 F 87 17 159/100 H 97 Room Air 2 02/11/24 10:26 02/11/24 10:02/11/24 03:11 02/11/24 10:02/11/24 10:02/11/24 08:10 02/11/24 08:00 Narrative: Const General: cooperative, BMI 60.9. HEENT Normal oropharyngeal mucosa without any ulcers or exudates Eyes: Conjunctiva normal Pulmonary Auscultation: clear to auscultation , no crackles, no wheezes Cardiovascular Rate: normal rate Rhythm: regular rhythm Heart Sounds: S1 normal, S2 normal and no murmurs GI Palpation: soft, not firm and nontender. No rigidity or rebound. Deferred Neuro General: alert, awake and oriented x3. No obvious new focal deficit Musculoskeletal: normal range of motion Extrem General: no cyanosis, no pedal edema Psych Appearance: appropriate affect. Grossly normal Diagnostic Studies Completed and Pending Studies Labs on day of discharge: 02/11/24 07:57: POC Glucose 156 02/11/24 06:47: Corrected WBC 5.4, Uncorrected WBC Count 5.4, RBC 4.27, Hgb 11.3L, Hct 33.3 L, MCV 78.0 L, MCH 26.4, MCHC 33.8, RDW 14.5, Plt Count 209, MPV 7.2, Neut % (Auto) 66.3, Lymph % (Auto) 21.4, [place] % (Auto) 6.9, Eos % (Auto) 4.9, Baso % (Auto) 0.5, Nucleat RBC Rel Count 0.3, Neut # (Auto) 3.6, Lymph # (Auto) 1.2, [place] # (Auto) 0.4, Eos # (Auto) 0.3, Baso # (Auto) 0.0, PHA Creatinine Clear 53.15, Sodium 140, Potassium 3.4 L, Chloride 106, Carbon Dioxide 27.9, Anion Gap 9.5, BUN 20, Creatinine 2.00 H D, Est GFR (CKD-EPI) 31.010, Glucose 147 H, Calcium 8.5 L, Total Bilirubin 0.4, AST 30, ALT 24, Alkaline Phosphatase 62, Total Protein 6.3 L, Albumin 3.3 L, Globulin 3.0, Albumin/Globulin Ratio 1.1 02/10/24 21:35: POC Glucose 127 02/10/24 15:57: POC Glucose 160 Documented By: Steph Rollins MD 02/11/24 14 45 Signed By: <Electronically signed by Steph Rollins MD> 02/11/24 1450 [facility] Work Phone: Evaluation + Plan note Future Appointments Appointment Date:11/27/2022 03:00:00 PM Scheduled Provider: Location:[facility] Appointment Type:Surgery [facility] Evaluncqxi noteNo assessment information available [facility] Work Phone: Evalujklgx noteNo InformationNortBarix [facility] [place] [facility] [place] Other Evaluation note* Diagnosis Acute cystitis with hematuria- Primary Diabetes mellitus without complication (CMS/HCC) Type II or unspecified type diabetes mellitus without mention of complication, not stated as uncontrolled Primary osteoarthritis of left knee Overactive bladder Hypertonicity of bladder [facility] Diagnosis Onset Date Resolution Status Acute kidney injury superimp osed on chronic kidney disease acute BMI 60.0-69.9, adult acute Bowel obstruction acute CKD (chronic kidney disease) stage 3, GFR 30-59 ml/min acute History of colon cancer acut e Partial small bowel obstruction acute Proteinuria acute Type 2 diabetes mellitus wit h diabetic chronic kidney disease acute [facility] Work Phone: Evaluation note* Diagnosis Onset Date Resolution Status Acute kidney injury superimp osed on chronic kidney disease acute BMI 60.0-69.9, adult acute Bowel obstruction acute CKD (chronic kidney disease) stage 3, GFR 30-59 ml/min acute History of colon cancer acut e Partial small bowel obstruction acute Proteinuria acute Type 2 diabetes mellitus wit h diabetic chronic kidney disease acute Anemia of renal disease acut e CKD (chronic kidney disease) stage 3, GFR 30-59 ml/min acute Hyperlipidemia acute Nephrolithiasis acute Proteinuria acute Secondary hyperparathyroidism acute Type 2 diabetes mellitus wit h diabetic chronic kidney disease acute [facility] Work Phone: Evaluation note* Diagnosis Incisional hernia, without obstruction or gangrene- Primary Incisional hernia without mention of obstruction or gangrene [facility] Diagnosis Onset Date Resolution Status Acute kidney injury superimp osed on chronic kidney disease resolved Partial small bowel obstruction resolved Anemia of renal disease acut e Hyperlipidemia acute [id number] acute Nephrolithiasis acute Secondary hyperparathyroidism acute [facility] Work Phone: Evaluation note* Diagnosis Class 3 severe obesity due to excess calories with serious comorbidity and body mass index (BMI) of 50.0 to 59.9 in adult (HCC)- Primary Snoring Other dyspnea and respiratory abnormality [facility] Diagnosis Onset Date Resolution Status RIO (acute kidney injury) ac yuhaaviatam Pyelonephritis acute [facility] Work Phone: Evaluation note* Diagnosis Onset Date Resolution Status Acute kidney injury superimp osed on chronic kidney disease acute RIO (acute kidney injury) ac yuhaaviatam BMI 50.0-59.9, adult acute CKD (chronic kidney disease) stage 3, GFR 30-59 ml/min acute Dehydration acute GERD (gastroesophageal reflux disease) acute [id number] acute Pyelonephritis acute Type 2 diabetes mellitus acu te Type 2 diabetes mellitus wit h diabetic chronic kidney disease acute UTI (urinary tract infection), bacterial acute [facility] Work Phone: Evaluation note* Diagnosis Onset Date Resolution Status Acute kidney injury superimp osed on chronic kidney disease acute RIO (acute kidney injury) ac yuhaaviatam BMI 50.0-59.9, adult acute CKD (chronic kidney disease) stage 3, GFR 30-59 ml/min acute Dehydration acute GERD (gastroesophageal reflux disease) acute [id number] acute Pyelonephritis acute Type 2 diabetes mellitus acu te Type 2 diabetes mellitus wit h diabetic chronic kidney disease acute UTI (urinary tract infection), bacterial acute Anemia of renal disease acut e CKD (chronic kidney disease) stage 3, GFR 30-59 ml/min acute Hyperlipidemia acute [id number] acute Secondary hyperparathyroidism acute Type 2 diabetes mellitus wit h diabetic chronic kidney disease acute [facility] Work Phone: Evaluation note* Diagnosis Incisional hernia, without obstruction or gangrene- Primary Incisional hernia without mention of obstruction or gangrene [facility]* Diagnosis Class 3 severe obesity due to excess calories with serious comorbidity and body mass index (BMI) of 50.0 to 59.9 in adult ([facility])- Primary Type 2 diabetes mellitus with chronic kidney disease, with long-term current use of insulin, unspecified CKD stage ([facility]) Dietary counseling and surveillance Dietary surveillance and counseling Hypertension, unspecified type Obstructive sleep apnea Obstructive sleep apnea (adult) (pediatric) Vitamin D deficiency Unspecified vitamin D deficiency [facility]* Diagnosis Preoperative examination- Primary Preoperative examination, unspecified Incisional hernia, without obstruction or gangrene Incisional hernia without mention of obstruction or gangrene [facility]* Diagnosis Class 3 severe obesity due to excess calories with serious comorbidity and body mass index (BMI) of 50.0 to 59.9 in adult ([facility])- Primary Type 2 diabetes mellitus with chronic kidney disease, with long-term current use of insulin, unspecified CKD stage ([facility]) Dietary counseling and surveillance Dietary surveillance and counseling Hypertension, unspecified type Preoperative examination Preoperative examination, unspecified Incisional hernia, without obstruction or gangrene Incisional hernia without mention of obstruction or gangrene [facility]* Diagnosis Class 3 severe obesity due to excess calories with serious comorbidity and body mass index (BMI) of 50.0 to 59.9 in adult ([facility])- Primary Type 2 diabetes mellitus with chronic kidney disease, with long-term current use of insulin, unspecified CKD stage ([facility]) Dietary counseling and surveillance Dietary surveillance and counseling Hypertension, unspecified type Preoperative examination Preoperative examination, unspecified Incisional hernia, without obstruction or gangrene Incisional hernia without mention of obstruction or gangrene [facility] Diagnosis Social anxiety disorder Social phobia [facility]* Diagnosis Sinus tarsi syndrome, right- Primary Ankle instability, right DJD (degenerative joint disease), ankle and foot, right Posterior tibial tendonitis, right Type II or unspecified type diabetes mellitus with neurological manifestations, not stated as uncontrolled(250.60) ([facility]) Type II or unspecified type diabetes mellitus with neurological manifestations, not stated as uncontrolled documented in this encounter [facility]* Diagnosis Class 3 severe obesity due to excess calories with serious comorbidity and body mass index (BMI) of 50.0 to 59.9 in adult ([facility])- Primary Type 2 diabetes mellitus with chronic kidney disease, with long-term current use of insulin, unspecified CKD stage ([facility]) Dietary counseling and surveillance Dietary surveillance and counseling Hypertension, unspecified type Preoperative examination Preoperative examination, unspecified Incisional hernia, without obstruction or gangrene Incisional hernia without mention of obstruction or gangrene [facility]* Diagnosis Overactive bladder Hypertonicity of bladder Current mild episode of major depressive disorder, unspecified whether recurrent ([facility]) Vertigo Dizziness and giddiness Social anxiety disorder Social phobia documented in this encounter [facility]* Diagnosis Sinus tarsi syndrome, right- Primary DJD (degenerative joint disease), ankle and foot, right Diabetes mellitus due to underlying condition with diabetic polyneuropathy, unspecified whether prison insulin use ([facility]) Pain due to onychomycosis of toenails of both feet Ankle instability, right Peroneal tendinitis, left Contracture of left ankle documented in this encounter [facility]* Diagnosis Morbid obesity with BMI of 50.0-59.9, adult ([facility]) Vertigo Dizziness and giddiness documented in this encounter [facility]* Diagnosis Social anxiety disorder Social phobia [facility]* Diagnosis Type 2 diabetes mellitus with hyperglycemia, with long-term current use of insulin ([facility])- Primary Morbid obesity with BMI of 50.0-59.9, adult ([facility]) Acquired hypothyroidism Unspecified hypothyroidism Type 2 diabetes mellitus with stage 3 chronic kidney disease, unspecified whether roasterman insulin use, unspecified whether stage 3a or 3b CKD ([facility]) Mild recurrent major depression ([facility]) Major depressive disorder, recurrent episode, mild Social anxiety disorder Social phobia Mixed hyperlipidemia Overactive bladder Hypertonicity of bladder documented in this encounter [facility]* Diagnosis Class 3 severe obesity due to excess calories with serious comorbidity and body mass index (BMI) of 50.0 to 59.9 in adult ([facility])- Primary Type 2 diabetes mellitus with chronic kidney disease, with long-term current use of insulin, unspecified CKD stage ([facility]) Dietary counseling and surveillance Dietary surveillance and counseling Hypertension, unspecified type Preoperative examination Preoperative examination, unspecified Incisional hernia, without obstruction or gangrene Incisional hernia without mention of obstruction or gangrene [facility]* Diagnosis Social anxiety disorder Social phobia documented in this encounter [facility]* Diagnosis Pre-op evaluation- Primary Preoperative examination, unspecified Snoring Other dyspnea and respiratory abnormality Class 3 severe obesity due to excess calories with serious comorbidity and body mass index (BMI) of 50.0 to 59.9 in adult ([facility]) Secondary hypertension Other secondary hypertension, unspecified Hyperlipidemia, unspecified hyperlipidemia type Stage 4 chronic kidney disease ([facility]) Hypothyroidism, unspecified type Incisional hernia, without obstruction or gangrene Incisional hernia without mention of obstruction or gangrene Preoperative examination Preoperative examination, unspecified Incisional hernia, without obstruction or gangrene Incisional hernia without mention of obstruction or gangrene * Assessment & Plan Note - Yandel Stevens MD - 01/12/2025 9:59 AM EDT Associated Problem(s): Hernia, incisional Scheduled for repair. * Assessment & Plan Note - Yandel Stevens MD - 01/12/2025 9:58 AM EDT Associated Problem(s): Class 3 severe obesity due to excess calories with serious comorbidity and body mass index (BMI) of 50.0 to 59.9 in adult ([facility]) BMI 51 * Assessment & Plan Note - Yandel Stevens MD - 01/12/2025 9:58 AM EDT Associated Problem(s): Hypothyroidism Managed on synthroid. * Assessment & Plan Note - Yandel Stevens MD - 01/12/2025 9:57 AM EDT Associated Problem(s): CKD (chronic kidney disease) Most recent sCr 2.43 from 08/2024. Electrolytes within normal limits. Will repeat BMP. Never on dialysis. * Assessment & Plan Note - Yandel Stevens MD - 01/12/2025 9:57 AM EDT Associated Problem(s): HLD (hyperlipidemia) On statin * Assessment & Plan Note - Yandel Stevens MD - 01/12/2025 9:56 AM EDT Associated Problem(s): HTN (hypertension) Managed on amlodipine [facility]* Diagnosis Uncontrolled type 2 diabetes mellitus with hyperglycemia ([facility]) documented in this encounter [facility]* Diagnosis Type 2 diabetes mellitus with hyperglycemia, with long-term current use of insulin ([facility]) documented in this encounter [facility] [facility] Diagnosis Morbid obesity with BMI of 50.0-59.9, adult ([facility]) [facility] Diagnosis Current mild episode of major depressive disorder, unspecified whether recurrent Acquired hypothyroidism Unspecified hypothyroidism Social anxiety disorder Social phobia documented in this encounter [facility]* Diagnosis Pre-op evaluation- Primary Preoperative examination, unspecified Snoring Other dyspnea and respiratory abnormality Class 3 severe obesity due to excess calories with serious comorbidity and body mass index (BMI) of 50.0 to 59.9 in adult Secondary hypertension Other secondary hypertension, unspecified Hyperlipidemia, unspecified hyperlipidemia type Stage 4 chronic kidney disease (HCC) Hypothyroidism, unspecified type Incisional hernia, without obstruction or gangrene Incisional hernia without mention of obstruction or gangrene Postoperative visit- Primary Other specified aftercare following surgery Type 2 diabetes mellitus with chronic kidney disease, with long-term current use of insulin, unspecified CKD stage (HCC) documented in this encounter [facility] note* Diagnosis Right upper quadrant abdominal pain- Primary Status post surgery Pain at surgical site documented in this encounter [facility]* Diagnosis Pre-op evaluation- Primary Preoperative examination, unspecified Snoring Other dyspnea and respiratory abnormality Class 3 severe obesity due to excess calories with serious comorbidity and body mass index (BMI) of 50.0 to 59.9 in adult Secondary hypertension Other secondary hypertension, unspecified Hyperlipidemia, unspecified hyperlipidemia type Stage 4 chronic kidney disease (HCC) Hypothyroidism, unspecified type Incisional hernia, without obstruction or gangrene Incisional hernia without mention of obstruction or gangrene Incisional hernia, without obstruction or gangrene- Primary Incisional hernia without mention of obstruction or gangrene documented in this encounter [facility] note* Diagnosis Morbid obesity with BMI of 50.0-59.9, adult ([facility]) documented in this encounter [facility]* Diagnosis Pre-op evaluation- Primary Preoperative examination, unspecified Snoring Other dyspnea and respiratory abnormality Class 3 severe obesity due to excess calories with serious comorbidity and body mass index (BMI) of 50.0 to 59.9 in adult Secondary hypertension Other secondary hypertension, unspecified Hyperlipidemia, unspecified hyperlipidemia type Stage 4 chronic kidney disease (HCC) Hypothyroidism, unspecified type Incisional hernia, without obstruction or gangrene Incisional hernia without mention of obstruction or gangrene Type 2 diabetes mellitus with chronic kidney disease, with long-term current use of insulin, unspecified CKD stage (HCC) [facility] Diagnosis Onset Date Resolution Status Admit Date Anemia of renal disease acute M ay 2024 12:40pm CKD (chronic kidney disease) stage 4, GFR 15-29 ml/min acute March 12 12:40pm Hyperlipidemia acute March 12, 2025 12:40pm Secondary hyperparathyroidism acute March 12, 2025 12:40pm Hypertensive chronic kidney disease with stage 1 through stage 4 chronic ki chronic March 12, 2025 12:40pm Nephrolithiasis chronic March 12, 2025 12:40pm Proteinuria chronic March 12 12:40pm Type 2 diabetes mellitus wit h diabetic chronic kidney disease chronic March 12, 2025 12:40pm [facility] Work Phone: Evaluation note* Diagnosis Type 2 diabetes mellitus with stage 3 chronic kidney disease, unspecified whether roasterman insulin use, unspecified whether stage 3a or 3b CKD ([facility] Primary [facility] Diagnosis Type 2 diabetes mellitus with hyperglycemia, without long-term current use of insulin ([facility]) [facility]* Diagnosis Social anxiety disorder Social phobia Vertigo Dizziness and giddiness documented in [facility]* Diagnosis Type 2 diabetes mellitus with stage 3 chronic kidney disease, unspecified whether prison insulin use, unspecified whether stage 3a or 3b CKD ([facility] Primary Type 2 diabetes mellitus with stage 3 chronic kidney disease, unspecified whether prison insulin use, unspecified whether stage 3a or 3b CKD ([facility] Primary [facility]* Diagnosis Type 2 diabetes mellitus with stage 3 chronic kidney disease, unspecified whether roasterman insulin use, unspecified whether stage 3a or 3b CKD ([facility] Primary Type 2 diabetes mellitus with hyperglycemia, with long-term current use of insulin ([facility]) [facility]* Diagnosis Social anxiety disorder Social phobia Overactive bladder Hypertonicity of bladder documented in [facility]* Diagnosis Current mild episode of major depressive disorder, unspecified whether recurrent Vertigo Dizziness and giddiness documented in this [facility]* Diagnosis Overactive bladder Hypertonicity of bladder [facility] N[facility]ative - Reported* Type Description Date Medical History Insomnia Medical History GERD (gastroesophageal reflux di sease) Medical History Depression Medical History Anxiety Medical History Hypothyroid Surgical History colon resection Surgical History colonoscopy Hospitalization History See Above [employer] Other Hispysq general Narrative - Reported* Type Description Date Medical History Insomnia Medical History GERD (gastroesophageal reflux di sease) Medical History Depression Medical History Anxiety Medical History Hypothyroid Medical History COLON CANCER 2016, CURRENTLY IN REMISSION Medical History PRE-DIABETES Medical History VERTIGO Surgical History colon resection Surgical History colonoscopy Surgical History CHOLECYSTECTOMY Hospitalization History See Above [employer] Other Hospital course Narrative No data available for this section [facility] Additional Instructions If your symptoms return/worsen or you develop any further concerns or symptoms please see your doctor or return to the emergency department immediately. As discussed please stop taking your lisinopril until you were told differently by your primary care provider or [facility] Work Phone: Hospital Discharge instructions Additional Instructions [facility]: Hospital Discharge instructionsAmbulatory Orders* Referral to Vascular Surgery Time Frame: 03/12/25, Location: None [facility] Work Phone: Hospital Discharge instructions Additional Instructions DISCHARGE INSTRUCTIONS- TAKING CARE OF YOUR FISTULA OR GRAFT A fistula or graft (both called an access) was created to provide an adequate blood flow for dialysis. Dialysis is a process to clean your blood of waste products and remove fluid. You need to take care of your fistula or graft to keep it working well and to watch for problems such as blood clots or infection. Please wash your access site prior to dialysis and wear clothing to dialysis that allows easy access to your graft or fistula. CARE OF YOUR ACCESS Check your fistula or graft at least every day. It should be buzzing . This is called a thrill and is caused by blood flowing through the fistula or graft. If blood clots form in your access this blood flow is blocked and you will not feel the buzz . Please check with your physician if you cannot Feel the Thrill . PRECAUTIONS: The goal is to avoid activities that might decrease the blood flow or damage your new access. 1. Tell others that you have a fistula or graft. -Do NOT let anyone take your blood pressure or draw blood work in your fistula or graft arm. -Do NOT let anyone put name bands on this arm. 2. Keep it clean. Scratching is off-limits. 3. DO NOT use your fistula or graft as a pillow. DO NOT sleep with your arm under your head. 4. Avoid carrying items like purses and packages on your arm. Use your other arm to carry heavy items. 5. Avoid wearing clothes with tight sleeves or stretch bands at the wrist. DO NOT wear a watch on this arm. 6. If you have access in your leg: -Avoid underwear with tight bands of the legs. -Avoid heavy pressure on the graft leg such as the weight of a child or heavy item pressing on the graft. WATCH FOR INFECTION -At times, a fistula or graft can become infected. Check your fistula or graft at least once a day for infection. SIGNS OF INFECTION ARE: -Redness or warmth in the skin area over the fistula or graft -Swelling and soreness of the skin -A fever of over 100 degrees F -Drainage from fistula or graft site SPECIAL CARE FOR THOSE WITH A FISTULA ONLY -Over time usually in 1-4 months the vein in your arm near the surgery site will enlarge or mature. The bigger the vein becomes, the easier it will be to use for dialysis. -Making a fist or squeezing a rubber ball or hand seafood harvester increases the blood flow to your fistula helping it to work better and mature faster. Try squeezing the ball during the commercials while watching TV. As a general guideline exercise can be started in 3 weeks after your fistula is placed. WHEN TO CALL YOUR DOCTOR -If you CANNOT feel the buzzing or hear it with a stethoscope, do not wait! CALL YOUR DOCTOR IMMEDIATELY SO IT CAN BE CHECKED. -If you have signs of infection, consult your physician. -Get to know your fistula or graft. Report any changes in how it sounds, feels, or looks! FOLLOW UP -Call your physician to schedule a post-operative appointment.[facility] Work Phone: Hospital Discharge instructions Additional Instructions Please return to emergency department for any new or worrisome symptoms including any chest pain, shortness of breath, vomiting, fever, numbness, weakness, tingling or difficulty urinating. Follow-up outpatient with your family physician closely within the next [address] [facility] Work Phone: InstructionsNot on filedocumented in this encounter [facility] filedocumented in this encounter [facility]ructionsNot on filedocumented in this encounter [facility]* Attachments The following attachments cannot be sent through Care Everywhere. * Body Mass Index, Adult (Syrian) documented in this encounterProMedica Health SystemInstructionsNot on file documented in this encounterProMedica Health SystemInstructions* Attachments The following attachments cannot be sent through Care Everywhere. * Hypothyroidism (underactive thyroid) (Syrian) documented in [facility] System[facility]ructionsNot on file documented in this encounterProMedica Health SystemInstructionsNot on file documented in this encounterProMedica Health SystemInstructionsNot on file documented in this encounterPro[facility] SystemInstructionsNot on file documented in this encounterPro[facility] SystemInstructions* Attachments The following attachments cannot be sent through Care Everywhere. * Checking your blood sugar at home (Syrian) documented in this encounterPro[facility] SystemInstructionsNot on file documented in this encounterProMedica Health SystemInstructionsNot on file documented in this [facility] SystemProgress note No data available for this section [facility] Author Jocelyn Garland [facility] February 11, 2024 3:06pm Note Date/Time February 11, 2024 3:0 6pm [facility] [address] [place] [address] Nephrology Progress Note Signed Patient: Guerrero Ramos MR#: [id number] : 1980 Acct:[id number] Age/Sex: 43 / F Adm Date: 4 Loc: 4N Room: 8S0493-3 Type: ADM IN Attending Dr: Steph Rollins MD Copies to: ~ Date of Service: 02/11/2024 Subjective Subjective Narrative: This is a 43-year female with a medical history of CKD, colon cancer s/p resection, multiple ventral hernias, HLD, CKD, DM and proteinuria who presented with intractable nausea and vomiting. In the emergency room patient had a CAT scan abdomen pelvis done which showed mild bowel distention of loop of small bowel concerning for partial obstruction. General surgery was consulted and recommended NG tube decompression. Patient was also found to have elevated serum creatinine 2.1 mg/dL. She was started on gentle fluid situation and renalfunction continues decline and serum creatinine went up 3.5 mg/dL. Patient has a known history of CKD and follows in our office for CKD care. She recently missed her appointment. 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 Nephrology is consulted for RIO on CKD management. Interim history Patient has been on IV fluid normal saline at 125 cc/h. Renal functions continue to improve with creatinine down to 2 mg/dL close to the baseline 1.8. Patient denies any shortness of breath. She stated that she is able to eat and drink. Abdominal pain has improved and she has no more nausea or vomiting. She started on clear liquid yesterday that was tolerated well. NG decompressionwas removed. Patient seen and examined bedside. She is feeling better today denies any abdominal pain or nausea vomiting. Denies any chest pain palpitation or shortness of breath. Exam Physical Exam Vital Signs: Temp Pulse Resp BP Pulse Ox O2 Del Method O2 Flow Rate 36.7 C 87 17 159/100 H 97 Room Air 2 02/11/24 10:02/11/24 10:02/11/24 03:11 02/11/24 10:02/11/24 10:02/11/24 08:10 02/11/24 08:00 Narrative: General: Appears comfortable and not in distress Heart: S1-S2, no rub Lung: Bilateral air entry, no wheezing or crackles Abdomen: Soft, positive bowel sounds Extremities: No edema, no cyanosis Head: Atraumatic, normocephalic Neck: No JVD or visible mass Skin: No rashes , warm to touch PROJECT ACCOUNTANT: Awake,Alert, following simple command Musculoskeletal: No swelling or limitation of movement of the large joints Psychiatric: Cooperative, normal mood and affect Objective Intake and Output I&O: Intake & Output 04/1202/09/24 02/10/24 02/11/24 23:59 23:59 23:59 23:59 Intake Total 2360 / 2360 2800 / 2800 1890 / 1890 Output Total 50 / 50 1750 / 1750 800 / 800 1650 / 1650 Balance -50 / -50 610 / 610 1999 / 1999 240 / 240 Weight 154.221 kg 156 kg 155.3 kg 155.9 kg Meds and Allergies Meds: Active Medications Dextrose (Dextrose 50% In Water 25 Gm/50 Ml Syringe) 0 gm IV-PUSH PRN PRN PRN Reason: Hypoglycemia Stop: 02/07/25 15:24 Glucose (Dextrose 40% Gel 15 Gm Tube) 0 gm PO PRN PRN PRN Reason: Hypoglycemia Stop: 02/07/25 15:24 Heparin Sodium (Porcine) (Heparin 5,000 Unit/Ml Vial) 5,000 unit SUBCUT Q8HR [facility] Stop: 02/07/25 21:59 Last Admin: 02/11/24 06:05 Dose: 5,000 unit Hydromorphone HCl (Hydromorphone 0.5 Mg/0.5 Ml Syringe) 0.5 mg IV-PUSH Q4H PRN PRN Reason: Pain Scale 8 - 10 Last Admin: 02/09/24 15:55 Dose: 0.5 mg Magnesium Sulfate (Magnesium Sulf 2gm-*Swfi*) 2 gm in 50 mls @ 25 mls/hr IV DAILY PRN PRN Reason: Magnesium Level < 1.7 Stop: 02/07/25 15:21 Ceftriaxone Sodium (Rocephin) 1 gm in 50 mls @ 100 mls/hr IV Q24H [facility] Last Admin: 02/11/24 13:17 Dose: Not Given Insulin Aspart (Insulin Aspart 300 Units/3 Ml Insuln.Pen) 0 units SUBCUT ACHS [facility]; Protocol Stop: 02/09/25 16:29 Last Admin: 02/11/24 13:38 Dose: Not Given Insulin Glargine (Insulin Glargine 300 Units/3 Ml Insuln.Pen) 15 units SUBCUT DAILY [facility] Stop: 02/08/25 08:59 Last Admin: 02/11/24 08:29 Dose: 15 units Ondansetron HCl (Ondansetron 4 Mg/2 Ml Vial) 4 mg IV-PUSH Q4H PRN PRN Reason: Nausea And Vomiting Stop: 02/07/25 15:16 Potassium Chloride (Potassium Chloride Er 20 Meq Tab.Er.Prt) 40 meq PO DAILY PRN PRN Reason: Hypokalemia Stop: 02/07/25 15:21 Sodium Chloride (Sodium Chloride 0.9 % 10 Ml Syringe) 0 ml IV-PUSH PRN PRN PRN Reason: Flush Stop: 02/07/25 09:57 Last Admin: 02/09/24 15:56 Dose: 10 ml Sodium Chloride (Sodium Chloride 0.9 % 10 Ml Syringe) 0 ml IV-PUSH QSHIFT FANTASMA Stop: 02/07/25 21:59 Last Admin: 02/11/24 06:07 Dose: Not Given Allergies Penicillins Allergy (Unknown, Verified 02/08/24 10:19) Hives Results - Nephrology Labs 02/11/24 06:47 02/11/24 06:47 Labs: 02/11/24 06:47 BUN 20 Creatinine 2.00 H D Albumin 3.3 L Radiology Impressions Impressions - last 24 hours: Any impression(s) listed above is documentation that was entered by the reading physician into a diagnostic report(s) for Guerrero Ramos. I have reviewed the report(s) and am incorporating any findings in the treatment plan of this patient where applicable. A&P - Nephrology Assessment/Plan (1) Acute kidney injury superimposed on chronic kidney disease: Assessment/Problem Details: She has acute kidney injury likely due to hypovolemia in setting of bowel obstruction. She has no evidence of obstructive uropathy on CAT scan (2) CKD (chronic kidney disease) stage 3, GFR 30-59 ml/min: Assessment/Problem Details: She has a CKD due to the diabetic nephropathy and hypertensive nephrosclerosis with baseline serum creatinine 1.8 mg/dL. (3) Bowel obstruction: Assessment/Problem Details: Patient has a bowel obstruction and currently on NG decompression. General surgery has been following the patient. (4) Type 2 diabetes mellitus with diabetic chronic kidney disease: Assessment/Problem Details: She has insulin-dependent type 2 diabetes mellitus. She takes insulin glargine at home (5) Proteinuria: Assessment/Problem Details: She has a proteinuria likely due to diabetic kidney disease. Plan * Renal function continues to improve close to the baseline. Oral feeding was started and she is able to tolerate fluids. Will discontinue IV fluid. * Insulin is being adjusted by the hospitalist team. Glucose at target 147 mg/dL. * Monitor daily intake and output and renal adjust medications as indicated. Patient stable from renal point to be discharged at the time. She can follow- upin renal clinic with follow-up renal panel and CBC in 2 to 3 weeks. Documented By: Jocelyn Garland MD 02/11/24 1501 Signed By: <Electronically signed by MD Jocelyn Garland> 02/11/24 1506 [facility] Work Phone: Reason for referral (narrative)* Diagnostic Procedure Only (Routine) - New Request Specialty Diagnoses / Procedures Referred By Contac t Referred To Contact NEUROLOGICAL ALPINE Diagnoses Snoring Procedures HOME SLEEP APNEA TEST (HSAT) SLEEP STD AIRFLOW HRT RATE&O2 SAT EFFORT Jodi Gerardo APRN.CNP [address] [place] [address] [place] [address] Referral ID Status Reason Start Date Expiration Date Visits Requested Visits Authorized [id number] New Request Auto-Generat ed Referral 05/26/2024 05/26/2025 1 1 [facility] for visit NarrativeGastroenterology Referral [facility] Other Summary Purpose Family History No Family History Records Found Relationship Condition Age at Onset Recorded Date/T kevin father Malignant neoplasm Unknown Not Specified Hypertension Unknown Relationship Condition Age at Onset Recorded Date/T kevin father Malignant neoplasm Unknown mother Hypertension Unknown Relationship Condition Age at Onset Recorded Date/T kevin mother Hypertension Unknown father Malignant neoplasm of throat Unknown Malignant neoplasm of colon Unknown Advance Directives No Advanced Directives Records Found Advance Directive Response Recorded Date/ Time Advance Directives No August 6:49pm Advance Directive Response Recorded Date/ Time Advance Directives No August 5:49pm Chief Complaint and Reason for Visit Chief Complaint S69.91XA Chief Complaint S69.91XA constipation , stomach and back pain Chief Complaint shakey Chief Complaint vomitting nauseous p ain on lt leg Chief Complaint vomitting nauseous p ain on lt leg vomitting nauseous pain on lt leg vomitting nauseous pain on lt leg Reason for Visit Acute kidney injury superimposed on chronic kidney disease BMI 60.0-69.9, adult Bowel obstruction CKD (chronic kidney disease) stage 3, GFR 30-59 ml/min History of colon cancer Partial small bowel obstruction Proteinuria Type 2 diabetes mellitus with diabetic chronic kidney disease Chief Complaint vomitting nauseous p ain on lt leg vomitting nauseous pain on lt leg vomitting nauseous pain on lt leg RENAL 6 MONTH F/U Reason for Visit Acute kidney injury superimposed on chronic kidney disease BMI 60.0-69.9, adult Bowel obstruction CKD (chronic kidney disease) stage 3, GFR 30-59 ml/min History of colon cancer Partial small bowel obstruction Proteinuria Type 2 diabetes mellitus with diabetic chronic kidney disease Anemia of renal disease CKD (chronic kidney disease) stage 3, GFR 30-59 ml/min Hyperlipidemia Nephrolithiasis Proteinuria Secondary hyperparathyroidism Type 2 diabetes mellitus with diabetic chronic kidney disease Chief Complaint vomitting nauseous p ain on lt leg RENAL 6 MONTH F/U Abd Pain into Back Reason for Visit Acute kidney injury superimposed on chronic kidney disease Partial small bowel obstruction Anemia of renal disease Hyperlipidemia [id number] Nephrolithiasis Secondary hyperparathyroidism Chief Complaint Abd Pain into Back abd pain, nausea, back pain Reason for Visit RIO (acute kidney in jury) Pyelonephritis Chief Complaint Abd Pain into Back abd pain, nausea, back pain abd pain, nausea, back pain Reason for Visit Acute kidney injury superimposed on chronic kidney disease RIO (acute kidney injury) BMI 50.0-59.9, adult CKD (chronic kidney disease) stage 3, GFR 30-59 ml/min Dehydration GERD (gastroesophageal reflux disease) [id number] Pyelonephritis Type 2 diabetes mellitus Type 2 diabetes mellitus with diabetic chronic kidney disease UTI (urinary tract infection), bacterial Chief Complaint Abd Pain into Back abd pain, nausea, back pain abd pain, nausea, back pain RENAL 4 MONTH F/U Reason for Visit Acute kidney injury superimposed on chronic kidney disease RIO (acute kidney injury) BMI 50.0-59.9, adult CKD (chronic kidney disease) stage 3, GFR 30-59 ml/min Dehydration GERD (gastroesophageal reflux disease) [id number] Pyelonephritis Type 2 diabetes mellitus Type 2 diabetes mellitus with diabetic chronic kidney disease UTI (urinary tract infection), bacterial Anemia of renal disease CKD (chronic kidney disease) stage 3, GFR 30-59 ml/min Hyperlipidemia [id number] Secondary hyperparathyroidism Type 2 diabetes mellitus with diabetic chronic kidney disease Chief Complaint Admit Date RENAL 4 MONTH F/U June 19, 2024 9: 58am back pain September 15, 2024 9:51pm Reason for Visit Admit Date Anemia of renal disease June 19 9:58am Hyperlipidemia June 19, 2024 9: 58am Secondary hyperparathyroidism May 9:58am Nephrolithiasis June 19, 2024 9: 58am Proteinuria June 19, 2024 9: 58am CKD (chronic kidney disease) stage 3, GF R 30-59 ml/min June 19, 2024 9:58am Hypertensive chronic kidney disease with stage 1 through stage 4 chronic ki June 19, 2024 9:58am Type 2 diabetes mellitus wit h diabetic chronic kidney disease June 19, 2024 9:58am Chief Complaint Admit Date dizzy, back pain February 14, 2025 7:2 7pm Chief Complaint Admit Date dizzy, back pain February 14, 2025 7:2 7pm RENAL 4 MONTH F/U March 12, 2025 12:40 pm Reason for Visit Admit Date Anemia of renal disease March 12, 2025 1 2:40pm CKD (chronic kidney disease) stage 4, GF R 15-29 ml/min March 12, 2025 12:40pm Hyperlipidemia March 12, 2025 12:40 pm Secondary hyperparathyroidism March 12, 2025 12:40pm Hypertensive chronic kidney disease with stage 1 through stage 4 chronic ki March 12, 2025 12:40pm Nephrolithiasis March 12, 2025 12:40 pm Proteinuria March 12, 2025 12:40 pm Type 2 diabetes mellitus with diabetic c hronic kidney disease March 12, 2025 12:40pm Chief Complaint Admit Date dizzy, back pain February 14, 2025 7:2 7pm RENAL 4 MONTH F/U March 12, 2025 12:40 pm N18.4 March 26, 2025 8:18a m Chief Complaint Admit Date dizzy, back pain February 14, 2025 7:2 7pm RENAL 4 MONTH F/U March 12, 2025 12:40 pm N18.4 March 26, 2025 8:18a m ref by Dr. Melgar for port placement April 06, 2025 2:03pm Chief Complaint Admit Date dizzy, back pain February 14, 2025 7:2 7pm RENAL 4 MONTH F/U March 12, 2025 12:40 pm N18.4 March 26, 2025 8:18a m ref by Dr. Melgar for port placement April 06, 2025 2:03pm ESRD April 15, 2025 11:0 2am ESRD April 29, 2025 7:42a m Reason for Visit Admit Date Anemia of renal disease March 12, 2025 1 2:40pm CKD (chronic kidney disease) stage 4, GF R 15-29 ml/min March 12, 2025 12:40pm Hyperlipidemia March 12, 2025 12:40 pm Secondary hyperparathyroidism March 12, 2025 12:40pm Hypertensive chronic kidney disease with stage 1 through stage 4 chronic ki March 12, 2025 12:40pm Nephrolithiasis March 12, 2025 12:40 pm Proteinuria March 12, 2025 12:40 pm Type 2 diabetes mellitus with diabetic c hronic kidney disease March 12, 2025 12:40pm CKD (chronic kidney disease) stage 4, GF R 15-29 ml/min April 06, 2025 2:03pm Chief Complaint Admit Date RENAL 4 MONTH F/U March 12, 2025 12:40 pm N18.4 March 26, 2025 8:18a m ref by Dr. Melgar for port placement April 06, 2025 2:03pm ESRD April 15, 2025 11:0 2am ESRD April 29, 2025 7:42a m F/u Fistula creation May 19, 2025 10: 20am Chief Complaint Admit Date RENAL 4 MONTH F/U March 12, 2025 12:40 pm N18.4 March 26, 2025 8:18a m ref by Dr. Melgar for port placement April 06, 2025 2:03pm ESRD April 15, 2025 11:0 2am ESRD April 29, 2025 7:42a m F/u Fistula creation May 19, 2025 10: 20am back pain May 29, 2025 11: 56am Reason for Visit Admit Date Anemia of renal disease March 12, 2025 1 2:40pm CKD (chronic kidney disease) stage 4, GF R 15-29 ml/min March 12, 2025 12:40pm Hyperlipidemia March 12, 2025 12:40 pm Secondary hyperparathyroidism March 12, 2025 12:40pm Hypertensive chronic kidney disease with stage 1 through stage 4 chronic ki March 12, 2025 12:40pm Nephrolithiasis March 12, 2025 12:40 pm Proteinuria March 12, 2025 12:40 pm Type 2 diabetes mellitus with diabetic c hronic kidney disease March 12, 2025 12:40pm CKD (chronic kidney disease) stage 4, GF R 15-29 ml/min April 06, 2025 2:03pm S/P arteriovenous (AV) fistula creation May 19, 2025 10:20am Reason for Referral Specialty Diagnoses / Procedures Referred By Salo araujo Referred To Contact Diagnoses Preoperative examination Incisional hernia, without obstruction or gangrene Procedures REFER TO [facility] - PREOPERATIVE OPTIMIZATION OFFICE/OUTPATIENT [facility] 60 MINUTES Miguel Ángel Garza, HOSPICE DIRECTOR.TAN ROOM SUPERVISOR [address] [phone] Referral ID Status Reason Start Date Expiration Date Visits Requested Visits Authorized [id number] Pending Review PCP Requested Referral 07/08/2024 07/08/2025 1 1 Specialty Diagnoses / Procedures Referred By Salo araujo Referred [facility] Diagnoses Preoperative examination Incisional hernia, without obstruction or gangrene Procedures ECG COMPLETE ECG ROUTINE ECG W/LEAST 12 LDS W/I&R Miguel Ángel Garza, HOSPICE DIRECTOR.TAN ROOM SUPERVISOR [address] [phone] [facility] [address] [place] [address] Referral ID Status Reason Start Date Expiration Date Visits Requested Visits Authorized [id number] New Request Auto-Generat ed Referral 07/08/2024 07/08/2025 1 1 Specialty Diagnoses / Procedures Referred By Salo araujo Referred To Contact Diagnoses Preoperative examination Incisional hernia, without obstruction or gangrene Procedures CONSULT TO [facility] OFFICE/OUTPATIENT NEW HIGH MDM 60 MINUTES Emma Garzaly, HOSPICE DIRECTOR.TAN ROOM SUPERVISOR [address] [place] [address] Referral ID Status Reason Start Date Expiration Date Visits Requested Visits Authorized [id number] Pending Review PCP Requested Referral 07/08/2024 07/08/2025 1 1 Specialty Diagnoses / Procedures Referred By Contac t Referred To Contact Diagnoses Incisional hernia, without obstruction or gangrene Procedures CONSULT [facility] OFFICE/OUTPATIENT NEW [facility] MDM 60 MINUTES Jeramie Franco MD [address] [place] [address] Referral ID Status Reason Start Date Expiration Date Visits Requested Visits Authorized [id number] Pending Review PCP Requested Referral 04/10/2024 04/10/2025 1 1 Reason Chronic constipation , history of colon cancer Diagnosis 1 Constipation (K59.00 ) Referral Organization [facility] Referring Provider First Name Jocelyn Referring Provider Last Name Gill Referring Provider Specialty Nephrology Referred Organization [facility] Referred Provider Seb Tran Referred Address [address],[address] Referred Provider Specialty Gastroentero logy Referral Priority Routine Additional Source Comments INFORMATION SOURCE (unrecogn ized section and content) DATE CREATED AUTHOR 04/06/2019 [facility] DATE CREATED AUTHOR AUTHOR'S ORGANIZ ATION 04/07/2022 [facility] Specialist DATE CREATED AUTHOR AUTHOR'S ORGANIZ ATION 03/11/2023 [facility] DATE CREATED AUTHOR AUTHOR'S ORGANIZ ATION 08/27/2024 [facility] DATE CREATED AUTHOR AUTHOR'S ORGANIZ ATION 09/16/2024 [facility] DATE CREATED AUTHOR AUTHOR'S ORGANIZ ATION 11/12/2024 [facility] DATE CREATED AUTHOR AUTHOR'S ORGANIZ ATION 11/14/2024 [facility] d[facility] Specialists [facility] DATE CREATED AUTHOR AUTHOR'S ORGANIZ ATION 04/02/2025 [facility] DATE CREATED AUTHOR AUTHOR'S ORGANIZ ATION 04/11/2025 [facility] DATE CREATED AUTHOR AUTHOR'S ORGANIZ ATION 05/31/2025 [facility] DATE CREATED AUTHOR AUTHOR'S ORGANIZ ATION 06/08/2025 [facility] Care Team (unrecognized sect ion and content) Team Status: Active Member Role Status Dates Lily Rosales TOY ELECTRIC TRAIN REPAIRER-C Primary Care Provider Active Team Status: Active Member Role Status Dates Lily Rosales TOY ELECTRIC TRAIN REPAIRER-C Primary Care Provider Active Start: March 04, 2025 Allison Melgar MD Attending Provider Active Start : March 04, 2025 Team Status: Inactive Member Role Status Dates Lily Rosales TOY ELECTRIC TRAIN REPAIRER-C Primary Care Provider Active Start: March 12, 2025 End: March 12, 2025 Allison Melgar MD Attending Provider Active Start : March 12, 2025 End: March 12, 2025 Team Status: Inactive Member Role Status Dates Lily Rosales TOY ELECTRIC TRAIN REPAIRER-C Primary Care Provider Active Start: March 26, 2025 End: March 26, 2025 Allison Melgar MD Attending Provider Active Start : March 26, 2025 End: March 26, 2025 Team Status: Inactive Member Role Status Dates Lily Rosales TOY ELECTRIC TRAIN REPAIRER-C Primary Care Provider Active Start: April 06, 2025 End: April 06, 2025 Vega Neville MD Attending Provider Active S tart: April 06, 2025 End: April 06, 2025 Team Status: Inactive Member Role Status Dates Lily Rosales TOY ELECTRIC TRAIN REPAIRER-C Primary Care Provider Active Start: April 15, 2025 End: April 15, 2025 Vega Neville MD Attending Provider Active S tart: April 15, 2025 End: April 15, 2025 Team Status: Active Member Role Status Dates Lily Rosales TOY ELECTRIC TRAIN REPAIRER-C Primary Care Provider Active Start: April 29, 2025 Vega Neville MD Attending Provider Active S tart: April 29, 2025 Vega Neville MD Other Provider Active Start : April 29, 2025 Team Status: Inactive Member Role Status Dates Lily Rosales TOY ELECTRIC TRAIN REPAIRER-C Primary Care Provider Active Start: May 19, 2025 End: May 19, 2025 Vega Neville MD Attending Provider Active S tart: May 19, 2025 End: May 19, 2025 Team Status: Inactive Member Role Status Dates Jayesh Escalante II MD Primary Care Provider Active MING John Attending Provider Active Team Status: Active Member Role Status Dates Jayesh Escalante II MD Primary Care Provider Active Team Status: Inactive Member Role Status Dates Jayesh Escalante II MD Primary Care Provider Active Ham Castano DO Emergency Provider Active Team Status: Inactive Member Role Status Dates Jayesh Escalante II MD Primary Care Provider Active MARGUERITE KhanC Emergency Provider Active Inside Sales Advisor Relationship Specialty Start Date End Date Jayesh Escalante MD [address] [place] [address] PCP - General Internal Medicine 03/13/23 Inside Sales Advisor Relationship Specialty Start Date End Date Jayesh Escalante MD [address] [place] [address] PCP - General Internal Medicine 03/13/23 Team Status: Active Member Role Status Dates NON STAFF Primary Care Provider Active Team Status: Active Member Role Status Dates Jorge Doshi DO Emergency Provider Active Sta rt: February 08, 2024 NON STAFF Primary Care Provider Active Start: February 08, 2024 Jayro Bucio MD Admit Provide r, Attending Provider Active Start: February 08, 2024 Team Status: Inactive Member Role Status Dates Jorge Doshi DO Emergency Provider Active Sta rt: February 08, 2024 End: February 11, 2024 Jayro Bucio MD Admit Provider Active Start: February 08, 2024 End: February 11, 2024 Bhavin Calderón DO Other Provider Active Sta rt: February 08, 2024 End: February 11, 2024 Dawood Clemente MD Other Provider Active Start: February 08, 2024 End: February 11, 2024 Charbel Patel DO Other Provider Active Start: Ap ril 2023 End: February 11, 2024 Jocelyn Garland MD Other Provider Active Start: A pril 2023 End: February 11, 2024 Paula Vargas NP-C Other Provider Active Start: February 08, 2024 End: February 11, 2024 Allison Melgar MD Other Provider Active Start: Ap ril 2023 End: February 11, 2024 Hector Cornejo MD Other Provider Active Start: A pril 2023 End: February 11, 2024 Steph Rollins MD Attending Provider Active Start: February 08, 2024 End: February 11, 2024 Lily Rosales NP-C Primary Care Provider Active Start: February 08, 2024 End: February 11, 2024 Team Status: Active Member Role Status Dates Jorge Doshi DO Emergency Provider Active Sta rt: February 08, 2024 NON STAFF Primary Care Provider Active Start: February 08, 2024 Jayro Bucio MD Admit Provide r, Attending Provider, Other Provider Active Start: February 08, 2024 Bhavin Calderón DO Other Provider Active Sta rt: February 08, 2024 Dawood Clemente MD Other Provider Active Start: February 08, 2024 Charbel Patel DO Other Provider Active Start: Ap ril 2023 Team Status: Active Member Role Status Dates Jorge Doshi DO Emergency Provider Active Sta rt: February 09, 2024 NON STAFF Primary Care Provider Active Start: February 09, 2024 Jayro Bucio MD Admit Provide r, Other Provider Active Start: February 09, 2024 Bhavin Calderón DO Other Provider Active Sta rt: February 09, 2024 Dawood Clemente MD Other Provider Active Start: February 09, 2024 Charbel Patel DO Other Provider Active Start: Ap ril 2023 Jocelyn Garland MD Other Provider Active Start: A pril 2023 NANCY Hunter Other Provider Active Start: February 09, 2024 Allison Melgar MD Attending Provider, Other Provider Active Start: February 09, 2024 Hector Cornejo MD Other Provider Active Start: A pril 2023 Team Status: Inactive Member Role Status Dates Allison Melgar MD Attending Provider Active Start : February 14, 2024 End: February 14, 2024 Lily Rosales NP-C Primary Care Provider Active Start: February 14, 2024 End: February 14, 2024 Inside Sales Advisor Relationship Specialty Start Date End Date Dawood Clemente [address] [facility] [address] [place] [address] Referring General Surgery 03/07/24 Team Status: Inactive Member Role Status Dates Lily Rosales TOY ELECTRIC TRAIN REPAIRER-C Primary Care Provider Active Start: May 10, 2024 End: May 11, 2024 Cem De Souza DO Emergency Provider Active St art: May 10, 2024 End: May 11, 2024 Inside Sales Advisor Relationship Specialty Start Date End Date Dawood Clemente [address] [facility] [address] [place] [address] Referring General Surgery 03/07/24 Team Status: Active Member Role Status Dates Lily Rosales NP-C Primary Care Provider Active Start: June 12, 2024 Marcelle Simmons MD Emergency Provider Active Start: June 12, 2024 Jayro Bucio MD Admit Provide r, Attending Provider Active Start: June 12, 2024 Team Status: Inactive Member Role Status Dates Lily Rosales NP-C Primary Care Provider Active Start: June 14, 2024 End: June 16, 2024 Marcelle Simmons MD Emergency Provider Active Start: June 14, 2024 End: June 16, 2024 Jayro Bucio MD Admit Provider Active Start: June 14, 2024 End: June 16, 2024 Allison Melgar MD Other Provider Active Start: [facility] 2023 End: June 16, 2024 Dontae Hernandez DO Attending Provider Active Start: June 14, 2024 End: June 16, 2024 Team Status: Active Member Role Status Dates Lily Rosales NP-C Primary Care Provider Active Start: June 14, 2024 Marcelle Simmons MD Emergency Provider Active Start: June 14, 2024 Jayro Bucio MD Admit Provider Active Start: June 14, 2024 Promise Nova MD Other Provider Active Start: June 14, 2024 Allison Melgar MD Attending Provider, Other Provider Active Start: June 14, 2024 Team Status: Inactive Member Role Status Dates NANCY Parsons Primary Care Provider Active Start: June 19, 2024 End: June 19, 2024 Allison Melgar MD Attending Provider Active Start : June 19, 2024 End: June 19, 2024 Inside Sales Advisor Relationship Specialty Start Date End Date Dawood Clemente [address] [place] [address] Referring General Surgery 03/07/24 Inside Sales Advisor Relationship Specialty Start Date End Date Dawood Clemente [address] [place] [address] Referring General Surgery 03/07/24 Inside Sales Advisor Relationship Specialty Start Date End Date Dawood Clemente [address] [place] [address] [address] [place] [address] Referring General Surgery 03/07/24 Inside Sales Advisor Relationship Specialty Start Date End Date Dawood Clemente [address] [facility] [address] [place] [address] Referring General Surgery 03/07/24 Inside Sales Advisor Relationship Specialty Start Date End Date Dawood Clemente [address] [facility] [address] [place] [address] Referring General Surgery 03/07/24 Inside Sales Advisor Relationship Specialty Start Date End Date Lily Rosales APRN-TAN ROOM SUPERVISOR [address] [place] [address] PCP - General Family Medicine 01/01/24 Team Status: Inactive Member Role Status Dates Lily J Rosales , TOY ELECTRIC TRAIN REPAIRER-C Primary Care Provider Active Start: September 15, 2024 End: September 16, 2024 Marcelle Simmons MD Emergency Provider Active Start: September 15, 2024 End: September 16, 2024 Inside Sales Advisor Relationship Specialty Start Date End Date Dawood Clemente [address] [facility] [address] [place] [address] Referring General Surgery 03/07/24 Inside Sales Advisor Relationship Specialty Start Date End Date Lily Rosales APRN-TAN ROOM SUPERVISOR [address] [place] [address] PCP - General Family Medicine 01/01/24 Inside Sales Advisor Relationship Specialty Start Date End Date Lily Rosales CRNP [address] [place] [address] Referring Physician Nurse Practitioner 11/11/24 Inside Sales Advisor Relationship Specialty Start Date End Date Lily Rosales APRN-TAN ROOM SUPERVISOR [address] [place] [address] PCP - General Family Medicine 01/01/24 Inside Sales Advisor Relationship Specialty Start Date End Date Lily Rosales APRN-TAN ROOM SUPERVISOR [address] [place] [address] PCP - General Family Medicine 01/01/24 Inside Sales Advisor Relationship Specialty Start Date End Date Lily Rosales APRN-TAN ROOM SUPERVISOR [address] [place] [address] PCP - General Family Medicine 01/01/24 Inside Sales Advisor Relationship Specialty Start Date End Date Lily Rosales APRN-[facility] [address] [place] [address] PCP - General Family Medicine 01/01/24 Inside Sales Advisor Relationship Specialty Start Date End Date Lily Rosales APRN-[facility] [address] [place] [address] PCP - General Family Medicine 01/01/24 Inside Sales Advisor Relationship Specialty Start Date End Date Dawood Clemente [address] [facility] [address] [place] [address] Referring General Surgery 03/07/24 Inside Sales Advisor Relationship Specialty Start Date End Date Dawood Clemente [address] [facility] [address] [place] [address] Referring General Surgery 03/07/24 Inside Sales Advisor Relationship Specialty Start Date End Date Lily Rosales APRN-[facility] [address] [place] [address] PCP - General Family Medicine 01/01/24 Inside Sales Advisor Relationship Specialty Start Date End Date Lily Rosales APRN-[facility] [address] [place] [address] PCP - General Family Medicine 01/01/24 Inside Sales Advisor Relationship Specialty Start Date End Date Dawood Clemente [address] [facility] [address] [place] [address] Referring General Surgery 03/07/24 Inside Sales Advisor Relationship Specialty Start Date End Date Lily Rosales APRN-[facility] [address] [place] [address] PCP - General Family Medicine 01/01/24 Inside Sales Advisor Relationship Specialty Start Date End Date Dawood Clemente [address] [facility] [address] [place] [address] Referring General Surgery 03/07/24 Team Status: Inactive Member Role Status Dates Lily Rosales NP-C Primary Care Provider Active Start: February 14, 2025 End: February 15, 2025 Ernie Herrera MD Emergency Provider Active St art: February 14, 2025 End: February 15, 2025 Inside Sales Advisor Relationship Specialty Start Date End Date Dawood Clemente [address] [facility] [address] [place] [address] Referring General Surgery 03/07/24 Inside Sales Advisor Relationship Specialty Start Date End Date Lily Rosales APRN-TAN ROOM SUPERVISOR [address] [place] [address] PCP - General Family Medicine 01/01/24 Inside Sales Advisor Relationship Specialty Start Date End Date Lily Rosales APRN-TAN ROOM SUPERVISOR [address] [place] [address] PCP - General Family Medicine 01/01/24 04/23/25 Inside Sales Advisor Relationship Specialty Start Date End Date Dawood Clemente [address] [facility] [address] [place] [address] Referring General Surgery 03/07/24 [place] [address] [place] [address] [place] [address] Referring Internal Medicine 04/06/25 Inside Sales Advisor Relationship Specialty Start Date End Date Lily [facility] [address] [place] [address] PCP - General Family Medicine 01/01/24 04/23/25 Inside Sales Advisor Relationship Specialty Start Date End Date Lily Rosales [facility] [address] [place] [address] PCP - General Family Medicine 01/01/24 04/23/25 Inside Sales Advisor Relationship Specialty Start Date End Date Amina Holcomb [facility] [address] [place] [address] PCP - General Family Medicine 04/24/25 Inside Sales Advisor Relationship Specialty Start Date End Date Amina Holcomb [facility] [address] [place] [address] PCP - General Family Medicine 04/24/25 Inside Sales Advisor Relationship Specialty Start Date End Date Amina Holcomb [facility] [address] [place] [address] PCP - General Family Medicine 04/24/25 Team Status: Inactive Member Role Status Dates Lily Rosales , TOY ELECTRIC TRAIN REPAIRER-C Primary Care Provider Active Start: May 29, 2025 End: May 29, 2025 Marcelle Simmons MD Emergency Provider Active Start: May 29, 2025 End: May 29, 2025 REASON FOR VISIT (unrecogniz ed section and content) Reason Comments Consult Specialty Diagnoses / Procedures Referred By Contac t Referred To Contact General Surgery / GENERAL SURGERY Diagnoses Other and unspecified ventral hernia with obstruction, without gangrene Incisional hernia without obstruction or gangrene k43.6 Ventral hernia with obstruction and without gangrene, K43.2 Incisional hernia, without obstruction or gangrene Procedures OFFICE/OUTPATIENT NEW MODERATE MDM 45 MINUTES NEW DDI PATIENT Self Jeramie Franco MD [address] [place] [address] Referral ID Status Reason Start Date Expiration Date Visits Re quested Visits Authorized [id number] Closed 04/10/2024 10/28/2024 1 1 Reason Comments Obesity New Patient Specialty Diagnoses / Procedures Referred By Contac t Referred To Contact GENERAL SURGERY Diagnoses K43.2 (ICD-10-CM) - Incisional hernia, without obstruction or gangrene Procedures FOLLOW-UP E-ASSESSMENT Deanne Denis, HOSPICE DIRECTOR.TAN ROOM SUPERVISOR [address] [place] [address] [facility] [address] [place] [address] Referral ID Status Reason Start Date Expiration Date V isits Requested Visits Authorized [id number] Closed OON/Self Pay Override 05/20/2024 10/28/2024 1 1 Reason Comments Established Patient Specialty Diagnoses / Procedures Referred By Contac t Referred To Contact [facility] Diagnoses Incisional hernia, without obstruction or gangrene Procedures ESTABLISHED DDI PATIENT IN OFFICE VISIT Self Jeramie Franco MD [address] [phone] Referral ID Status Reason Start Date Expiration Date V isits Requested Visits Authorized [id number] Closed Financial Clearance Required - OON Payor OON/Self Pay Override 07/07/2024 10/28/2024 1 1 Reason Comments 03.18.25 Cure Open Complex AWR 5 h ours los 4 Reason Comments Weight Management Specialty Diagnoses / Procedures Referred By Contac t Referred To Contact GENERAL SURGERY Diagnoses k43.6 Ventral hernia with obstruction and without gangrene, K43.2 Incisional hernia, without obstruction or gangrene Procedures Est F/up Virtual or Office Weight Self Miguel Ángel Garza, HOSPICE DIRECTOR.TAN ROOM SUPERVISOR [address] [place], [place] [id number] Referral ID Status Reason Start Date Expiration Date V isits Requested Visits Authorized [id number] Closed Financial Clearance Required - OON Payor OON/Self Pay Override 07/30/2024 10/28/2024 1 1 Specialty Diagnoses / Procedures Referred By Salo araujo Referred To Contact GENERAL SURGERY Diagnoses Ventral Hernia Procedures Virtual or Est Office Visit Jeramie Franco MD [address] [phone] Miguel Ángel Garza, HOSPICE DIRECTOR.TAN ROOM SUPERVISOR [address] [phone] Referral ID Status Reason Start Date Expiration Date V isits Requested Visits Authorized [id number] Closed Financial Clearance Required - OON Payor OON/Self Pay Override 09/03/2024 10/28/2024 1 1 Reason Comments Med Refill Reason Comments Foot Pain Guerrero Ramos 44yo, New Patient presents with her Mother. Patient is type 2 diabetic and states burning and tingling in her right foot with weightbearing. Taking Tylenol prn. Started about 2 weeks ago. Patient relates vertigo problems since a teenager.BS 112 A1C 5.8 PCP Lily Rosales 09/22/24. SS11.5. Specialty Diagnoses / Procedures Referred By Salo araujo Referred To Contact GENERAL SURGERY Diagnoses Ventral hernia with obstruction and without gangrene k43.6 Ventral hernia with obstruction and without gangrene, K43.2 Incisional hernia, without obstruction or gangrene Procedures Virtual Visit Miguel Ángel Hopson, HOSPICE DIRECTOR.TAN ROOM SUPERVISOR [address] [phone] [facility] [address] [phone] Referral ID Status Reason Start Date Expiration Date Visits Requested Visits Authorized [id number] Closed OON/Self Pay Override OON Notification Letter Patient Cleared - Admin/Director Of Design/D irector advise to proceed or did not respond 01/08/2025 1 1 Reason Onset Date Comments Med Refill 11/09/2024 Reason Comments Foot Pain Rt ft pain- poss art hritis Reason Comments Weight Check Reason Onset Date Comments Med Refill 12/09/2024 Reason Comments Diabetes Weight Check Reason Onset Date Comments Med Refill 01/08/2025 Reason Onset Date Comments Med Refill 01/19/2025 Reason Onset Date Comments Med Refill 01/22/2025 Reason Comments BP / weight loss Reason Onset Date Comments Med Refill 02/08/2025 Reason Comments Follow Up Reason Comments Abdominal Pain X3 days Reason Comments weight check Reason Onset Date Comments Med Refill 03/16/2025 Reason Comments Diabetes weight Reason Comments Referral - Kidney Txp Reason Onset Date Comments Med Refill 04/10/2025 Reason Onset Date Comments Med Refill 04/01/2025 Goals (unrecognized section and content) Goals may be documented in a n alternate section Source Comments (unrecognize d section and content) In the event this informatio n is protected by the Federal Confidentiality of Alcohol and Drug Abuse Patient Records regulations: The Federal rules restrict any use of the information to criminally investigate or prosecute any alcohol or drug abuse patient.[facility] the event this information is protected by the Federal Confidentiality of Alcohol and Drug Abuse Patient Records regulations: The Federal rules restrict any use of the information to criminally investigate or prosecute any alcohol or drug abuse patient.[facility] HospitalIn the event this information is protected by the Federal Confidentiality of Alcohol and Drug Abuse Patient Records regulations: The Federal rules restrict any use of the information to criminally investigate or prosecute any alcohol or drug abuse patient.[facility] HospitalIn the event this information is protected by the Federal Confidentiality of Alcohol and Drug Abuse Patient Records regulations: The Federal rules restrict any use of the information to criminally investigate or prosecute any alcohol or drug abuse patient.[facility] HospitalIn the event this information is protected by the Federal Confidentiality of Alcohol and Drug Abuse Patient Records regulations: The Federal rules restrict any use of the information to criminally investigate or prosecute any alcohol or drug abuse patient.[facility] HospitalIn the event this information is protected by the Federal Confidentiality of Alcohol and Drug Abuse Patient Records regulations: The Federal rules restrict any use of the information to criminally investigate or prosecute any alcohol or drug abuse patient.[facility] HospitalIn the event this information is protected by the Federal Confidentiality of Alcohol and Drug Abuse Patient Records regulations: The Federal rules restrict any use of the information to criminally investigate or prosecute any alcohol or drug abuse patient.[facility] HospitalIn the event this information is protected by the Federal Confidentiality of Alcohol and Drug Abuse Patient Records regulations: The Federal rules restrict any use of the information to criminally investigate or prosecute any alcohol or drug abuse patient.[facility] HospitalIn the event this information is protected by the Federal Confidentiality of Alcohol and Drug Abuse Patient Records regulations: The Federal rules restrict any use of the information to criminally investigate or prosecute any alcohol or drug abuse patient.[facility] HospitalIn the event this information is protected by the Federal Confidentiality of Alcohol and Drug Abuse Patient Records regulations: The Federal rules restrict any use of the information to criminally investigate or prosecute any alcohol or drug abuse patient.[facility] HospitalIn the event this information is protected by the Federal Confidentiality of Alcohol and Drug Abuse Patient Records regulations: The Federal rules restrict any use of the information to criminally investigate or prosecute any alcohol or drug abuse patient.[facility] HospitalIn the event this information is protected by the Federal Confidentiality of Alcohol and Drug Abuse Patient Records regulations: The Federal rules restrict any use of the information to criminally investigate or prosecute any alcohol or drug abuse patient.[facility] HospitalIn the event this information is protected by the Federal Confidentiality of Alcohol and Drug Abuse Patient Records regulations: The Federal rules restrict any use of the information to criminally investigate or prosecute any alcohol or drug abuse patient.[facility] HospitalIn the event this information is protected by the Federal Confidentiality of Alcohol and Drug Abuse Patient Records regulations: The Federal rules restrict any use of the information to criminally investigate or prosecute any alcohol or drug abuse patient.[facility] HospitalIn the event this information is protected by the Federal Confidentiality of Alcohol and Drug Abuse Patient Records regulations: The Federal rules restrict any use of the information to criminally investigate or prosecute any alcohol or drug abuse patient.[facility] HospitalIn the event this information is protected by the Federal Confidentiality of Alcohol and Drug Abuse Patient Records regulations: The Federal rules restrict any use of the information to criminally investigate or prosecute any alcohol or drug abuse patient.[facility] HospitalIn the event this information is protected by the Federal Confidentiality of Alcohol and Drug Abuse Patient Records regulations: The Federal rules restrict any use of the information to criminally investigate or prosecute any alcohol or drug abuse patient.[facility] FOR RECORDS PERTAINING TO PATIENTS WHO ARE OR HAVE BEEN ENROLLED IN A CHEMICAL DEPENDENCY/SUBSTANCEABUSE PROGRAM, SOME INFORMATION MAY BE OMITTED. This clinical summary was aggregated from multiple sources. Caution should be exercised in using it in the provision of clinical care. This summary normalizes information from multiple sources, and as a consequence, information in this document may materially change the coding, format and clinical context of patient data. In addition, data may be omitted in some cases. CLINICAL DECISIONS SHOULD BE BASED ON THE PRIMARY CLINICAL RECORDS. [facility] [employer] [facility]. provides no warranty or guarantee of the accuracy or completeness of information in this document.
[2025-06-09 13:14] LABS: Hematocrit 34.5 % (36.0-48.0); Hemoglobin 11.0 g/dL (12.0-16.0); Mean Corpuscular HGB Conc 31.9 g/dL (29.9-35.2); Mean Corpuscular Hemoglobin 24.3 pg (26.7-34.0); Mean Corpuscular Volume 76.2 fL (81.0-99.0); Platelet Count 246 10^3/uL (150-450); Red Blood Count 4.53 10^6/uL (4.20-5.40); White Blood Count 6.1 10^3/uL (4.0-11.0)
[2025-06-09 13:15] LABS: Glucose Urine UA NEGATIVE (NEGATIVE)
[2025-06-09 13:51] LABS: Protein Creatinine Ratio Urine 2.06; Total Protein Urine Random 169.1 mg/dL (<=11.9)
[2025-06-09 13:55] LABS: Albumin Level 3.1 g/dL (3.4-5.0); Anion Gap 7.1; Blood Urea Nitrogen 27.0 mg/dL (7.0-18.0); Calcium 8.7 mg/dL (8.5-10.1); Carbon Dioxide 25.9 mmol/L (21.0-32.0); Chloride 110 mmol/L (98-107); Estimated GFR (African America 30 (>=60 mL/min/1.73m^2); Estimated GFR (Non-African Ame 25 (>=60 mL/min/1.73m^2); Glucose 137 mg/dL (74-106); Magnesium 1.5 mg/dL (1.8-2.4); Potassium 4.0 mmol/L (3.5-5.1); Sodium 139 mmol/L (136-145); Uric Acid 8.5 mg/dL (2.6-6.0)
[2025-06-09 13:56] LABS: Iron 28.0 ug/dL (50.0-170.0); Percent Iron Saturation 9.0 %; Total Iron Binding Capacity 312.0 ug/dL (250.0-450.0)
[2025-06-09 14:07] LABS: Cast Seen? NONE SEEN #/LPF (NONE SEEN); Crystals Seen? None Seen #/HPF (None Seen)
[2025-06-09 14:20] LABS: Ferritin 32.0 ng/mL (8.0-252.0)
== END 2025-06-09 12:29 | disposition home or self-care (01) ==
LOC: LAB 12:31
PROVIDERS: Visit Provider Internal Medicine
DX: I12.9 Hypertensive chronic kidney disease with stage 1 through stage 4 chronic kidney disease, or unspecified chronic kidney disease (principal); N18.4 Chronic kidney disease, stage 4 (severe); E11.22 Type 2 diabetes mellitus with diabetic chronic kidney disease; R80.9 Proteinuria, unspecified; N20.0 Calculus of kidney; E78.5 Hyperlipidemia, unspecified
CPT/HCPCS: 36415; 80069; 81001; 82306; 82570; 82728; 83540; 83550; 83735; 83970; 84156; 84550; 85027

== ENCOUNTER 2025-10-20 09:50 | Outpatient (OUT) | payer OTHER, SELFPAY ==
--- OUTSIDE RECORDS SUMMARY | 2025-10-20 09:56 | XMS_ITS | Clinical Summary ---
Author Organization [facility] Address [id number] [place] [address] Care Team Providers Care Copy Manager Name Role Phone Amina Holcomb DEBORAH-TANK RIVETER Primary Care Provider + Allergies Active AllergyReactionsCriticalityNoted DateCommentsPenicillinsHivesArt 03/09/2017 Medications MedicationSigDispense QuantityRefillsLast FilledStart DateEnd DateStatus amLODIPine (NORVASC) 2.5 mg tablet 4Active ondansetron (ZOFRAN) 4 mg tablet Indications:NauseaTake 1 tablet (4 mg total) by mouth every 8 (eight) hours as needed for nausea or vomiting. 20 tablet 4Active docusate sodium (COLACE) 100 mg capsule 1 capsule (100 mg total). Take for 7 days5Active sertraline (ZOLOFT) 50 mg tablet Indications:Current mild episode of major depressive disorder, unspecified whether recurrentTake 1 tablet (50 mg total) by mouth in the morning. 90 tablet 5Active levothyroxine (SYNTHROID, LEVOTHROID) 88 MCG tablet Indications:Acquired hypothyroidismTake 1 tablet (88 mcg total) by mouth in the morning. 90 tablet 5Active liraglutide (VICTOZA) 0.6 mg/0.1 mL (18 mg/3 mL) pen injector Inject 1.8 mg under the skin once daily. 27 mL 5Active lidocaine (LIDODERM) 5 % APPLY 1 PATCH TOPICALLY ONCE DAILY FOR PAIN FOR 14 DAYS LEAVE ON MOST PAINFUL AREA FOR UP TO 12 HOURS (12 HOURS ON/ 12 HOURS OFF)5Active magnesium oxide (MAGOX) 400 mg tablet Take 1 tablet (400 mg total) by mouth in the morning.5Active blood-glucose sensor (Nano ePrint G7 SENSOR) device Indications:Type 2 diabetes mellitus with hyperglycemia, without long-term current use of insulin ([facility])APPLY 1 SENSOR EVERY 10 DAYS DIRECTED 3 each 605Active pen needle, diabetic 31 gauge x 15/64 needle 5Active traZODone (DESYREL) 100 mg tablet Indications:Current mild episode of major depressive disorder, unspecified whether recurrent,VertigoTake 1 tablet (100 mg total) by mouth in the morning and at bedtime. 60 tablet 5Active JARDIANCE 10 mg tablet tablet Take 1 tablet (10 mg total) by mouth in the morning. 90 tablet 5Active Additional Information Patient not taking.Reported on 09/18/2025 rosuvastatin (CRESTOR) 20 mg tablet Indications:Mixed hyperlipidemiaTAKE 1 TABLET BY MOUTH ONCE DAILY 90 tablet 5Active ALPRAZolam (XANAX) 0.25 mg tablet Indications:Social anxiety disorderTAKE 1 TABLET BY MOUTH NIGHTLY NEEDED FOR ANXIETY 30 tablet 09/07/2025tive ferrous sulfate 325 (65 FE) mg EC tablet Take 1 tablet (325 mg total) by mouth in the morning and 1 tablet (325 mg total) in the evening. Take with meals.Active ergocalciferol (DRISDOL) 1,250 mcg (50,000 unit) capsule Indications:Vitamin D deficiencyTAKE 1 CAPSULE BY MOUTH EVERY SUNDAY 12 capsule 5Active TOUJEO MAX U-300 SOLOSTAR 300 unit/mL (3 mL) insulin pen Indications:Type 2 diabetes mellitus with stage 3 chronic kidney disease, unspecified whether longterm insulinuse, unspecified whether stage 3a or 3b CKD ([facility])Inject 20 Units under the skin in the morning. 15 mL 5Active pen needle, diabetic 31 gauge x 1/4 needle Indications:Uncontrolled type 2 diabetes mellitus with hyperglycemia ([facility]) Inject 1 Pen Needle into the skin in the morning. 90 each 5Active busPIRone (BUSPAR) 10 mg tablet Take 1 tablet (10 mg total) by mouth 3 (three) times a day. 90 tablet 5Active tolterodine (DETROL) 2 mg tablet Indications:Overactive bladderTake 1 tablet (2 mg total) by mouth in the morning and 1 tablet (2 mg total) before bedtime. TAKE 1TABLET BY MOUTH TWICE DAILY (IN THE MORNING AND BEFORE BEDTIME). 60 tablet 5Active hyoscyamine (LEVBID) 0.375 mg 12 hr tablet Indications:Diarrhea, unspecified typeTake 1 tablet by mouth in the evening 30 tablet 5Active hyoscyamine (LEVBID) 0.375 mg 12 hr tablet Indications:Diarrhea, unspecified typeTake 1 tablet by mouth in the evening 30 tablet Discontinued Active Problems ProblemNoted DateDiagnosed DateEssential zqjttkrvjoxm92/19/2025 Overview (07/17/2025): Managed on amlodipine Sprain of left ankle07/17/2025Secondary tdcqgtjlapsfflxicgi85/29/2024artial small bowel uhjlcadpzrk34/29/2024Incisional oklsey6102/04/2024enal insufficiency 02/04/2024Malignant neoplasm of transverse colon01/01/2024 Overview (01/01/2024): Onset Date: Dec 14, 2015 Onset Date: Jan 09, 2017 Onset Date: Jan 09, 2017 Acquired absence of other specified parts of digestive tract03/15/2023nemia, xtojpaofwwo73/18/0824Gjzveg94/18/2023enign paroxysmal positional vertigo 03/15/2023hronic dmuloryhpqro73/18/2023hronic fatigue oojuzdwp02/18/2023 Combined wgrgozrbzifoki67/18/2023ontracture, right ankle03/15/2023ERD without /18/1480Tdomalocwrqnfs43/18/2023Intussusception of colon03/15/2023 Mild recurrent major lkkxhaahuo66/18/8666Befdrpzdprdzaqj31/18/2023OAB (overactive bladder)03/15/2023Obstructive sleep apnea hiyhukdi25/18/2023 Osteochondritis dissecans of left ankle03/15/2023olycystic mpiurqh0803/15/2023 Renal atrophy, left03/15/2023Renal mass03/15/2023Social anxiety disorder 03/15/2023Stage 3 chronic kidney dolokla4903/15/2023Type 2 diabetes mellitus with diabetic chronic kidney xsqrgtu3903/15/2023Vertigo of central pgrves5303/15/2023 Vestibular wcclemxceaj25/18/2023Vitamin D gebnvoauzl18/18/2023Iron deficiency anemia due to chronic blood loss11/15/2017History of excision of intestinal qpcchriyn96/30/2017Malignant neoplasm of transverse colon05/10/2017 Cancer Staging: Clinical:Stage IIB(T4a, N0, M0) - Signed by Candleario Sanchez MD on 05/10/2017 Encounters DateTypeDepartmentCare DhgdZmgyczzwjob44/22/2025Refill [facility] [address] [place] [phone] Jadyn Styles CMA Diarrhea, unspecified type10/18/2025Refill [facility] [address] [place] [address] Amina Holcomb APRN-ROBI Diarrhea, unspecified type09/21/2025Orders Only [facility] [address] [place] [address] Ref Prov, Not In System 09/18/2025 11:40 AM ESTOffice Visit [facility] [address] [place] [address] Amina Holcomb APRN-TANK RIVETER Social anxiety disorder (Primary Dx); Mild recurrent major depression; Overactive bladder; Essential hypertension; Acute right-sided low back pain without sciatica; Class 3 severe obesity due to excess calories with serious comorbidity and body mass index (BMI) of50.0 to 59.9 in adult ([facility])09/18/20255215Ozqddl45/14/2025 Orders Only [facility] [address] [place] [address] Ref Prov, Not In System 09/09/2025Refill [facility] [address] [place] [address] Jadyn Styles CMA Uncontrolled type 2 diabetes mellitus with hyperglycemia ([facility])09/08/2025 Orders Only [facility] [address] [place] [address] Amina Holcomb, [employer] Uncontrolled type 2 diabetes mellitus with hyperglycemia ([facility])09/08/2025 Orders Only [facility] [address] [place] [address] Amina Holcomb, [employer] Type 2 diabetes mellitus with stage 3 chronic kidney disease, unspecified whether longterm insulinuse, unspecified whether stage 3a or 3b CKD ([facility]) 09/07/2025Results Follow-Up [facility] [address] [place] [address] Amina Holcomb, [employer] POCT Hemoglobin A1c, Ferritin, Iron and TIBC, Additional followed-up results: 3 09/07/2025Orders Only [facility] [address] [place] [address] Amina Holcomb [employer] 09/07/2025Orders Only [facility] [address] [place] [address] Amina Holcomb [employer] 09/06/2025Refill [facility] [address] [place] [address] Amina Holcomb, [employer] Diarrhea, unspecified type09/03/2025 11:20 AM ESTOffice Visit [facility] [address] [place] [address] Amina Holcomb, [employer] Vertigo (Primary Dx); Stage 4 chronic kidney disease ([facility]); Type 2 diabetes mellitus with stage 4 chronic kidney disease, with long-term current use of insulin([facility]); Acquired hypothyroidism; Microcytic anemia; Vitamin D deficiency; Anxiety; Functional drjipvkc30/06/7372Cvecnj66/04/2025Refill [facility] [address] [place] [address] Amina Holcomb, [employer] Social anxiety nrlagoby26/28/2025Refill [facility] - [facility] [address] [place] [address] Jadyn Styles, NIYA Overactive ofwfmrb6608/18/2025Refill [facility] [address] [place] [address] Jadyn Styles, NIYA Overactive dzpdfdm8808/11/2025Refill [facility] - [facility] [address] [place] [address] Fernando Ribeiro, DO Diarrhea, unspecified type08/10/2025Refill [facility] [address] [place] [address] Jadyn Styles, LINE MAINTENANCE Mixed syxuwltdktplsx61/10/2025Orders Only [facility] [address] [place] [address] Amina Holcomb, [employer] 07/29/2025Orders Only [facility] [address] [place] [address] Ref Prov, Not In System from Last 3 Months Family History Medical HistoryRelationNameCommentsColon cancerFatherThroat cancerFatherLung cancerMaternal GrandfatherProstate cancerPaternal GrandfatherColon cancer Paternal UncleRelationNameStatusCommentsFatherAliveMaternal GrandfatherMaternal UncleMotherAlivePaternal GrandfatherPaternal UncleDeceased Social History Tobacco UseTypesPacks/DayYears UsedDateSmoking Tobacco: NeverSmokeless Tobacco: Never Tobacco Cessation:Counseling Given: Not Answered Alcohol UseStandard Drinks/WeekCommentsNo0 (1 standard drink = 0.6 oz pure alcohol)PHQ-2AnswerDate RecordedTotal Flqoq53911/18/2024UDIT-CAnswerDate Recorded Q1: How often do you have a drink containing alcohol?Never09/18/2025Q2: How many drinks containing alcohol do you have on a typical day when you are drinking? Patient does not drink09/18/2025Q3: How often do you have six or more drinks on one occasion?Never09/18/2025hildcareAnswerDate RecordedChildcareUnknown 04/09/2019EmploymentAnswerDate LgystmzfUxwgpyrxtwMrknutf84/12/2019Hunger ScreeningAnswerDate RecordedWithin the past 12 months we worried whether our food would run out before we got money to buy more.Never True09/18/2025Within the past 12 months the food we bought just didn't last and we didn't have money to get more.Never True09/18/2025Purpose - LifeAnswerDate RecordedPurpose and direction in lsxfAydvgkt81/11/2021CommentsUnknownSex and Gender InformationValueDate RecordedSex Assigned at BirthNot on fileLegal SexFemale 06/03/2015 11:39 AM EDTGender IdentityNot on fileSexual OrientationNot on file Last Filed Vital Signs Vital SignReadingTime TakenCommentsBlood Vlgqyteg173/30111/18/2024 12:21 PM EST Tmxnj210309/18/2025 12:21 PM YTOSzzhczmbfrz65.7 ??C (98.1 ??F)09/18/2025 12:10 PM ESTRespiratory Tiqx403311/18/2024 12:10 PM ESTOxygen Ifzvabvvax58%09/18/2025 12:21 PM ESTInhaled Oxygen Concentration--Pisaib628.3 kg (302 lb 12.8 oz)09/18/2025 12:10 PM SVWHucpjk768 cm (5' 2.99 )09/18/2025 12:10 PM ESTBody Mass Index53.65 09/18/2025 12:10 PM EST Plan of Treatment DateTypeDepartmentCare Team (Latest Contact Info)Btyavavnnhz44/26/2026 9:20 AM ESTOffice Visit [facility] [address] [place] [address] Amina Holcomb, [employer] [address] [place] [address] Health MaintenanceDue DateLast DoneCommentsDiabetic Ophthalmology Exam1979 DTaP,Tdap and Td Vaccines (1 - Tdap)1998Pap Smear2000Mammogram /iabetic Foot ExamOVID-19 Vaccine ( season)501/07/2022, 04/19/2021, 03/21/2021Influenza Vaccine 06/29/2025dult BMI Follow Up Plan/dult BMI Screening Depression Irstajixm82/Tobacco Screening Medical Devices Not on file Procedures Procedure NamePriorityDate/TimeAssociated DiagnosisCommentsEXTERNAL BARBER SHOP MANAGER, CGM QFSNkvmgkb52/21/2025 8:26 AM ESTBASIC METABOLIC XNMPGDfzgnog89/06/2025 12:40 PM EST Stage 4 chronic kidney disease (CMS-HCC) THYROID PROFILE INCLUDES TSH VY6Dbwuilc88/06/2025 12:40 PM EST Acquired hypothyroidism CBC WITH AUTO PIVASIMOKKZBLnmhlvz97/06/2025 12:40 PM EST Microcytic anemia IRON AND TAHFMkvedde63/06/2025 12:40 PM EST Microcytic anemia RCKAPOUINjggkmn05/06/2025 12:40 PM EST Microcytic anemia POCT HEMOGLOBIN Z0EUoivmje27/06/2025 11:26 AM EST Type 2 diabetes mellitus with stage 4 chronic kidney disease, with long-term current use of insulin([facility]) EXTERNAL BARBER SHOP MANAGER, CGM IOLFsmijfa99/06/2025 7:43 AM ESTBASIC METABOLIC PANEL Wyswwmm6007/29/2025 9:06 AM EDTCBC W AUTO DIFF HDIKjsqcbp07/01/2025 8:49 AM EDT from Last 3 Months Results * EXTERNAL BARBER SHOP MANAGER, CGM SYS (09/18/2025 8:26 AM EST) Only the most recent of2 resultswithin the time period is included. Narrative Authorizing ProviderResult TypeResult StatusNot In System Ref ProvPR MISCELLANEOUS SERVICESFinal ResultPerforming OrganizationAddressCity/State/ZIP CodePhone Number MANUALLY TRANSCRIBED RESULTS * Thyroid profile includes TSH FT4 (09/03/2025 12:40 PM EST)ComponentValueRef RangeTest MethodAnalysis TimePerformed AtPathologist SignatureFREE T40.890.61 - 1.60 ng/dL09/03/2025 6:28 PM [facility] LABORATORYTSH1.09 0.49 - 4.67 uIU/mL09/03/2025 6:28 PM [facility] Specimen (Source)Anatomical Location / LateralityCollection Method / Volume Collection TimeReceived TimeBloodVenous blood / Xxtixtk1209/03/2025 12:40 PM EST 09/03/2025 12:40 PM EST Narrative Authorizing ProviderResult TypeResult StatusBrrich Holcomb HEALTH WORKERS-CNPLAB BLOOD ORDERABLESFinal ResultPerforming OrganizationAddressCity/State/ZIP CodePhone Number [facility] [address] [place] [address], * (ABNORMAL) CBC auto differential (09/03/2025 12:40 PM EST)ComponentValueRef RangeTest MethodAnalysis TimePerformed AtPathologist SignatureWBC6.84 - 11 X10^9/L111/03/2024 6:05 PM [facility] LABORATORYRBC Count5.09 3.8 - 5.2 X10^12/L111/03/2024 6:05 PM [facility] Rksqtriydd73.711.7 - 15.5 g/dL09/03/2025 6:05 PM [facility] TGQXMDJLHAIzyywwmcnd03.435 - 47 %09/03/2025 6:05 PM [facility] TYZHWSRHKWGUZ62(L)80 - 100 fL09/03/2025 6:05 PM [facility] XPGTJRCAWDUJW01.9(L)27 - 34 pg09/03/2025 6:05 PM [facility] BGYBMTFMVZBHPL76.932 - 36 g/dL09/03/2025 6:05 PM [facility] BSXBAFMEMUBRJ40.2(H)11.5 - 15 %09/03/2025 6:05 PM [facility] LABORATORYPlatelet Kjcvh370601 - 450 X10^9/L111/03/2024 6:05 PM [facility] LABORATORYMPV7.47 - 12 fL09/03/2025 6:05 PM [facility] LABORATORYNeutrophils %66.9%09/03/2025 6:05 PM [facility] LABORATORYLymphocytes %22.8%09/03/2025 6:05 PM [facility] LABORATORYMonocytes %5.5%09/03/2025 6:05 PM [facility]OR[facility]ORYEosinophils %4.1%09/03/2025 6:05 PM [facility]OR[facility]ORYBasophils %0.7%09/03/2025 6:05 PM [facility] LABORATORYNeutrophils Absolute (A)4.61.5 - 6.6 X10^9/L 09/03/2025 6:05 PM [facility] LABORATORYLymphocytes Absolute 1.61.0 - 3.5 X10^9/L111/03/2024 6:05 PM [facility] Monocytes Absolute0.40.0 - 0.9 X10^9/L111/03/2024 6:05 PM [facility] LABORATORYEosinophils Absolute0.30.0 - 0.4 X10^9/L111/03/2024 6:05 PM [facility] LABORATORYBasophils Absolute0.00.0 - 0.2 X10^9/L 09/03/2025 6:05 PM [facility] LABORATORYDifferential Type AUTOMATED JNRNTCAZYIXX08/06/2025 6:05 PM [facility] LABORATORYSpecimen (Source)Anatomical Location / LateralityCollection Method / VolumeCollection TimeReceived TimeBloodVenous blood / Dwuejmd7609/03/2025 12:40 PM EST09/03/2025 12:40 PM EST Narrative Authorizing ProviderResult TypeResult StatusBrrich Holcomb [employer] WORK[employer]-CNPLAB BLOOD ORDERABLESFinal ResultPerforming OrganizationAddressCity/State/ZIP CodePhone Number [facility] [address] [place] [id number], * Iron and TIBC (09/03/2025 12:40 PM EST)ComponentValueRef RangeTest Method Analysis TimePerformed AtPathologist JjdipksxcPBRZ9051 - 170 ug/dL09/03/2025 6:19 PM [facility] FITRTLECNCIPAGOEMAMHA415892 - 336 mg/dL 09/03/2025 6:19 PM [facility] LABORATORYIRON WCXAEQL544357 - 425 ug/dL09/03/2025 6:19 PM [facility] LABORATORYIRON ITBVSVXGIT3568 - 50 % ANZBBFYPXZ34/06/2025 6:19 PM [facility] LABORATORYSpecimen (Source)Anatomical Location / LateralityCollection Method / VolumeCollection TimeReceived TimeBloodVenous blood / Gfdnupn1409/03/2025 12:40 PM EST09/03/2025 12:40 PM EST Narrative Authorizing ProviderResult TypeResult StatusAmina Holcomb [employer] WORK[employer]-CNPLAB BLOOD ORDERABLESFinal ResultPerforming OrganizationAddressCity/State/ZIP CodePhone Number [facility] [address] [place] [address], * Ferritin (09/03/2025 12:40 PM EST)ComponentValueRef RangeTest MethodAnalysis TimePerformed AtPathologist XdyxhzgcpZZVTRTKE9669 - 307 ng/mL09/03/2025 6:32 PM [facility] LABORATORYSpecimen (Source)Anatomical Location / LateralityCollection Method / VolumeCollection TimeReceived TimeBloodVenous blood / Wsyrfku5909/03/2025 12:40 PM EST09/03/2025 12:40 PM EST Narrative Authorizing ProviderResult TypeResult StatusAmina Holcomb [employer] WORKERS-CNPLAB BLOOD ORDERABLESFinal ResultPerforming OrganizationAddressCity/State/ZIP CodePhone Number [facility] [address] [place] [address], * (ABNORMAL) Basic Metabolic Panel (09/03/2025 12:40 PM EST) Only the most recent of2 resultswithin the time period is included. ComponentValueRef RangeTest MethodAnalysis TimePerformed AtPathologist Signature BUOVBS784348 - 146 mmol/L111/03/2024 6:19 PM [facility] LABORATORYPOTASSIUM4.03.5 - 5.0 mmol/L111/03/2024 6:19 PM [facility] ITFJVQEATSIOSQNJDP40172 - 109 mmol/L111/03/2024 6:19 PM [facility] LABORATORYCARBON BYUBVJG32(L)22 - 32 mmol/L111/03/2024 6:19 PM [facility] LABORATORYANION GAP85 - 15 mmol/L111/03/2024 6:19 PM [facility] LABORATORYBLOOD UREA WJYBYASQ78(H)5 - 23 mg/dL09/03/2025 6:19 PM [facility] LABORATORYCREATININE2.13(H)0.40 - 1.00 mg/dL 09/03/2025 6:19 PM [facility] LABORATORYComment:METHOD TRACEABLE TO IDMS HOPQADHFPTIADWZ302(H)65 - 99 mg/dL09/03/2025 6:19 PM [facility] LABORATORYCALCIUM8.98.5 - 10.5 mg/dL09/03/2025 6:19 PM EST [facility]ORYEGFR Non-Race Phnortpue57(L)>=60 ml/min/1.73sq.m111/03/2024 6:19 PM [facility] LABORATORYComment: Reported eGFR is based on the CKD-EPI 2020 equation that does not use a race coefficient. Specimen (Source)Anatomical Location / LateralityCollection Method / Volume Collection TimeReceived TimeBloodVenous blood / Gykatew7609/03/2025 12:40 PM EST 09/03/2025 12:40 PM EST Narrative Authorizing ProviderResult TypeResult StatusAmina Holcomb [employer] WORKERS-CNPLAB BLOOD ORDERABLESFinal ResultPerforming OrganizationAddressCity/State/ZIP CodePhone Number [facility] [address] [place] [address], * POCT Hemoglobin A1c (09/03/2025 11:26 AM EST)ComponentValueRef RangeTest MethodAnalysis TimePerformed AtPathologist SignatureExternal Poct Hgb A1C6.24 - 7 %MANUALLY TRANSCRIBED RESULTSSpecimen (Source)Anatomical Location / LateralityCollection Method / VolumeCollection TimeReceived TimeBlood 09/03/2025 11:26 AM EST Narrative Authorizing ProviderResult TypeResult StatusAmina Holcomb HEALTH WORKERS-CNPPOINT OF CARE TEST ORDERABLESFinal ResultPerforming OrganizationAddressCity/State/ZIP Code Phone Number MANUALLY TRANSCRIBED RESULTS * CBC W Auto Diff Bld (07/29/2025 8:49 AM EDT) Narrative Authorizing ProviderResult TypeResult StatusNot In System Ref ProvLAB BLOOD ORDERABLESFinal ResultPerforming OrganizationAddressCity/State/ZIP CodePhone Number MANUALLY TRANSCRIBED RESULTS from Last 3 Months Insurance * Guarantor: Carina Ramos AAccount TypeRelation to PatientDate of BirthPhone Billing AddressPersonal/FuuhafZdlx85/ [facility] [place] [address] Care Teams Team MemberRelationshipSpecialtyStart DateEnd Date Amina Holcomb, [employer] WORK[employer]-TANK RIVETER [address] [place] [address] PCP - GeneralFamily Medicine04/24/25
--- OUTSIDE RECORDS SUMMARY | 2025-10-20 09:56 | XMS_ITS | Clinical Summary ---
Author Organization [facility] Address [address] [place] [address] Care Team Providers Care Supervisor Powder And Primer Canning Name Role Phone Mami Rosales Unavailable [phone] Fernando Ribeiro MD Primary Care Provider [phone] Allergies Active AllergyReactionsCriticalityNoted DateCommentsPenicillin GRashLow 3PenicillinsHives,NxkvPoo8003/09/2017 Medications MedicationSigDispense QuantityRefillsLast FilledStart DateEnd DateStatus traMADol (Ultram) 50 MG tablet Take 50 mg by mouth every 8 (eight) hours if needed.10/03/2022ctive Continuous Blood Gluc Mastic Sprayer (Dexcom G7 Mastic Sprayer) device USE EEXHEQKF15/20/2023ctive rosuvastatin (Crestor) 20 MG tablet Indications:Combined hyperlipidemiaTake 1 tablet by mouth once daily 100 tablet ctive ReliOn Pen [place] 31G X 6 MM misc USE 1 PEN ONCE DAILY IN THE TKWSBNN7405/10/2023ctive sertraline (Zoloft) 50 MG tablet Indications:Panic disorderTake 1 tablet (50 mg) by mouth in the morning. 90 tablet ctive Continuous Blood Gluc Sensor (Dexcom G7 Sensor) misc APPLY 1 SENSOR EVERY 10 DAYS GHWSXLTH57/20/2023ctive tiZANidine (Zanaflex) 4 MG tablet Indications:Contracture, right ankleTake 1 tablet (4 mg) by mouth as needed at bedtime for muscle spasms. 30 tablet ctive traZODone (Desyrel) 100 MG tablet Indications:Social anxiety disorderTAKE 2 TABLETS BY MOUTH IN THE MORNING AND 2 AT BEDTIME 120 tablet ctive ALPRAZolam (Xanax) 0.5 MG tablet Indications:Panic disorderTAKE 1 TABLET BY MOUTH TWICE DAILY (MORNING AND BEFORE BEDTIME) 60 tablet ctive insulin glargine (Toujeo Max Solostar, 2 unit dial,) 300 UNIT/ML injection Indications:Diabetes mellitus without complication (HCC)Inject 18 Units under the skin at bedtime 3 mL ctive tolterodine (Detrol) 2 MG tablet Indications:Overactive bladderTake 1 tablet by mouth twice daily 60 tablet 12/27/2023ctive amLODIPine (Norvasc) 2.5 MG tablet Daily02/14/2024ctive levothyroxine (Synthroid, Levoxyl) 75 MCG tablet Take 75 mcg by mouth in the morning.01/05/2024ctive ondansetron ODT (Zofran-ODT) 4 MG disintegrating tablet 12/26/2023ctive Mounjaro 2.5 MG/0.5ML solution pen-injector Inject 2.5 mg under the skin once a week02/08/2024ctive meclizine (Antivert) 25 MG tablet Indications:AtaxiaTAKE 1 TABLET BY MOUTH 4 TIMES DAILY NEEDED 120 tablet 04/28/2024ctive ergocalciferol (Vitamin D2) 1.25 MG (83555 UT) capsule Indications:Vitamin D deficiencyTAKE 1 CAPSULE BY MOUTH ONCE A WEEK EVERY SUNDAY 12 capsule ctive empagliflozin (Jardiance) 25 MG Take by mouthActive methylPREDNISolone (Medrol Dospak) 4 MG tablets Indications:Peroneal tendinitis, leftFollow schedule on MEDROL PACK package instructions to be used as directed 21 tablet 5Active Active Problems ProblemNoted DateDiagnosed DateAcute ypaokkiqrcbdn55/29/2024cute kidney injury superimposed on chronic kidney rswumhq3702/25/2024cute xpzathnkttscad92/29/2024 BMI 60.0-69.9, adult02/25/2024owel nztlaebsznm14/29/2024ecreased bowel sounds 02/25/20245358Twkqtjour67/29/2024artial small bowel plyrbcvoohu44/29/2024 Ospibxfgmrh43/29/2024Secondary dbvqrbvqykdzdlazcsb47/29/2024Incisional hernia, without obstruction or dmklecgj35/01/2023Upper abdominal pain05/29/2023 Uncontrolled type 2 diabetes mellitus with eoisyudbjqbex99/01/2023cquired absence of other specified parts of digestive tract03/15/2023denocarcinoma of transverse colon03/15/2023nemia, yxptovtwaac94/18/2023anic xjhsolou26/18/2023 Rfkxab6403/15/2023enign paroxysmal positional vtsotde3003/15/2023hronic vjothbnisqoo31/18/2023hronic fatigue fvtyimzn21/18/2023ombined hyperlipidemia 03/15/2023ontracture, right ankle03/15/2023Type 2 diabetes mellitus with diabetic chronic kidney ppghubn3303/15/2023ERD without jgupfipdndm50/18/2023 Zrsdhuptbcciaz91/18/2023Intussusception of colon03/15/2023Loss of balance 03/15/2023Mild recurrent major qwmvuhngki35/18/2023Morbid obesity with BMI of 50.0-59.9, adult03/15/20236482Zyrbdqugejatlzh92/18/2023OAB (overactive bladder) 03/15/2023Obstructive sleep apnea /18/2023Osteochondritis dissecans of left ankle03/15/2023Other specified congenital anomaly of aomboy5803/15/2023 Polycystic itwromd3203/15/2023Renal atrophy, left03/15/2023Renal mass03/15/2023 Social anxiety oyzhfvkf68/18/2023Stage 3 chronic kidney mserhqc1503/15/2023Sudden attack of loss of normal tone or nxapwaqx19/18/2023Vertigo of central origin 03/15/2023Vestibular orlhiummvrq44/18/2023Vitamin D nyazotrdmq82/18/2023Hernia of abdominal wall12/22/2021 Overview (05/23/2023): ileus Rdmhmhcslealpyy24/01/2018Iron deficiency anemia due to chronic blood loss 11/15/2017Lower abdominal pain10/11/2017Malignant neoplasm of transverse colon 09/28/2017History of excision of intestinal ihfsfzefy90/30/2017History of malignant neoplasm of colon09/27/2017Non-refractory idiopathic generalized bhczpwxe75/15/2017 Resolved Problems ProblemNoted DateDiagnosed DateResolved DateAnxiety axhdjwko04/05/2023 Encounters DateTypeDepartmentCare DimxPvhinqndhys23/04/2025Refill [facility] [address] [place] [id number] Arpit Escalante MD Vitamin D deficiencyfrom Last 3 Months Family History Medical HistoryRelationNameCommentsCancerFatherRoger ratliffHypertensionMother Pascale ratliffTorticollisMotherJoanna ratliffhtnMotherJoanna ratliffRelationName StatusCommentsFatherRoger ratliffAliveMotherJoanna crdvqniCfgphQbepbw0Fkcqy Social History Tobacco UseTypesPacks/DayYears UsedDateSmoking Tobacco: NeverSmokeless Tobacco: Never Tobacco Cessation:Counseling Given: Yes Alcohol UseStandard Drinks/WeekCommentsNever0 (1 standard drink = 0.6 oz pure alcohol)Caffeine intake: >4 cups per day soda, chocolateHumiliation, Afraid, Rape, and Kick questionnaireAnswerDate RecordedWithin the last year, have you been afraid of your partner or ex-partner?07/03/2023Within the last year, have you been humiliated or emotionally abused in other ways by your partner or ex-partner?07/03/2023Within the last year, have you been kicked, hit, slapped, or otherwise physically hurt by your partner or ex-partner?No07/03/2023Within the last year, have you been raped or forced to have any kind of sexual activity by your partner or ex-partner?07/03/2023Social Connection and Isolation Panel AnswerDate RecordedIn a typical week, how many times do you talk on the phone with family, friends, or neighbors?Three times a week07/03/2023How often do you get together with friends or relatives?Never07/03/2023How often do you attend alevism or buddhist services?Never07/03/2023o you belong to any clubs or organizations such as alevism groups, unions, fraternal or athletic groups, or school groups?No07/03/2023How often do you attend meetings of the clubs or organizations you belong to?Never07/03/2023re you , , , , never , or living with a partner?Ofwonryqm68/05/2023UDIT-C AnswerDate RecordedQ1: How often do you have a drink containing alcohol?Patient tjazhhzr23/05/2023Q2: How many drinks containing alcohol do you have on a typical day when you are drinking?Patient zeagoknq24/05/2023Q3: How often do you have six or more drinks on one occasion?Patient mplitmgp46/05/2023Overall Financial Resource Strain (CARDIA)AnswerDate RecordedHow hard is it for you to pay for the very basics like food, housing, medical care, and heating?Somewhat hard07/03/2023HQ-2AnswerDate RecordedPatient Health Questionnaire-2 Score1 05/21/2023[facility] - Occupational Stress QuestionnaireAnswerDate RecordedDo you feel stress - tense, restless, nervous, or anxious, or unable to sleep at night because yourmind is troubled all the time - these days?Not at all07/03/2023Exercise Vital SignAnswerDate RecordedOn average, how many days per week do you engage in moderate to strenuous exercise (like a brisk walk)?0 days07/03/2023On average, how many minutes do you engage in exercise at this level?0 min07/03/2023Hunger Vital SignAnswerDate Recorded Within the past 12 months, you worried that your food would run out before you got the money to buymore.Never true07/03/2023Within the past 12 months, the food you bought just didn't last and you didn't have money to get more.Never true 07/03/2023RAPARE - TransportationAnswerDate RecordedIn the past 12 months, has lack of transportation kept you from medical appointments or from getting medications?No07/03/2023In the past 12 months, has lack of transportation kept you from meetings, work, or from getting things needed for daily living?No 07/03/2023Housing Stability Vital SignAnswerDate RecordedIn the last 12 months, was there a time when you were not able to pay the mortgage or rent on time? Patient xmxkxrr9907/03/2023Number of Places Lived in the Last YearNot on file 07/03/2023In the last 12 months, was there a time when you did not have a steady place to sleep or slept in ashelter (including now)?Patient kzmznso6607/03/2023 CommentsUnknownSex and Gender InformationValueDate RecordedSex Assigned at BirthNot on fileLegal OqyCmifmo19/15/2023 6:38 PM EDTGender IdentityNot on fileSexual OrientationNot on file Last Filed Vital Signs Vital SignReadingTime TakenCommentsBlood Fcinwvld061/9204 9:44 AM EDT Nemyw006712/12/2023 9:32 AM SOTTkaaefpmpsv71.1 ??C (98.8 ??F)07/09/2023 2:00 PM EDTRespiratory Xuem816211/11/2024 9:54 AM ESTOxygen Gvewyseyda29%12/12/2023 9:32 AM ESTInhaled Oxygen Concentration--Dpokda128 kg (302 lb)11/11/2024 9:54 AM EST Hebudz006 cm (5' 3 )11/11/2024 9:54 AM ESTBody Mass Index53. 9:54 AM EST Plan of Treatment Not on file Insurance * Guarantor: Carina Ramos AAccount TypeRelation to PatientDate of BirthPhone Billing AddressPersonal/EyoisgTbhg1980 [facility] [place] [address] Care Teams Team MemberRelationshipSpecialtyStart DateEnd Date Fernando Ribeiro MD [address] [id number] PCP - GeneralInternal Bxffcegv47/20/25 Mami Rosales CRNP Referring PhysicianNurse Practitioner11/11/24
--- OUTSIDE RECORDS SUMMARY | 2025-10-20 09:56 | XMS_ITS | Encounter Summary ---
Author Organization [facility] tem Address [id number] [address] [place] [address] Care Team Providers Care Test Cell Technician Name Role Phone Amina Holcomb GRIEVANCE COORDINATOR-EMISSION TECHNICIAN Primary Care Provider + Reason for Visit * ReasonCommentsMed Refill Encounter Details DateTypeDepartmentCare Team (Latest Contact Info)Spbvzpkgmvz34/21/2025Refill [facility] [address] [place] [address] Amina Holcomb [employer]NLY[employer] [address] [place] [address] Diarrhea, unspecified type Social History Tobacco UseTypesPacks/DayYears UsedDateSmoking Tobacco: NeverSmokeless Tobacco: NeverAlcohol UseStandard Drinks/WeekCommentsNo0 (1 standard drink = 0.6 oz pure alcohol)PHQ-2AnswerDate RecordedTotal Iuxtj443/21/2025AUDIT-CAnswerDate Recorded Q1: How often do you have a drink containing alcohol?Never09/18/2025Q2: How many drinks containing alcohol do you have on a typical day when you are drinking? Patient does not drink09/18/2025Q3: How often do you have six or more drinks on one occasion?Never5ChildcareAnswerDate RecordedChildcareUnknown 04/09/2019EmploymentAnswerDate EahjubfcXeoahegisaMipdpuy90/12/2019Hunger ScreeningAnswerDate RecordedWithin the past 12 months we worried whether our food would run out before we got money to buy more.Never True09/18/2025Within the past 12 months the food we bought just didn't last and we didn't have money to get more.Never True09/18/2025Purpose - LifeAnswerDate RecordedPurpose and direction in augaLvsmkal88/11/2021CommentsUnknownSex and Gender InformationValueDate RecordedSex Assigned at BirthNot on fileLegal SexFemale 06/03/2015 11:39 AM EDTGender IdentityNot on fileSexual OrientationNot on file documented as of this encounter Plan of Treatment DateTypeDepartmentCare Team (Latest Contact Info)Brarhleqmhe47/26/2026 9:20 AM ESTOffice Visit [facility] [address] [place] [address] Amina Holcomb, GRIEVANCE COORDINATOR-EMISSION TECHNICIAN [address] [place] [address] documented as of this encounter Visit Diagnoses Diagnosis Diarrhea, unspecified type documented in this encounter Additional Health Concerns AssessmentNoted TimePHQ-9 Depression Total Score: 12:09 PM ESTA Body Mass Index follow-up plan has been documented for the dnoignp0109/21/2025 11:42 AM ESTdocumented as of this encounter Care Teams Team MemberRelationshipSpecialtyStart DateEnd Date Amina Holcomb, GRIEVANCE COORDINATOR-EMISSION TECHNICIAN [address] [place] [address] PCP - GeneralFamily Medicine04/24/25documented as of this encounter
--- OUTSIDE RECORDS SUMMARY | 2025-10-20 09:56 | XMS_ITS | Encounter Summary ---
Author Organization [facility] tem Address [id number] [place] [address] Care Team Providers Care Paint Booth Operator Name Role Phone Amina Holcomb SOCIAL WORK SUPERVISOR-ACUTE CARE CERTIFIED NURSING ASSISTANT Primary Care Provider + Reason for Visit * ReasonOnset DateCommentsMed Niknze0610/19/2025 Encounter Details DateTypeDepartmentCare Team (Latest Contact Info)Ppfyagifduf45/22/2025Refill [facility] - [facility] Medicine [address] [place] [phone] Jadyn Styles CMA Diarrhea, unspecified type Social History Tobacco UseTypesPacks/DayYears UsedDateSmoking Tobacco: NeverSmokeless Tobacco: NeverAlcohol UseStandard Drinks/WeekCommentsNo0 (1 standard drink = 0.6 oz pure alcohol)PHQ-2AnswerDate RecordedTotal Ufjej244/21/2025AUDIT-CAnswerDate Recorded Q1: How often do you have a drink containing alcohol?Never09/18/2025Q2: How many drinks containing alcohol do you have on a typical day when you are drinking? Patient does not drink09/18/2025Q3: How often do you have six or more drinks on one occasion?Never5ChildcareAnswerDate RecordedChildcareUnknown 04/09/2019EmploymentAnswerDate PfmoitwiDykfjrexhvVgkjvus90/12/2019Hunger ScreeningAnswerDate RecordedWithin the past 12 months we worried whether our food would run out before we got money to buy more.Never True09/18/2025Within the past 12 months the food we bought just didn't last and we didn't have money to get more.Never True09/18/2025Purpose - LifeAnswerDate RecordedPurpose and direction in szjhGpscavj75/11/2021CommentsUnknownSex and Gender InformationValueDate RecordedSex Assigned at BirthNot on fileLegal SexFemale 06/03/2015 11:39 AM EDTGender IdentityNot on fileSexual OrientationNot on file documented as of this encounter Plan of Treatment DateTypeDepartmentCare Team (Latest Contact Info)Azeqsbkrimk97/26/2026 9:20 AM ESTOffice Visit [facility] [address] [place] [address] Amina Holcomb, SOCIAL WORK SUPERVISOR-ACUTE CARE CERTIFIED NURSING ASSISTANT [address] [place] [address] documented as of this encounter Visit Diagnoses Diagnosis Diarrhea, unspecified type documented in this encounter Additional Health Concerns AssessmentNoted TimePHQ-9 Depression Total Score: 12:09 PM ESTA Body Mass Index follow-up plan has been documented for the htwzfok2509/21/2025 11:42 AM ESTdocumented as of this encounter Care Teams Team MemberRelationshipSpecialtyStart DateEnd Date Amina Holcomb, SOCIAL WORK SUPERVISOR-ACUTE CARE CERTIFIED NURSING ASSISTANT [address] [place] [address] PCP - GeneralFamily Medicine04/24/25documented as of this encounter
--- OUTSIDE RECORDS SUMMARY | 2025-10-20 09:56 | XMS_ITS | Clinical Summary ---
Author Organization [facility] Address [address] [place] [address], [address] [place] [address] Care Team Providers Care Water Hauler Name Role Phone Dedrick Gilliland MD Primary Care Provider Social History Tobacco UseTypesPacks/DayYears UsedDateSmoking Tobacco: Never Assessed CommentsUnknownSex and Gender InformationValueDate RecordedSex Assigned at Not on fileLegal YawMbwtlv60/10/2013 9:24 AM ESTGender IdentityNot on fileSexual OrientationNot on file Plan of Treatment Not on file Care Teams Team MemberRelationshipSpecialtyStart DateEnd Date Dedrick Gilliland MD [address] [place] [address] PCP - General11/05/12
--- OUTSIDE RECORDS SUMMARY | 2025-10-20 09:56 | XMS_ITS | Clinical Summary ---
Author Organization [facility] Address [address] [address] Care Team Providers Care Lamination Spinner Name Role Phone Unavailable Primary Care Provider Unavailabl e Social History Tobacco UseTypesPacks/DayYears UsedDateSmoking Tobacco: Never Assessed CommentsUnknownSex and Gender InformationValueDate RecordedSex Assigned at Not on fileLegal VqbMfwbrt46/29/2022 11:39 PM EDTGender IdentityNot on file Sexual OrientationNot on file Last Filed Vital Signs Vital SignReadingTime TakenCommentsBlood Gliencoj010/7611 8:59 AM EDT Ccvgc527708/29/2019 8:59 AM POFVehqzmzemtp17.7 ??C (98.1 ??F)03/06/2019 8:43 AM EDTRespiratory Rate--Oxygen Saturation--Inhaled Oxygen Concentration--Cilcos246 kg (339 lb 15.9 oz)04/28/2021 7:39 AM LUWMycujo451.1 cm (5' 5 )05/04/2021 8:14 AM EDTBody Mass Index56.5807 7:39 AM EDT Plan of Treatment Health MaintenanceDue DateLast DoneCommentsCT Aopmxpzckiof1979Diabetes: Hemoglobin A1C1979FIT-DNA1979FIT1979FOBT1979 Qpfzjthhyccgx1979Diabetes: Retinopathy Vfrqrkywv94/18/1989Depression Mguclspyi13/18/1991Hepatitis B Vaccines (1 of 3 - 19+ 3-dose series)1998 Pap Smear2000Adult Iodwzwr8108/15/2001Cervical Cancer Amsmpxwqi99/18/2009 HPV/Aztgrg0208/15/20093725Zpjjjluiw52/24/202305/1Diabetes: Urine Protein Qiwpihurb54/26//4COVID-19 Vaccine ( season)2025 Influenza Vaccine (#1)06/29/20252634Krnjuqvxmie81Colorectal Cancer Adgdmryls53/04/2029Zoster Vaccines (1 of 2)2029HIB VaccinesAged OutNo longer eligible based on patient's age to complete this topicHPV VaccinesAged OutNo longer eligible based on patient's age to complete this topicIPV Vaccines Aged OutNo longer eligible based on patient's age to complete this topic Meningococcal B VaccineAged OutNo longer eligible based on patient's age to complete this topicMeningococcal VaccineAged OutNo longer eligible based on patient's age to complete this topicPneumococcal Vaccine: Pediatrics (0 to 5 Years) and At-Risk Patients (6 to 64 Years)Aged OutNo longer eligible based on patient's age to complete this topicRotavirus VaccinesAged OutNo longer eligible based on patient's age to complete this topic Insurance * Guarantor: Kiara Ramos TypeRelation to PatientDate of BirthPhone Billing AddressPersonal/GltfabNoez1980 [facility] [place] [address]
--- OUTSIDE RECORDS SUMMARY | 2025-10-20 09:56 | XMS_ITS | Clinical Summary ---
Author Organization [facility] Address [address] [place] [address] Phone Care Team Providers Care Cryptographic Technician Name Role Phone Unavailable Primary Care Provider Unavailabl e Social History Tobacco UseTypesPacks/DayYears UsedDateSmoking Tobacco: Never Assessed CommentsUnknownSex and Gender InformationValueDate RecordedSex Assigned at Not on fileLegal SnaTxrcdi51/25/2022 6:58 PM ESTGender IdentityNot on fileSexual OrientationNot on file Last Filed Vital Signs Vital SignReadingTime TakenCommentsBlood Pressure--Pulse--Temperature-- Respiratory Rate--Oxygen Saturation--Inhaled Oxygen Concentration--Axhtrv504 kg (295 lb)04/21/2025 9:00 AM RVGEmulnf771 cm (5' 3 )04/21/2025 9:00 AM EDTBody Mass Index52.26004/21/2025 9:00 AM EDT Plan of Treatment Not on file
--- OUTSIDE RECORDS SUMMARY | 2025-10-20 09:56 | XMS_ITS | Patient Health Record ---
Author Organization [facility] Address [address] [place] [address] [address] [place] [address] Care Team Providers Care Funeral Service Manager Name Role Phone Aleksandr Phan Unavailable [phone] Allergies Allergen (clinical drug ingredient) Drug/Non Drug Allergy documented on EMR Reaction Allergy Type Onset Date Status penicillin V Penicillin V Potassium Unknown Drug Allerg y Active Reason For Referral No Information Medications Medication SIG (Take, Route, Frequency, Duration) Notes Start Date End Date Status Thyroid ActiveZoloft 50 MG Tablet1 tablet Orally Once a dayActiveNefazodone HCl 100 MG Tablet2 tablets Orally Twice a dayActive Social History Tobacco Use: Social History Observation Description Date Details (start date - stop date) Never Smoker NA - NA Social History Social HistorySocial InfoQuestionAnswerNotestobacco usePatient is a:non smoker Problems Problem Type SNOMED Code ICD Code Onset Dates Problem Status W/U Status Risk Notes Problem Pain in left foot (295754507795892) Pain in left foot (M79.672) ActiveconfirmedProblemSprain of left ankle (32555720122919139)Sprain of other ligament of left ankle, initial encounter (S93.492A)Activeconfirmed Plan Of Treatment No Information Insurance Providers Payer Name Payer Address Payer Phone Subscriber Number Group Number Insured Name Patient Relationship to Insured Coverage Start Date Coverage End Date [employer] [address] [place] [address] [id number] Carina Ramos Self - patien t is the insured Medical (General) History Medical History History ICD Code thyroid disease vertigoSurgical History Surgery Date(Month/Year) gallbladder 2013 Hospitalization History Reason Date(Month/Year) lgallbladder 2013
--- OUTSIDE RECORDS SUMMARY | 2025-10-20 09:56 | XMS_ITS | Clinical Summary ---
Author Organization [facility] Address [address] [place], [place] [address] Care Team Providers Care Propagation Worker Name Role Phone Dawood Clemente Unavailable [phone] Haley Melgar Unavailable Allergies Active AllergyReactionsCriticalityNoted FxdfMoeaufarRqyspdoeoerZhap17/13/2024 Medications MedicationSigDispense QuantityRefillsLast FilledStart DateEnd DateStatus ALPRAZolam (XANAX) 0.25 mg tablet Take 0.25 mg by mouth at bedtime as needed.Active levothyroxine 75 mcg cap Take 75 mcg by mouth daily before breakfast.Active meclizine (ANTIVERT) 25 mg tab Take 25 mg by mouth three times a day.Active amLODIPine (NORVASC) 2.5 mg tablet Take by mouth once daily.Active ondansetron HCl (ZOFRAN ORAL) Take by mouth as needed.Active insulin glargine,hum.rec.anlog (TOUJEO MAX U-300 SOLOSTAR SUBCUTANEOUS) Inject subcutaneously.Active tolterodine (DETROL) 2 mg tablet Take 2 mg by mouth two times a day.Active rosuvastatin (CRESTOR) 20 mg tablet Take 20 mg by mouth once daily.Active sertraline (ZOLOFT) 50 mg tablet Take 50 mg by mouth once daily.Active ergocalciferol 50,000 unit capsule (VITAMIN D2, DRISDOL) Take 50,000 Units by mouth one time a week.Active traZODone (DESYREL) 100 mg tablet Take 100 mg by mouth two times a day.Active liraglutide (VICTOZA) 0.6 mg/ 0.1 ml subcutaneous pen injector Indications:Type 2 diabetes mellitus with chronic kidney disease, with long-term current use of insulin, unspecified CKD stage (HCC)Inject 1.8 mg subcutaneously once daily. 27 mL 5Active Active Problems ProblemNoted DateDiagnosed DateS/P repair of ventral oabdkm575Acute post- operative pain01/14/2025Electrolyte afzsnmrts59/19/2025Morbid obesity with BMI of 50.0-59.9, adult01/14/2025History of ventral jvbtvf2401/13/2025Hernia, pfxqrujcoq09/17/2025 Assessment & Plan (01/12/2025 9:59 AM EDT): Scheduled for repair. Class 3 severe obesity due to excess calories with serious comorbidity and body mass index (BMI) of50.0 to 59.9 in adult05/26/2024 Assessment & Plan (01/12/2025 9:58 AM EDT): BMI 51 Skvreai4905/26/2024HTN (hypertension) Overview (01/12/2025): Managed on amlodipine Assessment [...] (01/12/2025 9:58 AM EDT): Managed on synthroid. Social History Tobacco UseTypesPacks/DayYears UsedDateSmoking Tobacco: NeverPassive Smoke Exposure: CurrentSmokeless Tobacco: Never Tobacco Cessation:Counseling Given: Not Answered Passive Exposure Comments:Parents smoke per pt 3/17/2025Alcohol UseStandard Drinks/WeekCommentsNot Currently0 (1 standard drink = 0.6 oz pure alcohol)Area Deprivation IndexAnswerDate RecordedNational Score (1-100), lower number is lower fvvq724504/10/2024State Score (1-10), lower number is lower kwxa14704/10/2024 Data from: https://www.neighborhoodatlas.[facility].edu/. Last address used for srf[address]fv[address]CommentsNoSex and Gender InformationValueDate RecordedSex Assigned at BirthNot on fileLegal SexFemale 03/07/2024 10:36 AM EDTGender IdentityNot on fileSexual OrientationNot on file Last Filed Vital Signs Vital SignReadingTime TakenCommentsBlood Rlffesji502/8402/13/2025 10:27 AM EDT Oqxxr622502/13/2025 10:27 AM MAITymoiuogfuz38.8 ??C (96.4 ??F)02/13/2025 10:27 AM EDTRespiratory Qjfm242702/13/2025 10:27 AM EDTOxygen Wibipdqmok76%02/13/2025 10:27 AM EDTRoom AirInhaled Oxygen Concentration--Vdrwib707.3 kg (287 lb 3.2 oz) 02/13/2025 10:27 AM EDTShoes on for yqkeusfJjtuei931 cm (5' 3 )02/13/2025 10:27 AM EDTBody Mass Index50.8802/13/2025 10:27 AM EDT Plan of Treatment Health MaintenanceDue DateLast DoneCommentsDiabetic Foot Exam1989Dilated Retinal Exam1989Annual PCP Team Chronic Disease Visit1997Anxiety Slqgmcpkf43/18/1997Depression Jdozcbunt62/18/1997HIV Jsgxznmkq37/18/1997 Hepatitis C Gynvjdsvv06/18/1997LDL Tvahpikkgzw08/18/1997DTaP,Tdap,Td Vaccine (1 - Tdap)1998Hepatitis B Vaccine (1 of 3 - 19+ 3-dose series)1998 Pneumococcal Vaccine (1 of 2 - PCV)1998Cervical Cancer Bvinwliak79/18/2000 Mammogram Dnnbuykfi12/24/697460/, 03/21/2021, 03/21/2021T Colonography 2024ologuard (FIT-DNA)08/15/20248836Ycxttpjtmzu78/18/202406/01/2019Colorectal Cancer Mrxbiihsv44/18/2024Fecal Occult Blood08/15/20247900Rdumhylxgfjwu80/18/2024 Covid-19 Vaccine ( season)/07/2022, 04/19/2021, 03/21/2021Influenza Vaccine (#1)2025Urine Albumin:Creatinine Ratio , 06/23/2024, 02/05/20241408WlH5O48//01/2025, 01/13/2025, 12/17/2024, Additional history existsHemoglobin/Oedrljknpk29/21/2026 01/16/2025, 01/15/2025, 01/14/2025, Additional history existsSerum Creatinine /, 01/15/2025, 01/14/2025, Additional history exists Medical Devices ImplantedTypeAreaManufacturerDevice IdentifierShelf Expiration DateModel / Serial / LotMesh Vicryl Woven 12x12 - [id number] [facility] ETHICONVWML / / Mesh Prolene Square Flat 47z39yr Surgical Knit Nonabsorbable Nonreactive - [id number] Implanted:Qty: 1 [facility]/A: AbdomenJOHNSON AND FXDFDEN8406/28/2029PML / / [id number] Prolene Square Flat 49t38tw Surgical Knit Nonabsorbable Nonreactive - [id number] Implanted:Qty: 1 [facility]/A: AbdomenJOHNSON AND JBECXRC8106/28/2029PML / / [id number] Prolene Square Flat [id number] Surgical Knit Nonabsorbable Nonreactive - [id number] Implanted:Qty: 1 [facility]/A: AbdomenJOHNLAQUITA AND TXRYIQU2006/28/2029PML / / [id number] Prolene Square Flat 74s80uo Surgical Knit Nonabsorbable Nonreactive - [id number] Implanted:Qty: 1 on 01/13/2025 at [facility]/A: AbdomenJOHNSON AND LSISOQD9706/28/2029PML / / [id number] Prolene Square Flat 68a62pk Surgical Knit Nonabsorbable Nonreactive - [id number] Implanted:Qty: 1 on 01/13/2025 at [facility]/A: AbdomenJOHNLAQUITA AND DFWDYOG7606/28/2029PML / / [id number] Vicryl Flat Polyglactin 910 Woven 6x6in Surgical Knit Hernia Repair - [id number] Implanted:Qty: 1 on 01/13/2025 at [facility]/A: AbdomenJ&J ETHICON DRAIN MESH01/27/2028VKMM / / [id number] Procedures Procedure NamePriorityDate/TimeAssociated DiagnosisCommentsCOMPLETE BLOOD COUNT Tulheyu3901/16/2025 10:53 PM EDT BASIC METABOLIC EAUOEKebkdzp13/21/2025 10:53 PM EDT HEMOGLOBIN U4IFig-cz02/18/2025 10:39 PM EDT from Last 3 Months or Most Recently Relevant to Health Maintenance Results * (ABNORMAL) COMPLETE BLOOD COUNT (01/16/2025 10:53 PM EDT)ComponentValueRef RangeTest MethodAnalysis TimePerformed AtPathologist SignatureWBC6.183.70 - 11.00 k/uL01/16/2025 11:55 PM [facility] LABRBC3.29(L) 3.90 - 5.20 m/uL01/16/2025 11:55 PM [facility]TC[facility] Hemoglobin8.2(L)11.5 - 15.5 g/dL01/16/2025 11:[address] [facility] PXMKrbxshfeqy74.1(L)36.0 - 46.0 %01/16/2025 11:[address] [facility] WHKBCX61.480.0 - 100.0 fL01/16/2025 11:[address] [facility] BARPAF41.9(L)26.0 - 34.0 pg01/16/2025 11:[address] [facility] ZYFMJQO16.3(L)30.5 - 36.0 g/dL01/16/2025 11:55 PM EDT [facility] LABRDW-CV15.4(H)11.5 - 15.0 %01/16/2025 11:[address] [facility] LABPlatelet Rosvm794083 - 400 k/uL01/16/2025 11:[address] [facility] LABMPV9.69.0 - 12.7 MO01/16/2025 11:[address] [facility] LABAbsolute nRBC<0.01<0.01 k/uL 01/16/2025 11:[address] [facility] LABSpecimen (Source) Anatomical Location / LateralityCollection Method / VolumeCollection Time Received TimeBloodBLOOD SPECIMEN / UnknownVenipuncture / Smbunkb6101/16/2025 10:53 PM EDT01/16/2025 11:45 PM EDT Narrative Authorizing ProviderResult TypeResult StatusBenjames Nieto MDLABORATORYFinal ResultPerforming OrganizationAddressCity/State/ZIP CodePhone Number [facility] [address] * (ABNORMAL) BASIC METABOLIC PANEL (01/16/2025 10:53 PM EDT)ComponentValueRef RangeTest MethodAnalysis TimePerformed AtPathologist HibkbffsfOadpvql954(H)74 - 99 mg/dL01/17/2025 12:[address] [facility] LABComment: The [place] Diabetes Association (ADA) provides guidance for cutoff values for fasting glucose andrandom glucose. The ADA defines fasting as no [...] Standards of Medical Care in Diabetes 2016, [place] [employer] Association. Diabetes Care. 2016.39(Suppl 1). BUN32(H)7 - 21 mg/dL01/17/2025 12:[address] [facility] Creatinine2.46(H)0.58 - 0.96 mg/dL01/17/2025 12:[address] [facility] DRHOghxqx801827 - 144 mmol/L01/17/2025 12:[address] [facility] LABPotassium4.03.7 - 5.1 mmol/L01/17/2025 12:[address] [facility] DGUYektcjey53892 - 107 mmol/L01/17/2025 12:[address] [facility] YYUZI40113 - 30 mmol/L01/17/2025 12:[address] [facility] LABAnion Gap98 - 15 mmol/L01/17/2025 12:[address] [facility] LABCalcium, Total9.18.5 - 10.2 mg/dL01/17/2025 12:[address] [facility] LABEstimated Glomerular Filtration Rate24(L)>=60 mL/min/1.73m 01/17/2025 12:[address] [facility] LABComment:Estimated Glomerular Filtration Rate (eGFR) is calculated using the 2020 CKD-EPI creatinine equation. This equation utilizes serum creatinine, sex, and age as parameters. The creatinine assay has traceable calibration to isotope dilution- mass spectrometry. Refer to KDIGO guidelines for clinical interpretation. In patients with unstable renal function, e.g. those with acute kidney injury, the eGFRmay not accurately reflect actual GFR.Specimen (Source)Anatomical Location / LateralityCollection Method / VolumeCollection TimeReceived TimeBloodBLOOD SPECIMEN / UnknownVenipuncture / Irsvqoo7401/16/2025 10:53 PM EDT01/16/2025 11:44 PM EDT Narrative Authorizing ProviderResult TypeResult StatusBevannessa Nieto MDLABORATORYFinal ResultPerforming OrganizationAddressCity/State/ZIP CodePhone Number [facility] [address] [facility] [place] [id number], * (ABNORMAL) HEMOGLOBIN A1C (01/13/2025 10:39 PM EDT)ComponentValueRef RangeTest MethodAnalysis TimePerformed AtPathologist SignatureHemoglobin A1C6.1(H)4.3 - 5.6 %01/14/2025 5:36 PM EDTCWAYNE [facility]ALTH[facility] LABComment:[place] Diabetes Association guidelines indicate that patients with HgbA1c in the range 5.7-6.4% are at increased risk for development of diabetes, and intervention by lifestyle modification may be beneficial. HgbA1c greater or equal to 6.5% is considered diagnostic of diabetes.Estimated Average Glucose 128mg/dL01/14/2025 5:[address] [facility] LABComment:eAG: (Estimated average glucose) is a calculated value from HgbA1c and is technical account representative of the average blood glucose level in the last 2-3 month period.Specimen (Source)Anatomical Location / LateralityCollection Method / VolumeCollection TimeReceived TimeBloodBLOOD SPECIMEN / UnknownVenipuncture / Banylur6301/13/2025 10:39 PM EDT01/13/2025 11:14 PM EDT Narrative Authorizing ProviderResult TypeResult StatusRosa Cazares APRN.CNPLABORATORY Final ResultPerforming OrganizationAddressCity/State/ZIP CodePhone Number [facility] [address] [facility] [address] [place] [address], from Last 3 Months or Most Recently Relevant to Health Maintenance Care Teams Team MemberRelationshipSpecialtyStart DateEnd Date Dawood Clemente [address] [address] ReferringGeneral Surgery03/07/24 Allison Melgar MD [address] [place] [address] [facility] [place] [address] [facility]04/06/25
[2025-10-20 10:27] LABS: Hematocrit 39.4 % (36.0-48.0); Hemoglobin 12.6 g/dL (12.0-16.0); Mean Corpuscular HGB Conc 32.0 g/dL (29.9-35.2); Mean Corpuscular Hemoglobin 24.9 pg (26.7-34.0); Mean Corpuscular Volume 77.9 fL (81.0-99.0); Platelet Count 256 10^3/uL (150-450); Red Blood Count 5.06 10^6/uL (4.20-5.40); White Blood Count 5.7 10^3/uL (4.0-11.0)
[2025-10-20 10:50] LABS: Glucose Urine UA NEGATIVE (NEGATIVE)
[2025-10-20 11:00] LABS: Iron 57.0 ug/dL (50.0-170.0); Percent Iron Saturation 18.6 %; Total Iron Binding Capacity 307.0 ug/dL (250.0-450.0)
[2025-10-20 11:33] LABS: Cast Seen? NONE SEEN #/LPF (NONE SEEN); Crystals Seen? None Seen #/HPF (None Seen)
[2025-10-20 11:42] LABS: Protein Creatinine Ratio Urine 2.34; Total Protein Urine Random 227.4 mg/dL (<=11.9)
[2025-10-20 11:46] LABS: Albumin Level 3.2 g/dL (3.4-5.0); Anion Gap 12.8; Blood Urea Nitrogen 32.0 mg/dL (7.0-18.0); Calcium 9.2 mg/dL (8.5-10.1); Carbon Dioxide 25.9 mmol/L (21.0-32.0); Chloride 106 mmol/L (98-107); Estimated GFR (African America 32 (>=60 mL/min/1.73m^2); Estimated GFR (Non-African Ame 27 (>=60 mL/min/1.73m^2); Glucose 136 mg/dL (74-106); Magnesium 1.9 mg/dL (1.8-2.4); Potassium 4.7 mmol/L (3.5-5.1); Sodium 140 mmol/L (136-145); Uric Acid 8.8 mg/dL (2.6-6.0)
[2025-10-20 13:28] LABS: Ferritin 65.0 ng/mL (8.0-252.0)
== END 2025-10-20 09:51 | disposition home or self-care (01) ==
LOC: LAB 09:53
PROVIDERS: PCP Nurse Practitioner Family; Visit Provider Internal Medicine
DX: E88.810 Metabolic syndrome (principal); E83.42 Hypomagnesemia; N18.4 Chronic kidney disease, stage 4 (severe); N25.81 Secondary hyperparathyroidism of renal origin; I12.9 Hypertensive chronic kidney disease with stage 1 through stage 4 chronic kidney disease, or unspecified chronic kidney disease; E11.22 Type 2 diabetes mellitus with diabetic chronic kidney disease
CPT/HCPCS: 36415; 80069; 81001; 82306; 82570; 82728; 83540; 83550; 83735; 83970; 84156; 84550; 85027